=== PATIENT | female | born 1985 | race Caucasian/White ===

== ENCOUNTER → 2016-11-25 | Outpatient (CLI) | payer MEDICAID ==
[~2016-11-25] MED LIST: AC325T PO; ACHD5005 PO; ALBU17AE3 IH; AMIT50TA3 PO; ASPI-586 PO; BIRTH CONTROL PILL PO; BUTA1TAB46 PO; CETI10TA17 PO; CIPR500T4 PO; CITA20TA7 PO; CLIN-62 PO; CLN2C40 PV; CPR500T PO; CYCL10TA9 PO; DICL18CA PO; DICY10CA12 PO; DIVA250T2 PO; DIVA500T15 PO; FAMO-119 PO; FLT05NA16 NSEACH; FLUC100T6 PO; FLUO20CA42 PO; FLUT16SP22 NSEACH; HCT25T PO; HYDR-2856 PO; HYDR-3816; HYDR1TAB PO; IBP800T PO; LEVO200T30 PO; LEVO300T5 PO; LVT.15T PO; LVT.1T PO; MELO15TA39 PO; METR500T21 PO; MONT10TA24 PO; MPR22TI TP; MTP50T PO; MULT-963 PO; MULT1TAB69 PO; MUPI1OIN5 NS; NITR100C3 PO; OMEP-10 PO; ONDA4TAB11 PO; ONDA8TAB13 PO; ONDA8TAB9 PO; ONDAN4ODT PO; ONDN4T PO; ORPH100T PO; OXYC-12 PO; PANT40TA3 PO; PREN1TAB39 PO; PROM25SU10 PR; RIZA10TA23 PO; SILV25CR TP; SULF1TAB38 PO; TRAM50TA2 PO; TRM50T PO; VARE1TAB17 PO; VENL150T4 PO; ZLP10T PO; ZOLP10TA5; baclofen
--- NOTE | 2016-11-26 08:15 | ECHOCARDIOGRAPHY REPORT ---
PROCEDURE PHYSICIAN: HONG SIMPSON DATE OF PROCEDURE: 11/25/2016 TWO DIMENSIONAL ECHOCARDIOGRAM REPORT PRIMARY PHYSICIAN: OTHER PHYSICIAN: REFERRING PHYSICIAN: Dr. Mcfadden ORDERING PHYSICIAN: INDICATION FOR THE PROCEDURE: Chest pain. MEASUREMENTS DERIVED VALUES LV DIAMETER (LAX) NORMALS NORMALS Diastolic 3.3 (3.6-5.2) Eject. Fract. 60% (60%+/-6%) Systolic (2.3-3.9) Diastolic Vol. % Shortening (0.22-0.42) Systolic Vol. Aortic Root IVS THICKNESS Diastolic 1.1 (0.6-1.1) LVPW THICKNESS Diastolic 1.1 (0.6-1.1) LA DIAMETER Systolic 3.4 (2.1-3.7) FINDINGS: 1. Technical quality is good. 2. The left ventricle is normal in size with normal contractility. Systolic function appeared to be normal. Estimated ejection fraction 60%. 3. The left atrium is normal in size. No clot or thrombus were seen within the left atrium. 4. The right atrium and right ventricle are normal in size. No clot or thrombus were seen within the right side. 5. Mitral valve is normal in morphology with mild mitral regurgitation noted by color Doppler flow. No mitral valve prolapse. No mitral valve stenosis. 6. Aortic valve is trileaflet with normal opening and closing pattern. No significant aortic stenosis or regurgitation was seen. 7. Tricuspid valve is normal in morphology with mild tricuspid regurgitation noted by color Doppler flow. Doppler across tricuspid valve estimated pulmonary artery pressure of 8+ right atrial pressure. 8. Pulmonic valve is functioning normally. 9. A small pericardial effusion with no hemodynamic significance was noted. IN CONCLUSION: 1. Normal left ventricular size and systolic function. Estimated ejection fraction 60%. 2. Mild mitral and tricuspid regurgitation. 3. Estimated pulmonary artery pressure of 15 mmHg. 4. Small pericardial effusion of no hemodynamic significance noted on this study, improved when compared to the study of 2016. Job ID: [id number] Dictated Date: 11/25/2016 18:18:49 Watch Repair Person Date: 11/26/2016 08:12:17 / jordan
== END ==
LOC: CARD 08:26
PROVIDERS: ATTEND Physician Assistant
DX: E05.00 Thyrotoxicosis with diffuse goiter without thyrotoxic crisis or storm (principal); I10 Essential (primary) hypertension; E78.1 Pure hyperglyceridemia; R07.9 Chest pain, unspecified
CPT/HCPCS: 93306

== ENCOUNTER 2016-12-17 14:57 | Emergency (ER) | payer MEDICAID ==
[~2016-12-17] VITALS: Ht 172.7 cm; Wt 122.5 kg
[~2016-12-17 14:57] MED LIST changes: -ZOLP10TA5
[2016-12-17] MEDS ORDERED: ZOLP10TA5 (15:34)
--- NOTE | 2016-12-17 16:19 | ED Headache ---
General Chief Complaint: Head/Cervical Problems Stated Complaint: MIGRAINE Nursing Triage Note: c/o migraine x 3 days Nursing Sepsis Screen: No Definite Risk Source: patient Exam Limitations: no limitations History of Present Illness Time seen by provider: 16:18 Initial Comments To ER with frontal migraine for 3 days. She has a history of frequent migraines and this was similar to previous. No injuries. No fevers or chills. Timing/Duration: other (3 days) Severity/Quality: pressure Location: frontal Prior Headaches/Recent Trauma: frequent headaches Associated Symptoms: denies symptoms Allergies and Home Medications Allergies Coded Allergies: Bacitracin Zinc (Unverified Allergy, Intermediate, HIVES, RESP PROBLMEMS, 01/25/11) Penicillins (Unverified Allergy, Intermediate, RASH,, 01/25/11) bacitracin (Unverified Allergy, Intermediate, HIVES, RESP PROBLMEMS, ) gramicidin D (Unverified Allergy, Intermediate, HIVES, RESP PROBLMEMS, 05/28) methylprednisolone sod succ (Unverified Allergy, Intermediate, RESP DIFFICULTY, 01/25/11) neomycin sulfate (Unverified Allergy, Intermediate, HIVES, RESP PROBLMEMS , 01/25/11) polymyxin B (Unverified Allergy, Intermediate, HIVES, RESP PROBLMEMS, 01/25) polymyxin B sulfate (Unverified Allergy, Intermediate, HIVES, RESP PROBLMEMS, 01/25/11) Metronidazole HCl (Unverified Adverse Reaction, Mild, N/V, 01/25/11) metronidazole (Unverified Adverse Reaction, Mild, N/V, 01/25/11) Home Medications Aspirin 81 Mg Tablet.dr, 81 MG PO DAILY, (Reported) Famotidine 20 Mg Tablet, 20 MG PO BID, #30 Ref 0 Prescribed by: BOB CAM on 08/04/16 1254 Fluoxetine HCl 20 Mg Capsule, 20 MG PO DAILY, (Reported) Levothyroxine Sodium 300 Mcg Tablet, 300 MCG PO DAILY, #30 Ref 3 LAST FILLED 10/19/15 #60 Prescribed by: RIVERA GONSALES on 12/31/15 1157 Meloxicam 15 Mg Tablet, 15 MG PO DAILY, (Reported) Montelukast Sodium 10 Mg Tablet, 10 MG PO DAILY PRN for ALLERGIES, (Reported) LAST FILLED 09/21/15 #30 Pantoprazole Sodium 40 Mg Tablet.dr, 40 MG PO DAILY, (Reported) Zolpidem Tartrate 10 Mg Tablet, #30 (Reported) Constitutional: see HPI Eyes: No Symptoms Reported Ears, Nose, Mouth, Throat: no symptoms reported Respiratory: no symptoms reported Cardiovascular: no symptoms reported Genitourinary: no symptoms reported Musculoskeletal: no symptoms reported Skin: no symptoms reported Psychiatric/Neurological: See HPI, Headache Past Biwjaeg-Ewuvgg-Kemrnl Hx Patient Social History Alcohol Use: Denies Use Recreational Drug Use: No Smoking Status: Current Everyday Smoker Recent Foreign Travel: No Contact w/Someone Who Travel: No Recent Infectious Disease Expo: No Recent Hopitalizations: Yes Immunizations Up To Date Tetanus Booster (TDap): More than 5yrs Date of Pneumonia Vaccine: December 28, 2012 Date of Influenza Vaccine: Apr 18, 2011 Seasonal Allergies Seasonal Allergies: Yes Surgeries HX Surgeries: Yes (ovarian cyst) Surgeries: Orthopedic Respiratory Hx Respiratory Disorders: Yes Respiratory Disorders: Emphysema Cardiovascular Hx Cardiac Disorders: No Cardiac Disorders: Chronic Edema/Swelling, Hypertension Neurological Hx Neurological Disorders: Yes (PT STATES SHE ALWAYS HAS NUMBNESS AND TINGLING ALL OVER HER BODY OFF AND ON) Neurological Disorders: Headaches /Migraines, Neuropathy 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 System Hx 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 Disorders: No 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 Genitourinary Hx Genitourinary Disorders: Yes Gastrointestinal Hx Gastrointestinal Disorders: Yes Gastrointestinal Disorders: Crohns Disease Musculoskeletal Hx Musculoskeletal Disorders: Yes (CHRONIC GENERALIZED PAIN ) Musculoskeletal Disorders: Chronic Back Pain Endocrine Hx Endocrine Disorders: Yes (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) Endocrine Disorders: Hypothyroidsim HEENT HX ENT Disorders: No Cancer Hx Cancer: No Psychosocial Hx Psychiatric Problems: Yes Behavioral Health Disorders: Sleep Difficulties, Anxiety, Depression Integumentary HX Skin/Integumentary Disorder: No Blood Transfusions Hx Blood Disorders: No Family Medical History Significant Family History: No Pertinent Family Hx Family Medial History: Asthma son CANC 19 MOTHER (CANCER OF GALLBLADDER AND UTERUS) Diabetes mellitus G8 SISTER FH: cancer Hypertension 19 FATHER Psychosocial problem G8 SISTER (ANXIETY) Thyroid disease 19 MOTHER (HYPERTHYROID) Physical Exam Vital Signs Vital Sign - Last 12Hours 12/17/16 15:31 Temp 99.2 Pulse 88 Resp 18 B/P (MAP) 152/105 Pulse Ox 95 O2 Delivery Room Air Capillary Refill : Less Than 3 Seconds General Appearance: WD/WN, no apparent distress HEENT: PERRL/EOMI, normal ENT inspection Neck: non-tender, full range of motion Respiratory: no respiratory distress, no accessory muscle use Gastrointestinal: non tender, soft Extremities: normal range of motion, non-tender Psychiatric: alert, oriented x 3 Crainal Nerves: normal hearing, normal speech, PERRL Skin: normal color, warm/dry Progress/Results/Core Measures Results/Orders My Orders Orders - PHIL MARK APRN Prochlorperazine Injection (Compazine In (12/17/16 16:30) Diphenhydramine Injection (Benadryl Inje (12/17/16 16:30) Ketorolac Injection (Toradol Injection) (12/17/16 16:30) Vital Signs/I&O Vital Sign - Last 12Hours 12/17/16 15:31 Temp 99.2 Pulse 88 Resp 18 B/P (MAP) 152/105 Pulse Ox 95 O2 Delivery Room Air Blood Pressure Mean: 121 Departure Impression Impression: Primary Impression: Headache Disposition: 01 HOME, SELF-CARE Condition: Improved Departure-Patient Inst. Decision time for Depature: 16:26 Referrals: NO,LOCAL PHYSICIAN (PCP/Family) Primary Care Physician Patient Instructions: Headache, Adult (DC) Add. Discharge Instructions: 1. Return to ER for any worsening See your doctor next week All discharge instructions reviewed with patient and/or family. Voiced understanding. PHIL MARK APRN December 17, 2016 16:19
[2016-12-17] MEDS ORDERED: diphenhydrAMINE 50 MG/ML INJ (BENADRYL) IM ONE (16:30)
[2016-12-17] MEDS ORDERED: KETOROLAC 60 MG/2 ML VIAL IM ONE (16:30)
[2016-12-17] MEDS ORDERED: PROCHLORPERAZINE 10 MG/2ML INJ (COMPAZINE) IM ONE (16:30)
[2016-12-17 18:23] VITALS: BP 132/98
== END 2016-12-17 18:23 | disposition home or self-care (01) ==
LOC: EDUNIT# 14:57 → ER 15:00
DX: R51 Headache (principal); I10 Essential (primary) hypertension; F17.210 Nicotine dependence, cigarettes, uncomplicated; Z79.82 Long term (current) use of aspirin; Z79.899 Other long term (current) drug therapy
CPT/HCPCS: 96372; 99285

== ENCOUNTER → 2017-01-18 | Emergency (ER) | payer MEDICAID ==
[~2017-01-18] MED LIST changes: +ZOLP10TA5
== END | disposition left against medical advice (07) ==
LOC: EDUNIT# 15:19 → ER 15:20
DX: G43.909 Migraine, unspecified, not intractable, without status migrainosus (principal); Z53.21 Procedure and treatment not carried out due to patient leaving prior to being seen by health care provider

== ENCOUNTER 2017-02-18 15:37 | Emergency (ER) | payer OTHER, MEDICAID ==
[~2017-02-18] VITALS: Ht 172.7 cm; Wt 117.0 kg
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
[2017-02-18] MEDS ORDERED: HYDROcodone/APAP 7.5 MG/325 MG (LORTAB, LORCET PLUS) TABLET PO STA (17:43)
[2017-02-18] MEDS ORDERED: CYCLOBENZAPRINE 10 MG (FLEXERIL) TAB PO STA (17:43)
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
[2017-02-18] MEDS ORDERED: CYCL10TA9 PO (18:02)
[2017-02-18] MEDS ORDERED: TRAM50TA2 PO (18:02)
[2017-02-18] MEDS ORDERED: RX-CYCLOBENZAPRINE 10 MG (FLEXERIL) TAB PPK#3 PO STA (18:05)
[2017-02-18] MEDS ORDERED: RX-HYDROCODONE/APAP 5/325 MG #4 TAB PK PO PRN (18:15)
[2017-02-18 18:21] VITALS: BP 136/88
--- OUTSIDE RECORDS SUMMARY | 2017-02-19 16:27 | XMS REPORT | Continuity of Care Document ---
Author Author [facility] Organization [facility] Address Unknown Phone Unavailable Care Team Providers Care Dealer Development Manager Name Role Phone Jaja Berman PCP [phone] Source Comments Some departments are not documenting in the electronic medical record. If you do not see the information that you expected, contact Release of Information in the Health Information Management department at [phone] for further assistance in locating additional records.[facility] Active Allergies and Adverse Reactions Not on File Current Medications Not on file Active Problems Not on file Social History Tobacco Use Types Packs/Day Years Used Date Never Assessed Plan of Care Health Maintenance Due Date Last Done Comments Physical (Comprehensive) 1993 Exam Pertussis Vaccine 1997 Tetanus Vaccine 2003 Cervical Cancer Screening 2007 Influenza Vaccine 04/18/2017 Results from Last 3 Months Not on file
== END 2017-02-18 18:21 | disposition home or self-care (01) ==
LOC: EDUNIT# 15:37 → ER 15:39
DX: S09.90XA Unspecified injury of head, initial encounter (principal)
CPT/HCPCS: 70450; 73030; 99283

== ENCOUNTER → 2017-07-07 | Outpatient (CLI) | payer MEDICAID, OTHER ==
[~2017-07-07] MED LIST changes: +CATHETER FLUSH 10 ML SYR IV PRN; +morphine INJ 10 MG/ML 1ML (SYR OR VIAL) ONE; +morphine INJ 4 MG/ML 1 ML (VIAL/SYRINGE) IVP PRN
--- NOTE | 2017-07-07 14:54 | Diagnostic Imaging Report ---
EXAMINATION: HIDA without EF measurements Indication: Abdominal pain TECHNIQUE: After the intravenous administration of 4.7 mCi of Tc 99m Choletec, imaging over the abdomen was obtained. This was followed by administration of morphine 4 mg IV after initial nonvisualization of the gallbladder for one hour with additional 1 mCi of the radiotracer given at the same time. FINDINGS: There is homogeneous uptake in the liver with prompt bile duct without gallbladder filling seen initially. Subsequently the gallbladder from started filling after morphine administration at 65 minutes. Bowel activity is seen at 20 minutes. IMPRESSION: There is delayed gallbladder filling which may relate to chronic cholecystitis or biliary dyskinesia. No evidence of acute cholecystitis. Correlate clinically. Dictated by: Dictated on workstation # [id number]
== END ==
LOC: CARD 10:14
PROVIDERS: ATTEND Surgery
DX: K82.8 Other specified diseases of gallbladder (principal)
CPT/HCPCS: 78226

== ENCOUNTER 2017-07-09 05:41 | Outpatient (CLI) | payer OTHER ==
[~2017-07-09] VITALS: Ht 172.7 cm; Wt 121.6 kg
[~2017-07-09 05:41] MED LIST changes: -CATHETER FLUSH 10 ML SYR IV PRN; -morphine INJ 10 MG/ML 1ML (SYR OR VIAL) ONE; -morphine INJ 4 MG/ML 1 ML (VIAL/SYRINGE) IVP PRN
[2017-07-09] MEDS ORDERED: LEVO300T5 PO (10:19)
== END 2017-07-09 10:36 ==
LOC: PREOP 05:41
PROVIDERS: ATTEND Surgery
DX: Z01.818 Encounter for other preprocedural examination (principal); K82.8 Other specified diseases of gallbladder; K21.9 Gastro-esophageal reflux disease without esophagitis

== ENCOUNTER 2017-07-14 11:40 | Day surgery (SDC) | payer OTHER ==
[~2017-07-14] VITALS: Ht 172.7 cm; Wt 121.6 kg
[2017-07-14 11:44] VITALS: BP 155/96
[2017-07-14] MEDS ORDERED: CLINDAMYCIN 600 MG/NS 50 ML IVPB IV ONE ×2 (12:30)
[2017-07-14] MEDS ORDERED: fentaNYL INJECTION 100 MCG/2 ML AMP IV ONE ×2 (13:00→14:30)
[2017-07-14] MEDS ORDERED: FAMOTIDINE 20MG/2ML IV (PEPCID) IV ONE (13:00)
[2017-07-14] MEDS ORDERED: LACTATED RINGERS 1,000 ML IV PRN ×2 (13:00→14:16)
[2017-07-14] MEDS ORDERED: BUP/EPI 0.5% 1:200,000 (MARCAINE) 10ML VIAL IJ ONE (13:04)
[2017-07-14] MEDS ORDERED: LIDOCAINE PF 2% 5 ML (XYLOCAINE) VIAL ONE (13:22)
[2017-07-14] MEDS ORDERED: proPOfol 200 MG/20 ML (DIPRIVAN) VIAL IV ONE (13:22)
[2017-07-14] MEDS ORDERED: ONDANSETRON 4 MG/2 ML (SDV) Z0FRAN ONE (13:22)
[2017-07-14] MEDS ORDERED: SUCCINYLCHOLINE INJ 100 MG/5 ML SYR ONE (13:22)
[2017-07-14] MEDS ORDERED: ROCURONIUM 50 MG/5 ML (ZEMURON) VIAL IV ONE ×2 (13:22→15:03)
[2017-07-14] MEDS ORDERED: fentaNYL INJECTION 100 MCG/2 ML AMP ONE (13:23)
[2017-07-14] MEDS ORDERED: MIDAZOLAM 2 MG/2 ML (VERSED) VIAL ONE (13:23)
[2017-07-14] MEDS ORDERED: ONDANSETRON 4 MG/2 ML (SDV) Z0FRAN IV ONE (14:30)
[2017-07-14] MEDS ORDERED: LACTATED RINGERS 1,000 ML IV ONE (14:50)
[2017-07-14] MEDS ORDERED: NEOSTIGMINE (BLOXIVERZ ) 1 MG/1ML 10 ML VIAL ONE (16:02)
[2017-07-14] MEDS ORDERED: GLYCOPYRROLATE 0.2 MG/ML (ROBINUL) 2 ML VIAL ONE (16:02)
[2017-07-14] MEDS ORDERED: morphine INJ 10 MG/ML 1ML (SYR OR VIAL) ONE (16:08)
--- NOTE | 2017-07-14 16:13 | Progress Note-Pre Operative ---
Pre-Operative Progress Note H&P Reviewed The H&P was reviewed, patient examined and no changes noted. Date Seen by Provider: Jul 14, 2017 Time Seen by Provider: 14:00 Date H&P Reviewed: Jul 14, 2017 Time H&P Reviewed: 14:00 Pre-Operative Diagnosis: GERD, biliary dyskinesia JAKOB CRUZ MD Jul 14, 2017 4:12 pm
--- NOTE | 2017-07-14 16:17 | Progress Note-Post Operative ---
Post-Operative Progess Note Surgeon (s)/Stone Unloader (s) Surgeon JAKOB CRUZ MD Stone Unloader: none Pre-Operative Diagnosis GERD, biliary dyskinesia Post-Operative Diagnosis biliary dyskinesia, reflux esophagitis(class B), small HH(1.5cm), moderate gastritis. Procedure & Operative Findings Date of Procedure 07/14/17 Procedure Performed/Findings laparoscopic cholecystectomy. EGD with bx. Anesthesia Type GET Estimated Blood Loss Estimated blood loss (mL): minimal Specimens/Packing Specimens Removed gallbladder, GE jxn, antrum JAKOB CRUZ MD Jul 14, 2017 4:17 pm
[2017-07-14] MEDS ORDERED: TRAM50TA2 PO (16:19)
--- NOTE | 2017-07-14 16:20 | Discharge Inst-Surgical ---
D/C Lap Instructions-ANTHONY New, Converted, or Re-Newed RX: RX on Chart Follow Up Appt in 2 weeks Activity as tolerated No driving for 24 hours No driving while on pain medications Incentive Spirometry use every 2 hours while awake Regular Diet Symptoms to Report: Fever over 101 degree F, Nausea/Vomiting Infection Signs and Symptoms to report: Increased redness, Foul odor of wound, Increased drainage Bathing instructions: May shower Operative Area Clean/Dry; Keep incision clean/dry If any problems/questions: Contact your physician or go to Emergency Room JAKOB CRUZ MD Jul 14, 2017 4:20 pm
[2017-07-14] MEDS ORDERED: SEVOFLURANE (ULTANE) 15 ML INHAL SOLN ONE (16:23)
[2017-07-14] MEDS: morphine INJ 10 MG/ML 1ML (SYR OR VIAL) IVP PRN ×3 (16:28→16:38)
[2017-07-14] MEDS ORDERED: HYDROcodone/APAP 5 MG/325 MG (LORTAB) TAB PO ONE (16:30)
[2017-07-14] MEDS ORDERED: ONDANSETRON 4 MG/2 ML (SDV) Z0FRAN IVP PRN ×2 (16:30)
[2017-07-14] MEDS ORDERED: morphine INJ 10 MG/ML 1ML (SYR OR VIAL) IVP PRN (16:30)
[2017-07-14] MEDS ORDERED: ACETAMINOPHEN 325 MG TABLET/CAPLET (TYLENOL) PO PRN (16:30)
[2017-07-14] MEDS ORDERED: fentaNYL INJECTION 100 MCG/2 ML AMP IVP PRN (16:30)
[2017-07-14 17:10] VITALS: BP 128/84
[2017-07-14 17:40] VITALS: BP 146/88
[2017-07-14 18:10] VITALS: BP 140/82
[2017-07-14 18:15] VITALS: BP 140/82
--- NOTE | 2017-07-15 00:56 | OPERATIVE REPORT ---
DATE OF SERVICE: 07/14/2017 ATTENDING PRIMARY CARE PHYSICIAN: Dr. Mcfadden. PREOPERATIVE DIAGNOSIS: Symptomatic biliary dyskinesia. GERD POSTOPERATIVE DIAGNOSES: Symptomatic biliary dyskinesia, reflux esophagitis class B, small hiatal hernia approximately 1.5 to 2 cm in size, moderate gastritis. PROCEDURES: Laparoscopic cholecystectomy and EGD with biopsy. SURGEON: Jose Echevarria M.D. ANESTHESIA: General endotracheal. ESTIMATED BLOOD LOSS: Minimal. FINDINGS: Mild gallbladder wall inflammation and dilatation. Reflux esophagitis class B. No strictures. Small hiatal hernia approximately 1.5 to 2 cm in size. DISPOSITION: The patient tolerated the procedure well. INDICATION FOR PROCEDURE: The patient is a 31-year-old female with multiple medical problems. First, she reports in 2009, she developed hyperthyroidism and underwent radioactive iodine testing and diagnosed with Graves disease and treated medically. Since that time, she has become hypothyroid. She states that during this time frame, she has been fatigued and gained a significant amount of weight. She is on high-dose Levothyroxine at 350 mcg daily. She reports in the past two years, she has had right upper abdominal quadrant pain usually after meals. She would also do self testing and take in greasy foods and would have reproduction of symptoms. She underwent an ultrasound, which did not show any gallstones. She then underwent a HIDA scan, which showed a normal ejection fraction; however, would have a severe reproduction of symptoms after the administration of a Kinevac analog. This is consistent with a biliary dyskinesia. She also has had issues with reflux with epigastric burning sensation and crampy pain usually after spicy or greasy foods as well as [place] based products. She does have risk factors including smoking. DESCRIPTION OF PROCEDURE: The patient was brought to the operating room, laid supine on the table. After adequate IV pain and sedative medications and general endotracheal intubation, the abdomen was prepped and draped in a standard surgical fashion. A 0.5% Marcaine with epinephrine was used to anesthetize the overlying skin in the left upper abdominal quadrant and a transverse skin incision was made using a 15 blade. An 0 silk suture was applied to the medial aspect of the incision for retraction and a Veress needle inserted with a low opening pressure of 0 mmHg and the abdomen was insufflated to 15 mmHg pressure. The Veress needle removed and a 5 mm Xcel trocar placed followed by a 5 mm 45-degree angle laparoscope visualizing the peritoneal cavity. A full quadrant abdominal exploration was performed. There was mild chronic gallbladder wall inflammation as well as a dilated gallbladder identified. No stones identified. What was visualized of the omentum, stomach, liver appeared normal. Under direct visualization, we then proceeded to place a supraumbilical 10-mm port after the skin and peritoneum were anesthetized using 0.5% Marcaine with epinephrine and a transverse skin incision made using a 15-blade. In a similar manner, a right upper abdominal quadrant 5 mm port was placed. The patient was then placed in a reverse Trendelenburg position as well as plane right side up, left side down. The fundus of the gallbladder was then retracted anteriorly and superiorly. The hepatoduodenal ligament was then opened using cautery on the hook instrument as well as blunt dissection. The entire critical view of safety was identified including the triangle of Calot as well as the cystic duct and artery identified going into the gallbladder as well as the cystic plate behind the proximal gallbladder. A timeout was then taken and the cystic duct and artery were then clipped proximally and distally and cut with EndoShears. The gallbladder was then dissected off the liver bed using cautery on the hook instrument with visualization, good hemostasis as well as no leaking ducts of Luschka. The gallbladder was removed through the 10 mm port site using an EndoCatch bag. The 10 mm port site was then closed using a [id number] 0 Vicryl suture on a UR needle. The abdomen was desufflated and the remaining ports removed. All skin incisions were closed using 4-0 Monocryl running subcuticular sutures. The wounds were then cleaned and covered with Dermabond. The patient tolerated the procedure well. We will start IV normal pain medication as well as a clear liquid diet. Once she is tolerating clears and has good pain control with oral pain medications and ambulating well, we will discharge her home. We then proceeded with the EGD portion of the procedure. The mouth piece was applied. The endoscope was then placed in the mouth, visualizing the pharynx and the hypopharyngeal region. The vocal cords, epiglottis and vallecula identified and appeared to be normal and the endotracheal tube was visualized going through the cords. The endoscope was then gently intubated at the esophageal opening and esophagus insufflated. The endoscope was then advanced to the first, second and third portions of the esophagus. At the level of the GE junction, a reflux esophagitis class B identified. There were no ulcers or strictures identified in this region. A biopsy was taken using forceps with visualization of good hemostasis. The endoscope was then easily advanced into the stomach. The endoscope retroflexed, visualizing a small hiatal hernia approximately 1.5 cm in size. There was a moderate severity gastritis noted towards the stomach. There were no formal ulcers, polyps or any neoplasms identified. A biopsy was taken of the stomach antrum with visualization of good hemostasis. The endoscope was then advanced to the pylorus and the first and second portions of the duodenum, which no distal obstructions identified. The endoscope was then slowly withdrawn while taking a second look and suctioning of residual air with no additional findings. The patient tolerated this portion of the procedure well. For her reflux esophagitis, hiatal hernia and gastritis, we will recommend the necessary lifestyle and diet accommodation including small and more frequent meals, avoidance of eating at night as well as head elevation while lying supine. She also needs to avoid smoking, caffeinated beverages, spicy, greasy and acidic foods. We will also start her on Protonix 40 mg daily. 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
== END 2017-07-14 18:15 | disposition home or self-care (01) ==
LOC: SDC 11:40
PROVIDERS: ATTEND Surgery
DX: K82.8 Other specified diseases of gallbladder (principal); K21.0 Gastro-esophageal reflux disease with esophagitis; K44.9 Diaphragmatic hernia without obstruction or gangrene; K29.60 Other gastritis without bleeding; E05.90 Thyrotoxicosis, unspecified without thyrotoxic crisis or storm; J45.909 Unspecified asthma, uncomplicated; F17.210 Nicotine dependence, cigarettes, uncomplicated; Z79.899 Other long term (current) drug therapy; Z88.2 Allergy status to sulfonamides; Z88.0 Allergy status to penicillin; Z88.1 Allergy status to other antibiotic agents; Z88.8 Allergy status to other drugs, medicaments and biological substances
CPT/HCPCS: 84703; 87081

== ENCOUNTER → 2018-07-21 | Outpatient (CLI) | payer MEDICAID, OTHER ==
[~2018-07-21] MED LIST changes: -CITA20TA7 PO; +CITA20TA9 PO; +HYDR-34; -HYDR-3816; +METR-197 PO; -METR500T21 PO
--- NOTE | 2018-07-21 14:57 | Diagnostic Imaging Report ---
PROCEDURE: US Non-ob pelvis comp/trans. TECHNIQUE: Multiple realtime grayscale images were obtained of the pelvis in various projections endovaginally. Transabdominal imaging was also performed. INDICATION: Menorrhagia. The uterus measures 7.9 x 5.6 x 4.3 cm. Endometrium is 5 mm thickness. No myometrial mass is seen. Ovaries cannot be visualized, likely owing to overlying bowel gas. No adnexal mass or free fluid is seen. There are small cervical nabothian cyst. Impression: Nonvisualized ovaries. The study is otherwise unremarkable. Dictated by: Dictated on workstation # [id number]
== END ==
LOC: RAD 10:13
PROVIDERS: ATTEND Obstetrics & Gynecology
DX: N92.0 Excessive and frequent menstruation with regular cycle (principal); N94.5 Secondary dysmenorrhea
CPT/HCPCS: 76830; 76856

== ENCOUNTER 2018-07-27 11:09 | Emergency (ER) | payer MEDICAID ==
[~2018-07-27] VITALS: Ht 172.7 cm; Wt 119.3 kg
--- OUTSIDE RECORDS SUMMARY | 2018-07-27 11:14 | XMS REPORT | Clinical Summary ---
Author Author [facility] Organization [facility] Address Unknown Phone Unavailable Care Team Providers Care Senior Information Security Architect Name Role Phone Jaja Berman MD PCP Source Comments Some departments are not documenting in the electronic medical record. If you do not see the information that you expected, contact Release of Information in the Health Information Management department at [phone] for further assistance in locating additional records.[facility] Allergies Not on File Medications Not on file Active Problems Not on file Social History Date Tobacco Use Types Packs/Day Years Used Never Assessed Sex Assigned at Date Recorded Not on file Industry Job Start Date Occupation Not on file Not on file Not on file Travel End Travel History Travel Start No recent travel history available. Last Filed Vital Signs Not on file Plan of Treatment Health Maintenance Due Date Last Done Comments PHYSICAL (COMPREHENSIVE) 1993 EXAM HIV SCREENING 2001 DTAP/TDAP VACCINES (1 - 2004 Tdap) CERVICAL CANCER SCREENING 2016 INFLUENZA VACCINE 03/18/2018 Results Not on filefrom Last 3 Months
--- OUTSIDE RECORDS SUMMARY | 2018-07-27 11:33 | XMS REPORT | Continuity of Care Document ---
Author Author [facility] Address Unknown Phone Unavailable Allergies Active Description Code Type Severity Reaction Onset Reported/Identified Relationship to Patient Clinical Status Yes BACITRACIN BACITRACIN UNKNOWN Yes FLAGYL FLAGYL MODERATE Yes NEOSPORIN ([id number]) NEOSPORIN (SAROJ-BANDAR-P UNKNOWN Yes PENICILLIN G POTASSIUM PENICILLIN G POTASSI MODERATE Yes BACITRACIN UNKNOWN OTHER Yes FLAGYL MODERATE DERMATOLOGICAL - HIV Yes NEOSPORIN ([id number]) UNKNOWN OTHER Yes PENICILLIN G POTASSIUM MODERATE OTHER Yes SOLU-MEDROL MODERATE OTHER Yes amoxicillin Drug Allergy N/A N/A 11/17/2008 Yes Solu-Medrol Drug Allergy N/A N/A 11/17/2008 Yes amoxicillin Drug Allergy 11/17/2008 Yes Solu-Medrol Drug Allergy 11/17/2008 Yes hydrocortisone topical Drug Allergy N/A N/A 06/16/2009 Yes hydrocortisone Drug Allergy 06/16/2009 Yes hydrocortisone topical Drug Allergy 06/16/2009 Yes Flagyl Drug Allergy N/A N/A 08/22/2011 Yes Neosporin Drug Allergy N/A N/A 08/22/2011 Yes Flagyl Drug Allergy 08/22/2011 Yes Neosporin Drug Allergy 08/22/2011 Yes Penicillins Drug Allergy N/A N/A 05/14/2012 Yes Penicillins Drug Allergy 05/14/2012 Yes bacitracin [id number] Drug Allergy Moderate HIVES, RESP PRO 07/09/2017 Yes Bacitracin Zinc [id number] Drug Allergy Moderate HIVES, RESP PRO 2016 Yes gramicidin D [id number] Drug Allergy Moderate HIVES, RESP PRO 07/09/2017 Yes methylprednisolone sod succ [id number] Drug Allergy Moderate RESP DIFFICULTY 07/09/2017 Yes neomycin sulfate [id number] Drug Allergy Moderate HIVES, RESP PRO 2016 Yes Penicillins [id number] Drug Allergy Moderate RASH, 07/09/2017 Yes polymyxin B [id number] Drug Allergy Moderate HIVES, RESP PRO 07/09/2017 Yes polymyxin B sulfate [id number] Drug Allergy Moderate HIVES, RESP PRO 07/09/2017 Yes metronidazole [id number] Drug Allergy Mild N/V 07/09/2017 Yes Metronidazole HCl [id number] Drug Allergy Mild N/V 07/09/2017 Medications Medication Packaging Start Date Stop Date Route Dosage Sig FENTANYL AMP INJ 100 MCG/2CC MCG 07/15/2016 ONCE&0714 LACTATED RINGERS 1000CC IV BAG INJ 0 ml 07/15/2016 07/22/2016 CONTINUOUSEVERY 0 Hour ONDANSETRON VIAL INJ 4 MG/2CC (ZOFRAN 2CC VIAL) MG 09/09/2016 09/09/2016 ONCE&1817 FENTANYL AMP INJ 100 MCG/2CC MCG 09/09/2016 ONCE&1817 NORMAL SALINE 1000CC IV BAG INJ 0.9 % (NS 1000CC IV BAG) ml 09/09/2016 09/09/2016 ONCE&1817 KETOROLAC VIAL INJ 30 MG/CC (TORADOL VIAL) MG 09/09/2016 09/09/2016 PRN ONCE PROMETHAZINE VIAL INJ 25 MG/CC (PHENERGAN VIAL) MG 09/09/2016 09/09/2016 ONCE&2014 FENTANYL AMP INJ 100 MCG/2CC MCG 09/09/2016 ONCE&2014 FENTANYL INJ 100 MCG/2CC VIAL MCG 03/20/2017 03/20/2017 ONCE&0736 LACTATED RINGERS 1000CC IV BAG INJ ml 03/20/2017 03/21/2017 CONTINUOUSEVERY 0 Hour DICYCLOMINE 2CC AMP INJ 10 MG/CC (BENTYL 2CC AMP) MG 06/02/2017 06/02/2017 ONCE&1022 ONDANSETRON VIAL INJ 4 MG/2CC (ZOFRAN 2CC VIAL) MG 06/02/2017 06/02/2017 ONCE&1022 FENTANYL INJ 100 MCG/2CC VIAL MCG 06/02/2017 06/02/2017 ONCE&1022 ONDANSETRON VIAL INJ 4 MG/2CC (ZOFRAN 2CC VIAL) MG 07/12/2017 07/12/2017 ONCE&0119 NORMAL SALINE 1000CC IV BAG INJ 0.9 % (NS 1000CC IV BAG) ml 07/12/2017 07/27/2017 CONTINUOUSEVERY 0 Hour FENTANYL INJ 100 MCG/2CC VIAL MCG 07/12/2017 07/12/2017 ONCE&0120 FENTANYL INJ 100 MCG/2CC VIAL MCG 07/12/2017 07/12/2017 ONCE&0255 FENTANYL INJ 100 MCG/2CC VIAL MCG 07/12/2017 07/12/2017 ONCE&0255 FENTANYL INJ 100 MCG/2CC VIAL MCG 07/12/2017 07/12/2017 ONCE&0256 KETOROLAC VIAL INJ 30 MG/CC (TORADOL VIAL) MG 10/10/2017 10/10/2017 ONCE&0924 ALPRAZOLAM TAB 0.25 MG (XANAX) MG 10/10/2017 10/10/2017 PRN ONCE KETOROLAC VIAL INJ 30 MG/CC (TORADOL VIAL) MG 03/08/2018 03/08/2018 ONCE&1731 FLUCONAZOLE TAB 150 MG (DIFLUCAN) MG 07/18/2018 07/18/2018 ONCE&1110 DIPHENHYDRAMINE VIAL INJ 50 MG/CC (BENADRYL VIAL) MG 07/18/2018 07/18/2018 PRN ONCE Problems Date Dx Coded Attending Type Code Diagnosis Diagnosed By 01/26/2008 Ot 785.1 03/29/2008 ADILIA WHYTE DO 242.90 Hyperthyroidism Nos 03/29/2008 242.90 Hyperthyroidism Nos 03/29/2008 242.90 Hyperthyroidism Nos 03/29/2008 ADILIA WHYTE DO 242.90 Hyperthyroidism Nos 03/29/2008 ADILIA WHYTE DO 242.90 Hyperthyroidism Nos 03/29/2008 242.90 Hyperthyroidism Nos 03/29/2008 242.90 Hyperthyroidism Nos 03/29/2008 TIEN KIMBLE PA-C 242.90 Hyperthyroidism Nos 03/29/2008 ANSHUL CARBAJAL APRN 242.90 Hyperthyroidism Nos 03/29/2008 ADILIA WHYTE DO 242.90 Hyperthyroidism Nos 03/29/2008 242.90 Hyperthyroidism Nos 03/29/2008 242.90 Hyperthyroidism Nos 03/29/2008 242.90 Hyperthyroidism Nos 03/29/2008 242.90 Hyperthyroidism Nos 03/29/2008 242.90 Hyperthyroidism Nos 03/29/2008 242.90 Hyperthyroidism Nos 03/29/2008 242.90 Hyperthyroidism Nos 03/29/2008 242.90 Hyperthyroidism Nos 03/29/2008 242.90 Hyperthyroidism Nos 03/29/2008 LENKA DDS, GORDON B 242.90 Hyperthyroidism Nos 03/29/2008 BRIAN DDS, MAX J 242.90 Hyperthyroidism Nos 03/29/2008 WHYTE DO, ADILIA K 242.90 Hyperthyroidism Nos 03/29/2008 MCKEON CASHERO ADMINISTRATIVE MANAGER, DAMIEN N 242.90 Hyperthyroidism Nos 03/29/2008 WHYTE DO, ADILIA K 242.90 Hyperthyroidism Nos 03/29/2008 MCKEON CASHERO ADMINISTRATIVE MANAGER, DAMIEN N 242.90 Hyperthyroidism Nos 03/29/2008 MANJINDER ADMINISTRATIVE MANAGER, RENAN Ortega 242.90 Hyperthyroidism Nos 03/29/2008 WHYTE DO, ADILIA K 242.90 Hyperthyroidism Nos 03/29/2008 BRIAN DDS, WARRNE Kuo 242.90 Hyperthyroidism Nos 03/29/2008 WHYTE DO, ADILIA K 242.90 Hyperthyroidism Nos 03/29/2008 WHYTE DO, ADILIA K 242.90 Hyperthyroidism Nos 03/29/2008 WON CARMONA, MARIUSZ B 242.90 Hyperthyroidism Nos 03/29/2008 APOORVA RAMIREZ, DANIEL A 242.90 Hyperthyroidism Nos 03/29/2008 RAVEN PEREZN, ANSHUL Ortega 242.90 Hyperthyroidism Nos 03/29/2008 YOVANI PEREZN, VONNIE A 242.90 Hyperthyroidism Nos 03/29/2008 WHYTE DO, ADILIA K 242.90 Hyperthyroidism Nos 03/29/2008 VENKATESH ADMINISTRATIVE MANAGER, EMILY Garcia 242.90 Hyperthyroidism Nos 03/29/2008 HOLLY KEVIN, RONNIE E 242.90 Hyperthyroidism Nos 03/29/2008 YOVANI TOVAR, VONNIE A 242.90 Hyperthyroidism Nos 03/29/2008 HOLLY KEVIN, RONNIE E 242.90 Hyperthyroidism Nos 03/29/2008 ZULEIKA DPM, CHRISTOPHER 242.90 Hyperthyroidism Nos 03/29/2008 YOVANI PEREZN, VONNIE A 242.90 Hyperthyroidism Nos 03/29/2008 WHYTE DO, ADILIA K 242.90 Hyperthyroidism Nos 03/29/2008 HOLLY KEVIN, RONNIE E 242.90 Hyperthyroidism Nos 03/29/2008 ZULEIKA DPM, CHRISTOPHER 242.90 Hyperthyroidism Nos 03/29/2008 HOLLY KEVIN, RONNIE E 242.90 Hyperthyroidism Nos 03/29/2008 WHYTE DO, ADILIA K 242.90 Hyperthyroidism Nos 03/29/2008 ZULEIKA DPM, CHRISTOPHER 242.90 Hyperthyroidism Nos 03/29/2008 CHRISTOPHER TO DPM 242.90 Hyperthyroidism Nos 03/29/2008 WHYTE DO, ADILIA K 242.90 Hyperthyroidism Nos 03/29/2008 MANJINDER PEREZN, RENAN R 242.90 Hyperthyroidism Nos 04/08/2008 WHYTE DO, ADILIA K 244.9 Hypothyroidism 04/08/2008 244.9 Hypothyroidism 04/08/2008 244.9 Hypothyroidism 04/08/2008 WHYTE DO, ADILIA K 244.9 Hypothyroidism 04/08/2008 WHYTE DO, ADILIA K 244.9 Hypothyroidism 04/08/2008 244.9 Hypothyroidism 04/08/2008 244.9 Hypothyroidism 04/08/2008 TIEN KIMBLE PA-C 244.9 Hypothyroidism 04/08/2008 ANSHUL CARBAJAL APRN R 244.9 Hypothyroidism 04/08/2008 WHYTE DO, ADILIA K 244.9 Hypothyroidism 04/08/2008 244.9 Hypothyroidism 04/08/2008 244.9 Hypothyroidism 04/08/2008 244.9 Hypothyroidism 04/08/2008 244.9 Hypothyroidism 04/08/2008 244.9 Hypothyroidism 04/08/2008 244.9 Hypothyroidism 04/08/2008 244.9 Hypothyroidism 04/08/2008 244.9 Hypothyroidism 04/08/2008 244.9 Hypothyroidism 04/08/2008 LENKA SANCHEZS, GORDON B 244.9 Hypothyroidism 04/08/2008 BRIAN DDSMAX 244.9 Hypothyroidism 04/08/2008 WHYTE DO, ADILIA K 244.9 Hypothyroidism 04/08/2008 LINDA SIGALA APRN, DAMIEN N 244.9 Hypothyroidism 04/08/2008 WHYTE DO, ADILIA K 244.9 Hypothyroidism 04/08/2008 LINDA SIGALA APRN, DAMIEN N 244.9 Hypothyroidism 04/08/2008 MANJINDER TOVAR RENAN R 244.9 Hypothyroidism 04/08/2008 WHYTE DO, ADILIA K 244.9 Hypothyroidism 04/08/2008 BRIAN DDS, WARREN Kuo 244.9 Hypothyroidism 04/08/2008 WHYTE DO, ADILIA K 244.9 Hypothyroidism 04/08/2008 WHYTE DO, ADILIA K 244.9 Hypothyroidism 04/08/2008 MARIUSZ UPTON LCPC 244.9 Hypothyroidism 04/08/2008 APOORVA RAMIREZ, DANIEL A 244.9 Hypothyroidism 04/08/2008 ANSHUL CARBAJAL APRN R 244.9 Hypothyroidism 04/08/2008 YOVANI ADMINISTRATIVE MANAGER, VONNIE A 244.9 Hypothyroidism 04/08/2008 WHYTE DO, ADILIA K 244.9 Hypothyroidism 04/08/2008 VENKATESH ADMINISTRATIVE MANAGER, EMILY L 244.9 Hypothyroidism 04/08/2008 HOLLY KEVIN, RONNIE E 244.9 Hypothyroidism 04/08/2008 YOVANI ADMINISTRATIVE MANAGER, VONNIE A 244.9 Hypothyroidism 04/08/2008 HOLLY KEVIN, RONNIE E 244.9 Hypothyroidism 04/08/2008 ZULEIKA DPM, CHRISTOPHER 244.9 Hypothyroidism 04/08/2008 YOVANI ADMINISTRATIVE MANAGER, VONNIE A 244.9 Hypothyroidism 04/08/2008 WHYTE DO, ADILIA K 244.9 Hypothyroidism 04/08/2008 HOLLY KEVIN, RONNIE E 244.9 Hypothyroidism 04/08/2008 ZULEIKA DPM, CHRISTOPHER 244.9 Hypothyroidism 04/08/2008 HOLLY KEVIN, RONNIE E 244.9 Hypothyroidism 04/08/2008 WHYTE DO, ADILIA K 244.9 Hypothyroidism 04/08/2008 ZULEIKA DPM, CHRISTOPHER 244.9 Hypothyroidism 04/08/2008 ZULEIKA DPM, CHRISTOPHER 244.9 Hypothyroidism 04/08/2008 JOSUE WHYTE DOA K 244.9 Hypothyroidism 04/08/2008 MANJINDER ADMINISTRATIVE MANAGERPAIGE LordINA R 244.9 Hypothyroidism 04/26/2008 ADILIA WHYTE DO V25.49 Surveillance Of Other Contraceptive Method 04/26/2008 V25.49 Surveillance Of Other Contraceptive Method 04/26/2008 V25.49 Surveillance Of Other Contraceptive Method 04/26/2008 ADILIA WHYTE DO V25.49 Surveillance Of Other Contraceptive Method 04/26/2008 ADILIA WHYTE DO V25.49 Surveillance Of Other Contraceptive Method 04/26/2008 V25.49 Surveillance Of Other Contraceptive Method 04/26/2008 V25.49 Surveillance Of Other Contraceptive Method 04/26/2008 TIEN KIMBLE PA-C V25.49 Surveillance Of Other Contraceptive Method 04/26/2008 ANSHUL CARBAJAL APRN V25.49 Surveillance Of Other Contraceptive Method 04/26/2008 ADILIA WHYTE DO V25.49 Surveillance Of Other Contraceptive Method 04/26/2008 V25.49 Surveillance Of Other Contraceptive Method 04/26/2008 V25.49 Surveillance Of Other Contraceptive Method 04/26/2008 V25.49 Surveillance Of Other Contraceptive Method 04/26/2008 V25.49 Surveillance Of Other Contraceptive Method 04/26/2008 V25.49 Surveillance Of Other Contraceptive Method 04/26/2008 V25.49 Surveillance Of Other Contraceptive Method 04/26/2008 V25.49 Surveillance Of Other Contraceptive Method 04/26/2008 V25.49 Surveillance Of Other Contraceptive Method 04/26/2008 V25.49 Surveillance Of Other Contraceptive Method 04/26/2008 LENKA SANCHEZS, GORDON Qiu V25.49 Surveillance Of Other Contraceptive Method 04/26/2008 BRIAN SANCHEZS, MAX Fraga V25.49 Surveillance Of Other Contraceptive Method 04/26/2008 WHYTE DO ADILIA K V25.49 Surveillance Of Other Contraceptive Method 04/26/2008 MCKEON CASHERO ADMINISTRATIVE MANAGER, DAMIEN N V25.49 Surveillance Of Other Contraceptive Method 04/26/2008 WHYTE DO, ADILIA K V25.49 Surveillance Of Other Contraceptive Method 04/26/2008 MCKEON CASHERO ADMINISTRATIVE MANAGER, DAMIEN N V25.49 Surveillance Of Other Contraceptive Method 04/26/2008 RENAN DUNBAR APRN V25.49 Surveillance Of Other Contraceptive Method 04/26/2008 WHYTE DO ADILIA K V25.49 Surveillance Of Other Contraceptive Method 04/26/2008 BRIAN SANCHEZS, WARREN Kuo V25.49 Surveillance Of Other Contraceptive Method 04/26/2008 WHYTE DO, ADILIA K V25.49 Surveillance Of Other Contraceptive Method 04/26/2008 WHYTE DO ADILIA K V25.49 Surveillance Of Other Contraceptive Method 04/26/2008 MARIUSZ UPTON LCPC V25.49 Surveillance Of Other Contraceptive Method 04/26/2008 APOORVA RAMIREZ, DANIEL A V25.49 Surveillance Of Other Contraceptive Method 04/26/2008 ANSHUL CARBAJAL APRN V25.49 Surveillance Of Other Contraceptive Method 04/26/2008 YOVANIPop TOVAR VONNIE A V25.49 Surveillance Of Other Contraceptive Method 04/26/2008 WHYTE DO ADILIA K V25.49 Surveillance Of Other Contraceptive Method 04/26/2008 EMILY RIDDLE APRN V25.49 Surveillance Of Other Contraceptive Method 04/26/2008 RONNIE BARRERA RN E V25.49 Surveillance Of Other Contraceptive Method 04/26/2008 YOVANI TOVAR VONNIE A V25.49 Surveillance Of Other Contraceptive Method 04/26/2008 RONNIE BARRERA RN E V25.49 Surveillance Of Other Contraceptive Method 04/26/2008 ZULEIKA DPM, CHRISTOPHER V25.49 Surveillance Of Other Contraceptive Method 04/26/2008 VONNIE PINA APRN V25.49 Surveillance Of Other Contraceptive Method 04/26/2008 ADILIA WHYTE DO V25.49 Surveillance Of Other Contraceptive Method 04/26/2008 RONNIE BARRERA RN V25.49 Surveillance Of Other Contraceptive Method 04/26/2008 ZULEIKA DPM, CHRISTOPHER V25.49 Surveillance Of Other Contraceptive Method 04/26/2008 RONNIE BARRERA RN V25.49 Surveillance Of Other Contraceptive Method 04/26/2008 ADILIA WHYTE DO V25.49 Surveillance Of Other Contraceptive Method 04/26/2008 ZULEIKA DPM, CHRISTOPHER V25.49 Surveillance Of Other Contraceptive Method 04/26/2008 ZULEIKA DPM, CHRISTOPHER V25.49 Surveillance Of Other Contraceptive Method 04/26/2008 ADILIA WHYTE DO V25.49 Surveillance Of Other Contraceptive Method 04/26/2008 RENAN DUNBAR APRN V25.49 Surveillance Of Other Contraceptive Method 05/19/2008 ADILIA WHYTE DO 242.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 05/19/2008 242.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 05/19/2008 242.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 05/19/2008 ADILIA WHYTE DO 242.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 05/19/2008 ADILIA WHYTE DO 242.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 05/19/2008 242.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 05/19/2008 242.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 05/19/2008 TIEN KIMBLE PA-C 242.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 05/19/2008 ANSHUL CARBAJAL APRN 242.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 05/19/2008 ADILIA WHYTE DO 242.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 05/19/2008 242.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 05/19/2008 242.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 05/19/2008 242.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 05/19/2008 242.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 05/19/2008 242.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 05/19/2008 242.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 05/19/2008 242.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 05/19/2008 242.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 05/19/2008 242.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 05/19/2008 LENKA SANCHEZS, GORDON B 242.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 05/19/2008 BRIAN SANCHEZS, MAX Fraga 242.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 05/19/2008 WHYTE DO, ADILIA K 242.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 05/19/2008 OCTAVIA KIM APRNCY N 242.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 05/19/2008 WHYTE DO, ADILIA K 242.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 05/19/2008 LINDA SIGALA APRN DAMIEN N 242.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 05/19/2008 RENAN DUNBAR APRN R 242.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 05/19/2008 WHYTE DO, ADILIA K 242.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 05/19/2008 BRIAN SANCHEZS, WARREN Kuo 242.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 05/19/2008 WHYTE DO, ADILIA K 242.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 05/19/2008 WHYTE DO, ADILIA K 242.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 05/19/2008 WON CARMONA, MARIUSZ B 242.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 05/19/2008 APOORVA RAMIREZ, DANIEL Pickens 242.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 05/19/2008 ANSHUL CARBAJAL APRN R 242.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 05/19/2008 VONNIE PINA APRN 242.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 05/19/2008 WHYTE DO, ADILIA K 242.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 05/19/2008 VENKATESH ADMINISTRATIVE MANAGER, EMILY L 242.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 05/19/2008 HOLLY KEVIN, RONNIE E 242.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 05/19/2008 YOVANI TOVAR, VONNIE A 242.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 05/19/2008 HOLLY KEVIN, RONNIE E 242.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 05/19/2008 ZULEIKA DPM, CHRISTOPHER 242.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 05/19/2008 YOVANI TOVAR, VONNIE A 242.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 05/19/2008 WHYTE DO, ADILIA K 242.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 05/19/2008 HOLLY KEVIN, RONNIE E 242.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 05/19/2008 ZULEIKA DPM, CHRISTOPHER 242.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 05/19/2008 HOLLY KEVIN, RONNIE E 242.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 05/19/2008 WHYTE DO, ADILIA K 242.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 05/19/2008 ZULEIKA DPM, CHRISTOPHER 242.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 05/19/2008 ZULEIKA DPM, CHRISTOPHER 242.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 05/19/2008 WHYTE DO, ADILIA K 242.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 05/19/2008 MANJINDER TOVAR RENAN R 242.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 06/06/2008 WHYTE DO, ADILIA K 724.5 Backache Unspecified 06/06/2008 724.5 Backache Unspecified 06/06/2008 724.5 Backache Unspecified 06/06/2008 WHYTE DO, ADILIA K 724.5 Backache Unspecified 06/06/2008 WHYTE DO, ADILIA K 724.5 Backache Unspecified 06/06/2008 724.5 Backache Unspecified 06/06/2008 724.5 Backache Unspecified 06/06/2008 SHYANNE HER, TIEN Fernandez 724.5 Backache Unspecified 06/06/2008 RAVEN TOVAR, ANSHUL R 724.5 Backache Unspecified 06/06/2008 WHYTE DO, ADILIA K 724.5 Backache Unspecified 06/06/2008 724.5 Backache Unspecified 06/06/2008 724.5 Backache Unspecified 06/06/2008 724.5 Backache Unspecified 06/06/2008 724.5 Backache Unspecified 06/06/2008 724.5 Backache Unspecified 06/06/2008 724.5 Backache Unspecified 06/06/2008 724.5 Backache Unspecified 06/06/2008 724.5 Backache Unspecified 06/06/2008 724.5 Backache Unspecified 06/06/2008 GORDON OG DDS 724.5 Backache Unspecified 06/06/2008 MAX TORRES DDS 724.5 Backache Unspecified 06/06/2008 WHYTE DO, ADILIA K 724.5 Backache Unspecified 06/06/2008 LINDA JOHNSONERO ADMINISTRATIVE MANAGER, DAMIEN N 724.5 Backache Unspecified 06/06/2008 WHYTE DO, ADILIA K 724.5 Backache Unspecified 06/06/2008 LINDA JOHNSONERO ADMINISTRATIVE MANAGER, DAMIEN N 724.5 Backache Unspecified 06/06/2008 RENAN DUNBAR APRN R 724.5 Backache Unspecified 06/06/2008 WHYTE DO, ADILIA K 724.5 Backache Unspecified 06/06/2008 WARREN TORRES DDS 724.5 Backache Unspecified 06/06/2008 WHYTE DO, ADILIA K 724.5 Backache Unspecified 06/06/2008 WHYTE DO, ADILIA K 724.5 Backache Unspecified 06/06/2008 MARIUSZ UPTON LCPC B 724.5 Backache Unspecified 06/06/2008 APOORVA RAMIREZ, DANIEL Pickens 724.5 Backache Unspecified 06/06/2008 CECY CARBAJAL APRNIA R 724.5 Backache Unspecified 06/06/2008 VONNIE PINA APRN A 724.5 Backache Unspecified 06/06/2008 WHYTE DO, ADILIA K 724.5 Backache Unspecified 06/06/2008 VENKATESH ADMINISTRATIVE MANAGER, EMILY L 724.5 Backache Unspecified 06/06/2008 HOLLY RN, RONNIE E 724.5 Backache Unspecified 06/06/2008 YOVANI ADMINISTRATIVE MANAGER, VONNIE A 724.5 Backache Unspecified 06/06/2008 HOLLY RN, RONNIE E 724.5 Backache Unspecified 06/06/2008 ZULEIKA DPM, CHRISTOPHER 724.5 Backache Unspecified 06/06/2008 YOVANI ADMINISTRATIVE MANAGER, VONNIE A 724.5 Backache Unspecified 06/06/2008 WHYTE DO, ADILIA K 724.5 Backache Unspecified 06/06/2008 HOLLY RN, RONNIE E 724.5 Backache Unspecified 06/06/2008 ZULEIKA DPM, CHRISTOPHER 724.5 Backache Unspecified 06/06/2008 HOLLY RN, RONNIE E 724.5 Backache Unspecified 06/06/2008 WHYTE DO, ADILIA K 724.5 Backache Unspecified 06/06/2008 ZULEIKA DPM, CHRISTOPEHR 724.5 Backache Unspecified 06/06/2008 ZULEIKA DPM, CHRISTOPHER 724.5 Backache Unspecified 06/06/2008 WHYTE DO, ADILIA K 724.5 Backache Unspecified 06/06/2008 RENAN DUNBAR APRN R 724.5 Backache Unspecified 09/15/2008 WHYTE DO ADILIA K V25.40 Contraceptive Surveillance Unspecified 09/15/2008 V25.40 Contraceptive Surveillance Unspecified 09/15/2008 V25.40 Contraceptive Surveillance Unspecified 09/15/2008 JOSUE WHYTE DOA K V25.40 Contraceptive Surveillance Unspecified 09/15/2008 WHYTE DO, ADILIA K V25.40 Contraceptive Surveillance Unspecified 09/15/2008 V25.40 Contraceptive Surveillance Unspecified 09/15/2008 V25.40 Contraceptive Surveillance Unspecified 09/15/2008 TIEN KIMBLE PA-C V25.40 Contraceptive Surveillance Unspecified 09/15/2008 ANSHUL CARBAJAL APRN V25.40 Contraceptive Surveillance Unspecified 09/15/2008 WHYTE ADILIA DUEÑAS K V25.40 Contraceptive Surveillance Unspecified 09/15/2008 V25.40 Contraceptive Surveillance Unspecified 09/15/2008 V25.40 Contraceptive Surveillance Unspecified 09/15/2008 V25.40 Contraceptive Surveillance Unspecified 09/15/2008 V25.40 Contraceptive Surveillance Unspecified 09/15/2008 V25.40 Contraceptive Surveillance Unspecified 09/15/2008 V25.40 Contraceptive Surveillance Unspecified 09/15/2008 V25.40 Contraceptive Surveillance Unspecified 09/15/2008 V25.40 Contraceptive Surveillance Unspecified 09/15/2008 V25.40 Contraceptive Surveillance Unspecified 09/15/2008 LENKA SANCHEZS, GORDON Qiu V25.40 Contraceptive Surveillance Unspecified 09/15/2008 BRIAN SANCHEZS, MAX Fraga V25.40 Contraceptive Surveillance Unspecified 09/15/2008 WHYTE DO, ADILIA K V25.40 Contraceptive Surveillance Unspecified 09/15/2008 MCKEON CASHERO ADMINISTRATIVE MANAGER, DAMIEN N V25.40 Contraceptive Surveillance Unspecified 09/15/2008 WHYTE DO, ADILIA K V25.40 Contraceptive Surveillance Unspecified 09/15/2008 MCKEON CASHERO ADMINISTRATIVE MANAGER, DAMIEN N V25.40 Contraceptive Surveillance Unspecified 09/15/2008 RENAN DUNBAR APRN R V25.40 Contraceptive Surveillance Unspecified 09/15/2008 WHYTE DO, ADILIA K V25.40 Contraceptive Surveillance Unspecified 09/15/2008 BRIAN SANCHEZS, WARREN Kuo V25.40 Contraceptive Surveillance Unspecified 09/15/2008 WHYTE DO, ADILIA K V25.40 Contraceptive Surveillance Unspecified 09/15/2008 WHYTE DO, ADILIA K V25.40 Contraceptive Surveillance Unspecified 09/15/2008 WON CARMONA, MARIUSZ Qiu V25.40 Contraceptive Surveillance Unspecified 09/15/2008 APOORVA RAMIREZ, DANIEL A V25.40 Contraceptive Surveillance Unspecified 09/15/2008 ANSHUL CARBAJAL APRN V25.40 Contraceptive Surveillance Unspecified 09/15/2008 VONNIE PINA APRN A V25.40 Contraceptive Surveillance Unspecified 09/15/2008 WHYTE DO, ADILIA K V25.40 Contraceptive Surveillance Unspecified 09/15/2008 EMILY RIDDLE APRN V25.40 Contraceptive Surveillance Unspecified 09/15/2008 RONNIE BARRERA RN E V25.40 Contraceptive Surveillance Unspecified 09/15/2008 VONNIE PINA APRN A V25.40 Contraceptive Surveillance Unspecified 09/15/2008 RONNIE BARRERA RN E V25.40 Contraceptive Surveillance Unspecified 09/15/2008 ZULEIKA DPM, CHRISTOPHER V25.40 Contraceptive Surveillance Unspecified 09/15/2008 VONNIE PINA APRN V25.40 Contraceptive Surveillance Unspecified 09/15/2008 WHYTE ADILIA DUEÑAS K V25.40 Contraceptive Surveillance Unspecified 09/15/2008 RONNIE BARRERA RN V25.40 Contraceptive Surveillance Unspecified 09/15/2008 ZULEIKA DPM, CHRISTOPHER V25.40 Contraceptive Surveillance Unspecified 09/15/2008 HOLLY KEVIN, RONNIE E V25.40 Contraceptive Surveillance Unspecified 09/15/2008 WHYTE DO, ADILIA K V25.40 Contraceptive Surveillance Unspecified 09/15/2008 ZULEIKA DPM, CHRISTOPHER V25.40 Contraceptive Surveillance Unspecified 09/15/2008 ZULEIKA DPM, CHRISTOPHER V25.40 Contraceptive Surveillance Unspecified 09/15/2008 WHYTE JOSUE DUEÑASA K V25.40 Contraceptive Surveillance Unspecified 09/15/2008 RENAN DUNBAR APRN V25.40 Contraceptive Surveillance Unspecified 11/17/2008 ADILIA WHYTE DO 244.8 OTHER SPECIFIED ACQUIRED HYPOTHYROIDISM 11/17/2008 244.8 OTHER SPECIFIED ACQUIRED HYPOTHYROIDISM 11/17/2008 244.8 OTHER SPECIFIED ACQUIRED HYPOTHYROIDISM 11/17/2008 ADILIA WHYTE DO 244.8 OTHER SPECIFIED ACQUIRED HYPOTHYROIDISM 11/17/2008 ADILIA WHYTE DO 244.8 OTHER SPECIFIED ACQUIRED HYPOTHYROIDISM 11/17/2008 244.8 OTHER SPECIFIED ACQUIRED HYPOTHYROIDISM 11/17/2008 244.8 OTHER SPECIFIED ACQUIRED HYPOTHYROIDISM 11/17/2008 TIEN KIMBLE PA-C 244.8 OTHER SPECIFIED ACQUIRED HYPOTHYROIDISM 11/17/2008 ANSHUL CARBAJAL APRN 244.8 OTHER SPECIFIED ACQUIRED HYPOTHYROIDISM 11/17/2008 ADILIA WHYTE DO 244.8 OTHER SPECIFIED ACQUIRED HYPOTHYROIDISM 11/17/2008 244.8 OTHER SPECIFIED ACQUIRED HYPOTHYROIDISM 11/17/2008 244.8 OTHER SPECIFIED ACQUIRED HYPOTHYROIDISM 11/17/2008 244.8 OTHER SPECIFIED ACQUIRED HYPOTHYROIDISM 11/17/2008 244.8 OTHER SPECIFIED ACQUIRED HYPOTHYROIDISM 11/17/2008 244.8 OTHER SPECIFIED ACQUIRED HYPOTHYROIDISM 11/17/2008 244.8 OTHER SPECIFIED ACQUIRED HYPOTHYROIDISM 11/17/2008 244.8 OTHER SPECIFIED ACQUIRED HYPOTHYROIDISM 11/17/2008 244.8 OTHER SPECIFIED ACQUIRED HYPOTHYROIDISM 11/17/2008 244.8 OTHER SPECIFIED ACQUIRED HYPOTHYROIDISM 11/17/2008 LENKA DDS, GORDON B 244.8 OTHER SPECIFIED ACQUIRED HYPOTHYROIDISM 11/17/2008 WHITE DDS, MAX J 244.8 OTHER SPECIFIED ACQUIRED HYPOTHYROIDISM 11/17/2008 WHYTE DO, ADILIA K 244.8 OTHER SPECIFIED ACQUIRED HYPOTHYROIDISM 11/17/2008 MCKEON CASHERO ADMINISTRATIVE MANAGER, DAMIEN N 244.8 OTHER SPECIFIED ACQUIRED HYPOTHYROIDISM 11/17/2008 WHYTE DO, ADILIA K 244.8 OTHER SPECIFIED ACQUIRED HYPOTHYROIDISM 11/17/2008 MCKEON CASHERO ADMINISTRATIVE MANAGER, DAMIEN N 244.8 OTHER SPECIFIED ACQUIRED HYPOTHYROIDISM 11/17/2008 MANJINDER ADMINISTRATIVE MANAGER, RENAN R 244.8 OTHER SPECIFIED ACQUIRED HYPOTHYROIDISM 11/17/2008 WHYTE DO, ADILIA K 244.8 OTHER SPECIFIED ACQUIRED HYPOTHYROIDISM 11/17/2008 WHITE DDS, WARREN D 244.8 OTHER SPECIFIED ACQUIRED HYPOTHYROIDISM 11/17/2008 WHYTE DO, ADILIA K 244.8 OTHER SPECIFIED ACQUIRED HYPOTHYROIDISM 11/17/2008 WHYTE DO, ADILIA K 244.8 OTHER SPECIFIED ACQUIRED HYPOTHYROIDISM 11/17/2008 WON CARMONA, MARIUSZ B 244.8 OTHER SPECIFIED ACQUIRED HYPOTHYROIDISM 11/17/2008 APOORVA PHD, DANIEL A 244.8 OTHER SPECIFIED ACQUIRED HYPOTHYROIDISM 11/17/2008 RAVEN ADMINISTRATIVE MANAGER, ANSHUL R 244.8 OTHER SPECIFIED ACQUIRED HYPOTHYROIDISM 11/17/2008 YOVANI ADMINISTRATIVE MANAGER, VONNIE A 244.8 OTHER SPECIFIED ACQUIRED HYPOTHYROIDISM 11/17/2008 WHYTE DO, ADILIA K 244.8 OTHER SPECIFIED ACQUIRED HYPOTHYROIDISM 11/17/2008 VENKATESH ADMINISTRATIVE MANAGER, EMILY L 244.8 OTHER SPECIFIED ACQUIRED HYPOTHYROIDISM 11/17/2008 RONNIE BARRERA RN E 244.8 OTHER SPECIFIED ACQUIRED HYPOTHYROIDISM 11/17/2008 YOVANI PEREZN, VONNIE A 244.8 OTHER SPECIFIED ACQUIRED HYPOTHYROIDISM 11/17/2008 RONNIE BARRERA RN E 244.8 OTHER SPECIFIED ACQUIRED HYPOTHYROIDISM 11/17/2008 ZULEIKA DPM, CHRISTOPHER 244.8 OTHER SPECIFIED ACQUIRED HYPOTHYROIDISM 11/17/2008 YOVANI ADMINISTRATIVE MANAGER, VONNIE A 244.8 OTHER SPECIFIED ACQUIRED HYPOTHYROIDISM 11/17/2008 WHYTE DO, ADILIA K 244.8 OTHER SPECIFIED ACQUIRED HYPOTHYROIDISM 11/17/2008 RONNIE BARRERA RN E 244.8 OTHER SPECIFIED ACQUIRED HYPOTHYROIDISM 11/17/2008 ZULEIKA DPM, CHRISTOPHER 244.8 OTHER SPECIFIED ACQUIRED HYPOTHYROIDISM 11/17/2008 RONNIE BARRERA RN E 244.8 OTHER SPECIFIED ACQUIRED HYPOTHYROIDISM 11/17/2008 WHYTE DO, ADILIA K 244.8 OTHER SPECIFIED ACQUIRED HYPOTHYROIDISM 11/17/2008 ZULEIKA DPM, CHRISTOPHER 244.8 OTHER SPECIFIED ACQUIRED HYPOTHYROIDISM 11/17/2008 ZULEIKA DPM, CHRISTOPHER 244.8 OTHER SPECIFIED ACQUIRED HYPOTHYROIDISM 11/17/2008 ADILIA WHYTE DO K 244.8 OTHER SPECIFIED ACQUIRED HYPOTHYROIDISM 11/17/2008 RENAN DUNBAR APRN R 244.8 OTHER SPECIFIED ACQUIRED HYPOTHYROIDISM 01/27/2009 ADILIA WHYTE DO K 836.50 Closed Dislocation Of Knee Unspecified Part 01/27/2009 836.50 Closed Dislocation Of Knee Unspecified Part 01/27/2009 836.50 Closed Dislocation Of Knee Unspecified Part 01/27/2009 ADILIA WHYTE DO K 836.50 Closed Dislocation Of Knee Unspecified Part 01/27/2009 ADILIA WHYTE DO K 836.50 Closed Dislocation Of Knee Unspecified Part 01/27/2009 836.50 Closed Dislocation Of Knee Unspecified Part 01/27/2009 836.50 Closed Dislocation Of Knee Unspecified Part 01/27/2009 SHYANNE HER, TIEN Fernandez 836.50 Closed Dislocation Of Knee Unspecified Part 01/27/2009 ANSHUL CARBAJAL APRN 836.50 Closed Dislocation Of Knee Unspecified Part 01/27/2009 ADILIA WHYTE DO K 836.50 Closed Dislocation Of Knee Unspecified Part 01/27/2009 836.50 Closed Dislocation Of Knee Unspecified Part 01/27/2009 836.50 Closed Dislocation Of Knee Unspecified Part 01/27/2009 836.50 Closed Dislocation Of Knee Unspecified Part 01/27/2009 836.50 Closed Dislocation Of Knee Unspecified Part 01/27/2009 836.50 Closed Dislocation Of Knee Unspecified Part 01/27/2009 836.50 Closed Dislocation Of Knee Unspecified Part 01/27/2009 836.50 Closed Dislocation Of Knee Unspecified Part 01/27/2009 836.50 Closed Dislocation Of Knee Unspecified Part 01/27/2009 836.50 Closed Dislocation Of Knee Unspecified Part 01/27/2009 LENKA SANCHEZS, GORDON B 836.50 Closed Dislocation Of Knee Unspecified Part 01/27/2009 BRIAN TOSCANO, MAX Fraga 836.50 Closed Dislocation Of Knee Unspecified Part 01/27/2009 ADILIA WHYTE DO 836.50 Closed Dislocation Of Knee Unspecified Part 01/27/2009 LINDA SIGALA APRN, DAMIEN N 836.50 Closed Dislocation Of Knee Unspecified Part 01/27/2009 WHYTE DO, ADILIA K 836.50 Closed Dislocation Of Knee Unspecified Part 01/27/2009 LINDA SIGALA ADMINISTRATIVE MANAGER, DAMIEN N 836.50 Closed Dislocation Of Knee Unspecified Part 01/27/2009 MANJINDER ADMINISTRATIVE MANAGER, RENAN R 836.50 Closed Dislocation Of Knee Unspecified Part 01/27/2009 WHYTE DO, ADILIA K 836.50 Closed Dislocation Of Knee Unspecified Part 01/27/2009 BRIAN DDS, WARREN Kuo 836.50 Closed Dislocation Of Knee Unspecified Part 01/27/2009 WHYTE DO, ADILIA K 836.50 Closed Dislocation Of Knee Unspecified Part 01/27/2009 WHYTE DO, ADILIA K 836.50 Closed Dislocation Of Knee Unspecified Part 01/27/2009 WON COPPER TAPPER, MARIUSZ Qiu 836.50 Closed Dislocation Of Knee Unspecified Part 01/27/2009 APOORVA PHD, DANIEL A 836.50 Closed Dislocation Of Knee Unspecified Part 01/27/2009 RAVEN PEREZN, ANSHUL R 836.50 Closed Dislocation Of Knee Unspecified Part 01/27/2009 YOVANI PEREZN, VONNIE A 836.50 Closed Dislocation Of Knee Unspecified Part 01/27/2009 WHYTE DO, ADILIA K 836.50 Closed Dislocation Of Knee Unspecified Part 01/27/2009 VENKATESH TOVAR, EMILY Garcia 836.50 Closed Dislocation Of Knee Unspecified Part 01/27/2009 HOLLY KEVIN, RONNIE E 836.50 Closed Dislocation Of Knee Unspecified Part 01/27/2009 YOVANI PEREZN, VONNIE A 836.50 Closed Dislocation Of Knee Unspecified Part 01/27/2009 HOLLY KEVIN, RONNIE E 836.50 Closed Dislocation Of Knee Unspecified Part 01/27/2009 ZULEIKA HERRON, CHRISTOPHER 836.50 Closed Dislocation Of Knee Unspecified Part 01/27/2009 YOVANI PEREZN, VONNIE A 836.50 Closed Dislocation Of Knee Unspecified Part 01/27/2009 WHYTE DO, ADILIA K 836.50 Closed Dislocation Of Knee Unspecified Part 01/27/2009 HOLLY KEVIN, RONNIE E 836.50 Closed Dislocation Of Knee Unspecified Part 01/27/2009 ZULEIKA HERRON, CHRISTOPHER 836.50 Closed Dislocation Of Knee Unspecified Part 01/27/2009 HOLLY RN, RONNIE E 836.50 Closed Dislocation Of Knee Unspecified Part 01/27/2009 WHYTE DO, ADILIA K 836.50 Closed Dislocation Of Knee Unspecified Part 01/27/2009 ZULEIKA DPM, CHRISTOPHER 836.50 Closed Dislocation Of Knee Unspecified Part 01/27/2009 ZULEIKA DPM, CHRISTOPHER 836.50 Closed Dislocation Of Knee Unspecified Part 01/27/2009 WHYTE DO, ADILIA K 836.50 Closed Dislocation Of Knee Unspecified Part 01/27/2009 RENAN DUNBAR APRN 836.50 Closed Dislocation Of Knee Unspecified Part 02/09/2009 WHYTE DO, ADILIA K 041.19 Staphylococcus Infection In Conditions Classified Elsewhere And Of Unspecified Site Other Staphylococcus 02/09/2009 041.19 Staphylococcus Infection In Conditions Classified Elsewhere And Of Unspecified Site Other Staphylococcus 02/09/2009 041.19 Staphylococcus Infection In Conditions Classified Elsewhere And Of Unspecified Site Other Staphylococcus 02/09/2009 WHYTE DO, ADILIA K 041.19 Staphylococcus Infection In Conditions Classified Elsewhere And Of Unspecified Site Other Staphylococcus 02/09/2009 WHYTE DO, ADILIA K 041.19 Staphylococcus Infection In Conditions Classified Elsewhere And Of Unspecified Site Other Staphylococcus 02/09/2009 041.19 Staphylococcus Infection In Conditions Classified Elsewhere And Of Unspecified Site Other Staphylococcus 02/09/2009 041.19 Staphylococcus Infection In Conditions Classified Elsewhere And Of Unspecified Site Other Staphylococcus 02/09/2009 TIEN KIMBLE PA-C 041.19 Staphylococcus Infection In Conditions Classified Elsewhere And Of Unspecified Site Other Staphylococcus 02/09/2009 ANSHUL CARBAJAL APRN 041.19 Staphylococcus Infection In Conditions Classified Elsewhere And Of Unspecified Site Other Staphylococcus 02/09/2009 WHYTE DO, ADILIA K 041.19 Staphylococcus Infection In Conditions Classified Elsewhere And Of Unspecified Site Other Staphylococcus 02/09/2009 041.19 Staphylococcus Infection In Conditions Classified Elsewhere And Of Unspecified Site Other Staphylococcus 02/09/2009 041.19 Staphylococcus Infection In Conditions Classified Elsewhere And Of Unspecified Site Other Staphylococcus 02/09/2009 041.19 Staphylococcus Infection In Conditions Classified Elsewhere And Of Unspecified Site Other Staphylococcus 02/09/2009 041.19 Staphylococcus Infection In Conditions Classified Elsewhere And Of Unspecified Site Other Staphylococcus 02/09/2009 041.19 Staphylococcus Infection In Conditions Classified Elsewhere And Of Unspecified Site Other Staphylococcus 02/09/2009 041.19 Staphylococcus Infection In Conditions Classified Elsewhere And Of Unspecified Site Other Staphylococcus 02/09/2009 041.19 Staphylococcus Infection In Conditions Classified Elsewhere And Of Unspecified Site Other Staphylococcus 02/09/2009 041.19 Staphylococcus Infection In Conditions Classified Elsewhere And Of Unspecified Site Other Staphylococcus 02/09/2009 041.19 Staphylococcus Infection In Conditions Classified Elsewhere And Of Unspecified Site Other Staphylococcus 02/09/2009 LENKA SANCHEZS, GORDON Qiu 041.19 Staphylococcus Infection In Conditions Classified Elsewhere And Of Unspecified Site Other Staphylococcus 02/09/2009 BRIAN DDS, MAX Fraga 041.19 Staphylococcus Infection In Conditions Classified Elsewhere And Of Unspecified Site Other Staphylococcus 02/09/2009 WHYTE DO, ADILIA K 041.19 Staphylococcus Infection In Conditions Classified Elsewhere And Of Unspecified Site Other Staphylococcus 02/09/2009 MCKEON CASHERO ADMINISTRATIVE MANAGER, DAMIEN N 041.19 Staphylococcus Infection In Conditions Classified Elsewhere And Of Unspecified Site Other Staphylococcus 02/09/2009 WHYTE DO, ADILIA K 041.19 Staphylococcus Infection In Conditions Classified Elsewhere And Of Unspecified Site Other Staphylococcus 02/09/2009 MCKEON CASHERO ADMINISTRATIVE MANAGER, DAMIEN N 041.19 Staphylococcus Infection In Conditions Classified Elsewhere And Of Unspecified Site Other Staphylococcus 02/09/2009 MANJINDER ADMINISTRATIVE MANAGER, RENAN R 041.19 Staphylococcus Infection In Conditions Classified Elsewhere And Of Unspecified Site Other Staphylococcus 02/09/2009 WHYTE DO, ADILIA K 041.19 Staphylococcus Infection In Conditions Classified Elsewhere And Of Unspecified Site Other Staphylococcus 02/09/2009 BRIAN DDS, WARREN Kuo 041.19 Staphylococcus Infection In Conditions Classified Elsewhere And Of Unspecified Site Other Staphylococcus 02/09/2009 WHYTE DO, ADILIA K 041.19 Staphylococcus Infection In Conditions Classified Elsewhere And Of Unspecified Site Other Staphylococcus 02/09/2009 WHYTE DO, ADILIA K 041.19 Staphylococcus Infection In Conditions Classified Elsewhere And Of Unspecified Site Other Staphylococcus 02/09/2009 WON CARMONA, MARIUSZ Qiu 041.19 Staphylococcus Infection In Conditions Classified Elsewhere And Of Unspecified Site Other Staphylococcus 02/09/2009 APOORVA RAMIREZ, DANIEL A 041.19 Staphylococcus Infection In Conditions Classified Elsewhere And Of Unspecified Site Other Staphylococcus 02/09/2009 RAVEN ADMINISTRATIVE MANAGER, ANSHUL R 041.19 Staphylococcus Infection In Conditions Classified Elsewhere And Of Unspecified Site Other Staphylococcus 02/09/2009 YOVANI PEREZN, VONNIE A 041.19 Staphylococcus Infection In Conditions Classified Elsewhere And Of Unspecified Site Other Staphylococcus 02/09/2009 WHYTE , ADILIA K 041.19 Staphylococcus Infection In Conditions Classified Elsewhere And Of Unspecified Site Other Staphylococcus 02/09/2009 EMILY RIDDLE APRN 041.19 Staphylococcus Infection In Conditions Classified Elsewhere And Of Unspecified Site Other Staphylococcus 02/09/2009 RONNIE BARRERA RN 041.19 Staphylococcus Infection In Conditions Classified Elsewhere And Of Unspecified Site Other Staphylococcus 02/09/2009 VONNIE PINA APRN A 041.19 Staphylococcus Infection In Conditions Classified Elsewhere And Of Unspecified Site Other Staphylococcus 02/09/2009 RONNIE BARRERA RN 041.19 Staphylococcus Infection In Conditions Classified Elsewhere And Of Unspecified Site Other Staphylococcus 02/09/2009 ZULEIKA DPM, CHRISTOPHER 041.19 Staphylococcus Infection In Conditions Classified Elsewhere And Of Unspecified Site Other Staphylococcus 02/09/2009 VONNIE PINA APRN A 041.19 Staphylococcus Infection In Conditions Classified Elsewhere And Of Unspecified Site Other Staphylococcus 02/09/2009 ADILIA WHYTE DO K 041.19 Staphylococcus Infection In Conditions Classified Elsewhere And Of Unspecified Site Other Staphylococcus 02/09/2009 RONNIE BARRERA RN 041.19 Staphylococcus Infection In Conditions Classified Elsewhere And Of Unspecified Site Other Staphylococcus 02/09/2009 ZULEIKA DPM, CHRISTOPHER 041.19 Staphylococcus Infection In Conditions Classified Elsewhere And Of Unspecified Site Other Staphylococcus 02/09/2009 RONNIE BARRERA RN 041.19 Staphylococcus Infection In Conditions Classified Elsewhere And Of Unspecified Site Other Staphylococcus 02/09/2009 WHYTE , ADILIA K 041.19 Staphylococcus Infection In Conditions Classified Elsewhere And Of Unspecified Site Other Staphylococcus 02/09/2009 ZULEIKA DPM, CHRISTOPHER 041.19 Staphylococcus Infection In Conditions Classified Elsewhere And Of Unspecified Site Other Staphylococcus 02/09/2009 ZULEIKA DPM, CHRISTOPHER 041.19 Staphylococcus Infection In Conditions Classified Elsewhere And Of Unspecified Site Other Staphylococcus 02/09/2009 WHYTE , ADILIA K 041.19 Staphylococcus Infection In Conditions Classified Elsewhere And Of Unspecified Site Other Staphylococcus 02/09/2009 RENAN DUNBAR APRN R 041.19 Staphylococcus Infection In Conditions Classified Elsewhere And Of Unspecified Site Other Staphylococcus 06/16/2009 WHYTE DO, ADILIA K 691.8 Dermatitis Atopic Eczema 06/16/2009 691.8 Dermatitis Atopic Eczema 06/16/2009 691.8 Dermatitis Atopic Eczema 06/16/2009 WHYTE DO, ADILIA K 691.8 Dermatitis Atopic Eczema 06/16/2009 WHYTE DO, ADILIA K 691.8 Dermatitis Atopic Eczema 06/16/2009 691.8 Dermatitis Atopic Eczema 06/16/2009 691.8 Dermatitis Atopic Eczema 06/16/2009 SHYANNE HER, TIEN Fernandez 691.8 Dermatitis Atopic Eczema 06/16/2009 CECY CARBAJAL APRNIA R 691.8 Dermatitis Atopic Eczema 06/16/2009 WHYTE DO, ADILIA K 691.8 Dermatitis Atopic Eczema 06/16/2009 691.8 Dermatitis Atopic Eczema 06/16/2009 691.8 Dermatitis Atopic Eczema 06/16/2009 691.8 Dermatitis Atopic Eczema 06/16/2009 691.8 Dermatitis Atopic Eczema 06/16/2009 691.8 Dermatitis Atopic Eczema 06/16/2009 691.8 Dermatitis Atopic Eczema 06/16/2009 691.8 Dermatitis Atopic Eczema 06/16/2009 691.8 Dermatitis Atopic Eczema 06/16/2009 691.8 Dermatitis Atopic Eczema 06/16/2009 GORDON OG DDS B 691.8 Dermatitis Atopic Eczema 06/16/2009 MAX TORRES DDS 691.8 Dermatitis Atopic Eczema 06/16/2009 WHYTE DO, ADILIA K 691.8 Dermatitis Atopic Eczema 06/16/2009 LINDA SIGALA APRN, DAMIEN N 691.8 Dermatitis Atopic Eczema 06/16/2009 WHYTE DO, ADILIA K 691.8 Dermatitis Atopic Eczema 06/16/2009 LINDA SIGALA ADMINISTRATIVE MANAGER, DAMIEN N 691.8 Dermatitis Atopic Eczema 06/16/2009 PAIGE DUNBAR APRNINA R 691.8 Dermatitis Atopic Eczema 06/16/2009 WHYTE DO, ADILIA K 691.8 Dermatitis Atopic Eczema 06/16/2009 WARREN TORRES DDS 691.8 Dermatitis Atopic Eczema 06/16/2009 WHYTE DO, ADILIA K 691.8 Dermatitis Atopic Eczema 06/16/2009 WHYTE DO, ADILIA K 691.8 Dermatitis Atopic Eczema 06/16/2009 MARIUSZ UPTON LCPC B 691.8 Dermatitis Atopic Eczema 06/16/2009 APOORVA RAMIREZ, DANIEL A 691.8 Dermatitis Atopic Eczema 06/16/2009 ANSHUL CARBAJAL APRN R 691.8 Dermatitis Atopic Eczema 06/16/2009 YOVANI ADMINISTRATIVE MANAGER, VONNIE A 691.8 Dermatitis Atopic Eczema 06/16/2009 WHYTE DO, ADILIA K 691.8 Dermatitis Atopic Eczema 06/16/2009 VENKATESH ADMINISTRATIVE MANAGER, EMILY L 691.8 Dermatitis Atopic Eczema 06/16/2009 HOLLY KEVIN, RONNIE E 691.8 Dermatitis Atopic Eczema 06/16/2009 YOVANI ADMINISTRATIVE MANAGER, VONNIE A 691.8 Dermatitis Atopic Eczema 06/16/2009 HOLLY KEVIN, RONNIE E 691.8 Dermatitis Atopic Eczema 06/16/2009 ZULEIKA DPM, CHRISTOPHER 691.8 Dermatitis Atopic Eczema 06/16/2009 YOVANI ADMINISTRATIVE MANAGER, VONNIE A 691.8 Dermatitis Atopic Eczema 06/16/2009 WHYTE DO, ADILIA K 691.8 Dermatitis Atopic Eczema 06/16/2009 HOLLY KEVIN, RONNIE E 691.8 Dermatitis Atopic Eczema 06/16/2009 ZULEIKA DPM, CHRISTOPHER 691.8 Dermatitis Atopic Eczema 06/16/2009 HOLLY KEVIN, RONNIE E 691.8 Dermatitis Atopic Eczema 06/16/2009 WHYTE DO, ADILIA K 691.8 Dermatitis Atopic Eczema 06/16/2009 ZULEIKA DPM, CHRISTOPHER 691.8 Dermatitis Atopic Eczema 06/16/2009 ZULEIKA DPM, CHRISTOPHER 691.8 Dermatitis Atopic Eczema 06/16/2009 WHYTE DO, ADILIA K 691.8 Dermatitis Atopic Eczema 06/16/2009 PAIGE DUNBAR APRNINA R 691.8 Dermatitis Atopic Eczema 02/21/2010 WHYTE DO, ADILIA K 296.22 MO DEPRESSIVE SINGLE MODERATE 02/21/2010 296.22 MO DEPRESSIVE SINGLE MODERATE 02/21/2010 296.22 MO DEPRESSIVE SINGLE MODERATE 02/21/2010 WHYTE DO, ADILIA K 296.22 MO DEPRESSIVE SINGLE MODERATE 02/21/2010 WHYTE DO, ADILIA K 296.22 MO DEPRESSIVE SINGLE MODERATE 02/21/2010 296.22 MO DEPRESSIVE SINGLE MODERATE 02/21/2010 296.22 MO DEPRESSIVE SINGLE MODERATE 02/21/2010 TEIN KIMBLE PA-C 296.22 MO DEPRESSIVE SINGLE MODERATE 02/21/2010 ANSHUL CARBAJAL APRN 296.22 MO DEPRESSIVE SINGLE MODERATE 02/21/2010 WHYTE DO ADILIA K 296.22 MO DEPRESSIVE SINGLE MODERATE 02/21/2010 296.22 MO DEPRESSIVE SINGLE MODERATE 02/21/2010 296.22 MO DEPRESSIVE SINGLE MODERATE 02/21/2010 296.22 MO DEPRESSIVE SINGLE MODERATE 02/21/2010 296.22 MO DEPRESSIVE SINGLE MODERATE 02/21/2010 296.22 MO DEPRESSIVE SINGLE MODERATE 02/21/2010 296.22 MO DEPRESSIVE SINGLE MODERATE 02/21/2010 296.22 MO DEPRESSIVE SINGLE MODERATE 02/21/2010 296.22 MO DEPRESSIVE SINGLE MODERATE 02/21/2010 296.22 MO DEPRESSIVE SINGLE MODERATE 02/21/2010 LENKA DDS, GORDON B 296.22 MO DEPRESSIVE SINGLE MODERATE 02/21/2010 WHITE DDS, MAX J 296.22 MO DEPRESSIVE SINGLE MODERATE 02/21/2010 WHYTE DO, ADILIA K 296.22 MO DEPRESSIVE SINGLE MODERATE 02/21/2010 MCKEON CASHERO ADMINISTRATIVE MANAGER, DAMIEN N 296.22 MO DEPRESSIVE SINGLE MODERATE 02/21/2010 WHYTE DO, ADILIA K 296.22 MO DEPRESSIVE SINGLE MODERATE 02/21/2010 MCKEON CASHERO ADMINISTRATIVE MANAGER, DAMIEN N 296.22 MO DEPRESSIVE SINGLE MODERATE 02/21/2010 PAIGE DUNBAR APRNINA R 296.22 MO DEPRESSIVE SINGLE MODERATE 02/21/2010 WHYTE DO, ADILIA K 296.22 MO DEPRESSIVE SINGLE MODERATE 02/21/2010 BRIAN DDS, WARREN D 296.22 MO DEPRESSIVE SINGLE MODERATE 02/21/2010 WHYTE DO, ADILIA K 296.22 MO DEPRESSIVE SINGLE MODERATE 02/21/2010 WHYTE DO, ADILIA K 296.22 MO DEPRESSIVE SINGLE MODERATE 02/21/2010 WON CARMONA, MARIUSZ B 296.22 MO DEPRESSIVE SINGLE MODERATE 02/21/2010 APOORVA PHD, DANIEL A 296.22 MO DEPRESSIVE SINGLE MODERATE 02/21/2010 ANSHUL CARBAJAL APRN R 296.22 MO DEPRESSIVE SINGLE MODERATE 02/21/2010 VEL PINA APRNIDI A 296.22 MO DEPRESSIVE SINGLE MODERATE 02/21/2010 WHYTE DO, ADILIA K 296.22 MO DEPRESSIVE SINGLE MODERATE 02/21/2010 EMILY RIDDLE APRN L 296.22 MO DEPRESSIVE SINGLE MODERATE 02/21/2010 RONNIE BARRERA RN 296.22 MO DEPRESSIVE SINGLE MODERATE 02/21/2010 VEL PINA APRNIDI A 296.22 MO DEPRESSIVE SINGLE MODERATE 02/21/2010 RONNIE BARRERA RN E 296.22 MO DEPRESSIVE SINGLE MODERATE 02/21/2010 ZULEIAK DPRebecca, CHRISTOPHER 296.22 MO DEPRESSIVE SINGLE MODERATE 02/21/2010 VONNIE PINA APRN 296.22 MO DEPRESSIVE SINGLE MODERATE 02/21/2010 ADILIA WHYTE DO 296.22 MO DEPRESSIVE SINGLE MODERATE 02/21/2010 RONNIE BARRERA RN 296.22 MO DEPRESSIVE SINGLE MODERATE 02/21/2010 ZULEIKA DPM, CHRISTOPHER 296.22 MO DEPRESSIVE SINGLE MODERATE 02/21/2010 RONNIE BARRERA RN 296.22 MO DEPRESSIVE SINGLE MODERATE 02/21/2010 ADILIA WHYTE DO 296.22 MO DEPRESSIVE SINGLE MODERATE 02/21/2010 ZULEIKA DPM, CHRISTOPHER 296.22 MO DEPRESSIVE SINGLE MODERATE 02/21/2010 ZULEIKA DPM, CHRISTOPHER 296.22 MO DEPRESSIVE SINGLE MODERATE 02/21/2010 ADILIA WHYTE DO 296.22 MO DEPRESSIVE SINGLE MODERATE 02/21/2010 RENAN DUNBAR APRN 296.22 MO DEPRESSIVE SINGLE MODERATE 01/25/2011 Ot 590.80 PYELONEPHRITIS NOS 01/25/2011 Ot 789.00 ABDOMINAL PAIN, UNSPECIFIED SITE 05/04/2011 Ot 648.93 OTH CURR COND-ANTEPARTUM 05/04/2011 Ot 789.04 ABDOMINAL PAIN, LEFT LOWER QUADRANT 07/20/2011 Ot 616.10 VAGINITIS NOS 07/20/2011 Ot 625.9 FEM GENITAL SYMPTOMS NOS 07/20/2011 Ot 646.63 INFECTION -ANTEPARTUM 07/31/2011 ADILIA WHYTE DO 296.90 MOOD DISORDER NOS 07/31/2011 296.90 MOOD DISORDER NOS 07/31/2011 296.90 MOOD DISORDER NOS 07/31/2011 ADILIA WHYTE DO 296.90 MOOD DISORDER NOS 07/31/2011 ADILIA WHYTE DO 296.90 MOOD DISORDER NOS 07/31/2011 296.90 MOOD DISORDER NOS 07/31/2011 296.90 MOOD DISORDER NOS 07/31/2011 TIEN KIMBLE PA-C 296.90 MOOD DISORDER NOS 07/31/2011 ANSHUL CARBAJAL APRN 296.90 MOOD DISORDER NOS 07/31/2011 ADILIA WHYTE DO 296.90 MOOD DISORDER NOS 07/31/2011 296.90 MOOD DISORDER NOS 07/31/2011 296.90 MOOD DISORDER NOS 07/31/2011 296.90 MOOD DISORDER NOS 07/31/2011 296.90 MOOD DISORDER NOS 07/31/2011 296.90 MOOD DISORDER NOS 07/31/2011 296.90 MOOD DISORDER NOS 07/31/2011 296.90 MOOD DISORDER NOS 07/31/2011 296.90 MOOD DISORDER NOS 07/31/2011 296.90 MOOD DISORDER NOS 07/31/2011 LENKA DDS, GORDON B 296.90 MOOD DISORDER NOS 07/31/2011 WHITE DDS, MAX Fraga 296.90 MOOD DISORDER NOS 07/31/2011 WHYTE DO, ADILIA K 296.90 MOOD DISORDER NOS 07/31/2011 MCKEON CASHERO ADMINISTRATIVE MANAGER, DAMIEN N 296.90 MOOD DISORDER NOS 07/31/2011 WHYTE DO, ADILIA K 296.90 MOOD DISORDER NOS 07/31/2011 MCKEON CASHERO ADMINISTRATIVE MANAGER, DAMIEN N 296.90 MOOD DISORDER NOS 07/31/2011 MANJINDER PEREZNRENAN R 296.90 MOOD DISORDER NOS 07/31/2011 WHYTE DO, ADILIA K 296.90 MOOD DISORDER NOS 07/31/2011 BRIAN DDS, WARREN Kuo 296.90 MOOD DISORDER NOS 07/31/2011 WHYTE DO, ADILIA K 296.90 MOOD DISORDER NOS 07/31/2011 WHYTE DO, ADILIA K 296.90 MOOD DISORDER NOS 07/31/2011 MARIUSZ UPTON LCPC B 296.90 MOOD DISORDER NOS 07/31/2011 APOORVA PHD, DANIEL A 296.90 MOOD DISORDER NOS 07/31/2011 ANSHUL CARBAJAL APRN 296.90 MOOD DISORDER NOS 07/31/2011 YOVANI ADMINISTRATIVE MANAGER, VONNIE A 296.90 MOOD DISORDER NOS 07/31/2011 WHYTE DO, ADILIA K 296.90 MOOD DISORDER NOS 07/31/2011 EMILY RIDDLE APRN 296.90 MOOD DISORDER NOS 07/31/2011 HOLLY KEVIN, RONNIE E 296.90 MOOD DISORDER NOS 07/31/2011 YOVANI TOVAR, VONNIE A 296.90 MOOD DISORDER NOS 07/31/2011 HOLLY KEVIN, RONNIE E 296.90 MOOD DISORDER NOS 07/31/2011 SAUL TO DPMIN 296.90 MOOD DISORDER NOS 07/31/2011 YOVANI APRN, VONNIE A 296.90 MOOD DISORDER NOS 07/31/2011 WHYTE DO, ADILIA K 296.90 MOOD DISORDER NOS 07/31/2011 HOLLY KEVIN, RONNIE E 296.90 MOOD DISORDER NOS 07/31/2011 ZULEIKA HERRON, CHRISTOPHER 296.90 MOOD DISORDER NOS 07/31/2011 HOLLY KEVIN RONNIE Shanks 296.90 MOOD DISORDER NOS 07/31/2011 WHYTE DO, ADILIA K 296.90 MOOD DISORDER NOS 07/31/2011 ZULEIKA DPM, CHRISTOPHER 296.90 MOOD DISORDER NOS 07/31/2011 ZULEIKA DPM, CHRISTOPHER 296.90 MOOD DISORDER NOS 07/31/2011 WYHTE DO, ADILIA K 296.90 MOOD DISORDER NOS 07/31/2011 RENAN DUNBAR APRN 296.90 MOOD DISORDER NOS 08/02/2011 WHYTE DO, ADILIA K 787.02 Nausea Alone 08/02/2011 WHYTE DO, ADILIA K V22.1 , Normal Other 08/02/2011 787.02 Nausea Alone 08/02/2011 V22.1 ,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 ADMINISTRATIVE MANAGER, DAMIEN N 354.0 CARPAL TUNNEL SYNDROME 01/29/2012 LINDA JOHNSONERO ADMINISTRATIVE MANAGER, DAMIEN N 619.0 Urinary-genital Tract Fistula Female 01/29/2012 MANJINDER ADMINISTRATIVE MANAGER, RENAN R 354.0 CARPAL TUNNEL SYNDROME 01/29/2012 MANJINDER ADMINISTRATIVE MANAGER, RENAN R 619.0 Urinary-genital Tract Fistula Female 01/29/2012 WHYTE DO, ADILIA K 354.0 CARPAL TUNNEL SYNDROME 01/29/2012 WHYTE DO, ADILIA K 619.0 Urinary-genital Tract Fistula Female 01/29/2012 WHITE DDS, WARREN D 354.0 CARPAL TUNNEL SYNDROME 01/29/2012 WHITE DDS, WARREN D 619.0 Urinary-genital Tract Fistula Female 01/29/2012 WHYTE DO, ADILIA K 354.0 CARPAL TUNNEL SYNDROME 01/29/2012 WHYTE DO, ADILIA K 619.0 Urinary-genital Tract Fistula Female 01/29/2012 WHYTE DO, ADILIA K 354.0 CARPAL TUNNEL SYNDROME 01/29/2012 WHYTE DO, ADILIA K 619.0 Urinary-genital Tract Fistula Female 01/29/2012 WON CARMONA, MARIUSZ B 354.0 CARPAL TUNNEL SYNDROME 01/29/2012 WON CARMONA, MARIUSZ B 619.0 Urinary-genital Tract Fistula Female 01/29/2012 APOORVA RAMIREZ, DANIEL A 354.0 CARPAL TUNNEL SYNDROME 01/29/2012 APOORVA RAMIREZ, DANIEL A 619.0 Urinary-genital Tract Fistula Female 01/29/2012 RAVEN PEREZN, ANSHUL R 354.0 CARPAL TUNNEL SYNDROME 01/29/2012 RAVEN PEREZN, ANSHUL R 619.0 Urinary-genital Tract Fistula Female 01/29/2012 YOVANI TOVAR, VONNIE A 354.0 CARPAL TUNNEL SYNDROME 01/29/2012 YOVANI PEREZN VONNIE A 619.0 Urinary-genital Tract Fistula Female 01/29/2012 WHYTE DO, ADILIA K 354.0 CARPAL TUNNEL SYNDROME 01/29/2012 WHYTE DO, ADILIA K 619.0 Urinary-genital Tract Fistula Female 01/29/2012 EMILY RIDDLE APRN 354.0 CARPAL TUNNEL SYNDROME 01/29/2012 YEISON RIDDLE APRNNYA L 619.0 Urinary-genital Tract Fistula Female 01/29/2012 RONNIE BARRERA RN 354.0 CARPAL TUNNEL SYNDROME 01/29/2012 RONNIE BARRERA RN E 619.0 Urinary-genital Tract Fistula Female 01/29/2012 YOVANI ADMINISTRATIVE MANAGER, VONNIE A 354.0 CARPAL TUNNEL SYNDROME 01/29/2012 YOVANI ADMINISTRATIVE MANAGER, VONNIE A 619.0 Urinary-genital Tract Fistula Female 01/29/2012 RONNIE BARRERA RN E 354.0 CARPAL TUNNEL SYNDROME 01/29/2012 RONNIE BARRERA RN E 619.0 Urinary-genital Tract Fistula Female 01/29/2012 ZULEIKA DPM, CHRISTOPHER 354.0 CARPAL TUNNEL SYNDROME 01/29/2012 ZULEIKA DPM, CHRISTOPHER 619.0 Urinary-genital Tract Fistula Female 01/29/2012 YOVANI ADMINISTRATIVE MANAGER, VONNIE A 354.0 CARPAL TUNNEL SYNDROME 01/29/2012 YOVANI ADMINISTRATIVE MANAGER, VONNIE A 619.0 Urinary-genital Tract Fistula Female 01/29/2012 WHYTE DO, ADILIA K 354.0 CARPAL TUNNEL SYNDROME 01/29/2012 WHYTE DO, ADILIA K 619.0 Urinary-genital Tract Fistula Female 01/29/2012 RONNIE BARRERA RN E 354.0 CARPAL TUNNEL SYNDROME 01/29/2012 RONNIE BARRERA RN E 619.0 Urinary-genital Tract Fistula Female 01/29/2012 ZULEIKA DPM, CHRISTOPHER 354.0 CARPAL TUNNEL SYNDROME 01/29/2012 ZULEIKA DPM, CHRISTOPHER 619.0 Urinary-genital Tract Fistula Female 01/29/2012 RONNIE BARRERA RN E 354.0 CARPAL TUNNEL SYNDROME 01/29/2012 HOLLY KEVIN, RONNIE E 619.0 Urinary-genital Tract Fistula Female 01/29/2012 WHYTE DO, ADILIA K 354.0 CARPAL TUNNEL SYNDROME 01/29/2012 WHYTE DO, ADILIA K 619.0 Urinary-genital Tract Fistula Female 01/29/2012 ZULEIKA DPM, CHRISTOPHER 354.0 CARPAL TUNNEL SYNDROME 01/29/2012 ZULEIKA DPM, CHRISTOPHER 619.0 Urinary-genital Tract Fistula Female 01/29/2012 ZULEIKA DPM, CHRISTOPHER 354.0 CARPAL TUNNEL SYNDROME 01/29/2012 ZULEIKA DPM, CHRISTOPHER 619.0 Urinary-genital Tract Fistula Female 01/29/2012 ADILIA WHYTE DO K 354.0 CARPAL TUNNEL SYNDROME 01/29/2012 ADILIA WHYTE DO 619.0 Urinary-genital Tract Fistula Female 01/29/2012 MANJINDER ADMINISTRATIVE MANAGER, RENAN R 354.0 CARPAL TUNNEL SYNDROME 01/29/2012 MANJINDER ADMINISTRATIVE MANAGER, RENAN R 619.0 Urinary-genital Tract Fistula Female 03/03/2012 ADILIA WHYTE DO V25.02 CONTRACEPTION - ANY METHOD 03/03/2012 ADILIA WHYTE DO V76.2 CERVICAL CANCER SCREENING (PAP SMEAR) 03/03/2012 V25.02 CONTRACEPTION - ANY METHOD 03/03/2012 V76.2 CERVICAL CANCER SCREENING (PAP SMEAR) 03/03/2012 V25.02 CONTRACEPTION - ANY METHOD 03/03/2012 V76.2 CERVICAL CANCER SCREENING (PAP SMEAR) 03/03/2012 ADILIA WHYTE DO V25.02 CONTRACEPTION - ANY METHOD 03/03/2012 ADILIA WHYTE DO V76.2 CERVICAL CANCER SCREENING (PAP SMEAR) 03/03/2012 ADILIA WHYTE DO V25.02 CONTRACEPTION - ANY METHOD 03/03/2012 ADILIA WHYTE DO V76.2 CERVICAL CANCER SCREENING (PAP SMEAR) 03/03/2012 V25.02 CONTRACEPTION - ANY METHOD 03/03/2012 V76.2 CERVICAL CANCER SCREENING (PAP SMEAR) 03/03/2012 V25.02 CONTRACEPTION - ANY METHOD 03/03/2012 V76.2 CERVICAL CANCER SCREENING (PAP SMEAR) 03/03/2012 TIEN KIMBLE PA-C V25.02 CONTRACEPTION - ANY METHOD 03/03/2012 TIEN KIMBLE PA-C V76.2 CERVICAL CANCER SCREENING (PAP SMEAR) 03/03/2012 ANSHUL CARBAJAL APRN V25.02 CONTRACEPTION - ANY METHOD 03/03/2012 ANSHUL CARBAJAL APRN R V76.2 CERVICAL CANCER SCREENING (PAP SMEAR) 03/03/2012 ADILIA WHYTE DO V25.02 CONTRACEPTION - ANY METHOD 03/03/2012 ADILIA WHYTE DO V76.2 CERVICAL CANCER SCREENING (PAP SMEAR) 03/03/2012 V25.02 CONTRACEPTION - ANY METHOD 03/03/2012 V76.2 CERVICAL CANCER SCREENING (PAP SMEAR) 03/03/2012 V25.02 CONTRACEPTION - ANY METHOD 03/03/2012 V76.2 CERVICAL CANCER SCREENING (PAP SMEAR) 03/03/2012 V25.02 CONTRACEPTION - ANY METHOD 03/03/2012 V76.2 CERVICAL CANCER SCREENING (PAP SMEAR) 03/03/2012 V25.02 CONTRACEPTION - ANY METHOD 03/03/2012 V76.2 CERVICAL CANCER SCREENING (PAP SMEAR) 03/03/2012 V25.02 CONTRACEPTION - ANY METHOD 03/03/2012 V76.2 CERVICAL CANCER SCREENING (PAP SMEAR) 03/03/2012 V25.02 CONTRACEPTION - ANY METHOD 03/03/2012 V76.2 CERVICAL CANCER SCREENING (PAP SMEAR) 03/03/2012 V25.02 CONTRACEPTION - ANY METHOD 03/03/2012 V76.2 CERVICAL CANCER SCREENING (PAP SMEAR) 03/03/2012 V25.02 CONTRACEPTION - ANY METHOD 03/03/2012 V76.2 CERVICAL CANCER SCREENING (PAP SMEAR) 03/03/2012 V25.02 CONTRACEPTION - ANY METHOD 03/03/2012 V76.2 CERVICAL CANCER SCREENING (PAP SMEAR) 03/03/2012 LENKAGORDON Granados DDS V25.02 CONTRACEPTION - ANY METHOD 03/03/2012 LENKA SANCHEZSGORDON V76.2 CERVICAL CANCER SCREENING (PAP SMEAR) 03/03/2012 MAX TORRES DDS V25.02 CONTRACEPTION - ANY METHOD 03/03/2012 MAX TORRES DDS V76.2 CERVICAL CANCER SCREENING (PAP SMEAR) 03/03/2012 ADILIA WHYTE DO V25.02 CONTRACEPTION - ANY METHOD 03/03/2012 ADILIA WHYTE DO V76.2 CERVICAL CANCER SCREENING (PAP SMEAR) 03/03/2012 DAMIEN KIM APRN V25.02 CONTRACEPTION - ANY METHOD 03/03/2012 DAMIEN KIM APRN V76.2 CERVICAL CANCER SCREENING (PAP SMEAR) 03/03/2012 ADILIA WHYTE DO V25.02 CONTRACEPTION - ANY METHOD 03/03/2012 ADILIA WHYTE DO V76.2 CERVICAL CANCER SCREENING (PAP SMEAR) 03/03/2012 DAMIEN KIM APRN V25.02 CONTRACEPTION - ANY METHOD 03/03/2012 DAMIEN KIM APRN N V76.2 CERVICAL CANCER SCREENING (PAP SMEAR) 03/03/2012 MANJINDER ADMINISTRATIVE MANAGER, RENAN R V25.02 CONTRACEPTION - ANY METHOD 03/03/2012 RENAN DUNBAR APRN R V76.2 CERVICAL CANCER SCREENING (PAP SMEAR) 03/03/2012 ADILIA WHYTE DO K V25.02 CONTRACEPTION - ANY METHOD 03/03/2012 JOSUE WHYTE DOA K V76.2 CERVICAL CANCER SCREENING (PAP SMEAR) 03/03/2012 WHITE DDS, WARREN Kuo V25.02 CONTRACEPTION - ANY METHOD 03/03/2012 WHITE DDS, WARREN Kuo V76.2 CERVICAL CANCER SCREENING (PAP SMEAR) 03/03/2012 ADILIA WHYTE DO K V25.02 CONTRACEPTION - ANY METHOD 03/03/2012 ADILIA WHYTE DO K V76.2 CERVICAL CANCER SCREENING (PAP SMEAR) 03/03/2012 ADILIA WHYTE DO V25.02 CONTRACEPTION - ANY METHOD 03/03/2012 ADILIA WHYTE DO K V76.2 CERVICAL CANCER SCREENING (PAP SMEAR) 03/03/2012 MARIUSZ UPTON LCPC V25.02 CONTRACEPTION - ANY METHOD 03/03/2012 MARIUSZ UPTON LCPC V76.2 CERVICAL CANCER SCREENING (PAP SMEAR) 03/03/2012 DANIEL GUERIN PHD V25.02 CONTRACEPTION - ANY METHOD 03/03/2012 DANIEL GUERIN PHD V76.2 CERVICAL CANCER SCREENING (PAP SMEAR) 03/03/2012 ANSHUL CARBAJAL APRN V25.02 CONTRACEPTION - ANY METHOD 03/03/2012 ANSHUL CARBAJAL APRN V76.2 CERVICAL CANCER SCREENING (PAP SMEAR) 03/03/2012 VONNIE PINA APRN V25.02 CONTRACEPTION - ANY METHOD 03/03/2012 VONNIE PINA APRN V76.2 CERVICAL CANCER SCREENING (PAP SMEAR) 03/03/2012 ADILIA WHYTE DO V25.02 CONTRACEPTION - ANY METHOD 03/03/2012 ADILIA WHYTE DO V76.2 CERVICAL CANCER SCREENING (PAP SMEAR) 03/03/2012 EMILY RIDDLE APRN V25.02 CONTRACEPTION - ANY METHOD 03/03/2012 EMILY RIDDLE APRN V76.2 CERVICAL CANCER SCREENING (PAP SMEAR) 03/03/2012 RONNIE BARRERA RN V25.02 CONTRACEPTION - ANY METHOD 03/03/2012 RONNIE BARRERA RN V76.2 CERVICAL CANCER SCREENING (PAP SMEAR) 03/03/2012 YOVANIVONNIE EMERSON APRN A V25.02 CONTRACEPTION - ANY METHOD 03/03/2012 YOVANIVONNIE EMERSON APRN V76.2 CERVICAL CANCER SCREENING (PAP SMEAR) 03/03/2012 RONNIE BARRERA RN V25.02 CONTRACEPTION - ANY METHOD 03/03/2012 RONNIE BARRERA RN V76.2 CERVICAL CANCER SCREENING (PAP SMEAR) 03/03/2012 ZULEIKA DPM, CHRISTOPHER V25.02 CONTRACEPTION - ANY METHOD 03/03/2012 ZULEIKA DPM, CHRISTOPHER V76.2 CERVICAL CANCER SCREENING (PAP SMEAR) 03/03/2012 YOVANIVONNIE EMERSON APRN V25.02 CONTRACEPTION - ANY METHOD 03/03/2012 VONNIE PINA APRN V76.2 CERVICAL CANCER SCREENING (PAP SMEAR) 03/03/2012 ADILIA WHYTE DO V25.02 CONTRACEPTION - ANY METHOD 03/03/2012 ADILIA WHYTE DO V76.2 CERVICAL CANCER SCREENING (PAP SMEAR) 03/03/2012 RONNIE BARRERA RN V25.02 CONTRACEPTION - ANY METHOD 03/03/2012 RONNIE BARRERA RN V76.2 CERVICAL CANCER SCREENING (PAP SMEAR) 03/03/2012 ZULEIKA DPMSAULIN V25.02 CONTRACEPTION - ANY METHOD 03/03/2012 ZULEIKA DPM, CHRISTOPHER V76.2 CERVICAL CANCER SCREENING (PAP SMEAR) 03/03/2012 RONNIE BARRERA RN V25.02 CONTRACEPTION - ANY METHOD 03/03/2012 RONNIE BARRERA RN V76.2 CERVICAL CANCER SCREENING (PAP SMEAR) 03/03/2012 ADILIA WHYTE DO V25.02 CONTRACEPTION - ANY METHOD 03/03/2012 ADILIA WHYTE DO V76.2 CERVICAL CANCER SCREENING (PAP SMEAR) 03/03/2012 ZULEIKA DPM, CHRISTOPHER V25.02 CONTRACEPTION - ANY METHOD 03/03/2012 ZULEIKA DPM, CHRISTOPHER V76.2 CERVICAL CANCER SCREENING (PAP SMEAR) 03/03/2012 ZULEIKA DPM, CHRISTOPHER V25.02 CONTRACEPTION - ANY METHOD 03/03/2012 ZULEIKA DPM, CHRISTOPHER V76.2 CERVICAL CANCER SCREENING (PAP SMEAR) 03/03/2012 ADILIA WHYTE DO V25.02 CONTRACEPTION - ANY METHOD 03/03/2012 ADILIA WHYTE DO V76.2 CERVICAL CANCER SCREENING (PAP SMEAR) 03/03/2012 RENAN DUNBAR APRN V25.02 CONTRACEPTION - ANY METHOD 03/03/2012 RENAN DUNBAR APRN V76.2 CERVICAL CANCER SCREENING (PAP SMEAR) 03/19/2012 ADILIA WHYTE DO 401.1 HYPERTENSION, BENIGN ESSENTIAL 03/19/2012 ADILIA WHYTE DO K 784.0 HEADACHE 03/19/2012 401.1 HYPERTENSION, BENIGN ESSENTIAL 03/19/2012 784.0 HEADACHE 03/19/2012 401.1 HYPERTENSION, BENIGN ESSENTIAL 03/19/2012 784.0 HEADACHE 03/19/2012 ADILIA WHYTE DO 401.1 HYPERTENSION, BENIGN ESSENTIAL 03/19/2012 ADILIA WHYTE DO K 784.0 HEADACHE 03/19/2012 ADILIA WHYTE DO K 401.1 HYPERTENSION, BENIGN ESSENTIAL 03/19/2012 ADILIA WHYTE DO K 784.0 HEADACHE 03/19/2012 401.1 HYPERTENSION, BENIGN ESSENTIAL 03/19/2012 784.0 HEADACHE 03/19/2012 401.1 HYPERTENSION, BENIGN ESSENTIAL 03/19/2012 784.0 HEADACHE 03/19/2012 TIEN KIMBLE PA-C 401.1 HYPERTENSION, BENIGN ESSENTIAL 03/19/2012 TIEN KIMBLE PA-C 784.0 HEADACHE 03/19/2012 ANSHUL CARBAJAL APRN R 401.1 HYPERTENSION, BENIGN ESSENTIAL 03/19/2012 ANSHUL CARBAJAL APRN R 784.0 HEADACHE 03/19/2012 ADILIA WHYTE DO 401.1 HYPERTENSION, BENIGN ESSENTIAL 03/19/2012 ADILIA WHYTE DO K 784.0 HEADACHE 03/19/2012 401.1 HYPERTENSION, BENIGN ESSENTIAL 03/19/2012 784.0 HEADACHE 03/19/2012 401.1 HYPERTENSION, BENIGN ESSENTIAL 03/19/2012 784.0 HEADACHE 03/19/2012 401.1 HYPERTENSION, BENIGN ESSENTIAL 03/19/2012 784.0 HEADACHE 03/19/2012 401.1 HYPERTENSION, BENIGN ESSENTIAL 03/19/2012 784.0 HEADACHE 03/19/2012 401.1 HYPERTENSION, BENIGN ESSENTIAL 03/19/2012 784.0 HEADACHE 03/19/2012 401.1 HYPERTENSION, BENIGN ESSENTIAL 03/19/2012 784.0 HEADACHE 03/19/2012 401.1 HYPERTENSION, BENIGN ESSENTIAL 03/19/2012 784.0 HEADACHE 03/19/2012 401.1 HYPERTENSION, BENIGN ESSENTIAL 03/19/2012 784.0 HEADACHE 03/19/2012 401.1 HYPERTENSION, BENIGN ESSENTIAL 03/19/2012 784.0 HEADACHE 03/19/2012 LENKA DDS, GORDON B 401.1 HYPERTENSION, BENIGN ESSENTIAL 03/19/2012 LENKA DDS, GORDON B 784.0 HEADACHE 03/19/2012 WHITE DDS, MAX J 401.1 HYPERTENSION, BENIGN ESSENTIAL 03/19/2012 WHITE DDS, MAX J 784.0 HEADACHE 03/19/2012 WHYTE DO, ADILAI K 401.1 HYPERTENSION, BENIGN ESSENTIAL 03/19/2012 WHYTE DO, ADILIA K 784.0 HEADACHE 03/19/2012 MCEKON ALEXNIK ADMINISTRATIVE MANAGER, DAMIEN N 401.1 HYPERTENSION, BENIGN ESSENTIAL 03/19/2012 MCKEON ALEXNIK ADMINISTRATIVE MANAGER, DAMIEN N 784.0 HEADACHE 03/19/2012 WHYTE DO, ADILIA K 401.1 HYPERTENSION, BENIGN ESSENTIAL 03/19/2012 WHYTE DO, ADILIA K 784.0 HEADACHE 03/19/2012 MCKEON ALEXERO ADMINISTRATIVE MANAGER, DAMIEN N 401.1 HYPERTENSION, BENIGN ESSENTIAL 03/19/2012 LINDA JOHNSONERO ADMINISTRATIVE MANAGER, DAMIEN N 784.0 HEADACHE 03/19/2012 MANJINDER ADMINISTRATIVE MANAGER, RENAN R 401.1 HYPERTENSION, BENIGN ESSENTIAL 03/19/2012 MANJINDER ADMINISTRATIVE MANAGER, RENAN R 784.0 HEADACHE 03/19/2012 WHYTE DO, ADILIA K 401.1 HYPERTENSION, BENIGN ESSENTIAL 03/19/2012 WHYTE DO, ADILIA K 784.0 HEADACHE 03/19/2012 WHITE DDS, WARREN D 401.1 HYPERTENSION, BENIGN ESSENTIAL 03/19/2012 WHITE DDS, WARREN D 784.0 HEADACHE 03/19/2012 WHYTE DO, ADILIA K 401.1 HYPERTENSION, BENIGN ESSENTIAL 03/19/2012 WHYTE DO, ADILIA K 784.0 HEADACHE 03/19/2012 WHYTE DO, ADILIA K 401.1 HYPERTENSION, BENIGN ESSENTIAL 03/19/2012 WHYTE DO, ADILIA K 784.0 HEADACHE 03/19/2012 WON SIGALAPCMARIUSZ B 401.1 HYPERTENSION, BENIGN ESSENTIAL 03/19/2012 WON COPPER TAPPER, MARIUSZ B 784.0 HEADACHE 03/19/2012 APOORVA PHD, DANIEL A 401.1 HYPERTENSION, BENIGN ESSENTIAL 03/19/2012 APOORVA PHD, DANIEL A 784.0 HEADACHE 03/19/2012 CARBAJAL ADMINISTRATIVE MANAGER, ANSHUL R 401.1 HYPERTENSION, BENIGN ESSENTIAL 03/19/2012 CARBAJAL ADMINISTRATIVE MANAGER, ANSHUL R 784.0 HEADACHE 03/19/2012 YOVANI ADMINISTRATIVE MANAGER, VONNIE A 401.1 HYPERTENSION, BENIGN ESSENTIAL 03/19/2012 YOVANI ADMINISTRATIVE MANAGER, VONNIE A 784.0 HEADACHE 03/19/2012 WHYTE DO, ADILIA K 401.1 HYPERTENSION, BENIGN ESSENTIAL 03/19/2012 WHYTE DO, ADILIA K 784.0 HEADACHE 03/19/2012 MADJose ADMINISTRATIVE MANAGER, EMILY L 401.1 HYPERTENSION, BENIGN ESSENTIAL 03/19/2012 MADL ADMINISTRATIVE MANAGER, EMILY L 784.0 HEADACHE 03/19/2012 HOLLY KEVIN, RONNIE E 401.1 HYPERTENSION, BENIGN ESSENTIAL 03/19/2012 HOLLY KEVIN, RONNIE E 784.0 HEADACHE 03/19/2012 YOVANI ADMINISTRATIVE MANAGER, VONNIE A 401.1 HYPERTENSION, BENIGN ESSENTIAL 03/19/2012 YOVANI ADMINISTRATIVE MANAGER, VONNIE A 784.0 HEADACHE 03/19/2012 HOLLY KEVIN, RONNIE E 401.1 HYPERTENSION, BENIGN ESSENTIAL 03/19/2012 HOLLY KEVIN, RONNIE E 784.0 HEADACHE 03/19/2012 ZULEIKA DPM, CHRISTOPHER 401.1 HYPERTENSION, BENIGN ESSENTIAL 03/19/2012 ZULEIKA DPM, CHRISTOPHER 784.0 HEADACHE 03/19/2012 YOVANI ADMINISTRATIVE MANAGER, VONNIE A 401.1 HYPERTENSION, BENIGN ESSENTIAL 03/19/2012 YOVANI ADMINISTRATIVE MANAGER, VONNIE A 784.0 HEADACHE 03/19/2012 WHYTE DO, ADILIA K 401.1 HYPERTENSION, BENIGN ESSENTIAL 03/19/2012 WHYTE DO, ADILIA K 784.0 HEADACHE 03/19/2012 HOLLY KEVIN, RONNIE E 401.1 HYPERTENSION, BENIGN ESSENTIAL 03/19/2012 HOLLY KEVIN, RONNIE E 784.0 HEADACHE 03/19/2012 ZULEIKA DPM, CHRISTOPHER 401.1 HYPERTENSION, BENIGN ESSENTIAL 03/19/2012 ZULEIKA DPM, CHRISTOPHER 784.0 HEADACHE 03/19/2012 HOLLY KEVIN, RONNIE E 401.1 HYPERTENSION, BENIGN ESSENTIAL 03/19/2012 HOLLY KEVIN, RONNIE E 784.0 HEADACHE 03/19/2012 WHYTE DO ADILIA K 401.1 HYPERTENSION, BENIGN ESSENTIAL 03/19/2012 WHYTE DO, ADILIA K 784.0 HEADACHE 03/19/2012 ZULEIKA DPM, CHRISTOPHER 401.1 HYPERTENSION, BENIGN ESSENTIAL 03/19/2012 ZULEIKA DPM, CHRISTOPHER 784.0 HEADACHE 03/19/2012 ZULEIKA DPM, CHIRSTOPHER 401.1 HYPERTENSION, BENIGN ESSENTIAL 03/19/2012 ZULEIKA DPM, CHRISTOPHER 784.0 HEADACHE 03/19/2012 WHYTE DOJOSUEA K 401.1 HYPERTENSION, BENIGN ESSENTIAL 03/19/2012 WHYTE DO, ADILIA K 784.0 HEADACHE 03/19/2012 MANJINDER ADMINISTRATIVE MANAGER, RENAN R 401.1 HYPERTENSION, BENIGN ESSENTIAL 03/19/2012 MANJINDER ADMINISTRATIVE MANAGER, RENAN R 784.0 HEADACHE 05/14/2012 JOSUE WHYTE DOA K 079.99 VIRAL SYNDROME 05/14/2012 ADILIA WHYTE DO K 244.1 OTHER POSTABLATIVE HYPOTHYROIDISM 05/14/2012 ADILIA WHYTE DO K 381.81 Eustachian Tube Dysfunction 05/14/2012 079.99 VIRAL SYNDROME 05/14/2012 244.1 OTHER POSTABLATIVE HYPOTHYROIDISM 05/14/2012 381.81 Eustachian Tube Dysfunction 05/14/2012 079.99 VIRAL SYNDROME 05/14/2012 244.1 OTHER POSTABLATIVE HYPOTHYROIDISM 05/14/2012 381.81 Eustachian Tube Dysfunction 05/14/2012 JOSUE WHYTE DOA K 079.99 VIRAL SYNDROME 05/14/2012 ADILIA WHYTE DO K 244.1 OTHER POSTABLATIVE HYPOTHYROIDISM 05/14/2012 JOSUE WHYTE DOA K 381.81 Eustachian Tube Dysfunction 05/14/2012 WHYTE DO ADILIA K 079.99 Viral Syndrome 05/14/2012 WHYTE JOSUE DUEÑASA K 244.1 OTHER POSTABLATIVE HYPOTHYROIDISM 05/14/2012 JOSUE WHYTE DOA K 381.81 Eustachian Tube Dysfunction 05/14/2012 079.99 Viral Syndrome 05/14/2012 244.1 OTHER POSTABLATIVE HYPOTHYROIDISM 05/14/2012 381.81 Eustachian Tube Dysfunction 05/14/2012 079.99 Viral Syndrome 05/14/2012 244.1 OTHER POSTABLATIVE HYPOTHYROIDISM 05/14/2012 381.81 Eustachian Tube Dysfunction 05/14/2012 TIEN KIMBLE PA-C 079.99 Viral Syndrome 05/14/2012 TIEN KIMBLE PA-C 244.1 OTHER POSTABLATIVE HYPOTHYROIDISM 05/14/2012 TIEN KIMBLE PA-C 381.81 Eustachian Tube Dysfunction 05/14/2012 CECY CARBAJAL APRNIA R 079.99 Viral Syndrome 05/14/2012 CECY CARBAJAL APRNIA R 244.1 OTHER POSTABLATIVE HYPOTHYROIDISM 05/14/2012 LORRIE CARBAJAL APRNRICIA R 381.81 Eustachian Tube Dysfunction 05/14/2012 WHYTE DO ADILIA K 079.99 Viral Syndrome 05/14/2012 WHYTE DO ADILIA K 244.1 OTHER POSTABLATIVE HYPOTHYROIDISM 05/14/2012 WHYTE DO ADILIA K 381.81 Eustachian Tube Dysfunction 05/14/2012 079.99 Viral Syndrome 05/14/2012 244.1 OTHER POSTABLATIVE HYPOTHYROIDISM 05/14/2012 381.81 Eustachian Tube Dysfunction 05/14/2012 079.99 Viral Syndrome 05/14/2012 244.1 OTHER POSTABLATIVE HYPOTHYROIDISM 05/14/2012 381.81 Eustachian Tube Dysfunction 05/14/2012 079.99 Viral Syndrome 05/14/2012 244.1 OTHER POSTABLATIVE HYPOTHYROIDISM 05/14/2012 381.81 Eustachian Tube Dysfunction 05/14/2012 079.99 Viral Syndrome 05/14/2012 244.1 OTHER POSTABLATIVE HYPOTHYROIDISM 05/14/2012 381.81 Eustachian Tube Dysfunction 05/14/2012 079.99 Viral Syndrome 05/14/2012 244.1 OTHER POSTABLATIVE HYPOTHYROIDISM 05/14/2012 381.81 Eustachian Tube Dysfunction 05/14/2012 079.99 Viral Syndrome 05/14/2012 244.1 OTHER POSTABLATIVE HYPOTHYROIDISM 05/14/2012 381.81 Eustachian Tube Dysfunction 05/14/2012 079.99 Viral Syndrome 05/14/2012 244.1 OTHER POSTABLATIVE HYPOTHYROIDISM 05/14/2012 381.81 Eustachian Tube Dysfunction 05/14/2012 079.99 Viral Syndrome 05/14/2012 244.1 OTHER POSTABLATIVE HYPOTHYROIDISM 05/14/2012 381.81 Eustachian Tube Dysfunction 05/14/2012 079.99 Viral Syndrome 05/14/2012 244.1 OTHER POSTABLATIVE HYPOTHYROIDISM 05/14/2012 381.81 Eustachian Tube Dysfunction 05/14/2012 LENKA DDS, GORDON B 079.99 Viral Syndrome 05/14/2012 LENKA DDS, GORDON B 244.1 OTHER POSTABLATIVE HYPOTHYROIDISM 05/14/2012 LENKA DDS, GORDON B 381.81 Eustachian Tube Dysfunction 05/14/2012 WHITE DDS, MAX J 079.99 Viral Syndrome 05/14/2012 WHITE DDS, MAX J 244.1 OTHER POSTABLATIVE HYPOTHYROIDISM 05/14/2012 WHITE DDS, MAX J 381.81 [place] Tube Dysfunction 05/14/2012 WHYTE JOSUE DUEÑASA K 079.99 Viral Syndrome 05/14/2012 JOSUE WHYTE DOA K 244.1 OTHER POSTABLATIVE HYPOTHYROIDISM 05/14/2012 JOSUE WHYTE DOA K 381.81 [place] Tube Dysfunction 05/14/2012 DAMIEN KIM APRN N 079.99 Viral Syndrome 05/14/2012 DAMIEN KIM APRN N 244.1 OTHER POSTABLATIVE HYPOTHYROIDISM 05/14/2012 DAMIEN KIM APRN N 381.81 [place] Tube Dysfunction 05/14/2012 WHYTE JOSUE DUEÑASA K 079.99 Viral Syndrome 05/14/2012 JOSUE WHYTE DOA K 244.1 OTHER POSTABLATIVE HYPOTHYROIDISM 05/14/2012 JOSUE WHYTE DOA K 381.81 [place] Tube Dysfunction 05/14/2012 DAMIEN KIM APRN N 079.99 Viral Syndrome 05/14/2012 DAMIEN KIM APRN N 244.1 OTHER POSTABLATIVE HYPOTHYROIDISM 05/14/2012 DAMIEN KIM APRN N 381.81 [place] T[employer] Dysfunction 05/14/2012 RENAN DUNBAR APRN R 079.99 Viral Syndrome 05/14/2012 PAIGE DUNBAR APRNINA R 244.1 OTHER POSTABLATIVE HYPOTHYROIDISM 05/14/2012 MANJINDER TOVAR RENAN R 381.81 [place] T[employer] Dysfunction 05/14/2012 ADILIA WHYTE DO K 079.99 Viral Syndrome 05/14/2012 ADILIA WHYTE DO K 244.1 OTHER POSTABLATIVE HYPOTHYROIDISM 05/14/2012 WHYTE DO, ADILIA K 381.81 [place] Tube Dysfunction 05/14/2012 WHITE DDS, WARREN D 079.99 Viral Syndrome 05/14/2012 WHITE DDS, WARREN D 244.1 OTHER POSTABLATIVE HYPOTHYROIDISM 05/14/2012 WHITE DDS, WARREN D 381.81 [place] Tube Dysfunction 05/14/2012 WHYTE DO, ADILIA K 079.99 Viral Syndrome 05/14/2012 WHYTE DO, ADILIA K 244.1 OTHER POSTABLATIVE HYPOTHYROIDISM 05/14/2012 WHYTE DO, ADILIA K 381.81 [place] Tube Dysfunction 05/14/2012 WHYTE DO, ADILIA K 079.99 Viral Syndrome 05/14/2012 WHYTE DO, ADILIA K 244.1 OTHER POSTABLATIVE HYPOTHYROIDISM 05/14/2012 WHYTE DO, ADILIA K 381.81 [place] Tube Dysfunction 05/14/2012 WON CARMONA, MARIUSZ B 079.99 Viral Syndrome 05/14/2012 WON CARMONA, MARIUSZ B 244.1 OTHER POSTABLATIVE HYPOTHYROIDISM 05/14/2012 WONREKHA CARMONA, MARIUSZ B 381.81 [place] Tube Dysfunction 05/14/2012 APOORVA PHD, DANIEL A 079.99 Viral Syndrome 05/14/2012 APOORVA PHD, DANIEL A 244.1 OTHER POSTABLATIVE HYPOTHYROIDISM 05/14/2012 APOORVA PHD, DANIEL A 381.81 [place] Tube Dysfunction 05/14/2012 CECY CARBAJAL APRNIA R 079.99 Viral Syndrome 05/14/2012 CECY CARBAJAL APRNIA R 244.1 OTHER POSTABLATIVE HYPOTHYROIDISM 05/14/2012 LORRIE CARBAJAL APRNRICIA R 381.81 [place] Tube Dysfunction 05/14/2012 VONNIE PINA APRN A 079.99 Viral Syndrome 05/14/2012 VONNIE PINA APRN A 244.1 OTHER POSTABLATIVE HYPOTHYROIDISM 05/14/2012 YOVANI TOVAR VONNIE A 381.81 [place] Tube Dysfunction 05/14/2012 WHYTE DO ADILIA K 079.99 Viral Syndrome 05/14/2012 WHYTE DO ADILIA K 244.1 OTHER POSTABLATIVE HYPOTHYROIDISM 05/14/2012 WHYTE DO ADILIA K 381.81 [place] Tube Dysfunction 05/14/2012 EIRCK RIDDLE APRNA L 079.99 Viral Syndrome 05/14/2012 NOEMIL ERICK TOVARA L 244.1 OTHER POSTABLATIVE HYPOTHYROIDISM 05/14/2012 ERICK RIDDLE APRNA L 381.81 [place] Tube Dysfunction 05/14/2012 HOLLY KEVIN, RONNIE E 079.99 Viral Syndrome 05/14/2012 HOLLY KEVIN, RONNIE E 244.1 OTHER POSTABLATIVE HYPOTHYROIDISM 05/14/2012 HOLLY KEVIN, RONNIE E 381.81 [place] Tube Dysfunction 05/14/2012 YOVANI ADMINISTRATIVE MANAGER, VONNIE A 079.99 Viral Syndrome 05/14/2012 YOVANI ADMINISTRATIVE MANAGER, VONNIE A 244.1 OTHER POSTABLATIVE HYPOTHYROIDISM 05/14/2012 YOVANI ADMINISTRATIVE MANAGER, VONNIE A 381.81 [place] T[employer] Dysfunction 05/14/2012 HOLLY KEVIN, RONNIE E 079.99 Viral Syndrome 05/14/2012 HOLLY KEVIN, RONNIE E 244.1 OTHER POSTABLATIVE HYPOTHYROIDISM 05/14/2012 HOLLY KEVIN, RONNIE E 381.81 [place] Tube Dysfunction 05/14/2012 ZULEIKA DPM, CHRISTOPHER 079.99 Viral Syndrome 05/14/2012 ZULEIKA DPM, CHRISTOPHER 244.1 OTHER POSTABLATIVE HYPOTHYROIDISM 05/14/2012 ZULEIKA DPM, CHRISTOPHER 381.81 [place] Tube Dysfunction 05/14/2012 YOVANI ADMINISTRATIVE MANAGER, VONNIE A 079.99 Viral Syndrome 05/14/2012 YOVANI ADMINISTRATIVE MANAGER, VONNIE A 244.1 OTHER POSTABLATIVE HYPOTHYROIDISM 05/14/2012 YOVANI ADMINISTRATIVE MANAGER, VONNIE A 381.81 [place] Tube Dysfunction 05/14/2012 WHYTE DOJOSUEA K 079.99 Viral Syndrome 05/14/2012 WHYTE DOJOSUEA K 244.1 OTHER POSTABLATIVE HYPOTHYROIDISM 05/14/2012 WHYTE DO ADILIA K 381.81 [place] Tube Dysfunction 05/14/2012 HOLLY KEVIN, RONNIE E 079.99 Viral Syndrome 05/14/2012 HOLLY KEVIN, RONNIE E 244.1 OTHER POSTABLATIVE HYPOTHYROIDISM 05/14/2012 HOLLY KEVIN, RONNIE E 381.81 [place] Tube Dysfunction 05/14/2012 ZULEIKA DPM, CHRISTOPHER 079.99 Viral Syndrome 05/14/2012 ZULEIKA DPM, CHRISTOPHER 244.1 OTHER POSTABLATIVE HYPOTHYROIDISM 05/14/2012 ZULEIKA DPM, CHRISTOPHER 381.81 [place] Tube Dysfunction 05/14/2012 HOLLY KEVIN, RONNIE E 079.99 Viral Syndrome 05/14/2012 HOLLY KEVIN, RONNIE E 244.1 OTHER POSTABLATIVE HYPOTHYROIDISM 05/14/2012 HOLLY KEVIN, RONNIE E 381.81 [place] Tube Dysfunction 05/14/2012 ADILIA WHYTE DO K 079.99 Viral Syndrome 05/14/2012 JOSUE WHYTE DOA K 244.1 OTHER POSTABLATIVE HYPOTHYROIDISM 05/14/2012 JOSUE WHYTE DOA K 381.81 [place] T[employer] Dysfunction 05/14/2012 ZULEIKA DPM, CHRISTOPHER 079.99 Viral Syndrome 05/14/2012 ZULEIKA DPM, CHRISTOPHER 244.1 OTHER POSTABLATIVE HYPOTHYROIDISM 05/14/2012 ZULEIKA DPM, CHRISTOPHER 381.81 Eustachian Tube Dysfunction 05/14/2012 ZULEIKA DPM, CHRISTOPHER 079.99 Viral Syndrome 05/14/2012 ZULEIKA DPM, CHRISTOPHER 244.1 OTHER POSTABLATIVE HYPOTHYROIDISM 05/14/2012 ZULEIKA DPM, CHRISTOPHER 381.81 Eustachian Tube Dysfunction 05/14/2012 ADILIA WHYTE DO K 079.99 Viral Syndrome 05/14/2012 JOSUE WHYTE DOA K 244.1 OTHER POSTABLATIVE HYPOTHYROIDISM 05/14/2012 JOSUE WHYTE DOA K 381.81 Eustachian Tube Dysfunction 05/14/2012 RENAN DUNBAR APRN R 079.99 Viral Syndrome 05/14/2012 RENAN DUNBAR APRN R 244.1 OTHER POSTABLATIVE HYPOTHYROIDISM 05/14/2012 MANJINDER TOVAR RENAN R 381.81 Eustachian Tube Dysfunction 06/08/2012 ADILIA WHYTE DO V25.49 CONTRACEPTION SURVEILLANCE (REPEAT RX) 06/08/2012 V25.49 CONTRACEPTION SURVEILLANCE (REPEAT RX) 06/08/2012 V25.49 CONTRACEPTION SURVEILLANCE (REPEAT RX) 06/08/2012 ADILIA WHYTE DO V25.49 CONTRACEPTION SURVEILLANCE (REPEAT RX) 06/08/2012 ADILIA WHYTE DO V25.49 CONTRACEPTION SURVEILLANCE (REPEAT RX) 06/08/2012 V25.49 CONTRACEPTION SURVEILLANCE (REPEAT RX) 06/08/2012 V25.49 CONTRACEPTION SURVEILLANCE (REPEAT RX) 06/08/2012 SHYANNE HER, TIEN Fernandez V25.49 CONTRACEPTION SURVEILLANCE (REPEAT RX) 06/08/2012 ANSHUL CARBAJAL APRN V25.49 CONTRACEPTION SURVEILLANCE (REPEAT RX) 06/08/2012 WHYTE ADILIA DUEÑAS K V25.49 CONTRACEPTION SURVEILLANCE (REPEAT RX) 06/08/2012 V25.49 CONTRACEPTION SURVEILLANCE (REPEAT RX) 06/08/2012 V25.49 CONTRACEPTION SURVEILLANCE (REPEAT RX) 06/08/2012 V25.49 CONTRACEPTION SURVEILLANCE (REPEAT RX) 06/08/2012 V25.49 CONTRACEPTION SURVEILLANCE (REPEAT RX) 06/08/2012 V25.49 CONTRACEPTION SURVEILLANCE (REPEAT RX) 06/08/2012 V25.49 CONTRACEPTION SURVEILLANCE (REPEAT RX) 06/08/2012 V25.49 CONTRACEPTION SURVEILLANCE (REPEAT RX) 06/08/2012 V25.49 CONTRACEPTION SURVEILLANCE (REPEAT RX) 06/08/2012 V25.49 CONTRACEPTION SURVEILLANCE (REPEAT RX) 06/08/2012 LENKA TOSCANO, GORDON Qiu V25.49 CONTRACEPTION SURVEILLANCE (REPEAT RX) 06/08/2012 MAX TORRES DDS V25.49 CONTRACEPTION SURVEILLANCE (REPEAT RX) 06/08/2012 WHYTE JOSUE DUEÑASA K V25.49 CONTRACEPTION SURVEILLANCE (REPEAT RX) 06/08/2012 DAMIEN KIM APRN N V25.49 CONTRACEPTION SURVEILLANCE (REPEAT RX) 06/08/2012 ADILIA WHYTE DO K V25.49 CONTRACEPTION SURVEILLANCE (REPEAT RX) 06/08/2012 DAMIEN KIM APRN N V25.49 CONTRACEPTION SURVEILLANCE (REPEAT RX) 06/08/2012 RENAN DUNBAR APRN V25.49 CONTRACEPTION SURVEILLANCE (REPEAT RX) 06/08/2012 ADILIA WHYTE DO K V25.49 CONTRACEPTION SURVEILLANCE (REPEAT RX) 06/08/2012 WARREN TORRES DDS V25.49 CONTRACEPTION SURVEILLANCE (REPEAT RX) 06/08/2012 JOSUE WHYTE DOA K V25.49 CONTRACEPTION SURVEILLANCE (REPEAT RX) 06/08/2012 WHYTE JOSUE DUEÑASA K V25.49 CONTRACEPTION SURVEILLANCE (REPEAT RX) 06/08/2012 WON CARMONA, MARIUSZ Qiu V25.49 CONTRACEPTION SURVEILLANCE (REPEAT RX) 06/08/2012 APOORVA RAMIREZ, DANIEL Pickens V25.49 CONTRACEPTION SURVEILLANCE (REPEAT RX) 06/08/2012 ANSHUL CARBAJAL APRN V25.49 CONTRACEPTION SURVEILLANCE (REPEAT RX) 06/08/2012 YOVANIVONNIE Lord APRN A V25.49 CONTRACEPTION SURVEILLANCE (REPEAT RX) 06/08/2012 ADILIA WHYTE DO V25.49 CONTRACEPTION SURVEILLANCE (REPEAT RX) 06/08/2012 EMILY RIDDLE APRN V25.49 CONTRACEPTION SURVEILLANCE (REPEAT RX) 06/08/2012 RONNIE BARRERA RN V25.49 CONTRACEPTION SURVEILLANCE (REPEAT RX) 06/08/2012 VONNIE PINA APRN A V25.49 CONTRACEPTION SURVEILLANCE (REPEAT RX) 06/08/2012 RONNIE BARRERA RN V25.49 CONTRACEPTION SURVEILLANCE (REPEAT RX) 06/08/2012 ZULEIKA DPM, CHRISTOPHER V25.49 CONTRACEPTION SURVEILLANCE (REPEAT RX) 06/08/2012 VONNIE PINA APRN A V25.49 CONTRACEPTION SURVEILLANCE (REPEAT RX) 06/08/2012 ADILIA WHYTE DO V25.49 CONTRACEPTION SURVEILLANCE (REPEAT RX) 06/08/2012 RONNIE BARRERA RN V25.49 CONTRACEPTION SURVEILLANCE (REPEAT RX) 06/08/2012 ZULEIKA DPM, CHRISTOPHER V25.49 CONTRACEPTION SURVEILLANCE (REPEAT RX) 06/08/2012 RONNIE BARRERA RN V25.49 CONTRACEPTION SURVEILLANCE (REPEAT RX) 06/08/2012 ADILIA WHYTE DO V25.49 CONTRACEPTION SURVEILLANCE (REPEAT RX) 06/08/2012 ZULEIKA DPM, CHRISTOPHER V25.49 CONTRACEPTION SURVEILLANCE (REPEAT RX) 06/08/2012 ZULEIKA DPM, CHRISTOPHER V25.49 CONTRACEPTION SURVEILLANCE (REPEAT RX) 06/08/2012 ADILIA WHYTE DO V25.49 CONTRACEPTION SURVEILLANCE (REPEAT RX) 06/08/2012 RENAN DUNBAR APRN V25.49 CONTRACEPTION SURVEILLANCE (REPEAT RX) 07/31/2012 ADILIA WHYTE DO 719.41 PAIN IN JOINT INVOLVING SHOULDER REGION 07/31/2012 ADILIA WHYTE DO 780.52 INSOMNIA UNSPECIFIED 07/31/2012 719.41 PAIN IN JOINT INVOLVING SHOULDER REGION 07/31/2012 780.52 INSOMNIA UNSPECIFIED 07/31/2012 719.41 PAIN IN JOINT INVOLVING SHOULDER REGION 07/31/2012 780.52 INSOMNIA UNSPECIFIED 07/31/2012 ADILIA WHYTE DO 719.41 PAIN IN JOINT INVOLVING SHOULDER REGION 07/31/2012 ADILIA WHYTE DO 780.52 INSOMNIA UNSPECIFIED 07/31/2012 ADILIA WHYTE DO 719.41 Pain In Joint Involving Shoulder Region 07/31/2012 ADILIA WHYTE DO 780.52 INSOMNIA UNSPECIFIED 07/31/2012 719.41 Pain In Joint Involving Shoulder Region 07/31/2012 780.52 INSOMNIA UNSPECIFIED 07/31/2012 719.41 Pain In Joint Involving Shoulder Region 07/31/2012 780.52 INSOMNIA UNSPECIFIED 07/31/2012 TIEN KIMBLE PA-C 719.41 Pain In Joint Involving Shoulder Region 07/31/2012 TIEN KIMBLE PA-C 780.52 INSOMNIA UNSPECIFIED 07/31/2012 ANSHUL CARBAJAL APRN 719.41 Pain In Joint Involving Shoulder Region 07/31/2012 ANSHUL CARBAJAL APRN 780.52 INSOMNIA UNSPECIFIED 07/31/2012 ADILIA WHYTE DO 719.41 Pain In Joint Involving Shoulder Region 07/31/2012 ADILIA WHYTE DO 780.52 INSOMNIA UNSPECIFIED 07/31/2012 719.41 Pain In Joint Involving Shoulder Region 07/31/2012 780.52 INSOMNIA UNSPECIFIED 07/31/2012 719.41 Pain In Joint Involving Shoulder Region 07/31/2012 780.52 INSOMNIA UNSPECIFIED 07/31/2012 719.41 Pain In Joint Involving Shoulder Region 07/31/2012 780.52 INSOMNIA UNSPECIFIED 07/31/2012 719.41 Pain In Joint Involving Shoulder Region 07/31/2012 780.52 INSOMNIA UNSPECIFIED 07/31/2012 719.41 Pain In Joint Involving Shoulder Region 07/31/2012 780.52 INSOMNIA UNSPECIFIED 07/31/2012 719.41 Pain In Joint Involving Shoulder Region 07/31/2012 780.52 INSOMNIA UNSPECIFIED 07/31/2012 719.41 Pain In Joint Involving Shoulder Region 07/31/2012 780.52 INSOMNIA UNSPECIFIED 07/31/2012 719.41 Pain In Joint Involving Shoulder Region 07/31/2012 780.52 INSOMNIA UNSPECIFIED 07/31/2012 719.41 Pain In Joint Involving Shoulder Region 07/31/2012 780.52 INSOMNIA UNSPECIFIED 07/31/2012 GORDON OG DDS 719.41 Pain In Joint Involving Shoulder Region 07/31/2012 LENKA DDS, GORDON B 780.52 INSOMNIA UNSPECIFIED 07/31/2012 WHITE DDS, MAX J 719.41 Pain In Joint Involving Shoulder Region 07/31/2012 WHITE DDS, MAX J 780.52 INSOMNIA UNSPECIFIED 07/31/2012 WHYTE DO, ADILIA K 719.41 Pain In Joint Involving Shoulder Region 07/31/2012 WHYTE DO, ADILIA K 780.52 INSOMNIA UNSPECIFIED 07/31/2012 MCKEON CASHERO ADMINISTRATIVE MANAGER, DAMIEN N 719.41 Pain In Joint Involving Shoulder Region 07/31/2012 MCKEON CASHERO ADMINISTRATIVE MANAGER, DAMIEN N 780.52 INSOMNIA UNSPECIFIED 07/31/2012 WHYTE DO, ADILIA K 719.41 Pain In Joint Involving Shoulder Region 07/31/2012 WHYTE DO, ADILIA K 780.52 INSOMNIA UNSPECIFIED 07/31/2012 MCKEON CASHERO ADMINISTRATIVE MANAGER, DAMIEN N 719.41 Pain In Joint Involving Shoulder Region 07/31/2012 MCKEON CASHERO ADMINISTRATIVE MANAGER, DAMIEN N 780.52 INSOMNIA UNSPECIFIED 07/31/2012 MANJINDER ADMINISTRATIVE MANAGER, RENAN R 719.41 Pain In Joint Involving Shoulder Region 07/31/2012 MANJINDER ADMINISTRATIVE MANAGER, RENAN R 780.52 INSOMNIA UNSPECIFIED 07/31/2012 WHYTE DO, ADILIA K 719.41 Pain In Joint Involving Shoulder Region 07/31/2012 WHYTE DO, ADILIA K 780.52 INSOMNIA UNSPECIFIED 07/31/2012 WHITE DDS, WARREN Kuo 719.41 Pain In Joint Involving Shoulder Region 07/31/2012 WHITE DDS, WARREN Kuo 780.52 INSOMNIA UNSPECIFIED 07/31/2012 WHYTE DO, ADILIA K 719.41 Pain In Joint Involving Shoulder Region 07/31/2012 WHYTE DO, ADILIA K 780.52 INSOMNIA UNSPECIFIED 07/31/2012 WHYTE DO, ADILIA K 719.41 Pain In Joint Involving Shoulder Region 07/31/2012 WHYTE DO, ADILIA K 780.52 INSOMNIA UNSPECIFIED 07/31/2012 MARIUSZ UPTON LCPC 719.41 Pain In Joint Involving Shoulder Region 07/31/2012 MARIUSZ UPTON LCPC 780.52 INSOMNIA UNSPECIFIED 07/31/2012 APOORVA RAMIREZ, DANIEL Pickens 719.41 Pain In Joint Involving Shoulder Region 07/31/2012 BOEKHOUT PHD, DANIEL A 780.52 INSOMNIA UNSPECIFIED 07/31/2012 CECY CARBAJAL APRNIA R 719.41 Pain In Joint Involving Shoulder Region 07/31/2012 CECY CARBAJAL APRNIA R 780.52 INSOMNIA UNSPECIFIED 07/31/2012 VEL PINA APRNIDI A 719.41 Pain In Joint Involving Shoulder Region 07/31/2012 VEL PINA APRNIDI A 780.52 INSOMNIA UNSPECIFIED 07/31/2012 WHYTE DO, ADILIA K 719.41 Pain In Joint Involving Shoulder Region 07/31/2012 WHYTE DO, ADILIA K 780.52 INSOMNIA UNSPECIFIED 07/31/2012 VENKATESH TOVAR EMILY L 719.41 Pain In Joint Involving Shoulder Region 07/31/2012 VENKATESH TOVARERICKA L 780.52 INSOMNIA UNSPECIFIED 07/31/2012 RONNIE BARRERA RN 719.41 Pain In Joint Involving Shoulder Region 07/31/2012 RONNIE BARRERA RN 780.52 INSOMNIA UNSPECIFIED 07/31/2012 VEL PINA APRNIDI A 719.41 Pain In Joint Involving Shoulder Region 07/31/2012 VEL PINA APRNIDI A 780.52 INSOMNIA UNSPECIFIED 07/31/2012 RONNIE BARRERA RN E 719.41 Pain In Joint Involving Shoulder Region 07/31/2012 RONNIE BARRERA RN 780.52 INSOMNIA UNSPECIFIED 07/31/2012 ZULEIKA DPM, CHRISTOPHER 719.41 Pain In Joint Involving Shoulder Region 07/31/2012 ZULEIKA DPM, CHRISTOPHER 780.52 INSOMNIA UNSPECIFIED 07/31/2012 VEL PINA APRNIDI A 719.41 Pain In Joint Involving Shoulder Region 07/31/2012 VEL PINA APRNIDI A 780.52 INSOMNIA UNSPECIFIED 07/31/2012 WHYTE DO, ADILIA K 719.41 Pain In Joint Involving Shoulder Region 07/31/2012 WHYTE DO, ADILIA K 780.52 INSOMNIA UNSPECIFIED 07/31/2012 RONNIE BARRERA RN E 719.41 Pain In Joint Involving Shoulder Region 07/31/2012 RONNIE BARRERA RN E 780.52 INSOMNIA UNSPECIFIED 07/31/2012 ZULEIKA DPM, CHRISTOPHER 719.41 Pain In Joint Involving Shoulder Region 07/31/2012 ZULEIKA DPM, CHRISTOPHER 780.52 INSOMNIA UNSPECIFIED 07/31/2012 RONNIE BARRERA RN 719.41 Pain In Joint Involving Shoulder Region 07/31/2012 HOLLY KEVIN, RONNIE E 780.52 INSOMNIA UNSPECIFIED 07/31/2012 JOSUE WHYTE DOA K 719.41 Pain In Joint Involving Shoulder Region 07/31/2012 WHYTE DO ADILIA K 780.52 INSOMNIA UNSPECIFIED 07/31/2012 ZULEIKA DPM, CHRISTOPHER 719.41 Pain In Joint Involving Shoulder Region 07/31/2012 ZULEIKA DPM, CHRISTOPHER 780.52 INSOMNIA UNSPECIFIED 07/31/2012 ZULEIKA DPM, CHRISTOPHER 719.41 Pain In Joint Involving Shoulder Region 07/31/2012 ZULEIKA DPM, CHRISTOPHER 780.52 INSOMNIA UNSPECIFIED 07/31/2012 WHYTE JOSUE DUEÑASA K 719.41 Pain In Joint Involving Shoulder Region 07/31/2012 WHYTE DO ADILIA K 780.52 INSOMNIA UNSPECIFIED 07/31/2012 RENAN DUNBAR APRN R 719.41 Pain In Joint Involving Shoulder Region 07/31/2012 RENAN DUNBAR APRN R 780.52 INSOMNIA UNSPECIFIED 09/10/2012 ADILIA WHYTE DO K 461.9 SINUSITIS ACUTE 09/10/2012 ADILIA WHYTE DO K 466.0 BRONCHITIS, ACUTE 09/10/2012 JOSUE WHYTE DOA K V65.42 COUNSELING - SMOKING CESSATION 09/10/2012 461.9 SINUSITIS ACUTE 09/10/2012 466.0 BRONCHITIS, ACUTE 09/10/2012 V65.42 COUNSELING - SMOKING CESSATION 09/10/2012 461.9 SINUSITIS ACUTE 09/10/2012 466.0 BRONCHITIS, ACUTE 09/10/2012 V65.42 COUNSELING - SMOKING CESSATION 09/10/2012 TIEN KIMBLE PA-C 461.9 SINUSITIS ACUTE 09/10/2012 TIEN KIMBLE PA-C 466.0 BRONCHITIS, ACUTE 09/10/2012 TIEN KIMBLE PA-C V65.42 COUNSELING - SMOKING CESSATION 09/10/2012 ANSHUL CARBAJAL APRN 461.9 SINUSITIS ACUTE 09/10/2012 ANSHUL CARBAJAL APRN R 466.0 BRONCHITIS, ACUTE 09/10/2012 ANSHUL CARBAJAL APRN R V65.42 COUNSELING - SMOKING CESSATION 09/10/2012 ADILIA WHYTE DO 461.9 Sinusitis Acute 09/10/2012 ADILIA WHYTE DO 466.0 Bronchitis, Acute 09/10/2012 WHYTE DOADILIA V65.42 COUNSELING - SMOKING CESSATION 09/10/2012 461.9 Sinusitis Acute 09/10/2012 466.0 Bronchitis, Acute 09/10/2012 V65.42 COUNSELING - SMOKING CESSATION 09/10/2012 461.9 Sinusitis Acute 09/10/2012 466.0 Bronchitis, Acute 09/10/2012 V65.42 COUNSELING - SMOKING CESSATION 09/10/2012 461.9 Sinusitis Acute 09/10/2012 466.0 Bronchitis, Acute 09/10/2012 V65.42 COUNSELING - SMOKING CESSATION 09/10/2012 461.9 Sinusitis Acute 09/10/2012 466.0 Bronchitis, Acute 09/10/2012 V65.42 COUNSELING - SMOKING CESSATION 09/10/2012 461.9 Sinusitis Acute 09/10/2012 466.0 Bronchitis, Acute 09/10/2012 V65.42 COUNSELING - SMOKING CESSATION 09/10/2012 461.9 Sinusitis Acute 09/10/2012 466.0 Bronchitis, Acute 09/10/2012 V65.42 COUNSELING - SMOKING CESSATION 09/10/2012 461.9 Sinusitis Acute 09/10/2012 466.0 Bronchitis, Acute 09/10/2012 V65.42 COUNSELING - SMOKING CESSATION 09/10/2012 461.9 Sinusitis Acute 09/10/2012 466.0 Bronchitis, Acute 09/10/2012 V65.42 COUNSELING - SMOKING CESSATION 09/10/2012 461.9 Sinusitis Acute 09/10/2012 466.0 Bronchitis, Acute 09/10/2012 V65.42 COUNSELING - SMOKING CESSATION 09/10/2012 LENKA DDS, GORDON B 461.9 Sinusitis Acute 09/10/2012 LENKA DDS, GORDON B 466.0 Bronchitis, Acute 09/10/2012 LENKA DDS, GORDON B V65.42 COUNSELING - SMOKING CESSATION 09/10/2012 WHITE DDS, MAX J 461.9 Sinusitis Acute 09/10/2012 WHITE DDS, MAX J 466.0 Bronchitis, Acute 09/10/2012 WHITE DDS, MAX J V65.42 COUNSELING - SMOKING CESSATION 09/10/2012 ADILIA WHYTE DO 461.9 Sinusitis Acute 09/10/2012 WHYTE DO, ADILIA K 466.0 Bronchitis, Acute 09/10/2012 WHYTE DO, ADILIA K V65.42 COUNSELING - SMOKING CESSATION 09/10/2012 MCKEON CASHERO ADMINISTRATIVE MANAGER, DAMIEN N 461.9 Sinusitis Acute 09/10/2012 MCKEON CASHERO ADMINISTRATIVE MANAGER, DAMIEN N 466.0 Bronchitis, Acute 09/10/2012 MCKEON CASHERO ADMINISTRATIVE MANAGER, DAMIEN N V65.42 COUNSELING - SMOKING CESSATION 09/10/2012 WHYTE DO, ADILIA K 461.9 Sinusitis Acute 09/10/2012 WHYTE DO, ADILIA K 466.0 Bronchitis, Acute 09/10/2012 WHYTE DO, ADILIA K V65.42 COUNSELING - SMOKING CESSATION 09/10/2012 MCKEON CASHERO ADMINISTRATIVE MANAGER, DAMIEN N 461.9 Sinusitis Acute 09/10/2012 MCKEON CASHERO ADMINISTRATIVE MANAGER, DAMIEN N 466.0 Bronchitis, Acute 09/10/2012 MCKEON CASHERO ADMINISTRATIVE MANAGER, DAMIEN N V65.42 COUNSELING - SMOKING CESSATION 09/10/2012 MANJINDER ADMINISTRATIVE MANAGER, RENAN R 461.9 Sinusitis Acute 09/10/2012 MANJINDER ADMINISTRATIVE MANAGER, RENAN R 466.0 Bronchitis, Acute 09/10/2012 MANJINDER ADMINISTRATIVE MANAGER, RENAN R V65.42 COUNSELING - SMOKING CESSATION 09/10/2012 WHYTE DO, ADILIA K 461.9 Sinusitis Acute 09/10/2012 WHYTE DO, ADILIA K 466.0 Bronchitis, Acute 09/10/2012 WHYTE DO, ADILIA K V65.42 COUNSELING - SMOKING CESSATION 09/10/2012 WHITE DDS, WARREN D 461.9 Sinusitis Acute 09/10/2012 WHITE DDS, WARREN D 466.0 Bronchitis, Acute 09/10/2012 WHITE DDS, WARREN D V65.42 COUNSELING - SMOKING CESSATION 09/10/2012 WHYTE DO, ADILIA K 461.9 Sinusitis Acute 09/10/2012 WHYTE DO, ADILIA K 466.0 Bronchitis, Acute 09/10/2012 WHYTE DO, ADILIA K V65.42 COUNSELING - SMOKING CESSATION 09/10/2012 WHYTE DO, ADILIA K 461.9 Sinusitis Acute 09/10/2012 WHYTE DO, ADILIA K 466.0 Bronchitis, Acute 09/10/2012 WHYTE DO, ADILIA K V65.42 COUNSELING - SMOKING CESSATION 09/10/2012 WON COPPER TAPPER, MARIUSZ B 461.9 Sinusitis Acute 09/10/2012 WON CARMONA, MARIUSZ Qiu 466.0 Bronchitis, Acute 09/10/2012 WON CARMONA, MARIUSZ Qiu V65.42 COUNSELING - SMOKING CESSATION 09/10/2012 APOORVA RAMIREZ, DANIEL Pickens 461.9 Sinusitis Acute 09/10/2012 APOORVA RAMIREZ, DANIEL Pickens 466.0 Bronchitis, Acute 09/10/2012 APOORVA RAMIREZ, DANIEL Pickens V65.42 COUNSELING - SMOKING CESSATION 09/10/2012 CECY CARBAJAL APRNIA R 461.9 Sinusitis Acute 09/10/2012 LORRIE CARBAJAL APRNRICIA R 466.0 Bronchitis, Acute 09/10/2012 RAVEN TOVAR ANSHUL R V65.42 COUNSELING - SMOKING CESSATION 09/10/2012 VONNIE PINA APRN A 461.9 Sinusitis Acute 09/10/2012 VONNIE PINA APRN A 466.0 Bronchitis, Acute 09/10/2012 VONNIE PINA APRN A V65.42 COUNSELING - SMOKING CESSATION 09/10/2012 WHYTE DO ADILIA K 461.9 Sinusitis Acute 09/10/2012 WHYTE DO ADILIA K 466.0 Bronchitis, Acute 09/10/2012 WHYTE DO ADILIA K V65.42 COUNSELING - SMOKING CESSATION 09/10/2012 ERICK RIDDLE APRNA L 461.9 Sinusitis Acute 09/10/2012 VENKATESH TOVAR EMILY L 466.0 Bronchitis, Acute 09/10/2012 VENKATESH TOVAR EMILY L V65.42 COUNSELING - SMOKING CESSATION 09/10/2012 HOLLY KEVIN, RONNIE E 461.9 Sinusitis Acute 09/10/2012 HOLLY KEVIN, RONNIE E 466.0 Bronchitis, Acute 09/10/2012 HOLLY KEVIN, RONNIE E V65.42 COUNSELING - SMOKING CESSATION 09/10/2012 VONNIE PINA APRN A 461.9 Sinusitis Acute 09/10/2012 VONNIE PINA APRN A 466.0 Bronchitis, Acute 09/10/2012 VONNIE PINA APRN A V65.42 COUNSELING - SMOKING CESSATION 09/10/2012 HOLLY KEVIN, RONNIE E 461.9 Sinusitis Acute 09/10/2012 HOLLY KEVIN, RONNIE E 466.0 Bronchitis, Acute 09/10/2012 HOLLY KEVIN, RONNIE E V65.42 COUNSELING - SMOKING CESSATION 09/10/2012 ZULEIKA DPM, CHRISTOPHER 461.9 Sinusitis Acute 09/10/2012 ZULEIKA DPM, CHRISTOPHER 466.0 Bronchitis, Acute 09/10/2012 ZULEIKA DPM, CHRISTOPHER V65.42 COUNSELING - SMOKING CESSATION 09/10/2012 YOVANI ADMINISTRATIVE MANAGER, VONNIE A 461.9 Sinusitis Acute 09/10/2012 YOVANI ADMINISTRATIVE MANAGER, VONNIE A 466.0 Bronchitis, Acute 09/10/2012 YOVANI ADMINISTRATIVE MANAGER, VONNIE A V65.42 COUNSELING - SMOKING CESSATION 09/10/2012 WHYTE DO, ADILIA K 461.9 Sinusitis Acute 09/10/2012 WHYTE DO, ADILIA K 466.0 Bronchitis, Acute 09/10/2012 WHYTE DO, ADILIA K V65.42 COUNSELING - SMOKING CESSATION 09/10/2012 HOLLY KEVIN, RONNIE E 461.9 Sinusitis Acute 09/10/2012 HOLLY KEVIN, RONNIE E 466.0 Bronchitis, Acute 09/10/2012 HOLLY KEVIN, RONNIE E V65.42 COUNSELING - SMOKING CESSATION 09/10/2012 ZULEIKA DPM, CHRISTOPHER 461.9 Sinusitis Acute 09/10/2012 ZULEIKA DPM, CHRISTOPHER 466.0 Bronchitis, Acute 09/10/2012 ZULEIKA DPM, CHRISTOPHER V65.42 COUNSELING - SMOKING CESSATION 09/10/2012 HOLLY KEVIN, RONNIE E 461.9 Sinusitis Acute 09/10/2012 HOLLY KEVIN, RONNIE E 466.0 Bronchitis, Acute 09/10/2012 HOLLY KEVIN, RONNIE E V65.42 COUNSELING - SMOKING CESSATION 09/10/2012 WHYTE DO, ADILIA K 461.9 Sinusitis Acute 09/10/2012 WHYTE DO, ADILIA K 466.0 Bronchitis, Acute 09/10/2012 WHYTE DO, ADILIA K V65.42 COUNSELING - SMOKING CESSATION 09/10/2012 ZULEIKA DPM, CHRISTOPHER 461.9 Sinusitis Acute 09/10/2012 ZULEIKA DPM, CHRISTOPHER 466.0 Bronchitis, Acute 09/10/2012 ZULEIKA DPM, CHRISTOPHER V65.42 COUNSELING - SMOKING CESSATION 09/10/2012 ZULEIKA DPM, CHRISTOPHER 461.9 Sinusitis Acute 09/10/2012 ZULEIKA DPM, CHRISTOPHER 466.0 Bronchitis, Acute 09/10/2012 ZULEIKA DPM, CHRISTOPHER V65.42 COUNSELING - SMOKING CESSATION 09/10/2012 WHYTE DO, ADILIA K 461.9 Sinusitis Acute 09/10/2012 WHYTE DO, ADILIA K 466.0 Bronchitis, Acute 09/10/2012 WHYTE DO, ADILIA K V65.42 COUNSELING - SMOKING CESSATION 09/10/2012 MANJINDER TOVAR RENAN R 461.9 Sinusitis Acute 09/10/2012 MANJINDER ADMINISTRATIVE MANAGER, RENAN R 466.0 Bronchitis, Acute 09/10/2012 MANJINDER ADMINISTRATIVE MANAGER, RENAN R V65.42 COUNSELING - SMOKING CESSATION 09/23/2012 Ot 346.90 MIGRAINE UNSPECIFIED W/O INTRACT MGRN W/ 09/23/2012 Ot 461.9 ACUTE SINUSITIS NOS 09/23/2012 Ot 784.0 HEADACHE 09/23/2012 Ot 787.03 VOMITING ALONE 10/21/2012 473.9 SINUSITIS 10/21/2012 473.9 SINUSITIS 10/21/2012 SHYANNE HER, TIEN Fernandez 473.9 SINUSITIS 10/21/2012 ANSHUL CARBAJAL APRN R 473.9 SINUSITIS 10/21/2012 WHYTE JOSUE DUEÑASA K 473.9 Sinusitis 10/21/2012 473.9 Sinusitis 10/21/2012 473.9 Sinusitis 10/21/2012 473.9 Sinusitis 10/21/2012 473.9 Sinusitis 10/21/2012 473.9 Sinusitis 10/21/2012 473.9 Sinusitis 10/21/2012 473.9 Sinusitis 10/21/2012 473.9 Sinusitis 10/21/2012 473.9 Sinusitis 10/21/2012 GORDON OG DDS 473.9 Sinusitis 10/21/2012 BRIAN TOSCANO, MAX Fraga 473.9 Sinusitis 10/21/2012 JOSUE WHYTE DOA K 473.9 Sinusitis 10/21/2012 DAMIEN KIM APRN N 473.9 Sinusitis 10/21/2012 WHYTE DO ADILIA K 473.9 Sinusitis 10/21/2012 OCTAVIA KIM APRNCY N 473.9 Sinusitis 10/21/2012 RENAN DUNBAR APRN R 473.9 Sinusitis 10/21/2012 WHYTE JOSUE DUEÑASA K 473.9 Sinusitis 10/21/2012 BRIAN DDS, WARREN Kuo 473.9 Sinusitis 10/21/2012 WHYTE DO, ADILIA K 473.9 Sinusitis 10/21/2012 WHYTE DO, ADILIA K 473.9 Sinusitis 10/21/2012 WON CARMONA, MARIUSZ Qiu 473.9 Sinusitis 10/21/2012 APOORVA PHD, DANIEL A 473.9 Sinusitis 10/21/2012 RAVEN PEREZN, ANSHUL R 473.9 Sinusitis 10/21/2012 YOVANI PEREZN, VONNIE A 473.9 Sinusitis 10/21/2012 WHYTE DO, ADILIA K 473.9 Sinusitis 10/21/2012 VENKATESH ADMINISTRATIVE MANAGER, EMILY Garcia 473.9 Sinusitis 10/21/2012 HOLLY KEVIN, RONNIE E 473.9 Sinusitis 10/21/2012 YOVANI PEREZN, VONNIE A 473.9 Sinusitis 10/21/2012 HOLLY KEVIN, RONNIE E 473.9 Sinusitis 10/21/2012 ZULEIKA DPM, CHRISTOPHER 473.9 Sinusitis 10/21/2012 YOVANI PEREZN, VONNIE A 473.9 Sinusitis 10/21/2012 WHYTE DO, ADILIA K 473.9 Sinusitis 10/21/2012 HOLLY KEVIN, RONNIE E 473.9 Sinusitis 10/21/2012 ZULEIKA DPM, CHRISTOPHER 473.9 Sinusitis 10/21/2012 HOLLY KEVIN, RONNIE E 473.9 Sinusitis 10/21/2012 WHYTE DO, ADILIA K 473.9 Sinusitis 10/21/2012 ZULEIKA DPM, CHRISTOPHER 473.9 Sinusitis 10/21/2012 ZULEIKA DPM, CHRISTOPHER 473.9 Sinusitis 10/21/2012 WHYTE DO, ADILIA K 473.9 Sinusitis 10/21/2012 MANJINDER TOVAR, RENAN R 473.9 Sinusitis 10/26/2012 726.71 TENDONITIS ACHILLES LEFT 10/26/2012 SHYANNE HER, TIEN Fernandez 726.71 TENDONITIS ACHILLES LEFT 10/26/2012 RAVEN TOVAR, ANSHUL R 726.71 TENDONITIS ACHILLES LEFT 10/26/2012 WHYTE DO, ADILIA K 726.71 TENDONITIS ACHILLES LEFT 10/26/2012 726.71 TENDONITIS ACHILLES LEFT 10/26/2012 726.71 TENDONITIS ACHILLES LEFT 10/26/2012 726.71 TENDONITIS ACHILLES LEFT 10/26/2012 726.71 TENDONITIS ACHILLES LEFT 10/26/2012 726.71 TENDONITIS ACHILLES LEFT 10/26/2012 726.71 TENDONITIS ACHILLES LEFT 10/26/2012 726.71 TENDONITIS ACHILLES LEFT 10/26/2012 726.71 TENDONITIS ACHILLES LEFT 10/26/2012 726.71 TENDONITIS ACHILLES LEFT 10/26/2012 LENKA DDS, GORDON B 726.71 TENDONITIS ACHILLES LEFT 10/26/2012 BRIAN DDS, MAX Fraga 726.71 TENDONITIS ACHILLES LEFT 10/26/2012 WHYTE DO, ADILIA K 726.71 TENDONITIS ACHILLES LEFT 10/26/2012 OCTAVIA KIM APRNCY N 726.71 TENDONITIS ACHILLES LEFT 10/26/2012 WHYTE DO ADILIA K 726.71 TENDONITIS ACHILLES LEFT 10/26/2012 MCKEON JOVON TOVAR, DAMIEN N 726.71 TENDONITIS ACHILLES LEFT 10/26/2012 RENAN DUNBAR APRN R 726.71 TENDONITIS ACHILLES LEFT 10/26/2012 WHYTE DO ADILIA K 726.71 TENDONITIS ACHILLES LEFT 10/26/2012 BRIAN DDS, WARREN Kuo 726.71 TENDONITIS ACHILLES LEFT 10/26/2012 WHYTE DO, ADILIA K 726.71 TENDONITIS ACHILLES LEFT 10/26/2012 WHYTE DO ADILIA K 726.71 TENDONITIS ACHILLES LEFT 10/26/2012 WON CARMONA, MARIUSZ B 726.71 TENDONITIS ACHILLES LEFT 10/26/2012 APOORVA RAMIREZ, DANIEL A 726.71 TENDONITIS ACHILLES LEFT 10/26/2012 ANSHUL CARBAJAL APRN 726.71 TENDONITIS ACHILLES LEFT 10/26/2012 VONNIE PINA APRN A 726.71 TENDONITIS ACHILLES LEFT 10/26/2012 WHYTE DO ADILIA K 726.71 TENDONITIS ACHILLES LEFT 10/26/2012 EMILY RIDDLE APRN 726.71 TENDONITIS ACHILLES LEFT 10/26/2012 RONNIE BARRERA RN E 726.71 TENDONITIS ACHILLES LEFT 10/26/2012 VEL PINA APRNIDI A 726.71 TENDONITIS ACHILLES LEFT 10/26/2012 RONNIE BARRERA RN E 726.71 TENDONITIS ACHILLES LEFT 10/26/2012 ZULEIKA DPM, CHRISTOPHER 726.71 TENDONITIS ACHILLES LEFT 10/26/2012 VONNIE PINA APRN A 726.71 TENDONITIS ACHILLES LEFT 10/26/2012 WHYTE ADILIA DUEÑAS K 726.71 TENDONITIS ACHILLES LEFT 10/26/2012 RONNIE BARRERA RN 726.71 TENDONITIS ACHILLES LEFT 10/26/2012 ZULEIKA DPM, CHRISTOPHER 726.71 TENDONITIS ACHILLES LEFT 10/26/2012 RONNIE BARRERA RN 726.71 TENDONITIS ACHILLES LEFT 10/26/2012 WHYTE DO, ADILIA K 726.71 TENDONITIS ACHILLES LEFT 10/26/2012 ZULEIKA DPM, CHRISTOPHER 726.71 TENDONITIS ACHILLES LEFT 10/26/2012 ZULEIKA DPM, CHRISTOPHER 726.71 TENDONITIS ACHILLES LEFT 10/26/2012 WHYTE , ADILIA K 726.71 TENDONITIS ACHILLES LEFT 10/26/2012 RENAN DUNBAR APRN R 726.71 TENDONITIS ACHILLES LEFT 11/07/2012 Ot 784.0 HEADACHE 11/11/2012 ANSHUL CARBAJAL APRN 789.04 abdominal pain in the left lower belly (LLQ) 11/11/2012 ADILIA WHYTE DO 789.04 abdominal pain in the left lower belly (LLQ) 11/11/2012 789.04 abdominal pain in the left lower belly (LLQ) 11/11/2012 789.04 abdominal pain in the left lower belly (LLQ) 11/11/2012 789.04 abdominal pain in the left lower belly (LLQ) 11/11/2012 789.04 abdominal pain in the left lower belly (LLQ) 11/11/2012 789.04 abdominal pain in the left lower belly (LLQ) 11/11/2012 789.04 abdominal pain in the left lower belly (LLQ) 11/11/2012 789.04 ABDOMINAL PAIN IN THE LEFT LOWER BELLY (LLQ) 11/11/2012 789.04 ABDOMINAL PAIN IN THE LEFT LOWER BELLY (LLQ) 11/11/2012 789.04 ABDOMINAL PAIN IN THE LEFT LOWER BELLY (LLQ) 11/11/2012 LENKA DDS, GORDON B 789.04 ABDOMINAL PAIN IN THE LEFT LOWER BELLY (LLQ) 11/11/2012 WHITE DDS, AMX Fraga 789.04 ABDOMINAL PAIN IN THE LEFT LOWER BELLY (LLQ) 11/11/2012 WHYTE DO, ADILIA K 789.04 ABDOMINAL PAIN IN THE LEFT LOWER BELLY (LLQ) 11/11/2012 LINDA SIGALA APRN, DAMIEN N 789.04 ABDOMINAL PAIN IN THE LEFT LOWER BELLY (LLQ) 11/11/2012 WHYTE DO, ADILIA K 789.04 ABDOMINAL PAIN IN THE LEFT LOWER BELLY (LLQ) 11/11/2012 LINDA SIGALA APRN, DAMIEN N 789.04 ABDOMINAL PAIN IN THE LEFT LOWER BELLY (LLQ) 11/11/2012 RENAN DUNBAR APRN 789.04 ABDOMINAL PAIN IN THE LEFT LOWER BELLY (LLQ) 11/11/2012 WHYTE DO, ADILIA K 789.04 ABDOMINAL PAIN IN THE LEFT LOWER BELLY (LLQ) 11/11/2012 BRIAN DDS, WARREN Kuo 789.04 ABDOMINAL PAIN IN THE LEFT LOWER BELLY (LLQ) 11/11/2012 WHYTE DO, ADILIA K 789.04 ABDOMINAL PAIN IN THE LEFT LOWER BELLY (LLQ) 11/11/2012 WHYTE DO, ADILIA K 789.04 ABDOMINAL PAIN IN THE LEFT LOWER BELLY (LLQ) 11/11/2012 MARIUSZ UPTON LCPC 789.04 ABDOMINAL PAIN IN THE LEFT LOWER BELLY (LLQ) 11/11/2012 APOORVA PHD, DANIEL A 789.04 ABDOMINAL PAIN IN THE LEFT LOWER BELLY (LLQ) 11/11/2012 ANSHUL CARBAJAL APRN R 789.04 ABDOMINAL PAIN IN THE LEFT LOWER BELLY (LLQ) 11/11/2012 VONNIE PINA APRN A 789.04 ABDOMINAL PAIN IN THE LEFT LOWER BELLY (LLQ) 11/11/2012 WHYTE DO, ADILIA K 789.04 ABDOMINAL PAIN IN THE LEFT LOWER BELLY (LLQ) 11/11/2012 EMILY RIDDLE APRN 789.04 ABDOMINAL PAIN IN THE LEFT LOWER BELLY (LLQ) 11/11/2012 HOLLY KEVIN, RONNIE Shanks 789.04 ABDOMINAL PAIN IN THE LEFT LOWER BELLY (LLQ) 11/11/2012 VONNIE PINA APRN A 789.04 ABDOMINAL PAIN IN THE LEFT LOWER BELLY (LLQ) 11/11/2012 RONNIE BARRERA RN 789.04 ABDOMINAL PAIN IN THE LEFT LOWER BELLY (LLQ) 11/11/2012 ZULEIKA DPM, CHRISTOPHER 789.04 ABDOMINAL PAIN IN THE LEFT LOWER BELLY (LLQ) 11/11/2012 YOVANI TOVAR, VONNIE A 789.04 ABDOMINAL PAIN IN THE LEFT LOWER BELLY (LLQ) 11/11/2012 ADILIA WHYTE DO 789.04 ABDOMINAL PAIN IN THE LEFT LOWER BELLY (LLQ) 11/11/2012 RONNIE BARRERA RN 789.04 ABDOMINAL PAIN IN THE LEFT LOWER BELLY (LLQ) 11/11/2012 ZULEIKA DPM, CHRISTOPHER 789.04 ABDOMINAL PAIN IN THE LEFT LOWER BELLY (LLQ) 11/11/2012 RONNIE BARRERA RN 789.04 ABDOMINAL PAIN IN THE LEFT LOWER BELLY (LLQ) 11/11/2012 ADILIA WHYTE DO 789.04 ABDOMINAL PAIN IN THE LEFT LOWER BELLY (LLQ) 11/11/2012 ZULEIKA DPM, CHRISTOPHER 789.04 ABDOMINAL PAIN IN THE LEFT LOWER BELLY (LLQ) 11/11/2012 ZULEIKA DPM, CHRISTOPHER 789.04 ABDOMINAL PAIN IN THE LEFT LOWER BELLY (LLQ) 11/11/2012 ADILIA WHYTE DO 789.04 ABDOMINAL PAIN IN THE LEFT LOWER BELLY (LLQ) 11/11/2012 RENAN DUNBAR APRN 789.04 ABDOMINAL PAIN IN THE LEFT LOWER BELLY (LLQ) 11/20/2012 ADILIA WHYTE DO 786.50 CHEST PAIN 11/20/2012 ADILIA WHYTE DO 790.6 OTHER ABNORMAL BLOOD CHEMISTRY 11/20/2012 786.50 CHEST PAIN 11/20/2012 790.6 OTHER ABNORMAL BLOOD CHEMISTRY 11/20/2012 786.50 CHEST PAIN 11/20/2012 790.6 OTHER ABNORMAL BLOOD CHEMISTRY 11/20/2012 786.50 CHEST PAIN 11/20/2012 790.6 OTHER ABNORMAL BLOOD CHEMISTRY 11/20/2012 786.50 CHEST PAIN 11/20/2012 790.6 OTHER ABNORMAL BLOOD CHEMISTRY 11/20/2012 786.50 CHEST PAIN 11/20/2012 790.6 OTHER ABNORMAL BLOOD CHEMISTRY 11/20/2012 786.50 CHEST PAIN 11/20/2012 790.6 OTHER ABNORMAL BLOOD CHEMISTRY 11/20/2012 786.50 CHEST PAIN 11/20/2012 790.6 OTHER ABNORMAL BLOOD CHEMISTRY 11/20/2012 786.50 CHEST PAIN 11/20/2012 790.6 OTHER ABNORMAL BLOOD CHEMISTRY 11/20/2012 786.50 CHEST PAIN 11/20/2012 790.6 OTHER ABNORMAL BLOOD CHEMISTRY 11/20/2012 LENKA DDS, GORDON B 786.50 CHEST PAIN 11/20/2012 LENKA DDS, GORDON B 790.6 OTHER ABNORMAL BLOOD CHEMISTRY 11/20/2012 WHITE DDS, MAX J 786.50 CHEST PAIN 11/20/2012 WHITE DDS, MAX J 790.6 OTHER ABNORMAL BLOOD CHEMISTRY 11/20/2012 WHYTE DO, ADILIA K 786.50 CHEST PAIN 11/20/2012 WHYTE DO, ADILIA K 790.6 OTHER ABNORMAL BLOOD CHEMISTRY 11/20/2012 MCKEON CASHERO ADMINISTRATIVE MANAGER, DAMIEN N 786.50 CHEST PAIN 11/20/2012 MCKEON CASHERO ADMINISTRATIVE MANAGER, DAMIEN N 790.6 OTHER ABNORMAL BLOOD CHEMISTRY 11/20/2012 WHYTE DO, ADILIA K 786.50 CHEST PAIN 11/20/2012 WHYTE DO, ADILIA K 790.6 OTHER ABNORMAL BLOOD CHEMISTRY 11/20/2012 MCKEON CASHERO ADMINISTRATIVE MANAGER, DAMIEN N 786.50 CHEST PAIN 11/20/2012 MCKEON CASHERO ADMINISTRATIVE MANAGER, DAMIEN N 790.6 OTHER ABNORMAL BLOOD CHEMISTRY 11/20/2012 MANJINDER ADMINISTRATIVE MANAGER, RENAN R 786.50 CHEST PAIN 11/20/2012 MANJINDER ADMINISTRATIVE MANAGER, RENAN R 790.6 OTHER ABNORMAL BLOOD CHEMISTRY 11/20/2012 WHYTE DO, ADILIA K 786.50 CHEST PAIN 11/20/2012 WHYTE DO, ADILIA K 790.6 OTHER ABNORMAL BLOOD CHEMISTRY 11/20/2012 WHITE DDS, WARREN D 786.50 CHEST PAIN 11/20/2012 WHITE DDS, WARREN D 790.6 OTHER ABNORMAL BLOOD CHEMISTRY 11/20/2012 WHYTE DO, ADILIA K 786.50 CHEST PAIN 11/20/2012 WHYTE DO, ADILIA K 790.6 OTHER ABNORMAL BLOOD CHEMISTRY 11/20/2012 WHYTE DO, ADILIA K 786.50 CHEST PAIN 11/20/2012 WHYTE DO, ADILIA K 790.6 OTHER ABNORMAL BLOOD CHEMISTRY 11/20/2012 WON COPPER TAPPER, MARIUSZ B 786.50 CHEST PAIN 11/20/2012 WON COPPER TAPPER, MARIUSZ B 790.6 OTHER ABNORMAL BLOOD CHEMISTRY 11/20/2012 APOORVA RAMIREZ, DANIEL A 786.50 CHEST PAIN 11/20/2012 APOORVA RAMIREZ, DANIEL A 790.6 OTHER ABNORMAL BLOOD CHEMISTRY 11/20/2012 CARBAJAL ADMINISTRATIVE MANAGER, ANSHUL R 786.50 CHEST PAIN 11/20/2012 CARBAJAL ADMINISTRATIVE MANAGER, ANSHUL R 790.6 OTHER ABNORMAL BLOOD CHEMISTRY 11/20/2012 YOVANI ADMINISTRATIVE MANAGER, VONNIE A 786.50 CHEST PAIN 11/20/2012 YOVANI ADMINISTRATIVE MANAGER, VONNIE A 790.6 OTHER ABNORMAL BLOOD CHEMISTRY 11/20/2012 WHYTE DO, ADILIA K 786.50 CHEST PAIN 11/20/2012 WHYTE DO, ADILIA K 790.6 OTHER ABNORMAL BLOOD CHEMISTRY 11/20/2012 MADL ADMINISTRATIVE MANAGER, EMILY L 786.50 CHEST PAIN 11/20/2012 MADL ADMINISTRATIVE MANAGER, EMILY L 790.6 OTHER ABNORMAL BLOOD CHEMISTRY 11/20/2012 HOLLY KEVIN, RONNIE E 786.50 CHEST PAIN 11/20/2012 HOLLY KEVIN, RONNIE E 790.6 OTHER ABNORMAL BLOOD CHEMISTRY 11/20/2012 YOVANI ADMINISTRATIVE MANAGER, VONNIE A 786.50 CHEST PAIN 11/20/2012 YOVANI ADMINISTRATIVE MANAGER, VONNIE A 790.6 OTHER ABNORMAL BLOOD CHEMISTRY 11/20/2012 HOLLY KEVIN, RONNIE E 786.50 CHEST PAIN 11/20/2012 HOLLY KEVIN, RONNIE E 790.6 OTHER ABNORMAL BLOOD CHEMISTRY 11/20/2012 ZULEIKA DPM, CHRISTOPHER 786.50 CHEST PAIN 11/20/2012 ZULEIKA DPM, CHRISTOPHER 790.6 OTHER ABNORMAL BLOOD CHEMISTRY 11/20/2012 YOVANI ADMINISTRATIVE MANAGER, VONNIE A 786.50 CHEST PAIN 11/20/2012 YOVANI ADMINISTRATIVE MANAGER, VONNIE A 790.6 OTHER ABNORMAL BLOOD CHEMISTRY 11/20/2012 WHYTE DO, ADILIA K 786.50 CHEST PAIN 11/20/2012 WHYTE DO, ADILIA K 790.6 OTHER ABNORMAL BLOOD CHEMISTRY 11/20/2012 HOLLY KEVIN, RONNIE E 786.50 CHEST PAIN 11/20/2012 HOLLY KEVIN, RONNIE E 790.6 OTHER ABNORMAL BLOOD CHEMISTRY 11/20/2012 ZULEIKA DPM, CHRISTOPHER 786.50 CHEST PAIN 11/20/2012 ZULEIKA DPM, CHRISTOPHER 790.6 OTHER ABNORMAL BLOOD CHEMISTRY 11/20/2012 HOLLY KEVIN, RONNIE E 786.50 CHEST PAIN 11/20/2012 HOLLY KEVIN, RONNIE E 790.6 OTHER ABNORMAL BLOOD CHEMISTRY 11/20/2012 WHYTE DO, ADILIA K 786.50 CHEST PAIN 11/20/2012 WHYTE DO, ADILIA K 790.6 OTHER ABNORMAL BLOOD CHEMISTRY 11/20/2012 ZULEIKA DPM, CHRISTOPHER 786.50 CHEST PAIN 11/20/2012 ZULEIKA DPM, CHRISTOPHER 790.6 OTHER ABNORMAL BLOOD CHEMISTRY 11/20/2012 ZULEIKA DPM, CHRISTOPHER 786.50 CHEST PAIN 11/20/2012 ZULEIKA DPM, CHRISTOPHER 790.6 OTHER ABNORMAL BLOOD CHEMISTRY 11/20/2012 WHYTE DO, ADILIA K 786.50 CHEST PAIN 11/20/2012 WHYTE DO, ADILIA K 790.6 OTHER ABNORMAL BLOOD CHEMISTRY 11/20/2012 MANJINDER ADMINISTRATIVE MANAGER, RENAN R 786.50 CHEST PAIN 11/20/2012 MANJINDER ADMINISTRATIVE MANAGER, RENAN R 790.6 OTHER ABNORMAL BLOOD CHEMISTRY 12/08/2012 729.1 MYALGIA AND MYOSITIS UNSPECIFIED 12/08/2012 V25.9 CONTRACEPTION MANAGEMENT 12/08/2012 729.1 MYALGIA AND MYOSITIS UNSPECIFIED 12/08/2012 V25.9 CONTRACEPTION MANAGEMENT 12/08/2012 729.1 MYALGIA AND MYOSITIS UNSPECIFIED 12/08/2012 V25.9 CONTRACEPTION MANAGEMENT 12/08/2012 729.1 MYALGIA AND MYOSITIS UNSPECIFIED 12/08/2012 V25.9 CONTRACEPTION MANAGEMENT 12/08/2012 729.1 MYALGIA AND MYOSITIS UNSPECIFIED 12/08/2012 V25.9 CONTRACEPTION MANAGEMENT 12/08/2012 729.1 MYALGIA AND MYOSITIS UNSPECIFIED 12/08/2012 V25.9 CONTRACEPTION MANAGEMENT 12/08/2012 729.1 MYALGIA AND MYOSITIS UNSPECIFIED 12/08/2012 V25.9 CONTRACEPTION MANAGEMENT 12/08/2012 729.1 MYALGIA AND MYOSITIS UNSPECIFIED 12/08/2012 V25.9 CONTRACEPTION MANAGEMENT 12/08/2012 729.1 MYALGIA AND MYOSITIS UNSPECIFIED 12/08/2012 V25.9 CONTRACEPTION MANAGEMENT 12/08/2012 LENKA DDS, GORDON Qiu 729.1 MYALGIA AND MYOSITIS UNSPECIFIED 12/08/2012 LENKA DDS, GORDON Qiu V25.9 CONTRACEPTION MANAGEMENT 12/08/2012 WHITE DDS, MAX Fraga 729.1 MYALGIA AND MYOSITIS UNSPECIFIED 12/08/2012 WHITE DDS, MAX Fraga V25.9 CONTRACEPTION MANAGEMENT 12/08/2012 WHYTE DO, ADILIA K 729.1 MYALGIA AND MYOSITIS UNSPECIFIED 12/08/2012 WHYTE DO, ADILIA K V25.9 CONTRACEPTION MANAGEMENT 12/08/2012 MCKEON CASHERO ADMINISTRATIVE MANAGER, DAMIEN N 729.1 MYALGIA AND MYOSITIS UNSPECIFIED 12/08/2012 MCKEON CASHERO ADMINISTRATIVE MANAGER, DAMIEN N V25.9 CONTRACEPTION MANAGEMENT 12/08/2012 WHYTE DO, ADILIA K 729.1 MYALGIA AND MYOSITIS UNSPECIFIED 12/08/2012 WHYTE DO, ADILIA K V25.9 CONTRACEPTION MANAGEMENT 12/08/2012 MCKEON CASHERO ADMINISTRATIVE MANAGER, DAMIEN N 729.1 MYALGIA AND MYOSITIS UNSPECIFIED 12/08/2012 MCKEON CASHERO ADMINISTRATIVE MANAGER, DAMIEN N V25.9 CONTRACEPTION MANAGEMENT 12/08/2012 MANJINDER TOVAR, RENAN R 729.1 MYALGIA AND MYOSITIS UNSPECIFIED 12/08/2012 MANJINDER ADMINISTRATIVE MANAGER, RENAN R V25.9 CONTRACEPTION MANAGEMENT 12/08/2012 WHYTE DO, ADILIA K 729.1 MYALGIA AND MYOSITIS UNSPECIFIED 12/08/2012 WHYTE DO, ADILIA K V25.9 CONTRACEPTION MANAGEMENT 12/08/2012 WHITE DDS, WARREN Kuo 729.1 MYALGIA AND MYOSITIS UNSPECIFIED 12/08/2012 WHITE DDS, WARREN Kuo V25.9 CONTRACEPTION MANAGEMENT 12/08/2012 WHYTE DO, ADILIA K 729.1 MYALGIA AND MYOSITIS UNSPECIFIED 12/08/2012 WHYTE DO, ADILIA K V25.9 CONTRACEPTION MANAGEMENT 12/08/2012 WHYTE DO, ADILIA K 729.1 MYALGIA AND MYOSITIS UNSPECIFIED 12/08/2012 WHYTE DO, ADILIA K V25.9 CONTRACEPTION MANAGEMENT 12/08/2012 MARIUSZ UPTON LCPC 729.1 MYALGIA AND MYOSITIS UNSPECIFIED 12/08/2012 WON CARMONA, MARIUSZ Qiu V25.9 CONTRACEPTION MANAGEMENT 12/08/2012 APOORVA RAMIREZ, DANIEL Pickens 729.1 MYALGIA AND MYOSITIS UNSPECIFIED 12/08/2012 APOORVA RAMIREZ, DANIEL Pickens V25.9 CONTRACEPTION MANAGEMENT 12/08/2012 CECY CARBAJAL APRNIA R 729.1 MYALGIA AND MYOSITIS UNSPECIFIED 12/08/2012 LORRIE CARBAJAL APRNRICIA R V25.9 CONTRACEPTION MANAGEMENT 12/08/2012 VONNIE PINA APRN A 729.1 MYALGIA AND MYOSITIS UNSPECIFIED 12/08/2012 VONNIE PINA APRN A V25.9 CONTRACEPTION MANAGEMENT 12/08/2012 ADILIA WHYTE DO K 729.1 MYALGIA AND MYOSITIS UNSPECIFIED 12/08/2012 ADILIA WHYTE DO V25.9 CONTRACEPTION MANAGEMENT 12/08/2012 EMILY RIDDLE APRN 729.1 MYALGIA AND MYOSITIS UNSPECIFIED 12/08/2012 ERICK RIDDLE APRNA L V25.9 CONTRACEPTION MANAGEMENT 12/08/2012 HOLLY KEVIN, RONNIE E 729.1 MYALGIA AND MYOSITIS UNSPECIFIED 12/08/2012 HOLLY KEVIN, RONNIE E V25.9 CONTRACEPTION MANAGEMENT 12/08/2012 VONNIE PINA APRN A 729.1 MYALGIA AND MYOSITIS UNSPECIFIED 12/08/2012 VONNIE PINA APRN A V25.9 CONTRACEPTION MANAGEMENT 12/08/2012 HOLLY KEVIN, RONNIE E 729.1 MYALGIA AND MYOSITIS UNSPECIFIED 12/08/2012 HOLLY KEVIN, RONNIE E V25.9 CONTRACEPTION MANAGEMENT 12/08/2012 ZULEIKA DPRebecca, CHRISTOPHER 729.1 MYALGIA AND MYOSITIS UNSPECIFIED 12/08/2012 ZULEIKA DPM, CHRISTOPHER V25.9 CONTRACEPTION MANAGEMENT 12/08/2012 VONNIE PINA APRN A 729.1 MYALGIA AND MYOSITIS UNSPECIFIED 12/08/2012 VEL PINA APRNIDI A V25.9 CONTRACEPTION MANAGEMENT 12/08/2012 JOSUE WHYTE DOA K 729.1 MYALGIA AND MYOSITIS UNSPECIFIED 12/08/2012 ADILIA WHYTE DO V25.9 CONTRACEPTION MANAGEMENT 12/08/2012 HOLLY KEVIN, RONNIE E 729.1 MYALGIA AND MYOSITIS UNSPECIFIED 12/08/2012 RONNIE BARRERA RN V25.9 CONTRACEPTION MANAGEMENT 12/08/2012 ZULEIKA DPM, CHRISTOPHER 729.1 MYALGIA AND MYOSITIS UNSPECIFIED 12/08/2012 ZULEIKA DPM, CHRISTOPHER V25.9 CONTRACEPTION MANAGEMENT 12/08/2012 RONNIE BARRERA RN 729.1 MYALGIA AND MYOSITIS UNSPECIFIED 12/08/2012 RONNIE BARRERA RN V25.9 CONTRACEPTION MANAGEMENT 12/08/2012 ADILIA WHYTE DO K 729.1 MYALGIA AND MYOSITIS UNSPECIFIED 12/08/2012 ADILIA WHYTE DO K V25.9 CONTRACEPTION MANAGEMENT 12/08/2012 ZULEIKA DPM, CHRISTOPHER 729.1 MYALGIA AND MYOSITIS UNSPECIFIED 12/08/2012 ZULEIKA DPM, CHRISTOPHER V25.9 CONTRACEPTION MANAGEMENT 12/08/2012 ZULEIKA DPM, CHRISTOPHER 729.1 MYALGIA AND MYOSITIS UNSPECIFIED 12/08/2012 ZULEIKA DPM, CHRISTOPHER V25.9 CONTRACEPTION MANAGEMENT 12/08/2012 ADILIA WHYTE DO K 729.1 MYALGIA AND MYOSITIS UNSPECIFIED 12/08/2012 ADILIA WHYTE DO K V25.9 CONTRACEPTION MANAGEMENT 12/08/2012 RENAN DUNBAR APRN R 729.1 MYALGIA AND MYOSITIS UNSPECIFIED 12/08/2012 RENAN DUNBAR APRN R V25.9 CONTRACEPTION MANAGEMENT 01/03/2013 ALFRED GARCIA DO Ot 682.3 CELLULITIS OF ARM 01/03/2013 ALFRED GARCIA DO Ot 729.5 PAIN IN LIMB 01/04/2013 359.79 OTHER INFLAMMATORY AND IMMUNE MYOPATHIES NOT ELSEWHERE CLASSIFIED 01/04/2013 359.79 OTHER INFLAMMATORY AND IMMUNE MYOPATHIES NOT ELSEWHERE CLASSIFIED 01/04/2013 359.79 OTHER INFLAMMATORY AND IMMUNE MYOPATHIES NOT ELSEWHERE CLASSIFIED 01/04/2013 359.79 OTHER INFLAMMATORY AND IMMUNE MYOPATHIES NOT ELSEWHERE CLASSIFIED 01/04/2013 359.79 OTHER INFLAMMATORY AND IMMUNE MYOPATHIES NOT ELSEWHERE CLASSIFIED 01/04/2013 359.79 OTHER INFLAMMATORY AND IMMUNE MYOPATHIES NOT ELSEWHERE CLASSIFIED 01/04/2013 359.79 OTHER INFLAMMATORY AND IMMUNE MYOPATHIES NOT ELSEWHERE CLASSIFIED 01/04/2013 LENKA SANCHEZS, GORDON Qiu 359.79 OTHER INFLAMMATORY AND IMMUNE MYOPATHIES NOT ELSEWHERE CLASSIFIED 01/04/2013 BRIAN SANCHEZSMAX 359.79 OTHER INFLAMMATORY AND IMMUNE MYOPATHIES NOT ELSEWHERE CLASSIFIED 01/04/2013 WHYTE DO ADILIA K 359.79 OTHER INFLAMMATORY AND IMMUNE MYOPATHIES NOT ELSEWHERE CLASSIFIED 01/04/2013 DAMIEN KIM APRN N 359.79 OTHER INFLAMMATORY AND IMMUNE MYOPATHIES NOT ELSEWHERE CLASSIFIED 01/04/2013 WHYTE DO ADILIA K 359.79 OTHER INFLAMMATORY AND IMMUNE MYOPATHIES NOT ELSEWHERE CLASSIFIED 01/04/2013 DAMIEN KIM APRN N 359.79 OTHER INFLAMMATORY AND IMMUNE MYOPATHIES NOT ELSEWHERE CLASSIFIED 01/04/2013 RENAN DUNBAR APRN 359.79 OTHER INFLAMMATORY AND IMMUNE MYOPATHIES NOT ELSEWHERE CLASSIFIED 01/04/2013 WHYTE DO ADILIA K 359.79 OTHER INFLAMMATORY AND IMMUNE MYOPATHIES NOT ELSEWHERE CLASSIFIED 01/04/2013 BRIAN SANCHEZSWARREN 359.79 OTHER INFLAMMATORY AND IMMUNE MYOPATHIES NOT ELSEWHERE CLASSIFIED 01/04/2013 WHYTE DO ADILIA K 359.79 OTHER INFLAMMATORY AND IMMUNE MYOPATHIES NOT ELSEWHERE CLASSIFIED 01/04/2013 WHYTE DO ADILIA K 359.79 OTHER INFLAMMATORY AND IMMUNE MYOPATHIES NOT ELSEWHERE CLASSIFIED 01/04/2013 MARIUSZ UPTON LCPC 359.79 OTHER INFLAMMATORY AND IMMUNE MYOPATHIES NOT ELSEWHERE CLASSIFIED 01/04/2013 APOORVA PHD, DANIEL A 359.79 OTHER INFLAMMATORY AND IMMUNE MYOPATHIES NOT ELSEWHERE CLASSIFIED 01/04/2013 ANSHUL CARBAJAL APRN 359.79 OTHER INFLAMMATORY AND IMMUNE MYOPATHIES NOT ELSEWHERE CLASSIFIED 01/04/2013 VONNIE PINA APRN A 359.79 OTHER INFLAMMATORY AND IMMUNE MYOPATHIES NOT ELSEWHERE CLASSIFIED 01/04/2013 PATO DUEÑAS ADILIA K 359.79 OTHER INFLAMMATORY AND IMMUNE MYOPATHIES NOT ELSEWHERE CLASSIFIED 01/04/2013 EMILY RIDDLE APRN 359.79 OTHER INFLAMMATORY AND IMMUNE MYOPATHIES NOT ELSEWHERE CLASSIFIED 01/04/2013 HOLLY KEVIN, RONNIE Shanks 359.79 OTHER INFLAMMATORY AND IMMUNE MYOPATHIES NOT ELSEWHERE CLASSIFIED 01/04/2013 VONNIE PINA APRN A 359.79 OTHER INFLAMMATORY AND IMMUNE MYOPATHIES NOT ELSEWHERE CLASSIFIED 01/04/2013 RONNIE BARRERA RN 359.79 OTHER INFLAMMATORY AND IMMUNE MYOPATHIES NOT ELSEWHERE CLASSIFIED 01/04/2013 CHRISTOPHER TO DPM 359.79 OTHER INFLAMMATORY AND IMMUNE MYOPATHIES NOT ELSEWHERE CLASSIFIED 01/04/2013 VONNIE PINA APRN 359.79 OTHER INFLAMMATORY AND IMMUNE MYOPATHIES NOT ELSEWHERE CLASSIFIED 01/04/2013 ADILIA WHYTE DO 359.79 OTHER INFLAMMATORY AND IMMUNE MYOPATHIES NOT ELSEWHERE CLASSIFIED 01/04/2013 RONNIE BARRERA RN 359.79 OTHER INFLAMMATORY AND IMMUNE MYOPATHIES NOT ELSEWHERE CLASSIFIED 01/04/2013 CHRISTOPHER TO DPM 359.79 OTHER INFLAMMATORY AND IMMUNE MYOPATHIES NOT ELSEWHERE CLASSIFIED 01/04/2013 RONNIE BARRERA RN 359.79 OTHER INFLAMMATORY AND IMMUNE MYOPATHIES NOT ELSEWHERE CLASSIFIED 01/04/2013 ADILIA WHYTE DO 359.79 OTHER INFLAMMATORY AND IMMUNE MYOPATHIES NOT ELSEWHERE CLASSIFIED 01/04/2013 CHRISTOPHER TO DPM 359.79 OTHER INFLAMMATORY AND IMMUNE MYOPATHIES NOT ELSEWHERE CLASSIFIED 01/04/2013 CHRISTOPHER TO DPM 359.79 OTHER INFLAMMATORY AND IMMUNE MYOPATHIES NOT ELSEWHERE CLASSIFIED 01/04/2013 ADILIA WHYTE DO 359.79 OTHER INFLAMMATORY AND IMMUNE MYOPATHIES NOT ELSEWHERE CLASSIFIED 01/04/2013 RENAN DUNBAR APRN 359.79 OTHER INFLAMMATORY AND IMMUNE MYOPATHIES NOT ELSEWHERE CLASSIFIED 01/18/2013 911.2 NONVENOMOUS INSECT BITE PELVIS 01/18/2013 911.2 NONVENOMOUS INSECT BITE PELVIS 01/18/2013 911.2 NONVENOMOUS INSECT BITE PELVIS 01/18/2013 911.2 NONVENOMOUS INSECT BITE PELVIS 01/18/2013 911.2 NONVENOMOUS INSECT BITE PELVIS 01/18/2013 911.2 NONVENOMOUS INSECT BITE PELVIS 01/18/2013 LENKAGORDON Granados DDS B 911.2 NONVENOMOUS INSECT BITE PELVIS 01/18/2013 MAX TORRES DDS 911.2 NONVENOMOUS INSECT BITE PELVIS 01/18/2013 ADILIA WHYTE DO 911.2 NONVENOMOUS INSECT BITE PELVIS 01/18/2013 DAMIEN KIM APRN 911.2 NONVENOMOUS INSECT BITE PELVIS 01/18/2013 WHYTE DO, ADILIA K 911.2 NONVENOMOUS INSECT BITE PELVIS 01/18/2013 LINDA SIGALA ADMINISTRATIVE MANAGER, DAMIEN N 911.2 NONVENOMOUS INSECT BITE PELVIS 01/18/2013 MANJINDER ADMINISTRATIVE MANAGER, RENAN R 911.2 NONVENOMOUS INSECT BITE PELVIS 01/18/2013 WHYTE DO, ADILIA K 911.2 NONVENOMOUS INSECT BITE PELVIS 01/18/2013 BRIAN DDS, WARREN D 911.2 NONVENOMOUS INSECT BITE PELVIS 01/18/2013 WHYTE DO, ADILIA K 911.2 NONVENOMOUS INSECT BITE PELVIS 01/18/2013 WHYTE DO, ADILIA K 911.2 NONVENOMOUS INSECT BITE PELVIS 01/18/2013 WON CARMONA, MARIUSZ Qiu 911.2 NONVENOMOUS INSECT BITE PELVIS 01/18/2013 APOORVA RAMIREZ, DANIEL A 911.2 NONVENOMOUS INSECT BITE PELVIS 01/18/2013 RAVEN ADMINISTRATIVE MANAGER, ANSHUL R 911.2 NONVENOMOUS INSECT BITE PELVIS 01/18/2013 YOVANI PEREZN, VONNIE A 911.2 NONVENOMOUS INSECT BITE PELVIS 01/18/2013 WHYTE DO, ADILIA K 911.2 NONVENOMOUS INSECT BITE PELVIS 01/18/2013 VENKATESH ADMINISTRATIVE MANAGER, EMILY Garcia 911.2 NONVENOMOUS INSECT BITE PELVIS 01/18/2013 RONNIE BARRERA RN E 911.2 NONVENOMOUS INSECT BITE PELVIS 01/18/2013 YOVANI PEREZN, VONNIE A 911.2 NONVENOMOUS INSECT BITE PELVIS 01/18/2013 RONNIE BARRERA RN E 911.2 NONVENOMOUS INSECT BITE PELVIS 01/18/2013 ZULEIKA DPM, CHRISTOPHER 911.2 NONVENOMOUS INSECT BITE PELVIS 01/18/2013 YOVANI PEREZN, VONNIE A 911.2 NONVENOMOUS INSECT BITE PELVIS 01/18/2013 WHYTE DO, ADILIA K 911.2 NONVENOMOUS INSECT BITE PELVIS 01/18/2013 RONNIE BARRERA RN E 911.2 NONVENOMOUS INSECT BITE PELVIS 01/18/2013 ZULEIKA DPM, CHRISTOPHER 911.2 NONVENOMOUS INSECT BITE PELVIS 01/18/2013 RONNIE BARRERA RN E 911.2 NONVENOMOUS INSECT BITE PELVIS 01/18/2013 WHYTE DO, ADILIA K 911.2 NONVENOMOUS INSECT BITE PELVIS 01/18/2013 ZULEIKA DPM, CHRISTOPHER 911.2 NONVENOMOUS INSECT BITE PELVIS 01/18/2013 ZULEIKA DPM, CHRISTOPHER 911.2 NONVENOMOUS INSECT BITE PELVIS 01/18/2013 WHYTE DO, ADILIA K 911.2 NONVENOMOUS INSECT BITE PELVIS 01/18/2013 RENAN DUNBAR APRN 911.2 NONVENOMOUS INSECT BITE PELVIS 01/19/2013 112.0 CANDIDIASIS OF MOUTH 01/19/2013 911.0 ABRASION OR FRICTION BURN OF TRUNK WITHOUT INFECTION 01/19/2013 112.0 CANDIDIASIS OF MOUTH 01/19/2013 911.0 ABRASION OR FRICTION BURN OF TRUNK WITHOUT INFECTION 01/19/2013 112.0 CANDIDIASIS OF MOUTH 01/19/2013 911.0 ABRASION OR FRICTION BURN OF TRUNK WITHOUT INFECTION 01/19/2013 112.0 CANDIDIASIS OF MOUTH 01/19/2013 911.0 ABRASION OR FRICTION BURN OF TRUNK WITHOUT INFECTION 01/19/2013 112.0 CANDIDIASIS OF MOUTH 01/19/2013 911.0 ABRASION OR FRICTION BURN OF TRUNK WITHOUT INFECTION 01/19/2013 LENKA DDS, GORDON B 112.0 CANDIDIASIS OF MOUTH 01/19/2013 LENKA DDS, GORDON B 911.0 ABRASION OR FRICTION BURN OF TRUNK WITHOUT INFECTION 01/19/2013 BRIAN DDS, MAX J 112.0 CANDIDIASIS OF MOUTH 01/19/2013 BRIAN DDS, MAX J 911.0 ABRASION OR FRICTION BURN OF TRUNK WITHOUT INFECTION 01/19/2013 JOSUE WHYTE DOA K 112.0 CANDIDIASIS OF MOUTH 01/19/2013 PATO DUEÑAS, ADILIA K 911.0 ABRASION OR FRICTION BURN OF TRUNK WITHOUT INFECTION 01/19/2013 DAMIEN KIM APRN N 112.0 CANDIDIASIS OF MOUTH 01/19/2013 DAMIEN KIM APRN N 911.0 ABRASION OR FRICTION BURN OF TRUNK WITHOUT INFECTION 01/19/2013 PATO DUEÑAS ADILIA K 112.0 CANDIDIASIS OF MOUTH 01/19/2013 PATO DUEÑAS, ADILIA K 911.0 ABRASION OR FRICTION BURN OF TRUNK WITHOUT INFECTION 01/19/2013 DAMIEN KIM APRN N 112.0 CANDIDIASIS OF MOUTH 01/19/2013 LINDA SIGALA APRN, DAMIEN N 911.0 ABRASION OR FRICTION BURN OF TRUNK WITHOUT INFECTION 01/19/2013 MANJINDER PEREZNPAIGERENAN R 112.0 CANDIDIASIS OF MOUTH 01/19/2013 MANJINDER ADMINISTRATIVE MANAGER, RENAN R 911.0 ABRASION OR FRICTION BURN OF TRUNK WITHOUT INFECTION 01/19/2013 WHYTE DO, ADILIA K 112.0 CANDIDIASIS OF MOUTH 01/19/2013 WHYTE DO, ADILIA K 911.0 ABRASION OR FRICTION BURN OF TRUNK WITHOUT INFECTION 01/19/2013 WHITE DDS, WARREN D 112.0 CANDIDIASIS OF MOUTH 01/19/2013 WHITE DDS, WARREN D 911.0 ABRASION OR FRICTION BURN OF TRUNK WITHOUT INFECTION 01/19/2013 WHYTE DO, ADILIA K 112.0 CANDIDIASIS OF MOUTH 01/19/2013 WHYTE DO, ADILIA K 911.0 ABRASION OR FRICTION BURN OF TRUNK WITHOUT INFECTION 01/19/2013 WHYTE DO, ADILIA K 112.0 CANDIDIASIS OF MOUTH 01/19/2013 WHYTE DO, ADILIA K 911.0 ABRASION OR FRICTION BURN OF TRUNK WITHOUT INFECTION 01/19/2013 WON SIGALAPCMARIUSZ B 112.0 CANDIDIASIS OF MOUTH 01/19/2013 WON SIGALAPCMARIUSZ B 911.0 ABRASION OR FRICTION BURN OF TRUNK WITHOUT INFECTION 01/19/2013 DANIEL GUERIN PHD 112.0 CANDIDIASIS OF MOUTH 01/19/2013 DANIEL GUERIN PHD 911.0 ABRASION OR FRICTION BURN OF TRUNK WITHOUT INFECTION 01/19/2013 ANSHUL CARBAJAL APRN R 112.0 CANDIDIASIS OF MOUTH 01/19/2013 ANSHUL CARBAJAL APRN R 911.0 ABRASION OR FRICTION BURN OF TRUNK WITHOUT INFECTION 01/19/2013 VEL PINA APRNIDI A 112.0 CANDIDIASIS OF MOUTH 01/19/2013 YOVANI TOVAR VONNIE A 911.0 ABRASION OR FRICTION BURN OF TRUNK WITHOUT INFECTION 01/19/2013 WHYTE DO, ADILIA K 112.0 CANDIDIASIS OF MOUTH 01/19/2013 WHYTE DO, ADILIA K 911.0 ABRASION OR FRICTION BURN OF TRUNK WITHOUT INFECTION 01/19/2013 MADL ADMINISTRATIVE MANAGER, EMILY L 112.0 CANDIDIASIS OF MOUTH 01/19/2013 MADJose ADMINISTRATIVE MANAGER, EMILY L 911.0 ABRASION OR FRICTION BURN OF TRUNK WITHOUT INFECTION 01/19/2013 HOLLY KEVIN, RONNIE E 112.0 CANDIDIASIS OF MOUTH 01/19/2013 HOLLY KEVIN, RONNIE E 911.0 ABRASION OR FRICTION BURN OF TRUNK WITHOUT INFECTION 01/19/2013 YOVANI ADMINISTRATIVE MANAGER, VONNIE A 112.0 CANDIDIASIS OF MOUTH 01/19/2013 YOVANI ADMINISTRATIVE MANAGER, VONNIE A 911.0 ABRASION OR FRICTION BURN OF TRUNK WITHOUT INFECTION 01/19/2013 HOLLY KEVIN, RONNIE E 112.0 CANDIDIASIS OF MOUTH 01/19/2013 HOLLY KEVIN, RONNIE E 911.0 ABRASION OR FRICTION BURN OF TRUNK WITHOUT INFECTION 01/19/2013 ZULEIKA DPM, CHRISTOPHER 112.0 CANDIDIASIS OF MOUTH 01/19/2013 ZULEIKA DPM, CHRISTOPHER 911.0 ABRASION OR FRICTION BURN OF TRUNK WITHOUT INFECTION 01/19/2013 YOVANI ADMINISTRATIVE MANAGER, VONNIE A 112.0 CANDIDIASIS OF MOUTH 01/19/2013 YOVANI ADMINISTRATIVE MANAGER, VONNIE A 911.0 ABRASION OR FRICTION BURN OF TRUNK WITHOUT INFECTION 01/19/2013 WHYTE DO, ADILIA K 112.0 CANDIDIASIS OF MOUTH 01/19/2013 WHYTE DO, ADILIA K 911.0 ABRASION OR FRICTION BURN OF TRUNK WITHOUT INFECTION 01/19/2013 HOLLY KEVIN, RONNIE E 112.0 CANDIDIASIS OF MOUTH 01/19/2013 HOLLY KEVIN, RONNIE E 911.0 ABRASION OR FRICTION BURN OF TRUNK WITHOUT INFECTION 01/19/2013 ZULEIKA DPM, CHRISTOPHER 112.0 CANDIDIASIS OF MOUTH 01/19/2013 ZULEIKA DPM, CHRISTOPHER 911.0 ABRASION OR FRICTION BURN OF TRUNK WITHOUT INFECTION 01/19/2013 HOLLY KEVIN, RONNIE E 112.0 CANDIDIASIS OF MOUTH 01/19/2013 HOLLY KEVIN, RONNIE E 911.0 ABRASION OR FRICTION BURN OF TRUNK WITHOUT INFECTION 01/19/2013 WHYTE DO, ADILIA K 112.0 CANDIDIASIS OF MOUTH 01/19/2013 WHYTE DO, ADILIA K 911.0 ABRASION OR FRICTION BURN OF TRUNK WITHOUT INFECTION 01/19/2013 ZULEIKA DPM, CHRISTOPHER 112.0 CANDIDIASIS OF MOUTH 01/19/2013 ZULEIKA DPM, CHRISTOPHER 911.0 ABRASION OR FRICTION BURN OF TRUNK WITHOUT INFECTION 01/19/2013 ZULEIKA DPM, CHRISTOPHER 112.0 CANDIDIASIS OF MOUTH 01/19/2013 ZULEIKA DPM, CHRISTOPHER 911.0 ABRASION OR FRICTION BURN OF TRUNK WITHOUT INFECTION 01/19/2013 WHYTE DO, ADILIA K 112.0 CANDIDIASIS OF MOUTH 01/19/2013 WHYTE DO, ADILIA K 911.0 ABRASION OR FRICTION BURN OF TRUNK WITHOUT INFECTION 01/19/2013 MANJINDER ADMINISTRATIVE MANAGER, RENAN R 112.0 CANDIDIASIS OF MOUTH 01/19/2013 MANJIDNER ADMINISTRATIVE MANAGER, RENAN R 911.0 ABRASION OR FRICTION BURN OF TRUNK WITHOUT INFECTION 01/27/2013 ALANNA MAST, ANANDA M Ot 710.3 DERMATOMYOSITIS 01/27/2013 ALANNA MAST, ANANDA Fernandez Ot V74.8 SCREEN-BACTERIAL DIS NEC 02/08/2013 682.9 CELLULITIS AND ABSCESS OF UNSPECIFIED SITES 02/08/2013 682.9 CELLULITIS AND ABSCESS OF UNSPECIFIED SITES 02/08/2013 682.9 CELLULITIS AND ABSCESS OF UNSPECIFIED SITES 02/08/2013 682.9 CELLULITIS AND ABSCESS OF UNSPECIFIED SITES 02/08/2013 LENKA TOSCANO, GORDON Qiu 682.9 CELLULITIS AND ABSCESS OF UNSPECIFIED SITES 02/08/2013 BRIAN TOSCANO, MAX Fraga 682.9 CELLULITIS AND ABSCESS OF UNSPECIFIED SITES 02/08/2013 WHYTE DO, ADILIA K 682.9 CELLULITIS AND ABSCESS OF UNSPECIFIED SITES 02/08/2013 LINDA SIGALA APRN, DAMIEN N 682.9 CELLULITIS AND ABSCESS OF UNSPECIFIED SITES 02/08/2013 WHYTE DO, ADILIA K 682.9 CELLULITIS AND ABSCESS OF UNSPECIFIED SITES 02/08/2013 LINDA SIGALA APRN DAMIEN N 682.9 CELLULITIS AND ABSCESS OF UNSPECIFIED SITES 02/08/2013 MANJINDER TOVAR, RENAN R 682.9 CELLULITIS AND ABSCESS OF UNSPECIFIED SITES 02/08/2013 WHYTE DO, ADILIA K 682.9 CELLULITIS AND ABSCESS OF UNSPECIFIED SITES 02/08/2013 WARREN TORRES DDS 682.9 CELLULITIS AND ABSCESS OF UNSPECIFIED SITES 02/08/2013 WHYTE DO, ADILIA K 682.9 CELLULITIS AND ABSCESS OF UNSPECIFIED SITES 02/08/2013 WHYTE DO, ADILIA K 682.9 CELLULITIS AND ABSCESS OF UNSPECIFIED SITES 02/08/2013 WON CARMONA, MARIUSZ B 682.9 CELLULITIS AND ABSCESS OF UNSPECIFIED SITES 02/08/2013 APOORVA RAMIREZ, DANIEL A 682.9 CELLULITIS AND ABSCESS OF UNSPECIFIED SITES 02/08/2013 RAVEN ADMINISTRATIVE MANAGER, ANSHUL Ortega 682.9 CELLULITIS AND ABSCESS OF UNSPECIFIED SITES 02/08/2013 YOVANI PEREZN, VONNIE A 682.9 CELLULITIS AND ABSCESS OF UNSPECIFIED SITES 02/08/2013 JOSUE WHYTE DOA K 682.9 CELLULITIS AND ABSCESS OF UNSPECIFIED SITES 02/08/2013 VENKATESH ADMINISTRATIVE MANAGEREMILY 682.9 CELLULITIS AND ABSCESS OF UNSPECIFIED SITES 02/08/2013 HOLLY KEVIN, RONNIE E 682.9 CELLULITIS AND ABSCESS OF UNSPECIFIED SITES 02/08/2013 YOVANI PEREZN, VONNIE A 682.9 CELLULITIS AND ABSCESS OF UNSPECIFIED SITES 02/08/2013 HOLLY KEVIN, RONNIE E 682.9 CELLULITIS AND ABSCESS OF UNSPECIFIED SITES 02/08/2013 ZULEIKA HERRON, CHRISTOPHER 682.9 CELLULITIS AND ABSCESS OF UNSPECIFIED SITES 02/08/2013 YOVANI TOVAR, VONNIE A 682.9 CELLULITIS AND ABSCESS OF UNSPECIFIED SITES 02/08/2013 WHYTE JOSUE DUEÑASA K 682.9 CELLULITIS AND ABSCESS OF UNSPECIFIED SITES 02/08/2013 HOLLY KEVIN, RONNIE E 682.9 CELLULITIS AND ABSCESS OF UNSPECIFIED SITES 02/08/2013 ZULEIKA DPM, CHRISTOPHER 682.9 CELLULITIS AND ABSCESS OF UNSPECIFIED SITES 02/08/2013 HOLLY KEVIN, RONNIE E 682.9 CELLULITIS AND ABSCESS OF UNSPECIFIED SITES 02/08/2013 JOSUE WHYTE DOA K 682.9 CELLULITIS AND ABSCESS OF UNSPECIFIED SITES 02/08/2013 ZULEIKA DPM, CHRISTOPHER 682.9 CELLULITIS AND ABSCESS OF UNSPECIFIED SITES 02/08/2013 ZULEIKA DPM, CHRISTOPHER 682.9 CELLULITIS AND ABSCESS OF UNSPECIFIED SITES 02/08/2013 WHYTE DO ADILIA K 682.9 CELLULITIS AND ABSCESS OF UNSPECIFIED SITES 02/08/2013 RENAN DUNBAR APRN 682.9 CELLULITIS AND ABSCESS OF UNSPECIFIED SITES 02/16/2013 493.90 ASTHMA UNSPECIFIED 02/16/2013 493.90 ASTHMA UNSPECIFIED 02/16/2013 493.90 ASTHMA UNSPECIFIED 02/16/2013 LENKA DDS, GORDON B 493.90 ASTHMA UNSPECIFIED 02/16/2013 BRIAN DDS, MAX Fraga 493.90 ASTHMA UNSPECIFIED 02/16/2013 WHYTE DO, ADILIA K 493.90 ASTHMA UNSPECIFIED 02/16/2013 MCKEON CASHERO ADMINISTRATIVE MANAGER, DAMIEN N 493.90 ASTHMA UNSPECIFIED 02/16/2013 WHYTE DO, ADILIA K 493.90 ASTHMA UNSPECIFIED 02/16/2013 MCKEON CASHERO ADMINISTRATIVE MANAGER, DAMIEN N 493.90 ASTHMA UNSPECIFIED 02/16/2013 MANJINDER ADMINISTRATIVE MANAGER, RENAN R 493.90 ASTHMA UNSPECIFIED 02/16/2013 WHYTE DO, ADILIA K 493.90 ASTHMA UNSPECIFIED 02/16/2013 BRIAN DDS, WARREN Kuo 493.90 ASTHMA UNSPECIFIED 02/16/2013 WHYTE DO, ADILIA K 493.90 ASTHMA UNSPECIFIED 02/16/2013 WHYTE DO, ADILIA K 493.90 ASTHMA UNSPECIFIED 02/16/2013 WON SIGALAPC, MARIUSZ B 493.90 ASTHMA UNSPECIFIED 02/16/2013 APOORVA PHD, DANIEL Pickens 493.90 ASTHMA UNSPECIFIED 02/16/2013 RAVEN ADMINISTRATIVE MANAGER, ANSHUL Ortega 493.90 ASTHMA UNSPECIFIED 02/16/2013 YOVANI ADMINISTRATIVE MANAGER, VONNIE A 493.90 ASTHMA UNSPECIFIED 02/16/2013 WHYTE DO, ADILIA K 493.90 ASTHMA UNSPECIFIED 02/16/2013 VENKATESH ADMINISTRATIVE MANAGER, EMILY Garcia 493.90 ASTHMA UNSPECIFIED 02/16/2013 HOLLY KEVIN, RONNIE E 493.90 ASTHMA UNSPECIFIED 02/16/2013 YOVANI ADMINISTRATIVE MANAGER, VONNIE A 493.90 ASTHMA UNSPECIFIED 02/16/2013 HOLLY KEVIN, RONNIE E 493.90 ASTHMA UNSPECIFIED 02/16/2013 ZULEIKA DPM, CHRISTOPHER 493.90 ASTHMA UNSPECIFIED 02/16/2013 YOVANI ADMINISTRATIVE MANAGER, VONNIE A 493.90 ASTHMA UNSPECIFIED 02/16/2013 WHYTE DO, ADILIA K 493.90 ASTHMA UNSPECIFIED 02/16/2013 HOLLY KEVIN, RONNIE E 493.90 ASTHMA UNSPECIFIED 02/16/2013 ZULEIKA DPM, CHRISTOPHER 493.90 ASTHMA UNSPECIFIED 02/16/2013 HOLLY KEVIN, RONNIE E 493.90 ASTHMA UNSPECIFIED 02/16/2013 WHYTE DO, ADILIA K 493.90 ASTHMA UNSPECIFIED 02/16/2013 ZULEIKA DPM, CHRISTOPHER 493.90 ASTHMA UNSPECIFIED 02/16/2013 ZULEIKA DPM, CHRISTOPHER 493.90 ASTHMA UNSPECIFIED 02/16/2013 WHYTE DO, ADILIA K 493.90 ASTHMA UNSPECIFIED 02/16/2013 MANJINDER TOVAR, RENAN R 493.90 ASTHMA UNSPECIFIED 02/28/2013 ARUNA MAST, VISHNU A Ot 599.0 URIN TRACT INFECTION NOS 02/28/2013 ARUNA MAST, VISHNU A Ot 789.09 ABDOMINAL PAIN, OTHER SPECIFIED SITE 03/08/2013 625.9 UNSPECIFIED SYMPTOM ASSOCIATED WITH FEMALE GENITAL ORGANS 03/08/2013 V72.31 AIRCRAFT STRUCTURAL DESIGN ENGINEER EXAM, ROUTINE 03/08/2013 625.9 UNSPECIFIED SYMPTOM ASSOCIATED WITH FEMALE GENITAL ORGANS 03/08/2013 V72.31 AIRCRAFT STRUCTURAL DESIGN ENGINEER EXAM, ROUTINE 03/08/2013 LENKA DDSJIMBOUR B 625.9 UNSPECIFIED SYMPTOM ASSOCIATED WITH FEMALE GENITAL ORGANS 03/08/2013 LENKA DDS, GORDON B V72.31 AIRCRAFT STRUCTURAL DESIGN ENGINEER EXAM, ROUTINE 03/08/2013 BRIAN SANCHEZSMAX 625.9 UNSPECIFIED SYMPTOM ASSOCIATED WITH FEMALE GENITAL ORGANS 03/08/2013 BRIAN SANCHEZSMAX J V72.31 AIRCRAFT STRUCTURAL DESIGN ENGINEER EXAM, ROUTINE 03/08/2013 WHYTE DO, ADILIA K 625.9 UNSPECIFIED SYMPTOM ASSOCIATED WITH FEMALE GENITAL ORGANS 03/08/2013 WHYTE DO, ADILIA K V72.31 AIRCRAFT STRUCTURAL DESIGN ENGINEER EXAM, ROUTINE 03/08/2013 OCTAVIA KIM APRNCY N 625.9 UNSPECIFIED SYMPTOM ASSOCIATED WITH FEMALE GENITAL ORGANS 03/08/2013 LINDA SIGALA APRN DAMIEN N V72.31 AIRCRAFT STRUCTURAL DESIGN ENGINEER EXAM, ROUTINE 03/08/2013 WHYTE DO, ADILIA K 625.9 UNSPECIFIED SYMPTOM ASSOCIATED WITH FEMALE GENITAL ORGANS 03/08/2013 WHYTE DO, ADILIA K V72.31 AIRCRAFT STRUCTURAL DESIGN ENGINEER EXAM, ROUTINE 03/08/2013 LINDA SIGALA APRN DAMIEN N 625.9 UNSPECIFIED SYMPTOM ASSOCIATED WITH FEMALE GENITAL ORGANS 03/08/2013 LINDA SIGALA APRN DAMIEN N V72.31 AIRCRAFT STRUCTURAL DESIGN ENGINEER EXAM, ROUTINE 03/08/2013 RENAN DUNBAR APRN R 625.9 UNSPECIFIED SYMPTOM ASSOCIATED WITH FEMALE GENITAL ORGANS 03/08/2013 RENAN DUNBAR APRN R V72.31 AIRCRAFT STRUCTURAL DESIGN ENGINEER EXAM, ROUTINE 03/08/2013 WHYTE DO, ADILIA K 625.9 UNSPECIFIED SYMPTOM ASSOCIATED WITH FEMALE GENITAL ORGANS 03/08/2013 WHYTE DO, ADILIA K V72.31 AIRCRAFT STRUCTURAL DESIGN ENGINEER EXAM, ROUTINE 03/08/2013 WHITE DDS, WARREN Kuo 625.9 UNSPECIFIED SYMPTOM ASSOCIATED WITH FEMALE GENITAL ORGANS 03/08/2013 WHITE DDS, WARREN Kuo V72.31 AIRCRAFT STRUCTURAL DESIGN ENGINEER EXAM, ROUTINE 03/08/2013 WHYTE DO, ADILIA K 625.9 UNSPECIFIED SYMPTOM ASSOCIATED WITH FEMALE GENITAL ORGANS 03/08/2013 WHYTE DO, ADILIA K V72.31 AIRCRAFT STRUCTURAL DESIGN ENGINEER EXAM, ROUTINE 03/08/2013 WHYTE DO, ADILIA K 625.9 UNSPECIFIED SYMPTOM ASSOCIATED WITH FEMALE GENITAL ORGANS 03/08/2013 WHYTE DO, ADILIA K V72.31 AIRCRAFT STRUCTURAL DESIGN ENGINEER EXAM, ROUTINE 03/08/2013 MARIUSZ UPTON LCPC 625.9 UNSPECIFIED SYMPTOM ASSOCIATED WITH FEMALE GENITAL ORGANS 03/08/2013 MARIUSZ UPTON LCPC V72.31 AIRCRAFT STRUCTURAL DESIGN ENGINEER EXAM, ROUTINE 03/08/2013 DANIEL GUERIN PHD 625.9 UNSPECIFIED SYMPTOM ASSOCIATED WITH FEMALE GENITAL ORGANS 03/08/2013 DANIEL GUERIN PHD V72.31 AIRCRAFT STRUCTURAL DESIGN ENGINEER EXAM, ROUTINE 03/08/2013 CECY CARBAJAL APRNIA R 625.9 UNSPECIFIED SYMPTOM ASSOCIATED WITH FEMALE GENITAL ORGANS 03/08/2013 RAVEN TOVAR ANSHUL R V72.31 AIRCRAFT STRUCTURAL DESIGN ENGINEER EXAM, ROUTINE 03/08/2013 VEL PINA APRNIDI A 625.9 UNSPECIFIED SYMPTOM ASSOCIATED WITH FEMALE GENITAL ORGANS 03/08/2013 YOVANI TOVAR VONNIE A V72.31 AIRCRAFT STRUCTURAL DESIGN ENGINEER EXAM, ROUTINE 03/08/2013 WHYTE DO, ADILIA K 625.9 UNSPECIFIED SYMPTOM ASSOCIATED WITH FEMALE GENITAL ORGANS 03/08/2013 WHYTE DO, ADILIA K V72.31 AIRCRAFT STRUCTURAL DESIGN ENGINEER EXAM, ROUTINE 03/08/2013 VENKATESH TOVAR EMILY L 625.9 UNSPECIFIED SYMPTOM ASSOCIATED WITH FEMALE GENITAL ORGANS 03/08/2013 VENKATESH TOVAR, EMILY L V72.31 AIRCRAFT STRUCTURAL DESIGN ENGINEER EXAM, ROUTINE 03/08/2013 RONNIE BARRERA RN 625.9 UNSPECIFIED SYMPTOM ASSOCIATED WITH FEMALE GENITAL ORGANS 03/08/2013 RONNIE BARRERA RN V72.31 AIRCRAFT STRUCTURAL DESIGN ENGINEER EXAM, ROUTINE 03/08/2013 YOVANI TOVAR VONNIE A 625.9 UNSPECIFIED SYMPTOM ASSOCIATED WITH FEMALE GENITAL ORGANS 03/08/2013 YOVANI TOVAR VONNIE A V72.31 AIRCRAFT STRUCTURAL DESIGN ENGINEER EXAM, ROUTINE 03/08/2013 RONNIE BARRERA RN 625.9 UNSPECIFIED SYMPTOM ASSOCIATED WITH FEMALE GENITAL ORGANS 03/08/2013 RONNIE BARRERA RN V72.31 AIRCRAFT STRUCTURAL DESIGN ENGINEER EXAM, ROUTINE 03/08/2013 ZULEIKA DPM, CHRISTOPHER 625.9 UNSPECIFIED SYMPTOM ASSOCIATED WITH FEMALE GENITAL ORGANS 03/08/2013 ZULEIKA DPM, CHRISTOPHER V72.31 AIRCRAFT STRUCTURAL DESIGN ENGINEER EXAM, ROUTINE 03/08/2013 VONNIE PINA APRN 625.9 UNSPECIFIED SYMPTOM ASSOCIATED WITH FEMALE GENITAL ORGANS 03/08/2013 VONNIE PINA APRN A V72.31 AIRCRAFT STRUCTURAL DESIGN ENGINEER EXAM, ROUTINE 03/08/2013 WHYTE DO, ADILIA K 625.9 UNSPECIFIED SYMPTOM ASSOCIATED WITH FEMALE GENITAL ORGANS 03/08/2013 WHYTE DO, ADILIA K V72.31 AIRCRAFT STRUCTURAL DESIGN ENGINEER EXAM, ROUTINE 03/08/2013 RONNIE BARRERA RN 625.9 UNSPECIFIED SYMPTOM ASSOCIATED WITH FEMALE GENITAL ORGANS 03/08/2013 RONNIE BARRERA RN V72.31 AIRCRAFT STRUCTURAL DESIGN ENGINEER EXAM, ROUTINE 03/08/2013 ZULEIKA DPM, CHRISTOPHER 625.9 UNSPECIFIED SYMPTOM ASSOCIATED WITH FEMALE GENITAL ORGANS 03/08/2013 ZULEIKA DPM, CHRISTOPHER V72.31 AIRCRAFT STRUCTURAL DESIGN ENGINEER EXAM, ROUTINE 03/08/2013 RONNIE BARRERA RN 625.9 UNSPECIFIED SYMPTOM ASSOCIATED WITH FEMALE GENITAL ORGANS 03/08/2013 RONNIE BARRERA RN V72.31 AIRCRAFT STRUCTURAL DESIGN ENGINEER EXAM, ROUTINE 03/08/2013 WHYTE DO, ADILIA K 625.9 UNSPECIFIED SYMPTOM ASSOCIATED WITH FEMALE GENITAL ORGANS 03/08/2013 WHYTE DO, ADILIA K V72.31 AIRCRAFT STRUCTURAL DESIGN ENGINEER EXAM, ROUTINE 03/08/2013 ZULEIKA DPM, CHRISTOPHER 625.9 UNSPECIFIED SYMPTOM ASSOCIATED WITH FEMALE GENITAL ORGANS 03/08/2013 ZULEIKA DPM, CHRISTOPHER V72.31 AIRCRAFT STRUCTURAL DESIGN ENGINEER EXAM, ROUTINE 03/08/2013 ZULEIKA DPM, CHRISTOPHER 625.9 UNSPECIFIED SYMPTOM ASSOCIATED WITH FEMALE GENITAL ORGANS 03/08/2013 ZULEIKA DPM, CHRISTOPHER V72.31 AIRCRAFT STRUCTURAL DESIGN ENGINEER EXAM, ROUTINE 03/08/2013 WHYTE DO, ADILIA K 625.9 UNSPECIFIED SYMPTOM ASSOCIATED WITH FEMALE GENITAL ORGANS 03/08/2013 WHYTE DO, ADILIA K V72.31 AIRCRAFT STRUCTURAL DESIGN ENGINEER EXAM, ROUTINE 03/08/2013 RENAN DUNBAR APRN R 625.9 UNSPECIFIED SYMPTOM ASSOCIATED WITH FEMALE GENITAL ORGANS 03/08/2013 MANJINDER TOVAR RENAN R V72.31 AIRCRAFT STRUCTURAL DESIGN ENGINEER EXAM, ROUTINE 03/16/2013 728.85 SPASM OF MUSCLE 03/16/2013 782.0 DISTURBANCE OF SKIN SENSATION 03/16/2013 782.1 RASH AND OTHER NONSPECIFIC SKIN ERUPTION 03/16/2013 728.85 SPASM OF MUSCLE 03/16/2013 782.0 DISTURBANCE OF SKIN SENSATION 03/16/2013 782.1 RASH AND OTHER NONSPECIFIC SKIN ERUPTION 03/16/2013 LENKA DDS, GORDON B 728.85 SPASM OF MUSCLE 03/16/2013 LENKA DDS, GORDON B 782.0 DISTURBANCE OF SKIN SENSATION 03/16/2013 LENKA DDS, GORDON B 782.1 RASH AND OTHER NONSPECIFIC SKIN ERUPTION 03/16/2013 WHITE DDS, MAX J 728.85 SPASM OF MUSCLE 03/16/2013 WHITE DDS, MAX J 782.0 DISTURBANCE OF SKIN SENSATION 03/16/2013 WHITE DDS, MAX J 782.1 RASH AND OTHER NONSPECIFIC SKIN ERUPTION 03/16/2013 WHYTE DO, ADILIA K 728.85 SPASM OF MUSCLE 03/16/2013 WHYTE DO, ADILIA K 782.0 DISTURBANCE OF SKIN SENSATION 03/16/2013 WHYTE DO, ADILIA K 782.1 RASH AND OTHER NONSPECIFIC SKIN ERUPTION 03/16/2013 MCKEON CASHERO ADMINISTRATIVE MANAGER, DAMIEN N 728.85 SPASM OF MUSCLE 03/16/2013 MCKEON CASHERO ADMINISTRATIVE MANAGER, DAMIEN N 782.0 DISTURBANCE OF SKIN SENSATION 03/16/2013 MCKEON CASHERO ADMINISTRATIVE MANAGER, DAMIEN N 782.1 RASH AND OTHER NONSPECIFIC SKIN ERUPTION 03/16/2013 WHYTE DO, ADILIA K 728.85 SPASM OF MUSCLE 03/16/2013 WHYTE DO, ADILIA K 782.0 DISTURBANCE OF SKIN SENSATION 03/16/2013 WHYTE DO, ADILIA K 782.1 RASH AND OTHER NONSPECIFIC SKIN ERUPTION 03/16/2013 MCKEON CASHERO ADMINISTRATIVE MANAGER, DAMIEN N 728.85 SPASM OF MUSCLE 03/16/2013 MCKEON CASHERO ADMINISTRATIVE MANAGER, DAMIEN N 782.0 DISTURBANCE OF SKIN SENSATION 03/16/2013 MCKEON CASHERO ADMINISTRATIVE MANAGER, DAMIEN N 782.1 RASH AND OTHER NONSPECIFIC SKIN ERUPTION 03/16/2013 MANJINDER TOVAR RENAN R 728.85 SPASM OF MUSCLE 03/16/2013 MANJINDER TOVAR RENAN R 782.0 DISTURBANCE OF SKIN SENSATION 03/16/2013 MANJINDER ADMINISTRATIVE MANAGER, RENAN R 782.1 RASH AND OTHER NONSPECIFIC SKIN ERUPTION 03/16/2013 WHYTE DO, ADILIA K 728.85 SPASM OF MUSCLE 03/16/2013 WHYTE DO, ADILIA K 782.0 DISTURBANCE OF SKIN SENSATION 03/16/2013 WHYTE DO, ADILIA K 782.1 RASH AND OTHER NONSPECIFIC SKIN ERUPTION 03/16/2013 WHITE DDS, WARREN D 728.85 SPASM OF MUSCLE 03/16/2013 WHITE DDS, WARREN D 782.0 DISTURBANCE OF SKIN SENSATION 03/16/2013 WHITE DDS, WARREN D 782.1 RASH AND OTHER NONSPECIFIC SKIN ERUPTION 03/16/2013 WHYTE DO, ADILIA K 728.85 SPASM OF MUSCLE 03/16/2013 WHYTE DO, ADILIA K 782.0 DISTURBANCE OF SKIN SENSATION 03/16/2013 WHYTE DO, ADILIA K 782.1 RASH AND OTHER NONSPECIFIC SKIN ERUPTION 03/16/2013 WHYTE DO, ADILIA K 728.85 SPASM OF MUSCLE 03/16/2013 WHYTE DO, ADILIA K 782.0 DISTURBANCE OF SKIN SENSATION 03/16/2013 WHYTE DO, ADILIA K 782.1 RASH AND OTHER NONSPECIFIC SKIN ERUPTION 03/16/2013 WON COPPER TAPPER, MARIUSZ B 728.85 SPASM OF MUSCLE 03/16/2013 WON COPPER TAPPER, MARIUSZ B 782.0 DISTURBANCE OF SKIN SENSATION 03/16/2013 WON COPPER TAPPER, MARIUSZ B 782.1 RASH AND OTHER NONSPECIFIC SKIN ERUPTION 03/16/2013 DANIEL GUERIN PHD 728.85 SPASM OF MUSCLE 03/16/2013 DANIEL GUERIN PHD 782.0 DISTURBANCE OF SKIN SENSATION 03/16/2013 APOORVA RAMIREZ, DANIEL Pickens 782.1 RASH AND OTHER NONSPECIFIC SKIN ERUPTION 03/16/2013 RAVEN PEREZN, ANSHUL R 728.85 SPASM OF MUSCLE 03/16/2013 RAVEN PEREZN, ANSHUL R 782.0 DISTURBANCE OF SKIN SENSATION 03/16/2013 RAVEN PEREZN, ANSHUL R 782.1 RASH AND OTHER NONSPECIFIC SKIN ERUPTION 03/16/2013 YOVANI ADMINISTRATIVE MANAGER, VONNIE A 728.85 SPASM OF MUSCLE 03/16/2013 YOVANI ADMINISTRATIVE MANAGER VONNIE A 782.0 DISTURBANCE OF SKIN SENSATION 03/16/2013 YOVANI ADMINISTRATIVE MANAGER, VONNIE A 782.1 RASH AND OTHER NONSPECIFIC SKIN ERUPTION 03/16/2013 WHYTE DO, ADILIA K 728.85 SPASM OF MUSCLE 03/16/2013 WHYTE DO, ADILIA K 782.0 DISTURBANCE OF SKIN SENSATION 03/16/2013 WHYTE DO, ADILIA K 782.1 RASH AND OTHER NONSPECIFIC SKIN ERUPTION 03/16/2013 MADL ADMINISTRATIVE MANAGER, EMILY L 728.85 SPASM OF MUSCLE 03/16/2013 MADL ADMINISTRATIVE MANAGER, EMILY L 782.0 DISTURBANCE OF SKIN SENSATION 03/16/2013 MADL ADMINISTRATIVE MANAGER, EMILY L 782.1 RASH AND OTHER NONSPECIFIC SKIN ERUPTION 03/16/2013 HOLLY KEVIN, RONNIE E 728.85 SPASM OF MUSCLE 03/16/2013 HOLLY KEVIN, RONNIE E 782.0 DISTURBANCE OF SKIN SENSATION 03/16/2013 HOLLY KEVIN, RONNIE E 782.1 RASH AND OTHER NONSPECIFIC SKIN ERUPTION 03/16/2013 YOVANI ADMINISTRATIVE MANAGER, VONNIE A 728.85 SPASM OF MUSCLE 03/16/2013 YOVANI ADMINISTRATIVE MANAGER, VONNIE A 782.0 DISTURBANCE OF SKIN SENSATION 03/16/2013 YOVANI ADMINISTRATIVE MANAGER, VONNIE A 782.1 RASH AND OTHER NONSPECIFIC SKIN ERUPTION 03/16/2013 HOLLY KEVIN, RONNIE E 728.85 SPASM OF MUSCLE 03/16/2013 HOLLY KEVIN, RONNIE E 782.0 DISTURBANCE OF SKIN SENSATION 03/16/2013 HOLLY KEVIN, RONNIE E 782.1 RASH AND OTHER NONSPECIFIC SKIN ERUPTION 03/16/2013 ZULEIKA DPM, CHRISTOPHER 728.85 SPASM OF MUSCLE 03/16/2013 ZULEIKA DPM, CHRISTOPHER 782.0 DISTURBANCE OF SKIN SENSATION 03/16/2013 ZULEIKA DPM, CHRISTOPHER 782.1 RASH AND OTHER NONSPECIFIC SKIN ERUPTION 03/16/2013 YOVANI ADMINISTRATIVE MANAGER, VONNIE A 728.85 SPASM OF MUSCLE 03/16/2013 YOVANI ADMINISTRATIVE MANAGER, VONNIE A 782.0 DISTURBANCE OF SKIN SENSATION 03/16/2013 YOVANI ADMINISTRATIVE MANAGER, VONNIE A 782.1 RASH AND OTHER NONSPECIFIC SKIN ERUPTION 03/16/2013 WHYTE DO, ADILIA K 728.85 SPASM OF MUSCLE 03/16/2013 WHYTE DO, ADILIA K 782.0 DISTURBANCE OF SKIN SENSATION 03/16/2013 WHYTE DO, ADILIA K 782.1 RASH AND OTHER NONSPECIFIC SKIN ERUPTION 03/16/2013 HOLLY RN, RONNIE E 728.85 SPASM OF MUSCLE 03/16/2013 HOLLY RN, RONNIE E 782.0 DISTURBANCE OF SKIN SENSATION 03/16/2013 BARRERA RN, RONNIE E 782.1 RASH AND OTHER NONSPECIFIC SKIN ERUPTION 03/16/2013 ZULEIKA DPM, CHRISTOPHER 728.85 SPASM OF MUSCLE 03/16/2013 ZULEIKA DPM, CHRISTOPHER 782.0 DISTURBANCE OF SKIN SENSATION 03/16/2013 ZULEIKA DPM, CHRISTOPHER 782.1 RASH AND OTHER NONSPECIFIC SKIN ERUPTION 03/16/2013 HOLLY KEVIN, RONNIE E 728.85 SPASM OF MUSCLE 03/16/2013 HOLLY KEVIN, RONNIE E 782.0 DISTURBANCE OF SKIN SENSATION 03/16/2013 HOLLY KEVIN, RONNIE E 782.1 RASH AND OTHER NONSPECIFIC SKIN ERUPTION 03/16/2013 WHYTE DO, ADILIA K 728.85 SPASM OF MUSCLE 03/16/2013 WHYTE DO, ADILIA K 782.0 DISTURBANCE OF SKIN SENSATION 03/16/2013 WHYTE DO, ADILIA K 782.1 RASH AND OTHER NONSPECIFIC SKIN ERUPTION 03/16/2013 ZULEIKA DPM, CHRISTOPHER 728.85 SPASM OF MUSCLE 03/16/2013 ZULEIKA DPM, CHRISTOPHER 782.0 DISTURBANCE OF SKIN SENSATION 03/16/2013 ZULEIKA DPM, CHRISTOPHER 782.1 RASH AND OTHER NONSPECIFIC SKIN ERUPTION 03/16/2013 ZULEIKA DPM, CHRISTOPHER 728.85 SPASM OF MUSCLE 03/16/2013 ZULEIKA DPM, CHRISTOPHER 782.0 DISTURBANCE OF SKIN SENSATION 03/16/2013 ZULEIKA DPM, CHRISTOPHER 782.1 RASH AND OTHER NONSPECIFIC SKIN ERUPTION 03/16/2013 WHYTE DO, ADILIA K 728.85 SPASM OF MUSCLE 03/16/2013 WHYTE DO, ADILIA K 782.0 DISTURBANCE OF SKIN SENSATION 03/16/2013 WHYTE DO, ADILIA K 782.1 RASH AND OTHER NONSPECIFIC SKIN ERUPTION 03/16/2013 MANJINDER ADMINISTRATIVE MANAGER, RENAN R 728.85 SPASM OF MUSCLE 03/16/2013 MANJINDER ADMINISTRATIVE MANAGER, RENAN R 782.0 DISTURBANCE OF SKIN SENSATION 03/16/2013 MANJINDER TOVAR, RENAN R 782.1 RASH AND OTHER NONSPECIFIC SKIN ERUPTION 03/19/2013 ISAURO MAST, INGRID K Ot 724.5 BACKACHE NOS 04/28/2013 728.87 MUSCLE WEAKNESS (GENERALIZED) 04/28/2013 729.5 PAIN IN LIMB 04/28/2013 LENKA DDS, GORDON B 728.87 MUSCLE WEAKNESS (GENERALIZED) 04/28/2013 LENKA DDS, GORDON B 729.5 PAIN IN LIMB 04/28/2013 WHITE DDS, MAX J 728.87 MUSCLE WEAKNESS (GENERALIZED) 04/28/2013 WHITE DDS, MAX J 729.5 PAIN IN LIMB 04/28/2013 WHYTE DO, ADILIA K 728.87 MUSCLE WEAKNESS (GENERALIZED) 04/28/2013 WHYTE DO, ADILIA K 729.5 PAIN IN LIMB 04/28/2013 MCKEON CASHERO ADMINISTRATIVE MANAGER, DAMIEN N 728.87 MUSCLE WEAKNESS (GENERALIZED) 04/28/2013 MCKEON CASHERO ADMINISTRATIVE MANAGER, DAMIEN N 729.5 PAIN IN LIMB 04/28/2013 WHYTE DO, ADILIA K 728.87 MUSCLE WEAKNESS (GENERALIZED) 04/28/2013 WHYTE DO, ADILIA K 729.5 PAIN IN LIMB 04/28/2013 MCKEON CASHERO ADMINISTRATIVE MANAGER, DAMIEN N 728.87 MUSCLE WEAKNESS (GENERALIZED) 04/28/2013 MCKEON CASHERO ADMINISTRATIVE MANAGER, DAMIEN N 729.5 PAIN IN LIMB 04/28/2013 MANJINDER ADMINISTRATIVE MANAGER, RENAN R 728.87 MUSCLE WEAKNESS (GENERALIZED) 04/28/2013 MANJINDER ADMINISTRATIVE MANAGER, RENAN R 729.5 PAIN IN LIMB 04/28/2013 WHYTE DO, ADILIA K 728.87 MUSCLE WEAKNESS (GENERALIZED) 04/28/2013 WHYTE DO, ADILIA K 729.5 PAIN IN LIMB 04/28/2013 WHITE DDS, WARREN D 728.87 MUSCLE WEAKNESS (GENERALIZED) 04/28/2013 WHITE DDS, WARREN D 729.5 PAIN IN LIMB 04/28/2013 WHYTE DO, ADILIA K 728.87 MUSCLE WEAKNESS (GENERALIZED) 04/28/2013 WHYTE DO, ADILIA K 729.5 PAIN IN LIMB 04/28/2013 WHYTE DO, ADILIA K 728.87 MUSCLE WEAKNESS (GENERALIZED) 04/28/2013 WHYTE DO, ADILIA K 729.5 PAIN IN LIMB 04/28/2013 MARIUSZ UPTON LCPC 728.87 MUSCLE WEAKNESS (GENERALIZED) 04/28/2013 MARIUSZ UPTON LCPC 729.5 PAIN IN LIMB 04/28/2013 APOORVA RAMIREZ, DANIEL Pickens 728.87 MUSCLE WEAKNESS (GENERALIZED) 04/28/2013 APOORVA RAMIREZ, DANIEL Pickens 729.5 PAIN IN LIMB 04/28/2013 LORRIE CARBAJAL APRNRICIA R 728.87 MUSCLE WEAKNESS (GENERALIZED) 04/28/2013 CECY CARBAJAL APRNIA R 729.5 PAIN IN LIMB 04/28/2013 YOVANI ADMINISTRATIVE MANAGER, VONNIE A 728.87 MUSCLE WEAKNESS (GENERALIZED) 04/28/2013 YOVANI ADMINISTRATIVE MANAGER, VONNIE A 729.5 PAIN IN LIMB 04/28/2013 JOSUE WHYTE DOA K 728.87 MUSCLE WEAKNESS (GENERALIZED) 04/28/2013 WHYTE DO ADILIA K 729.5 PAIN IN LIMB 04/28/2013 MADJose TOVAR, EMILY L 728.87 MUSCLE WEAKNESS (GENERALIZED) 04/28/2013 MADL LA, EMILY L 729.5 PAIN IN LIMB 04/28/2013 HOLLY KEVIN, RONNIE E 728.87 MUSCLE WEAKNESS (GENERALIZED) 04/28/2013 RONNIE BARRERA RN E 729.5 PAIN IN LIMB 04/28/2013 YOVANI TOVAR, VONNIE A 728.87 MUSCLE WEAKNESS (GENERALIZED) 04/28/2013 YOVANI PEREZN, VONNIE A 729.5 PAIN IN LIMB 04/28/2013 RONNIE BARRERA RN E 728.87 MUSCLE WEAKNESS (GENERALIZED) 04/28/2013 HOLLY KEVIN, RONNIE E 729.5 PAIN IN LIMB 04/28/2013 ZULEIKA DPM, CHRISTOPHER 728.87 MUSCLE WEAKNESS (GENERALIZED) 04/28/2013 ZULEIKA DPM, CHRISTOPHER 729.5 PAIN IN LIMB 04/28/2013 YOVANI TOVAR, VONNIE A 728.87 MUSCLE WEAKNESS (GENERALIZED) 04/28/2013 YOVANI TOVAR, VONNIE A 729.5 PAIN IN LIMB 04/28/2013 WHYTE DOJOSUEA K 728.87 MUSCLE WEAKNESS (GENERALIZED) 04/28/2013 WHYTE DO ADILIA K 729.5 PAIN IN LIMB 04/28/2013 RONNIE BARRERA RN E 728.87 MUSCLE WEAKNESS (GENERALIZED) 04/28/2013 HOLLY KEVIN, RONNIE E 729.5 PAIN IN LIMB 04/28/2013 ZULEIKA DPM, CHRISTOPHER 728.87 MUSCLE WEAKNESS (GENERALIZED) 04/28/2013 ZULEIKA DPM, CHRISTOPHER 729.5 PAIN IN LIMB 04/28/2013 HOLLY RN, RONNIE E 728.87 MUSCLE WEAKNESS (GENERALIZED) 04/28/2013 HOLLY KEVIN, RONNIE E 729.5 PAIN IN LIMB 04/28/2013 WHYTE DO, ADILIA K 728.87 MUSCLE WEAKNESS (GENERALIZED) 04/28/2013 WHYTE DO, ADILIA K 729.5 PAIN IN LIMB 04/28/2013 ZULEIKA DPM, CHRISTOPHER 728.87 MUSCLE WEAKNESS (GENERALIZED) 04/28/2013 ZULEIKA DPM, CHRISTOPHER 729.5 PAIN IN LIMB 04/28/2013 ZULEIKA DPM, CHRISTOPHER 728.87 MUSCLE WEAKNESS (GENERALIZED) 04/28/2013 ZULEIKA DPM, CHRISTOPHER 729.5 PAIN IN LIMB 04/28/2013 WHYTE DO, ADILIA K 728.87 MUSCLE WEAKNESS (GENERALIZED) 04/28/2013 WHYTE DO, ADILIA K 729.5 PAIN IN LIMB 04/28/2013 MANJINDER ADMINISTRATIVE MANAGER, RENAN R 728.87 MUSCLE WEAKNESS (GENERALIZED) 04/28/2013 MANJINDER ADMINISTRATIVE MANAGER, RENAN R 729.5 PAIN IN LIMB 08/06/2013 ADILIA WHYTE DO K 346.90 MIGRAINE UNSPECIFIED WITHOUT MENTION OF INTRACTABLE MIGRAINE WITHOUT MENTION OF STATUS MIGRAINOSUS 08/06/2013 ADILIA WHYTE DO K V15.09 PERSONAL HISTORY OF OTHER ALLERGY OTHER THAN TO MEDICINAL AGENTS 08/06/2013 DAMIEN KIM APRN N 346.90 MIGRAINE UNSPECIFIED WITHOUT MENTION OF INTRACTABLE MIGRAINE WITHOUT MENTION OF STATUS MIGRAINOSUS 08/06/2013 DAMIEN KIM APRN N V15.09 PERSONAL HISTORY OF OTHER ALLERGY OTHER THAN TO MEDICINAL AGENTS 08/06/2013 ADILIA WHYTE DO K 346.90 MIGRAINE UNSPECIFIED WITHOUT MENTION OF INTRACTABLE MIGRAINE WITHOUT MENTION OF STATUS MIGRAINOSUS 08/06/2013 ADILIA WHYTE DO K V15.09 PERSONAL HISTORY OF OTHER ALLERGY OTHER THAN TO MEDICINAL AGENTS 08/06/2013 DAMIEN KIM APRN N 346.90 MIGRAINE UNSPECIFIED WITHOUT MENTION OF INTRACTABLE MIGRAINE WITHOUT MENTION OF STATUS MIGRAINOSUS 08/06/2013 LINDA SIGALA APRN, DAMIEN N V15.09 PERSONAL HISTORY OF OTHER ALLERGY OTHER THAN TO MEDICINAL AGENTS 08/06/2013 MANJINDER PEREZN, RENAN R 346.90 MIGRAINE UNSPECIFIED WITHOUT MENTION OF INTRACTABLE MIGRAINE WITHOUT MENTION OF STATUS MIGRAINOSUS 08/06/2013 MANJINDER ADMINISTRATIVE MANAGER, RENAN R V15.09 PERSONAL HISTORY OF OTHER ALLERGY OTHER THAN TO MEDICINAL AGENTS 08/06/2013 WHYTE DO ADILIA K 346.90 MIGRAINE UNSPECIFIED WITHOUT MENTION OF INTRACTABLE MIGRAINE WITHOUT MENTION OF STATUS MIGRAINOSUS 08/06/2013 WHYTE DO ADILIA K V15.09 PERSONAL HISTORY OF OTHER ALLERGY OTHER THAN TO MEDICINAL AGENTS 08/06/2013 WHITE DDS, WARREN D 346.90 MIGRAINE UNSPECIFIED WITHOUT MENTION OF INTRACTABLE MIGRAINE WITHOUT MENTION OF STATUS MIGRAINOSUS 08/06/2013 WHITE DDS, WARREN D V15.09 PERSONAL HISTORY OF OTHER ALLERGY OTHER THAN TO MEDICINAL AGENTS 08/06/2013 WHYTE DO ADILIA K 346.90 MIGRAINE UNSPECIFIED WITHOUT MENTION OF INTRACTABLE MIGRAINE WITHOUT MENTION OF STATUS MIGRAINOSUS 08/06/2013 ADILIA WHYTE DO K V15.09 PERSONAL HISTORY OF OTHER ALLERGY OTHER THAN TO MEDICINAL AGENTS 08/06/2013 PATO DUEÑAS ADILIA K 346.90 MIGRAINE UNSPECIFIED WITHOUT MENTION OF INTRACTABLE MIGRAINE WITHOUT MENTION OF STATUS MIGRAINOSUS 08/06/2013 PATO DUEÑAS ADILIA K V15.09 PERSONAL HISTORY OF OTHER ALLERGY OTHER THAN TO MEDICINAL AGENTS 08/06/2013 MARIUSZ UPTON LCPC 346.90 MIGRAINE UNSPECIFIED WITHOUT MENTION OF INTRACTABLE MIGRAINE WITHOUT MENTION OF STATUS MIGRAINOSUS 08/06/2013 MARIUSZ UPTON LCPC V15.09 PERSONAL HISTORY OF OTHER ALLERGY OTHER THAN TO MEDICINAL AGENTS 08/06/2013 DANIEL GUERIN PHD 346.90 MIGRAINE UNSPECIFIED WITHOUT MENTION OF INTRACTABLE MIGRAINE WITHOUT MENTION OF STATUS MIGRAINOSUS 08/06/2013 DANIEL GUERIN PHD V15.09 PERSONAL HISTORY OF OTHER ALLERGY OTHER THAN TO MEDICINAL AGENTS 08/06/2013 ANSHUL CARBAJAL APRN R 346.90 MIGRAINE UNSPECIFIED WITHOUT MENTION OF INTRACTABLE MIGRAINE WITHOUT MENTION OF STATUS MIGRAINOSUS 08/06/2013 ANSHUL CARBAJAL APRN R V15.09 PERSONAL HISTORY OF OTHER ALLERGY OTHER THAN TO MEDICINAL AGENTS 08/06/2013 VONNIE PINA APRN A 346.90 MIGRAINE UNSPECIFIED WITHOUT MENTION OF INTRACTABLE MIGRAINE WITHOUT MENTION OF STATUS MIGRAINOSUS 08/06/2013 VONNIE PINA APRN A V15.09 PERSONAL HISTORY OF OTHER ALLERGY OTHER THAN TO MEDICINAL AGENTS 08/06/2013 PATO DOJOSUEA K 346.90 MIGRAINE UNSPECIFIED WITHOUT MENTION OF INTRACTABLE MIGRAINE WITHOUT MENTION OF STATUS MIGRAINOSUS 08/06/2013 WHYTE DO ADILIA K V15.09 PERSONAL HISTORY OF OTHER ALLERGY OTHER THAN TO MEDICINAL AGENTS 08/06/2013 VENKATESH PEREZNDANAYEMILY L 346.90 MIGRAINE UNSPECIFIED WITHOUT MENTION OF INTRACTABLE MIGRAINE WITHOUT MENTION OF STATUS MIGRAINOSUS 08/06/2013 MADL ADMINISTRATIVE MANAGERDANAYEMILY L V15.09 PERSONAL HISTORY OF OTHER ALLERGY OTHER THAN TO MEDICINAL AGENTS 08/06/2013 RONNIE BARRERA RN 346.90 MIGRAINE UNSPECIFIED WITHOUT MENTION OF INTRACTABLE MIGRAINE WITHOUT MENTION OF STATUS MIGRAINOSUS 08/06/2013 RONNIE BARRERA RN V15.09 PERSONAL HISTORY OF OTHER ALLERGY OTHER THAN TO MEDICINAL AGENTS 08/06/2013 VONNIE PINA APRN A 346.90 MIGRAINE UNSPECIFIED WITHOUT MENTION OF INTRACTABLE MIGRAINE WITHOUT MENTION OF STATUS MIGRAINOSUS 08/06/2013 VONNIE PINA APRN A V15.09 PERSONAL HISTORY OF OTHER ALLERGY OTHER THAN TO MEDICINAL AGENTS 08/06/2013 RONNIE BARRERA RN E 346.90 MIGRAINE UNSPECIFIED WITHOUT MENTION OF INTRACTABLE MIGRAINE WITHOUT MENTION OF STATUS MIGRAINOSUS 08/06/2013 RONNIE BARRERA RN E V15.09 PERSONAL HISTORY OF OTHER ALLERGY OTHER THAN TO MEDICINAL AGENTS 08/06/2013 ZULEIKA DPM, CHRISTOPHER 346.90 MIGRAINE UNSPECIFIED WITHOUT MENTION OF INTRACTABLE MIGRAINE WITHOUT MENTION OF STATUS MIGRAINOSUS 08/06/2013 ZULEIKA DPM, CHRISTOPHER V15.09 PERSONAL HISTORY OF OTHER ALLERGY OTHER THAN TO MEDICINAL AGENTS 08/06/2013 VONNIE PINA APRN A 346.90 MIGRAINE UNSPECIFIED WITHOUT MENTION OF INTRACTABLE MIGRAINE WITHOUT MENTION OF STATUS MIGRAINOSUS 08/06/2013 VONNIE PINA APRN A V15.09 PERSONAL HISTORY OF OTHER ALLERGY OTHER THAN TO MEDICINAL AGENTS 08/06/2013 PATO DOJOSUEA K 346.90 MIGRAINE UNSPECIFIED WITHOUT MENTION OF INTRACTABLE MIGRAINE WITHOUT MENTION OF STATUS MIGRAINOSUS 08/06/2013 PATO DUEÑAS ADILIA K V15.09 PERSONAL HISTORY OF OTHER ALLERGY OTHER THAN TO MEDICINAL AGENTS 08/06/2013 RONNIE BARRERA RN E 346.90 MIGRAINE UNSPECIFIED WITHOUT MENTION OF INTRACTABLE MIGRAINE WITHOUT MENTION OF STATUS MIGRAINOSUS 08/06/2013 RONNIE BARRERA RN E V15.09 PERSONAL HISTORY OF OTHER ALLERGY OTHER THAN TO MEDICINAL AGENTS 08/06/2013 ZULEIKA DPM, CHRISTOPHER 346.90 MIGRAINE UNSPECIFIED WITHOUT MENTION OF INTRACTABLE MIGRAINE WITHOUT MENTION OF STATUS MIGRAINOSUS 08/06/2013 ZULEIKA DPM, CHRISTOPHER V15.09 PERSONAL HISTORY OF OTHER ALLERGY OTHER THAN TO MEDICINAL AGENTS 08/06/2013 RONNIE BARRERA RN E 346.90 MIGRAINE UNSPECIFIED WITHOUT MENTION OF INTRACTABLE MIGRAINE WITHOUT MENTION OF STATUS MIGRAINOSUS 08/06/2013 RONNIE BARRERA RN V15.09 PERSONAL HISTORY OF OTHER ALLERGY OTHER THAN TO MEDICINAL AGENTS 08/06/2013 ADILIA WHYTE DO 346.90 MIGRAINE UNSPECIFIED WITHOUT MENTION OF INTRACTABLE MIGRAINE WITHOUT MENTION OF STATUS MIGRAINOSUS 08/06/2013 ADILIA WHYTE DO V15.09 PERSONAL HISTORY OF OTHER ALLERGY OTHER THAN TO MEDICINAL AGENTS 08/06/2013 ZULEIKA DPM, CHRISTOPHER 346.90 MIGRAINE UNSPECIFIED WITHOUT MENTION OF INTRACTABLE MIGRAINE WITHOUT MENTION OF STATUS MIGRAINOSUS 08/06/2013 ZULEIKA DPM, CHRISTOPHER V15.09 PERSONAL HISTORY OF OTHER ALLERGY OTHER THAN TO MEDICINAL AGENTS 08/06/2013 ZULEIKA DPM, CHRISTOPHER 346.90 MIGRAINE UNSPECIFIED WITHOUT MENTION OF INTRACTABLE MIGRAINE WITHOUT MENTION OF STATUS MIGRAINOSUS 08/06/2013 ZULEIKA DPM, CHRISTOPHER V15.09 PERSONAL HISTORY OF OTHER ALLERGY OTHER THAN TO MEDICINAL AGENTS 08/06/2013 ADILIA WHYTE DO K 346.90 MIGRAINE UNSPECIFIED WITHOUT MENTION OF INTRACTABLE MIGRAINE WITHOUT MENTION OF STATUS MIGRAINOSUS 08/06/2013 ADILIA WHYTE DO K V15.09 PERSONAL HISTORY OF OTHER ALLERGY OTHER THAN TO MEDICINAL AGENTS 08/06/2013 MANJINDER ADMINISTRATIVE MANAGER, RENNA R 346.90 MIGRAINE UNSPECIFIED WITHOUT MENTION OF INTRACTABLE MIGRAINE WITHOUT MENTION OF STATUS MIGRAINOSUS 08/06/2013 MANJINDER ADMINISTRATIVE MANAGER, RENAN R V15.09 PERSONAL HISTORY OF OTHER ALLERGY OTHER THAN TO MEDICINAL AGENTS 08/19/2013 LINDA SIGALA ADMINISTRATIVE MANAGER, DAMIEN N 465.9 ACUTE UPPER RESPIRATORY INFECTIONS OF UNSPECIFIED SITE 08/19/2013 MCKEON CASHERO ADMINISTRATIVE MANAGER, DAMIEN N 780.60 FEVER UNSPECIFIED 08/19/2013 MCKEON ALEXERO ADMINISTRATIVE MANAGER, DAMIEN N 787.01 NAUSEA WITH VOMITING 08/19/2013 WHYTE DO, ADILIA K 465.9 ACUTE UPPER RESPIRATORY INFECTIONS OF UNSPECIFIED SITE 08/19/2013 WHYTE DO, ADILIA K 780.60 FEVER UNSPECIFIED 08/19/2013 WHYTE DO, ADILIA K 787.01 NAUSEA WITH VOMITING 08/19/2013 MCKEON CASHERO ADMINISTRATIVE MANAGER, DAMIEN N 465.9 ACUTE UPPER RESPIRATORY INFECTIONS OF UNSPECIFIED SITE 08/19/2013 MCKEON CASHERO ADMINISTRATIVE MANAGER, DAMIEN N 780.60 FEVER UNSPECIFIED 08/19/2013 MCKEON CASHERO ADMINISTRATIVE MANAGER, DAMIEN N 787.01 NAUSEA WITH VOMITING 08/19/2013 MANJINDER ADMINISTRATIVE MANAGER, RENAN R 465.9 ACUTE UPPER RESPIRATORY INFECTIONS OF UNSPECIFIED SITE 08/19/2013 MANJINDER ADMINISTRATIVE MANAGER, RENAN R 780.60 FEVER UNSPECIFIED 08/19/2013 MANJINDER ADMINISTRATIVE MANAGER, RENAN R 787.01 NAUSEA WITH VOMITING 08/19/2013 WHYTE DO, ADILIA K 465.9 ACUTE UPPER RESPIRATORY INFECTIONS OF UNSPECIFIED SITE 08/19/2013 WHYTE DO, ADILIA K 780.60 FEVER UNSPECIFIED 08/19/2013 WHYTE DO, ADILIA K 787.01 NAUSEA WITH VOMITING 08/19/2013 WHITE DDS, WARREN D 465.9 ACUTE UPPER RESPIRATORY INFECTIONS OF UNSPECIFIED SITE 08/19/2013 WHITE DDS, WARREN D 780.60 FEVER UNSPECIFIED 08/19/2013 WHITE DDS, WARREN D 787.01 NAUSEA WITH VOMITING 08/19/2013 HWYTE DO, ADILIA K 465.9 ACUTE UPPER RESPIRATORY INFECTIONS OF UNSPECIFIED SITE 08/19/2013 WHYTE DO, ADILIA K 780.60 FEVER UNSPECIFIED 08/19/2013 WHYTE DO, ADILIA K 787.01 NAUSEA WITH VOMITING 08/19/2013 WHYTE DO, ADILIA K 465.9 ACUTE UPPER RESPIRATORY INFECTIONS OF UNSPECIFIED SITE 08/19/2013 WHYTE DO, ADILIA K 780.60 FEVER UNSPECIFIED 08/19/2013 WHYTE DO, ADILIA K 787.01 NAUSEA WITH VOMITING 08/19/2013 MARIUSZ UPTON LCPC 465.9 ACUTE UPPER RESPIRATORY INFECTIONS OF UNSPECIFIED SITE 08/19/2013 MARIUSZ UPTON LCPC 780.60 FEVER UNSPECIFIED 08/19/2013 MARIUSZ UPTON LCPC 787.01 NAUSEA WITH VOMITING 08/19/2013 APOORVA RAMIREZ, DANIEL Pickens 465.9 ACUTE UPPER RESPIRATORY INFECTIONS OF UNSPECIFIED SITE 08/19/2013 DANIEL GUERIN PHD 780.60 FEVER UNSPECIFIED 08/19/2013 APOORVA RAMIREZ, DANIEL A 787.01 NAUSEA WITH VOMITING 08/19/2013 CECY CARBAJAL APRNIA R 465.9 ACUTE UPPER RESPIRATORY INFECTIONS OF UNSPECIFIED SITE 08/19/2013 CECY CARBAJAL APRNIA R 780.60 FEVER UNSPECIFIED 08/19/2013 ANSHUL CARBAJAL APRN R 787.01 NAUSEA WITH VOMITING 08/19/2013 YOVANI TOVAR VONNIE A 465.9 ACUTE UPPER RESPIRATORY INFECTIONS OF UNSPECIFIED SITE 08/19/2013 YOVANI ADMINISTRATIVE MANAGER, VONNIE A 780.60 FEVER UNSPECIFIED 08/19/2013 YOVANI ADMINISTRATIVE MANAGER, VONNIE A 787.01 NAUSEA WITH VOMITING 08/19/2013 WHYTE DO, ADILIA K 465.9 ACUTE UPPER RESPIRATORY INFECTIONS OF UNSPECIFIED SITE 08/19/2013 WHYTE DO, ADILIA K 780.60 FEVER UNSPECIFIED 08/19/2013 WHYTE DO, ADILIA K 787.01 NAUSEA WITH VOMITING 08/19/2013 DANAY RIDDLE APRNWNYA L 465.9 ACUTE UPPER RESPIRATORY INFECTIONS OF UNSPECIFIED SITE 08/19/2013 MADL LA, EMILY L 780.60 FEVER UNSPECIFIED 08/19/2013 MADL LA, EMILY L 787.01 NAUSEA WITH VOMITING 08/19/2013 HOLLY KEVIN, RONNIE E 465.9 ACUTE UPPER RESPIRATORY INFECTIONS OF UNSPECIFIED SITE 08/19/2013 HOLLY KEVIN, RONNIE E 780.60 FEVER UNSPECIFIED 08/19/2013 HOLLY KEVIN, RONNIE E 787.01 NAUSEA WITH VOMITING 08/19/2013 YOVANI TOVAR VONNIE A 465.9 ACUTE UPPER RESPIRATORY INFECTIONS OF UNSPECIFIED SITE 08/19/2013 YOVANI TOVAR VONNIE A 780.60 FEVER UNSPECIFIED 08/19/2013 YOVANI TOVAR, VONNIE A 787.01 NAUSEA WITH VOMITING 08/19/2013 HOLLY KEVIN, RONNIE E 465.9 ACUTE UPPER RESPIRATORY INFECTIONS OF UNSPECIFIED SITE 08/19/2013 HOLLY KEVIN, RONNIE E 780.60 FEVER UNSPECIFIED 08/19/2013 HOLLY KEVIN, RONNIE E 787.01 NAUSEA WITH VOMITING 08/19/2013 ZULEIKA DPM, CHRISTOPHER 465.9 ACUTE UPPER RESPIRATORY INFECTIONS OF UNSPECIFIED SITE 08/19/2013 ZULEIKA DPM, CHRISTOPHER 780.60 FEVER UNSPECIFIED 08/19/2013 ZULEIKA DPM, CHRISTOPHER 787.01 NAUSEA WITH VOMITING 08/19/2013 YOVANI ADMINISTRATIVE MANAGER, VONNIE A 465.9 ACUTE UPPER RESPIRATORY INFECTIONS OF UNSPECIFIED SITE 08/19/2013 YOVANI ADMINISTRATIVE MANAGER, VONNIE A 780.60 FEVER UNSPECIFIED 08/19/2013 YOVANI ADMINISTRATIVE MANAGER, VONNIE A 787.01 NAUSEA WITH VOMITING 08/19/2013 WHYTE DO, ADILIA K 465.9 ACUTE UPPER RESPIRATORY INFECTIONS OF UNSPECIFIED SITE 08/19/2013 WHYTE DO, ADILIA K 780.60 FEVER UNSPECIFIED 08/19/2013 WHYTE DO, ADILIA K 787.01 NAUSEA WITH VOMITING 08/19/2013 HOLLY KEVIN, RONNIE Shanks 465.9 ACUTE UPPER RESPIRATORY INFECTIONS OF UNSPECIFIED SITE 08/19/2013 HOLLY KEVIN, RONNIE Shanks 780.60 FEVER UNSPECIFIED 08/19/2013 HOLLY KEVIN, RONNIE Shanks 787.01 NAUSEA WITH VOMITING 08/19/2013 ZULEIKA DPM, CHRISTOPHER 465.9 ACUTE UPPER RESPIRATORY INFECTIONS OF UNSPECIFIED SITE 08/19/2013 ZULEIKA DPM, CHRISTOPHER 780.60 FEVER UNSPECIFIED 08/19/2013 ZULEIKA DPM, CHRISTOPHER 787.01 NAUSEA WITH VOMITING 08/19/2013 HOLLY KEVIN, RONNIE E 465.9 ACUTE UPPER RESPIRATORY INFECTIONS OF UNSPECIFIED SITE 08/19/2013 HOLLY KEVIN, RONNIE Shanks 780.60 FEVER UNSPECIFIED 08/19/2013 HOLLY KEVIN, RONNIE E 787.01 NAUSEA WITH VOMITING 08/19/2013 WHYTE DO, ADILIA K 465.9 ACUTE UPPER RESPIRATORY INFECTIONS OF UNSPECIFIED SITE 08/19/2013 WHYTE DO, ADILIA K 780.60 FEVER UNSPECIFIED 08/19/2013 WHYTE DO, ADILIA K 787.01 NAUSEA WITH VOMITING 08/19/2013 ZULEIKA DPM, CHRISTOPHER 465.9 ACUTE UPPER RESPIRATORY INFECTIONS OF UNSPECIFIED SITE 08/19/2013 ZULEIKA DPM, CHRISTOPHER 780.60 FEVER UNSPECIFIED 08/19/2013 ZULEIKA DPM, CHRISTOPHER 787.01 NAUSEA WITH VOMITING 08/19/2013 ZULEIKA DPM, CHRISTOPHER 465.9 ACUTE UPPER RESPIRATORY INFECTIONS OF UNSPECIFIED SITE 08/19/2013 ZULEIKA DPM, CHRISTOPHER 780.60 FEVER UNSPECIFIED 08/19/2013 ZULEIKA DPM, CHRISTOPHER 787.01 NAUSEA WITH VOMITING 08/19/2013 WHYTE DO, ADILIA K 465.9 ACUTE UPPER RESPIRATORY INFECTIONS OF UNSPECIFIED SITE 08/19/2013 WHYTE DO, ADILIA K 780.60 FEVER UNSPECIFIED 08/19/2013 WHYTE DO, ADILIA K 787.01 NAUSEA WITH VOMITING 08/19/2013 MANJINDER ADMINISTRATIVE MANAGER, RENAN R 465.9 ACUTE UPPER RESPIRATORY INFECTIONS OF UNSPECIFIED SITE 08/19/2013 MANJINDER ADMINISTRATIVE MANAGER, RENAN R 780.60 FEVER UNSPECIFIED 08/19/2013 MANJINDER ADMINISTRATIVE MANAGER, RENAN R 787.01 NAUSEA WITH VOMITING 08/30/2013 WHYTE DO, ADILIA K 789.00 ABDOMINAL PAIN UNSPECIFIED SITE 08/30/2013 LINDA SIGALA APRN, DAMIEN N 789.00 ABDOMINAL PAIN UNSPECIFIED SITE 08/30/2013 MANJINDER PEREZN, RENAN R 789.00 ABDOMINAL PAIN UNSPECIFIED SITE 08/30/2013 WHYTE DO, ADILIA K 789.00 ABDOMINAL PAIN UNSPECIFIED SITE 08/30/2013 BRIAN DDS, WARREN Kuo 789.00 ABDOMINAL PAIN UNSPECIFIED SITE 08/30/2013 WHYTE DO, ADILIA K 789.00 ABDOMINAL PAIN UNSPECIFIED SITE 08/30/2013 WHYTE DO, ADILIA K 789.00 ABDOMINAL PAIN UNSPECIFIED SITE 08/30/2013 WON CARMONA, MARIUSZ Qiu 789.00 ABDOMINAL PAIN UNSPECIFIED SITE 08/30/2013 APOORVA PHD, DANIEL A 789.00 ABDOMINAL PAIN UNSPECIFIED SITE 08/30/2013 ANSHUL CARBAJAL APRN 789.00 ABDOMINAL PAIN UNSPECIFIED SITE 08/30/2013 VONNIE PINA APRN A 789.00 ABDOMINAL PAIN UNSPECIFIED SITE 08/30/2013 WHYTE DO, ADILIA K 789.00 ABDOMINAL PAIN UNSPECIFIED SITE 08/30/2013 EMILY RIDDLE APRN 789.00 ABDOMINAL PAIN UNSPECIFIED SITE 08/30/2013 HOLLY KEVIN, RONNIE E 789.00 ABDOMINAL PAIN UNSPECIFIED SITE 08/30/2013 VONNIE PINA APRN A 789.00 ABDOMINAL PAIN UNSPECIFIED SITE 08/30/2013 HOLLY KEVIN, RONNIE E 789.00 ABDOMINAL PAIN UNSPECIFIED SITE 08/30/2013 ZULEIKA HERRON, CHRISTOPHER 789.00 ABDOMINAL PAIN UNSPECIFIED SITE 08/30/2013 VONNIE PINA APRN A 789.00 ABDOMINAL PAIN UNSPECIFIED SITE 08/30/2013 WHYTE DO, ADILIA K 789.00 ABDOMINAL PAIN UNSPECIFIED SITE 08/30/2013 HOLLY RN, RONNIE E 789.00 ABDOMINAL PAIN UNSPECIFIED SITE 08/30/2013 ZULEIKA DPM, CHRISTOPHER 789.00 ABDOMINAL PAIN UNSPECIFIED SITE 08/30/2013 HOLLY RN, RONNIE E 789.00 ABDOMINAL PAIN UNSPECIFIED SITE 08/30/2013 WHYTE DO, ADILIA K 789.00 ABDOMINAL PAIN UNSPECIFIED SITE 08/30/2013 ZULEIKA DPM, CHRISTOPHER 789.00 ABDOMINAL PAIN UNSPECIFIED SITE 08/30/2013 ZULEIKA DPM, CHRISTOPHER 789.00 ABDOMINAL PAIN UNSPECIFIED SITE 08/30/2013 WHYTE DO, ADILIA K 789.00 ABDOMINAL PAIN UNSPECIFIED SITE 08/30/2013 MANJINDER PEREZN, RENAN R 789.00 ABDOMINAL PAIN UNSPECIFIED SITE 09/28/2013 MANJINDER PEREZN, RENAN R 787.91 DIARRHEA 09/28/2013 WHYTE DO, ADILIA K 787.91 DIARRHEA 09/28/2013 BRIAN SANCHEZS, WARREN Kuo 787.91 DIARRHEA 09/28/2013 WHYTE DO, ADILIA K 787.91 DIARRHEA 09/28/2013 WHYTE DO, ADILIA K 787.91 DIARRHEA 09/28/2013 WON CARMONA, MARIUSZ B 787.91 DIARRHEA 09/28/2013 APOORVA RAMIREZ, DANIEL A 787.91 DIARRHEA 09/28/2013 ANSHUL CARBAJAL APRN 787.91 DIARRHEA 09/28/2013 YOVANI TOVAR, VONNIE A 787.91 DIARRHEA 09/28/2013 WHYTE DO, ADILIA K 787.91 DIARRHEA 09/28/2013 VENKATESH ADMINISTRATIVE MANAGEREMILY Lord 787.91 DIARRHEA 09/28/2013 HOLLY KEVIN, RONNIE E 787.91 DIARRHEA 09/28/2013 YOVANI PEREZN, VONNIE A 787.91 DIARRHEA 09/28/2013 HOLLY KEVIN, RONNIE E 787.91 DIARRHEA 09/28/2013 ZULEIKA DPM, CHRISTOPHER 787.91 DIARRHEA 09/28/2013 YOVANI PEREZN, VONNIE A 787.91 DIARRHEA 09/28/2013 WHYTE DO, ADILIA K 787.91 DIARRHEA 09/28/2013 HOLLY RN, RONNIE E 787.91 DIARRHEA 09/28/2013 ZULEIKA DPM, CHRISTOPHER 787.91 DIARRHEA 09/28/2013 HOLLY KEVIN, RONNIE E 787.91 DIARRHEA 09/28/2013 WHYTE DO, ADILIA K 787.91 DIARRHEA 09/28/2013 ZULEIKA DPM, CHRISTOPHER 787.91 DIARRHEA 09/28/2013 ZULEIKA DPM, CHRISTOPHER 787.91 DIARRHEA 09/28/2013 WHYTE DO, ADILIA K 787.91 DIARRHEA 09/28/2013 RENAN DUNBAR APRN 787.91 DIARRHEA 10/11/2013 WHYTE DO, ADILIA K 296.90 UNSPECIFIED EPISODIC MOOD DISORDER 10/11/2013 WHYTE DO, ADILIA K 780.52 INSOMNIA UNSPECIFIED 10/11/2013 WHYTE DO, ADILIA K 796.2 ELEVATED BLOOD PRESSURE READING WITHOUT DIAGNOSIS OF HYPERTENSION 10/11/2013 WHITE DDS, WARREN D 296.90 UNSPECIFIED EPISODIC MOOD DISORDER 10/11/2013 WHITE DDS, WARREN D 780.52 INSOMNIA UNSPECIFIED 10/11/2013 WHITE DDS, WARREN D 796.2 ELEVATED BLOOD PRESSURE READING WITHOUT DIAGNOSIS OF HYPERTENSION 10/11/2013 WHYTE DO, ADILIA K 296.90 UNSPECIFIED EPISODIC MOOD DISORDER 10/11/2013 WHYTE DO, ADILIA K 780.52 INSOMNIA UNSPECIFIED 10/11/2013 WHYTE DO, ADILIA K 796.2 ELEVATED BLOOD PRESSURE READING WITHOUT DIAGNOSIS OF HYPERTENSION 10/11/2013 WHYTE DO, ADILIA K 296.90 UNSPECIFIED EPISODIC MOOD DISORDER 10/11/2013 WHYTE DO, ADILIA K 780.52 INSOMNIA UNSPECIFIED 10/11/2013 WHYTE DO, ADILIA K 796.2 ELEVATED BLOOD PRESSURE READING WITHOUT DIAGNOSIS OF HYPERTENSION 10/11/2013 MARIUSZ UPTON LCPC B 296.90 UNSPECIFIED EPISODIC MOOD DISORDER 10/11/2013 MARIUSZ UPTON LCPC B 780.52 INSOMNIA UNSPECIFIED 10/11/2013 WON CARMONA MARIUSZ B 796.2 ELEVATED BLOOD PRESSURE READING WITHOUT DIAGNOSIS OF HYPERTENSION 10/11/2013 APOORVA RAMIREZ, DANIEL Pickens 296.90 UNSPECIFIED EPISODIC MOOD DISORDER 10/11/2013 APOORVA RAMIREZ, DANIEL Pickens 780.52 INSOMNIA UNSPECIFIED 10/11/2013 APOORVA RAMIREZ, DANIEL Pickens 796.2 ELEVATED BLOOD PRESSURE READING WITHOUT DIAGNOSIS OF HYPERTENSION 10/11/2013 ANSHUL CARBAJAL APRN 296.90 UNSPECIFIED EPISODIC MOOD DISORDER 10/11/2013 RAVEN TOVAR, ANSHUL R 780.52 INSOMNIA UNSPECIFIED 10/11/2013 RAVEN PEREZN, ANSHUL R 796.2 ELEVATED BLOOD PRESSURE READING WITHOUT DIAGNOSIS OF HYPERTENSION 10/11/2013 VEL PINA APRNIDI A 296.90 UNSPECIFIED EPISODIC MOOD DISORDER 10/11/2013 YOVANI TOVAR, VONNIE A 780.52 INSOMNIA UNSPECIFIED 10/11/2013 YOVANI TOVAR, VONNIE A 796.2 ELEVATED BLOOD PRESSURE READING WITHOUT DIAGNOSIS OF HYPERTENSION 10/11/2013 WHYTE DO, ADILIA K 296.90 UNSPECIFIED EPISODIC MOOD DISORDER 10/11/2013 WHYTE DO, ADILIA K 780.52 INSOMNIA UNSPECIFIED 10/11/2013 WHYTE DO, ADILIA K 796.2 ELEVATED BLOOD PRESSURE READING WITHOUT DIAGNOSIS OF HYPERTENSION 10/11/2013 MADJose TOVAR EMILY L 296.90 UNSPECIFIED EPISODIC MOOD DISORDER 10/11/2013 MADJose TOVAR, EMILY L 780.52 INSOMNIA UNSPECIFIED 10/11/2013 MADJose TOVAR, EMILY L 796.2 ELEVATED BLOOD PRESSURE READING WITHOUT DIAGNOSIS OF HYPERTENSION 10/11/2013 HOLLY KEVIN, RONNIE E 296.90 UNSPECIFIED EPISODIC MOOD DISORDER 10/11/2013 HOLLY KEVIN, RONNIE E 780.52 INSOMNIA UNSPECIFIED 10/11/2013 HOLLY KEVIN, RONNIE E 796.2 ELEVATED BLOOD PRESSURE READING WITHOUT DIAGNOSIS OF HYPERTENSION 10/11/2013 YOVANI TOVAR, VONNIE A 296.90 UNSPECIFIED EPISODIC MOOD DISORDER 10/11/2013 YOVANI TOVAR, VONNIE A 780.52 INSOMNIA UNSPECIFIED 10/11/2013 YOVANI TOVAR, VONNIE A 796.2 ELEVATED BLOOD PRESSURE READING WITHOUT DIAGNOSIS OF HYPERTENSION 10/11/2013 HOLLY KEVIN, RONNIE E 296.90 UNSPECIFIED EPISODIC MOOD DISORDER 10/11/2013 HOLLY KEVIN, RONNIE E 780.52 INSOMNIA UNSPECIFIED 10/11/2013 HOLLY KEVIN, RONNIE E 796.2 ELEVATED BLOOD PRESSURE READING WITHOUT DIAGNOSIS OF HYPERTENSION 10/11/2013 ZULEIKA DPM, CHRISTOPHER 296.90 UNSPECIFIED EPISODIC MOOD DISORDER 10/11/2013 ZULEIKA DPM, CHRISTOPHER 780.52 INSOMNIA UNSPECIFIED 10/11/2013 ZULEIKA DPM, CHRISTOPHER 796.2 ELEVATED BLOOD PRESSURE READING WITHOUT DIAGNOSIS OF HYPERTENSION 10/11/2013 YOVANI ADMINISTRATIVE MANAGER, VONNIE A 296.90 UNSPECIFIED EPISODIC MOOD DISORDER 10/11/2013 YOVANI ADMINISTRATIVE MANAGER, VONNIE A 780.52 INSOMNIA UNSPECIFIED 10/11/2013 YOVANI ADMINISTRATIVE MANAGER, VONNIE A 796.2 ELEVATED BLOOD PRESSURE READING WITHOUT DIAGNOSIS OF HYPERTENSION 10/11/2013 WHTYE DO, ADILIA K 296.90 UNSPECIFIED EPISODIC MOOD DISORDER 10/11/2013 WHYTE DO, ADILIA K 780.52 INSOMNIA UNSPECIFIED 10/11/2013 WHYTE DO, ADILIA K 796.2 ELEVATED BLOOD PRESSURE READING WITHOUT DIAGNOSIS OF HYPERTENSION 10/11/2013 HOLLY KEVIN, RONNIE E 296.90 UNSPECIFIED EPISODIC MOOD DISORDER 10/11/2013 HOLLY KEVIN, RONNIE E 780.52 INSOMNIA UNSPECIFIED 10/11/2013 HOLLY KEVIN, RONNIE E 796.2 ELEVATED BLOOD PRESSURE READING WITHOUT DIAGNOSIS OF HYPERTENSION 10/11/2013 ZULEIKA DPM, CHRISTOPHER 296.90 UNSPECIFIED EPISODIC MOOD DISORDER 10/11/2013 ZULEIKA DPM, CHRISTOPHER 780.52 INSOMNIA UNSPECIFIED 10/11/2013 ZULEIKA DPM, CHRISTOPHER 796.2 ELEVATED BLOOD PRESSURE READING WITHOUT DIAGNOSIS OF HYPERTENSION 10/11/2013 HOLLY KEVIN, RONNIE E 296.90 UNSPECIFIED EPISODIC MOOD DISORDER 10/11/2013 HOLLY KEVIN, RONNIE E 780.52 INSOMNIA UNSPECIFIED 10/11/2013 HOLLY KEVIN, RONNIE E 796.2 ELEVATED BLOOD PRESSURE READING WITHOUT DIAGNOSIS OF HYPERTENSION 10/11/2013 WHYTE DO, ADILIA K 296.90 UNSPECIFIED EPISODIC MOOD DISORDER 10/11/2013 WHYTE DO, ADILIA K 780.52 INSOMNIA UNSPECIFIED 10/11/2013 WHYTE DO, ADILIA K 796.2 ELEVATED BLOOD PRESSURE READING WITHOUT DIAGNOSIS OF HYPERTENSION 10/11/2013 ZULEIKA DPM, CHRISTOPHER 296.90 UNSPECIFIED EPISODIC MOOD DISORDER 10/11/2013 ZULEIKA DPM, CHRISTOPHER 780.52 INSOMNIA UNSPECIFIED 10/11/2013 ZULEIKA DPM, CHRISTOPHER 796.2 ELEVATED BLOOD PRESSURE READING WITHOUT DIAGNOSIS OF HYPERTENSION 10/11/2013 ZULEIKA DPM, CHRISTOPHER 296.90 UNSPECIFIED EPISODIC MOOD DISORDER 10/11/2013 ZULEIKA DPM, CHRISTOPHER 780.52 INSOMNIA UNSPECIFIED 10/11/2013 ZULEIKA DPM, CHRISTOPHER 796.2 ELEVATED BLOOD PRESSURE READING WITHOUT DIAGNOSIS OF HYPERTENSION 10/11/2013 WHYTE DO, ADILIA K 296.90 UNSPECIFIED EPISODIC MOOD DISORDER 10/11/2013 WHYTE DO, ADILIA K 780.52 INSOMNIA UNSPECIFIED 10/11/2013 WHYTE DO, ADILIA K 796.2 ELEVATED BLOOD PRESSURE READING WITHOUT DIAGNOSIS OF HYPERTENSION 10/11/2013 MANJINDER TOVAR, RENAN R 296.90 UNSPECIFIED EPISODIC MOOD DISORDER 10/11/2013 MANJINDER ADMINISTRATIVE MANAGER, RENAN R 780.52 INSOMNIA UNSPECIFIED 10/11/2013 MANJINDER ADMINISTRATIVE MANAGER, RENAN R 796.2 ELEVATED BLOOD PRESSURE READING WITHOUT DIAGNOSIS OF HYPERTENSION 11/08/2013 WHYTE DO, ADILIA K 704.00 ALOPECIA UNSPECIFIED 11/08/2013 WON CARMONA, MARIUSZ B 704.00 ALOPECIA UNSPECIFIED 11/08/2013 APOORVA PHD, DANIEL A 704.00 ALOPECIA UNSPECIFIED 11/08/2013 ANSHUL CARBAJAL APRN 704.00 ALOPECIA UNSPECIFIED 11/08/2013 YOVANI TOVAR, VONNIE A 704.00 ALOPECIA UNSPECIFIED 11/08/2013 WHYTE DO, ADILIA K 704.00 ALOPECIA UNSPECIFIED 11/08/2013 EMILY RIDDLE APRN 704.00 ALOPECIA UNSPECIFIED 11/08/2013 HOLLY KEVIN, RONNIE E 704.00 ALOPECIA UNSPECIFIED 11/08/2013 YOVANI TOVAR, VONNIE A 704.00 ALOPECIA UNSPECIFIED 11/08/2013 HOLLY KEVIN, RONNIE E 704.00 ALOPECIA UNSPECIFIED 11/08/2013 ZULEIKA DPM, CHRISTOPHER 704.00 ALOPECIA UNSPECIFIED 11/08/2013 OYVANI TOVAR VONNIE A 704.00 ALOPECIA UNSPECIFIED 11/08/2013 WHYTE DO, ADILIA K 704.00 ALOPECIA UNSPECIFIED 11/08/2013 HOLLY KEVIN, RONNIE E 704.00 ALOPECIA UNSPECIFIED 11/08/2013 ZULEIKA DPM, CHRISTOPHER 704.00 ALOPECIA UNSPECIFIED 11/08/2013 HOLLY KEVIN, RONNIE E 704.00 ALOPECIA UNSPECIFIED 11/08/2013 WHYTE DO, ADILIA K 704.00 ALOPECIA UNSPECIFIED 11/08/2013 ZULEIKA DPM, CHRISTOPHER 704.00 ALOPECIA UNSPECIFIED 11/08/2013 ZULEIKA DPM, CHRISTOPHER 704.00 ALOPECIA UNSPECIFIED 11/08/2013 WHYTE DO, ADILIA K 704.00 ALOPECIA UNSPECIFIED 11/08/2013 MANJINDER TOVAR, RENAN R 704.00 ALOPECIA UNSPECIFIED 12/13/2013 WON CARMONA, MARIUSZ B 296.33 MO DEPRESSIVE RECURRENT SEVERE W/O PSYCHOTIC BEHAVIOR 12/13/2013 APOORVA RAMIREZ, DANIEL A 296.33 MO DEPRESSIVE RECURRENT SEVERE W/O PSYCHOTIC BEHAVIOR 12/13/2013 ANSHUL CARBAJAL APRN R 296.33 MO DEPRESSIVE RECURRENT SEVERE W/O PSYCHOTIC BEHAVIOR 12/13/2013 YOVANI TOVAR, VONNIE A 296.33 MO DEPRESSIVE RECURRENT SEVERE W/O PSYCHOTIC BEHAVIOR 12/13/2013 ADILIA WHYTE DO K 296.33 MO DEPRESSIVE RECURRENT SEVERE W/O PSYCHOTIC BEHAVIOR 12/13/2013 EMILY RIDDLE APRN 296.33 MO DEPRESSIVE RECURRENT SEVERE W/O PSYCHOTIC BEHAVIOR 12/13/2013 HOLLY KEVIN, RONNIE E 296.33 MO DEPRESSIVE RECURRENT SEVERE W/O PSYCHOTIC BEHAVIOR 12/13/2013 VEL PINA APRNIDI A 296.33 MO DEPRESSIVE RECURRENT SEVERE W/O PSYCHOTIC BEHAVIOR 12/13/2013 HOLLY KEVIN, RONNIE E 296.33 MO DEPRESSIVE RECURRENT SEVERE W/O PSYCHOTIC BEHAVIOR 12/13/2013 ZULEIKA TINGM, CHRISTOPHER 296.33 MO DEPRESSIVE RECURRENT SEVERE W/O PSYCHOTIC BEHAVIOR 12/13/2013 VEL PINA APRNIDI A 296.33 MO DEPRESSIVE RECURRENT SEVERE W/O PSYCHOTIC BEHAVIOR 12/13/2013 ADILIA WHYTE DO K 296.33 MO DEPRESSIVE RECURRENT SEVERE W/O PSYCHOTIC BEHAVIOR 12/13/2013 HOLLY KEVIN, RONNIE E 296.33 MO DEPRESSIVE RECURRENT SEVERE W/O PSYCHOTIC BEHAVIOR 12/13/2013 ZULEIKA DPM, CHRISTOPHER 296.33 MO DEPRESSIVE RECURRENT SEVERE W/O PSYCHOTIC BEHAVIOR 12/13/2013 HOLLY KEVIN, RONNIE E 296.33 MO DEPRESSIVE RECURRENT SEVERE W/O PSYCHOTIC BEHAVIOR 12/13/2013 JOSUE WHYTE DOA K 296.33 MO DEPRESSIVE RECURRENT SEVERE W/O PSYCHOTIC BEHAVIOR 12/13/2013 ZULEIKA DPM, CHRISTOPHER 296.33 MO DEPRESSIVE RECURRENT SEVERE W/O PSYCHOTIC BEHAVIOR 12/13/2013 ZULEIKA DPM, CHRISTOPHER 296.33 MO DEPRESSIVE RECURRENT SEVERE W/O PSYCHOTIC BEHAVIOR 12/13/2013 JOSUE WHYTE DOA K 296.33 MO DEPRESSIVE RECURRENT SEVERE W/O PSYCHOTIC BEHAVIOR 12/13/2013 RENAN DUNBAR APRN 296.33 MO DEPRESSIVE RECURRENT SEVERE W/O PSYCHOTIC BEHAVIOR 12/15/2013 MAC MAST, SARAH Salvador Ot 305.1 TOBACCO USE DISORDER 12/15/2013 MAC MAST, SARAH Salvador Ot 718.[address] 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 01/19/2014 VONNIE IPNA APRN A 461.9 SINUSITIS ACUTE 01/19/2014 VONNIE PINA APRN A 845.10 UNSPECIFIED SITE OF FOOT SPRAIN 01/19/2014 PATO DUEÑAS ADILIA K 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 01/19/2014 JOSUE WHYTE DOA K 461.9 SINUSITIS ACUTE 01/19/2014 JOSUE WHYTE DOA K 845.10 UNSPECIFIED SITE OF FOOT SPRAIN 01/19/2014 ERICK RIDDLE APRNA L 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 01/19/2014 YEISON RIDDLE APRNNYA L 461.9 SINUSITIS ACUTE 01/19/2014 VENKATESH TOVAR EMILY L 845.10 UNSPECIFIED SITE OF FOOT SPRAIN 01/19/2014 RONNIE BARRERA RN 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 01/19/2014 RONNIE BARRERA RN E 461.9 SINUSITIS ACUTE 01/19/2014 RONNIE BARRERA RN E 845.10 UNSPECIFIED SITE OF FOOT SPRAIN 01/19/2014 VONNIE PINA APRN A 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 01/19/2014 YOVANI ADMINISTRATIVE MANAGER, VONNIE A 461.9 SINUSITIS ACUTE 01/19/2014 YOVANI ADMINISTRATIVE MANAGER, VONNIE A 845.10 UNSPECIFIED SITE OF FOOT SPRAIN 01/19/2014 RONNIE BARRERA RN 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 01/19/2014 HOLLY KEVIN, RONNIE E 461.9 SINUSITIS ACUTE 01/19/2014 HOLLY KEVIN, RONNIE E 845.10 UNSPECIFIED SITE OF FOOT SPRAIN 01/19/2014 ZULEIKA DPM, CHRISTOPHER 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 01/19/2014 ZULEIKA DPM, CHRISTOPHER 461.9 SINUSITIS ACUTE 01/19/2014 ZULEIKA DPM, CHRISTOPHER 845.10 UNSPECIFIED SITE OF FOOT SPRAIN 01/19/2014 YOVANI ADMINISTRATIVE MANAGER, VONNIE A 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 01/19/2014 YOVANI ADMINISTRATIVE MANAGER, VONNIE A 461.9 SINUSITIS ACUTE 01/19/2014 YOVANI ADMINISTRATIVE MANAGER, VONNIE A 845.10 UNSPECIFIED SITE OF FOOT SPRAIN 01/19/2014 PATO DO ADILIA K 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 01/19/2014 PATO DUEÑAS ADILIA K 461.9 SINUSITIS ACUTE 01/19/2014 PATO DUEÑAS ADILIA K 845.10 UNSPECIFIED SITE OF FOOT SPRAIN 01/19/2014 RONNIE BARRERA RN E 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 01/19/2014 RONNIE BARRERA RN 461.9 SINUSITIS ACUTE 01/19/2014 RONNIE BARRERA RN E 845.10 UNSPECIFIED SITE OF FOOT SPRAIN 01/19/2014 ZULEIKA DPM, CHRISTOPHER 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 01/19/2014 ZULEIKA DPM, CHRISTOPHER 461.9 SINUSITIS ACUTE 01/19/2014 ZULEIKA DPM, CHRISTOPHER 845.10 UNSPECIFIED SITE OF FOOT SPRAIN 01/19/2014 RONNIE BARRERA RN E 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 01/19/2014 RONNIE BARRERA RN E 461.9 SINUSITIS ACUTE 01/19/2014 RONNIE BARRERA RN E 845.10 UNSPECIFIED SITE OF FOOT SPRAIN 01/19/2014 WHYTE DO ADILIA K 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 01/19/2014 WHYTE DO, ADILIA K 461.9 SINUSITIS ACUTE 01/19/2014 WHYTE DO, ADILIA K 845.10 UNSPECIFIED SITE OF FOOT SPRAIN 01/19/2014 ZULEIKA DPM, CHRISTOPHER 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 01/19/2014 ZULEIKA DPM, CHRISTOPHER 461.9 SINUSITIS ACUTE 01/19/2014 ZULEIKA DPM, CHRISTOPHER 845.10 UNSPECIFIED SITE OF FOOT SPRAIN 01/19/2014 ZULEIKA DPM, CHRISTOPHER 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 01/19/2014 ZULEIKA DPM, CHRISTOPHER 461.9 SINUSITIS ACUTE 01/19/2014 ZULEIKA DPM, CHRISTOPHER 845.10 UNSPECIFIED SITE OF FOOT SPRAIN 01/19/2014 WHYTE DO, ADILIA K 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 01/19/2014 WHYTE DO ADILIA K 461.9 SINUSITIS ACUTE 01/19/2014 WHYTE DO ADILIA K 845.10 UNSPECIFIED SITE OF FOOT SPRAIN 01/19/2014 MANJINDER ADMINISTRATIVE MANAGER, RENAN R 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 01/19/2014 MANJINDER ADMINISTRATIVE MANAGER, RENAN R 461.9 SINUSITIS ACUTE 01/19/2014 MANJINDER ADMINISTRATIVE MANAGER, RENAN R 845.10 UNSPECIFIED SITE OF FOOT SPRAIN 01/31/2014 YOVANI TOVAR, VONNIE A V74.5 STD SCREEN 01/31/2014 WHYTE DO ADILIA K V74.5 STD SCREEN 01/31/2014 EMILY RIDDLE APRN V74.5 STD SCREEN 01/31/2014 RONNIE BARRERA RN V74.5 STD SCREEN 01/31/2014 VONNIE PINA APRN A V74.5 STD SCREEN 01/31/2014 RONNIE BARRERA RN V74.5 STD SCREEN 01/31/2014 ZULEIKA DPM, CHRISTOPHER V74.5 STD SCREEN 01/31/2014 YOVANI TOVAR, VONNIE A V74.5 STD SCREEN 01/31/2014 WHYTE DO ADILIA K V74.5 STD SCREEN 01/31/2014 RONNIE BARRERA RN V74.5 STD SCREEN 01/31/2014 ZULEIKA DPM, CHRISTOPHER V74.5 STD SCREEN 01/31/2014 HOLLY KEVIN, RONNIE E V74.5 STD SCREEN 01/31/2014 WHYTE DO, ADILIA K V74.5 STD SCREEN 01/31/2014 ZULEIKA DPM, CHRISTOPHER V74.5 STD SCREEN 01/31/2014 ZULEIKA DPM, CHRISTOPHER V74.5 STD SCREEN 01/31/2014 WHYTE DO, ADILIA K V74.5 STD SCREEN 01/31/2014 MANJINDER ADMINISTRATIVE MANAGERPAIGE LordINA R V74.5 STD SCREEN 02/07/2014 WHYTE DO, ADILIA K 112.1 CANDIDIASIS VAGINAL 02/07/2014 WHYTE DO, ADILIA K 729.5 PAIN IN LIMB 02/07/2014 WHYTE DO, ADILIA K V65.49 OTHER SPECIFIED COUNSELING 02/07/2014 MADL ADMINISTRATIVE MANAGERERICK LordA L 112.1 CANDIDIASIS VAGINAL 02/07/2014 MADL DANAY TOVARWNYA L 729.5 PAIN IN LIMB 02/07/2014 MADL EMILY TOVAR L V65.49 OTHER SPECIFIED COUNSELING 02/07/2014 HOLLY KEVIN, RONNIE E 112.1 CANDIDIASIS VAGINAL 02/07/2014 HOLLY KEVIN, RONNIE E 729.5 PAIN IN LIMB 02/07/2014 HOLLY KEVIN, RONNIE E V65.49 OTHER SPECIFIED COUNSELING 02/07/2014 YOVANIVEL Lord APRNIDI A 112.1 CANDIDIASIS VAGINAL 02/07/2014 VEL PINA APRNIDI A 729.5 PAIN IN LIMB 02/07/2014 VONNIE PINA APRN A V65.49 OTHER SPECIFIED COUNSELING 02/07/2014 RONNIE BARRERA RN E 112.1 CANDIDIASIS VAGINAL 02/07/2014 HOLLY KEVIN, RONNIE E 729.5 PAIN IN LIMB 02/07/2014 HOLLY KEVIN, RONNIE E V65.49 OTHER SPECIFIED COUNSELING 02/07/2014 ZULEIKA DPM, CHRISTOPHER 112.1 CANDIDIASIS VAGINAL 02/07/2014 ZULEIKA DPM, CHRISTOPHER 729.5 PAIN IN LIMB 02/07/2014 ZULEIKA DPM, CHRISTOPHER V65.49 OTHER SPECIFIED COUNSELING 02/07/2014 YOVANI LA VONNIE A 112.1 CANDIDIASIS VAGINAL 02/07/2014 YVOANI ADMINISTRATIVE MANAGER, VONNIE A 729.5 PAIN IN LIMB 02/07/2014 YOVANI LA VONNIE A V65.49 OTHER SPECIFIED COUNSELING 02/07/2014 WHYTE DO, ADILIA K 112.1 CANDIDIASIS VAGINAL 02/07/2014 WHYTE DO, ADILIA K 729.5 PAIN IN LIMB 02/07/2014 WHYTE DO, ADILIA K V65.49 OTHER SPECIFIED COUNSELING 02/07/2014 HOLLY KEVIN, RONNIE E 112.1 CANDIDIASIS VAGINAL 02/07/2014 HOLLY KEVIN, RONNIE E 729.5 PAIN IN LIMB 02/07/2014 HOLLY KEVIN, RONNIE E V65.49 OTHER SPECIFIED COUNSELING 02/07/2014 ZULEIKA DPM, CHRISTOPHER 112.1 CANDIDIASIS VAGINAL 02/07/2014 ZULEIKA DPM, CHRISTOPHER 729.5 PAIN IN LIMB 02/07/2014 ZULEIKA DPM, CHRISTOPHER V65.49 OTHER SPECIFIED COUNSELING 02/07/2014 HOLLY KEVIN, RONNIE E 112.1 CANDIDIASIS VAGINAL 02/07/2014 HOLLY KEVIN, RONNIE E 729.5 PAIN IN LIMB 02/07/2014 HOLLY KEVIN, RONNIE E V65.49 OTHER SPECIFIED COUNSELING 02/07/2014 WHYTE DO, ADILIA K 112.1 CANDIDIASIS VAGINAL 02/07/2014 WHYTE DO, ADILIA K 729.5 PAIN IN LIMB 02/07/2014 WHYTE DO, ADILIA K V65.49 OTHER SPECIFIED COUNSELING 02/07/2014 ZULEIKA DPM, CHRISTOPHER 112.1 CANDIDIASIS VAGINAL 02/07/2014 ZULEIKA DPM, CHRISTOPHER 729.5 PAIN IN LIMB 02/07/2014 ZULEIKA DPM, CHRISTOPHER V65.49 OTHER SPECIFIED COUNSELING 02/07/2014 ZULEIKA DPM, CHRISTOPHER 112.1 CANDIDIASIS VAGINAL 02/07/2014 ZULEIKA DPM, CHRISTOPHER 729.5 PAIN IN LIMB 02/07/2014 ZULEIKA DPM, CHRISTOPHER V65.49 OTHER SPECIFIED COUNSELING 02/07/2014 WHYTE DO, ADILIA K 112.1 CANDIDIASIS VAGINAL 02/07/2014 WHYTE DO, ADILIA K 729.5 PAIN IN LIMB 02/07/2014 WHYTE DO, ADILIA K V65.49 OTHER SPECIFIED COUNSELING 02/07/2014 PAIGE DUNBAR APRNINA R 112.1 CANDIDIASIS VAGINAL 02/07/2014 MANJINDER ADMINISTRATIVE MANAGER, RENAN R 729.5 PAIN IN LIMB 02/07/2014 PAIGE DUNBAR APRNINA R V65.49 OTHER SPECIFIED COUNSELING 04/13/2014 MADL ADMINISTRATIVE MANAGER, EMILY L 462 ACUTE PHARYNGITIS 04/13/2014 MADL ADMINISTRATIVE MANAGER, EMILY L 465.9 UPPER RESPIRATORY INFECTION 04/13/2014 HOLLY RN, RONNIE E 462 ACUTE PHARYNGITIS 04/13/2014 HOLLY RN, RONNIE E 465.9 UPPER RESPIRATORY INFECTION 04/13/2014 YOVANI ADMINISTRATIVE MANAGER, VONNIE A 462 ACUTE PHARYNGITIS 04/13/2014 YOVANI ADMINISTRATIVE MANAGER, VONNIE A 465.9 UPPER RESPIRATORY INFECTION 04/13/2014 HOLLY KEVIN, RONNIE E 462 ACUTE PHARYNGITIS 04/13/2014 HOLLY RN, RONNIE E 465.9 UPPER RESPIRATORY INFECTION 04/13/2014 ZULEIKA DPM, CHRISTOPHER 462 ACUTE PHARYNGITIS 04/13/2014 ZULEIKA DPM, CHRISTOPHER 465.9 UPPER RESPIRATORY INFECTION 04/13/2014 YOVANI ADMINISTRATIVE MANAGER, VONNIE A 462 ACUTE PHARYNGITIS 04/13/2014 YOVANI ADMINISTRATIVE MANAGER, VONNIE A 465.9 UPPER RESPIRATORY INFECTION 04/13/2014 WHYTE DO, ADILIA K 462 ACUTE PHARYNGITIS 04/13/2014 WHYTE DO, ADILIA K 465.9 UPPER RESPIRATORY INFECTION 04/13/2014 HOLLY KEVIN, RONNIE E 462 ACUTE PHARYNGITIS 04/13/2014 HOLLY KEVIN, RONNIE E 465.9 UPPER RESPIRATORY INFECTION 04/13/2014 ZULEIKA DPM, CHRISTOPHER 462 ACUTE PHARYNGITIS 04/13/2014 ZULEIKA DPM, CHRISTOPHER 465.9 UPPER RESPIRATORY INFECTION 04/13/2014 HOLLY KEVIN, RONNIE E 462 ACUTE PHARYNGITIS 04/13/2014 HOLLY KEVIN, RONNIE E 465.9 UPPER RESPIRATORY INFECTION 04/13/2014 WHYTE DO, ADILIA K 462 ACUTE PHARYNGITIS 04/13/2014 WHYTE DO, ADILIA K 465.9 UPPER RESPIRATORY INFECTION 04/13/2014 ZULEIKA DPM, CHRISTOPHER 462 ACUTE PHARYNGITIS 04/13/2014 ZULEIKA DPM, CHRISTOPHER 465.9 UPPER RESPIRATORY INFECTION 04/13/2014 ZULEIKA DPM, CHRISTOPHER 462 ACUTE PHARYNGITIS 04/13/2014 ZULEIKA DPM, CHRISTOPHER 465.9 UPPER RESPIRATORY INFECTION 04/13/2014 WHYTE DO, ADILIA K 462 ACUTE PHARYNGITIS 04/13/2014 WHYTE DO, ADILIA K 465.9 UPPER RESPIRATORY INFECTION 04/13/2014 MANJINDER TOVAR, RENAN R 462 ACUTE PHARYNGITIS 04/13/2014 RENAN DUNBAR APRN R 465.9 UPPER RESPIRATORY INFECTION 05/05/2014 VONNIE PINA APRN A V25.09 CONTRACEPTIVE COUNSELING - GENERAL 05/05/2014 RONNIE BARRERA RN V25.09 CONTRACEPTIVE COUNSELING - GENERAL 05/05/2014 ZULEIKA DPM, CHRISTOPHER V25.09 CONTRACEPTIVE COUNSELING - GENERAL 05/05/2014 VONNIE PINA APRN A V25.09 CONTRACEPTIVE COUNSELING - GENERAL 05/05/2014 ADILIA WHYTE DO K V25.09 CONTRACEPTIVE COUNSELING - GENERAL 05/05/2014 RONNIE BARRERA RN V25.09 CONTRACEPTIVE COUNSELING - GENERAL 05/05/2014 ZULEIKA DPM, CHRISTOPHER V25.09 CONTRACEPTIVE COUNSELING - GENERAL 05/05/2014 HOLLY KEVIN, RONNIE Shanks V25.09 CONTRACEPTIVE COUNSELING - GENERAL 05/05/2014 WHYTE DOADILIA K V25.09 CONTRACEPTIVE COUNSELING - GENERAL 05/05/2014 ZULEIKA DPM, CHRISTOPHER V25.09 CONTRACEPTIVE COUNSELING - GENERAL 05/05/2014 ZULEIKA DPM, CHRISTOPHER V25.09 CONTRACEPTIVE COUNSELING - GENERAL 05/05/2014 JOSUE WHYTE DOA K V25.09 CONTRACEPTIVE COUNSELING - GENERAL 05/05/2014 RENAN DUNBAR APRN R V25.09 CONTRACEPTIVE COUNSELING - GENERAL 05/27/2014 ZULEIKA DPM, CHRISTOPHER 726.79 BURSITIS FOOT 05/27/2014 ZULEIKA DPM, CHRISTOPHER 729.2 NEURITIS 05/27/2014 VONNIE PINA APRN A 726.79 BURSITIS FOOT 05/27/2014 VEL PINA APRNIDI A 729.2 NEURITIS 05/27/2014 WHYTE DOJOSUEA K 726.79 BURSITIS FOOT 05/27/2014 WHYTE DOJOSUEA K 729.2 NEURITIS 05/27/2014 RONNIE BARRERA RN 726.79 BURSITIS FOOT 05/27/2014 RONNIE BARRERA RN 729.2 NEURITIS 05/27/2014 ZULEIKA DPM, CHRISTOPHER 726.79 BURSITIS FOOT 05/27/2014 ZULEIKA DPM, CHRISTOPHER 729.2 NEURITIS 05/27/2014 RONNIE BARRERA RN 726.79 BURSITIS FOOT 05/27/2014 HOLLY KEVIN, RONNIE Shanks 729.2 NEURITIS 05/27/2014 WHYTE DO, ADILIA K 726.79 BURSITIS FOOT 05/27/2014 WHYTE DO, ADILIA K 729.2 NEURITIS 05/27/2014 ZULEIKA DPM, CHRISTOPHER 726.79 BURSITIS FOOT 05/27/2014 ZULEIKA DPM, CHRISTOPHER 729.2 NEURITIS 05/27/2014 ZULEIKA DPM, CHRISTOPHER 726.79 BURSITIS FOOT 05/27/2014 ZULEIKA DPM, CHRISTOPHER 729.2 NEURITIS 05/27/2014 WHYTE DO, ADILIA K 726.79 BURSITIS FOOT 05/27/2014 WHYTE DO, ADILIA K 729.2 NEURITIS 05/27/2014 MANJINDER ADMINISTRATIVE MANAGER, RENAN R 726.79 BURSITIS FOOT 05/27/2014 MANJINDER ADMINISTRATIVE MANAGER, RENAN R 729.2 NEURITIS 06/03/2014 VONNIE PINA APRN A 296.30 MAJOR DEPRESSIVE AFFECTIVE DISORDER RECURRENT EPISODE UNSPECIFIED DEGREE 06/03/2014 WHYTE DOJOSUEA K 296.30 MAJOR DEPRESSIVE AFFECTIVE DISORDER RECURRENT EPISODE UNSPECIFIED DEGREE 06/03/2014 RONNIE BARRERA RN 296.30 MAJOR DEPRESSIVE AFFECTIVE DISORDER RECURRENT EPISODE UNSPECIFIED DEGREE 06/03/2014 ZULEIKA DPM, CHRISTOPHER 296.30 MAJOR DEPRESSIVE AFFECTIVE DISORDER RECURRENT EPISODE UNSPECIFIED DEGREE 06/03/2014 RONNIE BARRERA RN 296.30 MAJOR DEPRESSIVE AFFECTIVE DISORDER RECURRENT EPISODE UNSPECIFIED DEGREE 06/03/2014 WHYTE DO, ADILIA K 296.30 MAJOR DEPRESSIVE AFFECTIVE DISORDER RECURRENT EPISODE UNSPECIFIED DEGREE 06/03/2014 ZULEIKA DPM, CHRISTOPHER 296.30 MAJOR DEPRESSIVE AFFECTIVE DISORDER RECURRENT EPISODE UNSPECIFIED DEGREE 06/03/2014 ZULEIKA DPM, CHRISTOPHER 296.30 MAJOR DEPRESSIVE AFFECTIVE DISORDER RECURRENT EPISODE UNSPECIFIED DEGREE 06/03/2014 WHYTE DO, ADILIA K 296.30 MAJOR DEPRESSIVE AFFECTIVE DISORDER RECURRENT EPISODE UNSPECIFIED DEGREE 06/03/2014 MANJINDER TOVAR RENAN R 296.30 MAJOR DEPRESSIVE AFFECTIVE DISORDER RECURRENT EPISODE UNSPECIFIED DEGREE 06/07/2014 VONNIE PINA APRN V25.5 IMPLANON INSERTION 06/07/2014 WHYTE DOADILIA K V25.5 IMPLANON INSERTION 06/07/2014 RONNIE BARRERA RN V25.5 IMPLANON INSERTION 06/07/2014 ZULEIKA DPM, CHRISTOPHER V25.5 IMPLANON INSERTION 06/07/2014 HOLLY KEVIN, RONNIE E V25.5 IMPLANON INSERTION 06/07/2014 WHYTE DO, ADILIA K V25.5 IMPLANON INSERTION 06/07/2014 ZULEIKA DPM, CHRISTOPHER V25.5 IMPLANON INSERTION 06/07/2014 ZULEIKA DPM, CHRISTOPHER V25.5 IMPLANON INSERTION 06/07/2014 WHYTE DO, ADILIA K V25.5 IMPLANON INSERTION 06/07/2014 RENAN DUNBAR APRN R V25.5 IMPLANON INSERTION 06/21/2014 WHYTE DO, ADILIA K 782.1 RASH 06/21/2014 WHYTE DO, ADILIA K V58.69 HIGH RISK MEDICATION 06/21/2014 HOLLY KEVIN, RONNIE E 782.1 RASH 06/21/2014 HOLLY KEVIN, RONNIE E V58.69 HIGH RISK MEDICATION 06/21/2014 ZULEIKA DPM, CHRISTOPHER 782.1 RASH 06/21/2014 ZULEIKA DPM, CHRISTOPHER V58.69 HIGH RISK MEDICATION 06/21/2014 HOLLY KEVIN, RONNIE E 782.1 RASH 06/21/2014 HOLLY KEVIN, RONNIE E V58.69 HIGH RISK MEDICATION 06/21/2014 WHYTE DO, ADILIA K 782.1 RASH 06/21/2014 WHYTE DO, ADILIA K V58.69 HIGH RISK MEDICATION 06/21/2014 ZULEIKA DPM, CHRISTOPHER 782.1 RASH 06/21/2014 ZULEIKA DPM, CHRISTOPHER V58.69 HIGH RISK MEDICATION 06/21/2014 ZULEIKA DPM, CHRISTOPHER 782.1 RASH 06/21/2014 ZULEIKA DPM, CHRISTOPHER V58.69 HIGH RISK MEDICATION 06/21/2014 WHYTE DO, ADILIA K 782.1 RASH 06/21/2014 WHYTE DO, ADILIA K V58.69 HIGH RISK MEDICATION 06/21/2014 PAIGE DUNBAR APRNINA R 782.1 RASH 06/21/2014 MANJINDER TOVAR RENAN R V58.69 HIGH RISK MEDICATION 08/01/2014 WHYTE DO, ADILIA K 782.0 DISTURBANCE OF SKIN SENSATION 08/01/2014 WHYTE DO, ADILIA K V15.88 PERSONAL HISTORY OF FALL 08/01/2014 ZULEIKA DPM, CHRISTOPHER 782.0 DISTURBANCE OF SKIN SENSATION 08/01/2014 ZULEIKA DPM, CHRISTOPHER V15.88 PERSONAL HISTORY OF FALL 08/01/2014 ZULEIKA DPM, CHRISTOPHER 782.0 DISTURBANCE OF SKIN SENSATION 08/01/2014 ZULEIKA DPM, CHRISTOPHER V15.88 PERSONAL HISTORY OF FALL 08/01/2014 WHYTE DO, ADILIA K 782.0 DISTURBANCE OF SKIN SENSATION 08/01/2014 WHYTE DO, ADILIA K V15.88 PERSONAL HISTORY OF FALL 08/01/2014 MANJINDER ADMINISTRATIVE MANAGER, RENAN R 782.0 DISTURBANCE OF SKIN SENSATION 08/01/2014 MANJINDER ADMINISTRATIVE MANAGER, RENAN R V15.88 PERSONAL HISTORY OF FALL 08/08/2014 Ot 789.01 08/08/2014 Ot 682.2 08/08/2014 Ot V22.2 08/08/2014 Ot 656.63 08/08/2014 Ot 789.09 08/08/2014 Ot V22.1 08/08/2014 Ot V23.9 08/08/2014 Ot 717.5 08/08/2014 Ot 959.7 08/08/2014 Ot E000.8 08/08/2014 Ot E849.0 08/08/2014 Ot E880.9 08/08/2014 SHYANNE STALEY, TIEN M Ot 724.2 08/08/2014 ITEN MICHAEL M Ot 729.1 08/08/2014 SHYANNE STALEY, TIEN M Ot 790.6 08/08/2014 LUMA MICHAELUA M Ot V64.3 08/08/2014 ALANNA MAST, ANANDA Fernandez Ot 710.3 08/08/2014 ALANNA MAST, ANANDA Fernandez Ot V72.84 08/08/2014 TIEN MICHAEL M Ot 244.9 08/08/2014 SHYANNE STALEY, TIEN M Ot 789.01 08/08/2014 BRANDEE ADAIR Ot 575.8 08/08/2014 MAC MAST, SARAH Salvador Ot 840.9 08/08/2014 MAC MAST, SARAH Salvador Ot E000.8 08/08/2014 MAC MAST, SARAH Salvador Ot E928.9 08/08/2014 SARAH WATTS MD Ot V72.63 08/08/2014 SARAH WATTS MD Ot V72.84 08/08/2014 ASRAH WATTS MD Ot V74.8 08/25/2014 ADILIA WHYTE DO 356.8 OTHER SPECIFIED IDIOPATHIC PERIPHERAL NEUROPATHY 08/25/2014 ZULEIKA DPM, CHRISTOPHER 356.8 OTHER SPECIFIED IDIOPATHIC PERIPHERAL NEUROPATHY 08/25/2014 ZULEIKA DPM, CHRISTOPHER 356.8 OTHER SPECIFIED IDIOPATHIC PERIPHERAL NEUROPATHY 08/25/2014 ADILIA WHYTE DO K 356.8 OTHER SPECIFIED IDIOPATHIC PERIPHERAL NEUROPATHY 08/25/2014 RENAN DUNBAR APRN R 356.8 OTHER SPECIFIED IDIOPATHIC PERIPHERAL NEUROPATHY 08/25/2014 TIEN MICHAEL Ot 721.3 08/25/2014 TIEN MICHAEL Ot V15.88 08/25/2014 TIEN MICHAEL Ot V58.69 08/26/2014 ZULEIKA DPM, CHRISTOPHER 729.4 PLANTAR FASCIITIS 08/26/2014 ZULEIKA DPM, CHRISTOPHER 735.0 HALLUX VALGUS (ACQUIRED) 08/26/2014 ZULEIKA DPM, CHRISTOPHER 729.4 PLANTAR FASCIITIS 08/26/2014 ZULEIKA DPM, CHRISTOPHER 735.0 HALLUX VALGUS (ACQUIRED) 08/26/2014 ADILIA WHYTE DO K 729.4 PLANTAR FASCIITIS 08/26/2014 ADILIA WHYTE DO 735.0 HALLUX VALGUS (ACQUIRED) 08/26/2014 RENAN DUNBAR APRN R 729.4 PLANTAR FASCIITIS 08/26/2014 RENAN DUNBAR APRN R 735.0 HALLUX VALGUS (ACQUIRED) 11/23/2014 ALFRED GARCIA DO Ot 244.9 HYPOTHYROIDISM NOS 11/23/2014 ALFRED GARCIA DO Ot 300.00 ANXIETY STATE NOS 11/23/2014 ALFRED GARCIA DO Ot 729.1 MYALGIA AND MYOSITIS NOS 11/23/2014 ALFRED GARCIA DO Ot 780.96 GENERALIZED PAIN 12/01/2014 Ot 789.01 12/01/2014 Ot 682.2 12/01/2014 Ot V22.2 12/01/2014 Ot 656.63 12/01/2014 Ot 789.09 12/01/2014 Ot V22.1 12/01/2014 Ot V23.9 12/01/2014 Ot 717.5 12/01/2014 Ot 959.7 12/01/2014 Ot E000.8 12/01/2014 Ot E849.0 12/01/2014 Ot E880.9 12/01/2014 KIMBLE PA, TIEN M Ot 724.2 12/01/2014 KIMBLE PA, TIEN M Ot 729.1 12/01/2014 KIMBLE PA, TIEN M Ot 790.6 12/01/2014 KIMBLE PA, TIEN M Ot V64.3 12/01/2014 ALANNA MAST, ANANDA M Ot 710.3 12/01/2014 ALANNA MAST, ANANDA M Ot V72.84 12/01/2014 KIMBLE PA, TIEN M Ot 244.9 12/01/2014 KIMBLE PA, TIEN M Ot 789.01 12/01/2014 BRANDEE ADAIR Ot 575.8 12/01/2014 MAC MAST, SARAH P Ot 840.9 12/01/2014 MAC MAST, SARAH P Ot E000.8 12/01/2014 MAC MAST, SARAH P Ot E928.9 12/01/2014 MAC MAST, SARAH P Ot V72.63 12/01/2014 MAC MAST, SARAH P Ot V72.84 12/01/2014 MAC MAST, SARAH P Ot V74.8 12/01/2014 KIMBLE PA, TIEN M Ot 721.3 12/01/2014 KIMBLE PA, TIEN M Ot V15.88 12/01/2014 KIMBLE PA, TIEN M Ot V58.69 12/21/2014 KIMBLE PA, TIEN M Ot 244.9 02/06/2015 KIMBLE PA, TIEN M Ot 724.2 02/06/2015 KIMBLE PA, TIEN M Ot 729.1 02/06/2015 KIMBLE PA, TIEN M Ot 790.6 02/06/2015 KIMBLE PA, TIEN M Ot V64.3 06/20/2015 HILARY CHOU MD Ot N39.0 06/20/2015 HILARY CHOU MD Ot R10.2 12/29/2015 Ot 789.01 ABDOMINAL PAIN, RIGHT UPPER QUADRANT 12/29/2015 Ot 682.2 CELLULITIS OF TRUNK 12/29/2015 Ot V22.2 PREG STATE, INCIDENTAL 12/29/2015 Ot 656.63 EXCESS FET GRTH-ANTEPART 12/29/2015 Ot 789.09 ABDOMINAL PAIN, OTHER SPECIFIED SITE 12/29/2015 Ot V22.1 SUPERVIS OTH NORMAL PREG 12/29/2015 Ot V23.9 SUPRV HIGH- RISK PREG NOS 12/29/2015 Ot 717.5 DERANGEMENT MENISCUS NEC 12/29/2015 Ot 959.7 LOWER LEG INJURY NOS 12/29/2015 Ot E000.8 OTHER EXTERNAL CAUSE STATUS 12/29/2015 Ot E849.0 ACCIDENT IN HOME 12/29/2015 Ot E880.9 FALL ON STAIR/STEP NEC 12/29/2015 TIEN MICHAEL Ot 724.2 LUMBAGO 12/29/2015 TIEN MICHAEL Ot 729.1 MYALGIA AND MYOSITIS NOS 12/29/2015 TIEN MICHAEL Ot 790.6 ABN BLOOD CHEMISTRY NEC 12/29/2015 TIEN MICHAEL Ot V64.3 NO PROC FOR REASONS NEC 12/29/2015 ANANDA MO MD Ot 710.3 DERMATOMYOSITIS 12/29/2015 ANANDA MO MD Ot V72.84 EXAM PRE-OPERATIVE NOS 12/29/2015 TIEN MICHAEL Ot 244.9 HYPOTHYROIDISM NOS 12/29/2015 TIEN MICHAEL Ot 789.01 ABDOMINAL PAIN, RIGHT UPPER QUADRANT 12/29/2015 BRANDEE ADAIR Ot 575.8 DIS OF GALLBLADDER NEC 12/29/2015 SARAH WATTS MD Ot 840.9 SPRAIN SHOULDER/ARM NOS 12/29/2015 SARAH WATTS MD Ot E000.8 OTHER EXTERNAL CAUSE STATUS 12/29/2015 SARAH WATTS MD Ot E928.9 ACCIDENT NOS 12/29/2015 SARAH WATTS MD Ot V72.63 PRE-PROCEDURAL LABORATORY EXAMINATION 12/29/2015 SARAH WATTS MD Ot V72.84 EXAM PRE-OPERATIVE NOS 12/29/2015 SARAH WATTS MD Ot V74.8 SCREEN-BACTERIAL DIS NEC 12/29/2015 TIEN MICHAEL Ot 721.3 LUMBOSACRAL SPONDYLOSIS 12/29/2015 TIEN MICHAEL Ot V15.88 HISTORY OF FALL 12/29/2015 TIEN MICHAEL Rebecca Ot V58.69 OTH MED,LT,CURRENT USE 12/29/2015 TIEN MICHAEL Ot 244.9 HYPOTHYROIDISM NOS 12/29/2015 EFFIE MAST, HILARY Pickens Ot N39.0 URINARY TRACT INFECTION, SITE NOT SPECIF 12/29/2015 EFFIE MAST, HILARY Pickens Ot R10.2 PELVIC AND PERINEAL PAIN 12/31/2015 LAUREN DUEÑAS BAILEE Ot E03.8 OTHER SPECIFIED HYPOTHYROIDISM 12/31/2015 AGUILAR DO BAILEE Ot E66.9 OBESITY, UNSPECIFIED 12/31/2015 AGUILAR DO BAILEE Ot E87.6 HYPOKALEMIA 12/31/2015 AGUILAR DO BAILEE Ot F17.210 NICOTINE DEPENDENCE, CIGARETTES, UNCOMPL 12/31/2015 AGUILAR DO BAILEE Ot I10 ESSENTIAL (PRIMARY) HYPERTENSION 12/31/2015 LAUREN DUEÑAS BAILEE Ot I30.9 ACUTE PERICARDITIS, UNSPECIFIED 12/31/2015 LAUREN DUEÑAS BAILEE Ot J45.909 UNSPECIFIED ASTHMA, UNCOMPLICATED 12/31/2015 LAUREN DUEÑAS BAILEE Ot K52.9 NONINFECTIVE GASTROENTERITIS AND COLITIS 12/31/2015 AGUILAR DO BAILEE Ot Z68.41 BODY MASS INDEX (BMI) 40.0-44.9, ADULT 01/01/2016 ALFRED GARCIA DO Ot E03.9 HYPOTHYROIDISM, UNSPECIFIED 01/01/2016 RADHA DUEÑAS ALFRED K Ot F17.210 NICOTINE DEPENDENCE, CIGARETTES, UNCOMPL 01/01/2016 ALFRED GARCIA DO K Ot R07.89 OTHER CHEST PAIN 01/01/2016 ALFRED GARCIA DO Ot R74.8 ABNORMAL LEVELS OF OTHER SERUM ENZYMES 03/15/2016 HONG SIMPSON MD Ot E03.9 HYPOTHYROIDISM, UNSPECIFIED 03/15/2016 HONG SIMPSON MD Ot E78.5 HYPERLIPIDEMIA, UNSPECIFIED 03/15/2016 HONG SIMPSON MD Ot I10 ESSENTIAL (PRIMARY) HYPERTENSION 03/15/2016 HONG SIMPSON MD Ot I31.3 PERICARDIAL EFFUSION (NONINFLAMMATORY) 03/15/2016 HONG SIMPSON MD Ot I47.1 SUPRAVENTRICULAR TACHYCARDIA 03/15/2016 HONG SIMPSON MD Ot R07.9 CHEST PAIN, UNSPECIFIED 03/15/2016 HONG SIMPSON MD Ot E03.9 HYPOTHYROIDISM, UNSPECIFIED 03/15/2016 HONG SIMPSON MD Ot E78.5 HYPERLIPIDEMIA, UNSPECIFIED 03/15/2016 HONG SIMPSON MD Ot I10 ESSENTIAL (PRIMARY) HYPERTENSION 03/15/2016 HONG SIMPSON MD Ot I31.3 PERICARDIAL EFFUSION (NONINFLAMMATORY) 03/15/2016 HONG SIMPSON MD Ot I47.1 SUPRAVENTRICULAR TACHYCARDIA 03/15/2016 HONG SIMPSON MD Ot R07.9 CHEST PAIN, UNSPECIFIED 03/19/2016 HONG SIMPSON MD Ot E03.9 HYPOTHYROIDISM, UNSPECIFIED 03/19/2016 HONG SIMPSON MD Ot E78.5 HYPERLIPIDEMIA, UNSPECIFIED 03/19/2016 HONG SIMPSON MD Ot I10 ESSENTIAL (PRIMARY) HYPERTENSION 03/19/2016 HONG SIMPSON MD Ot I31.3 PERICARDIAL EFFUSION (NONINFLAMMATORY) 03/19/2016 HONG SIMPSON MD Ot I47.1 SUPRAVENTRICULAR TACHYCARDIA 03/19/2016 HONG SIMPSON MD Ot R07.9 CHEST PAIN, UNSPECIFIED 03/28/2016 HONG SIMPSON MD Ot E03.9 HYPOTHYROIDISM, UNSPECIFIED 03/28/2016 HONG SIMPSON MD Ot E78.5 HYPERLIPIDEMIA, UNSPECIFIED 03/28/2016 HONG SIMPSON MD Ot I10 ESSENTIAL (PRIMARY) HYPERTENSION 03/28/2016 HONG SIMPSON MD Ot I31.3 PERICARDIAL EFFUSION (NONINFLAMMATORY) 03/28/2016 HONG SIMPSON MD Ot I47.1 SUPRAVENTRICULAR TACHYCARDIA 03/28/2016 HONG SIMPSON MD Ot R07.9 CHEST PAIN, UNSPECIFIED 04/04/2016 HONG SIMPSON MD Ot E03.9 HYPOTHYROIDISM, UNSPECIFIED 04/04/2016 HONG SIMPSON MD Ot E78.5 HYPERLIPIDEMIA, UNSPECIFIED 04/04/2016 HONG SIMPSON MD Ot I10 ESSENTIAL (PRIMARY) HYPERTENSION 04/04/2016 HONG SIMPSON MD Ot I31.1 CHRONIC CONSTRICTIVE PERICARDITIS 04/04/2016 HONG SIMPSON MD Ot I47.1 SUPRAVENTRICULAR TACHYCARDIA 04/04/2016 HONG SIMPSON MD Ot R07.9 CHEST PAIN, UNSPECIFIED 04/24/2016 HONG SIMPSON MD Ot E03.9 HYPOTHYROIDISM, UNSPECIFIED 04/24/2016 HONG SIMPSON MD Ot E78.5 HYPERLIPIDEMIA, UNSPECIFIED 04/24/2016 HONG SIMPSON MD Ot I10 ESSENTIAL (PRIMARY) HYPERTENSION 04/24/2016 HONG SIMPSON MD Ot I31.1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 Barrett Peña 300.00 ANXIETY STATE, UNSPECIFIED 10/10/2017 Barrett Peña 786.5 CHEST PAIN 10/10/2017 Barrett Peña F41.9 ANXIETY DISORDER, UNSPECIFIED 10/10/2017 Barrett Peña R07.89 OTHER CHEST PAIN 11/18/2017 Duy Mcfadden W 244.9 UNSPECIFIED HYPOTHYROIDISM 11/18/2017 Duy Mcfadden W 626.4 IRREGULAR MENSTRUAL CYCLE 11/18/2017 Duy Mcfadden W E03.9 HYPOTHYROIDISM, UNSPECIFIED 11/18/2017 Duy Mcfadden W N92.6 IRREGULAR MENSTRUATION, UNSPECIFIED 11/18/2017 Duy Mcfadden W 244.9 UNSPECIFIED HYPOTHYROIDISM 11/18/2017 Duy Mcfadden W 346.90 MIGRAINE, UNSPECIFIED, WITHOUT MENTION OF INTRACTABLE MIGRAINE, WITHOUT MENTION OF STATUS MIGRAINOSUS 11/18/2017 Taty McfaddenNikhil W 626.4 IRREGULAR MENSTRUAL CYCLE 11/18/2017 Bogdan, Duy W E03.9 HYPOTHYROIDISM, UNSPECIFIED 11/18/2017 Bogdan, Duy Cunningham G43.909 MIGRAINE, UNSPECIFIED, NOT INTRACTABLE, WITHOUT STATUS MIGRAINOSUS 11/18/2017 Bogdan, Duy W N92.6 IRREGULAR MENSTRUATION, UNSPECIFIED 11/18/2017 Bogdan, Duy W 244.9 UNSPECIFIED HYPOTHYROIDISM 11/18/2017 Bogdan, Duy W 346.90 MIGRAINE, UNSPECIFIED, WITHOUT MENTION OF INTRACTABLE MIGRAINE, WITHOUT MENTION OF STATUS MIGRAINOSUS 11/18/2017 Bogdan, Duy W 626.4 IRREGULAR MENSTRUAL CYCLE 11/18/2017 Bogdan, Duy W E03.9 HYPOTHYROIDISM, UNSPECIFIED 11/18/2017 Bogdan, Duy Cunningham G43.909 MIGRAINE, UNSPECIFIED, NOT INTRACTABLE, WITHOUT STATUS MIGRAINOSUS 11/18/2017 Duy Mcfadden N92.6 IRREGULAR MENSTRUATION, UNSPECIFIED 12/24/2017 Ot 644.03 12/24/2017 Ot 474.00 12/24/2017 Ot V72.81 12/24/2017 Ot V72.83 12/24/2017 Ot 242.00 12/24/2017 Ot 789.01 ABDOMINAL PAIN, RIGHT UPPER QUADRANT 12/24/2017 Ot 682.2 CELLULITIS OF TRUNK 12/24/2017 Ot V22.2 PREG STATE, INCIDENTAL 12/24/2017 JAKOB CRUZ MD Ot K82.8 OTHER SPECIFIED DISEASES OF GALLBLADDER 12/24/2017 Ot 656.63 EXCESS FET GRTH-ANTEPART 12/24/2017 Ot 789.09 ABDOMINAL PAIN, OTHER SPECIFIED SITE 12/24/2017 Ot V22.1 SUPERVIS OTH NORMAL PREG 12/24/2017 Ot V23.9 SUPRV HIGH- RISK PREG NOS 12/24/2017 Ot 717.5 DERANGEMENT MENISCUS NEC 12/24/2017 Ot 959.7 LOWER LEG INJURY NOS 12/24/2017 Ot E000.8 OTHER EXTERNAL CAUSE STATUS 12/24/2017 Ot E849.0 ACCIDENT IN HOME 12/24/2017 Ot E880.9 FALL ON STAIR/STEP NEC 12/24/2017 TIEN MICHAEL Ot 724.2 LUMBAGO 12/24/2017 TIEN MICHAEL Ot 729.1 MYALGIA AND MYOSITIS NOS 12/24/2017 TIEN MICHAEL Ot 790.6 ABN BLOOD CHEMISTRY NEC 12/24/2017 TIEN MICHAEL Ot V64.3 NO PROC FOR REASONS NEC 12/24/2017 ANANDA MO MD Ot 710.3 DERMATOMYOSITIS 12/24/2017 ANANDA MO MD Ot V72.84 EXAM PRE-OPERATIVE NOS 12/24/2017 TIEN MICHAEL Ot 244.9 HYPOTHYROIDISM NOS 12/24/2017 TIEN MICHAEL Ot 789.01 ABDOMINAL PAIN, RIGHT UPPER QUADRANT 12/24/2017 BRANDEE ADAIR Ot 575.8 DIS OF GALLBLADDER NEC 12/24/2017 SARAH WATTS MD Ot 840.9 SPRAIN SHOULDER/ARM NOS 12/24/2017 SARAH WATTS MD Ot E000.8 OTHER EXTERNAL CAUSE STATUS 12/24/2017 SARAH WATTS MD Ot E928.9 ACCIDENT NOS 12/24/2017 SARAH WATTS MD Ot V72.63 PRE-PROCEDURAL LABORATORY EXAMINATION 12/24/2017 SARAH WATTS MD Ot V72.84 EXAM PRE-OPERATIVE NOS 12/24/2017 SARAH WATTS MD Ot V74.8 SCREEN-BACTERIAL DIS NEC 12/24/2017 TIEN MICHAEL Ot 721.3 LUMBOSACRAL SPONDYLOSIS 12/24/2017 TIEN MICHAEL Ot V15.88 HISTORY OF FALL 12/24/2017 TIEN MICHAEL Ot V58.69 [facility] MED,LT,CURRENT USE 12/24/2017 TIEN MICHAEL Ot 724.2 LUMBAGO 12/24/2017 TIEN MICHAEL Ot 729.1 MYALGIA AND MYOSITIS NOS 12/24/2017 TIEN MICHAEL Ot 790.6 ABN BLOOD CHEMISTRY NEC 12/24/2017 TIEN MICHAEL Ot V64.3 NO PROC FOR REASONS NEC 12/24/2017 ANANDA MO MD Ot 710.3 DERMATOMYOSITIS 12/24/2017 ANANDA MO MD Ot V72.84 EXAM PRE-OPERATIVE NOS 12/24/2017 TIEN MICHAEL Ot 244.9 HYPOTHYROIDISM NOS 12/24/2017 TIEN MICHAEL Ot 789.01 ABDOMINAL PAIN, RIGHT UPPER QUADRANT 12/24/2017 BRANDEE ADAIR HEALTH INFORMATION ASSISTANT Ot 575.8 DIS OF GALLBLADDER NEC 12/24/2017 SARAH WATTS MD Ot 840.9 SPRAIN SHOULDER/ARM NOS 12/24/2017 SARAH WATTS MD Ot E000.8 OTHER EXTERNAL CAUSE STATUS 12/24/2017 SARAH WATTS MD Ot E928.9 ACCIDENT NOS 12/24/2017 SARAH WATTS MD Ot V72.63 PRE-PROCEDURAL LABORATORY EXAMINATION 12/24/2017 SARAH WATTS MD Ot V72.84 EXAM PRE-OPERATIVE NOS 12/24/2017 SARAH AWTTS MD Ot V74.8 SCREEN-BACTERIAL DIS NEC 12/24/2017 TIEN MICHAEL Ot 721.3 LUMBOSACRAL SPONDYLOSIS 12/24/2017 TIEN MICHAEL Ot V15.88 HISTORY OF FALL 12/24/2017 TIEN MICHAEL Ot V58.69 OTH MED,LT,CURRENT USE 12/24/2017 TIEN MICHAEL Ot 244.9 HYPOTHYROIDISM NOS 12/24/2017 HILARY CHOU MD Ot N39.0 URINARY TRACT INFECTION, SITE NOT SPECIF 12/24/2017 HILARY CHOU MD Ot R10.2 PELVIC AND PERINEAL PAIN 12/24/2017 HONG SIMPSON MD Ot E03.9 HYPOTHYROIDISM, UNSPECIFIED 12/24/2017 HONG SIMPSON MD Ot E78.5 HYPERLIPIDEMIA, UNSPECIFIED 12/24/2017 HONG SIMPSON MD Ot I10 ESSENTIAL (PRIMARY) HYPERTENSION 12/24/2017 HONG SIMPSON MD Ot I31.3 PERICARDIAL EFFUSION (NONINFLAMMATORY) 12/24/2017 HONG SIMPSON MD Ot I47.1 SUPRAVENTRICULAR TACHYCARDIA 12/24/2017 HONG SIMPSON MD Ot R07.9 CHEST PAIN, UNSPECIFIED 12/24/2017 HONG SIMPSON MD Ot E03.9 HYPOTHYROIDISM, UNSPECIFIED 12/24/2017 HONG SIMPSON MD Ot E78.5 HYPERLIPIDEMIA, UNSPECIFIED 12/24/2017 CALVIN MAST, HONG Fraga Ot I10 ESSENTIAL (PRIMARY) HYPERTENSION 12/24/2017 CALVIN MAST, HONG Fraga Ot I31.1 CHRONIC CONSTRICTIVE PERICARDITIS 12/24/2017 CALVIN MAST, HONG Fraga Ot I47.1 SUPRAVENTRICULAR TACHYCARDIA 12/24/2017 CALVIN MAST, HONG Fraga Ot R07.9 CHEST PAIN, UNSPECIFIED 12/24/2017 RENETTA STALEY, STEPHANIE Abel Ot E05.00 THYROTOXICOSIS W DIFFUSE GOITER W/O THYR 12/24/2017 STEPHANIE BUSTOS Ot E78.1 PURE HYPERGLYCERIDEMIA 12/24/2017 STEPHANIE BUSTOS Ot I10 ESSENTIAL (PRIMARY) HYPERTENSION 12/24/2017 STEPHANIE BUSTOS Ot R07.9 CHEST PAIN, UNSPECIFIED 12/24/2017 ANTHONY MAST, JAKOB Ot K82.8 OTHER SPECIFIED DISEASES OF GALLBLADDER 02/11/2018 Bogdan, Katiana-Nikhil W 244.9 UNSPECIFIED HYPOTHYROIDISM 02/11/2018 Mcfadden, Katiana-Nikhil W E03.9 HYPOTHYROIDISM, UNSPECIFIED 02/11/2018 Mcfadden, Katiana-Nikhil W 244.9 UNSPECIFIED HYPOTHYROIDISM 02/11/2018 Mcfadden, Katiana-Nikhil W E03.9 HYPOTHYROIDISM, UNSPECIFIED 02/11/2018 Mcfadden, Katiana-Nikhil W 244.9 UNSPECIFIED HYPOTHYROIDISM 02/11/2018 Mcfadden, Katiana-Nikhil W E03.9 HYPOTHYROIDISM, UNSPECIFIED 02/13/2018 Barrett Peña 112.9 CANDIDIASIS OF UNSPECIFIED SITE 02/13/2018 Barrett Peña 244.9 UNSPECIFIED HYPOTHYROIDISM 02/13/2018 Barrett Peña 382.9 02/13/2018 Barrett Peña 780.79 OTHER MALAISE AND FATIGUE 02/13/2018 Barrett Peña 785.1 PALPITATIONS 02/13/2018 Barrett Peña 786.2 COUGH 02/13/2018 Barrett Peña B37.9 CANDIDIASIS, UNSPECIFIED 02/13/2018 Barrett Peña E03.9 HYPOTHYROIDISM, UNSPECIFIED 02/13/2018 Barrett Peña H66.93 OTITIS MEDIA, UNSPECIFIED, BILATERAL 02/13/2018 Barrett Peña W R00.2 PALPITATIONS 02/13/2018 Barrett Peña W R05 COUGH 02/13/2018 Barrett Peña W R53.83 OTHER FATIGUE 02/20/2018 Mfcadden, Katiana-Nikhil W 244.9 UNSPECIFIED HYPOTHYROIDISM 02/20/2018 Mcfadden, Katiana-Nikhil W E03.9 HYPOTHYROIDISM, UNSPECIFIED 02/20/2018 Mcfadden, Katiana-Nikhil W 244.9 UNSPECIFIED HYPOTHYROIDISM 02/20/2018 Mcfadden, Katiana-Nikhil W E03.9 HYPOTHYROIDISM, UNSPECIFIED 02/20/2018 Mcfadden, Katiana-Nikhil W 244.9 UNSPECIFIED HYPOTHYROIDISM 02/20/2018 Mcfadden, Katiana-Nikhil W E03.9 HYPOTHYROIDISM, UNSPECIFIED 03/08/2018 PRADEEP OLIVERA W 244.9 UNSPECIFIED HYPOTHYROIDISM 03/08/2018 PRADEEP OLIVERA A 511 PLEURISY 03/08/2018 PRADEEP OLIVERA W E03.9 HYPOTHYROIDISM, UNSPECIFIED 03/08/2018 PRADEEP OLIVERA A R09.1 PLEURISY 07/14/2018 W V72.62 LABORATORY EXAMINATION ORDERED PART OF A ROUTINE GENERAL MEDICAL EXAMINATION 07/14/2018 W Z00.00 ENCOUNTER FOR GENERAL ADULT MEDICAL EXAMINATION WITHOUT ABNORMAL FINDINGS 07/14/2018 W V72.62 LABORATORY EXAMINATION ORDERED PART OF A ROUTINE GENERAL MEDICAL EXAMINATION 07/14/2018 W Z00.00 ENCOUNTER FOR GENERAL ADULT MEDICAL EXAMINATION WITHOUT ABNORMAL FINDINGS 07/14/2018 W V72.62 LABORATORY EXAMINATION ORDERED PART OF A ROUTINE GENERAL MEDICAL EXAMINATION 07/14/2018 W Z00.00 ENCOUNTER FOR GENERAL ADULT MEDICAL EXAMINATION WITHOUT ABNORMAL FINDINGS 07/18/2018 A 112.0 CANDIDIASIS OF MOUTH 07/18/2018 W 465.8 ACUTE UPPER RESPIRATORY INFECTIONS OF OTHER MULTIPLE SITES 07/18/2018 A B37.0 CANDIDAL STOMATITIS 07/18/2018 W J06.9 ACUTE UPPER RESPIRATORY INFECTION, UNSPECIFIED 07/21/2018 TIEN MICHAEL Ot 244.9 HYPOTHYROIDISM NOS 07/21/2018 TIEN MICHAEL Ot 789.01 ABDOMINAL PAIN, RIGHT UPPER QUADRANT 07/21/2018 BRANDEE ADAIR Ot 575.8 DIS OF GALLBLADDER NEC 07/21/2018 ZAFUSARAH JON MD Ot 840.9 SPRAIN SHOULDER/ARM NOS 07/21/2018 SARAH WATTS MD Ot E000.8 OTHER EXTERNAL CAUSE STATUS 07/21/2018 SARAH WATTS MD Ot E928.9 ACCIDENT NOS 07/21/2018 SARAH WATTS MD Ot V72.63 PRE-PROCEDURAL LABORATORY EXAMINATION 07/21/2018 SARAH WATTS MD Ot V72.84 EXAM PRE-OPERATIVE NOS 07/21/2018 SARAH WATTS MD Ot V74.8 SCREEN-BACTERIAL DIS NEC 07/21/2018 SHYANNE STALEY, TIEN Fernandez Ot 721.3 LUMBOSACRAL SPONDYLOSIS 07/21/2018 SHYANNE STALEY, TIEN M Ot V15.88 HISTORY OF FALL 07/21/2018 TIEN MICHAEL Ot V58.69 OTH MED,LT,CURRENT USE 07/21/2018 TIEN MICHAEL Ot 244.9 HYPOTHYROIDISM NOS 07/21/2018 EFFIE MAST, HILARY Pickens Ot N39.0 URINARY TRACT INFECTION, SITE NOT SPECIF 07/21/2018 HILARY CHOU MD Ot R10.2 PELVIC AND PERINEAL PAIN 07/21/2018 HONG SIMPSON MD Ot E03.9 HYPOTHYROIDISM, UNSPECIFIED 07/21/2018 HONG SIMPSON MD Ot E78.5 HYPERLIPIDEMIA, UNSPECIFIED 07/21/2018 HONG SIMPSON MD Ot I10 ESSENTIAL (PRIMARY) HYPERTENSION 07/21/2018 HONG SIMPSON MD Ot I31.3 PERICARDIAL EFFUSION (NONINFLAMMATORY) 07/21/2018 HONG SIMPSON MD Ot I47.1 SUPRAVENTRICULAR TACHYCARDIA 07/21/2018 HONG SIMPSON MD Ot R07.9 CHEST PAIN, UNSPECIFIED 07/21/2018 HONG SIMPSON MD Ot E03.9 HYPOTHYROIDISM, UNSPECIFIED 07/21/2018 HONG SIMPSON MD Ot E78.5 HYPERLIPIDEMIA, UNSPECIFIED 07/21/2018 HONG SIMPSON MD Ot I10 ESSENTIAL (PRIMARY) HYPERTENSION 07/21/2018 HONG SIMPSON MD Ot I31.1 CHRONIC CONSTRICTIVE PERICARDITIS 07/21/2018 HONG SIMPSON MD Ot I47.1 SUPRAVENTRICULAR TACHYCARDIA 07/21/2018 HONG SIMPSON MD Ot R07.9 CHEST PAIN, UNSPECIFIED 07/21/2018 STEPHANIE BUSTOS Ot E05.00 THYROTOXICOSIS W DIFFUSE GOITER W/O THYR 07/21/2018 STEPHANIE BUSTOS Ot E78.1 PURE HYPERGLYCERIDEMIA 07/21/2018 STEPHANIE BUSTOS Ot I10 ESSENTIAL (PRIMARY) HYPERTENSION 07/21/2018 STEPHANIE BUSTOS Ot R07.9 CHEST PAIN, UNSPECIFIED 07/21/2018 JAKOB CRUZ MD Ot K82.8 OTHER SPECIFIED DISEASES OF GALLBLADDER 07/22/2018 MICHAEL CORRALES DO Ot N92.0 EXCESSIVE AND FREQUENT MENSTRUATION WITH 07/22/2018 MICHAEL CORRALES DO Ot 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 Procedures Code Description Performed By Performed On 72.79 VACUUM EXTRACT DEL NEC 03/19/2007 75.69 REPAIR OB LACERATION NEC 03/19/2007 43795 TSH 09/30/2008 73.6 EPISIOTOMY 12/28/2011 17453 ROUTINE VENIPUNCTURE 07/31/2012 90924 CMP 07/31/2012 1205128 GFR CALC (RESULT ONLY) 07/31/2012 55056 T4 FREE 08/01/2012 40381 T3 TOTAL 08/01/2012 97347 TSH 08/01/2012 GABBI BENÍTEZ 08/01/2012 77840 THERAPUTIC INJ SQ/IM 08/20/2012 10967 THERAPUTIC INJ SQ/IM 08/20/2012 J1055 DEPO-PROVERA INJ 150 MG 08/20/2012 J1055 DEPO-PROVERA INJ 150 MG 08/20/2012 91542 URINE TEST (IN- HOUSE) 08/20/2012 94601 URINE TEST (IN- HOUSE) 08/20/2012 17959 ROUTINE VENIPUNCTURE 09/03/2012 49330 TSH 09/04/2012 OtSarah Ornelas 09/11/2012 90522 ROUTINE VENIPUNCTURE 11/02/2012 19122 CMP 11/02/2012 5978441 GFR CALC (RESULT ONLY) 11/02/2012 67844 TSH 11/02/2012 20402 UA W/ CULTURE IF INDICATED 11/11/2012 64029 ROUTINE VENIPUNCTURE 11/20/2012 74650 CBC 11/20/2012 52539 ESR/SED RATE 11/20/2012 94062 CMP 11/20/2012 4072297 GFR CALC (RESULT ONLY) 11/20/2012 79023 CRP 11/20/2012 19125 FERRITIN 11/20/2012 37013 CPK 11/20/2012 91959 IRON SERUM 11/20/2012 97509 IRON BNDNG CAP 11/20/2012 IRGROUP IRON GROUP (Iron,TIBC, Ferritin) 11/26/2012 44911 ROUTINE VENIPUNCTURE 12/08/2012 07822 URINE TEST (IN- HOUSE) 12/08/2012 14653 THERAPUTIC INJ SQ/IM 12/08/2012 J1050 DEPO PROVERA 12/08/2012 80486 CPK 12/08/2012 97108 LDH 12/08/2012 ANAANA KRYSTYNA ANALYZER (SCREEN) 12/09/2012 20395 CATA MT SPOT FEVER 12/09/2012 16543 LYME EIA W/WEST BLOT 12/11/2012 GENERAL S Ananda Mo 12/15/2012 10134 ROUTINE VENIPUNCTURE 04/28/2013 NEUROLOGY LOBO CARLTON 04/28/2013 78487 CMP 04/29/2013 1344334 GFR CALC (RESULT ONLY) 04/29/2013 02267 TSH 04/29/2013 ORTHOPEDGABBI LIU 05/03/2013 31523 ROUTINE VENIPUNCTURE 08/06/2013 32563 CMP 08/06/2013 82191 TSH 08/06/2013 45575 HIDA SCAN 08/19/2013 03862 INFLUENZA A & B (IN-HOUSE) 08/19/2013 28728 US GALLBLADDER ULTRASOUND 08/30/2013 33927 ROUTINE VENIPUNCTURE 11/05/2013 31180 CMP 11/05/2013 59766 IGF-1 11/05/2013 87496 TSH 11/05/2013 ORTHOPEDI SARAH WATTS 11/08/2013 39921 PSYCH DIAGNOSTIC EVALUATION 12/13/2013 29922 PSYTX PT&/FAMILY 45 MINUTES 12/14/2013 42803 XRAY FOOT RIGHT COMP MIN 3 VIEWS 01/19/2014 53372 GC/CHLAM PROBE (STATE) 01/31/2014 99215 UA LONG DIP 01/31/2014 24449 TEST, URINE (IN- HOUSE) 01/31/2014 81635 TRICHOMONAS (IN-HOUSE) 01/31/2014 59280 CULTURE UROGENITAL 02/02/2014 PODIATRY SAUL TOIN 02/07/2014 S0280 HEALTH PROMOTION 04/28/2014 S0280 HEALTH PROMOTION 04/28/2014 S0280 HEALTH PROMOTION 05/17/2014 S0281 CARE COORDINATION 05/17/2014 72201 INJ TENDON SHEATH/LIGAMENT 05/27/2014 76780 IMPLANON INSERTION 06/07/2014 J7307 ETONOGESTREL IMPLANT SYSTEM 06/07/2014 S0280 COMPREHENSIVE CARE MANAGEMENT 06/07/2014 S0281 CARE COORDINATION 06/07/2014 30544 TEST, URINE (IN- HOUSE) 06/07/2014 S0281 CARE COORDINATION 06/10/2014 88483 ROUTINE VENIPUNCTURE 06/21/2014 5425616 GFR CALC (RESULT ONLY) 06/21/2014 95626 CMP 06/21/2014 97343 TSH 06/21/2014 01678 MRI SPINE (LUMBAR) W/O CONTRAST 08/01/2014 S0281 CARE COORDINATION 08/03/2014 L3040 FT ARCH SUPRT PREMOLD LONGIT 08/26/2014 S0280 HEALTH PROMOTION 09/01/2014 S0281 CARE COORDINATION 09/01/2014 S0280 COMPREHENSIVE CARE MANAGEMENT 09/01/2014 S0281 CARE COORDINATION 09/01/2014 S0280 HEALTH PROMOTION 09/26/2014 S0280 HEALTH PROMOTION 09/26/2014 27664 US THYROID ULTRASOUND 11/24/2014 61070 ROUTINE VENIPUNCTURE 12/09/2014 2181680 GFR CALC (RESULT ONLY) 12/09/2014 42799 CMP 12/09/2014 49612 TSH 12/09/2014 Results Test Result Range Complete blood count (CBC) with automated white blood cell (WBC) differential - 05/08/16 13:40 Blood leukocytes automated count (number/volume) 6.0 10*3/uL 4.3-11.0 Blood erythrocytes automated count (number/volume) 4.57 10*6/uL 4.35-5.85 Venous blood hemoglobin measurement (mass/volume) 14.7 g/dL 11.5-16.0 Blood hematocrit (volume fraction) 43 % 35-52 Automated erythrocyte mean corpuscular volume 93 [foz_us] 80-99 Automated erythrocyte mean corpuscular hemoglobin (mass per erythrocyte) 32 pg 25-34 Automated erythrocyte mean corpuscular hemoglobin concentration measurement ( mass/volume) 34 g/dL 32-36 Automated erythrocyte distribution width ratio 13.4 % 10.0-14.5 Automated blood platelet count (count/volume) 180 10*3/uL 130-400 Automated blood platelet mean volume measurement 10.7 [foz_us] 7.4-10.4 Automated blood neutrophils/100 leukocytes 57 % 42-75 Automated blood lymphocytes/100 leukocytes 36 % 12-44 Blood monocytes/100 leukocytes 5 % 0-12 Automated blood eosinophils/100 leukocytes 1 % 0-10 Automated blood basophils/100 leukocytes 1 % 0-10 Blood neutrophils automated count (number/volume) 3.4 10*3 1.8-7.8 Blood lymphocytes automated count (number/volume) 2.1 10*3 1.0-4.0 Blood monocytes automated count (number/volume) 0.3 10*3 0.0-1.0 Automated eosinophil count 0.1 10*3/uL 0.0-0.3 Automated blood basophil count (count/volume) 0.0 10*3/uL 0.0-0.1 PT panel in platelet poor plasma by coagulation assay - 05/08/16 13:40 Prothrombin time (PT) in platelet poor plasma by coagulation assay 13.4 s 12.2-14.7 INR in platelet poor plasma or blood by coagulation assay 1.1 0.8-1.4 Activated partial thromboplastin time (aPTT) in platelet poor plasma bycoagulation assay - 05/08/16 13:40 Activated partial thromboplastin time (aPTT) in platelet poor plasma bycoagulation assay 31 s 24-35 Fibrin D-dimer FEU measurement in platelet poor plasma (mass/volume) - 13:40 Fibrin D-dimer FEU measurement in platelet poor plasma (mass/volume) < ug/mL 0.00-0.49 Comprehensive metabolic panel - 05/08/16 13:40 Serum or plasma sodium measurement (moles/volume) 139 mmol/L 135-145 Serum or plasma potassium measurement (moles/volume) 3.6 mmol/L 3.6-5.0 Serum or plasma chloride measurement (moles/volume) 108 mmol/L 98-107 Carbon dioxide 23 mmol/L 21-32 Serum or plasma anion gap determination (moles/volume) 8 mmol/L 5-14 Serum or plasma urea nitrogen measurement (mass/volume) 14 mg/dL 7-18 Serum or plasma creatinine measurement (mass/volume) 0.95 mg/dL 0.60-1.30 Serum or plasma urea nitrogen/creatinine mass ratio 15 NRG Serum or plasma creatinine measurement with calculation of estimated glomerular filtration rate > NRG Serum or plasma glucose measurement (mass/volume) 139 mg/dL 70-105 Serum or plasma calcium measurement (mass/volume) 9.2 mg/dL 8.5-10.1 Serum or plasma total bilirubin measurement (mass/volume) 0.5 mg/dL 0.1-1.0 Serum or plasma alkaline phosphatase measurement (enzymatic activity/volume) 69 U/L 40-136 Serum or plasma aspartate aminotransferase measurement (enzymatic activity/ volume) 27 U/L 5-34 Serum or plasma alanine aminotransferase measurement (enzymatic activity/volume ) 31 U/L 0-55 Serum or plasma protein measurement (mass/volume) 7.4 g/dL 6.4-8.2 Serum or plasma albumin measurement (mass/volume) 4.5 g/dL 3.2-4.5 Magnesium - 05/08/16 13:40 Magnesium 2.2 mg/dL 1.8-2.4 Serum or plasma troponin i.cardiac measurement (mass/volume) - 05/08/16 13:40 Serum or plasma troponin i.cardiac measurement (mass/volume) < ng/ mL <0.30 Myoglobin, serum - 05/08/16 13:40 Myoglobin, serum 67.7 ng/mL 10.0-92.0 Urine beta human chorionic gonadotropin (hCG) measurement - 05/22/16 11:30 Urine beta human chorionic gonadotropin (hCG) measurement NEGATIVE NEGATIVE Automated blood complete blood count (hemogram) panel - 05/22/16 11:38 Blood leukocytes automated count (number/volume) 7.5 10*3/uL 4.3-11.0 Blood erythrocytes automated count (number/volume) 4.41 10*6/uL 4.35-5.85 Venous blood hemoglobin measurement (mass/volume) 14.2 g/dL 11.5-16.0 Blood hematocrit (volume fraction) 42 % 35-52 Automated erythrocyte mean corpuscular volume 94 [foz_us] 80-99 Automated erythrocyte mean corpuscular hemoglobin (mass per erythrocyte) 32 pg 25-34 Automated erythrocyte mean corpuscular hemoglobin concentration measurement ( mass/volume) 34 g/dL 32-36 Automated erythrocyte distribution width ratio 13.4 % 10.0-14.5 Automated blood platelet count (count/volume) 209 10*3/uL 130-400 Automated blood platelet mean volume measurement 10.6 [foz_us] 7.4-10.4 PT panel in platelet poor plasma by coagulation assay - 05/22/16 11:38 Prothrombin time (PT) in platelet poor plasma by coagulation assay 12.9 s 12.2-14.7 INR in platelet poor plasma or blood by coagulation assay 1.0 0.8-1.4 Activated partial thromboplastin time (aPTT) in platelet poor plasma bycoagulation assay - 05/22/16 11:38 Activated partial thromboplastin time (aPTT) in platelet poor plasma bycoagulation assay 32 s 24-35 Complete urinalysis with reflex to culture - 05/22/16 11:38 Urine color determination YELLOW NRG Urine clarity determination CLEAR NRG Urine pH measurement by test strip 6.5 5-9 Specific gravity of urine by test strip 1.015 1.016- 1.022 Urine protein assay by test strip, semi-quantitative 1+ NEGATIVE Urine glucose detection by automated test strip NEGATIVE NEGATIVE Erythrocytes detection in urine sediment by light microscopy NEGATIVE NEGATIVE Urine ketones detection by automated test strip NEGATIVE NEGATIVE Urine nitrite detection by test strip NEGATIVE NEGATIVE Urine total bilirubin detection by test strip NEGATIVE NEGATIVE Urine urobilinogen measurement by automated test strip (mass/volume) 1 mg/dL NORMAL Urine leukocyte esterase detection by dipstick 1+ NEGATIVE Automated urine sediment erythrocyte count by microscopy (number/high power field) NONE NRG Automated urine sediment leukocyte count by microscopy (number/high power field ) RARE NRG Bacteria detection in urine sediment by light microscopy FEW NRG Squamous epithelial cells detection in urine sediment by light microscopy 25-50 NRG Crystals detection in urine sediment by light microscopy NONE NRG Casts detection in urine sediment by light microscopy NONE NRG Mucus detection in urine sediment by light microscopy NEGATIVE NRG Complete urinalysis with reflex to culture NO NRG Comprehensive metabolic panel - 05/22/16 11:38 Serum or plasma sodium measurement (moles/volume) 138 mmol/L 135-145 Serum or plasma potassium measurement (moles/volume) 3.8 mmol/L 3.6-5.0 Serum or plasma chloride measurement (moles/volume) 109 mmol/L 98-107 Carbon dioxide 19 mmol/L 21-32 Serum or plasma anion gap determination (moles/volume) 10 mmol/L 5-14 Serum or plasma urea nitrogen measurement (mass/volume) 11 mg/dL 7-18 Serum or plasma creatinine measurement (mass/volume) 0.84 mg/dL 0.60-1.30 Serum or plasma urea nitrogen/creatinine mass ratio 13 NRG Serum or plasma creatinine measurement with calculation of estimated glomerular filtration rate > NRG Serum or plasma glucose measurement (mass/volume) 82 mg/dL 70-105 Serum or plasma calcium measurement (mass/volume) 9.1 mg/dL 8.5-10.1 Serum or plasma total bilirubin measurement (mass/volume) 0.5 mg/dL 0.1-1.0 Serum or plasma alkaline phosphatase measurement (enzymatic activity/volume) 65 U/L 40-136 Serum or plasma aspartate aminotransferase measurement (enzymatic activity/ volume) 30 U/L 5-34 Serum or plasma alanine aminotransferase measurement (enzymatic activity/volume ) 36 U/L 0-55 Serum or plasma protein measurement (mass/volume) 7.1 g/dL 6.4-8.2 Serum or plasma albumin measurement (mass/volume) 4.5 g/dL 3.2-4.5 Lipid 1996 panel - 05/22/16 11:38 Serum or plasma triglyceride measurement (mass/volume) 179 mg/dL <150 Serum or plasma cholesterol measurement (mass/volume) 204 mg/dL < 200 Serum or plasma cholesterol in HDL measurement (mass/volume) 33 mg/ dL 40-60 Cholesterol in LDL [mass/volume] in serum or plasma by direct assay 148 mg/dL 1-129 Serum or plasma cholesterol in VLDL measurement (mass/volume) 36 mg/ dL 5-40 Methicillin resistant Staphylococcus aureus (MRSA) screening culture - 11:38 Methicillin resistant Staphylococcus aureus (MRSA) screening culture NEG NRG BMP - 07/12/16 09:40 Anion Gap 12 6-14 BUN 13 mg/dL 5-25 Calcium 9.5 mg/dL 8.3-10.4 Chloride 107 mmol/L 95-114 CO2 24 mEq/L 22-33 Creat 1.01 mg/dL 0.50-1.50 eGFR 64 mL/min/1.73m2 >59 Glucose 75 mg/dL 70-110 Osmo 286 280-295 Potassium 3.9 mmol/L 3.5-5.3 Sodium 139 mmol/L 134-148 MRSA Screen - 07/12/16 09:40 FINAL CULTURE RESULTS MRSA Negative Nasal Culture MEDIA PLATED Setup at 10:36 on 07/12/2016 Urine Culture - 07/12/16 09:40 PRELIM CULTURE RESULTS No Growth 24 hours FINAL CULTURE RESULTS 10,000-20,000 Gram Positive Mixed [id number] Skin Contaminant No Further Workup done MEDIA PLATED Setup at 10:36 on 07/12/2016 CULTURE SOURCE Void Complete blood count (CBC) with automated white blood cell (WBC) differential - 08/04/16 11:32 Blood leukocytes automated count (number/volume) 5.9 10*3/uL 4.3-11.0 Blood erythrocytes automated count (number/volume) 4.52 10*6/uL 4.35-5.85 Venous blood hemoglobin measurement (mass/volume) 14.6 g/dL 11.5-16.0 Blood hematocrit (volume fraction) 43 % 35-52 Automated erythrocyte mean corpuscular volume 95 [foz_us] 80-99 Automated erythrocyte mean corpuscular hemoglobin (mass per erythrocyte) 32 pg 25-34 Automated erythrocyte mean corpuscular hemoglobin concentration measurement ( mass/volume) 34 g/dL 32-36 Automated erythrocyte distribution width ratio 13.5 % 10.0-14.5 Automated blood platelet count (count/volume) 216 10*3/uL 130-400 Automated blood platelet mean volume measurement 10.5 [foz_us] 7.4-10.4 Automated blood neutrophils/100 leukocytes 54 % 42-75 Automated blood lymphocytes/100 leukocytes 35 % 12-44 Blood monocytes/100 leukocytes 7 % 0-12 Automated blood eosinophils/100 leukocytes 3 % 0-10 Automated blood basophils/100 leukocytes 1 % 0-10 Blood neutrophils automated count (number/volume) 3.2 10*3 1.8-7.8 Blood lymphocytes automated count (number/volume) 2.1 10*3 1.0-4.0 Blood monocytes automated count (number/volume) 0.4 10*3 0.0-1.0 Automated eosinophil count 0.2 10*3/uL 0.0-0.3 Automated blood basophil count (count/volume) 0.1 10*3/uL 0.0-0.1 Comprehensive metabolic panel - 08/04/16 11:32 Serum or plasma sodium measurement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 [id number] 07/12/2016 09:35:00 07/12/2016 23:59:00 DIS Outpatient LILA ESQUIVEL [id number] 07/18/2018 10:51:00 Document Registration [id number] 07/14/2018 11:09:00 Document Registration [id number] 07/15/2016 07:16:08 Document Registration [id number] 02/13/2018 14:33:00 Document Registration [id number] 11/19/2017 08:40:00 Document Registration [id number] 06/02/2017 09:58:00 Document Registration [id number] 05/30/2015 08:37:48 ACT Document Registration [id number] 01/10/2017 09:10:00 Document Registration [id number] 07/16/2018 11:20:00 Document Registration
--- NOTE | 2018-07-27 11:52 | ED Abdominal Pain ---
General Stated Complaint: PELVIC AND ABDOMINAL PAIN Source of Information: Patient Exam Limitations: No Limitations History of Present Illness Date Seen by Provider: Jul 27, 2018 Time Seen by Provider: 11:49 Initial Comments To ER with reports of left lower quadrant abdominal pain that she describes as a pressure and feels like she is in labor and something needs to come out. This began on Friday last week, she saw Dr. Kunz and had an outpatient pelvic ultrasound done which failed to reveal any pathology, neither ovary was visualized. She denies fevers or chills. She denies any vaginal discharge. She just finished a course of Keflex for sinusitis and Diflucan for the thrush that the Keflex caused. Bowel movements have been normal. She does have a history of kidney stones but states this feels different. Timing/Duration: 1 Week Severity/Quality: Moderate Location: Q Radiation: No Radiation Activities at Onset: None Associated Symptoms: No Fever/Chills; Nausea/Vomiting (nausea no vomiting) Allergies and Home Medications Allergies Coded Allergies: Bacitracin Zinc (Unverified Allergy, Intermediate, HIVES, RESP PROBLMEMS, 07/09/17) Penicillins (Unverified Allergy, Intermediate, RASH,, 07/09/17) bacitracin (Unverified Allergy, Intermediate, HIVES, RESP PROBLMEMS, 07/09) gramicidin D (Unverified Allergy, Intermediate, HIVES, RESP PROBLMEMS, ) methylprednisolone sod succ (Unverified Allergy, Intermediate, RESP DIFFICULTY, 07/09/17) neomycin sulfate (Unverified Allergy, Intermediate, HIVES, RESP PROBLMEMS , 07/09/17) polymyxin B (Unverified Allergy, Intermediate, HIVES, RESP PROBLMEMS, ) polymyxin B sulfate (Unverified Allergy, Intermediate, HIVES, RESP PROBLMEMS, 07/09/17) Metronidazole HCl (Unverified Adverse Reaction, Mild, N/V, 07/09/17) metronidazole (Unverified Adverse Reaction, Mild, N/V, 07/09/17) Home Medications Levothyroxine Sodium 300 Mcg Tablet, 350 MCG PO DAILY, (Reported) Pantoprazole Sodium 40 Mg Tablet.dr, 40 MG PO DAILY, (Reported) Tramadol HCl 50 Mg Tablet, 50 MG PO Q4H PRN for pain Prescribed by: BOB CAM on 02/18/17 1802 Tramadol HCl 50 Mg Tablet, 50-100 MG PO Q4H Prescribed by: JAKOB CRUZ on 07/14/17 1619 Patient Home Medication List Home Medication List Reviewed: Yes Review of Systems Review of Systems Constitutional: see HPI; No chills, No fever EENTM: No Symptoms Reported Respiratory: No Symptoms Reported Cardiovascular: No Symptoms Reported Gastrointestinal: See HPI, Abdominal Pain; Denies Constipated, Denies Diarrhea ; Nausea; Denies Vomiting Genitourinary: No Symptoms Reported; Denies Drainage, Denies Frequency, Denies Flank Pain, Denies Hematuria Musculoskeletal: no symptoms reported Skin: no symptoms reported Psychiatric/Neurological: No Symptoms Reported Endocrine: No Symptoms Reported Hematologic/Lymphatic: No Symptoms Reported Past Zlddapb-Uvsdrz-Ocldmh Hx Patient Social History Type Used: Cigarettes Recent Foreign Travel: No Contact w/Someone Who Travel: No Recent Hopitalizations: No Immunizations Up To Date Tetanus Booster (TDap): More than 5yrs Date of Pneumonia Vaccine: December 28, 2012 Date of Influenza Vaccine: Apr 18, 2011 Seasonal Allergies Seasonal Allergies: Yes Past Medical History Surgeries: Yes (ovarian cyst) Orthopedic, 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 Respiratory: Yes Asthma Currently Using CPAP: No Currently Using BIPAP: No Cardiac: No Chronic Edema/Swelling, Rheumatic Fever Neurological: Yes (PT STATES SHE ALWAYS HAS NUMBNESS AND TINGLING ALL OVER HER BODY OFF AND ON) Headaches /Migraines, Neuropathy 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 Disorders: No Female 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 Disorders: Denies 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 Sexually Transmitted Disease: No ( ) HIV/AIDS: No Gastrointestinal: Yes Gastroesophageal Reflux, Chronic Diarrhea, Gall Bladder Disease Musculoskeletal: Yes (CHRONIC PAIN, ULNAR NERVE SURG L ARM,L ROTATOR CUFF, BILAT KNEE ARTHROSCOPY) Rheumatoid Arthritis, Chronic Back Pain Endocrine: Yes (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) Hypothyroidsim Loss of Vision: Bilateral Hearing Impairment: Denies Cancer: No Psychosocial: Yes Sleep Difficulties, Anxiety, Depression Integumentary: No Blood Disorders: No Adverse Reaction/Blood Tranf: No Family Medical History Asthma son CANC 19 MOTHER (CANCER OF GALLBLADDER AND UTERUS) Diabetes mellitus G8 SISTER FH: cancer Hypertension 19 FATHER Psychosocial problem G8 SISTER (ANXIETY) Thyroid disease 19 MOTHER (HYPERTHYROID) No Pertinent Family Hx Physical Exam Vital Signs Capillary Refill : Height/Weight/BMI Height: 5'8.00" Weight: 268lbs. 0.0oz. 121.678792kc; 40.8 BMI Method:Stated General Appearance: WD/WN, no apparent distress, obese HEENT: PERRL/EOMI, normal ENT inspection Respiratory: no respiratory distress, no accessory muscle use Cardiovascular: regular rate, rhythm, no murmur Gastrointestinal: normal bowel sounds, soft, tenderness (LLQ) Extremities: normal range of motion, non-tender Neurologic/Psychiatric: alert, normal mood/affect, oriented x 3 Skin: normal color, warm/dry Progress/Results/Core Measures Results/Orders Lab Results Laboratory Tests Test 07/27/18 11:50 07/27/18 12:59 Range/Units White Blood Count 6.8 4.3-11.0 10^3/uL Red Blood Count 4.47 4.35-5.85 10^6/uL Hemoglobin 14.4 11.5-16.0 G/DL Hematocrit 42 35-52 % Mean Corpuscular Volume 94 80-99 FL Mean Corpuscular Hemoglobin 32 25-34 PG Mean Corpuscular Hemoglobin Concent 34 32-36 G/DL Red Cell Distribution Width 13.6 10.0-14.5 % Platelet Count 222 130-400 10^3/uL Mean Platelet Volume 10.4 7.4-10.4 FL Neutrophils (%) (Auto) 62 42-75 % Lymphocytes (%) (Auto) 25 12-44 % Monocytes (%) (Auto) 11 0-12 % Eosinophils (%) (Auto) 2 0-10 % Basophils (%) (Auto) 1 0-10 % Neutrophils # (Auto) 4.2 1.8-7.8 X 10^3 Lymphocytes # (Auto) 1.7 1.0-4.0 X 10^3 Monocytes # (Auto) 0.7 0.0-1.0 X 10^3 Eosinophils # (Auto) 0.2 0.0-0.3 10^3/uL Basophils # (Auto) 0.0 0.0-0.1 10^3/uL Sodium Level 139 135-145 MMOL/L Potassium Level 4.2 3.6-5.0 MMOL/L Chloride Level 107 98-107 MMOL/L Carbon Dioxide Level 21 21-32 MMOL/L Anion Gap 11 5-14 MMOL/L Blood Urea Nitrogen 17 7-18 MG/DL Creatinine 0.85 0.60-1.30 MG/DL Estimat Glomerular Filtration Rate > 60 BUN/Creatinine Ratio 20 Glucose Level 105 70-105 MG/DL Calcium Level 9.7 8.5-10.1 MG/DL Corrected Calcium 9.3 8.5-10.1 MG/DL Total Bilirubin 0.4 0.1-1.0 MG/DL Aspartate Amino Transf (AST/SGOT) 43 H 5-34 U/L Alanine Aminotransferase (ALT/SGPT) 59 H 0-55 U/L Alkaline Phosphatase 80 40-136 U/L Total Protein 7.6 6.4-8.2 GM/DL Albumin 4.5 3.2-4.5 GM/DL Serum Test, Qualitative NEGATIVE NEGATIVE Urine Color YELLOW Urine Clarity CLEAR Urine pH 7 5-9 Urine Specific [place] 1.010 L 1.016-1.022 Urine Protein NEGATIVE NEGATIVE Urine Glucose (UA) NEGATIVE NEGATIVE Urine Ketones NEGATIVE NEGATIVE Urine Nitrite NEGATIVE NEGATIVE Urine Bilirubin NEGATIVE NEGATIVE Urine Urobilinogen NORMAL NORMAL MG/DL Urine Leukocyte Esterase NEGATIVE NEGATIVE Urine RBC (Auto) 1+ H NEGATIVE Urine RBC NONE /HPF Urine WBC NONE /HPF Urine Squamous Epithelial Cells RARE /HPF Urine Crystals NONE /LPF Urine Bacteria NEGATIVE /HPF Urine Casts NONE /LPF Urine Mucus NEGATIVE /LPF Urine Culture Indicated NO My Orders Orders - PHIL MARK APRN Cbc With Automated Diff (07/27/18 11:41) Comprehensive Metabolic Panel (07/27/18 11:41) Hcg,Qualitative Serum (07/27/18 11:41) Ua Culture If Indicated (07/27/18 11:41) Iv Heplock-Insert (Order) (07/27/18 11:41) Ct Abd/Pelvis Wo(Kidney Stone) (07/27/18 11:41) Ketorolac Injection (Toradol Injection) (07/27/18 12:00) Prochlorperazine Injection (Compazine In (07/27/18 12:00) Diphenhydramine Injection (Benadryl Inje (07/27/18 12:00) Medications Given in ED Current Medications Medications Dose Ordered Sig/Narinder Route Start Time Stop Time Status Last Admin Dose Admin Diphenhydramine HCl 25 mg ONCE ONCE IVP 07/27/18 12:00 12/10/18 12:01 DC 07/27/18 12:12 25 MG Ketorolac Tromethamine 30 mg ONCE ONCE IVP 07/27/18 12:00 07/27/18 12:01 DC 07/27/18 12:13 30 MG Prochlorperazine Edisylate 5 mg ONCE ONCE IV 07/27/18 12:00 07/27/18 12:01 DC 07/27/18 12:10 5 MG Diagnostic Imaging Diagonstic Imaging: CT Comments NAME: ANUJA CHILEL [facility] REC#: [id number] PT STATUS: REG ER : 1985 PHYSICIAN: PHIL MARK NEON ELECTRICIAN ADMIT DATE: 07/27/18/ER Draft Date of Exam:07/27/18 CT ABD/PELVIS WO(KIDNEY STONE) Indication: Left-sided flank pain. CT of the abdomen and pelvis without IV contrast. There is comparison to 12/29/2015. The visualized portions of the lung bases are clear. There were no pleural fluid collections. There is no free intraperitoneal air. The liver shows no focal lesion. Gallbladder is surgically absent. The spleen, pancreas, and adrenals appear normal. Kidneys bilaterally show no radiopaque calculi or hydronephrosis. There are no stones visualized along the course of the ureters on either side. There is no retroperitoneal mass or adenopathy. There is no ascites or abnormal fluid collection. Visualized bowel loops appear unremarkable. There is no adnexal mass or free fluid. Impression: No acute abnormalities visualized in the abdomen or pelvis. The gallbladder is surgically absent. Dictated on workstation # [id number] Dict: 07/27/18 1236 Trans: 07/27/18 1244 [facility] [id number] Interpreted by: TRICIA SANTOS MD Electronically signed by: Departure Communication (Admissions) Sleeping in bed at this time. Discussed with her the normal labs. Suggested pelvic exam for swabs and she states "I don't really want to go disturbing things down there". She states that she will follow-up with Dr. Kunz and have Dr. Kunz do the pelvic exam if she feels its appropriate Impression Primary Impression: Abdominal pain, acute, left lower quadrant Disposition: 01 HOME, SELF-CARE Condition: Stable Departure-Patient Inst. Decision time for Depature: 13:17 Referrals: YANETH VENTURA MD (PCP/Family) Primary Care Physician Patient Instructions: Acute Abdomen (Belly Pain), Adult (DC) Add. Discharge Instructions: 1. Tylenol and Motrin for pain 2. Follow-up with your doctor next week 3. Copy Copies To 1: YNAETH VENTURA MD, PETER J APRN Jul 27, 2018 11:52
[2018-07-27 11:56] LABS: BASOPHILS % (AUTO) 1 % (0-10); EOSINOPHILS # (AUTO) 0.2 10^3/uL (0.0-0.3); EOSINOPHILS % (AUTO) 2 % (0-10); HEMATOCRIT 42 % (35-52); HEMOGLOBIN 14.4 G/DL (11.5-16.0); LYMPHOCYTES # (AUTO) 1.7 X 10^3 (1.0-4.0); LYMPHOCYTES % (AUTO) 25 % (12-44); MEAN CORPUSCULAR HEMOGLOBIN 32 PG (25-34); MEAN CORPUSCULAR HGB CONC 34 G/DL (32-36); MEAN CORPUSCULAR VOLUME 94 FL (80-99); MEAN PLATELET VOLUME 10.4 FL (7.4-10.4); MONOCYTES # (AUTO) 0.7 X 10^3 (0.0-1.0); MONOCYTES % (AUTO) 11 % (0-12); NEUTROPHILS # (AUTO) 4.2 X 10^3 (1.8-7.8); NEUTROPHILS % (AUTO) 62 % (42-75); PLATELET COUNT 222 10^3/uL (130-400); RED BLOOD COUNT 4.47 10^6/uL (4.35-5.85); RED CELL DISTRIBUTION WIDTH 13.6 % (10.0-14.5); WHITE BLOOD COUNT 6.8 10^3/uL (4.3-11.0)
[2018-07-27] MEDS ORDERED: diphenhydrAMINE 50 MG/ML INJ (BENADRYL) IVP ONE (12:00)
[2018-07-27] MEDS ORDERED: PROCHLORPERAZINE 10 MG/2ML INJ (COMPAZINE) IV ONE (12:00)
[2018-07-27] MEDS ORDERED: KETOROLAC 30 MG/ML VIAL IVP ONE (12:00)
[2018-07-27 12:16] LABS: ALANINE AMINOTRANSFERASE 59 U/L (0-55); ALBUMIN 4.5 GM/DL (3.2-4.5); ALKALINE PHOSPHATASE 80 U/L (40-136); BILIRUBIN,TOTAL 0.4 MG/DL (0.1-1.0); BUN/CREATININE RATIO 20; CALCIUM 9.7 MG/DL (8.5-10.1); CARBON DIOXIDE 21 MMOL/L (21-32); CHLORIDE 107 MMOL/L (98-107); CREATININE SERUM 0.85 MG/DL (0.60-1.30); GFR ESTIMATED > 60; GLUCOSE 105 MG/DL (70-105); POTASSIUM 4.2 MMOL/L (3.6-5.0); SODIUM 139 MMOL/L (135-145); TOTAL PROTEIN 7.6 GM/DL (6.4-8.2)
--- NOTE | 2018-07-27 12:45 | Diagnostic Imaging Report ---
Indication: Left-sided flank pain. CT of the abdomen and pelvis without IV contrast. There is comparison to 12/29/2015. The visualized portions of the lung bases are clear. There were no pleural fluid collections. There is no free intraperitoneal air. The liver shows no focal lesion. Gallbladder is surgically absent. The spleen, pancreas, and adrenals appear normal. Kidneys bilaterally show no radiopaque calculi or hydronephrosis. There are no stones visualized along the course of the ureters on either side. There is no retroperitoneal mass or adenopathy. There is no ascites or abnormal fluid collection. Visualized bowel loops appear unremarkable. There is no adnexal mass or free fluid. Impression: No acute abnormalities visualized in the abdomen or pelvis. The gallbladder is surgically absent. Dictated by: Dictated on workstation # [id number]
[2018-07-27 13:08] LABS: BILIRUBIN,URINE NEGATIVE (NEGATIVE); CLARITY,URINE CLEAR; COLOR,URINE YELLOW; GLUCOSE, URINE (UA) NEGATIVE (NEGATIVE); KETONES,URINE NEGATIVE (NEGATIVE); LEUKOCYTE ESTERASE ,URINE NEGATIVE (NEGATIVE); NITRITE,URINE NEGATIVE (NEGATIVE); PH,URINE 7 (5-9); PROTEIN,URINE NEGATIVE (NEGATIVE); UROBILINOGEN,URINE NORMAL (NORMAL)
[2018-07-27 13:14] LABS: BACTERIA,URINE NEGATIVE /HPF; SQUAMOUS EPITHELIAL CELL,UR RARE /HPF
[2018-07-27 13:30] VITALS: BP 179/107
== END 2018-07-27 13:30 | disposition home or self-care (01) ==
LOC: EDUNIT# 11:09 → ER 11:11
DX: R10.32 Left lower quadrant pain (principal); J45.909 Unspecified asthma, uncomplicated; K21.9 Gastro-esophageal reflux disease without esophagitis; M06.9 Rheumatoid arthritis, unspecified; E03.9 Hypothyroidism, unspecified; F41.9 Anxiety disorder, unspecified; F32.9 Major depressive disorder, single episode, unspecified; G43.909 Migraine, unspecified, not intractable, without status migrainosus; Z98.51 Tubal ligation status; Z87.19 Personal history of other diseases of the digestive system; Z80.0 Family history of malignant neoplasm of digestive organs; Z82.49 Family history of ischemic heart disease and other diseases of the circulatory system; Z87.448 Personal history of other diseases of urinary system; Z87.442 Personal history of urinary calculi; Z88.0 Allergy status to penicillin; Z88.2 Allergy status to sulfonamides; Z88.8 Allergy status to other drugs, medicaments and biological substances; Z88.1 Allergy status to other antibiotic agents
CPT/HCPCS: 36415; 74176; 80053; 81000; 84703; 85025

== ENCOUNTER → 2018-07-30 | Outpatient (CLI) | payer MEDICAID ==
--- NOTE | 2018-07-30 13:24 | Diagnostic Imaging Report ---
CT CYSTOGRAM TECHNIQUE: Unenhanced CT imaging was initially performed. This was followed by retrograde administration of contrast via Rincon catheter into the urinary bladder with repeat contiguous axial imaging. Postvoid imaging was then performed after catheter removal. INDICATION: Urinary incontinence. COMPARISON: CT abdomen and pelvis of 07/27/2018. FINDINGS: Precontrast imaging shows urinary bladder partially decompressed with Rincon catheter in place. After the administration of contrast via the Rincon catheter, the urinary bladder is well distended. There is no contrast extravasation into the vagina or uterus to suggest fistula. The uterus and ovaries have a normal appearance. No free pelvic fluid. Visualized aspects of the bowel are normal. No pelvic or inguinal lymphadenopathy. Small fat-containing umbilical hernia. No inguinal or femoral hernia. IMPRESSION: No abnormal fistulous communication of the urinary bladder with the other pelvic organs. Dictated by: Dictated on workstation # [id number]
== END ==
LOC: RAD 08:47
PROVIDERS: ATTEND Obstetrics & Gynecology
DX: N39.45 Continuous leakage (principal); R39.81 Functional urinary incontinence
CPT/HCPCS: 72192

== ENCOUNTER → 2018-07-31 | Outpatient (CLI) | payer MEDICAID ==
[~2018-07-31] MED LIST changes: +CATHETER FLUSH 10 ML SYR IV PRN; +IOHEXOL 300 MG/ML 100 ML (OMNIPAQUE 300) VIAL IV ONE; +LAMO100T69 PO; +LEVO75TA6 PO; +LIOT25TA3 PO; +METO-333 PO; +NAPR-1071 PO; +ZOLP10TA PO
--- NOTE | 2018-07-31 12:15 | Diagnostic Imaging Report ---
INDICATION: Ureteral fistula. FINDINGS: There are prompt bilateral nephrograms. Renal cortex is smooth and symmetric. There is no hydronephrosis. Both ureters are normal in course and caliber. There is no extravasation. There is no evidence of fistula formation. Bladder fills and empties in a normal fashion. IMPRESSION: Normal excretory urogram. Specifically, the ureters are intact and unremarkable. Dictated by: Dictated on workstation # [id number]
== END ==
LOC: RAD 09:09
PROVIDERS: ATTEND Obstetrics & Gynecology
DX: N28.89 Other specified disorders of kidney and ureter (principal)
CPT/HCPCS: 74410

== ENCOUNTER 2018-08-04 08:49 | Outpatient (CLI) | payer MEDICAID ==
[~2018-08-04] VITALS: Ht 172.7 cm; Wt 119.4 kg
[~2018-08-04 08:49] MED LIST changes: -CATHETER FLUSH 10 ML SYR IV PRN; -IOHEXOL 300 MG/ML 100 ML (OMNIPAQUE 300) VIAL IV ONE; -LAMO100T69 PO; -LEVO75TA6 PO; -LIOT25TA3 PO; -METO-333 PO; -NAPR-1071 PO; -ZOLP10TA PO
[2018-08-04] MEDS ORDERED: LAMO100T69 PO (09:02)
[2018-08-04] MEDS ORDERED: LIOT25TA3 PO (09:02)
[2018-08-04] MEDS ORDERED: NAPR-1071 PO (09:02)
[2018-08-04] MEDS ORDERED: METO-333 PO (09:02)
[2018-08-04] MEDS ORDERED: ZOLP10TA PO (09:02)
[2018-08-04] MEDS ORDERED: LEVO75TA6 PO (09:02)
[2018-08-04 09:07] VITALS: BP 130/77
[2018-08-06] MEDS ORDERED: NAPR-1071 PO (14:42)
[2018-08-06] MEDS ORDERED: DOCU100C37 PO (14:42)
[2018-08-06] MEDS ORDERED: SIME80TA16 PO (14:42)
[2018-08-06] MEDS ORDERED: HYDR-34 PO (14:42)
[2018-08-06] MEDS ORDERED: OXB5TCR PO (15:11)
== END 2018-08-04 09:34 | disposition home or self-care (01) ==
LOC: PREOP 08:49
PROVIDERS: ATTEND Obstetrics & Gynecology
DX: Z01.818 Encounter for other preprocedural examination (principal); Z11.2 Encounter for screening for other bacterial diseases; N80.0 Endometriosis of uterus; N39.3 Stress incontinence (female) (male)
CPT/HCPCS: 87081

== ENCOUNTER 2018-08-06 06:00 | Day surgery (SDC) | payer MEDICAID ==
[~2018-08-06] VITALS: Ht 172.7 cm; Wt 119.4 kg
[~2018-08-06 06:00] MED LIST changes: +LAMO100T69 PO; +LEVO75TA6 PO; +LIOT25TA3 PO; +METO-333 PO; +NAPR-1071 PO; +ZOLP10TA PO
[2018-08-06] MEDS ORDERED: LACTATED RINGERS 1,000 ML IV PRN (06:25)
[2018-08-06] MEDS ORDERED: ceFAZolin INJECTION 1,000 MG in NS (IVPB) 50 ML IV ONE (06:30)
[2018-08-06 06:40] VITALS: BP 134/98
[2018-08-06] MEDS ORDERED: LIDOCAINE PF 2% 5 ML (XYLOCAINE) VIAL ONE (06:59)
[2018-08-06] MEDS ORDERED: ONDANSETRON 4 MG/2 ML (SDV) Z0FRAN ONE ×2 (06:59→10:41)
[2018-08-06] MEDS ORDERED: DEXAMETHASONE 10 MG/ML (DECADRON) 1 ML VIAL ONE (06:59)
[2018-08-06] MEDS ORDERED: proPOfol 200 MG/20 ML (DIPRIVAN) VIAL IV ONE (06:59)
[2018-08-06] MEDS ORDERED: SEVOFLURANE (ULTANE) 15 ML INHAL SOLN ONE ×12 (06:59→09:01)
[2018-08-06] MEDS ORDERED: ROCURONIUM 10 MG/ML 5 ML SYRINGE IV ONE ×2 (06:59→09:01)
[2018-08-06] MEDS ORDERED: fentaNYL INJECTION 100 MCG/2 ML AMP ONE ×2 (07:00→09:26)
[2018-08-06] MEDS ORDERED: MIDAZOLAM 2 MG/2 ML (VERSED) VIAL ONE (07:01)
[2018-08-06] MEDS ORDERED: NS (IVPB) 100 ML ONE (07:04)
[2018-08-06] MEDS ORDERED: VASOPRESSIN INJECTION 20 UNIT/ML VIAL ONE (07:04)
[2018-08-06] MEDS ORDERED: BUP/EPI 0.5% 1:200,000 (SENSORCAINE) 30 ML VIAL ONE (07:04)
--- NOTE | 2018-08-06 07:09 | Progress Note-Pre Operative ---
Pre-Operative Progress Note H&P Reviewed The H&P was reviewed, patient examined and no changes noted. Date Seen by Provider: Aug 06, 2018 Time Seen by Provider: 07:05 Date H&P Reviewed: Aug 06, 2018 Time H&P Reviewed: 07:00 Pre-Operative Diagnosis: menorrhagia, pelvic pain, incontinence MICHAEL CORRALES DO Aug 06, 2018 07:09
[2018-08-06] MEDS ORDERED: LACTATED RINGERS 1,000 ML IV ONE (09:02)
[2018-08-06] MEDS ORDERED: INDIGO CARMINE 8 MG/ML 5 ML AMP ONE (09:31)
[2018-08-06] MEDS ORDERED: ESTRADIOL VAGINAL CREAM 42.5 GM (ESTRACE) VG ONE (09:55)
[2018-08-06] MEDS ORDERED: KETOROLAC 30 MG/ML VIAL ONE (10:19)
[2018-08-06] MEDS ORDERED: GLYCOPYRROLATE 0.2 MG/ML (ROBINUL) 2 ML VIAL ONE (10:19)
[2018-08-06] MEDS ORDERED: NEOSTIGMINE 1 MG/ML 5 ML SYRINGE ONE (10:19)
--- NOTE | 2018-08-06 10:22 | Operative Report ---
Operative Report Date of Procedure/Surgery Aug 06, 2018 Surgeon (s) MICHAEL CORRALES DO Exterior Work Helper (s): LA Wheeler nec to retract important neurovascular structures Post-Operative Diagnosis Chronic pelvic (LLQ ) pain, Stress incontinence, possible ISD, menorrhagia, suspected adenomyosis Procedure Performed RaTH, bilateral salpingectomy, left oophorectomy, Solyx sling Description of Procedure Anesthesia Type: General Estimated blood loss (mL): 50 Specimen(s) collected/removed Uterus, bilateral tubes, left ovary Description of the Procedure After informed consent was obtained, patient was taken into the operating room where general anesthetic was found to be adequate. She was prepped and draped in the usual sterile fashion in the dorsal lithotomy position. A Rincon catheter was placed. A speculum was placed in the vagina. The cervix was visualized and was prolapsed to the introitus. The anterior lip was grasped with a sharp toothed tenaculum. The uterus was sounded and depth was approximately 10 centimeters. I placed the Tana device. And then set the Tana to 10 cm and a 3.5 cm collar was advanced over the cervix. I inserted the Tana without difficulty, inflating the balloon and securing it around the fornix of the cervix. The collar was then secured with sutures at 12 o'clock. Attention was then turned to the patient's abdomen. A supraumbilical incision was made about 8 mm. A Veress needle was inserted and I had difficulty confirming intraabdominal placement, but was eventually able to confirm with a drop in pressure and the saline drop test. I then insufflated the abdomen to a maximum of 15 mmHg with warmed CO2 gas. I then placed an 8 mm trocar and then the Da [place] camera and intraperitoneal placement was confirmed. I then determined the procedure could be continued robotically. The first robotic port was placed about 15 cm lateral to the right and left of the umbilical placement and slightly inferior. These are both 8 mm trocars. These were placed under direct visualization of the laparoscope. 0.25% Marcaine was injected prior to placement of all trocars. When all placements were confirmed, the patient was placed in steep Trendelenburg allowing adequate visualization and the robot was brought in for docking. The docking was accomplished without difficulty. A survey of the pelvis confirmed the above mentioned findings. I was able to visualize the round ligaments bilaterally and grasped them and cauterized with bipolar cautery and then cut with my bharti. At this point, I then did bilateral salpingectomy. I cut along the mesosalpinx with the monopolar bharti and then dissected up to the cornu bilaterally. I then moved to the uteroovarian ligaments. I sealed the vessel and transected bilaterally using the bipolar cautery and then cut with the monopolar bharti. She did have a cyst on the left ovary and this is where she has most of the pain. I decided to remove the ovary at this time. The cyst appears benign but atypical, like a hemorrhagic endometrioma, with adhesions. At this point I clasped the infundibulopelvic ligament and cauterized with the bipolar cautery. This was sent for pathology. I then moved my dissection to the posterior leaves of the broad ligament. I dissected the posterior leaves of the broad ligament off the uterine arteries skeletonizing them bilaterally. I then took a second clamp with the bipolar cautery and with the bharti, transected the vessels away from the lateral aspect to the cervical stroma. I dissected the anterior peritoneum off the lower uterine segment. I continually pushed the bladder back and I took excessively great care and I was eventually able to dissect the vesicouterine peritoneum off the lower uterine segment. I then dissected in a V fashion towards the midline between the uterosacral ligaments. This allowed me to skeletonize the uterine vessels bilaterally. The balloon on the TANA was insufflated. This allowed me to see the TANA circumferentially. I then performed a colpotomy anteriorly and then amputate with cervix away from the vaginal fornix. I then continued the colpotomy circumferentially. Once this was performed I noted that the cervix was very long and I performed a supracervical hysterectomy. Thus I replaced a shorter ( 6 cm tana) and then reprepped to perform a trachelectomy, incising along the tana cup. Thus removing the cervix and the uterus from the abdomen. The day care assistant removed the uterus through the vagina. A sponge was left in the vagina to maintain pneumoperitoneum. I then began closure of the vaginal cuff. The uterus was left in the vagina to maintain pneumoperitoneum. I closed the apices of the vaginal cuff with 2-0 Vicryl V lock sutures with a colposuspension through the uterosacral ligaments. This suspended the apices of the vaginal cuff. I extended this to the midline from both sides and overlapped the V lock sutures in the midline. Excellent closure is noted and hemostasis is achieved. Both ureters were seen. All the needles were removed from the patient's abdomen. Patient was now repositioned for the vaginal portion of the procedure. The anterior vaginal epithelium was grasped in the midline with an Allis clamp. The anterior vaginal epithelium was injected with dilute vasopressin. A 1 cm incision was made in the suburethral space with a scalpel about 1.5 cm from the urethral meatus. I dissected bilaterally to the obturator membranes and then inserted the Solyx bilaterally and then tightened under the midurethra. I did a cystoscopy which was negative. There was bilateral urethral efflux of urine. I then kept 300 ml in the bladder and did a Cred. There was minimal leakage. The sling laid gently under the urethra and was not too tight. There was no intravesicular pathology. The incision was closed with 4-0 Monocryl in a running fashion. Rincon was reinserted. Despite minimal leakage with Cred, there was leakage around the Rincon catheter after insertion , even though the bladder was empty. This suggests possible intrinsic sphincter deficiency or bladder spasm and may explain her leakage and concern for fistula though nothing has even been found on exam. Patient was awakened and taken to the recovery room in stable condition. Following the case, instrument counts were correct. The patient was repositioned in the supine position and awakened from general anesthesia without difficulty. She was taken to recovery in stable condition. She will be observed overnight. Findings of the Procedure boggy enlarged uterus, rotation of the urethra, patent ureters, no evidence of fistula (despite multiple exams and modalities of exam, nothing was reproduced) , adhesions left tube to left ovary and pelvic side wall, uterovesical adhesions, long cervix, rectocele (not symptomatic so not repaired) Allergies and Home Medications Allergies Coded Allergies: Bacitracin Zinc (Unverified Allergy, Intermediate, HIVES, RESP PROBLMEMS, 07/09/17) Penicillins (Unverified Allergy, Intermediate, RASH,, 07/09/17) bacitracin (Unverified Allergy, Intermediate, HIVES, RESP PROBLMEMS, 07/09) gramicidin D (Unverified Allergy, Intermediate, HIVES, RESP PROBLMEMS, ) methylprednisolone sod succ (Unverified Allergy, Intermediate, RESP DIFFICULTY, 07/09/17) neomycin sulfate (Unverified Allergy, Intermediate, HIVES, RESP PROBLMEMS , 07/09/17) polymyxin B (Unverified Allergy, Intermediate, HIVES, RESP PROBLMEMS, ) polymyxin B sulfate (Unverified Allergy, Intermediate, HIVES, RESP PROBLMEMS, 07/09/17) Metronidazole HCl (Unverified Adverse Reaction, Mild, N/V, 07/09/17) metronidazole (Unverified Adverse Reaction, Mild, N/V, 07/09/17) Home Medications Docusate Sodium 100 Mg Capsule, 100 MG PO BID PRN for CONSTIPATION-1ST LINE Prescribed by: MICHAEL CORRALES on 08/06/18 144 Hydrocodone Bit/Acetaminophen 1 Ea Tablet, 2 EA PO Q6H PRN for PAIN-MODERATE TO SEVERE no greater than 3 grams acetominphen in 24 hours Prescribed by: MICHAEL CORRALES on 08/06/18 144 Lamotrigine 100 Mg Tablet, 100 MG PO BID, (Reported) Levothyroxine Sodium 300 Mcg Tablet, 300 MCG PO DAILY, (Reported) Levothyroxine Sodium 75 Mcg Tablet, 75 MCG PO DAILY, (Reported) Liothyronine Sodium 25 Mcg Tablet, 25 MCG PO DAILY, (Reported) Metoprolol Tartrate 25 Mg Tablet, 25 MG PO BID, (Reported) Naproxen 500 Mg Tablet, 500 MG PO PRN Prescribed by: MICHAEL CORRALES on 08/06/18 144 Oxybutynin Chloride 5 Mg Tab, 5 MG PO DAILY Prescribed by: MICHAEL CORRALES on 08/06/18 1511 Pantoprazole Sodium 40 Mg Tablet.dr, 40 MG PO DAILY, (Reported) Simethicone 80 Mg Tab.chew, 40 MG PO TID PRN for INDIGESTION Prescribed by: MICHAEL CORRALES on 08/06/18 144 Zolpidem Tartrate 10 Mg Tablet, 10 MG PO HS, (Reported) Patient Home Medication List Home Medication List Reviewed: MICHAEL Trotter DO Aug 06, 2018 10:22 am
[2018-08-06] MEDS ORDERED: LACTATED RINGERS 1,000 ML IV SCH (10:23)
[2018-08-06] MEDS ORDERED: KETOROLAC 30 MG/ML VIAL IV PRN (10:30)
[2018-08-06] MEDS ORDERED: SIMETHICONE 80 MG (MYLICON) CHEW PO PRN (10:30)
[2018-08-06] MEDS ORDERED: ANTACID SUSP 30 ML UDC (MYLANTA) PO PRN (10:30)
[2018-08-06] MEDS ORDERED: HYDROmorphone 2 MG/ML VIAL (DILAUDID) IV PRN (10:30)
[2018-08-06] MEDS ORDERED: DOCUSATE SODIUM 100 MG (COLACE) CAP PO PRN (10:30)
[2018-08-06] MEDS ORDERED: HYDROcodone/APAP 7.5 MG/325 MG (LORTAB, LORCET PLUS) TABLET PO PRN (10:30)
[2018-08-06] MEDS ORDERED: ONDANSETRON 4 MG/2 ML (SDV) Z0FRAN IV PRN (10:30)
[2018-08-06] MEDS ORDERED: ONDANSETRON 4 MG/2 ML (SDV) Z0FRAN IVP PRN (10:45)
[2018-08-06] MEDS ORDERED: morphine INJ 10 MG/ML 1ML (SYR OR VIAL) IVP ONE (10:45)
--- NOTE | 2018-08-06 11:30 | NUR ---
ANUJA CHILEL admitted to room 3305-1, with an admitting diagnosis of ROBOTIC HYSTERECTOMY, on 08/06/19 from RECOVERY ROOM via , accompanied by .ANUJA CHILEL introduced to surroundings, call light, bed controls, phone, TV, temperature control, lights, meal times, smoking policy, visitor policy, side rail policy, bathrooms and showers. Patient Rights given to patient in the handbook.ANUJA CHILEL verbalizes understanding that [facility] is not responsible for the loss or damage to any personal effects or valuables that are kept in the patients posession during their hospitalization. The following Patient Care Plans were discussed with the : Discharge Planning, ,, and . ANUJA CHILEL verbalizes understanding of Interdisciplinary Patient Education. Patient and/or family were informed about the Rapid Response Team and its purpose.
--- NOTE | 2018-08-06 11:30 | NUR ---
REPORT FROM CHAPARRO CARDONA RN.
[2018-08-06 11:45] VITALS: BP 129/72
--- NOTE | 2018-08-06 11:45 | NUR ---
INITIAL ASSESSMENT COMPLETED AT BEDSIDE, VSS, SEE INTERVENTIONS FOR DETAILED ASSESSMENTS, PLAN OF CARE EXPLAINED. PT DROWSY BUT RESPONDS TO VERBAL COMMANDS, PTS S/O AT SIDE, PT DENIES C/O AT THIS TIME, PLAN OF CARE EXPLAINED WILL MONITOR CLOSELY.
--- NOTE | 2018-08-06 12:15 | NUR ---
PT RESTING WITH EYES CLOSED, NO DISTRESS NOTED, PTS S/O AT SIDE, NO DISTRESS NOTED WILL MONITOR.
--- NOTE | 2018-08-06 13:25 | NUR ---
PT C/O FEELING LIKE SHE NEEDS TO VOID, ROBLES CATHETER REPOSITIONED AND DRAINED, EDUCATED PT ABOUT THAT FEELING BEING NORMAL WITH ROBLES CATHETER IN PLACE. DR CORRALES CALLED WHILE RN IN ROOM WITH PT, OK TO DC ROBLES NOW IF PTS OUTPUT ADEQUATE.
[2018-08-06] MEDS ORDERED: HYDROcodone/APAP 7.5 MG/325 MG (LORTAB, LORCET PLUS) TABLET PO ONE (13:26)
--- NOTE | 2018-08-06 13:45 | NUR ---
ROBLES CATHETER REMOVED, 1500ML NOTED, LORTAB 2 TABLETS GIVEN PO FOR PAIN, PT ASSISTED TO CHAIR, TOLERATED WELL, PERICARE COMPLETED AFTER CATHETER REMOVAL, PAD AND PANTIES ON, SCANT LOCHIA NOTED. WILL MONITOR CLOSELY.
[2018-08-06] MEDS ORDERED: DOCU100C37 PO (14:42)
[2018-08-06] MEDS ORDERED: SIME80TA16 PO (14:42)
[2018-08-06] MEDS ORDERED: NAPR-1071 PO (14:42)
[2018-08-06] MEDS ORDERED: HYDR-34 PO (14:42)
[2018-08-06] MEDS ORDERED: OXYBUTYNIN (DITROPAN) 5 MG TAB PO NR (14:45)
--- NOTE | 2018-08-06 15:00 | NUR ---
PT AMBULATED TO BR, VOIDED 150ML, PT REPORTS PAIN WITH URINATION, PT AMBULATED BACK TO BED, C/O NAUSEA AND GAS,
[2018-08-06] MEDS ORDERED: OXB5TCR PO (15:11)
--- NOTE | 2018-08-06 15:15 | NUR ---
DR CORRALES HERE, UPDATED HER ABOUT PTS PAIN WITH URINATION, NEW ORDER RECEIVED. ZOFRAN AND MYLICON GIVEN PER ORDERS.
--- NOTE | 2018-08-06 15:16 | Discharge Inst-Women's Service ---
Discharge Inst-Women's Serv Depart Medication/Instructions New, Converted or Re-Newed RX: RX on Chart Instructions no lifting over 25 lbs, nothing in the vagina for 12 weeks. no driving for 1 week. expect light bleeding discharge for up to 2 weeks. Leave dressings in place for 3 days then remove. Remove in the shower. No bathing, swimming, soaking for 12 weeks. Final Diagnosis menorrhagia chronic pelvic pain peritubal and ovarian adhesions Stress and urge incontinence Consults/Follow Up Additional Follow Up: Yes (1 week with Jessica Randall 12 weeks benjamin reynolds) Activity Activity: Activity as Tolerated Driving Instructions: No Driving for 1 Week NO SMOKING: NO SMOKING Nothing Inside Vagina: No Douching, No [place], No Tampons Diet Discharge Diet: No Restrictions Symptoms to Report to : Bleeding Excessive, Pain Increased, Constipation( Persistant), Fever Over 101 Degrees F, Vaginal Bleeding Increase, Cramps in Feet or Legs, Vaginal Discharge Foul For Any Problems or Questions: Contact Your Physician Skin/Wound Care Infection Signs and Symptoms: Increased Redness, Foul Odor of Wound, Increased Drainage, Skin Itchy or Has a Rash, Increased Swelling, Temperature Above 101 F Operative Area Clean and Dry: Keep Incision Clean/Dry, You May Remove Bandage ( see instructions) Stitches/Ivanna/Dermabond: Dermabond Bathing Instructions: MICHAEL Layne DO Aug 06, 2018 15:16
[2018-08-06 16:00] VITALS: BP 130/77
--- NOTE | 2018-08-06 16:15 | NUR ---
PT REPORTS NAUSEA IS MUCH BETTER, PRESCRIPTIONS GIVEN TO PTS S/O PER REQUEST. PT UP TO BR, VOIDED PT REPORTS PAIN WAS MUCH BETTER WITH VOID THIS TIME.
--- NOTE | 2018-08-06 16:55 | NUR ---
IV DC'D, DITROPAN GIVEN PO PER ORDER, D/C INSTRUCTIONS EXPLAINED TO PT, PT VERBALIZES UNDERSTANDING, SIGNED, NO QUESTIONS NOTED, WILL MONITOR.
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
[2018-08-07] MEDS ORDERED: IBUPROFEN 600 MG (MOTRIN) TAB PO PRN (03:15)
--- NOTE | 2018-08-07 10:00 | Anesthesia-General Post-Op ---
General Patient Condition Mental Status/LOC: Same as Preop Cardiovascular: Satisfactory Nausea/Vomiting: Absent Respiratory: Satisfactory Pain: Controlled Complications: Absent Post Op Complications Complications None Follow Up Care/Instructions Patient Instructions None needed. Anesthesia/Patient Condition Patient Condition Patient is doing well, no complaints, stable vital signs, no apparent adverse anesthesia problems. No complications reported per nursing. HASEEB BAER CRNA Aug 07, 2018 10:00
== END 2018-08-06 17:10 | disposition home or self-care (01) ==
LOC: SDC 06:00 → WS 13:21 → SDC 13:21
PROVIDERS: ATTEND Obstetrics & Gynecology
DX: N92.0 Excessive and frequent menstruation with regular cycle (principal); N39.45 Continuous leakage; N81.6 Rectocele; N73.6 Female pelvic peritoneal adhesions (postinfective); N72 Inflammatory disease of cervix uteri; N80.0 Endometriosis of uterus; N83.8 Other noninflammatory disorders of ovary, fallopian tube and broad ligament; N83.02 Follicular cyst of left ovary; N83.12 Corpus luteum cyst of left ovary; J45.909 Unspecified asthma, uncomplicated; F17.210 Nicotine dependence, cigarettes, uncomplicated; E03.9 Hypothyroidism, unspecified; K21.9 Gastro-esophageal reflux disease without esophagitis; E78.1 Pure hyperglyceridemia; E78.5 Hyperlipidemia, unspecified; I34.0 Nonrheumatic mitral (valve) insufficiency; E66.9 Obesity, unspecified; Z68.41 Body mass index [BMI] 40.0-44.9, adult; Z79.82 Long term (current) use of aspirin; Z79.899 Other long term (current) drug therapy
CPT/HCPCS: 36415; 84703; 86850; 86900; 86901; 88307; 94664

== ENCOUNTER 2018-11-11 07:55 | Emergency (ER) | payer MEDICAID ==
[~2018-11-11] VITALS: Ht 172.7 cm; Wt 117.9 kg
[~2018-11-11 07:55] MED LIST changes: +DOCU100C37 PO; +HYDR-34 PO; +METR-145 PO; -METR-197 PO; +OXB5TCR PO; +SIME80TA16 PO
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
[2018-11-11] MEDS ORDERED: KETOROLAC 30 MG/ML VIAL IVP ONE (08:15)
[2018-11-11 08:22] LABS: HEMOGLOBIN 14.4 G/DL (11.5-16.0); MEAN PLATELET VOLUME 10.5 FL (7.4-10.4); RED CELL DISTRIBUTION WIDTH 13.6 % (10.0-14.5)
[2018-11-11 08:37] LABS: ALANINE AMINOTRANSFERASE 43 U/L (0-55); ALBUMIN 4.5 GM/DL (3.2-4.5); ALKALINE PHOSPHATASE 84 U/L (40-136); BILIRUBIN,DIRECT 0.1 MG/DL (0.0-0.3); BILIRUBIN,INDIRECT 0.2 MG/DL; BILIRUBIN,TOTAL 0.3 MG/DL (0.1-1.0); BUN/CREATININE RATIO 18; CALCIUM 9.6 MG/DL (8.5-10.1); CARBON DIOXIDE 24 MMOL/L (21-32); CHLORIDE 105 MMOL/L (98-107); CREATININE SERUM 0.84 MG/DL (0.60-1.30); GFR ESTIMATED > 60; GLUCOSE 91 MG/DL (70-105); POTASSIUM 3.8 MMOL/L (3.6-5.0); SODIUM 138 MMOL/L (135-145); TOTAL PROTEIN 7.1 GM/DL (6.4-8.2)
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
--- NOTE | 2018-11-11 09:06 | NUR ---
BACK FROM X RAY TO BEDSIDE.
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
[2018-11-11] MEDS ORDERED: ORPHENADRINE 60 MG/2 ML (NORFLEX) AMP IV ONE (09:30)
[2018-11-11] MEDS ORDERED: HYDROcodone/APAP 5 MG/325 MG (LORTAB) TAB PO ONE (09:30)
[2018-11-11] MEDS ORDERED: ACETAMINOPHEN 500 MG TAB (TYLENOL) PO ONE (09:30)
--- NOTE | 2018-11-11 09:30 | NUR ---
PATIENT REFUSE MEDS WANTS TYLENOL AND NORFLEX
[2018-11-11] MEDS ORDERED: CYCL10TA9 PO (09:32)
[2018-11-11] MEDS ORDERED: CYCLOBENZAPRINE 10 MG (FLEXERIL) TAB PO SCH (09:45)
[2018-11-11 09:49] VITALS: BP 135/110
--- NOTE | 2018-11-11 09:49 | NUR ---
DR TOVAR AWARE OF DISCHARGE B/P AND OK WITH.
== END 2018-11-11 09:49 | disposition home or self-care (01) ==
LOC: ER 07:57
DX: S16.1XXA Strain of muscle, fascia and tendon at neck level, initial encounter (principal); S80.12XA Contusion of left lower leg, initial encounter; M25.511 Pain in right shoulder; M25.552 Pain in left hip; R51 Headache; J45.909 Unspecified asthma, uncomplicated; K21.9 Gastro-esophageal reflux disease without esophagitis; M06.9 Rheumatoid arthritis, unspecified; E03.9 Hypothyroidism, unspecified; F41.9 Anxiety disorder, unspecified; F32.9 Major depressive disorder, single episode, unspecified; F17.210 Nicotine dependence, cigarettes, uncomplicated; R40.2142 Coma scale, eyes open, spontaneous, at arrival to emergency department; R40.2252 Coma scale, best verbal response, oriented, at arrival to emergency department; R40.2362 Coma scale, best motor response, obeys commands, at arrival to emergency department; Z87.19 Personal history of other diseases of the digestive system; Z88.1 Allergy status to other antibiotic agents; Z88.0 Allergy status to penicillin; Z88.8 Allergy status to other drugs, medicaments and biological substances; Z88.2 Allergy status to sulfonamides; Z98.51 Tubal ligation status; Z80.8 Family history of malignant neoplasm of other organs or systems; V49.49XA Driver injured in collision with other motor vehicles in traffic accident, initial encounter
CPT/HCPCS: 36415; 70450; 71045; 72125; 72131; 73030; 80048; 80076; 80320; 84703; 85027

== ENCOUNTER 2019-03-19 12:30 | Outpatient (CLI) | payer BC, MEDICAID ==
[~2019-03-19] VITALS: Ht 172.7 cm; Wt 118.0 kg
[2019-03-19] MEDS ORDERED: TRAM50TA2 PO (12:45)
[2019-03-19] MEDS ORDERED: LEVO200T6 PO ×2 (12:45)
== END 2019-03-19 12:58 | disposition home or self-care (01) ==
LOC: PREOP 12:30
PROVIDERS: ATTEND Obstetrics & Gynecology
DX: Z01.818 Encounter for other preprocedural examination (principal)

== ENCOUNTER 2019-03-23 06:59 | Day surgery (SDC) | payer BC, MEDICAID ==
[~2019-03-23] VITALS: Ht 172.7 cm; Wt 118.0 kg
[2019-03-23] VITALS (12 sets, daily range): BP systolic 99–139; BP diastolic 73–94
[~2019-03-23 06:59] MED LIST changes: +LEVO200T6 PO; +LIOT25TA PO; -LIOT25TA3 PO
--- OUTSIDE RECORDS SUMMARY | 2019-03-23 07:02 | XMS REPORT | Clinical Summary ---
Author Author [facility] Organization [facility] Address Unknown Phone Unavailable Care Team Providers [employer] Name Role Phone Jaja Berman MD PCP Source Comments Some departments are not documenting in the electronic medical record. If you d o not see the information that you expected, contact Release of Information in [facility] Information Management department at [phone] for further assistan ce in locating additional records.[facility] Allergies Not on File Medications [...] Tdap) CERVICAL CANCER SCREENING 2016 INFLUENZA VACCINE 05/18/2019 Results Not on filefrom Last 3 Months
--- OUTSIDE RECORDS SUMMARY | 2019-03-23 07:03 | XMS REPORT ---
Author Author Migration, Doctor Organization [facility] Address Unknown Phone Unavailable Care Team Providers Care Insurance Administrative Assistant Name Role Phone Migration, Doctor Unavailable Unavailable PROBLEMS Type Condition ICD9-CM Code GOD18-YP Code Onset Dates Condition Status SNOMED Code Problem Other postablative hypothyroidism 244.1 Active 224892746 Problem Major depressive disorder, recurrent episode, severe, without mention of psychotic behavior 296.33 Active 14304775 ALLERGIES No Information ENCOUNTERS Encounter Location Date Diagnosis [place] [id number] [place] [address] Sep, Unspecified mood [affective] disorder [place] [id number] [place] [address] Aug, Unspecified mood [affective] disorder [place] [id number] [place] [address] Jul, Unspecified mood [affective] disorder [address] [place] [id number] [place] [address] Jun, Unspecified mood [affective] disorder [place] [id number] [place] [address] Mar, Affective disorder 296.90 [place] [id number] [place] [address] Mar, [place] [id number] [place] [address] Feb, Nexplanon removal V25.43 and Initiation of OCP (BCP) V25.01 [place] [id number] [place] [address] Feb, Episodic mood disorder 296.90 [place] [id number] [place] [address] [place] [address] Feb, [facility] [address], [place] [address] Feb, Routine gynecological examination V72.31 ; Pap test, as part of routine gynecological examination V76.2 ; Breast cancer screening V76.10 ; Nexplanon in place V45.52 and Rash 782.1 [facility] [address], [place] [address] Jan, Episodic mood disorder 296.90 [facility] [address], [place] [address] Jan, [facility] [address], [place] [address] December, Episodic mood disorder 296.90 [facility] [address], [place] [address] December, [facility] [address], [place] [address] December, [facility] [address], [place] [address] December, [facility] [address], [place] [address] Nov, [facility] [address], [place] [address] Nov, [facility] [address], [place] [address] Nov, [facility] [address], [place] [address] Oct, [facility] [address], [place] [address] Oct, [facility] [id number] [address] Oct, [facility] [id number] [place] [address] Oct, [facility] [place] [facility] [address] [id number] [place] [address] Oct, [facility] [place] [facility] [address] [id number] [place] [address] Oct, [facility] [place] [facility] [address] [id number] [place] [address] Sep, 2014 [facility] [place] [facility] [address] [id number] [place] [address] Sep, 2014 [facility] [place] [facility] [address] [id number] [place] [address] Sep, 2014 [facility] [place] [facility] [address] [id number] [place] [address] Sep, 2014 [facility] [place] [facility] [address] [id number] [place] [address] Sep, [facility] [place] [facility] [address] [id number] [place] [address] Sep, [facility] [place] [facility] [address] [id number] [place] [address] Aug, [facility] [place] [facility] [address] [id number] [place] [address] Aug, [facility] [place] [facility] [address] [id number] [place] [address] Aug, [facility] [place] [facility] [address] [id number] [place] [address] Aug, [facility] [place] [facility] [address] [id number] [place] [address] Aug, [facility] [place] [facility] [address] [id number] [place] [address] Aug, [facility] [place] [facility] [address] [id number] [place] [address] Aug, [facility] [place] [facility] [address] [id number] [place] [address] 14 Aug, 2014 [facility] [place] [facility] [address] [id number] [place] [address] Aug, [facility] [place] [facility] [address] [id number] [place] [address] Aug, [facility] [place] [facility] [address] [id number] [place] [address] Aug, [facility] [place] [facility] [address] [id number] [place] [address] Aug, [facility] [place] [facility] [address] [id number] [place] [address] Aug, [facility] [place] [facility] [address] [id number] [place] [address] Aug, [facility] [place] [facility] [address] [id number] [place] [address] Aug, [facility] [place] [facility] [address] [id number] [place] [address] Aug, [facility] [place] [facility] [address] [id number] [place] [address] Jul, [facility] [place] [facility] [address] [id number], [place] [address] 15 Jul, 2014 [facility] [place] [facility] [address] [id number], [place] [address] 15 Jul, 2014 [facility] [place] [facility] [address] [id number] [place] [address] Jul, [facility] [place] [facility] [address] [id number] [place] [address] Jul, [facility] [place] [facility] [address] [id number] [place] [address] Jul, [facility] [place] [facility] [address] [id number] [place] [address] 11 Jul, 2014 [facility] [place] [facility] [address] [id number] [place] [address] Jul, [facility] [place] [facility] [address] [id number] [place] [address] Jul, [facility] [place] [facility] [address] [id number] [place] [address] 05 Jul, 2014 [facility] [place] [facility] [address] [id number] [place] [address] 05 Jul, 2014 [facility] [place] [facility] [address] [id number] [place] [address] Jul, [facility] [place] [facility] [address] [id number] [place] [address] Jul, [facility] [place] [facility] [address] [id number] [place] [address] Jun, [facility] [place] [facility] [address] [id number] [place] [address] Jun, [facility] [place] [facility] [address] [id number] [place] [address] Jun, [facility] [place] [facility] [address] [facility] [id number] [place] [address] Jun, [facility] [place] [facility] [address] [id number] [place] [address] Jun, [facility] [place] [facility] [address] [id number] [place] [address] Jun, [facility] [place] [facility] [address] [id number] [place] [address] Jun, [facility] [place] [facility] [address] [id number] [place] [address] Jun, [facility] [place] [facility] [address] [id number] [address] Jun, [facility] [place] [facility] [address] [id number] [place] [address] Jun, [facility] [place] [facility] [address] [id number] [place] [address] Jun, [facility] [place] [facility] [address] [id number] [place] [address] Jun, [facility] [place] [facility] [address] [id number] [place] [address] Jun, [facility] [place] [facility] [address] [id number] [place] [address] Jun, [facility] [place] [facility] [address] [id number] [place] [address] May, [facility] [place] [facility] [address] [id number] [place] [address] May, [facility] [place] [facility] [address] [id number] [place] [address] May, [facility] [place] [facility] [address] [id number] [place] [address] May, [facility] [place] [facility] [address] [id number] [place] [address] May, [facility] [place] [facility] [address] [id number] [place] [address] May, [facility] [place] [facility] [address] [id number] [place] [address] May, [facility] [place] [facility] [address] [id number] [place] [address] May, [facility] [place] [facility] [address] [id number] [place] [address] May, [facility] [place] [facility] [address] [id number] [place] [address] May, [facility] [place] [facility] [address] [id number] [place] [address] 30 Sep, 2013 [facility] [place] [facility] [address] [id number] [place] [address] 30 Sep, 2013 [facility] [place] [facility] [address] [id number] [place] [address] 19 Sep, 2013 [facility] [place] [facility] [address] [id number] [place] [address] 19 Sep, 2013 [facility] [place] [facility] [address] [id number] [place] [address] 18 Sep, 2013 [facility] [place] [facility] [address] [id number] [place] [address] 18 Sep, 2013 [facility] [place] [facility] [address] [id number] [place] [address] 18 Sep, 2013 [facility] [place] [facility] [address] [id number] [place] [address] 18 Sep, 2013 [facility] [place] [facility] [address] [id number] [place] [address] 16 Sep, 2013 [facility] [place] [facility] [address] [id number] [place] [address] 16 Sep, 2013 [facility] [place] [facility] [address] [id number] [place] [address] 08 Sep, 2013 [facility] [place] [facility] [address] [id number] [place] [address] 08 Sep, 2013 [facility] [place] [facility] [address] [id number] [place] [address] 08 Sep, 2013 [facility] [place] [facility] [address] [id number] [place] [address] 08 Sep, 2013 [facility] [place] [facility] [address] [id number] [place] [address] 04 Sep, 2013 [facility] [place] [facility] [address] [id number] [place] [address] 04 Sep, 2013 [facility] [place] [facility] [address] [id number] [place] [address] Mar, [facility] [place] [facility] [address] [id number] [place] [address] Mar, [facility] [place] [facility] [address] [id number] [place] [address] Mar, [facility] [place] [facility] [address] [id number] [place] [address] Jan, [facility] [place] [facility] [address] [id number] [place] [address] 23 Jan, 2014 [facility] [place] [facility] [address] [id number] [place] [address] Jan, [facility] [place] [facility] [address] [id number] [place] [address] 18 Jan, 2014 [facility] [place] [facility] [address] [id number] [place] [address] 16 Jan, 2014 [facility] [place] [facility] [address] [id number] [place] [address] 16 Jan, 2014 [facility] [place] [facility] [address] [id number] [place] [address] 16 Jan, 2014 [facility] [place] [facility] [address] [id number] [place] [address] 16 Jan, 2014 [facility] [place] [facility] [address] [id number] [place] [address] Jan, [facility] [place] [facility] [address] [id number] [place] [address] Jan, [facility] [place] [facility] [address] [id number] [place] [address] Jan, [facility] [place] [facility] [address] [id number] [place] [address] 11 Jan, 2014 [facility] [place] [facility] [address] [id number] [place] [address] Jan, [facility] [place] [facility] [address] [id number] [place] [address] Jan, [facility] [place] [facility] [address] [id number] [place] [address] Jan, [facility] [place] [facility] [address] [id number] [place] [address] Jan, [facility] [place] [facility] [address] [id number] [place] [address] December, [facility] [place] [facility] [address] [id number] [place] [address] December, [facility] [place] [facility] [address] [id number] [place] [address] December, [facility] [place] [facility] [address] [id number] [place] [address] December, [facility] [place] [facility] [address] [id number] [place] [address] December, [facility] [place] [facility] [address] [id number] [place] [address] Nov, [facility] [place] [facility] [address] [id number] [place] [address] Nov, [facility] [place] [facility] [address] [id number] [place] [address] Nov, [facility] [place] [facility] [address] [id number] [place] [address] Nov, [facility] [place] [facility] [address] [id number] [place] [address] Nov, [facility] [place] [facility] [address] [id number] [place] [address] Nov, [facility] [place] [facility] [address] [id number] [place] [address] Nov, [facility] [place] [facility] [address] [id number], [place] [address] 24 Nov, 2013 [facility] [place] [facility] [address] [id number] [place] [address] Nov, [facility] [place] [facility] [address] [id number] [place] [address] Nov, [facility] [place] [facility] [address] [facility] [id number] [place] [address] Oct, [facility] [place] [facility] [address] [id number] [place] [address] Oct, [facility] [place] [facility] [address] [id number] [place] [address] Oct, [facility] [place] [facility] [address] [id number] [place] [address] Oct, [facility] [place] [facility] [address] [facility] [id number] [place] [address] Oct, [facility] [place] [facility] [address] [id number] [place] [address] Oct, [facility] [place] [facility] [address] [id number] [place] [address] Oct, [facility] [place] [facility] [address] [facility] [id number] [place] [address] Oct, [facility] [place] [facility] [address] [id number] [place] [address] Oct, [facility] [place] [facility] [address] [id number] [place] [address] Sep, [facility] [place] [facility] [address] [id number] [place] [address] Sep, [facility] [place] [facility] [address] [id number] [place] [address] Sep, [facility] [place] [facility] [address] [facility] [id number] [place] [address] Sep, [facility] [place] [facility] [address] [id number] [place] [address] Sep, [facility] [place] [facility] [address] [id number] [place] [address] Sep, [facility] [place] [facility] [address] [id number] [place] [address] Sep, [facility] [place] [facility] [address] [id number] [place] [address] Aug, [facility] [place] [facility] [address] [id number] [place] [address] Aug, [facility] [place] [facility] [address] [id number] [place] [address] Aug, [facility] [place] [facility] [address] [id number] [place] [address] Aug, [facility] [place] [facility] [address] [id number] [place] [address] Aug, [facility] [place] [facility] [address] [id number] [place] [address] Aug, [facility] [place] [facility] [address] [id number] [place] [address] Aug, [facility] [place] [facility] [address] [id number] [place] [address] Aug, [facility] [place] [facility] [address] [id number], [place] [address] Jul, [facility] [place] [facility] [address] [id number] [place] [address] Jul, [facility] [place] [facility] [address] [id number] [place] [address] Jul, [facility] [place] [facility] [address] [id number], [place] [address] Jul, [facility] [place] [facility] [address] [id number], [place] [address] Jun, [facility] [place] [facility] [address] [id number] [place] [address] Jun, [facility] [place] [facility] [address] [id number] [place] [address] Jun, [facility] [place] [facility] [address] [id number] [place] [address] May, [facility] [place] [facility] [address] [id number] [place] [address] May, [facility] [place] [facility] [address] [id number] [place] [address] May, [facility] [place] [facility] [address] [id number] [place] [address] May, [facility] [place] [facility] [address] [id number] [place] [address] May, [facility] [place] [facility] [address] [id number] [place] [address] May, [facility] [place] [facility] [address] [facility] [id number] [place] [address] May, [facility] [place] [facility] [address] [facility] [id number] [place] [address] Apr, [facility] [place] [facility] [address] [id number], [place] [address] 17 Apr, 2013 [facility] [place] [facility] [address] [id number], [place] [address] 12 Apr, 2013 [facility] [place] [facility] [address] [id number] [place] [address] 11 Apr, 2013 [facility] [place] [facility] [address] [facility] [id number] [place] [address] 05 Apr, 2013 [facility] [place] [facility] [address] [facility] [id number] [place] [address] Mar, [facility] [place] [facility] [address] [id number] [place] [address] Mar, [facility] [place] [facility] [address] [id number] [place] [address] Mar, [facility] [place] [facility] [address] [id number] [place] [address] Mar, [facility] [place] [facility] [address] [id number] [place] [address] Feb, [facility] [place] [facility] [address] [id number] [place] [address] Feb, [facility] [place] [facility] [address] [id number] [place] [address] Feb, [facility] [place] [facility] [address] [id number] [place] [address] Feb, [facility] [place] [facility] [address] [id number] [place] [address] Feb, [facility] [place] [facility] [address] [id number] [place] [address] Feb, [facility] [place] [facility] [address] [id number] [place] [address] Feb, [facility] [place] [facility] [address] [id number] [place] [address] Feb, [facility] [place] [facility] [address] [id number] [place] [address] Jan, [facility] [place] [facility] [address] [id number] [place] [address] Jan, [facility] [place] [facility] [address] [id number] [place] [address] Jan, [facility] [place] [facility] [address] [id number] [place] [address] Jan, [facility] [place] [facility] [address] [id number] [place] [address] Jan, [facility] [address] [id number] [place] [address] Jan, [facility] [place] [facility] [address] [id number] [place] [address] Jan, [facility] [place] [facility] [address] [id number] [place] [address] December, [facility] [place] [facility] [address] [id number] [place] [address] December, [facility] [address] [id number] [place] [address] 30 Nov, 2012 [facility] [place] [facility] [address] [id number] [place] [address] Nov, [facility] [place] [facility] [address] [id number] [place] [address] Nov, [facility] [place] [facility] [address] [id number] [place] [address] Nov, [facility] [place] [facility] [address] [id number] [place] [address] 24 Nov, 2012 [facility] [place] [facility] [address] [id number] [place] [address] Nov, [facility] [place] [facility] [address] [id number] [place] [address] Nov, [facility] [place] [facility] [address] [id number], [place] [address] 15 Nov, 2012 [facility] [place] [facility] [address] [id number] [place] [address] 11 Nov, 2012 [facility] [place] [facility] [address] [id number] [place] [address] 10 Nov, 2012 [facility] [place] [facility] [address] [id number] [place] [address] 08 Nov, 2012 [facility] [place] [facility] [address] [id number] [place] [address] 05 Nov, 2012 [facility] [address] [id number] [place] [address] Nov, [facility] [place] [facility] [address] [id number] [place] [address] Nov, [facility] [address] [id number] [place] [address] Oct, [facility] [place] [facility] [address] [id number] [place] [address] Oct, [facility] [address] [id number] [place] [address] Oct, [facility] [address] [id number] [place] [address] Oct, [facility] [address] [id number] [place] [address] Oct, [facility] [address] [id number] [place] [address] Oct, [facility] [address] [id number] [place] [address] Oct, [facility] [address] [id number] [place] [address] Oct, [facility] [address] [id number] [place] [address] Oct, [facility] [place] [facility] [address] [id number] [place] [address] Sep, [facility] [place] [facility] [address] [id number] [place] [address] Aug, [facility] [place] [facility] [address] [id number] [place] [address] Aug, [facility] [place] [facility] [address] [id number] [place] [address] Aug, [facility] [place] [facility] [address] [id number] [place] [address] Aug, [facility] [place] [facility] [address] [id number] [place] [address] 31 Jul, 2012 [facility] [place] [facility] [address] [id number] [place] [address] 31 Jul, 2012 [facility] [place] [facility] [address] [id number] [place] [address] Jul, [facility] [address] [id number] [place] [address] 19 Jul, 2012 [facility] [place] [facility] [address] [id number] [place] [address] Jul, [facility] [address] [id number] [place] [address] 15 Jul, 2012 [facility] [place] [facility] [address] [id number] [place] [address] 15 Jul, 2012 [facility] [place] [facility] [address] [id number] [place] [address] 14 Jul, 2012 [facility] [place] [facility] [address] [id number] [place] [address] 14 Jul, 2012 [facility] [place] [facility] [address] [id number] [place] [address] May, [facility] [place] [facility] [address] [id number] [place] [address] 22 May, 2012 [facility] [place] [facility] [address] [id number] [place] [address] 16 May, 2012 [facility] [place] [facility] [address] [id number] [place] [address] 16 May, 2012 [facility] [place] [facility] [address] [id number] [place] [address] 12 May, 2012 [facility] [place] [facility] [address] [id number] [place] [address] May, [facility] [place] [facility] [address] [id number] [place] [address] 27 Apr, 2012 [facility] [place] [facility] [address] [id number] [place] [address] 27 Apr, 2012 [facility] [place] [facility] [address] [id number] [place] [address] 24 Apr, 2012 [facility] [place] [facility] [address] [id number] [place] [address] 18 Apr, 2012 [facility] [place] [facility] [address] [id number] [place] [address] 14 Apr, 2012 [facility] [place] [facility] [address] [id number] [place] [address] 12 Apr, 2012 [facility] [place] [facility] [address] [id number] [place] [address] Mar, [facility] [place] [facility] [address] [id number] [place] [address] Feb, [facility] [place] [facility] [address] [id number] [place] [address] Feb, [facility] [place] [facility] [address] [id number] [place] [address] Feb, [facility] [place] [facility] [address] [id number] [place] [address] Jan, [facility] [place] [facility] [address] [id number] [place] [address] December, [facility] [place] [facility] [address] [id number] [place] [address] December, [facility] [place] [facility] [address] [id number] [place] [address] December, [facility] [place] [facility] [address] [id number] [place] [address] December, [facility] [place] [facility] [address] [id number] [place] [address] December, [facility] [address] [id number] [place] [address] December, [facility] [address] [id number] [place] [address] Nov, [facility] [address] [id number] [place] [address] Nov, [facility] [address] [id number] [place] [address] 17 Nov, 2011 [facility] [address] [id number] [place] [address] Nov, [facility] [address] [id number] [place] [address] 16 Nov, 2011 [facility] [address] [id number] [place] [address] 13 Nov, 2011 [facility] [address] [id number] [place] [address] 12 Nov, 2011 [facility] [address] [id number] [place] [address] Nov, [facility] [address] [id number] [place] [address] 05 Nov, 2011 [facility] [address] [id number] [place] [address] 04 Nov, 2011 [facility] [address] [id number] [place] [address] 30 Oct, 2011 [facility] [place] [facility] [address] [id number] [place] [address] 29 Oct, 2011 [facility] [address] [id number] [place] [address] 28 Oct, 2011 [facility] [address] [id number] [place] [address] Oct, [facility] [place] [facility] [address] [id number] [place] [address] 26 Oct, 2011 [facility] [place] [facility] [address] [id number] [place] [address] 23 Oct, 2011 [facility] [place] [facility] [address] [id number] [place] [address] 21 Oct, 2011 [facility] [place] [facility] [address] [id number] [place] [address] 19 Oct, 2011 [facility] [place] [facility] [address] [id number] [place] [address] 08 Oct, 2011 [facility] [place] [facility] [address] [id number] [place] [address] 07 Oct, 2011 [facility] [place] [facility] [address] [id number] [place] [address] 06 Oct, 2011 [facility] [place] [facility] [address] [id number] [place] [address] 05 Oct, 2011 [facility] [place] [facility] [address] [id number] [place] [address] 16 Sep, 2011 [facility] [place] [facility] [address] [id number] [place] [address] 14 Sep, 2011 [facility] [place] [facility] [address] [id number] [place] [address] 12 Sep, 2011 [facility] [place] [facility] [address] [id number] [place] [address] 10 Sep, 2011 [facility] [place] [facility] [address] [id number] [place] [address] 06 Sep, 2011 [facility] [place] [facility] [address] [id number] [place] [address] 06 Sep, 2011 [facility] [place] [facility] [address] [facility] [id number] [place] [address] 06 Sep, 2011 [facility] [place] [facility] [address] [id number] [place] [address] 06 Sep, 2011 [facility] [address] [id number] [place] [address] Sep, [facility] [address] [id number] [place] [address] 30 Aug, 2011 [facility] [address] [id number] [place] [address] Aug, [facility] [address] [id number] [place] [address] Aug, [facility] [address] [id number] [place] [address] Aug, [facility] [address] [id number] [place] [address] Aug, [facility] [address] [id number] [place] [address] Aug, [facility] [address] [id number] [place] [address] Aug, [facility] [address] [id number] [place] [address] 24 Jul, 2011 [facility] [address] [id number] [place] [address] 16 Jul, 2011 [facility] [address] [id number] [place] [address] 16 Jul, 2011 [facility] [address] [id number] [place] [address] 14 Jul, 2011 [facility] [place] [facility] [address] [id number] [place] [address] 30 Jun, 2011 [facility] [address] [id number] [place] [address] Jun, [facility] [address] [id number] [place] [address] May, [facility] [address] [facility] [id number] [place] [address] Mar, [facility] [address] [facility] [id number] [address] Jan, [facility] [address] [facility] [id number] [place] [address] May, IMMUNIZATIONS No Known Immunizations SOCIAL HISTORY Never Assessed REASON FOR VISIT PLAN OF CARE VITAL SIGNS Blood pressure systolic 126 mmHg 2014-09-23 Blood pressure diastolic 74 mmHg 2014-09-23 MEDICATIONS Unknown Medications RESULTS No Results PROCEDURES No Known procedures INSTRUCTIONS MEDICATIONS ADMINISTERED No Known Medications MEDICAL (GENERAL) HISTORY Type Description Date Medical History hypertension Medical History asthma Medical History Hypothyroidism Medical History Arthritis Medical History MRSA Surgical History ENT surgery Surgical History carpal tunnel release (L); ulnar nerve release (L) 2012
--- OUTSIDE RECORDS SUMMARY | 2019-03-23 07:04 | XMS REPORT ---
Author Author Migration, Doctor Organization [facility] Address Unknown Phone Unavailable Care Team Providers Care Stable Attendant Name Role Phone Migration, Doctor Unavailable Unavailable PROBLEMS Type Condition ICD9-CM Code CMV32-KI Code Onset Dates Condition Status SNOMED Code Problem Other postablative hypothyroidism 244.1 Active 814232429 Problem Major depressive disorder, recurrent episode, severe, without mention of psychotic behavior 296.33 Active [id number] ALLERGIES No Information ENCOUNTERS Encounter Location Date Diagnosis [place] [id number] [place] [address] Sep, Unspecified mood [affective] disorder [place] [id number] [place] [address] Aug, Unspecified mood [affective] disorder [place] [id number] [place] [address] Jul, Unspecified mood [affective] disorder [address] [place] [id number] [place] [address] Jun, Unspecified mood [affective] disorder [place] [id number] [place] [address] Mar, Affective disorder 296.90 [place] [id number] [place] [address] Mar, [place] [id number] [place] [address] Feb, Nexplanon removal V25.43 and Initiation of OCP (BCP) V25.01 [place] [id number] [place] [address] Feb, Episodic mood disorder 296.90 [place] [id number] [place] [address] [place] [address] Feb, [facility] [id number] [address] Feb, Routine gynecological examination V72.31 ; Pap test, as part of routine gynecological examination V76.2 ; Breast cancer screening V76.10 ; Nexplanon in place V45.52 and Rash 782.1 [facility] [id number], [place] [address] Jan, Episodic mood disorder 296.90 [facility] [id number], [place] [address] Jan, [facility] [id number], [place] [address] December, Episodic mood disorder 296.90 [facility] [id number], [place] [address] December, [facility] [id number], [place] [address] December, [facility] [id number], [place] [address] December, [facility] [id number], [place] [address] Nov, [facility] [id number], [place] [address] Nov, [facility] [id number], [place] [address] Nov, [facility] [id number], [place] [address] Oct, [facility] [id number], [place] [address] Oct, [facility] [id number] [address] Oct, [facility] [id number] [place] [address] Oct, [facility] [place] [facility] [address] [id number] [place] [address] Oct, [facility] [place] [facility] [address] [id number] [place] [address] Oct, [facility] [place] [facility] [address] [id number] [place] [address] Sep, 2014 [facility] [place] [facility] [address] [id number] [place] [address] Sep, 2014 [facility] [place] [facility] [address] [id number] [place] [address] Sep, 2014 [facility] [place] [facility] [address] [id number] [place] [address] Sep, 2014 [facility] [place] [facility] [address] [id number] [place] [address] Sep, [facility] [place] [facility] [address] [id number] [place] [address] Sep, [facility] [place] [facility] [address] [id number] [place] [address] Aug, [facility] [place] [facility] [address] [id number] [place] [address] Aug, [facility] [place] [facility] [address] [id number] [place] [address] Aug, [facility] [place] [facility] [address] [id number] [place] [address] Aug, [facility] [place] [facility] [address] [id number] [place] [address] Aug, [facility] [place] [facility] [address] [id number] [place] [address] Aug, [facility] [place] [facility] [address] [id number] [place] [address] Aug, [facility] [place] [facility] [address] [id number] [place] [address] 14 Aug, 2014 [facility] [place] [facility] [address] [id number] [place] [address] Aug, [facility] [place] [facility] [address] [id number] [place] [address] Aug, [facility] [place] [facility] [address] [id number] [place] [address] Aug, [facility] [place] [facility] [address] [id number] [place] [address] Aug, [facility] [place] [facility] [address] [id number] [place] [address] Aug, [facility] [place] [facility] [address] [id number] [place] [address] Aug, [facility] [place] [facility] [address] [id number] [place] [address] Aug, [facility] [place] [facility] [address] [id number] [place] [address] Aug, [facility] [place] [facility] [address] [id number] [place] [address] Jul, [facility] [place] [facility] [address] [id number] [address] 15 Jul, 2014 [facility] [place] [facility] [address] [id number], [place] [address] 15 Jul, 2014 [facility] [place] [facility] [address] [id number] [place] [address] Jul, [facility] [place] [facility] [address] [id number] [place] [address] Jul, [facility] [place] [facility] [address] [id number] [place] [address] Jul, [facility] [place] [facility] [address] [id number] [place] [address] 11 Jul, 2014 [facility] [place] [facility] [address] [id number] [place] [address] Jul, [facility] [place] [facility] [address] [id number] [place] [address] Jul, [facility] [place] [facility] [address] [id number] [place] [address] 05 Jul, 2014 [facility] [place] [facility] [address] [id number] [place] [address] 05 Jul, 2014 [facility] [place] [facility] [address] [id number] [place] [address] Jul, [facility] [place] [facility] [address] [id number] [place] [address] Jul, [facility] [place] [facility] [address] [id number] [place] [address] Jun, [facility] [place] [facility] [address] [id number] [place] [address] Jun, [facility] [place] [facility] [address] [id number] [place] [address] Jun, [facility] [place] [facility] [address] [facility] [id number] [place] [address] Jun, [facility] [place] [facility] [address] [id number] [place] [address] Jun, [facility] [place] [facility] [address] [id number] [place] [address] Jun, [facility] [place] [facility] [address] [id number] [place] [address] Jun, [facility] [place] [facility] [address] [id number] [place] [address] Jun, [facility] [place] [facility] [address] [id number], [place] [address] Jun, [facility] [place] [facility] [address] [id number] [place] [address] Jun, [facility] [place] [facility] [address] [id number] [place] [address] Jun, [facility] [place] [facility] [address] [id number] [place] [address] Jun, [facility] [place] [facility] [address] [id number] [place] [address] Jun, [facility] [place] [facility] [address] [id number] [place] [address] Jun, [facility] [place] [facility] [address] [id number] [place] [address] May, [facility] [place] [facility] [address] [id number] [place] [address] May, [facility] [place] [facility] [address] [id number] [place] [address] May, [facility] [place] [facility] [address] [id number] [place] [address] May, [facility] [place] [facility] [address] [id number] [place] [address] May, [facility] [place] [facility] [address] [id number] [place] [address] May, [facility] [place] [facility] [address] [id number] [place] [address] May, [facility] [place] [facility] [address] [id number] [place] [address] May, [facility] [place] [facility] [address] [id number] [place] [address] May, [facility] [place] [facility] [address] [id number] [place] [address] May, [facility] [place] [facility] [address] [id number] [place] [address] 30 Sep, 2013 [facility] [place] [facility] [address] [id number] [place] [address] 30 Sep, 2013 [facility] [place] [facility] [address] [id number] [place] [address] 19 Sep, 2013 [facility] [place] [facility] [address] [id number] [place] [address] 19 Sep, 2013 [facility] [place] [facility] [address] [id number] [place] [address] 18 Sep, 2013 [facility] [place] [facility] [address] [id number] [place] [address] 18 Sep, 2013 [facility] [place] [facility] [address] [id number] [place] [address] 18 Sep, 2013 [facility] [place] [facility] [address] [id number] [place] [address] 18 Sep, 2013 [facility] [place] [facility] [address] [id number] [place] [address] 16 Sep, 2013 [facility] [place] [facility] [address] [id number] [place] [address] 16 Sep, 2013 [facility] [place] [facility] [address] [id number] [place] [address] 08 Sep, 2013 [facility] [place] [facility] [address] [id number] [place] [address] 08 Sep, 2013 [facility] [place] [facility] [address] [id number] [place] [address] 08 Sep, 2013 [facility] [place] [facility] [address] [id number] [place] [address] 08 Sep, 2013 [facility] [place] [facility] [address] [id number] [place] [address] 04 Sep, 2013 [facility] [place] [facility] [address] [id number] [place] [address] 04 Sep, 2013 [facility] [place] [facility] [address] [id number] [place] [address] Mar, [facility] [place] [facility] [address] [id number] [place] [address] Mar, [facility] [place] [facility] [address] [id number] [place] [address] Mar, [facility] [place] [facility] [address] [id number] [place] [address] Jan, [facility] [place] [facility] [address] [id number] [place] [address] 23 Jan, 2014 [facility] [place] [facility] [address] [id number] [place] [address] Jan, [facility] [place] [facility] [address] [id number] [place] [address] 18 Jan, 2014 [facility] [place] [facility] [address] [id number] [place] [address] 16 Jan, 2014 [facility] [place] [facility] [address] [id number] [place] [address] 16 Jan, 2014 [facility] [place] [facility] [address] [id number] [place] [address] 16 Jan, 2014 [facility] [place] [facility] [address] [id number] [place] [address] 16 Jan, 2014 [facility] [place] [facility] [address] [id number] [place] [address] Jan, [facility] [place] [facility] [address] [id number] [place] [address] Jan, [facility] [place] [facility] [address] [id number] [place] [address] Jan, [facility] [place] [facility] [address] [id number] [place] [address] 11 Jan, 2014 [facility] [place] [facility] [address] [id number] [place] [address] Jan, [facility] [place] [facility] [address] [id number] [place] [address] Jan, [facility] [place] [facility] [address] [id number] [place] [address] Jan, [facility] [place] [facility] [address] [id number] [place] [address] Jan, [facility] [place] [facility] [address] [id number] [place] [address] December, [facility] [place] [facility] [address] [id number] [place] [address] December, [facility] [place] [facility] [address] [id number] [place] [address] December, [facility] [place] [facility] [address] [id number] [place] [address] December, [facility] [place] [facility] [address] [id number] [place] [address] December, [facility] [place] [facility] [address] [id number] [place] [address] Nov, [facility] [place] [facility] [address] [id number] [place] [address] Nov, [facility] [place] [facility] [address] [id number] [place] [address] Nov, [facility] [place] [facility] [address] [id number] [place] [address] Nov, [facility] [place] [facility] [address] [id number] [place] [address] Nov, [facility] [place] [facility] [address] [id number] [place] [address] Nov, [facility] [place] [facility] [address] [id number] [place] [address] Nov, [facility] [place] [facility] [address] [id number], [place] [address] 24 Nov, 2013 [facility] [place] [facility] [address] [id number] [place] [address] Nov, [facility] [place] [facility] [address] [id number] [place] [address] Nov, [facility] [place] [facility] [address] [facility] [id number] [place] [address] Oct, [facility] [place] [facility] [address] [id number] [place] [address] Oct, [facility] [place] [facility] [address] [id number] [place] [address] Oct, [facility] [place] [facility] [address] [id number] [place] [address] Oct, [facility] [place] [facility] [address] [facility] [id number] [place] [address] Oct, [facility] [place] [facility] [address] [id number] [place] [address] Oct, [facility] [place] [facility] [address] [id number] [place] [address] Oct, [facility] [place] [facility] [address] [facility] [id number] [place] [address] Oct, [facility] [place] [facility] [address] [id number] [place] [address] Oct, [facility] [place] [facility] [address] [id number] [place] [address] Sep, [facility] [place] [facility] [address] [id number] [place] [address] Sep, [facility] [place] [facility] [address] [id number] [place] [address] Sep, [facility] [place] [facility] [address] [facility] [id number] [place] [address] Sep, [facility] [place] [facility] [address] [id number] [place] [address] Sep, [facility] [place] [facility] [address] [id number] [place] [address] Sep, [facility] [place] [facility] [address] [id number] [place] [address] Sep, [facility] [place] [facility] [address] [id number] [place] [address] Aug, [facility] [place] [facility] [address] [id number] [place] [address] Aug, [facility] [place] [facility] [address] [id number] [place] [address] Aug, [facility] [place] [facility] [address] [id number] [place] [address] Aug, [facility] [place] [facility] [address] [id number] [place] [address] Aug, [facility] [place] [facility] [address] [id number] [place] [address] Aug, [facility] [place] [facility] [address] [id number] [place] [address] Aug, [facility] [place] [facility] [address] [id number] [place] [address] Aug, [facility] [place] [facility] [address] [id number], [place] [address] Jul, [facility] [place] [facility] [address] [id number] [place] [address] Jul, [facility] [place] [facility] [address] [id number] [place] [address] Jul, [facility] [place] [facility] [address] [id number], [place] [address] Jul, [facility] [place] [facility] [address] [id number], [place] [address] Jun, [facility] [place] [facility] [address] [id number] [place] [address] Jun, [facility] [place] [facility] [address] [id number] [place] [address] Jun, [facility] [place] [facility] [address] [id number] [place] [address] May, [facility] [place] [facility] [address] [id number] [place] [address] May, [facility] [place] [facility] [address] [id number] [place] [address] May, [facility] [place] [facility] [address] [id number] [place] [address] May, [facility] [place] [facility] [address] [id number] [place] [address] May, [facility] [place] [facility] [address] [id number] [place] [address] May, [facility] [place] [facility] [address] [facility] [id number] [place] [address] May, [facility] [place] [facility] [address] [facility] [id number] [place] [address] Apr, [facility] [place] [facility] [address] [id number], [place] [address] 17 Apr, 2013 [facility] [place] [facility] [address] [id number], [place] [address] 12 Apr, 2013 [facility] [place] [facility] [address] [id number] [place] [address] 11 Apr, 2013 [facility] [place] [facility] [address] [facility] [id number] [place] [address] 05 Apr, 2013 [facility] [place] [facility] [address] [facility] [id number] [place] [address] Mar, [facility] [place] [facility] [address] [id number] [place] [address] Mar, [facility] [place] [facility] [address] [id number] [place] [address] Mar, [facility] [place] [facility] [address] [id number] [place] [address] Mar, [facility] [place] [facility] [address] [id number] [place] [address] Feb, [facility] [place] [facility] [address] [id number] [place] [address] Feb, [facility] [place] [facility] [address] [id number] [place] [address] Feb, [facility] [place] [facility] [address] [id number] [place] [address] Feb, [facility] [place] [facility] [address] [id number] [place] [address] Feb, [facility] [place] [facility] [address] [id number] [place] [address] Feb, [facility] [place] [facility] [address] [id number] [place] [address] Feb, [facility] [place] [facility] [address] [id number] [place] [address] Feb, [facility] [place] [facility] [address] [id number] [place] [address] Jan, [facility] [place] [facility] [address] [id number] [place] [address] Jan, [facility] [place] [facility] [address] [id number] [place] [address] Jan, [facility] [place] [facility] [address] [id number] [place] [address] Jan, [facility] [place] [facility] [address] [id number] [place] [address] Jan, [facility] [address] [id number] [place] [address] Jan, [facility] [place] [facility] [address] [id number] [place] [address] Jan, [facility] [place] [facility] [address] [id number] [place] [address] December, [facility] [place] [facility] [address] [id number] [place] [address] December, [facility] [address] [id number] [place] [address] 30 Nov, 2012 [facility] [place] [facility] [address] [id number] [place] [address] Nov, [facility] [place] [facility] [address] [id number] [place] [address] Nov, [facility] [place] [facility] [address] [id number] [place] [address] Nov, [facility] [place] [facility] [address] [id number] [place] [address] 24 Nov, 2012 [facility] [place] [facility] [address] [id number] [place] [address] Nov, [facility] [place] [facility] [address] [id number] [place] [address] Nov, [facility] [place] [facility] [address] [id number] [address] 15 Nov, 2012 [facility] [place] [facility] [address] [id number] [place] [address] 11 Nov, 2012 [facility] [place] [facility] [address] [id number] [place] [address] 10 Nov, 2012 [facility] [place] [facility] [address] [id number] [place] [address] 08 Nov, 2012 [facility] [place] [facility] [address] [id number] [place] [address] 05 Nov, 2012 [facility] [address] [id number] [place] [address] Nov, [facility] [place] [facility] [address] [id number] [place] [address] Nov, [facility] [address] [id number] [place] [address] Oct, [facility] [place] [facility] [address] [id number] [place] [address] Oct, [facility] [address] [id number] [place] [address] Oct, [facility] [address] [id number] [place] [address] Oct, [facility] [address] [id number] [place] [address] Oct, [facility] [address] [id number] [place] [address] Oct, [facility] [address] [id number] [place] [address] Oct, [facility] [address] [id number] [place] [address] Oct, [facility] [address] [id number] [place] [address] Oct, [facility] [place] [facility] [address] [id number] [place] [address] Sep, [facility] [place] [facility] [address] [id number] [place] [address] Aug, [facility] [place] [facility] [address] [id number] [place] [address] Aug, [facility] [place] [facility] [address] [id number] [place] [address] Aug, [facility] [place] [facility] [address] [id number] [place] [address] Aug, [facility] [place] [facility] [address] [id number] [place] [address] 31 Jul, 2012 [facility] [place] [facility] [address] [id number] [place] [address] 31 Jul, 2012 [facility] [place] [facility] [address] [id number] [place] [address] Jul, [facility] [address] [id number] [place] [address] 19 Jul, 2012 [facility] [place] [facility] [address] [id number] [place] [address] Jul, [facility] [address] [id number] [place] [address] 15 Jul, 2012 [facility] [place] [facility] [address] [id number] [place] [address] 15 Jul, 2012 [facility] [place] [facility] [address] [id number] [place] [address] 14 Jul, 2012 [facility] [place] [facility] [address] [id number] [place] [address] 14 Jul, 2012 [facility] [place] [facility] [address] [id number] [place] [address] May, [facility] [place] [facility] [address] [id number] [place] [address] 22 May, 2012 [facility] [place] [facility] [address] [id number] [place] [address] 16 May, 2012 [facility] [place] [facility] [address] [id number] [place] [address] 16 May, 2012 [facility] [place] [facility] [address] [id number] [place] [address] 12 May, 2012 [facility] [place] [facility] [address] [id number] [place] [address] May, [facility] [place] [facility] [address] [id number] [place] [address] 27 Apr, 2012 [facility] [place] [facility] [address] [id number] [place] [address] 27 Apr, 2012 [facility] [place] [facility] [address] [id number] [place] [address] 24 Apr, 2012 [facility] [place] [facility] [address] [id number] [place] [address] 18 Apr, 2012 [facility] [place] [facility] [address] [id number] [place] [address] 14 Apr, 2012 [facility] [place] [facility] [address] [id number] [place] [address] 12 Apr, 2012 [facility] [place] [facility] [address] [id number] [place] [address] Mar, [facility] [place] [facility] [address] [id number] [place] [address] Feb, [facility] [place] [facility] [address] [id number] [place] [address] Feb, [facility] [place] [facility] [address] [id number] [place] [address] Feb, [facility] [place] [facility] [address] [id number] [place] [address] Jan, [facility] [place] [facility] [address] [id number] [place] [address] December, [facility] [place] [facility] [address] [id number] [place] [address] December, [facility] [place] [facility] [address] [address] [id number] [place] [address] December, [facility] [place] [facility] [address] [id number] [place] [address] December, [facility] [place] [facility] [address] [id number] [place] [address] December, [facility] [address] [id number] [place] [address] December, [facility] [address] [id number] [place] [address] Nov, [facility] [address] [id number] [place] [address] Nov, [facility] [address] [id number] [place] [address] 17 Nov, 2011 [facility] [address] [id number] [place] [address] Nov, [facility] [address] [id number] [place] [address] 16 Nov, 2011 [facility] [address] [id number] [place] [address] 13 Nov, 2011 [facility] [address] [id number] [place] [address] 12 Nov, 2011 [facility] [address] [id number] [place] [address] Nov, [facility] [address] [id number] [place] [address] 05 Nov, 2011 [facility] [address] [id number] [place] [address] 04 Nov, 2011 [facility] [address] [id number] [place] [address] 30 Oct, 2011 [facility] [place] [facility] [address] [id number] [place] [address] 29 Oct, 2011 [facility] [address] [id number] [place] [address] 28 Oct, 2011 [facility] [address] [id number] [place] [address] Oct, [facility] [place] [facility] [address] [id number] [place] [address] 26 Oct, 2011 [facility] [place] [facility] [address] [id number] [place] [address] 23 Oct, 2011 [facility] [place] [facility] [address] [id number] [place] [address] 21 Oct, 2011 [facility] [place] [facility] [address] [id number] [place] [address] 19 Oct, 2011 [facility] [place] [facility] [address] [id number] [place] [address] 08 Oct, 2011 [facility] [place] [facility] [address] [id number] [place] [address] 07 Oct, 2011 [facility] [place] [facility] [address] [id number] [place] [address] 06 Oct, 2011 [facility] [place] [facility] [address] [id number] [place] [address] 05 Oct, 2011 [facility] [place] [facility] [address] [id number] [place] [address] 16 Sep, 2011 [facility] [place] [facility] [address] [id number] [place] [address] 14 Sep, 2011 [facility] [place] [facility] [address] [id number] [place] [address] 12 Sep, 2011 [facility] [place] [facility] [address] [id number] [place] [address] 10 Sep, 2011 [facility] [place] [facility] [address] [id number] [place] [address] 06 Sep, 2011 [facility] [place] [facility] [address] [id number] [place] [address] 06 Sep, 2011 [facility] [place] [facility] [address] [facility] [id number] [place] [address] 06 Sep, 2011 [facility] [place] [facility] [address] [id number] [place] [address] 06 Sep, 2011 [facility] [address] [id number] [place] [address] Sep, [facility] [address] [id number] [place] [address] 30 Aug, 2011 [facility] [address] [id number] [place] [address] Aug, [facility] [address] [id number] [place] [address] Aug, [facility] [address] [id number] [place] [address] Aug, [facility] [address] [id number] [place] [address] Aug, [facility] [address] [id number] [place] [address] Aug, [facility] [address] [id number] [place] [address] Aug, [facility] [address] [id number] [place] [address] 24 Jul, 2011 [facility] [address] [id number] [place] [address] 16 Jul, 2011 [facility] [address] [id number] [place] [address] 16 Jul, 2011 [facility] [address] [id number] [place] [address] 14 Jul, 2011 [facility] [place] [facility] [address] [id number] [place] [address] 30 Jun, 2011 [facility] [address] [id number] [place] [address] Jun, [facility] [address] [id number] [place] [address] May, [facility] [address] [facility] [id number] [place] [address] Mar, [facility] [address] [facility] [id number], [place] [address] Jan, [facility] [address] [facility] [id number] [place] [address] May, IMMUNIZATIONS No Known Immunizations SOCIAL HISTORY Never Assessed REASON FOR VISIT PLAN OF CARE VITAL SIGNS MEDICATIONS Unknown Medications RESULTS No Results PROCEDURES No Known procedures INSTRUCTIONS MEDICATIONS ADMINISTERED No Known Medications MEDICAL (GENERAL) HISTORY Type Description Date Medical History hypertension Medical History asthma Medical History Hypothyroidism Medical History Arthritis Medical History MRSA Surgical History ENT surgery Surgical History carpal tunnel release (L); ulnar nerve release (L) 2012
--- OUTSIDE RECORDS SUMMARY | 2019-03-23 07:04 | XMS REPORT ---
Author Author Migration, Doctor Organization [facility] Address Unknown Phone Unavailable Care Team Providers Care Program Management Analyst Name Role Phone Migration, Doctor Unavailable Unavailable PROBLEMS Type Condition ICD9-CM Code AMP53-YE Code Onset Dates Condition Status SNOMED Code Problem Other postablative hypothyroidism 244.1 Active 106521733 Problem Major depressive disorder, recurrent episode, severe, without mention of psychotic behavior 296.33 Active 25657054 ALLERGIES No Information ENCOUNTERS Encounter Location Date Diagnosis [place] [id number] [place] [address] Sep, Unspecified mood [affective] disorder [place] [id number] [place] [address] Aug, Unspecified mood [affective] disorder [place] [id number] [place] [address] Jul, Unspecified mood [affective] disorder 9 [place] [id number] [place] [address] Jun, Unspecified mood [affective] disorder [place] [id number] [place] [address] Mar, Affective disorder 296.90 [place] [id number] [place] [address] Mar, [place] [id number] [place] [address] Feb, Nexplanon removal V25.43 and Initiation of OCP (BCP) V25.01 [place] [id number] [place] [address] Feb, Episodic mood disorder 296.90 [place] [id number] [place] [address] [place] [address] Feb, [facility] [address] [address] Feb, Routine gynecological examination V72.31 ; Pap test, as part of routine gynecological examination V76.2 ; Breast cancer screening V76.10 ; Nexplanon in place V45.52 and Rash 782.1 [facility] [address] [address] Jan, Episodic mood disorder 296.90 [facility] [address] [address] Jan, [facility] [address] [address] December, Episodic mood disorder 296.90 [facility] [address] [address] December, [facility] [address] [address] December, [facility] [address] [address] December, [facility] [address] [address] Nov, [facility] [address] [address] Nov, [facility] [address] [address] Nov, [facility] [address] [address] Oct, [facility] [address] [address] Oct, [facility] [id number] [address] Oct, [facility] [id number] [place] [address] Oct, [facility] [place] [facility] [address] [id number] [place] [address] Oct, [facility] [place] [facility] [address] [id number] [place] [address] Oct, [facility] [place] [facility] [address] [id number] [place] [address] Sep, 2014 [facility] [place] [facility] [address] [id number] [place] [address] Sep, 2014 [facility] [place] [facility] [address] [id number] [place] [address] Sep, 2014 [facility] [place] [facility] [address] [id number] [place] [address] Sep, 2014 [facility] [place] [facility] [address] [id number] [place] [address] Sep, [facility] [place] [facility] [address] [id number] [place] [address] Sep, [facility] [place] [facility] [address] [id number] [place] [address] Aug, [facility] [place] [facility] [address] [id number] [place] [address] Aug, [facility] [place] [facility] [address] [id number] [place] [address] Aug, [facility] [place] [facility] [address] [id number] [place] [address] Aug, [facility] [place] [facility] [address] [id number] [place] [address] Aug, [facility] [place] [facility] [address] [id number] [place] [address] Aug, [facility] [place] [facility] [address] [id number] [place] [address] Aug, [facility] [place] [facility] [address] [id number] [place] [address] 14 Aug, 2014 [facility] [place] [facility] [address] [id number] [place] [address] Aug, [facility] [place] [facility] [address] [id number] [place] [address] Aug, [facility] [place] [facility] [address] [id number] [place] [address] Aug, [facility] [place] [facility] [address] [id number] [place] [address] Aug, [facility] [place] [facility] [address] [id number] [place] [address] Aug, [facility] [place] [facility] [address] [id number] [place] [address] Aug, [facility] [place] [facility] [address] [id number] [place] [address] Aug, [facility] [place] [facility] [address] [id number] [place] [address] Aug, [facility] [place] [facility] [address] [id number] [place] [address] Jul, [facility] [place] [facility] [address] [id number] [address] 15 Jul, 2014 [facility] [place] [facility] [address] [id number] [address] 15 Jul, 2014 [facility] [place] [facility] [address] [id number] [place] [address] Jul, [facility] [place] [facility] [address] [id number] [place] [address] Jul, [facility] [place] [facility] [address] [id number] [place] [address] Jul, [facility] [place] [facility] [address] [id number] [place] [address] 11 Jul, 2014 [facility] [place] [facility] [address] [id number] [place] [address] Jul, [facility] [place] [facility] [address] [id number] [place] [address] Jul, [facility] [place] [facility] [address] [id number] [place] [address] 05 Jul, 2014 [facility] [place] [facility] [address] [id number] [place] [address] 05 Jul, 2014 [facility] [place] [facility] [address] [id number] [place] [address] Jul, [facility] [place] [facility] [address] [id number] [place] [address] Jul, [facility] [place] [facility] [address] [id number] [place] [address] Jun, [facility] [place] [facility] [address] [id number] [place] [address] Jun, [facility] [place] [facility] [address] [id number] [place] [address] Jun, [facility] [place] [facility] [address] [facility] [id number] [place] [address] Jun, [facility] [place] [facility] [address] [id number] [place] [address] Jun, [facility] [place] [facility] [address] [id number] [place] [address] Jun, [facility] [place] [facility] [address] [id number] [place] [address] Jun, [facility] [place] [facility] [address] [id number] [place] [address] Jun, [facility] [place] [facility] [address] [id number] [address] Jun, [facility] [place] [facility] [address] [id number] [place] [address] Jun, [facility] [place] [facility] [address] [id number] [place] [address] Jun, [facility] [place] [facility] [address] [id number] [place] [address] Jun, [facility] [place] [facility] [address] [id number] [place] [address] Jun, [facility] [place] [facility] [address] [id number] [place] [address] Jun, [facility] [place] [facility] [address] [id number] [place] [address] May, [facility] [place] [facility] [address] [id number] [place] [address] May, [facility] [place] [facility] [address] [id number] [place] [address] May, [facility] [place] [facility] [address] [id number] [place] [address] May, [facility] [place] [facility] [address] [id number] [place] [address] May, [facility] [place] [facility] [address] [id number] [place] [address] May, [facility] [place] [facility] [address] [id number] [place] [address] May, [facility] [place] [facility] [address] [id number] [place] [address] May, [facility] [place] [facility] [address] [id number] [place] [address] May, [facility] [place] [facility] [address] [id number] [place] [address] May, [facility] [place] [facility] [address] [id number] [place] [address] 30 Sep, 2013 [facility] [place] [facility] [address] [id number] [place] [address] 30 Sep, 2013 [facility] [place] [facility] [address] [id number] [place] [address] 19 Sep, 2013 [facility] [place] [facility] [address] [id number] [place] [address] 19 Sep, 2013 [facility] [place] [facility] [address] [id number] [place] [address] 18 Sep, 2013 [facility] [place] [facility] [address] [id number] [place] [address] 18 Sep, 2013 [facility] [place] [facility] [address] [id number] [place] [address] 18 Sep, 2013 [facility] [place] [facility] [address] [id number] [place] [address] 18 Sep, 2013 [facility] [place] [facility] [address] [id number] [place] [address] 16 Sep, 2013 [facility] [place] [facility] [address] [id number] [place] [address] 16 Sep, 2013 [facility] [place] [facility] [address] [id number] [place] [address] 08 Sep, 2013 [facility] [place] [facility] [address] [id number] [place] [address] 08 Sep, 2013 [facility] [place] [facility] [address] [id number] [place] [address] 08 Sep, 2013 [facility] [place] [facility] [address] [id number] [place] [address] 08 Sep, 2013 [facility] [place] [facility] [address] [id number] [place] [address] 04 Sep, 2013 [facility] [place] [facility] [address] [id number] [place] [address] 04 Sep, 2013 [facility] [place] [facility] [address] [id number] [place] [address] Mar, [facility] [place] [facility] [address] [id number] [place] [address] Mar, [facility] [place] [facility] [address] [id number] [place] [address] Mar, [facility] [place] [facility] [address] [id number] [place] [address] Jan, [facility] [place] [facility] [address] [id number] [place] [address] 23 Jan, 2014 [facility] [place] [facility] [address] [id number] [place] [address] Jan, [facility] [place] [facility] [address] [id number] [place] [address] 18 Jan, 2014 [facility] [place] [facility] [address] [id number] [place] [address] 16 Jan, 2014 [facility] [place] [facility] [address] [id number] [place] [address] 16 Jan, 2014 [facility] [place] [facility] [address] [id number] [place] [address] 16 Jan, 2014 [facility] [place] [facility] [address] [id number] [place] [address] 16 Jan, 2014 [facility] [place] [facility] [address] [id number] [place] [address] Jan, [facility] [place] [facility] [address] [id number] [place] [address] Jan, [facility] [place] [facility] [address] [id number] [place] [address] Jan, [facility] [place] [facility] [address] [id number] [place] [address] 11 Jan, 2014 [facility] [place] [facility] [address] [id number] [place] [address] Jan, [facility] [place] [facility] [address] [id number] [place] [address] Jan, [facility] [place] [facility] [address] [id number] [place] [address] Jan, [facility] [place] [facility] [address] [id number] [place] [address] Jan, [facility] [place] [facility] [address] [id number] [place] [address] December, [facility] [place] [facility] [address] [id number] [place] [address] December, [facility] [place] [facility] [address] [id number] [place] [address] December, [facility] [place] [facility] [address] [id number] [place] [address] December, [facility] [place] [facility] [address] [id number] [place] [address] December, [facility] [place] [facility] [address] [id number] [place] [address] Nov, [facility] [place] [facility] [address] [id number] [place] [address] Nov, [facility] [place] [facility] [address] [id number] [place] [address] Nov, [facility] [place] [facility] [address] [id number] [place] [address] Nov, [facility] [place] [facility] [address] [id number] [place] [address] Nov, [facility] [place] [facility] [address] [id number] [place] [address] Nov, [facility] [place] [facility] [address] [id number] [place] [address] Nov, [facility] [place] [facility] [address] [id number] [address] 24 Nov, 2013 [facility] [place] [facility] [address] [id number] [place] [address] Nov, [facility] [place] [facility] [address] [id number] [place] [address] Nov, [facility] [place] [facility] [address] [facility] [id number] [place] [address] Oct, [facility] [place] [facility] [address] [id number] [place] [address] Oct, [facility] [place] [facility] [address] [id number] [place] [address] Oct, [facility] [place] [facility] [address] [id number] [place] [address] Oct, [facility] [place] [facility] [address] [facility] [id number] [place] [address] Oct, [facility] [place] [facility] [address] [id number] [place] [address] Oct, [facility] [place] [facility] [address] [id number] [place] [address] Oct, [facility] [place] [facility] [address] [facility] [id number] [place] [address] Oct, [facility] [place] [facility] [address] [id number] [place] [address] Oct, [facility] [place] [facility] [address] [id number] [place] [address] Sep, [facility] [place] [facility] [address] [id number] [place] [address] Sep, [facility] [place] [facility] [address] [id number] [place] [address] Sep, [facility] [place] [facility] [address] [facility] [id number] [place] [address] Sep, [facility] [place] [facility] [address] [id number] [place] [address] Sep, [facility] [place] [facility] [address] [id number] [place] [address] Sep, [facility] [place] [facility] [address] [id number] [place] [address] Sep, [facility] [place] [facility] [address] [id number] [place] [address] Aug, [facility] [place] [facility] [address] [id number] [place] [address] Aug, [facility] [place] [facility] [address] [id number] [place] [address] Aug, [facility] [place] [facility] [address] [id number] [place] [address] Aug, [facility] [place] [facility] [address] [id number] [place] [address] Aug, [facility] [place] [facility] [address] [id number] [place] [address] Aug, [facility] [place] [facility] [address] [id number] [place] [address] Aug, [facility] [place] [facility] [address] [id number] [place] [address] Aug, [facility] [place] [facility] [address] [id number] [address] Jul, [facility] [place] [facility] [address] [id number] [place] [address] Jul, [facility] [place] [facility] [address] [id number] [place] [address] Jul, [facility] [place] [facility] [address] [id number] [address] Jul, [facility] [place] [facility] [address] [id number] [place] [address] Jun, [facility] [place] [facility] [address] [id number] [place] [address] Jun, [facility] [place] [facility] [address] [id number] [place] [address] Jun, [facility] [place] [facility] [address] [id number] [place] [address] May, [facility] [place] [facility] [address] [id number] [place] [address] May, [facility] [place] [facility] [address] [id number] [place] [address] May, [facility] [place] [facility] [address] [id number] [place] [address] May, [facility] [place] [facility] [address] [id number] [place] [address] May, [facility] [place] [facility] [address] [id number] [place] [address] May, [facility] [place] [facility] [address] [facility] [id number] [place] [address] May, [facility] [place] [facility] [address] [facility] [id number] [place] [address] Apr, [facility] [place] [facility] [address] [id number] [address] 17 Apr, 2013 [facility] [place] [facility] [address] [id number] [address] 12 Apr, 2013 [facility] [place] [facility] [address] [id number] [place] [address] 11 Apr, 2013 [facility] [place] [facility] [address] [facility] [id number] [place] [address] 05 Apr, 2013 [facility] [place] [facility] [address] [facility] [id number] [place] [address] Mar, [facility] [place] [facility] [address] [id number] [place] [address] Mar, [facility] [place] [facility] [address] [id number] [place] [address] Mar, [facility] [place] [facility] [address] [id number] [place] [address] Mar, [facility] [place] [facility] [address] [id number] [place] [address] Feb, [facility] [place] [facility] [address] [id number] [place] [address] Feb, [facility] [place] [facility] [address] [id number] [place] [address] Feb, [facility] [place] [facility] [address] [id number] [place] [address] Feb, [facility] [place] [facility] [address] [id number] [place] [address] Feb, [facility] [place] [facility] [address] [id number] [place] [address] Feb, [facility] [place] [facility] [address] [id number] [place] [address] Feb, [facility] [place] [facility] [address] [id number] [place] [address] Feb, [facility] [place] [facility] [address] [id number] [place] [address] Jan, [facility] [place] [facility] [address] [id number] [place] [address] Jan, [facility] [place] [facility] [address] [id number] [place] [address] Jan, [facility] [place] [facility] [address] [id number] [place] [address] Jan, [facility] [place] [facility] [address] [id number] [place] [address] Jan, [facility] [address] [id number] [place] [address] Jan, [facility] [place] [facility] [address] [id number] [place] [address] Jan, [facility] [place] [facility] [address] [id number] [place] [address] December, [facility] [place] [facility] [address] [id number] [place] [address] December, [facility] [address] [id number] [place] [address] 30 Nov, 2012 [facility] [place] [facility] [address] [id number] [place] [address] Nov, [facility] [place] [facility] [address] [id number] [place] [address] Nov, [facility] [place] [facility] [address] [id number] [place] [address] Nov, [facility] [place] [facility] [address] [id number] [place] [address] 24 Nov, 2012 [facility] [place] [facility] [address] [id number] [place] [address] Nov, [facility] [place] [facility] [address] [id number] [place] [address] Nov, [facility] [place] [facility] [address] [id number] [address] 15 Nov, 2012 [facility] [place] [facility] [address] [id number] [place] [address] 11 Nov, 2012 [facility] [place] [facility] [address] [id number] [place] [address] 10 Nov, 2012 [facility] [place] [facility] [address] [id number] [place] [address] 08 Nov, 2012 [facility] [place] [facility] [address] [id number] [place] [address] 05 Nov, 2012 [facility] [address] [id number] [place] [address] Nov, [facility] [place] [facility] [address] [id number] [place] [address] Nov, [facility] [address] [id number] [place] [address] Oct, [facility] [place] [facility] [address] [id number] [place] [address] Oct, [facility] [address] [id number] [place] [address] Oct, [facility] [address] [id number] [place] [address] Oct, [facility] [address] [id number] [place] [address] Oct, [facility] [address] [id number] [place] [address] Oct, [facility] [address] [id number] [place] [address] Oct, [facility] [address] [id number] [place] [address] Oct, [facility] [address] [id number] [place] [address] Oct, [facility] [place] [facility] [address] [id number] [place] [address] Sep, [facility] [place] [facility] [address] [id number] [place] [address] Aug, [facility] [place] [facility] [address] [id number] [place] [address] Aug, [facility] [place] [facility] [address] [id number] [place] [address] Aug, [facility] [place] [facility] [address] [id number] [place] [address] Aug, [facility] [place] [facility] [address] [id number] [place] [address] 31 Jul, 2012 [facility] [place] [facility] [address] [id number] [place] [address] 31 Jul, 2012 [facility] [place] [facility] [address] [id number] [place] [address] Jul, [facility] [address] [id number] [place] [address] 19 Jul, 2012 [facility] [place] [facility] [address] [id number] [place] [address] Jul, [facility] [address] [id number] [place] [address] 15 Jul, 2012 [facility] [place] [facility] [address] [id number] [place] [address] 15 Jul, 2012 [facility] [place] [facility] [address] [id number] [place] [address] 14 Jul, 2012 [facility] [place] [facility] [address] [id number] [place] [address] 14 Jul, 2012 [facility] [place] [facility] [address] [id number] [place] [address] May, [facility] [place] [facility] [address] [id number] [place] [address] 22 May, 2012 [facility] [place] [facility] [address] [id number] [place] [address] 16 May, 2012 [facility] [place] [facility] [address] [id number] [place] [address] 16 May, 2012 [facility] [place] [facility] [address] [id number] [place] [address] 12 May, 2012 [facility] [place] [facility] [address] [id number] [place] [address] May, [facility] [place] [facility] [address] [id number] [place] [address] 27 Apr, 2012 [facility] [place] [facility] [address] [id number] [place] [address] 27 Apr, 2012 [facility] [place] [facility] [address] [id number] [place] [address] 24 Apr, 2012 [facility] [place] [facility] [address] [id number] [place] [address] 18 Apr, 2012 [facility] [place] [facility] [address] [id number] [place] [address] 14 Apr, 2012 [facility] [place] [facility] [address] [id number] [place] [address] 12 Apr, 2012 [facility] [place] [facility] [address] [id number] [place] [address] Mar, [facility] [place] [facility] [address] [id number] [place] [address] Feb, [facility] [place] [facility] [address] [id number] [place] [address] Feb, [facility] [place] [facility] [address] [address] [id number] [place] [address] Feb, [facility] [place] [facility] [address] [id number] [place] [address] Jan, [facility] [place] [facility] [address] [id number] [place] [address] December, [facility] [place] [facility] [address] [id number] [place] [address] December, [facility] [place] [facility] [address] [id number] [place] [address] December, [facility] [place] [facility] [address] [id number] [place] [address] December, [facility] [place] [facility] [address] [id number] [place] [address] December, [facility] [address] [id number] [place] [address] December, [facility] [address] [id number] [place] [address] Nov, [facility] [address] [id number] [place] [address] Nov, [facility] [address] [id number] [place] [address] 17 Nov, 2011 [facility] [address] [id number] [place] [address] Nov, [facility] [address] [id number] [place] [address] 16 Nov, 2011 [facility] [address] [id number] [place] [address] 13 Nov, 2011 [facility] [address] [id number] [place] [address] 12 Nov, 2011 [facility] [address] [id number] [place] [address] Nov, [facility] [address] [id number] [place] [address] 05 Nov, 2011 [facility] [address] [id number] [place] [address] 04 Nov, 2011 [facility] [address] [id number] [place] [address] 30 Oct, 2011 [facility] [place] [facility] [address] [id number] [place] [address] 29 Oct, 2011 [facility] [address] [id number] [place] [address] 28 Oct, 2011 [facility] [address] [id number] [place] [address] Oct, [facility] [place] [facility] [address] [id number] [place] [address] 26 Oct, 2011 [facility] [place] [facility] [address] [id number] [place] [address] 23 Oct, 2011 [facility] [place] [facility] [address] [id number] [place] [address] 21 Oct, 2011 [facility] [place] [facility] [address] [id number] [place] [address] 19 Oct, 2011 [facility] [place] [facility] [address] [id number] [place] [address] 08 Oct, 2011 [facility] [place] [facility] [address] [id number] [place] [address] 07 Oct, 2011 [facility] [place] [facility] [address] [id number] [place] [address] 06 Oct, 2011 [facility] [place] [facility] [address] [id number] [place] [address] 05 Oct, 2011 [facility] [place] [facility] [address] [id number] [place] [address] 16 Sep, 2011 [facility] [place] [facility] [address] [id number] [place] [address] 14 Sep, 2011 [facility] [place] [facility] [address] [id number] [place] [address] 12 Sep, 2011 [facility] [place] [facility] [address] [id number] [place] [address] 10 Sep, 2011 [facility] [place] [facility] [address] [id number] [place] [address] 06 Sep, 2011 [facility] [place] [facility] [address] [id number] [place] [address] 06 Sep, 2011 [facility] [place] [facility] [address] [facility] [id number] [place] [address] 06 Sep, 2011 [facility] [place] [facility] [address] [id number] [place] [address] 06 Sep, 2011 [facility] [address] [id number] [place] [address] Sep, [facility] [address] [id number] [place] [address] 30 Aug, 2011 [facility] [address] [id number] [place] [address] Aug, [facility] [address] [id number] [place] [address] Aug, [facility] [address] [id number] [place] [address] Aug, [facility] [address] [id number] [place] [address] Aug, [facility] [address] [id number] [place] [address] Aug, [facility] [address] [id number] [place] [address] Aug, [facility] [address] [id number] [place] [address] 24 Jul, 2011 [facility] [address] [id number] [place] [address] 16 Jul, 2011 [facility] [address] [id number] [place] [address] 16 Jul, 2011 [facility] [address] [id number] [place] [address] 14 Jul, 2011 [facility] [place] [facility] [address] [id number] [place] [address] 30 Jun, 2011 [facility] [address] [id number] [place] [address] Jun, [facility] [address] [id number] [place] [address] May, [facility] [address] [facility] [id number] [place] [address] Mar, [facility] [address] [facility] [id number] [address] Jan, [facility] [address] [facility] [id number] [place] [address] May, IMMUNIZATIONS No Known Immunizations SOCIAL HISTORY [...]
--- OUTSIDE RECORDS SUMMARY | 2019-03-23 07:05 | XMS REPORT ---
Author Author Sammy, [facility] Organization [facility] Address [address], [place] [id number] Care Team Providers Care Stem Frazer Name Role Phone [facility] Unavailable PROBLEMS Type Condition ICD9-CM Code XOE13-CB Code Onset Dates Condition Status SNOMED Code Problem Other postablative hypothyroidism 244.1 Active 972725138 Problem Major depressive disorder, recurrent episode, severe, without mention of psychotic behavior 296.33 Active [id number] ALLERGIES No Information ENCOUNTERS Encounter Location Date Diagnosis [place] [id number] [place] [address] Sep, Unspecified mood [affective] disorder [id number] [place] [address] Aug, Unspecified mood [affective] disorder [id number] [place] [address] Jul, Unspecified mood [affective] disorder [place] [id number] [place] [address] Jun, Unspecified mood [affective] disorder [id number] [place] [address] Mar, Affective disorder 296.90 [facility] [id number] [place] [address] Mar, [place] [id number] [place] [address] Feb, Nexplanon removal V25.43 and Initiation of OCP (BCP) V25.01 [facility] [address] [address] Feb, Episodic mood disorder 296.90 [facility] [address] [facility] [id number], [place] [address] Feb, [facility] [address], [place] [address] Feb, Routine gynecological examination V72.31 ; Pap test, as part of routine gynecological examination V76.2 ; Breast cancer screening V76.10 ; Nexplanon in place V45.52 and Rash 782.1 [facility] [address] [facility] [id number], [place] [address] Jan, Episodic mood disorder 296.90 [facility] [address] [id number] [address] Jan, [facility] [address], [place] [address] December, Episodic mood disorder 296.90 [facility] [address], [place] [address] December, [facility] [address] [address] December, [facility] [address], [place] [address] December, [facility] [address], [place] [address] Nov, [facility] [address], [place] [address] Nov, [facility] [address] [id number] [address] Nov, [facility] [address] [id number] [address] Oct, [facility] [address], [place] [address] Oct, [facility] [id number] [place] [address] Oct, [facility] [place] [facility] [address] [id number] [place] [address] Oct, [facility] [place] [facility] [address] [id number] [place] [address] Oct, [facility] [place] [facility] [address] [id number] [place] [address] Oct, [facility] [place] [facility] [address] [id number] [place] [address] Sep, [facility] [place] [facility] [address] [id number] [place] [address] Sep, [facility] [place] [facility] [address] [id number] [place] [address] Sep, [facility] [place] [facility] [address] [id number] [place] [address] Sep, [facility] [place] [facility] [address] [id number] [place] [address] Sep, [facility] [place] [facility] [address] [id number] [place] [address] Sep, [facility] [place] [facility] [address] [id number] [place] [address] Aug, [facility] [place] [facility] [address] [id number] [place] [address] Aug, [facility] [place] [facility] [address] [id number] [place] [address] Aug, [facility] [place] [facility] [address] [id number] [place] [address] Aug, [facility] [place] [facility] [address] [id number] [place] [address] Aug, [facility] [place] [facility] [address] [id number] [place] [address] Aug, [facility] [place] [facility] [address] [id number] [place] [address] Aug, [facility] [place] [facility] [address] [id number] [place] [address] Aug, [facility] [place] [facility] [address] [id number] [place] [address] Aug, [facility] [place] [facility] [address] [id number] [place] [address] Aug, [facility] [place] [facility] [address] [id number] [place] [address] Aug, [facility] [place] [facility] [address] [id number] [place] [address] Aug, [facility] [place] [facility] [address] [id number] [place] [address] Aug, [facility] [place] [facility] [address] [id number] [place] [address] Aug, [facility] [place] [facility] [address] [id number] [place] [address] Aug, [facility] [place] [facility] [address] [id number] [place] [address] Aug, [facility] [place] [facility] [address] [id number], [place] [address] 30 Jul, 2014 [facility] [place] [facility] [address] [id number], [place] [address] Jul, [facility] [place] [facility] [address] [id number] [place] [address] Jul, [facility] [place] [facility] [address] [id number] [place] [address] Jul, [facility] [place] [facility] [address] [id number] [place] [address] Jul, [facility] [place] [facility] [address] [id number] [place] [address] 11 Jul, 2014 [facility] [place] [facility] [address] [id number] [place] [address] Jul, [facility] [place] [facility] [address] [id number] [place] [address] Jul, [facility] [place] [facility] [address] [id number] [place] [address] Jul, [facility] [place] [facility] [address] [id number] [place] [address] 05 Jul, 2014 [facility] [place] [facility] [address] [id number] [place] [address] 05 Jul, 2014 [facility] [place] [facility] [address] [id number] [place] [address] Jul, [facility] [place] [facility] [address] [id number] [place] [address] Jul, [facility] [place] [facility] [address] [id number] [place] [address] Jun, [facility] [place] [facility] [address] [id number] [place] [address] Jun, [facility] [place] [facility] [address] [facility] [id number] [place] [address] Jun, [facility] [place] [facility] [address] [id number] [place] [address] Jun, [facility] [place] [facility] [address] [id number] [place] [address] Jun, [facility] [place] [facility] [address] [id number] [place] [address] Jun, [facility] [place] [facility] [address] [id number] [place] [address] Jun, [facility] [place] [facility] [address] [id number] [place] [address] Jun, [facility] [place] [facility] [address] [id number] [place] [address] Jun, [facility] [place] [facility] [address] [id number] [place] [address] Jun, [facility] [place] [facility] [address] [id number] [place] [address] Jun, [facility] [place] [facility] [address] [id number] [place] [address] Jun, [facility] [place] [facility] [address] [id number] [place] [address] Jun, [facility] [place] [facility] [address] [id number] [place] [address] Jun, [facility] [place] [facility] [address] [id number] [place] [address] May, [facility] [place] [facility] [address] [id number] [place] [address] May, [facility] [place] [facility] [address] [id number] [place] [address] May, [facility] [place] [facility] [address] [id number] [place] [address] May, [facility] [place] [facility] [address] [id number] [place] [address] May, [facility] [place] [facility] [address] [id number] [place] [address] May, [facility] [place] [facility] [address] [id number] [place] [address] May, [facility] [place] [facility] [address] [id number] [place] [address] May, [facility] [place] [facility] [address] [id number] [place] [address] May, [facility] [place] [facility] [address] [id number] [place] [address] 10 May, 2013 [facility] [place] [facility] [address] [id number] [place] [address] 30 Sep, 2013 [facility] [place] [facility] [address] [id number] [place] [address] 30 Sep, 2013 [facility] [place] [facility] [address] [id number] [place] [address] 19 Sep, 2013 [facility] [place] [facility] [address] [id number] [place] [address] 19 Sep, 2013 [facility] [place] [facility] [address] [id number] [place] [address] 18 Sep, 2013 [facility] [place] [facility] [address] [id number] [place] [address] 18 Sep, 2013 [facility] [place] [facility] [address] [id number] [place] [address] 18 Sep, 2013 [facility] [place] [facility] [address] [id number] [place] [address] 18 Sep, 2013 [facility] [place] [facility] [address] [id number] [place] [address] 16 Sep, 2013 [facility] [place] [facility] [address] [id number] [place] [address] 16 Sep, 2013 [facility] [place] [facility] [address] [id number] [place] [address] 08 Sep, 2013 [facility] [place] [facility] [address] [id number], [place] [address] 08 Sep, 2013 [facility] [place] [facility] [address] [id number] [place] [address] 08 Sep, 2013 [facility] [place] [facility] [address] [id number] [place] [address] 08 Sep, 2013 [facility] [place] [facility] [address] [id number] [place] [address] 04 Sep, 2013 [facility] [place] [facility] [address] [id number] [place] [address] Apr, [facility] [place] [facility] [address] [id number] [place] [address] Mar, [facility] [place] [facility] [address] [id number] [place] [address] Mar, [facility] [place] [facility] [address] [id number] [place] [address] Mar, [facility] [place] [facility] [address] [id number] [place] [address] Jan, [facility] [place] [facility] [address] [id number] [place] [address] Jan, [facility] [place] [facility] [address] [id number] [place] [address] Jan, [facility] [place] [facility] [address] [id number] [place] [address] Jan, [facility] [place] [facility] [address] [id number] [place] [address] Jan, [facility] [place] [facility] [address] [id number] [place] [address] Jan, [facility] [place] [facility] [address] [id number] [place] [address] 16 Jan, 2014 [facility] [place] [facility] [address] [id number] [place] [address] Jan, [facility] [place] [facility] [address] [id number] [place] [address] Jan, [facility] [place] [facility] [address] [id number] [place] [address] Jan, [facility] [place] [facility] [address] [id number] [place] [address] Jan, [facility] [place] [facility] [address] [id number] [place] [address] Jan, [facility] [place] [facility] [address] [id number] [place] [address] Jan, [facility] [place] [facility] [address] [id number] [place] [address] Jan, [facility] [place] [facility] [address] [id number] [place] [address] Jan, [facility] [place] [facility] [address] [id number] [place] [address] Jan, [facility] [place] [facility] [address] [id number] [place] [address] December, [facility] [place] [facility] [address] [id number] [place] [address] December, [facility] [place] [facility] [address] [id number] [place] [address] December, [facility] [place] [facility] [address] [id number] [place] [address] December, [facility] [place] [facility] [address] [id number] [place] [address] December, [facility] [place] [facility] [address] [id number] [place] [address] Nov, [facility] [place] [facility] [address] [id number] [place] [address] Nov, [facility] [place] [facility] [address] [id number] [place] [address] Nov, [facility] [place] [facility] [address] [id number] [place] [address] Nov, [facility] [place] [facility] [address] [id number] [place] [address] Nov, [facility] [place] [facility] [address] [id number] [place] [address] Nov, [facility] [place] [facility] [address] [id number] [place] [address] Nov, [facility] [place] [facility] [address] [id number] [place] [address] Nov, [facility] [place] [facility] [address] [id number] [place] [address] Nov, [facility] [place] [facility] [address] [id number] [place] [address] Nov, [facility] [place] [facility] [address] [id number] [place] [address] Oct, [facility] [place] [facility] [address] [id number] [place] [address] Oct, [facility] [place] [facility] [address] [id number] [place] [address] Oct, [facility] [place] [facility] [address] [id number] [place] [address] Oct, [facility] [place] [facility] [address] [id number] [place] [address] Oct, [facility] [place] [facility] [address] [id number] [place] [address] Oct, [facility] [place] [facility] [address] [facility] [id number] [place] [address] Oct, [facility] [place] [facility] [address] [id number] [place] [address] Oct, [facility] [place] [facility] [address] [id number] [place] [address] Oct, [facility] [place] [facility] [address] [id number] [place] [address] Sep, [facility] [place] [facility] [address] [id number] [place] [address] Sep, [facility] [place] [facility] [address] [facility] [id number] [place] [address] Sep, [facility] [place] [facility] [address] [id number] [place] [address] Sep, [facility] [place] [facility] [address] [id number] [place] [address] Sep, [facility] [place] [facility] [address] [id number] [place] [address] Sep, [facility] [place] [facility] [address] [id number] [place] [address] Sep, [facility] [place] [facility] [address] [id number] [place] [address] Aug, [facility] [place] [facility] [address] [id number] [place] [address] Aug, [facility] [place] [facility] [address] [id number] [place] [address] Aug, [facility] [place] [facility] [address] [id number] [place] [address] Aug, [facility] [place] [facility] [address] [id number] [place] [address] Aug, [facility] [place] [facility] [address] [id number] [place] [address] Aug, [facility] [place] [facility] [address] [id number] [place] [address] Aug, [facility] [place] [facility] [address] [id number], [place] [address] Aug, [facility] [place] [facility] [address] [id number] [place] [address] Jul, [facility] [place] [facility] [address] [id number] [place] [address] Jul, [facility] [place] [facility] [address] [id number] [place] [address] Jul, [facility] [place] [facility] [address] [id number], [place] [address] Jul, [facility] [place] [facility] [address] [id number] [place] [address] Jun, [facility] [place] [facility] [address] [id number] [place] [address] Jun, [facility] [place] [facility] [address] [facility] [id number] [place] [address] Jun, [facility] [place] [facility] [address] [id number] [place] [address] May, [facility] [place] [facility] [address] [id number] [place] [address] May, [facility] [place] [facility] [address] [id number] [place] [address] May, [facility] [place] [facility] [address] [facility] [id number] [place] [address] May, [facility] [place] [facility] [address] [id number] [place] [address] May, [facility] [place] [facility] [address] [facility] [id number] [place] [address] May, [facility] [place] [facility] [address] [facility] [id number] [place] [address] May, [facility] [place] [facility] [address] [id number], [place] [address] 25 Apr, 2013 [facility] [place] [facility] [address] [id number], [place] [address] 17 Apr, 2013 [facility] [place] [facility] [address] [id number] [place] [address] 12 Sep2012 [facility] [place] [facility] [address] [facility] [id number] [place] [address] 11 Sep2012 [facility] [place] [facility] [address] [facility] [id number] [place] [address] 05 Sep, 2012 [facility] [place] [facility] [address] [id number] [place] [address] Mar, [facility] [place] [facility] [address] [id number] [place] [address] Mar, [facility] [place] [facility] [address] [id number] [place] [address] Mar, [facility] [place] [facility] [address] [id number] [place] [address] Mar, [facility] [place] [facility] [address] [id number] [place] [address] Feb, [facility] [place] [facility] [address] [id number] [place] [address] Feb, [facility] [place] [facility] [address] [id number] [place] [address] Feb, [facility] [place] [facility] [address] [id number] [place] [address] Feb, [facility] [place] [facility] [address] [id number] [place] [address] Feb, [facility] [place] [facility] [address] [id number] [place] [address] Feb, [facility] [place] [facility] [address] [id number] [place] [address] Feb, [facility] [place] [facility] [address] [id number] [place] [address] Feb, [facility] [place] [facility] [address] [id number] [place] [address] Jan, [facility] [place] [facility] [address] [id number] [place] [address] Jan, [facility] [place] [facility] [address] [id number] [place] [address] Jan, [facility] [place] [facility] [address] [id number] [place] [address] Jan, [facility] [address] [id number] [place] [address] Jan, [facility] [place] [facility] [address] [id number] [place] [address] Jan, [facility] [place] [facility] [address] [id number] [place] [address] Jan, [facility] [place] [facility] [address] [id number] [place] [address] December, [facility] [address] [id number] [place] [address] December, [facility] [place] [facility] [address] [id number] [place] [address] 30 Nov, 2012 [facility] [place] [facility] [address] [id number] [place] [address] Nov, [facility] [place] [facility] [address] [id number] [place] [address] Nov, [facility] [place] [facility] [address] [id number] [place] [address] 24 Nov, 2012 [facility] [place] [facility] [address] [id number] [place] [address] 24 Nov, 2012 [facility] [place] [facility] [address] [id number] [place] [address] Nov, [facility] [place] [facility] [address] [id number] [address] 23 Nov, 2012 [facility] [place] [facility] [address] [id number] [place] [address] 15 Nov, 2012 [facility] [place] [facility] [address] [id number] [place] [address] 11 Nov, 2012 [facility] [place] [facility] [address] [id number] [place] [address] 10 Nov, 2012 [facility] [place] [facility] [address] [id number] [place] [address] 08 Nov, 2012 [facility] [address] [id number] [place] [address] 05 Nov, 2012 [facility] [place] [facility] [address] [id number] [place] [address] Nov, [facility] [address] [id number] [place] [address] Nov, [facility] [place] [facility] [address] [id number] [place] [address] Oct, [facility] [address] [id number] [place] [address] Oct, [facility] [address] [id number] [place] [address] Oct, [facility] [address] [id number] [place] [address] Oct, [facility] [address] [id number] [place] [address] Oct, [facility] [place] [facility] [address] [id number] [place] [address] Oct, [facility] [address] [id number] [place] [address] Oct, [facility] [place] [facility] [address] [id number] [place] [address] Oct, [facility] [place] [facility] [address] [id number] [place] [address] Oct, [facility] [place] [facility] [address] [id number] [place] [address] 08 Sep, 2012 [facility] [place] [facility] [address] [id number] [place] [address] Aug, [facility] [place] [facility] [address] [id number] [place] [address] Aug, [facility] [place] [facility] [address] [id number] [place] [address] 17 Aug, 2012 [facility] [address] [id number] [place] [address] Aug, [facility] [address] [id number] [place] [address] 31 Jul, 2012 [facility] [place] [facility] [address] [id number] [place] [address] 31 Jul, 2012 [facility] [address] [id number] [place] [address] Jul, [facility] [address] [id number] [place] [address] 19 Jul, 2012 [facility] [address] [id number] [place] [address] 17 Jul, 2012 [facility] [address] [id number] [place] [address] 15 Jul, 2012 [facility] [address] [id number] [place] [address] 15 Jul, 2012 [facility] [address] [id number] [place] [address] 14 Jul, 2012 [facility] [address] [id number] [place] [address] 14 Jul, 2012 [facility] [place] [facility] [address] [id number] [place] [address] 22 May, 2012 [facility] [place] [facility] [address] [id number] [place] [address] 22 May, 2012 [facility] [place] [facility] [address] [id number] [place] [address] 16 May, 2012 [facility] [place] [facility] [address] [id number] [place] [address] 16 May, 2012 [facility] [place] [facility] [address] [id number] [place] [address] May, [facility] [place] [facility] [address] [id number] [place] [address] May, [facility] [place] [facility] [address] [id number] [place] [address] 27 Apr, 2012 [facility] [place] [facility] [address] [id number] [place] [address] 27 Apr, 2012 [facility] [place] [facility] [address] [id number] [place] [address] 24 Apr, 2012 [facility] [place] [facility] [address] [id number] [place] [address] 18 Apr, 2012 [facility] [place] [facility] [address] [id number] [place] [address] 14 Apr, 2012 [facility] [place] [facility] [address] [id number] [place] [address] 12 Apr, 2012 [facility] [place] [facility] [address] [id number] [place] [address] Mar, [facility] [place] [facility] [address] [id number] [place] [address] Feb, [facility] [place] [facility] [address] [id number] [place] [address] Feb, [facility] [place] [facility] [address] [id number] [place] [address] Feb, [facility] [place] [facility] [address] [id number] [place] [address] Jan, [facility] [place] [facility] [address] [id number] [place] [address] December, [facility] [place] [facility] [address] [id number] [place] [address] December, [facility] [place] [facility] [address] [id number] [place] [address] December, [facility] [place] [facility] [address] [id number] [place] [id number] December, [facility] [address] [id number] [place] [address] December, [facility] [address] [id number] [place] [address] December, [facility] [address] [id number] [place] [address] Nov, [facility] [address] [id number] [place] [address] Nov, [facility] [address] [id number] [place] [address] 17 Nov, 2011 [facility] [address] [id number] [place] [address] 16 Nov, 2011 [facility] [address] [id number] [place] [address] 16 Nov, 2011 [facility] [address] [id number] [place] [address] 13 Nov, 2011 [facility] [address] [id number] [place] [address] Nov, [facility] [address] [id number] [place] [address] Nov, [facility] [address] [id number] [place] [address] 05 Nov, 2011 [facility] [address] [id number] [place] [address] Nov, [facility] [address] [id number] [place] [address] 30 Oct, 2011 [facility] [address] [id number] [place] [address] 29 Oct, 2011 [facility] [address] [id number] [place] [address] 28 Oct, 2011 [facility] [place] [facility] [address] [id number] [place] [address] 27 Oct, 2011 [facility] [place] [facility] [address] [id number] [place] [address] 26 Oct, 2011 [facility] [place] [facility] [address] [id number] [place] [address] 23 Oct, 2011 [facility] [place] [facility] [address] [id number] [place] [address] 21 Oct, 2011 [facility] [place] [facility] [address] [id number] [place] [address] 19 Oct, 2011 [facility] [place] [facility] [address] [id number] [place] [address] 08 Oct, 2011 [facility] [place] [facility] [address] [id number] [place] [address] 07 Oct, 2011 [facility] [place] [facility] [address] [id number] [place] [address] 06 Oct, 2011 [facility] [place] [facility] [address] [id number] [place] [address] 05 Oct, 2011 [facility] [place] [facility] [address] [id number] [place] [address] 16 Sep, 2011 [facility] [place] [facility] [address] [id number] [place] [address] 14 Sep, 2011 [facility] [place] [facility] [address] [id number] [place] [address] 12 Sep, 2011 [facility] [place] [facility] [address] [id number] [place] [address] 10 Sep, 2011 [facility] [place] [facility] [address] [id number] [place] [address] 06 Sep, 2011 [facility] [place] [facility] [address] [id number] [place] [address] 06 Sep, 2011 [facility] [place] [facility] [address] [id number] [place] [address] 06 Sep, 2011 [facility] [address] [id number] [place] [address] Sep, [facility] [address] [id number] [place] [address] Sep, [facility] [address] [id number] [place] [address] Aug, [facility] [address] [id number] [place] [address] Aug, [facility] [address] [id number] [place] [address] Aug, [facility] [address] [id number] [place] [address] Aug, [facility] [address] [id number] [place] [address] Aug, [facility] [address] [id number] [place] [address] Aug, [facility] [address] [id number] [place] [address] Aug, [facility] [address] [id number] [place] [address] 24 Jul, 2011 [facility] [address] [id number] [place] [address] Jul, [facility] [address] [id number] [place] [address] Jul, [facility] [place] [facility] [address] [id number] [place] [address] 14 Jul, 2011 [facility] [address] [id number] [place] [address] 30 Jun, 2011 [facility] [address] [id number] [place] [address] Jun, [facility] [address] [facility] [id number] [address] May, [facility] [address] [id number], [place] [address] Mar, [facility] [address] [facility] [id number], [place] [address] Jan, [facility] [address] [id number], [place] [address] May, IMMUNIZATIONS No Known Immunizations SOCIAL HISTORY [...]
--- OUTSIDE RECORDS SUMMARY | 2019-03-23 07:05 | XMS REPORT ---
Author Author Sammy, [facility] Organization [facility] Address [address], [place] [id number] Care Team Providers Care Document Review Specialist Name Role Phone [facility] Unavailable PROBLEMS Type Condition ICD9-CM Code [id number] Code Onset Dates Condition Status SNOMED Code Problem Other postablative hypothyroidism 244.1 Active 028933369 Problem Major depressive disorder, recurrent episode, severe, without mention of psychotic behavior 296.33 Active [id number] ALLERGIES No Information ENCOUNTERS Encounter Location Date Diagnosis [place] [id number] [place] [address] Sep, Unspecified mood [affective] disorder [id number] [place] [address] Aug, Unspecified mood [affective] disorder [id number] [place] [address] Jul, Unspecified mood [affective] disorder [place] [id number] [place] [address] Jun, Unspecified mood [affective] disorder [id number] [place] [address] Mar, Affective disorder 296.90 [facility] [id number] [place] [address] Mar, [place] [id number] [place] [address] Feb, Nexplanon removal V25.43 and Initiation of OCP (BCP) V25.01 [facility] [address] [address] Feb, Episodic mood disorder 296.90 [facility] [address] [facility] [id number] [address] Feb, [facility] [address] [address] Feb, Routine gynecological examination V72.31 ; Pap test, as part of routine gynecological examination V76.2 ; Breast cancer screening V76.10 ; Nexplanon in place V45.52 and Rash 782.1 [facility] [address] [facility] [id number] [address] Jan, Episodic mood disorder 296.90 [facility] [address] [id number] [address] Jan, [facility] [address] [address] December, Episodic mood disorder 296.90 [facility] [address] [address] December, [facility] [address] [address] December, [facility] [address] [address] December, [facility] [address] [address] Nov, [facility] [address] [address] Nov, [facility] [address] [id number] [address] Nov, [facility] [address] [id number] [address] Oct, [facility] [address] [address] Oct, [facility] [id number] [place] [address] Oct, [facility] [place] [facility] [address] [id number] [place] [address] Oct, [facility] [place] [facility] [address] [id number] [place] [address] Oct, [facility] [place] [facility] [address] [id number] [place] [address] Oct, [facility] [place] [facility] [address] [id number] [place] [address] Sep, [facility] [place] [facility] [address] [id number] [place] [address] Sep, [facility] [place] [facility] [address] [id number] [place] [address] Sep, [facility] [place] [facility] [address] [id number] [place] [address] Sep, [facility] [place] [facility] [address] [id number] [place] [address] Sep, [facility] [place] [facility] [address] [id number] [place] [address] Sep, [facility] [place] [facility] [address] [id number] [place] [address] Aug, [facility] [place] [facility] [address] [id number] [place] [address] Aug, [facility] [place] [facility] [address] [id number] [place] [address] Aug, [facility] [place] [facility] [address] [id number] [place] [address] Aug, [facility] [place] [facility] [address] [id number] [place] [address] Aug, [facility] [place] [facility] [address] [id number] [place] [address] Aug, [facility] [place] [facility] [address] [id number] [place] [address] Aug, [facility] [place] [facility] [address] [id number] [place] [address] Aug, [facility] [place] [facility] [address] [id number] [place] [address] Aug, [facility] [place] [facility] [address] [id number] [place] [address] Aug, [facility] [place] [facility] [address] [id number] [place] [address] Aug, [facility] [place] [facility] [address] [id number] [place] [address] Aug, [facility] [place] [facility] [address] [id number] [place] [address] Aug, [facility] [place] [facility] [address] [id number] [place] [address] Aug, [facility] [place] [facility] [address] [id number] [place] [address] Aug, [facility] [place] [facility] [address] [id number] [place] [address] Aug, [facility] [place] [facility] [address] [id number], [place] [address] 30 Jul, 2014 [facility] [place] [facility] [address] [id number], [place] [address] Jul, [facility] [place] [facility] [address] [id number] [place] [address] Jul, [facility] [place] [facility] [address] [id number] [place] [address] Jul, [facility] [place] [facility] [address] [id number] [place] [address] Jul, [facility] [place] [facility] [address] [id number] [place] [address] 11 Jul, 2014 [facility] [place] [facility] [address] [id number] [place] [address] Jul, [facility] [place] [facility] [address] [id number] [place] [address] Jul, [facility] [place] [facility] [address] [id number] [place] [address] Jul, [facility] [place] [facility] [address] [id number] [place] [address] 05 Jul, 2014 [facility] [place] [facility] [address] [id number] [place] [address] 05 Jul, 2014 [facility] [place] [facility] [address] [id number] [place] [address] Jul, [facility] [place] [facility] [address] [id number] [place] [address] Jul, [facility] [place] [facility] [address] [id number] [place] [address] Jun, [facility] [place] [facility] [address] [id number] [place] [address] Jun, [facility] [place] [facility] [address] [facility] [id number] [place] [address] Jun, [facility] [place] [facility] [address] [id number] [place] [address] Jun, [facility] [place] [facility] [address] [id number] [place] [address] Jun, [facility] [place] [facility] [address] [id number] [place] [address] Jun, [facility] [place] [facility] [address] [id number] [place] [address] Jun, [facility] [place] [facility] [address] [id number] [place] [address] Jun, [facility] [place] [facility] [address] [id number] [place] [address] Jun, [facility] [place] [facility] [address] [id number] [place] [address] Jun, [facility] [place] [facility] [address] [id number] [place] [address] Jun, [facility] [place] [facility] [address] [id number] [place] [address] Jun, [facility] [place] [facility] [address] [id number] [place] [address] Jun, [facility] [place] [facility] [address] [id number] [place] [address] Jun, [facility] [place] [facility] [address] [id number] [place] [address] May, [facility] [place] [facility] [address] [id number] [place] [address] May, [facility] [place] [facility] [address] [id number] [place] [address] May, [facility] [place] [facility] [address] [id number] [place] [address] May, [facility] [place] [facility] [address] [id number] [place] [address] May, [facility] [place] [facility] [address] [id number] [place] [address] May, [facility] [place] [facility] [address] [id number] [place] [address] May, [facility] [place] [facility] [address] [id number] [place] [address] May, [facility] [place] [facility] [address] [id number] [place] [address] May, [facility] [place] [facility] [address] [id number] [place] [address] 10 May, 2013 [facility] [place] [facility] [address] [id number] [place] [address] 30 Sep, 2013 [facility] [place] [facility] [address] [id number] [place] [address] 30 Sep, 2013 [facility] [place] [facility] [address] [id number] [place] [address] 19 Sep, 2013 [facility] [place] [facility] [address] [id number] [place] [address] 19 Sep, 2013 [facility] [place] [facility] [address] [id number] [place] [address] 18 Sep, 2013 [facility] [place] [facility] [address] [id number] [place] [address] 18 Sep, 2013 [facility] [place] [facility] [address] [id number] [place] [address] 18 Sep, 2013 [facility] [place] [facility] [address] [id number] [place] [address] 18 Sep, 2013 [facility] [place] [facility] [address] [id number] [place] [address] 16 Sep, 2013 [facility] [place] [facility] [address] [id number] [place] [address] 16 Sep, 2013 [facility] [place] [facility] [address] [id number] [place] [address] 08 Sep, 2013 [facility] [place] [facility] [address] [id number] [address] 08 Sep, 2013 [facility] [place] [facility] [address] [id number] [place] [address] 08 Sep, 2013 [facility] [place] [facility] [address] [id number] [place] [address] 08 Sep, 2013 [facility] [place] [facility] [address] [id number] [place] [address] 04 Sep, 2013 [facility] [place] [facility] [address] [id number] [place] [address] Apr, [facility] [place] [facility] [address] [id number] [place] [address] Mar, [facility] [place] [facility] [address] [id number] [place] [address] Mar, [facility] [place] [facility] [address] [id number] [place] [address] Mar, [facility] [place] [facility] [address] [id number] [place] [address] Jan, [facility] [place] [facility] [address] [id number] [place] [address] Jan, [facility] [place] [facility] [address] [id number] [place] [address] Jan, [facility] [place] [facility] [address] [id number] [place] [address] Jan, [facility] [place] [facility] [address] [id number] [place] [address] Jan, [facility] [place] [facility] [address] [id number] [place] [address] Jan, [facility] [place] [facility] [address] [id number] [place] [address] 16 Jan, 2014 [facility] [place] [facility] [address] [id number] [place] [address] Jan, [facility] [place] [facility] [address] [id number] [place] [address] Jan, [facility] [place] [facility] [address] [id number] [place] [address] Jan, [facility] [place] [facility] [address] [id number] [place] [address] Jan, [facility] [place] [facility] [address] [id number] [place] [address] Jan, [facility] [place] [facility] [address] [id number] [place] [address] Jan, [facility] [place] [facility] [address] [id number] [place] [address] Jan, [facility] [place] [facility] [address] [id number] [place] [address] Jan, [facility] [place] [facility] [address] [id number] [place] [address] Jan, [facility] [place] [facility] [address] [id number] [place] [address] December, [facility] [place] [facility] [address] [id number] [place] [address] December, [facility] [place] [facility] [address] [id number] [place] [address] December, [facility] [place] [facility] [address] [id number] [place] [address] December, [facility] [place] [facility] [address] [id number] [place] [address] December, [facility] [place] [facility] [address] [id number] [place] [address] Nov, [facility] [place] [facility] [address] [id number] [place] [address] Nov, [facility] [place] [facility] [address] [id number] [place] [address] Nov, [facility] [place] [facility] [address] [id number] [place] [address] Nov, [facility] [place] [facility] [address] [id number] [place] [address] Nov, [facility] [place] [facility] [address] [id number] [place] [address] Nov, [facility] [place] [facility] [address] [id number] [place] [address] Nov, [facility] [place] [facility] [address] [id number] [place] [address] Nov, [facility] [place] [facility] [address] [id number] [place] [address] Nov, [facility] [place] [facility] [address] [id number] [place] [address] Nov, [facility] [place] [facility] [address] [id number] [place] [address] Oct, [facility] [place] [facility] [address] [id number] [place] [address] Oct, [facility] [place] [facility] [address] [id number] [place] [address] Oct, [facility] [place] [facility] [address] [id number] [place] [address] Oct, [facility] [place] [facility] [address] [id number] [place] [address] Oct, [facility] [place] [facility] [address] [id number] [place] [address] Oct, [facility] [place] [facility] [address] [facility] [id number] [place] [address] Oct, [facility] [place] [facility] [address] [id number] [place] [address] Oct, [facility] [place] [facility] [address] [id number] [place] [address] Oct, [facility] [place] [facility] [address] [id number] [place] [address] Sep, [facility] [place] [facility] [address] [id number] [place] [address] Sep, [facility] [place] [facility] [address] [facility] [id number] [place] [address] Sep, [facility] [place] [facility] [address] [id number] [place] [address] Sep, [facility] [place] [facility] [address] [id number] [place] [address] Sep, [facility] [place] [facility] [address] [id number] [place] [address] Sep, [facility] [place] [facility] [address] [id number] [place] [address] Sep, [facility] [place] [facility] [address] [id number] [place] [address] Aug, [facility] [place] [facility] [address] [id number] [place] [address] Aug, [facility] [place] [facility] [address] [id number] [place] [address] Aug, [facility] [place] [facility] [address] [id number] [place] [address] Aug, [facility] [place] [facility] [address] [id number] [place] [address] Aug, [facility] [place] [facility] [address] [id number] [place] [address] Aug, [facility] [place] [facility] [address] [id number] [place] [address] Aug, [facility] [place] [facility] [address] [id number], [place] [address] Aug, [facility] [place] [facility] [address] [id number] [place] [address] Jul, [facility] [place] [facility] [address] [id number] [place] [address] Jul, [facility] [place] [facility] [address] [id number] [place] [address] Jul, [facility] [place] [facility] [address] [id number], [place] [address] Jul, [facility] [place] [facility] [address] [id number] [place] [address] Jun, [facility] [place] [facility] [address] [id number] [place] [address] Jun, [facility] [place] [facility] [address] [facility] [id number] [place] [address] Jun, [facility] [place] [facility] [address] [id number] [place] [address] May, [facility] [place] [facility] [address] [id number] [place] [address] May, [facility] [place] [facility] [address] [id number] [place] [address] May, [facility] [place] [facility] [address] [facility] [id number] [place] [address] May, [facility] [place] [facility] [address] [id number] [place] [address] May, [facility] [place] [facility] [address] [facility] [id number] [place] [address] May, [facility] [place] [facility] [address] [facility] [id number] [place] [address] May, [facility] [place] [facility] [address] [id number], [place] [address] 25 Apr, 2013 [facility] [place] [facility] [address] [id number] [address] 17 Apr, 2013 [facility] [place] [facility] [address] [id number] [place] [address] 12 Sep2012 [facility] [place] [facility] [address] [facility] [id number] [place] [address] 11 Sep2012 [facility] [place] [facility] [address] [facility] [id number] [place] [address] 05 Sep, 2012 [facility] [place] [facility] [address] [id number] [place] [address] Mar, [facility] [place] [facility] [address] [id number] [place] [address] Mar, [facility] [place] [facility] [address] [id number] [place] [address] Mar, [facility] [place] [facility] [address] [id number] [place] [address] Mar, [facility] [place] [facility] [address] [id number] [place] [address] Feb, [facility] [place] [facility] [address] [id number] [place] [address] Feb, [facility] [place] [facility] [address] [id number] [place] [address] Feb, [facility] [place] [facility] [address] [id number] [place] [address] Feb, [facility] [place] [facility] [address] [id number] [place] [address] Feb, [facility] [place] [facility] [address] [id number] [place] [address] Feb, [facility] [place] [facility] [address] [id number] [place] [address] Feb, [facility] [place] [facility] [address] [id number] [place] [address] Feb, [facility] [place] [facility] [address] [id number] [place] [address] Jan, [facility] [place] [facility] [address] [id number] [place] [address] Jan, [facility] [place] [facility] [address] [id number] [place] [address] Jan, [facility] [place] [facility] [address] [id number] [place] [address] Jan, [facility] [address] [id number] [place] [address] Jan, [facility] [place] [facility] [address] [id number] [place] [address] Jan, [facility] [place] [facility] [address] [id number] [place] [address] Jan, [facility] [place] [facility] [address] [id number] [place] [address] December, [facility] [address] [id number] [place] [address] December, [facility] [place] [facility] [address] [id number] [place] [address] 30 Nov, 2012 [facility] [place] [facility] [address] [id number] [place] [address] Nov, [facility] [place] [facility] [address] [id number] [place] [address] Nov, [facility] [place] [facility] [address] [id number] [place] [address] 24 Nov, 2012 [facility] [place] [facility] [address] [id number] [place] [address] 24 Nov, 2012 [facility] [place] [facility] [address] [id number] [place] [address] Nov, [facility] [place] [facility] [address] [id number] [address] 23 Nov, 2012 [facility] [place] [facility] [address] [id number] [place] [address] 15 Nov, 2012 [facility] [place] [facility] [address] [id number] [place] [address] 11 Nov, 2012 [facility] [place] [facility] [address] [id number] [place] [address] 10 Nov, 2012 [facility] [place] [facility] [address] [id number] [place] [address] 08 Nov, 2012 [facility] [address] [id number] [place] [address] 05 Nov, 2012 [facility] [place] [facility] [address] [id number] [place] [address] Nov, [facility] [address] [id number] [place] [address] Nov, [facility] [place] [facility] [address] [id number] [place] [address] Oct, [facility] [address] [id number] [place] [address] Oct, [facility] [address] [id number] [place] [address] Oct, [facility] [address] [id number] [place] [address] Oct, [facility] [address] [id number] [place] [address] Oct, [facility] [place] [facility] [address] [id number] [place] [address] Oct, [facility] [address] [id number] [place] [address] Oct, [facility] [place] [facility] [address] [id number] [place] [address] Oct, [facility] [place] [facility] [address] [id number] [place] [address] Oct, [facility] [place] [facility] [address] [id number] [place] [address] 08 Sep, 2012 [facility] [place] [facility] [address] [id number] [place] [address] Aug, [facility] [place] [facility] [address] [id number] [place] [address] Aug, [facility] [place] [facility] [address] [id number] [place] [address] 17 Aug, 2012 [facility] [address] [id number] [place] [address] Aug, [facility] [address] [id number] [place] [address] 31 Jul, 2012 [facility] [place] [facility] [address] [id number] [place] [address] 31 Jul, 2012 [facility] [address] [id number] [place] [address] Jul, [facility] [address] [id number] [place] [address] 19 Jul, 2012 [facility] [address] [id number] [place] [address] 17 Jul, 2012 [facility] [address] [id number] [place] [address] 15 Jul, 2012 [facility] [address] [id number] [place] [address] 15 Jul, 2012 [facility] [address] [id number] [place] [address] 14 Jul, 2012 [facility] [address] [id number] [place] [address] 14 Jul, 2012 [facility] [place] [facility] [address] [id number] [place] [address] 22 May, 2012 [facility] [place] [facility] [address] [id number] [place] [address] 22 May, 2012 [facility] [place] [facility] [address] [id number] [place] [address] 16 May, 2012 [facility] [place] [facility] [address] [id number] [place] [address] 16 May, 2012 [facility] [place] [facility] [address] [id number] [place] [address] May, [facility] [place] [facility] [address] [id number] [place] [address] May, [facility] [place] [facility] [address] [id number] [place] [address] 27 Apr, 2012 [facility] [place] [facility] [address] [id number] [place] [address] 27 Apr, 2012 [facility] [place] [facility] [address] [id number] [place] [address] 24 Apr, 2012 [facility] [place] [facility] [address] [id number] [place] [address] 18 Apr, 2012 [facility] [place] [facility] [address] [id number] [place] [address] 14 Apr, 2012 [facility] [place] [facility] [address] [id number] [place] [address] 12 Apr, 2012 [facility] [place] [facility] [address] [id number] [place] [address] Mar, [facility] [place] [facility] [address] [id number] [place] [address] Feb, [facility] [place] [facility] [address] [id number] [place] [address] Feb, [facility] [place] [facility] [address] [id number] [place] [address] Feb, [facility] [place] [facility] [address] [id number] [place] [address] Jan, [facility] [place] [facility] [address] [id number] [place] [address] December, [facility] [place] [facility] [address] [id number] [place] [address] December, [facility] [place] [facility] [address] [id number] [place] [address] December, [facility] [place] [facility] [address] [id number] [place] [address] December, [facility] [address] [id number] [place] [address] December, [facility] [address] [id number] [place] [address] December, [facility] [address] [id number] [place] [address] Nov, [facility] [address] [id number] [place] [address] Nov, [facility] [address] [id number] [place] [address] 17 Nov, 2011 [facility] [address] [id number] [place] [address] 16 Nov, 2011 [facility] [address] [id number] [place] [address] 16 Nov, 2011 [facility] [address] [id number] [place] [address] 13 Nov, 2011 [facility] [address] [id number] [place] [address] Nov, [facility] [address] [id number] [place] [address] Nov, [facility] [address] [id number] [place] [address] 05 Nov, 2011 [facility] [address] [id number] [place] [address] Nov, [facility] [address] [id number] [place] [address] 30 Oct, 2011 [facility] [address] [id number] [place] [address] 29 Oct, 2011 [facility] [address] [id number] [place] [address] 28 Oct, 2011 [facility] [place] [facility] [address] [id number] [place] [address] 27 Oct, 2011 [facility] [place] [facility] [address] [id number] [place] [address] 26 Oct, 2011 [facility] [place] [facility] [address] [id number] [place] [address] 23 Oct, 2011 [facility] [place] [facility] [address] [id number] [place] [address] 21 Oct, 2011 [facility] [place] [facility] [address] [id number] [place] [address] 19 Oct, 2011 [facility] [place] [facility] [address] [id number] [place] [address] 08 Oct, 2011 [facility] [place] [facility] [address] [id number] [place] [address] 07 Oct, 2011 [facility] [place] [facility] [address] [id number] [place] [address] 06 Oct, 2011 [facility] [place] [facility] [address] [id number] [place] [address] 05 Oct, 2011 [facility] [place] [facility] [address] [id number] [place] [address] 16 Sep, 2011 [facility] [place] [facility] [address] [id number] [place] [address] 14 Sep, 2011 [facility] [place] [facility] [address] [id number] [place] [address] 12 Sep, 2011 [facility] [place] [facility] [address] [id number] [place] [address] 10 Sep, 2011 [facility] [place] [facility] [address] [id number] [place] [address] 06 Sep, 2011 [facility] [place] [facility] [address] [id number] [place] [address] 06 Sep, 2011 [facility] [place] [facility] [address] [id number] [place] [address] 06 Sep, 2011 [facility] [address] [id number] [place] [address] Sep, [facility] [address] [id number] [place] [address] Sep, [facility] [address] [id number] [place] [address] Aug, [facility] [address] [id number] [place] [address] Aug, [facility] [address] [id number] [place] [address] Aug, [facility] [address] [id number] [place] [address] Aug, [facility] [address] [id number] [place] [address] Aug, [facility] [address] [id number] [place] [address] Aug, [facility] [address] [id number] [place] [address] Aug, [facility] [address] [id number] [place] [address] 24 Jul, 2011 [facility] [address] [id number] [place] [address] Jul, [facility] [address] [id number] [place] [address] Jul, [facility] [place] [facility] [address] [id number] [place] [address] 14 Jul, 2011 [facility] [address] [id number] [place] [address] 30 Jun, 2011 [facility] [address] [id number] [place] [address] Jun, [facility] [address] [id number] [address] May, [facility] [address] [id number], [place] [address] Mar, [facility] [address] [id number] [address] Jan, [facility] [address] [id number], [place] [address] May, IMMUNIZATIONS No Known Immunizations SOCIAL HISTORY Never Assessed REASON FOR VISIT PLAN OF CARE VITAL SIGNS MEDICATIONS Unknown Medications RESULTS No Results PROCEDURES Procedure Date Ordered Result Body Site CARE COORDINATION Jul 28, 2014 COMPREHENSIVE CARE MANAGEMENT Jul 28, 2014 INSTRUCTIONS MEDICATIONS ADMINISTERED No Known Medications MEDICAL (GENERAL) HISTORY Type Description Date Medical History hypertension Medical History asthma Medical History Hypothyroidism Medical History Arthritis Medical History MRSA Surgical History ENT surgery Surgical History carpal tunnel release (L); ulnar nerve release (L) 2012
--- OUTSIDE RECORDS SUMMARY | 2019-03-23 07:06 | XMS REPORT ---
Author Author Migration, Doctor Organization [facility] Address Unknown Phone Unavailable Care Team Providers Care Turbine Technician Name Role Phone Migration, Doctor Unavailable Unavailable PROBLEMS Type Condition ICD9-CM Code [id number] Code Onset Dates Condition Status SNOMED Code Problem Other postablative hypothyroidism 244.1 Active 753270813 Problem Major depressive disorder, recurrent episode, severe, without mention of psychotic behavior 296.33 Active [id number] ALLERGIES No Information ENCOUNTERS Encounter Location Date Diagnosis [place] [id number] [place] [address] Sep, Unspecified mood [affective] disorder [place] [id number] [place] [address] Aug, Unspecified mood [affective] disorder [place] [id number] [place] [address] Jul, Unspecified mood [affective] disorder [address] [place] [id number] [place] [address] Jun, Unspecified mood [affective] disorder [place] [id number] [place] [address] Mar, Affective disorder 296.90 [place] [id number] [place] [address] Mar, [place] [id number] [place] [address] Feb, Nexplanon removal V25.43 and Initiation of OCP (BCP) V25.01 [place] [id number] [place] [address] Feb, Episodic mood disorder 296.90 [place] [id number] [place] [address] [place] [address] Feb, [facility] [address] [address] Feb, Routine gynecological examination V72.31 ; Pap test, as part of routine gynecological examination V76.2 ; Breast cancer screening V76.10 ; Nexplanon in place V45.52 and Rash 782.1 [facility] [address] [address] Jan, Episodic mood disorder 296.90 [facility] [address] [address] Jan, [facility] [address] [address] December, Episodic mood disorder 296.90 [facility] [address] [address] December, [facility] [address] [address] December, [facility] [address] [address] December, [facility] [id number] [address] Nov, [facility] [address] [address] Nov, [facility] [address] [address] Nov, [facility] [address] [address] Oct, [facility] [address] [address] Oct, [facility] [id number] [address] Oct, [facility] [id number] [place] [address] Oct, [facility] [place] [facility] [address] [id number] [place] [address] Oct, [facility] [place] [facility] [address] [id number] [place] [address] Oct, [facility] [place] [facility] [address] [id number] [place] [address] Sep, 2014 [facility] [place] [facility] [address] [id number] [place] [address] Sep, 2014 [facility] [place] [facility] [address] [id number] [place] [address] Sep, 2014 [facility] [place] [facility] [address] [id number] [place] [address] Sep, 2014 [facility] [place] [facility] [address] [id number] [place] [address] Sep, [facility] [place] [facility] [address] [id number] [place] [address] Sep, [facility] [place] [facility] [address] [id number] [place] [address] Aug, [facility] [place] [facility] [address] [id number] [place] [address] Aug, [facility] [place] [facility] [address] [id number] [place] [address] Aug, [facility] [place] [facility] [address] [id number] [place] [address] Aug, [facility] [place] [facility] [address] [id number] [place] [address] Aug, [facility] [place] [facility] [address] [id number] [place] [address] Aug, [facility] [place] [facility] [address] [id number] [place] [address] Aug, [facility] [place] [facility] [address] [id number] [place] [address] 14 Aug, 2014 [facility] [place] [facility] [address] [id number] [place] [address] Aug, [facility] [place] [facility] [address] [id number] [place] [address] Aug, [facility] [place] [facility] [address] [id number] [place] [address] Aug, [facility] [place] [facility] [address] [id number] [place] [address] Aug, [facility] [place] [facility] [address] [id number] [place] [address] Aug, [facility] [place] [facility] [address] [id number] [place] [address] Aug, [facility] [place] [facility] [address] [id number] [place] [address] Aug, [facility] [place] [facility] [address] [id number] [place] [address] Aug, [facility] [place] [facility] [address] [id number] [place] [address] Jul, [facility] [place] [facility] [address] [id number] [address] 15 Jul, 2014 [facility] [place] [facility] [address] [id number] [place] [address] 15 Jul, 2014 [facility] [place] [facility] [address] [id number] [place] [address] Jul, [facility] [place] [facility] [address] [id number] [place] [address] Jul, [facility] [place] [facility] [address] [id number] [place] [address] Jul, [facility] [place] [facility] [address] [id number] [place] [address] 11 Jul, 2014 [facility] [place] [facility] [address] [id number] [place] [address] Jul, [facility] [place] [facility] [address] [id number] [place] [address] Jul, [facility] [place] [facility] [address] [id number] [place] [address] 05 Jul, 2014 [facility] [place] [facility] [address] [id number] [place] [address] 05 Jul, 2014 [facility] [place] [facility] [address] [id number] [place] [address] Jul, [facility] [place] [facility] [address] [id number] [place] [address] Jul, [facility] [place] [facility] [address] [id number] [place] [address] Jun, [facility] [place] [facility] [address] [id number] [place] [address] Jun, [facility] [place] [facility] [address] [id number] [place] [address] Jun, [facility] [place] [facility] [address] [facility] [id number] [place] [address] Jun, [facility] [place] [facility] [address] [id number] [place] [address] Jun, [facility] [place] [facility] [address] [id number] [place] [address] Jun, [facility] [place] [facility] [address] [id number] [place] [address] Jun, [facility] [place] [facility] [address] [id number] [place] [address] Jun, [facility] [place] [facility] [address] [id number] [address] Jun, [facility] [place] [facility] [address] [id number] [place] [address] Jun, [facility] [place] [facility] [address] [id number] [place] [address] Jun, [facility] [place] [facility] [address] [id number] [place] [address] Jun, [facility] [place] [facility] [address] [id number] [place] [address] Jun, [facility] [place] [facility] [address] [id number] [place] [address] Jun, [facility] [place] [facility] [address] [id number] [place] [address] May, [facility] [place] [facility] [address] [id number] [place] [address] May, [facility] [place] [facility] [address] [id number] [place] [address] May, [facility] [place] [facility] [address] [id number] [place] [address] May, [facility] [place] [facility] [address] [id number] [place] [address] May, [facility] [place] [facility] [address] [id number] [place] [address] May, [facility] [place] [facility] [address] [id number] [place] [address] May, [facility] [place] [facility] [address] [id number] [place] [address] May, [facility] [place] [facility] [address] [id number] [place] [address] May, [facility] [place] [facility] [address] [id number] [place] [address] May, [facility] [place] [facility] [address] [id number] [place] [address] 30 Sep, 2013 [facility] [place] [facility] [address] [id number] [place] [address] 30 Sep, 2013 [facility] [place] [facility] [address] [id number] [place] [address] 19 Sep, 2013 [facility] [place] [facility] [address] [id number] [place] [address] 19 Sep, 2013 [facility] [place] [facility] [address] [id number] [place] [address] 18 Sep, 2013 [facility] [place] [facility] [address] [id number] [place] [address] 18 Sep, 2013 [facility] [place] [facility] [address] [id number] [place] [address] 18 Sep, 2013 [facility] [place] [facility] [address] [id number] [place] [address] 18 Sep, 2013 [facility] [place] [facility] [address] [id number] [place] [address] 16 Sep, 2013 [facility] [place] [facility] [address] [id number] [place] [address] 16 Sep, 2013 [facility] [place] [facility] [address] [id number] [place] [address] 08 Sep, 2013 [facility] [place] [facility] [address] [id number] [place] [address] 08 Sep, 2013 [facility] [place] [facility] [address] [id number] [place] [address] 08 Sep, 2013 [facility] [place] [facility] [address] [id number] [place] [address] 08 Sep, 2013 [facility] [place] [facility] [address] [id number] [place] [address] 04 Sep, 2013 [facility] [place] [facility] [address] [id number] [place] [address] 04 Sep, 2013 [facility] [place] [facility] [address] [id number] [place] [address] Mar, [facility] [place] [facility] [address] [id number] [place] [address] Mar, [facility] [place] [facility] [address] [id number] [place] [address] Mar, [facility] [place] [facility] [address] [id number] [place] [address] Jan, [facility] [place] [facility] [address] [id number] [place] [address] 23 Jan, 2014 [facility] [place] [facility] [address] [id number] [place] [address] Jan, [facility] [place] [facility] [address] [id number] [place] [address] 18 Jan, 2014 [facility] [place] [facility] [address] [id number] [place] [address] 16 Jan, 2014 [facility] [place] [facility] [address] [id number] [place] [address] 16 Jan, 2014 [facility] [place] [facility] [address] [id number] [place] [address] 16 Jan, 2014 [facility] [place] [facility] [address] [id number] [place] [address] 16 Jan, 2014 [facility] [place] [facility] [address] [id number] [place] [address] Jan, [facility] [place] [facility] [address] [id number] [place] [address] Jan, [facility] [place] [facility] [address] [id number] [place] [address] Jan, [facility] [place] [facility] [address] [id number] [place] [address] 11 Jan, 2014 [facility] [place] [facility] [address] [id number] [place] [address] Jan, [facility] [place] [facility] [address] [id number] [place] [address] Jan, [facility] [place] [facility] [address] [id number] [place] [address] Jan, [facility] [place] [facility] [address] [id number] [place] [address] Jan, [facility] [place] [facility] [address] [id number] [place] [address] December, [facility] [place] [facility] [address] [id number] [place] [address] December, [facility] [place] [facility] [address] [id number] [place] [address] December, [facility] [place] [facility] [address] [id number] [place] [address] December, [facility] [place] [facility] [address] [id number] [place] [address] December, [facility] [place] [facility] [address] [id number] [place] [address] Nov, [facility] [place] [facility] [address] [id number] [place] [address] Nov, [facility] [place] [facility] [address] [id number] [place] [address] Nov, [facility] [place] [facility] [address] [id number] [place] [address] Nov, [facility] [place] [facility] [address] [id number] [place] [address] Nov, [facility] [place] [facility] [address] [id number] [place] [address] Nov, [facility] [place] [facility] [address] [id number] [place] [address] Nov, [facility] [place] [facility] [address] [id number] [place] [address] 24 Nov, 2013 [facility] [place] [facility] [address] [id number] [place] [address] Nov, [facility] [place] [facility] [address] [id number] [place] [address] Nov, [facility] [place] [facility] [address] [facility] [id number] [place] [address] Oct, [facility] [place] [facility] [address] [id number] [place] [address] Oct, [facility] [place] [facility] [address] [id number] [place] [address] Oct, [facility] [place] [facility] [address] [id number] [place] [address] Oct, [facility] [place] [facility] [address] [facility] [id number] [place] [address] Oct, [facility] [place] [facility] [address] [id number] [place] [address] Oct, [facility] [place] [facility] [address] [id number] [place] [address] Oct, [facility] [place] [facility] [address] [facility] [id number] [place] [address] Oct, [facility] [place] [facility] [address] [id number] [place] [address] Oct, [facility] [place] [facility] [address] [id number] [place] [address] Sep, [facility] [place] [facility] [address] [id number] [place] [address] Sep, [facility] [place] [facility] [address] [id number] [place] [address] Sep, [facility] [place] [facility] [address] [facility] [id number] [place] [address] Sep, [facility] [place] [facility] [address] [id number] [place] [address] Sep, [facility] [place] [facility] [address] [id number] [place] [address] Sep, [facility] [place] [facility] [address] [id number] [place] [address] Sep, [facility] [place] [facility] [address] [id number] [place] [address] Aug, [facility] [place] [facility] [address] [id number] [place] [address] Aug, [facility] [place] [facility] [address] [id number] [place] [address] Aug, [facility] [place] [facility] [address] [id number] [place] [address] Aug, [facility] [place] [facility] [address] [id number] [place] [address] Aug, [facility] [place] [facility] [address] [id number] [place] [address] Aug, [facility] [place] [facility] [address] [id number] [place] [address] Aug, [facility] [place] [facility] [address] [id number] [place] [address] Aug, [facility] [place] [facility] [address] [id number] [place] [address] Jul, [facility] [place] [facility] [address] [id number] [place] [address] Jul, [facility] [place] [facility] [address] [id number] [place] [address] Jul, [facility] [place] [facility] [address] [id number] [place] [address] Jul, [facility] [place] [facility] [address] [id number] [place] [address] Jun, [facility] [place] [facility] [address] [id number] [place] [address] Jun, [facility] [place] [facility] [address] [id number] [place] [address] Jun, [facility] [place] [facility] [address] [id number] [place] [address] May, [facility] [place] [facility] [address] [id number] [place] [address] May, [facility] [place] [facility] [address] [id number] [place] [address] May, [facility] [place] [facility] [address] [id number] [place] [address] May, [facility] [place] [facility] [address] [id number] [place] [address] May, [facility] [place] [facility] [address] [id number] [place] [address] May, [facility] [place] [facility] [address] [facility] [id number] [place] [address] May, [facility] [place] [facility] [address] [facility] [id number] [place] [address] Apr, [facility] [place] [facility] [address] [id number] [place] [address] 17 Apr, 2013 [facility] [place] [facility] [address] [id number] [place] [address] 12 Apr, 2013 [facility] [place] [facility] [address] [id number] [place] [address] 11 Apr, 2013 [facility] [place] [facility] [address] [facility] [id number] [place] [address] 05 Apr, 2013 [facility] [place] [facility] [address] [facility] [id number] [place] [address] Mar, [facility] [place] [facility] [address] [id number] [place] [address] Mar, [facility] [place] [facility] [address] [id number] [place] [address] Mar, [facility] [place] [facility] [address] [id number] [place] [address] Mar, [facility] [place] [facility] [address] [id number] [place] [address] Feb, [facility] [place] [facility] [address] [id number] [place] [address] Feb, [facility] [place] [facility] [address] [id number] [place] [address] Feb, [facility] [place] [facility] [address] [id number] [place] [address] Feb, [facility] [place] [facility] [address] [id number] [place] [address] Feb, [facility] [place] [facility] [address] [id number] [place] [address] Feb, [facility] [place] [facility] [address] [id number] [place] [address] Feb, [facility] [place] [facility] [address] [id number] [place] [address] Feb, [facility] [place] [facility] [address] [id number] [place] [address] Jan, [facility] [place] [facility] [address] [id number] [place] [address] Jan, [facility] [place] [facility] [address] [id number] [place] [address] Jan, [facility] [place] [facility] [address] [id number] [place] [address] Jan, [facility] [place] [facility] [address] [id number] [place] [address] Jan, [facility] [address] [id number] [place] [address] Jan, [facility] [place] [address] [id number] [place] [address] Jan, [facility] [place] [facility] [address] [id number] [place] [address] December, [facility] [place] [facility] [address] [id number] [place] [address] December, [facility] [address] [id number] [place] [address] 30 Nov, 2012 [facility] [place] [facility] [address] [id number] [place] [address] Nov, [facility] [place] [facility] [address] [id number] [place] [address] Nov, [facility] [place] [facility] [address] [id number] [place] [address] Nov, [facility] [place] [facility] [address] [id number] [place] [address] 24 Nov, 2012 [facility] [place] [facility] [address] [id number] [place] [address] Nov, [facility] [place] [address] [id number] [place] [address] Nov, [facility] [place] [facility] [address] [id number] [place] [address] 15 Nov, 2012 [facility] [place] [facility] [address] [id number] [place] [address] 11 Nov, 2012 [facility] [facility] [address] [id number] [place] [address] 10 Nov, 2012 [facility] [place] [facility] [address] [id number] [place] [address] 08 Nov, 2012 [facility] [place] [facility] [address] [id number] [place] [address] 05 Nov, 2012 [facility] [address] [id number] [place] [address] Nov, [facility] [address] [id number] [place] [address] Nov, [facility] [address] [id number] [place] [address] Oct, [facility] [address] [id number] [place] [address] Oct, [facility] [address] [id number] [place] [address] Oct, [facility] [address] [id number] [place] [address] Oct, [facility] [address] [id number] [place] [address] Oct, [facility] [address] [id number] [place] [address] Oct, [facility] [address] [id number] [place] [address] Oct, [facility] [address] [id number] [place] [address] Oct, [facility] [address] [id number] [place] [address] Oct, [facility] [address] [id number] [place] [address] Sep, [facility] [address] [id number] [place] [address] Aug, [facility] [address] [id number] [place] [address] Aug, [facility] [address] [id number] [place] [address] Aug, [facility] [address] [id number] [place] [address] Aug, [facility] [address] [id number] [place] [address] 31 Jul, 2012 [facility] [address] [id number] [place] [address] 31 Jul, 2012 [facility] [address] [id number] [place] [address] Jul, [facility] [address] [id number] [place] [address] 19 Jul, 2012 [facility] [address] [id number] [place] [address] Jul, [facility] [address] [id number] [place] [address] 15 Jul, 2012 [facility] [address] [id number] [place] [address] 15 Jul, 2012 [facility] [address] [id number] [place] [address] 14 Jul, 2012 [facility] [address] [id number] [place] [address] 14 Jul, 2012 [facility] [address] [id number] [place] [address] May, [facility] [address] [id number] [place] [address] 22 May, 2012 [facility] [address] [id number] [place] [address] 16 May, 2012 [facility] [address] [id number] [place] [address] 16 May, 2012 [facility] [address] [id number] [place] [address] 12 May, 2012 [facility] [address] [id number] [place] [address] May, [facility] [address] [id number] [place] [address] 27 Apr, 2012 [facility] [address] [id number] [place] [address] 27 Apr, 2012 [facility] [address] [id number] [place] [address] 24 Apr, 2012 [facility] [address] [id number] [place] [address] 18 Apr, 2012 [facility] [address] [id number] [place] [address] 14 Apr, 2012 [facility] [address] [id number] [place] [address] 12 Apr, 2012 [facility] [address] [id number] [place] [address] Mar, [facility] [address] [id number] [place] [address] Feb, [facility] [address] [id number] [place] [address] Feb, [facility] [address] [id number] [place] [address] Feb, [facility] [address] [id number] [place] [address] Jan, [facility] [place] [facility] [address] [id number] [place] [address] December, [facility] [place] [facility] [address] [id number] [place] [address] December, [facility] [place] [facility] [address] [id number] [place] [address] December, [facility] [place] [facility] [address] [id number] [place] [address] December, [facility] [place] [facility] [address] [id number] [place] [address] December, [facility] [address] [id number] [place] [address] December, [facility] [address] [id number] [place] [address] Nov, [facility] [address] [id number] [place] [address] Nov, [facility] [address] [id number] [place] [address] 17 Nov, 2011 [facility] [address] [id number] [place] [address] Nov, [facility] [address] [id number] [place] [address] 16 Nov, 2011 [facility] [address] [id number] [place] [address] 13 Nov, 2011 [facility] [address] [id number] [place] [address] 12 Nov, 2011 [facility] [address] [id number] [place] [address] Nov, [facility] [address] [id number] [place] [address] 05 Nov, 2011 [facility] [address] [id number] [place] [address] 04 Nov, 2011 [facility] [address] [id number] [place] [address] 30 Oct, 2011 [facility] [place] [facility] [address] [id number] [place] [address] 29 Oct, 2011 [facility] [address] [id number] [place] [address] 28 Oct, 2011 [facility] [address] [id number] [place] [address] Oct, [facility] [place] [facility] [address] [id number] [place] [address] 26 Oct, 2011 [facility] [place] [facility] [address] [id number] [place] [address] 23 Oct, 2011 [facility] [place] [facility] [address] [id number] [place] [address] 21 Oct, 2011 [facility] [place] [facility] [address] [id number] [place] [address] 19 Oct, 2011 [facility] [place] [facility] [address] [id number] [place] [address] 08 Oct, 2011 [facility] [place] [facility] [address] [id number] [place] [address] 07 Oct, 2011 [facility] [place] [facility] [address] [id number] [place] [address] 06 Oct, 2011 [facility] [place] [facility] [address] [id number] [place] [address] 05 Oct, 2011 [facility] [place] [facility] [address] [id number] [place] [address] 16 Sep, 2011 [facility] [place] [facility] [address] [id number] [place] [address] 14 Sep, 2011 [facility] [place] [facility] [address] [id number] [place] [address] 12 Sep, 2011 [facility] [place] [facility] [address] [id number] [place] [address] 10 Sep, 2011 [facility] [place] [facility] [address] [id number] [place] [address] 06 Sep, 2011 [facility] [place] [facility] [address] [id number] [place] [address] 06 Sep, 2011 [facility] [place] [facility] [address] [facility] [id number] [place] [address] 06 Sep, 2011 [facility] [place] [facility] [address] [id number] [place] [address] 06 Sep, 2011 [facility] [address] [id number] [place] [address] Sep, [facility] [address] [id number] [place] [address] 30 Aug, 2011 [facility] [address] [id number] [place] [address] Aug, [facility] [address] [id number] [place] [address] Aug, [facility] [address] [id number] [place] [address] Aug, [facility] [address] [id number] [place] [address] Aug, [facility] [address] [id number] [place] [address] Aug, [facility] [address] [id number] [place] [address] Aug, [facility] [address] [id number] [place] [address] 24 Jul, 2011 [facility] [address] [id number] [place] [address] 16 Jul, 2011 [facility] [address] [id number] [place] [address] 16 Jul, 2011 [facility] [address] [id number] [place] [address] 14 Jul, 2011 [facility] [place] [facility] [address] [id number] [place] [address] 30 Jun, 2011 [facility] [address] [id number] [place] [address] Jun, [facility] [address] [id number] [place] [address] May, [facility] [address] [facility] [id number] [place] [address] Mar, [facility] [address] [facility] [id number] [place] [address] Jan, [facility] [address] [facility] [id number] [place] [address] May, IMMUNIZATIONS No Known Immunizations SOCIAL HISTORY [...]
--- OUTSIDE RECORDS SUMMARY | 2019-03-23 07:06 | XMS REPORT ---
Author Author Migration, Doctor Organization [facility] Address Unknown Phone Unavailable Care Team Providers Care Supervisor Drapery Hanging Name Role Phone Migration, Doctor Unavailable Unavailable PROBLEMS Type Condition ICD9-CM Code [id number] Code Onset Dates Condition Status SNOMED Code Problem Other postablative hypothyroidism 244.1 Active 881634621 Problem Major depressive disorder, recurrent episode, severe, without mention of psychotic behavior 296.33 Active [id number] ALLERGIES No Information ENCOUNTERS Encounter Location Date Diagnosis [place] [id number] [place] [address] Sep, Unspecified mood [affective] disorder [place] [id number] [place] [address] Aug, Unspecified mood [affective] disorder [place] [id number] [place] [address] Jul, Unspecified mood [affective] disorder 9 [place] [id number] [place] [address] Jun, Unspecified mood [affective] disorder [place] [id number] [place] [address] Mar, Affective disorder 296.90 [place] [id number] [place] [address] Mar, [place] [id number] [place] [address] Feb, Nexplanon removal V25.43 and Initiation of OCP (BCP) V25.01 [place] [id number] [place] [address] Feb, Episodic mood disorder 296.90 [place] [id number] [place] [address] [place] [address] Feb, [facility] [address], [place] [address] Feb, Routine gynecological examination V72.31 ; Pap test, as part of routine gynecological examination V76.2 ; Breast cancer screening V76.10 ; Nexplanon in place V45.52 and Rash 782.1 [facility] [address], [place] [address] Jan, Episodic mood disorder 296.90 [facility] [address], [place] [address] Jan, [facility] [address], [place] [address] December, Episodic mood disorder 296.90 [facility] [address], [place] [address] December, [facility] [address], [place] [address] December, [facility] [address], [place] [address] December, [facility] [address], [place] [address] Nov, [facility] [address], [place] [address] Nov, [facility] [address], [place] [address] Nov, [facility] [address], [place] [address] Oct, [facility] [address], [place] [address] Oct, [facility] [id number] [address] Oct, [facility] [id number] [address] Oct, [facility] [place] [facility] [address] [id number] [place] [address] Oct, [facility] [place] [facility] [address] [id number] [place] [address] Oct, [facility] [place] [facility] [address] [id number] [place] [address] Sep, 2014 [facility] [place] [facility] [address] [id number] [place] [address] Sep, 2014 [facility] [place] [facility] [address] [id number] [place] [address] Sep, 2014 [facility] [place] [facility] [address] [id number] [place] [address] Sep, 2014 [facility] [place] [facility] [address] [id number] [place] [address] Sep, [facility] [place] [facility] [address] [id number] [place] [address] Sep, [facility] [place] [facility] [address] [id number] [place] [address] Aug, [facility] [place] [facility] [address] [id number] [place] [address] Aug, [facility] [place] [facility] [address] [id number] [place] [address] Aug, [facility] [place] [facility] [address] [id number] [place] [address] Aug, [facility] [place] [facility] [address] [id number] [place] [address] Aug, [facility] [place] [facility] [address] [id number] [place] [address] Aug, [facility] [place] [facility] [address] [id number] [place] [address] Aug, [facility] [place] [facility] [address] [id number] [place] [address] 14 Aug, 2014 [facility] [place] [facility] [address] [id number] [place] [address] Aug, [facility] [place] [facility] [address] [id number] [place] [address] Aug, [facility] [place] [facility] [address] [id number] [place] [address] Aug, [facility] [place] [facility] [address] [id number] [place] [address] Aug, [facility] [place] [facility] [address] [id number] [place] [address] Aug, [facility] [place] [facility] [address] [id number] [place] [address] Aug, [facility] [place] [facility] [address] [id number] [place] [address] Aug, [facility] [place] [facility] [address] [id number] [place] [address] Aug, [facility] [place] [facility] [address] [id number] [place] [address] Jul, [facility] [place] [facility] [address] [id number], [place] [address] 15 Jul, 2014 [facility] [place] [facility] [address] [id number], [place] [address] 15 Jul, 2014 [facility] [place] [facility] [address] [id number] [place] [address] Jul, [facility] [place] [facility] [address] [id number] [place] [address] Jul, [facility] [place] [facility] [address] [id number] [place] [address] Jul, [facility] [place] [facility] [address] [id number] [place] [address] 11 Jul, 2014 [facility] [place] [facility] [address] [id number] [place] [address] Jul, [facility] [place] [facility] [address] [id number] [place] [address] Jul, [facility] [place] [facility] [address] [id number] [place] [address] 05 Jul, 2014 [facility] [place] [facility] [address] [id number] [place] [address] 05 Jul, 2014 [facility] [place] [facility] [address] [id number] [place] [address] Jul, [facility] [place] [facility] [address] [id number] [place] [address] Jul, [facility] [place] [facility] [address] [id number] [place] [address] Jun, [facility] [place] [facility] [address] [id number] [place] [address] Jun, [facility] [place] [facility] [address] [id number] [place] [address] Jun, [facility] [place] [facility] [address] [facility] [id number] [place] [address] Jun, [facility] [place] [facility] [address] [id number] [place] [address] Jun, [facility] [place] [facility] [address] [id number] [place] [address] Jun, [facility] [place] [facility] [address] [id number] [place] [address] Jun, [facility] [place] [facility] [address] [id number] [place] [address] Jun, [facility] [place] [facility] [address] [id number], [place] [address] Jun, [facility] [place] [facility] [address] [id number] [place] [address] Jun, [facility] [place] [facility] [address] [id number] [place] [address] Jun, [facility] [place] [facility] [address] [id number] [place] [address] Jun, [facility] [place] [facility] [address] [id number] [place] [address] Jun, [facility] [place] [facility] [address] [id number] [place] [address] Jun, [facility] [place] [facility] [address] [id number] [place] [address] May, [facility] [place] [facility] [address] [id number] [place] [address] May, [facility] [place] [facility] [address] [id number] [place] [address] May, [facility] [place] [facility] [address] [id number] [place] [address] May, [facility] [place] [facility] [address] [id number] [place] [address] May, [facility] [place] [facility] [address] [id number] [place] [address] May, [facility] [place] [facility] [address] [id number] [place] [address] May, [facility] [place] [facility] [address] [id number] [place] [address] May, [facility] [place] [facility] [address] [id number] [place] [address] May, [facility] [place] [facility] [address] [id number] [place] [address] May, [facility] [place] [facility] [address] [id number] [place] [address] 30 Sep, 2013 [facility] [place] [facility] [address] [id number] [place] [address] 30 Sep, 2013 [facility] [place] [facility] [address] [id number] [place] [address] 19 Sep, 2013 [facility] [place] [facility] [address] [id number] [place] [address] 19 Sep, 2013 [facility] [place] [facility] [address] [id number] [place] [address] 18 Sep, 2013 [facility] [place] [facility] [address] [id number] [place] [address] 18 Sep, 2013 [facility] [place] [facility] [address] [id number] [place] [address] 18 Sep, 2013 [facility] [place] [facility] [address] [id number] [place] [address] 18 Sep, 2013 [facility] [place] [facility] [address] [id number] [place] [address] 16 Sep, 2013 [facility] [place] [facility] [address] [id number] [place] [address] 16 Sep, 2013 [facility] [place] [facility] [address] [id number] [place] [address] 08 Sep, 2013 [facility] [place] [facility] [address] [id number] [place] [address] 08 Sep, 2013 [facility] [place] [facility] [address] [id number] [place] [address] 08 Sep, 2013 [facility] [place] [facility] [address] [id number] [place] [address] 08 Sep, 2013 [facility] [place] [facility] [address] [id number] [place] [address] 04 Sep, 2013 [facility] [place] [facility] [address] [id number] [place] [address] 04 Sep, 2013 [facility] [place] [facility] [address] [id number] [place] [address] Mar, [facility] [place] [facility] [address] [id number] [place] [address] Mar, [facility] [place] [facility] [address] [id number] [place] [address] Mar, [facility] [place] [facility] [address] [id number] [place] [address] Jan, [facility] [place] [facility] [address] [id number] [place] [address] 23 Jan, 2014 [facility] [place] [facility] [address] [id number] [place] [address] Jan, [facility] [place] [facility] [address] [id number] [place] [address] 18 Jan, 2014 [facility] [place] [facility] [address] [id number] [place] [address] 16 Jan, 2014 [facility] [place] [facility] [address] [id number] [place] [address] 16 Jan, 2014 [facility] [place] [facility] [address] [id number] [place] [address] 16 Jan, 2014 [facility] [place] [facility] [address] [id number] [place] [address] 16 Jan, 2014 [facility] [place] [facility] [address] [id number] [place] [address] Jan, [facility] [place] [facility] [address] [id number] [place] [address] Jan, [facility] [place] [facility] [address] [id number] [place] [address] Jan, [facility] [place] [facility] [address] [id number] [place] [address] 11 Jan, 2014 [facility] [place] [facility] [address] [id number] [place] [address] Jan, [facility] [place] [facility] [address] [id number] [place] [address] Jan, [facility] [place] [facility] [address] [id number] [place] [address] Jan, [facility] [place] [facility] [address] [id number] [place] [address] Jan, [facility] [place] [facility] [address] [id number] [place] [address] December, [facility] [place] [facility] [address] [id number] [place] [address] December, [facility] [place] [facility] [address] [id number] [place] [address] December, [facility] [place] [facility] [address] [id number] [place] [address] December, [facility] [place] [facility] [address] [id number] [place] [address] December, [facility] [place] [facility] [address] [id number] [place] [address] Nov, [facility] [place] [facility] [address] [id number] [place] [address] Nov, [facility] [place] [facility] [address] [id number] [place] [address] Nov, [facility] [place] [facility] [address] [id number] [place] [address] Nov, [facility] [place] [facility] [address] [id number] [place] [address] Nov, [facility] [place] [facility] [address] [id number] [place] [address] Nov, [facility] [place] [facility] [address] [id number] [place] [address] Nov, [facility] [place] [facility] [address] [id number], [place] [address] 24 Nov, 2013 [facility] [place] [facility] [address] [id number] [place] [address] Nov, [facility] [place] [facility] [address] [id number] [place] [address] Nov, [facility] [place] [facility] [address] [facility] [id number] [place] [address] Oct, [facility] [place] [facility] [address] [id number] [place] [address] Oct, [facility] [place] [facility] [address] [id number] [place] [address] Oct, [facility] [place] [facility] [address] [id number] [place] [address] Oct, [facility] [place] [facility] [address] [facility] [id number] [place] [address] Oct, [facility] [place] [facility] [address] [id number] [place] [address] Oct, [facility] [place] [facility] [address] [id number] [place] [address] Oct, [facility] [place] [facility] [address] [facility] [id number] [place] [address] Oct, [facility] [place] [facility] [address] [id number] [place] [address] Oct, [facility] [place] [facility] [address] [id number] [place] [address] Sep, [facility] [place] [facility] [address] [id number] [place] [address] Sep, [facility] [place] [facility] [address] [id number] [place] [address] Sep, [facility] [place] [facility] [address] [facility] [id number] [place] [address] Sep, [facility] [place] [facility] [address] [id number] [place] [address] Sep, [facility] [place] [facility] [address] [id number] [place] [address] Sep, [facility] [place] [facility] [address] [id number] [place] [address] Sep, [facility] [place] [facility] [address] [id number] [place] [address] Aug, [facility] [place] [facility] [address] [id number] [place] [address] Aug, [facility] [place] [facility] [address] [id number] [place] [address] Aug, [facility] [place] [facility] [address] [id number] [place] [address] Aug, [facility] [place] [facility] [address] [id number] [place] [address] Aug, [facility] [place] [facility] [address] [id number] [place] [address] Aug, [facility] [place] [facility] [address] [id number] [place] [address] Aug, [facility] [place] [facility] [address] [id number] [place] [address] Aug, [facility] [place] [facility] [address] [id number], [place] [address] Jul, [facility] [place] [facility] [address] [id number] [place] [address] Jul, [facility] [place] [facility] [address] [id number] [place] [address] Jul, [facility] [place] [facility] [address] [id number], [place] [address] Jul, [facility] [place] [facility] [address] [id number], [place] [address] Jun, [facility] [place] [facility] [address] [id number] [place] [address] Jun, [facility] [place] [facility] [address] [id number] [place] [address] Jun, [facility] [place] [facility] [address] [id number] [place] [address] May, [facility] [place] [facility] [address] [id number] [place] [address] May, [facility] [place] [facility] [address] [id number] [place] [address] May, [facility] [place] [facility] [address] [id number] [place] [address] May, [facility] [place] [facility] [address] [id number] [place] [address] May, [facility] [place] [facility] [address] [id number] [place] [address] May, [facility] [place] [facility] [address] [facility] [id number] [place] [address] May, [facility] [place] [facility] [address] [facility] [id number] [place] [address] Apr, [facility] [place] [facility] [address] [id number], [place] [address] 17 Apr, 2013 [facility] [place] [facility] [address] [id number], [place] [address] 12 Apr, 2013 [facility] [place] [facility] [address] [id number] [place] [address] 11 Apr, 2013 [facility] [place] [facility] [address] [facility] [id number] [place] [address] 05 Apr, 2013 [facility] [place] [facility] [address] [facility] [id number] [place] [address] Mar, [facility] [place] [facility] [address] [id number] [place] [address] Mar, [facility] [place] [facility] [address] [id number] [place] [address] Mar, [facility] [place] [facility] [address] [id number] [place] [address] Mar, [facility] [place] [facility] [address] [id number] [place] [address] Feb, [facility] [place] [facility] [address] [id number] [place] [address] Feb, [facility] [place] [facility] [address] [id number] [place] [address] Feb, [facility] [place] [facility] [address] [id number] [place] [address] Feb, [facility] [place] [facility] [address] [id number] [place] [address] Feb, [facility] [place] [facility] [address] [id number] [place] [address] Feb, [facility] [place] [facility] [address] [id number] [place] [address] Feb, [facility] [place] [facility] [address] [id number] [place] [address] Feb, [facility] [place] [facility] [address] [id number] [place] [address] Jan, [facility] [place] [facility] [address] [id number] [place] [address] Jan, [facility] [place] [facility] [address] [id number] [place] [address] Jan, [facility] [place] [facility] [address] [id number] [place] [address] Jan, [facility] [place] [facility] [address] [id number] [place] [address] Jan, [facility] [address] [id number] [place] [address] Jan, [facility] [place] [facility] [address] [id number] [place] [address] Jan, [facility] [place] [facility] [address] [id number] [place] [address] December, [facility] [place] [facility] [address] [id number] [place] [address] December, [facility] [address] [id number] [place] [address] 30 Nov, 2012 [facility] [place] [facility] [address] [id number] [place] [address] Nov, [facility] [place] [facility] [address] [id number] [place] [address] Nov, [facility] [place] [facility] [address] [id number] [place] [address] Nov, [facility] [place] [facility] [address] [id number] [place] [address] 24 Nov, 2012 [facility] [place] [facility] [address] [id number] [place] [address] Nov, [facility] [place] [facility] [address] [id number] [place] [address] Nov, [facility] [place] [facility] [address] [id number], [place] [address] 15 Nov, 2012 [facility] [place] [facility] [address] [id number] [place] [address] 11 Nov, 2012 [facility] [place] [facility] [address] [id number] [place] [address] 10 Nov, 2012 [facility] [place] [facility] [address] [id number] [place] [address] 08 Nov, 2012 [facility] [place] [facility] [address] [id number] [place] [address] 05 Nov, 2012 [facility] [address] [id number] [place] [address] Nov, [facility] [place] [facility] [address] [id number] [place] [address] Nov, [facility] [address] [id number] [place] [address] Oct, [facility] [place] [facility] [address] [id number] [place] [address] Oct, [facility] [address] [id number] [place] [address] Oct, [facility] [address] [id number] [place] [address] Oct, [facility] [address] [id number] [place] [address] Oct, [facility] [address] [id number] [place] [address] Oct, [facility] [address] [id number] [place] [address] Oct, [facility] [address] [id number] [place] [address] Oct, [facility] [address] [id number] [place] [address] Oct, [facility] [place] [facility] [address] [id number] [place] [address] Sep, [facility] [place] [facility] [address] [id number] [place] [address] Aug, [facility] [place] [facility] [address] [id number] [place] [address] Aug, [facility] [place] [facility] [address] [id number] [place] [address] Aug, [facility] [place] [facility] [address] [id number] [place] [address] Aug, [facility] [place] [facility] [address] [id number] [place] [address] 31 Jul, 2012 [facility] [place] [facility] [address] [id number] [place] [address] 31 Jul, 2012 [facility] [place] [facility] [address] [id number] [place] [address] Jul, [facility] [address] [id number] [place] [address] 19 Jul, 2012 [facility] [place] [facility] [address] [id number] [place] [address] Jul, [facility] [address] [id number] [place] [address] 15 Jul, 2012 [facility] [place] [facility] [address] [id number] [place] [address] 15 Jul, 2012 [facility] [place] [facility] [address] [id number] [place] [address] 14 Jul, 2012 [facility] [place] [facility] [address] [id number] [place] [address] 14 Jul, 2012 [facility] [place] [facility] [address] [id number] [place] [address] May, [facility] [place] [facility] [address] [id number] [place] [address] 22 May, 2012 [facility] [place] [facility] [address] [id number] [place] [address] 16 May, 2012 [facility] [place] [facility] [address] [id number] [place] [address] 16 May, 2012 [facility] [place] [facility] [address] [id number] [place] [address] 12 May, 2012 [facility] [place] [facility] [address] [id number] [place] [address] May, [facility] [place] [facility] [address] [id number] [place] [address] 27 Apr, 2012 [facility] [place] [facility] [address] [id number] [place] [address] 27 Apr, 2012 [facility] [place] [facility] [address] [id number] [place] [address] 24 Apr, 2012 [facility] [place] [facility] [address] [id number] [place] [address] 18 Apr, 2012 [facility] [place] [facility] [address] [id number] [place] [address] 14 Apr, 2012 [facility] [place] [facility] [address] [id number] [place] [address] 12 Apr, 2012 [facility] [place] [facility] [address] [id number] [place] [address] Mar, [facility] [place] [facility] [address] [id number] [place] [address] Feb, [facility] [place] [facility] [address] [id number] [place] [address] Feb, [facility] [place] [facility] [address] [id number] [place] [address] Feb, [facility] [place] [facility] [address] [id number] [place] [address] Jan, [facility] [place] [facility] [address] [id number] [place] [address] December, [facility] [place] [facility] [address] [id number] [place] [address] December, [facility] [place] [facility] [address] [id number] [place] [address] December, [facility] [place] [facility] [address] [id number] [place] [address] December, [facility] [place] [facility] [address] [id number] [place] [address] December, [facility] [address] [id number] [place] [address] December, [facility] [address] [id number] [place] [address] Nov, [facility] [address] [id number] [place] [address] Nov, [facility] [address] [id number] [place] [address] 17 Nov, 2011 [facility] [address] [id number] [place] [address] Nov, [facility] [facility] [address] [id number] [place] [address] 16 Nov, 2011 [facility] [address] [id number] [place] [address] 13 Nov, 2011 [facility] [address] [id number] [place] [address] 12 Nov, 2011 [facility] [address] [id number] [place] [address] Nov, [facility] [address] [id number] [place] [address] 05 Nov, 2011 [facility] [address] [id number] [place] [address] 04 Nov, 2011 [facility] [address] [id number] [place] [address] 30 Oct, 2011 [facility] [place] [facility] [address] [id number] [place] [address] 29 Oct, 2011 [facility] [address] [id number] [place] [address] 28 Oct, 2011 [facility] [address] [id number] [place] [address] Oct, [facility] [place] [facility] [address] [id number] [place] [address] 26 Oct, 2011 [facility] [place] [facility] [address] [id number] [place] [address] 23 Oct, 2011 [facility] [place] [facility] [address] [id number] [place] [address] 21 Oct, 2011 [facility] [place] [facility] [address] [id number] [place] [address] 19 Oct, 2011 [facility] [place] [facility] [address] [id number] [place] [address] 08 Oct, 2011 [facility] [place] [facility] [address] [id number] [place] [address] 07 Oct, 2011 [facility] [place] [facility] [address] [id number] [place] [address] 06 Oct, 2011 [facility] [place] [facility] [address] [id number] [place] [address] 05 Oct, 2011 [facility] [place] [facility] [address] [id number] [place] [address] 16 Sep, 2011 [facility] [place] [facility] [address] [id number] [place] [address] 14 Sep, 2011 [facility] [place] [facility] [address] [id number] [place] [address] 12 Sep, 2011 [facility] [place] [facility] [address] [id number] [place] [address] 10 Sep, 2011 [facility] [place] [facility] [address] [id number] [place] [address] 06 Sep, 2011 [facility] [place] [facility] [address] [id number] [place] [address] 06 Sep, 2011 [facility] [place] [facility] [address] [facility] [id number] [place] [address] 06 Sep, 2011 [facility] [place] [facility] [address] [id number] [place] [address] 06 Sep, 2011 [facility] [address] [id number] [place] [address] Sep, [facility] [address] [id number] [place] [address] 30 Aug, 2011 [facility] [address] [id number] [place] [address] Aug, [facility] [address] [id number] [place] [address] Aug, [facility] [address] [id number] [place] [address] Aug, [facility] [address] [id number] [place] [address] Aug, [facility] [address] [id number] [place] [address] Aug, [facility] [address] [id number] [place] [address] Aug, [facility] [address] [id number] [place] [address] 24 Jul, 2011 [facility] [address] [id number] [place] [address] 16 Jul, 2011 [facility] [address] [id number] [place] [address] 16 Jul, 2011 [facility] [address] [id number] [place] [address] 14 Jul, 2011 [facility] [place] [facility] [address] [id number] [place] [address] 30 Jun, 2011 [facility] [address] [id number] [place] [address] Jun, [facility] [address] [id number] [place] [address] May, [facility] [address] [facility] [id number] [place] [address] Mar, [facility] [address] [facility] [id number] [address] Jan, [facility] [address] [facility] [id number] [place] [address] May, IMMUNIZATIONS No Known Immunizations SOCIAL HISTORY [...]
--- OUTSIDE RECORDS SUMMARY | 2019-03-23 07:07 | XMS REPORT ---
Author Author Migration, Doctor Organization [facility] Address Unknown Phone Unavailable Care Team Providers Care Consumer Relations Specialist Name Role Phone Migration, Doctor Unavailable Unavailable PROBLEMS Type Condition ICD9-CM Code MGB87-OR Code Onset Dates Condition Status SNOMED Code Problem Other postablative hypothyroidism 244.1 Active 861781618 Problem Major depressive disorder, recurrent episode, severe, without mention of psychotic behavior 296.33 Active [id number] ALLERGIES Substance Reaction Event Type Date Status Neosporin Unknown Drug Allergy Nov, Active Flagyl Unknown Drug Allergy Nov, Active Penicillins Unknown Non Drug Allergy Nov, Active ENCOUNTERS Encounter Location Date Diagnosis [place] [id number] [place] [address] Sep, Unspecified mood [affective] disorder [address] [place] [id number] [place] [address] Aug, Unspecified mood [affective] disorder [place] [address] [address] Jul, Unspecified mood [affective] disorder [place] [id number] [place] [address] Jun, Unspecified mood [affective] disorder [id number] [place] [address] Mar, Affective disorder 296.90 [place] [id number] [place] [address] Mar, [place] [id number] [place] [address] Feb, Nexplanon removal V25.43 and Initiation of OCP (BCP) V25.01 [place] [id number] [place] [address] Feb, Episodic mood disorder 296.90 [facility] [id number] [address] Feb, [facility] [id number] [address] Feb, Routine gynecological examination V72.31 ; Pap test, as part of routine gynecological examination V76.2 ; Breast cancer screening V76.10 ; Nexplanon in place V45.52 and Rash 782.1 [facility] [id number] [address] Jan, Episodic mood disorder 296.90 [facility] [id number] [address] Jan, [facility] [id number] [address] December, Episodic mood disorder 296.90 [facility] [id number] [address] December, [facility] [id number] [address] December, [facility] [id number] [address] December, [facility] [id number] [address] Nov, [facility] [id number] [address] Nov, [facility] [id number] [address] Nov, [facility] [id number] [address] Oct, [facility] [id number] [address] Oct, [facility] [place] [facility] [address] [facility] [id number] [place] [address] Oct, [facility] [place] [facility] [address] [id number] [place] [address] Oct, [facility] [place] [facility] [address] [id number] [place] [address] Oct, [facility] [place] [facility] [address] [id number] [place] [address] Oct, [facility] [place] [facility] [address] [id number] [place] [address] Sep, [facility] [place] [facility] [address] [id number] [place] [address] Sep, [facility] [place] [facility] [address] [id number] [place] [address] Sep, [facility] [place] [facility] [address] [id number] [place] [address] Sep, [facility] [place] [facility] [address] [id number] [place] [address] Sep, [facility] [place] [facility] [address] [facility] [id number] [place] [address] Sep, [facility] [place] [facility] [address] [facility] [id number] [place] [address] Aug, [facility] [place] [facility] [address] [id number] [place] [address] Aug, [facility] [place] [facility] [address] [id number] [place] [address] Aug, [facility] [place] [facility] [address] [id number] [place] [address] Aug, [facility] [place] [facility] [address] [id number] [place] [address] Aug, [facility] [place] [facility] [address] [id number] [place] [address] Aug, [facility] [place] [facility] [address] [id number] [place] [address] Aug, [facility] [place] [facility] [address] [id number] [place] [address] Aug, [facility] [place] [facility] [address] [id number] [place] [address] Aug, [facility] [place] [facility] [address] [id number] [place] [address] Aug, [facility] [place] [facility] [address] [id number] [place] [address] Aug, [facility] [place] [facility] [address] [id number] [place] [address] Aug, [facility] [place] [facility] [address] [id number] [place] [address] Aug, [facility] [place] [facility] [address] [id number] [place] [address] Aug, [facility] [place] [facility] [address] [id number] [place] [address] Aug, [facility] [place] [facility] [address] [id number] [place] [address] Aug, [facility] [place] [facility] [address] [id number] [place] [address] Jul, [facility] [place] [facility] [address] [id number] [place] [address] Jul, [facility] [place] [facility] [address] [id number] [place] [address] Jul, [facility] [place] [facility] [address] [id number] [place] [address] Jul, [facility] [place] [facility] [address] [id number] [place] [address] Jul, [facility] [place] [facility] [address] [id number] [place] [address] 11 Jul, 2014 [facility] [place] [facility] [address] [id number] [place] [address] Jul, [facility] [place] [facility] [address] [id number] [place] [address] Jul, [facility] [place] [facility] [address] [id number] [place] [address] Jul, [facility] [place] [facility] [address] [id number] [place] [address] Jul, [facility] [place] [facility] [address] [id number] [place] [address] Jul, [facility] [place] [facility] [address] [id number] [place] [address] Jul, [facility] [place] [facility] [address] [id number] [place] [address] Jul, [facility] [place] [facility] [address] [id number] [place] [address] Jun, [facility] [place] [facility] [address] [id number] [place] [address] Jun, [facility] [place] [facility] [address] [id number] [place] [address] Jun, [facility] [place] [facility] [address] [id number] [place] [address] Jun, [facility] [place] [facility] [address] [id number] [place] [address] Jun, [facility] [place] [facility] [address] [id number] [place] [address] Jun, [facility] [place] [facility] [address] [id number] [place] [address] Jun, [facility] [place] [facility] [address] [id number] [place] [address] Jun, [facility] [place] [facility] [address] [id number] [place] [address] Jun, [facility] [place] [facility] [address] [id number] [place] [address] Jun, [facility] [place] [facility] [address] [id number] [place] [address] Jun, [facility] [place] [facility] [address] [id number] [place] [address] Jun, [facility] [place] [facility] [address] [id number] [place] [address] Jun, [facility] [place] [facility] [address] [id number] [place] [address] Jun, [facility] [place] [facility] [address] [id number] [place] [address] May, [facility] [place] [facility] [address] [id number] [place] [address] May, [facility] [place] [facility] [address] [id number] [place] [address] May, [facility] [place] [facility] [address] [id number], [place] [address] May, [facility] [place] [facility] [address] [id number], [place] [address] May, [facility] [place] [facility] [address] [id number], [place] [address] May, [facility] [place] [facility] [address] [id number] [place] [address] May, [facility] [place] [facility] [address] [id number] [place] [address] May, [facility] [place] [facility] [address] [id number], [place] [address] May, [facility] [place] [facility] [address] [id number], [place] [address] 10 May, 2013 [facility] [place] [facility] [address] [id number] [place] [address] 30 Sep, 2013 [facility] [place] [facility] [address] [id number], [place] [address] 30 Sep, 2013 [facility] [place] [facility] [address] [id number] [place] [address] 19 Sep, 2013 [facility] [place] [facility] [address] [id number] [place] [address] 19 Sep, 2013 [facility] [place] [facility] [address] [id number] [place] [address] 18 Sep, 2013 [facility] [place] [facility] [address] [id number] [place] [address] 18 Sep, 2013 [facility] [place] [facility] [address] [id number], [place] [address] 18 Sep, 2013 [facility] [place] [facility] [address] [id number] [place] [address] 18 Sep, 2013 [facility] [place] [facility] [address] [id number] [place] [address] 16 Sep, 2013 [facility] [place] [facility] [address] [id number], [place] [address] 16 Sep, 2013 [facility] [place] [facility] [address] [id number], [place] [address] 08 Sep, 2013 [facility] [place] [facility] [address] [id number], [place] [address] 08 Sep, 2013 [facility] [place] [facility] [address] [id number], [place] [address] 08 Sep, 2013 [facility] [place] [facility] [address] [id number], [place] [address] 08 Sep, 2013 [facility] [place] [facility] [address] [id number], [place] [address] 04 Sep, 2013 [facility] [place] [facility] [address] [id number] [place] [address] Apr, [facility] [place] [facility] [address] [id number] [place] [address] Mar, [facility] [place] [facility] [address] [id number] [place] [address] Mar, [facility] [place] [facility] [address] [id number] [place] [address] Mar, [facility] [place] [facility] [address] [id number] [place] [address] Jan, [facility] [place] [facility] [address] [id number] [place] [address] Jan, [facility] [place] [facility] [address] [id number] [place] [address] Jan, [facility] [place] [facility] [address] [id number] [place] [address] Jan, [facility] [place] [facility] [address] [id number] [place] [address] Jan, [facility] [place] [facility] [address] [id number] [place] [address] Jan, [facility] [place] [facility] [address] [id number] [place] [address] Jan, [facility] [place] [facility] [address] [id number] [place] [address] 16 Jan, 2014 [facility] [place] [facility] [address] [id number] [place] [address] Jan, [facility] [place] [facility] [address] [id number] [place] [address] Jan, [facility] [place] [facility] [address] [id number] [place] [address] Jan, [facility] [place] [facility] [address] [id number] [place] [address] Jan, [facility] [place] [facility] [address] [id number] [place] [address] Jan, [facility] [place] [facility] [address] [id number] [place] [address] Jan, [facility] [place] [facility] [address] [id number] [place] [address] Jan, [facility] [place] [facility] [address] [id number] [place] [address] Jan, [facility] [place] [facility] [address] [id number] [place] [address] December, [facility] [place] [facility] [address] [id number] [place] [address] December, [facility] [place] [facility] [address] [id number] [place] [address] December, [facility] [place] [facility] [address] [id number] [place] [address] December, [facility] [place] [facility] [address] [id number] [place] [address] December, [facility] [place] [facility] [address] [id number] [place] [address] Nov, [facility] [place] [facility] [address] [id number] [place] [address] Nov, [facility] [place] [facility] [address] [id number] [place] [address] Nov, [facility] [place] [facility] [address] [id number] [place] [address] Nov, [facility] [place] [facility] [address] [id number] [place] [address] Nov, [facility] [place] [facility] [address] [id number] [place] [address] Nov, [facility] [place] [facility] [address] [id number] [place] [address] 24 Nov, 2013 [facility] [place] [facility] [address] [id number] [place] [address] 24 Nov, 2013 [facility] [place] [facility] [address] [id number] [place] [address] Nov, [facility] [place] [facility] [address] [id number] [place] [address] Nov, [facility] [place] [facility] [address] [id number] [place] [address] Oct, [facility] [place] [facility] [address] [id number] [place] [address] Oct, [facility] [place] [facility] [address] [id number] [place] [address] Oct, [facility] [place] [facility] [address] [id number] [place] [address] Oct, [facility] [place] [facility] [address] [id number] [place] [address] Oct, [facility] [place] [facility] [address] [id number] [place] [address] Oct, [facility] [place] [facility] [address] [id number] [place] [address] Oct, [facility] [place] [facility] [address] [id number] [place] [address] Oct, [facility] [place] [facility] [address] [id number] [place] [address] Oct, [facility] [place] [facility] [address] [id number] [place] [address] Sep, [facility] [place] [facility] [address] [id number] [place] [address] Sep, [facility] [place] [facility] [address] [id number] [place] [address] Sep, [facility] [address] [id number] [place] [address] Sep, [facility] [place] [facility] [address] [id number] [place] [address] Sep, [facility] [place] [facility] [address] [id number] [place] [address] Sep, [facility] [place] [facility] [address] [id number] [place] [address] Sep, [facility] [place] [facility] [address] [id number] [place] [address] Aug, [facility] [place] [facility] [address] [id number] [place] [address] Aug, [facility] [place] [facility] [address] [id number] [place] [address] Aug, [facility] [place] [facility] [address] [id number] [place] [address] Aug, [facility] [place] [facility] [address] [id number] [place] [address] Aug, [facility] [place] [facility] [address] [id number] [place] [address] Aug, [facility] [place] [facility] [address] [id number], [place] [address] Aug, [facility] [place] [facility] [address] [id number], [place] [address] Aug, [facility] [place] [facility] [address] [id number] [place] [address] Jul, [facility] [place] [facility] [address] [id number] [place] [address] Jul, [facility] [place] [facility] [address] [id number] [place] [address] Jul, [facility] [place] [facility] [address] [id number] [place] [address] Jul, [facility] [address] [id number] [place] [address] Jun, [facility] [place] [facility] [address] [id number] [place] [address] Jun, [facility] [place] [facility] [address] [id number] [place] [address] Jun, [facility] [place] [facility] [address] [id number] [place] [address] May, [facility] [place] [facility] [address] [id number] [place] [address] May, [facility] [place] [facility] [address] [id number] [place] [address] May, [facility] [place] [facility] [address] [id number] [place] [address] May, [facility] [place] [facility] [address] [id number] [place] [address] May, [facility] [place] [facility] [address] [id number] [place] [address] May, [facility] [place] [facility] [address] [id number] [place] [address] May, [facility] [place] [facility] [address] [id number] [place] [address] 25 Apr, 2013 [facility] [place] [facility] [address] [id number] [place] [address] 17 Sep, 2012 [facility] [place] [facility] [address] [id number] [place] [address] 12 Sep2012 [facility] [place] [facility] [address] [id number] [place] [address] 11 Sep, 2012 [facility] [place] [facility] [address] [id number] [place] [address] 05 Apr, 2013 [facility] [place] [facility] [address] [id number] [place] [address] Mar, [facility] [place] [facility] [address] [id number] [place] [address] Mar, [facility] [place] [facility] [address] [id number] [place] [address] Mar, [facility] [place] [facility] [address] [id number] [place] [address] Mar, [facility] [place] [facility] [address] [id number] [place] [address] Feb, [facility] [place] [facility] [address] [id number] [place] [address] Feb, [facility] [place] [facility] [address] [id number] [place] [address] Feb, [facility] [place] [facility] [address] [id number] [place] [address] Feb, [facility] [place] [facility] [address] [id number] [place] [address] Feb, [facility] [place] [facility] [address] [id number] [place] [address] Feb, [facility] [place] [facility] [address] [id number] [place] [address] Feb, [facility] [place] [facility] [address] [id number] [place] [address] Feb, [facility] [place] [facility] [address] [id number] [place] [address] Jan, [facility] [place] [facility] [address] [id number] [place] [address] Jan, [facility] [place] [facility] [address] [id number] [place] [address] Jan, [facility] [place] [facility] [address] [id number] [place] [address] 18 Jan, 2013 [facility] [address] [id number] [place] [address] Jan, [facility] [place] [facility] [address] [id number] [place] [address] Jan, [facility] [address] [id number] [place] [address] Jan, [facility] [place] [facility] [address] [id number] [place] [address] December, [facility] [address] [id number] [place] [address] December, [facility] [address] [id number] [place] [address] 30 Nov, 2012 [facility] [place] [facility] [address] [id number] [place] [address] Nov, [facility] [place] [facility] [address] [id number] [place] [address] Nov, [facility] [address] [id number] [place] [address] 24 Nov, 2012 [facility] [place] [facility] [address] [id number] [place] [address] 24 Nov, 2012 [facility] [place] [facility] [address] [id number] [place] [address] Nov, [facility] [place] [facility] [address] [id number] [place] [address] 23 Nov, 2012 [facility] [place] [facility] [address] [id number] [place] [address] 15 Nov, 2012 [facility] [place] [facility] [address] [id number] [place] [address] 11 Nov, 2012 [facility] [place] [facility] [address] [id number] [place] [address] 10 Nov, 2012 [facility] [place] [facility] [address] [id number] [place] [address] 08 Nov, 2012 [facility] [address] [id number] [place] [address] 05 Nov, 2012 [facility] [address] [id number] [place] [address] Nov, [facility] [address] [id number] [place] [address] Nov, [facility] [address] [id number] [place] [address] Oct, [facility] [address] [id number] [place] [address] 27 Oct, 2012 [facility] [address] [id number] [place] [address] Oct, [facility] [address] [id number] [place] [address] Oct, [facility] [address] [id number] [place] [address] Oct, [facility] [address] [id number] [place] [address] 18 Oct, 2012 [facility] [address] [id number] [place] [address] Oct, [facility] [address] [id number] [place] [address] Oct, [facility] [address] [id number] [place] [address] Oct, [facility] [address] [id number] [place] [address] 08 Sep, 2012 [facility] [address] [id number] [place] [address] 24 Aug, 2012 [facility] [address] [id number] [place] [address] Aug, [facility] [place] [facility] [address] [id number] [place] [address] 17 Aug, 2012 [facility] [place] [facility] [address] [id number] [place] [address] Aug, [facility] [place] [facility] [address] [id number] [place] [address] 31 Jul, 2012 [facility] [place] [facility] [address] [id number] [place] [address] 31 Jul, 2012 [facility] [place] [facility] [address] [id number] [place] [address] 19 Jul, 2012 [facility] [place] [facility] [address] [id number] [place] [address] 19 Jul, 2012 [facility] [place] [facility] [address] [id number] [place] [address] 17 Jul, 2012 [facility] [place] [facility] [address] [id number] [place] [address] 15 Jul, 2012 [facility] [place] [facility] [address] [id number] [place] [address] 15 Jul, 2012 [facility] [place] [facility] [address] [id number] [address] 14 Jul, 2012 [facility] [place] [facility] [address] [id number], [place] [address] 14 Jul, 2012 [facility] [place] [facility] [address] [id number], [place] [address] 22 May, 2012 [facility] [place] [facility] [address] [id number] [place] [address] 22 May, 2012 [facility] [place] [facility] [address] [id number], [place] [address] 16 May, 2012 [facility] [place] [facility] [address] [id number], [place] [address] 16 May, 2012 [facility] [place] [facility] [address] [id number], [place] [address] May, [facility] [place] [facility] [address] [id number] [place] [address] May, [facility] [place] [facility] [address] [id number] [place] [address] 27 Apr, 2012 [facility] [place] [facility] [address] [id number] [place] [address] 27 Apr, 2012 [facility] [place] [facility] [address] [id number] [place] [address] 24 Apr, 2012 [facility] [place] [facility] [address] [id number] [place] [address] 18 Apr, 2012 [facility] [place] [facility] [address] [id number] [place] [address] 14 Apr, 2012 [facility] [place] [facility] [address] [id number] [place] [address] 12 Apr, 2012 [facility] [place] [facility] [address] [id number] [place] [address] Mar, [facility] [place] [facility] [address] [id number] [place] [address] Feb, [facility] [place] [facility] [address] [id number] [place] [address] Feb, [facility] [place] [facility] [address] [id number] [place] [address] Feb, [facility] [place] [facility] [address] [id number] [address] Jan, [facility] [place] [facility] [address] [id number] [place] [address] December, [facility] [place] [facility] [address] [id number] [place] [address] December, [facility] [place] [facility] [address] [id number] [place] [address] December, [facility] [place] [facility] [address] [id number] [place] [address] December, [facility] [place] [facility] [address] [id number] [place] [address] December, [facility] [place] [facility] [address] [id number] [place] [address] December, [facility] [place] [facility] [address] [id number] [place] [address] Nov, [facility] [place] [facility] [address] [id number] [place] [address] Nov, [facility] [place] [facility] [address] [id number] [place] [address] 17 Nov, 2011 [facility] [place] [facility] [address] [id number] [place] [address] 16 Nov, 2011 [facility] [place] [facility] [address] [id number] [place] [address] 16 Nov, 2011 [facility] [place] [facility] [address] [id number] [place] [address] 13 Nov, 2011 [facility] [place] [facility] [address] [id number] [place] [address] Nov, [facility] [place] [facility] [address] [id number] [place] [address] Nov, [facility] [place] [facility] [address] [id number] [place] [address] 05 Nov, 2011 [facility] [place] [facility] [address] [id number] [place] [address] 04 Nov, 2011 [facility] [place] [facility] [address] [id number] [place] [address] 30 Oct, 2011 [facility] [place] [facility] [address] [id number] [place] [address] 29 Oct, 2011 [facility] [place] [facility] [address] [id number] [place] [address] 28 Oct, 2011 [facility] [place] [facility] [address] [id number] [place] [address] 27 Oct, 2011 [facility] [place] [facility] [address] [id number] [place] [address] 26 Oct, 2011 [facility] [place] [facility] [address] [id number] [place] [address] 23 Oct, 2011 [facility] [place] [facility] [address] [id number] [place] [address] 21 Oct, 2011 [facility] [place] [facility] [address] [id number] [place] [address] 19 Oct, 2011 [facility] [place] [facility] [address] [id number] [place] [address] 08 Oct, 2011 [facility] [place] [facility] [address] [id number] [place] [address] 07 Oct, 2011 [facility] [place] [facility] [address] [id number] [place] [address] 06 Oct, 2011 [facility] [place] [facility] [address] [id number] [place] [address] 05 Oct, 2011 [facility] [place] [facility] [address] [id number] [place] [address] 16 Sep, 2011 [facility] [place] [facility] [address] [id number] [place] [address] 14 Sep, 2011 [facility] [place] [facility] [address] [id number] [place] [address] 12 Sep, 2011 [facility] [place] [facility] [address] [id number] [place] [address] 10 Sep, 2011 [facility] [place] [facility] [address] [id number] [place] [address] 06 Sep, 2011 [facility] [place] [facility] [address] [id number] [place] [address] 06 Sep, 2011 [facility] [place] [facility] [address] [id number] [place] [address] 06 Sep, 2011 [facility] [address] [id number] [place] [address] Sep, [facility] [place] [facility] [address] [id number] [place] [address] Sep, [facility] [place] [facility] [address] [id number] [place] [address] 30 Aug, 2011 [facility] [place] [facility] [address] [id number] [place] [address] Aug, [facility] [place] [facility] [address] [id number] [place] [address] Aug, [facility] [address] [id number] [place] [address] Aug, [facility] [address] [id number] [place] [address] Aug, [facility] [address] [id number] [place] [address] Aug, [facility] [address] [id number] [place] [address] Aug, [facility] [address] [id number] [place] [address] 24 Jul, 2011 [facility] [place] [facility] [address] [id number] [place] [address] 16 Jul, 2011 [facility] [place] [facility] [address] [id number] [place] [address] 16 Jul, 2011 [facility] [place] [facility] [address] [id number] [place] [address] 14 Jul, 2011 [facility] [place] [facility] [address] [id number] [place] [address] 30 Jun, 2011 [facility] [place] [facility] [address] [id number] [place] [address] Jun, [facility] [address] [facility] [id number] [place] [address] May, [facility] [address] [facility] [id number], [place] [address] Mar, [facility] [address] [facility] [id number], [place] [address] Jan, [facility] [address] [facility] [id number], [place] [address] May, IMMUNIZATIONS No Known Immunizations SOCIAL HISTORY Never Assessed REASON FOR [place]ISIT [place] [place] VITAL SIGNS MEDICATIONS Medication Instructions Dosage Frequency Start Date End Date Duration Status tramadol 50 mg take 1 tablet by Oral route every 4-6 hours as needed PRN pain; must last 30 days Jan, Active Zithromax Z-Tl 250 mg 2 tablet by Oral route 1 time per day for 1 days then take 1 tab daily on days 2-5 Aug, Active Bactrim DS 800-160 mg 1 tablet by Oral route 2 times per day for 10 day(s) Aug, Active Zoloft 100 mg 1 tablet by Oral route 1 time per day Jun, Active Advair Diskus 100-50 mcg/dose inhale 1 puff by inhalation route 2 times per day in the morning and evening approximately 12 hours apart Apr, Active Clindamycin HCl 300 mg 1 capsule by Oral route every 12 hours for 7 day(s) Aug, Active Gabapentin 300 mg 1 capsule by Oral route 3 times per day Aug, Active PredniSONE 20 mg 2 tablet by Oral route 1 time per day for 5 day(s) Oct, Active Wellbutrin 100 mg 1 tablet by Oral route 2 times per day Jun, Active Ambien 10 mg 1 tablet by Oral route 1 time per day PRN Oct, Active PredniSONE 10 mg 1 tablet by Oral route 1 time per day for 5 day(s) Aug, Active levothyroxine 300 mcg 2 tablet by Oral route 1 time per day Jul, Active Bactroban 2 % 1 shantel by Topical route 2 times per day for 14 day(s) apply to affected area Jan, Active ZyrTEC 10 mg take 1 tablet (10 mg) by oral route once daily Oct, Active Azithromycin 250 mg 2 Tablet by Oral route on day 1 then take 1 daily for 4 days Mar, Active Omeprazole 20 mg take 1 capsule by Oral route before a meal 2 times per day 30 min before meal Sep, Active RESULTS No Results PROCEDURES No Known procedures INSTRUCTIONS MEDICATIONS ADMINISTERED No Known Medications MEDICAL (GENERAL) HISTORY Type Description Date Medical History hypertension Medical History asthma Medical History Hypothyroidism Medical History Arthritis Medical History MRSA Surgical History ENT surgery Surgical History carpal tunnel release (L); ulnar nerve release (L) 2012
--- OUTSIDE RECORDS SUMMARY | 2019-03-23 07:07 | XMS REPORT ---
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 Name Role Phone ANSHUL CARBAJAL Unavailable PROBLEMS Type Condition ICD9-CM Code FZE47-NZ Code Onset Dates Condition Status SNOMED Code Problem Other postablative hypothyroidism 244.1 Active 308599934 Problem Major depressive disorder, recurrent episode, severe, without mention of psychotic behavior 296.33 Active [id number] ALLERGIES No Information ENCOUNTERS Encounter Location Date Diagnosis [place] [address] [place] [id number] [place] [address] Sep, Unspecified mood [affective] disorder [place] [address] [address] Aug, Unspecified mood [affective] disorder [place] [address] [address] Jul, Unspecified mood [affective] disorder [place] [id number] [place] [address] Jun, Unspecified mood [affective] disorder [id number] [place] [address] Mar, Affective disorder 296.90 [facility] [id number] [place] [address] Mar, [place] [address] [address] Feb, Nexplanon removal V25.43 and Initiation of OCP (BCP) V25.01 [place] [address] [address] Feb, Episodic mood disorder 296.90 [facility] [address] [address] Feb, [facility] [address] [address] Feb, Routine gynecological examination V72.31 ; Pap test, as part of routine gynecological examination V76.2 ; Breast cancer screening V76.10 ; Nexplanon in place V45.52 and Rash 782.1 [facility] [address], [place] [address] Jan, Episodic mood disorder 296.90 [facility] [address] [address] Jan, [facility] [address] [address] December, Episodic mood disorder 296.90 [facility] [address], [place] [address] December, [facility] [address], [place] [address] December, [facility] [address], [place] [address] December, [facility] [address] [address] Nov, [facility] [address] [address] Nov, [facility] [address] [address] Nov, [facility] [address] [address] Oct, [facility] [address], [place] [address] Oct, [facility] [address], [place] [address] Oct, [facility] [place] [facility] [address] [id number] [place] [address] Oct, [facility] [place] [facility] [address] [id number] [place] [address] Oct, [facility] [place] [facility] [address] [facility] [id number] [place] [address] Oct, [facility] [place] [facility] [address] [id number] [place] [address] Sep, [facility] [place] [facility] [address] [id number] [place] [address] Sep, [facility] [place] [facility] [address] [id number] [place] [address] Sep, [facility] [place] [facility] [address] [id number] [place] [address] Sep, [facility] [place] [facility] [address] [id number] [place] [address] Sep, [facility] [place] [facility] [address] [facility] [id number] [place] [address] Sep, [facility] [place] [facility] [address] [facility] [id number] [place] [address] Aug, [facility] [place] [facility] [address] [id number] [place] [address] Aug, [facility] [place] [facility] [address] [id number] [place] [address] Aug, [facility] [place] [facility] [address] [id number] [place] [address] Aug, [facility] [place] [facility] [address] [facility] [id number] [place] [address] Aug, [facility] [place] [facility] [address] [facility] [id number] [place] [address] Aug, [facility] [place] [facility] [address] [id number] [place] [address] Aug, [facility] [place] [facility] [address] [id number] [place] [address] Aug, [facility] [place] [facility] [address] [id number] [place] [address] Aug, [facility] [place] [facility] [address] [id number] [place] [address] Aug, [facility] [place] [facility] [address] [id number] [place] [address] Aug, [facility] [place] [facility] [address] [id number] [place] [address] Aug, [facility] [place] [facility] [address] [id number] [place] [address] Aug, [facility] [place] [facility] [address] [id number] [place] [address] Aug, [facility] [place] [facility] [address] [id number] [place] [address] Aug, [facility] [place] [facility] [address] [id number] [place] [address] Aug, [facility] [place] [facility] [address] [id number] [place] [address] Jul, [facility] [place] [facility] [address] [id number], [place] [address] Jul, [facility] [place] [facility] [address] [id number] [place] [address] Jul, [facility] [place] [facility] [address] [id number] [place] [address] Jul, [facility] [place] [facility] [address] [id number] [place] [address] Jul, [facility] [place] [facility] [address] [id number], [place] [address] Jul, [facility] [place] [facility] [address] [id number] [place] [address] Jul, [facility] [place] [facility] [address] [id number] [place] [address] Jul, [facility] [place] [facility] [address] [id number] [place] [address] Jul, [facility] [place] [facility] [address] [id number] [place] [address] Jul, [facility] [place] [facility] [address] [id number] [place] [address] Jul, [facility] [place] [facility] [address] [id number] [place] [address] Jul, [facility] [place] [facility] [address] [id number] [place] [address] Jul, [facility] [place] [facility] [address] [id number] [place] [address] Jun, [facility] [place] [facility] [address] [id number] [place] [address] Jun, [facility] [place] [facility] [address] [id number] [place] [address] Jun, [facility] [place] [facility] [address] [id number], [place] [address] Jun, [facility] [place] [facility] [address] [id number], [place] [address] Jun, [facility] [place] [facility] [address] [id number], [place] [address] Jun, [facility] [place] [facility] [address] [id number], [place] [address] Jun, [facility] [place] [facility] [address] [id number] [place] [address] Jun, [facility] [place] [facility] [address] [id number] [place] [address] Jun, [facility] [place] [facility] [address] [id number] [place] [address] Jun, [facility] [place] [facility] [address] [id number] [place] [address] Jun, [facility] [place] [facility] [address] [id number] [place] [address] Jun, [facility] [place] [facility] [address] [id number] [place] [address] Jun, [facility] [place] [facility] [address] [id number] [place] [address] Jun, [facility] [place] [facility] [address] [id number] [place] [address] May, [facility] [place] [facility] [address] [id number] [place] [address] May, [facility] [place] [facility] [address] [id number] [place] [address] May, [facility] [place] [facility] [address] [id number] [place] [address] May, [facility] [place] [facility] [address] [id number] [place] [address] May, [facility] [place] [facility] [address] [id number] [place] [address] May, [facility] [place] [facility] [address] [id number] [place] [address] May, [facility] [place] [facility] [address] [id number] [place] [address] May, [facility] [place] [facility] [address] [id number] [place] [address] May, [facility] [place] [facility] [address] [id number] [place] [address] May, [facility] [place] [facility] [address] [id number] [place] [address] 30 Sep, 2013 [facility] [place] [facility] [address] [id number] [place] [address] 30 Sep, 2013 [facility] [place] [facility] [address] [id number] [place] [address] 19 Sep, 2013 [facility] [place] [facility] [address] [id number] [place] [address] 19 Sep, 2013 [facility] [place] [facility] [address] [id number] [place] [address] 18 Sep, 2013 [facility] [place] [facility] [address] [id number] [place] [address] 18 Apr, 2013 [facility] [place] [facility] [address] [id number] [place] [address] 18 Apr, 2013 [facility] [place] [facility] [address] [id number] [place] [address] 18 Sep, 2013 [facility] [place] [facility] [address] [id number] [place] [address] 16 Sep, 2013 [facility] [place] [facility] [address] [id number] [place] [address] 16 Sep, 2013 [facility] [place] [facility] [address] [id number], [place] [address] 08 Sep, 2013 [facility] [place] [facility] [address] [id number], [place] [address] 08 Sep, 2013 [facility] [place] [facility] [address] [id number] [place] [address] 08 Sep, 2013 [facility] [place] [facility] [address] [id number], [place] [address] 08 Sep, 2013 [facility] [place] [facility] [address] [id number] [place] [address] 04 Sep, 2013 [facility] [place] [facility] [address] [id number] [place] [address] Apr, [facility] [place] [facility] [address] [id number] [place] [address] Mar, [facility] [place] [facility] [address] [id number] [place] [address] Mar, [facility] [place] [facility] [address] [id number] [place] [address] Mar, [facility] [place] [facility] [address] [id number] [place] [address] Jan, [facility] [place] [facility] [address] [id number] [place] [address] Jan, [facility] [place] [facility] [address] [id number] [place] [address] Jan, [facility] [place] [facility] [address] [id number] [place] [address] 18 Jan, 2014 [facility] [place] [facility] [address] [id number] [place] [address] Jan, [facility] [place] [facility] [address] [id number] [place] [address] Jan, [facility] [place] [facility] [address] [id number] [place] [address] Jan, [facility] [place] [facility] [address] [id number] [place] [address] 16 Jan, 2014 [facility] [place] [facility] [address] [id number] [place] [address] Jan, [facility] [place] [facility] [address] [id number] [place] [address] Jan, [facility] [place] [facility] [address] [id number] [place] [address] Jan, [facility] [place] [facility] [address] [id number] [place] [address] Jan, [facility] [place] [facility] [address] [id number] [place] [address] Jan, [facility] [place] [facility] [address] [id number] [place] [address] Jan, [facility] [place] [facility] [address] [id number] [place] [address] Jan, [facility] [place] [facility] [address] [id number] [place] [address] Jan, [facility] [place] [facility] [address] [id number] [place] [address] December, [facility] [place] [facility] [address] [id number] [place] [address] December, [facility] [place] [facility] [address] [id number] [place] [address] December, [facility] [place] [facility] [address] [id number] [place] [address] December, [facility] [place] [facility] [address] [id number] [place] [address] December, [facility] [place] [facility] [address] [id number] [place] [address] Nov, [facility] [place] [facility] [address] [id number] [place] [address] Nov, [facility] [place] [facility] [address] [id number] [place] [address] Nov, [facility] [place] [facility] [address] [id number] [place] [address] Nov, [facility] [place] [facility] [address] [id number] [place] [address] Nov, [facility] [place] [facility] [address] [id number] [place] [address] Nov, [facility] [place] [facility] [address] [id number] [place] [address] 24 Nov, 2013 [facility] [place] [facility] [address] [id number] [place] [address] 24 Nov, 2013 [facility] [place] [facility] [address] [id number] [place] [address] Nov, [facility] [place] [facility] [address] [id number] [place] [address] Nov, [facility] [place] [facility] [address] [id number] [place] [address] Oct, [facility] [place] [facility] [address] [id number] [place] [address] Oct, [facility] [place] [facility] [address] [id number] [place] [address] Oct, [facility] [place] [facility] [address] [id number] [place] [address] Oct, [facility] [place] [facility] [address] [id number] [place] [address] Oct, [facility] [place] [facility] [address] [id number] [place] [address] Oct, [facility] [place] [facility] [address] [id number] [place] [address] Oct, [facility] [place] [facility] [address] [id number] [place] [address] Oct, [facility] [place] [facility] [address] [id number] [place] [address] Oct, [facility] [place] [facility] [address] [id number] [place] [address] Sep, [facility] [place] [facility] [address] [id number] [place] [address] Sep, [facility] [place] [facility] [address] [id number] [place] [address] Sep, [facility] [place] [facility] [address] [id number] [place] [address] Sep, [facility] [place] [facility] [address] [id number] [place] [address] Sep, [facility] [place] [facility] [address] [id number] [place] [address] Sep, [facility] [place] [facility] [address] [id number] [place] [address] Sep, [facility] [place] [facility] [address] [id number] [place] [address] Aug, [facility] [place] [facility] [address] [id number] [place] [address] Aug, [facility] [place] [facility] [address] [id number] [place] [address] Aug, [facility] [place] [facility] [address] [id number] [place] [address] Aug, [facility] [place] [facility] [address] [id number] [place] [address] Aug, [facility] [place] [facility] [address] [id number] [place] [address] Aug, [facility] [place] [facility] [address] [id number] [place] [address] Aug, [facility] [place] [facility] [address] [id number] [place] [address] Aug, [facility] [place] [facility] [address] [id number] [place] [address] Jul, [facility] [place] [facility] [address] [id number] [place] [address] Jul, [facility] [place] [facility] [address] [id number] [place] [address] Jul, [facility] [place] [facility] [address] [id number] [place] [address] Jul, [facility] [place] [facility] [address] [id number] [place] [address] Jun, [facility] [place] [facility] [address] [id number] [place] [address] Jun, [facility] [place] [facility] [address] [facility] [id number] [place] [address] Jun, [facility] [place] [facility] [address] [id number] [place] [address] May, [facility] [place] [facility] [address] [id number] [place] [address] May, [facility] [place] [facility] [address] [id number] [place] [address] May, [facility] [place] [facility] [address] [id number] [place] [address] May, [facility] [place] [facility] [address] [id number], [place] [address] May, [facility] [place] [facility] [address] [id number], [place] [address] May, [facility] [place] [facility] [address] [id number], [place] [address] May, [facility] [place] [facility] [address] [id number], [place] [address] 25 Apr, 2013 [facility] [place] [facility] [address] [id number], [place] [address] 17 Apr, 2013 [facility] [place] [facility] [address] [id number], [place] [address] 12 Apr, 2013 [facility] [place] [facility] [address] [id number], [place] [address] 11 Apr, 2013 [facility] [place] [facility] [address] [id number], [place] [address] 05 Apr, 2013 [facility] [place] [facility] [address] [id number] [place] [address] Mar, [facility] [place] [facility] [address] [id number] [place] [address] Mar, [facility] [place] [facility] [address] [id number] [place] [address] Mar, [facility] [place] [facility] [address] [id number] [place] [address] Mar, [facility] [place] [facility] [address] [id number] [place] [address] Feb, [facility] [place] [facility] [address] [id number] [place] [address] Feb, [facility] [place] [facility] [address] [id number] [place] [address] Feb, [facility] [place] [facility] [address] [id number] [place] [address] Feb, [facility] [place] [facility] [address] [id number] [place] [address] Feb, [facility] [place] [facility] [address] [id number] [place] [address] Feb, [facility] [place] [facility] [address] [id number] [place] [address] Feb, [facility] [place] [facility] [address] [id number] [place] [address] Feb, [facility] [place] [facility] [address] [id number] [place] [address] Jan, [facility] [place] [facility] [address] [id number] [place] [address] Jan, [facility] [place] [facility] [address] [id number] [place] [address] Jan, [facility] [place] [facility] [address] [id number] [place] [address] Jan, [facility] [place] [facility] [address] [id number] [place] [address] Jan, [facility] [address] [id number] [place] [address] Jan, [facility] [place] [address] [id number] [place] [address] Jan, [facility] [address] [id number] [place] [address] December, [facility] [address] [id number] [place] [address] December, [facility] [address] [id number] [place] [address] 30 Nov, 2012 [facility] [address] [id number] [place] [address] Nov, [facility] [address] [id number] [place] [address] Nov, [facility] [address] [id number] [place] [address] Nov, [facility] [address] [id number] [place] [address] 24 Nov, 2012 [facility] [address] [id number] [place] [address] Nov, [facility] [address] [id number] [place] [address] 23 Nov, 2012 [facility] [address] [id number] [place] [address] 15 Nov, 2012 [facility] [place] [facility] [address] [id number] [place] [address] 11 Nov, 2012 [facility] [address] [id number] [place] [address] 10 Nov, 2012 [facility] [address] [id number] [place] [address] Nov, [facility] [address] [id number] [place] [address] Nov, [facility] [place] [facility] [address] [id number] [place] [address] Nov, [facility] [place] [facility] [address] [id number] [place] [address] Nov, [facility] [place] [facility] [address] [id number] [place] [address] Oct, [facility] [address] [id number] [place] [address] Oct, [facility] [place] [facility] [address] [id number] [place] [address] Oct, [facility] [address] [id number] [place] [address] Oct, [facility] [place] [facility] [address] [id number] [place] [address] Oct, [facility] [place] [facility] [address] [id number] [place] [address] Oct, [facility] [place] [facility] [address] [id number] [place] [address] Oct, [facility] [place] [facility] [address] [id number] [place] [address] Oct, [facility] [place] [facility] [address] [id number] [place] [address] Oct, [facility] [place] [facility] [address] [id number] [place] [address] Sep, [facility] [place] [facility] [address] [id number] [place] [address] Aug, [facility] [place] [facility] [address] [id number] [place] [address] Aug, [facility] [place] [facility] [address] [id number] [place] [address] 17 Aug, 2012 [facility] [address] [id number] [place] [address] Aug, [facility] [place] [facility] [address] [id number] [place] [address] 31 Jul, 2012 [facility] [place] [facility] [address] [id number] [place] [address] 31 Jul, 2012 [facility] [place] [facility] [address] [id number] [place] [address] 19 Jul, 2012 [facility] [place] [facility] [address] [id number] [place] [address] 19 Jul, 2012 [facility] [place] [facility] [address] [id number] [place] [address] 17 Jul, 2012 [facility] [place] [facility] [address] [id number] [place] [address] 15 Jul, 2012 [facility] [place] [facility] [address] [id number] [place] [address] 15 Jul, 2012 [facility] [place] [facility] [address] [id number] [place] [address] 14 Jul, 2012 [facility] [place] [facility] [address] [id number] [place] [address] 14 Jul, 2012 [facility] [place] [facility] [address] [id number] [place] [address] May, [facility] [place] [facility] [address] [id number] [place] [address] May, [facility] [place] [facility] [address] [id number] [place] [address] 16 May, 2012 [facility] [place] [facility] [address] [id number] [place] [address] 16 May, 2012 [facility] [place] [facility] [address] [id number] [place] [address] May, [facility] [place] [facility] [address] [id number] [place] [address] 12 May, 2012 [facility] [place] [facility] [address] [id number] [place] [address] 27 Apr, 2012 [facility] [place] [facility] [address] [id number] [place] [address] 27 Apr, 2012 [facility] [place] [facility] [address] [id number] [place] [address] 24 Apr, 2012 [facility] [place] [facility] [address] [id number] [place] [address] 18 Apr, 2012 [facility] [place] [facility] [address] [id number] [place] [address] 14 Apr, 2012 [facility] [place] [facility] [address] [id number] [place] [address] Apr, [facility] [place] [facility] [address] [id number] [place] [address] Mar, [facility] [place] [facility] [address] [id number] [place] [address] Feb, [facility] [place] [facility] [address] [id number] [place] [address] Feb, [facility] [place] [facility] [address] [id number] [place] [address] Feb, [facility] [place] [facility] [address] [id number], [place] [address] Jan, [facility] [place] [facility] [address] [id number] [place] [address] December, [facility] [place] [facility] [address] [id number] [place] [address] December, [facility] [place] [facility] [address] [id number] [place] [address] December, [facility] [place] [facility] [address] [id number] [place] [address] December, [facility] [address] [id number] [place] [address] December, [facility] [place] [facility] [address] [id number] [place] [address] December, [facility] [place] [facility] [address] [id number] [place] [address] 25 Nov, 2011 [facility] [place] [facility] [address] [id number] [place] [address] 17 Nov, 2011 [facility] [place] [facility] [address] [id number] [place] [address] 17 Nov, 2011 [facility] [place] [facility] [address] [id number] [place] [address] 16 Nov, 2011 [facility] [address] [id number] [place] [address] 16 Nov, 2011 [facility] [place] [facility] [address] [id number] [place] [address] 13 Nov, 2011 [facility] [place] [facility] [address] [id number] [place] [address] 12 Nov, 2011 [facility] [place] [facility] [address] [id number] [place] [address] Nov, [facility] [place] [facility] [address] [id number] [place] [address] 05 Nov, 2011 [facility] [place] [facility] [address] [id number] [place] [address] 04 Nov, 2011 [facility] [place] [facility] [address] [id number] [place] [address] 30 Oct, 2011 [facility] [place] [facility] [address] [id number] [place] [address] 29 Oct, 2011 [facility] [place] [facility] [address] [id number] [place] [address] Oct, [facility] [place] [facility] [address] [id number] [place] [address] 27 Oct, 2011 [facility] [place] [facility] [address] [id number] [place] [address] 26 Oct, 2011 [facility] [place] [facility] [address] [id number] [place] [address] 23 Oct, 2011 [facility] [place] [facility] [address] [id number] [place] [address] 21 Oct, 2011 [facility] [place] [facility] [address] [id number] [place] [address] 19 Oct, 2011 [facility] [place] [facility] [address] [id number] [place] [address] 08 Oct, 2011 [facility] [place] [facility] [address] [facility] [id number] [place] [address] 07 Oct, 2011 [facility] [place] [facility] [address] [id number] [place] [address] 06 Oct, 2011 [facility] [place] [facility] [address] [id number] [place] [address] 05 Oct, 2011 [facility] [place] [facility] [address] [id number] [place] [address] 16 Sep, 2011 [facility] [place] [facility] [address] [facility] [id number] [place] [address] 14 Sep, 2011 [facility] [place] [facility] [address] [id number] [place] [address] 12 Sep, 2011 [facility] [place] [facility] [address] [id number] [place] [address] 10 Sep, 2011 [facility] [place] [facility] [address] [id number] [place] [address] 06 Sep, 2011 [facility] [place] [facility] [address] [id number] [place] [address] 06 Sep, 2011 [facility] [place] [facility] [address] [id number] [place] [address] 06 Sep, 2011 [facility] [address] [id number] [place] [address] 06 Sep, 2011 [facility] [address] [id number] [place] [address] Sep, [facility] [address] [id number] [place] [address] 30 Aug, 2011 [facility] [address] [id number] [place] [address] Aug, [facility] [address] [id number] [place] [address] Aug, [facility] [address] [id number] [place] [address] Aug, [facility] [address] [id number] [place] [address] Aug, [facility] [address] [id number] [place] [address] Aug, [facility] [address] [id number] [place] [address] Aug, [facility] [address] [facility] [id number] [place] [address] Jul, [facility] [address] [id number] [place] [address] 16 Jul, 2011 [facility] [place] [facility] [address] [id number] [place] [address] 16 Jul, 2011 [facility] [place] [facility] [address] [id number] [place] [address] 14 Jul, 2011 [facility] [place] [facility] [address] [id number] [place] [address] 30 Jun, 2011 [facility] [address] [id number] [place] [address] Jun, [facility] [address] [facility] [id number], [place] [address] May, [facility] [address] [facility] [id number], [place] [address] Mar, [facility] [address] [facility] [id number], [place] [address] Jan, [facility] [address] [facility] [id number], [place] [address] May, IMMUNIZATIONS No Known Immunizations SOCIAL HISTORY [...]
--- OUTSIDE RECORDS SUMMARY | 2019-03-23 07:08 | XMS REPORT ---
Author Author Migration, Doctor Organization [facility] Address Unknown Phone Unavailable Care Team Providers Care Electronic Field Service Engineer Name Role Phone Migration, Doctor Unavailable Unavailable PROBLEMS Type Condition ICD9-CM Code [id number] Code Onset Dates Condition Status SNOMED Code Problem Other postablative hypothyroidism 244.1 Active 213695173 Problem Major depressive disorder, recurrent episode, severe, without mention of psychotic behavior 296.33 Active [id number] ALLERGIES No Information ENCOUNTERS Encounter Location Date Diagnosis [place] [id number] [place] [address] Sep, Unspecified mood [affective] disorder [place] [id number] [place] [address] Aug, Unspecified mood [affective] disorder [place] [id number] [place] [address] Jul, Unspecified mood [affective] disorder [address] [place] [id number] [place] [address] Jun, Unspecified mood [affective] disorder [place] [id number] [place] [address] Mar, Affective disorder 296.90 [place] [id number] [place] [address] Mar, [place] [id number] [place] [address] Feb, Nexplanon removal V25.43 and Initiation of OCP (BCP) V25.01 [place] [id number] [place] [address] Feb, Episodic mood disorder 296.90 [place] [id number] [place] [address] [place] [address] Feb, [facility] [place] [facility] [address], [place] [address] Feb, Routine gynecological examination V72.31 ; Pap test, as part of routine gynecological examination V76.2 ; Breast cancer screening V76.10 ; Nexplanon in place V45.52 and Rash 782.1 [facility] [place] [facility] [address], [place] [address] Jan, Episodic mood disorder 296.90 [facility] [place] [facility] [address], [place] [address] Jan, [facility] [place] [facility] [address], [place] [address] December, Episodic mood disorder 296.90 [facility] [place] [facility] [address], [place] [address] December, [facility] [place] [facility] [address], [place] [address] December, [facility] [place] [facility] [address], [place] [address] December, [facility] [place] [facility] [address], [place] [address] Nov, [facility] [place] [facility] [address], [place] [address] Nov, [facility] [place] [facility] [address], [place] [address] Nov, [facility] [place] [facility] [address], [place] [address] Oct, [facility] [place] [facility] [address], [place] [address] Oct, [facility] [place] [facility] [id number] [address] Oct, [facility] [place] [facility] [id number] [place] [address] Oct, [facility] [place] [facility] [address] [id number] [place] [address] Oct, [facility] [place] [facility] [address] [id number] [place] [address] Oct, [facility] [place] [facility] [address] [id number] [place] [address] Sep, 2014 [facility] [place] [facility] [address] [id number] [place] [address] Sep, 2014 [facility] [place] [facility] [address] [id number] [place] [address] Sep, 2014 [facility] [place] [facility] [address] [id number] [place] [address] Sep, 2014 [facility] [place] [facility] [address] [id number] [place] [address] Sep, [facility] [place] [facility] [address] [id number] [place] [address] Sep, [facility] [place] [facility] [address] [id number] [place] [address] Aug, [facility] [place] [facility] [address] [id number] [place] [address] Aug, [facility] [place] [facility] [address] [id number] [place] [address] Aug, [facility] [place] [facility] [address] [id number] [place] [address] Aug, [facility] [place] [facility] [address] [id number] [place] [address] Aug, [facility] [place] [facility] [address] [id number] [place] [address] Aug, [facility] [place] [facility] [address] [id number] [place] [address] Aug, [facility] [place] [facility] [address] [id number] [place] [address] 14 Aug, 2014 [facility] [place] [facility] [address] [id number] [place] [address] Aug, [facility] [place] [facility] [address] [id number] [place] [address] Aug, [facility] [place] [facility] [address] [id number] [place] [address] Aug, [facility] [place] [facility] [address] [id number] [place] [address] Aug, [facility] [place] [facility] [address] [id number] [place] [address] Aug, [facility] [place] [facility] [address] [id number] [place] [address] Aug, [facility] [place] [facility] [address] [id number] [place] [address] Aug, [facility] [place] [facility] [address] [id number] [place] [address] Aug, [facility] [place] [facility] [address] [id number] [place] [address] Jul, [facility] [place] [facility] [address] [id number], [place] [address] 15 Jul, 2014 [facility] [place] [facility] [address] [id number], [place] [address] 15 Jul, 2014 [facility] [place] [facility] [address] [id number] [place] [address] Jul, [facility] [place] [facility] [address] [id number] [place] [address] Jul, [facility] [place] [facility] [address] [id number] [place] [address] Jul, [facility] [place] [facility] [address] [id number] [place] [address] 11 Jul, 2014 [facility] [place] [facility] [address] [id number] [place] [address] Jul, [facility] [place] [facility] [address] [id number] [place] [address] Jul, [facility] [place] [facility] [address] [id number] [place] [address] 05 Jul, 2014 [facility] [place] [facility] [address] [id number] [place] [address] 05 Jul, 2014 [facility] [place] [facility] [address] [id number] [place] [address] Jul, [facility] [place] [facility] [address] [id number] [place] [address] Jul, [facility] [place] [facility] [address] [id number] [place] [address] Jun, [facility] [place] [facility] [address] [id number] [place] [address] Jun, [facility] [place] [facility] [address] [id number] [place] [address] Jun, [facility] [place] [facility] [address] [facility] [id number] [place] [address] Jun, [facility] [place] [facility] [address] [id number] [place] [address] Jun, [facility] [place] [facility] [address] [id number] [place] [address] Jun, [facility] [place] [facility] [address] [id number] [place] [address] Jun, [facility] [place] [facility] [address] [id number] [place] [address] Jun, [facility] [place] [facility] [address] [id number], [place] [address] Jun, [facility] [place] [facility] [address] [id number] [place] [address] Jun, [facility] [place] [facility] [address] [id number] [place] [address] Jun, [facility] [place] [facility] [address] [id number] [place] [address] Jun, [facility] [place] [facility] [address] [id number] [place] [address] Jun, [facility] [place] [facility] [address] [id number] [place] [address] Jun, [facility] [place] [facility] [address] [id number] [place] [address] May, [facility] [place] [facility] [address] [id number] [place] [address] May, [facility] [place] [facility] [address] [id number] [place] [address] May, [facility] [place] [facility] [address] [id number] [place] [address] May, [facility] [place] [facility] [address] [id number] [place] [address] May, [facility] [place] [facility] [address] [id number] [place] [address] May, [facility] [place] [facility] [address] [id number] [place] [address] May, [facility] [place] [facility] [address] [id number] [place] [address] May, [facility] [place] [facility] [address] [id number] [place] [address] May, [facility] [place] [facility] [address] [id number] [place] [address] May, [facility] [place] [facility] [address] [id number] [place] [address] 30 Sep, 2013 [facility] [place] [facility] [address] [id number] [place] [address] 30 Sep, 2013 [facility] [place] [facility] [address] [id number] [place] [address] 19 Sep, 2013 [facility] [place] [facility] [address] [id number] [place] [address] 19 Sep, 2013 [facility] [place] [facility] [address] [id number] [place] [address] 18 Sep, 2013 [facility] [place] [facility] [address] [id number] [place] [address] 18 Sep, 2013 [facility] [place] [facility] [address] [id number] [place] [address] 18 Sep, 2013 [facility] [place] [facility] [address] [id number] [place] [address] 18 Sep, 2013 [facility] [place] [facility] [address] [id number] [place] [address] 16 Sep, 2013 [facility] [place] [facility] [address] [id number] [place] [address] 16 Sep, 2013 [facility] [place] [facility] [address] [id number] [place] [address] 08 Sep, 2013 [facility] [place] [facility] [address] [id number] [place] [address] 08 Sep, 2013 [facility] [place] [facility] [address] [id number] [place] [address] 08 Sep, 2013 [facility] [place] [facility] [address] [id number] [place] [address] 08 Sep, 2013 [facility] [place] [facility] [address] [id number] [place] [address] 04 Sep, 2013 [facility] [place] [facility] [address] [id number] [place] [address] 04 Sep, 2013 [facility] [place] [facility] [address] [id number] [place] [address] Mar, [facility] [place] [facility] [address] [id number] [place] [address] Mar, [facility] [place] [facility] [address] [id number] [place] [address] Mar, [facility] [place] [facility] [address] [id number] [place] [address] Jan, [facility] [place] [facility] [address] [id number] [place] [address] 23 Jan, 2014 [facility] [place] [facility] [address] [id number] [place] [address] Jan, [facility] [place] [facility] [address] [id number] [place] [address] 18 Jan, 2014 [facility] [place] [facility] [address] [id number] [place] [address] 16 Jan, 2014 [facility] [place] [facility] [address] [id number] [place] [address] 16 Jan, 2014 [facility] [place] [facility] [address] [id number] [place] [address] 16 Jan, 2014 [facility] [place] [facility] [address] [id number] [place] [address] 16 Jan, 2014 [facility] [place] [facility] [address] [id number] [place] [address] Jan, [facility] [place] [facility] [address] [id number] [place] [address] Jan, [facility] [place] [facility] [address] [id number] [place] [address] Jan, [facility] [place] [facility] [address] [id number] [place] [address] 11 Jan, 2014 [facility] [place] [facility] [address] [id number] [place] [address] Jan, [facility] [place] [facility] [address] [id number] [place] [address] Jan, [facility] [place] [facility] [address] [id number] [place] [address] Jan, [facility] [place] [facility] [address] [id number] [place] [address] Jan, [facility] [place] [facility] [address] [id number] [place] [address] December, [facility] [place] [facility] [address] [id number] [place] [address] December, [facility] [place] [facility] [address] [id number] [place] [address] December, [facility] [place] [facility] [address] [id number] [place] [address] December, [facility] [place] [facility] [address] [id number] [place] [address] December, [facility] [place] [facility] [address] [id number] [place] [address] Nov, [facility] [place] [facility] [address] [id number] [place] [address] Nov, [facility] [place] [facility] [address] [id number] [place] [address] Nov, [facility] [place] [facility] [address] [id number] [place] [address] Nov, [facility] [place] [facility] [address] [id number] [place] [address] Nov, [facility] [place] [facility] [address] [id number] [place] [address] Nov, [facility] [place] [facility] [address] [id number] [place] [address] Nov, [facility] [place] [facility] [address] [id number], [place] [address] 24 Nov, 2013 [facility] [place] [facility] [address] [id number] [place] [address] Nov, [facility] [place] [facility] [address] [id number] [place] [address] Nov, [facility] [place] [facility] [address] [facility] [id number] [place] [address] Oct, [facility] [place] [facility] [address] [id number] [place] [address] Oct, [facility] [place] [facility] [address] [id number] [place] [address] Oct, [facility] [place] [facility] [address] [id number] [place] [address] Oct, [facility] [place] [facility] [address] [facility] [id number] [place] [address] Oct, [facility] [place] [facility] [address] [id number] [place] [address] Oct, [facility] [place] [facility] [address] [id number] [place] [address] Oct, [facility] [place] [facility] [address] [facility] [id number] [place] [address] Oct, [facility] [place] [facility] [address] [id number] [place] [address] Oct, [facility] [place] [facility] [address] [id number] [place] [address] Sep, [facility] [place] [facility] [address] [id number] [place] [address] Sep, [facility] [place] [facility] [address] [id number] [place] [address] Sep, [facility] [place] [facility] [address] [facility] [id number] [place] [address] Sep, [facility] [place] [facility] [address] [id number] [place] [address] Sep, [facility] [place] [facility] [address] [id number] [place] [address] Sep, [facility] [place] [facility] [address] [id number] [place] [address] Sep, [facility] [place] [facility] [address] [id number] [place] [address] Aug, [facility] [place] [facility] [address] [id number] [place] [address] Aug, [facility] [place] [facility] [address] [id number] [place] [address] Aug, [facility] [place] [facility] [address] [id number] [place] [address] Aug, [facility] [place] [facility] [address] [id number] [place] [address] Aug, [facility] [place] [facility] [address] [id number] [place] [address] Aug, [facility] [place] [facility] [address] [id number] [place] [address] Aug, [facility] [place] [facility] [address] [id number] [place] [address] Aug, [facility] [place] [facility] [address] [id number], [place] [address] Jul, [facility] [place] [facility] [address] [id number] [place] [address] Jul, [facility] [place] [facility] [address] [id number] [place] [address] Jul, [facility] [place] [facility] [address] [id number], [place] [address] Jul, [facility] [place] [facility] [address] [id number], [place] [address] Jun, [facility] [place] [facility] [address] [id number] [place] [address] Jun, [facility] [place] [facility] [address] [id number] [place] [address] Jun, [facility] [place] [facility] [address] [id number] [place] [address] May, [facility] [place] [facility] [address] [id number] [place] [address] May, [facility] [place] [facility] [address] [id number] [place] [address] May, [facility] [place] [facility] [address] [id number] [place] [address] May, [facility] [place] [facility] [address] [id number] [place] [address] May, [facility] [place] [facility] [address] [id number] [place] [address] May, [facility] [place] [facility] [address] [facility] [id number] [place] [address] May, [facility] [place] [facility] [address] [facility] [id number] [place] [address] Apr, [facility] [place] [facility] [address] [id number], [place] [address] 17 Apr, 2013 [facility] [place] [facility] [address] [id number], [place] [address] 12 Apr, 2013 [facility] [place] [facility] [address] [id number] [place] [address] 11 Apr, 2013 [facility] [place] [facility] [address] [facility] [id number] [place] [address] 05 Apr, 2013 [facility] [place] [facility] [address] [facility] [id number] [place] [address] Mar, [facility] [place] [facility] [address] [id number] [place] [address] Mar, [facility] [place] [facility] [address] [id number] [place] [address] Mar, [facility] [place] [facility] [address] [id number] [place] [address] Mar, [facility] [place] [facility] [address] [id number] [place] [address] Feb, [facility] [place] [facility] [address] [id number] [place] [address] Feb, [facility] [place] [facility] [address] [id number] [place] [address] Feb, [facility] [place] [facility] [address] [id number] [place] [address] Feb, [facility] [place] [facility] [address] [id number] [place] [address] Feb, [facility] [place] [facility] [address] [id number] [place] [address] Feb, [facility] [place] [facility] [address] [id number] [place] [address] Feb, [facility] [place] [facility] [address] [id number] [place] [address] Feb, [facility] [place] [facility] [address] [id number] [place] [address] Jan, [facility] [place] [facility] [address] [id number] [place] [address] Jan, [facility] [place] [facility] [address] [id number] [place] [address] Jan, [facility] [place] [facility] [address] [id number] [place] [address] Jan, [facility] [place] [facility] [address] [id number] [place] [address] Jan, [facility] [address] [id number] [place] [address] Jan, [facility] [place] [facility] [address] [id number] [place] [address] Jan, [facility] [place] [facility] [address] [id number] [place] [address] December, [facility] [place] [facility] [address] [id number] [place] [address] December, [facility] [address] [id number] [place] [address] 30 Nov, 2012 [facility] [place] [facility] [address] [id number] [place] [address] Nov, [facility] [place] [facility] [address] [id number] [place] [address] Nov, [facility] [place] [facility] [address] [id number] [place] [address] Nov, [facility] [place] [facility] [address] [id number] [place] [address] 24 Nov, 2012 [facility] [place] [facility] [address] [id number] [place] [address] Nov, [facility] [place] [facility] [address] [id number] [place] [address] Nov, [facility] [place] [facility] [address] [id number], [place] [address] 15 Nov, 2012 [facility] [place] [facility] [address] [id number] [place] [address] 11 Nov, 2012 [facility] [place] [facility] [address] [id number] [place] [address] 10 Nov, 2012 [facility] [place] [facility] [address] [id number] [place] [address] 08 Nov, 2012 [facility] [place] [facility] [address] [id number] [place] [address] 05 Nov, 2012 [facility] [address] [id number] [place] [address] Nov, [facility] [place] [facility] [address] [id number] [place] [address] Nov, [facility] [address] [id number] [place] [address] Oct, [facility] [place] [facility] [address] [id number] [place] [address] Oct, [facility] [address] [id number] [place] [address] Oct, [facility] [address] [id number] [place] [address] Oct, [facility] [address] [id number] [place] [address] Oct, [facility] [address] [id number] [place] [address] Oct, [facility] [address] [id number] [place] [address] Oct, [facility] [address] [id number] [place] [address] Oct, [facility] [address] [id number] [place] [address] Oct, [facility] [place] [facility] [address] [id number] [place] [address] Sep, [facility] [place] [facility] [address] [id number] [place] [address] Aug, [facility] [place] [facility] [address] [id number] [place] [address] Aug, [facility] [place] [facility] [address] [id number] [place] [address] Aug, [facility] [place] [facility] [address] [id number] [place] [address] Aug, [facility] [place] [facility] [address] [id number] [place] [address] 31 Jul, 2012 [facility] [place] [facility] [address] [id number] [place] [address] 31 Jul, 2012 [facility] [place] [facility] [address] [id number] [place] [address] Jul, [facility] [address] [id number] [place] [address] 19 Jul, 2012 [facility] [place] [facility] [address] [id number] [place] [address] Jul, [facility] [address] [id number] [place] [address] 15 Jul, 2012 [facility] [place] [facility] [address] [id number] [place] [address] 15 Jul, 2012 [facility] [place] [facility] [address] [id number] [place] [address] 14 Jul, 2012 [facility] [place] [facility] [address] [id number] [place] [address] 14 Jul, 2012 [facility] [place] [facility] [address] [id number] [place] [address] May, [facility] [place] [facility] [address] [id number] [place] [address] 22 May, 2012 [facility] [place] [facility] [address] [id number] [place] [address] 16 May, 2012 [facility] [place] [facility] [address] [id number] [place] [address] 16 May, 2012 [facility] [place] [facility] [address] [id number] [place] [address] 12 May, 2012 [facility] [place] [facility] [address] [id number] [place] [address] May, [facility] [place] [facility] [address] [id number] [place] [address] 27 Apr, 2012 [facility] [place] [facility] [address] [id number] [place] [address] 27 Apr, 2012 [facility] [place] [facility] [address] [id number] [place] [address] 24 Apr, 2012 [facility] [place] [facility] [address] [id number] [place] [address] 18 Apr, 2012 [facility] [place] [facility] [address] [id number] [place] [address] 14 Apr, 2012 [facility] [place] [facility] [address] [id number] [place] [address] 12 Apr, 2012 [facility] [place] [facility] [address] [id number] [place] [address] Mar, [facility] [place] [facility] [address] [id number] [place] [address] Feb, [facility] [place] [facility] [address] [id number] [place] [address] Feb, [facility] [place] [facility] [address] [id number] [place] [address] Feb, [facility] [place] [facility] [address] [id number] [place] [address] Jan, [facility] [place] [facility] [address] [id number] [place] [address] December, [facility] [place] [facility] [address] [id number] [place] [address] December, [facility] [place] [facility] [address] [id number] [place] [address] December, [facility] [place] [facility] [address] [id number] [place] [address] December, [facility] [place] [facility] [address] [id number] [place] [address] December, [facility] [address] [id number] [place] [address] December, [facility] [address] [id number] [place] [address] Nov, [facility] [address] [id number] [place] [address] Nov, [facility] [address] [id number] [place] [address] 17 Nov, 2011 [facility] [address] [id number] [place] [address] Nov, [facility] [address] [id number] [place] [address] 16 Nov, 2011 [facility] [address] [id number] [place] [address] 13 Nov, 2011 [facility] [address] [id number] [place] [address] 12 Nov, 2011 [facility] [address] [id number] [place] [address] Nov, [facility] [address] [id number] [place] [address] 05 Nov, 2011 [facility] [address] [id number] [place] [address] 04 Nov, 2011 [facility] [address] [id number] [place] [address] 30 Oct, 2011 [facility] [place] [facility] [address] [id number] [place] [address] 29 Oct, 2011 [facility] [address] [id number] [place] [address] 28 Oct, 2011 [facility] [address] [id number] [place] [address] Oct, [facility] [place] [facility] [address] [id number] [place] [address] 26 Oct, 2011 [facility] [place] [facility] [address] [id number] [place] [address] 23 Oct, 2011 [facility] [place] [facility] [address] [id number] [place] [address] 21 Oct, 2011 [facility] [place] [facility] [address] [id number] [place] [address] 19 Oct, 2011 [facility] [place] [facility] [address] [id number] [place] [address] 08 Oct, 2011 [facility] [place] [facility] [address] [id number] [place] [address] 07 Oct, 2011 [facility] [place] [facility] [address] [id number] [place] [address] 06 Oct, 2011 [facility] [place] [facility] [address] [id number] [place] [address] 05 Oct, 2011 [facility] [place] [facility] [address] [id number] [place] [address] 16 Sep, 2011 [facility] [place] [facility] [address] [id number] [place] [address] 14 Sep, 2011 [facility] [place] [facility] [address] [id number] [place] [address] 12 Sep, 2011 [facility] [place] [facility] [address] [id number] [place] [address] 10 Sep, 2011 [facility] [place] [facility] [address] [id number] [place] [address] 06 Sep, 2011 [facility] [place] [facility] [address] [id number] [place] [address] 06 Sep, 2011 [facility] [place] [facility] [address] [facility] [id number] [place] [address] 06 Sep, 2011 [facility] [place] [facility] [address] [id number] [place] [address] 06 Sep, 2011 [facility] [address] [id number] [place] [address] Sep, [facility] [address] [id number] [place] [address] 30 Aug, 2011 [facility] [address] [id number] [place] [address] Aug, [facility] [address] [id number] [place] [address] Aug, [facility] [address] [id number] [place] [address] Aug, [facility] [address] [id number] [place] [address] Aug, [facility] [address] [id number] [place] [address] Aug, [facility] [address] [id number] [place] [address] Aug, [facility] [address] [id number] [place] [address] 24 Jul, 2011 [facility] [address] [id number] [place] [address] 16 Jul, 2011 [facility] [address] [id number] [place] [address] 16 Jul, 2011 [facility] [address] [id number] [place] [address] 14 Jul, 2011 [facility] [place] [facility] [address] [id number] [place] [address] 30 Jun, 2011 [facility] [address] [id number] [place] [address] Jun, [facility] [address] [id number] [place] [address] May, [facility] [place] [facility] [address] [facility] [id number] [place] [address] Mar, [facility] [place] [facility] [address] [facility] [id number], [place] [address] Jan, [facility] [place] [facility] [address] [facility] [id number] [place] [address] May, IMMUNIZATIONS No Known Immunizations SOCIAL HISTORY Never Assessed REASON FOR VISIT [facility] PLAN OF CARE VITAL SIGNS MEDICATIONS Unknown [...]
--- OUTSIDE RECORDS SUMMARY | 2019-03-23 07:08 | XMS REPORT ---
Author Author Migration, Doctor Organization [facility] Address Unknown Phone Unavailable Care Team Providers Care Plater Production Name Role Phone Migration, Doctor Unavailable Unavailable PROBLEMS Type Condition ICD9-CM Code ZUT93-WO Code Onset Dates Condition Status SNOMED Code Problem Other postablative hypothyroidism 244.1 Active 069963748 Problem Major depressive disorder, recurrent episode, severe, without mention of psychotic behavior 296.33 Active 81280730 ALLERGIES No Information ENCOUNTERS Encounter Location Date Diagnosis [place] [id number] [place] [address] Sep, Unspecified mood [affective] disorder [place] [id number] [place] [address] Aug, Unspecified mood [affective] disorder [place] [id number] [place] [address] Jul, Unspecified mood [affective] disorder [address] [place] [id number] [place] [address] Jun, Unspecified mood [affective] disorder [place] [id number] [place] [address] Mar, Affective disorder 296.90 [place] [id number] [place] [address] Mar, [place] [id number] [place] [address] Feb, Nexplanon removal V25.43 and Initiation of OCP (BCP) V25.01 [place] [id number] [place] [address] Feb, Episodic mood disorder 296.90 [place] [id number] [place] [address] [place] [address] Feb, [facility] [address], [place] [address] Feb, Routine gynecological examination V72.31 ; Pap test, as part of routine gynecological examination V76.2 ; Breast cancer screening V76.10 ; Nexplanon in place V45.52 and Rash 782.1 [facility] [address], [place] [address] Jan, Episodic mood disorder 296.90 [facility] [address], [place] [address] Jan, [facility] [address], [place] [address] December, Episodic mood disorder 296.90 [facility] [address], [place] [address] December, [facility] [address], [place] [address] December, [facility] [address], [place] [address] December, [facility] [address], [place] [address] Nov, [facility] [address], [place] [address] Nov, [facility] [address], [place] [address] Nov, [facility] [address], [place] [address] Oct, [facility] [address], [place] [address] Oct, [facility] [id number] [address] Oct, [facility] [id number] [place] [address] Oct, [facility] [place] [facility] [address] [id number] [place] [address] Oct, [facility] [place] [facility] [address] [id number] [place] [address] Oct, [facility] [place] [facility] [address] [id number] [place] [address] Sep, 2014 [facility] [place] [facility] [address] [id number] [place] [address] Sep, 2014 [facility] [place] [facility] [address] [id number] [place] [address] Sep, 2014 [facility] [place] [facility] [address] [id number] [place] [address] Sep, 2014 [facility] [place] [facility] [address] [id number] [place] [address] Sep, [facility] [place] [facility] [address] [id number] [place] [address] Sep, [facility] [place] [facility] [address] [id number] [place] [address] Aug, [facility] [place] [facility] [address] [id number] [place] [address] Aug, [facility] [place] [facility] [address] [id number] [place] [address] Aug, [facility] [place] [facility] [address] [id number] [place] [address] Aug, [facility] [place] [facility] [address] [id number] [place] [address] Aug, [facility] [place] [facility] [address] [id number] [place] [address] Aug, [facility] [place] [facility] [address] [id number] [place] [address] Aug, [facility] [place] [facility] [address] [id number] [place] [address] 14 Aug, 2014 [facility] [place] [facility] [address] [id number] [place] [address] Aug, [facility] [place] [facility] [address] [id number] [place] [address] Aug, [facility] [place] [facility] [address] [id number] [place] [address] Aug, [facility] [place] [facility] [address] [id number] [place] [address] Aug, [facility] [place] [facility] [address] [id number] [place] [address] Aug, [facility] [place] [facility] [address] [id number] [place] [address] Aug, [facility] [place] [facility] [address] [id number] [place] [address] Aug, [facility] [place] [facility] [address] [id number] [place] [address] Aug, [facility] [place] [facility] [address] [id number] [place] [address] Jul, [facility] [place] [facility] [address] [id number], [place] [address] 15 Jul, 2014 [facility] [place] [facility] [address] [id number], [place] [address] 15 Jul, 2014 [facility] [place] [facility] [address] [id number] [place] [address] Jul, [facility] [place] [facility] [address] [id number] [place] [address] Jul, [facility] [place] [facility] [address] [id number] [place] [address] Jul, [facility] [place] [facility] [address] [id number] [place] [address] 11 Jul, 2014 [facility] [place] [facility] [address] [id number] [place] [address] Jul, [facility] [place] [facility] [address] [id number] [place] [address] Jul, [facility] [place] [facility] [address] [id number] [place] [address] 05 Jul, 2014 [facility] [place] [facility] [address] [id number] [place] [address] 05 Jul, 2014 [facility] [place] [facility] [address] [id number] [place] [address] Jul, [facility] [place] [facility] [address] [id number] [place] [address] Jul, [facility] [place] [facility] [address] [id number] [place] [address] Jun, [facility] [place] [facility] [address] [id number] [place] [address] Jun, [facility] [place] [facility] [address] [id number] [place] [address] Jun, [facility] [place] [facility] [address] [facility] [facility] [id number] [place] [address] Jun, [facility] [place] [facility] [address] [id number] [place] [address] Jun, [facility] [place] [facility] [address] [id number] [place] [address] Jun, [facility] [place] [facility] [address] [id number] [place] [address] Jun, [facility] [place] [facility] [address] [id number] [place] [address] Jun, [facility] [place] [facility] [address] [id number], [place] [address] Jun, [facility] [place] [facility] [address] [id number] [place] [address] Jun, [facility] [place] [facility] [address] [id number] [place] [address] Jun, [facility] [place] [facility] [address] [id number] [place] [address] Jun, [facility] [place] [facility] [address] [id number] [place] [address] Jun, [facility] [place] [facility] [address] [id number] [place] [address] Jun, [facility] [place] [facility] [address] [id number] [place] [address] May, [facility] [place] [facility] [address] [id number] [place] [address] May, [facility] [place] [facility] [address] [id number] [place] [address] May, [facility] [place] [facility] [address] [id number] [place] [address] May, [facility] [place] [facility] [address] [id number] [place] [address] May, [facility] [place] [facility] [address] [id number] [place] [address] May, [facility] [place] [facility] [address] [id number] [place] [address] May, [facility] [place] [facility] [address] [id number] [place] [address] May, [facility] [place] [facility] [address] [id number] [place] [address] May, [facility] [place] [facility] [address] [id number] [place] [address] May, [facility] [place] [facility] [address] [id number] [place] [address] 30 Sep, 2013 [facility] [place] [facility] [address] [id number] [place] [address] 30 Sep, 2013 [facility] [place] [facility] [address] [id number] [place] [address] 19 Sep, 2013 [facility] [place] [facility] [address] [id number] [place] [address] 19 Sep, 2013 [facility] [place] [facility] [address] [id number] [place] [address] 18 Sep, 2013 [facility] [place] [facility] [address] [id number] [place] [address] 18 Sep, 2013 [facility] [place] [facility] [address] [id number] [place] [address] 18 Sep, 2013 [facility] [place] [facility] [address] [id number] [place] [address] 18 Sep, 2013 [facility] [place] [facility] [address] [id number] [place] [address] 16 Sep, 2013 [facility] [place] [facility] [address] [id number] [place] [address] 16 Sep, 2013 [facility] [place] [facility] [address] [id number] [place] [address] 08 Sep, 2013 [facility] [place] [facility] [address] [id number] [place] [address] 08 Sep, 2013 [facility] [place] [facility] [address] [id number] [place] [address] 08 Sep, 2013 [facility] [place] [facility] [address] [id number] [place] [address] 08 Sep, 2013 [facility] [place] [facility] [address] [id number] [place] [address] 04 Sep, 2013 [facility] [place] [facility] [address] [id number] [place] [address] 04 Sep, 2013 [facility] [place] [facility] [address] [id number] [place] [address] Mar, [facility] [place] [facility] [address] [id number] [place] [address] Mar, [facility] [place] [facility] [address] [id number] [place] [address] Mar, [facility] [place] [facility] [address] [id number] [place] [address] Jan, [facility] [place] [facility] [address] [id number] [place] [address] 23 Jan, 2014 [facility] [place] [facility] [address] [id number] [place] [address] Jan, [facility] [place] [facility] [address] [id number] [place] [address] 18 Jan, 2014 [facility] [place] [facility] [address] [id number] [place] [address] 16 Jan, 2014 [facility] [place] [facility] [address] [id number] [place] [address] 16 Jan, 2014 [facility] [place] [facility] [address] [id number] [place] [address] 16 Jan, 2014 [facility] [place] [facility] [address] [id number] [place] [address] 16 Jan, 2014 [facility] [place] [facility] [address] [id number] [place] [address] Jan, [facility] [place] [facility] [address] [id number] [place] [address] Jan, [facility] [place] [facility] [address] [id number] [place] [address] Jan, [facility] [place] [facility] [address] [id number] [place] [address] 11 Jan, 2014 [facility] [place] [facility] [address] [id number] [place] [address] Jan, [facility] [place] [facility] [address] [id number] [place] [address] Jan, [facility] [place] [facility] [address] [id number] [place] [address] Jan, [facility] [place] [facility] [address] [id number] [place] [address] Jan, [facility] [place] [facility] [address] [id number] [place] [address] December, [facility] [place] [facility] [address] [id number] [place] [address] December, [facility] [place] [facility] [address] [id number] [place] [address] December, [facility] [place] [facility] [address] [id number] [place] [address] December, [facility] [place] [facility] [address] [id number] [place] [address] December, [facility] [place] [facility] [address] [id number] [place] [address] Nov, [facility] [place] [facility] [address] [id number] [place] [address] Nov, [facility] [place] [facility] [address] [id number] [place] [address] Nov, [facility] [place] [facility] [address] [id number] [place] [address] Nov, [facility] [place] [facility] [address] [id number] [place] [address] Nov, [facility] [place] [facility] [address] [id number] [place] [address] Nov, [facility] [place] [facility] [address] [id number] [place] [address] Nov, [facility] [place] [facility] [address] [id number], [place] [address] 24 Nov, 2013 [facility] [place] [facility] [address] [id number] [place] [address] Nov, [facility] [place] [facility] [address] [id number] [place] [address] Nov, [facility] [place] [facility] [address] [facility] [address] [facility] [id number] [place] [address] Oct, [facility] [place] [facility] [address] [id number] [place] [address] Oct, [facility] [place] [facility] [address] [id number] [place] [address] Oct, [facility] [place] [facility] [address] [id number] [place] [address] Oct, [facility] [place] [facility] [address] [facility] [address] [facility] [id number] [place] [address] Oct, [facility] [place] [facility] [address] [id number] [place] [address] Oct, [facility] [place] [facility] [address] [id number] [place] [address] Oct, [facility] [place] [facility] [address] [facility] [address] [facility] [id number] [place] [address] Oct, [facility] [place] [facility] [address] [id number] [place] [address] Oct, [facility] [place] [facility] [address] [id number] [place] [address] Sep, [facility] [place] [facility] [address] [id number] [place] [address] Sep, [facility] [place] [facility] [address] [id number] [place] [address] Sep, [facility] [place] [facility] [address] [facility] [address] [facility] [id number] [place] [address] Sep, [facility] [place] [facility] [address] [id number] [place] [address] Sep, [facility] [place] [facility] [address] [id number] [place] [address] Sep, [facility] [place] [facility] [address] [id number] [place] [address] Sep, [facility] [place] [facility] [address] [id number] [place] [address] Aug, [facility] [place] [facility] [address] [id number] [place] [address] Aug, [facility] [place] [facility] [address] [id number] [place] [address] Aug, [facility] [place] [facility] [address] [id number] [place] [address] Aug, [facility] [place] [facility] [address] [id number] [place] [address] Aug, [facility] [place] [facility] [address] [id number] [place] [address] Aug, [facility] [place] [facility] [address] [id number] [place] [address] Aug, [facility] [place] [facility] [address] [id number] [place] [address] Aug, [facility] [place] [facility] [address] [id number], [place] [address] Jul, [facility] [place] [facility] [address] [id number] [place] [address] Jul, [facility] [place] [facility] [address] [id number] [place] [address] Jul, [facility] [place] [facility] [address] [id number], [place] [address] Jul, [facility] [place] [facility] [address] [id number], [place] [address] Jun, [facility] [place] [facility] [address] [id number] [place] [address] Jun, [facility] [place] [facility] [address] [id number] [place] [address] Jun, [facility] [place] [facility] [address] [id number] [place] [address] May, [facility] [place] [facility] [address] [id number] [place] [address] May, [facility] [place] [facility] [address] [id number] [place] [address] May, [facility] [place] [facility] [address] [id number] [place] [address] May, [facility] [place] [facility] [address] [id number] [place] [address] May, [facility] [place] [facility] [address] [id number] [place] [address] May, [facility] [place] [facility] [address] [facility] [address] [facility] [id number] [place] [address] May, [facility] [place] [facility] [address] [facility] [address] [facility] [id number] [place] [address] Apr, [facility] [place] [facility] [address] [id number], [place] [address] 17 Apr, 2013 [facility] [place] [facility] [address] [id number], [place] [address] 12 Apr, 2013 [facility] [place] [facility] [address] [id number] [place] [address] 11 Apr, 2013 [facility] [place] [facility] [address] [facility] [address] [facility] [id number] [place] [address] 05 Apr, 2013 [facility] [place] [facility] [address] [facility] [address] [facility] [id number] [place] [address] Mar, [facility] [place] [facility] [address] [id number] [place] [address] Mar, [facility] [place] [facility] [address] [id number] [place] [address] Mar, [facility] [place] [facility] [address] [id number] [place] [address] Mar, [facility] [place] [facility] [address] [id number] [place] [address] Feb, [facility] [place] [facility] [address] [id number] [place] [address] Feb, [facility] [place] [facility] [address] [id number] [place] [address] Feb, [facility] [place] [facility] [address] [id number] [place] [address] Feb, [facility] [place] [facility] [address] [id number] [place] [address] Feb, [facility] [place] [facility] [address] [id number] [place] [address] Feb, [facility] [place] [facility] [address] [id number] [place] [address] Feb, [facility] [place] [facility] [address] [id number] [place] [address] Feb, [facility] [place] [facility] [address] [id number] [place] [address] Jan, [facility] [place] [facility] [address] [id number] [place] [address] Jan, [facility] [place] [facility] [address] [id number] [place] [address] Jan, [facility] [place] [facility] [address] [id number] [place] [address] Jan, [facility] [place] [facility] [address] [id number] [place] [address] Jan, [facility] [address] [id number] [place] [address] Jan, [facility] [place] [facility] [address] [id number] [place] [address] Jan, [facility] [place] [facility] [address] [id number] [place] [address] December, [facility] [place] [facility] [address] [id number] [place] [address] December, [facility] [address] [id number] [place] [address] 30 Nov, 2012 [facility] [place] [facility] [address] [id number] [place] [address] Nov, [facility] [place] [facility] [address] [id number] [place] [address] Nov, [facility] [place] [facility] [address] [id number] [place] [address] Nov, [facility] [place] [facility] [address] [id number] [place] [address] 24 Nov, 2012 [facility] [place] [facility] [address] [id number] [place] [address] Nov, [facility] [place] [facility] [address] [id number] [place] [address] Nov, [facility] [place] [facility] [address] [id number], [place] [address] 15 Nov, 2012 [facility] [place] [facility] [address] [id number] [place] [address] 11 Nov, 2012 [facility] [place] [facility] [address] [id number] [place] [address] 10 Nov, 2012 [facility] [place] [facility] [address] [id number] [place] [address] 08 Nov, 2012 [facility] [place] [facility] [address] [id number] [place] [address] 05 Nov, 2012 [facility] [address] [id number] [place] [address] Nov, [facility] [place] [facility] [address] [id number] [place] [address] Nov, [facility] [address] [id number] [place] [address] Oct, [facility] [place] [facility] [address] [id number] [place] [address] Oct, [facility] [address] [id number] [place] [address] Oct, [facility] [address] [id number] [place] [address] Oct, [facility] [address] [id number] [place] [address] Oct, [facility] [address] [id number] [place] [address] Oct, [facility] [address] [id number] [place] [address] Oct, [facility] [address] [id number] [place] [address] Oct, [facility] [address] [id number] [place] [address] Oct, [facility] [place] [facility] [address] [id number] [place] [address] Sep, [facility] [place] [facility] [address] [id number] [place] [address] Aug, [facility] [place] [facility] [address] [id number] [place] [address] Aug, [facility] [place] [facility] [address] [id number] [place] [address] Aug, [facility] [place] [facility] [address] [id number] [place] [address] Aug, [facility] [place] [facility] [address] [id number] [place] [address] 31 Jul, 2012 [facility] [place] [facility] [address] [id number] [place] [address] 31 Jul, 2012 [facility] [place] [facility] [address] [id number] [place] [address] Jul, [facility] [address] [id number] [place] [address] 19 Jul, 2012 [facility] [place] [facility] [address] [id number] [place] [address] Jul, [facility] [address] [id number] [place] [address] 15 Jul, 2012 [facility] [place] [facility] [address] [id number] [place] [address] 15 Jul, 2012 [facility] [place] [facility] [address] [id number] [place] [address] 14 Jul, 2012 [facility] [place] [facility] [address] [id number] [place] [address] 14 Jul, 2012 [facility] [place] [facility] [address] [id number] [place] [address] May, [facility] [place] [facility] [address] [id number] [place] [address] 22 May, 2012 [facility] [place] [facility] [address] [id number] [place] [address] 16 May, 2012 [facility] [place] [facility] [address] [id number] [place] [address] 16 May, 2012 [facility] [place] [facility] [address] [id number] [place] [address] 12 May, 2012 [facility] [place] [facility] [address] [id number] [place] [address] May, [facility] [place] [facility] [address] [id number] [place] [address] 27 Apr, 2012 [facility] [place] [facility] [address] [id number] [place] [address] 27 Apr, 2012 [facility] [place] [facility] [address] [id number] [place] [address] 24 Apr, 2012 [facility] [place] [facility] [address] [id number] [place] [address] 18 Apr, 2012 [facility] [place] [facility] [address] [id number] [place] [address] 14 Apr, 2012 [facility] [place] [facility] [address] [id number] [place] [address] 12 Apr, 2012 [facility] [place] [facility] [address] [id number] [place] [address] Mar, [facility] [place] [facility] [address] [id number] [place] [address] Feb, [facility] [place] [facility] [address] [id number] [place] [address] Feb, [facility] [place] [facility] [address] [id number] [place] [address] Feb, [facility] [place] [facility] [address] [id number] [place] [address] Jan, [facility] [place] [facility] [address] [id number] [place] [address] December, [facility] [place] [facility] [address] [id number] [place] [address] December, [facility] [place] [facility] [address] [id number] [place] [address] December, [facility] [place] [facility] [address] [id number] [place] [address] December, [facility] [place] [facility] [address] [id number] [place] [address] December, [facility] [address] [id number] [place] [address] December, [facility] [address] [id number] [place] [address] Nov, [facility] [address] [id number] [place] [address] Nov, [facility] [facility] [address] [id number] [place] [address] 17 Nov, 2011 [facility] [address] [id number] [place] [address] Nov, [facility] [address] [id number] [place] [address] 16 Nov, 2011 [facility] [address] [id number] [place] [address] 13 Nov, 2011 [facility] [address] [id number] [place] [address] 12 Nov, 2011 [facility] [address] [id number] [place] [address] Nov, [facility] [address] [id number] [place] [address] 05 Nov, 2011 [facility] [address] [id number] [place] [address] 04 Nov, 2011 [facility] [address] [id number] [place] [address] 30 Oct, 2011 [facility] [place] [facility] [address] [id number] [place] [address] 29 Oct, 2011 [facility] [address] [id number] [place] [address] 28 Oct, 2011 [facility] [address] [id number] [place] [address] Oct, [facility] [place] [facility] [address] [id number] [place] [address] 26 Oct, 2011 [facility] [place] [facility] [address] [id number] [place] [address] 23 Oct, 2011 [facility] [place] [facility] [address] [id number] [place] [address] 21 Oct, 2011 [facility] [place] [facility] [address] [id number] [place] [address] 19 Oct, 2011 [facility] [place] [facility] [address] [id number] [place] [address] 08 Oct, 2011 [facility] [place] [facility] [address] [id number] [place] [address] 07 Oct, 2011 [facility] [place] [facility] [address] [id number] [place] [address] 06 Oct, 2011 [facility] [place] [facility] [address] [id number] [place] [address] 05 Oct, 2011 [facility] [place] [facility] [address] [id number] [place] [address] 16 Sep, 2011 [facility] [place] [facility] [address] [id number] [place] [address] 14 Sep, 2011 [facility] [place] [facility] [address] [id number] [place] [address] 12 Sep, 2011 [facility] [place] [facility] [address] [id number] [place] [address] 10 Sep, 2011 [facility] [place] [facility] [address] [id number] [place] [address] 06 Sep, 2011 [facility] [place] [facility] [address] [id number] [place] [address] 06 Sep, 2011 [facility] [place] [facility] [address] [facility] [address] [facility] [id number] [place] [address] 06 Sep, 2011 [facility] [place] [facility] [address] [id number] [place] [address] 06 Sep, 2011 [facility] [address] [id number] [place] [address] Sep, [facility] [address] [id number] [place] [address] 30 Aug, 2011 [facility] [address] [id number] [place] [address] Aug, [facility] [address] [id number] [place] [address] Aug, [facility] [address] [id number] [place] [address] Aug, [facility] [address] [id number] [place] [address] Aug, [facility] [address] [id number] [place] [address] Aug, [facility] [address] [id number] [place] [address] Aug, [facility] [address] [id number] [place] [address] 24 Jul, 2011 [facility] [address] [id number] [place] [address] 16 Jul, 2011 [facility] [address] [id number] [place] [address] 16 Jul, 2011 [facility] [address] [id number] [place] [address] 14 Jul, 2011 [facility] [place] [facility] [address] [id number] [place] [address] 30 Jun, 2011 [facility] [address] [id number] [place] [address] Jun, [facility] [address] [id number] [place] [address] May, [facility] [address] [facility] [id number] [place] [address] Mar, [facility] [address] [facility] [id number], [place] [address] Jan, [facility] [address] [facility] [id number] [place] [address] May, IMMUNIZATIONS No Known Immunizations SOCIAL HISTORY Never Assessed REASON FOR VISIT [facility] PLAN OF CARE VITAL SIGNS MEDICATIONS Unknown [...]
--- OUTSIDE RECORDS SUMMARY | 2019-03-23 07:09 | XMS REPORT ---
Author Author Migration, Doctor Organization [facility] Address Unknown Phone Unavailable Care Team Providers Care [employer]'S Assistant Name Role Phone Migration, Doctor Unavailable Unavailable PROBLEMS Type Condition ICD9-CM Code XKS03-QY Code Onset Dates Condition Status SNOMED Code Problem Other postablative hypothyroidism 244.1 Active 102236241 Problem Major depressive disorder, recurrent episode, severe, without mention of psychotic behavior 296.33 Active 43594373 ALLERGIES No Information ENCOUNTERS Encounter Location Date Diagnosis [place] [id number] [place] [address] Sep, Unspecified mood [affective] disorder [place] [id number] [place] [address] Aug, Unspecified mood [affective] disorder [place] [id number] [place] [address] Jul, Unspecified mood [affective] disorder 9 [place] [id number] [place] [address] Jun, Unspecified mood [affective] disorder [place] [id number] [place] [address] Mar, Affective disorder 296.90 [place] [id number] [place] [address] Mar, [place] [id number] [place] [address] Feb, Nexplanon removal V25.43 and Initiation of OCP (BCP) V25.01 [place] [id number] [place] [address] Feb, Episodic mood disorder 296.90 [place] [id number] [place] [address] [place] [address] Feb, [facility] [address], [place] [address] Feb, Routine gynecological examination V72.31 ; Pap test, as part of routine gynecological examination V76.2 ; Breast cancer screening V76.10 ; Nexplanon in place V45.52 and Rash 782.1 [facility] [address], [place] [address] Jan, Episodic mood disorder 296.90 [facility] [address], [place] [address] Jan, [facility] [address], [place] [address] December, Episodic mood disorder 296.90 [facility] [address], [place] [address] December, [facility] [address], [place] [address] December, [facility] [address], [place] [address] December, [facility] [address], [place] [address] Nov, [facility] [address], [place] [address] Nov, [facility] [address], [place] [address] Nov, [facility] [address], [place] [address] Oct, [facility] [address], [place] [address] Oct, [facility] [id number] [address] Oct, [facility] [id number] [place] [address] Oct, [facility] [place] [facility] [address] [id number] [place] [address] Oct, [facility] [place] [facility] [address] [id number] [place] [address] Oct, [facility] [place] [facility] [address] [id number] [place] [address] Sep, 2014 [facility] [place] [facility] [address] [id number] [place] [address] Sep, 2014 [facility] [place] [facility] [address] [id number] [place] [address] Sep, 2014 [facility] [place] [facility] [address] [id number] [place] [address] Sep, 2014 [facility] [place] [facility] [address] [id number] [place] [address] Sep, [facility] [place] [facility] [address] [id number] [place] [address] Sep, [facility] [place] [facility] [address] [id number] [place] [address] Aug, [facility] [place] [facility] [address] [id number] [place] [address] Aug, [facility] [place] [facility] [address] [id number] [place] [address] Aug, [facility] [place] [facility] [address] [id number] [place] [address] Aug, [facility] [place] [facility] [address] [id number] [place] [address] Aug, [facility] [place] [facility] [address] [id number] [place] [address] Aug, [facility] [place] [facility] [address] [id number] [place] [address] Aug, [facility] [place] [facility] [address] [id number] [place] [address] 14 Aug, 2014 [facility] [place] [facility] [address] [id number] [place] [address] Aug, [facility] [place] [facility] [address] [id number] [place] [address] Aug, [facility] [place] [facility] [address] [id number] [place] [address] Aug, [facility] [place] [facility] [address] [id number] [place] [address] Aug, [facility] [place] [facility] [address] [id number] [place] [address] Aug, [facility] [place] [facility] [address] [id number] [place] [address] Aug, [facility] [place] [facility] [address] [id number] [place] [address] Aug, [facility] [place] [facility] [address] [id number] [place] [address] Aug, [facility] [place] [facility] [address] [id number] [place] [address] Jul, [facility] [place] [facility] [address] [id number], [place] [address] 15 Jul, 2014 [facility] [place] [facility] [address] [id number], [place] [address] 15 Jul, 2014 [facility] [place] [facility] [address] [id number] [place] [address] Jul, [facility] [place] [facility] [address] [id number] [place] [address] Jul, [facility] [place] [facility] [address] [id number] [place] [address] Jul, [facility] [place] [facility] [address] [id number] [place] [address] 11 Jul, 2014 [facility] [place] [facility] [address] [id number] [place] [address] Jul, [facility] [place] [facility] [address] [id number] [place] [address] Jul, [facility] [place] [facility] [address] [id number] [place] [address] 05 Jul, 2014 [facility] [place] [facility] [address] [id number] [place] [address] 05 Jul, 2014 [facility] [place] [facility] [address] [id number] [place] [address] Jul, [facility] [place] [facility] [address] [id number] [place] [address] Jul, [facility] [place] [facility] [address] [id number] [place] [address] Jun, [facility] [place] [facility] [address] [id number] [place] [address] Jun, [facility] [place] [facility] [address] [id number] [place] [address] Jun, [facility] [place] [facility] [address] [facility] [id number] [place] [address] Jun, [facility] [place] [facility] [address] [id number] [place] [address] Jun, [facility] [place] [facility] [address] [id number] [place] [address] Jun, [facility] [place] [facility] [address] [id number] [place] [address] Jun, [facility] [place] [facility] [address] [id number] [place] [address] Jun, [facility] [place] [facility] [address] [id number] [address] Jun, [facility] [place] [facility] [address] [id number] [place] [address] Jun, [facility] [place] [facility] [address] [id number] [place] [address] Jun, [facility] [place] [facility] [address] [id number] [place] [address] Jun, [facility] [place] [facility] [address] [id number] [place] [address] Jun, [facility] [place] [facility] [address] [id number] [place] [address] Jun, [facility] [place] [facility] [address] [id number] [place] [address] May, [facility] [place] [facility] [address] [id number] [place] [address] May, [facility] [place] [facility] [address] [id number] [place] [address] May, [facility] [place] [facility] [address] [id number] [place] [address] May, [facility] [place] [facility] [address] [id number] [place] [address] May, [facility] [place] [facility] [address] [id number] [place] [address] May, [facility] [place] [facility] [address] [id number] [place] [address] May, [facility] [place] [facility] [address] [id number] [place] [address] May, [facility] [place] [facility] [address] [id number] [place] [address] May, [facility] [place] [facility] [address] [id number] [place] [address] May, [facility] [place] [facility] [address] [id number] [place] [address] 30 Sep, 2013 [facility] [place] [facility] [address] [id number] [place] [address] 30 Sep, 2013 [facility] [place] [facility] [address] [id number] [place] [address] 19 Sep, 2013 [facility] [place] [facility] [address] [id number] [place] [address] 19 Sep, 2013 [facility] [place] [facility] [address] [id number] [place] [address] 18 Sep, 2013 [facility] [place] [facility] [address] [id number] [place] [address] 18 Sep, 2013 [facility] [place] [facility] [address] [id number] [place] [address] 18 Sep, 2013 [facility] [place] [facility] [address] [id number] [place] [address] 18 Sep, 2013 [facility] [place] [facility] [address] [id number] [place] [address] 16 Sep, 2013 [facility] [place] [facility] [address] [id number] [place] [address] 16 Sep, 2013 [facility] [place] [facility] [address] [id number] [place] [address] 08 Sep, 2013 [facility] [place] [facility] [address] [id number] [place] [address] 08 Sep, 2013 [facility] [place] [facility] [address] [id number] [place] [address] 08 Sep, 2013 [facility] [place] [facility] [address] [id number] [place] [address] 08 Sep, 2013 [facility] [place] [facility] [address] [id number] [place] [address] 04 Sep, 2013 [facility] [place] [facility] [address] [id number] [place] [address] 04 Sep, 2013 [facility] [place] [facility] [address] [id number] [place] [address] Mar, [facility] [place] [facility] [address] [id number] [place] [address] Mar, [facility] [place] [facility] [address] [id number] [place] [address] Mar, [facility] [place] [facility] [address] [id number] [place] [address] Jan, [facility] [place] [facility] [address] [id number] [place] [address] 23 Jan, 2014 [facility] [place] [facility] [address] [id number] [place] [address] Jan, [facility] [place] [facility] [address] [id number] [place] [address] 18 Jan, 2014 [facility] [place] [facility] [address] [id number] [place] [address] 16 Jan, 2014 [facility] [place] [facility] [address] [id number] [place] [address] 16 Jan, 2014 [facility] [place] [facility] [address] [id number] [place] [address] 16 Jan, 2014 [facility] [place] [facility] [address] [id number] [place] [address] 16 Jan, 2014 [facility] [place] [facility] [address] [id number] [place] [address] Jan, [facility] [place] [facility] [address] [id number] [place] [address] Jan, [facility] [place] [facility] [address] [id number] [place] [address] Jan, [facility] [place] [facility] [address] [id number] [place] [address] 11 Jan, 2014 [facility] [place] [facility] [address] [id number] [place] [address] Jan, [facility] [place] [facility] [address] [id number] [place] [address] Jan, [facility] [place] [facility] [address] [id number] [place] [address] Jan, [facility] [place] [facility] [address] [id number] [place] [address] Jan, [facility] [place] [facility] [address] [id number] [place] [address] December, [facility] [place] [facility] [address] [id number] [place] [address] December, [facility] [place] [facility] [address] [id number] [place] [address] December, [facility] [place] [facility] [address] [id number] [place] [address] December, [facility] [place] [facility] [address] [id number] [place] [address] December, [facility] [place] [facility] [address] [id number] [place] [address] Nov, [facility] [place] [facility] [address] [id number] [place] [address] Nov, [facility] [place] [facility] [address] [id number] [place] [address] Nov, [facility] [place] [facility] [address] [id number] [place] [address] Nov, [facility] [place] [facility] [address] [id number] [place] [address] Nov, [facility] [place] [facility] [address] [id number] [place] [address] Nov, [facility] [place] [facility] [address] [id number] [place] [address] Nov, [facility] [place] [facility] [address] [id number], [place] [address] 24 Nov, 2013 [facility] [place] [facility] [address] [id number] [place] [address] Nov, [facility] [place] [facility] [address] [id number] [place] [address] Nov, [facility] [place] [facility] [address] [facility] [id number] [place] [address] Oct, [facility] [place] [facility] [address] [id number] [place] [address] Oct, [facility] [place] [facility] [address] [id number] [place] [address] Oct, [facility] [place] [facility] [address] [id number] [place] [address] Oct, [facility] [place] [facility] [address] [facility] [id number] [place] [address] Oct, [facility] [place] [facility] [address] [id number] [place] [address] Oct, [facility] [place] [facility] [address] [id number] [place] [address] Oct, [facility] [place] [facility] [address] [facility] [id number] [place] [address] Oct, [facility] [place] [facility] [address] [id number] [place] [address] Oct, [facility] [place] [facility] [address] [id number] [place] [address] Sep, [facility] [place] [facility] [address] [id number] [place] [address] Sep, [facility] [place] [facility] [address] [id number] [place] [address] Sep, [facility] [place] [facility] [address] [facility] [id number] [place] [address] Sep, [facility] [place] [facility] [address] [id number] [place] [address] Sep, [facility] [place] [facility] [address] [id number] [place] [address] Sep, [facility] [place] [facility] [address] [id number] [place] [address] Sep, [facility] [place] [facility] [address] [id number] [place] [address] Aug, [facility] [place] [facility] [address] [id number] [place] [address] Aug, [facility] [place] [facility] [address] [id number] [place] [address] Aug, [facility] [place] [facility] [address] [id number] [place] [address] Aug, [facility] [place] [facility] [address] [id number] [place] [address] Aug, [facility] [place] [facility] [address] [id number] [place] [address] Aug, [facility] [place] [facility] [address] [id number] [place] [address] Aug, [facility] [place] [facility] [address] [id number] [place] [address] Aug, [facility] [place] [facility] [address] [id number], [place] [address] Jul, [facility] [place] [facility] [address] [id number] [place] [address] Jul, [facility] [place] [facility] [address] [id number] [place] [address] Jul, [facility] [place] [facility] [address] [id number], [place] [address] Jul, [facility] [place] [facility] [address] [id number], [place] [address] Jun, [facility] [place] [facility] [address] [id number] [place] [address] Jun, [facility] [place] [facility] [address] [id number] [place] [address] Jun, [facility] [place] [facility] [address] [id number] [place] [address] May, [facility] [place] [facility] [address] [id number] [place] [address] May, [facility] [place] [facility] [address] [id number] [place] [address] May, [facility] [place] [facility] [address] [id number] [place] [address] May, [facility] [place] [facility] [address] [id number] [place] [address] May, [facility] [place] [facility] [address] [id number] [place] [address] May, [facility] [place] [facility] [address] [facility] [id number] [place] [address] May, [facility] [place] [facility] [address] [facility] [id number] [place] [address] Apr, [facility] [place] [facility] [address] [id number], [place] [address] 17 Apr, 2013 [facility] [place] [facility] [address] [id number], [place] [address] 12 Apr, 2013 [facility] [place] [facility] [address] [id number] [place] [address] 11 Apr, 2013 [facility] [place] [facility] [address] [facility] [id number] [place] [address] 05 Apr, 2013 [facility] [place] [facility] [address] [facility] [id number] [place] [address] Mar, [facility] [place] [facility] [address] [id number] [place] [address] Mar, [facility] [place] [facility] [address] [id number] [place] [address] Mar, [facility] [place] [facility] [address] [id number] [place] [address] Mar, [facility] [place] [facility] [address] [id number] [place] [address] Feb, [facility] [place] [facility] [address] [id number] [place] [address] Feb, [facility] [place] [facility] [address] [id number] [place] [address] Feb, [facility] [place] [facility] [address] [id number] [place] [address] Feb, [facility] [place] [facility] [address] [id number] [place] [address] Feb, [facility] [place] [facility] [address] [id number] [place] [address] Feb, [facility] [place] [facility] [address] [id number] [place] [address] Feb, [facility] [place] [facility] [address] [id number] [place] [address] Feb, [facility] [place] [facility] [address] [id number] [place] [address] Jan, [facility] [place] [facility] [address] [id number] [place] [address] Jan, [facility] [place] [facility] [address] [id number] [place] [address] Jan, [facility] [place] [facility] [address] [id number] [place] [address] Jan, [facility] [place] [facility] [address] [id number] [place] [address] Jan, [facility] [address] [id number] [place] [address] Jan, [facility] [place] [facility] [address] [id number] [place] [address] Jan, [facility] [place] [facility] [address] [id number] [place] [address] December, [facility] [place] [facility] [address] [id number] [place] [address] December, [facility] [address] [id number] [place] [address] 30 Nov, 2012 [facility] [place] [facility] [address] [id number] [place] [address] Nov, [facility] [place] [facility] [address] [id number] [place] [address] Nov, [facility] [place] [facility] [address] [id number] [place] [address] Nov, [facility] [place] [facility] [address] [id number] [place] [address] 24 Nov, 2012 [facility] [place] [facility] [address] [id number] [place] [address] Nov, [facility] [place] [facility] [address] [id number] [place] [address] Nov, [facility] [place] [facility] [address] [id number], [place] [address] 15 Nov, 2012 [facility] [place] [facility] [address] [id number] [place] [address] 11 Nov, 2012 [facility] [place] [facility] [address] [id number] [place] [address] 10 Nov, 2012 [facility] [place] [facility] [address] [id number] [place] [address] 08 Nov, 2012 [facility] [place] [facility] [address] [id number] [place] [address] 05 Nov, 2012 [facility] [address] [id number] [place] [address] Nov, [facility] [place] [facility] [address] [id number] [place] [address] Nov, [facility] [address] [id number] [place] [address] Oct, [facility] [place] [facility] [address] [id number] [place] [address] Oct, [facility] [address] [id number] [place] [address] Oct, [facility] [address] [id number] [place] [address] Oct, [facility] [address] [id number] [place] [address] Oct, [facility] [address] [id number] [place] [address] Oct, [facility] [address] [id number] [place] [address] Oct, [facility] [address] [id number] [place] [address] Oct, [facility] [address] [id number] [place] [address] Oct, [facility] [place] [facility] [address] [id number] [place] [address] Sep, [facility] [place] [facility] [address] [id number] [place] [address] Aug, [facility] [place] [facility] [address] [id number] [place] [address] Aug, [facility] [place] [facility] [address] [id number] [place] [address] Aug, [facility] [place] [facility] [address] [id number] [place] [address] Aug, [facility] [place] [facility] [address] [id number] [place] [address] 31 Jul, 2012 [facility] [place] [facility] [address] [id number] [place] [address] 31 Jul, 2012 [facility] [place] [facility] [address] [id number] [place] [address] Jul, [facility] [address] [id number] [place] [address] 19 Jul, 2012 [facility] [place] [facility] [address] [id number] [place] [address] Jul, [facility] [address] [id number] [place] [address] 15 Jul, 2012 [facility] [place] [facility] [address] [id number] [place] [address] 15 Jul, 2012 [facility] [place] [facility] [address] [id number] [place] [address] 14 Jul, 2012 [facility] [place] [facility] [address] [id number] [place] [address] 14 Jul, 2012 [facility] [place] [facility] [address] [id number] [place] [address] May, [facility] [place] [facility] [address] [id number] [place] [address] 22 May, 2012 [facility] [place] [facility] [address] [id number] [place] [address] 16 May, 2012 [facility] [place] [facility] [address] [id number] [place] [address] 16 May, 2012 [facility] [place] [facility] [address] [id number] [place] [address] 12 May, 2012 [facility] [place] [facility] [address] [id number] [place] [address] May, [facility] [place] [facility] [address] [id number] [place] [address] 27 Apr, 2012 [facility] [place] [facility] [address] [id number] [place] [address] 27 Apr, 2012 [facility] [place] [facility] [address] [id number] [place] [address] 24 Apr, 2012 [facility] [place] [facility] [address] [id number] [place] [address] 18 Apr, 2012 [facility] [place] [facility] [address] [id number] [place] [address] 14 Apr, 2012 [facility] [place] [facility] [address] [id number] [place] [address] 12 Apr, 2012 [facility] [place] [facility] [address] [id number] [place] [address] Mar, [facility] [place] [facility] [address] [id number] [place] [address] Feb, [facility] [place] [facility] [address] [id number] [place] [address] Feb, [facility] [place] [facility] [address] [id number] [place] [address] Feb, [facility] [place] [facility] [address] [id number] [place] [address] Jan, [facility] [place] [facility] [address] [id number] [place] [address] December, [facility] [place] [facility] [address] [id number] [place] [address] December, [facility] [place] [facility] [address] [id number] [place] [address] December, [facility] [place] [facility] [address] [id number] [place] [address] December, [facility] [place] [facility] [address] [id number] [place] [address] December, [facility] [address] [id number] [place] [address] December, [facility] [address] [id number] [place] [address] Nov, [facility] [address] [id number] [place] [address] Nov, [facility] [address] [address] [id number] [place] [address] 17 Nov, 2011 [facility] [address] [id number] [place] [address] Nov, [facility] [address] [id number] [place] [address] 16 Nov, 2011 [facility] [address] [id number] [place] [address] 13 Nov, 2011 [facility] [address] [id number] [place] [address] 12 Nov, 2011 [facility] [address] [id number] [place] [address] Nov, [facility] [address] [id number] [place] [address] 05 Nov, 2011 [facility] [address] [id number] [place] [address] 04 Nov, 2011 [facility] [address] [id number] [place] [address] 30 Oct, 2011 [facility] [place] [facility] [address] [id number] [place] [address] 29 Oct, 2011 [facility] [address] [id number] [place] [address] 28 Oct, 2011 [facility] [address] [id number] [place] [address] Oct, [facility] [place] [facility] [address] [id number] [place] [address] 26 Oct, 2011 [facility] [place] [facility] [address] [id number] [place] [address] 23 Oct, 2011 [facility] [place] [facility] [address] [id number] [place] [address] 21 Oct, 2011 [facility] [place] [facility] [address] [id number] [place] [address] 19 Oct, 2011 [facility] [place] [facility] [address] [id number] [place] [address] 08 Oct, 2011 [facility] [place] [facility] [address] [id number] [place] [address] 07 Oct, 2011 [facility] [place] [facility] [address] [id number] [place] [address] 06 Oct, 2011 [facility] [place] [facility] [address] [id number] [place] [address] 05 Oct, 2011 [facility] [place] [facility] [address] [id number] [place] [address] 16 Sep, 2011 [facility] [place] [facility] [address] [id number] [place] [address] 14 Sep, 2011 [facility] [place] [facility] [address] [id number] [place] [address] 12 Sep, 2011 [facility] [place] [facility] [address] [id number] [place] [address] 10 Sep, 2011 [facility] [place] [facility] [address] [id number] [place] [address] 06 Sep, 2011 [facility] [place] [facility] [address] [id number] [place] [address] 06 Sep, 2011 [facility] [place] [facility] [address] [facility] [id number] [place] [address] 06 Sep, 2011 [facility] [place] [facility] [address] [id number] [place] [address] 06 Sep, 2011 [facility] [address] [id number] [place] [address] Sep, [facility] [address] [id number] [place] [address] 30 Aug, 2011 [facility] [address] [id number] [place] [address] Aug, [facility] [address] [id number] [place] [address] Aug, [facility] [address] [id number] [place] [address] Aug, [facility] [address] [id number] [place] [address] Aug, [facility] [address] [id number] [place] [address] Aug, [facility] [address] [id number] [place] [address] Aug, [facility] [address] [id number] [place] [address] 24 Jul, 2011 [facility] [address] [id number] [place] [address] 16 Jul, 2011 [facility] [address] [id number] [place] [address] 16 Jul, 2011 [facility] [address] [id number] [place] [address] 14 Jul, 2011 [facility] [place] [facility] [address] [id number] [place] [address] 30 Jun, 2011 [facility] [address] [id number] [place] [address] Jun, [facility] [address] [id number] [place] [address] May, [facility] [address] [facility] [id number] [place] [address] Mar, [facility] [address] [facility] [id number] [address] Jan, [facility] [address] [facility] [id number] [place] [address] May, IMMUNIZATIONS No Known Immunizations SOCIAL HISTORY Never Assessed REASON FOR VISIT [facility] PLAN OF CARE VITAL SIGNS MEDICATIONS Unknown [...]
--- OUTSIDE RECORDS SUMMARY | 2019-03-23 07:09 | XMS REPORT ---
Author Author Migration, Doctor Organization [facility] Address Unknown Phone Unavailable Care Team Providers Care Physical Therapy Aid Name Role Phone Migration, Doctor Unavailable Unavailable PROBLEMS Type Condition ICD9-CM Code NKS15-LU Code Onset Dates Condition Status SNOMED Code Problem Other postablative hypothyroidism 244.1 Active 730365666 Problem Major depressive disorder, recurrent episode, severe, without mention of psychotic behavior 296.33 Active 46988740 ALLERGIES No Information ENCOUNTERS Encounter Location Date Diagnosis [place] [id number] [place] [address] Sep, Unspecified mood [affective] disorder [place] [id number] [place] [address] Aug, Unspecified mood [affective] disorder [place] [id number] [place] [address] Jul, Unspecified mood [affective] disorder [address] [place] [id number] [place] [address] Jun, Unspecified mood [affective] disorder [place] [id number] [place] [address] Mar, Affective disorder 296.90 [place] [id number] [place] [address] Mar, [place] [id number] [place] [address] Feb, Nexplanon removal V25.43 and Initiation of OCP (BCP) V25.01 [place] [id number] [place] [address] Feb, Episodic mood disorder 296.90 [place] [id number] [place] [address] [place] [address] Feb, [facility] [address] [address] Feb, Routine gynecological examination V72.31 ; Pap test, as part of routine gynecological examination V76.2 ; Breast cancer screening V76.10 ; Nexplanon in place V45.52 and Rash 782.1 [facility] [address] [address] Jan, Episodic mood disorder 296.90 [facility] [address] [address] Jan, [facility] [address] [address] December, Episodic mood disorder 296.90 [facility] [address] [address] December, [facility] [address] [address] December, [facility] [address] [address] December, [facility] [address] [address] Nov, [facility] [address] [address] Nov, [facility] [address] [address] Nov, [facility] [address] [address] Oct, [facility] [address] [address] Oct, [facility] [id number] [address] Oct, [facility] [id number] [place] [address] Oct, [facility] [place] [facility] [address] [id number] [place] [address] Oct, [facility] [place] [facility] [address] [id number] [place] [address] Oct, [facility] [place] [facility] [address] [id number] [place] [address] Sep, 2014 [facility] [place] [facility] [address] [id number] [place] [address] Sep, 2014 [facility] [place] [facility] [address] [id number] [place] [address] Sep, 2014 [facility] [place] [facility] [address] [id number] [place] [address] Sep, 2014 [facility] [place] [facility] [address] [id number] [place] [address] Sep, [facility] [place] [facility] [address] [id number] [place] [address] Sep, [facility] [place] [facility] [address] [id number] [place] [address] Aug, [facility] [place] [facility] [address] [id number] [place] [address] Aug, [facility] [place] [facility] [address] [id number] [place] [address] Aug, [facility] [place] [facility] [address] [id number] [place] [address] Aug, [facility] [place] [facility] [address] [id number] [place] [address] Aug, [facility] [place] [facility] [address] [id number] [place] [address] Aug, [facility] [place] [facility] [address] [id number] [place] [address] Aug, [facility] [place] [facility] [address] [id number] [place] [address] 14 Aug, 2014 [facility] [place] [facility] [address] [id number] [place] [address] Aug, [facility] [place] [facility] [address] [id number] [place] [address] Aug, [facility] [place] [facility] [address] [id number] [place] [address] Aug, [facility] [place] [facility] [address] [id number] [place] [address] Aug, [facility] [place] [facility] [address] [id number] [place] [address] Aug, [facility] [place] [facility] [address] [id number] [place] [address] Aug, [facility] [place] [facility] [address] [id number] [place] [address] Aug, [facility] [place] [facility] [address] [id number] [place] [address] Aug, [facility] [place] [facility] [address] [id number] [place] [address] Jul, [facility] [place] [facility] [address] [id number] [address] 15 Jul, 2014 [facility] [place] [facility] [address] [id number], [place] [address] 15 Jul, 2014 [facility] [place] [facility] [address] [id number] [place] [address] Jul, [facility] [place] [facility] [address] [id number] [place] [address] Jul, [facility] [place] [facility] [address] [id number] [place] [address] Jul, [facility] [place] [facility] [address] [id number] [place] [address] 11 Jul, 2014 [facility] [place] [facility] [address] [id number] [place] [address] Jul, [facility] [place] [facility] [address] [id number] [place] [address] Jul, [facility] [place] [facility] [address] [id number] [place] [address] 05 Jul, 2014 [facility] [place] [facility] [address] [id number] [place] [address] 05 Jul, 2014 [facility] [place] [facility] [address] [id number] [place] [address] Jul, [facility] [place] [facility] [address] [id number] [place] [address] Jul, [facility] [place] [facility] [address] [id number] [place] [address] Jun, [facility] [place] [facility] [address] [id number] [place] [address] Jun, [facility] [place] [facility] [address] [id number] [place] [address] Jun, [facility] [place] [facility] [address] [facility] [id number] [place] [address] Jun, [facility] [place] [facility] [address] [id number] [place] [address] Jun, [facility] [place] [facility] [address] [id number] [place] [address] Jun, [facility] [place] [facility] [address] [id number] [place] [address] Jun, [facility] [place] [facility] [address] [id number] [place] [address] Jun, [facility] [place] [facility] [address] [id number] [address] Jun, [facility] [place] [facility] [address] [id number] [place] [address] Jun, [facility] [place] [facility] [address] [id number] [place] [address] Jun, [facility] [place] [facility] [address] [id number] [place] [address] Jun, [facility] [place] [facility] [address] [id number] [place] [address] Jun, [facility] [place] [facility] [address] [id number] [place] [address] Jun, [facility] [place] [facility] [address] [id number] [place] [address] May, [facility] [place] [facility] [address] [id number] [place] [address] May, [facility] [place] [facility] [address] [id number] [place] [address] May, [facility] [place] [facility] [address] [id number] [place] [address] May, [facility] [place] [facility] [address] [id number] [place] [address] May, [facility] [place] [facility] [address] [id number] [place] [address] May, [facility] [place] [facility] [address] [id number] [place] [address] May, [facility] [place] [facility] [address] [id number] [place] [address] May, [facility] [place] [facility] [address] [id number] [place] [address] May, [facility] [place] [facility] [address] [id number] [place] [address] May, [facility] [place] [facility] [address] [id number] [place] [address] 30 Sep, 2013 [facility] [place] [facility] [address] [id number] [place] [address] 30 Sep, 2013 [facility] [place] [facility] [address] [id number] [place] [address] 19 Sep, 2013 [facility] [place] [facility] [address] [id number] [place] [address] 19 Sep, 2013 [facility] [place] [facility] [address] [id number] [place] [address] 18 Sep, 2013 [facility] [place] [facility] [address] [id number] [place] [address] 18 Sep, 2013 [facility] [place] [facility] [address] [id number] [place] [address] 18 Sep, 2013 [facility] [place] [facility] [address] [id number] [place] [address] 18 Sep, 2013 [facility] [place] [facility] [address] [id number] [place] [address] 16 Sep, 2013 [facility] [place] [facility] [address] [id number] [place] [address] 16 Sep, 2013 [facility] [place] [facility] [address] [id number] [place] [address] 08 Sep, 2013 [facility] [place] [facility] [address] [id number] [place] [address] 08 Sep, 2013 [facility] [place] [facility] [address] [id number] [place] [address] 08 Sep, 2013 [facility] [place] [facility] [address] [id number] [place] [address] 08 Sep, 2013 [facility] [place] [facility] [address] [id number] [place] [address] 04 Sep, 2013 [facility] [place] [facility] [address] [id number] [place] [address] 04 Sep, 2013 [facility] [place] [facility] [address] [id number] [place] [address] Mar, [facility] [place] [facility] [address] [id number] [place] [address] Mar, [facility] [place] [facility] [address] [id number] [place] [address] Mar, [facility] [place] [facility] [address] [id number] [place] [address] Jan, [facility] [place] [facility] [address] [id number] [place] [address] 23 Jan, 2014 [facility] [place] [facility] [address] [id number] [place] [address] Jan, [facility] [place] [facility] [address] [id number] [place] [address] 18 Jan, 2014 [facility] [place] [facility] [address] [id number] [place] [address] 16 Jan, 2014 [facility] [place] [facility] [address] [id number] [place] [address] 16 Jan, 2014 [facility] [place] [facility] [address] [id number] [place] [address] 16 Jan, 2014 [facility] [place] [facility] [address] [id number] [place] [address] 16 Jan, 2014 [facility] [place] [facility] [address] [id number] [place] [address] Jan, [facility] [place] [facility] [address] [id number] [place] [address] Jan, [facility] [place] [facility] [address] [id number] [place] [address] Jan, [facility] [place] [facility] [address] [id number] [place] [address] 11 Jan, 2014 [facility] [place] [facility] [address] [id number] [place] [address] Jan, [facility] [place] [facility] [address] [id number] [place] [address] Jan, [facility] [place] [facility] [address] [id number] [place] [address] Jan, [facility] [place] [facility] [address] [id number] [place] [address] Jan, [facility] [place] [facility] [address] [id number] [place] [address] December, [facility] [place] [facility] [address] [id number] [place] [address] December, [facility] [place] [facility] [address] [id number] [place] [address] December, [facility] [place] [facility] [address] [id number] [place] [address] December, [facility] [place] [facility] [address] [id number] [place] [address] December, [facility] [place] [facility] [address] [id number] [place] [address] Nov, [facility] [place] [facility] [address] [id number] [place] [address] Nov, [facility] [place] [facility] [address] [id number] [place] [address] Nov, [facility] [place] [facility] [address] [id number] [place] [address] Nov, [facility] [place] [facility] [address] [id number] [place] [address] Nov, [facility] [place] [facility] [address] [id number] [place] [address] Nov, [facility] [place] [facility] [address] [id number] [place] [address] Nov, [facility] [place] [facility] [address] [id number] [address] 24 Nov, 2013 [facility] [place] [facility] [address] [id number] [place] [address] Nov, [facility] [place] [facility] [address] [id number] [place] [address] Nov, [facility] [place] [facility] [address] [facility] [id number] [place] [address] Oct, [facility] [place] [facility] [address] [id number] [place] [address] Oct, [facility] [place] [facility] [address] [id number] [place] [address] Oct, [facility] [place] [facility] [address] [id number] [place] [address] Oct, [facility] [place] [facility] [address] [facility] [id number] [place] [address] Oct, [facility] [place] [facility] [address] [id number] [place] [address] Oct, [facility] [place] [facility] [address] [id number] [place] [address] Oct, [facility] [place] [facility] [address] [facility] [id number] [place] [address] Oct, [facility] [place] [facility] [address] [id number] [place] [address] Oct, [facility] [place] [facility] [address] [id number] [place] [address] Sep, [facility] [place] [facility] [address] [id number] [place] [address] Sep, [facility] [place] [facility] [address] [id number] [place] [address] Sep, [facility] [place] [facility] [address] [facility] [id number] [place] [address] Sep, [facility] [place] [facility] [address] [id number] [place] [address] Sep, [facility] [place] [facility] [address] [id number] [place] [address] Sep, [facility] [place] [facility] [address] [id number] [place] [address] Sep, [facility] [place] [facility] [address] [id number] [place] [address] Aug, [facility] [place] [facility] [address] [id number] [place] [address] Aug, [facility] [place] [facility] [address] [id number] [place] [address] Aug, [facility] [place] [facility] [address] [id number] [place] [address] Aug, [facility] [place] [facility] [address] [id number] [place] [address] Aug, [facility] [place] [facility] [address] [id number] [place] [address] Aug, [facility] [place] [facility] [address] [id number] [place] [address] Aug, [facility] [place] [facility] [address] [id number] [place] [address] Aug, [facility] [place] [facility] [address] [id number], [place] [address] Jul, [facility] [place] [facility] [address] [id number] [place] [address] Jul, [facility] [place] [facility] [address] [id number] [place] [address] Jul, [facility] [place] [facility] [address] [id number], [place] [address] Jul, [facility] [place] [facility] [address] [id number], [place] [address] Jun, [facility] [place] [facility] [address] [id number] [place] [address] Jun, [facility] [place] [facility] [address] [id number] [place] [address] Jun, [facility] [place] [facility] [address] [id number] [place] [address] May, [facility] [place] [facility] [address] [id number] [place] [address] May, [facility] [place] [facility] [address] [id number] [place] [address] May, [facility] [place] [facility] [address] [id number] [place] [address] May, [facility] [place] [facility] [address] [id number] [place] [address] May, [facility] [place] [facility] [address] [id number] [place] [address] May, [facility] [place] [facility] [address] [facility] [id number] [place] [address] May, [facility] [place] [facility] [address] [facility] [id number] [place] [address] Apr, [facility] [place] [facility] [address] [id number], [place] [address] 17 Apr, 2013 [facility] [place] [facility] [address] [id number], [place] [address] 12 Apr, 2013 [facility] [place] [facility] [address] [id number] [place] [address] 11 Apr, 2013 [facility] [place] [facility] [address] [facility] [id number] [place] [address] 05 Apr, 2013 [facility] [place] [facility] [address] [facility] [id number] [place] [address] Mar, [facility] [place] [facility] [address] [id number] [place] [address] Mar, [facility] [place] [facility] [address] [id number] [place] [address] Mar, [facility] [place] [facility] [address] [id number] [place] [address] Mar, [facility] [place] [facility] [address] [id number] [place] [address] Feb, [facility] [place] [facility] [address] [id number] [place] [address] Feb, [facility] [place] [facility] [address] [id number] [place] [address] Feb, [facility] [place] [facility] [address] [id number] [place] [address] Feb, [facility] [place] [facility] [address] [id number] [place] [address] Feb, [facility] [place] [facility] [address] [id number] [place] [address] Feb, [facility] [place] [facility] [address] [id number] [place] [address] Feb, [facility] [place] [facility] [address] [id number] [place] [address] Feb, [facility] [place] [facility] [address] [id number] [place] [address] Jan, [facility] [place] [facility] [address] [id number] [place] [address] Jan, [facility] [place] [facility] [address] [id number] [place] [address] Jan, [facility] [place] [facility] [address] [id number] [place] [address] Jan, [facility] [place] [facility] [address] [id number] [place] [address] Jan, [facility] [address] [id number] [place] [address] Jan, [facility] [place] [facility] [address] [id number] [place] [address] Jan, [facility] [place] [facility] [address] [id number] [place] [address] December, [facility] [place] [facility] [address] [id number] [place] [address] December, [facility] [address] [id number] [place] [address] 30 Nov, 2012 [facility] [place] [facility] [address] [id number] [place] [address] Nov, [facility] [place] [facility] [address] [id number] [place] [address] Nov, [facility] [place] [facility] [address] [id number] [place] [address] Nov, [facility] [place] [facility] [address] [id number] [place] [address] 24 Nov, 2012 [facility] [place] [facility] [address] [id number] [place] [address] Nov, [facility] [place] [facility] [address] [id number] [place] [address] Nov, [facility] [place] [facility] [address] [id number] [address] 15 Nov, 2012 [facility] [place] [facility] [address] [id number] [place] [address] 11 Nov, 2012 [facility] [place] [facility] [address] [id number] [place] [address] 10 Nov, 2012 [facility] [place] [facility] [address] [id number] [place] [address] 08 Nov, 2012 [facility] [place] [facility] [address] [id number] [place] [address] 05 Nov, 2012 [facility] [address] [id number] [place] [address] Nov, [facility] [place] [facility] [address] [id number] [place] [address] Nov, [facility] [address] [id number] [place] [address] Oct, [facility] [place] [facility] [address] [id number] [place] [address] Oct, [facility] [address] [id number] [place] [address] Oct, [facility] [address] [id number] [place] [address] Oct, [facility] [address] [id number] [place] [address] Oct, [facility] [address] [id number] [place] [address] Oct, [facility] [address] [id number] [place] [address] Oct, [facility] [address] [id number] [place] [address] Oct, [facility] [address] [id number] [place] [address] Oct, [facility] [place] [facility] [address] [id number] [place] [address] Sep, [facility] [place] [facility] [address] [id number] [place] [address] Aug, [facility] [place] [facility] [address] [id number] [place] [address] Aug, [facility] [place] [facility] [address] [id number] [place] [address] Aug, [facility] [place] [facility] [address] [id number] [place] [address] Aug, [facility] [place] [facility] [address] [id number] [place] [address] 31 Jul, 2012 [facility] [place] [facility] [address] [id number] [place] [address] 31 Jul, 2012 [facility] [place] [facility] [address] [id number] [place] [address] Jul, [facility] [address] [id number] [place] [address] 19 Jul, 2012 [facility] [place] [facility] [address] [id number] [place] [address] Jul, [facility] [address] [id number] [place] [address] 15 Jul, 2012 [facility] [place] [facility] [address] [id number] [place] [address] 15 Jul, 2012 [facility] [place] [facility] [address] [id number] [place] [address] 14 Jul, 2012 [facility] [place] [facility] [address] [id number] [place] [address] 14 Jul, 2012 [facility] [place] [facility] [address] [id number] [place] [address] May, [facility] [place] [facility] [address] [id number] [place] [address] 22 May, 2012 [facility] [place] [facility] [address] [id number] [place] [address] 16 May, 2012 [facility] [place] [facility] [address] [id number] [place] [address] 16 May, 2012 [facility] [place] [facility] [address] [id number] [place] [address] 12 May, 2012 [facility] [place] [facility] [address] [id number] [place] [address] May, [facility] [place] [facility] [address] [id number] [place] [address] 27 Apr, 2012 [facility] [place] [facility] [address] [id number] [place] [address] 27 Apr, 2012 [facility] [place] [facility] [address] [id number] [place] [address] 24 Apr, 2012 [facility] [place] [facility] [address] [id number] [place] [address] 18 Apr, 2012 [facility] [place] [facility] [address] [id number] [place] [address] 14 Apr, 2012 [facility] [place] [facility] [address] [id number] [place] [address] 12 Apr, 2012 [facility] [place] [facility] [address] [id number] [place] [address] Mar, [facility] [place] [facility] [address] [id number] [place] [address] Feb, [facility] [place] [facility] [address] [id number] [place] [address] Feb, [facility] [place] [facility] [address] [id number] [place] [address] Feb, [facility] [place] [facility] [address] [id number] [place] [address] Jan, [facility] [place] [facility] [address] [id number] [place] [address] December, [facility] [place] [facility] [address] [id number] [place] [address] December, [facility] [place] [facility] [address] [id number] [place] [address] December, [facility] [place] [facility] [address] [id number] [place] [address] December, [facility] [place] [facility] [address] [id number] [place] [address] December, [facility] [address] [id number] [place] [address] December, [facility] [facility] [address] [id number] [place] [address] Nov, [facility] [address] [id number] [place] [address] Nov, [facility] [address] [id number] [place] [address] 17 Nov, 2011 [facility] [address] [id number] [place] [address] Nov, [facility] [address] [id number] [place] [address] 16 Nov, 2011 [facility] [address] [id number] [place] [address] 13 Nov, 2011 [facility] [address] [id number] [place] [address] 12 Nov, 2011 [facility] [address] [id number] [place] [address] Nov, [facility] [address] [id number] [place] [address] 05 Nov, 2011 [facility] [address] [id number] [place] [address] 04 Nov, 2011 [facility] [address] [id number] [place] [address] 30 Oct, 2011 [facility] [place] [facility] [address] [id number] [place] [address] 29 Oct, 2011 [facility] [address] [id number] [place] [address] 28 Oct, 2011 [facility] [address] [id number] [place] [address] Oct, [facility] [place] [facility] [address] [id number] [place] [address] 26 Oct, 2011 [facility] [place] [facility] [address] [id number] [place] [address] 23 Oct, 2011 [facility] [place] [facility] [address] [id number] [place] [address] 21 Oct, 2011 [facility] [place] [facility] [address] [id number] [place] [address] 19 Oct, 2011 [facility] [place] [facility] [address] [id number] [place] [address] 08 Oct, 2011 [facility] [place] [facility] [address] [id number] [place] [address] 07 Oct, 2011 [facility] [place] [facility] [address] [id number] [place] [address] 06 Oct, 2011 [facility] [place] [facility] [address] [id number] [place] [address] 05 Oct, 2011 [facility] [place] [facility] [address] [id number] [place] [address] 16 Sep, 2011 [facility] [place] [facility] [address] [id number] [place] [address] 14 Sep, 2011 [facility] [place] [facility] [address] [id number] [place] [address] 12 Sep, 2011 [facility] [place] [facility] [address] [id number] [place] [address] 10 Sep, 2011 [facility] [place] [facility] [address] [id number] [place] [address] 06 Sep, 2011 [facility] [place] [facility] [address] [id number] [place] [address] 06 Sep, 2011 [facility] [place] [facility] [address] [facility] [id number] [place] [address] 06 Sep, 2011 [facility] [place] [facility] [address] [id number] [place] [address] 06 Sep, 2011 [facility] [address] [id number] [place] [address] Sep, [facility] [address] [id number] [place] [address] 30 Aug, 2011 [facility] [address] [id number] [place] [address] Aug, [facility] [address] [id number] [place] [address] Aug, [facility] [address] [id number] [place] [address] Aug, [facility] [address] [id number] [place] [address] Aug, [facility] [address] [id number] [place] [address] Aug, [facility] [address] [id number] [place] [address] Aug, [facility] [address] [id number] [place] [address] 24 Jul, 2011 [facility] [address] [id number] [place] [address] 16 Jul, 2011 [facility] [address] [id number] [place] [address] 16 Jul, 2011 [facility] [address] [id number] [place] [address] 14 Jul, 2011 [facility] [place] [facility] [address] [id number] [place] [address] 30 Jun, 2011 [facility] [address] [id number] [place] [address] Jun, [facility] [address] [id number] [place] [address] May, [facility] [address] [facility] [id number] [place] [address] Mar, [facility] [address] [facility] [id number] [address] Jan, [facility] [address] [facility] [id number] [place] [address] May, IMMUNIZATIONS No Known Immunizations SOCIAL HISTORY Never Assessed REASON FOR VISIT [facility] PLAN OF CARE VITAL SIGNS MEDICATIONS Unknown [...]
--- OUTSIDE RECORDS SUMMARY | 2019-03-23 07:10 | XMS REPORT ---
Author Author Migration, Doctor Organization [facility] Address Unknown Phone Unavailable Care Team Providers Care Aviation Survival Technician Name Role Phone Migration, Doctor Unavailable Unavailable PROBLEMS Type Condition ICD9-CM Code XMN91-SF Code Onset Dates Condition Status SNOMED Code Problem Other postablative hypothyroidism 244.1 Active [id number] Problem Major depressive disorder, recurrent episode, severe, without mention of psychotic behavior 296.33 Active [id number] ALLERGIES No Information ENCOUNTERS Encounter Location Date Diagnosis [place] [id number] [place] [address] Sep, Unspecified mood [affective] disorder [place] [id number] [place] [address] Aug, Unspecified mood [affective] disorder [place] [id number] [place] [address] Jul, Unspecified mood [affective] disorder 9 [place] [id number] [place] [address] Jun, Unspecified mood [affective] disorder [place] [id number] [place] [address] Mar, Affective disorder 296.90 [place] [id number] [place] [address] Mar, [place] [id number] [place] [address] Feb, Nexplanon removal V25.43 and Initiation of OCP (BCP) V25.01 [place] [id number] [place] [address] Feb, Episodic mood disorder 296.90 [place] [id number] [place] [address] [place] [address] Feb, [facility] [id number] [address] Feb, Routine gynecological examination V72.31 ; Pap test, as part of routine gynecological examination V76.2 ; Breast cancer screening V76.10 ; Nexplanon in place V45.52 and Rash 782.1 [facility] [id number] [address] Jan, Episodic mood disorder 296.90 [facility] [id number] [address] Jan, [facility] [id number] [address] December, Episodic mood disorder 296.90 [facility] [id number] [address] December, [facility] [id number] [address] December, [facility] [id number] [address] December, [facility] [id number] [address] Nov, [facility] [id number] [address] Nov, [facility] [id number] [address] Nov, [facility] [id number] [address] Oct, [facility] [id number] [address] Oct, [facility] [id number] [address] Oct, [facility] [id number] [place] [address] Oct, [facility] [place] [facility] [address] [id number] [place] [address] Oct, [facility] [place] [facility] [address] [id number] [place] [address] Oct, [facility] [place] [facility] [address] [id number] [place] [address] Sep, 2014 [facility] [place] [facility] [address] [id number] [place] [address] Sep, 2014 [facility] [place] [facility] [address] [id number] [place] [address] Sep, 2014 [facility] [place] [facility] [address] [id number] [place] [address] Sep, 2014 [facility] [place] [facility] [address] [id number] [place] [address] Sep, [facility] [place] [facility] [address] [id number] [place] [address] Sep, [facility] [place] [facility] [address] [id number] [place] [address] Aug, [facility] [place] [facility] [address] [id number] [place] [address] Aug, [facility] [place] [facility] [address] [id number] [place] [address] Aug, [facility] [place] [facility] [address] [id number] [place] [address] Aug, [facility] [place] [facility] [address] [id number] [place] [address] Aug, [facility] [place] [facility] [address] [id number] [place] [address] Aug, [facility] [place] [facility] [address] [id number] [place] [address] Aug, [facility] [place] [facility] [address] [id number] [place] [address] 14 Aug, 2014 [facility] [place] [facility] [address] [id number] [place] [address] Aug, [facility] [place] [facility] [address] [id number] [place] [address] Aug, [facility] [place] [facility] [address] [id number] [place] [address] Aug, [facility] [place] [facility] [address] [id number] [place] [address] Aug, [facility] [place] [facility] [address] [id number] [place] [address] Aug, [facility] [place] [facility] [address] [id number] [place] [address] Aug, [facility] [place] [facility] [address] [id number] [place] [address] Aug, [facility] [place] [facility] [address] [id number] [place] [address] Aug, [facility] [place] [facility] [address] [id number] [place] [address] Jul, [facility] [place] [facility] [address] [id number] [address] 15 Jul, 2014 [facility] [place] [facility] [address] [id number] [address] 15 Jul, 2014 [facility] [place] [facility] [address] [id number] [place] [address] Jul, [facility] [place] [facility] [address] [id number] [place] [address] Jul, [facility] [place] [facility] [address] [id number] [place] [address] Jul, [facility] [place] [facility] [address] [id number] [place] [address] 11 Jul, 2014 [facility] [place] [facility] [address] [id number] [place] [address] Jul, [facility] [place] [facility] [address] [id number] [place] [address] Jul, [facility] [place] [facility] [address] [id number] [place] [address] 05 Jul, 2014 [facility] [place] [facility] [address] [id number] [place] [address] 05 Jul, 2014 [facility] [place] [facility] [address] [id number] [place] [address] Jul, [facility] [place] [facility] [address] [id number] [place] [address] Jul, [facility] [place] [facility] [address] [id number] [place] [address] Jun, [facility] [place] [facility] [address] [id number] [place] [address] Jun, [facility] [place] [facility] [address] [id number] [place] [address] Jun, [facility] [place] [facility] [address] [facility] [id number] [place] [address] Jun, [facility] [place] [facility] [address] [id number] [place] [address] Jun, [facility] [place] [facility] [address] [id number] [place] [address] Jun, [facility] [place] [facility] [address] [id number] [place] [address] Jun, [facility] [place] [facility] [address] [id number] [place] [address] Jun, [facility] [place] [facility] [address] [id number] [address] Jun, [facility] [place] [facility] [address] [id number] [place] [address] Jun, [facility] [place] [facility] [address] [id number] [place] [address] Jun, [facility] [place] [facility] [address] [id number] [place] [address] Jun, [facility] [place] [facility] [address] [id number] [place] [address] Jun, [facility] [place] [facility] [address] [id number] [place] [address] Jun, [facility] [place] [facility] [address] [id number] [place] [address] May, [facility] [place] [facility] [address] [id number] [place] [address] May, [facility] [place] [facility] [address] [id number] [place] [address] May, [facility] [place] [facility] [address] [id number] [place] [address] May, [facility] [place] [facility] [address] [id number] [place] [address] May, [facility] [place] [facility] [address] [id number] [place] [address] May, [facility] [place] [facility] [address] [id number] [place] [address] May, [facility] [place] [facility] [address] [id number] [place] [address] May, [facility] [place] [facility] [address] [id number] [place] [address] May, [facility] [place] [facility] [address] [id number] [place] [address] May, [facility] [place] [facility] [address] [id number] [place] [address] 30 Sep, 2013 [facility] [place] [facility] [address] [id number] [place] [address] 30 Sep, 2013 [facility] [place] [facility] [address] [id number] [place] [address] 19 Sep, 2013 [facility] [place] [facility] [address] [id number] [place] [address] 19 Sep, 2013 [facility] [place] [facility] [address] [id number] [place] [address] 18 Sep, 2013 [facility] [place] [facility] [address] [id number] [place] [address] 18 Sep, 2013 [facility] [place] [facility] [address] [id number] [place] [address] 18 Sep, 2013 [facility] [place] [facility] [address] [id number] [place] [address] 18 Sep, 2013 [facility] [place] [facility] [address] [id number] [place] [address] 16 Sep, 2013 [facility] [place] [facility] [address] [id number] [place] [address] 16 Sep, 2013 [facility] [place] [facility] [address] [id number] [place] [address] 08 Sep, 2013 [facility] [place] [facility] [address] [id number] [place] [address] 08 Sep, 2013 [facility] [place] [facility] [address] [id number] [place] [address] 08 Sep, 2013 [facility] [place] [facility] [address] [id number] [place] [address] 08 Sep, 2013 [facility] [place] [facility] [address] [id number] [place] [address] 04 Sep, 2013 [facility] [place] [facility] [address] [id number] [place] [address] 04 Sep, 2013 [facility] [place] [facility] [address] [id number] [place] [address] Mar, [facility] [place] [facility] [address] [id number] [place] [address] Mar, [facility] [place] [facility] [address] [id number] [place] [address] Mar, [facility] [place] [facility] [address] [id number] [place] [address] Jan, [facility] [place] [facility] [address] [id number] [place] [address] 23 Jan, 2014 [facility] [place] [facility] [address] [id number] [place] [address] Jan, [facility] [place] [facility] [address] [id number] [place] [address] 18 Jan, 2014 [facility] [place] [facility] [address] [id number] [place] [address] 16 Jan, 2014 [facility] [place] [facility] [address] [id number] [place] [address] 16 Jan, 2014 [facility] [place] [facility] [address] [id number] [place] [address] 16 Jan, 2014 [facility] [place] [facility] [address] [id number] [place] [address] 16 Jan, 2014 [facility] [place] [facility] [address] [id number] [place] [address] Jan, [facility] [place] [facility] [address] [id number] [place] [address] Jan, [facility] [place] [facility] [address] [id number] [place] [address] Jan, [facility] [place] [facility] [address] [id number] [place] [address] 11 Jan, 2014 [facility] [place] [facility] [address] [id number] [place] [address] Jan, [facility] [place] [facility] [address] [id number] [place] [address] Jan, [facility] [place] [facility] [address] [id number] [place] [address] Jan, [facility] [place] [facility] [address] [id number] [place] [address] Jan, [facility] [place] [facility] [address] [id number] [place] [address] December, [facility] [place] [facility] [address] [id number] [place] [address] December, [facility] [place] [facility] [address] [id number] [place] [address] December, [facility] [place] [facility] [address] [id number] [place] [address] December, [facility] [place] [facility] [address] [id number] [place] [address] December, [facility] [place] [facility] [address] [id number] [place] [address] Nov, [facility] [place] [facility] [address] [id number] [place] [address] Nov, [facility] [place] [facility] [address] [id number] [place] [address] Nov, [facility] [place] [facility] [address] [id number] [place] [address] Nov, [facility] [place] [facility] [address] [id number] [place] [address] Nov, [facility] [place] [facility] [address] [id number] [place] [address] Nov, [facility] [place] [facility] [address] [id number] [place] [address] Nov, [facility] [place] [facility] [address] [id number] [address] 24 Nov, 2013 [facility] [place] [facility] [address] [id number] [place] [address] Nov, [facility] [place] [facility] [address] [id number] [place] [address] Nov, [facility] [place] [facility] [address] [facility] [id number] [place] [address] Oct, [facility] [place] [facility] [address] [id number] [place] [address] Oct, [facility] [place] [facility] [address] [id number] [place] [address] Oct, [facility] [place] [facility] [address] [id number] [place] [address] Oct, [facility] [place] [facility] [address] [facility] [id number] [place] [address] Oct, [facility] [place] [facility] [address] [id number] [place] [address] Oct, [facility] [place] [facility] [address] [id number] [place] [address] Oct, [facility] [place] [facility] [address] [facility] [id number] [place] [address] Oct, [facility] [place] [facility] [address] [id number] [place] [address] Oct, [facility] [place] [facility] [address] [id number] [place] [address] Sep, [facility] [place] [facility] [address] [id number] [place] [address] Sep, [facility] [place] [facility] [address] [id number] [place] [address] Sep, [facility] [place] [facility] [address] [facility] [id number] [place] [address] Sep, [facility] [place] [facility] [address] [id number] [place] [address] Sep, [facility] [place] [facility] [address] [id number] [place] [address] Sep, [facility] [place] [facility] [address] [id number] [place] [address] Sep, [facility] [place] [facility] [address] [id number] [place] [address] Aug, [facility] [place] [facility] [address] [id number] [place] [address] Aug, [facility] [place] [facility] [address] [id number] [place] [address] Aug, [facility] [place] [facility] [address] [id number] [place] [address] Aug, [facility] [place] [facility] [address] [id number] [place] [address] Aug, [facility] [place] [facility] [address] [id number] [place] [address] Aug, [facility] [place] [facility] [address] [id number] [place] [address] Aug, [facility] [place] [facility] [address] [id number] [place] [address] Aug, [facility] [place] [facility] [address] [id number] [address] Jul, [facility] [place] [facility] [address] [id number] [place] [address] Jul, [facility] [place] [facility] [address] [id number] [place] [address] Jul, [facility] [place] [facility] [address] [id number] [address] Jul, [facility] [place] [facility] [address] [id number] [address] Jun, [facility] [place] [facility] [address] [id number] [place] [address] Jun, [facility] [place] [facility] [address] [id number] [place] [address] Jun, [facility] [place] [facility] [address] [id number] [place] [address] May, [facility] [place] [facility] [address] [id number] [place] [address] May, [facility] [place] [facility] [address] [id number] [place] [address] May, [facility] [place] [facility] [address] [id number] [place] [address] May, [facility] [place] [facility] [address] [id number] [place] [address] May, [facility] [place] [facility] [address] [id number] [place] [address] May, [facility] [place] [facility] [address] [facility] [id number] [place] [address] May, [facility] [place] [facility] [address] [facility] [id number] [place] [address] Apr, [facility] [place] [facility] [address] [id number] [address] 17 Apr, 2013 [facility] [place] [facility] [address] [id number] [address] 12 Apr, 2013 [facility] [place] [facility] [address] [id number] [place] [address] 11 Apr, 2013 [facility] [place] [facility] [address] [facility] [id number] [place] [address] 05 Apr, 2013 [facility] [place] [facility] [address] [facility] [id number] [place] [address] Mar, [facility] [place] [facility] [address] [id number] [place] [address] Mar, [facility] [place] [facility] [address] [id number] [place] [address] Mar, [facility] [place] [facility] [address] [id number] [place] [address] Mar, [facility] [place] [facility] [address] [id number] [place] [address] Feb, [facility] [place] [facility] [address] [id number] [place] [address] Feb, [facility] [place] [facility] [address] [id number] [place] [address] Feb, [facility] [place] [facility] [address] [id number] [place] [address] Feb, [facility] [place] [facility] [address] [id number] [place] [address] Feb, [facility] [place] [facility] [address] [id number] [place] [address] Feb, [facility] [place] [facility] [address] [id number] [place] [address] Feb, [facility] [place] [facility] [address] [id number] [place] [address] Feb, [facility] [place] [facility] [address] [id number] [place] [address] Jan, [facility] [place] [facility] [address] [id number] [place] [address] Jan, [facility] [place] [facility] [address] [id number] [place] [address] Jan, [facility] [place] [facility] [address] [id number] [place] [address] Jan, [facility] [place] [facility] [address] [id number] [place] [address] Jan, [facility] [address] [id number] [place] [address] Jan, [facility] [place] [facility] [address] [id number] [place] [address] Jan, [facility] [place] [facility] [address] [id number] [place] [address] December, [facility] [place] [facility] [address] [id number] [place] [address] December, [facility] [address] [id number] [place] [address] 30 Nov, 2012 [facility] [place] [facility] [address] [id number] [place] [address] Nov, [facility] [place] [facility] [address] [id number] [place] [address] Nov, [facility] [place] [facility] [address] [id number] [place] [address] Nov, [facility] [place] [facility] [address] [id number] [place] [address] 24 Nov, 2012 [facility] [place] [facility] [address] [id number] [place] [address] Nov, [facility] [place] [facility] [address] [id number] [place] [address] Nov, [facility] [place] [facility] [address] [id number] [address] 15 Nov, 2012 [facility] [place] [facility] [address] [id number] [place] [address] 11 Nov, 2012 [facility] [place] [facility] [address] [id number] [place] [address] 10 Nov, 2012 [facility] [place] [facility] [address] [id number] [place] [address] 08 Nov, 2012 [facility] [place] [facility] [address] [id number] [place] [address] 05 Nov, 2012 [facility] [address] [id number] [place] [address] Nov, [facility] [place] [facility] [address] [id number] [place] [address] Nov, [facility] [address] [id number] [place] [address] Oct, [facility] [place] [facility] [address] [id number] [place] [address] Oct, [facility] [address] [id number] [place] [address] Oct, [facility] [address] [id number] [place] [address] Oct, [facility] [address] [id number] [place] [address] Oct, [facility] [address] [id number] [place] [address] Oct, [facility] [address] [id number] [place] [address] Oct, [facility] [address] [id number] [place] [address] Oct, [facility] [address] [id number] [place] [address] Oct, [facility] [place] [facility] [address] [id number] [place] [address] Sep, [facility] [place] [facility] [address] [id number] [place] [address] Aug, [facility] [place] [facility] [address] [id number] [place] [address] Aug, [facility] [place] [facility] [address] [id number] [place] [address] Aug, [facility] [place] [facility] [address] [id number] [place] [address] Aug, [facility] [place] [facility] [address] [id number] [place] [address] 31 Jul, 2012 [facility] [place] [facility] [address] [id number] [place] [address] 31 Jul, 2012 [facility] [place] [facility] [address] [id number] [place] [address] Jul, [facility] [address] [id number] [place] [address] 19 Jul, 2012 [facility] [place] [facility] [address] [id number] [place] [address] Jul, [facility] [address] [id number] [place] [address] 15 Jul, 2012 [facility] [place] [facility] [address] [id number] [place] [address] 15 Jul, 2012 [facility] [place] [facility] [address] [id number] [place] [address] 14 Jul, 2012 [facility] [place] [facility] [address] [id number] [place] [address] 14 Jul, 2012 [facility] [place] [facility] [address] [id number] [place] [address] May, [facility] [place] [facility] [address] [id number] [place] [address] 22 May, 2012 [facility] [place] [facility] [address] [id number] [place] [address] 16 May, 2012 [facility] [place] [facility] [address] [id number] [place] [address] 16 May, 2012 [facility] [place] [facility] [address] [id number] [place] [address] 12 May, 2012 [facility] [place] [facility] [address] [id number] [place] [address] May, [facility] [place] [facility] [address] [id number] [place] [address] 27 Apr, 2012 [facility] [place] [facility] [address] [id number] [place] [address] 27 Apr, 2012 [facility] [place] [facility] [address] [id number] [place] [address] 24 Apr, 2012 [facility] [place] [facility] [address] [id number] [place] [address] 18 Apr, 2012 [facility] [place] [facility] [address] [id number] [place] [address] 14 Apr, 2012 [facility] [place] [facility] [address] [id number] [place] [address] 12 Apr, 2012 [facility] [place] [facility] [address] [id number] [place] [address] Mar, [facility] [place] [facility] [address] [id number] [place] [address] Feb, [facility] [place] [facility] [address] [id number] [place] [address] Feb, [facility] [place] [facility] [address] [id number] [place] [address] Feb, [facility] [place] [facility] [address] [id number] [place] [address] Jan, [facility] [place] [facility] [address] [id number] [place] [address] December, [facility] [place] [facility] [address] [id number] [place] [address] December, [facility] [place] [facility] [address] [id number] [place] [address] December, [facility] [place] [facility] [address] [id number] [place] [address] December, [facility] [place] [facility] [address] [id number] [place] [address] December, [facility] [address] [id number] [place] [address] December, [facility] [address] [id number] [place] [address] Nov, [facility] [address] [id number] [place] [address] Nov, [facility] [address] [id number] [place] [address] 17 Nov, 2011 [facility] [address] [id number] [place] [address] Nov, [facility] [address] [id number] [place] [address] 16 Nov, 2011 [facility] [address] [id number] [place] [address] 13 Nov, 2011 [facility] [address] [id number] [place] [address] 12 Nov, 2011 [facility] [address] [id number] [place] [address] Nov, [facility] [address] [id number] [place] [address] 05 Nov, 2011 [facility] [address] [id number] [place] [address] 04 Nov, 2011 [facility] [address] [id number] [place] [address] 30 Oct, 2011 [facility] [place] [facility] [address] [id number] [place] [address] 29 Oct, 2011 [facility] [address] [id number] [place] [address] 28 Oct, 2011 [facility] [address] [id number] [place] [address] Oct, [facility] [place] [facility] [address] [id number] [place] [address] 26 Oct, 2011 [facility] [place] [facility] [address] [id number] [place] [address] 23 Oct, 2011 [facility] [place] [facility] [address] [id number] [place] [address] 21 Oct, 2011 [facility] [place] [facility] [address] [id number] [place] [address] 19 Oct, 2011 [facility] [place] [facility] [address] [id number] [place] [address] 08 Oct, 2011 [facility] [place] [facility] [address] [id number] [place] [address] 07 Oct, 2011 [facility] [place] [facility] [address] [id number] [place] [address] 06 Oct, 2011 [facility] [place] [facility] [address] [id number] [place] [address] 05 Oct, 2011 [facility] [place] [facility] [address] [id number] [place] [address] 16 Sep, 2011 [facility] [place] [facility] [address] [id number] [place] [address] 14 Sep, 2011 [facility] [place] [facility] [address] [id number] [place] [address] 12 Sep, 2011 [facility] [place] [facility] [address] [id number] [place] [address] 10 Sep, 2011 [facility] [place] [facility] [address] [id number] [place] [address] 06 Sep, 2011 [facility] [place] [facility] [address] [id number] [place] [address] 06 Sep, 2011 [facility] [place] [facility] [address] [facility] [id number] [place] [address] 06 Sep, 2011 [facility] [place] [facility] [address] [id number] [place] [address] 06 Sep, 2011 [facility] [address] [id number] [place] [address] Sep, [facility] [address] [id number] [place] [address] 30 Aug, 2011 [facility] [address] [id number] [place] [address] Aug, [facility] [address] [id number] [place] [address] Aug, [facility] [address] [id number] [place] [address] Aug, [facility] [address] [id number] [place] [address] Aug, [facility] [address] [id number] [place] [address] Aug, [facility] [address] [id number] [place] [address] Aug, [facility] [address] [id number] [place] [address] 24 Jul, 2011 [facility] [address] [id number] [place] [address] 16 Jul, 2011 [facility] [address] [id number] [place] [address] 16 Jul, 2011 [facility] [address] [id number] [place] [address] 14 Jul, 2011 [facility] [place] [facility] [address] [id number] [place] [address] 30 Jun, 2011 [facility] [address] [id number] [place] [address] Jun, [facility] [address] [id number] [place] [address] May, [facility] [address] [facility] [id number] [place] [address] Mar, [facility] [address] [facility] [id number] [address] Jan, [facility] [address] [facility] [id number] [place] [address] May, IMMUNIZATIONS No Known Immunizations SOCIAL HISTORY Never Assessed [facility]AS[facility]IT [facility] [place] VITAL SIGNS MEDICATIONS Unknown [...]
--- OUTSIDE RECORDS SUMMARY | 2019-03-23 07:10 | XMS REPORT ---
Author Author Migration, Doctor Organization [facility] Address Unknown Phone Unavailable Care Team Providers Care Milking Worker Name Role Phone Migration, Doctor Unavailable Unavailable PROBLEMS Type Condition ICD9-CM Code [id number] Code Onset Dates Condition Status SNOMED Code Problem Other postablative hypothyroidism 244.1 Active [id number] Problem Major depressive disorder, recurrent episode, severe, without mention of psychotic behavior 296.33 Active [id number] ALLERGIES No Information ENCOUNTERS Encounter Location Date Diagnosis [place] [id number] [place] [address] Sep, Unspecified mood [affective] disorder [place] [id number] [place] [address] Aug, Unspecified mood [affective] disorder [place] [id number] [place] [address] Jul, Unspecified mood [affective] disorder 9 [place] [id number] [place] [address] Jun, Unspecified mood [affective] disorder [place] [id number] [place] [address] Mar, Affective disorder 296.90 [place] [id number] [place] [address] Mar, [place] [id number] [place] [address] Feb, Nexplanon removal V25.43 and Initiation of OCP (BCP) V25.01 [place] [id number] [place] [address] Feb, Episodic mood disorder 296.90 [place] [id number] [place] [address] [place] [address] Feb, [facility] [address], [place] [address] Feb, Routine gynecological examination V72.31 ; Pap test, as part of routine gynecological examination V76.2 ; Breast cancer screening V76.10 ; Nexplanon in place V45.52 and Rash 782.1 [facility] [address], [place] [address] Jan, Episodic mood disorder 296.90 [facility] [address], [place] [address] Jan, [facility] [address], [place] [address] December, Episodic mood disorder 296.90 [facility] [address], [place] [address] December, [facility] [address], [place] [address] December, [facility] [address], [place] [address] December, [facility] [address], [place] [address] Nov, [facility] [address], [place] [address] Nov, [facility] [address], [place] [address] Nov, [facility] [address], [place] [address] Oct, [facility] [address], [place] [address] Oct, [facility] [id number] [address] Oct, [facility] [id number] [place] [address] Oct, [facility] [place] [facility] [address] [id number] [place] [address] Oct, [facility] [place] [facility] [address] [id number] [place] [address] Oct, [facility] [place] [facility] [address] [id number] [place] [address] Sep, 2014 [facility] [place] [facility] [address] [id number] [place] [address] Sep, 2014 [facility] [place] [facility] [address] [id number] [place] [address] Sep, 2014 [facility] [place] [facility] [address] [id number] [place] [address] Sep, 2014 [facility] [place] [facility] [address] [id number] [place] [address] Sep, [facility] [place] [facility] [address] [id number] [place] [address] Sep, [facility] [place] [facility] [address] [id number] [place] [address] Aug, [facility] [place] [facility] [address] [id number] [place] [address] Aug, [facility] [place] [facility] [address] [id number] [place] [address] Aug, [facility] [place] [facility] [address] [id number] [place] [address] Aug, [facility] [place] [facility] [address] [id number] [place] [address] Aug, [facility] [place] [facility] [address] [id number] [place] [address] Aug, [facility] [place] [facility] [address] [id number] [place] [address] Aug, [facility] [place] [facility] [address] [id number] [place] [address] 14 Aug, 2014 [facility] [place] [facility] [address] [id number] [place] [address] Aug, [facility] [place] [facility] [address] [id number] [place] [address] Aug, [facility] [place] [facility] [address] [id number] [place] [address] Aug, [facility] [place] [facility] [address] [id number] [place] [address] Aug, [facility] [place] [facility] [address] [id number] [place] [address] Aug, [facility] [place] [facility] [address] [id number] [place] [address] Aug, [facility] [place] [facility] [address] [id number] [place] [address] Aug, [facility] [place] [facility] [address] [id number] [place] [address] Aug, [facility] [place] [facility] [address] [id number] [place] [address] Jul, [facility] [place] [facility] [address] [id number], [place] [address] 15 Jul, 2014 [facility] [place] [facility] [address] [id number], [place] [address] 15 Jul, 2014 [facility] [place] [facility] [address] [id number] [place] [address] Jul, [facility] [place] [facility] [address] [id number] [place] [address] Jul, [facility] [place] [facility] [address] [id number] [place] [address] Jul, [facility] [place] [facility] [address] [id number] [place] [address] 11 Jul, 2014 [facility] [place] [facility] [address] [id number] [place] [address] Jul, [facility] [place] [facility] [address] [id number] [place] [address] Jul, [facility] [place] [facility] [address] [id number] [place] [address] 05 Jul, 2014 [facility] [place] [facility] [address] [id number] [place] [address] 05 Jul, 2014 [facility] [place] [facility] [address] [id number] [place] [address] Jul, [facility] [place] [facility] [address] [id number] [place] [address] Jul, [facility] [place] [facility] [address] [id number] [place] [address] Jun, [facility] [place] [facility] [address] [id number] [place] [address] Jun, [facility] [place] [facility] [address] [id number] [place] [address] Jun, [facility] [place] [facility] [address] [facility] [id number] [place] [address] Jun, [facility] [place] [facility] [address] [id number] [place] [address] Jun, [facility] [place] [facility] [address] [id number] [place] [address] Jun, [facility] [place] [facility] [address] [id number] [place] [address] Jun, [facility] [place] [facility] [address] [id number] [place] [address] Jun, [facility] [place] [facility] [address] [id number], [place] [address] Jun, [facility] [place] [facility] [address] [id number] [place] [address] Jun, [facility] [place] [facility] [address] [id number] [place] [address] Jun, [facility] [place] [facility] [address] [id number] [place] [address] Jun, [facility] [place] [facility] [address] [id number] [place] [address] Jun, [facility] [place] [facility] [address] [id number] [place] [address] Jun, [facility] [place] [facility] [address] [id number] [place] [address] May, [facility] [place] [facility] [address] [id number] [place] [address] May, [facility] [place] [facility] [address] [id number] [place] [address] May, [facility] [place] [facility] [address] [id number] [place] [address] May, [facility] [place] [facility] [address] [id number] [place] [address] May, [facility] [place] [facility] [address] [id number] [place] [address] May, [facility] [place] [facility] [address] [id number] [place] [address] May, [facility] [place] [facility] [address] [id number] [place] [address] May, [facility] [place] [facility] [address] [id number] [place] [address] May, [facility] [place] [facility] [address] [id number] [place] [address] May, [facility] [place] [facility] [address] [id number] [place] [address] 30 Sep, 2013 [facility] [place] [facility] [address] [id number] [place] [address] 30 Sep, 2013 [facility] [place] [facility] [address] [id number] [place] [address] 19 Sep, 2013 [facility] [place] [facility] [address] [id number] [place] [address] 19 Sep, 2013 [facility] [place] [facility] [address] [id number] [place] [address] 18 Sep, 2013 [facility] [place] [facility] [address] [id number] [place] [address] 18 Sep, 2013 [facility] [place] [facility] [address] [id number] [place] [address] 18 Sep, 2013 [facility] [place] [facility] [address] [id number] [place] [address] 18 Sep, 2013 [facility] [place] [facility] [address] [id number] [place] [address] 16 Sep, 2013 [facility] [place] [facility] [address] [id number] [place] [address] 16 Sep, 2013 [facility] [place] [facility] [address] [id number] [place] [address] 08 Sep, 2013 [facility] [place] [facility] [address] [id number] [place] [address] 08 Sep, 2013 [facility] [place] [facility] [address] [id number] [place] [address] 08 Sep, 2013 [facility] [place] [facility] [address] [id number] [place] [address] 08 Sep, 2013 [facility] [place] [facility] [address] [id number] [place] [address] 04 Sep, 2013 [facility] [place] [facility] [address] [id number] [place] [address] 04 Sep, 2013 [facility] [place] [facility] [address] [id number] [place] [address] Mar, [facility] [place] [facility] [address] [id number] [place] [address] Mar, [facility] [place] [facility] [address] [id number] [place] [address] Mar, [facility] [place] [facility] [address] [id number] [place] [address] Jan, [facility] [place] [facility] [address] [id number] [place] [address] 23 Jan, 2014 [facility] [place] [facility] [address] [id number] [place] [address] Jan, [facility] [place] [facility] [address] [id number] [place] [address] 18 Jan, 2014 [facility] [place] [facility] [address] [id number] [place] [address] 16 Jan, 2014 [facility] [place] [facility] [address] [id number] [place] [address] 16 Jan, 2014 [facility] [place] [facility] [address] [id number] [place] [address] 16 Jan, 2014 [facility] [place] [facility] [address] [id number] [place] [address] 16 Jan, 2014 [facility] [place] [facility] [address] [id number] [place] [address] Jan, [facility] [place] [facility] [address] [id number] [place] [address] Jan, [facility] [place] [facility] [address] [id number] [place] [address] Jan, [facility] [place] [facility] [address] [id number] [place] [address] 11 Jan, 2014 [facility] [place] [facility] [address] [id number] [place] [address] Jan, [facility] [place] [facility] [address] [id number] [place] [address] Jan, [facility] [place] [facility] [address] [id number] [place] [address] Jan, [facility] [place] [facility] [address] [id number] [place] [address] Jan, [facility] [place] [facility] [address] [id number] [place] [address] December, [facility] [place] [facility] [address] [id number] [place] [address] December, [facility] [place] [facility] [address] [id number] [place] [address] December, [facility] [place] [facility] [address] [id number] [place] [address] December, [facility] [place] [facility] [address] [id number] [place] [address] December, [facility] [place] [facility] [address] [id number] [place] [address] Nov, [facility] [place] [facility] [address] [id number] [place] [address] Nov, [facility] [place] [facility] [address] [id number] [place] [address] Nov, [facility] [place] [facility] [address] [id number] [place] [address] Nov, [facility] [place] [facility] [address] [id number] [place] [address] Nov, [facility] [place] [facility] [address] [id number] [place] [address] Nov, [facility] [place] [facility] [address] [id number] [place] [address] Nov, [facility] [place] [facility] [address] [id number], [place] [address] 24 Nov, 2013 [facility] [place] [facility] [address] [id number] [place] [address] Nov, [facility] [place] [facility] [address] [id number] [place] [address] Nov, [facility] [place] [facility] [address] [facility] [id number] [place] [address] Oct, [facility] [place] [facility] [address] [id number] [place] [address] Oct, [facility] [place] [facility] [address] [id number] [place] [address] Oct, [facility] [place] [facility] [address] [id number] [place] [address] Oct, [facility] [place] [facility] [address] [facility] [id number] [place] [address] Oct, [facility] [place] [facility] [address] [id number] [place] [address] Oct, [facility] [place] [facility] [address] [id number] [place] [address] Oct, [facility] [place] [facility] [address] [facility] [id number] [place] [address] Oct, [facility] [place] [facility] [address] [id number] [place] [address] Oct, [facility] [place] [facility] [address] [id number] [place] [address] Sep, [facility] [place] [facility] [address] [id number] [place] [address] Sep, [facility] [place] [facility] [address] [id number] [place] [address] Sep, [facility] [place] [facility] [address] [facility] [id number] [place] [address] Sep, [facility] [place] [facility] [address] [id number] [place] [address] Sep, [facility] [place] [facility] [address] [id number] [place] [address] Sep, [facility] [place] [facility] [address] [id number] [place] [address] Sep, [facility] [place] [facility] [address] [id number] [place] [address] Aug, [facility] [place] [facility] [address] [id number] [place] [address] Aug, [facility] [place] [facility] [address] [id number] [place] [address] Aug, [facility] [place] [facility] [address] [id number] [place] [address] Aug, [facility] [place] [facility] [address] [id number] [place] [address] Aug, [facility] [place] [facility] [address] [id number] [place] [address] Aug, [facility] [place] [facility] [address] [id number] [place] [address] Aug, [facility] [place] [facility] [address] [id number] [place] [address] Aug, [facility] [place] [facility] [address] [id number], [place] [address] Jul, [facility] [place] [facility] [address] [id number] [place] [address] Jul, [facility] [place] [facility] [address] [id number] [place] [address] Jul, [facility] [place] [facility] [address] [id number], [place] [address] Jul, [facility] [place] [facility] [address] [id number], [place] [address] Jun, [facility] [place] [facility] [address] [id number] [place] [address] Jun, [facility] [place] [facility] [address] [id number] [place] [address] Jun, [facility] [place] [facility] [address] [id number] [place] [address] May, [facility] [place] [facility] [address] [id number] [place] [address] May, [facility] [place] [facility] [address] [id number] [place] [address] May, [facility] [place] [facility] [address] [id number] [place] [address] May, [facility] [place] [facility] [address] [id number] [place] [address] May, [facility] [place] [facility] [address] [id number] [place] [address] May, [facility] [place] [facility] [address] [facility] [id number] [place] [address] May, [facility] [place] [facility] [address] [facility] [id number] [place] [address] Apr, [facility] [place] [facility] [address] [id number], [place] [address] 17 Apr, 2013 [facility] [place] [facility] [address] [id number], [place] [address] 12 Apr, 2013 [facility] [place] [facility] [address] [id number] [place] [address] 11 Apr, 2013 [facility] [place] [facility] [address] [facility] [id number] [place] [address] 05 Apr, 2013 [facility] [place] [facility] [address] [facility] [id number] [place] [address] Mar, [facility] [place] [facility] [address] [id number] [place] [address] Mar, [facility] [place] [facility] [address] [id number] [place] [address] Mar, [facility] [place] [facility] [address] [id number] [place] [address] Mar, [facility] [place] [facility] [address] [id number] [place] [address] Feb, [facility] [place] [facility] [address] [id number] [place] [address] Feb, [facility] [place] [facility] [address] [id number] [place] [address] Feb, [facility] [place] [facility] [address] [id number] [place] [address] Feb, [facility] [place] [facility] [address] [id number] [place] [address] Feb, [facility] [place] [facility] [address] [id number] [place] [address] Feb, [facility] [place] [facility] [address] [id number] [place] [address] Feb, [facility] [place] [facility] [address] [id number] [place] [address] Feb, [facility] [place] [facility] [address] [id number] [place] [address] Jan, [facility] [place] [facility] [address] [id number] [place] [address] Jan, [facility] [place] [facility] [address] [id number] [place] [address] Jan, [facility] [place] [facility] [address] [id number] [place] [address] Jan, [facility] [place] [facility] [address] [id number] [place] [address] Jan, [facility] [address] [id number] [place] [address] Jan, [facility] [place] [facility] [address] [id number] [place] [address] Jan, [facility] [place] [facility] [address] [id number] [place] [address] December, [facility] [place] [facility] [address] [id number] [place] [address] December, [facility] [address] [id number] [place] [address] 30 Nov, 2012 [facility] [place] [facility] [address] [id number] [place] [address] Nov, [facility] [place] [facility] [address] [id number] [place] [address] Nov, [facility] [place] [facility] [address] [id number] [place] [address] Nov, [facility] [place] [facility] [address] [id number] [place] [address] 24 Nov, 2012 [facility] [place] [facility] [address] [id number] [place] [address] Nov, [facility] [place] [facility] [address] [id number] [place] [address] Nov, [facility] [place] [facility] [address] [id number] [address] 15 Nov, 2012 [facility] [place] [facility] [address] [id number] [place] [address] 11 Nov, 2012 [facility] [place] [facility] [address] [id number] [place] [address] 10 Nov, 2012 [facility] [place] [facility] [address] [id number] [place] [address] 08 Nov, 2012 [facility] [place] [facility] [address] [id number] [place] [address] 05 Nov, 2012 [facility] [address] [id number] [place] [address] Nov, [facility] [place] [facility] [address] [id number] [place] [address] Nov, [facility] [address] [id number] [place] [address] Oct, [facility] [place] [facility] [address] [id number] [place] [address] Oct, [facility] [address] [id number] [place] [address] Oct, [facility] [address] [id number] [place] [address] Oct, [facility] [address] [id number] [place] [address] Oct, [facility] [address] [id number] [place] [address] Oct, [facility] [address] [id number] [place] [address] Oct, [facility] [address] [id number] [place] [address] Oct, [facility] [address] [id number] [place] [address] Oct, [facility] [place] [facility] [address] [id number] [place] [address] Sep, [facility] [place] [facility] [address] [id number] [place] [address] Aug, [facility] [place] [facility] [address] [id number] [place] [address] Aug, [facility] [place] [facility] [address] [id number] [place] [address] Aug, [facility] [place] [facility] [address] [id number] [place] [address] Aug, [facility] [place] [facility] [address] [id number] [place] [address] 31 Jul, 2012 [facility] [place] [facility] [address] [id number] [place] [address] 31 Jul, 2012 [facility] [place] [facility] [address] [id number] [place] [address] Jul, [facility] [address] [id number] [place] [address] 19 Jul, 2012 [facility] [place] [facility] [address] [id number] [place] [address] Jul, [facility] [address] [id number] [place] [address] 15 Jul, 2012 [facility] [place] [facility] [address] [id number] [place] [address] 15 Jul, 2012 [facility] [place] [facility] [address] [id number] [place] [address] 14 Jul, 2012 [facility] [place] [facility] [address] [id number] [place] [address] 14 Jul, 2012 [facility] [place] [facility] [address] [id number] [place] [address] May, [facility] [place] [facility] [address] [id number] [place] [address] 22 May, 2012 [facility] [place] [facility] [address] [id number] [place] [address] 16 May, 2012 [facility] [place] [facility] [address] [id number] [place] [address] 16 May, 2012 [facility] [place] [facility] [address] [id number] [place] [address] 12 May, 2012 [facility] [place] [facility] [address] [id number] [place] [address] May, [facility] [place] [facility] [address] [id number] [place] [address] 27 Apr, 2012 [facility] [place] [facility] [address] [id number] [place] [address] 27 Apr, 2012 [facility] [place] [facility] [address] [id number] [place] [address] 24 Apr, 2012 [facility] [place] [facility] [address] [id number] [place] [address] 18 Apr, 2012 [facility] [place] [facility] [address] [id number] [place] [address] 14 Apr, 2012 [facility] [place] [facility] [address] [id number] [place] [address] 12 Apr, 2012 [facility] [place] [facility] [address] [id number] [place] [address] Mar, [facility] [place] [facility] [address] [id number] [place] [address] Feb, [facility] [place] [facility] [address] [id number] [place] [address] Feb, [facility] [place] [facility] [address] [id number] [place] [address] Feb, [facility] [place] [facility] [address] [id number] [place] [address] Jan, [facility] [place] [facility] [address] [id number] [place] [address] December, [facility] [place] [facility] [address] [id number] [place] [address] December, [facility] [place] [facility] [address] [id number] [place] [address] December, [facility] [place] [facility] [address] [id number] [place] [address] December, [facility] [place] [facility] [address] [id number] [place] [address] December, [facility] [address] [id number] [place] [address] December, [facility] [address] [id number] [place] [address] Nov, [facility] [address] [id number] [place] [address] Nov, [facility] [address] [address] [id number] [place] [address] 17 Nov, 2011 [facility] [address] [id number] [place] [address] Nov, [facility] [address] [id number] [place] [address] 16 Nov, 2011 [facility] [address] [id number] [place] [address] 13 Nov, 2011 [facility] [address] [id number] [place] [address] 12 Nov, 2011 [facility] [address] [id number] [place] [address] Nov, [facility] [address] [id number] [place] [address] 05 Nov, 2011 [facility] [address] [id number] [place] [address] 04 Nov, 2011 [facility] [address] [id number] [place] [address] 30 Oct, 2011 [facility] [place] [facility] [address] [id number] [place] [address] 29 Oct, 2011 [facility] [address] [id number] [place] [address] 28 Oct, 2011 [facility] [address] [id number] [place] [address] Oct, [facility] [place] [facility] [address] [id number] [place] [address] 26 Oct, 2011 [facility] [place] [facility] [address] [id number] [place] [address] 23 Oct, 2011 [facility] [place] [facility] [address] [id number] [place] [address] 21 Oct, 2011 [facility] [place] [facility] [address] [id number] [place] [address] 19 Oct, 2011 [facility] [place] [facility] [address] [id number] [place] [address] 08 Oct, 2011 [facility] [place] [facility] [address] [id number] [place] [address] 07 Oct, 2011 [facility] [place] [facility] [address] [id number] [place] [address] 06 Oct, 2011 [facility] [place] [facility] [address] [id number] [place] [address] 05 Oct, 2011 [facility] [place] [facility] [address] [id number] [place] [address] 16 Sep, 2011 [facility] [place] [facility] [address] [id number] [place] [address] 14 Sep, 2011 [facility] [place] [facility] [address] [id number] [place] [address] 12 Sep, 2011 [facility] [place] [facility] [address] [id number] [place] [address] 10 Sep, 2011 [facility] [place] [facility] [address] [id number] [place] [address] 06 Sep, 2011 [facility] [place] [facility] [address] [id number] [place] [address] 06 Sep, 2011 [facility] [place] [facility] [address] [facility] [id number] [place] [address] 06 Sep, 2011 [facility] [place] [facility] [address] [id number] [place] [address] 06 Sep, 2011 [facility] [address] [id number] [place] [address] Sep, [facility] [address] [id number] [place] [address] 30 Aug, 2011 [facility] [address] [id number] [place] [address] Aug, [facility] [address] [id number] [place] [address] Aug, [facility] [address] [id number] [place] [address] Aug, [facility] [address] [id number] [place] [address] Aug, [facility] [address] [id number] [place] [address] Aug, [facility] [address] [id number] [place] [address] Aug, [facility] [address] [id number] [place] [address] 24 Jul, 2011 [facility] [address] [id number] [place] [address] 16 Jul, 2011 [facility] [address] [id number] [place] [address] 16 Jul, 2011 [facility] [address] [id number] [place] [address] 14 Jul, 2011 [facility] [place] [facility] [address] [id number] [place] [address] 30 Jun, 2011 [facility] [address] [id number] [place] [address] Jun, [facility] [address] [id number] [place] [address] May, [facility] [address] [facility] [id number] [place] [address] Mar, [facility] [address] [facility] [id number] [address] Jan, [facility] [address] [facility] [id number] [place] [address] May, IMMUNIZATIONS No Known Immunizations SOCIAL HISTORY Never Assessed REASON FOR VISIT [facility] [place] PLAN OF CARE VITAL SIGNS MEDICATIONS Unknown [...]
--- OUTSIDE RECORDS SUMMARY | 2019-03-23 07:11 | XMS REPORT ---
Author Author Migration, Doctor Organization [facility] Address Unknown Phone Unavailable Care Team Providers Care Venue Manager Name Role Phone Migration, Doctor Unavailable Unavailable PROBLEMS Type Condition ICD9-CM Code HIG31-TV Code Onset Dates Condition Status SNOMED Code Problem Other postablative hypothyroidism 244.1 Active 848771291 Problem Major depressive disorder, recurrent episode, severe, without mention of psychotic behavior 296.33 Active [id number] ALLERGIES No Information ENCOUNTERS Encounter Location Date Diagnosis [place] [id number] [place] [address] Sep, Unspecified mood [affective] disorder [place] [id number] [place] [address] Aug, Unspecified mood [affective] disorder [place] [id number] [place] [address] Jul, Unspecified mood [affective] disorder [address] [place] [id number] [place] [address] Jun, Unspecified mood [affective] disorder [place] [id number] [place] [address] Mar, Affective disorder 296.90 [place] [id number] [place] [address] Mar, [place] [id number] [place] [address] Feb, Nexplanon removal V25.43 and Initiation of OCP (BCP) V25.01 [place] [id number] [place] [address] Feb, Episodic mood disorder 296.90 [place] [id number] [place] [address] [place] [address] Feb, [facility] [address] [place] [address] Feb, Routine gynecological examination V72.31 ; Pap test, as part of routine gynecological examination V76.2 ; Breast cancer screening V76.10 ; Nexplanon in place V45.52 and Rash 782.1 [facility] [address] [place] [address] Jan, Episodic mood disorder 296.90 [facility] [address], [place] [address] Jan, [facility] [address], [place] [address] December, Episodic mood disorder 296.90 [facility] [address], [place] [address] December, [facility] [address], [place] [address] December, [facility] [address], [place] [address] December, [facility] [address], [place] [address] Nov, [facility] [address], [place] [address] Nov, [facility] [address], [place] [address] Nov, [facility] [address], [place] [address] Oct, [facility] [address], [place] [address] Oct, [facility] [id number] [address] Oct, [facility] [id number] [place] [address] Oct, [facility] [place] [facility] [address] [id number] [place] [address] Oct, [facility] [place] [facility] [address] [id number] [place] [address] Oct, [facility] [place] [facility] [address] [id number] [place] [address] Sep, 2014 [facility] [place] [facility] [address] [id number] [place] [address] Sep, 2014 [facility] [place] [facility] [address] [id number] [place] [address] Sep, 2014 [facility] [place] [facility] [address] [id number] [place] [address] Sep, 2014 [facility] [place] [facility] [address] [id number] [place] [address] Sep, [facility] [place] [facility] [address] [id number] [place] [address] Sep, [facility] [place] [facility] [address] [id number] [place] [address] Aug, [facility] [place] [facility] [address] [id number] [place] [address] Aug, [facility] [place] [facility] [address] [id number] [place] [address] Aug, [facility] [place] [facility] [address] [id number] [place] [address] Aug, [facility] [place] [facility] [address] [id number] [place] [address] Aug, [facility] [place] [facility] [address] [id number] [place] [address] Aug, [facility] [place] [facility] [address] [id number] [place] [address] Aug, [facility] [place] [facility] [address] [id number] [place] [address] 14 Aug, 2014 [facility] [place] [facility] [address] [id number] [place] [address] Aug, [facility] [place] [facility] [address] [id number] [place] [address] Aug, [facility] [place] [facility] [address] [id number] [place] [address] Aug, [facility] [place] [facility] [address] [id number] [place] [address] Aug, [facility] [place] [facility] [address] [id number] [place] [address] Aug, [facility] [place] [facility] [address] [id number] [place] [address] Aug, [facility] [place] [facility] [address] [id number] [place] [address] Aug, [facility] [place] [facility] [address] [id number] [place] [address] Aug, [facility] [place] [facility] [address] [id number] [place] [address] Jul, [facility] [place] [facility] [address] [id number], [place] [address] 15 Jul, 2014 [facility] [place] [facility] [address] [id number], [place] [address] 15 Jul, 2014 [facility] [place] [facility] [address] [id number] [place] [address] Jul, [facility] [place] [facility] [address] [id number] [place] [address] Jul, [facility] [place] [facility] [address] [id number] [place] [address] Jul, [facility] [place] [facility] [address] [id number] [place] [address] 11 Jul, 2014 [facility] [place] [facility] [address] [id number] [place] [address] Jul, [facility] [place] [facility] [address] [id number] [place] [address] Jul, [facility] [place] [facility] [address] [id number] [place] [address] 05 Jul, 2014 [facility] [place] [facility] [address] [id number] [place] [address] 05 Jul, 2014 [facility] [place] [facility] [address] [id number] [place] [address] Jul, [facility] [place] [facility] [address] [id number] [place] [address] Jul, [facility] [place] [facility] [address] [id number] [place] [address] Jun, [facility] [place] [facility] [address] [id number] [place] [address] Jun, [facility] [place] [facility] [address] [id number] [place] [address] Jun, [facility] [place] [facility] [address] [facility] [id number] [place] [address] Jun, [facility] [place] [facility] [address] [id number] [place] [address] Jun, [facility] [place] [facility] [address] [id number] [place] [address] Jun, [facility] [place] [facility] [address] [id number] [place] [address] Jun, [facility] [place] [facility] [address] [id number] [place] [address] Jun, [facility] [place] [facility] [address] [id number], [place] [address] Jun, [facility] [place] [facility] [address] [id number] [place] [address] Jun, [facility] [place] [facility] [address] [id number] [place] [address] Jun, [facility] [place] [facility] [address] [id number] [place] [address] Jun, [facility] [place] [facility] [address] [id number] [place] [address] Jun, [facility] [place] [facility] [address] [id number] [place] [address] Jun, [facility] [place] [facility] [address] [id number] [place] [address] May, [facility] [place] [facility] [address] [id number] [place] [address] May, [facility] [place] [facility] [address] [id number] [place] [address] May, [facility] [place] [facility] [address] [id number] [place] [address] May, [facility] [place] [facility] [address] [id number] [place] [address] May, [facility] [place] [facility] [address] [id number] [place] [address] May, [facility] [place] [facility] [address] [id number] [place] [address] May, [facility] [place] [facility] [address] [id number] [place] [address] May, [facility] [place] [facility] [address] [id number] [place] [address] May, [facility] [place] [facility] [address] [id number] [place] [address] May, [facility] [place] [facility] [address] [id number] [place] [address] 30 Sep, 2013 [facility] [place] [facility] [address] [id number] [place] [address] 30 Sep, 2013 [facility] [place] [facility] [address] [id number] [place] [address] 19 Sep, 2013 [facility] [place] [facility] [address] [id number] [place] [address] 19 Sep, 2013 [facility] [place] [facility] [address] [id number] [place] [address] 18 Sep, 2013 [facility] [place] [facility] [address] [id number] [place] [address] 18 Sep, 2013 [facility] [place] [facility] [address] [id number] [place] [address] 18 Sep, 2013 [facility] [place] [facility] [address] [id number] [place] [address] 18 Sep, 2013 [facility] [place] [facility] [address] [id number] [place] [address] 16 Sep, 2013 [facility] [place] [facility] [address] [id number] [place] [address] 16 Sep, 2013 [facility] [place] [facility] [address] [id number] [place] [address] 08 Sep, 2013 [facility] [place] [facility] [address] [id number] [place] [address] 08 Sep, 2013 [facility] [place] [facility] [address] [id number] [place] [address] 08 Sep, 2013 [facility] [place] [facility] [address] [id number] [place] [address] 08 Sep, 2013 [facility] [place] [facility] [address] [id number] [place] [address] 04 Sep, 2013 [facility] [place] [facility] [address] [id number] [place] [address] 04 Sep, 2013 [facility] [place] [facility] [address] [id number] [place] [address] Mar, [facility] [place] [facility] [address] [id number] [place] [address] Mar, [facility] [place] [facility] [address] [id number] [place] [address] Mar, [facility] [place] [facility] [address] [id number] [place] [address] Jan, [facility] [place] [facility] [address] [id number] [place] [address] 23 Jan, 2014 [facility] [place] [facility] [address] [id number] [place] [address] Jan, [facility] [place] [facility] [address] [id number] [place] [address] 18 Jan, 2014 [facility] [place] [facility] [address] [id number] [place] [address] 16 Jan, 2014 [facility] [place] [facility] [address] [id number] [place] [address] 16 Jan, 2014 [facility] [place] [facility] [address] [id number] [place] [address] 16 Jan, 2014 [facility] [place] [facility] [address] [id number] [place] [address] 16 Jan, 2014 [facility] [place] [facility] [address] [id number] [place] [address] Jan, [facility] [place] [facility] [address] [id number] [place] [address] Jan, [facility] [place] [facility] [address] [id number] [place] [address] Jan, [facility] [place] [facility] [address] [id number] [place] [address] 11 Jan, 2014 [facility] [place] [facility] [address] [id number] [place] [address] Jan, [facility] [place] [facility] [address] [id number] [place] [address] Jan, [facility] [place] [facility] [address] [id number] [place] [address] Jan, [facility] [place] [facility] [address] [id number] [place] [address] Jan, [facility] [place] [facility] [address] [id number] [place] [address] December, [facility] [place] [facility] [address] [id number] [place] [address] December, [facility] [place] [facility] [address] [id number] [place] [address] December, [facility] [place] [facility] [address] [id number] [place] [address] December, [facility] [place] [facility] [address] [id number] [place] [address] December, [facility] [place] [facility] [address] [id number] [place] [address] Nov, [facility] [place] [facility] [address] [id number] [place] [address] Nov, [facility] [place] [facility] [address] [id number] [place] [address] Nov, [facility] [place] [facility] [address] [id number] [place] [address] Nov, [facility] [place] [facility] [address] [id number] [place] [address] Nov, [facility] [place] [facility] [address] [id number] [place] [address] Nov, [facility] [place] [facility] [address] [id number] [place] [address] Nov, [facility] [place] [facility] [address] [id number], [place] [address] 24 Nov, 2013 [facility] [place] [facility] [address] [id number] [place] [address] Nov, [facility] [place] [facility] [address] [id number] [place] [address] Nov, [facility] [place] [facility] [address] [facility] [id number] [place] [address] Oct, [facility] [place] [facility] [address] [id number] [place] [address] Oct, [facility] [place] [facility] [address] [id number] [place] [address] Oct, [facility] [place] [facility] [address] [id number] [place] [address] Oct, [facility] [place] [facility] [address] [facility] [id number] [place] [address] Oct, [facility] [place] [facility] [address] [id number] [place] [address] Oct, [facility] [place] [facility] [address] [id number] [place] [address] Oct, [facility] [place] [facility] [address] [facility] [id number] [place] [address] Oct, [facility] [place] [facility] [address] [id number] [place] [address] Oct, [facility] [place] [facility] [address] [id number] [place] [address] Sep, [facility] [place] [facility] [address] [id number] [place] [address] Sep, [facility] [place] [facility] [address] [id number] [place] [address] Sep, [facility] [place] [facility] [address] [facility] [id number] [place] [address] Sep, [facility] [place] [facility] [address] [id number] [place] [address] Sep, [facility] [place] [facility] [address] [id number] [place] [address] Sep, [facility] [place] [facility] [address] [id number] [place] [address] Sep, [facility] [place] [facility] [address] [id number] [place] [address] Aug, [facility] [place] [facility] [address] [id number] [place] [address] Aug, [facility] [place] [facility] [address] [id number] [place] [address] Aug, [facility] [place] [facility] [address] [id number] [place] [address] Aug, [facility] [place] [facility] [address] [id number] [place] [address] Aug, [facility] [place] [facility] [address] [id number] [place] [address] Aug, [facility] [place] [facility] [address] [id number] [place] [address] Aug, [facility] [place] [facility] [address] [id number] [place] [address] Aug, [facility] [place] [facility] [address] [id number], [place] [address] Jul, [facility] [place] [facility] [address] [id number] [place] [address] Jul, [facility] [place] [facility] [address] [id number] [place] [address] Jul, [facility] [place] [facility] [address] [id number], [place] [address] Jul, [facility] [place] [facility] [address] [id number], [place] [address] Jun, [facility] [place] [facility] [address] [id number] [place] [address] Jun, [facility] [place] [facility] [address] [id number] [place] [address] Jun, [facility] [place] [facility] [address] [id number] [place] [address] May, [facility] [place] [facility] [address] [id number] [place] [address] May, [facility] [place] [facility] [address] [id number] [place] [address] May, [facility] [place] [facility] [address] [id number] [place] [address] May, [facility] [place] [facility] [address] [id number] [place] [address] May, [facility] [place] [facility] [address] [id number] [place] [address] May, [facility] [place] [facility] [address] [facility] [id number] [place] [address] May, [facility] [place] [facility] [address] [facility] [id number] [place] [address] Apr, [facility] [place] [facility] [address] [id number], [place] [address] 17 Apr, 2013 [facility] [place] [facility] [address] [id number], [place] [address] 12 Apr, 2013 [facility] [place] [facility] [address] [id number] [place] [address] 11 Apr, 2013 [facility] [place] [facility] [address] [facility] [id number] [place] [address] 05 Apr, 2013 [facility] [place] [facility] [address] [facility] [id number] [place] [address] Mar, [facility] [place] [facility] [address] [id number] [place] [address] Mar, [facility] [place] [facility] [address] [id number] [place] [address] Mar, [facility] [place] [facility] [address] [id number] [place] [address] Mar, [facility] [place] [facility] [address] [id number] [place] [address] Feb, [facility] [place] [facility] [address] [id number] [place] [address] Feb, [facility] [place] [facility] [address] [id number] [place] [address] Feb, [facility] [place] [facility] [address] [id number] [place] [address] Feb, [facility] [place] [facility] [address] [id number] [place] [address] Feb, [facility] [place] [facility] [address] [id number] [place] [address] Feb, [facility] [place] [facility] [address] [id number] [place] [address] Feb, [facility] [place] [facility] [address] [id number] [place] [address] Feb, [facility] [place] [facility] [address] [id number] [place] [address] Jan, [facility] [place] [facility] [address] [id number] [place] [address] Jan, [facility] [place] [facility] [address] [id number] [place] [address] Jan, [facility] [place] [facility] [address] [id number] [place] [address] Jan, [facility] [place] [facility] [address] [id number] [place] [address] Jan, [facility] [address] [id number] [place] [address] Jan, [facility] [place] [facility] [address] [id number] [place] [address] Jan, [facility] [place] [facility] [address] [id number] [place] [address] December, [facility] [place] [facility] [address] [id number] [place] [address] December, [facility] [address] [id number] [place] [address] 30 Nov, 2012 [facility] [place] [facility] [address] [id number] [place] [address] Nov, [facility] [place] [facility] [address] [id number] [place] [address] Nov, [facility] [place] [facility] [address] [id number] [place] [address] Nov, [facility] [place] [facility] [address] [id number] [place] [address] 24 Nov, 2012 [facility] [place] [facility] [address] [id number] [place] [address] Nov, [facility] [place] [facility] [address] [id number] [place] [address] Nov, [facility] [place] [facility] [address] [id number], [place] [address] 15 Nov, 2012 [facility] [place] [facility] [address] [id number] [place] [address] 11 Nov, 2012 [facility] [place] [facility] [address] [id number] [place] [address] 10 Nov, 2012 [facility] [place] [facility] [address] [id number] [place] [address] 08 Nov, 2012 [facility] [place] [facility] [address] [id number] [place] [address] 05 Nov, 2012 [facility] [address] [id number] [place] [address] Nov, [facility] [place] [facility] [address] [id number] [place] [address] Nov, [facility] [address] [id number] [place] [address] Oct, [facility] [place] [facility] [address] [id number] [place] [address] Oct, [facility] [address] [id number] [place] [address] Oct, [facility] [address] [id number] [place] [address] Oct, [facility] [address] [id number] [place] [address] Oct, [facility] [address] [id number] [place] [address] Oct, [facility] [address] [id number] [place] [address] Oct, [facility] [address] [id number] [place] [address] Oct, [facility] [address] [id number] [place] [address] Oct, [facility] [place] [facility] [address] [id number] [place] [address] Sep, [facility] [place] [facility] [address] [id number] [place] [address] Aug, [facility] [place] [facility] [address] [id number] [place] [address] Aug, [facility] [place] [facility] [address] [id number] [place] [address] Aug, [facility] [place] [facility] [address] [id number] [place] [address] Aug, [facility] [place] [facility] [address] [id number] [place] [address] 31 Jul, 2012 [facility] [place] [facility] [address] [id number] [place] [address] 31 Jul, 2012 [facility] [place] [facility] [address] [id number] [place] [address] Jul, [facility] [address] [id number] [place] [address] 19 Jul, 2012 [facility] [place] [facility] [address] [id number] [place] [address] Jul, [facility] [address] [id number] [place] [address] 15 Jul, 2012 [facility] [place] [facility] [address] [id number] [place] [address] 15 Jul, 2012 [facility] [place] [facility] [address] [id number] [place] [address] 14 Jul, 2012 [facility] [place] [facility] [address] [id number] [place] [address] 14 Jul, 2012 [facility] [place] [facility] [address] [id number] [place] [address] May, [facility] [place] [facility] [address] [id number] [place] [address] 22 May, 2012 [facility] [place] [facility] [address] [id number] [place] [address] 16 May, 2012 [facility] [place] [facility] [address] [id number] [place] [address] 16 May, 2012 [facility] [place] [facility] [address] [id number] [place] [address] 12 May, 2012 [facility] [place] [facility] [address] [id number] [place] [address] May, [facility] [place] [facility] [address] [id number] [place] [address] 27 Apr, 2012 [facility] [place] [facility] [address] [id number] [place] [address] 27 Apr, 2012 [facility] [place] [facility] [address] [id number] [place] [address] 24 Apr, 2012 [facility] [place] [facility] [address] [id number] [place] [address] 18 Apr, 2012 [facility] [place] [facility] [address] [id number] [place] [address] 14 Apr, 2012 [facility] [place] [facility] [address] [id number] [place] [address] 12 Apr, 2012 [facility] [place] [facility] [address] [id number] [place] [address] Mar, [facility] [place] [facility] [address] [id number] [place] [address] Feb, [facility] [place] [facility] [address] [id number] [place] [address] Feb, [facility] [place] [facility] [address] [id number] [place] [address] Feb, [facility] [place] [facility] [address] [id number] [place] [address] Jan, [facility] [place] [facility] [address] [id number] [place] [address] December, [facility] [place] [facility] [address] [id number] [place] [address] December, [facility] [place] [facility] [address] [id number] [place] [address] December, [facility] [place] [facility] [address] [id number] [place] [address] December, [facility] [place] [facility] [address] [id number] [place] [address] December, [facility] [address] [id number] [place] [address] December, [facility] [address] [id number] [place] [address] Nov, [facility] [address] [id number] [place] [address] Nov, [facility] [address] [id number] [place] [address] 17 Nov, 2011 [facility] [address] [id number] [place] [address] Nov, [facility] [address] [id number] [place] [address] 16 Nov, 2011 [facility] [address] [id number] [place] [address] 13 Nov, 2011 [facility] [address] [id number] [place] [address] 12 Nov, 2011 [facility] [address] [id number] [place] [address] Nov, [facility] [address] [id number] [place] [address] 05 Nov, 2011 [facility] [address] [id number] [place] [address] 04 Nov, 2011 [facility] [address] [id number] [place] [address] 30 Oct, 2011 [facility] [place] [facility] [address] [id number] [place] [address] 29 Oct, 2011 [facility] [address] [id number] [place] [address] 28 Oct, 2011 [facility] [address] [id number] [place] [address] Oct, [facility] [place] [facility] [address] [id number] [place] [address] 26 Oct, 2011 [facility] [place] [facility] [address] [id number] [place] [address] 23 Oct, 2011 [facility] [place] [facility] [address] [id number] [place] [address] 21 Oct, 2011 [facility] [place] [facility] [address] [id number] [place] [address] 19 Oct, 2011 [facility] [place] [facility] [address] [id number] [place] [address] 08 Oct, 2011 [facility] [place] [facility] [address] [id number] [place] [address] 07 Oct, 2011 [facility] [place] [facility] [address] [id number] [place] [address] 06 Oct, 2011 [facility] [place] [facility] [address] [id number] [place] [address] 05 Oct, 2011 [facility] [place] [facility] [address] [id number] [place] [address] 16 Sep, 2011 [facility] [place] [facility] [address] [id number] [place] [address] 14 Sep, 2011 [facility] [place] [facility] [address] [id number] [place] [address] 12 Sep, 2011 [facility] [place] [facility] [address] [id number] [place] [address] 10 Sep, 2011 [facility] [place] [facility] [address] [id number] [place] [address] 06 Sep, 2011 [facility] [place] [facility] [address] [id number] [place] [address] 06 Sep, 2011 [facility] [place] [facility] [address] [facility] [id number] [place] [address] 06 Sep, 2011 [facility] [place] [facility] [address] [id number] [place] [address] 06 Sep, 2011 [facility] [address] [id number] [place] [address] Sep, [facility] [address] [id number] [place] [address] 30 Aug, 2011 [facility] [address] [id number] [place] [address] Aug, [facility] [address] [id number] [place] [address] Aug, [facility] [address] [id number] [place] [address] Aug, [facility] [address] [id number] [place] [address] Aug, [facility] [address] [id number] [place] [address] Aug, [facility] [address] [id number] [place] [address] Aug, [facility] [address] [id number] [place] [address] 24 Jul, 2011 [facility] [address] [id number] [place] [address] 16 Jul, 2011 [facility] [address] [id number] [place] [address] 16 Jul, 2011 [facility] [address] [id number] [place] [address] 14 Jul, 2011 [facility] [place] [facility] [address] [id number] [place] [address] 30 Jun, 2011 [facility] [address] [id number] [place] [address] Jun, [facility] [address] [id number] [place] [address] May, [facility] [address] [facility] [id number] [place] [address] Mar, [facility] [address] [facility] [id number], [place] [address] Jan, [facility] [address] [facility] [id number] [place] [address] May, IMMUNIZATIONS No Known Immunizations SOCIAL HISTORY Never Assessed REASON FOR VISIT [facility] [place] PLAN OF CARE VITAL SIGNS MEDICATIONS Unknown [...]
--- OUTSIDE RECORDS SUMMARY | 2019-03-23 07:11 | XMS REPORT ---
Author Author Migration, Doctor Organization [facility] Address Unknown Phone Unavailable Care Team Providers Care Collar Turner Operator Name Role Phone Migration, Doctor Unavailable Unavailable PROBLEMS Type Condition ICD9-CM Code [id number] Code Onset Dates Condition Status SNOMED Code Problem Other postablative hypothyroidism 244.1 Active 688256607 Problem Major depressive disorder, recurrent episode, severe, without mention of psychotic behavior 296.33 Active 33122121 ALLERGIES No Information ENCOUNTERS Encounter Location Date Diagnosis [place] [id number] [place] [address] Sep, Unspecified mood [affective] disorder [place] [id number] [place] [address] Aug, Unspecified mood [affective] disorder [place] [id number] [place] [address] Jul, Unspecified mood [affective] disorder [address] [place] [id number] [place] [address] Jun, Unspecified mood [affective] disorder [place] [id number] [place] [address] Mar, Affective disorder 296.90 [place] [id number] [place] [address] Mar, [place] [id number] [place] [address] Feb, Nexplanon removal V25.43 and Initiation of OCP (BCP) V25.01 [place] [id number] [place] [address] Feb, Episodic mood disorder 296.90 [place] [id number] [place] [address] [place] [address] Feb, [facility] [address] [address] Feb, Routine gynecological examination V72.31 ; Pap test, as part of routine gynecological examination V76.2 ; Breast cancer screening V76.10 ; Nexplanon in place V45.52 and Rash 782.1 [facility] [address] [address] Jan, Episodic mood disorder 296.90 [facility] [address] [address] Jan, [facility] [address] [address] December, Episodic mood disorder 296.90 [facility] [address] [address] December, [facility] [address] [address] December, [facility] [address] [address] December, [facility] [address] [address] Nov, [facility] [address] [address] Nov, [facility] [address] [address] Nov, [facility] [address] [address] Oct, [facility] [address] [address] Oct, [facility] [id number] [address] Oct, [facility] [id number] [address] Oct, [facility] [place] [facility] [address] [id number] [place] [address] Oct, [facility] [place] [facility] [address] [id number] [place] [address] Oct, [facility] [place] [facility] [address] [id number] [place] [address] Sep, 2014 [facility] [place] [facility] [address] [id number] [place] [address] Sep, 2014 [facility] [place] [facility] [address] [id number] [place] [address] Sep, 2014 [facility] [place] [facility] [address] [id number] [place] [address] Sep, 2014 [facility] [place] [facility] [address] [id number] [place] [address] Sep, [facility] [place] [facility] [address] [id number] [place] [address] Sep, [facility] [place] [facility] [address] [id number] [place] [address] Aug, [facility] [place] [facility] [address] [id number] [place] [address] Aug, [facility] [place] [facility] [address] [id number] [place] [address] Aug, [facility] [place] [facility] [address] [id number] [place] [address] Aug, [facility] [place] [facility] [address] [id number] [place] [address] Aug, [facility] [place] [facility] [address] [id number] [place] [address] Aug, [facility] [place] [facility] [address] [id number] [place] [address] Aug, [facility] [place] [facility] [address] [id number] [place] [address] 14 Aug, 2014 [facility] [place] [facility] [address] [id number] [place] [address] Aug, [facility] [place] [facility] [address] [id number] [place] [address] Aug, [facility] [place] [facility] [address] [id number] [place] [address] Aug, [facility] [place] [facility] [address] [id number] [place] [address] Aug, [facility] [place] [facility] [address] [id number] [place] [address] Aug, [facility] [place] [facility] [address] [id number] [place] [address] Aug, [facility] [place] [facility] [address] [id number] [place] [address] Aug, [facility] [place] [facility] [address] [id number] [place] [address] Aug, [facility] [place] [facility] [address] [id number] [place] [address] Jul, [facility] [place] [facility] [address] [id number] [address] 15 Jul, 2014 [facility] [place] [facility] [address] [id number] [address] 15 Jul, 2014 [facility] [place] [facility] [address] [id number] [place] [address] Jul, [facility] [place] [facility] [address] [id number] [place] [address] Jul, [facility] [place] [facility] [address] [id number] [place] [address] Jul, [facility] [place] [facility] [address] [id number] [place] [address] 11 Jul, 2014 [facility] [place] [facility] [address] [id number] [place] [address] Jul, [facility] [place] [facility] [address] [id number] [place] [address] Jul, [facility] [place] [facility] [address] [id number] [place] [address] 05 Jul, 2014 [facility] [place] [facility] [address] [id number] [place] [address] 05 Jul, 2014 [facility] [place] [facility] [address] [id number] [place] [address] Jul, [facility] [place] [facility] [address] [id number] [place] [address] Jul, [facility] [place] [facility] [address] [id number] [place] [address] Jun, [facility] [place] [facility] [address] [id number] [place] [address] Jun, [facility] [place] [facility] [address] [id number] [place] [address] Jun, [facility] [place] [facility] [address] [facility] [id number] [place] [address] Jun, [facility] [place] [facility] [address] [id number] [place] [address] Jun, [facility] [place] [facility] [address] [id number] [place] [address] Jun, [facility] [place] [facility] [address] [id number] [place] [address] Jun, [facility] [place] [facility] [address] [id number] [place] [address] Jun, [facility] [place] [facility] [address] [id number] [address] Jun, [facility] [place] [facility] [address] [id number] [place] [address] Jun, [facility] [place] [facility] [address] [id number] [place] [address] Jun, [facility] [place] [facility] [address] [id number] [place] [address] Jun, [facility] [place] [facility] [address] [id number] [place] [address] Jun, [facility] [place] [facility] [address] [id number] [place] [address] Jun, [facility] [place] [facility] [address] [id number] [place] [address] May, [facility] [place] [facility] [address] [id number] [place] [address] May, [facility] [place] [facility] [address] [id number] [place] [address] May, [facility] [place] [facility] [address] [id number] [place] [address] May, [facility] [place] [facility] [address] [id number] [place] [address] May, [facility] [place] [facility] [address] [id number] [place] [address] May, [facility] [place] [facility] [address] [id number] [place] [address] May, [facility] [place] [facility] [address] [id number] [place] [address] May, [facility] [place] [facility] [address] [id number] [place] [address] May, [facility] [place] [facility] [address] [id number] [place] [address] May, [facility] [place] [facility] [address] [id number] [place] [address] 30 Sep, 2013 [facility] [place] [facility] [address] [id number] [place] [address] 30 Sep, 2013 [facility] [place] [facility] [address] [id number] [place] [address] 19 Sep, 2013 [facility] [place] [facility] [address] [id number] [place] [address] 19 Sep, 2013 [facility] [place] [facility] [address] [id number] [place] [address] 18 Sep, 2013 [facility] [place] [facility] [address] [id number] [place] [address] 18 Sep, 2013 [facility] [place] [facility] [address] [id number] [place] [address] 18 Sep, 2013 [facility] [place] [facility] [address] [id number] [place] [address] 18 Sep, 2013 [facility] [place] [facility] [address] [id number] [place] [address] 16 Sep, 2013 [facility] [place] [facility] [address] [id number] [place] [address] 16 Sep, 2013 [facility] [place] [facility] [address] [id number] [place] [address] 08 Sep, 2013 [facility] [place] [facility] [address] [id number] [place] [address] 08 Sep, 2013 [facility] [place] [facility] [address] [id number] [place] [address] 08 Sep, 2013 [facility] [place] [facility] [address] [id number] [place] [address] 08 Sep, 2013 [facility] [place] [facility] [address] [id number] [place] [address] 04 Sep, 2013 [facility] [place] [facility] [address] [id number] [place] [address] 04 Sep, 2013 [facility] [place] [facility] [address] [id number] [place] [address] Mar, [facility] [place] [facility] [address] [id number] [place] [address] Mar, [facility] [place] [facility] [address] [id number] [place] [address] Mar, [facility] [place] [facility] [address] [id number] [place] [address] Jan, [facility] [place] [facility] [address] [id number] [place] [address] 23 Jan, 2014 [facility] [place] [facility] [address] [id number] [place] [address] Jan, [facility] [place] [facility] [address] [id number] [place] [address] 18 Jan, 2014 [facility] [place] [facility] [address] [id number] [place] [address] 16 Jan, 2014 [facility] [place] [facility] [address] [id number] [place] [address] 16 Jan, 2014 [facility] [place] [facility] [address] [id number] [place] [address] 16 Jan, 2014 [facility] [place] [facility] [address] [id number] [place] [address] 16 Jan, 2014 [facility] [place] [facility] [address] [id number] [place] [address] Jan, [facility] [place] [facility] [address] [id number] [place] [address] Jan, [facility] [place] [facility] [address] [id number] [place] [address] Jan, [facility] [place] [facility] [address] [id number] [place] [address] 11 Jan, 2014 [facility] [place] [facility] [address] [id number] [place] [address] Jan, [facility] [place] [facility] [address] [id number] [place] [address] Jan, [facility] [place] [facility] [address] [id number] [place] [address] Jan, [facility] [place] [facility] [address] [id number] [place] [address] Jan, [facility] [place] [facility] [address] [id number] [place] [address] December, [facility] [place] [facility] [address] [id number] [place] [address] December, [facility] [place] [facility] [address] [id number] [place] [address] December, [facility] [place] [facility] [address] [id number] [place] [address] December, [facility] [place] [facility] [address] [id number] [place] [address] December, [facility] [place] [facility] [address] [id number] [place] [address] Nov, [facility] [place] [facility] [address] [id number] [place] [address] Nov, [facility] [place] [facility] [address] [id number] [place] [address] Nov, [facility] [place] [facility] [address] [id number] [place] [address] Nov, [facility] [place] [facility] [address] [id number] [place] [address] Nov, [facility] [place] [facility] [address] [id number] [place] [address] Nov, [facility] [place] [facility] [address] [id number] [place] [address] Nov, [facility] [place] [facility] [address] [id number] [address] 24 Nov, 2013 [facility] [place] [facility] [address] [id number] [place] [address] Nov, [facility] [place] [facility] [address] [id number] [place] [address] Nov, [facility] [place] [facility] [address] [facility] [id number] [place] [address] Oct, [facility] [place] [facility] [address] [id number] [place] [address] Oct, [facility] [place] [facility] [address] [id number] [place] [address] Oct, [facility] [place] [facility] [address] [id number] [place] [address] Oct, [facility] [place] [facility] [address] [facility] [id number] [place] [address] Oct, [facility] [place] [facility] [address] [id number] [place] [address] Oct, [facility] [place] [facility] [address] [id number] [place] [address] Oct, [facility] [place] [facility] [address] [facility] [id number] [place] [address] Oct, [facility] [place] [facility] [address] [id number] [place] [address] Oct, [facility] [place] [facility] [address] [id number] [place] [address] Sep, [facility] [place] [facility] [address] [id number] [place] [address] Sep, [facility] [place] [facility] [address] [id number] [place] [address] Sep, [facility] [place] [facility] [address] [facility] [id number] [place] [address] Sep, [facility] [place] [facility] [address] [id number] [place] [address] Sep, [facility] [place] [facility] [address] [id number] [place] [address] Sep, [facility] [place] [facility] [address] [id number] [place] [address] Sep, [facility] [place] [facility] [address] [id number] [place] [address] Aug, [facility] [place] [facility] [address] [id number] [place] [address] Aug, [facility] [place] [facility] [address] [id number] [place] [address] Aug, [facility] [place] [facility] [address] [id number] [place] [address] Aug, [facility] [place] [facility] [address] [id number] [place] [address] Aug, [facility] [place] [facility] [address] [id number] [place] [address] Aug, [facility] [place] [facility] [address] [id number] [place] [address] Aug, [facility] [place] [facility] [address] [id number] [place] [address] Aug, [facility] [place] [facility] [address] [id number], [place] [address] Jul, [facility] [place] [facility] [address] [id number] [place] [address] Jul, [facility] [place] [facility] [address] [id number] [place] [address] Jul, [facility] [place] [facility] [address] [id number], [place] [address] Jul, [facility] [place] [facility] [address] [id number], [place] [address] Jun, [facility] [place] [facility] [address] [id number] [place] [address] Jun, [facility] [place] [facility] [address] [id number] [place] [address] Jun, [facility] [place] [facility] [address] [id number] [place] [address] May, [facility] [place] [facility] [address] [id number] [place] [address] May, [facility] [place] [facility] [address] [id number] [place] [address] May, [facility] [place] [facility] [address] [id number] [place] [address] May, [facility] [place] [facility] [address] [id number] [place] [address] May, [facility] [place] [facility] [address] [id number] [place] [address] May, [facility] [place] [facility] [address] [facility] [id number] [place] [address] May, [facility] [place] [facility] [address] [facility] [id number] [place] [address] Apr, [facility] [place] [facility] [address] [id number], [place] [address] 17 Apr, 2013 [facility] [place] [facility] [address] [id number], [place] [address] 12 Apr, 2013 [facility] [place] [facility] [address] [id number] [place] [address] 11 Apr, 2013 [facility] [place] [facility] [address] [facility] [id number] [place] [address] 05 Apr, 2013 [facility] [place] [facility] [address] [facility] [id number] [place] [address] Mar, [facility] [place] [facility] [address] [id number] [place] [address] Mar, [facility] [place] [facility] [address] [id number] [place] [address] Mar, [facility] [place] [facility] [address] [id number] [place] [address] Mar, [facility] [place] [facility] [address] [id number] [place] [address] Feb, [facility] [place] [facility] [address] [id number] [place] [address] Feb, [facility] [place] [facility] [address] [id number] [place] [address] Feb, [facility] [place] [facility] [address] [id number] [place] [address] Feb, [facility] [place] [facility] [address] [id number] [place] [address] Feb, [facility] [place] [facility] [address] [id number] [place] [address] Feb, [facility] [place] [facility] [address] [id number] [place] [address] Feb, [facility] [place] [facility] [address] [id number] [place] [address] Feb, [facility] [place] [facility] [address] [id number] [place] [address] Jan, [facility] [place] [facility] [address] [id number] [place] [address] Jan, [facility] [place] [facility] [address] [id number] [place] [address] Jan, [facility] [place] [facility] [address] [id number] [place] [address] Jan, [facility] [place] [facility] [address] [id number] [place] [address] Jan, [facility] [address] [id number] [place] [address] Jan, [facility] [place] [facility] [address] [id number] [place] [address] Jan, [facility] [place] [facility] [address] [id number] [place] [address] December, [facility] [place] [facility] [address] [id number] [place] [address] December, [facility] [address] [id number] [place] [address] 30 Nov, 2012 [facility] [place] [facility] [address] [id number] [place] [address] Nov, [facility] [place] [facility] [address] [id number] [place] [address] Nov, [facility] [place] [facility] [address] [id number] [place] [address] Nov, [facility] [place] [facility] [address] [id number] [place] [address] 24 Nov, 2012 [facility] [place] [facility] [address] [id number] [place] [address] Nov, [facility] [place] [facility] [address] [id number] [place] [address] Nov, [facility] [place] [facility] [address] [id number] [address] 15 Nov, 2012 [facility] [place] [facility] [address] [id number] [place] [address] 11 Nov, 2012 [facility] [place] [facility] [address] [id number] [place] [address] 10 Nov, 2012 [facility] [place] [facility] [address] [id number] [place] [address] 08 Nov, 2012 [facility] [place] [facility] [address] [id number] [place] [address] 05 Nov, 2012 [facility] [address] [id number] [place] [address] Nov, [facility] [place] [facility] [address] [id number] [place] [address] Nov, [facility] [address] [id number] [place] [address] Oct, [facility] [place] [facility] [address] [id number] [place] [address] Oct, [facility] [address] [id number] [place] [address] Oct, [facility] [address] [id number] [place] [address] Oct, [facility] [address] [id number] [place] [address] Oct, [facility] [address] [id number] [place] [address] Oct, [facility] [address] [id number] [place] [address] Oct, [facility] [address] [id number] [place] [address] Oct, [facility] [address] [id number] [place] [address] Oct, [facility] [place] [facility] [address] [id number] [place] [address] Sep, [facility] [place] [facility] [address] [id number] [place] [address] Aug, [facility] [place] [facility] [address] [id number] [place] [address] Aug, [facility] [place] [facility] [address] [id number] [place] [address] Aug, [facility] [place] [facility] [address] [id number] [place] [address] Aug, [facility] [place] [facility] [address] [id number] [place] [address] 31 Jul, 2012 [facility] [place] [facility] [address] [id number] [place] [address] 31 Jul, 2012 [facility] [place] [facility] [address] [id number] [place] [address] Jul, [facility] [address] [id number] [place] [address] 19 Jul, 2012 [facility] [place] [facility] [address] [id number] [place] [address] Jul, [facility] [address] [id number] [place] [address] 15 Jul, 2012 [facility] [place] [facility] [address] [id number] [place] [address] 15 Jul, 2012 [facility] [place] [facility] [address] [id number] [place] [address] 14 Jul, 2012 [facility] [place] [facility] [address] [id number] [place] [address] 14 Jul, 2012 [facility] [place] [facility] [address] [id number] [place] [address] May, [facility] [place] [facility] [address] [id number] [place] [address] 22 May, 2012 [facility] [place] [facility] [address] [id number] [place] [address] 16 May, 2012 [facility] [place] [facility] [address] [id number] [place] [address] 16 May, 2012 [facility] [place] [facility] [address] [id number] [place] [address] 12 May, 2012 [facility] [place] [facility] [address] [id number] [place] [address] May, [facility] [place] [facility] [address] [id number] [place] [address] 27 Apr, 2012 [facility] [place] [facility] [address] [id number] [place] [address] 27 Apr, 2012 [facility] [place] [facility] [address] [id number] [place] [address] 24 Apr, 2012 [facility] [place] [facility] [address] [id number] [place] [address] 18 Apr, 2012 [facility] [place] [facility] [address] [id number] [place] [address] 14 Apr, 2012 [facility] [place] [facility] [address] [id number] [place] [address] 12 Apr, 2012 [facility] [place] [facility] [address] [id number] [place] [address] Mar, [facility] [place] [facility] [address] [id number] [place] [address] Feb, [facility] [place] [facility] [address] [id number] [place] [address] Feb, [facility] [place] [facility] [address] [id number] [place] [address] Feb, [facility] [place] [facility] [address] [id number] [place] [address] Jan, [facility] [place] [facility] [address] [id number] [place] [address] December, [facility] [place] [facility] [address] [id number] [place] [address] December, [facility] [place] [facility] [address] [id number] [place] [address] December, [facility] [place] [facility] [address] [id number] [place] [address] December, [facility] [place] [facility] [address] [id number] [place] [address] December, [facility] [address] [id number] [place] [address] December, [facility] [address] [id number] [place] [address] Nov, [facility] [address] [id number] [place] [address] Nov, [facility] [address] [id number] [place] [address] 17 Nov, 2011 [facility] [address] [id number] [place] [id number] Nov, [facility] [address] [id number] [place] [address] 16 Nov, 2011 [facility] [address] [id number] [place] [address] 13 Nov, 2011 [facility] [address] [id number] [place] [address] 12 Nov, 2011 [facility] [address] [id number] [place] [address] Nov, [facility] [address] [id number] [place] [address] 05 Nov, 2011 [facility] [address] [id number] [place] [address] 04 Nov, 2011 [facility] [address] [id number] [place] [address] 30 Oct, 2011 [facility] [place] [facility] [address] [id number] [place] [address] 29 Oct, 2011 [facility] [address] [id number] [place] [address] 28 Oct, 2011 [facility] [address] [id number] [place] [address] Oct, [facility] [place] [facility] [address] [id number] [place] [address] 26 Oct, 2011 [facility] [place] [facility] [address] [id number] [place] [address] 23 Oct, 2011 [facility] [place] [facility] [address] [id number] [place] [address] 21 Oct, 2011 [facility] [place] [facility] [address] [id number] [place] [address] 19 Oct, 2011 [facility] [place] [facility] [address] [id number] [place] [address] 08 Oct, 2011 [facility] [place] [facility] [address] [id number] [place] [address] 07 Oct, 2011 [facility] [place] [facility] [address] [id number] [place] [address] 06 Oct, 2011 [facility] [place] [facility] [address] [id number] [place] [address] 05 Oct, 2011 [facility] [place] [facility] [address] [id number] [place] [address] 16 Sep, 2011 [facility] [place] [facility] [address] [id number] [place] [address] 14 Sep, 2011 [facility] [place] [facility] [address] [id number] [place] [address] 12 Sep, 2011 [facility] [place] [facility] [address] [id number] [place] [address] 10 Sep, 2011 [facility] [place] [facility] [address] [id number] [place] [address] 06 Sep, 2011 [facility] [place] [facility] [address] [id number] [place] [address] 06 Sep, 2011 [facility] [place] [facility] [address] [facility] [id number] [place] [address] 06 Sep, 2011 [facility] [place] [facility] [address] [id number] [place] [address] 06 Sep, 2011 [facility] [address] [id number] [place] [address] Sep, [facility] [address] [id number] [place] [address] 30 Aug, 2011 [facility] [address] [id number] [place] [address] Aug, [facility] [address] [id number] [place] [address] Aug, [facility] [address] [id number] [place] [address] Aug, [facility] [address] [id number] [place] [address] Aug, [facility] [address] [id number] [place] [address] Aug, [facility] [address] [id number] [place] [address] Aug, [facility] [address] [id number] [place] [address] 24 Jul, 2011 [facility] [address] [id number] [place] [address] 16 Jul, 2011 [facility] [address] [id number] [place] [address] 16 Jul, 2011 [facility] [address] [id number] [place] [address] 14 Jul, 2011 [facility] [place] [facility] [address] [id number] [place] [address] 30 Jun, 2011 [facility] [address] [id number] [place] [address] Jun, [facility] [address] [id number] [place] [address] May, [facility] [address] [facility] [id number] [place] [address] Mar, [facility] [address] [facility] [id number] [address] Jan, [facility] [address] [facility] [id number] [place] [address] May, IMMUNIZATIONS No Known Immunizations SOCIAL HISTORY Never Assessed REASON FOR VISIT [facility] PLAN OF CARE VITAL SIGNS MEDICATIONS Unknown [...]
--- OUTSIDE RECORDS SUMMARY | 2019-03-23 07:12 | XMS REPORT ---
Author Author Migration, Doctor Organization [facility] Address Unknown Phone Unavailable Care Team Providers Care Social Work Case Manager Name Role Phone Migration, Doctor Unavailable Unavailable PROBLEMS Type Condition ICD9-CM Code [id number] Code Onset Dates Condition Status SNOMED Code Problem Other postablative hypothyroidism 244.1 Active [id number] Problem Major depressive disorder, recurrent episode, severe, without mention of psychotic behavior 296.33 Active [id number] ALLERGIES No Information ENCOUNTERS Encounter Location Date Diagnosis [place] [id number] [place] [address] Sep, Unspecified mood [affective] disorder [place] [id number] [place] [address] Aug, Unspecified mood [affective] disorder [place] [id number] [place] [address] Jul, Unspecified mood [affective] disorder 9 [place] [id number] [place] [address] Jun, Unspecified mood [affective] disorder [place] [id number] [place] [address] Mar, Affective disorder 296.90 [place] [id number] [place] [address] Mar, [place] [id number] [place] [address] Feb, Nexplanon removal V25.43 and Initiation of OCP (BCP) V25.01 [place] [id number] [place] [address] Feb, Episodic mood disorder 296.90 [place] [id number] [place] [address] [place] [address] Feb, [facility] [address], [place] [address] Feb, Routine gynecological examination V72.31 ; Pap test, as part of routine gynecological examination V76.2 ; Breast cancer screening V76.10 ; Nexplanon in place V45.[address] [facility] [address], [place] [address] Jan, Episodic mood disorder 296.90 [facility] [address], [place] [address] Jan, [facility] [address], [place] [address] December, Episodic mood disorder 296.90 [facility] [address], [place] [address] December, [facility] [address] [address] December, [facility] [address] [address] December, [facility] [address] [address] Nov, [facility] [address] [address] Nov, [facility] [address] [address] Nov, [facility] [address] [address] Oct, [facility] [address] [address] Oct, [facility] [id number] [address] Oct, [facility] [id number] [place] [address] Oct, [facility] [place] [facility] [address] [id number] [place] [address] Oct, [facility] [place] [facility] [address] [id number] [place] [address] Oct, [facility] [place] [facility] [address] [id number] [place] [address] Sep, 2014 [facility] [place] [facility] [address] [id number] [place] [address] Sep, 2014 [facility] [place] [facility] [address] [id number] [place] [address] Sep, 2014 [facility] [place] [facility] [address] [id number] [place] [address] Sep, 2014 [facility] [place] [facility] [address] [id number] [place] [address] Sep, [facility] [place] [facility] [address] [id number] [place] [address] Sep, [facility] [place] [facility] [address] [id number] [place] [address] Aug, [facility] [place] [facility] [address] [id number] [place] [address] Aug, [facility] [place] [facility] [address] [id number] [place] [address] Aug, [facility] [place] [facility] [address] [id number] [place] [address] Aug, [facility] [place] [facility] [address] [id number] [place] [address] Aug, [facility] [place] [facility] [address] [id number] [place] [address] Aug, [facility] [place] [facility] [address] [id number] [place] [address] Aug, [facility] [place] [facility] [address] [id number] [place] [address] 14 Aug, 2014 [facility] [place] [facility] [address] [id number] [place] [address] Aug, [facility] [place] [facility] [address] [id number] [place] [address] Aug, [facility] [place] [facility] [address] [id number] [place] [address] Aug, [facility] [place] [facility] [address] [id number] [place] [address] Aug, [facility] [place] [facility] [address] [id number] [place] [address] Aug, [facility] [place] [facility] [address] [id number] [place] [address] Aug, [facility] [place] [facility] [address] [id number] [place] [address] Aug, [facility] [place] [facility] [address] [id number] [place] [address] Aug, [facility] [place] [facility] [address] [id number] [place] [address] Jul, [facility] [place] [facility] [address] [id number], [place] [address] 15 Jul, 2014 [facility] [place] [facility] [address] [id number] [address] 15 Jul, 2014 [facility] [place] [facility] [address] [id number] [place] [address] Jul, [facility] [place] [facility] [address] [id number] [place] [address] Jul, [facility] [place] [facility] [address] [id number] [place] [address] Jul, [facility] [place] [facility] [address] [id number] [place] [address] 11 Jul, 2014 [facility] [place] [facility] [address] [id number] [place] [address] Jul, [facility] [place] [facility] [address] [id number] [place] [address] Jul, [facility] [place] [facility] [address] [id number] [place] [address] 05 Jul, 2014 [facility] [place] [facility] [address] [id number] [place] [address] 05 Jul, 2014 [facility] [place] [facility] [address] [id number] [place] [address] Jul, [facility] [place] [facility] [address] [id number] [place] [address] Jul, [facility] [place] [facility] [address] [id number] [place] [address] Jun, [facility] [place] [facility] [address] [id number] [place] [address] Jun, [facility] [place] [facility] [address] [id number] [place] [address] Jun, [facility] [place] [facility] [address] [facility] [id number] [place] [address] Jun, [facility] [place] [facility] [address] [id number] [place] [address] Jun, [facility] [place] [facility] [address] [id number] [place] [address] Jun, [facility] [place] [facility] [address] [id number] [place] [address] Jun, [facility] [place] [facility] [address] [id number] [place] [address] Jun, [facility] [place] [facility] [address] [id number], [place] [address] Jun, [facility] [place] [facility] [address] [id number] [place] [address] Jun, [facility] [place] [facility] [address] [id number] [place] [address] Jun, [facility] [place] [facility] [address] [id number] [place] [address] Jun, [facility] [place] [facility] [address] [id number] [place] [address] Jun, [facility] [place] [facility] [address] [id number] [place] [address] Jun, [facility] [place] [facility] [address] [id number] [place] [address] May, [facility] [place] [facility] [address] [id number] [place] [address] May, [facility] [place] [facility] [address] [id number] [place] [address] May, [facility] [place] [facility] [address] [id number] [place] [address] May, [facility] [place] [facility] [address] [id number] [place] [address] May, [facility] [place] [facility] [address] [id number] [place] [address] May, [facility] [place] [facility] [address] [id number] [place] [address] May, [facility] [place] [facility] [address] [id number] [place] [address] May, [facility] [place] [facility] [address] [id number] [place] [address] May, [facility] [place] [facility] [address] [id number] [place] [address] May, [facility] [place] [facility] [address] [id number] [place] [address] 30 Sep, 2013 [facility] [place] [facility] [address] [id number] [place] [address] 30 Sep, 2013 [facility] [place] [facility] [address] [id number] [place] [address] 19 Sep, 2013 [facility] [place] [facility] [address] [id number] [place] [address] 19 Sep, 2013 [facility] [place] [facility] [address] [id number] [place] [address] 18 Sep, 2013 [facility] [place] [facility] [address] [id number] [place] [address] 18 Sep, 2013 [facility] [place] [facility] [address] [id number] [place] [address] 18 Sep, 2013 [facility] [place] [facility] [address] [id number] [place] [address] 18 Sep, 2013 [facility] [place] [facility] [address] [id number] [place] [address] 16 Sep, 2013 [facility] [place] [facility] [address] [id number] [place] [address] 16 Sep, 2013 [facility] [place] [facility] [address] [id number] [place] [address] 08 Sep, 2013 [facility] [place] [facility] [address] [id number] [place] [address] 08 Sep, 2013 [facility] [place] [facility] [address] [id number] [place] [address] 08 Sep, 2013 [facility] [place] [facility] [address] [id number] [place] [address] 08 Sep, 2013 [facility] [place] [facility] [address] [id number] [place] [address] 04 Sep, 2013 [facility] [place] [facility] [address] [id number] [place] [address] 04 Sep, 2013 [facility] [place] [facility] [address] [id number] [place] [address] Mar, [facility] [place] [facility] [address] [id number] [place] [address] Mar, [facility] [place] [facility] [address] [id number] [place] [address] Mar, [facility] [place] [facility] [address] [id number] [place] [address] Jan, [facility] [place] [facility] [address] [id number] [place] [address] 23 Jan, 2014 [facility] [place] [facility] [address] [id number] [place] [address] Jan, [facility] [place] [facility] [address] [id number] [place] [address] 18 Jan, 2014 [facility] [place] [facility] [address] [id number] [place] [address] 16 Jan, 2014 [facility] [place] [facility] [address] [id number] [place] [address] 16 Jan, 2014 [facility] [place] [facility] [address] [id number] [place] [address] 16 Jan, 2014 [facility] [place] [facility] [address] [id number] [place] [address] 16 Jan, 2014 [facility] [place] [facility] [address] [id number] [place] [address] Jan, [facility] [place] [facility] [address] [id number] [place] [address] Jan, [facility] [place] [facility] [address] [id number] [place] [address] Jan, [facility] [place] [facility] [address] [id number] [place] [address] 11 Jan, 2014 [facility] [place] [facility] [address] [id number] [place] [address] Jan, [facility] [place] [facility] [address] [id number] [place] [address] Jan, [facility] [place] [facility] [address] [id number] [place] [address] Jan, [facility] [place] [facility] [address] [id number] [place] [address] Jan, [facility] [place] [facility] [address] [id number] [place] [address] December, [facility] [place] [facility] [address] [id number] [place] [address] December, [facility] [place] [facility] [address] [id number] [place] [address] December, [facility] [place] [facility] [address] [id number] [place] [address] December, [facility] [place] [facility] [address] [id number] [place] [address] December, [facility] [place] [facility] [address] [id number] [place] [address] Nov, [facility] [place] [facility] [address] [id number] [place] [address] Nov, [facility] [place] [facility] [address] [id number] [place] [address] Nov, [facility] [place] [facility] [address] [id number] [place] [address] Nov, [facility] [place] [facility] [address] [id number] [place] [address] Nov, [facility] [place] [facility] [address] [id number] [place] [address] Nov, [facility] [place] [facility] [address] [id number] [place] [address] Nov, [facility] [place] [facility] [address] [id number], [place] [address] 24 Nov, 2013 [facility] [place] [facility] [address] [id number] [place] [address] Nov, [facility] [place] [facility] [address] [id number] [place] [address] Nov, [facility] [place] [facility] [address] [facility] [id number] [place] [address] Oct, [facility] [place] [facility] [address] [id number] [place] [address] Oct, [facility] [place] [facility] [address] [id number] [place] [address] Oct, [facility] [place] [facility] [address] [id number] [place] [address] Oct, [facility] [place] [facility] [address] [facility] [id number] [place] [address] Oct, [facility] [place] [facility] [address] [id number] [place] [address] Oct, [facility] [place] [facility] [address] [id number] [place] [address] Oct, [facility] [place] [facility] [address] [facility] [id number] [place] [address] Oct, [facility] [place] [facility] [address] [id number] [place] [address] Oct, [facility] [place] [facility] [address] [id number] [place] [address] Sep, [facility] [place] [facility] [address] [id number] [place] [address] Sep, [facility] [place] [facility] [address] [id number] [place] [address] Sep, [facility] [place] [facility] [address] [facility] [id number] [place] [address] Sep, [facility] [place] [facility] [address] [id number] [place] [address] Sep, [facility] [place] [facility] [address] [id number] [place] [address] Sep, [facility] [place] [facility] [address] [id number] [place] [address] Sep, [facility] [place] [facility] [address] [id number] [place] [address] Aug, [facility] [place] [facility] [address] [id number] [place] [address] Aug, [facility] [place] [facility] [address] [id number] [place] [address] Aug, [facility] [place] [facility] [address] [id number] [place] [address] Aug, [facility] [place] [facility] [address] [id number] [place] [address] Aug, [facility] [place] [facility] [address] [id number] [place] [address] Aug, [facility] [place] [facility] [address] [id number] [place] [address] Aug, [facility] [place] [facility] [address] [id number] [place] [address] Aug, [facility] [place] [facility] [address] [id number], [place] [address] Jul, [facility] [place] [facility] [address] [id number] [place] [address] Jul, [facility] [place] [facility] [address] [id number] [place] [address] Jul, [facility] [place] [facility] [address] [id number], [place] [address] Jul, [facility] [place] [facility] [address] [id number], [place] [address] Jun, [facility] [place] [facility] [address] [id number] [place] [address] Jun, [facility] [place] [facility] [address] [id number] [place] [address] Jun, [facility] [place] [facility] [address] [id number] [place] [address] May, [facility] [place] [facility] [address] [id number] [place] [address] May, [facility] [place] [facility] [address] [id number] [place] [address] May, [facility] [place] [facility] [address] [id number] [place] [address] May, [facility] [place] [facility] [address] [id number] [place] [address] May, [facility] [place] [facility] [address] [id number] [place] [address] May, [facility] [place] [facility] [address] [facility] [id number] [place] [address] May, [facility] [place] [facility] [address] [facility] [id number] [place] [address] Apr, [facility] [place] [facility] [address] [id number], [place] [address] 17 Apr, 2013 [facility] [place] [facility] [address] [id number], [place] [address] 12 Apr, 2013 [facility] [place] [facility] [address] [id number] [place] [address] 11 Apr, 2013 [facility] [place] [facility] [address] [facility] [id number] [place] [address] 05 Apr, 2013 [facility] [place] [facility] [address] [facility] [id number] [place] [address] Mar, [facility] [place] [facility] [address] [id number] [place] [address] Mar, [facility] [place] [facility] [address] [id number] [place] [address] Mar, [facility] [place] [facility] [address] [id number] [place] [address] Mar, [facility] [place] [facility] [address] [id number] [place] [address] Feb, [facility] [place] [facility] [address] [id number] [place] [address] Feb, [facility] [place] [facility] [address] [id number] [place] [address] Feb, [facility] [place] [facility] [address] [id number] [place] [address] Feb, [facility] [place] [facility] [address] [id number] [place] [address] Feb, [facility] [place] [facility] [address] [id number] [place] [address] Feb, [facility] [place] [facility] [address] [id number] [place] [address] Feb, [facility] [place] [facility] [address] [id number] [place] [address] Feb, [facility] [place] [facility] [address] [id number] [place] [address] Jan, [facility] [place] [facility] [address] [id number] [place] [address] Jan, [facility] [place] [facility] [address] [id number] [place] [address] Jan, [facility] [place] [facility] [address] [id number] [place] [address] Jan, [facility] [place] [facility] [address] [id number] [place] [address] Jan, [facility] [address] [id number] [place] [address] Jan, [facility] [place] [facility] [address] [id number] [place] [address] Jan, [facility] [place] [facility] [address] [id number] [place] [address] December, [facility] [place] [facility] [address] [id number] [place] [address] December, [facility] [address] [id number] [place] [address] 30 Nov, 2012 [facility] [place] [facility] [address] [id number] [place] [address] Nov, [facility] [place] [facility] [address] [id number] [place] [address] Nov, [facility] [place] [facility] [address] [id number] [place] [address] Nov, [facility] [place] [facility] [address] [id number] [place] [address] 24 Nov, 2012 [facility] [place] [facility] [address] [id number] [place] [address] Nov, [facility] [place] [facility] [address] [id number] [place] [address] Nov, [facility] [place] [facility] [address] [id number], [place] [address] 15 Nov, 2012 [facility] [place] [facility] [address] [id number] [place] [address] 11 Nov, 2012 [facility] [place] [facility] [address] [id number] [place] [address] 10 Nov, 2012 [facility] [place] [facility] [address] [id number] [place] [address] 08 Nov, 2012 [facility] [place] [facility] [address] [id number] [place] [address] 05 Nov, 2012 [facility] [address] [id number] [place] [address] Nov, [facility] [place] [facility] [address] [id number] [place] [address] Nov, [facility] [address] [id number] [place] [address] Oct, [facility] [place] [facility] [address] [id number] [place] [address] Oct, [facility] [address] [id number] [place] [address] Oct, [facility] [address] [id number] [place] [address] Oct, [facility] [address] [id number] [place] [address] Oct, [facility] [address] [id number] [place] [address] Oct, [facility] [address] [id number] [place] [address] Oct, [facility] [address] [id number] [place] [address] Oct, [facility] [address] [id number] [place] [address] Oct, [facility] [place] [facility] [address] [id number] [place] [address] Sep, [facility] [place] [facility] [address] [id number] [place] [address] Aug, [facility] [place] [facility] [address] [id number] [place] [address] Aug, [facility] [place] [facility] [address] [id number] [place] [address] Aug, [facility] [place] [facility] [address] [id number] [place] [address] Aug, [facility] [place] [facility] [address] [id number] [place] [address] 31 Jul, 2012 [facility] [place] [facility] [address] [id number] [place] [address] 31 Jul, 2012 [facility] [place] [facility] [address] [id number] [place] [address] Jul, [facility] [address] [id number] [place] [address] 19 Jul, 2012 [facility] [place] [facility] [address] [id number] [place] [address] Jul, [facility] [address] [id number] [place] [address] 15 Jul, 2012 [facility] [place] [facility] [address] [id number] [place] [address] 15 Jul, 2012 [facility] [place] [facility] [address] [id number] [place] [address] 14 Jul, 2012 [facility] [place] [facility] [address] [id number] [place] [address] 14 Jul, 2012 [facility] [place] [facility] [address] [id number] [place] [address] May, [facility] [place] [facility] [address] [id number] [place] [address] 22 May, 2012 [facility] [place] [facility] [address] [id number] [place] [address] 16 May, 2012 [facility] [place] [facility] [address] [id number] [place] [address] 16 May, 2012 [facility] [place] [facility] [address] [id number] [place] [address] 12 May, 2012 [facility] [place] [facility] [address] [id number] [place] [address] May, [facility] [place] [facility] [address] [id number] [place] [address] 27 Apr, 2012 [facility] [place] [facility] [address] [id number] [place] [address] 27 Apr, 2012 [facility] [place] [facility] [address] [id number] [place] [address] 24 Apr, 2012 [facility] [place] [facility] [address] [id number] [place] [address] 18 Apr, 2012 [facility] [place] [facility] [address] [id number] [place] [address] 14 Apr, 2012 [facility] [place] [facility] [address] [id number] [place] [address] 12 Apr, 2012 [facility] [place] [facility] [address] [id number] [place] [address] Mar, [facility] [place] [facility] [address] [id number] [place] [address] Feb, [facility] [place] [facility] [address] [id number] [place] [address] Feb, [facility] [place] [facility] [address] [id number] [place] [address] Feb, [facility] [place] [facility] [address] [id number] [place] [address] Jan, [facility] [place] [facility] [address] [id number] [place] [address] December, [facility] [place] [facility] [address] [id number] [place] [address] December, [facility] [place] [facility] [address] [id number] [place] [address] December, [facility] [place] [facility] [address] [id number] [place] [address] December, [facility] [place] [facility] [address] [id number] [place] [address] December, [facility] [address] [id number] [place] [address] December, [facility] [address] [id number] [place] [address] Nov, [facility] [address] [id number] [place] [address] Nov, [facility] [address] [id number] [place] [address] 17 Nov, 2011 [facility] [address] [id number] [place] [address] Nov, [facility] [address] [id number] [place] [address] 16 Nov, 2011 [facility] [address] [id number] [place] [address] 13 Nov, 2011 [facility] [address] [id number] [place] [address] 12 Nov, 2011 [facility] [address] [id number] [place] [address] Nov, [facility] [address] [id number] [place] [address] 05 Nov, 2011 [facility] [address] [id number] [place] [address] 04 Nov, 2011 [facility] [address] [id number] [place] [address] 30 Oct, 2011 [facility] [place] [facility] [address] [id number] [place] [address] 29 Oct, 2011 [facility] [address] [id number] [place] [address] 28 Oct, 2011 [facility] [address] [id number] [place] [address] Oct, [facility] [place] [facility] [address] [id number] [place] [address] 26 Oct, 2011 [facility] [place] [facility] [address] [id number] [place] [address] 23 Oct, 2011 [facility] [place] [facility] [address] [id number] [place] [address] 21 Oct, 2011 [facility] [place] [facility] [address] [id number] [place] [address] 19 Oct, 2011 [facility] [place] [facility] [address] [id number] [place] [address] 08 Oct, 2011 [facility] [place] [facility] [address] [id number] [place] [address] 07 Oct, 2011 [facility] [place] [facility] [address] [id number] [place] [address] 06 Oct, 2011 [facility] [place] [facility] [address] [id number] [place] [address] 05 Oct, 2011 [facility] [place] [facility] [address] [id number] [place] [address] 16 Sep, 2011 [facility] [place] [facility] [address] [id number] [place] [address] 14 Sep, 2011 [facility] [place] [facility] [address] [id number] [place] [address] 12 Sep, 2011 [facility] [place] [facility] [address] [id number] [place] [address] 10 Sep, 2011 [facility] [place] [facility] [address] [id number] [place] [address] 06 Sep, 2011 [facility] [place] [facility] [address] [id number] [place] [address] 06 Sep, 2011 [facility] [place] [facility] [address] [facility] [id number] [place] [address] 06 Sep, 2011 [facility] [place] [facility] [address] [id number] [place] [address] 06 Sep, 2011 [facility] [address] [id number] [place] [address] Sep, [facility] [address] [id number] [place] [address] 30 Aug, 2011 [facility] [address] [id number] [place] [address] Aug, [facility] [address] [id number] [place] [address] Aug, [facility] [address] [id number] [place] [address] Aug, [facility] [address] [id number] [place] [address] Aug, [facility] [address] [id number] [place] [address] Aug, [facility] [address] [id number] [place] [address] Aug, [facility] [address] [id number] [place] [address] 24 Jul, 2011 [facility] [address] [id number] [place] [address] 16 Jul, 2011 [facility] [address] [id number] [place] [address] 16 Jul, 2011 [facility] [address] [id number] [place] [address] 14 Jul, 2011 [facility] [place] [facility] [address] [id number] [place] [address] 30 Jun, 2011 [facility] [address] [id number] [place] [address] Jun, [facility] [address] [id number] [place] [address] May, [facility] [address] [facility] [id number] [place] [address] Mar, [facility] [address] [facility] [id number] [address] Jan, [facility] [address] [facility] [id number] [place] [address] May, IMMUNIZATIONS No Known Immunizations SOCIAL HISTORY Never Assessed REASON FOR VISIT [facility] PLAN OF CARE VITAL SIGNS MEDICATIONS Unknown [...]
--- OUTSIDE RECORDS SUMMARY | 2019-03-23 07:12 | XMS REPORT ---
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 Name Role Phone Migration, Doctor Unavailable Unavailable PROBLEMS Type Condition ICD9-CM Code QSI06-HE Code Onset Dates Condition Status SNOMED Code Problem Other postablative hypothyroidism 244.1 Active 036426891 Problem Major depressive disorder, recurrent episode, severe, without mention of psychotic behavior 296.33 Active 12469070 ALLERGIES No Information ENCOUNTERS Encounter Location Date Diagnosis [place] [id number] [place] [address] Sep, Unspecified mood [affective] disorder [place] [id number] [place] [address] Aug, Unspecified mood [affective] disorder [place] [id number] [place] [address] Jul, Unspecified mood [affective] disorder [address] [place] [id number] [place] [address] Jun, Unspecified mood [affective] disorder [place] [id number] [place] [address] Mar, Affective disorder 296.90 [place] [id number] [place] [address] Mar, [place] [id number] [place] [address] Feb, Nexplanon removal V25.43 and Initiation of OCP (BCP) V25.01 [place] [id number] [place] [address] Feb, Episodic mood disorder 296.90 [place] [id number] [place] [address] [place] [address] Feb, [facility] [address], [place] [address] Feb, Routine gynecological examination V72.31 ; Pap test, as part of routine gynecological examination V76.2 ; Breast cancer screening V76.10 ; Nexplanon in place V45.52 and Rash 782.1 [facility] [address], [place] [address] Jan, Episodic mood disorder 296.90 [facility] [address], [place] [address] Jan, [facility] [address], [place] [address] December, Episodic mood disorder 296.90 [facility] [address], [place] [address] December, [facility] [address], [place] [address] December, [facility] [address], [place] [address] December, [facility] [address], [place] [address] Nov, [facility] [address], [place] [address] Nov, [facility] [address], [place] [address] Nov, [facility] [address], [place] [address] Oct, [facility] [address], [place] [address] Oct, [facility] [id number] [address] Oct, [facility] [id number] [place] [address] Oct, [facility] [place] [facility] [address] [id number] [place] [address] Oct, [facility] [place] [facility] [address] [id number] [place] [address] Oct, [facility] [place] [facility] [address] [id number] [place] [address] Sep, 2014 [facility] [place] [facility] [address] [id number] [place] [address] Sep, 2014 [facility] [place] [facility] [address] [id number] [place] [address] Sep, 2014 [facility] [place] [facility] [address] [id number] [place] [address] Sep, 2014 [facility] [place] [facility] [address] [id number] [place] [address] Sep, [facility] [place] [facility] [address] [id number] [place] [address] Sep, [facility] [place] [facility] [address] [id number] [place] [address] Aug, [facility] [place] [facility] [address] [id number] [place] [address] Aug, [facility] [place] [facility] [address] [id number] [place] [address] Aug, [facility] [place] [facility] [address] [id number] [place] [address] Aug, [facility] [place] [facility] [address] [id number] [place] [address] Aug, [facility] [place] [facility] [address] [id number] [place] [address] Aug, [facility] [place] [facility] [address] [id number] [place] [address] Aug, [facility] [place] [facility] [address] [id number] [place] [address] 14 Aug, 2014 [facility] [place] [facility] [address] [id number] [place] [address] Aug, [facility] [place] [facility] [address] [id number] [place] [address] Aug, [facility] [place] [facility] [address] [id number] [place] [address] Aug, [facility] [place] [facility] [address] [id number] [place] [address] Aug, [facility] [place] [facility] [address] [id number] [place] [address] Aug, [facility] [place] [facility] [address] [id number] [place] [address] Aug, [facility] [place] [facility] [address] [id number] [place] [address] Aug, [facility] [place] [facility] [address] [id number] [place] [address] Aug, [facility] [place] [facility] [address] [id number] [place] [address] Jul, [facility] [place] [facility] [address] [id number] [address] 15 Jul, 2014 [facility] [place] [facility] [address] [id number], [place] [address] 15 Jul, 2014 [facility] [place] [facility] [address] [id number] [place] [address] Jul, [facility] [place] [facility] [address] [id number] [place] [address] Jul, [facility] [place] [facility] [address] [id number] [place] [address] Jul, [facility] [place] [facility] [address] [id number] [place] [address] 11 Jul, 2014 [facility] [place] [facility] [address] [id number] [place] [address] Jul, [facility] [place] [facility] [address] [id number] [place] [address] Jul, [facility] [place] [facility] [address] [id number] [place] [address] 05 Jul, 2014 [facility] [place] [facility] [address] [id number] [place] [address] 05 Jul, 2014 [facility] [place] [facility] [address] [id number] [place] [address] Jul, [facility] [place] [facility] [address] [id number] [place] [address] Jul, [facility] [place] [facility] [address] [id number] [place] [address] Jun, [facility] [place] [facility] [address] [id number] [place] [address] Jun, [facility] [place] [facility] [address] [id number] [place] [address] Jun, [facility] [place] [facility] [address] [facility] [id number] [place] [address] Jun, [facility] [place] [facility] [address] [id number] [place] [address] Jun, [facility] [place] [facility] [address] [id number] [place] [address] Jun, [facility] [place] [facility] [address] [id number] [place] [address] Jun, [facility] [place] [facility] [address] [id number] [place] [address] Jun, [facility] [place] [facility] [address] [id number], [place] [address] Jun, [facility] [place] [facility] [address] [id number] [place] [address] Jun, [facility] [place] [facility] [address] [id number] [place] [address] Jun, [facility] [place] [facility] [address] [id number] [place] [address] Jun, [facility] [place] [facility] [address] [id number] [place] [address] Jun, [facility] [place] [facility] [address] [id number] [place] [address] Jun, [facility] [place] [facility] [address] [id number] [place] [address] May, [facility] [place] [facility] [address] [id number] [place] [address] May, [facility] [place] [facility] [address] [id number] [place] [address] May, [facility] [place] [facility] [address] [id number] [place] [address] May, [facility] [place] [facility] [address] [id number] [place] [address] May, [facility] [place] [facility] [address] [id number] [place] [address] May, [facility] [place] [facility] [address] [id number] [place] [address] May, [facility] [place] [facility] [address] [id number] [place] [address] May, [facility] [place] [facility] [address] [id number] [place] [address] May, [facility] [place] [facility] [address] [id number] [place] [address] May, [facility] [place] [facility] [address] [id number] [place] [address] 30 Sep, 2013 [facility] [place] [facility] [address] [id number] [place] [address] 30 Sep, 2013 [facility] [place] [facility] [address] [id number] [place] [address] 19 Sep, 2013 [facility] [place] [facility] [address] [id number] [place] [address] 19 Sep, 2013 [facility] [place] [facility] [address] [id number] [place] [address] 18 Sep, 2013 [facility] [place] [facility] [address] [id number] [place] [address] 18 Sep, 2013 [facility] [place] [facility] [address] [id number] [place] [address] 18 Sep, 2013 [facility] [place] [facility] [address] [id number] [place] [address] 18 Sep, 2013 [facility] [place] [facility] [address] [id number] [place] [address] 16 Sep, 2013 [facility] [place] [facility] [address] [id number] [place] [address] 16 Sep, 2013 [facility] [place] [facility] [address] [id number] [place] [address] 08 Sep, 2013 [facility] [place] [facility] [address] [id number] [place] [address] 08 Sep, 2013 [facility] [place] [facility] [address] [id number] [place] [address] 08 Sep, 2013 [facility] [place] [facility] [address] [id number] [place] [address] 08 Sep, 2013 [facility] [place] [facility] [address] [id number] [place] [address] 04 Sep, 2013 [facility] [place] [facility] [address] [id number] [place] [address] 04 Sep, 2013 [facility] [place] [facility] [address] [id number] [place] [address] Mar, [facility] [place] [facility] [address] [id number] [place] [address] Mar, [facility] [place] [facility] [address] [id number] [place] [address] Mar, [facility] [place] [facility] [address] [id number] [place] [address] Jan, [facility] [place] [facility] [address] [id number] [place] [address] 23 Jan, 2014 [facility] [place] [facility] [address] [id number] [place] [address] Jan, [facility] [place] [facility] [address] [id number] [place] [address] 18 Jan, 2014 [facility] [place] [facility] [address] [id number] [place] [address] 16 Jan, 2014 [facility] [place] [facility] [address] [id number] [place] [address] 16 Jan, 2014 [facility] [place] [facility] [address] [id number] [place] [address] 16 Jan, 2014 [facility] [place] [facility] [address] [id number] [place] [address] 16 Jan, 2014 [facility] [place] [facility] [address] [id number] [place] [address] Jan, [facility] [place] [facility] [address] [id number] [place] [address] Jan, [facility] [place] [facility] [address] [id number] [place] [address] Jan, [facility] [place] [facility] [address] [id number] [place] [address] 11 Jan, 2014 [facility] [place] [facility] [address] [id number] [place] [address] Jan, [facility] [place] [facility] [address] [id number] [place] [address] Jan, [facility] [place] [facility] [address] [id number] [place] [address] Jan, [facility] [place] [facility] [address] [id number] [place] [address] Jan, [facility] [place] [facility] [address] [id number] [place] [address] December, [facility] [place] [facility] [address] [id number] [place] [address] December, [facility] [place] [facility] [address] [id number] [place] [address] December, [facility] [place] [facility] [address] [id number] [place] [address] December, [facility] [place] [facility] [address] [id number] [place] [address] December, [facility] [place] [facility] [address] [id number] [place] [address] Nov, [facility] [place] [facility] [address] [id number] [place] [address] Nov, [facility] [place] [facility] [address] [id number] [place] [address] Nov, [facility] [place] [facility] [address] [id number] [place] [address] Nov, [facility] [place] [facility] [address] [id number] [place] [address] Nov, [facility] [place] [facility] [address] [id number] [place] [address] Nov, [facility] [place] [facility] [address] [id number] [place] [address] Nov, [facility] [place] [facility] [address] [id number], [place] [address] 24 Nov, 2013 [facility] [place] [facility] [address] [id number] [place] [address] Nov, [facility] [place] [facility] [address] [id number] [place] [address] Nov, [facility] [place] [facility] [address] [facility] [id number] [place] [address] Oct, [facility] [place] [facility] [address] [id number] [place] [address] Oct, [facility] [place] [facility] [address] [id number] [place] [address] Oct, [facility] [place] [facility] [address] [id number] [place] [address] Oct, [facility] [place] [facility] [address] [facility] [id number] [place] [address] Oct, [facility] [place] [facility] [address] [id number] [place] [address] Oct, [facility] [place] [facility] [address] [id number] [place] [address] Oct, [facility] [place] [facility] [address] [facility] [id number] [place] [address] Oct, [facility] [place] [facility] [address] [id number] [place] [address] Oct, [facility] [place] [facility] [address] [id number] [place] [address] Sep, [facility] [place] [facility] [address] [id number] [place] [address] Sep, [facility] [place] [facility] [address] [id number] [place] [address] Sep, [facility] [place] [facility] [address] [facility] [id number] [place] [address] Sep, [facility] [place] [facility] [address] [id number] [place] [address] Sep, [facility] [place] [facility] [address] [id number] [place] [address] Sep, [facility] [place] [facility] [address] [id number] [place] [address] Sep, [facility] [place] [facility] [address] [id number] [place] [address] Aug, [facility] [place] [facility] [address] [id number] [place] [address] Aug, [facility] [place] [facility] [address] [id number] [place] [address] Aug, [facility] [place] [facility] [address] [id number] [place] [address] Aug, [facility] [place] [facility] [address] [id number] [place] [address] Aug, [facility] [place] [facility] [address] [id number] [place] [address] Aug, [facility] [place] [facility] [address] [id number] [place] [address] Aug, [facility] [place] [facility] [address] [id number] [place] [address] Aug, [facility] [place] [facility] [address] [id number], [place] [address] Jul, [facility] [place] [facility] [address] [id number] [place] [address] Jul, [facility] [place] [facility] [address] [id number] [place] [address] Jul, [facility] [place] [facility] [address] [id number], [place] [address] Jul, [facility] [place] [facility] [address] [id number], [place] [address] Jun, [facility] [place] [facility] [address] [id number] [place] [address] Jun, [facility] [place] [facility] [address] [id number] [place] [address] Jun, [facility] [place] [facility] [address] [id number] [place] [address] May, [facility] [place] [facility] [address] [id number] [place] [address] May, [facility] [place] [facility] [address] [id number] [place] [address] May, [facility] [place] [facility] [address] [id number] [place] [address] May, [facility] [place] [facility] [address] [id number] [place] [address] May, [facility] [place] [facility] [address] [id number] [place] [address] May, [facility] [place] [facility] [address] [facility] [id number] [place] [address] May, [facility] [place] [facility] [address] [facility] [id number] [place] [address] Apr, [facility] [place] [facility] [address] [id number], [place] [address] 17 Apr, 2013 [facility] [place] [facility] [address] [id number], [place] [address] 12 Apr, 2013 [facility] [place] [facility] [address] [id number] [place] [address] 11 Apr, 2013 [facility] [place] [facility] [address] [facility] [id number] [place] [address] 05 Apr, 2013 [facility] [place] [facility] [address] [facility] [id number] [place] [address] Mar, [facility] [place] [facility] [address] [id number] [place] [address] Mar, [facility] [place] [facility] [address] [id number] [place] [address] Mar, [facility] [place] [facility] [address] [id number] [place] [address] Mar, [facility] [place] [facility] [address] [id number] [place] [address] Feb, [facility] [place] [facility] [address] [id number] [place] [address] Feb, [facility] [place] [facility] [address] [id number] [place] [address] Feb, [facility] [place] [facility] [address] [id number] [place] [address] Feb, [facility] [place] [facility] [address] [id number] [place] [address] Feb, [facility] [place] [facility] [address] [id number] [place] [address] Feb, [facility] [place] [facility] [address] [id number] [place] [address] Feb, [facility] [place] [facility] [address] [id number] [place] [address] Feb, [facility] [place] [facility] [address] [id number] [place] [address] Jan, [facility] [place] [facility] [address] [id number] [place] [address] Jan, [facility] [place] [facility] [address] [id number] [place] [address] Jan, [facility] [place] [facility] [address] [id number] [place] [address] Jan, [facility] [place] [facility] [address] [id number] [place] [address] Jan, [facility] [address] [id number] [place] [address] Jan, [facility] [place] [facility] [address] [id number] [place] [address] Jan, [facility] [place] [facility] [address] [id number] [place] [address] December, [facility] [place] [facility] [address] [id number] [place] [address] December, [facility] [address] [id number] [place] [address] 30 Nov, 2012 [facility] [place] [facility] [address] [id number] [place] [address] Nov, [facility] [place] [facility] [address] [id number] [place] [address] Nov, [facility] [place] [facility] [address] [id number] [place] [address] Nov, [facility] [place] [facility] [address] [id number] [place] [address] 24 Nov, 2012 [facility] [place] [facility] [address] [id number] [place] [address] Nov, [facility] [place] [facility] [address] [id number] [place] [address] Nov, [facility] [place] [facility] [address] [id number], [place] [address] 15 Nov, 2012 [facility] [place] [facility] [address] [id number] [place] [address] 11 Nov, 2012 [facility] [place] [facility] [address] [id number] [place] [address] 10 Nov, 2012 [facility] [place] [facility] [address] [id number] [place] [address] 08 Nov, 2012 [facility] [place] [facility] [address] [id number] [place] [address] 05 Nov, 2012 [facility] [address] [id number] [place] [address] Nov, [facility] [place] [facility] [address] [id number] [place] [address] Nov, [facility] [address] [id number] [place] [address] Oct, [facility] [place] [facility] [address] [id number] [place] [address] Oct, [facility] [address] [id number] [place] [address] Oct, [facility] [address] [id number] [place] [address] Oct, [facility] [address] [id number] [place] [address] Oct, [facility] [address] [id number] [place] [address] Oct, [facility] [address] [id number] [place] [address] Oct, [facility] [address] [id number] [place] [address] Oct, [facility] [address] [id number] [place] [address] Oct, [facility] [place] [facility] [address] [id number] [place] [address] Sep, [facility] [place] [facility] [address] [id number] [place] [address] Aug, [facility] [place] [facility] [address] [id number] [place] [address] Aug, [facility] [place] [facility] [address] [id number] [place] [address] Aug, [facility] [place] [facility] [address] [id number] [place] [address] Aug, [facility] [place] [facility] [address] [id number] [place] [address] 31 Jul, 2012 [facility] [place] [facility] [address] [id number] [place] [address] 31 Jul, 2012 [facility] [place] [facility] [address] [id number] [place] [address] Jul, [facility] [address] [id number] [place] [address] 19 Jul, 2012 [facility] [place] [facility] [address] [id number] [place] [address] Jul, [facility] [address] [id number] [place] [address] 15 Jul, 2012 [facility] [place] [facility] [address] [id number] [place] [address] 15 Jul, 2012 [facility] [place] [facility] [address] [id number] [place] [address] 14 Jul, 2012 [facility] [place] [facility] [address] [id number] [place] [address] 14 Jul, 2012 [facility] [place] [facility] [address] [id number] [place] [address] May, [facility] [place] [facility] [address] [id number] [place] [address] 22 May, 2012 [facility] [place] [facility] [address] [id number] [place] [address] 16 May, 2012 [facility] [place] [facility] [address] [id number] [place] [address] 16 May, 2012 [facility] [place] [facility] [address] [id number] [place] [address] 12 May, 2012 [facility] [place] [facility] [address] [id number] [place] [address] May, [facility] [place] [facility] [address] [id number] [place] [address] 27 Apr, 2012 [facility] [place] [facility] [address] [id number] [place] [address] 27 Apr, 2012 [facility] [place] [facility] [address] [id number] [place] [address] 24 Apr, 2012 [facility] [place] [facility] [address] [id number] [place] [address] 18 Apr, 2012 [facility] [place] [facility] [address] [id number] [place] [address] 14 Apr, 2012 [facility] [place] [facility] [address] [id number] [place] [address] 12 Apr, 2012 [facility] [place] [facility] [address] [id number] [place] [address] Mar, [facility] [place] [facility] [address] [id number] [place] [address] Feb, [facility] [place] [facility] [address] [id number] [place] [address] Feb, [facility] [place] [facility] [address] [id number] [place] [address] Feb, [facility] [place] [facility] [address] [id number] [place] [address] Jan, [facility] [place] [facility] [address] [id number] [place] [address] December, [facility] [place] [facility] [address] [id number] [place] [address] December, [facility] [place] [facility] [address] [id number] [place] [address] December, [facility] [place] [facility] [address] [id number] [place] [address] December, [facility] [place] [facility] [address] [id number] [place] [address] December, [facility] [address] [id number] [place] [address] December, [facility] [address] [id number] [place] [address] Nov, [facility] [address] [id number] [place] [address] Nov, [facility] [address] [id number] [place] [address] 17 Nov, 2011 [facility] [address] [id number] [place] [address] Nov, [facility] [address] [id number] [place] [address] 16 Nov, 2011 [facility] [address] [id number] [place] [address] 13 Nov, 2011 [facility] [address] [id number] [place] [address] 12 Nov, 2011 [facility] [address] [id number] [place] [address] Nov, [facility] [address] [id number] [place] [address] 05 Nov, 2011 [facility] [address] [id number] [place] [address] 04 Nov, 2011 [facility] [address] [id number] [place] [address] 30 Oct, 2011 [facility] [place] [facility] [address] [id number] [place] [address] 29 Oct, 2011 [facility] [address] [id number] [place] [address] 28 Oct, 2011 [facility] [address] [id number] [place] [address] Oct, [facility] [place] [facility] [address] [id number] [place] [address] 26 Oct, 2011 [facility] [place] [facility] [address] [id number] [place] [address] 23 Oct, 2011 [facility] [place] [facility] [address] [id number] [place] [address] 21 Oct, 2011 [facility] [place] [facility] [address] [id number] [place] [address] 19 Oct, 2011 [facility] [place] [facility] [address] [id number] [place] [address] 08 Oct, 2011 [facility] [place] [facility] [address] [id number] [place] [address] 07 Oct, 2011 [facility] [place] [facility] [address] [id number] [place] [address] 06 Oct, 2011 [facility] [place] [facility] [address] [id number] [place] [address] 05 Oct, 2011 [facility] [place] [facility] [address] [id number] [place] [address] 16 Sep, 2011 [facility] [place] [facility] [address] [id number] [place] [address] 14 Sep, 2011 [facility] [place] [facility] [address] [id number] [place] [address] 12 Sep, 2011 [facility] [place] [facility] [address] [id number] [place] [address] 10 Sep, 2011 [facility] [place] [facility] [address] [id number] [place] [address] 06 Sep, 2011 [facility] [place] [facility] [address] [id number] [place] [address] 06 Sep, 2011 [facility] [place] [facility] [address] [facility] [id number] [place] [address] 06 Sep, 2011 [facility] [place] [facility] [address] [id number] [place] [address] 06 Sep, 2011 [facility] [address] [id number] [place] [address] Sep, [facility] [address] [id number] [place] [address] 30 Aug, 2011 [facility] [address] [id number] [place] [address] Aug, [facility] [address] [id number] [place] [address] Aug, [facility] [address] [id number] [place] [address] Aug, [facility] [address] [id number] [place] [address] Aug, [facility] [address] [id number] [place] [address] Aug, [facility] [address] [id number] [place] [address] Aug, [facility] [address] [id number] [place] [address] 24 Jul, 2011 [facility] [address] [id number] [place] [address] 16 Jul, 2011 [facility] [address] [id number] [place] [address] 16 Jul, 2011 [facility] [address] [id number] [place] [address] 14 Jul, 2011 [facility] [place] [facility] [address] [id number] [place] [address] 30 Jun, 2011 [facility] [address] [id number] [place] [address] Jun, [facility] [address] [id number] [place] [address] May, [facility] [address] [facility] [id number] [place] [address] Mar, [facility] [address] [facility] [id number], [place] [address] Jan, [facility] [address] [facility] [id number] [place] [address] May, IMMUNIZATIONS No Known Immunizations SOCIAL HISTORY Never Assessed REASON FOR VISIT [facility] PLAN OF CARE VITAL [...]
--- OUTSIDE RECORDS SUMMARY | 2019-03-23 07:12 | XMS REPORT ---
Author Author Migration, Doctor Organization [facility] Address Unknown Phone Unavailable Care Team Providers Care Inspector Plating Name Role Phone Migration, Doctor Unavailable Unavailable PROBLEMS Type Condition ICD9-CM Code QWS46-OC Code Onset Dates Condition Status SNOMED Code Problem Other postablative hypothyroidism 244.1 Active 244898734 Problem Major depressive disorder, recurrent episode, severe, without mention of psychotic behavior 296.33 Active 37194949 ALLERGIES No Information ENCOUNTERS Encounter Location Date Diagnosis [place] [id number] [place] [address] Sep, Unspecified mood [affective] disorder [place] [id number] [place] [address] Aug, Unspecified mood [affective] disorder [place] [id number] [place] [address] Jul, Unspecified mood [affective] disorder 9 [place] [id number] [place] [address] Jun, Unspecified mood [affective] disorder [place] [id number] [place] [address] Mar, Affective disorder 296.90 [place] [id number] [place] [address] Mar, [place] [id number] [place] [address] Feb, Nexplanon removal V25.43 and Initiation of OCP (BCP) V25.01 [place] [id number] [place] [address] Feb, Episodic mood disorder 296.90 [place] [id number] [place] [address] [place] [address] Feb, [facility] [id number], [place] [address] Feb, Routine gynecological examination V72.31 ; Pap test, as part of routine gynecological examination V76.2 ; Breast cancer screening V76.10 ; Nexplanon in place V45.52 and Rash 782.1 [facility] [id number], [place] [address] Jan, Episodic mood disorder 296.90 [facility] [id number] [address] Jan, [facility] [id number], [place] [address] December, Episodic mood disorder 296.90 [facility] [id number], [place] [address] December, [facility] [id number], [place] [address] December, [facility] [id number], [place] [address] December, [facility] [id number], [place] [address] Nov, [facility] [id number], [place] [address] Nov, [facility] [id number], [place] [address] Nov, [facility] [id number], [place] [address] Oct, [facility] [id number], [place] [address] Oct, [facility] [id number] [address] Oct, [facility] [id number] [address] Oct, [facility] [place] [facility] [address] [id number] [place] [address] Oct, [facility] [place] [facility] [address] [id number] [place] [address] Oct, [facility] [place] [facility] [address] [id number] [place] [address] Sep, 2014 [facility] [place] [facility] [address] [id number] [place] [address] Sep, 2014 [facility] [place] [facility] [address] [id number] [place] [address] Sep, 2014 [facility] [place] [facility] [address] [id number] [place] [address] Sep, 2014 [facility] [place] [facility] [address] [id number] [place] [address] Sep, [facility] [place] [facility] [address] [id number] [place] [address] Sep, [facility] [place] [facility] [address] [id number] [place] [address] Aug, [facility] [place] [facility] [address] [id number] [place] [address] Aug, [facility] [place] [facility] [address] [id number] [place] [address] Aug, [facility] [place] [facility] [address] [id number] [place] [address] Aug, [facility] [place] [facility] [address] [id number] [place] [address] Aug, [facility] [place] [facility] [address] [id number] [place] [address] Aug, [facility] [place] [facility] [address] [id number] [place] [address] Aug, [facility] [place] [facility] [address] [id number] [place] [address] 14 Aug, 2014 [facility] [place] [facility] [address] [id number] [place] [address] Aug, [facility] [place] [facility] [address] [id number] [place] [address] Aug, [facility] [place] [facility] [address] [id number] [place] [address] Aug, [facility] [place] [facility] [address] [id number] [place] [address] Aug, [facility] [place] [facility] [address] [id number] [place] [address] Aug, [facility] [place] [facility] [address] [id number] [place] [address] Aug, [facility] [place] [facility] [address] [id number] [place] [address] Aug, [facility] [place] [facility] [address] [id number] [place] [address] Aug, [facility] [place] [facility] [address] [id number] [place] [address] Jul, [facility] [place] [facility] [address] [id number], [place] [address] 15 Jul, 2014 [facility] [place] [facility] [address] [id number], [place] [address] 15 Jul, 2014 [facility] [place] [facility] [address] [id number] [place] [address] Jul, [facility] [place] [facility] [address] [id number] [place] [address] Jul, [facility] [place] [facility] [address] [id number] [place] [address] Jul, [facility] [place] [facility] [address] [id number] [place] [address] 11 Jul, 2014 [facility] [place] [facility] [address] [id number] [place] [address] Jul, [facility] [place] [facility] [address] [id number] [place] [address] Jul, [facility] [place] [facility] [address] [id number] [place] [address] 05 Jul, 2014 [facility] [place] [facility] [address] [id number] [place] [address] 05 Jul, 2014 [facility] [place] [facility] [address] [id number] [place] [address] Jul, [facility] [place] [facility] [address] [id number] [place] [address] Jul, [facility] [place] [facility] [address] [id number] [place] [address] Jun, [facility] [place] [facility] [address] [id number] [place] [address] Jun, [facility] [place] [facility] [address] [id number] [place] [address] Jun, [facility] [place] [facility] [address] [facility] [id number] [place] [address] Jun, [facility] [place] [facility] [address] [id number] [place] [address] Jun, [facility] [place] [facility] [address] [id number] [place] [address] Jun, [facility] [place] [facility] [address] [id number] [place] [address] Jun, [facility] [place] [facility] [address] [id number] [place] [address] Jun, [facility] [place] [facility] [address] [id number], [place] [address] Jun, [facility] [place] [facility] [address] [id number] [place] [address] Jun, [facility] [place] [facility] [address] [id number] [place] [address] Jun, [facility] [place] [facility] [address] [id number] [place] [address] Jun, [facility] [place] [facility] [address] [id number] [place] [address] Jun, [facility] [place] [facility] [address] [id number] [place] [address] Jun, [facility] [place] [facility] [address] [id number] [place] [address] May, [facility] [place] [facility] [address] [id number] [place] [address] May, [facility] [place] [facility] [address] [id number] [place] [address] May, [facility] [place] [facility] [address] [id number] [place] [address] May, [facility] [place] [facility] [address] [id number] [place] [address] May, [facility] [place] [facility] [address] [id number] [place] [address] May, [facility] [place] [facility] [address] [id number] [place] [address] May, [facility] [place] [facility] [address] [id number] [place] [address] May, [facility] [place] [facility] [address] [id number] [place] [address] May, [facility] [place] [facility] [address] [id number] [place] [address] May, [facility] [place] [facility] [address] [id number] [place] [address] 30 Sep, 2013 [facility] [place] [facility] [address] [id number] [place] [address] 30 Sep, 2013 [facility] [place] [facility] [address] [id number] [place] [address] 19 Sep, 2013 [facility] [place] [facility] [address] [id number] [place] [address] 19 Sep, 2013 [facility] [place] [facility] [address] [id number] [place] [address] 18 Sep, 2013 [facility] [place] [facility] [address] [id number] [place] [address] 18 Sep, 2013 [facility] [place] [facility] [address] [id number] [place] [address] 18 Sep, 2013 [facility] [place] [facility] [address] [id number] [place] [address] 18 Sep, 2013 [facility] [place] [facility] [address] [id number] [place] [address] 16 Sep, 2013 [facility] [place] [facility] [address] [id number] [place] [address] 16 Sep, 2013 [facility] [place] [facility] [address] [id number] [place] [address] 08 Sep, 2013 [facility] [place] [facility] [address] [id number] [place] [address] 08 Sep, 2013 [facility] [place] [facility] [address] [id number] [place] [address] 08 Sep, 2013 [facility] [place] [facility] [address] [id number] [place] [address] 08 Sep, 2013 [facility] [place] [facility] [address] [id number] [place] [address] 04 Sep, 2013 [facility] [place] [facility] [address] [id number] [place] [address] 04 Sep, 2013 [facility] [place] [facility] [address] [id number] [place] [address] Mar, [facility] [place] [facility] [address] [id number] [place] [address] Mar, [facility] [place] [facility] [address] [id number] [place] [address] Mar, [facility] [place] [facility] [address] [id number] [place] [address] Jan, [facility] [place] [facility] [address] [id number] [place] [address] 23 Jan, 2014 [facility] [place] [facility] [address] [id number] [place] [address] Jan, [facility] [place] [facility] [address] [id number] [place] [address] 18 Jan, 2014 [facility] [place] [facility] [address] [id number] [place] [address] 16 Jan, 2014 [facility] [place] [facility] [address] [id number] [place] [address] 16 Jan, 2014 [facility] [place] [facility] [address] [id number] [place] [address] 16 Jan, 2014 [facility] [place] [facility] [address] [id number] [place] [address] 16 Jan, 2014 [facility] [place] [facility] [address] [id number] [place] [address] Jan, [facility] [place] [facility] [address] [id number] [place] [address] Jan, [facility] [place] [facility] [address] [id number] [place] [address] Jan, [facility] [place] [facility] [address] [id number] [place] [address] 11 Jan, 2014 [facility] [place] [facility] [address] [id number] [place] [address] Jan, [facility] [place] [facility] [address] [id number] [place] [address] Jan, [facility] [place] [facility] [address] [id number] [place] [address] Jan, [facility] [place] [facility] [address] [id number] [place] [address] Jan, [facility] [place] [facility] [address] [id number] [place] [address] December, [facility] [place] [facility] [address] [id number] [place] [address] December, [facility] [place] [facility] [address] [id number] [place] [address] December, [facility] [place] [facility] [address] [id number] [place] [address] December, [facility] [place] [facility] [address] [id number] [place] [address] December, [facility] [place] [facility] [address] [id number] [place] [address] Nov, [facility] [place] [facility] [address] [id number] [place] [address] Nov, [facility] [place] [facility] [address] [id number] [place] [address] Nov, [facility] [place] [facility] [address] [id number] [place] [address] Nov, [facility] [place] [facility] [address] [id number] [place] [address] Nov, [facility] [place] [facility] [address] [id number] [place] [address] Nov, [facility] [place] [facility] [address] [id number] [place] [address] Nov, [facility] [place] [facility] [address] [id number], [place] [address] 24 Nov, 2013 [facility] [place] [facility] [address] [id number] [place] [address] Nov, [facility] [place] [facility] [address] [id number] [place] [address] Nov, [facility] [place] [facility] [address] [facility] [id number] [place] [address] Oct, [facility] [place] [facility] [address] [id number] [place] [address] Oct, [facility] [place] [facility] [address] [id number] [place] [address] Oct, [facility] [place] [facility] [address] [id number] [place] [address] Oct, [facility] [place] [facility] [address] [facility] [id number] [place] [address] Oct, [facility] [place] [facility] [address] [id number] [place] [address] Oct, [facility] [place] [facility] [address] [id number] [place] [address] Oct, [facility] [place] [facility] [address] [facility] [id number] [place] [address] Oct, [facility] [place] [facility] [address] [id number] [place] [address] Oct, [facility] [place] [facility] [address] [id number] [place] [address] Sep, [facility] [place] [facility] [address] [id number] [place] [address] Sep, [facility] [place] [facility] [address] [id number] [place] [address] Sep, [facility] [place] [facility] [address] [facility] [id number] [place] [address] Sep, [facility] [place] [facility] [address] [id number] [place] [address] Sep, [facility] [place] [facility] [address] [id number] [place] [address] Sep, [facility] [place] [facility] [address] [id number] [place] [address] Sep, [facility] [place] [facility] [address] [id number] [place] [address] Aug, [facility] [place] [facility] [address] [id number] [place] [address] Aug, [facility] [place] [facility] [address] [id number] [place] [address] Aug, [facility] [place] [facility] [address] [id number] [place] [address] Aug, [facility] [place] [facility] [address] [id number] [place] [address] Aug, [facility] [place] [facility] [address] [id number] [place] [address] Aug, [facility] [place] [facility] [address] [id number] [place] [address] Aug, [facility] [place] [facility] [address] [id number] [place] [address] Aug, [facility] [place] [facility] [address] [id number], [place] [address] Jul, [facility] [place] [facility] [address] [id number] [place] [address] Jul, [facility] [place] [facility] [address] [id number] [place] [address] Jul, [facility] [place] [facility] [address] [id number], [place] [address] Jul, [facility] [place] [facility] [address] [id number], [place] [address] Jun, [facility] [place] [facility] [address] [id number] [place] [address] Jun, [facility] [place] [facility] [address] [id number] [place] [address] Jun, [facility] [place] [facility] [address] [id number] [place] [address] May, [facility] [place] [facility] [address] [id number] [place] [address] May, [facility] [place] [facility] [address] [id number] [place] [address] May, [facility] [place] [facility] [address] [id number] [place] [address] May, [facility] [place] [facility] [address] [id number] [place] [address] May, [facility] [place] [facility] [address] [id number] [place] [address] May, [facility] [place] [facility] [address] [facility] [id number] [place] [address] May, [facility] [place] [facility] [address] [facility] [id number] [place] [address] Apr, [facility] [place] [facility] [address] [id number], [place] [address] 17 Apr, 2013 [facility] [place] [facility] [address] [id number], [place] [address] 12 Apr, 2013 [facility] [place] [facility] [address] [id number] [place] [address] 11 Apr, 2013 [facility] [place] [facility] [address] [facility] [id number] [place] [address] 05 Apr, 2013 [facility] [place] [facility] [address] [facility] [id number] [place] [address] Mar, [facility] [place] [facility] [address] [id number] [place] [address] Mar, [facility] [place] [facility] [address] [id number] [place] [address] Mar, [facility] [place] [facility] [address] [id number] [place] [address] Mar, [facility] [place] [facility] [address] [id number] [place] [address] Feb, [facility] [place] [facility] [address] [id number] [place] [address] Feb, [facility] [place] [facility] [address] [id number] [place] [address] Feb, [facility] [place] [facility] [address] [id number] [place] [address] Feb, [facility] [place] [facility] [address] [id number] [place] [address] Feb, [facility] [place] [facility] [address] [id number] [place] [address] Feb, [facility] [place] [facility] [address] [id number] [place] [address] Feb, [facility] [place] [facility] [address] [id number] [place] [address] Feb, [facility] [place] [facility] [address] [id number] [place] [address] Jan, [facility] [place] [facility] [address] [id number] [place] [address] Jan, [facility] [place] [facility] [address] [id number] [place] [address] Jan, [facility] [place] [facility] [address] [id number] [place] [address] Jan, [facility] [place] [facility] [address] [id number] [place] [address] Jan, [facility] [address] [id number] [place] [address] Jan, [facility] [place] [facility] [address] [id number] [place] [address] Jan, [facility] [place] [facility] [address] [id number] [place] [address] December, [facility] [place] [facility] [address] [id number] [place] [address] December, [facility] [address] [id number] [place] [address] 30 Nov, 2012 [facility] [place] [facility] [address] [id number] [place] [address] Nov, [facility] [place] [facility] [address] [id number] [place] [address] Nov, [facility] [place] [facility] [address] [id number] [place] [address] Nov, [facility] [place] [facility] [address] [id number] [place] [address] 24 Nov, 2012 [facility] [place] [facility] [address] [id number] [place] [address] Nov, [facility] [place] [facility] [address] [id number] [place] [address] Nov, [facility] [place] [facility] [address] [id number] [address] 15 Nov, 2012 [facility] [place] [facility] [address] [id number] [place] [address] 11 Nov, 2012 [facility] [place] [facility] [address] [id number] [place] [address] 10 Nov, 2012 [facility] [place] [facility] [address] [id number] [place] [address] 08 Nov, 2012 [facility] [place] [facility] [address] [id number] [place] [address] 05 Nov, 2012 [facility] [address] [id number] [place] [address] Nov, [facility] [place] [facility] [address] [id number] [place] [address] Nov, [facility] [address] [id number] [place] [address] Oct, [facility] [place] [facility] [address] [id number] [place] [address] Oct, [facility] [address] [id number] [place] [address] Oct, [facility] [address] [id number] [place] [address] Oct, [facility] [address] [id number] [place] [address] Oct, [facility] [address] [id number] [place] [address] Oct, [facility] [address] [id number] [place] [address] Oct, [facility] [address] [id number] [place] [address] Oct, [facility] [address] [id number] [place] [address] Oct, [facility] [place] [facility] [address] [id number] [place] [address] Sep, [facility] [place] [facility] [address] [id number] [place] [address] Aug, [facility] [place] [facility] [address] [id number] [place] [address] Aug, [facility] [place] [facility] [address] [id number] [place] [address] Aug, [facility] [place] [facility] [address] [id number] [place] [address] Aug, [facility] [place] [facility] [address] [id number] [place] [address] 31 Jul, 2012 [facility] [place] [facility] [address] [id number] [place] [address] 31 Jul, 2012 [facility] [place] [facility] [address] [id number] [place] [address] Jul, [facility] [address] [id number] [place] [address] 19 Jul, 2012 [facility] [place] [facility] [address] [id number] [place] [address] Jul, [facility] [address] [id number] [place] [address] 15 Jul, 2012 [facility] [place] [facility] [address] [id number] [place] [address] 15 Jul, 2012 [facility] [place] [facility] [address] [id number] [place] [address] 14 Jul, 2012 [facility] [place] [facility] [address] [id number] [place] [address] 14 Jul, 2012 [facility] [place] [facility] [address] [id number] [place] [address] May, [facility] [place] [facility] [address] [id number] [place] [address] 22 May, 2012 [facility] [place] [facility] [address] [id number] [place] [address] 16 May, 2012 [facility] [place] [facility] [address] [id number] [place] [address] 16 May, 2012 [facility] [place] [facility] [address] [id number] [place] [address] 12 May, 2012 [facility] [place] [facility] [address] [id number] [place] [address] May, [facility] [place] [facility] [address] [id number] [place] [address] 27 Apr, 2012 [facility] [place] [facility] [address] [id number] [place] [address] 27 Apr, 2012 [facility] [place] [facility] [address] [id number] [place] [address] 24 Apr, 2012 [facility] [place] [facility] [address] [id number] [place] [address] 18 Apr, 2012 [facility] [place] [facility] [address] [id number] [place] [address] 14 Apr, 2012 [facility] [place] [facility] [address] [id number] [place] [address] 12 Apr, 2012 [facility] [place] [facility] [address] [id number] [place] [address] Mar, [facility] [place] [facility] [address] [id number] [place] [address] Feb, [facility] [place] [facility] [address] [id number] [place] [address] Feb, [facility] [place] [facility] [address] [id number] [place] [address] Feb, [facility] [place] [facility] [address] [id number] [place] [address] Jan, [facility] [place] [facility] [address] [id number] [place] [address] December, [facility] [place] [facility] [address] [id number] [place] [address] December, [facility] [place] [facility] [address] [id number] [place] [address] December, [facility] [place] [facility] [address] [id number] [place] [address] December, [facility] [place] [facility] [address] [id number] [place] [address] December, [facility] [address] [id number] [place] [address] December, [facility] [address] [id number] [place] [address] Nov, [facility] [address] [id number] [place] [address] Nov, [facility] [address] [id number] [place] [address] 17 Nov, 2011 [facility] [address] [id number] [place] [address] Nov, [facility] [address] [id number] [place] [address] 16 Nov, 2011 [facility] [address] [id number] [place] [address] 13 Nov, 2011 [facility] [address] [id number] [place] [address] 12 Nov, 2011 [facility] [address] [id number] [place] [address] Nov, [facility] [address] [id number] [place] [address] 05 Nov, 2011 [facility] [address] [id number] [place] [address] 04 Nov, 2011 [facility] [address] [id number] [place] [address] 30 Oct, 2011 [facility] [place] [facility] [address] [id number] [place] [address] 29 Oct, 2011 [facility] [address] [id number] [place] [address] 28 Oct, 2011 [facility] [address] [id number] [place] [address] Oct, [facility] [place] [facility] [address] [id number] [place] [address] 26 Oct, 2011 [facility] [place] [facility] [address] [id number] [place] [address] 23 Oct, 2011 [facility] [place] [facility] [address] [id number] [place] [address] 21 Oct, 2011 [facility] [place] [facility] [address] [id number] [place] [address] 19 Oct, 2011 [facility] [place] [facility] [address] [id number] [place] [address] 08 Oct, 2011 [facility] [place] [facility] [address] [id number] [place] [address] 07 Oct, 2011 [facility] [place] [facility] [address] [id number] [place] [address] 06 Oct, 2011 [facility] [place] [facility] [address] [id number] [place] [address] 05 Oct, 2011 [facility] [place] [facility] [address] [id number] [place] [address] 16 Sep, 2011 [facility] [place] [facility] [address] [id number] [place] [address] 14 Sep, 2011 [facility] [place] [facility] [address] [id number] [place] [address] 12 Sep, 2011 [facility] [place] [facility] [address] [id number] [place] [address] 10 Sep, 2011 [facility] [place] [facility] [address] [id number] [place] [address] 06 Sep, 2011 [facility] [place] [facility] [address] [id number] [place] [address] 06 Sep, 2011 [facility] [place] [facility] [address] [facility] [id number] [place] [address] 06 Sep, 2011 [facility] [place] [facility] [address] [id number] [place] [address] 06 Sep, 2011 [facility] [address] [id number] [place] [address] Sep, [facility] [address] [id number] [place] [address] 30 Aug, 2011 [facility] [address] [id number] [place] [address] Aug, [facility] [address] [id number] [place] [address] Aug, [facility] [address] [id number] [place] [address] Aug, [facility] [address] [id number] [place] [address] Aug, [facility] [address] [id number] [place] [address] Aug, [facility] [address] [id number] [place] [address] Aug, [facility] [address] [id number] [place] [address] 24 Jul, 2011 [facility] [address] [id number] [place] [address] 16 Jul, 2011 [facility] [address] [id number] [place] [address] 16 Jul, 2011 [facility] [address] [id number] [place] [address] 14 Jul, 2011 [facility] [place] [facility] [address] [id number] [place] [address] 30 Jun, 2011 [facility] [address] [id number] [place] [address] Jun, [facility] [address] [id number] [place] [address] May, [facility] [address] [facility] [id number] [place] [address] Mar, [facility] [address] [facility] [id number] [address] Jan, [facility] [address] [facility] [id number] [place] [address] May, IMMUNIZATIONS No Known Immunizations SOCIAL HISTORY Never Assessed REASON FOR VISIT [facility] PLAN OF [...]
--- OUTSIDE RECORDS SUMMARY | 2019-03-23 07:13 | XMS REPORT ---
Author Author Migration, Doctor Organization [facility] Address Unknown Phone Unavailable Care Team Providers Care Multimedia Producer Name Role Phone Migration, Doctor Unavailable Unavailable PROBLEMS Type Condition ICD9-CM Code CXA69-YI Code Onset Dates Condition Status SNOMED Code Problem Other postablative hypothyroidism 244.1 Active 184655002 Problem Major depressive disorder, recurrent episode, severe, without mention of psychotic behavior 296.33 Active [id number] ALLERGIES No Information ENCOUNTERS Encounter Location Date Diagnosis [place] [id number] [place] [address] Sep, Unspecified mood [affective] disorder [place] [id number] [place] [address] Aug, Unspecified mood [affective] disorder [place] [id number] [place] [address] Jul, Unspecified mood [affective] disorder [address] [place] [id number] [place] [address] Jun, Unspecified mood [affective] disorder [place] [id number] [place] [address] Mar, Affective disorder 296.90 [place] [id number] [place] [address] Mar, [place] [id number] [place] [address] Feb, Nexplanon removal V25.43 and Initiation of OCP (BCP) V25.01 [place] [id number] [place] [address] Feb, Episodic mood disorder 296.90 [place] [id number] [place] [address] [place] [address] Feb, [facility] [address] [address] Feb, Routine gynecological examination V72.31 ; Pap test, as part of routine gynecological examination V76.2 ; Breast cancer screening V76.10 ; Nexplanon in place V45.52 and Rash 782.1 [facility] [address], [place] [address] Jan, Episodic mood disorder 296.90 [facility] [address] [address] Jan, [facility] [address] [address] December, Episodic mood disorder 296.90 [facility] [address] [address] December, [facility] [address] [address] December, [facility] [address] [address] December, [facility] [address] [address] Nov, [facility] [address] [address] Nov, [facility] [address] [address] Nov, [facility] [address] [address] Oct, [facility] [address] [address] Oct, [facility] [id number] [address] Oct, [facility] [id number] [address] Oct, [facility] [place] [facility] [address] [id number] [place] [address] Oct, [facility] [place] [facility] [address] [id number] [place] [address] Oct, [facility] [place] [facility] [address] [id number] [place] [address] Sep, 2014 [facility] [place] [facility] [address] [id number] [place] [address] Sep, 2014 [facility] [place] [facility] [address] [id number] [place] [address] Sep, 2014 [facility] [place] [facility] [address] [id number] [place] [address] Sep, 2014 [facility] [place] [facility] [address] [id number] [place] [address] Sep, [facility] [place] [facility] [address] [id number] [place] [address] Sep, [facility] [place] [facility] [address] [id number] [place] [address] Aug, [facility] [place] [facility] [address] [id number] [place] [address] Aug, [facility] [place] [facility] [address] [id number] [place] [address] Aug, [facility] [place] [facility] [address] [id number] [place] [address] Aug, [facility] [place] [facility] [address] [id number] [place] [address] Aug, [facility] [place] [facility] [address] [id number] [place] [address] Aug, [facility] [place] [facility] [address] [id number] [place] [address] Aug, [facility] [place] [facility] [address] [id number] [place] [address] 14 Aug, 2014 [facility] [place] [facility] [address] [id number] [place] [address] Aug, [facility] [place] [facility] [address] [id number] [place] [address] Aug, [facility] [place] [facility] [address] [id number] [place] [address] Aug, [facility] [place] [facility] [address] [id number] [place] [address] Aug, [facility] [place] [facility] [address] [id number] [place] [address] Aug, [facility] [place] [facility] [address] [id number] [place] [address] Aug, [facility] [place] [facility] [address] [id number] [place] [address] Aug, [facility] [place] [facility] [address] [id number] [place] [address] Aug, [facility] [place] [facility] [address] [id number] [place] [address] Jul, [facility] [place] [facility] [address] [id number], [place] [address] 15 Jul, 2014 [facility] [place] [facility] [address] [id number], [place] [address] 15 Jul, 2014 [facility] [place] [facility] [address] [id number] [place] [address] Jul, [facility] [place] [facility] [address] [id number] [place] [address] Jul, [facility] [place] [facility] [address] [id number] [place] [address] Jul, [facility] [place] [facility] [address] [id number] [place] [address] 11 Jul, 2014 [facility] [place] [facility] [address] [id number] [place] [address] Jul, [facility] [place] [facility] [address] [id number] [place] [address] Jul, [facility] [place] [facility] [address] [id number] [place] [address] 05 Jul, 2014 [facility] [place] [facility] [address] [id number] [place] [address] 05 Jul, 2014 [facility] [place] [facility] [address] [id number] [place] [address] Jul, [facility] [place] [facility] [address] [id number] [place] [address] Jul, [facility] [place] [facility] [address] [id number] [place] [address] Jun, [facility] [place] [facility] [address] [id number] [place] [address] Jun, [facility] [place] [facility] [address] [id number] [place] [address] Jun, [facility] [place] [facility] [address] [facility] [id number] [place] [address] Jun, [facility] [place] [facility] [address] [id number] [place] [address] Jun, [facility] [place] [facility] [address] [id number] [place] [address] Jun, [facility] [place] [facility] [address] [id number] [place] [address] Jun, [facility] [place] [facility] [address] [id number] [place] [address] Jun, [facility] [place] [facility] [address] [id number], [place] [address] Jun, [facility] [place] [facility] [address] [id number] [place] [address] Jun, [facility] [place] [facility] [address] [id number] [place] [address] Jun, [facility] [place] [facility] [address] [id number] [place] [address] Jun, [facility] [place] [facility] [address] [id number] [place] [address] Jun, [facility] [place] [facility] [address] [id number] [place] [address] Jun, [facility] [place] [facility] [address] [id number] [place] [address] May, [facility] [place] [facility] [address] [id number] [place] [address] May, [facility] [place] [facility] [address] [id number] [place] [address] May, [facility] [place] [facility] [address] [id number] [place] [address] May, [facility] [place] [facility] [address] [id number] [place] [address] May, [facility] [place] [facility] [address] [id number] [place] [address] May, [facility] [place] [facility] [address] [id number] [place] [address] May, [facility] [place] [facility] [address] [id number] [place] [address] May, [facility] [place] [facility] [address] [id number] [place] [address] May, [facility] [place] [facility] [address] [id number] [place] [address] May, [facility] [place] [facility] [address] [id number] [place] [address] 30 Sep, 2013 [facility] [place] [facility] [address] [id number] [place] [address] 30 Sep, 2013 [facility] [place] [facility] [address] [id number] [place] [address] 19 Sep, 2013 [facility] [place] [facility] [address] [id number] [place] [address] 19 Sep, 2013 [facility] [place] [facility] [address] [id number] [place] [address] 18 Sep, 2013 [facility] [place] [facility] [address] [id number] [place] [address] 18 Sep, 2013 [facility] [place] [facility] [address] [id number] [place] [address] 18 Sep, 2013 [facility] [place] [facility] [address] [id number] [place] [address] 18 Sep, 2013 [facility] [place] [facility] [address] [id number] [place] [address] 16 Sep, 2013 [facility] [place] [facility] [address] [id number] [place] [address] 16 Sep, 2013 [facility] [place] [facility] [address] [id number] [place] [address] 08 Sep, 2013 [facility] [place] [facility] [address] [id number] [place] [address] 08 Sep, 2013 [facility] [place] [facility] [address] [id number] [place] [address] 08 Sep, 2013 [facility] [place] [facility] [address] [id number] [place] [address] 08 Sep, 2013 [facility] [place] [facility] [address] [id number] [place] [address] 04 Sep, 2013 [facility] [place] [facility] [address] [id number] [place] [address] 04 Sep, 2013 [facility] [place] [facility] [address] [id number] [place] [address] Mar, [facility] [place] [facility] [address] [id number] [place] [address] Mar, [facility] [place] [facility] [address] [id number] [place] [address] Mar, [facility] [place] [facility] [address] [id number] [place] [address] Jan, [facility] [place] [facility] [address] [id number] [place] [address] 23 Jan, 2014 [facility] [place] [facility] [address] [id number] [place] [address] Jan, [facility] [place] [facility] [address] [id number] [place] [address] 18 Jan, 2014 [facility] [place] [facility] [address] [id number] [place] [address] 16 Jan, 2014 [facility] [place] [facility] [address] [id number] [place] [address] 16 Jan, 2014 [facility] [place] [facility] [address] [id number] [place] [address] 16 Jan, 2014 [facility] [place] [facility] [address] [id number] [place] [address] 16 Jan, 2014 [facility] [place] [facility] [address] [id number] [place] [address] Jan, [facility] [place] [facility] [address] [id number] [place] [address] Jan, [facility] [place] [facility] [address] [id number] [place] [address] Jan, [facility] [place] [facility] [address] [id number] [place] [address] 11 Jan, 2014 [facility] [place] [facility] [address] [id number] [place] [address] Jan, [facility] [place] [facility] [address] [id number] [place] [address] Jan, [facility] [place] [facility] [address] [id number] [place] [address] Jan, [facility] [place] [facility] [address] [id number] [place] [address] Jan, [facility] [place] [facility] [address] [id number] [place] [address] December, [facility] [place] [facility] [address] [id number] [place] [address] December, [facility] [place] [facility] [address] [id number] [place] [address] December, [facility] [place] [facility] [address] [id number] [place] [address] December, [facility] [place] [facility] [address] [id number] [place] [address] December, [facility] [place] [facility] [address] [id number] [place] [address] Nov, [facility] [place] [facility] [address] [id number] [place] [address] Nov, [facility] [place] [facility] [address] [id number] [place] [address] Nov, [facility] [place] [facility] [address] [id number] [place] [address] Nov, [facility] [place] [facility] [address] [id number] [place] [address] Nov, [facility] [place] [facility] [address] [id number] [place] [address] Nov, [facility] [place] [facility] [address] [id number] [place] [address] Nov, [facility] [place] [facility] [address] [id number], [place] [address] 24 Nov, 2013 [facility] [place] [facility] [address] [id number] [place] [address] Nov, [facility] [place] [facility] [address] [id number] [place] [address] Nov, [facility] [place] [facility] [address] [facility] [id number] [place] [address] Oct, [facility] [place] [facility] [address] [id number] [place] [address] Oct, [facility] [place] [facility] [address] [id number] [place] [address] Oct, [facility] [place] [facility] [address] [id number] [place] [address] Oct, [facility] [place] [facility] [address] [facility] [id number] [place] [address] Oct, [facility] [place] [facility] [address] [id number] [place] [address] Oct, [facility] [place] [facility] [address] [id number] [place] [address] Oct, [facility] [place] [facility] [address] [facility] [id number] [place] [address] Oct, [facility] [place] [facility] [address] [id number] [place] [address] Oct, [facility] [place] [facility] [address] [id number] [place] [address] Sep, [facility] [place] [facility] [address] [id number] [place] [address] Sep, [facility] [place] [facility] [address] [id number] [place] [address] Sep, [facility] [place] [facility] [address] [facility] [id number] [place] [address] Sep, [facility] [place] [facility] [address] [id number] [place] [address] Sep, [facility] [place] [facility] [address] [id number] [place] [address] Sep, [facility] [place] [facility] [address] [id number] [place] [address] Sep, [facility] [place] [facility] [address] [id number] [place] [address] Aug, [facility] [place] [facility] [address] [id number] [place] [address] Aug, [facility] [place] [facility] [address] [id number] [place] [address] Aug, [facility] [place] [facility] [address] [id number] [place] [address] Aug, [facility] [place] [facility] [address] [id number] [place] [address] Aug, [facility] [place] [facility] [address] [id number] [place] [address] Aug, [facility] [place] [facility] [address] [id number] [place] [address] Aug, [facility] [place] [facility] [address] [id number] [place] [address] Aug, [facility] [place] [facility] [address] [id number], [place] [address] Jul, [facility] [place] [facility] [address] [id number] [place] [address] Jul, [facility] [place] [facility] [address] [id number] [place] [address] Jul, [facility] [place] [facility] [address] [id number], [place] [address] Jul, [facility] [place] [facility] [address] [id number], [place] [address] Jun, [facility] [place] [facility] [address] [id number] [place] [address] Jun, [facility] [place] [facility] [address] [id number] [place] [address] Jun, [facility] [place] [facility] [address] [id number] [place] [address] May, [facility] [place] [facility] [address] [id number] [place] [address] May, [facility] [place] [facility] [address] [id number] [place] [address] May, [facility] [place] [facility] [address] [id number] [place] [address] May, [facility] [place] [facility] [address] [id number] [place] [address] May, [facility] [place] [facility] [address] [id number] [place] [address] May, [facility] [place] [facility] [address] [facility] [id number] [place] [address] May, [facility] [place] [facility] [address] [facility] [id number] [place] [address] Apr, [facility] [place] [facility] [address] [id number], [place] [address] 17 Apr, 2013 [facility] [place] [facility] [address] [id number], [place] [address] 12 Apr, 2013 [facility] [place] [facility] [address] [id number] [place] [address] 11 Apr, 2013 [facility] [place] [facility] [address] [facility] [id number] [place] [address] 05 Apr, 2013 [facility] [place] [facility] [address] [facility] [id number] [place] [address] Mar, [facility] [place] [facility] [address] [id number] [place] [address] Mar, [facility] [place] [facility] [address] [id number] [place] [address] Mar, [facility] [place] [facility] [address] [id number] [place] [address] Mar, [facility] [place] [facility] [address] [id number] [place] [address] Feb, [facility] [place] [facility] [address] [id number] [place] [address] Feb, [facility] [place] [facility] [address] [id number] [place] [address] Feb, [facility] [place] [facility] [address] [id number] [place] [address] Feb, [facility] [place] [facility] [address] [id number] [place] [address] Feb, [facility] [place] [facility] [address] [id number] [place] [address] Feb, [facility] [place] [facility] [address] [id number] [place] [address] Feb, [facility] [place] [facility] [address] [id number] [place] [address] Feb, [facility] [place] [facility] [address] [id number] [place] [address] Jan, [facility] [place] [facility] [address] [id number] [place] [address] Jan, [facility] [place] [facility] [address] [id number] [place] [address] Jan, [facility] [place] [facility] [address] [id number] [place] [address] Jan, [facility] [place] [facility] [address] [id number] [place] [address] Jan, [facility] [address] [id number] [place] [address] Jan, [facility] [place] [facility] [address] [id number] [place] [address] Jan, [facility] [place] [facility] [address] [id number] [place] [address] December, [facility] [place] [facility] [address] [id number] [place] [address] December, [facility] [address] [id number] [place] [address] 30 Nov, 2012 [facility] [place] [facility] [address] [id number] [place] [address] Nov, [facility] [place] [facility] [address] [id number] [place] [address] Nov, [facility] [place] [facility] [address] [id number] [place] [address] Nov, [facility] [place] [facility] [address] [id number] [place] [address] 24 Nov, 2012 [facility] [place] [facility] [address] [id number] [place] [address] Nov, [facility] [place] [facility] [address] [id number] [place] [address] Nov, [facility] [place] [facility] [address] [id number] [address] 15 Nov, 2012 [facility] [place] [facility] [address] [id number] [place] [address] 11 Nov, 2012 [facility] [place] [facility] [address] [id number] [place] [address] 10 Nov, 2012 [facility] [place] [facility] [address] [id number] [place] [address] 08 Nov, 2012 [facility] [place] [facility] [address] [id number] [place] [address] 05 Nov, 2012 [facility] [address] [id number] [place] [address] Nov, [facility] [place] [facility] [address] [id number] [place] [address] Nov, [facility] [address] [id number] [place] [address] Oct, [facility] [place] [facility] [address] [id number] [place] [address] Oct, [facility] [address] [id number] [place] [address] Oct, [facility] [address] [id number] [place] [address] Oct, [facility] [address] [id number] [place] [address] Oct, [facility] [address] [id number] [place] [address] Oct, [facility] [address] [id number] [place] [address] Oct, [facility] [address] [id number] [place] [address] Oct, [facility] [address] [id number] [place] [address] Oct, [facility] [place] [facility] [address] [id number] [place] [address] Sep, [facility] [place] [facility] [address] [id number] [place] [address] Aug, [facility] [place] [facility] [address] [id number] [place] [address] Aug, [facility] [place] [facility] [address] [id number] [place] [address] Aug, [facility] [place] [facility] [address] [id number] [place] [address] Aug, [facility] [place] [facility] [address] [id number] [place] [address] 31 Jul, 2012 [facility] [place] [facility] [address] [id number] [place] [address] 31 Jul, 2012 [facility] [place] [facility] [address] [id number] [place] [address] Jul, [facility] [address] [id number] [place] [address] 19 Jul, 2012 [facility] [place] [facility] [address] [id number] [place] [address] Jul, [facility] [address] [id number] [place] [address] 15 Jul, 2012 [facility] [place] [facility] [address] [id number] [place] [address] 15 Jul, 2012 [facility] [place] [facility] [address] [id number] [place] [address] 14 Jul, 2012 [facility] [place] [facility] [address] [id number] [place] [address] 14 Jul, 2012 [facility] [place] [facility] [address] [id number] [place] [address] May, [facility] [place] [facility] [address] [id number] [place] [address] 22 May, 2012 [facility] [place] [facility] [address] [id number] [place] [address] 16 May, 2012 [facility] [place] [facility] [address] [id number] [place] [address] 16 May, 2012 [facility] [place] [facility] [address] [id number] [place] [address] 12 May, 2012 [facility] [place] [facility] [address] [id number] [place] [address] May, [facility] [place] [facility] [address] [id number] [place] [address] 27 Apr, 2012 [facility] [place] [facility] [address] [id number] [place] [address] 27 Apr, 2012 [facility] [place] [facility] [address] [id number] [place] [address] 24 Apr, 2012 [facility] [place] [facility] [address] [id number] [place] [address] 18 Apr, 2012 [facility] [place] [facility] [address] [id number] [place] [address] 14 Apr, 2012 [facility] [place] [facility] [address] [id number] [place] [address] 12 Apr, 2012 [facility] [place] [facility] [address] [id number] [place] [address] Mar, [facility] [place] [facility] [address] [id number] [place] [address] Feb, [facility] [place] [facility] [address] [id number] [place] [address] Feb, [facility] [place] [facility] [address] [id number] [place] [address] Feb, [facility] [place] [facility] [address] [id number] [place] [address] Jan, [facility] [place] [facility] [address] [id number] [place] [address] December, [facility] [place] [facility] [address] [id number] [place] [id number] December, [facility] [place] [facility] [address] [id number] [place] [address] December, [facility] [place] [facility] [address] [id number] [place] [address] December, [facility] [place] [facility] [address] [id number] [place] [address] December, [facility] [address] [id number] [place] [address] December, [facility] [address] [id number] [place] [address] Nov, [facility] [address] [id number] [place] [address] Nov, [facility] [address] [id number] [place] [address] 17 Nov, 2011 [facility] [address] [id number] [place] [address] Nov, [facility] [address] [id number] [place] [address] 16 Nov, 2011 [facility] [address] [id number] [place] [address] 13 Nov, 2011 [facility] [address] [id number] [place] [address] 12 Nov, 2011 [facility] [address] [id number] [place] [address] Nov, [facility] [address] [id number] [place] [address] 05 Nov, 2011 [facility] [address] [id number] [place] [address] 04 Nov, 2011 [facility] [address] [id number] [place] [address] 30 Oct, 2011 [facility] [place] [facility] [address] [id number] [place] [address] 29 Oct, 2011 [facility] [address] [id number] [place] [address] 28 Oct, 2011 [facility] [address] [id number] [place] [address] Oct, [facility] [place] [facility] [address] [id number] [place] [address] 26 Oct, 2011 [facility] [place] [facility] [address] [id number] [place] [address] 23 Oct, 2011 [facility] [place] [facility] [address] [id number] [place] [address] 21 Oct, 2011 [facility] [place] [facility] [address] [id number] [place] [address] 19 Oct, 2011 [facility] [place] [facility] [address] [id number] [place] [address] 08 Oct, 2011 [facility] [place] [facility] [address] [id number] [place] [address] 07 Oct, 2011 [facility] [place] [facility] [address] [id number] [place] [address] 06 Oct, 2011 [facility] [place] [facility] [address] [id number] [place] [address] 05 Oct, 2011 [facility] [place] [facility] [address] [id number] [place] [address] 16 Sep, 2011 [facility] [place] [facility] [address] [id number] [place] [address] 14 Sep, 2011 [facility] [place] [facility] [address] [id number] [place] [address] 12 Sep, 2011 [facility] [place] [facility] [address] [id number] [place] [address] 10 Sep, 2011 [facility] [place] [facility] [address] [id number] [place] [address] 06 Sep, 2011 [facility] [place] [facility] [address] [id number] [place] [address] 06 Sep, 2011 [facility] [place] [facility] [address] [facility] [id number] [place] [address] 06 Sep, 2011 [facility] [place] [facility] [address] [id number] [place] [address] 06 Sep, 2011 [facility] [address] [id number] [place] [address] Sep, [facility] [address] [id number] [place] [address] 30 Aug, 2011 [facility] [address] [id number] [place] [address] Aug, [facility] [address] [id number] [place] [address] Aug, [facility] [address] [id number] [place] [address] Aug, [facility] [address] [id number] [place] [address] Aug, [facility] [address] [id number] [place] [address] Aug, [facility] [address] [id number] [place] [address] Aug, [facility] [address] [id number] [place] [address] 24 Jul, 2011 [facility] [address] [id number] [place] [address] 16 Jul, 2011 [facility] [address] [id number] [place] [address] 16 Jul, 2011 [facility] [address] [id number] [place] [address] 14 Jul, 2011 [facility] [place] [facility] [address] [id number] [place] [address] 30 Jun, 2011 [facility] [address] [id number] [place] [address] Jun, [facility] [address] [id number] [place] [address] May, [facility] [address] [facility] [id number] [place] [address] Mar, [facility] [address] [facility] [id number] [address] Jan, [facility] [address] [facility] [id number] [place] [address] May, IMMUNIZATIONS No Known Immunizations SOCIAL HISTORY Never Assessed REASON FOR VISIT [facility] [place] PLAN OF CARE [...]
--- OUTSIDE RECORDS SUMMARY | 2019-03-23 07:13 | XMS REPORT ---
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 Name Role Phone Migration, Doctor Unavailable Unavailable PROBLEMS Type Condition ICD9-CM Code [id number] Code Onset Dates Condition Status SNOMED Code Problem Other postablative hypothyroidism 244.1 Active [id number] Problem Major depressive disorder, recurrent episode, severe, without mention of psychotic behavior 296.33 Active [id number] ALLERGIES No Information ENCOUNTERS Encounter Location Date Diagnosis [place] [id number] [place] [address] Sep, Unspecified mood [affective] disorder [place] [id number] [place] [address] Aug, Unspecified mood [affective] disorder [place] [id number] [place] [address] Jul, Unspecified mood [affective] disorder [address] [place] [id number] [place] [address] Jun, Unspecified mood [affective] disorder [place] [id number] [place] [address] Mar, Affective disorder 296.90 [place] [id number] [place] [address] Mar, [place] [id number] [place] [address] Feb, Nexplanon removal V25.43 and Initiation of OCP (BCP) V25.01 [place] [id number] [place] [address] Feb, Episodic mood disorder 296.90 [place] [id number] [place] [address] [place] [address] Feb, [facility] [id number] [address] Feb, Routine gynecological examination V72.31 ; Pap test, as part of routine gynecological examination V76.2 ; Breast cancer screening V76.10 ; Nexplanon in place V45.52 and Rash 782.1 [facility] [id number] [address] Jan, Episodic mood disorder 296.90 [facility] [id number] [address] Jan, [facility] [address] [address] December, Episodic mood disorder 296.90 [facility] [id number] [address] December, [facility] [id number] [address] December, [facility] [id number] [address] December, [facility] [id number] [address] Nov, [facility] [id number] [address] Nov, [facility] [id number], [place] [address] Nov, [facility] [id number] [address] Oct, [facility] [id number] [address] Oct, [facility] [id number] [address] Oct, [facility] [id number] [place] [address] Oct, [facility] [place] [facility] [address] [id number] [place] [address] Oct, [facility] [place] [facility] [address] [id number] [place] [address] Oct, [facility] [place] [facility] [address] [id number] [place] [address] Sep, 2014 [facility] [place] [facility] [address] [id number] [place] [address] Sep, 2014 [facility] [place] [facility] [address] [id number] [place] [address] Sep, 2014 [facility] [place] [facility] [address] [id number] [place] [address] Sep, 2014 [facility] [place] [facility] [address] [id number] [place] [address] Sep, [facility] [place] [facility] [address] [id number] [place] [address] Sep, [facility] [place] [facility] [address] [id number] [place] [address] Aug, [facility] [place] [facility] [address] [id number] [place] [address] Aug, [facility] [place] [facility] [address] [id number] [place] [address] Aug, [facility] [place] [facility] [address] [id number] [place] [address] Aug, [facility] [place] [facility] [address] [id number] [place] [address] Aug, [facility] [place] [facility] [address] [id number] [place] [address] Aug, [facility] [place] [facility] [address] [id number] [place] [address] Aug, [facility] [place] [facility] [address] [id number] [place] [address] 14 Aug, 2014 [facility] [place] [facility] [address] [id number] [place] [address] Aug, [facility] [place] [facility] [address] [id number] [place] [address] Aug, [facility] [place] [facility] [address] [id number] [place] [address] Aug, [facility] [place] [facility] [address] [id number] [place] [address] Aug, [facility] [place] [facility] [address] [id number] [place] [address] Aug, [facility] [place] [facility] [address] [id number] [place] [address] Aug, [facility] [place] [facility] [address] [id number] [place] [address] Aug, [facility] [place] [facility] [address] [id number] [place] [address] Aug, [facility] [place] [facility] [address] [id number] [place] [address] Jul, [facility] [place] [facility] [address] [id number], [place] [address] 15 Jul, 2014 [facility] [place] [facility] [address] [id number], [place] [address] 15 Jul, 2014 [facility] [place] [facility] [address] [id number] [place] [address] Jul, [facility] [place] [facility] [address] [id number] [place] [address] Jul, [facility] [place] [facility] [address] [id number] [place] [address] Jul, [facility] [place] [facility] [address] [id number] [place] [address] 11 Jul, 2014 [facility] [place] [facility] [address] [id number] [place] [address] Jul, [facility] [place] [facility] [address] [id number] [place] [address] Jul, [facility] [place] [facility] [address] [id number] [place] [address] 05 Jul, 2014 [facility] [place] [facility] [address] [id number] [place] [address] 05 Jul, 2014 [facility] [place] [facility] [address] [id number] [place] [address] Jul, [facility] [place] [facility] [address] [id number] [place] [address] Jul, [facility] [place] [facility] [address] [id number] [place] [address] Jun, [facility] [place] [facility] [address] [id number] [place] [address] Jun, [facility] [place] [facility] [address] [id number] [place] [address] Jun, [facility] [place] [facility] [address] [facility] [id number] [place] [address] Jun, [facility] [place] [facility] [address] [id number] [place] [address] Jun, [facility] [place] [facility] [address] [id number] [place] [address] Jun, [facility] [place] [facility] [address] [id number] [place] [address] Jun, [facility] [place] [facility] [address] [id number] [place] [address] Jun, [facility] [place] [facility] [address] [id number], [place] [address] Jun, [facility] [place] [facility] [address] [id number] [place] [address] Jun, [facility] [place] [facility] [address] [id number] [place] [address] Jun, [facility] [place] [facility] [address] [id number] [place] [address] Jun, [facility] [place] [facility] [address] [id number] [place] [address] Jun, [facility] [place] [facility] [address] [id number] [place] [address] Jun, [facility] [place] [facility] [address] [id number] [place] [address] May, [facility] [place] [facility] [address] [id number] [place] [address] May, [facility] [place] [facility] [address] [id number] [place] [address] May, [facility] [place] [facility] [address] [id number] [place] [address] May, [facility] [place] [facility] [address] [id number] [place] [address] May, [facility] [place] [facility] [address] [id number] [place] [address] May, [facility] [place] [facility] [address] [id number] [place] [address] May, [facility] [place] [facility] [address] [id number] [place] [address] May, [facility] [place] [facility] [address] [id number] [place] [address] May, [facility] [place] [facility] [address] [id number] [place] [address] May, [facility] [place] [facility] [address] [id number] [place] [address] 30 Sep, 2013 [facility] [place] [facility] [address] [id number] [place] [address] 30 Sep, 2013 [facility] [place] [facility] [address] [id number] [place] [address] 19 Sep, 2013 [facility] [place] [facility] [address] [id number] [place] [address] 19 Sep, 2013 [facility] [place] [facility] [address] [id number] [place] [address] 18 Sep, 2013 [facility] [place] [facility] [address] [id number] [place] [address] 18 Sep, 2013 [facility] [place] [facility] [address] [id number] [place] [address] 18 Sep, 2013 [facility] [place] [facility] [address] [id number] [place] [address] 18 Sep, 2013 [facility] [place] [facility] [address] [id number] [place] [address] 16 Sep, 2013 [facility] [place] [facility] [address] [id number] [place] [address] 16 Sep, 2013 [facility] [place] [facility] [address] [id number] [place] [address] 08 Sep, 2013 [facility] [place] [facility] [address] [id number] [place] [address] 08 Sep, 2013 [facility] [place] [facility] [address] [id number] [place] [address] 08 Sep, 2013 [facility] [place] [facility] [address] [id number] [place] [address] 08 Sep, 2013 [facility] [place] [facility] [address] [id number] [place] [address] 04 Sep, 2013 [facility] [place] [facility] [address] [id number] [place] [address] 04 Sep, 2013 [facility] [place] [facility] [address] [id number] [place] [address] Mar, [facility] [place] [facility] [address] [id number] [place] [address] Mar, [facility] [place] [facility] [address] [id number] [place] [address] Mar, [facility] [place] [facility] [address] [id number] [place] [address] Jan, [facility] [place] [facility] [address] [id number] [place] [address] 23 Jan, 2014 [facility] [place] [facility] [address] [id number] [place] [address] Jan, [facility] [place] [facility] [address] [id number] [place] [address] 18 Jan, 2014 [facility] [place] [facility] [address] [id number] [place] [address] 16 Jan, 2014 [facility] [place] [facility] [address] [id number] [place] [address] 16 Jan, 2014 [facility] [place] [facility] [address] [id number] [place] [address] 16 Jan, 2014 [facility] [place] [facility] [address] [id number] [place] [address] 16 Jan, 2014 [facility] [place] [facility] [address] [id number] [place] [address] Jan, [facility] [place] [facility] [address] [id number] [place] [address] Jan, [facility] [place] [facility] [address] [id number] [place] [address] Jan, [facility] [place] [facility] [address] [id number] [place] [address] 11 Jan, 2014 [facility] [place] [facility] [address] [id number] [place] [address] Jan, [facility] [place] [facility] [address] [id number] [place] [address] Jan, [facility] [place] [facility] [address] [id number] [place] [address] Jan, [facility] [place] [facility] [address] [id number] [place] [address] Jan, [facility] [place] [facility] [address] [id number] [place] [address] December, [facility] [place] [facility] [address] [id number] [place] [address] December, [facility] [place] [facility] [address] [id number] [place] [address] December, [facility] [place] [facility] [address] [id number] [place] [address] December, [facility] [place] [facility] [address] [id number] [place] [address] December, [facility] [place] [facility] [address] [id number] [place] [address] Nov, [facility] [place] [facility] [address] [id number] [place] [address] Nov, [facility] [place] [facility] [address] [id number] [place] [address] Nov, [facility] [place] [facility] [address] [id number] [place] [address] Nov, [facility] [place] [facility] [address] [id number] [place] [address] Nov, [facility] [place] [facility] [address] [id number] [place] [address] Nov, [facility] [place] [facility] [address] [id number] [place] [address] Nov, [facility] [place] [facility] [address] [id number], [place] [address] 24 Nov, 2013 [facility] [place] [facility] [address] [id number] [place] [address] Nov, [facility] [place] [facility] [address] [id number] [place] [address] Nov, [facility] [place] [facility] [address] [facility] [id number] [place] [address] Oct, [facility] [place] [facility] [address] [id number] [place] [address] Oct, [facility] [place] [facility] [address] [id number] [place] [address] Oct, [facility] [place] [facility] [address] [id number] [place] [address] Oct, [facility] [place] [facility] [address] [facility] [id number] [place] [address] Oct, [facility] [place] [facility] [address] [id number] [place] [address] Oct, [facility] [place] [facility] [address] [id number] [place] [address] Oct, [facility] [place] [facility] [address] [facility] [id number] [place] [address] Oct, [facility] [place] [facility] [address] [id number] [place] [address] Oct, [facility] [place] [facility] [address] [id number] [place] [address] Sep, [facility] [place] [facility] [address] [id number] [place] [address] Sep, [facility] [place] [facility] [address] [id number] [place] [address] Sep, [facility] [place] [facility] [address] [facility] [id number] [place] [address] Sep, [facility] [place] [facility] [address] [id number] [place] [address] Sep, [facility] [place] [facility] [address] [id number] [place] [address] Sep, [facility] [place] [facility] [address] [id number] [place] [address] Sep, [facility] [place] [facility] [address] [id number] [place] [address] Aug, [facility] [place] [facility] [address] [id number] [place] [address] Aug, [facility] [place] [facility] [address] [id number] [place] [address] Aug, [facility] [place] [facility] [address] [id number] [place] [address] Aug, [facility] [place] [facility] [address] [id number] [place] [address] Aug, [facility] [place] [facility] [address] [id number] [place] [address] Aug, [facility] [place] [facility] [address] [id number] [place] [address] Aug, [facility] [place] [facility] [address] [id number] [place] [address] Aug, [facility] [place] [facility] [address] [id number], [place] [address] Jul, [facility] [place] [facility] [address] [id number] [place] [address] Jul, [facility] [place] [facility] [address] [id number] [place] [address] Jul, [facility] [place] [facility] [address] [id number], [place] [address] Jul, [facility] [place] [facility] [address] [id number], [place] [address] Jun, [facility] [place] [facility] [address] [id number] [place] [address] Jun, [facility] [place] [facility] [address] [id number] [place] [address] Jun, [facility] [place] [facility] [address] [id number] [place] [address] May, [facility] [place] [facility] [address] [id number] [place] [address] May, [facility] [place] [facility] [address] [id number] [place] [address] May, [facility] [place] [facility] [address] [id number] [place] [address] May, [facility] [place] [facility] [address] [id number] [place] [address] May, [facility] [place] [facility] [address] [id number] [place] [address] May, [facility] [place] [facility] [address] [facility] [id number] [place] [address] May, [facility] [place] [facility] [address] [facility] [id number] [place] [address] Apr, [facility] [place] [facility] [address] [id number], [place] [address] 17 Apr, 2013 [facility] [place] [facility] [address] [id number], [place] [address] 12 Apr, 2013 [facility] [place] [facility] [address] [id number] [place] [address] 11 Apr, 2013 [facility] [place] [facility] [address] [facility] [id number] [place] [address] 05 Apr, 2013 [facility] [place] [facility] [address] [facility] [id number] [place] [address] Mar, [facility] [place] [facility] [address] [id number] [place] [address] Mar, [facility] [place] [facility] [address] [id number] [place] [address] Mar, [facility] [place] [facility] [address] [id number] [place] [address] Mar, [facility] [place] [facility] [address] [id number] [place] [address] Feb, [facility] [place] [facility] [address] [id number] [place] [address] Feb, [facility] [place] [facility] [address] [id number] [place] [address] Feb, [facility] [place] [facility] [address] [id number] [place] [address] Feb, [facility] [place] [facility] [address] [id number] [place] [address] Feb, [facility] [place] [facility] [address] [id number] [place] [address] Feb, [facility] [place] [facility] [address] [id number] [place] [address] Feb, [facility] [place] [facility] [address] [id number] [place] [address] Feb, [facility] [place] [facility] [address] [id number] [place] [address] Jan, [facility] [place] [facility] [address] [id number] [place] [address] Jan, [facility] [place] [facility] [address] [id number] [place] [address] Jan, [facility] [place] [facility] [address] [id number] [place] [address] Jan, [facility] [place] [facility] [address] [id number] [place] [address] Jan, [facility] [address] [id number] [place] [address] Jan, [facility] [place] [facility] [address] [id number] [place] [address] Jan, [facility] [place] [facility] [address] [id number] [place] [address] December, [facility] [place] [facility] [address] [id number] [place] [address] December, [facility] [address] [id number] [place] [address] 30 Nov, 2012 [facility] [place] [facility] [address] [id number] [place] [address] Nov, [facility] [place] [facility] [address] [id number] [place] [address] Nov, [facility] [place] [facility] [address] [id number] [place] [address] Nov, [facility] [place] [facility] [address] [id number] [place] [address] 24 Nov, 2012 [facility] [place] [facility] [address] [id number] [place] [address] Nov, [facility] [place] [facility] [address] [id number] [place] [address] Nov, [facility] [place] [facility] [address] [id number] [address] 15 Nov, 2012 [facility] [place] [facility] [address] [id number] [place] [address] 11 Nov, 2012 [facility] [place] [facility] [address] [id number] [place] [address] 10 Nov, 2012 [facility] [place] [facility] [address] [id number] [place] [address] 08 Nov, 2012 [facility] [place] [facility] [address] [id number] [place] [address] 05 Nov, 2012 [facility] [address] [id number] [place] [address] Nov, [facility] [place] [facility] [address] [id number] [place] [address] Nov, [facility] [address] [id number] [place] [address] Oct, [facility] [place] [facility] [address] [id number] [place] [address] Oct, [facility] [address] [id number] [place] [address] Oct, [facility] [address] [id number] [place] [address] Oct, [facility] [address] [id number] [place] [address] Oct, [facility] [address] [id number] [place] [address] Oct, [facility] [address] [id number] [place] [address] Oct, [facility] [address] [id number] [place] [address] Oct, [facility] [address] [id number] [place] [address] Oct, [facility] [place] [facility] [address] [id number] [place] [address] Sep, [facility] [place] [facility] [address] [id number] [place] [address] Aug, [facility] [place] [facility] [address] [id number] [place] [address] Aug, [facility] [place] [facility] [address] [id number] [place] [address] Aug, [facility] [place] [facility] [address] [id number] [place] [address] Aug, [facility] [place] [facility] [address] [id number] [place] [address] 31 Jul, 2012 [facility] [place] [facility] [address] [id number] [place] [address] 31 Jul, 2012 [facility] [place] [facility] [address] [id number] [place] [address] Jul, [facility] [address] [id number] [place] [address] 19 Jul, 2012 [facility] [place] [facility] [address] [id number] [place] [address] Jul, [facility] [address] [id number] [place] [address] 15 Jul, 2012 [facility] [place] [facility] [address] [id number] [place] [address] 15 Jul, 2012 [facility] [place] [facility] [address] [id number] [place] [address] 14 Jul, 2012 [facility] [place] [facility] [address] [id number] [place] [address] 14 Jul, 2012 [facility] [place] [facility] [address] [id number] [place] [address] May, [facility] [place] [facility] [address] [id number] [place] [address] 22 May, 2012 [facility] [place] [facility] [address] [id number] [place] [address] 16 May, 2012 [facility] [place] [facility] [address] [id number] [place] [address] 16 May, 2012 [facility] [place] [facility] [address] [id number] [place] [address] 12 May, 2012 [facility] [place] [facility] [address] [id number] [place] [address] May, [facility] [place] [facility] [address] [id number] [place] [address] 27 Apr, 2012 [facility] [place] [facility] [address] [id number] [place] [address] 27 Apr, 2012 [facility] [place] [facility] [address] [id number] [place] [address] 24 Apr, 2012 [facility] [place] [facility] [address] [id number] [place] [address] 18 Apr, 2012 [facility] [place] [facility] [address] [id number] [place] [address] 14 Apr, 2012 [facility] [place] [facility] [address] [id number] [place] [address] 12 Apr, 2012 [facility] [place] [facility] [address] [id number] [place] [address] Mar, [facility] [place] [facility] [address] [id number] [place] [address] Feb, [facility] [place] [facility] [address] [id number] [place] [address] Feb, [facility] [facility] [address] [id number] [place] [address] Feb, [facility] [place] [facility] [address] [id number] [place] [address] Jan, [facility] [place] [facility] [address] [id number] [place] [address] December, [facility] [place] [facility] [address] [id number] [place] [address] December, [facility] [place] [facility] [address] [id number] [place] [address] December, [facility] [place] [facility] [address] [id number] [place] [address] December, [facility] [place] [facility] [address] [id number] [place] [address] December, [facility] [address] [id number] [place] [address] December, [facility] [address] [id number] [place] [address] Nov, [facility] [address] [id number] [place] [address] Nov, [facility] [address] [id number] [place] [address] 17 Nov, 2011 [facility] [address] [id number] [place] [address] Nov, [facility] [address] [id number] [place] [address] 16 Nov, 2011 [facility] [address] [id number] [place] [address] 13 Nov, 2011 [facility] [address] [id number] [place] [address] 12 Nov, 2011 [facility] [address] [id number] [place] [address] Nov, [facility] [address] [id number] [place] [address] 05 Nov, 2011 [facility] [address] [id number] [place] [address] 04 Nov, 2011 [facility] [address] [id number] [place] [address] 30 Oct, 2011 [facility] [place] [facility] [address] [id number] [place] [address] 29 Oct, 2011 [facility] [address] [id number] [place] [address] 28 Oct, 2011 [facility] [address] [id number] [place] [address] Oct, [facility] [place] [facility] [address] [id number] [place] [address] 26 Oct, 2011 [facility] [place] [facility] [address] [id number] [place] [address] 23 Oct, 2011 [facility] [place] [facility] [address] [id number] [place] [address] 21 Oct, 2011 [facility] [place] [facility] [address] [id number] [place] [address] 19 Oct, 2011 [facility] [place] [facility] [address] [id number] [place] [address] 08 Oct, 2011 [facility] [place] [facility] [address] [id number] [place] [address] 07 Oct, 2011 [facility] [place] [facility] [address] [id number] [place] [address] 06 Oct, 2011 [facility] [place] [facility] [address] [id number] [place] [address] 05 Oct, 2011 [facility] [place] [facility] [address] [id number] [place] [address] 16 Sep, 2011 [facility] [place] [facility] [address] [id number] [place] [address] 14 Sep, 2011 [facility] [place] [facility] [address] [id number] [place] [address] 12 Sep, 2011 [facility] [place] [facility] [address] [id number] [place] [address] 10 Sep, 2011 [facility] [place] [facility] [address] [id number] [place] [address] 06 Sep, 2011 [facility] [place] [facility] [address] [id number] [place] [address] 06 Sep, 2011 [facility] [place] [facility] [address] [facility] [id number] [place] [address] 06 Sep, 2011 [facility] [place] [facility] [address] [id number] [place] [address] 06 Sep, 2011 [facility] [address] [id number] [place] [address] Sep, [facility] [address] [id number] [place] [address] 30 Aug, 2011 [facility] [address] [id number] [place] [address] Aug, [facility] [address] [id number] [place] [address] Aug, [facility] [address] [id number] [place] [address] Aug, [facility] [address] [id number] [place] [address] Aug, [facility] [address] [id number] [place] [address] Aug, [facility] [address] [id number] [place] [address] Aug, [facility] [address] [id number] [place] [address] 24 Jul, 2011 [facility] [address] [id number] [place] [address] 16 Jul, 2011 [facility] [address] [id number] [place] [address] 16 Jul, 2011 [facility] [address] [id number] [place] [address] 14 Jul, 2011 [facility] [address] [id number] [place] [address] 30 Jun, 2011 [facility] [address] [id number] [place] [address] Jun, [facility] [address] [id number] [place] [address] May, [facility] [address] [facility] [id number] [place] [address] Mar, [facility] [address] [facility] [id number] [address] Jan, [facility] [address] [facility] [id number] [place] [address] May, IMMUNIZATIONS No Known Immunizations SOCIAL HISTORY Never Assessed REASON FOR VISIT [facility] VITAL SIGNS MEDICATIONS Unknown [...]
--- OUTSIDE RECORDS SUMMARY | 2019-03-23 07:14 | XMS REPORT ---
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 Name Role Phone Migration, Doctor Unavailable Unavailable PROBLEMS Type Condition ICD9-CM Code KVJ27-OH Code Onset Dates Condition Status SNOMED Code Problem Other postablative hypothyroidism 244.1 Active [id number] Problem Major depressive disorder, recurrent episode, severe, without mention of psychotic behavior 296.33 Active 11339685 ALLERGIES No Information ENCOUNTERS Encounter Location Date Diagnosis [place] [id number] [place] [address] Sep, Unspecified mood [affective] disorder [place] [id number] [place] [address] Aug, Unspecified mood [affective] disorder [place] [id number] [place] [address] Jul, Unspecified mood [affective] disorder [address] [place] [id number] [place] [address] Jun, Unspecified mood [affective] disorder [place] [id number] [place] [address] Mar, Affective disorder 296.90 [place] [id number] [place] [address] Mar, [place] [id number] [place] [address] Feb, Nexplanon removal V25.43 and Initiation of OCP (BCP) V25.01 [place] [id number] [place] [address] Feb, Episodic mood disorder 296.90 [place] [id number] [place] [address] [place] [address] Feb, [facility] [id number] [address] Feb, Routine gynecological examination V72.31 ; Pap test, as part of routine gynecological examination V76.2 ; Breast cancer screening V76.10 ; Nexplanon in place V45.52 and Rash 782.1 [facility] [id number] [address] Jan, Episodic mood disorder 296.90 [facility] [address] [address] Jan, [facility] [address] [address] December, Episodic mood disorder 296.90 [facility] [address] [address] December, [facility] [address] [address] December, [facility] [address] [address] December, [facility] [id number] [address] Nov, [facility] [address] [address] Nov, [facility] [address] [address] Nov, [facility] [address] [address] Oct, [facility] [id number] [address] Oct, [facility] [id number] [address] Oct, [facility] [id number] [place] [address] Oct, [facility] [place] [facility] [address] [id number] [place] [address] Oct, [facility] [place] [facility] [address] [id number] [place] [address] Oct, [facility] [place] [facility] [address] [id number] [place] [address] Sep, 2014 [facility] [place] [facility] [address] [id number] [place] [address] Sep, 2014 [facility] [place] [facility] [address] [id number] [place] [address] Sep, 2014 [facility] [place] [facility] [address] [id number] [place] [address] Sep, 2014 [facility] [place] [facility] [address] [id number] [place] [address] Sep, [facility] [place] [facility] [address] [id number] [place] [address] Sep, [facility] [place] [facility] [address] [id number] [place] [address] Aug, [facility] [place] [facility] [address] [id number] [place] [address] Aug, [facility] [place] [facility] [address] [id number] [place] [address] Aug, [facility] [place] [facility] [address] [id number] [place] [address] Aug, [facility] [place] [facility] [address] [id number] [place] [address] Aug, [facility] [place] [facility] [address] [id number] [place] [address] Aug, [facility] [place] [facility] [address] [id number] [place] [address] Aug, [facility] [place] [facility] [address] [id number] [place] [address] 14 Aug, 2014 [facility] [place] [facility] [address] [id number] [place] [address] Aug, [facility] [place] [facility] [address] [id number] [place] [address] Aug, [facility] [place] [facility] [address] [id number] [place] [address] Aug, [facility] [place] [facility] [address] [id number] [place] [address] Aug, [facility] [place] [facility] [address] [id number] [place] [address] Aug, [facility] [place] [facility] [address] [id number] [place] [address] Aug, [facility] [place] [facility] [address] [id number] [place] [address] Aug, [facility] [place] [facility] [address] [id number] [place] [address] Aug, [facility] [place] [facility] [address] [id number] [place] [address] Jul, [facility] [place] [facility] [address] [id number], [place] [address] 15 Jul, 2014 [facility] [place] [facility] [address] [id number], [place] [address] 15 Jul, 2014 [facility] [place] [facility] [address] [id number] [place] [address] Jul, [facility] [place] [facility] [address] [id number] [place] [address] Jul, [facility] [place] [facility] [address] [id number] [place] [address] Jul, [facility] [place] [facility] [address] [id number] [place] [address] 11 Jul, 2014 [facility] [place] [facility] [address] [id number] [place] [address] Jul, [facility] [place] [facility] [address] [id number] [place] [address] Jul, [facility] [place] [facility] [address] [id number] [place] [address] 05 Jul, 2014 [facility] [place] [facility] [address] [id number] [place] [address] 05 Jul, 2014 [facility] [place] [facility] [address] [id number] [place] [address] Jul, [facility] [place] [facility] [address] [id number] [place] [address] Jul, [facility] [place] [facility] [address] [id number] [place] [address] Jun, [facility] [place] [facility] [address] [id number] [place] [address] Jun, [facility] [place] [facility] [address] [id number] [place] [address] Jun, [facility] [place] [facility] [address] [facility] [id number] [place] [address] Jun, [facility] [place] [facility] [address] [id number] [place] [address] Jun, [facility] [place] [facility] [address] [id number] [place] [address] Jun, [facility] [place] [facility] [address] [id number] [place] [address] Jun, [facility] [place] [facility] [address] [id number] [place] [address] Jun, [facility] [place] [facility] [address] [id number], [place] [address] Jun, [facility] [place] [facility] [address] [id number] [place] [address] Jun, [facility] [place] [facility] [address] [id number] [place] [address] Jun, [facility] [place] [facility] [address] [id number] [place] [address] Jun, [facility] [place] [facility] [address] [id number] [place] [address] Jun, [facility] [place] [facility] [address] [id number] [place] [address] Jun, [facility] [place] [facility] [address] [id number] [place] [address] May, [facility] [place] [facility] [address] [id number] [place] [address] May, [facility] [place] [facility] [address] [id number] [place] [address] May, [facility] [place] [facility] [address] [id number] [place] [address] May, [facility] [place] [facility] [address] [id number] [place] [address] May, [facility] [place] [facility] [address] [id number] [place] [address] May, [facility] [place] [facility] [address] [id number] [place] [address] May, [facility] [place] [facility] [address] [id number] [place] [address] May, [facility] [place] [facility] [address] [id number] [place] [address] May, [facility] [place] [facility] [address] [id number] [place] [address] May, [facility] [place] [facility] [address] [id number] [place] [address] 30 Sep, 2013 [facility] [place] [facility] [address] [id number] [place] [address] 30 Sep, 2013 [facility] [place] [facility] [address] [id number] [place] [address] 19 Sep, 2013 [facility] [place] [facility] [address] [id number] [place] [address] 19 Sep, 2013 [facility] [place] [facility] [address] [id number] [place] [address] 18 Sep, 2013 [facility] [place] [facility] [address] [id number] [place] [address] 18 Sep, 2013 [facility] [place] [facility] [address] [id number] [place] [address] 18 Sep, 2013 [facility] [place] [facility] [address] [id number] [place] [address] 18 Sep, 2013 [facility] [place] [facility] [address] [id number] [place] [address] 16 Sep, 2013 [facility] [place] [facility] [address] [id number] [place] [address] 16 Sep, 2013 [facility] [place] [facility] [address] [id number] [place] [address] 08 Sep, 2013 [facility] [place] [facility] [address] [id number] [place] [address] 08 Sep, 2013 [facility] [place] [facility] [address] [id number] [place] [address] 08 Sep, 2013 [facility] [place] [facility] [address] [id number] [place] [address] 08 Sep, 2013 [facility] [place] [facility] [address] [id number] [place] [address] 04 Sep, 2013 [facility] [place] [facility] [address] [id number] [place] [address] 04 Sep, 2013 [facility] [place] [facility] [address] [id number] [place] [address] Mar, [facility] [place] [facility] [address] [id number] [place] [address] Mar, [facility] [place] [facility] [address] [id number] [place] [address] Mar, [facility] [place] [facility] [address] [id number] [place] [address] Jan, [facility] [place] [facility] [address] [id number] [place] [address] 23 Jan, 2014 [facility] [place] [facility] [address] [id number] [place] [address] Jan, [facility] [place] [facility] [address] [id number] [place] [address] 18 Jan, 2014 [facility] [place] [facility] [address] [id number] [place] [address] 16 Jan, 2014 [facility] [place] [facility] [address] [id number] [place] [address] 16 Jan, 2014 [facility] [place] [facility] [address] [id number] [place] [address] 16 Jan, 2014 [facility] [place] [facility] [address] [id number] [place] [address] 16 Jan, 2014 [facility] [place] [facility] [address] [id number] [place] [address] Jan, [facility] [place] [facility] [address] [id number] [place] [address] Jan, [facility] [place] [facility] [address] [id number] [place] [address] Jan, [facility] [place] [facility] [address] [id number] [place] [address] 11 Jan, 2014 [facility] [place] [facility] [address] [id number] [place] [address] Jan, [facility] [place] [facility] [address] [id number] [place] [address] Jan, [facility] [place] [facility] [address] [id number] [place] [address] Jan, [facility] [place] [facility] [address] [id number] [place] [address] Jan, [facility] [place] [facility] [address] [id number] [place] [address] December, [facility] [place] [facility] [address] [id number] [place] [address] December, [facility] [place] [facility] [address] [id number] [place] [address] December, [facility] [place] [facility] [address] [id number] [place] [address] December, [facility] [place] [facility] [address] [id number] [place] [address] December, [facility] [place] [facility] [address] [id number] [place] [address] Nov, [facility] [place] [facility] [address] [id number] [place] [address] Nov, [facility] [place] [facility] [address] [id number] [place] [address] Nov, [facility] [place] [facility] [address] [id number] [place] [address] Nov, [facility] [place] [facility] [address] [id number] [place] [address] Nov, [facility] [place] [facility] [address] [id number] [place] [address] Nov, [facility] [place] [facility] [address] [id number] [place] [address] Nov, [facility] [place] [facility] [address] [id number], [place] [address] 24 Nov, 2013 [facility] [place] [facility] [address] [id number] [place] [address] Nov, [facility] [place] [facility] [address] [id number] [place] [address] Nov, [facility] [place] [facility] [address] [facility] [id number] [place] [address] Oct, [facility] [place] [facility] [address] [id number] [place] [address] Oct, [facility] [place] [facility] [address] [id number] [place] [address] Oct, [facility] [place] [facility] [address] [id number] [place] [address] Oct, [facility] [place] [facility] [address] [facility] [id number] [place] [address] Oct, [facility] [place] [facility] [address] [id number] [place] [address] Oct, [facility] [place] [facility] [address] [id number] [place] [address] Oct, [facility] [place] [facility] [address] [facility] [id number] [place] [address] Oct, [facility] [place] [facility] [address] [id number] [place] [address] Oct, [facility] [place] [facility] [address] [id number] [place] [address] Sep, [facility] [place] [facility] [address] [id number] [place] [address] Sep, [facility] [place] [facility] [address] [id number] [place] [address] Sep, [facility] [place] [facility] [address] [facility] [id number] [place] [address] Sep, [facility] [place] [facility] [address] [id number] [place] [address] Sep, [facility] [place] [facility] [address] [id number] [place] [address] Sep, [facility] [place] [facility] [address] [id number] [place] [address] Sep, [facility] [place] [facility] [address] [id number] [place] [address] Aug, [facility] [place] [facility] [address] [id number] [place] [address] Aug, [facility] [place] [facility] [address] [id number] [place] [address] Aug, [facility] [place] [facility] [address] [id number] [place] [address] Aug, [facility] [place] [facility] [address] [id number] [place] [address] Aug, [facility] [place] [facility] [address] [id number] [place] [address] Aug, [facility] [place] [facility] [address] [id number] [place] [address] Aug, [facility] [place] [facility] [address] [id number] [place] [address] Aug, [facility] [place] [facility] [address] [id number], [place] [address] Jul, [facility] [place] [facility] [address] [id number] [place] [address] Jul, [facility] [place] [facility] [address] [id number] [place] [address] Jul, [facility] [place] [facility] [address] [id number], [place] [address] Jul, [facility] [place] [facility] [address] [id number], [place] [address] Jun, [facility] [place] [facility] [address] [id number] [place] [address] Jun, [facility] [place] [facility] [address] [id number] [place] [address] Jun, [facility] [place] [facility] [address] [id number] [place] [address] May, [facility] [place] [facility] [address] [id number] [place] [address] May, [facility] [place] [facility] [address] [id number] [place] [address] May, [facility] [place] [facility] [address] [id number] [place] [address] May, [facility] [place] [facility] [address] [id number] [place] [address] May, [facility] [place] [facility] [address] [id number] [place] [address] May, [facility] [place] [facility] [address] [facility] [id number] [place] [address] May, [facility] [place] [facility] [address] [facility] [id number] [place] [address] Apr, [facility] [place] [facility] [address] [id number], [place] [address] 17 Apr, 2013 [facility] [place] [facility] [address] [id number], [place] [address] 12 Apr, 2013 [facility] [place] [facility] [address] [id number] [place] [address] 11 Apr, 2013 [facility] [place] [facility] [address] [facility] [id number] [place] [address] 05 Apr, 2013 [facility] [place] [facility] [address] [facility] [id number] [place] [address] Mar, [facility] [place] [facility] [address] [id number] [place] [address] Mar, [facility] [place] [facility] [address] [id number] [place] [address] Mar, [facility] [place] [facility] [address] [id number] [place] [address] Mar, [facility] [place] [facility] [address] [id number] [place] [address] Feb, [facility] [place] [facility] [address] [id number] [place] [address] Feb, [facility] [place] [facility] [address] [id number] [place] [address] Feb, [facility] [place] [facility] [address] [id number] [place] [address] Feb, [facility] [place] [facility] [address] [id number] [place] [address] Feb, [facility] [place] [facility] [address] [id number] [place] [address] Feb, [facility] [place] [facility] [address] [id number] [place] [address] Feb, [facility] [place] [facility] [address] [id number] [place] [address] Feb, [facility] [place] [facility] [address] [id number] [place] [address] Jan, [facility] [place] [facility] [address] [id number] [place] [address] Jan, [facility] [place] [facility] [address] [id number] [place] [address] Jan, [facility] [place] [facility] [address] [id number] [place] [address] Jan, [facility] [place] [facility] [address] [id number] [place] [address] Jan, [facility] [address] [id number] [place] [address] Jan, [facility] [place] [facility] [address] [id number] [place] [address] Jan, [facility] [place] [facility] [address] [id number] [place] [address] December, [facility] [place] [facility] [address] [id number] [place] [address] December, [facility] [address] [id number] [place] [address] 30 Nov, 2012 [facility] [place] [facility] [address] [id number] [place] [address] Nov, [facility] [place] [facility] [address] [id number] [place] [address] Nov, [facility] [place] [facility] [address] [id number] [place] [address] Nov, [facility] [place] [facility] [address] [id number] [place] [address] 24 Nov, 2012 [facility] [place] [facility] [address] [id number] [place] [address] Nov, [facility] [place] [facility] [address] [id number] [place] [address] Nov, [facility] [place] [facility] [address] [id number] [address] 15 Nov, 2012 [facility] [place] [facility] [address] [id number] [place] [address] 11 Nov, 2012 [facility] [place] [facility] [address] [id number] [place] [address] 10 Nov, 2012 [facility] [place] [facility] [address] [id number] [place] [address] 08 Nov, 2012 [facility] [place] [facility] [address] [id number] [place] [address] 05 Nov, 2012 [facility] [address] [id number] [place] [address] Nov, [facility] [place] [facility] [address] [id number] [place] [address] Nov, [facility] [address] [id number] [place] [address] Oct, [facility] [place] [facility] [address] [id number] [place] [address] Oct, [facility] [address] [id number] [place] [address] Oct, [facility] [address] [id number] [place] [address] Oct, [facility] [address] [id number] [place] [address] Oct, [facility] [address] [id number] [place] [address] Oct, [facility] [address] [id number] [place] [address] Oct, [facility] [address] [id number] [place] [address] Oct, [facility] [address] [id number] [place] [address] Oct, [facility] [place] [facility] [address] [id number] [place] [address] Sep, [facility] [place] [facility] [address] [id number] [place] [address] Aug, [facility] [place] [facility] [address] [id number] [place] [address] Aug, [facility] [place] [facility] [address] [id number] [place] [address] Aug, [facility] [place] [facility] [address] [id number] [place] [address] Aug, [facility] [place] [facility] [address] [id number] [place] [address] 31 Jul, 2012 [facility] [place] [facility] [address] [id number] [place] [address] 31 Jul, 2012 [facility] [place] [facility] [address] [id number] [place] [address] Jul, [facility] [address] [id number] [place] [address] 19 Jul, 2012 [facility] [place] [facility] [address] [id number] [place] [address] Jul, [facility] [address] [id number] [place] [address] 15 Jul, 2012 [facility] [place] [facility] [address] [id number] [place] [address] 15 Jul, 2012 [facility] [place] [facility] [address] [id number] [place] [address] 14 Jul, 2012 [facility] [place] [facility] [address] [id number] [place] [address] 14 Jul, 2012 [facility] [place] [facility] [address] [id number] [place] [address] May, [facility] [place] [facility] [address] [id number] [place] [address] 22 May, 2012 [facility] [place] [facility] [address] [id number] [place] [address] 16 May, 2012 [facility] [place] [facility] [address] [id number] [place] [address] 16 May, 2012 [facility] [place] [facility] [address] [id number] [place] [address] 12 May, 2012 [facility] [place] [facility] [address] [id number] [place] [address] May, [facility] [place] [facility] [address] [id number] [place] [address] 27 Apr, 2012 [facility] [place] [facility] [address] [id number] [place] [address] 27 Apr, 2012 [facility] [place] [facility] [address] [id number] [place] [address] 24 Apr, 2012 [facility] [place] [facility] [address] [id number] [place] [address] 18 Apr, 2012 [facility] [place] [facility] [address] [id number] [place] [address] 14 Apr, 2012 [facility] [place] [facility] [address] [id number] [place] [address] 12 Apr, 2012 [facility] [place] [facility] [address] [id number] [place] [address] Mar, [facility] [place] [facility] [address] [id number] [place] [address] Feb, [facility] [place] [facility] [address] [id number] [place] [address] Feb, [facility] [place] [facility] [address] [id number] [place] [address] Feb, [facility] [place] [facility] [address] [id number] [place] [address] Jan, [facility] [place] [facility] [address] [id number] [place] [address] December, [facility] [place] [facility] [address] [id number] [place] [address] December, [facility] [place] [facility] [address] [id number] [place] [address] December, [facility] [place] [facility] [address] [id number] [place] [address] December, [facility] [place] [facility] [address] [id number] [place] [address] December, [facility] [address] [id number] [place] [address] December, [facility] [address] [id number] [place] [address] Nov, [facility] [address] [id number] [place] [address] Nov, [facility] [address] [id number] [place] [address] 17 Nov, 2011 [facility] [address] [id number] [place] [address] Nov, [facility] [address] [id number] [place] [address] 16 Nov, 2011 [facility] [address] [id number] [place] [address] 13 Nov, 2011 [facility] [address] [id number] [place] [address] 12 Nov, 2011 [facility] [address] [id number] [place] [address] Nov, [facility] [address] [id number] [place] [address] 05 Nov, 2011 [facility] [address] [id number] [place] [address] 04 Nov, 2011 [facility] [address] [id number] [place] [address] 30 Oct, 2011 [facility] [place] [facility] [address] [id number] [place] [address] 29 Oct, 2011 [facility] [address] [id number] [place] [address] 28 Oct, 2011 [facility] [address] [id number] [place] [address] Oct, [facility] [place] [facility] [address] [id number] [place] [address] 26 Oct, 2011 [facility] [place] [facility] [address] [id number] [place] [address] 23 Oct, 2011 [facility] [place] [facility] [address] [id number] [place] [address] 21 Oct, 2011 [facility] [place] [facility] [address] [id number] [place] [address] 19 Oct, 2011 [facility] [place] [facility] [address] [id number] [place] [address] 08 Oct, 2011 [facility] [place] [facility] [address] [id number] [place] [address] 07 Oct, 2011 [facility] [place] [facility] [address] [id number] [place] [address] 06 Oct, 2011 [facility] [place] [facility] [address] [id number] [place] [address] 05 Oct, 2011 [facility] [place] [facility] [address] [id number] [place] [address] 16 Sep, 2011 [facility] [place] [facility] [address] [id number] [place] [address] 14 Sep, 2011 [facility] [place] [facility] [address] [id number] [place] [address] 12 Sep, 2011 [facility] [place] [facility] [address] [id number] [place] [address] 10 Sep, 2011 [facility] [place] [facility] [address] [id number] [place] [address] 06 Sep, 2011 [facility] [place] [facility] [address] [id number] [place] [address] 06 Sep, 2011 [facility] [place] [facility] [address] [facility] [id number] [place] [address] 06 Sep, 2011 [facility] [place] [facility] [address] [id number] [place] [address] 06 Sep, 2011 [facility] [address] [id number] [place] [address] Sep, [facility] [address] [id number] [place] [address] 30 Aug, 2011 [facility] [address] [id number] [place] [address] Aug, [facility] [address] [id number] [place] [address] Aug, [facility] [address] [id number] [place] [address] Aug, [facility] [address] [id number] [place] [address] Aug, [facility] [address] [id number] [place] [address] Aug, [facility] [address] [id number] [place] [address] Aug, [facility] [address] [id number] [place] [address] 24 Jul, 2011 [facility] [address] [id number] [place] [address] 16 Jul, 2011 [facility] [address] [id number] [place] [address] 16 Jul, 2011 [facility] [address] [id number] [place] [address] 14 Jul, 2011 [facility] [place] [facility] [address] [id number] [place] [address] 30 Jun, 2011 [facility] [address] [id number] [place] [address] Jun, [facility] [address] [id number] [place] [address] May, [facility] [address] [facility] [id number] [place] [address] Mar, [facility] [address] [facility] [id number] [address] Jan, [facility] [address] [facility] [id number] [place] [address] May, IMMUNIZATIONS No Known Immunizations SOCIAL HISTORY Never Assessed REASON FOR VISIT [facility] [place] [...]
--- OUTSIDE RECORDS SUMMARY | 2019-03-23 07:14 | XMS REPORT ---
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 Name Role Phone Migration, Doctor Unavailable Unavailable PROBLEMS Type Condition ICD9-CM Code MJC99-NH Code Onset Dates Condition Status SNOMED Code Problem Other postablative hypothyroidism 244.1 Active [id number] Problem Major depressive disorder, recurrent episode, severe, without mention of psychotic behavior 296.33 Active [id number] ALLERGIES No Information ENCOUNTERS Encounter Location Date Diagnosis [place] [id number] [place] [address] Sep, Unspecified mood [affective] disorder [place] [id number] [place] [address] Aug, Unspecified mood [affective] disorder [place] [id number] [place] [address] Jul, Unspecified mood [affective] disorder [address] [id number] [place] [address] Jun, Unspecified mood [affective] disorder [place] [id number] [place] [address] Mar, Affective disorder 296.90 [place] [id number] [place] [address] Mar, [place] [id number] [place] [address] Feb, Nexplanon removal V25.43 and Initiation of OCP (BCP) V25.01 [place] [id number] [place] [address] Feb, Episodic mood disorder 296.90 [place] [id number] [place] [address] [place] [address] Feb, [facility] [address] [address] Feb, Routine gynecological examination V72.31 ; Pap test, as part of routine gynecological examination V76.2 ; Breast cancer screening V76.10 ; Nexplanon in place V45.52 and Rash 782.1 [facility] [address] [address] Jan, Episodic mood disorder 296.90 [facility] [address] [address] Jan, [facility] [address] [address] December, Episodic mood disorder 296.90 [facility] [address] [address] December, [facility] [address] [address] December, [facility] [address] [address] December, [facility] [address] [address] Nov, [facility] [address] [address] Nov, [facility] [address] [address] Nov, [facility] [address] [address] Oct, [facility] [address] [address] Oct, [facility] [id number] [address] Oct, [facility] [id number] [place] [address] Oct, [facility] [place] [facility] [address] [id number] [place] [address] Oct, [facility] [place] [facility] [address] [id number] [place] [address] Oct, [facility] [place] [facility] [address] [id number] [place] [address] Sep, 2014 [facility] [place] [facility] [address] [id number] [place] [address] Sep, 2014 [facility] [place] [facility] [address] [id number] [place] [address] Sep, 2014 [facility] [place] [facility] [address] [id number] [place] [address] Sep, 2014 [facility] [place] [facility] [address] [id number] [place] [address] Sep, [facility] [place] [facility] [address] [id number] [place] [address] Sep, [facility] [place] [facility] [address] [id number] [place] [address] Aug, [facility] [place] [facility] [address] [id number] [place] [address] Aug, [facility] [place] [facility] [address] [id number] [place] [address] Aug, [facility] [place] [facility] [address] [id number] [place] [address] Aug, [facility] [place] [facility] [address] [id number] [place] [address] Aug, [facility] [place] [facility] [address] [id number] [place] [address] Aug, [facility] [place] [facility] [address] [id number] [place] [address] Aug, [facility] [place] [facility] [address] [id number] [place] [address] 14 Aug, 2014 [facility] [place] [facility] [address] [id number] [place] [address] Aug, [facility] [place] [facility] [address] [id number] [place] [address] Aug, [facility] [place] [facility] [address] [id number] [place] [address] Aug, [facility] [place] [facility] [address] [id number] [place] [address] Aug, [facility] [place] [facility] [address] [id number] [place] [address] Aug, [facility] [place] [facility] [address] [id number] [place] [address] Aug, [facility] [place] [facility] [address] [id number] [place] [address] Aug, [facility] [place] [facility] [address] [id number] [place] [address] Aug, [facility] [place] [facility] [address] [id number] [place] [address] Jul, [facility] [place] [facility] [address] [id number] [address] 15 Jul, 2014 [facility] [place] [facility] [address] [id number] [place] [address] 15 Jul, 2014 [facility] [place] [facility] [address] [id number] [place] [address] Jul, [facility] [place] [facility] [address] [id number] [place] [address] Jul, [facility] [place] [facility] [address] [id number] [place] [address] Jul, [facility] [place] [facility] [address] [id number] [place] [address] 11 Jul, 2014 [facility] [place] [facility] [address] [id number] [place] [address] Jul, [facility] [place] [facility] [address] [id number] [place] [address] Jul, [facility] [place] [facility] [address] [id number] [place] [address] 05 Jul, 2014 [facility] [place] [facility] [address] [id number] [place] [address] 05 Jul, 2014 [facility] [place] [facility] [address] [id number] [place] [address] Jul, [facility] [place] [facility] [address] [id number] [place] [address] Jul, [facility] [place] [facility] [address] [id number] [place] [address] Jun, [facility] [place] [facility] [address] [id number] [place] [address] Jun, [facility] [place] [facility] [address] [id number] [place] [address] Jun, [facility] [place] [facility] [address] [facility] [id number] [place] [address] Jun, [facility] [place] [facility] [address] [id number] [place] [address] Jun, [facility] [place] [facility] [address] [id number] [place] [address] Jun, [facility] [place] [facility] [address] [id number] [place] [address] Jun, [facility] [place] [facility] [address] [id number] [place] [address] Jun, [facility] [place] [facility] [address] [id number] [place] [address] Jun, [facility] [place] [facility] [address] [id number] [place] [address] Jun, [facility] [place] [facility] [address] [id number] [place] [address] Jun, [facility] [place] [facility] [address] [id number] [place] [address] Jun, [facility] [place] [facility] [address] [id number] [place] [address] Jun, [facility] [place] [facility] [address] [id number] [place] [address] Jun, [facility] [place] [facility] [address] [id number] [place] [address] May, [facility] [place] [facility] [address] [id number] [place] [address] May, [facility] [place] [facility] [address] [id number] [place] [address] May, [facility] [place] [facility] [address] [id number] [place] [address] May, [facility] [place] [facility] [address] [id number] [place] [address] May, [facility] [place] [facility] [address] [id number] [place] [address] May, [facility] [place] [facility] [address] [id number] [place] [address] May, [facility] [place] [facility] [address] [id number] [place] [address] May, [facility] [place] [facility] [address] [id number] [place] [address] May, [facility] [place] [facility] [address] [id number] [place] [address] May, [facility] [place] [facility] [address] [id number] [place] [address] 30 Sep, 2013 [facility] [place] [facility] [address] [id number] [place] [address] 30 Sep, 2013 [facility] [place] [facility] [address] [id number] [place] [address] 19 Sep, 2013 [facility] [place] [facility] [address] [id number] [place] [address] 19 Sep, 2013 [facility] [place] [facility] [address] [id number] [place] [address] 18 Sep, 2013 [facility] [place] [facility] [address] [id number] [place] [address] 18 Sep, 2013 [facility] [place] [facility] [address] [id number] [place] [address] 18 Sep, 2013 [facility] [place] [facility] [address] [id number] [place] [address] 18 Sep, 2013 [facility] [place] [facility] [address] [id number] [place] [address] 16 Sep, 2013 [facility] [place] [facility] [address] [id number] [place] [address] 16 Sep, 2013 [facility] [place] [facility] [address] [id number] [place] [address] 08 Sep, 2013 [facility] [place] [facility] [address] [id number] [place] [address] 08 Sep, 2013 [facility] [place] [facility] [address] [id number] [place] [address] 08 Sep, 2013 [facility] [place] [facility] [address] [id number] [place] [address] 08 Sep, 2013 [facility] [place] [facility] [address] [id number] [place] [address] 04 Sep, 2013 [facility] [place] [facility] [address] [id number] [place] [address] 04 Sep, 2013 [facility] [place] [facility] [address] [id number] [place] [address] Mar, [facility] [place] [facility] [address] [id number] [place] [address] Mar, [facility] [place] [facility] [address] [id number] [place] [address] Mar, [facility] [place] [facility] [address] [id number] [place] [address] Jan, [facility] [place] [facility] [address] [id number] [place] [address] 23 Jan, 2014 [facility] [place] [facility] [address] [id number] [place] [address] Jan, [facility] [place] [facility] [address] [id number] [place] [address] 18 Jan, 2014 [facility] [place] [facility] [address] [id number] [place] [address] 16 Jan, 2014 [facility] [place] [facility] [address] [id number] [place] [address] 16 Jan, 2014 [facility] [place] [facility] [address] [id number] [place] [address] 16 Jan, 2014 [facility] [place] [facility] [address] [id number] [place] [address] 16 Jan, 2014 [facility] [place] [facility] [address] [id number] [place] [address] Jan, [facility] [place] [facility] [address] [id number] [place] [address] Jan, [facility] [place] [facility] [address] [id number] [place] [address] Jan, [facility] [place] [facility] [address] [id number] [place] [address] 11 Jan, 2014 [facility] [place] [facility] [address] [id number] [place] [address] Jan, [facility] [place] [facility] [address] [id number] [place] [address] Jan, [facility] [place] [facility] [address] [id number] [place] [address] Jan, [facility] [place] [facility] [address] [id number] [place] [address] Jan, [facility] [place] [facility] [address] [id number] [place] [address] December, [facility] [place] [facility] [address] [id number] [place] [address] December, [facility] [place] [facility] [address] [id number] [place] [address] December, [facility] [place] [facility] [address] [id number] [place] [address] December, [facility] [place] [facility] [address] [id number] [place] [address] December, [facility] [place] [facility] [address] [id number] [place] [address] Nov, [facility] [place] [facility] [address] [id number] [place] [address] Nov, [facility] [place] [facility] [address] [id number] [place] [address] Nov, [facility] [place] [facility] [address] [id number] [place] [address] Nov, [facility] [place] [facility] [address] [id number] [place] [address] Nov, [facility] [place] [facility] [address] [id number] [place] [address] Nov, [facility] [place] [facility] [address] [id number] [place] [address] Nov, [facility] [place] [facility] [address] [id number] [address] 24 Nov, 2013 [facility] [place] [facility] [address] [id number] [place] [address] Nov, [facility] [place] [facility] [address] [id number] [place] [address] Nov, [facility] [place] [facility] [address] [facility] [id number] [place] [address] Oct, [facility] [place] [facility] [address] [id number] [place] [address] Oct, [facility] [place] [facility] [address] [id number] [place] [address] Oct, [facility] [place] [facility] [address] [id number] [place] [address] Oct, [facility] [place] [facility] [address] [facility] [id number] [place] [address] Oct, [facility] [place] [facility] [address] [id number] [place] [address] Oct, [facility] [place] [facility] [address] [id number] [place] [address] Oct, [facility] [place] [facility] [address] [facility] [id number] [place] [address] Oct, [facility] [place] [facility] [address] [id number] [place] [address] Oct, [facility] [place] [facility] [address] [id number] [place] [address] Sep, [facility] [place] [facility] [address] [id number] [place] [address] Sep, [facility] [place] [facility] [address] [id number] [place] [address] Sep, [facility] [place] [facility] [address] [facility] [id number] [place] [address] Sep, [facility] [place] [facility] [address] [id number] [place] [address] Sep, [facility] [place] [facility] [address] [id number] [place] [address] Sep, [facility] [place] [facility] [address] [id number] [place] [address] Sep, [facility] [place] [facility] [address] [id number] [place] [address] Aug, [facility] [place] [facility] [address] [id number] [place] [address] Aug, [facility] [place] [facility] [address] [id number] [place] [address] Aug, [facility] [place] [facility] [address] [id number] [place] [address] Aug, [facility] [place] [facility] [address] [id number] [place] [address] Aug, [facility] [place] [facility] [address] [id number] [place] [address] Aug, [facility] [place] [facility] [address] [id number] [place] [address] Aug, [facility] [place] [facility] [address] [id number] [place] [address] Aug, [facility] [place] [facility] [address] [id number] [place] [address] Jul, [facility] [place] [facility] [address] [id number] [place] [address] Jul, [facility] [place] [facility] [address] [id number] [place] [address] Jul, [facility] [place] [facility] [address] [id number] [place] [address] Jul, [facility] [place] [facility] [address] [id number] [place] [address] Jun, [facility] [place] [facility] [address] [id number] [place] [address] Jun, [facility] [place] [facility] [address] [id number] [place] [address] Jun, [facility] [place] [facility] [address] [id number] [place] [address] May, [facility] [place] [facility] [address] [id number] [place] [address] May, [facility] [place] [facility] [address] [id number] [place] [address] May, [facility] [place] [facility] [address] [id number] [place] [address] May, [facility] [place] [facility] [address] [id number] [place] [address] May, [facility] [place] [facility] [address] [id number] [place] [address] May, [facility] [place] [facility] [address] [facility] [id number] [place] [address] May, [facility] [place] [facility] [address] [facility] [id number] [place] [address] Apr, [facility] [place] [facility] [address] [id number] [place] [address] 17 Apr, 2013 [facility] [place] [facility] [address] [id number] [place] [address] 12 Apr, 2013 [facility] [place] [facility] [address] [id number] [place] [address] 11 Apr, 2013 [facility] [place] [facility] [address] [facility] [id number] [place] [address] 05 Apr, 2013 [facility] [place] [facility] [address] [facility] [id number] [place] [address] Mar, [facility] [place] [facility] [address] [id number] [place] [address] Mar, [facility] [place] [facility] [address] [id number] [place] [address] Mar, [facility] [place] [facility] [address] [id number] [place] [address] Mar, [facility] [place] [facility] [address] [id number] [place] [address] Feb, [facility] [place] [facility] [address] [id number] [place] [address] Feb, [facility] [place] [facility] [address] [id number] [place] [address] Feb, [facility] [place] [facility] [address] [id number] [place] [address] Feb, [facility] [place] [facility] [address] [id number] [place] [address] Feb, [facility] [place] [facility] [address] [id number] [place] [address] Feb, [facility] [place] [facility] [address] [id number] [place] [address] Feb, [facility] [place] [facility] [address] [id number] [place] [address] Feb, [facility] [place] [facility] [address] [id number] [place] [address] Jan, [facility] [place] [facility] [address] [id number] [place] [address] Jan, [facility] [place] [facility] [address] [id number] [place] [address] Jan, [facility] [place] [facility] [address] [id number] [place] [address] Jan, [facility] [place] [facility] [address] [id number] [place] [address] Jan, [facility] [address] [id number] [place] [address] Jan, [facility] [place] [facility] [address] [id number] [place] [address] Jan, [facility] [place] [facility] [address] [id number] [place] [address] December, [facility] [place] [facility] [address] [id number] [place] [address] December, [facility] [address] [id number] [place] [address] 30 Nov, 2012 [facility] [place] [facility] [address] [id number] [place] [address] Nov, [facility] [place] [facility] [address] [id number] [place] [address] Nov, [facility] [place] [facility] [address] [id number] [place] [address] Nov, [facility] [place] [facility] [address] [id number] [place] [address] 24 Nov, 2012 [facility] [place] [facility] [address] [id number] [place] [address] Nov, [facility] [place] [facility] [address] [id number] [place] [address] Nov, [facility] [place] [facility] [address] [id number] [place] [address] 15 Nov, 2012 [facility] [place] [facility] [address] [id number] [place] [address] 11 Nov, 2012 [facility] [place] [facility] [address] [id number] [place] [address] 10 Nov, 2012 [facility] [place] [facility] [address] [id number] [place] [address] 08 Nov, 2012 [facility] [place] [facility] [address] [id number] [place] [address] 05 Nov, 2012 [facility] [address] [id number] [place] [address] Nov, [facility] [place] [facility] [address] [id number] [place] [address] Nov, [facility] [address] [id number] [place] [address] Oct, [facility] [place] [facility] [address] [id number] [place] [address] Oct, [facility] [address] [id number] [place] [address] Oct, [facility] [address] [id number] [place] [address] Oct, [facility] [address] [id number] [place] [address] Oct, [facility] [address] [id number] [place] [address] Oct, [facility] [address] [id number] [place] [address] Oct, [facility] [address] [id number] [place] [address] Oct, [facility] [address] [id number] [place] [address] Oct, [facility] [place] [facility] [address] [id number] [place] [address] Sep, [facility] [place] [facility] [address] [id number] [place] [address] Aug, [facility] [place] [facility] [address] [id number] [place] [address] Aug, [facility] [place] [facility] [address] [id number] [place] [address] Aug, [facility] [place] [facility] [address] [id number] [place] [address] Aug, [facility] [place] [facility] [address] [id number] [place] [address] 31 Jul, 2012 [facility] [place] [facility] [address] [id number] [place] [address] 31 Jul, 2012 [facility] [place] [facility] [address] [id number] [place] [address] Jul, [facility] [address] [id number] [place] [address] 19 Jul, 2012 [facility] [place] [facility] [address] [id number] [place] [address] Jul, [facility] [address] [id number] [place] [address] 15 Jul, 2012 [facility] [place] [facility] [address] [id number] [place] [address] 15 Jul, 2012 [facility] [place] [facility] [address] [id number] [place] [address] 14 Jul, 2012 [facility] [place] [facility] [address] [id number] [place] [address] 14 Jul, 2012 [facility] [place] [facility] [address] [id number] [place] [address] May, [facility] [place] [facility] [address] [id number] [place] [address] 22 May, 2012 [facility] [place] [facility] [address] [id number] [place] [address] 16 May, 2012 [facility] [place] [facility] [address] [id number] [place] [address] 16 May, 2012 [facility] [place] [facility] [address] [id number] [place] [address] 12 May, 2012 [facility] [place] [facility] [address] [id number] [place] [address] May, [facility] [place] [facility] [address] [id number] [place] [address] 27 Apr, 2012 [facility] [place] [facility] [address] [id number] [place] [address] 27 Apr, 2012 [facility] [place] [facility] [address] [id number] [place] [address] 24 Apr, 2012 [facility] [place] [facility] [address] [id number] [place] [address] 18 Apr, 2012 [facility] [place] [facility] [address] [id number] [place] [address] 14 Apr, 2012 [facility] [place] [facility] [address] [id number] [place] [address] 12 Apr, 2012 [facility] [place] [facility] [address] [id number] [place] [address] Mar, [facility] [place] [facility] [address] [id number] [place] [address] Feb, [facility] [place] [facility] [address] [id number] [place] [address] Feb, [facility] [place] [facility] [address] [id number] [place] [address] Feb, [facility] [place] [facility] [address] [id number] [place] [address] Jan, [facility] [place] [facility] [address] [id number] [place] [address] December, [facility] [place] [facility] [address] [id number] [place] [address] December, [facility] [place] [facility] [address] [id number] [place] [address] December, [facility] [place] [facility] [address] [id number] [place] [address] December, [facility] [place] [facility] [address] [id number] [place] [address] December, [facility] [address] [id number] [place] [address] December, [facility] [address] [id number] [place] [address] Nov, [facility] [address] [id number] [place] [address] Nov, [facility] [address] [id number] [place] [address] 17 Nov, 2011 [facility] [address] [id number] [place] [address] Nov, [facility] [address] [id number] [place] [address] 16 Nov, 2011 [facility] [address] [id number] [place] [address] 13 Nov, 2011 [facility] [address] [id number] [place] [address] 12 Nov, 2011 [facility] [address] [id number] [place] [address] Nov, [facility] [address] [id number] [place] [address] 05 Nov, 2011 [facility] [address] [id number] [place] [address] 04 Nov, 2011 [facility] [address] [id number] [place] [address] 30 Oct, 2011 [facility] [place] [facility] [address] [id number] [place] [address] 29 Oct, 2011 [facility] [address] [id number] [place] [address] 28 Oct, 2011 [facility] [address] [id number] [place] [address] Oct, [facility] [place] [facility] [address] [id number] [place] [address] 26 Oct, 2011 [facility] [place] [facility] [address] [id number] [place] [address] 23 Oct, 2011 [facility] [place] [facility] [address] [id number] [place] [address] 21 Oct, 2011 [facility] [place] [facility] [address] [id number] [place] [address] 19 Oct, 2011 [facility] [place] [facility] [address] [id number] [place] [address] 08 Oct, 2011 [facility] [place] [facility] [address] [id number] [place] [address] 07 Oct, 2011 [facility] [place] [facility] [address] [id number] [place] [address] 06 Oct, 2011 [facility] [place] [facility] [address] [id number] [place] [address] 05 Oct, 2011 [facility] [place] [facility] [address] [id number] [place] [address] 16 Sep, 2011 [facility] [place] [facility] [address] [id number] [place] [address] 14 Sep, 2011 [facility] [place] [facility] [address] [id number] [place] [address] 12 Sep, 2011 [facility] [place] [facility] [address] [id number] [place] [address] 10 Sep, 2011 [facility] [place] [facility] [address] [id number] [place] [address] 06 Sep, 2011 [facility] [place] [facility] [address] [id number] [place] [address] 06 Sep, 2011 [facility] [place] [facility] [address] [facility] [id number] [place] [address] 06 Sep, 2011 [facility] [place] [facility] [address] [id number] [place] [address] 06 Sep, 2011 [facility] [address] [id number] [place] [address] Sep, [facility] [address] [id number] [place] [address] 30 Aug, 2011 [facility] [address] [id number] [place] [address] Aug, [facility] [address] [id number] [place] [address] Aug, [facility] [address] [id number] [place] [address] Aug, [facility] [address] [id number] [place] [address] Aug, [facility] [address] [id number] [place] [address] Aug, [facility] [address] [id number] [place] [address] Aug, [facility] [address] [id number] [place] [address] 24 Jul, 2011 [facility] [address] [id number] [place] [address] 16 Jul, 2011 [facility] [address] [id number] [place] [address] 16 Jul, 2011 [facility] [address] [id number] [place] [address] 14 Jul, 2011 [facility] [place] [facility] [address] [id number] [place] [address] 30 Jun, 2011 [facility] [address] [id number] [place] [address] Jun, [facility] [address] [id number] [place] [address] May, [facility] [address] [facility] [id number] [place] [address] Mar, [facility] [address] [facility] [id number] [address] Jan, [facility] [address] [facility] [id number] [place] [address] May, IMMUNIZATIONS No Known Immunizations SOCIAL HISTORY Never Assessed REASON FOR VISIT [facility] [place] VITAL SIGNS MEDICATIONS Unknown [...]
--- OUTSIDE RECORDS SUMMARY | 2019-03-23 07:15 | XMS REPORT ---
Author Author Migration, Doctor Organization [facility] Address Unknown Phone Unavailable Care Team Providers Care Tailor Fitter Name Role Phone Migration, Doctor Unavailable Unavailable PROBLEMS Type Condition ICD9-CM Code [id number] Code Onset Dates Condition Status SNOMED Code Problem Other postablative hypothyroidism 244.1 Active 729894843 Problem Major depressive disorder, recurrent episode, severe, without mention of psychotic behavior 296.33 Active 44047000 ALLERGIES No Information ENCOUNTERS Encounter Location Date Diagnosis [place] [id number] [place] [address] Sep, Unspecified mood [affective] disorder [place] [id number] [place] [address] Aug, Unspecified mood [affective] disorder [place] [id number] [place] [address] Jul, Unspecified mood [affective] disorder 9 [place] [id number] [place] [address] Jun, Unspecified mood [affective] disorder [place] [id number] [place] [address] Mar, Affective disorder 296.90 [place] [id number] [place] [address] Mar, [place] [id number] [place] [address] Feb, Nexplanon removal V25.43 and Initiation of OCP (BCP) V25.01 [place] [id number] [place] [address] Feb, Episodic mood disorder 296.90 [place] [id number] [place] [address] [place] [address] Feb, [facility] [address], [place] [address] Feb, Routine gynecological examination V72.31 ; Pap test, as part of routine gynecological examination V76.2 ; Breast cancer screening V76.10 ; Nexplanon in place V45.52 and Rash 782.1 [facility] [address], [place] [address] Jan, Episodic mood disorder 296.90 [facility] [address], [place] [address] Jan, [facility] [address], [place] [address] December, Episodic mood disorder 296.90 [facility] [address], [place] [address] December, [facility] [address], [place] [address] December, [facility] [address], [place] [address] December, [facility] [address], [place] [address] Nov, [facility] [address], [place] [address] Nov, [facility] [address], [place] [address] Nov, [facility] [address], [place] [address] Oct, [facility] [address], [place] [address] Oct, [facility] [id number], [place] [address] Oct, [facility] [id number] [place] [address] Oct, [facility] [place] [facility] [address] [id number] [place] [address] Oct, [facility] [place] [facility] [address] [id number] [place] [address] Oct, [facility] [place] [facility] [address] [id number] [place] [address] Sep, 2014 [facility] [place] [facility] [address] [id number] [place] [address] Sep, 2014 [facility] [place] [facility] [address] [id number] [place] [address] Sep, 2014 [facility] [place] [facility] [address] [id number] [place] [address] Sep, 2014 [facility] [place] [facility] [address] [id number] [place] [address] Sep, [facility] [place] [facility] [address] [id number] [place] [address] Sep, [facility] [place] [facility] [address] [id number] [place] [address] Aug, [facility] [place] [facility] [address] [id number] [place] [address] Aug, [facility] [place] [facility] [address] [id number] [place] [address] Aug, [facility] [place] [facility] [address] [id number] [place] [address] Aug, [facility] [place] [facility] [address] [id number] [place] [address] Aug, [facility] [place] [facility] [address] [id number] [place] [address] Aug, [facility] [place] [facility] [address] [id number] [place] [address] Aug, [facility] [place] [facility] [address] [id number] [place] [address] 14 Aug, 2014 [facility] [place] [facility] [address] [id number] [place] [address] Aug, [facility] [place] [facility] [address] [id number] [place] [address] Aug, [facility] [place] [facility] [address] [id number] [place] [address] Aug, [facility] [place] [facility] [address] [id number] [place] [address] Aug, [facility] [place] [facility] [address] [id number] [place] [address] Aug, [facility] [place] [facility] [address] [id number] [place] [address] Aug, [facility] [place] [facility] [address] [id number] [place] [address] Aug, [facility] [place] [facility] [address] [id number] [place] [address] Aug, [facility] [place] [facility] [address] [id number] [place] [address] Jul, [facility] [place] [facility] [address] [id number] [address] 15 Jul, 2014 [facility] [place] [facility] [address] [id number], [place] [address] 15 Jul, 2014 [facility] [place] [facility] [address] [id number] [place] [address] Jul, [facility] [place] [facility] [address] [id number] [place] [address] Jul, [facility] [place] [facility] [address] [id number] [place] [address] Jul, [facility] [place] [facility] [address] [id number] [place] [address] 11 Jul, 2014 [facility] [place] [facility] [address] [id number] [place] [address] Jul, [facility] [place] [facility] [address] [id number] [place] [address] Jul, [facility] [place] [facility] [address] [id number] [place] [address] 05 Jul, 2014 [facility] [place] [facility] [address] [id number] [place] [address] 05 Jul, 2014 [facility] [place] [facility] [address] [id number] [place] [address] Jul, [facility] [place] [facility] [address] [id number] [place] [address] Jul, [facility] [place] [facility] [address] [id number] [place] [address] Jun, [facility] [place] [facility] [address] [id number] [place] [address] Jun, [facility] [place] [facility] [address] [id number] [place] [address] Jun, [facility] [place] [facility] [address] [facility] [id number] [place] [address] Jun, [facility] [place] [facility] [address] [id number] [place] [address] Jun, [facility] [place] [facility] [address] [id number] [place] [address] Jun, [facility] [place] [facility] [address] [id number] [place] [address] Jun, [facility] [place] [facility] [address] [id number] [place] [address] Jun, [facility] [place] [facility] [address] [id number], [place] [address] Jun, [facility] [place] [facility] [address] [id number] [place] [address] Jun, [facility] [place] [facility] [address] [id number] [place] [address] Jun, [facility] [place] [facility] [address] [id number] [place] [address] Jun, [facility] [place] [facility] [address] [id number] [place] [address] Jun, [facility] [place] [facility] [address] [id number] [place] [address] Jun, [facility] [place] [facility] [address] [id number] [place] [address] May, [facility] [place] [facility] [address] [id number] [place] [address] May, [facility] [place] [facility] [address] [id number] [place] [address] May, [facility] [place] [facility] [address] [id number] [place] [address] May, [facility] [place] [facility] [address] [id number] [place] [address] May, [facility] [place] [facility] [address] [id number] [place] [address] May, [facility] [place] [facility] [address] [id number] [place] [address] May, [facility] [place] [facility] [address] [id number] [place] [address] May, [facility] [place] [facility] [address] [id number] [place] [address] May, [facility] [place] [facility] [address] [id number] [place] [address] May, [facility] [place] [facility] [address] [id number] [place] [address] 30 Sep, 2013 [facility] [place] [facility] [address] [id number] [place] [address] 30 Sep, 2013 [facility] [place] [facility] [address] [id number] [place] [address] 19 Sep, 2013 [facility] [place] [facility] [address] [id number] [place] [address] 19 Sep, 2013 [facility] [place] [facility] [address] [id number] [place] [address] 18 Sep, 2013 [facility] [place] [facility] [address] [id number] [place] [address] 18 Sep, 2013 [facility] [place] [facility] [address] [id number] [place] [address] 18 Sep, 2013 [facility] [place] [facility] [address] [id number] [place] [address] 18 Sep, 2013 [facility] [place] [facility] [address] [id number] [place] [address] 16 Sep, 2013 [facility] [place] [facility] [address] [id number] [place] [address] 16 Sep, 2013 [facility] [place] [facility] [address] [id number] [place] [address] 08 Sep, 2013 [facility] [place] [facility] [address] [id number] [place] [address] 08 Sep, 2013 [facility] [place] [facility] [address] [id number] [place] [address] 08 Sep, 2013 [facility] [place] [facility] [address] [id number] [place] [address] 08 Sep, 2013 [facility] [place] [facility] [address] [id number] [place] [address] 04 Sep, 2013 [facility] [place] [facility] [address] [id number] [place] [address] 04 Sep, 2013 [facility] [place] [facility] [address] [id number] [place] [address] Mar, [facility] [place] [facility] [address] [id number] [place] [address] Mar, [facility] [place] [facility] [address] [id number] [place] [address] Mar, [facility] [place] [facility] [address] [id number] [place] [address] Jan, [facility] [place] [facility] [address] [id number] [place] [address] 23 Jan, 2014 [facility] [place] [facility] [address] [id number] [place] [address] Jan, [facility] [place] [facility] [address] [id number] [place] [address] 18 Jan, 2014 [facility] [place] [facility] [address] [id number] [place] [address] 16 Jan, 2014 [facility] [place] [facility] [address] [id number] [place] [address] 16 Jan, 2014 [facility] [place] [facility] [address] [id number] [place] [address] 16 Jan, 2014 [facility] [place] [facility] [address] [id number] [place] [address] 16 Jan, 2014 [facility] [place] [facility] [address] [id number] [place] [address] Jan, [facility] [place] [facility] [address] [id number] [place] [address] Jan, [facility] [place] [facility] [address] [id number] [place] [address] Jan, [facility] [place] [facility] [address] [id number] [place] [address] 11 Jan, 2014 [facility] [place] [facility] [address] [id number] [place] [address] Jan, [facility] [place] [facility] [address] [id number] [place] [address] Jan, [facility] [place] [facility] [address] [id number] [place] [address] Jan, [facility] [place] [facility] [address] [id number] [place] [address] Jan, [facility] [place] [facility] [address] [id number] [place] [address] December, [facility] [place] [facility] [address] [id number] [place] [address] December, [facility] [place] [facility] [address] [id number] [place] [address] December, [facility] [place] [facility] [address] [id number] [place] [address] December, [facility] [place] [facility] [address] [id number] [place] [address] December, [facility] [place] [facility] [address] [id number] [place] [address] Nov, [facility] [place] [facility] [address] [id number] [place] [address] Nov, [facility] [place] [facility] [address] [id number] [place] [address] Nov, [facility] [place] [facility] [address] [id number] [place] [address] Nov, [facility] [place] [facility] [address] [id number] [place] [address] Nov, [facility] [place] [facility] [address] [id number] [place] [address] Nov, [facility] [place] [facility] [address] [id number] [place] [address] Nov, [facility] [place] [facility] [address] [id number], [place] [address] 24 Nov, 2013 [facility] [place] [facility] [address] [id number] [place] [address] Nov, [facility] [place] [facility] [address] [id number] [place] [address] Nov, [facility] [place] [facility] [address] [facility] [id number] [place] [address] Oct, [facility] [place] [facility] [address] [id number] [place] [address] Oct, [facility] [place] [facility] [address] [id number] [place] [address] Oct, [facility] [place] [facility] [address] [id number] [place] [address] Oct, [facility] [place] [facility] [address] [facility] [id number] [place] [address] Oct, [facility] [place] [facility] [address] [id number] [place] [address] Oct, [facility] [place] [facility] [address] [id number] [place] [address] Oct, [facility] [place] [facility] [address] [facility] [id number] [place] [address] Oct, [facility] [place] [facility] [address] [id number] [place] [address] Oct, [facility] [place] [facility] [address] [id number] [place] [address] Sep, [facility] [place] [facility] [address] [id number] [place] [address] Sep, [facility] [place] [facility] [address] [id number] [place] [address] Sep, [facility] [place] [facility] [address] [facility] [id number] [place] [address] Sep, [facility] [place] [facility] [address] [id number] [place] [address] Sep, [facility] [place] [facility] [address] [id number] [place] [address] Sep, [facility] [place] [facility] [address] [id number] [place] [address] Sep, [facility] [place] [facility] [address] [id number] [place] [address] Aug, [facility] [place] [facility] [address] [id number] [place] [address] Aug, [facility] [place] [facility] [address] [id number] [place] [address] Aug, [facility] [place] [facility] [address] [id number] [place] [address] Aug, [facility] [place] [facility] [address] [id number] [place] [address] Aug, [facility] [place] [facility] [address] [id number] [place] [address] Aug, [facility] [place] [facility] [address] [id number] [place] [address] Aug, [facility] [place] [facility] [address] [id number] [place] [address] Aug, [facility] [place] [facility] [address] [id number], [place] [address] Jul, [facility] [place] [facility] [address] [id number] [place] [address] Jul, [facility] [place] [facility] [address] [id number] [place] [address] Jul, [facility] [place] [facility] [address] [id number], [place] [address] Jul, [facility] [place] [facility] [address] [id number], [place] [address] Jun, [facility] [place] [facility] [address] [id number] [place] [address] Jun, [facility] [place] [facility] [address] [id number] [place] [address] Jun, [facility] [place] [facility] [address] [id number] [place] [address] May, [facility] [place] [facility] [address] [id number] [place] [address] May, [facility] [place] [facility] [address] [id number] [place] [address] May, [facility] [place] [facility] [address] [id number] [place] [address] May, [facility] [place] [facility] [address] [id number] [place] [address] May, [facility] [place] [facility] [address] [id number] [place] [address] May, [facility] [place] [facility] [address] [facility] [id number] [place] [address] May, [facility] [place] [facility] [address] [facility] [id number] [place] [address] Apr, [facility] [place] [facility] [address] [id number], [place] [address] 17 Apr, 2013 [facility] [place] [facility] [address] [id number], [place] [address] 12 Apr, 2013 [facility] [place] [facility] [address] [id number] [place] [address] 11 Apr, 2013 [facility] [place] [facility] [address] [facility] [id number] [place] [address] 05 Apr, 2013 [facility] [place] [facility] [address] [facility] [id number] [place] [address] Mar, [facility] [place] [facility] [address] [id number] [place] [address] Mar, [facility] [place] [facility] [address] [id number] [place] [address] Mar, [facility] [place] [facility] [address] [id number] [place] [address] Mar, [facility] [place] [facility] [address] [id number] [place] [address] Feb, [facility] [place] [facility] [address] [id number] [place] [address] Feb, [facility] [place] [facility] [address] [id number] [place] [address] Feb, [facility] [place] [facility] [address] [id number] [place] [address] Feb, [facility] [place] [facility] [address] [id number] [place] [address] Feb, [facility] [place] [facility] [address] [id number] [place] [address] Feb, [facility] [place] [facility] [address] [id number] [place] [address] Feb, [facility] [place] [facility] [address] [id number] [place] [address] Feb, [facility] [place] [facility] [address] [id number] [place] [address] Jan, [facility] [place] [facility] [address] [id number] [place] [address] Jan, [facility] [place] [facility] [address] [id number] [place] [address] Jan, [facility] [place] [facility] [address] [id number] [place] [address] Jan, [facility] [place] [facility] [address] [id number] [place] [address] Jan, [facility] [address] [id number] [place] [address] Jan, [facility] [place] [facility] [address] [id number] [place] [address] Jan, [facility] [place] [facility] [address] [id number] [place] [address] December, [facility] [place] [facility] [address] [id number] [place] [address] December, [facility] [address] [id number] [place] [address] 30 Nov, 2012 [facility] [place] [facility] [address] [id number] [place] [address] Nov, [facility] [place] [facility] [address] [id number] [place] [address] Nov, [facility] [place] [facility] [address] [id number] [place] [address] Nov, [facility] [place] [facility] [address] [id number] [place] [address] 24 Nov, 2012 [facility] [place] [facility] [address] [id number] [place] [address] Nov, [facility] [place] [facility] [address] [id number] [place] [address] Nov, [facility] [place] [facility] [address] [id number], [place] [address] 15 Nov, 2012 [facility] [place] [facility] [address] [id number] [place] [address] 11 Nov, 2012 [facility] [place] [facility] [address] [id number] [place] [address] 10 Nov, 2012 [facility] [place] [facility] [address] [id number] [place] [address] 08 Nov, 2012 [facility] [place] [facility] [address] [id number] [place] [address] 05 Nov, 2012 [facility] [address] [id number] [place] [address] Nov, [facility] [place] [facility] [address] [id number] [place] [address] Nov, [facility] [address] [id number] [place] [address] Oct, [facility] [place] [facility] [address] [id number] [place] [address] Oct, [facility] [address] [id number] [place] [address] Oct, [facility] [address] [id number] [place] [address] Oct, [facility] [address] [id number] [place] [address] Oct, [facility] [address] [id number] [place] [address] Oct, [facility] [address] [id number] [place] [address] Oct, [facility] [address] [id number] [place] [address] Oct, [facility] [address] [id number] [place] [address] Oct, [facility] [place] [facility] [address] [id number] [place] [address] Sep, [facility] [place] [facility] [address] [id number] [place] [address] Aug, [facility] [place] [facility] [address] [id number] [place] [address] Aug, [facility] [place] [facility] [address] [id number] [place] [address] Aug, [facility] [place] [facility] [address] [id number] [place] [address] Aug, [facility] [place] [facility] [address] [id number] [place] [address] 31 Jul, 2012 [facility] [place] [facility] [address] [id number] [place] [address] 31 Jul, 2012 [facility] [place] [facility] [address] [id number] [place] [address] Jul, [facility] [address] [id number] [place] [address] 19 Jul, 2012 [facility] [place] [facility] [address] [id number] [place] [address] Jul, [facility] [address] [id number] [place] [address] 15 Jul, 2012 [facility] [place] [facility] [address] [id number] [place] [address] 15 Jul, 2012 [facility] [place] [facility] [address] [id number] [place] [address] 14 Jul, 2012 [facility] [place] [facility] [address] [id number] [place] [address] 14 Jul, 2012 [facility] [place] [facility] [address] [id number] [place] [address] May, [facility] [place] [facility] [address] [id number] [place] [address] 22 May, 2012 [facility] [place] [facility] [address] [id number] [place] [address] 16 May, 2012 [facility] [place] [facility] [address] [id number] [place] [address] 16 May, 2012 [facility] [place] [facility] [address] [id number] [place] [address] 12 May, 2012 [facility] [place] [facility] [address] [id number] [place] [address] May, [facility] [place] [facility] [address] [id number] [place] [address] 27 Apr, 2012 [facility] [place] [facility] [address] [id number] [place] [address] 27 Apr, 2012 [facility] [place] [facility] [address] [id number] [place] [address] 24 Apr, 2012 [facility] [place] [facility] [address] [id number] [place] [address] 18 Apr, 2012 [facility] [place] [facility] [address] [id number] [place] [address] 14 Apr, 2012 [facility] [place] [facility] [address] [id number] [place] [address] 12 Apr, 2012 [facility] [place] [facility] [address] [id number] [place] [address] Mar, [facility] [place] [facility] [address] [id number] [place] [address] Feb, [facility] [place] [facility] [address] [id number] [place] [address] Feb, [facility] [place] [facility] [address] [id number] [place] [address] Feb, [facility] [place] [facility] [address] [id number] [place] [address] Jan, [facility] [place] [facility] [address] [id number] [place] [address] December, [facility] [place] [facility] [address] [id number] [place] [address] December, [facility] [place] [facility] [address] [id number] [place] [address] December, [facility] [place] [facility] [address] [id number] [place] [address] December, [facility] [place] [facility] [address] [id number] [place] [address] December, [facility] [address] [id number] [place] [address] December, [facility] [address] [id number] [place] [address] Nov, [facility] [address] [id number] [place] [address] Nov, [facility] [address] [id number] [place] [address] 17 Nov, 2011 [facility] [address] [id number] [place] [address] Nov, [facility] [address] [id number] [place] [address] 16 Nov, 2011 [facility] [address] [id number] [place] [address] 13 Nov, 2011 [facility] [address] [id number] [place] [address] 12 Nov, 2011 [facility] [address] [id number] [place] [address] Nov, [facility] [address] [id number] [place] [address] 05 Nov, 2011 [facility] [address] [id number] [place] [address] 04 Nov, 2011 [facility] [address] [id number] [place] [address] 30 Oct, 2011 [facility] [place] [facility] [address] [id number] [place] [address] 29 Oct, 2011 [facility] [address] [id number] [place] [address] 28 Oct, 2011 [facility] [address] [id number] [place] [address] Oct, [facility] [place] [facility] [address] [id number] [place] [address] 26 Oct, 2011 [facility] [place] [facility] [address] [id number] [place] [address] 23 Oct, 2011 [facility] [place] [facility] [address] [id number] [place] [address] 21 Oct, 2011 [facility] [place] [facility] [address] [id number] [place] [address] 19 Oct, 2011 [facility] [place] [facility] [address] [id number] [place] [address] 08 Oct, 2011 [facility] [place] [facility] [address] [id number] [place] [address] 07 Oct, 2011 [facility] [place] [facility] [address] [id number] [place] [address] 06 Oct, 2011 [facility] [place] [facility] [address] [id number] [place] [address] 05 Oct, 2011 [facility] [place] [facility] [address] [id number] [place] [address] 16 Sep, 2011 [facility] [place] [facility] [address] [id number] [place] [address] 14 Sep, 2011 [facility] [place] [facility] [address] [id number] [place] [address] 12 Sep, 2011 [facility] [place] [facility] [address] [id number] [place] [address] 10 Sep, 2011 [facility] [place] [facility] [address] [id number] [place] [address] 06 Sep, 2011 [facility] [place] [facility] [address] [id number] [place] [address] 06 Sep, 2011 [facility] [place] [facility] [address] [facility] [id number] [place] [address] 06 Sep, 2011 [facility] [place] [facility] [address] [id number] [place] [address] 06 Sep, 2011 [facility] [address] [id number] [place] [address] Sep, [facility] [address] [id number] [place] [address] 30 Aug, 2011 [facility] [address] [id number] [place] [address] Aug, [facility] [address] [id number] [place] [address] Aug, [facility] [address] [id number] [place] [address] Aug, [facility] [address] [id number] [place] [address] Aug, [facility] [address] [id number] [place] [address] Aug, [facility] [address] [id number] [place] [address] Aug, [facility] [address] [id number] [place] [address] 24 Jul, 2011 [facility] [address] [id number] [place] [address] 16 Jul, 2011 [facility] [address] [id number] [place] [address] 16 Jul, 2011 [facility] [address] [id number] [place] [address] 14 Jul, 2011 [facility] [place] [facility] [address] [id number] [place] [address] 30 Jun, 2011 [facility] [address] [id number] [place] [address] Jun, [facility] [address] [id number] [place] [address] May, [facility] [address] [facility] [id number] [place] [address] Mar, [facility] [address] [facility] [id number] [address] Jan, [facility] [address] [facility] [id number] [place] [address] May, IMMUNIZATIONS No Known Immunizations SOCIAL HISTORY Never Assessed REASON FOR VISIT [facility] [facility] [place] VITAL SIGNS MEDICATIONS [...]
--- OUTSIDE RECORDS SUMMARY | 2019-03-23 07:15 | XMS REPORT ---
Author Author Migration, Doctor Organization [facility] Address Unknown Phone Unavailable Care Team Providers Care Compressor Operator Adjuster Name Role Phone Migration, Doctor Unavailable Unavailable PROBLEMS Type Condition ICD9-CM Code [id number] Code Onset Dates Condition Status SNOMED Code Problem Other postablative hypothyroidism 244.1 Active 659852630 Problem Major depressive disorder, recurrent episode, severe, without mention of psychotic behavior 296.33 Active [id number] ALLERGIES No Information ENCOUNTERS Encounter Location Date Diagnosis [place] [id number] [place] [address] Sep, Unspecified mood [affective] disorder [place] [id number] [place] [address] Aug, Unspecified mood [affective] disorder [place] [id number] [place] [address] Jul, Unspecified mood [affective] disorder 9 [place] [id number] [place] [address] Jun, Unspecified mood [affective] disorder [place] [id number] [place] [address] Mar, Affective disorder 296.90 [place] [id number] [place] [address] Mar, [place] [id number] [place] [address] Feb, Nexplanon removal V25.43 and Initiation of OCP (BCP) V25.01 [place] [id number] [place] [address] Feb, Episodic mood disorder 296.90 [place] [id number] [place] [address] [place] [address] Feb, [facility] [address] [address] Feb, Routine gynecological examination V72.31 ; Pap test, as part of routine gynecological examination V76.2 ; Breast cancer screening V76.10 ; Nexplanon in place V45.52 and Rash 782.1 [facility] [address] [address] Jan, Episodic mood disorder 296.90 [facility] [address] [address] Jan, [facility] [address] [address] December, Episodic mood disorder 296.90 [facility] [address] [address] December, [facility] [address] [address] December, [facility] [address] [address] December, [facility] [address] [address] Nov, [facility] [address] [address] Nov, [facility] [address] [address] Nov, [facility] [address] [address] Oct, [facility] [id number] [address] Oct, [facility] [id number] [address] Oct, [facility] [id number] [place] [address] Oct, [facility] [place] [facility] [address] [id number] [place] [address] Oct, [facility] [place] [facility] [address] [id number] [place] [address] Oct, [facility] [place] [facility] [address] [id number] [place] [address] Sep, 2014 [facility] [place] [facility] [address] [id number] [place] [address] Sep, 2014 [facility] [place] [facility] [address] [id number] [place] [address] Sep, 2014 [facility] [place] [facility] [address] [id number] [place] [address] Sep, 2014 [facility] [place] [facility] [address] [id number] [place] [address] Sep, [facility] [place] [facility] [address] [id number] [place] [address] Sep, [facility] [place] [facility] [address] [id number] [place] [address] Aug, [facility] [place] [facility] [address] [id number] [place] [address] Aug, [facility] [place] [facility] [address] [id number] [place] [address] Aug, [facility] [place] [facility] [address] [id number] [place] [address] Aug, [facility] [place] [facility] [address] [id number] [place] [address] Aug, [facility] [place] [facility] [address] [id number] [place] [address] Aug, [facility] [place] [facility] [address] [id number] [place] [address] Aug, [facility] [place] [facility] [address] [id number] [place] [address] 14 Aug, 2014 [facility] [place] [facility] [address] [id number] [place] [address] Aug, [facility] [place] [facility] [address] [id number] [place] [address] Aug, [facility] [place] [facility] [address] [id number] [place] [address] Aug, [facility] [place] [facility] [address] [id number] [place] [address] Aug, [facility] [place] [facility] [address] [id number] [place] [address] Aug, [facility] [place] [facility] [address] [id number] [place] [address] Aug, [facility] [place] [facility] [address] [id number] [place] [address] Aug, [facility] [place] [facility] [address] [id number] [place] [address] Aug, [facility] [place] [facility] [address] [id number] [place] [address] Jul, [facility] [place] [facility] [address] [id number] [address] 15 Jul, 2014 [facility] [place] [facility] [address] [id number] [address] 15 Jul, 2014 [facility] [place] [facility] [address] [id number] [place] [address] Jul, [facility] [place] [facility] [address] [id number] [place] [address] Jul, [facility] [place] [facility] [address] [id number] [place] [address] Jul, [facility] [place] [facility] [address] [id number] [place] [address] 11 Jul, 2014 [facility] [place] [facility] [address] [id number] [place] [address] Jul, [facility] [place] [facility] [address] [id number] [place] [address] Jul, [facility] [place] [facility] [address] [id number] [place] [address] 05 Jul, 2014 [facility] [place] [facility] [address] [id number] [place] [address] 05 Jul, 2014 [facility] [place] [facility] [address] [id number] [place] [address] Jul, [facility] [place] [facility] [address] [id number] [place] [address] Jul, [facility] [place] [facility] [address] [id number] [place] [address] Jun, [facility] [place] [facility] [address] [id number] [place] [address] Jun, [facility] [place] [facility] [address] [id number] [place] [address] Jun, [facility] [place] [facility] [address] [facility] [id number] [place] [address] Jun, [facility] [place] [facility] [address] [id number] [place] [address] Jun, [facility] [place] [facility] [address] [id number] [place] [address] Jun, [facility] [place] [facility] [address] [id number] [place] [address] Jun, [facility] [place] [facility] [address] [id number] [place] [address] Jun, [facility] [place] [facility] [address] [id number] [address] Jun, [facility] [place] [facility] [address] [id number] [place] [address] Jun, [facility] [place] [facility] [address] [id number] [place] [address] Jun, [facility] [place] [facility] [address] [id number] [place] [address] Jun, [facility] [place] [facility] [address] [id number] [place] [address] Jun, [facility] [place] [facility] [address] [id number] [place] [address] Jun, [facility] [place] [facility] [address] [id number] [place] [address] May, [facility] [place] [facility] [address] [id number] [place] [address] May, [facility] [place] [facility] [address] [id number] [place] [address] May, [facility] [place] [facility] [address] [id number] [place] [address] May, [facility] [place] [facility] [address] [id number] [place] [address] May, [facility] [place] [facility] [address] [id number] [place] [address] May, [facility] [place] [facility] [address] [id number] [place] [address] May, [facility] [place] [facility] [address] [id number] [place] [address] May, [facility] [place] [facility] [address] [id number] [place] [address] May, [facility] [place] [facility] [address] [id number] [place] [address] May, [facility] [place] [facility] [address] [id number] [place] [address] 30 Sep, 2013 [facility] [place] [facility] [address] [id number] [place] [address] 30 Sep, 2013 [facility] [place] [facility] [address] [id number] [place] [address] 19 Sep, 2013 [facility] [place] [facility] [address] [id number] [place] [address] 19 Sep, 2013 [facility] [place] [facility] [address] [id number] [place] [address] 18 Sep, 2013 [facility] [place] [facility] [address] [id number] [place] [address] 18 Sep, 2013 [facility] [place] [facility] [address] [id number] [place] [address] 18 Sep, 2013 [facility] [place] [facility] [address] [id number] [place] [address] 18 Sep, 2013 [facility] [place] [facility] [address] [id number] [place] [address] 16 Sep, 2013 [facility] [place] [facility] [address] [id number] [place] [address] 16 Sep, 2013 [facility] [place] [facility] [address] [id number] [place] [address] 08 Sep, 2013 [facility] [place] [facility] [address] [id number] [place] [address] 08 Sep, 2013 [facility] [place] [facility] [address] [id number] [place] [address] 08 Sep, 2013 [facility] [place] [facility] [address] [id number] [place] [address] 08 Sep, 2013 [facility] [place] [facility] [address] [id number] [place] [address] 04 Sep, 2013 [facility] [place] [facility] [address] [id number] [place] [address] 04 Sep, 2013 [facility] [place] [facility] [address] [id number] [place] [address] Mar, [facility] [place] [facility] [address] [id number] [place] [address] Mar, [facility] [place] [facility] [address] [id number] [place] [address] Mar, [facility] [place] [facility] [address] [id number] [place] [address] Jan, [facility] [place] [facility] [address] [id number] [place] [address] 23 Jan, 2014 [facility] [place] [facility] [address] [id number] [place] [address] Jan, [facility] [place] [facility] [address] [id number] [place] [address] 18 Jan, 2014 [facility] [place] [facility] [address] [id number] [place] [address] 16 Jan, 2014 [facility] [place] [facility] [address] [id number] [place] [address] 16 Jan, 2014 [facility] [place] [facility] [address] [id number] [place] [address] 16 Jan, 2014 [facility] [place] [facility] [address] [id number] [place] [address] 16 Jan, 2014 [facility] [place] [facility] [address] [id number] [place] [address] Jan, [facility] [place] [facility] [address] [id number] [place] [address] Jan, [facility] [place] [facility] [address] [id number] [place] [address] Jan, [facility] [place] [facility] [address] [id number] [place] [address] 11 Jan, 2014 [facility] [place] [facility] [address] [id number] [place] [address] Jan, [facility] [place] [facility] [address] [id number] [place] [address] Jan, [facility] [place] [facility] [address] [id number] [place] [address] Jan, [facility] [place] [facility] [address] [id number] [place] [address] Jan, [facility] [place] [facility] [address] [id number] [place] [address] December, [facility] [place] [facility] [address] [id number] [place] [address] December, [facility] [place] [facility] [address] [id number] [place] [address] December, [facility] [place] [facility] [address] [id number] [place] [address] December, [facility] [place] [facility] [address] [id number] [place] [address] December, [facility] [place] [facility] [address] [id number] [place] [address] Nov, [facility] [place] [facility] [address] [id number] [place] [address] Nov, [facility] [place] [facility] [address] [id number] [place] [address] Nov, [facility] [place] [facility] [address] [id number] [place] [address] Nov, [facility] [place] [facility] [address] [id number] [place] [address] Nov, [facility] [place] [facility] [address] [id number] [place] [address] Nov, [facility] [place] [facility] [address] [id number] [place] [address] Nov, [facility] [place] [facility] [address] [id number] [address] 24 Nov, 2013 [facility] [place] [facility] [address] [id number] [place] [address] Nov, [facility] [place] [facility] [address] [id number] [place] [address] Nov, [facility] [place] [facility] [address] [facility] [id number] [place] [address] Oct, [facility] [place] [facility] [address] [id number] [place] [address] Oct, [facility] [place] [facility] [address] [id number] [place] [address] Oct, [facility] [place] [facility] [address] [id number] [place] [address] Oct, [facility] [place] [facility] [address] [facility] [id number] [place] [address] Oct, [facility] [place] [facility] [address] [id number] [place] [address] Oct, [facility] [place] [facility] [address] [id number] [place] [address] Oct, [facility] [place] [facility] [address] [facility] [id number] [place] [address] Oct, [facility] [place] [facility] [address] [id number] [place] [address] Oct, [facility] [place] [facility] [address] [id number] [place] [address] Sep, [facility] [place] [facility] [address] [id number] [place] [address] Sep, [facility] [place] [facility] [address] [id number] [place] [address] Sep, [facility] [place] [facility] [address] [facility] [id number] [place] [address] Sep, [facility] [place] [facility] [address] [id number] [place] [address] Sep, [facility] [place] [facility] [address] [id number] [place] [address] Sep, [facility] [place] [facility] [address] [id number] [place] [address] Sep, [facility] [place] [facility] [address] [id number] [place] [address] Aug, [facility] [place] [facility] [address] [id number] [place] [address] Aug, [facility] [place] [facility] [address] [id number] [place] [address] Aug, [facility] [place] [facility] [address] [id number] [place] [address] Aug, [facility] [place] [facility] [address] [id number] [place] [address] Aug, [facility] [place] [facility] [address] [id number] [place] [address] Aug, [facility] [place] [facility] [address] [id number] [place] [address] Aug, [facility] [place] [facility] [address] [id number] [place] [address] Aug, [facility] [place] [facility] [address] [id number] [address] Jul, [facility] [place] [facility] [address] [id number] [place] [address] Jul, [facility] [place] [facility] [address] [id number] [place] [address] Jul, [facility] [place] [facility] [address] [id number] [address] Jul, [facility] [place] [facility] [address] [id number] [address] Jun, [facility] [place] [facility] [address] [id number] [place] [address] Jun, [facility] [place] [facility] [address] [id number] [place] [address] Jun, [facility] [place] [facility] [address] [id number] [place] [address] May, [facility] [place] [facility] [address] [id number] [place] [address] May, [facility] [place] [facility] [address] [id number] [place] [address] May, [facility] [place] [facility] [address] [id number] [place] [address] May, [facility] [place] [facility] [address] [id number] [place] [address] May, [facility] [place] [facility] [address] [id number] [place] [address] May, [facility] [place] [facility] [address] [facility] [id number] [place] [address] May, [facility] [place] [facility] [address] [facility] [id number] [place] [address] Apr, [facility] [place] [facility] [address] [id number] [address] 17 Apr, 2013 [facility] [place] [facility] [address] [id number] [address] 12 Apr, 2013 [facility] [place] [facility] [address] [id number] [place] [address] 11 Apr, 2013 [facility] [place] [facility] [address] [facility] [id number] [place] [address] 05 Apr, 2013 [facility] [place] [facility] [address] [facility] [id number] [place] [address] Mar, [facility] [place] [facility] [address] [id number] [place] [address] Mar, [facility] [place] [facility] [address] [id number] [place] [address] Mar, [facility] [place] [facility] [address] [id number] [place] [address] Mar, [facility] [place] [facility] [address] [id number] [place] [address] Feb, [facility] [place] [facility] [address] [id number] [place] [address] Feb, [facility] [place] [facility] [address] [id number] [place] [address] Feb, [facility] [place] [facility] [address] [id number] [place] [address] Feb, [facility] [place] [facility] [address] [id number] [place] [address] Feb, [facility] [place] [facility] [address] [id number] [place] [address] Feb, [facility] [place] [facility] [address] [id number] [place] [address] Feb, [facility] [place] [facility] [address] [id number] [place] [address] Feb, [facility] [place] [facility] [address] [id number] [place] [address] Jan, [facility] [place] [facility] [address] [id number] [place] [address] Jan, [facility] [place] [facility] [address] [id number] [place] [address] Jan, [facility] [place] [facility] [address] [id number] [place] [address] Jan, [facility] [place] [facility] [address] [id number] [place] [address] Jan, [facility] [address] [id number] [place] [address] Jan, [facility] [place] [facility] [address] [id number] [place] [address] Jan, [facility] [place] [facility] [address] [id number] [place] [address] December, [facility] [place] [facility] [address] [id number] [place] [address] December, [facility] [address] [id number] [place] [address] 30 Nov, 2012 [facility] [place] [facility] [address] [id number] [place] [address] Nov, [facility] [place] [facility] [address] [id number] [place] [address] Nov, [facility] [place] [facility] [address] [id number] [place] [address] Nov, [facility] [place] [facility] [address] [id number] [place] [address] 24 Nov, 2012 [facility] [place] [facility] [address] [id number] [place] [address] Nov, [facility] [place] [facility] [address] [id number] [place] [address] Nov, [facility] [place] [facility] [address] [id number] [address] 15 Nov, 2012 [facility] [place] [facility] [address] [id number] [place] [address] 11 Nov, 2012 [facility] [place] [facility] [address] [id number] [place] [address] 10 Nov, 2012 [facility] [place] [facility] [address] [id number] [place] [address] 08 Nov, 2012 [facility] [place] [facility] [address] [id number] [place] [address] 05 Nov, 2012 [facility] [address] [id number] [place] [address] Nov, [facility] [place] [facility] [address] [id number] [place] [address] Nov, [facility] [address] [id number] [place] [address] Oct, [facility] [place] [facility] [address] [id number] [place] [address] Oct, [facility] [address] [id number] [place] [address] Oct, [facility] [address] [id number] [place] [address] Oct, [facility] [address] [id number] [place] [address] Oct, [facility] [address] [id number] [place] [address] Oct, [facility] [address] [id number] [place] [address] Oct, [facility] [address] [id number] [place] [address] Oct, [facility] [address] [id number] [place] [address] Oct, [facility] [place] [facility] [address] [id number] [place] [address] Sep, [facility] [place] [facility] [address] [id number] [place] [address] Aug, [facility] [place] [facility] [address] [id number] [place] [address] Aug, [facility] [place] [facility] [address] [id number] [place] [address] Aug, [facility] [place] [facility] [address] [id number] [place] [address] Aug, [facility] [place] [facility] [address] [id number] [place] [address] 31 Jul, 2012 [facility] [place] [facility] [address] [id number] [place] [address] 31 Jul, 2012 [facility] [place] [facility] [address] [id number] [place] [address] Jul, [facility] [address] [id number] [place] [address] 19 Jul, 2012 [facility] [place] [facility] [address] [id number] [place] [address] Jul, [facility] [address] [id number] [place] [address] 15 Jul, 2012 [facility] [place] [facility] [address] [id number] [place] [address] 15 Jul, 2012 [facility] [place] [facility] [address] [id number] [place] [address] 14 Jul, 2012 [facility] [place] [facility] [address] [id number] [place] [address] 14 Jul, 2012 [facility] [place] [facility] [address] [id number] [place] [address] May, [facility] [place] [facility] [address] [id number] [place] [address] 22 May, 2012 [facility] [place] [facility] [address] [id number] [place] [address] 16 May, 2012 [facility] [place] [facility] [address] [id number] [place] [address] 16 May, 2012 [facility] [place] [facility] [address] [id number] [place] [address] 12 May, 2012 [facility] [place] [facility] [address] [id number] [place] [address] May, [facility] [place] [facility] [address] [id number] [place] [address] 27 Apr, 2012 [facility] [place] [facility] [address] [id number] [place] [address] 27 Apr, 2012 [facility] [place] [facility] [address] [id number] [place] [address] 24 Apr, 2012 [facility] [place] [facility] [address] [id number] [place] [address] 18 Apr, 2012 [facility] [place] [facility] [address] [id number] [place] [address] 14 Apr, 2012 [facility] [place] [facility] [address] [id number] [place] [address] 12 Apr, 2012 [facility] [place] [facility] [address] [id number] [place] [address] Mar, [facility] [place] [facility] [address] [id number] [place] [address] Feb, [facility] [place] [facility] [address] [id number] [place] [address] Feb, [facility] [place] [facility] [address] [id number] [place] [address] Feb, [facility] [place] [facility] [address] [id number] [place] [address] Jan, [facility] [place] [facility] [address] [id number] [place] [address] December, [facility] [place] [facility] [address] [id number] [place] [address] December, [facility] [facility] [address] [id number] [place] [address] December, [facility] [place] [facility] [address] [id number] [place] [address] December, [facility] [place] [facility] [address] [id number] [place] [address] December, [facility] [address] [id number] [place] [address] December, [facility] [address] [id number] [place] [address] Nov, [facility] [address] [id number] [place] [address] Nov, [facility] [address] [id number] [place] [address] 17 Nov, 2011 [facility] [address] [id number] [place] [address] Nov, [facility] [address] [id number] [place] [address] 16 Nov, 2011 [facility] [address] [id number] [place] [address] 13 Nov, 2011 [facility] [address] [id number] [place] [address] 12 Nov, 2011 [facility] [address] [id number] [place] [address] Nov, [facility] [address] [id number] [place] [address] 05 Nov, 2011 [facility] [address] [id number] [place] [address] 04 Nov, 2011 [facility] [address] [id number] [place] [address] 30 Oct, 2011 [facility] [place] [facility] [address] [id number] [place] [address] 29 Oct, 2011 [facility] [address] [id number] [place] [address] 28 Oct, 2011 [facility] [address] [id number] [place] [address] Oct, [facility] [place] [facility] [address] [id number] [place] [address] 26 Oct, 2011 [facility] [place] [facility] [address] [id number] [place] [address] 23 Oct, 2011 [facility] [place] [facility] [address] [id number] [place] [address] 21 Oct, 2011 [facility] [place] [facility] [address] [id number] [place] [address] 19 Oct, 2011 [facility] [place] [facility] [address] [id number] [place] [address] 08 Oct, 2011 [facility] [place] [facility] [address] [id number] [place] [address] 07 Oct, 2011 [facility] [place] [facility] [address] [id number] [place] [address] 06 Oct, 2011 [facility] [place] [facility] [address] [id number] [place] [address] 05 Oct, 2011 [facility] [place] [facility] [address] [id number] [place] [address] 16 Sep, 2011 [facility] [place] [facility] [address] [id number] [place] [address] 14 Sep, 2011 [facility] [place] [facility] [address] [id number] [place] [address] 12 Sep, 2011 [facility] [place] [facility] [address] [id number] [place] [address] 10 Sep, 2011 [facility] [place] [facility] [address] [id number] [place] [address] 06 Sep, 2011 [facility] [place] [facility] [address] [id number] [place] [address] 06 Sep, 2011 [facility] [facility] [address] [facility] [id number] [place] [address] 06 Sep, 2011 [facility] [place] [facility] [address] [id number] [place] [address] 06 Sep, 2011 [facility] [address] [id number] [place] [address] Sep, [facility] [address] [id number] [place] [address] 30 Aug, 2011 [facility] [address] [id number] [place] [address] Aug, [facility] [address] [id number] [place] [address] Aug, [facility] [address] [id number] [place] [address] Aug, [facility] [address] [id number] [place] [address] Aug, [facility] [address] [id number] [place] [address] Aug, [facility] [address] [id number] [place] [address] Aug, [facility] [address] [id number] [place] [address] 24 Jul, 2011 [facility] [address] [id number] [place] [address] 16 Jul, 2011 [facility] [address] [id number] [place] [address] 16 Jul, 2011 [facility] [address] [id number] [place] [address] 14 Jul, 2011 [facility] [place] [facility] [address] [id number] [place] [address] 30 Jun, 2011 [facility] [address] [id number] [place] [address] Jun, [facility] [address] [id number] [place] [address] May, [facility] [address] [facility] [id number] [place] [address] Mar, [facility] [address] [facility] [id number] [address] Jan, [facility] [address] [facility] [id number] [place] [address] May, IMMUNIZATIONS No Known Immunizations SOCIAL HISTORY Never Assessed REASON FOR VISIT [facility] [place] PLAN OF CARE [...]
--- OUTSIDE RECORDS SUMMARY | 2019-03-23 07:16 | XMS REPORT ---
Author Author Migration, Doctor Organization [facility] Address Unknown Phone Unavailable Care Team Providers Care Manager Process Excellence Name Role Phone Migration, Doctor Unavailable Unavailable PROBLEMS Type Condition ICD9-CM Code MYY06-HK Code Onset Dates Condition Status SNOMED Code Problem Other postablative hypothyroidism 244.1 Active 278715274 Problem Major depressive disorder, recurrent episode, severe, without mention of psychotic behavior 296.33 Active [id number] ALLERGIES No Information ENCOUNTERS Encounter Location Date Diagnosis [place] [id number] [place] [address] Sep, Unspecified mood [affective] disorder [place] [id number] [place] [address] Aug, Unspecified mood [affective] disorder [place] [id number] [place] [address] Jul, Unspecified mood [affective] disorder 9 [place] [id number] [place] [address] Jun, Unspecified mood [affective] disorder [place] [id number] [place] [address] Mar, Affective disorder 296.90 [place] [id number] [place] [address] Mar, [place] [id number] [place] [address] Feb, Nexplanon removal V25.43 and Initiation of OCP (BCP) V25.01 [place] [id number] [place] [address] Feb, Episodic mood disorder 296.90 [place] [id number] [place] [address] [place] [address] Feb, [facility] [place] [address], [place] [address] Feb, Routine gynecological examination V72.31 ; Pap test, as part of routine gynecological examination V76.2 ; Breast cancer screening V76.10 ; Nexplanon in place V45.52 and Rash 782.1 [facility] [place] [address], [place] [address] Jan, Episodic mood disorder 296.90 [facility] [place] [address], [place] [address] Jan, [facility] [place] [address], [place] [address] December, Episodic mood disorder 296.90 [facility] [place] [address], [place] [address] December, [facility] [place] [id number], [place] [address] December, [facility] [place] [id number], [place] [address] December, [facility] [place] [id number], [place] [address] Nov, [facility] [place] [id number], [place] [address] Nov, [facility] [place] [id number], [place] [address] Nov, [facility] [place] [id number] [address] Oct, [facility] [place] [address], [place] [address] Oct, [facility] [place] [id number] [address] Oct, [facility] [place] [id number] [place] [address] Oct, [facility] [place] [facility] [address] [id number] [place] [address] Oct, [facility] [place] [facility] [address] [id number] [place] [address] Oct, [facility] [place] [facility] [address] [id number] [place] [address] Sep, 2014 [facility] [place] [facility] [address] [id number] [place] [address] Sep, 2014 [facility] [place] [facility] [address] [id number] [place] [address] Sep, 2014 [facility] [place] [facility] [address] [id number] [place] [address] Sep, 2014 [facility] [place] [facility] [address] [id number] [place] [address] Sep, [facility] [place] [facility] [address] [id number] [place] [address] Sep, [facility] [place] [facility] [address] [id number] [place] [address] Aug, [facility] [place] [facility] [address] [id number] [place] [address] Aug, [facility] [place] [facility] [address] [id number] [place] [address] Aug, [facility] [place] [facility] [address] [id number] [place] [address] Aug, [facility] [place] [facility] [address] [id number] [place] [address] Aug, [facility] [place] [facility] [address] [id number] [place] [address] Aug, [facility] [place] [facility] [address] [id number] [place] [address] Aug, [facility] [place] [facility] [address] [id number] [place] [address] 14 Aug, 2014 [facility] [place] [facility] [address] [id number] [place] [address] Aug, [facility] [place] [facility] [address] [id number] [place] [address] Aug, [facility] [place] [facility] [address] [id number] [place] [address] Aug, [facility] [place] [facility] [address] [id number] [place] [address] Aug, [facility] [place] [facility] [address] [id number] [place] [address] Aug, [facility] [place] [facility] [address] [id number] [place] [address] Aug, [facility] [place] [facility] [address] [id number] [place] [address] Aug, [facility] [place] [facility] [address] [id number] [place] [address] Aug, [facility] [place] [facility] [address] [id number] [place] [address] Jul, [facility] [place] [facility] [address] [id number], [place] [address] 15 Jul, 2014 [facility] [place] [facility] [address] [id number], [place] [address] 15 Jul, 2014 [facility] [place] [facility] [address] [id number] [place] [address] Jul, [facility] [place] [facility] [address] [id number] [place] [address] Jul, [facility] [place] [facility] [address] [id number] [place] [address] Jul, [facility] [place] [facility] [address] [id number] [place] [address] 11 Jul, 2014 [facility] [place] [facility] [address] [id number] [place] [address] Jul, [facility] [place] [facility] [address] [id number] [place] [address] Jul, [facility] [place] [facility] [address] [id number] [place] [address] 05 Jul, 2014 [facility] [place] [facility] [address] [id number] [place] [address] 05 Jul, 2014 [facility] [place] [facility] [address] [id number] [place] [address] Jul, [facility] [place] [facility] [address] [id number] [place] [address] Jul, [facility] [place] [facility] [address] [id number] [place] [address] Jun, [facility] [place] [facility] [address] [id number] [place] [address] Jun, [facility] [place] [facility] [address] [id number] [place] [address] Jun, [facility] [place] [facility] [address] [facility] [id number] [place] [address] Jun, [facility] [place] [facility] [address] [id number] [place] [address] Jun, [facility] [place] [facility] [address] [id number] [place] [address] Jun, [facility] [place] [facility] [address] [id number] [place] [address] Jun, [facility] [place] [facility] [address] [id number] [place] [address] Jun, [facility] [place] [facility] [address] [id number], [place] [address] Jun, [facility] [place] [facility] [address] [id number] [place] [address] Jun, [facility] [place] [facility] [address] [id number] [place] [address] Jun, [facility] [place] [facility] [address] [id number] [place] [address] Jun, [facility] [place] [facility] [address] [id number] [place] [address] Jun, [facility] [place] [facility] [address] [id number] [place] [address] Jun, [facility] [place] [facility] [address] [id number] [place] [address] May, [facility] [place] [facility] [address] [id number] [place] [address] May, [facility] [place] [facility] [address] [id number] [place] [address] May, [facility] [place] [facility] [address] [id number] [place] [address] May, [facility] [place] [facility] [address] [id number] [place] [address] May, [facility] [place] [facility] [address] [id number] [place] [address] May, [facility] [place] [facility] [address] [id number] [place] [address] May, [facility] [place] [facility] [address] [id number] [place] [address] May, [facility] [place] [facility] [address] [id number] [place] [address] May, [facility] [place] [facility] [address] [id number] [place] [address] May, [facility] [place] [facility] [address] [id number] [place] [address] 30 Sep, 2013 [facility] [place] [facility] [address] [id number] [place] [address] 30 Sep, 2013 [facility] [place] [facility] [address] [id number] [place] [address] 19 Sep, 2013 [facility] [place] [facility] [address] [id number] [place] [address] 19 Sep, 2013 [facility] [place] [facility] [address] [id number] [place] [address] 18 Sep, 2013 [facility] [place] [facility] [address] [id number] [place] [address] 18 Sep, 2013 [facility] [place] [facility] [address] [id number] [place] [address] 18 Sep, 2013 [facility] [place] [facility] [address] [id number] [place] [address] 18 Sep, 2013 [facility] [place] [facility] [address] [id number] [place] [address] 16 Sep, 2013 [facility] [place] [facility] [address] [id number] [place] [address] 16 Sep, 2013 [facility] [place] [facility] [address] [id number] [place] [address] 08 Sep, 2013 [facility] [place] [facility] [address] [id number] [place] [address] 08 Sep, 2013 [facility] [place] [facility] [address] [id number] [place] [address] 08 Sep, 2013 [facility] [place] [facility] [address] [id number] [place] [address] 08 Sep, 2013 [facility] [place] [facility] [address] [id number] [place] [address] 04 Sep, 2013 [facility] [place] [facility] [address] [id number] [place] [address] 04 Sep, 2013 [facility] [place] [facility] [address] [id number] [place] [address] Mar, [facility] [place] [facility] [address] [id number] [place] [address] Mar, [facility] [place] [facility] [address] [id number] [place] [address] Mar, [facility] [place] [facility] [address] [id number] [place] [address] Jan, [facility] [place] [facility] [address] [id number] [place] [address] 23 Jan, 2014 [facility] [place] [facility] [address] [id number] [place] [address] Jan, [facility] [place] [facility] [address] [id number] [place] [address] 18 Jan, 2014 [facility] [place] [facility] [address] [id number] [place] [address] 16 Jan, 2014 [facility] [place] [facility] [address] [id number] [place] [address] 16 Jan, 2014 [facility] [place] [facility] [address] [id number] [place] [address] 16 Jan, 2014 [facility] [place] [facility] [address] [id number] [place] [address] 16 Jan, 2014 [facility] [place] [facility] [address] [id number] [place] [address] Jan, [facility] [place] [facility] [address] [id number] [place] [address] Jan, [facility] [place] [facility] [address] [id number] [place] [address] Jan, [facility] [place] [facility] [address] [id number] [place] [address] 11 Jan, 2014 [facility] [place] [facility] [address] [id number] [place] [address] Jan, [facility] [place] [facility] [address] [id number] [place] [address] Jan, [facility] [place] [facility] [address] [id number] [place] [address] Jan, [facility] [place] [facility] [address] [id number] [place] [address] Jan, [facility] [place] [facility] [address] [id number] [place] [address] December, [facility] [place] [facility] [address] [id number] [place] [address] December, [facility] [place] [facility] [address] [id number] [place] [address] December, [facility] [place] [facility] [address] [id number] [place] [address] December, [facility] [place] [facility] [address] [id number] [place] [address] December, [facility] [place] [facility] [address] [id number] [place] [address] Nov, [facility] [place] [facility] [address] [id number] [place] [address] Nov, [facility] [place] [facility] [address] [id number] [place] [address] Nov, [facility] [place] [facility] [address] [id number] [place] [address] Nov, [facility] [place] [facility] [address] [id number] [place] [address] Nov, [facility] [place] [facility] [address] [id number] [place] [address] Nov, [facility] [place] [facility] [address] [id number] [place] [address] Nov, [facility] [place] [facility] [address] [id number], [place] [address] 24 Nov, 2013 [facility] [place] [facility] [address] [id number] [place] [address] Nov, [facility] [place] [facility] [address] [id number] [place] [address] Nov, [facility] [place] [facility] [address] [facility] [id number] [place] [address] Oct, [facility] [place] [facility] [address] [id number] [place] [address] Oct, [facility] [place] [facility] [address] [id number] [place] [address] Oct, [facility] [place] [facility] [address] [id number] [place] [address] Oct, [facility] [place] [facility] [address] [facility] [id number] [place] [address] Oct, [facility] [place] [facility] [address] [id number] [place] [address] Oct, [facility] [place] [facility] [address] [id number] [place] [address] Oct, [facility] [place] [facility] [address] [facility] [id number] [place] [address] Oct, [facility] [place] [facility] [address] [id number] [place] [address] Oct, [facility] [place] [facility] [address] [id number] [place] [address] Sep, [facility] [place] [facility] [address] [id number] [place] [address] Sep, [facility] [place] [facility] [address] [id number] [place] [address] Sep, [facility] [place] [facility] [address] [facility] [id number] [place] [address] Sep, [facility] [place] [facility] [address] [id number] [place] [address] Sep, [facility] [place] [facility] [address] [id number] [place] [address] Sep, [facility] [place] [facility] [address] [id number] [place] [address] Sep, [facility] [place] [facility] [address] [id number] [place] [address] Aug, [facility] [place] [facility] [address] [id number] [place] [address] Aug, [facility] [place] [facility] [address] [id number] [place] [address] Aug, [facility] [place] [facility] [address] [id number] [place] [address] Aug, [facility] [place] [facility] [address] [id number] [place] [address] Aug, [facility] [place] [facility] [address] [id number] [place] [address] Aug, [facility] [place] [facility] [address] [id number] [place] [address] Aug, [facility] [place] [facility] [address] [id number] [place] [address] Aug, [facility] [place] [facility] [address] [id number], [place] [address] Jul, [facility] [place] [facility] [address] [id number] [place] [address] Jul, [facility] [place] [facility] [address] [id number] [place] [address] Jul, [facility] [place] [facility] [address] [id number], [place] [address] Jul, [facility] [place] [facility] [address] [id number], [place] [address] Jun, [facility] [place] [facility] [address] [id number] [place] [address] Jun, [facility] [place] [facility] [address] [id number] [place] [address] Jun, [facility] [place] [facility] [address] [id number] [place] [address] May, [facility] [place] [facility] [address] [id number] [place] [address] May, [facility] [place] [facility] [address] [id number] [place] [address] May, [facility] [place] [facility] [address] [id number] [place] [address] May, [facility] [place] [facility] [address] [id number] [place] [address] May, [facility] [place] [facility] [address] [id number] [place] [address] May, [facility] [place] [facility] [address] [facility] [id number] [place] [address] May, [facility] [place] [facility] [address] [facility] [id number] [place] [address] Apr, [facility] [place] [facility] [address] [id number], [place] [address] 17 Apr, 2013 [facility] [place] [facility] [address] [id number], [place] [address] 12 Apr, 2013 [facility] [place] [facility] [address] [id number] [place] [address] 11 Apr, 2013 [facility] [place] [facility] [address] [facility] [id number] [place] [address] 05 Apr, 2013 [facility] [place] [facility] [address] [facility] [id number] [place] [address] Mar, [facility] [place] [facility] [address] [id number] [place] [address] Mar, [facility] [place] [facility] [address] [id number] [place] [address] Mar, [facility] [place] [facility] [address] [id number] [place] [address] Mar, [facility] [place] [facility] [address] [id number] [place] [address] Feb, [facility] [place] [facility] [address] [id number] [place] [address] Feb, [facility] [place] [facility] [address] [id number] [place] [address] Feb, [facility] [place] [facility] [address] [id number] [place] [address] Feb, [facility] [place] [facility] [address] [id number] [place] [address] Feb, [facility] [place] [facility] [address] [id number] [place] [address] Feb, [facility] [place] [facility] [address] [id number] [place] [address] Feb, [facility] [place] [facility] [address] [id number] [place] [address] Feb, [facility] [place] [facility] [address] [id number] [place] [address] Jan, [facility] [place] [facility] [address] [id number] [place] [address] Jan, [facility] [place] [facility] [address] [id number] [place] [address] Jan, [facility] [place] [facility] [address] [id number] [place] [address] Jan, [facility] [place] [facility] [address] [id number] [place] [address] Jan, [facility] [address] [id number] [place] [address] Jan, [facility] [place] [facility] [address] [id number] [place] [address] Jan, [facility] [place] [facility] [address] [id number] [place] [address] December, [facility] [place] [facility] [address] [id number] [place] [address] December, [facility] [address] [id number] [place] [address] 30 Nov, 2012 [facility] [place] [facility] [address] [id number] [place] [address] Nov, [facility] [place] [facility] [address] [id number] [place] [address] Nov, [facility] [place] [facility] [address] [id number] [place] [address] Nov, [facility] [place] [facility] [address] [id number] [place] [address] 24 Nov, 2012 [facility] [place] [facility] [address] [id number] [place] [address] Nov, [facility] [place] [facility] [address] [id number] [place] [address] Nov, [facility] [place] [facility] [address] [id number], [place] [address] 15 Nov, 2012 [facility] [place] [facility] [address] [id number] [place] [address] 11 Nov, 2012 [facility] [place] [facility] [address] [id number] [place] [address] 10 Nov, 2012 [facility] [place] [facility] [address] [id number] [place] [address] 08 Nov, 2012 [facility] [place] [facility] [address] [id number] [place] [address] 05 Nov, 2012 [facility] [address] [id number] [place] [address] Nov, [facility] [place] [facility] [address] [id number] [place] [address] Nov, [facility] [address] [id number] [place] [address] Oct, [facility] [place] [facility] [address] [id number] [place] [address] Oct, [facility] [address] [id number] [place] [address] Oct, [facility] [address] [id number] [place] [address] Oct, [facility] [address] [id number] [place] [address] Oct, [facility] [address] [id number] [place] [address] Oct, [facility] [address] [id number] [place] [address] Oct, [facility] [address] [id number] [place] [address] Oct, [facility] [address] [id number] [place] [address] Oct, [facility] [place] [facility] [address] [id number] [place] [address] Sep, [facility] [place] [facility] [address] [id number] [place] [address] Aug, [facility] [place] [facility] [address] [id number] [place] [address] Aug, [facility] [place] [facility] [address] [id number] [place] [address] Aug, [facility] [place] [facility] [address] [id number] [place] [address] Aug, [facility] [place] [facility] [address] [id number] [place] [address] 31 Jul, 2012 [facility] [place] [facility] [address] [id number] [place] [address] 31 Jul, 2012 [facility] [place] [facility] [address] [id number] [place] [address] Jul, [facility] [address] [id number] [place] [address] 19 Jul, 2012 [facility] [place] [facility] [address] [id number] [place] [address] Jul, [facility] [address] [id number] [place] [address] 15 Jul, 2012 [facility] [place] [facility] [address] [id number] [place] [address] 15 Jul, 2012 [facility] [place] [facility] [address] [id number] [place] [address] 14 Jul, 2012 [facility] [place] [facility] [address] [id number] [place] [address] 14 Jul, 2012 [facility] [place] [facility] [address] [id number] [place] [address] May, [facility] [place] [facility] [address] [id number] [place] [address] 22 May, 2012 [facility] [place] [facility] [address] [id number] [place] [address] 16 May, 2012 [facility] [place] [facility] [address] [id number] [place] [address] 16 May, 2012 [facility] [place] [facility] [address] [id number] [place] [address] 12 May, 2012 [facility] [place] [facility] [address] [id number] [place] [address] May, [facility] [place] [facility] [address] [id number] [place] [address] 27 Apr, 2012 [facility] [place] [facility] [address] [id number] [place] [address] 27 Apr, 2012 [facility] [place] [facility] [address] [id number] [place] [address] 24 Apr, 2012 [facility] [place] [facility] [address] [id number] [place] [address] 18 Apr, 2012 [facility] [place] [facility] [address] [id number] [place] [address] 14 Apr, 2012 [facility] [place] [facility] [address] [id number] [place] [address] 12 Apr, 2012 [facility] [place] [facility] [address] [id number] [place] [address] Mar, [facility] [place] [facility] [address] [id number] [place] [address] Feb, [facility] [place] [facility] [address] [id number] [place] [address] Feb, [facility] [place] [facility] [address] [id number] [place] [address] Feb, [facility] [place] [facility] [address] [id number] [place] [address] Jan, [facility] [place] [facility] [address] [id number] [place] [address] December, [facility] [place] [facility] [address] [id number] [place] [address] December, [facility] [place] [facility] [address] [id number] [place] [address] December, [facility] [place] [facility] [address] [id number] [place] [place] [address] December, [facility] [place] [facility] [address] [id number] [place] [address] December, [facility] [address] [id number] [place] [address] December, [facility] [address] [id number] [place] [address] Nov, [facility] [address] [id number] [place] [address] Nov, [facility] [address] [id number] [place] [address] 17 Nov, 2011 [facility] [address] [id number] [place] [address] Nov, [facility] [address] [id number] [place] [address] 16 Nov, 2011 [facility] [address] [id number] [place] [address] 13 Nov, 2011 [facility] [address] [id number] [place] [address] 12 Nov, 2011 [facility] [address] [id number] [place] [address] Nov, [facility] [address] [id number] [place] [address] 05 Nov, 2011 [facility] [address] [id number] [place] [address] 04 Nov, 2011 [facility] [address] [id number] [place] [address] 30 Oct, 2011 [facility] [place] [facility] [address] [id number] [place] [address] 29 Oct, 2011 [facility] [address] [id number] [place] [address] 28 Oct, 2011 [facility] [address] [id number] [place] [address] Oct, [facility] [place] [facility] [address] [id number] [place] [address] 26 Oct, 2011 [facility] [place] [facility] [address] [id number] [place] [address] 23 Oct, 2011 [facility] [place] [facility] [address] [id number] [place] [address] 21 Oct, 2011 [facility] [place] [facility] [address] [id number] [place] [address] 19 Oct, 2011 [facility] [place] [facility] [address] [id number] [place] [address] 08 Oct, 2011 [facility] [place] [facility] [address] [id number] [place] [address] 07 Oct, 2011 [facility] [place] [facility] [address] [id number] [place] [address] 06 Oct, 2011 [facility] [place] [facility] [address] [id number] [place] [address] 05 Oct, 2011 [facility] [place] [facility] [address] [id number] [place] [address] 16 Sep, 2011 [facility] [place] [facility] [address] [id number] [place] [address] 14 Sep, 2011 [facility] [place] [facility] [address] [id number] [place] [address] 12 Sep, 2011 [facility] [place] [facility] [address] [id number] [place] [address] 10 Sep, 2011 [facility] [place] [facility] [address] [id number] [place] [address] 06 Sep, 2011 [facility] [place] [facility] [address] [id number] [place] [address] 06 Sep, 2011 [facility] [place] [facility] [address] [facility] [id number] [place] [address] 06 Sep, 2011 [facility] [place] [facility] [address] [id number] [place] [address] 06 Sep, 2011 [facility] [address] [id number] [place] [address] Sep, [facility] [address] [id number] [place] [address] 30 Aug, 2011 [facility] [address] [id number] [place] [address] Aug, [facility] [address] [id number] [place] [address] Aug, [facility] [address] [id number] [place] [address] Aug, [facility] [address] [id number] [place] [address] Aug, [facility] [address] [id number] [place] [address] Aug, [facility] [address] [id number] [place] [address] Aug, [facility] [address] [id number] [place] [address] 24 Jul, 2011 [facility] [address] [id number] [place] [address] 16 Jul, 2011 [facility] [address] [id number] [place] [address] 16 Jul, 2011 [facility] [address] [id number] [place] [address] 14 Jul, 2011 [facility] [place] [facility] [address] [id number] [place] [address] 30 Jun, 2011 [facility] [address] [id number] [place] [address] Jun, [facility] [address] [id number] [place] [address] May, [facility] [place] [address] [facility] [id number] [place] [address] Mar, [facility] [place] [address] [facility] [id number] [address] Jan, [facility] [place] [address] [facility] [id number] [place] [address] May, IMMUNIZATIONS No Known Immunizations SOCIAL HISTORY Never Assessed REASON FOR VISIT [facility] [place] PLAN OF CARE [...]
--- OUTSIDE RECORDS SUMMARY | 2019-03-23 07:16 | XMS REPORT ---
Author Author Migration, Doctor Organization [facility] Address Unknown Phone Unavailable Care Team Providers Care Business Development Consultant Name Role Phone Migration, Doctor Unavailable Unavailable PROBLEMS Type Condition ICD9-CM Code [id number] Code Onset Dates Condition Status SNOMED Code Problem Other postablative hypothyroidism 244.1 Active 176799888 Problem Major depressive disorder, recurrent episode, severe, without mention of psychotic behavior 296.33 Active [id number] ALLERGIES No Information ENCOUNTERS Encounter Location Date Diagnosis [place] [id number] [place] [address] Sep, Unspecified mood [affective] disorder [place] [id number] [place] [address] Aug, Unspecified mood [affective] disorder [place] [id number] [place] [address] Jul, Unspecified mood [affective] disorder [address] [place] [place] [id number] [place] [address] Jun, Unspecified mood [affective] disorder [place] [id number] [place] [address] Mar, Affective disorder 296.90 [place] [id number] [place] [address] Mar, [place] [id number] [place] [address] Feb, Nexplanon removal V25.43 and Initiation of OCP (BCP) V25.01 [place] [id number] [place] [address] Feb, Episodic mood disorder 296.90 [place] [id number] [place] [address] [place] [address] Feb, [facility] [id number], [place] [address] Feb, Routine gynecological examination V72.31 ; Pap test, as part of routine gynecological examination V76.2 ; Breast cancer screening V76.10 ; Nexplanon in place V45.52 and Rash 782.1 [facility] [id number], [place] [address] Jan, Episodic mood disorder 296.90 [facility] [address], [place] [address] Jan, [facility] [address] [address] December, Episodic mood disorder 296.90 [facility] [address], [place] [address] December, [facility] [address], [place] [address] December, [facility] [address] [address] December, [facility] [id number], [place] [address] Nov, [facility] [address], [place] [address] Nov, [facility] [address], [place] [address] Nov, [facility] [id number], [place] [address] Oct, [facility] [id number] [address] Oct, [facility] [id number] [address] Oct, [facility] [id number] [place] [address] Oct, [facility] [place] [facility] [address] [id number] [place] [address] Oct, [facility] [place] [facility] [address] [id number] [place] [address] Oct, [facility] [place] [facility] [address] [id number] [place] [address] Sep, 2014 [facility] [place] [facility] [address] [id number] [place] [address] Sep, 2014 [facility] [place] [facility] [address] [id number] [place] [address] Sep, 2014 [facility] [place] [facility] [address] [id number] [place] [address] Sep, 2014 [facility] [place] [facility] [address] [id number] [place] [address] Sep, [facility] [place] [facility] [address] [id number] [place] [address] Sep, [facility] [place] [facility] [address] [id number] [place] [address] Aug, [facility] [place] [facility] [address] [id number] [place] [address] Aug, [facility] [place] [facility] [address] [id number] [place] [address] Aug, [facility] [place] [facility] [address] [id number] [place] [address] Aug, [facility] [place] [facility] [address] [id number] [place] [address] Aug, [facility] [place] [facility] [address] [id number] [place] [address] Aug, [facility] [place] [facility] [address] [id number] [place] [address] Aug, [facility] [place] [facility] [address] [id number] [place] [address] 14 Aug, 2014 [facility] [place] [facility] [address] [id number] [place] [address] Aug, [facility] [place] [facility] [address] [id number] [place] [address] Aug, [facility] [place] [facility] [address] [id number] [place] [address] Aug, [facility] [place] [facility] [address] [id number] [place] [address] Aug, [facility] [place] [facility] [address] [id number] [place] [address] Aug, [facility] [place] [facility] [address] [id number] [place] [address] Aug, [facility] [place] [facility] [address] [id number] [place] [address] Aug, [facility] [place] [facility] [address] [id number] [place] [address] Aug, [facility] [place] [facility] [address] [id number] [place] [address] Jul, [facility] [place] [facility] [address] [id number], [place] [address] 15 Jul, 2014 [facility] [place] [facility] [address] [id number], [place] [address] 15 Jul, 2014 [facility] [place] [facility] [address] [id number] [place] [address] Jul, [facility] [place] [facility] [address] [id number] [place] [address] Jul, [facility] [place] [facility] [address] [id number] [place] [address] Jul, [facility] [place] [facility] [address] [id number] [place] [address] 11 Jul, 2014 [facility] [place] [facility] [address] [id number] [place] [address] Jul, [facility] [place] [facility] [address] [id number] [place] [address] Jul, [facility] [place] [facility] [address] [id number] [place] [address] 05 Jul, 2014 [facility] [place] [facility] [address] [id number] [place] [address] 05 Jul, 2014 [facility] [place] [facility] [address] [id number] [place] [address] Jul, [facility] [place] [facility] [address] [id number] [place] [address] Jul, [facility] [place] [facility] [address] [id number] [place] [address] Jun, [facility] [place] [facility] [address] [id number] [place] [address] Jun, [facility] [place] [facility] [address] [id number] [place] [address] Jun, [facility] [place] [facility] [address] [facility] [id number] [place] [address] Jun, [facility] [place] [facility] [address] [id number] [place] [address] Jun, [facility] [place] [facility] [address] [id number] [place] [address] Jun, [facility] [place] [facility] [address] [id number] [place] [address] Jun, [facility] [place] [facility] [address] [id number] [place] [address] Jun, [facility] [place] [facility] [address] [id number] [address] Jun, [facility] [place] [facility] [address] [id number] [place] [address] Jun, [facility] [place] [facility] [address] [id number] [place] [address] Jun, [facility] [place] [facility] [address] [id number] [place] [address] Jun, [facility] [place] [facility] [address] [id number] [place] [address] Jun, [facility] [place] [facility] [address] [id number] [place] [address] Jun, [facility] [place] [facility] [address] [id number] [place] [address] May, [facility] [place] [facility] [address] [id number] [place] [address] May, [facility] [place] [facility] [address] [id number] [place] [address] May, [facility] [place] [facility] [address] [id number] [place] [address] May, [facility] [place] [facility] [address] [id number] [place] [address] May, [facility] [place] [facility] [address] [id number] [place] [address] May, [facility] [place] [facility] [address] [id number] [place] [address] May, [facility] [place] [facility] [address] [id number] [place] [address] May, [facility] [place] [facility] [address] [id number] [place] [address] May, [facility] [place] [facility] [address] [id number] [place] [address] May, [facility] [place] [facility] [address] [id number] [place] [address] 30 Sep, 2013 [facility] [place] [facility] [address] [id number] [place] [address] 30 Sep, 2013 [facility] [place] [facility] [address] [id number] [place] [address] 19 Sep, 2013 [facility] [place] [facility] [address] [id number] [place] [address] 19 Sep, 2013 [facility] [place] [facility] [address] [id number] [place] [address] 18 Sep, 2013 [facility] [place] [facility] [address] [id number] [place] [address] 18 Sep, 2013 [facility] [place] [facility] [address] [id number] [place] [address] 18 Sep, 2013 [facility] [place] [facility] [address] [id number] [place] [address] 18 Sep, 2013 [facility] [place] [facility] [address] [id number] [place] [address] 16 Sep, 2013 [facility] [place] [facility] [address] [id number] [place] [address] 16 Sep, 2013 [facility] [place] [facility] [address] [id number] [place] [address] 08 Sep, 2013 [facility] [place] [facility] [address] [id number] [place] [address] 08 Sep, 2013 [facility] [place] [facility] [address] [id number] [place] [address] 08 Sep, 2013 [facility] [place] [facility] [address] [id number] [place] [address] 08 Sep, 2013 [facility] [place] [facility] [address] [id number] [place] [address] 04 Sep, 2013 [facility] [place] [facility] [address] [id number] [place] [address] 04 Sep, 2013 [facility] [place] [facility] [address] [id number] [place] [address] Mar, [facility] [place] [facility] [address] [id number] [place] [address] Mar, [facility] [place] [facility] [address] [id number] [place] [address] Mar, [facility] [place] [facility] [address] [id number] [place] [address] Jan, [facility] [place] [facility] [address] [id number] [place] [address] 23 Jan, 2014 [facility] [place] [facility] [address] [id number] [place] [address] Jan, [facility] [place] [facility] [address] [id number] [place] [address] 18 Jan, 2014 [facility] [place] [facility] [address] [id number] [place] [address] 16 Jan, 2014 [facility] [place] [facility] [address] [id number] [place] [address] 16 Jan, 2014 [facility] [place] [facility] [address] [id number] [place] [address] 16 Jan, 2014 [facility] [place] [facility] [address] [id number] [place] [address] 16 Jan, 2014 [facility] [place] [facility] [address] [id number] [place] [address] Jan, [facility] [place] [facility] [address] [id number] [place] [address] Jan, [facility] [place] [facility] [address] [id number] [place] [address] Jan, [facility] [place] [facility] [address] [id number] [place] [address] 11 Jan, 2014 [facility] [place] [facility] [address] [id number] [place] [address] Jan, [facility] [place] [facility] [address] [id number] [place] [address] Jan, [facility] [place] [facility] [address] [id number] [place] [address] Jan, [facility] [place] [facility] [address] [id number] [place] [address] Jan, [facility] [place] [facility] [address] [id number] [place] [address] December, [facility] [place] [facility] [address] [id number] [place] [address] December, [facility] [place] [facility] [address] [id number] [place] [address] December, [facility] [place] [facility] [address] [id number] [place] [address] December, [facility] [place] [facility] [address] [id number] [place] [address] December, [facility] [place] [facility] [address] [id number] [place] [address] Nov, [facility] [place] [facility] [address] [id number] [place] [address] Nov, [facility] [place] [facility] [address] [id number] [place] [address] Nov, [facility] [place] [facility] [address] [id number] [place] [address] Nov, [facility] [place] [facility] [address] [id number] [place] [address] Nov, [facility] [place] [facility] [address] [id number] [place] [address] Nov, [facility] [place] [facility] [address] [id number] [place] [address] Nov, [facility] [place] [facility] [address] [id number], [place] [address] 24 Nov, 2013 [facility] [place] [facility] [address] [id number] [place] [address] Nov, [facility] [place] [facility] [address] [id number] [place] [address] Nov, [facility] [place] [facility] [address] [facility] [id number] [place] [address] Oct, [facility] [place] [facility] [address] [id number] [place] [address] Oct, [facility] [place] [facility] [address] [id number] [place] [address] Oct, [facility] [place] [facility] [address] [id number] [place] [address] Oct, [facility] [place] [facility] [address] [facility] [id number] [place] [address] Oct, [facility] [place] [facility] [address] [id number] [place] [address] Oct, [facility] [place] [facility] [address] [id number] [place] [address] Oct, [facility] [place] [facility] [address] [facility] [id number] [place] [address] Oct, [facility] [place] [facility] [address] [id number] [place] [address] Oct, [facility] [place] [facility] [address] [id number] [place] [address] Sep, [facility] [place] [facility] [address] [id number] [place] [address] Sep, [facility] [place] [facility] [address] [id number] [place] [address] Sep, [facility] [place] [facility] [address] [facility] [id number] [place] [address] Sep, [facility] [place] [facility] [address] [id number] [place] [address] Sep, [facility] [place] [facility] [address] [id number] [place] [address] Sep, [facility] [place] [facility] [address] [id number] [place] [address] Sep, [facility] [place] [facility] [address] [id number] [place] [address] Aug, [facility] [place] [facility] [address] [id number] [place] [address] Aug, [facility] [place] [facility] [address] [id number] [place] [address] Aug, [facility] [place] [facility] [address] [id number] [place] [address] Aug, [facility] [place] [facility] [address] [id number] [place] [address] Aug, [facility] [place] [facility] [address] [id number] [place] [address] Aug, [facility] [place] [facility] [address] [id number] [place] [address] Aug, [facility] [place] [facility] [address] [id number] [place] [address] Aug, [facility] [place] [facility] [address] [id number], [place] [address] Jul, [facility] [place] [facility] [address] [id number] [place] [address] Jul, [facility] [place] [facility] [address] [id number] [place] [address] Jul, [facility] [place] [facility] [address] [id number], [place] [address] Jul, [facility] [place] [facility] [address] [id number], [place] [address] Jun, [facility] [place] [facility] [address] [id number] [place] [address] Jun, [facility] [place] [facility] [address] [id number] [place] [address] Jun, [facility] [place] [facility] [address] [id number] [place] [address] May, [facility] [place] [facility] [address] [id number] [place] [address] May, [facility] [place] [facility] [address] [id number] [place] [address] May, [facility] [place] [facility] [address] [id number] [place] [address] May, [facility] [place] [facility] [address] [id number] [place] [address] May, [facility] [place] [facility] [address] [id number] [place] [address] May, [facility] [place] [facility] [address] [facility] [id number] [place] [address] May, [facility] [place] [facility] [address] [facility] [id number] [place] [address] Apr, [facility] [place] [facility] [address] [id number], [place] [address] 17 Apr, 2013 [facility] [place] [facility] [address] [id number], [place] [address] 12 Apr, 2013 [facility] [place] [facility] [address] [id number] [place] [address] 11 Apr, 2013 [facility] [place] [facility] [address] [facility] [id number] [place] [address] 05 Apr, 2013 [facility] [place] [facility] [address] [facility] [id number] [place] [address] Mar, [facility] [place] [facility] [address] [id number] [place] [address] Mar, [facility] [place] [facility] [address] [id number] [place] [address] Mar, [facility] [place] [facility] [address] [id number] [place] [address] Mar, [facility] [place] [facility] [address] [id number] [place] [address] Feb, [facility] [place] [facility] [address] [id number] [place] [address] Feb, [facility] [place] [facility] [address] [id number] [place] [address] Feb, [facility] [place] [facility] [address] [id number] [place] [address] Feb, [facility] [place] [facility] [address] [id number] [place] [address] Feb, [facility] [place] [facility] [address] [id number] [place] [address] Feb, [facility] [place] [facility] [address] [id number] [place] [address] Feb, [facility] [place] [facility] [address] [id number] [place] [address] Feb, [facility] [place] [facility] [address] [id number] [place] [address] Jan, [facility] [place] [facility] [address] [id number] [place] [address] Jan, [facility] [place] [facility] [address] [id number] [place] [address] Jan, [facility] [place] [facility] [address] [id number] [place] [address] Jan, [facility] [place] [facility] [address] [id number] [place] [address] Jan, [facility] [address] [id number] [place] [address] Jan, [facility] [place] [facility] [address] [id number] [place] [address] Jan, [facility] [place] [facility] [address] [id number] [place] [address] December, [facility] [place] [facility] [address] [id number] [place] [address] December, [facility] [address] [id number] [place] [address] 30 Nov, 2012 [facility] [place] [facility] [address] [id number] [place] [address] Nov, [facility] [place] [facility] [address] [id number] [place] [address] Nov, [facility] [place] [facility] [address] [id number] [place] [address] Nov, [facility] [place] [facility] [address] [id number] [place] [address] 24 Nov, 2012 [facility] [place] [facility] [address] [id number] [place] [address] Nov, [facility] [place] [facility] [address] [id number] [place] [address] Nov, [facility] [place] [facility] [address] [id number] [address] 15 Nov, 2012 [facility] [place] [facility] [address] [id number] [place] [address] 11 Nov, 2012 [facility] [place] [facility] [address] [id number] [place] [address] 10 Nov, 2012 [facility] [place] [facility] [address] [id number] [place] [address] 08 Nov, 2012 [facility] [place] [facility] [address] [id number] [place] [address] 05 Nov, 2012 [facility] [address] [id number] [place] [address] Nov, [facility] [place] [facility] [address] [id number] [place] [address] Nov, [facility] [address] [id number] [place] [address] Oct, [facility] [place] [facility] [address] [id number] [place] [address] Oct, [facility] [address] [id number] [place] [address] Oct, [facility] [address] [id number] [place] [address] Oct, [facility] [address] [id number] [place] [address] Oct, [facility] [address] [id number] [place] [address] Oct, [facility] [address] [id number] [place] [address] Oct, [facility] [address] [id number] [place] [address] Oct, [facility] [address] [id number] [place] [address] Oct, [facility] [place] [facility] [address] [id number] [place] [address] Sep, [facility] [place] [facility] [address] [id number] [place] [address] Aug, [facility] [place] [facility] [address] [id number] [place] [address] Aug, [facility] [place] [facility] [address] [id number] [place] [address] Aug, [facility] [place] [facility] [address] [id number] [place] [address] Aug, [facility] [place] [facility] [address] [id number] [place] [address] 31 Jul, 2012 [facility] [place] [facility] [address] [id number] [place] [address] 31 Jul, 2012 [facility] [place] [facility] [address] [id number] [place] [address] Jul, [facility] [address] [id number] [place] [address] 19 Jul, 2012 [facility] [place] [facility] [address] [id number] [place] [address] Jul, [facility] [address] [id number] [place] [address] 15 Jul, 2012 [facility] [place] [facility] [address] [id number] [place] [address] 15 Jul, 2012 [facility] [place] [facility] [address] [id number] [place] [address] 14 Jul, 2012 [facility] [place] [facility] [address] [id number] [place] [address] 14 Jul, 2012 [facility] [place] [facility] [address] [id number] [place] [address] May, [facility] [place] [facility] [address] [id number] [place] [address] 22 May, 2012 [facility] [place] [facility] [address] [id number] [place] [address] 16 May, 2012 [facility] [place] [facility] [address] [id number] [place] [address] 16 May, 2012 [facility] [place] [facility] [address] [id number] [place] [address] 12 May, 2012 [facility] [place] [facility] [address] [id number] [place] [address] May, [facility] [place] [facility] [address] [id number] [place] [address] 27 Apr, 2012 [facility] [place] [facility] [address] [id number] [place] [address] 27 Apr, 2012 [facility] [place] [facility] [address] [id number] [place] [address] 24 Apr, 2012 [facility] [place] [facility] [address] [id number] [place] [address] 18 Apr, 2012 [facility] [place] [facility] [address] [id number] [place] [address] 14 Apr, 2012 [facility] [place] [facility] [address] [id number] [place] [address] 12 Apr, 2012 [facility] [place] [facility] [address] [id number] [place] [address] Mar, [facility] [place] [facility] [address] [id number] [place] [address] Feb, [facility] [place] [facility] [address] [id number] [place] [address] Feb, [facility] [place] [facility] [address] [id number] [place] [address] Feb, [facility] [place] [facility] [address] [id number] [place] [address] Jan, [facility] [place] [facility] [address] [id number] [place] [address] December, [facility] [place] [facility] [address] [id number] [place] [address] December, [facility] [place] [facility] [address] [id number] [place] [address] December, [facility] [place] [facility] [address] [id number] [place] [address] December, [facility] [place] [facility] [address] [id number] [place] [address] December, [facility] [address] [id number] [place] [address] December, [facility] [address] [id number] [place] [address] Nov, [facility] [address] [id number] [place] [address] Nov, [facility] [address] [id number] [place] [address] 17 Nov, 2011 [facility] [address] [id number] [place] [address] Nov, [facility] [address] [id number] [place] [address] 16 Nov, 2011 [facility] [address] [id number] [place] [address] 13 Nov, 2011 [facility] [address] [id number] [place] [address] 12 Nov, 2011 [facility] [address] [id number] [place] [address] Nov, [facility] [address] [id number] [place] [address] 05 Nov, 2011 [facility] [address] [id number] [place] [address] 04 Nov, 2011 [facility] [address] [id number] [place] [address] 30 Oct, 2011 [facility] [place] [facility] [address] [id number] [place] [address] 29 Oct, 2011 [facility] [address] [id number] [place] [address] 28 Oct, 2011 [facility] [address] [id number] [place] [address] Oct, [facility] [place] [facility] [address] [id number] [place] [address] 26 Oct, 2011 [facility] [place] [facility] [address] [id number] [place] [address] 23 Oct, 2011 [facility] [place] [facility] [address] [id number] [place] [address] 21 Oct, 2011 [facility] [place] [facility] [address] [id number] [place] [address] 19 Oct, 2011 [facility] [place] [facility] [address] [id number] [place] [address] 08 Oct, 2011 [facility] [place] [facility] [address] [id number] [place] [address] 07 Oct, 2011 [facility] [place] [facility] [address] [id number] [place] [address] 06 Oct, 2011 [facility] [place] [facility] [address] [id number] [place] [address] 05 Oct, 2011 [facility] [place] [facility] [address] [id number] [place] [address] 16 Sep, 2011 [facility] [place] [facility] [address] [id number] [place] [address] 14 Sep, 2011 [facility] [place] [facility] [address] [id number] [place] [address] 12 Sep, 2011 [facility] [place] [facility] [address] [id number] [place] [address] 10 Sep, 2011 [facility] [place] [facility] [address] [id number] [place] [address] 06 Sep, 2011 [facility] [place] [facility] [address] [id number] [place] [address] 06 Sep, 2011 [facility] [place] [facility] [address] [facility] [id number] [place] [address] 06 Sep, 2011 [facility] [place] [facility] [address] [id number] [place] [address] 06 Sep, 2011 [facility] [address] [id number] [place] [address] Sep, [facility] [address] [id number] [place] [address] 30 Aug, 2011 [facility] [address] [id number] [place] [address] Aug, [facility] [address] [id number] [place] [address] Aug, [facility] [address] [id number] [place] [address] Aug, [facility] [address] [id number] [place] [address] Aug, [facility] [address] [id number] [place] [address] Aug, [facility] [address] [id number] [place] [address] Aug, [facility] [address] [id number] [place] [address] 24 Jul, 2011 [facility] [address] [id number] [place] [address] 16 Jul, 2011 [facility] [address] [id number] [place] [address] 16 Jul, 2011 [facility] [address] [id number] [place] [address] 14 Jul, 2011 [facility] [place] [facility] [address] [id number] [place] [address] 30 Jun, 2011 [facility] [address] [id number] [place] [address] Jun, [facility] [address] [id number] [place] [address] May, [facility] [address] [facility] [id number] [place] [address] Mar, [facility] [address] [facility] [id number] [address] Jan, [facility] [address] [facility] [id number] [place] [address] May, IMMUNIZATIONS No Known Immunizations SOCIAL HISTORY Never Assessed REASON FOR VISIT [facility] PLAN OF CARE VITAL SIGNS MEDICATIONS [...]
--- OUTSIDE RECORDS SUMMARY | 2019-03-23 07:17 | XMS REPORT ---
Author Author Migration, Doctor Organization [facility] Address Unknown Phone Unavailable Care Team Providers Care Senior Test Analyst Name Role Phone Migration, Doctor Unavailable Unavailable PROBLEMS Type Condition ICD9-CM Code [id number] Code Onset Dates Condition Status SNOMED Code Problem Other postablative hypothyroidism 244.1 Active 879274286 Problem Major depressive disorder, recurrent episode, severe, without mention of psychotic behavior 296.33 Active [id number] ALLERGIES No Information ENCOUNTERS Encounter Location Date Diagnosis [place] [id number] [place] [address] Sep, Unspecified mood [affective] disorder [place] [id number] [place] [address] Aug, Unspecified mood [affective] disorder [place] [id number] [place] [address] Jul, Unspecified mood [affective] disorder [address] [place] [id number] [place] [address] Jun, Unspecified mood [affective] disorder [place] [id number] [place] [address] Mar, Affective disorder 296.90 [place] [id number] [place] [address] Mar, [place] [id number] [place] [address] Feb, Nexplanon removal V25.43 and Initiation of OCP (BCP) V25.01 [place] [id number] [place] [address] Feb, Episodic mood disorder 296.90 [place] [id number] [place] [address] [place] [address] Feb, [facility] [address], [place] [address] Feb, Routine gynecological examination V72.31 ; Pap test, as part of routine gynecological examination V76.2 ; Breast cancer screening V76.10 ; Nexplanon in place V45.52 and Rash 782.1 [facility] [id number], [place] [address] Jan, Episodic mood disorder 296.90 [facility] [address], [place] [address] Jan, [facility] [id number], [place] [address] December, Episodic mood disorder 296.90 [facility] [id number], [place] [address] December, [facility] [id number], [place] [address] December, [facility] [id number], [place] [address] December, [facility] [id number], [place] [address] Nov, [facility] [id number], [place] [address] Nov, [facility] [id number], [place] [address] Nov, [facility] [id number], [place] [address] Oct, [facility] [id number], [place] [address] Oct, [facility] [id number] [address] Oct, [facility] [id number] [place] [address] Oct, [facility] [place] [facility] [address] [id number] [place] [address] Oct, [facility] [place] [facility] [address] [id number] [place] [address] Oct, [facility] [place] [facility] [address] [id number] [place] [address] Sep, 2014 [facility] [place] [facility] [address] [id number] [place] [address] Sep, 2014 [facility] [place] [facility] [address] [id number] [place] [address] Sep, 2014 [facility] [place] [facility] [address] [id number] [place] [address] Sep, 2014 [facility] [place] [facility] [address] [id number] [place] [address] Sep, [facility] [place] [facility] [address] [id number] [place] [address] Sep, [facility] [place] [facility] [address] [id number] [place] [address] Aug, [facility] [place] [facility] [address] [id number] [place] [address] Aug, [facility] [place] [facility] [address] [id number] [place] [address] Aug, [facility] [place] [facility] [address] [id number] [place] [address] Aug, [facility] [place] [facility] [address] [id number] [place] [address] Aug, [facility] [place] [facility] [address] [id number] [place] [address] Aug, [facility] [place] [facility] [address] [id number] [place] [address] Aug, [facility] [place] [facility] [address] [id number] [place] [address] 14 Aug, 2014 [facility] [place] [facility] [address] [id number] [place] [address] Aug, [facility] [place] [facility] [address] [id number] [place] [address] Aug, [facility] [place] [facility] [address] [id number] [place] [address] Aug, [facility] [place] [facility] [address] [id number] [place] [address] Aug, [facility] [place] [facility] [address] [id number] [place] [address] Aug, [facility] [place] [facility] [address] [id number] [place] [address] Aug, [facility] [place] [facility] [address] [id number] [place] [address] Aug, [facility] [place] [facility] [address] [id number] [place] [address] Aug, [facility] [place] [facility] [address] [id number] [place] [address] Jul, [facility] [place] [facility] [address] [id number], [place] [address] 15 Jul, 2014 [facility] [place] [facility] [address] [id number], [place] [address] 15 Jul, 2014 [facility] [place] [facility] [address] [id number] [place] [address] Jul, [facility] [place] [facility] [address] [id number] [place] [address] Jul, [facility] [place] [facility] [address] [id number] [place] [address] Jul, [facility] [place] [facility] [address] [id number] [place] [address] 11 Jul, 2014 [facility] [place] [facility] [address] [id number] [place] [address] Jul, [facility] [place] [facility] [address] [id number] [place] [address] Jul, [facility] [place] [facility] [address] [id number] [place] [address] 05 Jul, 2014 [facility] [place] [facility] [address] [id number] [place] [address] 05 Jul, 2014 [facility] [place] [facility] [address] [id number] [place] [address] Jul, [facility] [place] [facility] [address] [id number] [place] [address] Jul, [facility] [place] [facility] [address] [id number] [place] [address] Jun, [facility] [place] [facility] [address] [id number] [place] [address] Jun, [facility] [place] [facility] [address] [id number] [place] [address] Jun, [facility] [place] [facility] [address] [facility] [id number] [place] [address] Jun, [facility] [place] [facility] [address] [id number] [place] [address] Jun, [facility] [place] [facility] [address] [id number] [place] [address] Jun, [facility] [place] [facility] [address] [id number] [place] [address] Jun, [facility] [place] [facility] [address] [id number] [place] [address] Jun, [facility] [place] [facility] [address] [id number], [place] [address] Jun, [facility] [place] [facility] [address] [id number] [place] [address] Jun, [facility] [place] [facility] [address] [id number] [place] [address] Jun, [facility] [place] [facility] [address] [id number] [place] [address] Jun, [facility] [place] [facility] [address] [id number] [place] [address] Jun, [facility] [place] [facility] [address] [id number] [place] [address] Jun, [facility] [place] [facility] [address] [id number] [place] [address] May, [facility] [place] [facility] [address] [id number] [place] [address] May, [facility] [place] [facility] [address] [id number] [place] [address] May, [facility] [place] [facility] [address] [id number] [place] [address] May, [facility] [place] [facility] [address] [id number] [place] [address] May, [facility] [place] [facility] [address] [id number] [place] [address] May, [facility] [place] [facility] [address] [id number] [place] [address] May, [facility] [place] [facility] [address] [id number] [place] [address] May, [facility] [place] [facility] [address] [id number] [place] [address] May, [facility] [place] [facility] [address] [id number] [place] [address] May, [facility] [place] [facility] [address] [id number] [place] [address] 30 Sep, 2013 [facility] [place] [facility] [address] [id number] [place] [address] 30 Sep, 2013 [facility] [place] [facility] [address] [id number] [place] [address] 19 Sep, 2013 [facility] [place] [facility] [address] [id number] [place] [address] 19 Sep, 2013 [facility] [place] [facility] [address] [id number] [place] [address] 18 Sep, 2013 [facility] [place] [facility] [address] [id number] [place] [address] 18 Sep, 2013 [facility] [place] [facility] [address] [id number] [place] [address] 18 Sep, 2013 [facility] [place] [facility] [address] [id number] [place] [address] 18 Sep, 2013 [facility] [place] [facility] [address] [id number] [place] [address] 16 Sep, 2013 [facility] [place] [facility] [address] [id number] [place] [address] 16 Sep, 2013 [facility] [place] [facility] [address] [id number] [place] [address] 08 Sep, 2013 [facility] [place] [facility] [address] [id number] [place] [address] 08 Sep, 2013 [facility] [place] [facility] [address] [id number] [place] [address] 08 Sep, 2013 [facility] [place] [facility] [address] [id number] [place] [address] 08 Sep, 2013 [facility] [place] [facility] [address] [id number] [place] [address] 04 Sep, 2013 [facility] [place] [facility] [address] [id number] [place] [address] 04 Sep, 2013 [facility] [place] [facility] [address] [id number] [place] [address] Mar, [facility] [place] [facility] [address] [id number] [place] [address] Mar, [facility] [place] [facility] [address] [id number] [place] [address] Mar, [facility] [place] [facility] [address] [id number] [place] [address] Jan, [facility] [place] [facility] [address] [id number] [place] [address] 23 Jan, 2014 [facility] [place] [facility] [address] [id number] [place] [address] Jan, [facility] [place] [facility] [address] [id number] [place] [address] 18 Jan, 2014 [facility] [place] [facility] [address] [id number] [place] [address] 16 Jan, 2014 [facility] [place] [facility] [address] [id number] [place] [address] 16 Jan, 2014 [facility] [place] [facility] [address] [id number] [place] [address] 16 Jan, 2014 [facility] [place] [facility] [address] [id number] [place] [address] 16 Jan, 2014 [facility] [place] [facility] [address] [id number] [place] [address] Jan, [facility] [place] [facility] [address] [id number] [place] [address] Jan, [facility] [place] [facility] [address] [id number] [place] [address] Jan, [facility] [place] [facility] [address] [id number] [place] [address] 11 Jan, 2014 [facility] [place] [facility] [address] [id number] [place] [address] Jan, [facility] [place] [facility] [address] [id number] [place] [address] Jan, [facility] [place] [facility] [address] [id number] [place] [address] Jan, [facility] [place] [facility] [address] [id number] [place] [address] Jan, [facility] [place] [facility] [address] [id number] [place] [address] December, [facility] [place] [facility] [address] [id number] [place] [address] December, [facility] [place] [facility] [address] [id number] [place] [address] December, [facility] [place] [facility] [address] [id number] [place] [address] December, [facility] [place] [facility] [address] [id number] [place] [address] December, [facility] [place] [facility] [address] [id number] [place] [address] Nov, [facility] [place] [facility] [address] [id number] [place] [address] Nov, [facility] [place] [facility] [address] [id number] [place] [address] Nov, [facility] [place] [facility] [address] [id number] [place] [address] Nov, [facility] [place] [facility] [address] [id number] [place] [address] Nov, [facility] [place] [facility] [address] [id number] [place] [address] Nov, [facility] [place] [facility] [address] [id number] [place] [address] Nov, [facility] [place] [facility] [address] [id number], [place] [address] 24 Nov, 2013 [facility] [place] [facility] [address] [id number] [place] [address] Nov, [facility] [place] [facility] [address] [id number] [place] [address] Nov, [facility] [place] [facility] [address] [facility] [id number] [place] [address] Oct, [facility] [place] [facility] [address] [id number] [place] [address] Oct, [facility] [place] [facility] [address] [id number] [place] [address] Oct, [facility] [place] [facility] [address] [id number] [place] [address] Oct, [facility] [place] [facility] [address] [facility] [id number] [place] [address] Oct, [facility] [place] [facility] [address] [id number] [place] [address] Oct, [facility] [place] [facility] [address] [id number] [place] [address] Oct, [facility] [place] [facility] [address] [facility] [id number] [place] [address] Oct, [facility] [place] [facility] [address] [id number] [place] [address] Oct, [facility] [place] [facility] [address] [id number] [place] [address] Sep, [facility] [place] [facility] [address] [id number] [place] [address] Sep, [facility] [place] [facility] [address] [id number] [place] [address] Sep, [facility] [place] [facility] [address] [facility] [id number] [place] [address] Sep, [facility] [place] [facility] [address] [id number] [place] [address] Sep, [facility] [place] [facility] [address] [id number] [place] [address] Sep, [facility] [place] [facility] [address] [id number] [place] [address] Sep, [facility] [place] [facility] [address] [id number] [place] [address] Aug, [facility] [place] [facility] [address] [id number] [place] [address] Aug, [facility] [place] [facility] [address] [id number] [place] [address] Aug, [facility] [place] [facility] [address] [id number] [place] [address] Aug, [facility] [place] [facility] [address] [id number] [place] [address] Aug, [facility] [place] [facility] [address] [id number] [place] [address] Aug, [facility] [place] [facility] [address] [id number] [place] [address] Aug, [facility] [place] [facility] [address] [id number] [place] [address] Aug, [facility] [place] [facility] [address] [id number], [place] [address] Jul, [facility] [place] [facility] [address] [id number] [place] [address] Jul, [facility] [place] [facility] [address] [id number] [place] [address] Jul, [facility] [place] [facility] [address] [id number], [place] [address] Jul, [facility] [place] [facility] [address] [id number], [place] [address] Jun, [facility] [place] [facility] [address] [id number] [place] [address] Jun, [facility] [place] [facility] [address] [id number] [place] [address] Jun, [facility] [place] [facility] [address] [id number] [place] [address] May, [facility] [place] [facility] [address] [id number] [place] [address] May, [facility] [place] [facility] [address] [id number] [place] [address] May, [facility] [place] [facility] [address] [id number] [place] [address] May, [facility] [place] [facility] [address] [id number] [place] [address] May, [facility] [place] [facility] [address] [id number] [place] [address] May, [facility] [place] [facility] [address] [facility] [id number] [place] [address] May, [facility] [place] [facility] [address] [facility] [id number] [place] [address] Apr, [facility] [place] [facility] [address] [id number], [place] [address] 17 Apr, 2013 [facility] [place] [facility] [address] [id number], [place] [address] 12 Apr, 2013 [facility] [place] [facility] [address] [id number] [place] [address] 11 Apr, 2013 [facility] [place] [facility] [address] [facility] [id number] [place] [address] 05 Apr, 2013 [facility] [place] [facility] [address] [facility] [id number] [place] [address] Mar, [facility] [place] [facility] [address] [id number] [place] [address] Mar, [facility] [place] [facility] [address] [id number] [place] [address] Mar, [facility] [place] [facility] [address] [id number] [place] [address] Mar, [facility] [place] [facility] [address] [id number] [place] [address] Feb, [facility] [place] [facility] [address] [id number] [place] [address] Feb, [facility] [place] [facility] [address] [id number] [place] [address] Feb, [facility] [place] [facility] [address] [id number] [place] [address] Feb, [facility] [place] [facility] [address] [id number] [place] [address] Feb, [facility] [place] [facility] [address] [id number] [place] [address] Feb, [facility] [place] [facility] [address] [id number] [place] [address] Feb, [facility] [place] [facility] [address] [id number] [place] [address] Feb, [facility] [place] [facility] [address] [id number] [place] [address] Jan, [facility] [place] [facility] [address] [id number] [place] [address] Jan, [facility] [place] [facility] [address] [id number] [place] [address] Jan, [facility] [place] [facility] [address] [id number] [place] [address] Jan, [facility] [place] [facility] [address] [id number] [place] [address] Jan, [facility] [address] [id number] [place] [address] Jan, [facility] [place] [facility] [address] [id number] [place] [address] Jan, [facility] [place] [facility] [address] [id number] [place] [address] December, [facility] [place] [facility] [address] [id number] [place] [address] December, [facility] [address] [id number] [place] [address] 30 Nov, 2012 [facility] [place] [facility] [address] [id number] [place] [address] Nov, [facility] [place] [facility] [address] [id number] [place] [address] Nov, [facility] [place] [facility] [address] [id number] [place] [address] Nov, [facility] [place] [facility] [address] [id number] [place] [address] 24 Nov, 2012 [facility] [place] [facility] [address] [id number] [place] [address] Nov, [facility] [place] [facility] [address] [id number] [place] [address] Nov, [facility] [place] [facility] [address] [id number] [address] 15 Nov, 2012 [facility] [place] [facility] [address] [id number] [place] [address] 11 Nov, 2012 [facility] [place] [facility] [address] [id number] [place] [address] 10 Nov, 2012 [facility] [place] [facility] [address] [id number] [place] [address] 08 Nov, 2012 [facility] [place] [facility] [address] [id number] [place] [address] 05 Nov, 2012 [facility] [address] [id number] [place] [address] Nov, [facility] [place] [facility] [address] [id number] [place] [address] Nov, [facility] [address] [id number] [place] [address] Oct, [facility] [place] [facility] [address] [id number] [place] [address] Oct, [facility] [address] [id number] [place] [address] Oct, [facility] [address] [id number] [place] [address] Oct, [facility] [address] [id number] [place] [address] Oct, [facility] [address] [id number] [place] [address] Oct, [facility] [address] [id number] [place] [address] Oct, [facility] [address] [id number] [place] [address] Oct, [facility] [address] [id number] [place] [address] Oct, [facility] [place] [facility] [address] [id number] [place] [address] Sep, [facility] [place] [facility] [address] [id number] [place] [address] Aug, [facility] [place] [facility] [address] [id number] [place] [address] Aug, [facility] [place] [facility] [address] [id number] [place] [address] Aug, [facility] [place] [facility] [address] [id number] [place] [address] Aug, [facility] [place] [facility] [address] [id number] [place] [address] 31 Jul, 2012 [facility] [place] [facility] [address] [id number] [place] [address] 31 Jul, 2012 [facility] [place] [facility] [address] [id number] [place] [address] Jul, [facility] [address] [id number] [place] [address] 19 Jul, 2012 [facility] [place] [facility] [address] [id number] [place] [address] Jul, [facility] [address] [id number] [place] [address] 15 Jul, 2012 [facility] [place] [facility] [address] [id number] [place] [address] 15 Jul, 2012 [facility] [place] [facility] [address] [id number] [place] [address] 14 Jul, 2012 [facility] [place] [facility] [address] [id number] [place] [address] 14 Jul, 2012 [facility] [place] [facility] [address] [id number] [place] [address] May, [facility] [place] [facility] [address] [id number] [place] [address] 22 May, 2012 [facility] [place] [facility] [address] [id number] [place] [address] 16 May, 2012 [facility] [place] [facility] [address] [id number] [place] [address] 16 May, 2012 [facility] [place] [facility] [address] [id number] [place] [address] 12 May, 2012 [facility] [place] [facility] [address] [id number] [place] [address] May, [facility] [place] [facility] [address] [id number] [place] [address] 27 Apr, 2012 [facility] [place] [facility] [address] [id number] [place] [address] 27 Apr, 2012 [facility] [place] [facility] [address] [id number] [place] [address] 24 Apr, 2012 [facility] [place] [facility] [address] [id number] [place] [address] 18 Apr, 2012 [facility] [place] [facility] [address] [id number] [place] [address] 14 Apr, 2012 [facility] [place] [facility] [address] [id number] [place] [address] 12 Apr, 2012 [facility] [place] [facility] [address] [id number] [place] [address] Mar, [facility] [place] [facility] [address] [id number] [place] [address] Feb, [facility] [place] [facility] [address] [id number] [place] [address] Feb, [facility] [place] [facility] [address] [address] [id number] [place] [address] Feb, [facility] [place] [facility] [address] [id number] [place] [address] Jan, [facility] [place] [facility] [address] [id number] [place] [address] December, [facility] [place] [facility] [address] [id number] [place] [address] December, [facility] [place] [facility] [address] [id number] [place] [address] December, [facility] [place] [facility] [address] [id number] [place] [address] December, [facility] [place] [facility] [address] [id number] [place] [address] December, [facility] [address] [id number] [place] [address] December, [facility] [address] [id number] [place] [address] Nov, [facility] [address] [id number] [place] [address] Nov, [facility] [address] [id number] [place] [address] 17 Nov, 2011 [facility] [address] [id number] [place] [address] Nov, [facility] [address] [id number] [place] [address] 16 Nov, 2011 [facility] [address] [id number] [place] [address] 13 Nov, 2011 [facility] [address] [id number] [place] [address] 12 Nov, 2011 [facility] [address] [id number] [place] [address] Nov, [facility] [address] [id number] [place] [address] 05 Nov, 2011 [facility] [address] [id number] [place] [address] 04 Nov, 2011 [facility] [address] [id number] [place] [address] 30 Oct, 2011 [facility] [place] [facility] [address] [id number] [place] [address] 29 Oct, 2011 [facility] [address] [id number] [place] [address] 28 Oct, 2011 [facility] [address] [id number] [place] [address] Oct, [facility] [place] [facility] [address] [id number] [place] [address] 26 Oct, 2011 [facility] [place] [facility] [address] [id number] [place] [address] 23 Oct, 2011 [facility] [place] [facility] [address] [id number] [place] [address] 21 Oct, 2011 [facility] [place] [facility] [address] [id number] [place] [address] 19 Oct, 2011 [facility] [place] [facility] [address] [id number] [place] [address] 08 Oct, 2011 [facility] [place] [facility] [address] [id number] [place] [address] 07 Oct, 2011 [facility] [place] [facility] [address] [id number] [place] [address] 06 Oct, 2011 [facility] [place] [facility] [address] [id number] [place] [address] 05 Oct, 2011 [facility] [place] [facility] [address] [id number] [place] [address] 16 Sep, 2011 [facility] [place] [facility] [address] [id number] [place] [address] 14 Sep, 2011 [facility] [place] [facility] [address] [id number] [place] [address] 12 Sep, 2011 [facility] [place] [facility] [address] [id number] [place] [address] 10 Sep, 2011 [facility] [place] [facility] [address] [id number] [place] [address] 06 Sep, 2011 [facility] [place] [facility] [address] [id number] [place] [address] 06 Sep, 2011 [facility] [place] [facility] [address] [facility] [id number] [place] [address] 06 Sep, 2011 [facility] [place] [facility] [address] [id number] [place] [address] 06 Sep, 2011 [facility] [address] [id number] [place] [address] Sep, [facility] [address] [id number] [place] [address] 30 Aug, 2011 [facility] [address] [id number] [place] [address] Aug, [facility] [address] [id number] [place] [address] Aug, [facility] [address] [id number] [place] [address] Aug, [facility] [address] [id number] [place] [address] Aug, [facility] [address] [id number] [place] [address] Aug, [facility] [address] [id number] [place] [address] Aug, [facility] [address] [id number] [place] [address] 24 Jul, 2011 [facility] [address] [id number] [place] [address] 16 Jul, 2011 [facility] [address] [id number] [place] [address] 16 Jul, 2011 [facility] [address] [id number] [place] [address] 14 Jul, 2011 [facility] [place] [facility] [address] [id number] [place] [address] 30 Jun, 2011 [facility] [address] [id number] [place] [address] Jun, [facility] [address] [id number] [place] [address] May, [facility] [address] [facility] [id number] [place] [address] Mar, [facility] [address] [facility] [id number], [place] [address] Jan, [facility] [address] [facility] [id number] [place] [address] May, IMMUNIZATIONS No Known Immunizations SOCIAL HISTORY Never Assessed REASON FOR VISIT [facility] [place], [place] PLAN OF CARE VITAL SIGNS MEDICATIONS Unknown [...]
--- OUTSIDE RECORDS SUMMARY | 2019-03-23 07:17 | XMS REPORT ---
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 Name Role Phone Migration, Doctor Unavailable Unavailable PROBLEMS Type Condition ICD9-CM Code OHB20-US Code Onset Dates Condition Status SNOMED Code Problem Other postablative hypothyroidism 244.1 Active 171393242 Problem Major depressive disorder, recurrent episode, severe, without mention of psychotic behavior 296.33 Active 91500177 ALLERGIES No Information ENCOUNTERS Encounter Location Date Diagnosis [place] [id number] [place] [address] Sep, Unspecified mood [affective] disorder [place] [id number] [place] [address] Aug, Unspecified mood [affective] disorder [place] [id number] [place] [address] Jul, Unspecified mood [affective] disorder [address] [place] [id number] [place] [address] Jun, Unspecified mood [affective] disorder [place] [id number] [place] [address] Mar, Affective disorder 296.90 [place] [id number] [place] [address] Mar, [place] [id number] [place] [address] Feb, Nexplanon removal V25.43 and Initiation of OCP (BCP) V25.01 [place] [id number] [place] [address] Feb, Episodic mood disorder 296.90 [place] [id number] [place] [address] [place] [address] Feb, [facility] [address] [place] [address] Feb, Routine gynecological examination V72.31 ; Pap test, as part of routine gynecological examination V76.2 ; Breast cancer screening V76.10 ; Nexplanon in place V45.52 and Rash 782.1 [facility] [address], [place] [address] Jan, Episodic mood disorder 296.90 [facility] [address], [place] [address] Jan, [facility] [address], [place] [address] December, Episodic mood disorder 296.90 [facility] [address], [place] [address] December, [facility] [address], [place] [address] December, [facility] [address], [place] [address] December, [facility] [address], [place] [address] Nov, [facility] [address], [place] [address] Nov, [facility] [address], [place] [address] Nov, [facility] [address], [place] [address] Oct, [facility] [address], [place] [address] Oct, [facility] [id number] [address] Oct, [facility] [id number] [place] [address] Oct, [facility] [place] [facility] [address] [id number] [place] [address] Oct, [facility] [place] [facility] [address] [id number] [place] [address] Oct, [facility] [place] [facility] [address] [id number] [place] [address] Sep, 2014 [facility] [place] [facility] [address] [id number] [place] [address] Sep, 2014 [facility] [place] [facility] [address] [id number] [place] [address] Sep, 2014 [facility] [place] [facility] [address] [id number] [place] [address] Sep, 2014 [facility] [place] [facility] [address] [id number] [place] [address] Sep, [facility] [place] [facility] [address] [id number] [place] [address] Sep, [facility] [place] [facility] [address] [id number] [place] [address] Aug, [facility] [place] [facility] [address] [id number] [place] [address] Aug, [facility] [place] [facility] [address] [id number] [place] [address] Aug, [facility] [place] [facility] [address] [id number] [place] [address] Aug, [facility] [place] [facility] [address] [id number] [place] [address] Aug, [facility] [place] [facility] [address] [id number] [place] [address] Aug, [facility] [place] [facility] [address] [id number] [place] [address] Aug, [facility] [place] [facility] [address] [id number] [place] [address] 14 Aug, 2014 [facility] [place] [facility] [address] [id number] [place] [address] Aug, [facility] [place] [facility] [address] [id number] [place] [address] Aug, [facility] [place] [facility] [address] [id number] [place] [address] Aug, [facility] [place] [facility] [address] [id number] [place] [address] Aug, [facility] [place] [facility] [address] [id number] [place] [address] Aug, [facility] [place] [facility] [address] [id number] [place] [address] Aug, [facility] [place] [facility] [address] [id number] [place] [address] Aug, [facility] [place] [facility] [address] [id number] [place] [address] Aug, [facility] [place] [facility] [address] [id number] [place] [address] Jul, [facility] [place] [facility] [address] [id number], [place] [address] 15 Jul, 2014 [facility] [place] [facility] [address] [id number], [place] [address] 15 Jul, 2014 [facility] [place] [facility] [address] [id number] [place] [address] Jul, [facility] [place] [facility] [address] [id number] [place] [address] Jul, [facility] [place] [facility] [address] [id number] [place] [address] Jul, [facility] [place] [facility] [address] [id number] [place] [address] 11 Jul, 2014 [facility] [place] [facility] [address] [id number] [place] [address] Jul, [facility] [place] [facility] [address] [id number] [place] [address] Jul, [facility] [place] [facility] [address] [id number] [place] [address] 05 Jul, 2014 [facility] [place] [facility] [address] [id number] [place] [address] 05 Jul, 2014 [facility] [place] [facility] [address] [id number] [place] [address] Jul, [facility] [place] [facility] [address] [id number] [place] [address] Jul, [facility] [place] [facility] [address] [id number] [place] [address] Jun, [facility] [place] [facility] [address] [id number] [place] [address] Jun, [facility] [place] [facility] [address] [id number] [place] [address] Jun, [facility] [place] [facility] [address] [facility] [id number] [place] [address] Jun, [facility] [place] [facility] [address] [id number] [place] [address] Jun, [facility] [place] [facility] [address] [id number] [place] [address] Jun, [facility] [place] [facility] [address] [id number] [place] [address] Jun, [facility] [place] [facility] [address] [id number] [place] [address] Jun, [facility] [place] [facility] [address] [id number], [place] [address] Jun, [facility] [place] [facility] [address] [id number] [place] [address] Jun, [facility] [place] [facility] [address] [id number] [place] [address] Jun, [facility] [place] [facility] [address] [id number] [place] [address] Jun, [facility] [place] [facility] [address] [id number] [place] [address] Jun, [facility] [place] [facility] [address] [id number] [place] [address] Jun, [facility] [place] [facility] [address] [id number] [place] [address] May, [facility] [place] [facility] [address] [id number] [place] [address] May, [facility] [place] [facility] [address] [id number] [place] [address] May, [facility] [place] [facility] [address] [id number] [place] [address] May, [facility] [place] [facility] [address] [id number] [place] [address] May, [facility] [place] [facility] [address] [id number] [place] [address] May, [facility] [place] [facility] [address] [id number] [place] [address] May, [facility] [place] [facility] [address] [id number] [place] [address] May, [facility] [place] [facility] [address] [id number] [place] [address] May, [facility] [place] [facility] [address] [id number] [place] [address] May, [facility] [place] [facility] [address] [id number] [place] [address] 30 Sep, 2013 [facility] [place] [facility] [address] [id number] [place] [address] 30 Sep, 2013 [facility] [place] [facility] [address] [id number] [place] [address] 19 Sep, 2013 [facility] [place] [facility] [address] [id number] [place] [address] 19 Sep, 2013 [facility] [place] [facility] [address] [id number] [place] [address] 18 Sep, 2013 [facility] [place] [facility] [address] [id number] [place] [address] 18 Sep, 2013 [facility] [place] [facility] [address] [id number] [place] [address] 18 Sep, 2013 [facility] [place] [facility] [address] [id number] [place] [address] 18 Sep, 2013 [facility] [place] [facility] [address] [id number] [place] [address] 16 Sep, 2013 [facility] [place] [facility] [address] [id number] [place] [address] 16 Sep, 2013 [facility] [place] [facility] [address] [id number] [place] [address] 08 Sep, 2013 [facility] [place] [facility] [address] [id number] [place] [address] 08 Sep, 2013 [facility] [place] [facility] [address] [id number] [place] [address] 08 Sep, 2013 [facility] [place] [facility] [address] [id number] [place] [address] 08 Sep, 2013 [facility] [place] [facility] [address] [id number] [place] [address] 04 Sep, 2013 [facility] [place] [facility] [address] [id number] [place] [address] 04 Sep, 2013 [facility] [place] [facility] [address] [id number] [place] [address] Mar, [facility] [place] [facility] [address] [id number] [place] [address] Mar, [facility] [place] [facility] [address] [id number] [place] [address] Mar, [facility] [place] [facility] [address] [id number] [place] [address] Jan, [facility] [place] [facility] [address] [id number] [place] [address] 23 Jan, 2014 [facility] [place] [facility] [address] [id number] [place] [address] Jan, [facility] [place] [facility] [address] [id number] [place] [address] 18 Jan, 2014 [facility] [place] [facility] [address] [id number] [place] [address] 16 Jan, 2014 [facility] [place] [facility] [address] [id number] [place] [address] 16 Jan, 2014 [facility] [place] [facility] [address] [id number] [place] [address] 16 Jan, 2014 [facility] [place] [facility] [address] [id number] [place] [address] 16 Jan, 2014 [facility] [place] [facility] [address] [id number] [place] [address] Jan, [facility] [place] [facility] [address] [id number] [place] [address] Jan, [facility] [place] [facility] [address] [id number] [place] [address] Jan, [facility] [place] [facility] [address] [id number] [place] [address] 11 Jan, 2014 [facility] [place] [facility] [address] [id number] [place] [address] Jan, [facility] [place] [facility] [address] [id number] [place] [address] Jan, [facility] [place] [facility] [address] [id number] [place] [address] Jan, [facility] [place] [facility] [address] [id number] [place] [address] Jan, [facility] [place] [facility] [address] [id number] [place] [address] December, [facility] [place] [facility] [address] [id number] [place] [address] December, [facility] [place] [facility] [address] [id number] [place] [address] December, [facility] [place] [facility] [address] [id number] [place] [address] December, [facility] [place] [facility] [address] [id number] [place] [address] December, [facility] [place] [facility] [address] [id number] [place] [address] Nov, [facility] [place] [facility] [address] [id number] [place] [address] Nov, [facility] [place] [facility] [address] [id number] [place] [address] Nov, [facility] [place] [facility] [address] [id number] [place] [address] Nov, [facility] [place] [facility] [address] [id number] [place] [address] Nov, [facility] [place] [facility] [address] [id number] [place] [address] Nov, [facility] [place] [facility] [address] [id number] [place] [address] Nov, [facility] [place] [facility] [address] [id number], [place] [address] 24 Nov, 2013 [facility] [place] [facility] [address] [id number] [place] [address] Nov, [facility] [place] [facility] [address] [id number] [place] [address] Nov, [facility] [place] [facility] [address] [facility] [id number] [place] [address] Oct, [facility] [place] [facility] [address] [id number] [place] [address] Oct, [facility] [place] [facility] [address] [id number] [place] [address] Oct, [facility] [place] [facility] [address] [id number] [place] [address] Oct, [facility] [place] [facility] [address] [facility] [id number] [place] [address] Oct, [facility] [place] [facility] [address] [id number] [place] [address] Oct, [facility] [place] [facility] [address] [id number] [place] [address] Oct, [facility] [place] [facility] [address] [facility] [id number] [place] [address] Oct, [facility] [place] [facility] [address] [id number] [place] [address] Oct, [facility] [place] [facility] [address] [id number] [place] [address] Sep, [facility] [place] [facility] [address] [id number] [place] [address] Sep, [facility] [place] [facility] [address] [id number] [place] [address] Sep, [facility] [place] [facility] [address] [facility] [id number] [place] [address] Sep, [facility] [place] [facility] [address] [id number] [place] [address] Sep, [facility] [place] [facility] [address] [id number] [place] [address] Sep, [facility] [place] [facility] [address] [id number] [place] [address] Sep, [facility] [place] [facility] [address] [id number] [place] [address] Aug, [facility] [place] [facility] [address] [id number] [place] [address] Aug, [facility] [place] [facility] [address] [id number] [place] [address] Aug, [facility] [place] [facility] [address] [id number] [place] [address] Aug, [facility] [place] [facility] [address] [id number] [place] [address] Aug, [facility] [place] [facility] [address] [id number] [place] [address] Aug, [facility] [place] [facility] [address] [id number] [place] [address] Aug, [facility] [place] [facility] [address] [id number] [place] [address] Aug, [facility] [place] [facility] [address] [id number], [place] [address] Jul, [facility] [place] [facility] [address] [id number] [place] [address] Jul, [facility] [place] [facility] [address] [id number] [place] [address] Jul, [facility] [place] [facility] [address] [id number], [place] [address] Jul, [facility] [place] [facility] [address] [id number], [place] [address] Jun, [facility] [place] [facility] [address] [id number] [place] [address] Jun, [facility] [place] [facility] [address] [id number] [place] [address] Jun, [facility] [place] [facility] [address] [id number] [place] [address] May, [facility] [place] [facility] [address] [id number] [place] [address] May, [facility] [place] [facility] [address] [id number] [place] [address] May, [facility] [place] [facility] [address] [id number] [place] [address] May, [facility] [place] [facility] [address] [id number] [place] [address] May, [facility] [place] [facility] [address] [id number] [place] [address] May, [facility] [place] [facility] [address] [facility] [id number] [place] [address] May, [facility] [place] [facility] [address] [facility] [id number] [place] [address] Apr, [facility] [place] [facility] [address] [id number], [place] [address] 17 Apr, 2013 [facility] [place] [facility] [address] [id number], [place] [address] 12 Apr, 2013 [facility] [place] [facility] [address] [id number] [place] [address] 11 Apr, 2013 [facility] [place] [facility] [address] [facility] [id number] [place] [address] 05 Apr, 2013 [facility] [place] [facility] [address] [facility] [id number] [place] [address] Mar, [facility] [place] [facility] [address] [id number] [place] [address] Mar, [facility] [place] [facility] [address] [id number] [place] [address] Mar, [facility] [place] [facility] [address] [id number] [place] [address] Mar, [facility] [place] [facility] [address] [id number] [place] [address] Feb, [facility] [place] [facility] [address] [id number] [place] [address] Feb, [facility] [place] [facility] [address] [id number] [place] [address] Feb, [facility] [place] [facility] [address] [id number] [place] [address] Feb, [facility] [place] [facility] [address] [id number] [place] [address] Feb, [facility] [place] [facility] [address] [id number] [place] [address] Feb, [facility] [place] [facility] [address] [id number] [place] [address] Feb, [facility] [place] [facility] [address] [id number] [place] [address] Feb, [facility] [place] [facility] [address] [id number] [place] [address] Jan, [facility] [place] [facility] [address] [id number] [place] [address] Jan, [facility] [place] [facility] [address] [id number] [place] [address] Jan, [facility] [place] [facility] [address] [id number] [place] [address] Jan, [facility] [place] [facility] [address] [id number] [place] [address] Jan, [facility] [place] [facility] [address] [id number] [place] [address] Jan, [facility] [place] [facility] [address] [id number] [place] [address] Jan, [facility] [place] [facility] [address] [id number] [place] [address] December, [facility] [place] [facility] [address] [id number] [place] [address] December, [facility] [place] [facility] [address] [id number] [place] [address] 30 Nov, 2012 [facility] [place] [facility] [address] [id number] [place] [address] Nov, [facility] [place] [facility] [address] [id number] [place] [address] Nov, [facility] [place] [facility] [address] [id number] [place] [address] Nov, [facility] [place] [facility] [address] [id number] [place] [address] 24 Nov, 2012 [facility] [place] [facility] [address] [id number] [place] [address] Nov, [facility] [place] [facility] [address] [id number] [place] [address] Nov, [facility] [place] [facility] [address] [id number], [place] [address] 15 Nov, 2012 [facility] [place] [facility] [address] [id number] [place] [address] 11 Nov, 2012 [facility] [place] [facility] [address] [id number] [place] [address] 10 Nov, 2012 [facility] [place] [facility] [address] [id number] [place] [address] 08 Nov, 2012 [facility] [place] [facility] [address] [id number] [place] [address] 05 Nov, 2012 [facility] [place] [facility] [address] [id number] [place] [address] Nov, [facility] [place] [facility] [address] [id number] [place] [address] Nov, [facility] [place] [facility] [address] [id number] [place] [address] Oct, [facility] [place] [facility] [address] [id number] [place] [address] Oct, [facility] [place] [facility] [address] [id number] [place] [address] Oct, [facility] [place] [facility] [address] [id number] [place] [address] Oct, [facility] [place] [facility] [address] [id number] [place] [address] Oct, [facility] [place] [facility] [address] [id number] [place] [address] Oct, [facility] [place] [facility] [address] [id number] [place] [address] Oct, [facility] [place] [facility] [address] [id number] [place] [address] Oct, [facility] [place] [facility] [address] [id number] [place] [address] Oct, [facility] [place] [facility] [address] [id number] [place] [address] Sep, [facility] [place] [facility] [address] [id number] [place] [address] Aug, [facility] [place] [facility] [address] [id number] [place] [address] Aug, [facility] [place] [facility] [address] [id number] [place] [address] Aug, [facility] [place] [facility] [address] [id number] [place] [address] Aug, [facility] [place] [facility] [address] [id number] [place] [address] 31 Jul, 2012 [facility] [place] [facility] [address] [id number] [place] [address] 31 Jul, 2012 [facility] [place] [facility] [address] [id number] [place] [address] Jul, [facility] [place] [address] [id number] [place] [address] 19 Jul, 2012 [facility] [place] [facility] [address] [id number] [place] [address] Jul, [facility] [place] [address] [id number] [place] [address] 15 Jul, 2012 [facility] [place] [facility] [address] [id number] [place] [address] 15 Jul, 2012 [facility] [place] [facility] [address] [id number] [place] [address] 14 Jul, 2012 [facility] [place] [facility] [address] [id number] [place] [address] 14 Jul, 2012 [facility] [place] [facility] [address] [id number] [place] [address] May, [facility] [place] [facility] [address] [id number] [place] [address] 22 May, 2012 [facility] [place] [facility] [address] [id number] [place] [address] 16 May, 2012 [facility] [place] [facility] [address] [id number] [place] [address] 16 May, 2012 [facility] [place] [facility] [address] [id number] [place] [address] 12 May, 2012 [facility] [place] [facility] [address] [id number] [place] [address] May, [facility] [place] [facility] [address] [id number] [place] [address] 27 Apr, 2012 [facility] [place] [facility] [address] [id number] [place] [address] 27 Apr, 2012 [facility] [place] [facility] [address] [id number] [place] [address] 24 Apr, 2012 [facility] [place] [facility] [address] [id number] [place] [address] 18 Apr, 2012 [facility] [place] [facility] [address] [id number] [place] [address] 14 Apr, 2012 [facility] [place] [facility] [address] [id number] [place] [address] 12 Apr, 2012 [facility] [place] [facility] [address] [id number] [place] [address] Mar, [facility] [place] [facility] [address] [id number] [place] [address] Feb, [facility] [place] [facility] [address] [id number] [place] [address] Feb, [facility] [place] [facility] [address] [id number] [place] [address] Feb, [facility] [place] [facility] [address] [id number] [place] [address] Jan, [facility] [place] [facility] [address] [id number] [place] [address] December, [facility] [place] [facility] [address] [id number] [place] [address] December, [facility] [place] [facility] [address] [id number] [place] [address] December, [facility] [place] [facility] [address] [address] [id number] [place] [address] December, [facility] [place] [facility] [address] [id number] [place] [address] December, [facility] [address] [id number] [place] [address] December, [facility] [address] [id number] [place] [address] Nov, [facility] [address] [id number] [place] [address] Nov, [facility] [address] [id number] [place] [address] 17 Nov, 2011 [facility] [address] [id number] [place] [address] Nov, [facility] [address] [id number] [place] [address] 16 Nov, 2011 [facility] [address] [id number] [place] [address] 13 Nov, 2011 [facility] [address] [id number] [place] [address] 12 Nov, 2011 [facility] [address] [id number] [place] [address] Nov, [facility] [address] [id number] [place] [address] 05 Nov, 2011 [facility] [address] [id number] [place] [address] 04 Nov, 2011 [facility] [address] [id number] [place] [address] 30 Oct, 2011 [facility] [place] [facility] [address] [id number] [place] [address] 29 Oct, 2011 [facility] [address] [id number] [place] [address] 28 Oct, 2011 [facility] [address] [id number] [place] [address] Oct, [facility] [place] [facility] [address] [id number] [place] [address] 26 Oct, 2011 [facility] [place] [facility] [address] [id number] [place] [address] 23 Oct, 2011 [facility] [place] [facility] [address] [id number] [place] [address] 21 Oct, 2011 [facility] [place] [facility] [address] [id number] [place] [address] 19 Oct, 2011 [facility] [place] [facility] [address] [id number] [place] [address] 08 Oct, 2011 [facility] [place] [facility] [address] [id number] [place] [address] 07 Oct, 2011 [facility] [place] [facility] [address] [id number] [place] [address] 06 Oct, 2011 [facility] [place] [facility] [address] [id number] [place] [address] 05 Oct, 2011 [facility] [place] [facility] [address] [id number] [place] [address] 16 Sep, 2011 [facility] [place] [facility] [address] [id number] [place] [address] 14 Sep, 2011 [facility] [place] [facility] [address] [id number] [place] [address] 12 Sep, 2011 [facility] [place] [facility] [address] [id number] [place] [address] 10 Sep, 2011 [facility] [place] [facility] [address] [id number] [place] [address] 06 Sep, 2011 [facility] [place] [facility] [address] [id number] [place] [address] 06 Sep, 2011 [facility] [place] [facility] [address] [facility] [id number] [place] [address] 06 Sep, 2011 [facility] [place] [facility] [address] [id number] [place] [address] 06 Sep, 2011 [facility] [address] [id number] [place] [address] Sep, [facility] [address] [id number] [place] [address] 30 Aug, 2011 [facility] [address] [id number] [place] [address] Aug, [facility] [place] [facility] [address] [id number] [place] [address] Aug, [facility] [address] [id number] [place] [address] Aug, [facility] [address] [id number] [place] [address] Aug, [facility] [address] [id number] [place] [address] Aug, [facility] [address] [id number] [place] [address] Aug, [facility] [address] [id number] [place] [address] 24 Jul, 2011 [facility] [address] [id number] [place] [address] 16 Jul, 2011 [facility] [address] [id number] [place] [address] 16 Jul, 2011 [facility] [address] [id number] [place] [address] 14 Jul, 2011 [facility] [place] [facility] [address] [id number] [place] [address] 30 Jun, 2011 [facility] [address] [id number] [place] [address] Jun, [facility] [place] [facility] [address] [id number] [place] [address] May, [facility] [address] [facility] [id number] [place] [address] Mar, [facility] [address] [facility] [id number] [address] Jan, [facility] [address] [facility] [id number] [place] [address] May, IMMUNIZATIONS No Known Immunizations SOCIAL HISTORY Never Assessed REASON FOR VISIT [facility] PLAN OF CARE VITAL SIGNS [...]
--- OUTSIDE RECORDS SUMMARY | 2019-03-23 07:17 | XMS REPORT ---
Author Author Migration, Doctor Organization [facility] Address Unknown Phone Unavailable Care Team Providers Care Farmworker Animal Name Role Phone Migration, Doctor Unavailable Unavailable PROBLEMS Type Condition ICD9-CM Code WUZ46-RH Code Onset Dates Condition Status SNOMED Code Problem Other postablative hypothyroidism 244.1 Active [id number] Problem Major depressive disorder, recurrent episode, severe, without mention of psychotic behavior 296.33 Active 13206301 ALLERGIES No Information ENCOUNTERS Encounter Location Date Diagnosis [place] [id number] [place] [address] Sep, Unspecified mood [affective] disorder [place] [id number] [place] [address] Aug, Unspecified mood [affective] disorder [place] [id number] [place] [address] Jul, Unspecified mood [affective] disorder [address] [place] [id number] [place] [address] Jun, Unspecified mood [affective] disorder [place] [id number] [place] [address] Mar, Affective disorder 296.90 [place] [id number] [place] [address] Mar, [place] [id number] [place] [address] Feb, Nexplanon removal V25.43 and Initiation of OCP (BCP) V25.01 [place] [id number] [place] [address] Feb, Episodic mood disorder 296.90 [place] [id number] [place] [address] [place] [address] Feb, [facility] [id number] [address] Feb, Routine gynecological examination V72.31 ; Pap test, as part of routine gynecological examination V76.2 ; Breast cancer screening V76.10 ; Nexplanon in place V45.52 and Rash 782.1 [facility] [id number] [address] Jan, Episodic mood disorder 296.90 [facility] [id number] [address] Jan, [facility] [id number] [address] December, Episodic mood disorder 296.90 [facility] [id number] [address] December, [facility] [id number] [address] December, [facility] [id number] [address] December, [facility] [id number] [address] Nov, [facility] [id number] [address] Nov, [facility] [id number] [address] Nov, [facility] [id number] [address] Oct, [facility] [id number] [address] Oct, [facility] [id number] [address] Oct, [facility] [id number] [address] Oct, [facility] [place] [facility] [address] [id number] [place] [address] Oct, [facility] [place] [facility] [address] [id number] [place] [address] Oct, [facility] [place] [facility] [address] [id number] [place] [address] Sep, 2014 [facility] [place] [facility] [address] [id number] [place] [address] Sep, 2014 [facility] [place] [facility] [address] [id number] [place] [address] Sep, 2014 [facility] [place] [facility] [address] [id number] [place] [address] Sep, 2014 [facility] [place] [facility] [address] [id number] [place] [address] Sep, [facility] [place] [facility] [address] [id number] [place] [address] Sep, [facility] [place] [facility] [address] [id number] [place] [address] Aug, [facility] [place] [facility] [address] [id number] [place] [address] Aug, [facility] [place] [facility] [address] [id number] [place] [address] Aug, [facility] [place] [facility] [address] [id number] [place] [address] Aug, [facility] [place] [facility] [address] [id number] [place] [address] Aug, [facility] [place] [facility] [address] [id number] [place] [address] Aug, [facility] [place] [facility] [address] [id number] [place] [address] Aug, [facility] [place] [facility] [address] [id number] [place] [address] 14 Aug, 2014 [facility] [place] [facility] [address] [id number] [place] [address] Aug, [facility] [place] [facility] [address] [id number] [place] [address] Aug, [facility] [place] [facility] [address] [id number] [place] [address] Aug, [facility] [place] [facility] [address] [id number] [place] [address] Aug, [facility] [place] [facility] [address] [id number] [place] [address] Aug, [facility] [place] [facility] [address] [id number] [place] [address] Aug, [facility] [place] [facility] [address] [id number] [place] [address] Aug, [facility] [place] [facility] [address] [id number] [place] [address] Aug, [facility] [place] [facility] [address] [id number] [place] [address] Jul, [facility] [place] [facility] [address] [id number] [address] 15 Jul, 2014 [facility] [place] [facility] [address] [id number] [address] 15 Jul, 2014 [facility] [place] [facility] [address] [id number] [place] [address] Jul, [facility] [place] [facility] [address] [id number] [place] [address] Jul, [facility] [place] [facility] [address] [id number] [place] [address] Jul, [facility] [place] [facility] [address] [id number] [place] [address] 11 Jul, 2014 [facility] [place] [facility] [address] [id number] [place] [address] Jul, [facility] [place] [facility] [address] [id number] [place] [address] Jul, [facility] [place] [facility] [address] [id number] [place] [address] 05 Jul, 2014 [facility] [place] [facility] [address] [id number] [place] [address] 05 Jul, 2014 [facility] [place] [facility] [address] [id number] [place] [address] Jul, [facility] [place] [facility] [address] [id number] [place] [address] Jul, [facility] [place] [facility] [address] [id number] [place] [address] Jun, [facility] [place] [facility] [address] [id number] [place] [address] Jun, [facility] [place] [facility] [address] [id number] [place] [address] Jun, [facility] [place] [facility] [address] [facility] [id number] [place] [address] Jun, [facility] [place] [facility] [address] [id number] [place] [address] Jun, [facility] [place] [facility] [address] [id number] [place] [address] Jun, [facility] [place] [facility] [address] [id number] [place] [address] Jun, [facility] [place] [facility] [address] [id number] [place] [address] Jun, [facility] [place] [facility] [address] [id number] [address] Jun, [facility] [place] [facility] [address] [id number] [place] [address] Jun, [facility] [place] [facility] [address] [id number] [place] [address] Jun, [facility] [place] [facility] [address] [id number] [place] [address] Jun, [facility] [place] [facility] [address] [id number] [place] [address] Jun, [facility] [place] [facility] [address] [id number] [place] [address] Jun, [facility] [place] [facility] [address] [id number] [place] [address] May, [facility] [place] [facility] [address] [id number] [place] [address] May, [facility] [place] [facility] [address] [id number] [place] [address] May, [facility] [place] [facility] [address] [id number] [place] [address] May, [facility] [place] [facility] [address] [id number] [place] [address] May, [facility] [place] [facility] [address] [id number] [place] [address] May, [facility] [place] [facility] [address] [id number] [place] [address] May, [facility] [place] [facility] [address] [id number] [place] [address] May, [facility] [place] [facility] [address] [id number] [place] [address] May, [facility] [place] [facility] [address] [id number] [place] [address] May, [facility] [place] [facility] [address] [id number] [place] [address] 30 Sep, 2013 [facility] [place] [facility] [address] [id number] [place] [address] 30 Sep, 2013 [facility] [place] [facility] [address] [id number] [place] [address] 19 Sep, 2013 [facility] [place] [facility] [address] [id number] [place] [address] 19 Sep, 2013 [facility] [place] [facility] [address] [id number] [place] [address] 18 Sep, 2013 [facility] [place] [facility] [address] [id number] [place] [address] 18 Sep, 2013 [facility] [place] [facility] [address] [id number] [place] [address] 18 Sep, 2013 [facility] [place] [facility] [address] [id number] [place] [address] 18 Sep, 2013 [facility] [place] [facility] [address] [id number] [place] [address] 16 Sep, 2013 [facility] [place] [facility] [address] [id number] [place] [address] 16 Sep, 2013 [facility] [place] [facility] [address] [id number] [place] [address] 08 Sep, 2013 [facility] [place] [facility] [address] [id number] [place] [address] 08 Sep, 2013 [facility] [place] [facility] [address] [id number] [place] [address] 08 Sep, 2013 [facility] [place] [facility] [address] [id number] [place] [address] 08 Sep, 2013 [facility] [place] [facility] [address] [id number] [place] [address] 04 Sep, 2013 [facility] [place] [facility] [address] [id number] [place] [address] 04 Sep, 2013 [facility] [place] [facility] [address] [id number] [place] [address] Mar, [facility] [place] [facility] [address] [id number] [place] [address] Mar, [facility] [place] [facility] [address] [id number] [place] [address] Mar, [facility] [place] [facility] [address] [id number] [place] [address] Jan, [facility] [place] [facility] [address] [id number] [place] [address] 23 Jan, 2014 [facility] [place] [facility] [address] [id number] [place] [address] Jan, [facility] [place] [facility] [address] [id number] [place] [address] 18 Jan, 2014 [facility] [place] [facility] [address] [id number] [place] [address] 16 Jan, 2014 [facility] [place] [facility] [address] [id number] [place] [address] 16 Jan, 2014 [facility] [place] [facility] [address] [id number] [place] [address] 16 Jan, 2014 [facility] [place] [facility] [address] [id number] [place] [address] 16 Jan, 2014 [facility] [place] [facility] [address] [id number] [place] [address] Jan, [facility] [place] [facility] [address] [id number] [place] [address] Jan, [facility] [place] [facility] [address] [id number] [place] [address] Jan, [facility] [place] [facility] [address] [id number] [place] [address] 11 Jan, 2014 [facility] [place] [facility] [address] [id number] [place] [address] Jan, [facility] [place] [facility] [address] [id number] [place] [address] Jan, [facility] [place] [facility] [address] [id number] [place] [address] Jan, [facility] [place] [facility] [address] [id number] [place] [address] Jan, [facility] [place] [facility] [address] [id number] [place] [address] December, [facility] [place] [facility] [address] [id number] [place] [address] December, [facility] [place] [facility] [address] [id number] [place] [address] December, [facility] [place] [facility] [address] [id number] [place] [address] December, [facility] [place] [facility] [address] [id number] [place] [address] December, [facility] [place] [facility] [address] [id number] [place] [address] Nov, [facility] [place] [facility] [address] [id number] [place] [address] Nov, [facility] [place] [facility] [address] [id number] [place] [address] Nov, [facility] [place] [facility] [address] [id number] [place] [address] Nov, [facility] [place] [facility] [address] [id number] [place] [address] Nov, [facility] [place] [facility] [address] [id number] [place] [address] Nov, [facility] [place] [facility] [address] [id number] [place] [address] Nov, [facility] [place] [facility] [address] [id number] [address] 24 Nov, 2013 [facility] [place] [facility] [address] [id number] [place] [address] Nov, [facility] [place] [facility] [address] [id number] [place] [address] Nov, [facility] [place] [facility] [address] [facility] [id number] [place] [address] Oct, [facility] [place] [facility] [address] [id number] [place] [address] Oct, [facility] [place] [facility] [address] [id number] [place] [address] Oct, [facility] [place] [facility] [address] [id number] [place] [address] Oct, [facility] [place] [facility] [address] [facility] [id number] [place] [address] Oct, [facility] [place] [facility] [address] [id number] [place] [address] Oct, [facility] [place] [facility] [address] [id number] [place] [address] Oct, [facility] [place] [facility] [address] [facility] [id number] [place] [address] Oct, [facility] [place] [facility] [address] [id number] [place] [address] Oct, [facility] [place] [facility] [address] [id number] [place] [address] Sep, [facility] [place] [facility] [address] [id number] [place] [address] Sep, [facility] [place] [facility] [address] [id number] [place] [address] Sep, [facility] [place] [facility] [address] [facility] [id number] [place] [address] Sep, [facility] [place] [facility] [address] [id number] [place] [address] Sep, [facility] [place] [facility] [address] [id number] [place] [address] Sep, [facility] [place] [facility] [address] [id number] [place] [address] Sep, [facility] [place] [facility] [address] [id number] [place] [address] Aug, [facility] [place] [facility] [address] [id number] [place] [address] Aug, [facility] [place] [facility] [address] [id number] [place] [address] Aug, [facility] [place] [facility] [address] [id number] [place] [address] Aug, [facility] [place] [facility] [address] [id number] [place] [address] Aug, [facility] [place] [facility] [address] [id number] [place] [address] Aug, [facility] [place] [facility] [address] [id number] [place] [address] Aug, [facility] [place] [facility] [address] [id number] [place] [address] Aug, [facility] [place] [facility] [address] [id number] [address] Jul, [facility] [place] [facility] [address] [id number] [place] [address] Jul, [facility] [place] [facility] [address] [id number] [place] [address] Jul, [facility] [place] [facility] [address] [id number], [place] [address] Jul, [facility] [place] [facility] [address] [id number] [address] Jun, [facility] [place] [facility] [address] [id number] [place] [address] Jun, [facility] [place] [facility] [address] [id number] [place] [address] Jun, [facility] [place] [facility] [address] [id number] [place] [address] May, [facility] [place] [facility] [address] [id number] [place] [address] May, [facility] [place] [facility] [address] [id number] [place] [address] May, [facility] [place] [facility] [address] [id number] [place] [address] May, [facility] [place] [facility] [address] [id number] [place] [address] May, [facility] [place] [facility] [address] [id number] [place] [address] May, [facility] [place] [facility] [address] [facility] [id number] [place] [address] May, [facility] [place] [facility] [address] [facility] [id number] [place] [address] Apr, [facility] [place] [facility] [address] [id number] [address] 17 Apr, 2013 [facility] [place] [facility] [address] [id number] [address] 12 Apr, 2013 [facility] [place] [facility] [address] [id number] [place] [address] 11 Apr, 2013 [facility] [place] [facility] [address] [facility] [id number] [place] [address] 05 Apr, 2013 [facility] [place] [facility] [address] [facility] [id number] [place] [address] Mar, [facility] [place] [facility] [address] [id number] [place] [address] Mar, [facility] [place] [facility] [address] [id number] [place] [address] Mar, [facility] [place] [facility] [address] [id number] [place] [address] Mar, [facility] [place] [facility] [address] [id number] [place] [address] Feb, [facility] [place] [facility] [address] [id number] [place] [address] Feb, [facility] [place] [facility] [address] [id number] [place] [address] Feb, [facility] [place] [facility] [address] [id number] [place] [address] Feb, [facility] [place] [facility] [address] [id number] [place] [address] Feb, [facility] [place] [facility] [address] [id number] [place] [address] Feb, [facility] [place] [facility] [address] [id number] [place] [address] Feb, [facility] [place] [facility] [address] [id number] [place] [address] Feb, [facility] [place] [facility] [address] [id number] [place] [address] Jan, [facility] [place] [facility] [address] [id number] [place] [address] Jan, [facility] [place] [facility] [address] [id number] [place] [address] Jan, [facility] [place] [facility] [address] [id number] [place] [address] Jan, [facility] [place] [facility] [address] [id number] [place] [address] Jan, [facility] [address] [id number] [place] [address] Jan, [facility] [place] [facility] [address] [id number] [place] [address] Jan, [facility] [place] [facility] [address] [id number] [place] [address] December, [facility] [place] [facility] [address] [id number] [place] [address] December, [facility] [address] [id number] [place] [address] 30 Nov, 2012 [facility] [place] [facility] [address] [id number] [place] [address] Nov, [facility] [place] [facility] [address] [id number] [place] [address] Nov, [facility] [place] [facility] [address] [id number] [place] [address] Nov, [facility] [place] [facility] [address] [id number] [place] [address] 24 Nov, 2012 [facility] [place] [facility] [address] [id number] [place] [address] Nov, [facility] [place] [facility] [address] [id number] [place] [address] Nov, [facility] [place] [facility] [address] [id number] [address] 15 Nov, 2012 [facility] [place] [facility] [address] [id number] [place] [address] 11 Nov, 2012 [facility] [place] [facility] [address] [id number] [place] [address] 10 Nov, 2012 [facility] [place] [facility] [address] [id number] [place] [address] 08 Nov, 2012 [facility] [place] [facility] [address] [id number] [place] [address] 05 Nov, 2012 [facility] [address] [id number] [place] [address] Nov, [facility] [place] [facility] [address] [id number] [place] [address] Nov, [facility] [address] [id number] [place] [address] Oct, [facility] [place] [facility] [address] [id number] [place] [address] Oct, [facility] [address] [id number] [place] [address] Oct, [facility] [address] [id number] [place] [address] Oct, [facility] [address] [id number] [place] [address] Oct, [facility] [address] [id number] [place] [address] Oct, [facility] [address] [id number] [place] [address] Oct, [facility] [address] [id number] [place] [address] Oct, [facility] [address] [id number] [place] [address] Oct, [facility] [place] [facility] [address] [id number] [place] [address] Sep, [facility] [place] [facility] [address] [id number] [place] [address] Aug, [facility] [place] [facility] [address] [id number] [place] [address] Aug, [facility] [place] [facility] [address] [id number] [place] [address] Aug, [facility] [place] [facility] [address] [id number] [place] [address] Aug, [facility] [place] [facility] [address] [id number] [place] [address] 31 Jul, 2012 [facility] [place] [facility] [address] [id number] [place] [address] 31 Jul, 2012 [facility] [place] [facility] [address] [id number] [place] [address] Jul, [facility] [address] [id number] [place] [address] 19 Jul, 2012 [facility] [place] [facility] [address] [id number] [place] [address] Jul, [facility] [address] [id number] [place] [address] 15 Jul, 2012 [facility] [place] [facility] [address] [id number] [place] [address] 15 Jul, 2012 [facility] [place] [facility] [address] [id number] [place] [address] 14 Jul, 2012 [facility] [place] [facility] [address] [id number] [place] [address] 14 Jul, 2012 [facility] [place] [facility] [address] [id number] [place] [address] May, [facility] [place] [facility] [address] [id number] [place] [address] 22 May, 2012 [facility] [place] [facility] [address] [id number] [place] [address] 16 May, 2012 [facility] [place] [facility] [address] [id number] [place] [address] 16 May, 2012 [facility] [place] [facility] [address] [id number] [place] [address] 12 May, 2012 [facility] [place] [facility] [address] [id number] [place] [address] May, [facility] [place] [facility] [address] [id number] [place] [address] 27 Apr, 2012 [facility] [place] [facility] [address] [id number] [place] [address] 27 Apr, 2012 [facility] [place] [facility] [address] [id number] [place] [address] 24 Apr, 2012 [facility] [place] [facility] [address] [id number] [place] [address] 18 Apr, 2012 [facility] [place] [facility] [address] [id number] [place] [address] 14 Apr, 2012 [facility] [place] [facility] [address] [id number] [place] [address] 12 Apr, 2012 [facility] [facility] [address] [id number] [place] [address] Mar, [facility] [place] [facility] [address] [id number] [place] [address] Feb, [facility] [place] [facility] [address] [id number] [place] [address] Feb, [facility] [place] [facility] [address] [id number] [place] [address] Feb, [facility] [place] [facility] [address] [id number] [place] [address] Jan, [facility] [place] [facility] [address] [id number] [place] [address] December, [facility] [place] [facility] [address] [id number] [place] [address] December, [facility] [place] [facility] [address] [id number] [place] [address] December, [facility] [place] [facility] [address] [id number] [place] [address] December, [facility] [place] [facility] [address] [id number] [place] [address] December, [facility] [address] [id number] [place] [address] December, [facility] [address] [id number] [place] [address] Nov, [facility] [address] [id number] [place] [address] Nov, [facility] [address] [id number] [place] [address] 17 Nov, 2011 [facility] [address] [id number] [place] [address] Nov, [facility] [address] [id number] [place] [address] 16 Nov, 2011 [facility] [address] [id number] [place] [address] 13 Nov, 2011 [facility] [address] [id number] [place] [address] 12 Nov, 2011 [facility] [address] [id number] [place] [address] Nov, [facility] [address] [id number] [place] [address] 05 Nov, 2011 [facility] [address] [id number] [place] [address] 04 Nov, 2011 [facility] [address] [id number] [place] [address] 30 Oct, 2011 [facility] [facility] [address] [id number] [place] [address] 29 Oct, 2011 [facility] [address] [id number] [place] [address] 28 Oct, 2011 [facility] [address] [id number] [place] [address] Oct, [facility] [place] [facility] [address] [id number] [place] [address] 26 Oct, 2011 [facility] [place] [address] [id number] [place] [address] 23 Oct, 2011 [facility] [place] [facility] [address] [id number] [place] [address] 21 Oct, 2011 [facility] [place] [facility] [address] [id number] [place] [address] 19 Oct, 2011 [facility] [place] [facility] [address] [id number] [place] [address] 08 Oct, 2011 [facility] [place] [facility] [address] [id number] [place] [address] 07 Oct, 2011 [facility] [place] [facility] [address] [id number] [place] [address] 06 Oct, 2011 [facility] [facility] [address] [id number] [place] [address] 05 Oct, 2011 [facility] [place] [facility] [address] [id number] [place] [address] 16 Sep, 2011 [facility] [place] [facility] [address] [id number] [place] [address] 14 Sep, 2011 [facility] [facility] [address] [id number] [place] [address] 12 Sep, 2011 [facility] [place] [facility] [address] [id number] [place] [address] 10 Sep, 2011 [facility] [place] [facility] [address] [id number] [place] [address] 06 Sep, 2011 [facility] [address] [id number] [place] [address] 06 Sep, 2011 [facility] [facility] [address] [facility] [id number] [place] [address] 06 Sep, 2011 [facility] [facility] [address] [id number] [place] [address] 06 Sep, 2011 [facility] [address] [id number] [place] [address] Sep, [facility] [address] [id number] [place] [address] 30 Aug, 2011 [facility] [address] [id number] [place] [address] Aug, [facility] [address] [id number] [place] [address] Aug, [facility] [address] [id number] [place] [address] Aug, [facility] [address] [id number] [place] [address] Aug, [facility] [address] [id number] [place] [address] Aug, [facility] [address] [id number] [place] [address] Aug, [facility] [address] [id number] [place] [address] 24 Jul, 2011 [facility] [address] [id number] [place] [address] 16 Jul, 2011 [facility] [address] [id number] [place] [address] 16 Jul, 2011 [facility] [address] [id number] [place] [address] 14 Jul, 2011 [facility] [address] [id number] [place] [address] 30 Jun, 2011 [facility] [address] [id number] [place] [address] Jun, [facility] [address] [id number] [place] [address] May, [facility] [address] [facility] [id number] [place] [address] Mar, [facility] [address] [facility] [id number] [address] Jan, [facility] [address] [facility] [id number] [place] [address] May, IMMUNIZATIONS No Known Immunizations SOCIAL HISTORY Never Assessed REASON FOR VISIT [facility] PLAN OF CARE VITAL [...]
--- OUTSIDE RECORDS SUMMARY | 2019-03-23 07:18 | XMS REPORT ---
Author Author Migration, Doctor Organization [facility] [place] [facility] Address Unknown Phone Unavailable Care Team Providers Care Abrasive Wheel Molder Name Role Phone Migration, Doctor Unavailable Unavailable PROBLEMS Type Condition ICD9-CM Code [id number] Code Onset Dates Condition Status SNOMED Code Problem Other postablative hypothyroidism 244.1 Active 700453171 Problem Major depressive disorder, recurrent episode, severe, without mention of psychotic behavior 296.33 Active [id number] ALLERGIES No Information ENCOUNTERS Encounter Location Date Diagnosis [place] [id number] [place] [id number] Sep, Unspecified mood [affective] disorder [place] [id number] [place] [address] Aug, Unspecified mood [affective] disorder [place] [id number] [place] [address] Jul, Unspecified mood [affective] disorder [address] [place] [id number] [place] [address] Jun, Unspecified mood [affective] disorder [place] [id number] [place] [address] Mar, Affective disorder 296.90 [place] [id number] [place] [address] Mar, [place] [id number] [place] [address] Feb, Nexplanon removal V25.43 and Initiation of OCP (BCP) V25.01 [place] [id number] [place] [address] Feb, Episodic mood disorder 296.90 [place] [id number] [place] [address] [place] [address] Feb, [facility] [address], [place] [address] Feb, Routine gynecological examination V72.31 ; Pap test, as part of routine gynecological examination V76.2 ; Breast cancer screening V76.10 ; Nexplanon in place V45.52 and Rash 782.1 [facility] [address], [place] [address] Jan, Episodic mood disorder 296.90 [facility] [address], [place] [address] Jan, [facility] [address], [place] [address] December, Episodic mood disorder 296.90 [facility] [address], [place] [address] December, [facility] [address], [place] [address] December, [facility] [address], [place] [address] December, [facility] [address], [place] [address] Nov, [facility] [address], [place] [address] Nov, [facility] [address], [place] [address] Nov, [facility] [address], [place] [address] Oct, [facility] [address], [place] [address] Oct, [facility] [id number], [place] [address] Oct, [facility] [id number] [place] [address] Oct, [facility] [place] [facility] [address] [id number] [place] [address] Oct, [facility] [place] [facility] [address] [id number] [place] [address] Oct, [facility] [place] [facility] [address] [id number] [place] [address] Sep, 2014 [facility] [place] [facility] [address] [id number] [place] [address] Sep, 2014 [facility] [place] [facility] [address] [id number] [place] [address] Sep, 2014 [facility] [place] [facility] [address] [id number] [place] [address] Sep, 2014 [facility] [place] [facility] [address] [id number] [place] [address] Sep, [facility] [place] [facility] [address] [id number] [place] [address] Sep, [facility] [place] [facility] [address] [id number] [place] [address] Aug, [facility] [place] [facility] [address] [id number] [place] [address] Aug, [facility] [place] [facility] [address] [id number] [place] [address] Aug, [facility] [place] [facility] [address] [id number] [place] [address] Aug, [facility] [place] [facility] [address] [id number] [place] [address] Aug, [facility] [place] [facility] [address] [id number] [place] [address] Aug, [facility] [place] [facility] [address] [id number] [place] [address] Aug, [facility] [place] [facility] [address] [id number] [place] [address] 14 Aug, 2014 [facility] [place] [facility] [address] [id number] [place] [address] Aug, [facility] [place] [facility] [address] [id number] [place] [address] Aug, [facility] [place] [facility] [address] [id number] [place] [address] Aug, [facility] [place] [facility] [address] [id number] [place] [address] Aug, [facility] [place] [facility] [address] [id number] [place] [address] Aug, [facility] [place] [facility] [address] [id number] [place] [address] Aug, [facility] [place] [facility] [address] [id number] [place] [address] Aug, [facility] [place] [facility] [address] [id number] [place] [address] Aug, [facility] [place] [facility] [address] [id number] [place] [address] Jul, [facility] [place] [facility] [address] [id number], [place] [address] 15 Jul, 2014 [facility] [place] [facility] [address] [id number], [place] [address] 15 Jul, 2014 [facility] [place] [facility] [address] [id number] [place] [address] Jul, [facility] [place] [facility] [address] [id number] [place] [address] Jul, [facility] [place] [facility] [address] [id number] [place] [address] Jul, [facility] [place] [facility] [address] [id number] [place] [address] 11 Jul, 2014 [facility] [place] [facility] [address] [id number] [place] [address] Jul, [facility] [place] [facility] [address] [id number] [place] [address] Jul, [facility] [place] [facility] [address] [id number] [place] [address] 05 Jul, 2014 [facility] [place] [facility] [address] [id number] [place] [address] 05 Jul, 2014 [facility] [place] [facility] [address] [id number] [place] [address] Jul, [facility] [place] [facility] [address] [id number] [place] [address] Jul, [facility] [place] [facility] [address] [id number] [place] [address] Jun, [facility] [place] [facility] [address] [id number] [place] [address] Jun, [facility] [place] [facility] [address] [id number] [place] [address] Jun, [facility] [place] [facility] [address] [facility] [id number] [place] [address] Jun, [facility] [place] [facility] [address] [id number] [place] [address] Jun, [facility] [place] [facility] [address] [id number] [place] [address] Jun, [facility] [place] [facility] [address] [id number] [place] [address] Jun, [facility] [place] [facility] [address] [id number] [place] [address] Jun, [facility] [place] [facility] [address] [id number], [place] [address] Jun, [facility] [place] [facility] [address] [id number] [place] [address] Jun, [facility] [place] [facility] [address] [id number] [place] [address] Jun, [facility] [place] [facility] [address] [id number] [place] [address] Jun, [facility] [place] [facility] [address] [id number] [place] [address] Jun, [facility] [place] [facility] [address] [id number] [place] [address] Jun, [facility] [place] [facility] [address] [id number] [place] [address] May, [facility] [place] [facility] [address] [id number] [place] [address] May, [facility] [place] [facility] [address] [id number] [place] [address] May, [facility] [place] [facility] [address] [id number] [place] [address] May, [facility] [place] [facility] [address] [id number] [place] [address] May, [facility] [place] [facility] [address] [id number] [place] [address] May, [facility] [place] [facility] [address] [id number] [place] [address] May, [facility] [place] [facility] [address] [id number] [place] [address] May, [facility] [place] [facility] [address] [id number] [place] [address] May, [facility] [place] [facility] [address] [id number] [place] [address] May, [facility] [place] [facility] [address] [id number] [place] [address] 30 Sep, 2013 [facility] [place] [facility] [address] [id number] [place] [address] 30 Sep, 2013 [facility] [place] [facility] [address] [id number] [place] [address] 19 Sep, 2013 [facility] [place] [facility] [address] [id number] [place] [address] 19 Sep, 2013 [facility] [place] [facility] [address] [id number] [place] [address] 18 Sep, 2013 [facility] [place] [facility] [address] [id number] [place] [address] 18 Sep, 2013 [facility] [place] [facility] [address] [id number] [place] [address] 18 Sep, 2013 [facility] [place] [facility] [address] [id number] [place] [address] 18 Sep, 2013 [facility] [place] [facility] [address] [id number] [place] [address] 16 Sep, 2013 [facility] [place] [facility] [address] [id number] [place] [address] 16 Sep, 2013 [facility] [place] [facility] [address] [id number] [place] [address] 08 Sep, 2013 [facility] [place] [facility] [address] [id number] [place] [address] 08 Sep, 2013 [facility] [place] [facility] [address] [id number] [place] [address] 08 Sep, 2013 [facility] [place] [facility] [address] [id number] [place] [address] 08 Sep, 2013 [facility] [place] [facility] [address] [id number] [place] [address] 04 Sep, 2013 [facility] [place] [facility] [address] [id number] [place] [address] 04 Sep, 2013 [facility] [place] [facility] [address] [id number] [place] [address] Mar, [facility] [place] [facility] [address] [id number] [place] [address] Mar, [facility] [place] [facility] [address] [id number] [place] [address] Mar, [facility] [place] [facility] [address] [id number] [place] [address] Jan, [facility] [place] [facility] [address] [id number] [place] [address] 23 Jan, 2014 [facility] [place] [facility] [address] [id number] [place] [address] Jan, [facility] [place] [facility] [address] [id number] [place] [address] 18 Jan, 2014 [facility] [place] [facility] [address] [id number] [place] [address] 16 Jan, 2014 [facility] [place] [facility] [address] [id number] [place] [address] 16 Jan, 2014 [facility] [place] [facility] [address] [id number] [place] [address] 16 Jan, 2014 [facility] [place] [facility] [address] [id number] [place] [address] 16 Jan, 2014 [facility] [place] [facility] [address] [id number] [place] [address] Jan, [facility] [place] [facility] [address] [id number] [place] [address] Jan, [facility] [place] [facility] [address] [id number] [place] [address] Jan, [facility] [place] [facility] [address] [id number] [place] [address] 11 Jan, 2014 [facility] [place] [facility] [address] [id number] [place] [address] Jan, [facility] [place] [facility] [address] [id number] [place] [address] Jan, [facility] [place] [facility] [address] [id number] [place] [address] Jan, [facility] [place] [facility] [address] [id number] [place] [address] Jan, [facility] [place] [facility] [address] [id number] [place] [address] December, [facility] [place] [facility] [address] [id number] [place] [address] December, [facility] [place] [facility] [address] [id number] [place] [address] December, [facility] [place] [facility] [address] [id number] [place] [address] December, [facility] [place] [facility] [address] [id number] [place] [address] December, [facility] [place] [facility] [address] [id number] [place] [address] Nov, [facility] [place] [facility] [address] [id number] [place] [address] Nov, [facility] [place] [facility] [address] [id number] [place] [address] Nov, [facility] [place] [facility] [address] [id number] [place] [address] Nov, [facility] [place] [facility] [address] [id number] [place] [address] Nov, [facility] [place] [facility] [address] [id number] [place] [address] Nov, [facility] [place] [facility] [address] [id number] [place] [address] Nov, [facility] [place] [facility] [address] [id number], [place] [address] 24 Nov, 2013 [facility] [place] [facility] [address] [id number] [place] [address] Nov, [facility] [place] [facility] [address] [id number] [place] [address] Nov, [facility] [place] [facility] [address] [facility] [id number] [place] [address] Oct, [facility] [place] [facility] [address] [id number] [place] [address] Oct, [facility] [place] [facility] [address] [id number] [place] [address] Oct, [facility] [place] [facility] [address] [id number] [place] [address] Oct, [facility] [place] [facility] [address] [facility] [id number] [place] [address] Oct, [facility] [place] [facility] [address] [id number] [place] [address] Oct, [facility] [place] [facility] [address] [id number] [place] [address] Oct, [facility] [place] [facility] [address] [facility] [id number] [place] [address] Oct, [facility] [place] [facility] [address] [id number] [place] [address] Oct, [facility] [place] [facility] [address] [id number] [place] [address] Sep, [facility] [place] [facility] [address] [id number] [place] [address] Sep, [facility] [place] [facility] [address] [id number] [place] [address] Sep, [facility] [place] [facility] [address] [facility] [id number] [place] [address] Sep, [facility] [place] [facility] [address] [id number] [place] [address] Sep, [facility] [place] [facility] [address] [id number] [place] [address] Sep, [facility] [place] [facility] [address] [id number] [place] [address] Sep, [facility] [place] [facility] [address] [id number] [place] [address] Aug, [facility] [place] [facility] [address] [id number] [place] [address] Aug, [facility] [place] [facility] [address] [id number] [place] [address] Aug, [facility] [place] [facility] [address] [id number] [place] [address] Aug, [facility] [place] [facility] [address] [id number] [place] [address] Aug, [facility] [place] [facility] [address] [id number] [place] [address] Aug, [facility] [place] [facility] [address] [id number] [place] [address] Aug, [facility] [place] [facility] [address] [id number] [place] [address] Aug, [facility] [place] [facility] [address] [id number], [place] [address] Jul, [facility] [place] [facility] [address] [id number] [place] [address] Jul, [facility] [place] [facility] [address] [id number] [place] [address] Jul, [facility] [place] [facility] [address] [id number], [place] [address] Jul, [facility] [place] [facility] [address] [id number], [place] [address] Jun, [facility] [place] [facility] [address] [id number] [place] [address] Jun, [facility] [place] [facility] [address] [id number] [place] [address] Jun, [facility] [place] [facility] [address] [id number] [place] [address] May, [facility] [place] [facility] [address] [id number] [place] [address] May, [facility] [place] [facility] [address] [id number] [place] [address] May, [facility] [place] [facility] [address] [id number] [place] [address] May, [facility] [place] [facility] [address] [id number] [place] [address] May, [facility] [place] [facility] [address] [id number] [place] [address] May, [facility] [place] [facility] [address] [facility] [id number] [place] [address] May, [facility] [place] [facility] [address] [facility] [id number] [place] [address] Apr, [facility] [place] [facility] [address] [id number], [place] [address] 17 Apr, 2013 [facility] [place] [facility] [address] [id number], [place] [address] 12 Apr, 2013 [facility] [place] [facility] [address] [id number] [place] [address] 11 Apr, 2013 [facility] [place] [facility] [address] [facility] [id number] [place] [address] 05 Apr, 2013 [facility] [place] [facility] [address] [facility] [id number] [place] [address] Mar, [facility] [place] [facility] [address] [id number] [place] [address] Mar, [facility] [place] [facility] [address] [id number] [place] [address] Mar, [facility] [place] [facility] [address] [id number] [place] [address] Mar, [facility] [place] [facility] [address] [id number] [place] [address] Feb, [facility] [place] [facility] [address] [id number] [place] [address] Feb, [facility] [place] [facility] [address] [id number] [place] [address] Feb, [facility] [place] [facility] [address] [id number] [place] [address] Feb, [facility] [place] [facility] [address] [id number] [place] [address] Feb, [facility] [place] [facility] [address] [id number] [place] [address] Feb, [facility] [place] [facility] [address] [id number] [place] [address] Feb, [facility] [place] [facility] [address] [id number] [place] [address] Feb, [facility] [place] [facility] [address] [id number] [place] [address] Jan, [facility] [place] [facility] [address] [id number] [place] [address] Jan, [facility] [place] [facility] [address] [id number] [place] [address] Jan, [facility] [place] [facility] [address] [id number] [place] [address] Jan, [facility] [place] [facility] [address] [id number] [place] [address] Jan, [facility] [address] [id number] [place] [address] Jan, [facility] [place] [facility] [address] [id number] [place] [address] Jan, [facility] [place] [facility] [address] [id number] [place] [address] December, [facility] [place] [facility] [address] [id number] [place] [address] December, [facility] [address] [id number] [place] [address] 30 Nov, 2012 [facility] [place] [facility] [address] [id number] [place] [address] Nov, [facility] [place] [facility] [address] [id number] [place] [address] Nov, [facility] [place] [facility] [address] [id number] [place] [address] Nov, [facility] [place] [facility] [address] [id number] [place] [address] 24 Nov, 2012 [facility] [place] [facility] [address] [id number] [place] [address] Nov, [facility] [place] [facility] [address] [id number] [place] [address] Nov, [facility] [place] [facility] [address] [id number], [place] [address] 15 Nov, 2012 [facility] [place] [facility] [address] [id number] [place] [address] 11 Nov, 2012 [facility] [place] [facility] [address] [id number] [place] [address] 10 Nov, 2012 [facility] [place] [facility] [address] [id number] [place] [address] 08 Nov, 2012 [facility] [place] [facility] [address] [id number] [place] [address] 05 Nov, 2012 [facility] [address] [id number] [place] [address] Nov, [facility] [place] [facility] [address] [id number] [place] [address] Nov, [facility] [address] [id number] [place] [address] Oct, [facility] [place] [facility] [address] [id number] [place] [address] Oct, [facility] [address] [id number] [place] [address] Oct, [facility] [address] [id number] [place] [address] Oct, [facility] [address] [id number] [place] [address] Oct, [facility] [address] [id number] [place] [address] Oct, [facility] [address] [id number] [place] [address] Oct, [facility] [address] [id number] [place] [address] Oct, [facility] [address] [id number] [place] [address] Oct, [facility] [place] [facility] [address] [id number] [place] [address] Sep, [facility] [place] [facility] [address] [id number] [place] [address] Aug, [facility] [place] [facility] [address] [id number] [place] [address] Aug, [facility] [place] [facility] [address] [id number] [place] [address] Aug, [facility] [place] [facility] [address] [id number] [place] [address] Aug, [facility] [place] [facility] [address] [id number] [place] [address] 31 Jul, 2012 [facility] [place] [facility] [address] [id number] [place] [address] 31 Jul, 2012 [facility] [place] [facility] [address] [id number] [place] [address] Jul, [facility] [address] [id number] [place] [address] 19 Jul, 2012 [facility] [place] [facility] [address] [id number] [place] [address] Jul, [facility] [address] [id number] [place] [address] 15 Jul, 2012 [facility] [place] [facility] [address] [id number] [place] [address] 15 Jul, 2012 [facility] [place] [facility] [address] [id number] [place] [address] 14 Jul, 2012 [facility] [place] [facility] [address] [id number] [place] [address] 14 Jul, 2012 [facility] [place] [facility] [address] [id number] [place] [address] May, [facility] [place] [facility] [address] [id number] [place] [address] 22 May, 2012 [facility] [place] [facility] [address] [id number] [place] [address] 16 May, 2012 [facility] [place] [facility] [address] [id number] [place] [address] 16 May, 2012 [facility] [place] [facility] [address] [id number] [place] [address] 12 May, 2012 [facility] [place] [facility] [address] [id number] [place] [address] May, [facility] [place] [facility] [address] [id number] [place] [address] 27 Apr, 2012 [facility] [place] [facility] [address] [id number] [place] [address] 27 Apr, 2012 [facility] [place] [facility] [address] [id number] [place] [address] 24 Apr, 2012 [facility] [facility] [address] [id number] [place] [address] 18 Apr, 2012 [facility] [place] [facility] [address] [id number] [place] [address] 14 Apr, 2012 [facility] [place] [facility] [address] [id number] [place] [address] 12 Apr, 2012 [facility] [place] [facility] [address] [id number] [place] [address] Mar, [facility] [place] [facility] [address] [id number] [place] [address] Feb, [facility] [place] [facility] [address] [id number] [place] [address] Feb, [facility] [place] [facility] [address] [id number] [place] [address] Feb, [facility] [place] [facility] [address] [id number] [place] [address] Jan, [facility] [place] [facility] [address] [id number] [place] [address] December, [facility] [place] [facility] [address] [id number] [place] [address] December, [facility] [place] [facility] [address] [id number] [place] [address] December, [facility] [place] [facility] [address] [id number] [place] [address] December, [facility] [place] [facility] [address] [id number] [place] [address] December, [facility] [address] [id number] [place] [address] December, [facility] [address] [id number] [place] [address] Nov, [facility] [address] [id number] [place] [address] Nov, [facility] [address] [id number] [place] [address] 17 Nov, 2011 [facility] [address] [id number] [place] [address] Nov, [facility] [address] [id number] [place] [address] 16 Nov, 2011 [facility] [address] [id number] [place] [address] 13 Nov, 2011 [facility] [address] [id number] [place] [address] 12 Nov, 2011 [facility] [address] [id number] [place] [address] Nov, [facility] [address] [id number] [place] [address] 05 Nov, 2011 [facility] [address] [id number] [place] [address] 04 Nov, 2011 [facility] [address] [id number] [place] [address] 30 Oct, 2011 [facility] [place] [facility] [address] [id number] [place] [address] 29 Oct, 2011 [facility] [address] [id number] [place] [address] 28 Oct, 2011 [facility] [address] [id number] [place] [address] Oct, [facility] [place] [facility] [address] [id number] [place] [address] 26 Oct, 2011 [facility] [place] [facility] [address] [id number] [place] [address] 23 Oct, 2011 [facility] [place] [facility] [address] [id number] [place] [address] 21 Oct, 2011 [facility] [place] [facility] [address] [id number] [place] [address] 19 Oct, 2011 [facility] [place] [facility] [address] [id number] [place] [address] 08 Oct, 2011 [facility] [place] [facility] [address] [id number] [place] [address] 07 Oct, 2011 [facility] [place] [facility] [address] [id number] [place] [address] 06 Oct, 2011 [facility] [place] [facility] [address] [id number] [place] [address] 05 Oct, 2011 [facility] [place] [facility] [address] [id number] [place] [address] 16 Sep, 2011 [facility] [place] [facility] [address] [id number] [place] [address] 14 Sep, 2011 [facility] [place] [facility] [address] [id number] [place] [address] 12 Sep, 2011 [facility] [place] [facility] [address] [id number] [place] [address] 10 Sep, 2011 [facility] [place] [facility] [address] [id number] [place] [address] 06 Sep, 2011 [facility] [place] [address] [id number] [place] [address] 06 Sep, 2011 [facility] [facility] [address] [facility] [id number] [place] [address] 06 Sep, 2011 [facility] [place] [facility] [address] [id number] [place] [address] 06 Sep, 2011 [facility] [address] [id number] [place] [address] Sep, [facility] [address] [id number] [place] [address] 30 Aug, 2011 [facility] [address] [id number] [place] [address] Aug, [facility] [address] [id number] [place] [address] Aug, [facility] [address] [id number] [place] [address] Aug, [facility] [address] [id number] [place] [address] Aug, [facility] [address] [id number] [place] [address] Aug, [facility] [address] [id number] [place] [address] Aug, [facility] [address] [id number] [place] [address] 24 Jul, 2011 [facility] [address] [id number] [place] [address] 16 Jul, 2011 [facility] [address] [id number] [place] [address] 16 Jul, 2011 [facility] [address] [id number] [place] [address] 14 Jul, 2011 [facility] [address] [id number] [place] [address] 30 Jun, 2011 [facility] [address] [id number] [place] [address] Jun, [facility] [address] [id number] [place] [address] May, [facility] [address] [facility] [id number] [place] [address] Mar, [facility] [address] [facility] [id number] [address] Jan, [facility] [address] [facility] [id number] [place] [address] May, IMMUNIZATIONS No Known Immunizations SOCIAL HISTORY Never Assessed REASON FOR VISIT [facility] [place] VITAL SIGNS MEDICATIONS Unknown [...]
--- OUTSIDE RECORDS SUMMARY | 2019-03-23 07:18 | XMS REPORT ---
Author Author Migration, Doctor Organization [facility] Address Unknown Phone Unavailable Care Team Providers Care Editorial Assistant Name Role Phone Migration, Doctor Unavailable Unavailable PROBLEMS Type Condition ICD9-CM Code [id number] Code Onset Dates Condition Status SNOMED Code Problem Other postablative hypothyroidism 244.1 Active 938031687 Problem Major depressive disorder, recurrent episode, severe, without mention of psychotic behavior 296.33 Active 48369182 ALLERGIES No Information ENCOUNTERS Encounter Location Date Diagnosis [place] [id number] [place] [address] Sep, Unspecified mood [affective] disorder [place] [id number] [place] [address] Aug, Unspecified mood [affective] disorder [place] [id number] [place] [address] Jul, Unspecified mood [affective] disorder [address] [place] [id number] [place] [address] Jun, Unspecified mood [affective] disorder [place] [id number] [place] [address] Mar, Affective disorder 296.90 [place] [id number] [place] [address] Mar, [place] [id number] [place] [address] Feb, Nexplanon removal V25.43 and Initiation of OCP (BCP) V25.01 [place] [id number] [place] [address] Feb, Episodic mood disorder 296.90 [place] [id number] [place] [address] [place] [address] Feb, [facility] [id number], [place] [address] Feb, Routine gynecological examination V72.31 ; Pap test, as part of routine gynecological examination V76.2 ; Breast cancer screening V76.10 ; Nexplanon in place V45.[address] [facility] [address], [place] [address] Jan, Episodic mood disorder 296.90 [facility] [address], [place] [address] Jan, [facility] [address], [place] [address] December, Episodic mood disorder 296.90 [facility] [address], [place] [address] December, [facility] [address] [address] December, [facility] [address] [address] December, [facility] [address] [address] Nov, [facility] [address] [address] Nov, [facility] [address] [address] Nov, [facility] [address] [address] Oct, [facility] [address] [address] Oct, [facility] [id number] [address] Oct, [facility] [id number] [place] [address] Oct, [facility] [place] [facility] [address] [id number] [place] [address] Oct, [facility] [place] [facility] [address] [id number] [place] [address] Oct, [facility] [place] [facility] [address] [id number] [place] [address] Sep, 2014 [facility] [place] [facility] [address] [id number] [place] [address] Sep, 2014 [facility] [place] [facility] [address] [id number] [place] [address] Sep, 2014 [facility] [place] [facility] [address] [id number] [place] [address] Sep, 2014 [facility] [place] [facility] [address] [id number] [place] [address] Sep, [facility] [place] [facility] [address] [id number] [place] [address] Sep, [facility] [place] [facility] [address] [id number] [place] [address] Aug, [facility] [place] [facility] [address] [id number] [place] [address] Aug, [facility] [place] [facility] [address] [id number] [place] [address] Aug, [facility] [place] [facility] [address] [id number] [place] [address] Aug, [facility] [place] [facility] [address] [id number] [place] [address] Aug, [facility] [place] [facility] [address] [id number] [place] [address] Aug, [facility] [place] [facility] [address] [id number] [place] [address] Aug, [facility] [place] [facility] [address] [id number] [place] [address] 14 Aug, 2014 [facility] [place] [facility] [address] [id number] [place] [address] Aug, [facility] [place] [facility] [address] [id number] [place] [address] Aug, [facility] [place] [facility] [address] [id number] [place] [address] Aug, [facility] [place] [facility] [address] [id number] [place] [address] Aug, [facility] [place] [facility] [address] [id number] [place] [address] Aug, [facility] [place] [facility] [address] [id number] [place] [address] Aug, [facility] [place] [facility] [address] [id number] [place] [address] Aug, [facility] [place] [facility] [address] [id number] [place] [address] Aug, [facility] [place] [facility] [address] [id number] [place] [address] Jul, [facility] [place] [facility] [address] [id number], [place] [address] 15 Jul, 2014 [facility] [place] [facility] [address] [id number], [place] [address] 15 Jul, 2014 [facility] [place] [facility] [address] [id number] [place] [address] Jul, [facility] [place] [facility] [address] [id number] [place] [address] Jul, [facility] [place] [facility] [address] [id number] [place] [address] Jul, [facility] [place] [facility] [address] [id number] [place] [address] 11 Jul, 2014 [facility] [place] [facility] [address] [id number] [place] [address] Jul, [facility] [place] [facility] [address] [id number] [place] [address] Jul, [facility] [place] [facility] [address] [id number] [place] [address] 05 Jul, 2014 [facility] [place] [facility] [address] [id number] [place] [address] 05 Jul, 2014 [facility] [place] [facility] [address] [id number] [place] [address] Jul, [facility] [place] [facility] [address] [id number] [place] [address] Jul, [facility] [place] [facility] [address] [id number] [place] [address] Jun, [facility] [place] [facility] [address] [id number] [place] [address] Jun, [facility] [place] [facility] [address] [id number] [place] [address] Jun, [facility] [place] [facility] [address] [facility] [id number] [place] [address] Jun, [facility] [place] [facility] [address] [id number] [place] [address] Jun, [facility] [place] [facility] [address] [id number] [place] [address] Jun, [facility] [place] [facility] [address] [id number] [place] [address] Jun, [facility] [place] [facility] [address] [id number] [place] [address] Jun, [facility] [place] [facility] [address] [id number], [place] [address] Jun, [facility] [place] [facility] [address] [id number] [place] [address] Jun, [facility] [place] [facility] [address] [id number] [place] [address] Jun, [facility] [place] [facility] [address] [id number] [place] [address] Jun, [facility] [place] [facility] [address] [id number] [place] [address] Jun, [facility] [place] [facility] [address] [id number] [place] [address] Jun, [facility] [place] [facility] [address] [id number] [place] [address] May, [facility] [place] [facility] [address] [id number] [place] [address] May, [facility] [place] [facility] [address] [id number] [place] [address] May, [facility] [place] [facility] [address] [id number] [place] [address] May, [facility] [place] [facility] [address] [id number] [place] [address] May, [facility] [place] [facility] [address] [id number] [place] [address] May, [facility] [place] [facility] [address] [id number] [place] [address] May, [facility] [place] [facility] [address] [id number] [place] [address] May, [facility] [place] [facility] [address] [id number] [place] [address] May, [facility] [place] [facility] [address] [id number] [place] [address] May, [facility] [place] [facility] [address] [id number] [place] [address] 30 Sep, 2013 [facility] [place] [facility] [address] [id number] [place] [address] 30 Sep, 2013 [facility] [place] [facility] [address] [id number] [place] [address] 19 Sep, 2013 [facility] [place] [facility] [address] [id number] [place] [address] 19 Sep, 2013 [facility] [place] [facility] [address] [id number] [place] [address] 18 Sep, 2013 [facility] [place] [facility] [address] [id number] [place] [address] 18 Sep, 2013 [facility] [place] [facility] [address] [id number] [place] [address] 18 Sep, 2013 [facility] [place] [facility] [address] [id number] [place] [address] 18 Sep, 2013 [facility] [place] [facility] [address] [id number] [place] [address] 16 Sep, 2013 [facility] [place] [facility] [address] [id number] [place] [address] 16 Sep, 2013 [facility] [place] [facility] [address] [id number] [place] [address] 08 Sep, 2013 [facility] [place] [facility] [address] [id number] [place] [address] 08 Sep, 2013 [facility] [place] [facility] [address] [id number] [place] [address] 08 Sep, 2013 [facility] [place] [facility] [address] [id number] [place] [address] 08 Sep, 2013 [facility] [place] [facility] [address] [id number] [place] [address] 04 Sep, 2013 [facility] [place] [facility] [address] [id number] [place] [address] 04 Sep, 2013 [facility] [place] [facility] [address] [id number] [place] [address] Mar, [facility] [place] [facility] [address] [id number] [place] [address] Mar, [facility] [place] [facility] [address] [id number] [place] [address] Mar, [facility] [place] [facility] [address] [id number] [place] [address] Jan, [facility] [place] [facility] [address] [id number] [place] [address] 23 Jan, 2014 [facility] [place] [facility] [address] [id number] [place] [address] Jan, [facility] [place] [facility] [address] [id number] [place] [address] 18 Jan, 2014 [facility] [place] [facility] [address] [id number] [place] [address] 16 Jan, 2014 [facility] [place] [facility] [address] [id number] [place] [address] 16 Jan, 2014 [facility] [place] [facility] [address] [id number] [place] [address] 16 Jan, 2014 [facility] [place] [facility] [address] [id number] [place] [address] 16 Jan, 2014 [facility] [place] [facility] [address] [id number] [place] [address] Jan, [facility] [place] [facility] [address] [id number] [place] [address] Jan, [facility] [place] [facility] [address] [id number] [place] [address] Jan, [facility] [place] [facility] [address] [id number] [place] [address] 11 Jan, 2014 [facility] [place] [facility] [address] [id number] [place] [address] Jan, [facility] [place] [facility] [address] [id number] [place] [address] Jan, [facility] [place] [facility] [address] [id number] [place] [address] Jan, [facility] [place] [facility] [address] [id number] [place] [address] Jan, [facility] [place] [facility] [address] [id number] [place] [address] December, [facility] [place] [facility] [address] [id number] [place] [address] December, [facility] [place] [facility] [address] [id number] [place] [address] December, [facility] [place] [facility] [address] [id number] [place] [address] December, [facility] [place] [facility] [address] [id number] [place] [address] December, [facility] [place] [facility] [address] [id number] [place] [address] Nov, [facility] [place] [facility] [address] [id number] [place] [address] Nov, [facility] [place] [facility] [address] [id number] [place] [address] Nov, [facility] [place] [facility] [address] [id number] [place] [address] Nov, [facility] [place] [facility] [address] [id number] [place] [address] Nov, [facility] [place] [facility] [address] [id number] [place] [address] Nov, [facility] [place] [facility] [address] [id number] [place] [address] Nov, [facility] [place] [facility] [address] [id number], [place] [address] 24 Nov, 2013 [facility] [place] [facility] [address] [id number] [place] [address] Nov, [facility] [place] [facility] [address] [id number] [place] [address] Nov, [facility] [place] [facility] [address] [facility] [id number] [place] [address] Oct, [facility] [place] [facility] [address] [id number] [place] [address] Oct, [facility] [place] [facility] [address] [id number] [place] [address] Oct, [facility] [place] [facility] [address] [id number] [place] [address] Oct, [facility] [place] [facility] [address] [facility] [id number] [place] [address] Oct, [facility] [place] [facility] [address] [id number] [place] [address] Oct, [facility] [place] [facility] [address] [id number] [place] [address] Oct, [facility] [place] [facility] [address] [facility] [id number] [place] [address] Oct, [facility] [place] [facility] [address] [id number] [place] [address] Oct, [facility] [place] [facility] [address] [id number] [place] [address] Sep, [facility] [place] [facility] [address] [id number] [place] [address] Sep, [facility] [place] [facility] [address] [id number] [place] [address] Sep, [facility] [place] [facility] [address] [facility] [id number] [place] [address] Sep, [facility] [place] [facility] [address] [id number] [place] [address] Sep, [facility] [place] [facility] [address] [id number] [place] [address] Sep, [facility] [place] [facility] [address] [id number] [place] [address] Sep, [facility] [place] [facility] [address] [id number] [place] [address] Aug, [facility] [place] [facility] [address] [id number] [place] [address] Aug, [facility] [place] [facility] [address] [id number] [place] [address] Aug, [facility] [place] [facility] [address] [id number] [place] [address] Aug, [facility] [place] [facility] [address] [id number] [place] [address] Aug, [facility] [place] [facility] [address] [id number] [place] [address] Aug, [facility] [place] [facility] [address] [id number] [place] [address] Aug, [facility] [place] [facility] [address] [id number] [place] [address] Aug, [facility] [place] [facility] [address] [id number], [place] [address] Jul, [facility] [place] [facility] [address] [id number] [place] [address] Jul, [facility] [place] [facility] [address] [id number] [place] [address] Jul, [facility] [place] [facility] [address] [id number], [place] [address] Jul, [facility] [place] [facility] [address] [id number], [place] [address] Jun, [facility] [place] [facility] [address] [id number] [place] [address] Jun, [facility] [place] [facility] [address] [id number] [place] [address] Jun, [facility] [place] [facility] [address] [id number] [place] [address] May, [facility] [place] [facility] [address] [id number] [place] [address] May, [facility] [place] [facility] [address] [id number] [place] [address] May, [facility] [place] [facility] [address] [id number] [place] [address] May, [facility] [place] [facility] [address] [id number] [place] [address] May, [facility] [place] [facility] [address] [id number] [place] [address] May, [facility] [place] [facility] [address] [facility] [id number] [place] [address] May, [facility] [place] [facility] [address] [facility] [id number] [place] [address] Apr, [facility] [place] [facility] [address] [id number], [place] [address] 17 Apr, 2013 [facility] [place] [facility] [address] [id number], [place] [address] 12 Apr, 2013 [facility] [place] [facility] [address] [id number] [place] [address] 11 Apr, 2013 [facility] [place] [facility] [address] [facility] [id number] [place] [address] 05 Apr, 2013 [facility] [place] [facility] [address] [facility] [id number] [place] [address] Mar, [facility] [place] [facility] [address] [id number] [place] [address] Mar, [facility] [place] [facility] [address] [id number] [place] [address] Mar, [facility] [place] [facility] [address] [id number] [place] [address] Mar, [facility] [place] [facility] [address] [id number] [place] [address] Feb, [facility] [place] [facility] [address] [id number] [place] [address] Feb, [facility] [place] [facility] [address] [id number] [place] [address] Feb, [facility] [place] [facility] [address] [id number] [place] [address] Feb, [facility] [place] [facility] [address] [id number] [place] [address] Feb, [facility] [place] [facility] [address] [id number] [place] [address] Feb, [facility] [place] [facility] [address] [id number] [place] [address] Feb, [facility] [place] [facility] [address] [id number] [place] [address] Feb, [facility] [place] [facility] [address] [id number] [place] [address] Jan, [facility] [place] [facility] [address] [id number] [place] [address] Jan, [facility] [place] [facility] [address] [id number] [place] [address] Jan, [facility] [place] [facility] [address] [id number] [place] [address] Jan, [facility] [place] [facility] [address] [id number] [place] [address] Jan, [facility] [address] [id number] [place] [address] Jan, [facility] [place] [facility] [address] [id number] [place] [address] Jan, [facility] [place] [facility] [address] [id number] [place] [address] December, [facility] [place] [facility] [address] [id number] [place] [address] December, [facility] [address] [id number] [place] [address] 30 Nov, 2012 [facility] [place] [facility] [address] [id number] [place] [address] Nov, [facility] [place] [facility] [address] [id number] [place] [address] Nov, [facility] [place] [facility] [address] [id number] [place] [address] Nov, [facility] [place] [facility] [address] [id number] [place] [address] 24 Nov, 2012 [facility] [place] [facility] [address] [id number] [place] [address] Nov, [facility] [place] [facility] [address] [id number] [place] [address] Nov, [facility] [place] [facility] [address] [id number], [place] [address] 15 Nov, 2012 [facility] [place] [facility] [address] [id number] [place] [address] 11 Nov, 2012 [facility] [place] [facility] [address] [id number] [place] [address] 10 Nov, 2012 [facility] [place] [facility] [address] [id number] [place] [address] 08 Nov, 2012 [facility] [place] [facility] [address] [id number] [place] [address] 05 Nov, 2012 [facility] [address] [id number] [place] [address] Nov, [facility] [place] [facility] [address] [id number] [place] [address] Nov, [facility] [address] [id number] [place] [address] Oct, [facility] [place] [facility] [address] [id number] [place] [address] Oct, [facility] [address] [id number] [place] [address] Oct, [facility] [address] [id number] [place] [address] Oct, [facility] [address] [id number] [place] [address] Oct, [facility] [address] [id number] [place] [address] Oct, [facility] [address] [id number] [place] [address] Oct, [facility] [address] [id number] [place] [address] Oct, [facility] [address] [id number] [place] [address] Oct, [facility] [place] [facility] [address] [id number] [place] [address] Sep, [facility] [place] [facility] [address] [id number] [place] [address] Aug, [facility] [place] [facility] [address] [id number] [place] [address] Aug, [facility] [place] [facility] [address] [id number] [place] [address] Aug, [facility] [place] [facility] [address] [id number] [place] [address] Aug, [facility] [place] [facility] [address] [id number] [place] [address] 31 Jul, 2012 [facility] [place] [facility] [address] [id number] [place] [address] 31 Jul, 2012 [facility] [place] [facility] [address] [id number] [place] [address] Jul, [facility] [address] [id number] [place] [address] 19 Jul, 2012 [facility] [place] [facility] [address] [id number] [place] [address] Jul, [facility] [address] [id number] [place] [address] 15 Jul, 2012 [facility] [place] [facility] [address] [id number] [place] [address] 15 Jul, 2012 [facility] [place] [facility] [address] [id number] [place] [address] 14 Jul, 2012 [facility] [place] [facility] [address] [id number] [place] [address] 14 Jul, 2012 [facility] [place] [facility] [address] [id number] [place] [address] May, [facility] [place] [facility] [address] [id number] [place] [address] 22 May, 2012 [facility] [place] [facility] [address] [id number] [place] [address] 16 May, 2012 [facility] [place] [facility] [address] [id number] [place] [address] 16 May, 2012 [facility] [place] [facility] [address] [id number] [place] [address] 12 May, 2012 [facility] [place] [facility] [address] [id number] [place] [address] May, [facility] [place] [facility] [address] [id number] [place] [address] 27 Apr, 2012 [facility] [place] [facility] [address] [id number] [place] [address] 27 Apr, 2012 [facility] [place] [facility] [address] [id number] [place] [address] 24 Apr, 2012 [facility] [place] [facility] [address] [id number] [place] [address] 18 Apr, 2012 [facility] [place] [facility] [address] [id number] [place] [address] 14 Apr, 2012 [facility] [place] [facility] [address] [id number] [place] [address] 12 Apr, 2012 [facility] [place] [facility] [address] [id number] [place] [address] Mar, [facility] [place] [facility] [address] [id number] [place] [address] Feb, [facility] [place] [facility] [address] [id number] [place] [address] Feb, [facility] [place] [facility] [address] [id number] [place] [address] Feb, [facility] [place] [facility] [address] [id number] [place] [address] Jan, [facility] [place] [facility] [address] [id number] [place] [address] December, [facility] [place] [facility] [address] [id number] [place] [address] December, [facility] [place] [facility] [address] [id number] [place] [address] December, [facility] [place] [facility] [address] [id number] [place] [address] December, [facility] [place] [facility] [address] [id number] [place] [id number] December, [facility] [address] [id number] [place] [address] December, [facility] [address] [id number] [place] [address] Nov, [facility] [address] [id number] [place] [address] Nov, [facility] [address] [id number] [place] [address] 17 Nov, 2011 [facility] [address] [id number] [place] [address] Nov, [facility] [address] [id number] [place] [address] 16 Nov, 2011 [facility] [address] [id number] [place] [address] 13 Nov, 2011 [facility] [address] [id number] [place] [address] 12 Nov, 2011 [facility] [address] [id number] [place] [address] Nov, [facility] [address] [id number] [place] [address] 05 Nov, 2011 [facility] [address] [id number] [place] [address] 04 Nov, 2011 [facility] [address] [id number] [place] [address] 30 Oct, 2011 [facility] [place] [facility] [address] [id number] [place] [address] 29 Oct, 2011 [facility] [address] [id number] [place] [address] 28 Oct, 2011 [facility] [address] [id number] [place] [address] Oct, [facility] [place] [facility] [address] [id number] [place] [address] 26 Oct, 2011 [facility] [place] [facility] [address] [id number] [place] [address] 23 Oct, 2011 [facility] [place] [facility] [address] [id number] [place] [address] 21 Oct, 2011 [facility] [place] [facility] [address] [id number] [place] [address] 19 Oct, 2011 [facility] [place] [facility] [address] [id number] [place] [address] 08 Oct, 2011 [facility] [place] [facility] [address] [id number] [place] [address] 07 Oct, 2011 [facility] [place] [facility] [address] [id number] [place] [address] 06 Oct, 2011 [facility] [place] [facility] [address] [id number] [place] [address] 05 Oct, 2011 [facility] [place] [facility] [address] [id number] [place] [address] 16 Sep, 2011 [facility] [place] [facility] [address] [id number] [place] [address] 14 Sep, 2011 [facility] [place] [facility] [address] [id number] [place] [address] 12 Sep, 2011 [facility] [place] [facility] [address] [id number] [place] [address] 10 Sep, 2011 [facility] [place] [facility] [address] [id number] [place] [address] 06 Sep, 2011 [facility] [place] [facility] [address] [id number] [place] [address] 06 Sep, 2011 [facility] [place] [facility] [address] [facility] [id number] [place] [address] 06 Sep, 2011 [facility] [place] [facility] [address] [id number] [place] [address] 06 Sep, 2011 [facility] [address] [id number] [place] [address] Sep, [facility] [address] [id number] [place] [address] 30 Aug, 2011 [facility] [address] [id number] [place] [address] Aug, [facility] [address] [id number] [place] [address] Aug, [facility] [address] [id number] [place] [address] Aug, [facility] [address] [id number] [place] [address] Aug, [facility] [address] [id number] [place] [address] Aug, [facility] [address] [id number] [place] [address] Aug, [facility] [address] [id number] [place] [address] 24 Jul, 2011 [facility] [address] [id number] [place] [address] 16 Jul, 2011 [facility] [address] [id number] [place] [address] 16 Jul, 2011 [facility] [address] [id number] [place] [address] 14 Jul, 2011 [facility] [place] [facility] [address] [id number] [place] [address] 30 Jun, 2011 [facility] [address] [id number] [place] [address] Jun, [facility] [address] [id number] [place] [address] May, [facility] [address] [facility] [id number] [place] [address] Mar, [facility] [address] [facility] [id number] [address] Jan, [facility] [address] [facility] [id number] [place] [address] May, IMMUNIZATIONS No Known Immunizations SOCIAL HISTORY Never Assessed REASON FOR VISIT [facility] PLAN OF CARE VITAL SIGNS MEDICATIONS Unknown [...]
--- OUTSIDE RECORDS SUMMARY | 2019-03-23 07:19 | XMS REPORT ---
Author Author Migration, Doctor Organization [facility] Address Unknown Phone Unavailable Care Team Providers Care Hide Worker Name Role Phone Migration, Doctor Unavailable Unavailable PROBLEMS Type Condition ICD9-CM Code [id number] Code Onset Dates Condition Status SNOMED Code Problem Other postablative hypothyroidism 244.1 Active 269319098 Problem Major depressive disorder, recurrent episode, severe, without mention of psychotic behavior 296.33 Active [id number] ALLERGIES No Information ENCOUNTERS Encounter Location Date Diagnosis [place] [id number] [place] [address] Sep, Unspecified mood [affective] disorder [place] [id number] [place] [address] Aug, Unspecified mood [affective] disorder [place] [id number] [place] [address] Jul, Unspecified mood [affective] disorder [address] [place] [id number] [place] [address] Jun, Unspecified mood [affective] disorder [place] [id number] [place] [address] Mar, Affective disorder 296.90 [place] [id number] [place] [address] Mar, [place] [id number] [place] [address] Feb, Nexplanon removal V25.43 and Initiation of OCP (BCP) V25.01 [place] [id number] [place] [address] Feb, Episodic mood disorder 296.90 [place] [id number] [place] [address] [place] [address] Feb, [facility] [id number], [place] [address] Feb, Routine gynecological examination V72.31 ; Pap test, as part of routine gynecological examination V76.2 ; Breast cancer screening V76.10 ; Nexplanon in place V45.52 and Rash 782.1 [facility] [id number], [place] [address] Jan, Episodic mood disorder 296.90 [facility] [id number], [place] [address] Jan, [facility] [id number], [place] [address] December, Episodic mood disorder 296.90 [facility] [id number], [place] [address] December, [facility] [id number], [place] [address] December, [facility] [id number], [place] [address] December, [facility] [id number], [place] [address] Nov, [facility] [id number], [place] [address] Nov, [facility] [id number], [place] [address] Nov, [facility] [id number], [place] [address] Oct, [facility] [id number] [address] Oct, [facility] [id number] [address] Oct, [facility] [id number] [place] [address] Oct, [facility] [place] [facility] [address] [id number] [place] [address] Oct, [facility] [place] [facility] [address] [id number] [place] [address] Oct, [facility] [place] [facility] [address] [id number] [place] [address] Sep, 2014 [facility] [place] [facility] [address] [id number] [place] [address] Sep, 2014 [facility] [place] [facility] [address] [id number] [place] [address] Sep, 2014 [facility] [place] [facility] [address] [id number] [place] [address] Sep, 2014 [facility] [place] [facility] [address] [id number] [place] [address] Sep, [facility] [place] [facility] [address] [id number] [place] [address] Sep, [facility] [place] [facility] [address] [id number] [place] [address] Aug, [facility] [place] [facility] [address] [id number] [place] [address] Aug, [facility] [place] [facility] [address] [id number] [place] [address] Aug, [facility] [place] [facility] [address] [id number] [place] [address] Aug, [facility] [place] [facility] [address] [id number] [place] [address] Aug, [facility] [place] [facility] [address] [id number] [place] [address] Aug, [facility] [place] [facility] [address] [id number] [place] [address] Aug, [facility] [place] [facility] [address] [id number] [place] [address] 14 Aug, 2014 [facility] [place] [facility] [address] [id number] [place] [address] Aug, [facility] [place] [facility] [address] [id number] [place] [address] Aug, [facility] [place] [facility] [address] [id number] [place] [address] Aug, [facility] [place] [facility] [address] [id number] [place] [address] Aug, [facility] [place] [facility] [address] [id number] [place] [address] Aug, [facility] [place] [facility] [address] [id number] [place] [address] Aug, [facility] [place] [facility] [address] [id number] [place] [address] Aug, [facility] [place] [facility] [address] [id number] [place] [address] Aug, [facility] [place] [facility] [address] [id number] [place] [address] Jul, [facility] [place] [facility] [address] [id number], [place] [address] 15 Jul, 2014 [facility] [place] [facility] [address] [id number], [place] [address] 15 Jul, 2014 [facility] [place] [facility] [address] [id number] [place] [address] Jul, [facility] [place] [facility] [address] [id number] [place] [address] Jul, [facility] [place] [facility] [address] [id number] [place] [address] Jul, [facility] [place] [facility] [address] [id number] [place] [address] 11 Jul, 2014 [facility] [place] [facility] [address] [id number] [place] [address] Jul, [facility] [place] [facility] [address] [id number] [place] [address] Jul, [facility] [place] [facility] [address] [id number] [place] [address] 05 Jul, 2014 [facility] [place] [facility] [address] [id number] [place] [address] 05 Jul, 2014 [facility] [place] [facility] [address] [id number] [place] [address] Jul, [facility] [place] [facility] [address] [id number] [place] [address] Jul, [facility] [place] [facility] [address] [id number] [place] [address] Jun, [facility] [place] [facility] [address] [id number] [place] [address] Jun, [facility] [place] [facility] [address] [id number] [place] [address] Jun, [facility] [place] [facility] [address] [facility] [id number] [place] [address] Jun, [facility] [place] [facility] [address] [id number] [place] [address] Jun, [facility] [place] [facility] [address] [id number] [place] [address] Jun, [facility] [place] [facility] [address] [id number] [place] [address] Jun, [facility] [place] [facility] [address] [id number] [place] [address] Jun, [facility] [place] [facility] [address] [id number], [place] [address] Jun, [facility] [place] [facility] [address] [id number] [place] [address] Jun, [facility] [place] [facility] [address] [id number] [place] [address] Jun, [facility] [place] [facility] [address] [id number] [place] [address] Jun, [facility] [place] [facility] [address] [id number] [place] [address] Jun, [facility] [place] [facility] [address] [id number] [place] [address] Jun, [facility] [place] [facility] [address] [id number] [place] [address] May, [facility] [place] [facility] [address] [id number] [place] [address] May, [facility] [place] [facility] [address] [id number] [place] [address] May, [facility] [place] [facility] [address] [id number] [place] [address] May, [facility] [place] [facility] [address] [id number] [place] [address] May, [facility] [place] [facility] [address] [id number] [place] [address] May, [facility] [place] [facility] [address] [id number] [place] [address] May, [facility] [place] [facility] [address] [id number] [place] [address] May, [facility] [place] [facility] [address] [id number] [place] [address] May, [facility] [place] [facility] [address] [id number] [place] [address] May, [facility] [place] [facility] [address] [id number] [place] [address] 30 Sep, 2013 [facility] [place] [facility] [address] [id number] [place] [address] 30 Sep, 2013 [facility] [place] [facility] [address] [id number] [place] [address] 19 Sep, 2013 [facility] [place] [facility] [address] [id number] [place] [address] 19 Sep, 2013 [facility] [place] [facility] [address] [id number] [place] [address] 18 Sep, 2013 [facility] [place] [facility] [address] [id number] [place] [address] 18 Sep, 2013 [facility] [place] [facility] [address] [id number] [place] [address] 18 Sep, 2013 [facility] [place] [facility] [address] [id number] [place] [address] 18 Sep, 2013 [facility] [place] [facility] [address] [id number] [place] [address] 16 Sep, 2013 [facility] [place] [facility] [address] [id number] [place] [address] 16 Sep, 2013 [facility] [place] [facility] [address] [id number] [place] [address] 08 Sep, 2013 [facility] [place] [facility] [address] [id number] [place] [address] 08 Sep, 2013 [facility] [place] [facility] [address] [id number] [place] [address] 08 Sep, 2013 [facility] [place] [facility] [address] [id number] [place] [address] 08 Sep, 2013 [facility] [place] [facility] [address] [id number] [place] [address] 04 Sep, 2013 [facility] [place] [facility] [address] [id number] [place] [address] 04 Sep, 2013 [facility] [place] [facility] [address] [id number] [place] [address] Mar, [facility] [place] [facility] [address] [id number] [place] [address] Mar, [facility] [place] [facility] [address] [id number] [place] [address] Mar, [facility] [place] [facility] [address] [id number] [place] [address] Jan, [facility] [place] [facility] [address] [id number] [place] [address] 23 Jan, 2014 [facility] [place] [facility] [address] [id number] [place] [address] Jan, [facility] [place] [facility] [address] [id number] [place] [address] 18 Jan, 2014 [facility] [place] [facility] [address] [id number] [place] [address] 16 Jan, 2014 [facility] [place] [facility] [address] [id number] [place] [address] 16 Jan, 2014 [facility] [place] [facility] [address] [id number] [place] [address] 16 Jan, 2014 [facility] [place] [facility] [address] [id number] [place] [address] 16 Jan, 2014 [facility] [place] [facility] [address] [id number] [place] [address] Jan, [facility] [place] [facility] [address] [id number] [place] [address] Jan, [facility] [place] [facility] [address] [id number] [place] [address] Jan, [facility] [place] [facility] [address] [id number] [place] [address] 11 Jan, 2014 [facility] [place] [facility] [address] [id number] [place] [address] Jan, [facility] [place] [facility] [address] [id number] [place] [address] Jan, [facility] [place] [facility] [address] [id number] [place] [address] Jan, [facility] [place] [facility] [address] [id number] [place] [address] Jan, [facility] [place] [facility] [address] [id number] [place] [address] December, [facility] [place] [facility] [address] [id number] [place] [address] December, [facility] [place] [facility] [address] [id number] [place] [address] December, [facility] [place] [facility] [address] [id number] [place] [address] December, [facility] [place] [facility] [address] [id number] [place] [address] December, [facility] [place] [facility] [address] [id number] [place] [address] Nov, [facility] [place] [facility] [address] [id number] [place] [address] Nov, [facility] [place] [facility] [address] [id number] [place] [address] Nov, [facility] [place] [facility] [address] [id number] [place] [address] Nov, [facility] [place] [facility] [address] [id number] [place] [address] Nov, [facility] [place] [facility] [address] [id number] [place] [address] Nov, [facility] [place] [facility] [address] [id number] [place] [address] Nov, [facility] [place] [facility] [address] [id number], [place] [address] 24 Nov, 2013 [facility] [place] [facility] [address] [id number] [place] [address] Nov, [facility] [place] [facility] [address] [id number] [place] [address] Nov, [facility] [place] [facility] [address] [facility] [id number] [place] [address] Oct, [facility] [place] [facility] [address] [id number] [place] [address] Oct, [facility] [place] [facility] [address] [id number] [place] [address] Oct, [facility] [place] [facility] [address] [id number] [place] [address] Oct, [facility] [place] [facility] [address] [facility] [id number] [place] [address] Oct, [facility] [place] [facility] [address] [id number] [place] [address] Oct, [facility] [place] [facility] [address] [id number] [place] [address] Oct, [facility] [place] [facility] [address] [facility] [id number] [place] [address] Oct, [facility] [place] [facility] [address] [id number] [place] [address] Oct, [facility] [place] [facility] [address] [id number] [place] [address] Sep, [facility] [place] [facility] [address] [id number] [place] [address] Sep, [facility] [place] [facility] [address] [id number] [place] [address] Sep, [facility] [place] [facility] [address] [facility] [id number] [place] [address] Sep, [facility] [place] [facility] [address] [id number] [place] [address] Sep, [facility] [place] [facility] [address] [id number] [place] [address] Sep, [facility] [place] [facility] [address] [id number] [place] [address] Sep, [facility] [place] [facility] [address] [id number] [place] [address] Aug, [facility] [place] [facility] [address] [id number] [place] [address] Aug, [facility] [place] [facility] [address] [id number] [place] [address] Aug, [facility] [place] [facility] [address] [id number] [place] [address] Aug, [facility] [place] [facility] [address] [id number] [place] [address] Aug, [facility] [place] [facility] [address] [id number] [place] [address] Aug, [facility] [place] [facility] [address] [id number] [place] [address] Aug, [facility] [place] [facility] [address] [id number] [place] [address] Aug, [facility] [place] [facility] [address] [id number], [place] [address] Jul, [facility] [place] [facility] [address] [id number] [place] [address] Jul, [facility] [place] [facility] [address] [id number] [place] [address] Jul, [facility] [place] [facility] [address] [id number], [place] [address] Jul, [facility] [place] [facility] [address] [id number], [place] [address] Jun, [facility] [place] [facility] [address] [id number] [place] [address] Jun, [facility] [place] [facility] [address] [id number] [place] [address] Jun, [facility] [place] [facility] [address] [id number] [place] [address] May, [facility] [place] [facility] [address] [id number] [place] [address] May, [facility] [place] [facility] [address] [id number] [place] [address] May, [facility] [place] [facility] [address] [id number] [place] [address] May, [facility] [place] [facility] [address] [id number] [place] [address] May, [facility] [place] [facility] [address] [id number] [place] [address] May, [facility] [place] [facility] [address] [facility] [id number] [place] [address] May, [facility] [place] [facility] [address] [facility] [id number] [place] [address] Apr, [facility] [place] [facility] [address] [id number], [place] [address] 17 Apr, 2013 [facility] [place] [facility] [address] [id number], [place] [address] 12 Apr, 2013 [facility] [place] [facility] [address] [id number] [place] [address] 11 Apr, 2013 [facility] [place] [facility] [address] [facility] [id number] [place] [address] 05 Apr, 2013 [facility] [place] [facility] [address] [facility] [id number] [place] [address] Mar, [facility] [place] [facility] [address] [id number] [place] [address] Mar, [facility] [place] [facility] [address] [id number] [place] [address] Mar, [facility] [place] [facility] [address] [id number] [place] [address] Mar, [facility] [place] [facility] [address] [id number] [place] [address] Feb, [facility] [place] [facility] [address] [id number] [place] [address] Feb, [facility] [place] [facility] [address] [id number] [place] [address] Feb, [facility] [place] [facility] [address] [id number] [place] [address] Feb, [facility] [place] [facility] [address] [id number] [place] [address] Feb, [facility] [place] [facility] [address] [id number] [place] [address] Feb, [facility] [place] [facility] [address] [id number] [place] [address] Feb, [facility] [place] [facility] [address] [id number] [place] [address] Feb, [facility] [place] [facility] [address] [id number] [place] [address] Jan, [facility] [place] [facility] [address] [id number] [place] [address] Jan, [facility] [place] [facility] [address] [id number] [place] [address] Jan, [facility] [place] [facility] [address] [id number] [place] [address] Jan, [facility] [place] [facility] [address] [id number] [place] [address] Jan, [facility] [address] [id number] [place] [address] Jan, [facility] [place] [facility] [address] [id number] [place] [address] Jan, [facility] [place] [facility] [address] [id number] [place] [address] December, [facility] [place] [facility] [address] [id number] [place] [address] December, [facility] [address] [id number] [place] [address] 30 Nov, 2012 [facility] [place] [facility] [address] [id number] [place] [address] Nov, [facility] [place] [facility] [address] [id number] [place] [address] Nov, [facility] [place] [facility] [address] [id number] [place] [address] Nov, [facility] [place] [facility] [address] [id number] [place] [address] 24 Nov, 2012 [facility] [place] [facility] [address] [id number] [place] [address] Nov, [facility] [place] [facility] [address] [id number] [place] [address] Nov, [facility] [place] [facility] [address] [id number], [place] [address] 15 Nov, 2012 [facility] [place] [facility] [address] [id number] [place] [address] 11 Nov, 2012 [facility] [place] [facility] [address] [id number] [place] [address] 10 Nov, 2012 [facility] [place] [facility] [address] [id number] [place] [address] 08 Nov, 2012 [facility] [place] [facility] [address] [id number] [place] [address] 05 Nov, 2012 [facility] [address] [id number] [place] [address] Nov, [facility] [place] [facility] [address] [id number] [place] [address] Nov, [facility] [address] [id number] [place] [address] Oct, [facility] [place] [facility] [address] [id number] [place] [address] Oct, [facility] [address] [id number] [place] [address] Oct, [facility] [address] [id number] [place] [address] Oct, [facility] [address] [id number] [place] [address] Oct, [facility] [address] [id number] [place] [address] Oct, [facility] [address] [id number] [place] [address] Oct, [facility] [address] [id number] [place] [address] Oct, [facility] [address] [id number] [place] [address] Oct, [facility] [place] [facility] [address] [id number] [place] [address] Sep, [facility] [place] [facility] [address] [id number] [place] [address] Aug, [facility] [place] [facility] [address] [id number] [place] [address] Aug, [facility] [place] [facility] [address] [id number] [place] [address] Aug, [facility] [place] [facility] [address] [id number] [place] [address] Aug, [facility] [place] [facility] [address] [id number] [place] [address] 31 Jul, 2012 [facility] [place] [facility] [address] [id number] [place] [address] 31 Jul, 2012 [facility] [place] [facility] [address] [id number] [place] [address] Jul, [facility] [address] [id number] [place] [address] 19 Jul, 2012 [facility] [place] [facility] [address] [id number] [place] [address] Jul, [facility] [address] [id number] [place] [address] 15 Jul, 2012 [facility] [place] [facility] [address] [id number] [place] [address] 15 Jul, 2012 [facility] [place] [facility] [address] [id number] [place] [address] 14 Jul, 2012 [facility] [place] [facility] [address] [id number] [place] [address] 14 Jul, 2012 [facility] [place] [facility] [address] [id number] [place] [address] May, [facility] [place] [facility] [address] [id number] [place] [address] 22 May, 2012 [facility] [place] [facility] [address] [id number] [place] [address] 16 May, 2012 [facility] [place] [facility] [address] [id number] [place] [address] 16 May, 2012 [facility] [place] [facility] [address] [id number] [place] [address] 12 May, 2012 [facility] [place] [facility] [address] [id number] [place] [address] May, [facility] [place] [facility] [address] [id number] [place] [address] 27 Apr, 2012 [facility] [place] [facility] [address] [id number] [place] [address] 27 Apr, 2012 [facility] [place] [facility] [address] [id number] [place] [address] 24 Apr, 2012 [facility] [place] [facility] [address] [id number] [place] [address] 18 Apr, 2012 [facility] [place] [facility] [address] [id number] [place] [address] 14 Apr, 2012 [facility] [place] [facility] [address] [id number] [place] [address] 12 Apr, 2012 [facility] [place] [facility] [address] [id number] [place] [address] Mar, [facility] [place] [facility] [address] [id number] [place] [address] Feb, [facility] [place] [facility] [address] [id number] [place] [address] Feb, [facility] [place] [facility] [address] [id number] [place] [address] Feb, [facility] [place] [facility] [address] [id number] [place] [address] Jan, [facility] [place] [facility] [address] [id number] [place] [address] December, [facility] [place] [facility] [address] [id number] [place] [address] December, [facility] [place] [facility] [address] [id number] [place] [address] December, [facility] [place] [facility] [address] [id number] [place] [address] December, [facility] [place] [facility] [address] [id number] [place] [address] December, [facility] [address] [id number] [place] [address] December, [facility] [address] [id number] [place] [address] Nov, [facility] [address] [id number] [place] [address] Nov, [facility] [address] [id number] [place] [address] 17 Nov, 2011 [facility] [address] [id number] [place] [address] Nov, [facility] [address] [id number] [place] [address] 16 Nov, 2011 [facility] [address] [id number] [place] [address] 13 Nov, 2011 [facility] [address] [id number] [place] [address] 12 Nov, 2011 [facility] [address] [id number] [place] [address] Nov, [facility] [address] [id number] [place] [address] 05 Nov, 2011 [facility] [address] [id number] [place] [address] 04 Nov, 2011 [facility] [address] [id number] [place] [address] 30 Oct, 2011 [facility] [place] [facility] [address] [id number] [place] [address] 29 Oct, 2011 [facility] [address] [id number] [place] [address] 28 Oct, 2011 [facility] [address] [id number] [place] [address] Oct, [facility] [place] [facility] [address] [id number] [place] [address] 26 Oct, 2011 [facility] [place] [facility] [address] [id number] [place] [address] 23 Oct, 2011 [facility] [place] [facility] [address] [id number] [place] [address] 21 Oct, 2011 [facility] [place] [facility] [address] [id number] [place] [address] 19 Oct, 2011 [facility] [place] [facility] [address] [id number] [place] [address] 08 Oct, 2011 [facility] [place] [facility] [address] [id number] [place] [address] 07 Oct, 2011 [facility] [place] [facility] [address] [id number] [place] [address] 06 Oct, 2011 [facility] [place] [facility] [address] [id number] [place] [address] 05 Oct, 2011 [facility] [place] [facility] [address] [id number] [place] [address] 16 Sep, 2011 [facility] [place] [facility] [address] [id number] [place] [address] 14 Sep, 2011 [facility] [place] [facility] [address] [id number] [place] [address] 12 Sep, 2011 [facility] [place] [facility] [address] [id number] [place] [address] 10 Sep, 2011 [facility] [place] [facility] [address] [id number] [place] [address] 06 Sep, 2011 [facility] [place] [facility] [address] [id number] [place] [address] 06 Sep, 2011 [facility] [place] [facility] [address] [facility] [id number] [place] [address] 06 Sep, 2011 [facility] [place] [facility] [address] [id number] [place] [address] 06 Sep, 2011 [facility] [address] [id number] [place] [address] Sep, [facility] [address] [id number] [place] [address] 30 Aug, 2011 [facility] [address] [id number] [place] [address] Aug, [facility] [address] [id number] [place] [address] Aug, [facility] [address] [id number] [place] [address] Aug, [facility] [address] [id number] [place] [address] Aug, [facility] [address] [id number] [place] [address] Aug, [facility] [address] [id number] [place] [address] Aug, [facility] [address] [id number] [place] [address] 24 Jul, 2011 [facility] [address] [id number] [place] [address] 16 Jul, 2011 [facility] [address] [id number] [place] [address] 16 Jul, 2011 [facility] [address] [id number] [place] [address] 14 Jul, 2011 [facility] [place] [facility] [address] [id number] [place] [address] 30 Jun, 2011 [facility] [address] [id number] [place] [address] Jun, [facility] [address] [id number] [place] [address] May, [facility] [address] [facility] [id number] [place] [address] Mar, [facility] [address] [facility] [id number] [address] Jan, [facility] [address] [facility] [id number] [place] [address] May, IMMUNIZATIONS No Known Immunizations SOCIAL HISTORY Never Assessed REASON FOR VISIT [facility] [place] VITAL SIGNS MEDICATIONS Unknown [...]
--- OUTSIDE RECORDS SUMMARY | 2019-03-23 07:19 | XMS REPORT ---
Author Author Migration, Doctor Organization [facility] Address Unknown Phone Unavailable Care Team Providers Care [employer] Name Role Phone Migration, Doctor Unavailable Unavailable PROBLEMS Type Condition ICD9-CM Code UCD81-GM Code Onset Dates Condition Status SNOMED Code Problem Other postablative hypothyroidism 244.1 Active 960213948 Problem Major depressive disorder, recurrent episode, severe, without mention of psychotic behavior 296.33 Active [id number] ALLERGIES No Information ENCOUNTERS Encounter Location Date Diagnosis [place] [id number] [place] [address] Sep, Unspecified mood [affective] disorder [place] [id number] [place] [address] Aug, Unspecified mood [affective] disorder [place] [id number] [place] [address] Jul, Unspecified mood [affective] disorder [address] [place] [id number] [place] [address] Jun, Unspecified mood [affective] disorder [place] [id number] [place] [address] Mar, Affective disorder 296.90 [place] [id number] [place] [address] Mar, [place] [id number] [place] [address] Feb, Nexplanon removal V25.43 and Initiation of OCP (BCP) V25.01 [place] [id number] [place] [address] Feb, Episodic mood disorder 296.90 [place] [id number] [place] [address] [place] [address] Feb, [facility] [id number] [address] Feb, Routine gynecological examination V72.31 ; Pap test, as part of routine gynecological examination V76.2 ; Breast cancer screening V76.10 ; Nexplanon in place V45.52 and Rash 782.1 [facility] [id number] [address] Jan, Episodic mood disorder 296.90 [facility] [id number], [place] [address] Jan, [facility] [id number] [address] December, Episodic mood disorder 296.90 [facility] [id number] [address] December, [facility] [id number] [address] December, [facility] [id number] [address] December, [facility] [id number] [address] Nov, [facility] [id number] [address] Nov, [facility] [id number] [address] Nov, [facility] [id number] [address] Oct, [facility] [id number] [address] Oct, [facility] [id number] [address] Oct, [facility] [id number] [place] [address] Oct, [facility] [place] [facility] [address] [id number] [place] [address] Oct, [facility] [place] [facility] [address] [id number] [place] [address] Oct, [facility] [place] [facility] [address] [id number] [place] [address] Sep, 2014 [facility] [place] [facility] [address] [id number] [place] [address] Sep, 2014 [facility] [place] [facility] [address] [id number] [place] [address] Sep, 2014 [facility] [place] [facility] [address] [id number] [place] [address] Sep, 2014 [facility] [place] [facility] [address] [id number] [place] [address] Sep, [facility] [place] [facility] [address] [id number] [place] [address] Sep, [facility] [place] [facility] [address] [id number] [place] [address] Aug, [facility] [place] [facility] [address] [id number] [place] [address] Aug, [facility] [place] [facility] [address] [id number] [place] [address] Aug, [facility] [place] [facility] [address] [id number] [place] [address] Aug, [facility] [place] [facility] [address] [id number] [place] [address] Aug, [facility] [place] [facility] [address] [id number] [place] [address] Aug, [facility] [place] [facility] [address] [id number] [place] [address] Aug, [facility] [place] [facility] [address] [id number] [place] [address] 14 Aug, 2014 [facility] [place] [facility] [address] [id number] [place] [address] Aug, [facility] [place] [facility] [address] [id number] [place] [address] Aug, [facility] [place] [facility] [address] [id number] [place] [address] Aug, [facility] [place] [facility] [address] [id number] [place] [address] Aug, [facility] [place] [facility] [address] [id number] [place] [address] Aug, [facility] [place] [facility] [address] [id number] [place] [address] Aug, [facility] [place] [facility] [address] [id number] [place] [address] Aug, [facility] [place] [facility] [address] [id number] [place] [address] Aug, [facility] [place] [facility] [address] [id number] [place] [address] Jul, [facility] [place] [facility] [address] [id number], [place] [address] 15 Jul, 2014 [facility] [place] [facility] [address] [id number], [place] [address] 15 Jul, 2014 [facility] [place] [facility] [address] [id number] [place] [address] Jul, [facility] [place] [facility] [address] [id number] [place] [address] Jul, [facility] [place] [facility] [address] [id number] [place] [address] Jul, [facility] [place] [facility] [address] [id number] [place] [address] 11 Jul, 2014 [facility] [place] [facility] [address] [id number] [place] [address] Jul, [facility] [place] [facility] [address] [id number] [place] [address] Jul, [facility] [place] [facility] [address] [id number] [place] [address] 05 Jul, 2014 [facility] [place] [facility] [address] [id number] [place] [address] 05 Jul, 2014 [facility] [place] [facility] [address] [id number] [place] [address] Jul, [facility] [place] [facility] [address] [id number] [place] [address] Jul, [facility] [place] [facility] [address] [id number] [place] [address] Jun, [facility] [place] [facility] [address] [id number] [place] [address] Jun, [facility] [place] [facility] [address] [id number] [place] [address] Jun, [facility] [place] [facility] [address] [facility] [id number] [place] [address] Jun, [facility] [place] [facility] [address] [id number] [place] [address] Jun, [facility] [place] [facility] [address] [id number] [place] [address] Jun, [facility] [place] [facility] [address] [id number] [place] [address] Jun, [facility] [place] [facility] [address] [id number] [place] [address] Jun, [facility] [place] [facility] [address] [id number], [place] [address] Jun, [facility] [place] [facility] [address] [id number] [place] [address] Jun, [facility] [place] [facility] [address] [id number] [place] [address] Jun, [facility] [place] [facility] [address] [id number] [place] [address] Jun, [facility] [place] [facility] [address] [id number] [place] [address] Jun, [facility] [place] [facility] [address] [id number] [place] [address] Jun, [facility] [place] [facility] [address] [id number] [place] [address] May, [facility] [place] [facility] [address] [id number] [place] [address] May, [facility] [place] [facility] [address] [id number] [place] [address] May, [facility] [place] [facility] [address] [id number] [place] [address] May, [facility] [place] [facility] [address] [id number] [place] [address] May, [facility] [place] [facility] [address] [id number] [place] [address] May, [facility] [place] [facility] [address] [id number] [place] [address] May, [facility] [place] [facility] [address] [id number] [place] [address] May, [facility] [place] [facility] [address] [id number] [place] [address] May, [facility] [place] [facility] [address] [id number] [place] [address] May, [facility] [place] [facility] [address] [id number] [place] [address] 30 Sep, 2013 [facility] [place] [facility] [address] [id number] [place] [address] 30 Sep, 2013 [facility] [place] [facility] [address] [id number] [place] [address] 19 Sep, 2013 [facility] [place] [facility] [address] [id number] [place] [address] 19 Sep, 2013 [facility] [place] [facility] [address] [id number] [place] [address] 18 Sep, 2013 [facility] [place] [facility] [address] [id number] [place] [address] 18 Sep, 2013 [facility] [place] [facility] [address] [id number] [place] [address] 18 Sep, 2013 [facility] [place] [facility] [address] [id number] [place] [address] 18 Sep, 2013 [facility] [place] [facility] [address] [id number] [place] [address] 16 Sep, 2013 [facility] [place] [facility] [address] [id number] [place] [address] 16 Sep, 2013 [facility] [place] [facility] [address] [id number] [place] [address] 08 Sep, 2013 [facility] [place] [facility] [address] [id number] [place] [address] 08 Sep, 2013 [facility] [place] [facility] [address] [id number] [place] [address] 08 Sep, 2013 [facility] [place] [facility] [address] [id number] [place] [address] 08 Sep, 2013 [facility] [place] [facility] [address] [id number] [place] [address] 04 Sep, 2013 [facility] [place] [facility] [address] [id number] [place] [address] 04 Sep, 2013 [facility] [place] [facility] [address] [id number] [place] [address] Mar, [facility] [place] [facility] [address] [id number] [place] [address] Mar, [facility] [place] [facility] [address] [id number] [place] [address] Mar, [facility] [place] [facility] [address] [id number] [place] [address] Jan, [facility] [place] [facility] [address] [id number] [place] [address] 23 Jan, 2014 [facility] [place] [facility] [address] [id number] [place] [address] Jan, [facility] [place] [facility] [address] [id number] [place] [address] 18 Jan, 2014 [facility] [place] [facility] [address] [id number] [place] [address] 16 Jan, 2014 [facility] [place] [facility] [address] [id number] [place] [address] 16 Jan, 2014 [facility] [place] [facility] [address] [id number] [place] [address] 16 Jan, 2014 [facility] [place] [facility] [address] [id number] [place] [address] 16 Jan, 2014 [facility] [place] [facility] [address] [id number] [place] [address] Jan, [facility] [place] [facility] [address] [id number] [place] [address] Jan, [facility] [place] [facility] [address] [id number] [place] [address] Jan, [facility] [place] [facility] [address] [id number] [place] [address] 11 Jan, 2014 [facility] [place] [facility] [address] [id number] [place] [address] Jan, [facility] [place] [facility] [address] [id number] [place] [address] Jan, [facility] [place] [facility] [address] [id number] [place] [address] Jan, [facility] [place] [facility] [address] [id number] [place] [address] Jan, [facility] [place] [facility] [address] [id number] [place] [address] December, [facility] [place] [facility] [address] [id number] [place] [address] December, [facility] [place] [facility] [address] [id number] [place] [address] December, [facility] [place] [facility] [address] [id number] [place] [address] December, [facility] [place] [facility] [address] [id number] [place] [address] December, [facility] [place] [facility] [address] [id number] [place] [address] Nov, [facility] [place] [facility] [address] [id number] [place] [address] Nov, [facility] [place] [facility] [address] [id number] [place] [address] Nov, [facility] [place] [facility] [address] [id number] [place] [address] Nov, [facility] [place] [facility] [address] [id number] [place] [address] Nov, [facility] [place] [facility] [address] [id number] [place] [address] Nov, [facility] [place] [facility] [address] [id number] [place] [address] Nov, [facility] [place] [facility] [address] [id number], [place] [address] 24 Nov, 2013 [facility] [place] [facility] [address] [id number] [place] [address] Nov, [facility] [place] [facility] [address] [id number] [place] [address] Nov, [facility] [place] [facility] [address] [facility] [id number] [place] [address] Oct, [facility] [place] [facility] [address] [id number] [place] [address] Oct, [facility] [place] [facility] [address] [id number] [place] [address] Oct, [facility] [place] [facility] [address] [id number] [place] [address] Oct, [facility] [place] [facility] [address] [facility] [id number] [place] [address] Oct, [facility] [place] [facility] [address] [id number] [place] [address] Oct, [facility] [place] [facility] [address] [id number] [place] [address] Oct, [facility] [place] [facility] [address] [facility] [id number] [place] [address] Oct, [facility] [place] [facility] [address] [id number] [place] [address] Oct, [facility] [place] [facility] [address] [id number] [place] [address] Sep, [facility] [place] [facility] [address] [id number] [place] [address] Sep, [facility] [place] [facility] [address] [id number] [place] [address] Sep, [facility] [place] [facility] [address] [facility] [id number] [place] [address] Sep, [facility] [place] [facility] [address] [id number] [place] [address] Sep, [facility] [place] [facility] [address] [id number] [place] [address] Sep, [facility] [place] [facility] [address] [id number] [place] [address] Sep, [facility] [place] [facility] [address] [id number] [place] [address] Aug, [facility] [place] [facility] [address] [id number] [place] [address] Aug, [facility] [place] [facility] [address] [id number] [place] [address] Aug, [facility] [place] [facility] [address] [id number] [place] [address] Aug, [facility] [place] [facility] [address] [id number] [place] [address] Aug, [facility] [place] [facility] [address] [id number] [place] [address] Aug, [facility] [place] [facility] [address] [id number] [place] [address] Aug, [facility] [place] [facility] [address] [id number] [place] [address] Aug, [facility] [place] [facility] [address] [id number] [address] Jul, [facility] [place] [facility] [address] [id number] [place] [address] Jul, [facility] [place] [facility] [address] [id number] [place] [address] Jul, [facility] [place] [facility] [address] [id number], [place] [address] Jul, [facility] [place] [facility] [address] [id number], [place] [address] Jun, [facility] [place] [facility] [address] [id number] [place] [address] Jun, [facility] [place] [facility] [address] [id number] [place] [address] Jun, [facility] [place] [facility] [address] [id number] [place] [address] May, [facility] [place] [facility] [address] [id number] [place] [address] May, [facility] [place] [facility] [address] [id number] [place] [address] May, [facility] [place] [facility] [address] [id number] [place] [address] May, [facility] [place] [facility] [address] [id number] [place] [address] May, [facility] [place] [facility] [address] [id number] [place] [address] May, [facility] [place] [facility] [address] [facility] [id number] [place] [address] May, [facility] [place] [facility] [address] [facility] [id number] [place] [address] Apr, [facility] [place] [facility] [address] [id number], [place] [address] 17 Apr, 2013 [facility] [place] [facility] [address] [id number], [place] [address] 12 Apr, 2013 [facility] [place] [facility] [address] [id number] [place] [address] 11 Apr, 2013 [facility] [place] [facility] [address] [facility] [id number] [place] [address] 05 Apr, 2013 [facility] [place] [facility] [address] [facility] [id number] [place] [address] Mar, [facility] [place] [facility] [address] [id number] [place] [address] Mar, [facility] [place] [facility] [address] [id number] [place] [address] Mar, [facility] [place] [facility] [address] [id number] [place] [address] Mar, [facility] [place] [facility] [address] [id number] [place] [address] Feb, [facility] [place] [facility] [address] [id number] [place] [address] Feb, [facility] [place] [facility] [address] [id number] [place] [address] Feb, [facility] [place] [facility] [address] [id number] [place] [address] Feb, [facility] [place] [facility] [address] [id number] [place] [address] Feb, [facility] [place] [facility] [address] [id number] [place] [address] Feb, [facility] [place] [facility] [address] [id number] [place] [address] Feb, [facility] [place] [facility] [address] [id number] [place] [address] Feb, [facility] [place] [facility] [address] [id number] [place] [address] Jan, [facility] [place] [facility] [address] [id number] [place] [address] Jan, [facility] [place] [facility] [address] [id number] [place] [address] Jan, [facility] [place] [facility] [address] [id number] [place] [address] Jan, [facility] [place] [facility] [address] [id number] [place] [address] Jan, [facility] [address] [id number] [place] [address] Jan, [facility] [place] [facility] [address] [id number] [place] [address] Jan, [facility] [place] [facility] [address] [id number] [place] [address] December, [facility] [place] [facility] [address] [id number] [place] [address] December, [facility] [address] [id number] [place] [address] 30 Nov, 2012 [facility] [place] [facility] [address] [id number] [place] [address] Nov, [facility] [place] [facility] [address] [id number] [place] [address] Nov, [facility] [place] [facility] [address] [id number] [place] [address] Nov, [facility] [place] [facility] [address] [id number] [place] [address] 24 Nov, 2012 [facility] [place] [facility] [address] [id number] [place] [address] Nov, [facility] [place] [facility] [address] [id number] [place] [address] Nov, [facility] [place] [facility] [address] [id number] [address] 15 Nov, 2012 [facility] [place] [facility] [address] [id number] [place] [address] 11 Nov, 2012 [facility] [place] [facility] [address] [id number] [place] [address] 10 Nov, 2012 [facility] [place] [facility] [address] [id number] [place] [address] 08 Nov, 2012 [facility] [place] [facility] [address] [id number] [place] [address] 05 Nov, 2012 [facility] [address] [id number] [place] [address] Nov, [facility] [place] [facility] [address] [id number] [place] [address] Nov, [facility] [address] [id number] [place] [address] Oct, [facility] [place] [facility] [address] [id number] [place] [address] Oct, [facility] [address] [id number] [place] [address] Oct, [facility] [address] [id number] [place] [address] Oct, [facility] [address] [id number] [place] [address] Oct, [facility] [address] [id number] [place] [address] Oct, [facility] [address] [id number] [place] [address] Oct, [facility] [address] [id number] [place] [address] Oct, [facility] [address] [id number] [place] [address] Oct, [facility] [place] [facility] [address] [id number] [place] [address] Sep, [facility] [place] [facility] [address] [id number] [place] [address] Aug, [facility] [place] [facility] [address] [id number] [place] [address] Aug, [facility] [place] [facility] [address] [id number] [place] [address] Aug, [facility] [place] [facility] [address] [id number] [place] [address] Aug, [facility] [place] [facility] [address] [id number] [place] [address] 31 Jul, 2012 [facility] [place] [facility] [address] [id number] [place] [address] 31 Jul, 2012 [facility] [place] [facility] [address] [id number] [place] [address] Jul, [facility] [address] [id number] [place] [address] 19 Jul, 2012 [facility] [place] [facility] [address] [id number] [place] [address] Jul, [facility] [address] [id number] [place] [address] 15 Jul, 2012 [facility] [place] [facility] [address] [id number] [place] [address] 15 Jul, 2012 [facility] [place] [facility] [address] [id number] [place] [address] 14 Jul, 2012 [facility] [place] [facility] [address] [id number] [place] [address] 14 Jul, 2012 [facility] [place] [facility] [address] [id number] [place] [address] May, [facility] [place] [facility] [address] [id number] [place] [address] 22 May, 2012 [facility] [place] [facility] [address] [id number] [place] [address] 16 May, 2012 [facility] [place] [facility] [address] [id number] [place] [address] 16 May, 2012 [facility] [place] [facility] [address] [id number] [place] [address] 12 May, 2012 [facility] [place] [facility] [address] [id number] [place] [address] May, [facility] [place] [facility] [address] [id number] [place] [address] 27 Apr, 2012 [facility] [place] [facility] [address] [id number] [place] [address] 27 Apr, 2012 [facility] [place] [facility] [address] [id number] [place] [address] 24 Apr, 2012 [facility] [place] [facility] [address] [id number] [place] [address] 18 Apr, 2012 [facility] [place] [facility] [address] [id number] [place] [address] 14 Apr, 2012 [facility] [place] [facility] [address] [id number] [place] [address] 12 Apr, 2012 [facility] [place] [facility] [address] [id number] [place] [address] Mar, [facility] [place] [facility] [address] [id number] [place] [address] Feb, [facility] [place] [facility] [address] [id number] [place] [address] Feb, [facility] [place] [facility] [address] [id number] [place] [address] Feb, [facility] [place] [facility] [address] [id number] [place] [address] Jan, [facility] [place] [facility] [address] [id number] [place] [address] December, [facility] [place] [facility] [address] [id number] [place] [address] December, [facility] [place] [facility] [address] [id number] [place] [address] December, [facility] [place] [facility] [address] [id number] [place] [address] December, [facility] [place] [facility] [address] [id number] [place] [address] December, [facility] [address] [id number] [place] [address] December, [facility] [address] [id number] [place] [address] Nov, [facility] [address] [id number] [place] [address] Nov, [facility] [address] [id number] [place] [address] 17 Nov, 2011 [facility] [address] [id number] [place] [address] Nov, [facility] [address] [id number] [place] [address] 16 Nov, 2011 [facility] [address] [id number] [place] [address] 13 Nov, 2011 [facility] [address] [id number] [place] [address] 12 Nov, 2011 [facility] [address] [id number] [place] [address] Nov, [facility] [address] [id number] [place] [address] 05 Nov, 2011 [facility] [address] [id number] [place] [address] 04 Nov, 2011 [facility] [address] [id number] [place] [address] 30 Oct, 2011 [facility] [place] [facility] [address] [id number] [place] [address] 29 Oct, 2011 [facility] [address] [id number] [place] [address] 28 Oct, 2011 [facility] [address] [id number] [place] [address] Oct, [facility] [place] [facility] [address] [id number] [place] [address] 26 Oct, 2011 [facility] [place] [facility] [address] [id number] [place] [address] 23 Oct, 2011 [facility] [place] [facility] [address] [id number] [place] [address] 21 Oct, 2011 [facility] [place] [facility] [address] [id number] [place] [address] 19 Oct, 2011 [facility] [place] [facility] [address] [id number] [place] [address] 08 Oct, 2011 [facility] [place] [facility] [address] [id number] [place] [address] 07 Oct, 2011 [facility] [place] [facility] [address] [id number] [place] [address] 06 Oct, 2011 [facility] [place] [facility] [address] [id number] [place] [address] 05 Oct, 2011 [facility] [place] [facility] [address] [id number] [place] [address] 16 Sep, 2011 [facility] [place] [facility] [address] [id number] [place] [address] 14 Sep, 2011 [facility] [place] [facility] [address] [id number] [place] [address] 12 Sep, 2011 [facility] [place] [facility] [address] [id number] [place] [address] 10 Sep, 2011 [facility] [place] [facility] [address] [id number] [place] [address] 06 Sep, 2011 [facility] [place] [facility] [address] [id number] [place] [address] 06 Sep, 2011 [facility] [place] [facility] [address] [facility] [id number] [place] [address] 06 Sep, 2011 [facility] [place] [facility] [address] [id number] [place] [address] 06 Sep, 2011 [facility] [address] [id number] [place] [address] Sep, [facility] [address] [id number] [place] [address] 30 Aug, 2011 [facility] [address] [id number] [place] [address] Aug, [facility] [address] [id number] [place] [address] Aug, [facility] [address] [id number] [place] [address] Aug, [facility] [address] [id number] [place] [address] Aug, [facility] [address] [id number] [place] [address] Aug, [facility] [address] [id number] [place] [address] Aug, [facility] [address] [id number] [place] [address] 24 Jul, 2011 [facility] [address] [id number] [place] [address] 16 Jul, 2011 [facility] [address] [id number] [place] [address] 16 Jul, 2011 [facility] [address] [id number] [place] [address] 14 Jul, 2011 [facility] [place] [facility] [address] [id number] [place] [address] 30 Jun, 2011 [facility] [address] [id number] [place] [address] Jun, [facility] [address] [id number] [place] [address] May, [facility] [address] [facility] [id number] [place] [address] Mar, [facility] [address] [facility] [id number] [address] Jan, [facility] [address] [facility] [id number] [place] [address] May, IMMUNIZATIONS No Known Immunizations SOCIAL HISTORY Never Assessed REASON FOR VISIT [facility] [place], [place] [...]
--- OUTSIDE RECORDS SUMMARY | 2019-03-23 07:20 | XMS REPORT ---
Author Author Migration, Doctor Organization [facility] Address Unknown Phone Unavailable Care Team Providers Care Senior Economist Name Role Phone Migration, Doctor Unavailable Unavailable PROBLEMS Type Condition ICD9-CM Code NHS17-BM Code Onset Dates Condition Status SNOMED Code Problem Other postablative hypothyroidism 244.1 Active 385959721 Problem Major depressive disorder, recurrent episode, severe, without mention of psychotic behavior 296.33 Active 67484817 ALLERGIES No Information ENCOUNTERS Encounter Location Date Diagnosis [place] [id number] [place] [address] Sep, Unspecified mood [affective] disorder [place] [id number] [place] [address] Aug, Unspecified mood [affective] disorder [place] [id number] [place] [address] Jul, Unspecified mood [affective] disorder 9 [place] [id number] [place] [address] Jun, Unspecified mood [affective] disorder [place] [id number] [place] [address] Mar, Affective disorder 296.90 [place] [id number] [place] [address] Mar, [place] [id number] [place] [address] Feb, Nexplanon removal V25.43 and Initiation of OCP (BCP) V25.01 [place] [id number] [place] [address] Feb, Episodic mood disorder 296.90 [place] [id number] [place] [address] [place] [address] Feb, [facility] [address] [address] Feb, Routine gynecological examination V72.31 ; Pap test, as part of routine gynecological examination V76.2 ; Breast cancer screening V76.10 ; Nexplanon in place V45.52 and Rash 782.1 [facility] [address] [address] Jan, Episodic mood disorder 296.90 [facility] [address] [address] Jan, [facility] [address] [address] December, Episodic mood disorder 296.90 [facility] [address] [address] December, [facility] [address] [address] December, [facility] [address] [address] December, [facility] [address] [address] Nov, [facility] [address] [address] Nov, [facility] [address] [address] Nov, [facility] [address] [address] Oct, [facility] [address] [address] Oct, [facility] [id number] [address] Oct, [facility] [id number] [place] [place] [address] Oct, [facility] [place] [facility] [address] [id number] [place] [address] Oct, [facility] [place] [facility] [address] [id number] [place] [address] Oct, [facility] [place] [facility] [address] [id number] [place] [address] Sep, 2014 [facility] [place] [facility] [address] [id number] [place] [address] Sep, 2014 [facility] [place] [facility] [address] [id number] [place] [address] Sep, 2014 [facility] [place] [facility] [address] [id number] [place] [address] Sep, 2014 [facility] [place] [facility] [address] [id number] [place] [address] Sep, [facility] [place] [facility] [address] [id number] [place] [address] Sep, [facility] [place] [facility] [address] [id number] [place] [address] Aug, [facility] [place] [facility] [address] [id number] [place] [address] Aug, [facility] [place] [facility] [address] [id number] [place] [address] Aug, [facility] [place] [facility] [address] [id number] [place] [address] Aug, [facility] [place] [facility] [address] [id number] [place] [address] Aug, [facility] [place] [facility] [address] [id number] [place] [address] Aug, [facility] [place] [facility] [address] [id number] [place] [address] Aug, [facility] [place] [facility] [address] [id number] [place] [address] 14 Aug, 2014 [facility] [place] [facility] [address] [id number] [place] [address] Aug, [facility] [place] [facility] [address] [id number] [place] [address] Aug, [facility] [place] [facility] [address] [id number] [place] [address] Aug, [facility] [place] [facility] [address] [id number] [place] [address] Aug, [facility] [place] [facility] [address] [id number] [place] [address] Aug, [facility] [place] [facility] [address] [id number] [place] [address] Aug, [facility] [place] [facility] [address] [id number] [place] [address] Aug, [facility] [place] [facility] [address] [id number] [place] [address] Aug, [facility] [place] [facility] [address] [id number] [place] [address] Jul, [facility] [place] [facility] [address] [id number] [address] 15 Jul, 2014 [facility] [place] [facility] [address] [id number] [address] 15 Jul, 2014 [facility] [place] [facility] [address] [id number] [place] [address] Jul, [facility] [place] [facility] [address] [id number] [place] [address] Jul, [facility] [place] [facility] [address] [id number] [place] [address] Jul, [facility] [place] [facility] [address] [id number] [place] [address] 11 Jul, 2014 [facility] [place] [facility] [address] [id number] [place] [address] Jul, [facility] [place] [facility] [address] [id number] [place] [address] Jul, [facility] [place] [facility] [address] [id number] [place] [address] 05 Jul, 2014 [facility] [place] [facility] [address] [id number] [place] [address] 05 Jul, 2014 [facility] [place] [facility] [address] [id number] [place] [address] Jul, [facility] [place] [facility] [address] [id number] [place] [address] Jul, [facility] [place] [facility] [address] [id number] [place] [address] Jun, [facility] [place] [facility] [address] [id number] [place] [address] Jun, [facility] [place] [facility] [address] [id number] [place] [address] Jun, [facility] [place] [facility] [address] [facility] [id number] [place] [address] Jun, [facility] [place] [facility] [address] [id number] [place] [address] Jun, [facility] [place] [facility] [address] [id number] [place] [address] Jun, [facility] [place] [facility] [address] [id number] [place] [address] Jun, [facility] [place] [facility] [address] [id number] [place] [address] Jun, [facility] [place] [facility] [address] [id number] [address] Jun, [facility] [place] [facility] [address] [id number] [place] [address] Jun, [facility] [place] [facility] [address] [id number] [place] [address] Jun, [facility] [place] [facility] [address] [id number] [place] [address] Jun, [facility] [place] [facility] [address] [id number] [place] [address] Jun, [facility] [place] [facility] [address] [id number] [place] [address] Jun, [facility] [place] [facility] [address] [id number] [place] [address] May, [facility] [place] [facility] [address] [id number] [place] [address] May, [facility] [place] [facility] [address] [id number] [place] [address] May, [facility] [place] [facility] [address] [id number] [place] [address] May, [facility] [place] [facility] [address] [id number] [place] [address] May, [facility] [place] [facility] [address] [id number] [place] [address] May, [facility] [place] [facility] [address] [id number] [place] [address] May, [facility] [place] [facility] [address] [id number] [place] [address] May, [facility] [place] [facility] [address] [id number] [place] [address] May, [facility] [place] [facility] [address] [id number] [place] [address] May, [facility] [place] [facility] [address] [id number] [place] [address] 30 Sep, 2013 [facility] [place] [facility] [address] [id number] [place] [address] 30 Sep, 2013 [facility] [place] [facility] [address] [id number] [place] [address] 19 Sep, 2013 [facility] [place] [facility] [address] [id number] [place] [address] 19 Sep, 2013 [facility] [place] [facility] [address] [id number] [place] [address] 18 Sep, 2013 [facility] [place] [facility] [address] [id number] [place] [address] 18 Sep, 2013 [facility] [place] [facility] [address] [id number] [place] [address] 18 Sep, 2013 [facility] [place] [facility] [address] [id number] [place] [address] 18 Sep, 2013 [facility] [place] [facility] [address] [id number] [place] [address] 16 Sep, 2013 [facility] [place] [facility] [address] [id number] [place] [address] 16 Sep, 2013 [facility] [place] [facility] [address] [id number] [place] [address] 08 Sep, 2013 [facility] [place] [facility] [address] [id number] [place] [address] 08 Sep, 2013 [facility] [place] [facility] [address] [id number] [place] [address] 08 Sep, 2013 [facility] [place] [facility] [address] [id number] [place] [address] 08 Sep, 2013 [facility] [place] [facility] [address] [id number] [place] [address] 04 Sep, 2013 [facility] [place] [facility] [address] [id number] [place] [address] 04 Sep, 2013 [facility] [place] [facility] [address] [id number] [place] [address] Mar, [facility] [place] [facility] [address] [id number] [place] [address] Mar, [facility] [place] [facility] [address] [id number] [place] [address] Mar, [facility] [place] [facility] [address] [id number] [place] [address] Jan, [facility] [place] [facility] [address] [id number] [place] [address] 23 Jan, 2014 [facility] [place] [facility] [address] [id number] [place] [address] Jan, [facility] [place] [facility] [address] [id number] [place] [address] 18 Jan, 2014 [facility] [place] [facility] [address] [id number] [place] [address] 16 Jan, 2014 [facility] [place] [facility] [address] [id number] [place] [address] 16 Jan, 2014 [facility] [place] [facility] [address] [id number] [place] [address] 16 Jan, 2014 [facility] [place] [facility] [address] [id number] [place] [address] 16 Jan, 2014 [facility] [place] [facility] [address] [id number] [place] [address] Jan, [facility] [place] [facility] [address] [id number] [place] [address] Jan, [facility] [place] [facility] [address] [id number] [place] [address] Jan, [facility] [place] [facility] [address] [id number] [place] [address] 11 Jan, 2014 [facility] [place] [facility] [address] [id number] [place] [address] Jan, [facility] [place] [facility] [address] [id number] [place] [address] Jan, [facility] [place] [facility] [address] [id number] [place] [address] Jan, [facility] [place] [facility] [address] [id number] [place] [address] Jan, [facility] [place] [facility] [address] [id number] [place] [address] December, [facility] [place] [facility] [address] [id number] [place] [address] December, [facility] [place] [facility] [address] [id number] [place] [address] December, [facility] [place] [facility] [address] [id number] [place] [address] December, [facility] [place] [facility] [address] [id number] [place] [address] December, [facility] [place] [facility] [address] [id number] [place] [address] Nov, [facility] [place] [facility] [address] [id number] [place] [address] Nov, [facility] [place] [facility] [address] [id number] [place] [address] Nov, [facility] [place] [facility] [address] [id number] [place] [address] Nov, [facility] [place] [facility] [address] [id number] [place] [address] Nov, [facility] [place] [facility] [address] [id number] [place] [address] Nov, [facility] [place] [facility] [address] [id number] [place] [address] Nov, [facility] [place] [facility] [address] [id number] [address] 24 Nov, 2013 [facility] [place] [facility] [address] [id number] [place] [address] Nov, [facility] [place] [facility] [address] [id number] [place] [address] Nov, [facility] [place] [facility] [address] [facility] [id number] [place] [address] Oct, [facility] [place] [facility] [address] [id number] [place] [address] Oct, [facility] [place] [facility] [address] [id number] [place] [address] Oct, [facility] [place] [facility] [address] [id number] [place] [address] Oct, [facility] [place] [facility] [address] [facility] [id number] [place] [address] Oct, [facility] [place] [facility] [address] [id number] [place] [address] Oct, [facility] [place] [facility] [address] [id number] [place] [address] Oct, [facility] [place] [facility] [address] [facility] [id number] [place] [address] Oct, [facility] [place] [facility] [address] [id number] [place] [address] Oct, [facility] [place] [facility] [address] [id number] [place] [address] Sep, [facility] [place] [facility] [address] [id number] [place] [address] Sep, [facility] [place] [facility] [address] [id number] [place] [address] Sep, [facility] [place] [facility] [address] [facility] [id number] [place] [address] Sep, [facility] [place] [facility] [address] [id number] [place] [address] Sep, [facility] [place] [facility] [address] [id number] [place] [address] Sep, [facility] [place] [facility] [address] [id number] [place] [address] Sep, [facility] [place] [facility] [address] [id number] [place] [address] Aug, [facility] [place] [facility] [address] [id number] [place] [address] Aug, [facility] [place] [facility] [address] [id number] [place] [address] Aug, [facility] [place] [facility] [address] [id number] [place] [address] Aug, [facility] [place] [facility] [address] [id number] [place] [address] Aug, [facility] [place] [facility] [address] [id number] [place] [address] Aug, [facility] [place] [facility] [address] [id number] [place] [address] Aug, [facility] [place] [facility] [address] [id number] [place] [address] Aug, [facility] [place] [facility] [address] [id number] [address] Jul, [facility] [place] [facility] [address] [id number] [place] [address] Jul, [facility] [place] [facility] [address] [id number] [place] [address] Jul, [facility] [place] [facility] [address] [id number] [place] [address] Jul, [facility] [place] [facility] [address] [id number] [address] Jun, [facility] [place] [facility] [address] [id number] [place] [address] Jun, [facility] [place] [facility] [address] [id number] [place] [address] Jun, [facility] [place] [facility] [address] [id number] [place] [address] May, [facility] [place] [facility] [address] [id number] [place] [address] May, [facility] [place] [facility] [address] [id number] [place] [address] May, [facility] [place] [facility] [address] [id number] [place] [address] May, [facility] [place] [facility] [address] [id number] [place] [address] May, [facility] [place] [facility] [address] [id number] [place] [address] May, [facility] [place] [facility] [address] [facility] [id number] [place] [address] May, [facility] [place] [facility] [address] [facility] [id number] [place] [address] Apr, [facility] [place] [facility] [address] [id number] [place] [address] 17 Apr, 2013 [facility] [place] [facility] [address] [id number] [address] 12 Apr, 2013 [facility] [place] [facility] [address] [id number] [place] [address] 11 Apr, 2013 [facility] [place] [facility] [address] [facility] [id number] [place] [address] 05 Apr, 2013 [facility] [place] [facility] [address] [facility] [id number] [place] [address] Mar, [facility] [place] [facility] [address] [id number] [place] [address] Mar, [facility] [place] [facility] [address] [id number] [place] [address] Mar, [facility] [place] [facility] [address] [id number] [place] [address] Mar, [facility] [place] [facility] [address] [id number] [place] [address] Feb, [facility] [place] [facility] [address] [id number] [place] [address] Feb, [facility] [place] [facility] [address] [id number] [place] [address] Feb, [facility] [place] [facility] [address] [id number] [place] [address] Feb, [facility] [place] [facility] [address] [id number] [place] [address] Feb, [facility] [place] [facility] [address] [id number] [place] [address] Feb, [facility] [place] [facility] [address] [id number] [place] [address] Feb, [facility] [place] [facility] [address] [id number] [place] [address] Feb, [facility] [place] [facility] [address] [id number] [place] [address] Jan, [facility] [place] [facility] [address] [id number] [place] [address] Jan, [facility] [place] [facility] [address] [id number] [place] [address] Jan, [facility] [place] [facility] [address] [id number] [place] [address] Jan, [facility] [place] [facility] [address] [id number] [place] [address] Jan, [facility] [address] [id number] [place] [address] Jan, [facility] [place] [facility] [address] [id number] [place] [address] Jan, [facility] [place] [facility] [address] [id number] [place] [address] December, [facility] [place] [facility] [address] [id number] [place] [address] December, [facility] [address] [id number] [place] [address] 30 Nov, 2012 [facility] [place] [facility] [address] [id number] [place] [address] Nov, [facility] [place] [facility] [address] [id number] [place] [address] Nov, [facility] [place] [facility] [address] [id number] [place] [address] Nov, [facility] [place] [facility] [address] [id number] [place] [address] 24 Nov, 2012 [facility] [place] [facility] [address] [id number] [place] [address] Nov, [facility] [place] [facility] [address] [id number] [place] [address] Nov, [facility] [place] [facility] [address] [id number] [address] 15 Nov, 2012 [facility] [place] [facility] [address] [id number] [place] [address] 11 Nov, 2012 [facility] [place] [facility] [address] [id number] [place] [address] 10 Nov, 2012 [facility] [place] [facility] [address] [id number] [place] [address] 08 Nov, 2012 [facility] [place] [facility] [address] [id number] [place] [address] 05 Nov, 2012 [facility] [address] [id number] [place] [address] Nov, [facility] [place] [facility] [address] [id number] [place] [address] Nov, [facility] [address] [id number] [place] [address] Oct, [facility] [place] [facility] [address] [id number] [place] [address] Oct, [facility] [address] [id number] [place] [address] Oct, [facility] [address] [id number] [place] [address] Oct, [facility] [address] [id number] [place] [address] Oct, [facility] [address] [id number] [place] [address] Oct, [facility] [address] [id number] [place] [address] Oct, [facility] [address] [id number] [place] [address] Oct, [facility] [address] [id number] [place] [address] Oct, [facility] [place] [facility] [address] [id number] [place] [address] Sep, [facility] [place] [facility] [address] [id number] [place] [address] Aug, [facility] [place] [facility] [address] [id number] [place] [address] Aug, [facility] [place] [facility] [address] [id number] [place] [address] Aug, [facility] [place] [facility] [address] [id number] [place] [address] Aug, [facility] [place] [facility] [address] [id number] [place] [address] 31 Jul, 2012 [facility] [place] [facility] [address] [id number] [place] [address] 31 Jul, 2012 [facility] [place] [facility] [address] [id number] [place] [address] Jul, [facility] [address] [id number] [place] [address] 19 Jul, 2012 [facility] [place] [facility] [address] [id number] [place] [address] Jul, [facility] [address] [id number] [place] [address] 15 Jul, 2012 [facility] [place] [facility] [address] [id number] [place] [address] 15 Jul, 2012 [facility] [place] [facility] [address] [id number] [place] [address] 14 Jul, 2012 [facility] [place] [facility] [address] [id number] [place] [address] 14 Jul, 2012 [facility] [place] [facility] [address] [id number] [place] [address] May, [facility] [place] [facility] [address] [id number] [place] [address] 22 May, 2012 [facility] [place] [facility] [address] [id number] [place] [address] 16 May, 2012 [facility] [place] [facility] [address] [id number] [place] [address] 16 May, 2012 [facility] [place] [facility] [address] [id number] [place] [address] 12 May, 2012 [facility] [place] [facility] [address] [id number] [place] [address] May, [facility] [place] [facility] [address] [id number] [place] [address] 27 Apr, 2012 [facility] [place] [facility] [address] [id number] [place] [address] 27 Apr, 2012 [facility] [place] [facility] [address] [id number] [place] [address] 24 Apr, 2012 [facility] [place] [facility] [address] [id number] [place] [address] 18 Apr, 2012 [facility] [place] [facility] [address] [id number] [place] [address] 14 Apr, 2012 [facility] [place] [facility] [address] [id number] [place] [address] 12 Apr, 2012 [facility] [place] [facility] [address] [id number] [place] [address] Mar, [facility] [place] [facility] [address] [id number] [place] [address] Feb, [facility] [place] [facility] [address] [id number] [place] [address] Feb, [facility] [place] [facility] [address] [id number] [place] [address] Feb, [facility] [place] [facility] [address] [id number] [place] [address] Jan, [facility] [place] [facility] [address] [id number] [place] [address] December, [facility] [place] [facility] [address] [id number] [place] [address] December, [facility] [place] [facility] [address] [id number] [place] [address] December, [facility] [place] [facility] [address] [id number] [place] [address] December, [facility] [place] [facility] [address] [id number] [place] [address] December, [facility] [address] [id number] [place] [address] December, [facility] [address] [id number] [place] [address] Nov, [facility] [address] [id number] [place] [address] Nov, [facility] [address] [id number] [place] [address] 17 Nov, 2011 [facility] [address] [id number] [place] [address] Nov, [facility] [address] [id number] [place] [address] 16 Nov, 2011 [facility] [address] [id number] [place] [address] 13 Nov, 2011 [facility] [address] [id number] [place] [address] 12 Nov, 2011 [facility] [address] [id number] [place] [address] Nov, [facility] [address] [id number] [place] [address] 05 Nov, 2011 [facility] [address] [id number] [place] [address] 04 Nov, 2011 [facility] [address] [id number] [place] [address] 30 Oct, 2011 [facility] [place] [facility] [address] [id number] [place] [address] 29 Oct, 2011 [facility] [address] [id number] [place] [address] 28 Oct, 2011 [facility] [address] [id number] [place] [address] Oct, [facility] [place] [facility] [address] [id number] [place] [address] 26 Oct, 2011 [facility] [place] [facility] [address] [id number] [place] [address] 23 Oct, 2011 [facility] [place] [facility] [address] [id number] [place] [address] 21 Oct, 2011 [facility] [place] [facility] [address] [id number] [place] [address] 19 Oct, 2011 [facility] [place] [facility] [address] [id number] [place] [address] 08 Oct, 2011 [facility] [place] [facility] [address] [id number] [place] [address] 07 Oct, 2011 [facility] [place] [facility] [address] [id number] [place] [address] 06 Oct, 2011 [facility] [place] [facility] [address] [id number] [place] [address] 05 Oct, 2011 [facility] [place] [facility] [address] [id number] [place] [address] 16 Sep, 2011 [facility] [place] [facility] [address] [id number] [place] [address] 14 Sep, 2011 [facility] [place] [facility] [address] [id number] [place] [address] 12 Sep, 2011 [facility] [place] [facility] [address] [id number] [place] [address] 10 Sep, 2011 [facility] [place] [facility] [address] [id number] [place] [address] 06 Sep, 2011 [facility] [place] [facility] [address] [id number] [place] [address] 06 Sep, 2011 [facility] [place] [facility] [address] [facility] [id number] [place] [address] 06 Sep, 2011 [facility] [place] [facility] [address] [id number] [place] [address] 06 Sep, 2011 [facility] [address] [id number] [place] [address] Sep, [facility] [address] [id number] [place] [address] 30 Aug, 2011 [facility] [address] [id number] [place] [address] Aug, [facility] [address] [id number] [place] [address] Aug, [facility] [address] [id number] [place] [address] Aug, [facility] [address] [id number] [place] [address] Aug, [facility] [address] [id number] [place] [address] Aug, [facility] [address] [id number] [place] [address] Aug, [facility] [address] [id number] [place] [address] 24 Jul, 2011 [facility] [address] [id number] [place] [address] 16 Jul, 2011 [facility] [address] [id number] [place] [address] 16 Jul, 2011 [facility] [address] [id number] [place] [address] 14 Jul, 2011 [facility] [place] [facility] [address] [id number] [place] [address] 30 Jun, 2011 [facility] [address] [id number] [place] [address] Jun, [facility] [address] [id number] [place] [address] May, [facility] [address] [facility] [id number] [place] [address] Mar, [facility] [address] [facility] [id number] [place] [address] Jan, [facility] [address] [facility] [id number] [place] [address] May, IMMUNIZATIONS No Known Immunizations SOCIAL HISTORY Never Assessed [place]ASON FOR VISIT [facility] [place] VITAL SIGNS MEDICATIONS Unknown [...]
--- OUTSIDE RECORDS SUMMARY | 2019-03-23 07:20 | XMS REPORT ---
Author Author Migration, Doctor Organization [facility] Address Unknown Phone Unavailable Care Team Providers Care Software Support Engineer Name Role Phone Migration, Doctor Unavailable Unavailable PROBLEMS Type Condition ICD9-CM Code [id number] Code Onset Dates Condition Status SNOMED Code Problem Other postablative hypothyroidism 244.1 Active 290090157 Problem Major depressive disorder, recurrent episode, severe, without mention of psychotic behavior 296.33 Active 22800228 ALLERGIES No Information ENCOUNTERS Encounter Location Date Diagnosis [place] [id number] [place] [address] Sep, Unspecified mood [affective] disorder [place] [id number] [place] [address] Aug, Unspecified mood [affective] disorder [place] [id number] [place] [address] Jul, Unspecified mood [affective] disorder [address] [place] [id number] [place] [address] Jun, Unspecified mood [affective] disorder [place] [id number] [place] [address] Mar, Affective disorder 296.90 [place] [id number] [place] [address] Mar, [place] [id number] [place] [address] Feb, Nexplanon removal V25.43 and Initiation of OCP (BCP) V25.01 [place] [id number] [place] [address] Feb, Episodic mood disorder 296.90 [place] [id number] [place] [address] [place] [address] Feb, [facility] [id number], [place] [address] Feb, Routine gynecological examination V72.31 ; Pap test, as part of routine gynecological examination V76.2 ; Breast cancer screening V76.10 ; Nexplanon in place V45.52 and Rash 782.1 [facility] [id number], [place] [address] Jan, Episodic mood disorder 296.90 [facility] [id number], [place] [address] Jan, [facility] [id number], [place] [address] December, Episodic mood disorder 296.90 [facility] [id number], [place] [address] December, [facility] [id number], [place] [address] December, [facility] [id number], [place] [address] December, [facility] [id number], [place] [address] Nov, [facility] [id number], [place] [address] Nov, [facility] [id number], [place] [address] Nov, [facility] [id number], [place] [address] Oct, [facility] [id number], [place] [address] Oct, [facility] [address] [id number] [address] Oct, [facility] [id number] [place] [address] Oct, [facility] [place] [facility] [address] [id number] [place] [address] Oct, [facility] [place] [facility] [address] [id number] [place] [address] Oct, [facility] [place] [facility] [address] [id number] [place] [address] Sep, 2014 [facility] [place] [facility] [address] [id number] [place] [address] Sep, 2014 [facility] [place] [facility] [address] [id number] [place] [address] Sep, 2014 [facility] [place] [facility] [address] [id number] [place] [address] Sep, 2014 [facility] [place] [facility] [address] [id number] [place] [address] Sep, [facility] [place] [facility] [address] [id number] [place] [address] Sep, [facility] [place] [facility] [address] [id number] [place] [address] Aug, [facility] [place] [facility] [address] [id number] [place] [address] Aug, [facility] [place] [facility] [address] [id number] [place] [address] Aug, [facility] [place] [facility] [address] [id number] [place] [address] Aug, [facility] [place] [facility] [address] [id number] [place] [address] Aug, [facility] [place] [facility] [address] [id number] [place] [address] Aug, [facility] [place] [facility] [address] [id number] [place] [address] Aug, [facility] [place] [facility] [address] [id number] [place] [address] 14 Aug, 2014 [facility] [place] [facility] [address] [id number] [place] [address] Aug, [facility] [place] [facility] [address] [id number] [place] [address] Aug, [facility] [place] [facility] [address] [id number] [place] [address] Aug, [facility] [place] [facility] [address] [id number] [place] [address] Aug, [facility] [place] [facility] [address] [id number] [place] [address] Aug, [facility] [place] [facility] [address] [id number] [place] [address] Aug, [facility] [place] [facility] [address] [id number] [place] [address] Aug, [facility] [place] [facility] [address] [id number] [place] [address] Aug, [facility] [place] [facility] [address] [id number] [place] [address] Jul, [facility] [place] [facility] [address] [id number], [place] [address] 15 Jul, 2014 [facility] [place] [facility] [address] [id number], [place] [address] 15 Jul, 2014 [facility] [place] [facility] [address] [id number] [place] [address] Jul, [facility] [place] [facility] [address] [id number] [place] [address] Jul, [facility] [place] [facility] [address] [id number] [place] [address] Jul, [facility] [place] [facility] [address] [id number] [place] [address] 11 Jul, 2014 [facility] [place] [facility] [address] [id number] [place] [address] Jul, [facility] [place] [facility] [address] [id number] [place] [address] Jul, [facility] [place] [facility] [address] [id number] [place] [address] 05 Jul, 2014 [facility] [place] [facility] [address] [id number] [place] [address] 05 Jul, 2014 [facility] [place] [facility] [address] [id number] [place] [address] Jul, [facility] [place] [facility] [address] [id number] [place] [address] Jul, [facility] [place] [facility] [address] [id number] [place] [address] Jun, [facility] [place] [facility] [address] [id number] [place] [address] Jun, [facility] [place] [facility] [address] [id number] [place] [address] Jun, [facility] [place] [facility] [address] [facility] [id number] [place] [address] Jun, [facility] [place] [facility] [address] [id number] [place] [address] Jun, [facility] [place] [facility] [address] [id number] [place] [address] Jun, [facility] [place] [facility] [address] [id number] [place] [address] Jun, [facility] [place] [facility] [address] [id number] [place] [address] Jun, [facility] [place] [facility] [address] [id number], [place] [address] Jun, [facility] [place] [facility] [address] [id number] [place] [address] Jun, [facility] [place] [facility] [address] [id number] [place] [address] Jun, [facility] [place] [facility] [address] [id number] [place] [address] Jun, [facility] [place] [facility] [address] [id number] [place] [address] Jun, [facility] [place] [facility] [address] [id number] [place] [address] Jun, [facility] [place] [facility] [address] [id number] [place] [address] May, [facility] [place] [facility] [address] [id number] [place] [address] May, [facility] [place] [facility] [address] [id number] [place] [address] May, [facility] [place] [facility] [address] [id number] [place] [address] May, [facility] [place] [facility] [address] [id number] [place] [address] May, [facility] [place] [facility] [address] [id number] [place] [address] May, [facility] [place] [facility] [address] [id number] [place] [address] May, [facility] [place] [facility] [address] [id number] [place] [address] May, [facility] [place] [facility] [address] [id number] [place] [address] May, [facility] [place] [facility] [address] [id number] [place] [address] May, [facility] [place] [facility] [address] [id number] [place] [address] 30 Sep, 2013 [facility] [place] [facility] [address] [id number] [place] [address] 30 Sep, 2013 [facility] [place] [facility] [address] [id number] [place] [address] 19 Sep, 2013 [facility] [place] [facility] [address] [id number] [place] [address] 19 Sep, 2013 [facility] [place] [facility] [address] [id number] [place] [address] 18 Sep, 2013 [facility] [place] [facility] [address] [id number] [place] [address] 18 Sep, 2013 [facility] [place] [facility] [address] [id number] [place] [address] 18 Sep, 2013 [facility] [place] [facility] [address] [id number] [place] [address] 18 Sep, 2013 [facility] [place] [facility] [address] [id number] [place] [address] 16 Sep, 2013 [facility] [place] [facility] [address] [id number] [place] [address] 16 Sep, 2013 [facility] [place] [facility] [address] [id number] [place] [address] 08 Sep, 2013 [facility] [place] [facility] [address] [id number] [place] [address] 08 Sep, 2013 [facility] [place] [facility] [address] [id number] [place] [address] 08 Sep, 2013 [facility] [place] [facility] [address] [id number] [place] [address] 08 Sep, 2013 [facility] [place] [facility] [address] [id number] [place] [address] 04 Sep, 2013 [facility] [place] [facility] [address] [id number] [place] [address] 04 Sep, 2013 [facility] [place] [facility] [address] [id number] [place] [address] Mar, [facility] [place] [facility] [address] [id number] [place] [address] Mar, [facility] [place] [facility] [address] [id number] [place] [address] Mar, [facility] [place] [facility] [address] [id number] [place] [address] Jan, [facility] [place] [facility] [address] [id number] [place] [address] 23 Jan, 2014 [facility] [place] [facility] [address] [id number] [place] [address] Jan, [facility] [place] [facility] [address] [id number] [place] [address] 18 Jan, 2014 [facility] [place] [facility] [address] [id number] [place] [address] 16 Jan, 2014 [facility] [place] [facility] [address] [id number] [place] [address] 16 Jan, 2014 [facility] [place] [facility] [address] [id number] [place] [address] 16 Jan, 2014 [facility] [place] [facility] [address] [id number] [place] [address] 16 Jan, 2014 [facility] [place] [facility] [address] [id number] [place] [address] Jan, [facility] [place] [facility] [address] [id number] [place] [address] Jan, [facility] [place] [facility] [address] [id number] [place] [address] Jan, [facility] [place] [facility] [address] [id number] [place] [address] 11 Jan, 2014 [facility] [place] [facility] [address] [id number] [place] [address] Jan, [facility] [place] [facility] [address] [id number] [place] [address] Jan, [facility] [place] [facility] [address] [id number] [place] [address] Jan, [facility] [place] [facility] [address] [id number] [place] [address] Jan, [facility] [place] [facility] [address] [id number] [place] [address] December, [facility] [place] [facility] [address] [id number] [place] [address] December, [facility] [place] [facility] [address] [id number] [place] [address] December, [facility] [place] [facility] [address] [id number] [place] [address] December, [facility] [place] [facility] [address] [id number] [place] [address] December, [facility] [place] [facility] [address] [id number] [place] [address] Nov, [facility] [place] [facility] [address] [id number] [place] [address] Nov, [facility] [place] [facility] [address] [id number] [place] [address] Nov, [facility] [place] [facility] [address] [id number] [place] [address] Nov, [facility] [place] [facility] [address] [id number] [place] [address] Nov, [facility] [place] [facility] [address] [id number] [place] [address] Nov, [facility] [place] [facility] [address] [id number] [place] [address] Nov, [facility] [place] [facility] [address] [id number], [place] [address] 24 Nov, 2013 [facility] [place] [facility] [address] [id number] [place] [address] Nov, [facility] [place] [facility] [address] [id number] [place] [address] Nov, [facility] [place] [facility] [address] [facility] [id number] [place] [address] Oct, [facility] [place] [facility] [address] [id number] [place] [address] Oct, [facility] [place] [facility] [address] [id number] [place] [address] Oct, [facility] [place] [facility] [address] [id number] [place] [address] Oct, [facility] [place] [facility] [address] [facility] [id number] [place] [address] Oct, [facility] [place] [facility] [address] [id number] [place] [address] Oct, [facility] [place] [facility] [address] [id number] [place] [address] Oct, [facility] [place] [facility] [address] [facility] [id number] [place] [address] Oct, [facility] [place] [facility] [address] [id number] [place] [address] Oct, [facility] [place] [facility] [address] [id number] [place] [address] Sep, [facility] [place] [facility] [address] [id number] [place] [address] Sep, [facility] [place] [facility] [address] [id number] [place] [address] Sep, [facility] [place] [facility] [address] [facility] [id number] [place] [address] Sep, [facility] [place] [facility] [address] [id number] [place] [address] Sep, [facility] [place] [facility] [address] [id number] [place] [address] Sep, [facility] [place] [facility] [address] [id number] [place] [address] Sep, [facility] [place] [facility] [address] [id number] [place] [address] Aug, [facility] [place] [facility] [address] [id number] [place] [address] Aug, [facility] [place] [facility] [address] [id number] [place] [address] Aug, [facility] [place] [facility] [address] [id number] [place] [address] Aug, [facility] [place] [facility] [address] [id number] [place] [address] Aug, [facility] [place] [facility] [address] [id number] [place] [address] Aug, [facility] [place] [facility] [address] [id number] [place] [address] Aug, [facility] [place] [facility] [address] [id number] [place] [address] Aug, [facility] [place] [facility] [address] [id number], [place] [address] Jul, [facility] [place] [facility] [address] [id number] [place] [address] Jul, [facility] [place] [facility] [address] [id number] [place] [address] Jul, [facility] [place] [facility] [address] [id number], [place] [address] Jul, [facility] [place] [facility] [address] [id number], [place] [address] Jun, [facility] [place] [facility] [address] [id number] [place] [address] Jun, [facility] [place] [facility] [address] [id number] [place] [address] Jun, [facility] [place] [facility] [address] [id number] [place] [address] May, [facility] [place] [facility] [address] [id number] [place] [address] May, [facility] [place] [facility] [address] [id number] [place] [address] May, [facility] [place] [facility] [address] [id number] [place] [address] May, [facility] [place] [facility] [address] [id number] [place] [address] May, [facility] [place] [facility] [address] [id number] [place] [address] May, [facility] [place] [facility] [address] [facility] [id number] [place] [address] May, [facility] [place] [facility] [address] [facility] [id number] [place] [address] Apr, [facility] [place] [facility] [address] [id number], [place] [address] 17 Apr, 2013 [facility] [place] [facility] [address] [id number], [place] [address] 12 Apr, 2013 [facility] [place] [facility] [address] [id number] [place] [address] 11 Apr, 2013 [facility] [place] [facility] [address] [facility] [id number] [place] [address] 05 Apr, 2013 [facility] [place] [facility] [address] [facility] [id number] [place] [address] Mar, [facility] [place] [facility] [address] [id number] [place] [address] Mar, [facility] [place] [facility] [address] [id number] [place] [address] Mar, [facility] [place] [facility] [address] [id number] [place] [address] Mar, [facility] [place] [facility] [address] [id number] [place] [address] Feb, [facility] [place] [facility] [address] [id number] [place] [address] Feb, [facility] [place] [facility] [address] [id number] [place] [address] Feb, [facility] [place] [facility] [address] [id number] [place] [address] Feb, [facility] [place] [facility] [address] [id number] [place] [address] Feb, [facility] [place] [facility] [address] [id number] [place] [address] Feb, [facility] [place] [facility] [address] [id number] [place] [address] Feb, [facility] [place] [facility] [address] [id number] [place] [address] Feb, [facility] [place] [facility] [address] [id number] [place] [address] Jan, [facility] [place] [facility] [address] [id number] [place] [address] Jan, [facility] [place] [facility] [address] [id number] [place] [address] Jan, [facility] [place] [facility] [address] [id number] [place] [address] Jan, [facility] [place] [facility] [address] [id number] [place] [address] Jan, [facility] [address] [id number] [place] [address] Jan, [facility] [place] [facility] [address] [id number] [place] [address] Jan, [facility] [place] [facility] [address] [id number] [place] [address] December, [facility] [place] [facility] [address] [id number] [place] [address] December, [facility] [address] [id number] [place] [address] 30 Nov, 2012 [facility] [place] [facility] [address] [id number] [place] [address] Nov, [facility] [place] [facility] [address] [id number] [place] [address] Nov, [facility] [place] [facility] [address] [id number] [place] [address] Nov, [facility] [place] [facility] [address] [id number] [place] [address] 24 Nov, 2012 [facility] [place] [facility] [address] [id number] [place] [address] Nov, [facility] [place] [facility] [address] [id number] [place] [address] Nov, [facility] [place] [facility] [address] [id number], [place] [address] 15 Nov, 2012 [facility] [place] [facility] [address] [id number] [place] [address] 11 Nov, 2012 [facility] [place] [facility] [address] [id number] [place] [address] 10 Nov, 2012 [facility] [place] [facility] [address] [id number] [place] [address] 08 Nov, 2012 [facility] [place] [facility] [address] [id number] [place] [address] 05 Nov, 2012 [facility] [address] [id number] [place] [address] Nov, [facility] [place] [facility] [address] [id number] [place] [address] Nov, [facility] [address] [id number] [place] [address] Oct, [facility] [place] [facility] [address] [id number] [place] [address] Oct, [facility] [address] [id number] [place] [address] Oct, [facility] [address] [id number] [place] [address] Oct, [facility] [address] [id number] [place] [address] Oct, [facility] [address] [id number] [place] [address] Oct, [facility] [address] [id number] [place] [address] Oct, [facility] [address] [id number] [place] [address] Oct, [facility] [address] [id number] [place] [address] Oct, [facility] [place] [facility] [address] [id number] [place] [address] Sep, [facility] [place] [facility] [address] [id number] [place] [address] Aug, [facility] [place] [facility] [address] [id number] [place] [address] Aug, [facility] [place] [facility] [address] [id number] [place] [address] Aug, [facility] [place] [facility] [address] [id number] [place] [address] Aug, [facility] [place] [facility] [address] [id number] [place] [address] 31 Jul, 2012 [facility] [place] [facility] [address] [id number] [place] [address] 31 Jul, 2012 [facility] [place] [facility] [address] [id number] [place] [address] Jul, [facility] [address] [id number] [place] [address] 19 Jul, 2012 [facility] [place] [facility] [address] [id number] [place] [address] Jul, [facility] [address] [id number] [place] [address] 15 Jul, 2012 [facility] [place] [facility] [address] [id number] [place] [address] 15 Jul, 2012 [facility] [place] [facility] [address] [id number] [place] [address] 14 Jul, 2012 [facility] [place] [facility] [address] [id number] [place] [address] 14 Jul, 2012 [facility] [place] [facility] [address] [id number] [place] [address] May, [facility] [place] [facility] [address] [id number] [place] [address] 22 May, 2012 [facility] [place] [facility] [address] [id number] [place] [address] 16 May, 2012 [facility] [place] [facility] [address] [id number] [place] [address] 16 May, 2012 [facility] [place] [facility] [address] [id number] [place] [address] 12 May, 2012 [facility] [place] [facility] [address] [id number] [place] [address] May, [facility] [place] [facility] [address] [id number] [place] [address] 27 Apr, 2012 [facility] [place] [facility] [address] [id number] [place] [address] 27 Apr, 2012 [facility] [place] [facility] [address] [id number] [place] [address] 24 Apr, 2012 [facility] [place] [facility] [address] [id number] [place] [address] 18 Apr, 2012 [facility] [place] [facility] [address] [id number] [place] [address] 14 Apr, 2012 [facility] [place] [facility] [address] [id number] [place] [address] 12 Apr, 2012 [facility] [place] [facility] [address] [id number] [place] [address] Mar, [facility] [place] [facility] [address] [id number] [place] [address] Feb, [facility] [place] [facility] [address] [id number] [place] [address] Feb, [facility] [place] [facility] [address] [id number] [place] [address] Feb, [facility] [place] [facility] [address] [id number] [place] [address] Jan, [facility] [place] [facility] [address] [id number] [place] [address] December, [facility] [place] [facility] [address] [id number] [place] [address] December, [facility] [place] [facility] [address] [id number] [place] [address] December, [facility] [place] [facility] [address] [id number] [place] [address] December, [facility] [place] [facility] [address] [id number] [place] [address] December, [facility] [address] [id number] [place] [address] December, [facility] [address] [id number] [place] [address] Nov, [facility] [address] [id number] [place] [address] Nov, [facility] [address] [id number] [place] [address] 17 Nov, 2011 [facility] [address] [id number] [place] [address] Nov, [facility] [address] [id number] [place] [address] 16 Nov, 2011 [facility] [address] [id number] [place] [address] 13 Nov, 2011 [facility] [address] [id number] [place] [address] 12 Nov, 2011 [facility] [address] [id number] [place] [address] Nov, [facility] [address] [id number] [place] [address] 05 Nov, 2011 [facility] [address] [id number] [place] [address] 04 Nov, 2011 [facility] [address] [id number] [place] [address] 30 Oct, 2011 [facility] [place] [facility] [address] [id number] [place] [address] 29 Oct, 2011 [facility] [address] [id number] [place] [address] 28 Oct, 2011 [facility] [address] [id number] [place] [address] Oct, [facility] [place] [facility] [address] [id number] [place] [address] 26 Oct, 2011 [facility] [place] [facility] [address] [id number] [place] [address] 23 Oct, 2011 [facility] [place] [facility] [address] [id number] [place] [address] 21 Oct, 2011 [facility] [place] [facility] [address] [id number] [place] [address] 19 Oct, 2011 [facility] [place] [facility] [address] [id number] [place] [address] 08 Oct, 2011 [facility] [place] [facility] [address] [id number] [place] [address] 07 Oct, 2011 [facility] [place] [facility] [address] [id number] [place] [address] 06 Oct, 2011 [facility] [place] [facility] [address] [id number] [place] [address] 05 Oct, 2011 [facility] [place] [facility] [address] [id number] [place] [address] 16 Sep, 2011 [facility] [place] [facility] [address] [id number] [place] [address] 14 Sep, 2011 [facility] [place] [facility] [address] [id number] [place] [address] 12 Sep, 2011 [facility] [place] [facility] [address] [id number] [place] [address] 10 Sep, 2011 [facility] [place] [facility] [address] [id number] [place] [address] 06 Sep, 2011 [facility] [place] [facility] [address] [id number] [place] [address] 06 Sep, 2011 [facility] [place] [facility] [address] [facility] [id number] [place] [address] 06 Sep, 2011 [facility] [place] [facility] [address] [id number] [place] [address] 06 Sep, 2011 [facility] [address] [id number] [place] [address] Sep, [facility] [address] [id number] [place] [address] 30 Aug, 2011 [facility] [address] [id number] [place] [address] Aug, [facility] [address] [id number] [place] [address] Aug, [facility] [address] [id number] [place] [address] Aug, [facility] [address] [id number] [place] [address] Aug, [facility] [address] [id number] [place] [address] Aug, [facility] [address] [id number] [place] [address] Aug, [facility] [address] [id number] [place] [address] [address] [facility] [address] [id number] [place] [address] 16 Jul, 2011 [facility] [address] [id number] [place] [address] 16 Jul, 2011 [facility] [address] [id number] [place] [address] 14 Jul, 2011 [facility] [place] [facility] [address] [id number] [place] [address] 30 Jun, 2011 [facility] [address] [id number] [place] [address] Jun, [facility] [address] [id number] [place] [address] May, [facility] [address] [facility] [id number] [place] [address] Mar, [facility] [address] [facility] [id number], [place] [address] Jan, [facility] [address] [facility] [id number] [place] [address] May, IMMUNIZATIONS No Known Immunizations SOCIAL HISTORY Never Assessed REASON FOR VISIT [facility] [place] PLAN OF CARE [...]
--- OUTSIDE RECORDS SUMMARY | 2019-03-23 07:21 | XMS REPORT ---
Author Author Migration, Doctor Organization [facility] Address Unknown Phone Unavailable Care Team Providers Care Child Care Supervisor Name Role Phone Migration, Doctor Unavailable Unavailable PROBLEMS Type Condition ICD9-CM Code [id number] Code Onset Dates Condition Status SNOMED Code Problem Other postablative hypothyroidism 244.1 Active [id number] Problem Major depressive disorder, recurrent episode, severe, without mention of psychotic behavior 296.33 Active [id number] ALLERGIES No Information ENCOUNTERS Encounter Location Date Diagnosis [place] [id number] [place] [address] Sep, Unspecified mood [affective] disorder [place] [id number] [place] [address] Aug, Unspecified mood [affective] disorder [place] [id number] [place] [address] Jul, Unspecified mood [affective] disorder 9 [place] [id number] [place] [address] Jun, Unspecified mood [affective] disorder [place] [id number] [place] [address] Mar, Affective disorder 296.90 [place] [id number] [place] [address] Mar, [place] [id number] [place] [address] Feb, Nexplanon removal V25.43 and Initiation of OCP (BCP) V25.01 [place] [id number] [place] [address] Feb, Episodic mood disorder 296.90 [place] [id number] [place] [address] [place] [address] Feb, [facility] [address], [place] [address] Feb, Routine gynecological examination V72.31 ; Pap test, as part of routine gynecological examination V76.2 ; Breast cancer screening V76.10 ; Nexplanon in place V45.52 and Rash 782.1 [facility] [address], [place] [address] Jan, Episodic mood disorder 296.90 [facility] [address], [place] [address] Jan, [facility] [address], [place] [address] December, Episodic mood disorder 296.90 [facility] [address], [place] [address] December, [facility] [address], [place] [address] December, [facility] [address], [place] [address] December, [facility] [address], [place] [address] Nov, [facility] [address], [place] [address] Nov, [facility] [address], [place] [address] Nov, [facility] [address], [place] [address] Oct, [facility] [address], [place] [address] Oct, [facility] [id number] [address] Oct, [facility] [id number] [place] [address] Oct, [facility] [place] [facility] [address] [id number] [place] [address] Oct, [facility] [place] [facility] [address] [id number] [place] [address] Oct, [facility] [place] [facility] [address] [id number] [place] [address] Sep, 2014 [facility] [place] [facility] [address] [id number] [place] [address] Sep, 2014 [facility] [place] [facility] [address] [id number] [place] [address] Sep, 2014 [facility] [place] [facility] [address] [id number] [place] [address] Sep, 2014 [facility] [place] [facility] [address] [id number] [place] [address] Sep, [facility] [place] [facility] [address] [id number] [place] [address] Sep, [facility] [place] [facility] [address] [id number] [place] [address] Aug, [facility] [place] [facility] [address] [id number] [place] [address] Aug, [facility] [place] [facility] [address] [id number] [place] [address] Aug, [facility] [place] [facility] [address] [id number] [place] [address] Aug, [facility] [place] [facility] [address] [id number] [place] [address] Aug, [facility] [place] [facility] [address] [id number] [place] [address] Aug, [facility] [place] [facility] [address] [id number] [place] [address] Aug, [facility] [place] [facility] [address] [id number] [place] [address] 14 Aug, 2014 [facility] [place] [facility] [address] [id number] [place] [address] Aug, [facility] [place] [facility] [address] [id number] [place] [address] Aug, [facility] [place] [facility] [address] [id number] [place] [address] Aug, [facility] [place] [facility] [address] [id number] [place] [address] Aug, [facility] [place] [facility] [address] [id number] [place] [address] Aug, [facility] [place] [facility] [address] [id number] [place] [address] Aug, [facility] [place] [facility] [address] [id number] [place] [address] Aug, [facility] [place] [facility] [address] [id number] [place] [address] Aug, [facility] [place] [facility] [address] [id number] [place] [address] Jul, [facility] [place] [facility] [address] [id number], [place] [address] 15 Jul, 2014 [facility] [place] [facility] [address] [id number], [place] [address] 15 Jul, 2014 [facility] [place] [facility] [address] [id number] [place] [address] Jul, [facility] [place] [facility] [address] [id number] [place] [address] Jul, [facility] [place] [facility] [address] [id number] [place] [address] Jul, [facility] [place] [facility] [address] [id number] [place] [address] 11 Jul, 2014 [facility] [place] [facility] [address] [id number] [place] [address] Jul, [facility] [place] [facility] [address] [id number] [place] [address] Jul, [facility] [place] [facility] [address] [id number] [place] [address] 05 Jul, 2014 [facility] [place] [facility] [address] [id number] [place] [address] 05 Jul, 2014 [facility] [place] [facility] [address] [id number] [place] [address] Jul, [facility] [place] [facility] [address] [id number] [place] [address] Jul, [facility] [place] [facility] [address] [id number] [place] [address] Jun, [facility] [place] [facility] [address] [id number] [place] [address] Jun, [facility] [place] [facility] [address] [id number] [place] [address] Jun, [facility] [place] [facility] [address] [facility] [id number] [place] [address] Jun, [facility] [place] [facility] [address] [id number] [place] [address] Jun, [facility] [place] [facility] [address] [id number] [place] [address] Jun, [facility] [place] [facility] [address] [id number] [place] [address] Jun, [facility] [place] [facility] [address] [id number] [place] [address] Jun, [facility] [place] [facility] [address] [id number], [place] [address] Jun, [facility] [place] [facility] [address] [id number] [place] [address] Jun, [facility] [place] [facility] [address] [id number] [place] [address] Jun, [facility] [place] [facility] [address] [id number] [place] [address] Jun, [facility] [place] [facility] [address] [id number] [place] [address] Jun, [facility] [place] [facility] [address] [id number] [place] [address] Jun, [facility] [place] [facility] [address] [id number] [place] [address] May, [facility] [place] [facility] [address] [id number] [place] [address] May, [facility] [place] [facility] [address] [id number] [place] [address] May, [facility] [place] [facility] [address] [id number] [place] [address] May, [facility] [place] [facility] [address] [id number] [place] [address] May, [facility] [place] [facility] [address] [id number] [place] [address] May, [facility] [place] [facility] [address] [id number] [place] [address] May, [facility] [place] [facility] [address] [id number] [place] [address] May, [facility] [place] [facility] [address] [id number] [place] [address] May, [facility] [place] [facility] [address] [id number] [place] [address] May, [facility] [place] [facility] [address] [id number] [place] [address] 30 Sep, 2013 [facility] [place] [facility] [address] [id number] [place] [address] 30 Sep, 2013 [facility] [place] [facility] [address] [id number] [place] [address] 19 Sep, 2013 [facility] [place] [facility] [address] [id number] [place] [address] 19 Sep, 2013 [facility] [place] [facility] [address] [id number] [place] [address] 18 Sep, 2013 [facility] [place] [facility] [address] [id number] [place] [address] 18 Sep, 2013 [facility] [place] [facility] [address] [id number] [place] [address] 18 Sep, 2013 [facility] [place] [facility] [address] [id number] [place] [address] 18 Sep, 2013 [facility] [place] [facility] [address] [id number] [place] [address] 16 Sep, 2013 [facility] [place] [facility] [address] [id number] [place] [address] 16 Sep, 2013 [facility] [place] [facility] [address] [id number] [place] [address] 08 Sep, 2013 [facility] [place] [facility] [address] [id number] [place] [address] 08 Sep, 2013 [facility] [place] [facility] [address] [id number] [place] [address] 08 Sep, 2013 [facility] [place] [facility] [address] [id number] [place] [address] 08 Sep, 2013 [facility] [place] [facility] [address] [id number] [place] [address] 04 Sep, 2013 [facility] [place] [facility] [address] [id number] [place] [address] 04 Sep, 2013 [facility] [place] [facility] [address] [id number] [place] [address] Mar, [facility] [place] [facility] [address] [id number] [place] [address] Mar, [facility] [place] [facility] [address] [id number] [place] [address] Mar, [facility] [place] [facility] [address] [id number] [place] [address] Jan, [facility] [place] [facility] [address] [id number] [place] [address] 23 Jan, 2014 [facility] [place] [facility] [address] [id number] [place] [address] Jan, [facility] [place] [facility] [address] [id number] [place] [address] 18 Jan, 2014 [facility] [place] [facility] [address] [id number] [place] [address] 16 Jan, 2014 [facility] [place] [facility] [address] [id number] [place] [address] 16 Jan, 2014 [facility] [place] [facility] [address] [id number] [place] [address] 16 Jan, 2014 [facility] [place] [facility] [address] [id number] [place] [address] 16 Jan, 2014 [facility] [place] [facility] [address] [id number] [place] [address] Jan, [facility] [place] [facility] [address] [id number] [place] [address] Jan, [facility] [place] [facility] [address] [id number] [place] [address] Jan, [facility] [place] [facility] [address] [id number] [place] [address] 11 Jan, 2014 [facility] [place] [facility] [address] [id number] [place] [address] Jan, [facility] [place] [facility] [address] [id number] [place] [address] Jan, [facility] [place] [facility] [address] [id number] [place] [address] Jan, [facility] [place] [facility] [address] [id number] [place] [address] Jan, [facility] [place] [facility] [address] [id number] [place] [address] December, [facility] [place] [facility] [address] [id number] [place] [address] December, [facility] [place] [facility] [address] [id number] [place] [address] December, [facility] [place] [facility] [address] [id number] [place] [address] December, [facility] [place] [facility] [address] [id number] [place] [address] December, [facility] [place] [facility] [address] [id number] [place] [address] Nov, [facility] [place] [facility] [address] [id number] [place] [address] Nov, [facility] [place] [facility] [address] [id number] [place] [address] Nov, [facility] [place] [facility] [address] [id number] [place] [address] Nov, [facility] [place] [facility] [address] [id number] [place] [address] Nov, [facility] [place] [facility] [address] [id number] [place] [address] Nov, [facility] [place] [facility] [address] [id number] [place] [address] Nov, [facility] [place] [facility] [address] [id number], [place] [address] 24 Nov, 2013 [facility] [place] [facility] [address] [id number] [place] [address] Nov, [facility] [place] [facility] [address] [id number] [place] [address] Nov, [facility] [place] [facility] [address] [facility] [id number] [place] [address] Oct, [facility] [place] [facility] [address] [id number] [place] [address] Oct, [facility] [place] [facility] [address] [id number] [place] [address] Oct, [facility] [place] [facility] [address] [id number] [place] [address] Oct, [facility] [place] [facility] [address] [facility] [id number] [place] [address] Oct, [facility] [place] [facility] [address] [id number] [place] [address] Oct, [facility] [place] [facility] [address] [id number] [place] [address] Oct, [facility] [place] [facility] [address] [facility] [id number] [place] [address] Oct, [facility] [place] [facility] [address] [id number] [place] [address] Oct, [facility] [place] [facility] [address] [id number] [place] [address] Sep, [facility] [place] [facility] [address] [id number] [place] [address] Sep, [facility] [place] [facility] [address] [id number] [place] [address] Sep, [facility] [place] [facility] [address] [facility] [id number] [place] [address] Sep, [facility] [place] [facility] [address] [id number] [place] [address] Sep, [facility] [place] [facility] [address] [id number] [place] [address] Sep, [facility] [place] [facility] [address] [id number] [place] [address] Sep, [facility] [place] [facility] [address] [id number] [place] [address] Aug, [facility] [place] [facility] [address] [id number] [place] [address] Aug, [facility] [place] [facility] [address] [id number] [place] [address] Aug, [facility] [place] [facility] [address] [id number] [place] [address] Aug, [facility] [place] [facility] [address] [id number] [place] [address] Aug, [facility] [place] [facility] [address] [id number] [place] [address] Aug, [facility] [place] [facility] [address] [id number] [place] [address] Aug, [facility] [place] [facility] [address] [id number] [place] [address] Aug, [facility] [place] [facility] [address] [id number], [place] [address] Jul, [facility] [place] [facility] [address] [id number] [place] [address] Jul, [facility] [place] [facility] [address] [id number] [place] [address] Jul, [facility] [place] [facility] [address] [id number], [place] [address] Jul, [facility] [place] [facility] [address] [id number], [place] [address] Jun, [facility] [place] [facility] [address] [id number] [place] [address] Jun, [facility] [place] [facility] [address] [id number] [place] [address] Jun, [facility] [place] [facility] [address] [id number] [place] [address] May, [facility] [place] [facility] [address] [id number] [place] [address] May, [facility] [place] [facility] [address] [id number] [place] [address] May, [facility] [place] [facility] [address] [id number] [place] [address] May, [facility] [place] [facility] [address] [id number] [place] [address] May, [facility] [place] [facility] [address] [id number] [place] [address] May, [facility] [place] [facility] [address] [facility] [id number] [place] [address] May, [facility] [place] [facility] [address] [facility] [id number] [place] [address] Apr, [facility] [place] [facility] [address] [id number], [place] [address] 17 Apr, 2013 [facility] [place] [facility] [address] [id number], [place] [address] 12 Apr, 2013 [facility] [place] [facility] [address] [id number] [place] [address] 11 Apr, 2013 [facility] [place] [facility] [address] [facility] [id number] [place] [address] 05 Apr, 2013 [facility] [place] [facility] [address] [facility] [id number] [place] [address] Mar, [facility] [place] [facility] [address] [id number] [place] [address] Mar, [facility] [place] [facility] [address] [id number] [place] [address] Mar, [facility] [place] [facility] [address] [id number] [place] [address] Mar, [facility] [place] [facility] [address] [id number] [place] [address] Feb, [facility] [place] [facility] [address] [id number] [place] [address] Feb, [facility] [place] [facility] [address] [id number] [place] [address] Feb, [facility] [place] [facility] [address] [id number] [place] [address] Feb, [facility] [place] [facility] [address] [id number] [place] [address] Feb, [facility] [place] [facility] [address] [id number] [place] [address] Feb, [facility] [place] [facility] [address] [id number] [place] [address] Feb, [facility] [place] [facility] [address] [id number] [place] [address] Feb, [facility] [place] [facility] [address] [id number] [place] [address] Jan, [facility] [place] [facility] [address] [id number] [place] [address] Jan, [facility] [place] [facility] [address] [id number] [place] [address] Jan, [facility] [place] [facility] [address] [id number] [place] [address] Jan, [facility] [place] [facility] [address] [id number] [place] [address] Jan, [facility] [address] [id number] [place] [address] Jan, [facility] [place] [facility] [address] [id number] [place] [address] Jan, [facility] [place] [facility] [address] [id number] [place] [address] December, [facility] [place] [facility] [address] [id number] [place] [address] December, [facility] [address] [id number] [place] [address] 30 Nov, 2012 [facility] [place] [facility] [address] [id number] [place] [address] Nov, [facility] [place] [facility] [address] [id number] [place] [address] Nov, [facility] [place] [facility] [address] [id number] [place] [address] Nov, [facility] [place] [facility] [address] [id number] [place] [address] 24 Nov, 2012 [facility] [place] [facility] [address] [id number] [place] [address] Nov, [facility] [place] [facility] [address] [id number] [place] [address] Nov, [facility] [place] [facility] [address] [id number], [place] [address] 15 Nov, 2012 [facility] [place] [facility] [address] [id number] [place] [address] 11 Nov, 2012 [facility] [place] [facility] [address] [id number] [place] [address] 10 Nov, 2012 [facility] [place] [facility] [address] [id number] [place] [address] 08 Nov, 2012 [facility] [place] [facility] [address] [id number] [place] [address] 05 Nov, 2012 [facility] [address] [id number] [place] [address] Nov, [facility] [place] [facility] [address] [id number] [place] [address] Nov, [facility] [address] [id number] [place] [address] Oct, [facility] [place] [facility] [address] [id number] [place] [address] Oct, [facility] [address] [id number] [place] [address] Oct, [facility] [address] [id number] [place] [address] Oct, [facility] [address] [id number] [place] [address] Oct, [facility] [address] [id number] [place] [address] Oct, [facility] [address] [id number] [place] [address] Oct, [facility] [address] [id number] [place] [address] Oct, [facility] [address] [id number] [place] [address] Oct, [facility] [place] [facility] [address] [id number] [place] [address] Sep, [facility] [place] [facility] [address] [id number] [place] [address] Aug, [facility] [place] [facility] [address] [id number] [place] [address] Aug, [facility] [place] [facility] [address] [id number] [place] [address] Aug, [facility] [place] [facility] [address] [id number] [place] [address] Aug, [facility] [place] [facility] [address] [id number] [place] [address] 31 Jul, 2012 [facility] [place] [facility] [address] [id number] [place] [address] 31 Jul, 2012 [facility] [place] [facility] [address] [id number] [place] [address] Jul, [facility] [address] [id number] [place] [address] 19 Jul, 2012 [facility] [place] [facility] [address] [id number] [place] [address] Jul, [facility] [address] [id number] [place] [address] 15 Jul, 2012 [facility] [place] [facility] [address] [id number] [place] [address] 15 Jul, 2012 [facility] [place] [facility] [address] [id number] [place] [address] 14 Jul, 2012 [facility] [place] [facility] [address] [id number] [place] [address] 14 Jul, 2012 [facility] [place] [facility] [address] [id number] [place] [address] May, [facility] [place] [facility] [address] [id number] [place] [address] 22 May, 2012 [facility] [place] [facility] [address] [id number] [place] [address] 16 May, 2012 [facility] [place] [facility] [address] [id number] [place] [address] 16 May, 2012 [facility] [place] [facility] [address] [id number] [place] [address] 12 May, 2012 [facility] [place] [facility] [address] [id number] [place] [address] May, [facility] [place] [facility] [address] [id number] [place] [address] 27 Apr, 2012 [facility] [place] [facility] [address] [id number] [place] [address] 27 Apr, 2012 [facility] [place] [facility] [address] [id number] [place] [address] 24 Apr, 2012 [facility] [place] [facility] [address] [id number] [place] [address] 18 Apr, 2012 [facility] [place] [facility] [address] [id number] [place] [address] 14 Apr, 2012 [facility] [place] [facility] [address] [id number] [place] [address] 12 Apr, 2012 [facility] [place] [facility] [address] [id number] [place] [address] Mar, [facility] [place] [facility] [address] [id number] [place] [address] Feb, [facility] [place] [facility] [address] [id number] [place] [address] Feb, [facility] [place] [facility] [address] [id number] [place] [address] Feb, [facility] [place] [facility] [address] [id number] [place] [address] Jan, [facility] [place] [facility] [address] [id number] [place] [address] December, [facility] [place] [facility] [address] [id number] [place] [address] December, [facility] [place] [facility] [address] [id number] [place] [address] December, [facility] [place] [facility] [address] [id number] [place] [address] December, [facility] [facility] [address] [id number] [place] [address] December, [facility] [address] [id number] [place] [address] December, [facility] [address] [id number] [place] [address] Nov, [facility] [address] [id number] [place] [address] Nov, [facility] [address] [id number] [place] [address] 17 Nov, 2011 [facility] [address] [id number] [place] [address] Nov, [facility] [address] [id number] [place] [address] 16 Nov, 2011 [facility] [address] [id number] [place] [address] 13 Nov, 2011 [facility] [address] [id number] [place] [address] 12 Nov, 2011 [facility] [address] [id number] [place] [address] Nov, [facility] [address] [id number] [place] [address] 05 Nov, 2011 [facility] [address] [id number] [place] [address] 04 Nov, 2011 [facility] [address] [id number] [place] [address] 30 Oct, 2011 [facility] [place] [facility] [address] [id number] [place] [address] 29 Oct, 2011 [facility] [address] [id number] [place] [address] 28 Oct, 2011 [facility] [address] [id number] [place] [address] Oct, [facility] [place] [facility] [address] [id number] [place] [address] 26 Oct, 2011 [facility] [place] [facility] [address] [id number] [place] [address] 23 Oct, 2011 [facility] [place] [facility] [address] [id number] [place] [address] 21 Oct, 2011 [facility] [place] [facility] [address] [id number] [place] [address] 19 Oct, 2011 [facility] [place] [facility] [address] [id number] [place] [address] 08 Oct, 2011 [facility] [place] [facility] [address] [id number] [place] [address] 07 Oct, 2011 [facility] [place] [facility] [address] [id number] [place] [address] 06 Oct, 2011 [facility] [place] [facility] [address] [id number] [place] [address] 05 Oct, 2011 [facility] [place] [facility] [address] [id number] [place] [address] 16 Sep, 2011 [facility] [place] [facility] [address] [id number] [place] [address] 14 Sep, 2011 [facility] [place] [facility] [address] [id number] [place] [address] 12 Sep, 2011 [facility] [place] [facility] [address] [id number] [place] [address] 10 Sep, 2011 [facility] [place] [facility] [address] [id number] [place] [address] 06 Sep, 2011 [facility] [place] [facility] [address] [id number] [place] [address] 06 Sep, 2011 [facility] [place] [facility] [address] [facility] [id number] [place] [address] 06 Sep, 2011 [facility] [place] [facility] [address] [id number] [place] [address] 06 Sep, 2011 [facility] [address] [id number] [place] [address] Sep, [facility] [address] [id number] [place] [address] 30 Aug, 2011 [facility] [address] [id number] [place] [address] Aug, [facility] [address] [id number] [place] [address] Aug, [facility] [address] [id number] [place] [address] Aug, [facility] [address] [id number] [place] [address] Aug, [facility] [address] [id number] [place] [address] Aug, [facility] [address] [id number] [place] [address] Aug, [facility] [address] [id number] [place] [address] 24 Jul, 2011 [facility] [address] [id number] [place] [address] 16 Jul, 2011 [facility] [address] [id number] [place] [address] 16 Jul, 2011 [facility] [address] [id number] [place] [address] 14 Jul, 2011 [facility] [facility] [address] [id number] [place] [address] 30 Jun, 2011 [facility] [address] [id number] [place] [address] Jun, [facility] [address] [id number] [place] [address] May, [facility] [address] [facility] [id number] [place] [address] Mar, [facility] [address] [facility] [id number], [place] [address] Jan, [facility] [address] [facility] [id number] [place] [address] May, IMMUNIZATIONS No Known Immunizations SOCIAL HISTORY Never Assessed REASON FOR VISIT [facility] [place] PLAN OF CARE VITAL [...]
--- OUTSIDE RECORDS SUMMARY | 2019-03-23 07:21 | XMS REPORT ---
Author Author Migration, Doctor Organization [facility] Address Unknown Phone Unavailable Care Team Providers Care Scroll Assembler Name Role Phone Migration, Doctor Unavailable Unavailable PROBLEMS Type Condition ICD9-CM Code [id number] Code Onset Dates Condition Status SNOMED Code Problem Other postablative hypothyroidism 244.1 Active [id number] Problem Major depressive disorder, recurrent episode, severe, without mention of psychotic behavior 296.33 Active [id number] ALLERGIES No Information ENCOUNTERS Encounter Location Date Diagnosis [place] [id number] [place] [address] Sep, Unspecified mood [affective] disorder [place] [id number] [place] [address] Aug, Unspecified mood [affective] disorder [place] [id number] [place] [address] Jul, Unspecified mood [affective] disorder 9 [place] [id number] [place] [address] Jun, Unspecified mood [affective] disorder [place] [id number] [place] [address] Mar, Affective disorder 296.90 [place] [id number] [place] [address] Mar, [place] [id number] [place] [address] Feb, Nexplanon removal V25.43 and Initiation of OCP (BCP) V25.01 [place] [id number] [place] [address] Feb, Episodic mood disorder 296.90 [place] [id number] [place] [address] [place] [address] Feb, [facility] [id number] [address] Feb, Routine gynecological examination V72.31 ; Pap test, as part of routine gynecological examination V76.2 ; Breast cancer screening V76.10 ; Nexplanon in place V45.52 and Rash 782.1 [facility] [id number] [address] Jan, Episodic mood disorder 296.90 [facility] [id number] [address] Jan, [facility] [id number] [address] December, Episodic mood disorder 296.90 [facility] [id number] [address] December, [facility] [id number] [address] December, [facility] [id number] [address] December, [facility] [id number] [address] Nov, [facility] [id number] [address] Nov, [facility] [id number] [address] Nov, [facility] [id number] [address] Oct, [facility] [id number] [address] Oct, [facility] [id number] [address] Oct, [facility] [id number] [place] [address] Oct, [facility] [place] [facility] [address] [id number] [place] [address] Oct, [facility] [place] [facility] [address] [id number] [place] [address] Oct, [facility] [place] [facility] [address] [id number] [place] [address] Sep, 2014 [facility] [place] [facility] [address] [id number] [place] [address] Sep, 2014 [facility] [place] [facility] [address] [id number] [place] [address] Sep, 2014 [facility] [place] [facility] [address] [id number] [place] [address] Sep, 2014 [facility] [place] [facility] [address] [id number] [place] [address] Sep, [facility] [place] [facility] [address] [id number] [place] [address] Sep, [facility] [place] [facility] [address] [id number] [place] [address] Aug, [facility] [place] [facility] [address] [id number] [place] [address] Aug, [facility] [place] [facility] [address] [id number] [place] [address] Aug, [facility] [place] [facility] [address] [id number] [place] [address] Aug, [facility] [place] [facility] [address] [id number] [place] [address] Aug, [facility] [place] [facility] [address] [id number] [place] [address] Aug, [facility] [place] [facility] [address] [id number] [place] [address] Aug, [facility] [place] [facility] [address] [id number] [place] [address] 14 Aug, 2014 [facility] [place] [facility] [address] [id number] [place] [address] Aug, [facility] [place] [facility] [address] [id number] [place] [address] Aug, [facility] [place] [facility] [address] [id number] [place] [address] Aug, [facility] [place] [facility] [address] [id number] [place] [address] Aug, [facility] [place] [facility] [address] [id number] [place] [address] Aug, [facility] [place] [facility] [address] [id number] [place] [address] Aug, [facility] [place] [facility] [address] [id number] [place] [address] Aug, [facility] [place] [facility] [address] [id number] [place] [address] Aug, [facility] [place] [facility] [address] [id number] [place] [address] Jul, [facility] [place] [facility] [address] [id number] [place] [address] 15 Jul, 2014 [facility] [place] [facility] [address] [id number] [place] [address] 15 Jul, 2014 [facility] [place] [facility] [address] [id number] [place] [address] Jul, [facility] [place] [facility] [address] [id number] [place] [address] Jul, [facility] [place] [facility] [address] [id number] [place] [address] Jul, [facility] [place] [facility] [address] [id number] [place] [address] 11 Jul, 2014 [facility] [place] [facility] [address] [id number] [place] [address] Jul, [facility] [place] [facility] [address] [id number] [place] [address] Jul, [facility] [place] [facility] [address] [id number] [place] [address] 05 Jul, 2014 [facility] [place] [facility] [address] [id number] [place] [address] 05 Jul, 2014 [facility] [place] [facility] [address] [id number] [place] [address] Jul, [facility] [place] [facility] [address] [id number] [place] [address] Jul, [facility] [place] [facility] [address] [id number] [place] [address] Jun, [facility] [place] [facility] [address] [id number] [place] [address] Jun, [facility] [place] [facility] [address] [id number] [place] [address] Jun, [facility] [place] [facility] [address] [facility] [id number] [place] [address] Jun, [facility] [place] [facility] [address] [id number] [place] [address] Jun, [facility] [place] [facility] [address] [id number] [place] [address] Jun, [facility] [place] [facility] [address] [id number] [place] [address] Jun, [facility] [place] [facility] [address] [id number] [place] [address] Jun, [facility] [place] [facility] [address] [id number] [address] Jun, [facility] [place] [facility] [address] [id number] [place] [address] Jun, [facility] [place] [facility] [address] [id number] [place] [address] Jun, [facility] [place] [facility] [address] [id number] [place] [address] Jun, [facility] [place] [facility] [address] [id number] [place] [address] Jun, [facility] [place] [facility] [address] [id number] [place] [address] Jun, [facility] [place] [facility] [address] [id number] [place] [address] May, [facility] [place] [facility] [address] [id number] [place] [address] May, [facility] [place] [facility] [address] [id number] [place] [address] May, [facility] [place] [facility] [address] [id number] [place] [address] May, [facility] [place] [facility] [address] [id number] [place] [address] May, [facility] [place] [facility] [address] [id number] [place] [address] May, [facility] [place] [facility] [address] [id number] [place] [address] May, [facility] [place] [facility] [address] [id number] [place] [address] May, [facility] [place] [facility] [address] [id number] [place] [address] May, [facility] [place] [facility] [address] [id number] [place] [address] May, [facility] [place] [facility] [address] [id number] [place] [address] 30 Sep, 2013 [facility] [place] [facility] [address] [id number] [place] [address] 30 Sep, 2013 [facility] [place] [facility] [address] [id number] [place] [address] 19 Sep, 2013 [facility] [place] [facility] [address] [id number] [place] [address] 19 Sep, 2013 [facility] [place] [facility] [address] [id number] [place] [address] 18 Sep, 2013 [facility] [place] [facility] [address] [id number] [place] [address] 18 Sep, 2013 [facility] [place] [facility] [address] [id number] [place] [address] 18 Sep, 2013 [facility] [place] [facility] [address] [id number] [place] [address] 18 Sep, 2013 [facility] [place] [facility] [address] [id number] [place] [address] 16 Sep, 2013 [facility] [place] [facility] [address] [id number] [place] [address] 16 Sep, 2013 [facility] [place] [facility] [address] [id number] [place] [address] 08 Sep, 2013 [facility] [place] [facility] [address] [id number] [place] [address] 08 Sep, 2013 [facility] [place] [facility] [address] [id number] [place] [address] 08 Sep, 2013 [facility] [place] [facility] [address] [id number] [place] [address] 08 Sep, 2013 [facility] [place] [facility] [address] [id number] [place] [address] 04 Sep, 2013 [facility] [place] [facility] [address] [id number] [place] [address] 04 Sep, 2013 [facility] [place] [facility] [address] [id number] [place] [address] Mar, [facility] [place] [facility] [address] [id number] [place] [address] Mar, [facility] [place] [facility] [address] [id number] [place] [address] Mar, [facility] [place] [facility] [address] [id number] [place] [address] Jan, [facility] [place] [facility] [address] [id number] [place] [address] 23 Jan, 2014 [facility] [place] [facility] [address] [id number] [place] [address] Jan, [facility] [place] [facility] [address] [id number] [place] [address] 18 Jan, 2014 [facility] [place] [facility] [address] [id number] [place] [address] 16 Jan, 2014 [facility] [place] [facility] [address] [id number] [place] [address] 16 Jan, 2014 [facility] [place] [facility] [address] [id number] [place] [address] 16 Jan, 2014 [facility] [place] [facility] [address] [id number] [place] [address] 16 Jan, 2014 [facility] [place] [facility] [address] [id number] [place] [address] Jan, [facility] [place] [facility] [address] [id number] [place] [address] Jan, [facility] [place] [facility] [address] [id number] [place] [address] Jan, [facility] [place] [facility] [address] [id number] [place] [address] 11 Jan, 2014 [facility] [place] [facility] [address] [id number] [place] [address] Jan, [facility] [place] [facility] [address] [id number] [place] [address] Jan, [facility] [place] [facility] [address] [id number] [place] [address] Jan, [facility] [place] [facility] [address] [id number] [place] [address] Jan, [facility] [place] [facility] [address] [id number] [place] [address] December, [facility] [place] [facility] [address] [id number] [place] [address] December, [facility] [place] [facility] [address] [id number] [place] [address] December, [facility] [place] [facility] [address] [id number] [place] [address] December, [facility] [place] [facility] [address] [id number] [place] [address] December, [facility] [place] [facility] [address] [id number] [place] [address] Nov, [facility] [place] [facility] [address] [id number] [place] [address] Nov, [facility] [place] [facility] [address] [id number] [place] [address] Nov, [facility] [place] [facility] [address] [id number] [place] [address] Nov, [facility] [place] [facility] [address] [id number] [place] [address] Nov, [facility] [place] [facility] [address] [id number] [place] [address] Nov, [facility] [place] [facility] [address] [id number] [place] [address] Nov, [facility] [place] [facility] [address] [id number] [place] [address] 24 Nov, 2013 [facility] [place] [facility] [address] [id number] [place] [address] Nov, [facility] [place] [facility] [address] [id number] [place] [address] Nov, [facility] [place] [facility] [address] [facility] [id number] [place] [address] Oct, [facility] [place] [facility] [address] [id number] [place] [address] Oct, [facility] [place] [facility] [address] [id number] [place] [address] Oct, [facility] [place] [facility] [address] [id number] [place] [address] Oct, [facility] [place] [facility] [address] [facility] [id number] [place] [address] Oct, [facility] [place] [facility] [address] [id number] [place] [address] Oct, [facility] [place] [facility] [address] [id number] [place] [address] Oct, [facility] [place] [facility] [address] [facility] [id number] [place] [address] Oct, [facility] [place] [facility] [address] [id number] [place] [address] Oct, [facility] [place] [facility] [address] [id number] [place] [address] Sep, [facility] [place] [facility] [address] [id number] [place] [address] Sep, [facility] [place] [facility] [address] [id number] [place] [address] Sep, [facility] [place] [facility] [address] [facility] [id number] [place] [address] Sep, [facility] [place] [facility] [address] [id number] [place] [address] Sep, [facility] [place] [facility] [address] [id number] [place] [address] Sep, [facility] [place] [facility] [address] [id number] [place] [address] Sep, [facility] [place] [facility] [address] [id number] [place] [address] Aug, [facility] [place] [facility] [address] [id number] [place] [address] Aug, [facility] [place] [facility] [address] [id number] [place] [address] Aug, [facility] [place] [facility] [address] [id number] [place] [address] Aug, [facility] [place] [facility] [address] [id number] [place] [address] Aug, [facility] [place] [facility] [address] [id number] [place] [address] Aug, [facility] [place] [facility] [address] [id number] [place] [address] Aug, [facility] [place] [facility] [address] [id number] [place] [address] Aug, [facility] [place] [facility] [address] [id number] [place] [address] Jul, [facility] [place] [facility] [address] [id number] [place] [address] Jul, [facility] [place] [facility] [address] [id number] [place] [address] Jul, [facility] [place] [facility] [address] [id number] [place] [address] Jul, [facility] [place] [facility] [address] [id number] [place] [address] Jun, [facility] [place] [facility] [address] [id number] [place] [address] Jun, [facility] [place] [facility] [address] [id number] [place] [address] Jun, [facility] [place] [facility] [address] [id number] [place] [address] May, [facility] [place] [facility] [address] [id number] [place] [address] May, [facility] [place] [facility] [address] [id number] [place] [address] May, [facility] [place] [facility] [address] [id number] [place] [address] May, [facility] [place] [facility] [address] [id number] [place] [address] May, [facility] [place] [facility] [address] [id number] [place] [address] May, [facility] [place] [facility] [address] [facility] [id number] [place] [address] May, [facility] [place] [facility] [address] [facility] [id number] [place] [address] Apr, [facility] [place] [facility] [address] [id number] [place] [address] 17 Apr, 2013 [facility] [place] [facility] [address] [id number] [place] [address] 12 Apr, 2013 [facility] [place] [facility] [address] [id number] [place] [address] 11 Apr, 2013 [facility] [place] [facility] [address] [facility] [id number] [place] [address] 05 Apr, 2013 [facility] [place] [facility] [address] [facility] [id number] [place] [address] Mar, [facility] [place] [facility] [address] [id number] [place] [address] Mar, [facility] [place] [facility] [address] [id number] [place] [address] Mar, [facility] [place] [facility] [address] [id number] [place] [address] Mar, [facility] [place] [facility] [address] [id number] [place] [address] Feb, [facility] [place] [facility] [address] [id number] [place] [address] Feb, [facility] [place] [facility] [address] [id number] [place] [address] Feb, [facility] [place] [facility] [address] [id number] [place] [address] Feb, [facility] [place] [facility] [address] [id number] [place] [address] Feb, [facility] [place] [facility] [address] [id number] [place] [address] Feb, [facility] [place] [facility] [address] [id number] [place] [address] Feb, [facility] [place] [facility] [address] [id number] [place] [address] Feb, [facility] [place] [facility] [address] [id number] [place] [address] Jan, [facility] [place] [facility] [address] [id number] [place] [address] Jan, [facility] [place] [facility] [address] [id number] [place] [address] Jan, [facility] [place] [facility] [address] [id number] [place] [address] Jan, [facility] [place] [facility] [address] [id number] [place] [address] Jan, [facility] [address] [id number] [place] [address] Jan, [facility] [place] [facility] [address] [id number] [place] [address] Jan, [facility] [place] [facility] [address] [id number] [place] [address] December, [facility] [place] [facility] [address] [id number] [place] [address] December, [facility] [address] [id number] [place] [address] 30 Nov, 2012 [facility] [place] [facility] [address] [id number] [place] [address] Nov, [facility] [place] [facility] [address] [id number] [place] [address] Nov, [facility] [place] [facility] [address] [id number] [place] [address] Nov, [facility] [place] [facility] [address] [id number] [place] [address] 24 Nov, 2012 [facility] [place] [facility] [address] [id number] [place] [address] Nov, [facility] [place] [facility] [address] [id number] [place] [address] Nov, [facility] [place] [facility] [address] [id number] [place] [address] 15 Nov, 2012 [facility] [place] [facility] [address] [id number] [place] [address] 11 Nov, 2012 [facility] [place] [facility] [address] [id number] [place] [address] 10 Nov, 2012 [facility] [place] [facility] [address] [id number] [place] [address] 08 Nov, 2012 [facility] [place] [facility] [address] [id number] [place] [address] 05 Nov, 2012 [facility] [address] [id number] [place] [address] Nov, [facility] [place] [facility] [address] [id number] [place] [address] Nov, [facility] [address] [id number] [place] [address] Oct, [facility] [place] [facility] [address] [id number] [place] [address] Oct, [facility] [address] [id number] [place] [address] Oct, [facility] [address] [id number] [place] [address] Oct, [facility] [address] [id number] [place] [address] Oct, [facility] [address] [id number] [place] [address] Oct, [facility] [address] [id number] [place] [address] Oct, [facility] [address] [id number] [place] [address] Oct, [facility] [address] [id number] [place] [address] Oct, [facility] [place] [facility] [address] [id number] [place] [address] Sep, [facility] [place] [facility] [address] [id number] [place] [address] Aug, [facility] [place] [facility] [address] [id number] [place] [address] Aug, [facility] [place] [facility] [address] [id number] [place] [address] Aug, [facility] [place] [facility] [address] [id number] [place] [address] Aug, [facility] [place] [facility] [address] [id number] [place] [address] 31 Jul, 2012 [facility] [place] [facility] [address] [id number] [place] [address] 31 Jul, 2012 [facility] [place] [facility] [address] [id number] [place] [address] Jul, [facility] [address] [id number] [place] [address] 19 Jul, 2012 [facility] [place] [facility] [address] [id number] [place] [address] Jul, [facility] [address] [id number] [place] [address] 15 Jul, 2012 [facility] [place] [facility] [address] [id number] [place] [address] 15 Jul, 2012 [facility] [place] [facility] [address] [id number] [place] [address] 14 Jul, 2012 [facility] [place] [facility] [address] [id number] [place] [address] 14 Jul, 2012 [facility] [place] [facility] [address] [id number] [place] [address] May, [facility] [place] [facility] [address] [id number] [place] [address] 22 May, 2012 [facility] [place] [facility] [address] [id number] [place] [address] 16 May, 2012 [facility] [place] [facility] [address] [id number] [place] [address] 16 May, 2012 [facility] [place] [facility] [address] [id number] [place] [address] 12 May, 2012 [facility] [place] [facility] [address] [id number] [place] [address] May, [facility] [place] [facility] [address] [id number] [place] [address] 27 Apr, 2012 [facility] [place] [facility] [address] [id number] [place] [address] 27 Apr, 2012 [facility] [place] [facility] [address] [id number] [place] [address] 24 Apr, 2012 [facility] [place] [facility] [address] [id number] [place] [address] 18 Apr, 2012 [facility] [place] [facility] [address] [id number] [place] [address] 14 Apr, 2012 [facility] [place] [facility] [address] [id number] [place] [address] 12 Apr, 2012 [facility] [place] [facility] [address] [id number] [place] [address] Mar, [facility] [place] [facility] [address] [id number] [place] [address] Feb, [facility] [place] [facility] [address] [id number] [place] [address] Feb, [facility] [place] [facility] [address] [id number] [place] [address] Feb, [facility] [place] [facility] [address] [id number] [place] [address] Jan, [facility] [place] [facility] [address] [id number] [place] [address] December, [facility] [place] [facility] [address] [id number] [place] [address] December, [facility] [place] [facility] [address] [id number] [place] [address] December, [facility] [place] [facility] [address] [id number] [place] [address] December, [facility] [place] [facility] [address] [id number] [place] [address] December, [facility] [address] [id number] [place] [address] December, [facility] [address] [address] [id number] [place] [address] Nov, [facility] [address] [id number] [place] [address] Nov, [facility] [address] [id number] [place] [address] 17 Nov, 2011 [facility] [address] [id number] [place] [address] Nov, [facility] [address] [id number] [place] [address] 16 Nov, 2011 [facility] [address] [id number] [place] [address] 13 Nov, 2011 [facility] [address] [id number] [place] [address] 12 Nov, 2011 [facility] [address] [id number] [place] [address] Nov, [facility] [address] [id number] [place] [address] 05 Nov, 2011 [facility] [address] [id number] [place] [address] 04 Nov, 2011 [facility] [address] [id number] [place] [address] 30 Oct, 2011 [facility] [place] [facility] [address] [id number] [place] [address] 29 Oct, 2011 [facility] [address] [id number] [place] [address] 28 Oct, 2011 [facility] [address] [id number] [place] [address] Oct, [facility] [place] [facility] [address] [id number] [place] [address] 26 Oct, 2011 [facility] [place] [facility] [address] [id number] [place] [address] 23 Oct, 2011 [facility] [place] [facility] [address] [id number] [place] [address] 21 Oct, 2011 [facility] [place] [facility] [address] [id number] [place] [address] 19 Oct, 2011 [facility] [place] [facility] [address] [id number] [place] [address] 08 Oct, 2011 [facility] [place] [facility] [address] [id number] [place] [address] 07 Oct, 2011 [facility] [place] [facility] [address] [id number] [place] [address] 06 Oct, 2011 [facility] [place] [facility] [address] [id number] [place] [address] 05 Oct, 2011 [facility] [place] [facility] [address] [id number] [place] [address] 16 Sep, 2011 [facility] [place] [facility] [address] [id number] [place] [address] 14 Sep, 2011 [facility] [place] [facility] [address] [id number] [place] [address] 12 Sep, 2011 [facility] [place] [facility] [address] [id number] [place] [address] 10 Sep, 2011 [facility] [place] [facility] [address] [id number] [place] [address] 06 Sep, 2011 [facility] [place] [facility] [address] [id number] [place] [address] 06 Sep, 2011 [facility] [place] [facility] [address] [facility] [id number] [place] [address] 06 Sep, 2011 [facility] [place] [facility] [address] [id number] [place] [address] 06 Sep, 2011 [facility] [address] [id number] [place] [address] Sep, [facility] [address] [id number] [place] [address] 30 Aug, 2011 [facility] [address] [id number] [place] [address] Aug, [facility] [address] [id number] [place] [address] Aug, [facility] [address] [id number] [place] [address] Aug, [facility] [address] [id number] [place] [address] Aug, [facility] [address] [id number] [place] [address] Aug, [facility] [address] [id number] [place] [address] Aug, [facility] [address] [id number] [place] [address] 24 Jul, 2011 [facility] [address] [id number] [place] [address] 16 Jul, 2011 [facility] [address] [id number] [place] [address] 16 Jul, 2011 [facility] [address] [id number] [place] [address] 14 Jul, 2011 [facility] [place] [facility] [address] [id number] [place] [address] 30 Jun, 2011 [facility] [address] [id number] [place] [address] Jun, [facility] [address] [id number] [place] [address] May, [facility] [address] [facility] [id number] [place] [address] Mar, [facility] [address] [facility] [id number] [place] [address] Jan, [facility] [address] [facility] [id number] [place] [address] May, IMMUNIZATIONS No Known Immunizations SOCIAL HISTORY Never Assessed REASON FOR VISIT [facility] PLAN OF CARE VITAL SIGNS MEDICATIONS Unknown [...]
--- OUTSIDE RECORDS SUMMARY | 2019-03-23 07:22 | XMS REPORT ---
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 Role Phone Migration, Doctor Unavailable Unavailable PROBLEMS Type Condition ICD9-CM Code MPX06-PB Code Onset Dates Condition Status SNOMED Code Problem Other postablative hypothyroidism 244.1 Active 032085789 Problem Major depressive disorder, recurrent episode, severe, without mention of psychotic behavior 296.33 Active [id number] ALLERGIES No Information ENCOUNTERS Encounter Location Date Diagnosis [place] [id number] [place] [address] Sep, Unspecified mood [affective] disorder [place] [id number] [place] [address] Aug, Unspecified mood [affective] disorder [place] [id number] [place] [address] Jul, Unspecified mood [affective] disorder 9 [place] [id number] [place] [address] Jun, Unspecified mood [affective] disorder [place] [id number] [place] [address] Mar, Affective disorder 296.90 [place] [id number] [place] [address] Mar, [place] [id number] [place] [address] Feb, Nexplanon removal V25.43 and Initiation of OCP (BCP) V25.01 [place] [id number] [place] [address] Feb, Episodic mood disorder 296.90 [place] [id number] [place] [address] [place] [address] Feb, [facility] [id number], [place] [address] Feb, Routine gynecological examination V72.31 ; Pap test, as part of routine gynecological examination V76.2 ; Breast cancer screening V76.10 ; Nexplanon in place V45.52 and Rash 782.1 [facility] [id number], [place] [address] Jan, Episodic mood disorder 296.90 [facility] [id number], [place] [address] Jan, [facility] [id number], [place] [address] December, Episodic mood disorder 296.90 [facility] [id number], [place] [address] December, [facility] [id number] [address] December, [facility] [id number] [address] December, [facility] [id number], [place] [address] Nov, [facility] [id number], [place] [address] Nov, [facility] [id number], [place] [address] Nov, [facility] [id number], [place] [address] Oct, [facility] [id number], [place] [address] Oct, [facility] [id number] [address] Oct, [facility] [id number] [place] [address] Oct, [facility] [place] [facility] [address] [id number] [place] [address] Oct, [facility] [place] [facility] [address] [id number] [place] [address] Oct, [facility] [place] [facility] [address] [id number] [place] [address] Sep, 2014 [facility] [place] [facility] [address] [id number] [place] [address] Sep, 2014 [facility] [place] [facility] [address] [id number] [place] [address] Sep, 2014 [facility] [place] [facility] [address] [id number] [place] [address] Sep, 2014 [facility] [place] [facility] [address] [id number] [place] [address] Sep, [facility] [place] [facility] [address] [id number] [place] [address] Sep, [facility] [place] [facility] [address] [id number] [place] [address] Aug, [facility] [place] [facility] [address] [id number] [place] [address] Aug, [facility] [place] [facility] [address] [id number] [place] [address] Aug, [facility] [place] [facility] [address] [id number] [place] [address] Aug, [facility] [place] [facility] [address] [id number] [place] [address] Aug, [facility] [place] [facility] [address] [id number] [place] [address] Aug, [facility] [place] [facility] [address] [id number] [place] [address] Aug, [facility] [place] [facility] [address] [id number] [place] [address] 14 Aug, 2014 [facility] [place] [facility] [address] [id number] [place] [address] Aug, [facility] [place] [facility] [address] [id number] [place] [address] Aug, [facility] [place] [facility] [address] [id number] [place] [address] Aug, [facility] [place] [facility] [address] [id number] [place] [address] Aug, [facility] [place] [facility] [address] [id number] [place] [address] Aug, [facility] [place] [facility] [address] [id number] [place] [address] Aug, [facility] [place] [facility] [address] [id number] [place] [address] Aug, [facility] [place] [facility] [address] [id number] [place] [address] Aug, [facility] [place] [facility] [address] [id number] [place] [address] Jul, [facility] [place] [facility] [address] [id number], [place] [address] 15 Jul, 2014 [facility] [place] [facility] [address] [id number], [place] [address] 15 Jul, 2014 [facility] [place] [facility] [address] [id number] [place] [address] Jul, [facility] [place] [facility] [address] [id number] [place] [address] Jul, [facility] [place] [facility] [address] [id number] [place] [address] Jul, [facility] [place] [facility] [address] [id number] [place] [address] 11 Jul, 2014 [facility] [place] [facility] [address] [id number] [place] [address] Jul, [facility] [place] [facility] [address] [id number] [place] [address] Jul, [facility] [place] [facility] [address] [id number] [place] [address] 05 Jul, 2014 [facility] [place] [facility] [address] [id number] [place] [address] 05 Jul, 2014 [facility] [place] [facility] [address] [id number] [place] [address] Jul, [facility] [place] [facility] [address] [id number] [place] [address] Jul, [facility] [place] [facility] [address] [id number] [place] [address] Jun, [facility] [place] [facility] [address] [id number] [place] [address] Jun, [facility] [place] [facility] [address] [id number] [place] [address] Jun, [facility] [place] [facility] [address] [facility] [id number] [place] [address] Jun, [facility] [place] [facility] [address] [id number] [place] [address] Jun, [facility] [place] [facility] [address] [id number] [place] [address] Jun, [facility] [place] [facility] [address] [id number] [place] [address] Jun, [facility] [place] [facility] [address] [id number] [place] [address] Jun, [facility] [place] [facility] [address] [id number] [address] Jun, [facility] [place] [facility] [address] [id number] [place] [address] Jun, [facility] [place] [facility] [address] [id number] [place] [address] Jun, [facility] [place] [facility] [address] [id number] [place] [address] Jun, [facility] [place] [facility] [address] [id number] [place] [address] Jun, [facility] [place] [facility] [address] [id number] [place] [address] Jun, [facility] [place] [facility] [address] [id number] [place] [address] May, [facility] [place] [facility] [address] [id number] [place] [address] May, [facility] [place] [facility] [address] [id number] [place] [address] May, [facility] [place] [facility] [address] [id number] [place] [address] May, [facility] [place] [facility] [address] [id number] [place] [address] May, [facility] [place] [facility] [address] [id number] [place] [address] May, [facility] [place] [facility] [address] [id number] [place] [address] May, [facility] [place] [facility] [address] [id number] [place] [address] May, [facility] [place] [facility] [address] [id number] [place] [address] May, [facility] [place] [facility] [address] [id number] [place] [address] May, [facility] [place] [facility] [address] [id number] [place] [address] 30 Sep, 2013 [facility] [place] [facility] [address] [id number] [place] [address] 30 Sep, 2013 [facility] [place] [facility] [address] [id number] [place] [address] 19 Sep, 2013 [facility] [place] [facility] [address] [id number] [place] [address] 19 Sep, 2013 [facility] [place] [facility] [address] [id number] [place] [address] 18 Sep, 2013 [facility] [place] [facility] [address] [id number] [place] [address] 18 Sep, 2013 [facility] [place] [facility] [address] [id number] [place] [address] 18 Sep, 2013 [facility] [place] [facility] [address] [id number] [place] [address] 18 Sep, 2013 [facility] [place] [facility] [address] [id number] [place] [address] 16 Sep, 2013 [facility] [place] [facility] [address] [id number] [place] [address] 16 Sep, 2013 [facility] [place] [facility] [address] [id number] [place] [address] 08 Sep, 2013 [facility] [place] [facility] [address] [id number] [place] [address] 08 Sep, 2013 [facility] [place] [facility] [address] [id number] [place] [address] 08 Sep, 2013 [facility] [place] [facility] [address] [id number] [place] [address] 08 Sep, 2013 [facility] [place] [facility] [address] [id number] [place] [address] 04 Sep, 2013 [facility] [place] [facility] [address] [id number] [place] [address] 04 Sep, 2013 [facility] [place] [facility] [address] [id number] [place] [address] Mar, [facility] [place] [facility] [address] [id number] [place] [address] Mar, [facility] [place] [facility] [address] [id number] [place] [address] Mar, [facility] [place] [facility] [address] [id number] [place] [address] Jan, [facility] [place] [facility] [address] [id number] [place] [address] 23 Jan, 2014 [facility] [place] [facility] [address] [id number] [place] [address] Jan, [facility] [place] [facility] [address] [id number] [place] [address] 18 Jan, 2014 [facility] [place] [facility] [address] [id number] [place] [address] 16 Jan, 2014 [facility] [place] [facility] [address] [id number] [place] [address] 16 Jan, 2014 [facility] [place] [facility] [address] [id number] [place] [address] 16 Jan, 2014 [facility] [place] [facility] [address] [id number] [place] [address] 16 Jan, 2014 [facility] [place] [facility] [address] [id number] [place] [address] Jan, [facility] [place] [facility] [address] [id number] [place] [address] Jan, [facility] [place] [facility] [address] [id number] [place] [address] Jan, [facility] [place] [facility] [address] [id number] [place] [address] 11 Jan, 2014 [facility] [place] [facility] [address] [id number] [place] [address] Jan, [facility] [place] [facility] [address] [id number] [place] [address] Jan, [facility] [place] [facility] [address] [id number] [place] [address] Jan, [facility] [place] [facility] [address] [id number] [place] [address] Jan, [facility] [place] [facility] [address] [id number] [place] [address] December, [facility] [place] [facility] [address] [id number] [place] [address] December, [facility] [place] [facility] [address] [id number] [place] [address] December, [facility] [place] [facility] [address] [id number] [place] [address] December, [facility] [place] [facility] [address] [id number] [place] [address] December, [facility] [place] [facility] [address] [id number] [place] [address] Nov, [facility] [place] [facility] [address] [id number] [place] [address] Nov, [facility] [place] [facility] [address] [id number] [place] [address] Nov, [facility] [place] [facility] [address] [id number] [place] [address] Nov, [facility] [place] [facility] [address] [id number] [place] [address] Nov, [facility] [place] [facility] [address] [id number] [place] [address] Nov, [facility] [place] [facility] [address] [id number] [place] [address] Nov, [facility] [place] [facility] [address] [id number], [place] [address] 24 Nov, 2013 [facility] [place] [facility] [address] [id number] [place] [address] Nov, [facility] [place] [facility] [address] [id number] [place] [address] Nov, [facility] [place] [facility] [address] [facility] [id number] [place] [address] Oct, [facility] [place] [facility] [address] [id number] [place] [address] Oct, [facility] [place] [facility] [address] [id number] [place] [address] Oct, [facility] [place] [facility] [address] [id number] [place] [address] Oct, [facility] [place] [facility] [address] [facility] [id number] [place] [address] Oct, [facility] [place] [facility] [address] [id number] [place] [address] Oct, [facility] [place] [facility] [address] [id number] [place] [address] Oct, [facility] [place] [facility] [address] [facility] [id number] [place] [address] Oct, [facility] [place] [facility] [address] [id number] [place] [address] Oct, [facility] [place] [facility] [address] [id number] [place] [address] Sep, [facility] [place] [facility] [address] [id number] [place] [address] Sep, [facility] [place] [facility] [address] [id number] [place] [address] Sep, [facility] [place] [facility] [address] [facility] [id number] [place] [address] Sep, [facility] [place] [facility] [address] [id number] [place] [address] Sep, [facility] [place] [facility] [address] [id number] [place] [address] Sep, [facility] [place] [facility] [address] [id number] [place] [address] Sep, [facility] [place] [facility] [address] [id number] [place] [address] Aug, [facility] [place] [facility] [address] [id number] [place] [address] Aug, [facility] [place] [facility] [address] [id number] [place] [address] Aug, [facility] [place] [facility] [address] [id number] [place] [address] Aug, [facility] [place] [facility] [address] [id number] [place] [address] Aug, [facility] [place] [facility] [address] [id number] [place] [address] Aug, [facility] [place] [facility] [address] [id number] [place] [address] Aug, [facility] [place] [facility] [address] [id number] [place] [address] Aug, [facility] [place] [facility] [address] [id number], [place] [address] Jul, [facility] [place] [facility] [address] [id number] [place] [address] Jul, [facility] [place] [facility] [address] [id number] [place] [address] Jul, [facility] [place] [facility] [address] [id number], [place] [address] Jul, [facility] [place] [facility] [address] [id number], [place] [address] Jun, [facility] [place] [facility] [address] [id number] [place] [address] Jun, [facility] [place] [facility] [address] [id number] [place] [address] Jun, [facility] [place] [facility] [address] [id number] [place] [address] May, [facility] [place] [facility] [address] [id number] [place] [address] May, [facility] [place] [facility] [address] [id number] [place] [address] May, [facility] [place] [facility] [address] [id number] [place] [address] May, [facility] [place] [facility] [address] [id number] [place] [address] May, [facility] [place] [facility] [address] [id number] [place] [address] May, [facility] [place] [facility] [address] [facility] [id number] [place] [address] May, [facility] [place] [facility] [address] [facility] [id number] [place] [address] Apr, [facility] [place] [facility] [address] [id number], [place] [address] 17 Apr, 2013 [facility] [place] [facility] [address] [id number], [place] [address] 12 Apr, 2013 [facility] [place] [facility] [address] [id number] [place] [address] 11 Apr, 2013 [facility] [place] [facility] [address] [facility] [id number] [place] [address] 05 Apr, 2013 [facility] [place] [facility] [address] [facility] [id number] [place] [address] Mar, [facility] [place] [facility] [address] [id number] [place] [address] Mar, [facility] [place] [facility] [address] [id number] [place] [address] Mar, [facility] [place] [facility] [address] [id number] [place] [address] Mar, [facility] [place] [facility] [address] [id number] [place] [address] Feb, [facility] [place] [facility] [address] [id number] [place] [address] Feb, [facility] [place] [facility] [address] [id number] [place] [address] Feb, [facility] [place] [facility] [address] [id number] [place] [address] Feb, [facility] [place] [facility] [address] [id number] [place] [address] Feb, [facility] [place] [facility] [address] [id number] [place] [address] Feb, [facility] [place] [facility] [address] [id number] [place] [address] Feb, [facility] [place] [facility] [address] [id number] [place] [address] Feb, [facility] [place] [facility] [address] [id number] [place] [address] Jan, [facility] [place] [facility] [address] [id number] [place] [address] Jan, [facility] [place] [facility] [address] [id number] [place] [address] Jan, [facility] [place] [facility] [address] [id number] [place] [address] Jan, [facility] [place] [facility] [address] [id number] [place] [address] Jan, [facility] [address] [id number] [place] [address] Jan, [facility] [place] [facility] [address] [id number] [place] [address] Jan, [facility] [place] [facility] [address] [id number] [place] [address] December, [facility] [place] [facility] [address] [id number] [place] [address] December, [facility] [address] [id number] [place] [address] 30 Nov, 2012 [facility] [place] [facility] [address] [id number] [place] [address] Nov, [facility] [place] [facility] [address] [id number] [place] [address] Nov, [facility] [place] [facility] [address] [id number] [place] [address] Nov, [facility] [place] [facility] [address] [id number] [place] [address] 24 Nov, 2012 [facility] [place] [facility] [address] [id number] [place] [address] Nov, [facility] [place] [facility] [address] [id number] [place] [address] Nov, [facility] [place] [facility] [address] [id number], [place] [address] 15 Nov, 2012 [facility] [place] [facility] [address] [id number] [place] [address] 11 Nov, 2012 [facility] [place] [facility] [address] [id number] [place] [address] 10 Nov, 2012 [facility] [place] [facility] [address] [id number] [place] [address] 08 Nov, 2012 [facility] [place] [facility] [address] [id number] [place] [address] 05 Nov, 2012 [facility] [address] [id number] [place] [address] Nov, [facility] [place] [facility] [address] [id number] [place] [address] Nov, [facility] [address] [id number] [place] [address] Oct, [facility] [place] [facility] [address] [id number] [place] [address] Oct, [facility] [address] [id number] [place] [address] Oct, [facility] [address] [id number] [place] [address] Oct, [facility] [address] [id number] [place] [address] Oct, [facility] [address] [id number] [place] [address] Oct, [facility] [address] [id number] [place] [address] Oct, [facility] [address] [id number] [place] [address] Oct, [facility] [address] [id number] [place] [address] Oct, [facility] [place] [facility] [address] [id number] [place] [address] Sep, [facility] [place] [facility] [address] [id number] [place] [address] Aug, [facility] [place] [facility] [address] [id number] [place] [address] Aug, [facility] [place] [facility] [address] [id number] [place] [address] Aug, [facility] [place] [facility] [address] [id number] [place] [address] Aug, [facility] [place] [facility] [address] [id number] [place] [address] 31 Jul, 2012 [facility] [place] [facility] [address] [id number] [place] [address] 31 Jul, 2012 [facility] [place] [facility] [address] [id number] [place] [address] Jul, [facility] [address] [id number] [place] [address] 19 Jul, 2012 [facility] [place] [facility] [address] [id number] [place] [address] Jul, [facility] [address] [id number] [place] [address] 15 Jul, 2012 [facility] [place] [facility] [address] [id number] [place] [address] 15 Jul, 2012 [facility] [place] [facility] [address] [id number] [place] [address] 14 Jul, 2012 [facility] [place] [facility] [address] [id number] [place] [address] 14 Jul, 2012 [facility] [place] [facility] [address] [id number] [place] [address] May, [facility] [place] [facility] [address] [id number] [place] [address] 22 May, 2012 [facility] [place] [facility] [address] [id number] [place] [address] 16 May, 2012 [facility] [place] [facility] [address] [id number] [place] [address] 16 May, 2012 [facility] [place] [facility] [address] [id number] [place] [address] 12 May, 2012 [facility] [place] [facility] [address] [id number] [place] [address] May, [facility] [place] [facility] [address] [id number] [place] [address] 27 Apr, 2012 [facility] [place] [facility] [address] [id number] [place] [address] 27 Apr, 2012 [facility] [place] [facility] [address] [id number] [place] [address] 24 Apr, 2012 [facility] [place] [facility] [address] [id number] [place] [address] 18 Apr, 2012 [facility] [place] [facility] [address] [id number] [place] [address] 14 Apr, 2012 [facility] [place] [facility] [address] [id number] [place] [address] 12 Apr, 2012 [facility] [place] [facility] [address] [id number] [place] [address] Mar, [facility] [place] [facility] [address] [id number] [place] [address] Feb, [facility] [place] [facility] [address] [id number] [place] [address] Feb, [facility] [place] [facility] [address] [id number] [place] [id number] Feb, [facility] [place] [facility] [address] [id number] [place] [address] Jan, [facility] [place] [facility] [address] [id number] [place] [address] December, [facility] [place] [facility] [address] [id number] [place] [address] December, [facility] [place] [facility] [address] [id number] [place] [address] December, [facility] [place] [facility] [address] [id number] [place] [address] December, [facility] [place] [facility] [address] [id number] [place] [address] December, [facility] [address] [id number] [place] [address] December, [facility] [address] [id number] [place] [address] Nov, [facility] [address] [id number] [place] [address] Nov, [facility] [address] [id number] [place] [address] 17 Nov, 2011 [facility] [address] [id number] [place] [address] Nov, [facility] [address] [id number] [place] [address] 16 Nov, 2011 [facility] [address] [id number] [place] [address] 13 Nov, 2011 [facility] [address] [id number] [place] [address] 12 Nov, 2011 [facility] [address] [id number] [place] [address] Nov, [facility] [address] [id number] [place] [address] 05 Nov, 2011 [facility] [address] [id number] [place] [address] 04 Nov, 2011 [facility] [address] [id number] [place] [address] 30 Oct, 2011 [facility] [place] [facility] [address] [id number] [place] [address] 29 Oct, 2011 [facility] [address] [id number] [place] [address] 28 Oct, 2011 [facility] [address] [id number] [place] [address] Oct, [facility] [place] [facility] [address] [id number] [place] [address] 26 Oct, 2011 [facility] [place] [facility] [address] [id number] [place] [address] 23 Oct, 2011 [facility] [place] [facility] [address] [id number] [place] [address] 21 Oct, 2011 [facility] [place] [facility] [address] [id number] [place] [address] 19 Oct, 2011 [facility] [place] [facility] [address] [id number] [place] [address] 08 Oct, 2011 [facility] [place] [facility] [address] [id number] [place] [address] 07 Oct, 2011 [facility] [place] [facility] [address] [id number] [place] [address] 06 Oct, 2011 [facility] [place] [facility] [address] [id number] [place] [address] 05 Oct, 2011 [facility] [place] [facility] [address] [id number] [place] [address] 16 Sep, 2011 [facility] [place] [facility] [address] [id number] [place] [address] 14 Sep, 2011 [facility] [place] [facility] [address] [id number] [place] [address] 12 Sep, 2011 [facility] [place] [facility] [address] [id number] [place] [address] 10 Sep, 2011 [facility] [place] [facility] [address] [id number] [place] [address] 06 Sep, 2011 [facility] [place] [facility] [address] [id number] [place] [address] 06 Sep, 2011 [facility] [place] [facility] [address] [facility] [id number] [place] [address] 06 Sep, 2011 [facility] [place] [facility] [address] [id number] [place] [address] 06 Sep, 2011 [facility] [address] [id number] [place] [address] Sep, [facility] [address] [id number] [place] [address] 30 Aug, 2011 [facility] [address] [id number] [place] [address] Aug, [facility] [address] [id number] [place] [address] Aug, [facility] [address] [id number] [place] [address] Aug, [facility] [address] [id number] [place] [address] Aug, [facility] [address] [id number] [place] [address] Aug, [facility] [address] [id number] [place] [address] Aug, [facility] [address] [id number] [place] [address] 24 Jul, 2011 [facility] [address] [id number] [place] [address] 16 Jul, 2011 [facility] [address] [id number] [place] [address] 16 Jul, 2011 [facility] [address] [id number] [place] [address] 14 Jul, 2011 [facility] [place] [facility] [address] [id number] [place] [address] 30 Jun, 2011 [facility] [address] [id number] [place] [address] Jun, [facility] [address] [id number] [place] [address] May, [facility] [address] [facility] [id number] [place] [address] Mar, [facility] [address] [facility] [id number], [place] [address] Jan, [facility] [address] [facility] [id number] [place] [address] May, IMMUNIZATIONS No Known Immunizations SOCIAL HISTORY Never Assessed REASON FOR VISIT [facility] [place] VITAL SIGNS MEDICATIONS Unknown [...]
--- OUTSIDE RECORDS SUMMARY | 2019-03-23 07:28 | XMS REPORT | Continuity of Care Document ---
Author Organization Unknown Address Unknown Phone Unavailable Allergies Active Description Code Type Severity Reaction Onset Reported/Identified Relationship to Patient Clinical Status Yes amoxicillin Drug Allergy N/A N/A 11/17/2008 [...] N/A 05/14/2012 Yes Penicillins Drug Allergy 05/14/2012 Medications There is no data. Problems Date Dx Coded Attending Type Code Diagnosis Diagnosed By 03/29/2008 ADILIA WHYTE DO 242.90 Hyperthyroidism Nos [...] K 242.90 Hyperthyroidism Nos 03/29/2008 MCKEON CASHERO MANUFACTURING INSPECTOR, DAMIEN N 242.90 Hyperthyroidism Nos 03/29/2008 WHYTE DO, ADILIA K 242.90 Hyperthyroidism Nos 03/29/2008 MCKEON CASHERO MANUFACTURING INSPECTOR, DAMIEN N 242.90 Hyperthyroidism Nos 03/29/2008 MANJINDER MANUFACTURING INSPECTOR, RENAN R 242.90 Hyperthyroidism Nos 03/29/2008 WHYTE DO, ADILIA K 242.90 Hyperthyroidism Nos 03/29/2008 BRIAN DDS, WARREN Kuo 242.90 Hyperthyroidism Nos 03/29/2008 WHYTE DO, ADILIA K 242.90 Hyperthyroidism Nos 03/29/2008 WHYTE DO, ADILIA K 242.90 Hyperthyroidism Nos 03/29/2008 WON CARMONA, MARIUSZ B 242.90 Hyperthyroidism Nos 03/29/2008 APOORVA RAMIREZ, DANIEL A 242.90 Hyperthyroidism Nos 03/29/2008 RAVEN PEREZN, ANSHUL R 242.90 Hyperthyroidism Nos 03/29/2008 YOVANI PEREZN, VONNIE A 242.90 Hyperthyroidism Nos 03/29/2008 WHYTE DO, ADILIA K 242.90 Hyperthyroidism Nos 03/29/2008 VENKATESH PEREZN, EMILY Garcia 242.90 Hyperthyroidism Nos 03/29/2008 HOLLY KEVIN, RONNIE E 242.90 Hyperthyroidism Nos 03/29/2008 YOVANI TOVAR, VONNIE A 242.90 Hyperthyroidism Nos 03/29/2008 HOLLY KEVIN, RONNIE E 242.90 Hyperthyroidism Nos 03/29/2008 ZULEIKA HERRON, CHRISTOPHER 242.90 Hyperthyroidism Nos 03/29/2008 YOVANI TOVAR, VONNIE A 242.90 Hyperthyroidism Nos 03/29/2008 WHYTE DO, ADILIA K 242.90 Hyperthyroidism Nos 03/29/2008 HOLLY KEVIN, RONNIE E 242.90 Hyperthyroidism Nos 03/29/2008 ZULEIKA HERRON, CHRISTOPHER 242.90 Hyperthyroidism Nos 03/29/2008 HOLLY KEVIN, RONNIE E 242.90 Hyperthyroidism Nos 03/29/2008 WHYTE DO, ADILIA K 242.90 Hyperthyroidism Nos 03/29/2008 ZULEIKA HERRON, CHRISTOPHER 242.90 Hyperthyroidism Nos 03/29/2008 ZULEIKA HERRON, CHRISTOPHER 242.90 Hyperthyroidism Nos 03/29/2008 WHYTE DO, ADILIA K 242.90 Hyperthyroidism Nos 03/29/2008 MANJINDER PEREZN, RENAN R 242.90 Hyperthyroidism Nos 04/08/2008 WHYTE DO, ADILIA K 244.9 Hypothyroidism 04/08/2008 244.9 Hypothyroidism 04/08/2008 244.9 Hypothyroidism 04/08/2008 WHYTE DO, ADILIA K 244.9 Hypothyroidism 04/08/2008 WHYTE DO, ADILIA K 244.9 Hypothyroidism 04/08/2008 244.9 Hypothyroidism 04/08/2008 244.9 Hypothyroidism 04/08/2008 TIEN KIMBLE PA-C 244.9 Hypothyroidism 04/08/2008 RAVEN PEREZN, ANSHUL R 244.9 Hypothyroidism 04/08/2008 WHYTE DO, ADILIA K 244.9 Hypothyroidism 04/08/2008 244.9 Hypothyroidism 04/08/2008 244.9 Hypothyroidism 04/08/2008 244.9 Hypothyroidism 04/08/2008 244.9 Hypothyroidism 04/08/2008 244.9 Hypothyroidism 04/08/2008 244.9 Hypothyroidism 04/08/2008 244.9 Hypothyroidism 04/08/2008 244.9 Hypothyroidism 04/08/2008 244.9 Hypothyroidism 04/08/2008 LENKA DDS, GORDON B 244.9 Hypothyroidism 04/08/2008 BRIAN DDSMAX 244.9 Hypothyroidism 04/08/2008 WHYTE DO, ADILIA K 244.9 Hypothyroidism 04/08/2008 LINDA SIGALA MANUFACTURING INSPECTOR, DAMIEN N 244.9 Hypothyroidism 04/08/2008 WHYTE DO, ADILIA K 244.9 Hypothyroidism 04/08/2008 LINDA SIGALA APRN, DAMIEN N 244.9 Hypothyroidism 04/08/2008 MANJINDER TOVAR RENAN R 244.9 Hypothyroidism 04/08/2008 WHYTE DO, ADILIA K 244.9 Hypothyroidism 04/08/2008 WHITE DDS, WARREN Kuo 244.9 Hypothyroidism 04/08/2008 WHYTE DO, ADILIA K 244.9 Hypothyroidism 04/08/2008 WHYTE DO, ADILIA K 244.9 Hypothyroidism 04/08/2008 MARIUSZ UPTON LCPC 244.9 Hypothyroidism 04/08/2008 APOORVA RAMIREZ, DANIEL A 244.9 Hypothyroidism 04/08/2008 LORRIE CARBAJAL APRNRICIA R 244.9 Hypothyroidism 04/08/2008 YOVANI MANUFACTURING INSPECTOR, VONNIE A 244.9 Hypothyroidism 04/08/2008 ADILIA WHYTE DO K 244.9 Hypothyroidism 04/08/2008 MADL MANUFACTURING INSPECTOR, EMILY L 244.9 Hypothyroidism 04/08/2008 HOLLY KEVIN, RONNIE E 244.9 Hypothyroidism 04/08/2008 YOVANI MANUFACTURING INSPECTOR, VONNIE A 244.9 Hypothyroidism 04/08/2008 HOLLY KEVIN, RONNIE E 244.9 Hypothyroidism 04/08/2008 ZULEIKA DPM, CHRISTOPHER 244.9 Hypothyroidism 04/08/2008 YOVANI MANUFACTURING INSPECTOR, VONNIE A 244.9 Hypothyroidism 04/08/2008 WHYTE DO, ADILIA K 244.9 Hypothyroidism 04/08/2008 HOLLY KEVIN, RONNIE E 244.9 Hypothyroidism 04/08/2008 ZULEIKA DPM, CHRISTOPHER 244.9 Hypothyroidism 04/08/2008 HOLLY KEVIN, RONNIE E 244.9 Hypothyroidism 04/08/2008 WHYTE DO, ADILIA K 244.9 Hypothyroidism 04/08/2008 ZULEIKA DPM, CHRISTOPHER 244.9 Hypothyroidism 04/08/2008 ZULEIKA DPM, CHRISTOPHER 244.9 Hypothyroidism 04/08/2008 ADILIA WHYTE DO K 244.9 Hypothyroidism 04/08/2008 MANJINDER MANUFACTURING INSPECTOR, RENAN R 244.9 Hypothyroidism 04/26/2008 ADILIA WHYTE DO [...] Surveillance Of Other Contraceptive Method 04/26/2008 LENKA DDS, GORDON Qiu V25.49 Surveillance Of Other Contraceptive Method 04/26/2008 BRIAN DDS, MAX Fraga V25.49 Surveillance Of Other Contraceptive Method 04/26/2008 WHYTE DO ADILIA K V25.49 Surveillance Of Other Contraceptive Method 04/26/2008 MCKEON CASHERO MANUFACTURING INSPECTOR, DAMIEN N V25.49 Surveillance Of Other Contraceptive Method 04/26/2008 WHYTE DO, ADILIA K V25.49 Surveillance Of Other Contraceptive Method 04/26/2008 MCKEON CASHERO MANUFACTURING INSPECTOR, DAMIEN N V25.49 Surveillance Of Other Contraceptive Method 04/26/2008 RENAN DUNBAR APRN V25.49 Surveillance Of Other Contraceptive Method 04/26/2008 WHYTE DO ADILIA K V25.49 Surveillance Of Other Contraceptive Method 04/26/2008 BRIAN DDS, WARREN Kuo V25.49 Surveillance Of Other Contraceptive Method 04/26/2008 WHYTE DO, ADILIA K V25.49 Surveillance Of Other Contraceptive Method 04/26/2008 WHYTE DO, ADILIA K V25.49 Surveillance Of Other Contraceptive Method 04/26/2008 WON CARMONA, MARIUSZ Qiu V25.49 Surveillance Of Other Contraceptive Method 04/26/2008 APOORVA RAMIREZ, DANIEL A V25.49 Surveillance Of Other Contraceptive Method 04/26/2008 ANSHUL CARBAJAL APRN V25.49 Surveillance Of Other Contraceptive Method 04/26/2008 YOVANIVONNIE Lord APRN A V25.49 Surveillance Of Other Contraceptive Method 04/26/2008 WHYTE DO ADILIA K V25.49 Surveillance Of Other Contraceptive Method 04/26/2008 EMILY RIDDLE APRN V25.49 Surveillance Of Other Contraceptive Method 04/26/2008 RONNIE BARRERA RN V25.49 Surveillance Of Other Contraceptive Method 04/26/2008 VONNIE PINA APRN A V25.49 Surveillance Of Other Contraceptive Method [...] THYROTOXIC CRISIS OR STORM 05/19/2008 LINDA SIGALA APRN, DAMIEN N 242.00 TOXIC DIFFUSE GOITER WITHOUT [...] GOITER WITHOUT THYROTOXIC CRISIS OR STORM 05/19/2008 MARIUSZ UPTON LCPC B 242.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 05/19/2008 APOORVA RAMIREZ, DANIEL Pickens 242.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 05/19/2008 ANSHUL CARBAJAL APRN R 242.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 05/19/2008 VONNIE PINA APRN A 242.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 05/19/2008 WHYTE DO, ADILIA K 242.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 05/19/2008 VENKATESH MANUFACTURING INSPECTOR, EMILY L 242.00 TOXIC DIFFUSE GOITER WITHOUT [...] WITHOUT THYROTOXIC CRISIS OR STORM 05/19/2008 MANJINDER MANUFACTURING INSPECTOR, RENAN R 242.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 06/06/2008 WHYTE DO, ADILIA K 724.5 Backache Unspecified 06/06/2008 724.5 Backache Unspecified 06/06/2008 724.5 Backache Unspecified 06/06/2008 WHYTE DO, ADILIA K 724.5 Backache Unspecified 06/06/2008 WHYTE DO, ADILIA K 724.5 Backache Unspecified 06/06/2008 724.5 Backache Unspecified 06/06/2008 724.5 Backache Unspecified 06/06/2008 TIEN KIMBLE PA-C 724.5 Backache Unspecified 06/06/2008 RAVEN PEREZN, ANSHUL R 724.5 Backache Unspecified 06/06/2008 WHYTE [...] ADILIA K 724.5 Backache Unspecified 06/06/2008 LINDA SIGALA MANUFACTURING INSPECTOR, DAMIEN N 724.5 Backache Unspecified 06/06/2008 WHYTE DO, ADILIA K 724.5 Backache Unspecified 06/06/2008 LINDA JOHNSONERO MANUFACTURING INSPECTOR, DAMIEN N 724.5 Backache Unspecified 06/06/2008 RENAN DUNBAR APRN R 724.5 Backache Unspecified 06/06/2008 WHYTE DO, ADILIA K 724.5 Backache Unspecified 06/06/2008 WARREN TORRES DDS 724.5 Backache Unspecified 06/06/2008 WHYTE DO, ADILIA K 724.5 Backache Unspecified 06/06/2008 WHYTE DO, ADILIA K 724.5 Backache Unspecified 06/06/2008 WON CARMONA, MARIUSZ B 724.5 Backache Unspecified 06/06/2008 APOORVA RAMIREZ, DANIEL Pickens 724.5 Backache Unspecified 06/06/2008 RAVEN PEREZNLORRIEANSHUL R 724.5 Backache Unspecified 06/06/2008 VONNIE PINA APRN A 724.5 Backache Unspecified 06/06/2008 WHYTE DO, ADILIA K 724.5 Backache Unspecified 06/06/2008 VENKATESH PEREZN, EMILY L 724.5 Backache Unspecified 06/06/2008 HOLLY RN, RONNIE E 724.5 Backache Unspecified 06/06/2008 YOVANI MANUFACTURING INSPECTOR, VONNIE A 724.5 Backache Unspecified 06/06/2008 HOLLY RN, RONNIE E 724.5 Backache Unspecified 06/06/2008 ZULEIKA DPM, CHRISTOPHER 724.5 Backache Unspecified 06/06/2008 YOVANI MANUFACTURING INSPECTOR, VONNIE A 724.5 Backache Unspecified 06/06/2008 WHYTE DO, ADILIA K 724.5 Backache Unspecified 06/06/2008 HOLLY RN, RONNIE E 724.5 Backache Unspecified 06/06/2008 ZULEIKA DPM, CHRISTOPHER 724.5 Backache Unspecified 06/06/2008 HOLLY RN, RONNIE E 724.5 Backache Unspecified 06/06/2008 WHYTE DO, ADILIA K 724.5 Backache Unspecified 06/06/2008 ZULEIKA DPM, CHRISTOPHER 724.5 Backache Unspecified 06/06/2008 ZULEIKA DPM, CHRISTOPHER 724.5 Backache Unspecified 06/06/2008 WHYTE DO, ADILIA K 724.5 Backache Unspecified 06/06/2008 RENAN DUNBAR APRN 724.5 Backache Unspecified 09/15/2008 WHYTE DO ADILIA [...] CARBAJAL APRN V25.40 Contraceptive Surveillance Unspecified 09/15/2008 ADILIA WHYTE DO K V25.40 Contraceptive Surveillance Unspecified 09/15/2008 V25.40 [...] V25.40 Contraceptive Surveillance Unspecified 09/15/2008 MCKEON CASHERO MANUFACTURING INSPECTOR, DAMIEN N V25.40 Contraceptive Surveillance Unspecified 09/15/2008 WHYTE DO, ADILIA K V25.40 Contraceptive Surveillance Unspecified 09/15/2008 MCKEON CASHERO MANUFACTURING INSPECTOR, DAMIEN N V25.40 Contraceptive Surveillance Unspecified 09/15/2008 RENAN DUNBAR APRN R V25.40 Contraceptive Surveillance Unspecified 09/15/2008 WHYTE DO, ADILIA K V25.40 Contraceptive Surveillance Unspecified 09/15/2008 BRIAN SANCHEZS, WARREN Kuo V25.40 Contraceptive Surveillance Unspecified 09/15/2008 WHYTE DO, ADILIA K V25.40 Contraceptive Surveillance Unspecified 09/15/2008 WHYTE DO, ADILIA K V25.40 Contraceptive Surveillance Unspecified 09/15/2008 MARIUSZ UPTON LCPC V25.40 Contraceptive Surveillance Unspecified 09/15/2008 APOORVA RAMIREZ, DANIEL A V25.40 Contraceptive Surveillance Unspecified 09/15/2008 ANSHUL CARBAJAL APRN R V25.40 Contraceptive Surveillance Unspecified 09/15/2008 VONNIE PINA APRN A V25.40 Contraceptive Surveillance Unspecified 09/15/2008 WHYTE DO, ADILIA K V25.40 Contraceptive Surveillance Unspecified 09/15/2008 EMILY RIDDEL APRN V25.40 Contraceptive Surveillance Unspecified 09/15/2008 RONNIE BARRERA RN E V25.40 Contraceptive Surveillance Unspecified 09/15/2008 VONNIE PINA APRN A V25.40 Contraceptive Surveillance Unspecified 09/15/2008 RONNIE BARRERA RN E V25.40 Contraceptive Surveillance Unspecified 09/15/2008 ZULEIKA DPM, CHRISTOPHER V25.40 Contraceptive Surveillance Unspecified 09/15/2008 VONNIE PINA APRN V25.40 Contraceptive Surveillance Unspecified 09/15/2008 ADILIA WHYTE DO V25.40 Contraceptive Surveillance Unspecified 09/15/2008 HOLLY KEVIN, RONNIE Shanks V25.40 Contraceptive Surveillance Unspecified 09/15/2008 ZULEIKA DPM, CHRISTOPHER V25.40 Contraceptive Surveillance Unspecified 09/15/2008 HOLLY KEVIN, RONNIE Shanks V25.40 Contraceptive Surveillance Unspecified 09/15/2008 WHYTE ADILIA DUEÑAS K V25.40 Contraceptive Surveillance Unspecified 09/15/2008 ZULEIKA DPM, CHRISTOPHER V25.40 Contraceptive Surveillance Unspecified 09/15/2008 ZULEIKA DPM, CHRISTOPHER V25.40 Contraceptive Surveillance Unspecified 09/15/2008 ADILIA WHYTE DO K V25.40 Contraceptive Surveillance Unspecified 09/15/2008 RENAN [...] 11/17/2008 244.8 OTHER SPECIFIED ACQUIRED HYPOTHYROIDISM 11/17/2008 GORDON OG DDS 244.8 OTHER SPECIFIED ACQUIRED HYPOTHYROIDISM 11/17/2008 WHITE DDS, MAX J 244.8 OTHER SPECIFIED ACQUIRED HYPOTHYROIDISM 11/17/2008 WHYTE DO, ADILIA K 244.8 OTHER SPECIFIED ACQUIRED HYPOTHYROIDISM 11/17/2008 MCKEON CASHERO MANUFACTURING INSPECTOR, DAMIEN N 244.8 OTHER SPECIFIED ACQUIRED HYPOTHYROIDISM 11/17/2008 WHYTE DO, ADILIA K 244.8 OTHER SPECIFIED ACQUIRED HYPOTHYROIDISM 11/17/2008 MCKEON CASHERO MANUFACTURING INSPECTOR, DAMIEN N 244.8 OTHER SPECIFIED ACQUIRED HYPOTHYROIDISM 11/17/2008 MANJINDER MANUFACTURING INSPECTOR, RENAN R 244.8 OTHER SPECIFIED ACQUIRED HYPOTHYROIDISM [...] 244.8 OTHER SPECIFIED ACQUIRED HYPOTHYROIDISM 11/17/2008 RAVEN MANUFACTURING INSPECTOR, ANSHUL R 244.8 OTHER SPECIFIED ACQUIRED HYPOTHYROIDISM 11/17/2008 YOVANI MANUFACTURING INSPECTOR, VONNIE A 244.8 OTHER SPECIFIED ACQUIRED HYPOTHYROIDISM 11/17/2008 WHYTE DO, ADILIA K 244.8 OTHER SPECIFIED ACQUIRED HYPOTHYROIDISM 11/17/2008 VENKATESH MANUFACTURING INSPECTOR, EMILY L 244.8 OTHER SPECIFIED ACQUIRED HYPOTHYROIDISM 11/17/2008 RONNIE BARRERA RN E 244.8 OTHER SPECIFIED ACQUIRED HYPOTHYROIDISM 11/17/2008 YOVANI MANUFACTURING INSPECTOR, VONNIE A 244.8 OTHER SPECIFIED ACQUIRED HYPOTHYROIDISM 11/17/2008 RONNIE BARRERA RN E 244.8 OTHER SPECIFIED ACQUIRED HYPOTHYROIDISM 11/17/2008 ZULEIKA DPM, CHRISTOPHER 244.8 OTHER SPECIFIED ACQUIRED HYPOTHYROIDISM 11/17/2008 YOVANI MANUFACTURING INSPECTOR, VONNIE A 244.8 OTHER SPECIFIED ACQUIRED HYPOTHYROIDISM [...] SPECIFIED ACQUIRED HYPOTHYROIDISM 11/17/2008 RENAN DUNBAR APRN 244.8 OTHER SPECIFIED ACQUIRED HYPOTHYROIDISM 01/27/2009 PATO DUEÑAS, ADILIA K 836.50 Closed Dislocation Of Knee Unspecified Part 01/27/2009 836.50 Closed Dislocation Of Knee Unspecified Part 01/27/2009 836.50 Closed Dislocation Of Knee Unspecified Part 01/27/2009 WHYTE JOSUE DUEÑASA K 836.50 Closed Dislocation Of Knee Unspecified Part 01/27/2009 WHYTE JOSUE DUEÑASA K 836.50 Closed Dislocation Of Knee Unspecified Part 01/27/2009 836.50 Closed Dislocation Of Knee Unspecified Part 01/27/2009 836.50 Closed Dislocation Of Knee Unspecified Part 01/27/2009 TIEN KIMBLE PA-C 836.50 Closed Dislocation Of Knee Unspecified Part 01/27/2009 ANSHUL CARBAJAL APRN 836.50 Closed Dislocation Of Knee Unspecified Part 01/27/2009 WHYTE JOSUE DEUÑASA K 836.50 Closed Dislocation Of Knee Unspecified [...] Closed Dislocation Of Knee Unspecified Part 01/27/2009 MCKEON CASHERO MANUFACTURING INSPECTOR, DAMIEN N 836.50 Closed Dislocation Of Knee Unspecified Part 01/27/2009 WHYTE DO, ADILIA K 836.50 Closed Dislocation Of Knee Unspecified Part 01/27/2009 LINDA SIGALA MANUFACTURING INSPECTOR, DAMIEN N 836.50 Closed Dislocation Of Knee Unspecified Part 01/27/2009 MANJINDER MANUFACTURING INSPECTOR, RENAN R 836.50 Closed Dislocation Of Knee Unspecified Part 01/27/2009 WHYTE DO, ADILIA K 836.50 Closed Dislocation Of Knee Unspecified Part 01/27/2009 BRIAN DDS, WARREN Kuo 836.50 Closed Dislocation Of Knee Unspecified Part 01/27/2009 WHYTE DO, ADILIA K 836.50 Closed Dislocation Of Knee Unspecified Part 01/27/2009 WHYTE DO, ADILIA K 836.50 Closed Dislocation Of Knee Unspecified Part 01/27/2009 WON FIELD SERVICE REPRESENTATIVE, MARIUSZ Qiu 836.50 Closed Dislocation Of Knee Unspecified Part 01/27/2009 APOORVA PHD, DANIEL A 836.50 Closed Dislocation Of Knee Unspecified Part 01/27/2009 RAVEN MANUFACTURING INSPECTOR, ANSHUL R 836.50 Closed Dislocation Of Knee Unspecified Part 01/27/2009 YOVANI PEREZN, VONNIE A 836.50 Closed Dislocation Of Knee Unspecified Part 01/27/2009 WHYTE DO, ADILIA K 836.50 Closed Dislocation Of Knee Unspecified Part 01/27/2009 VENKATESH PEREZN, EMILY Garcia 836.50 Closed Dislocation Of Knee Unspecified Part 01/27/2009 HOLLY KEVIN, RONNIE E 836.50 Closed Dislocation Of Knee Unspecified Part 01/27/2009 YOVANI PEREZN, VONNEI A 836.50 Closed Dislocation Of Knee Unspecified [...] Knee Unspecified Part 01/27/2009 RENAN DUNBAR APRN R 836.50 Closed Dislocation Of Knee Unspecified [...] Of Unspecified Site Other Staphylococcus 02/09/2009 BRIAN SANCHEZS, MAX Fraga 041.19 Staphylococcus Infection In Conditions Classified Elsewhere And Of Unspecified Site Other Staphylococcus 02/09/2009 WHYTE DO, ADILIA K 041.19 Staphylococcus Infection In Conditions Classified Elsewhere And Of Unspecified Site Other Staphylococcus 02/09/2009 MCKEON CASHERO MANUFACTURING INSPECTOR, DAMIEN N 041.19 Staphylococcus Infection In Conditions Classified Elsewhere And Of Unspecified Site Other Staphylococcus 02/09/2009 WHYTE DO, ADILIA K 041.19 Staphylococcus Infection In Conditions Classified Elsewhere And Of Unspecified Site Other Staphylococcus 02/09/2009 MCKEON CASHERO MANUFACTURING INSPECTOR, DAMIEN N 041.19 Staphylococcus Infection In Conditions Classified Elsewhere And Of Unspecified Site Other Staphylococcus 02/09/2009 MANJINDER PEREZN, RENAN R 041.19 Staphylococcus Infection In Conditions [...] And Of Unspecified Site Other Staphylococcus 02/09/2009 MARIUSZ UPTON LCPC 041.19 Staphylococcus Infection In Conditions Classified Elsewhere And Of Unspecified Site Other Staphylococcus 02/09/2009 APOORVA RAMIREZ, DANIEL Pickens 041.19 Staphylococcus Infection In Conditions Classified Elsewhere And Of Unspecified Site Other Staphylococcus 02/09/2009 RAVEN MANUFACTURING INSPECTOR, ANSHUL R 041.19 Staphylococcus Infection In Conditions Classified Elsewhere And Of Unspecified Site Other Staphylococcus 02/09/2009 YOVANI TOVAR, VONNIE A 041.19 Staphylococcus Infection In Conditions [...] And Of Unspecified Site Other Staphylococcus 02/09/2009 PATO DUEÑAS ADILIA K 041.19 Staphylococcus Infection In Conditions [...] Site Other Staphylococcus 02/09/2009 RENAN DUNBAR APRN 041.19 Staphylococcus Infection In Conditions Classified Elsewhere And Of Unspecified Site Other Staphylococcus 06/16/2009 PATO DUEÑAS, ADILIA K 691.8 Dermatitis Atopic Eczema 06/16/2009 691.8 Dermatitis Atopic Eczema 06/16/2009 691.8 Dermatitis Atopic Eczema 06/16/2009 WHYTE DO, ADILIA K 691.8 Dermatitis Atopic Eczema 06/16/2009 WHYTE DO, ADILIA K 691.8 Dermatitis Atopic Eczema 06/16/2009 691.8 Dermatitis Atopic Eczema 06/16/2009 691.8 Dermatitis Atopic Eczema 06/16/2009 TIEN KIMBLE PA-C 691.8 Dermatitis Atopic Eczema 06/16/2009 CECY CARBAJAL [...] ADILIA K 691.8 Dermatitis Atopic Eczema 06/16/2009 OCTAVIA KIM APRNCY N 691.8 Dermatitis Atopic Eczema 06/16/2009 WHYTE DO, ADILIA K 691.8 Dermatitis Atopic Eczema 06/16/2009 LINDA SIGALA APRN, DAMIEN N 691.8 Dermatitis Atopic Eczema 06/16/2009 RENAN DUNBAR APRN R 691.8 Dermatitis Atopic Eczema 06/16/2009 WHYTE [...] R 691.8 Dermatitis Atopic Eczema 06/16/2009 YOVANI MANUFACTURING INSPECTOR, VONNIE A 691.8 Dermatitis Atopic Eczema 06/16/2009 WHYTE DO, ADILIA K 691.8 Dermatitis Atopic Eczema 06/16/2009 VENKATESH MANUFACTURING INSPECTOR, EMILY L 691.8 Dermatitis Atopic Eczema 06/16/2009 HOLLY KEVIN, RONNIE E 691.8 Dermatitis Atopic Eczema 06/16/2009 YOVANI MANUFACTURING INSPECTOR, VONNIE A 691.8 Dermatitis Atopic Eczema 06/16/2009 HOLLY KEVIN, RONNIE E 691.8 Dermatitis Atopic Eczema 06/16/2009 ZULEIKA DPM, CHRISTOPHER 691.8 Dermatitis Atopic Eczema 06/16/2009 YOVANI MANUFACTURING INSPECTOR, VONNIE A 691.8 Dermatitis Atopic Eczema 06/16/2009 [...] ADILIA K 691.8 Dermatitis Atopic Eczema 06/16/2009 RENAN DUNBAR APRN R 691.8 Dermatitis Atopic Eczema 02/21/2010 WHYTE DO, ADILIA K 296.22 MO DEPRESSIVE SINGLE MODERATE 02/21/2010 296.22 MO DEPRESSIVE SINGLE MODERATE 02/21/2010 296.22 MO DEPRESSIVE SINGLE MODERATE 02/21/2010 WHYTE DO, ADILIA K 296.22 MO DEPRESSIVE SINGLE MODERATE 02/21/2010 WHYTE DO, ADILIA K 296.22 MO DEPRESSIVE SINGLE MODERATE 02/21/2010 296.22 MO DEPRESSIVE SINGLE MODERATE 02/21/2010 296.22 MO DEPRESSIVE SINGLE MODERATE 02/21/2010 TIEN KIMBLE PA-C 296.22 MO DEPRESSIVE SINGLE MODERATE [...] MO DEPRESSIVE SINGLE MODERATE 02/21/2010 MCKEON CASHERO MANUFACTURING INSPECTOR, DAMIEN N 296.22 MO DEPRESSIVE SINGLE MODERATE 02/21/2010 WHYTE DO, ADILIA K 296.22 MO DEPRESSIVE SINGLE MODERATE 02/21/2010 MCKEON CASHERO MANUFACTURING INSPECTOR, DAMIEN N 296.22 MO DEPRESSIVE SINGLE MODERATE 02/21/2010 RENAN DUNBAR APRN R 296.22 MO DEPRESSIVE SINGLE MODERATE 02/21/2010 WHYTE DO, ADILIA K 296.22 MO DEPRESSIVE SINGLE MODERATE 02/21/2010 WHITE DDS, WARREN D 296.22 MO DEPRESSIVE SINGLE MODERATE 02/21/2010 WHYTE DO, ADILIA K 296.22 MO DEPRESSIVE SINGLE MODERATE 02/21/2010 WHYTE DO, ADILIA K 296.22 MO DEPRESSIVE SINGLE MODERATE 02/21/2010 WON SIGALAPC, MARIUSZ B 296.22 MO DEPRESSIVE SINGLE MODERATE 02/21/2010 APOORVA PHD, DANIEL A 296.22 MO DEPRESSIVE SINGLE MODERATE 02/21/2010 ANSHUL CARBAJAL APRN R 296.22 MO DEPRESSIVE SINGLE MODERATE 02/21/2010 YOVANI TOVAR VONNIE A 296.22 MO DEPRESSIVE SINGLE MODERATE 02/21/2010 WHYTE DO, ADILIA K 296.22 MO DEPRESSIVE SINGLE MODERATE 02/21/2010 EMILY RIDDLE APRN L 296.22 MO DEPRESSIVE SINGLE MODERATE 02/21/2010 RONNIE BARRERA RN E 296.22 MO DEPRESSIVE SINGLE MODERATE 02/21/2010 VEL PINA APRNIDI A 296.22 MO DEPRESSIVE SINGLE MODERATE 02/21/2010 RONNIE BARRERA RN E 296.22 MO DEPRESSIVE SINGLE MODERATE 02/21/2010 ZULEIKA DPM, CHRISTOPHRE 296.22 MO DEPRESSIVE SINGLE MODERATE 02/21/2010 VONNIE PINA APRN 296.22 MO DEPRESSIVE SINGLE MODERATE 02/21/2010 WHYTE DO, ADILIA K 296.22 MO DEPRESSIVE SINGLE MODERATE 02/21/2010 HOLLY KEVIN, RONNIE E 296.22 MO DEPRESSIVE SINGLE MODERATE 02/21/2010 ZULEIKA DPM, CHRISTOPHER 296.22 MO DEPRESSIVE SINGLE MODERATE 02/21/2010 HOLLY KEVIN, RONNIE E 296.22 MO DEPRESSIVE SINGLE MODERATE 02/21/2010 WHYTE DO, ADILIA K 296.22 MO DEPRESSIVE SINGLE MODERATE 02/21/2010 ZULEIKA DPM, CHRISTOPHER 296.22 MO DEPRESSIVE SINGLE MODERATE 02/21/2010 ZULEIKA DPM, CHRISTOPHER 296.22 MO DEPRESSIVE SINGLE MODERATE 02/21/2010 WHYTE DO, ADILIA K 296.22 MO DEPRESSIVE SINGLE MODERATE 02/21/2010 RENAN DUNBAR APRN 296.22 MO DEPRESSIVE SINGLE MODERATE 07/31/2011 WHYTE DO, ADILIA K 296.90 MOOD DISORDER NOS 07/31/2011 296.90 MOOD DISORDER NOS 07/31/2011 296.90 MOOD DISORDER NOS 07/31/2011 WHYTE DO, ADILIA K 296.90 MOOD DISORDER NOS 07/31/2011 WHYTE DO, ADILIA K 296.90 MOOD DISORDER NOS 07/31/2011 296.90 MOOD DISORDER NOS 07/31/2011 296.90 MOOD DISORDER NOS 07/31/2011 TIEN KIMBLE PA-C 296.90 MOOD DISORDER NOS 07/31/2011 ANSHUL CARBAJAL APRN 296.90 MOOD DISORDER NOS 07/31/2011 WHYTE DO, ADILIA K 296.90 MOOD DISORDER NOS 07/31/2011 296.90 MOOD DISORDER NOS 07/31/2011 296.90 MOOD DISORDER NOS 07/31/2011 296.90 MOOD DISORDER NOS 07/31/2011 296.90 MOOD DISORDER NOS 07/31/2011 296.90 MOOD DISORDER NOS 07/31/2011 296.90 MOOD DISORDER NOS 07/31/2011 296.90 MOOD DISORDER NOS 07/31/2011 296.90 MOOD DISORDER NOS 07/31/2011 296.90 MOOD DISORDER NOS 07/31/2011 GORDON OG DDS 296.90 MOOD DISORDER NOS 07/31/2011 MAX TORRES DDS 296.90 MOOD DISORDER NOS 07/31/2011 WHYTE DO, ADILIA K 296.90 MOOD DISORDER NOS 07/31/2011 MCKEON CASHERO MANUFACTURING INSPECTOR, DAMIEN N 296.90 MOOD DISORDER NOS 07/31/2011 WHYTE DO, ADILIA K 296.90 MOOD DISORDER NOS 07/31/2011 LINDA SIGALA MANUFACTURING INSPECTOR, DAMIEN N 296.90 MOOD DISORDER NOS 07/31/2011 MANJINDER MANUFACTURING INSPECTOR, RENAN R 296.90 MOOD DISORDER NOS 07/31/2011 WHYTE DO, ADILIA K 296.90 MOOD DISORDER NOS 07/31/2011 WHITE DDS, WARREN D 296.90 MOOD DISORDER NOS 07/31/2011 WHYTE DO, ADILIA K 296.90 MOOD DISORDER NOS 07/31/2011 WHYTE DO, ADILIA K 296.90 MOOD DISORDER NOS 07/31/2011 WON CARMONA, MARIUSZ B 296.90 MOOD DISORDER NOS 07/31/2011 APOORVA RAMIREZ, DANIEL A 296.90 MOOD DISORDER NOS 07/31/2011 CECY CARBAJAL APRNIA R 296.90 MOOD DISORDER NOS 07/31/2011 YOVANI PEREZN, VONNIE A 296.90 MOOD DISORDER NOS 07/31/2011 WHYTE DO, ADILIA K 296.90 MOOD DISORDER NOS 07/31/2011 VENKATESH TOVAR, EMILY L 296.90 MOOD DISORDER NOS 07/31/2011 HOLLY KEVIN, RONNIE E 296.90 MOOD DISORDER NOS 07/31/2011 YOVANI TOVAR, VONNIE A 296.90 MOOD DISORDER NOS 07/31/2011 HOLLY KEVIN, RONNIE E 296.90 MOOD DISORDER NOS 07/31/2011 ZULEIKA DPM, CHRISTOPHER 296.90 MOOD DISORDER NOS 07/31/2011 YOVANI PEREZN, VONNIE A 296.90 MOOD DISORDER NOS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 796.2 Elevated Blood Pressure Reading Without Diagnosis Of Hypertension 12/02/2011 796.2 Elevated Blood Pressure Reading Without Diagnosis Of Hypertension 12/02/2011 796.2 Elevated Blood Pressure Reading Without Diagnosis Of Hypertension 12/02/2011 TIEN KIMBLE PA-C 796.2 Elevated Blood Pressure Reading Without Diagnosis Of Hypertension 12/02/2011 ANSHUL CARBAJAL APRN 796.2 Elevated Blood Pressure Reading Without Diagnosis Of Hypertension 12/02/2011 WHYTE ADILIA DUEÑAS K 796.2 Elevated Blood Pressure Reading Without [...] Pressure Reading Without Diagnosis Of Hypertension 12/02/2011 LENKA DDS, GORDON B 796.2 Elevated Blood Pressure Reading Without Diagnosis Of Hypertension 12/02/2011 BRIAN DDS, MAX Fraga 796.2 Elevated Blood Pressure Reading Without Diagnosis Of Hypertension 12/02/2011 WHYTE DO, ADILIA K 796.2 Elevated Blood Pressure Reading Without Diagnosis Of Hypertension 12/02/2011 OCTAVIA KIM APRNCY N 796.2 Elevated Blood Pressure Reading Without Diagnosis Of Hypertension 12/02/2011 WHYTE DO, ADILIA K 796.2 Elevated Blood Pressure Reading Without Diagnosis Of Hypertension 12/02/2011 LINDA SIGALA APRN DAMIEN N 796.2 Elevated Blood Pressure Reading Without Diagnosis Of Hypertension 12/02/2011 RENAN DUNBAR APRN R 796.2 Elevated Blood Pressure Reading Without Diagnosis Of Hypertension 12/02/2011 WHYTE DO, ADILIA K 796.2 Elevated Blood Pressure Reading Without Diagnosis Of Hypertension 12/02/2011 BRIAN SANCHEZS, WARREN Kuo 796.2 Elevated Blood Pressure Reading Without Diagnosis Of Hypertension 12/02/2011 WHYTE DO, ADILIA K 796.2 Elevated Blood Pressure Reading Without Diagnosis Of Hypertension 12/02/2011 WHYTE DO, ADILIA K 796.2 Elevated Blood Pressure Reading Without Diagnosis Of Hypertension 12/02/2011 MARIUSZ UPTON LCPC B 796.2 Elevated Blood Pressure Reading Without [...] Diagnosis Of Hypertension 12/02/2011 EMILY RIDDLE APRN 796.2 Elevated Blood Pressure Reading Without Diagnosis Of Hypertension 12/02/2011 HOLLY KEVIN, RONNIE E 796.2 Elevated Blood Pressure Reading Without Diagnosis Of Hypertension 12/02/2011 VONNIE PINA APRN A 796.2 Elevated Blood Pressure Reading Without Diagnosis Of Hypertension 12/02/2011 HOLLY KEVIN, RONNIE E 796.2 Elevated Blood Pressure Reading Without Diagnosis Of Hypertension 12/02/2011 ZULEIKA DPM, CHRISTOPHER 796.2 Elevated Blood Pressure Reading Without Diagnosis Of Hypertension 12/02/2011 VONNIE PINA APRN A 796.2 Elevated Blood Pressure Reading Without Diagnosis Of Hypertension 12/02/2011 ADILIA WHYTE DO K 796.2 Elevated Blood Pressure Reading Without Diagnosis Of Hypertension 12/02/2011 HOLLY KEVIN, RONNIE E 796.2 Elevated Blood Pressure Reading Without Diagnosis Of Hypertension 12/02/2011 ZULEIKA DPM, CHRISTOPHER 796.2 Elevated Blood Pressure Reading Without Diagnosis Of Hypertension 12/02/2011 HOLLY KEVIN, RONNIE E 796.2 Elevated Blood Pressure Reading Without Diagnosis Of Hypertension 12/02/2011 ADILIA WHYTE DO K 796.2 Elevated Blood Pressure Reading Without Diagnosis Of Hypertension 12/02/2011 ZULEIKA DPM, CHRISTOPHER 796.2 Elevated Blood Pressure Reading Without Diagnosis Of Hypertension 12/02/2011 ZULEIKA DPM, CHRISTOPHER 796.2 Elevated Blood Pressure Reading Without Diagnosis Of Hypertension 12/02/2011 WHYTE DOJOSUEA K 796.2 Elevated Blood Pressure Reading Without Diagnosis Of Hypertension 12/02/2011 RENAN DUNBAR APRN 796.2 Elevated Blood Pressure Reading Without Diagnosis Of Hypertension 01/07/2012 ADILIA WHYTE DO K V24.2 F/U, ROUTINE 01/07/2012 V24.2 F/U, ROUTINE 01/07/2012 V24.2 F/U, ROUTINE 01/07/2012 ADILIA WHYTE DO K V24.2 F/U, ROUTINE 01/07/2012 WHYTE ADILIA DUEÑAS K V24.2 F/U, ROUTINE 01/07/2012 V24.2 F/U, ROUTINE 01/07/2012 V24.2 F/U, ROUTINE 01/07/2012 TIEN KIMBLE PA-C V24.2 F/U, ROUTINE 01/07/2012 ANSHUL CARBAJAL APRN V24.2 F/U, ROUTINE 01/07/2012 WHYTE DO, ADILIA K V24.2 F/U, ROUTINE 01/07/2012 V24.2 F/U, ROUTINE 01/07/2012 V24.2 F/U, ROUTINE 01/07/2012 V24.2 F/U, ROUTINE 01/07/2012 V24.2 F/U, ROUTINE 01/07/2012 V24.2 F/U, ROUTINE 01/07/2012 V24.2 F/U, ROUTINE 01/07/2012 V24.2 F/U, ROUTINE 01/07/2012 V24.2 F/U, ROUTINE 01/07/2012 V24.2 F/U, ROUTINE 01/07/2012 LENKA SANCHEZS, GORDON Qiu V24.2 F/U, ROUTINE 01/07/2012 BRIAN SANCHEZS, MAX Fraga V24.2 F/U, ROUTINE 01/07/2012 ADILIA WHYTE DO K V24.2 F/U, ROUTINE 01/07/2012 DAMIEN KIM APRN N V24.2 F/U, ROUTINE 01/07/2012 WHYTE DO, ADILIA K V24.2 F/U, ROUTINE 01/07/2012 DAMIEN KIM APRN N V24.2 F/U, ROUTINE 01/07/2012 RENAN DUNBAR APRN V24.2 F/U, ROUTINE 01/07/2012 WHYTE DO, ADILIA K V24.2 F/U, ROUTINE 01/07/2012 BRIAN TOSCANO, WARREN Kuo V24.2 F/U, ROUTINE 01/07/2012 WHYTE DO, ADILIA K V24.2 F/U, ROUTINE 01/07/2012 WHYTE DO, ADILIA K V24.2 F/U, ROUTINE 01/07/2012 MARIUSZ UPTON LCPC V24.2 F/U, ROUTINE 01/07/2012 APOORVA RAMIREZ, DANIEL Pickens V24.2 F/U, ROUTINE 01/07/2012 ANSHUL CARBAJAL APRN V24.2 F/U, ROUTINE 01/07/2012 VONNIE PINA APRN V24.2 F/U, ROUTINE 01/07/2012 ADILIA WHYTE DO V24.2 F/U, ROUTINE 01/07/2012 VENKATESH MANUFACTURING INSPECTOR, EMILY L V24.2 F/U, ROUTINE 01/07/2012 RONNIE BARRERA RN V24.2 F/U, ROUTINE 01/07/2012 YOVANI TOVAR, VONNIE A V24.2 F/U, ROUTINE 01/07/2012 RONNIE BARRERA RN V24.2 F/U, ROUTINE 01/07/2012 ZULEIKA DPM, CHRISTOPHER V24.2 F/U, ROUTINE 01/07/2012 YOVANI TOVAR, VONNIE A V24.2 F/U, ROUTINE 01/07/2012 ADILIA WHYTE DO [...] V24.2 F/U, ROUTINE 01/29/2012 ADILIA WHYTE DO 354.0 CARPAL TUNNEL SYNDROME 01/29/2012 ADIILA WHYTE DO 619.0 Urinary-genital Tract Fistula Female 01/29/2012 354.0 CARPAL TUNNEL SYNDROME 01/29/2012 619.0 Urinary-genital Tract Fistula Female 01/29/2012 354.0 CARPAL TUNNEL SYNDROME 01/29/2012 619.0 Urinary-genital Tract Fistula Female 01/29/2012 ADIILA WHYTE DO 354.0 CARPAL TUNNEL SYNDROME 01/29/2012 ADILIA WHYTE DO 619.0 Urinary-genital Tract Fistula Female 01/29/2012 ADILIA WHYTE DO 354.0 CARPAL TUNNEL SYNDROME 01/29/2012 ADILIA WHYTE DO 619.0 Urinary-genital Tract Fistula Female 01/29/2012 354.0 CARPAL TUNNEL SYNDROME 01/29/2012 619.0 Urinary-genital Tract Fistula Female 01/29/2012 354.0 CARPAL TUNNEL SYNDROME 01/29/2012 619.0 Urinary-genital Tract Fistula Female 01/29/2012 SHYANNE HER, TIEN Fernandez 354.0 CARPAL TUNNEL SYNDROME 01/29/2012 TIEN KIMBLE PA-C 619.0 Urinary-genital Tract Fistula Female 01/29/2012 ANSHUL CARBAJAL APRN R 354.0 CARPAL TUNNEL SYNDROME 01/29/2012 ANSHUL CARBAJAL APRN R 619.0 Urinary-genital Tract Fistula Female 01/29/2012 PATO DUEÑAS ADILIA K 354.0 CARPAL TUNNEL SYNDROME 01/29/2012 PATO DUEÑASDAILIA 619.0 Urinary-genital Tract Fistula Female 01/29/2012 354.0 CARPAL TUNNEL SYNDROME 01/29/2012 619.0 Urinary-genital Tract Fistula Female 01/29/2012 354.0 CARPAL TUNNEL SYNDROME 01/29/2012 619.0 Urinary-genital Tract Fistula Female 01/29/2012 354.0 CARPAL TUNNEL SYNDROME 01/29/2012 619.0 Urinary-genital Tract Fistula Female 01/29/2012 354.0 CARPAL TUNNEL SYNDROME 01/29/2012 619.0 Urinary-genital Tract Fistula Female 01/29/2012 354.0 CARPAL TUNNEL SYNDROME 01/29/2012 619.0 Urinary-genital Tract Fistula Female 01/29/2012 354.0 CARPAL TUNNEL SYNDROME 01/29/2012 619.0 Urinary-genital Tract Fistula Female 01/29/2012 354.0 CARPAL TUNNEL SYNDROME 01/29/2012 619.0 Urinary-genital Tract Fistula Female 01/29/2012 354.0 CARPAL TUNNEL SYNDROME 01/29/2012 619.0 Urinary-genital Tract Fistula Female 01/29/2012 354.0 CARPAL TUNNEL SYNDROME 01/29/2012 619.0 Urinary-genital Tract Fistula Female 01/29/2012 GORDON OG DDS 354.0 CARPAL TUNNEL SYNDROME 01/29/2012 GORDON OG DDS 619.0 Urinary-genital Tract Fistula Female 01/29/2012 MAX TORRES DDS 354.0 CARPAL TUNNEL SYNDROME 01/29/2012 WHITE DDS, MAX J 619.0 Urinary-genital Tract Fistula Female 01/29/2012 WHYTE DO, ADILIA K 354.0 CARPAL TUNNEL SYNDROME 01/29/2012 WHYTE DO, ADILIA K 619.0 Urinary-genital Tract Fistula Female 01/29/2012 LINDA JOHNSONNIK MANUFACTURING INSPECTOR, DAMIEN N 354.0 CARPAL TUNNEL SYNDROME 01/29/2012 MCKEON CASHERO MANUFACTURING INSPECTOR, DAMIEN N 619.0 Urinary-genital Tract Fistula Female 01/29/2012 WHYTE DO, ADILIA K 354.0 CARPAL TUNNEL SYNDROME 01/29/2012 WHYTE DO, ADILIA K 619.0 Urinary-genital Tract Fistula Female 01/29/2012 MCKEON ALEXERO MANUFACTURING INSPECTOR, DAMIEN N 354.0 CARPAL TUNNEL SYNDROME 01/29/2012 MCKEON CASHERO MANUFACTURING INSPECTOR, DAMIEN N 619.0 Urinary-genital Tract Fistula Female 01/29/2012 MANJINDER PEREZN, RENAN R 354.0 CARPAL TUNNEL SYNDROME 01/29/2012 MANJINDER PEREZN, RENAN R 619.0 Urinary-genital Tract Fistula Female [...] K 619.0 Urinary-genital Tract Fistula Female 01/29/2012 MARIUSZ UPTON LCPC B 354.0 CARPAL TUNNEL SYNDROME 01/29/2012 MARIUSZ UPTON LCPC 619.0 Urinary-genital Tract Fistula Female 01/29/2012 DANIEL GUERIN PHD 354.0 CARPAL TUNNEL SYNDROME 01/29/2012 APOORVA RAMIREZ, DANIEL Pickens 619.0 Urinary-genital Tract Fistula Female 01/29/2012 ANSHUL CARBAJAL APRN R 354.0 CARPAL TUNNEL SYNDROME 01/29/2012 RAVEN TOVAR, ANSHUL R 619.0 Urinary-genital Tract Fistula Female 01/29/2012 YOVANI PEREZN, VONNIE A 354.0 CARPAL TUNNEL SYNDROME 01/29/2012 YOVANI MANUFACTURING INSPECTOR, VONNIE A 619.0 Urinary-genital Tract Fistula Female 01/29/2012 WHYTE DO, ADILIA K 354.0 CARPAL TUNNEL SYNDROME 01/29/2012 WHYTE DO, ADILIA K 619.0 Urinary-genital Tract Fistula Female 01/29/2012 VENKATESH MANUFACTURING INSPECTOR, EMILY L 354.0 CARPAL TUNNEL SYNDROME 01/29/2012 NOEMIL MANUFACTURING INSPECTOR, EMILY L 619.0 Urinary-genital Tract Fistula Female 01/29/2012 RONNIE BARRERA RN 354.0 CARPAL TUNNEL SYNDROME 01/29/2012 RONNIE BARRERA RN E 619.0 Urinary-genital Tract Fistula Female 01/29/2012 YOVANI PEREZN, VONNIE A 354.0 CARPAL TUNNEL SYNDROME 01/29/2012 YOVANI PEREZN, VONNIE A 619.0 Urinary-genital Tract Fistula Female 01/29/2012 RONNIE BARRERA RN E 354.0 CARPAL TUNNEL SYNDROME 01/29/2012 RONNIE BARRERA RN E 619.0 Urinary-genital Tract Fistula Female 01/29/2012 ZULEIKA DPM, CHRISTOPHER 354.0 CARPAL TUNNEL SYNDROME 01/29/2012 ZULEIKA DPM, CHRISTOPHER 619.0 Urinary-genital Tract Fistula Female 01/29/2012 YOVANI PEREZN, VONNIE A 354.0 CARPAL TUNNEL SYNDROME 01/29/2012 YOVANI PEREZN, VONNIE A 619.0 Urinary-genital Tract Fistula Female 01/29/2012 WHYTE DO, ADILIA K 354.0 CARPAL TUNNEL SYNDROME 01/29/2012 WHYTE DO, ADILIA K 619.0 Urinary-genital Tract Fistula Female 01/29/2012 RONNIE BARRERA RN E 354.0 CARPAL TUNNEL SYNDROME 01/29/2012 RONNIE BARRERA RN E 619.0 Urinary-genital Tract Fistula Female 01/29/2012 ZULEIKA DPM, CHRISTOPHER 354.0 CARPAL TUNNEL SYNDROME 01/29/2012 ZULEIKA DPM, CHRISTOPHER 619.0 Urinary-genital Tract Fistula Female 01/29/2012 RICK BARRERA RNISTA E 354.0 CARPAL TUNNEL SYNDROME 01/29/2012 HOLLY KEVIN RONNIE Shanks 619.0 Urinary-genital Tract Fistula Female 01/29/2012 PATO DUEÑASADILIA K 354.0 CARPAL TUNNEL SYNDROME 01/29/2012 PATO DUEÑAS ADILIA K 619.0 Urinary-genital Tract Fistula Female 01/29/2012 ZULEIKA DPM, CHRISTOPHER 354.0 CARPAL TUNNEL SYNDROME 01/29/2012 ZULEIKA DPM, CHRISTOPHER 619.0 Urinary-genital Tract Fistula Female 01/29/2012 ZULEIKA DPM, CHRISTOPHER 354.0 CARPAL TUNNEL SYNDROME 01/29/2012 ZULEIKA DPM, CHRISTOPHER 619.0 Urinary-genital Tract Fistula Female 01/29/2012 JOSUE WHYTE DOA K 354.0 CARPAL TUNNEL SYNDROME 01/29/2012 JOSUE WHYTE DOA K 619.0 Urinary-genital Tract Fistula Female 01/29/2012 MANJINDER MANUFACTURING INSPECTOR, RENAN R 354.0 CARPAL TUNNEL SYNDROME 01/29/2012 MANJINDER MANUFACTURING INSPECTOR, RENAN R 619.0 Urinary-genital Tract Fistula Female [...] V76.2 CERVICAL CANCER SCREENING (PAP SMEAR) 03/03/2012 GORDON OG DDS V25.02 CONTRACEPTION - ANY METHOD 03/03/2012 LENKA SANCHEZSGORDON V76.2 CERVICAL CANCER SCREENING (PAP SMEAR) 03/03/2012 MAX TORRES DDS V25.02 CONTRACEPTION - ANY METHOD 03/03/2012 MAX TORRES DDS V76.2 CERVICAL CANCER SCREENING (PAP SMEAR) 03/03/2012 ADILIA WHYTE DO V25.02 CONTRACEPTION - ANY METHOD 03/03/2012 ADILIA WHYTE DO V76.2 CERVICAL CANCER SCREENING (PAP SMEAR) 03/03/2012 MCKOEN CASHERO MANUFACTURING INSPECTOR, DAMIEN N V25.02 CONTRACEPTION - ANY METHOD 03/03/2012 MCKEONDAMIEN GALLOWAY APRN N V76.2 CERVICAL CANCER SCREENING (PAP SMEAR) 03/03/2012 ADILIA WHYTE DO K V25.02 CONTRACEPTION - ANY METHOD 03/03/2012 ADILIA WHYTE DO K V76.2 CERVICAL CANCER SCREENING (PAP SMEAR) 03/03/2012 LINDA JOHNSONDAMIEN ZARAGOZA APRN N V25.02 CONTRACEPTION - ANY METHOD 03/03/2012 MCKEON ALEXDAMIEN ZARAGOZA APRN N V76.2 CERVICAL CANCER SCREENING (PAP SMEAR) 03/03/2012 PAIGE DUNBAR APRNINA R V25.02 CONTRACEPTION - ANY METHOD 03/03/2012 MANJINDER TOVAR RENAN R V76.2 CERVICAL CANCER SCREENING (PAP SMEAR) 03/03/2012 ADILIA WHYTE DO V25.02 CONTRACEPTION - ANY METHOD 03/03/2012 ADILIA WHYTE DO K V76.2 CERVICAL CANCER SCREENING (PAP SMEAR) 03/03/2012 WARREN TORRES DDS V25.02 CONTRACEPTION - ANY METHOD 03/03/2012 WARREN TORRES DDS V76.2 CERVICAL CANCER SCREENING (PAP [...] - ANY METHOD 03/03/2012 VONNIE PINA APRN A V76.2 CERVICAL CANCER SCREENING (PAP SMEAR) 03/03/2012 ADILIA WHYTE DO V25.02 CONTRACEPTION - ANY METHOD 03/03/2012 ADILIA WHYTE DO V76.2 CERVICAL CANCER SCREENING (PAP SMEAR) 03/03/2012 VENKATESH EMILY TOVAR V25.02 CONTRACEPTION - ANY METHOD 03/03/2012 VENKATESH EMILY TOVAR V76.2 CERVICAL CANCER SCREENING (PAP SMEAR) 03/03/2012 [...] V76.2 CERVICAL CANCER SCREENING (PAP SMEAR) 03/03/2012 SAUL TO DPMIN V25.02 CONTRACEPTION - ANY METHOD 03/03/2012 SAUL TO DPMIN V76.2 CERVICAL CANCER SCREENING (PAP SMEAR) 03/03/2012 [...] CERVICAL CANCER SCREENING (PAP SMEAR) 03/03/2012 ZULEIKA DPRebecca, CHRISTOPHER V25.02 CONTRACEPTION - ANY METHOD 03/03/2012 ZULEIKA DPRebecca CHRISTOPHER V76.2 CERVICAL CANCER SCREENING (PAP SMEAR) 03/03/2012 RONNIE BARRERA RN V25.02 CONTRACEPTION - ANY METHOD 03/03/2012 RONNIE BARRERA RN V76.2 CERVICAL CANCER SCREENING (PAP SMEAR) 03/03/2012 WHYTE DO, ADILIA K V25.02 CONTRACEPTION - ANY METHOD 03/03/2012 WHYTE ADILIA DUEÑAS K V76.2 CERVICAL CANCER SCREENING (PAP SMEAR) [...] SCREENING (PAP SMEAR) 03/03/2012 RENAN DUNBAR APRN R V25.02 CONTRACEPTION - ANY METHOD 03/03/2012 MANJINDER TOVAR RENAN R V76.2 CERVICAL CANCER SCREENING (PAP SMEAR) 03/19/2012 ADILIA WHYTE DO K 401.1 HYPERTENSION, BENIGN ESSENTIAL 03/19/2012 ADILIA WHYTE DO K 784.0 HEADACHE 03/19/2012 401.1 HYPERTENSION, BENIGN ESSENTIAL 03/19/2012 784.0 HEADACHE 03/19/2012 401.1 HYPERTENSION, BENIGN ESSENTIAL 03/19/2012 784.0 HEADACHE 03/19/2012 ADILIA WHYTE DO K 401.1 HYPERTENSION, BENIGN ESSENTIAL 03/19/2012 JOSUE WHYTE DOA K 784.0 HEADACHE 03/19/2012 ADILIA WHYTE DO [...] R 784.0 HEADACHE 03/19/2012 ADILIA WHYTE DO K [...] MAX J 784.0 HEADACHE 03/19/2012 WHYTE DO, ADILIA K 401.1 HYPERTENSION, BENIGN ESSENTIAL 03/19/2012 WHYTE DO, ADILIA K 784.0 HEADACHE 03/19/2012 MCKEONDAVID SIGALA APRN, DAMIEN N 401.1 HYPERTENSION, BENIGN ESSENTIAL 03/19/2012 LINDA SIGALA APRN, DAMIEN N 784.0 HEADACHE 03/19/2012 WHYTE DO, ADILIA K 401.1 HYPERTENSION, BENIGN ESSENTIAL 03/19/2012 WHYTE DO, ADILIA K 784.0 HEADACHE 03/19/2012 MCKEONDAVID SIGALA MANUFACTURING INSPECTOR, DAMIEN N 401.1 HYPERTENSION, BENIGN ESSENTIAL 03/19/2012 LINDA JOHNSONERO MANUFACTURING INSPECTOR, DAMIEN N 784.0 HEADACHE 03/19/2012 MANJINDER MANUFACTURING INSPECTOR, RENAN R 401.1 HYPERTENSION, BENIGN ESSENTIAL 03/19/2012 MANJINDER MANUFACTURING INSPECTOR, RENAN R 784.0 HEADACHE 03/19/2012 WHYTE DO, [...] DO, ADILIA K 784.0 HEADACHE 03/19/2012 WON SIGALAPC, MARIUSZ B 401.1 HYPERTENSION, BENIGN ESSENTIAL 03/19/2012 WON FIELD SERVICE REPRESENTATIVE, MARIUSZ B 784.0 HEADACHE 03/19/2012 APOORVA PHD, DANIEL A 401.1 HYPERTENSION, BENIGN ESSENTIAL 03/19/2012 APOORVA PHD, DANIEL A 784.0 HEADACHE 03/19/2012 RAVEN TOVAR, ANSHUL R 401.1 HYPERTENSION, BENIGN ESSENTIAL 03/19/2012 RAVEN TOVAR, ANSHUL R 784.0 HEADACHE 03/19/2012 VEL PINA APRNIDI A 401.1 HYPERTENSION, BENIGN ESSENTIAL 03/19/2012 YOVANI TOVAR, VONNIE A 784.0 HEADACHE 03/19/2012 WHYTE DO, ADILIA K 401.1 HYPERTENSION, BENIGN ESSENTIAL 03/19/2012 WHYTE DO, ADILIA K 784.0 HEADACHE 03/19/2012 MADL MANUFACTURING INSPECTOR, EMILY L 401.1 HYPERTENSION, BENIGN ESSENTIAL 03/19/2012 MADL MANUFACTURING INSPECTOR, EMILY L 784.0 HEADACHE 03/19/2012 HOLLY KEVIN, RONNIE E 401.1 HYPERTENSION, BENIGN ESSENTIAL 03/19/2012 HOLLY KEVIN, RONNIE E 784.0 HEADACHE 03/19/2012 YOVANI TOVAR, VONNIE A 401.1 HYPERTENSION, BENIGN ESSENTIAL 03/19/2012 YOVANI MANUFACTURING INSPECTOR, VONNIE A 784.0 HEADACHE 03/19/2012 HOLLY KEVIN, RONNIE E 401.1 HYPERTENSION, BENIGN ESSENTIAL 03/19/2012 HOLLY KEVIN, RONNIE E 784.0 HEADACHE 03/19/2012 ZULEIKA DPM, CHRISTOPHER 401.1 HYPERTENSION, BENIGN ESSENTIAL 03/19/2012 ZULEIKA DPM, CHRISTOPHER 784.0 HEADACHE 03/19/2012 YOVANI TOVAR, VONNIE A 401.1 HYPERTENSION, BENIGN ESSENTIAL 03/19/2012 VONNIE PINA APRN 784.0 HEADACHE 03/19/2012 WHYTE DO, ADILIA K [...] KEVIN, RONNIE E 784.0 HEADACHE 03/19/2012 WHYTE DO, ADILIA K 401.1 HYPERTENSION, BENIGN ESSENTIAL 03/19/2012 WHYTE DO, ADILIA K 784.0 HEADACHE 03/19/2012 ZULEIKA DPM, CHRISTOPHER 401.1 HYPERTENSION, BENIGN ESSENTIAL 03/19/2012 ZULEIKA DPM, CHRISTOPHER 784.0 HEADACHE 03/19/2012 ZULEIKA DPM, CHRISTOPHER 401.1 HYPERTENSION, BENIGN ESSENTIAL 03/19/2012 ZULEIKA DPM, CHRISTOPHER 784.0 HEADACHE 03/19/2012 WHYTE DO, ADILIA K 401.1 HYPERTENSION, BENIGN ESSENTIAL 03/19/2012 WHYTE DO, ADILIA K 784.0 HEADACHE 03/19/2012 MANJINDER TOVAR, RENAN R 401.1 HYPERTENSION, BENIGN ESSENTIAL 03/19/2012 MANJINDER TOVAR, RENAN R 784.0 HEADACHE 05/14/2012 JOSUE WHYTE DOA K 079.99 VIRAL SYNDROME 05/14/2012 JOSUE WHYTE DOA K 244.1 OTHER POSTABLATIVE HYPOTHYROIDISM 05/14/2012 PATO DUEÑAS ADILIA K 381.81 Eustachian Tube Dysfunction 05/14/2012 079.99 VIRAL SYNDROME 05/14/2012 244.1 OTHER POSTABLATIVE HYPOTHYROIDISM 05/14/2012 381.81 Eustachian Tube Dysfunction 05/14/2012 079.99 VIRAL SYNDROME 05/14/2012 244.1 OTHER POSTABLATIVE HYPOTHYROIDISM 05/14/2012 381.81 Eustachian Tube Dysfunction 05/14/2012 WHYTE DO ADILIA K 079.99 VIRAL SYNDROME 05/14/2012 WHYTE DO ADILIA K 244.1 OTHER POSTABLATIVE HYPOTHYROIDISM 05/14/2012 ADILIA WHYTE DO 381.81 Eustachian Tube Dysfunction 05/14/2012 ADILIA WHYTE DO 079.99 Viral Syndrome 05/14/2012 ADILIA WHYTE DO 244.1 OTHER POSTABLATIVE HYPOTHYROIDISM 05/14/2012 ADILIA WHYTE DO 381.81 Eustachian Tube Dysfunction 05/14/2012 079.99 Viral Syndrome 05/14/2012 244.1 OTHER POSTABLATIVE HYPOTHYROIDISM 05/14/2012 381.81 Eustachian Tube Dysfunction 05/14/2012 079.99 Viral Syndrome 05/14/2012 244.1 OTHER POSTABLATIVE HYPOTHYROIDISM 05/14/2012 381.81 Eustachian Tube Dysfunction 05/14/2012 TIEN KIMBLE PA-C 079.99 Viral Syndrome 05/14/2012 TIEN KIMBLE PA-C 244.1 OTHER POSTABLATIVE HYPOTHYROIDISM 05/14/2012 TIEN KIMBLE PA-C 381.81 Eustachian Tube Dysfunction 05/14/2012 ANSHUL CARBAJAL APRN R 079.99 Viral Syndrome 05/14/2012 ANSHUL CRABAJAL APRN R 244.1 OTHER POSTABLATIVE HYPOTHYROIDISM 05/14/2012 ANSHUL CARBAJAL APRN R 381.81 Eustachian Tube Dysfunction 05/14/2012 ADILIA WHYTE DO 079.99 Viral Syndrome 05/14/2012 ADILIA WHYTE DO 244.1 OTHER POSTABLATIVE HYPOTHYROIDISM 05/14/2012 ADILIA WHYTE DO 381.81 Eustachian Tube Dysfunction 05/14/2012 079.99 Viral [...] MAX J 381.81 Eustachian Tube Dysfunction 05/14/2012 JOSUE WHYTE DOA K 079.99 Viral Syndrome 05/14/2012 JOSUE WHYTE DOA K 244.1 OTHER POSTABLATIVE HYPOTHYROIDISM 05/14/2012 ADILIA WHYTE DO K 381.81 Eustachian Tube Dysfunction 05/14/2012 DAMIEN KIM APRN N 079.99 Viral Syndrome 05/14/2012 DAMIEN KIM APRN N 244.1 OTHER POSTABLATIVE HYPOTHYROIDISM 05/14/2012 MCKEON CASHOCTAVIA ZARAGOZA APRNCY N 381.81 Eustachian Tube Dysfunction 05/14/2012 WHYTE JOSUE DUEÑASA K 079.99 Viral Syndrome 05/14/2012 WHYTE DO ADILIA K 244.1 OTHER POSTABLATIVE HYPOTHYROIDISM 05/14/2012 WHYTE DO ADILIA K 381.81 Eustachian Tube Dysfunction 05/14/2012 MCKEON CASHOCTAVIA ZARAGOZA APRNCY N 079.99 Viral Syndrome 05/14/2012 LINDA SIGALA MANUFACTURING INSPECTOR, DAMIEN N 244.1 OTHER POSTABLATIVE HYPOTHYROIDISM 05/14/2012 LINDA SIGALA MANUFACTURING INSPECTOR, DAMIEN N 381.81 Eustachian Tube Dysfunction 05/14/2012 MANJINDER MANUFACTURING INSPECTOR, RENAN R 079.99 Viral Syndrome 05/14/2012 MANJINDER MANUFACTURING INSPECTOR, RENAN R 244.1 OTHER POSTABLATIVE HYPOTHYROIDISM 05/14/2012 MANJINDER MANUFACTURING INSPECTOR, RENAN R 381.81 [place]ian Tube Dysfunction 05/14/2012 WHYTE DO, [...] ADILIA K 381.81 [place]ian Tube Dysfunction 05/14/2012 MARIUSZ UPTON LCPC B 079.99 Viral Syndrome 05/14/2012 MARIUSZ UPTON LCPC B 244.1 OTHER POSTABLATIVE HYPOTHYROIDISM 05/14/2012 WON CARMONA, MARIUSZ B 381.81 [place]ian Tube Dysfunction 05/14/2012 APOORVA PHD, DANIEL Pickens 079.99 Viral Syndrome 05/14/2012 APOORVA PHD, DANIEL Pickens 244.1 OTHER POSTABLATIVE HYPOTHYROIDISM 05/14/2012 APOORVA PHD, DANIEL Pickens 381.81 [place]ian Tube Dysfunction 05/14/2012 ANSHUL CARBAJAL APRN R 079.99 Viral Syndrome 05/14/2012 ANSHUL CARBAJAL APRN R 244.1 OTHER POSTABLATIVE HYPOTHYROIDISM 05/14/2012 RAVEN TOVAR ANSHUL R 381.81 [place]ian Tube Dysfunction 05/14/2012 YOVANI LA VONNIE A 079.99 Viral Syndrome 05/14/2012 YOVANI MANUFACTURING INSPECTOR, VONNIE A 244.1 OTHER POSTABLATIVE HYPOTHYROIDISM 05/14/2012 YOVANI PEREZN, VONNIE A 381.81 [place] Tube Dysfunction 05/14/2012 WHYTE DO, ADILIA K 079.99 Viral Syndrome 05/14/2012 WHYTE DO, ADILIA K 244.1 OTHER POSTABLATIVE HYPOTHYROIDISM 05/14/2012 WHYTE DO, ADILIA K 381.81 [place]ian Tube Dysfunction 05/14/2012 NOEMIL MANUFACTURING INSPECTOR, EMILY L 079.99 Viral Syndrome 05/14/2012 NEOMIL MANUFACTURING INSPECTOR, EMILY L 244.1 OTHER POSTABLATIVE HYPOTHYROIDISM 05/14/2012 NOEMIL MANUFACTURING INSPECTOR, EMILY L 381.81 [place]ian Tube Dysfunction 05/14/2012 HOLLY KEVIN, RONNIE E 079.99 Viral Syndrome 05/14/2012 HOLLY KEVIN, RONNIE E 244.1 OTHER POSTABLATIVE HYPOTHYROIDISM 05/14/2012 HOLLY KEVIN, RONNIE E 381.81 [place]ian Tube Dysfunction 05/14/2012 YOVANI LA VONNIE A 079.99 Viral Syndrome 05/14/2012 VEL PINA APRNIDI A 244.1 OTHER POSTABLATIVE HYPOTHYROIDISM 05/14/2012 YOVANIPop TOVAR VONNIE A 381.81 [place]ian Tube Dysfunction 05/14/2012 HOLLY KEVIN, RONNIE E 079.99 Viral Syndrome 05/14/2012 HOLLY KEVIN, RONNIE E 244.1 OTHER POSTABLATIVE HYPOTHYROIDISM 05/14/2012 HOLLY KEVIN, RONNIE E 381.81 [place]ian Tube Dysfunction 05/14/2012 ZULEIKA DPMSAULIN 079.99 Viral Syndrome 05/14/2012 ZULEIKA DPM, CHRISTOPHER 244.1 OTHER POSTABLATIVE HYPOTHYROIDISM 05/14/2012 ZULEIKA DPM, CHRISTOPHER 381.81 [place] Tube Dysfunction 05/14/2012 YOVANI LA VONNIE A 079.99 Viral Syndrome 05/14/2012 YOVANIPop TOVAR VONNIE A 244.1 OTHER POSTABLATIVE HYPOTHYROIDISM 05/14/2012 YOVANIPop TOVAR VONNIE A 381.81 [place]ian Tube Dysfunction 05/14/2012 WHYTE DO, ADILIA K 079.99 Viral Syndrome 05/14/2012 PATO DUEÑAS, ADILIA K 244.1 OTHER POSTABLATIVE HYPOTHYROIDISM 05/14/2012 WHYTE , ADILIA K 381.81 [place]ian Tube Dysfunction 05/14/2012 HOLLY KEVIN, RONNIE E 079.99 Viral Syndrome 05/14/2012 HOLLY KEVIN, RONNIE E 244.1 OTHER POSTABLATIVE HYPOTHYROIDISM 05/14/2012 HOLLY KEVIN, RONNIE E 381.81 [place] Tube Dysfunction 05/14/2012 ZULEIKA DPM, CHRISTOPHER 079.99 Viral Syndrome 05/14/2012 ZULEIKA DPM, CHRISTOPHER 244.1 OTHER POSTABLATIVE HYPOTHYROIDISM 05/14/2012 ZULEIKA DPM, CHRISTOPHER 381.81 [place]ian Tube Dysfunction 05/14/2012 HOLLY KEVIN, RNONIE E 079.99 Viral Syndrome 05/14/2012 HOLLY KEVIN, RONNIE E 244.1 OTHER POSTABLATIVE HYPOTHYROIDISM 05/14/2012 HOLLY KEVIN, RONNIE E 381.81 [place] Tube Dysfunction 05/14/2012 WHYTE DO, ADILIA K 079.99 Viral Syndrome 05/14/2012 WHYTE , ADILIA K 244.1 OTHER POSTABLATIVE HYPOTHYROIDISM 05/14/2012 WHYTE DO, ADILIA K 381.81 [place]ian Tube Dysfunction 05/14/2012 ZULEIKA DPM, CHRISTOPHER 079.99 Viral Syndrome 05/14/2012 ZULEIKA DPM, CHRISTOPHER 244.1 OTHER POSTABLATIVE HYPOTHYROIDISM 05/14/2012 ZULEIKA DPM, CHRISTOPHER 381.81 [place]ian Tube Dysfunction 05/14/2012 ZULEIKA DPM, CHRISTOPHER 079.99 Viral Syndrome 05/14/2012 ZULEIKA DPM, CHRISTOPHER 244.1 OTHER POSTABLATIVE HYPOTHYROIDISM 05/14/2012 ZULEIKA DPM, CHRISTOPHER 381.81 [place]ian Tube Dysfunction 05/14/2012 WHYTE DO, ADILIA K 079.99 Viral Syndrome 05/14/2012 WHYTE DO ADILIA K 244.1 OTHER POSTABLATIVE HYPOTHYROIDISM 05/14/2012 WHYTE DO, ADILIA K 381.81 [place]achian Tube Dysfunction 05/14/2012 RENAN DUNBAR APRN R 079.99 Viral Syndrome 05/14/2012 RENAN DUNBAR APRN R 244.1 OTHER POSTABLATIVE HYPOTHYROIDISM 05/14/2012 RENAN DUNBAR APRN 381.81 [place]ustachian Tube Dysfunction 06/08/2012 ADILIA WHYTE DO V25.49 CONTRACEPTION SURVEILLANCE (REPEAT RX) 06/08/2012 V25.49 CONTRACEPTION SURVEILLANCE (REPEAT RX) 06/08/2012 V25.49 CONTRACEPTION SURVEILLANCE (REPEAT RX) 06/08/2012 ADILIA WHYTE DO V25.49 CONTRACEPTION SURVEILLANCE (REPEAT RX) 06/08/2012 ADILIA WHYTE DO V25.49 CONTRACEPTION SURVEILLANCE (REPEAT RX) 06/08/2012 V25.49 CONTRACEPTION SURVEILLANCE (REPEAT RX) 06/08/2012 V25.49 CONTRACEPTION SURVEILLANCE (REPEAT RX) 06/08/2012 TIEN KIMBLE PA-C V25.49 CONTRACEPTION SURVEILLANCE (REPEAT RX) 06/08/2012 ANSHUL CARBAJAL APRN V25.49 CONTRACEPTION SURVEILLANCE (REPEAT RX) 06/08/2012 ADILIA DUEÑAS V25.49 CONTRACEPTION SURVEILLANCE (REPEAT RX) 06/08/2012 V25.49 CONTRACEPTION SURVEILLANCE (REPEAT RX) 06/08/2012 V25.49 CONTRACEPTION SURVEILLANCE (REPEAT RX) 06/08/2012 V25.49 CONTRACEPTION SURVEILLANCE (REPEAT RX) 06/08/2012 V25.49 CONTRACEPTION SURVEILLANCE (REPEAT RX) 06/08/2012 V25.49 CONTRACEPTION SURVEILLANCE (REPEAT RX) 06/08/2012 V25.49 CONTRACEPTION SURVEILLANCE (REPEAT RX) 06/08/2012 V25.49 CONTRACEPTION SURVEILLANCE (REPEAT RX) 06/08/2012 V25.49 CONTRACEPTION SURVEILLANCE (REPEAT RX) 06/08/2012 V25.49 CONTRACEPTION SURVEILLANCE (REPEAT RX) 06/08/2012 GORDON OG DDS V25.49 CONTRACEPTION SURVEILLANCE (REPEAT RX) 06/08/2012 MAX TORRES DDS V25.49 CONTRACEPTION SURVEILLANCE (REPEAT RX) 06/08/2012 ADILIA WHYTE DO V25.49 CONTRACEPTION SURVEILLANCE (REPEAT RX) 06/08/2012 DAMIEN KIM APRN V25.49 CONTRACEPTION SURVEILLANCE (REPEAT RX) 06/08/2012 ADILIA WHYTE DO V25.49 CONTRACEPTION SURVEILLANCE (REPEAT RX) 06/08/2012 DAMIEN KIM APRN V25.49 CONTRACEPTION SURVEILLANCE (REPEAT RX) 06/08/2012 RENAN DUNBAR APRN V25.49 CONTRACEPTION SURVEILLANCE (REPEAT RX) 06/08/2012 ADILIA WHYTE DO V25.49 CONTRACEPTION SURVEILLANCE (REPEAT RX) 06/08/2012 BRIAN SANCHEZS, WARREN Kuo V25.49 CONTRACEPTION SURVEILLANCE (REPEAT RX) 06/08/2012 ADILIA WHYTE DO V25.49 CONTRACEPTION SURVEILLANCE (REPEAT RX) 06/08/2012 ADILAI WHYTE DO V25.49 CONTRACEPTION SURVEILLANCE (REPEAT RX) 06/08/2012 WON CARMONA, MARIUSZ Qiu V25.49 CONTRACEPTION SURVEILLANCE (REPEAT RX) 06/08/2012 APOORVA RAMIREZ, DANIEL Pickens V25.49 CONTRACEPTION SURVEILLANCE (REPEAT RX) 06/08/2012 ANSHUL CARBAJAL APRN V25.49 CONTRACEPTION SURVEILLANCE (REPEAT RX) 06/08/2012 VONNIE PINA APRN A V25.49 CONTRACEPTION SURVEILLANCE (REPEAT RX) 06/08/2012 ADILIA WHYTE DO V25.49 CONTRACEPTION SURVEILLANCE (REPEAT RX) 06/08/2012 EMILY RIDDLE APRN V25.49 CONTRACEPTION SURVEILLANCE (REPEAT RX) 06/08/2012 RONNIE BARRERA RN V25.49 CONTRACEPTION SURVEILLANCE (REPEAT RX) 06/08/2012 VONNIE PINA APRN V25.49 CONTRACEPTION SURVEILLANCE (REPEAT RX) 06/08/2012 [...] Shoulder Region 07/31/2012 780.52 INSOMNIA UNSPECIFIED 07/31/2012 LENKA DDS, GORDON B 719.41 Pain In Joint Involving Shoulder Region 07/31/2012 LENKA DDS, GORDON B 780.52 INSOMNIA UNSPECIFIED 07/31/2012 MAX TORRES DDS 719.41 Pain In Joint Involving Shoulder Region 07/31/2012 MAX TORRES DDS 780.52 INSOMNIA UNSPECIFIED 07/31/2012 WHYTE DO ADILIA K 719.41 Pain In Joint Involving Shoulder Region 07/31/2012 WHYTE DO ADILIA K 780.52 INSOMNIA UNSPECIFIED 07/31/2012 DAMIEN KIM APRN N 719.41 Pain In Joint Involving Shoulder Region 07/31/2012 DAMIEN KIM APRN N 780.52 INSOMNIA UNSPECIFIED 07/31/2012 WHYTE DO, ADILIA K 719.41 Pain In Joint Involving Shoulder Region 07/31/2012 WHYTE DO, ADILIA K 780.52 INSOMNIA UNSPECIFIED 07/31/2012 DAMIEN KIM APRN N 719.41 Pain In Joint Involving Shoulder Region 07/31/2012 DAMIEN KIM APRN N 780.52 INSOMNIA UNSPECIFIED 07/31/2012 MANJINDER MANUFACTURING INSPECTOR, RENAN R 719.41 Pain In Joint Involving Shoulder Region 07/31/2012 MANJINDER MANUFACTURING INSPECTOR, RENAN R 780.52 INSOMNIA UNSPECIFIED 07/31/2012 WHYTE DO, ADILIA K 719.41 Pain In Joint Involving Shoulder Region 07/31/2012 WHYTE DO, ADILIA K 780.52 INSOMNIA UNSPECIFIED 07/31/2012 WARREN TORRES DDS 719.41 Pain In Joint Involving Shoulder Region 07/31/2012 WARREN TORRES DDS 780.52 INSOMNIA UNSPECIFIED 07/31/2012 WHYTE DO, ADILIA K 719.41 Pain In Joint Involving Shoulder Region 07/31/2012 JOSUE WHYTE DOA K 780.52 INSOMNIA UNSPECIFIED 07/31/2012 WHYTE DO ADILIA K 719.41 Pain In Joint Involving Shoulder Region 07/31/2012 PATO DUEÑAS ADILIA K 780.52 INSOMNIA UNSPECIFIED 07/31/2012 MARIUSZ UPTON LCPC B 719.41 Pain In Joint Involving Shoulder Region 07/31/2012 MARIUSZ UPTON LCPC B 780.52 INSOMNIA UNSPECIFIED 07/31/2012 DANIEL GUERIN PHD 719.41 Pain In Joint Involving Shoulder Region 07/31/2012 DANIEL GUERIN PHD 780.52 INSOMNIA UNSPECIFIED 07/31/2012 ANSHUL CARBAJAL APRN R 719.41 Pain In Joint Involving Shoulder Region 07/31/2012 ANSHUL CARBAJAL APRN R 780.52 INSOMNIA UNSPECIFIED 07/31/2012 VONNIE PINA APRN A 719.41 Pain In Joint Involving Shoulder Region 07/31/2012 VONNIE PINA APRN A 780.52 INSOMNIA UNSPECIFIED 07/31/2012 JOSUE WHYTE DOA K 719.41 Pain In Joint Involving Shoulder Region 07/31/2012 JOSUE WHYTE DOA K 780.52 INSOMNIA UNSPECIFIED 07/31/2012 EMILY RIDDLE APRN L 719.41 Pain In Joint Involving Shoulder Region 07/31/2012 ERICK RIDDLE APRNA L 780.52 INSOMNIA UNSPECIFIED 07/31/2012 RONNIE BARRERA RN E 719.41 Pain In Joint Involving Shoulder Region 07/31/2012 RONNIE BARRERA RN E 780.52 INSOMNIA UNSPECIFIED 07/31/2012 VEL PINA APRNIDI A 719.41 Pain In Joint Involving Shoulder Region 07/31/2012 VEL PINA APRNIDI A 780.52 INSOMNIA UNSPECIFIED 07/31/2012 RONNIE BARRERA RN E 719.41 Pain In Joint Involving Shoulder Region 07/31/2012 RONNIE BARRERA RN E 780.52 INSOMNIA UNSPECIFIED 07/31/2012 CHRISTOPHER TO DPM 719.41 Pain In Joint Involving Shoulder Region 07/31/2012 CHRISTOPHER TO DPM 780.52 INSOMNIA UNSPECIFIED 07/31/2012 VEL PINA APRNIDI A 719.41 Pain In Joint Involving Shoulder Region 07/31/2012 VEL PINA APRNIDI A 780.52 INSOMNIA UNSPECIFIED 07/31/2012 WHYTE DO, ADILIA K 719.41 Pain In Joint Involving Shoulder Region 07/31/2012 WHYTE DO, ADILIA K 780.52 INSOMNIA UNSPECIFIED 07/31/2012 HOLLY KEVIN, RONNIE E 719.41 Pain In Joint Involving Shoulder Region 07/31/2012 HOLLY KEVIN, RONNIE E 780.52 INSOMNIA UNSPECIFIED 07/31/2012 ZULEIKA DPM, CHRISTOPHER 719.41 Pain In Joint Involving Shoulder Region 07/31/2012 ZULEIKA DPM, CHRISTOPHER 780.52 INSOMNIA UNSPECIFIED 07/31/2012 HOLLY KEVIN, RONNIE E 719.41 Pain In Joint Involving Shoulder Region 07/31/2012 HOLLY KEVIN, RONNIE E 780.52 INSOMNIA UNSPECIFIED 07/31/2012 WHYTE DO, ADILIA K 719.41 Pain In Joint Involving Shoulder Region 07/31/2012 WHYTE DO, ADILIA K 780.52 INSOMNIA UNSPECIFIED 07/31/2012 ZULEIKA DPM, CHRISTOPHER 719.41 Pain In Joint Involving Shoulder Region 07/31/2012 ZULEIKA DPM, CHRISTOPHER 780.52 INSOMNIA UNSPECIFIED 07/31/2012 ZULEIKA DPM, CHRISTOPHER 719.41 Pain In Joint Involving Shoulder Region 07/31/2012 ZULEIKA DPM, CHRISTOPHER 780.52 INSOMNIA UNSPECIFIED 07/31/2012 WHYTE DO, ADILIA K 719.41 Pain In Joint Involving Shoulder Region 07/31/2012 WHYTE DO, ADILIA K 780.52 INSOMNIA UNSPECIFIED 07/31/2012 MANJINDER TOVAR, RENAN R 719.41 Pain In Joint Involving Shoulder Region 07/31/2012 MANJINDER TOVAR, RENAN R 780.52 INSOMNIA UNSPECIFIED 09/10/2012 WHYTE DO, ADILIA K 461.9 SINUSITIS ACUTE 09/10/2012 WHYTE DO, ADILIA K 466.0 BRONCHITIS, ACUTE 09/10/2012 WHYTE DO, ADILIA K V65.42 COUNSELING - SMOKING CESSATION 09/10/2012 461.9 SINUSITIS ACUTE 09/10/2012 466.0 BRONCHITIS, ACUTE 09/10/2012 V65.42 COUNSELING - SMOKING CESSATION 09/10/2012 461.9 SINUSITIS ACUTE 09/10/2012 466.0 BRONCHITIS, ACUTE 09/10/2012 V65.42 COUNSELING - SMOKING CESSATION 09/10/2012 SHYANNE HER, TIEN Fernandez 461.9 SINUSITIS ACUTE 09/10/2012 SHYANNE HER, TIEN Fernandez 466.0 BRONCHITIS, ACUTE 09/10/2012 SHYANNE HER, TIEN Fernandez V65.42 COUNSELING - SMOKING CESSATION 09/10/2012 ANSHUL CARBAJAL APRN R 461.9 SINUSITIS ACUTE 09/10/2012 CECY CARBAJAL APRNIA R 466.0 BRONCHITIS, ACUTE 09/10/2012 CECY CARBAJAL APRNIA R V65.42 COUNSELING - SMOKING CESSATION 09/10/2012 WHYTE DO, ADILIA K 461.9 Sinusitis Acute 09/10/2012 WHYTE DO, ADIILA K 466.0 Bronchitis, Acute 09/10/2012 WHYTE DO, [...] J V65.42 COUNSELING - SMOKING CESSATION 09/10/2012 WHYTE DO, ADILIA K 461.9 Sinusitis Acute 09/10/2012 WHYTE DO, ADILIA K 466.0 Bronchitis, Acute 09/10/2012 WHYTE DO, ADILIA K V65.42 COUNSELING - SMOKING CESSATION 09/10/2012 MCKEON CASHERO MANUFACTURING INSPECTOR, DAMIEN N 461.9 Sinusitis Acute 09/10/2012 MCKEON CASHERO MANUFACTURING INSPECTOR, DAMIEN N 466.0 Bronchitis, Acute 09/10/2012 MCKEON CASHERO MANUFACTURING INSPECTOR, DAMIEN N V65.42 COUNSELING - SMOKING CESSATION 09/10/2012 WHYTE DO, ADILIA K 461.9 Sinusitis Acute 09/10/2012 WHYTE DO, ADILIA K 466.0 Bronchitis, Acute 09/10/2012 WHYTE DO, ADILIA K V65.42 COUNSELING - SMOKING CESSATION 09/10/2012 MCKEON CASHERO MANUFACTURING INSPECTOR, DAMIEN N 461.9 Sinusitis Acute 09/10/2012 MCKEON CASHERO MANUFACTURING INSPECTOR, DAMIEN N 466.0 Bronchitis, Acute 09/10/2012 MCKEON CASHERO MANUFACTURING INSPECTOR, DAMIEN N V65.42 COUNSELING - SMOKING CESSATION 09/10/2012 MANJINDER MANUFACTURING INSPECTOR, RENAN R 461.9 Sinusitis Acute 09/10/2012 MANJINDER MANUFACTURING INSPECTOR, RENAN R 466.0 Bronchitis, Acute 09/10/2012 MANJINDER MANUFACTURING INSPECTOR, RENNA R V65.42 COUNSELING - SMOKING CESSATION 09/10/2012 [...] K V65.42 COUNSELING - SMOKING CESSATION 09/10/2012 MARIUSZ UPTON LCPC B 461.9 Sinusitis Acute 09/10/2012 WON CARMONA, MARIUSZ B 466.0 Bronchitis, Acute 09/10/2012 WON CARMONA, MARIUSZ B V65.42 COUNSELING - SMOKING CESSATION 09/10/2012 APOORVA RAMIREZ, DANIEL Pickens 461.9 Sinusitis Acute 09/10/2012 APOORVA PHD, DANIEL A 466.0 Bronchitis, Acute 09/10/2012 APOORVA RAMIREZ, DANIEL A V65.42 COUNSELING - SMOKING CESSATION 09/10/2012 CECY CARBAJAL APRNIA R 461.9 Sinusitis Acute 09/10/2012 RAVEN TOVAR ANSHUL R 466.0 Bronchitis, Acute 09/10/2012 RAVEN TOVAR ANSHUL R V65.42 COUNSELING - SMOKING CESSATION 09/10/2012 VEL PINA APRNIDI A 461.9 Sinusitis Acute 09/10/2012 YOVANI TOVAR VONNIE A 466.0 Bronchitis, Acute 09/10/2012 YOVANI TOVAR VONNIE A V65.42 COUNSELING - SMOKING CESSATION 09/10/2012 WHYTE DO, ADILIA K 461.9 Sinusitis Acute 09/10/2012 WHYTE DO, ADILIA K 466.0 Bronchitis, Acute 09/10/2012 WHYTE DO, ADILIA K V65.42 COUNSELING - SMOKING CESSATION 09/10/2012 VENKATESH TOVAR EMILY L 461.9 Sinusitis Acute 09/10/2012 VENKATESH TOVAR, EMILY L 466.0 Bronchitis, Acute 09/10/2012 VENKATESH TOVAR, EMILY L V65.42 COUNSELING - SMOKING CESSATION 09/10/2012 HOLLY KEVIN, RONNIE Shanks 461.9 Sinusitis Acute 09/10/2012 HOLLY KEVIN, RONNIE E 466.0 Bronchitis, Acute 09/10/2012 HOLLY KEVIN, RONNIE E V65.42 COUNSELING - SMOKING CESSATION 09/10/2012 YOVANI TOVAR, VONNIE A 461.9 Sinusitis Acute 09/10/2012 YOVANI PEREZN, VONNIE A 466.0 Bronchitis, Acute 09/10/2012 YOVANI MANUFACTURING INSPECTOR, VONNIE A V65.42 COUNSELING - SMOKING CESSATION 09/10/2012 HOLLY KEVIN, RONNIE E 461.9 Sinusitis Acute 09/10/2012 HOLLY RN, RONNIE E 466.0 Bronchitis, Acute 09/10/2012 HOLLY KEVIN, RONNIE E V65.42 COUNSELING - SMOKING CESSATION 09/10/2012 ZULEIKA DPM, CHRISTOPHER 461.9 Sinusitis Acute 09/10/2012 ZULEIKA DPM, CHRISTOPHER 466.0 Bronchitis, Acute 09/10/2012 ZULEIKA DPM, CHRISTOPHER V65.42 COUNSELING - SMOKING CESSATION 09/10/2012 YOVANI APRN, VONNIE A 461.9 Sinusitis Acute 09/10/2012 YOVANI APRN, VONNIE A 466.0 Bronchitis, Acute 09/10/2012 YOVANI APRN, VONNIE A V65.42 COUNSELING - SMOKING CESSATION [...] V65.42 COUNSELING - SMOKING CESSATION 09/10/2012 MANJINDER TOVAR, RENAN R 461.9 Sinusitis Acute 09/10/2012 MANJINDER TOVAR RENAN R 466.0 Bronchitis, Acute 09/10/2012 MANJINDER TOVAR, RENAN R V65.42 COUNSELING - SMOKING CESSATION 10/21/2012 473.9 SINUSITIS 10/21/2012 473.9 SINUSITIS 10/21/2012 TIEN KIMBLE PA-C 473.9 SINUSITIS 10/21/2012 ANSHUL CARBAJAL APRN 473.9 SINUSITIS 10/21/2012 WHYTE ADILIA DUEÑAS K 473.9 Sinusitis 10/21/2012 473.9 Sinusitis 10/21/2012 473.9 Sinusitis 10/21/2012 473.9 Sinusitis 10/21/2012 473.9 Sinusitis 10/21/2012 473.9 Sinusitis 10/21/2012 473.9 Sinusitis 10/21/2012 473.9 Sinusitis 10/21/2012 473.9 Sinusitis 10/21/2012 473.9 Sinusitis 10/21/2012 GORDON OG DDS 473.9 Sinusitis 10/21/2012 MAX TORRES DDS 473.9 Sinusitis 10/21/2012 WHYTE JOSUE DUEÑASA K 473.9 Sinusitis 10/21/2012 DAMIEN KIM APRN 473.9 Sinusitis 10/21/2012 WHYTE DO, ADILIA K 473.9 Sinusitis 10/21/2012 LINDA SIGALA MANUFACTURING INSPECTOR, DAMIEN N 473.9 Sinusitis 10/21/2012 MANJINDER MANUFACTURING INSPECTOR, RENAN R 473.9 Sinusitis 10/21/2012 WHYTE DO, ADILIA K 473.9 Sinusitis 10/21/2012 BRIAN DDS, WARREN D 473.9 Sinusitis 10/21/2012 WHYTE DO, ADILIA K 473.9 Sinusitis 10/21/2012 WHYTE DO, ADILIA K 473.9 Sinusitis 10/21/2012 WON CARMONA, MARIUSZ B 473.9 Sinusitis 10/21/2012 APOORVA PHD, DANIEL A 473.9 Sinusitis 10/21/2012 RAVEN MANUFACTURING INSPECTOR, ANSHUL R 473.9 Sinusitis 10/21/2012 YOVANI MANUFACTURING INSPECTOR, VONNIE A 473.9 Sinusitis 10/21/2012 WHYTE DO, ADILIA K 473.9 Sinusitis 10/21/2012 VENKATESH MANUFACTURING INSPECTOR, EMILY Garcia 473.9 Sinusitis 10/21/2012 HOLLY KEVIN, RONNIE E 473.9 Sinusitis 10/21/2012 YOVANI MANUFACTURING INSPECTOR, VONNIE A 473.9 Sinusitis 10/21/2012 HOLLY RN, RONNIE E 473.9 Sinusitis 10/21/2012 ZULEIKA DPM, CHRISTOPHER 473.9 Sinusitis 10/21/2012 YOVANI MANUFACTURING INSPECTOR, VONNIE A 473.9 Sinusitis 10/21/2012 WHYTE DO, ADILIA K 473.9 Sinusitis 10/21/2012 HOLLY KEVIN, RONNIE E 473.9 Sinusitis 10/21/2012 ZULEIKA DPM, CHRISTOPHER 473.9 Sinusitis 10/21/2012 HOLLY KEVIN, RONNIE E 473.9 Sinusitis 10/21/2012 WHYTE DO, ADILIA K 473.9 Sinusitis 10/21/2012 ZULEIKA DPM, CHRISTOPHER 473.9 Sinusitis 10/21/2012 ZULEIKA DPM, CHRISTOPHER 473.9 Sinusitis 10/21/2012 WHYTE DO, ADILIA K 473.9 Sinusitis 10/21/2012 MANJINDER MANUFACTURING INSPECTOR, RENAN R 473.9 Sinusitis 10/26/2012 726.71 TENDONITIS ACHILLES LEFT 10/26/2012 SHYANNE HER, TIEN Fernandez 726.71 TENDONITIS ACHILLES LEFT 10/26/2012 ANSHUL CARBAJAL APRN R 726.71 TENDONITIS ACHILLES LEFT 10/26/2012 WHYTE DO ADILIA K 726.71 TENDONITIS ACHILLES LEFT 10/26/2012 726.71 TENDONITIS ACHILLES LEFT 10/26/2012 726.71 TENDONITIS ACHILLES LEFT 10/26/2012 726.71 TENDONITIS ACHILLES LEFT 10/26/2012 726.71 TENDONITIS ACHILLES LEFT 10/26/2012 726.71 TENDONITIS ACHILLES LEFT 10/26/2012 726.71 TENDONITIS ACHILLES LEFT 10/26/2012 726.71 TENDONITIS ACHILLES LEFT 10/26/2012 726.71 TENDONITIS ACHILLES LEFT 10/26/2012 726.71 TENDONITIS ACHILLES LEFT 10/26/2012 GORDON OG DDS 726.71 TENDONITIS ACHILLES LEFT 10/26/2012 MAX TORRES DDS 726.71 TENDONITIS ACHILLES LEFT 10/26/2012 JOSUE WHYTE DOA K 726.71 TENDONITIS ACHILLES LEFT 10/26/2012 DAMIEN KIM APRN N 726.71 TENDONITIS ACHILLES LEFT 10/26/2012 JOSUE WHYTE DOA K 726.71 TENDONITIS ACHILLES LEFT 10/26/2012 OCTAVIA KIM APRNCY N 726.71 TENDONITIS ACHILLES LEFT 10/26/2012 RENAN DUNBAR APRN 726.71 TENDONITIS ACHILLES LEFT 10/26/2012 WHYTE DO ADILIA K 726.71 TENDONITIS ACHILLES LEFT 10/26/2012 WARREN TORRES DDS 726.71 TENDONITIS ACHILLES LEFT 10/26/2012 PATO DUEÑAS ADILIA K 726.71 TENDONITIS ACHILLES LEFT 10/26/2012 WHYTE DO ADILIA K 726.71 TENDONITIS ACHILLES LEFT 10/26/2012 MARIUSZ UPTON LCPC B 726.71 TENDONITIS ACHILLES LEFT 10/26/2012 APOORVA RAMIREZ, DANIEL A 726.71 TENDONITIS ACHILLES LEFT 10/26/2012 ANSHUL CARBAJAL APRN R 726.71 TENDONITIS ACHILLES LEFT 10/26/2012 VONNIE PINA APRN A 726.71 TENDONITIS ACHILLES LEFT 10/26/2012 WHYTE JOSUE DUEÑASA K 726.71 TENDONITIS ACHILLES LEFT 10/26/2012 EMILY RIDDLE APRN 726.71 TENDONITIS ACHILLES LEFT 10/26/2012 HOLLY KEVIN, RONNIE E 726.71 TENDONITIS ACHILLES LEFT 10/26/2012 VONNIE PINA APRN A 726.71 TENDONITIS ACHILLES LEFT 10/26/2012 HOLLY KEVIN, RONNIE E 726.71 TENDONITIS ACHILLES LEFT 10/26/2012 ZULEIKA DPM, CHRISTOPHER 726.71 TENDONITIS ACHILLES LEFT 10/26/2012 VONNIE PINA APRN A 726.71 TENDONITIS ACHILLES LEFT 10/26/2012 WHYTE , ADILIA K 726.71 TENDONITIS ACHILLES LEFT 10/26/2012 HOLLY KEVIN, RONNIE E 726.71 TENDONITIS ACHILLES LEFT 10/26/2012 ZULEIKA DPM, CHRISTOPHER 726.71 TENDONITIS ACHILLES LEFT 10/26/2012 HOLLY KEVIN, RONNIE E 726.71 TENDONITIS ACHILLES LEFT 10/26/2012 WHYTE DO, ADILIA K 726.71 TENDONITIS ACHILLES LEFT 10/26/2012 ZULEIKA DPM, CHRISTOPHER 726.71 TENDONITIS ACHILLES LEFT 10/26/2012 ZULEIKA DPM, CHRISTOPHER 726.71 TENDONITIS ACHILLES LEFT 10/26/2012 WHYTE DO, ADILIA K 726.71 TENDONITIS ACHILLES LEFT 10/26/2012 RENAN DUNBAR APRN 726.71 TENDONITIS ACHILLES LEFT 11/11/2012 ANSHUL CARBAJAL APRN 789.04 abdominal pain in the left lower belly (LLQ) 11/11/2012 ADILIA WHYTE DO K 789.04 abdominal pain in the left lower [...] LOWER BELLY (LLQ) 11/11/2012 LENKA DDS, GORDON Qiu 789.04 ABDOMINAL PAIN IN THE LEFT LOWER BELLY (LLQ) 11/11/2012 WHITE DDS, MAX Fraga 789.04 ABDOMINAL PAIN IN THE LEFT LOWER BELLY (LLQ) 11/11/2012 WHYTE DO, ADILIA K 789.04 ABDOMINAL PAIN IN THE LEFT LOWER BELLY (LLQ) 11/11/2012 DAMIEN KIM APRN N 789.04 ABDOMINAL PAIN IN THE LEFT LOWER BELLY (LLQ) 11/11/2012 WHYTE DO, ADILIA K 789.04 ABDOMINAL PAIN IN THE LEFT LOWER BELLY (LLQ) 11/11/2012 DAMIEN KIM APRN N 789.04 ABDOMINAL PAIN IN THE LEFT [...] LOWER BELLY (LLQ) 11/11/2012 MARIUSZ UPTON LCPC B 789.04 ABDOMINAL PAIN IN THE LEFT LOWER BELLY (LLQ) 11/11/2012 APOORVA RAMIREZ, DANIEL Pickens 789.04 ABDOMINAL PAIN IN THE LEFT LOWER BELLY (LLQ) 11/11/2012 ANSHUL CARBAJAL APRN 789.04 ABDOMINAL PAIN IN THE LEFT LOWER BELLY (LLQ) 11/11/2012 VONNIE PINA APRN A 789.04 ABDOMINAL PAIN IN THE LEFT LOWER BELLY (LLQ) 11/11/2012 WHYTE DO, ADILIA K 789.04 ABDOMINAL PAIN IN THE LEFT LOWER BELLY (LLQ) 11/11/2012 MADL MANUFACTURING INSPECTOR, EMILY L 789.04 ABDOMINAL PAIN IN THE LEFT LOWER BELLY (LLQ) 11/11/2012 HOLLY KEVIN, RONNIE Shanks 789.04 ABDOMINAL PAIN IN THE LEFT LOWER BELLY (LLQ) 11/11/2012 YOVANI TOVAR, VONNIE A 789.04 ABDOMINAL PAIN IN THE LEFT LOWER BELLY (LLQ) 11/11/2012 RONNIE BARRERA RN 789.04 ABDOMINAL PAIN IN THE LEFT LOWER BELLY (LLQ) 11/11/2012 ZULEIKA DPM, HCRISTOPHER 789.04 ABDOMINAL PAIN IN THE LEFT LOWER BELLY (LLQ) 11/11/2012 YOVANI TOVAR, VONNIE A 789.04 ABDOMINAL PAIN IN THE LEFT LOWER BELLY (LLQ) 11/11/2012 ADILIA WHYTE DO 789.04 ABDOMINAL PAIN IN THE LEFT LOWER BELLY (LLQ) 11/11/2012 RONNIE BARRERA RN 789.04 ABDOMINAL PAIN IN THE LEFT LOWER BELLY (LLQ) 11/11/2012 ZULEIKA TINGM, CHRISTOPHER 789.04 ABDOMINAL PAIN IN THE LEFT LOWER BELLY (LLQ) 11/11/2012 RONNIE BARRERA RN 789.04 ABDOMINAL PAIN IN THE LEFT LOWER BELLY (LLQ) 11/11/2012 ADILIA WHYTE DO K 789.04 ABDOMINAL PAIN IN THE LEFT LOWER BELLY (LLQ) 11/11/2012 ZULEIKA DPM, CHRISTOPHER 789.04 ABDOMINAL PAIN IN THE LEFT LOWER BELLY (LLQ) 11/11/2012 ZULEIKA DPM, CHRISTOPHER 789.04 ABDOMINAL PAIN IN THE LEFT LOWER BELLY (LLQ) 11/11/2012 ADILIA WHYTE DO K 789.04 ABDOMINAL PAIN IN THE LEFT LOWER BELLY (LLQ) 11/11/2012 RENAN DUNBAR APRN 789.04 ABDOMINAL PAIN IN THE LEFT LOWER BELLY (LLQ) 11/20/2012 ADILIA WHYTE DO K 786.50 CHEST PAIN 11/20/2012 WHYTE ADILIA DUEÑAS K 790.6 OTHER ABNORMAL BLOOD CHEMISTRY 11/20/2012 786.50 [...] OTHER ABNORMAL BLOOD CHEMISTRY 11/20/2012 MCKEON CASHERO MANUFACTURING INSPECTOR, DAMIEN N 786.50 CHEST PAIN 11/20/2012 MCKEON CASHERO MANUFACTURING INSPECTOR, DAMIEN N 790.6 OTHER ABNORMAL BLOOD CHEMISTRY 11/20/2012 WHYTE DO, ADILIA K 786.50 CHEST PAIN 11/20/2012 WHYTE DO, ADILIA K 790.6 OTHER ABNORMAL BLOOD CHEMISTRY 11/20/2012 MCKEON CASHERO MANUFACTURING INSPECTOR, DAMIEN N 786.50 CHEST PAIN 11/20/2012 MCKEON CASHERO MANUFACTURING INSPECTOR, DAMIEN N 790.6 OTHER ABNORMAL BLOOD CHEMISTRY 11/20/2012 MANJINDER MANUFACTURING INSPECTOR, RENAN R 786.50 CHEST PAIN 11/20/2012 MANJINDER MANUFACTURING INSPECTOR, RENAN R 790.6 OTHER ABNORMAL BLOOD CHEMISTRY [...] 790.6 OTHER ABNORMAL BLOOD CHEMISTRY 11/20/2012 WON FIELD SERVICE REPRESENTATIVE, MARIUSZ B 786.50 CHEST PAIN 11/20/2012 WON FIELD SERVICE REPRESENTATIVE, MARIUSZ B 790.6 OTHER ABNORMAL BLOOD CHEMISTRY 11/20/2012 APOORVA RAMIREZ, DANIEL A 786.50 CHEST PAIN 11/20/2012 APOORVA PHD, DANIEL A 790.6 OTHER ABNORMAL BLOOD CHEMISTRY 11/20/2012 CARBAJAL MANUFACTURING INSPECTOR, ANSHUL R 786.50 CHEST PAIN 11/20/2012 CARBAJAL MANUFACTURING INSPECTOR, ANSHUL R 790.6 OTHER ABNORMAL BLOOD CHEMISTRY 11/20/2012 YOVANI MANUFACTURING INSPECTOR, VONNIE A 786.50 CHEST PAIN 11/20/2012 YOVANI MANUFACTURING INSPECTOR, VONNIE A 790.6 OTHER ABNORMAL BLOOD CHEMISTRY 11/20/2012 WHYTE DO, ADILIA K 786.50 CHEST PAIN 11/20/2012 WHYTE DO, ADILIA K 790.6 OTHER ABNORMAL BLOOD CHEMISTRY 11/20/2012 MADL MANUFACTURING INSPECTOR, EMILY L 786.50 CHEST PAIN 11/20/2012 MADL MANUFACTURING INSPECTOR, EMILY L 790.6 OTHER ABNORMAL BLOOD CHEMISTRY 11/20/2012 HOLLY RN, RONNIE E 786.50 CHEST PAIN 11/20/2012 HOLLY KEVIN, RONNIE E 790.6 OTHER ABNORMAL BLOOD CHEMISTRY 11/20/2012 YOVANI MANUFACTURING INSPECTOR, VONNIE A 786.50 CHEST PAIN 11/20/2012 YOVANI MANUFACTURING INSPECTOR, VONNIE A 790.6 OTHER ABNORMAL BLOOD CHEMISTRY 11/20/2012 HOLLY RN, RONNIE E 786.50 CHEST PAIN 11/20/2012 HOLLY RN, RONNIE E 790.6 OTHER ABNORMAL BLOOD CHEMISTRY 11/20/2012 ZULEIKA DPM, CHRISTOPHER 786.50 CHEST PAIN 11/20/2012 ZULEIKA DPM, CHRISTOPHER 790.6 OTHER ABNORMAL BLOOD CHEMISTRY 11/20/2012 YOVANI MANUFACTURING INSPECTOR, VONNIE A 786.50 CHEST PAIN 11/20/2012 YOVANI MANUFACTURING INSPECTOR, VONNIE A 790.6 OTHER ABNORMAL BLOOD CHEMISTRY [...] OTHER ABNORMAL BLOOD CHEMISTRY 11/20/2012 WHYTE DO, ADILAI K 786.50 CHEST PAIN 11/20/2012 WHYTE DO, ADILIA K 790.6 OTHER ABNORMAL BLOOD CHEMISTRY 11/20/2012 MANJINDER TOVAR, RENAN R 786.50 CHEST PAIN 11/20/2012 MANJINDER TOVAR, RENAN R 790.6 OTHER ABNORMAL BLOOD CHEMISTRY [...] V25.9 CONTRACEPTION MANAGEMENT 12/08/2012 LENKA DDS, GORDON B 729.1 MYALGIA AND MYOSITIS UNSPECIFIED 12/08/2012 LENKA DDS, GORDON B V25.9 CONTRACEPTION MANAGEMENT 12/08/2012 WHITE LAURAS, MAX Fraga 729.1 MYALGIA AND MYOSITIS UNSPECIFIED 12/08/2012 WHITE DDS, MAX Fraga V25.9 CONTRACEPTION MANAGEMENT 12/08/2012 WHYTE DO ADILIA K 729.1 MYALGIA AND MYOSITIS UNSPECIFIED 12/08/2012 WHYTE DO ADILIA K V25.9 CONTRACEPTION MANAGEMENT 12/08/2012 LINDA SIGALA APRN DAMIEN N 729.1 MYALGIA AND MYOSITIS UNSPECIFIED 12/08/2012 LINDA SIGALA MANUFACTURING INSPECTOR, DAMIEN N V25.9 CONTRACEPTION MANAGEMENT 12/08/2012 WHYTE DO ADILIA K 729.1 MYALGIA AND MYOSITIS UNSPECIFIED 12/08/2012 WHYTE DO, ADILIA K V25.9 CONTRACEPTION MANAGEMENT 12/08/2012 LINDA SIGALA MANUFACTURING INSPECTOR, DAMIEN N 729.1 MYALGIA AND MYOSITIS UNSPECIFIED 12/08/2012 MCKEON CASHERO MANUFACTURING INSPECTOR, DAMIEN N V25.9 CONTRACEPTION MANAGEMENT 12/08/2012 MANJINDER TOVAR, RENAN R 729.1 MYALGIA AND MYOSITIS UNSPECIFIED 12/08/2012 MANJINDER TOVAR, RENAN R V25.9 CONTRACEPTION MANAGEMENT 12/08/2012 WHYTE DO ADILIA K 729.1 MYALGIA AND MYOSITIS UNSPECIFIED 12/08/2012 WHYTE DO, ADILIA K V25.9 CONTRACEPTION MANAGEMENT 12/08/2012 BRIAN SANCHEZSWARREN 729.1 MYALGIA AND MYOSITIS UNSPECIFIED 12/08/2012 BRIAN SANCHEZSWARREN V25.9 CONTRACEPTION MANAGEMENT 12/08/2012 WHYTE DO ADILIA K 729.1 MYALGIA AND MYOSITIS UNSPECIFIED 12/08/2012 WHYTE DO ADILIA K V25.9 CONTRACEPTION MANAGEMENT 12/08/2012 WHYTE JOSUE DUEÑASA K 729.1 MYALGIA AND MYOSITIS UNSPECIFIED 12/08/2012 WHYTE DO ADILIA K V25.9 CONTRACEPTION MANAGEMENT 12/08/2012 MARIUSZ UPTON LCPC 729.1 MYALGIA AND MYOSITIS UNSPECIFIED 12/08/2012 WON CARMONA, MARIUSZ B V25.9 CONTRACEPTION MANAGEMENT 12/08/2012 APOORVA RAMIREZ, DANIEL [...] K 729.1 MYALGIA AND MYOSITIS UNSPECIFIED 12/08/2012 JOSUE WHYTE DOA K V25.9 CONTRACEPTION MANAGEMENT 12/08/2012 EMILY RIDDLE APRN 729.1 MYALGIA AND MYOSITIS UNSPECIFIED 12/08/2012 DANAY RIDDLE APRNWNYA L V25.9 CONTRACEPTION MANAGEMENT 12/08/2012 HOLLY KEVIN, RONNIE Shanks 729.1 MYALGIA AND MYOSITIS UNSPECIFIED 12/08/2012 HOLLY KEVIN, RONNIE Shanks V25.9 CONTRACEPTION MANAGEMENT 12/08/2012 VONNIE PINA APRN A 729.1 MYALGIA AND MYOSITIS UNSPECIFIED 12/08/2012 VONNIE PINA APRN A V25.9 CONTRACEPTION MANAGEMENT 12/08/2012 RONNIE BARRERA RN E 729.1 MYALGIA AND MYOSITIS UNSPECIFIED 12/08/2012 HOLLY KEVIN, RONNIE E V25.9 CONTRACEPTION MANAGEMENT 12/08/2012 ZULEIKA DPM, CHRISTOPHER 729.1 MYALGIA AND MYOSITIS UNSPECIFIED 12/08/2012 ZULEIKA DPM, CHRISTOPHER V25.9 CONTRACEPTION MANAGEMENT 12/08/2012 VONNIE PINA APRN A 729.1 MYALGIA AND MYOSITIS UNSPECIFIED 12/08/2012 VONNIE PINA APRN V25.9 CONTRACEPTION MANAGEMENT 12/08/2012 WHYTE ADILIA DUEÑAS K 729.1 MYALGIA AND MYOSITIS UNSPECIFIED 12/08/2012 WHYTE JOSUE DUEÑASA K V25.9 CONTRACEPTION MANAGEMENT 12/08/2012 RONNIE BARRERA RN 729.1 MYALGIA AND MYOSITIS UNSPECIFIED 12/08/2012 RONNIE BARRERA RN V25.9 CONTRACEPTION MANAGEMENT 12/08/2012 ZULEIKA DPM, CHRISTOPHER 729.1 MYALGIA AND MYOSITIS UNSPECIFIED 12/08/2012 ZULEIKA DPM, CHRISTOPHER V25.9 CONTRACEPTION MANAGEMENT 12/08/2012 RONNIE BARRERA RN 729.1 MYALGIA AND MYOSITIS UNSPECIFIED 12/08/2012 RONNIE BARRERA RN V25.9 CONTRACEPTION MANAGEMENT 12/08/2012 WHYTE JOSUE DUEÑASA K 729.1 MYALGIA AND MYOSITIS UNSPECIFIED 12/08/2012 JOSUE WHYTE DOA K V25.9 CONTRACEPTION MANAGEMENT 12/08/2012 ZULEIKA DPM, CHRISTOPHER 729.1 MYALGIA AND MYOSITIS UNSPECIFIED 12/08/2012 ZULEIKA DPM, CHRISTOPHER V25.9 CONTRACEPTION MANAGEMENT 12/08/2012 ZULEIKA DPM, CHRISTOPHER 729.1 MYALGIA AND MYOSITIS UNSPECIFIED 12/08/2012 ZULEIKA DPM, CHRISTOPHER V25.9 CONTRACEPTION MANAGEMENT 12/08/2012 WHYTE JOSUE DUEÑASA K 729.1 MYALGIA AND MYOSITIS UNSPECIFIED 12/08/2012 JOSUE WHYTE DOA K V25.9 CONTRACEPTION MANAGEMENT 12/08/2012 MANJINDER TOVAR RENAN R 729.1 MYALGIA AND MYOSITIS UNSPECIFIED 12/08/2012 MANJINDER TOVAR RENAN R V25.9 CONTRACEPTION MANAGEMENT 01/04/2013 359.79 OTHER INFLAMMATORY AND IMMUNE MYOPATHIES [...] IMMUNE MYOPATHIES NOT ELSEWHERE CLASSIFIED 01/04/2013 LENKA DDS, GORDON Qiu 359.79 OTHER INFLAMMATORY AND IMMUNE MYOPATHIES NOT ELSEWHERE CLASSIFIED 01/04/2013 BRIAN SANCHEZS, MAX Fraga 359.79 OTHER INFLAMMATORY AND IMMUNE MYOPATHIES NOT ELSEWHERE CLASSIFIED 01/04/2013 ADILIA WHYTE DO K 359.79 OTHER INFLAMMATORY AND IMMUNE MYOPATHIES NOT ELSEWHERE CLASSIFIED 01/04/2013 LINDA SIGALA APRN, DAMIEN N 359.79 OTHER INFLAMMATORY AND IMMUNE MYOPATHIES NOT ELSEWHERE CLASSIFIED 01/04/2013 WHYTE DO ADILIA K 359.79 OTHER INFLAMMATORY AND IMMUNE MYOPATHIES NOT ELSEWHERE CLASSIFIED 01/04/2013 OCTAVIA KMI APRNCY N 359.79 OTHER INFLAMMATORY AND IMMUNE MYOPATHIES NOT ELSEWHERE CLASSIFIED 01/04/2013 RENAN DUNBAR APRN 359.79 OTHER INFLAMMATORY AND IMMUNE MYOPATHIES NOT ELSEWHERE CLASSIFIED 01/04/2013 ADILIA WHYTE DO K 359.79 OTHER INFLAMMATORY AND IMMUNE MYOPATHIES NOT ELSEWHERE CLASSIFIED 01/04/2013 BRIAN SANCHEZS, WARREN Kuo 359.79 OTHER INFLAMMATORY AND IMMUNE MYOPATHIES NOT ELSEWHERE CLASSIFIED 01/04/2013 WHYTE DO ADILIA K 359.79 OTHER INFLAMMATORY AND IMMUNE MYOPATHIES NOT ELSEWHERE CLASSIFIED 01/04/2013 PATO DUEÑAS ADILIA K 359.79 OTHER INFLAMMATORY AND IMMUNE MYOPATHIES NOT ELSEWHERE CLASSIFIED 01/04/2013 MARIUSZ UPTON LCPC 359.79 OTHER INFLAMMATORY AND IMMUNE MYOPATHIES NOT ELSEWHERE CLASSIFIED 01/04/2013 APOORVA PHD, DANIEL Pickens 359.79 OTHER INFLAMMATORY AND IMMUNE MYOPATHIES NOT [...] IMMUNE MYOPATHIES NOT ELSEWHERE CLASSIFIED 01/04/2013 ADILIA HWYTE DO 359.79 OTHER INFLAMMATORY AND IMMUNE MYOPATHIES [...] 01/18/2013 911.2 NONVENOMOUS INSECT BITE PELVIS 01/18/2013 GORDON OG DDS 911.2 NONVENOMOUS INSECT BITE PELVIS 01/18/2013 MAX TORRES DDS 911.2 NONVENOMOUS INSECT BITE PELVIS 01/18/2013 ADILIA WHYTE DO 911.2 NONVENOMOUS INSECT BITE PELVIS 01/18/2013 MCKEON CASHERO MANUFACTURING INSPECTOR, DAMIEN N 911.2 NONVENOMOUS INSECT BITE PELVIS 01/18/2013 WHYTE DO, ADILIA K 911.2 NONVENOMOUS INSECT BITE PELVIS 01/18/2013 MCKEON ALEXNIK MANUFACTURING INSPECTOR, DAMIEN N 911.2 NONVENOMOUS INSECT BITE PELVIS 01/18/2013 MANJINDER MANUFACTURING INSPECTOR, RENAN R 911.2 NONVENOMOUS INSECT BITE PELVIS 01/18/2013 WHYTE DO, ADILIA K 911.2 NONVENOMOUS INSECT BITE PELVIS 01/18/2013 BRIAN DDS, WARREN D 911.2 NONVENOMOUS INSECT BITE PELVIS 01/18/2013 WHYTE DO, ADILIA K 911.2 NONVENOMOUS INSECT BITE PELVIS 01/18/2013 WHYTE DO, ADILIA K 911.2 NONVENOMOUS INSECT BITE PELVIS 01/18/2013 WON CARMONA, MARIUSZ B 911.2 NONVENOMOUS INSECT BITE PELVIS 01/18/2013 APOORVA RAMIREZ, DANIEL A 911.2 NONVENOMOUS INSECT BITE PELVIS 01/18/2013 RAVEN MANUFACTURING INSPECTOR, ANSHUL R 911.2 NONVENOMOUS INSECT BITE PELVIS 01/18/2013 YOVANI MANUFACTURING INSPECTOR, VONNIE A 911.2 NONVENOMOUS INSECT BITE PELVIS 01/18/2013 WHYTE DO, ADILIA K 911.2 NONVENOMOUS INSECT BITE PELVIS 01/18/2013 VENKATESH MANUFACTURING INSPECTOR, EMILY Garcia 911.2 NONVENOMOUS INSECT BITE PELVIS 01/18/2013 HOLLY KEVIN, RONNIE E 911.2 NONVENOMOUS INSECT BITE PELVIS 01/18/2013 YOVANI PEREZN, VONNIE A 911.2 NONVENOMOUS INSECT BITE PELVIS 01/18/2013 HOLLY KEVIN, RONNIE E 911.2 NONVENOMOUS INSECT BITE PELVIS 01/18/2013 ZULEIKA DPM, CHRISTOPHER 911.2 NONVENOMOUS INSECT BITE PELVIS 01/18/2013 YOVANI MANUFACTURING INSPECTOR, VONNIE A 911.2 NONVENOMOUS INSECT BITE PELVIS 01/18/2013 WHYTE DO, ADILIA K 911.2 NONVENOMOUS INSECT BITE PELVIS 01/18/2013 RONNIE BARRERA RN E 911.2 NONVENOMOUS INSECT BITE PELVIS 01/18/2013 ZULEIKA DPM, CHRISTOPHER 911.2 NONVENOMOUS INSECT BITE PELVIS 01/18/2013 HOLLY KEVIN, RONNIE Shanks 911.2 NONVENOMOUS INSECT BITE PELVIS 01/18/2013 WHYTE [...] BURN OF TRUNK WITHOUT INFECTION 01/19/2013 LENKA SANCHEZS, GORDON B 112.0 CANDIDIASIS OF MOUTH 01/19/2013 LENKA SANCHEZS, GORDON B 911.0 ABRASION OR FRICTION BURN OF TRUNK WITHOUT INFECTION 01/19/2013 MAX TORRES DDS J 112.0 CANDIDIASIS OF MOUTH 01/19/2013 MAX TORRES DDS 911.0 ABRASION OR FRICTION BURN OF TRUNK WITHOUT INFECTION 01/19/2013 JOSUE WHTYE DOA K 112.0 CANDIDIASIS OF MOUTH 01/19/2013 JOSUE WHYTE DOA K 911.0 ABRASION OR FRICTION BURN OF TRUNK WITHOUT INFECTION 01/19/2013 DAMIEN KIM APRN N 112.0 CANDIDIASIS OF MOUTH 01/19/2013 DAMIEN KIM APRN N 911.0 ABRASION OR FRICTION BURN OF TRUNK WITHOUT INFECTION 01/19/2013 PATO DUEÑAS ADILIA K 112.0 CANDIDIASIS OF MOUTH 01/19/2013 JOSUE WHYTE DOA K 911.0 ABRASION OR FRICTION BURN OF TRUNK WITHOUT INFECTION 01/19/2013 LINDA JOHNSONERO MANUFACTURING INSPECTOR, DAMIEN N 112.0 CANDIDIASIS OF MOUTH 01/19/2013 MCKEON CASHERO MANUFACTURING INSPECTOR, DAMIEN N 911.0 ABRASION OR FRICTION BURN OF TRUNK WITHOUT INFECTION 01/19/2013 MANJINDER MANUFACTURING INSPECTOR, RENAN R 112.0 CANDIDIASIS OF MOUTH 01/19/2013 MANJINDER MANUFACTURING INSPECTOR, RENAN R 911.0 ABRASION OR FRICTION BURN [...] FRICTION BURN OF TRUNK WITHOUT INFECTION 01/19/2013 MARIUSZ UPTON LCPC B 112.0 CANDIDIASIS OF MOUTH 01/19/2013 MARIUSZ UPTON LC[facility] B 911.0 ABRASION OR FRICTION BURN OF TRUNK WITHOUT INFECTION 01/19/2013 DANIEL GUERIN PHD 112.0 CANDIDIASIS OF MOUTH 01/19/2013 DANIEL GUERIN PHD 911.0 ABRASION OR FRICTION BURN OF TRUNK WITHOUT INFECTION 01/19/2013 ANSHUL CARBAJAL APRN R 112.0 CANDIDIASIS OF MOUTH 01/19/2013 CECY CARBAJAL APRNIA R 911.0 ABRASION OR FRICTION BURN OF TRUNK WITHOUT INFECTION 01/19/2013 VEL PINA APRNIDI A 112.0 CANDIDIASIS OF MOUTH 01/19/2013 YOVANI TOVAR VONNIE A 911.0 ABRASION OR FRICTION BURN OF TRUNK WITHOUT INFECTION 01/19/2013 WHYTE DO, ADILIA K 112.0 CANDIDIASIS OF MOUTH 01/19/2013 WHYTE DO, ADILIA K 911.0 ABRASION OR FRICTION BURN OF TRUNK WITHOUT INFECTION 01/19/2013 EMILY RIDDLE APRN 112.0 CANDIDIASIS OF MOUTH 01/19/2013 VENKATESH MANUFACTURING INSPECTOR, EMILY Jose 911.0 ABRASION OR FRICTION BURN OF TRUNK WITHOUT INFECTION 01/19/2013 RONNIE BARRERA RN E 112.0 CANDIDIASIS OF MOUTH 01/19/2013 HOLLY KEVIN, RONNIE E 911.0 ABRASION OR FRICTION BURN OF TRUNK WITHOUT INFECTION 01/19/2013 YOVANI MANUFACTURING INSPECTOR, VONNIE A 112.0 CANDIDIASIS OF MOUTH 01/19/2013 YOVANI MANUFACTURING INSPECTOR, VONNIE A 911.0 ABRASION OR FRICTION BURN OF TRUNK WITHOUT INFECTION 01/19/2013 HOLLY KEVIN, RONNIE E 112.0 CANDIDIASIS OF MOUTH 01/19/2013 HOLLY KEVIN, RONNIE E 911.0 ABRASION OR FRICTION BURN OF TRUNK WITHOUT INFECTION 01/19/2013 ZULEIKA DPM, CHRISTOPHER 112.0 CANDIDIASIS OF MOUTH 01/19/2013 ZULEIKA DPM, CHRISTOPHER 911.0 ABRASION OR FRICTION BURN OF TRUNK WITHOUT INFECTION 01/19/2013 YOVANI MANUFACTURING INSPECTOR, VONNIE A 112.0 CANDIDIASIS OF MOUTH 01/19/2013 YOVANI MANUFACTURING INSPECTOR, VONNIE A 911.0 ABRASION OR FRICTION BURN [...] BURN OF TRUNK WITHOUT INFECTION 01/19/2013 MANJINDER MANUFACTURING INSPECTOR, RENAN R 112.0 CANDIDIASIS OF MOUTH 01/19/2013 MANJINDER MANUFACTURING INSPECTOR, RENAN R 911.0 ABRASION OR FRICTION BURN OF TRUNK WITHOUT INFECTION 02/08/2013 682.9 CELLULITIS AND ABSCESS OF UNSPECIFIED SITES 02/08/2013 682.9 CELLULITIS AND ABSCESS OF UNSPECIFIED SITES 02/08/2013 682.9 CELLULITIS AND ABSCESS OF UNSPECIFIED SITES 02/08/2013 682.9 CELLULITIS AND ABSCESS OF UNSPECIFIED SITES 02/08/2013 LENKA SANCHEZS, GORDON Qiu 682.9 CELLULITIS AND ABSCESS OF UNSPECIFIED SITES 02/08/2013 BRIAN TOSCANO, MAX Fraga 682.9 CELLULITIS AND ABSCESS OF UNSPECIFIED SITES 02/08/2013 WHYTE DO, ADILIA K 682.9 CELLULITIS AND ABSCESS OF UNSPECIFIED SITES 02/08/2013 LINDA JOHNSONERO MANUFACTURING INSPECTOR, DAMIEN N 682.9 CELLULITIS AND ABSCESS OF UNSPECIFIED SITES 02/08/2013 WHYTE DO, ADILIA K 682.9 CELLULITIS AND ABSCESS OF UNSPECIFIED SITES 02/08/2013 LINDA JOHNSONERO MANUFACTURING INSPECTOR, DAMIEN N 682.9 CELLULITIS AND ABSCESS OF UNSPECIFIED SITES 02/08/2013 MANJINDER MANUFACTURING INSPECTOR, RENAN R 682.9 CELLULITIS AND ABSCESS OF UNSPECIFIED SITES 02/08/2013 WHYTE DO, ADILIA K 682.9 CELLULITIS AND ABSCESS OF UNSPECIFIED SITES 02/08/2013 BRIAN SANCHEZS, WARREN Kuo 682.9 CELLULITIS AND ABSCESS OF UNSPECIFIED SITES 02/08/2013 WHYTE DO, ADILIA K 682.9 CELLULITIS AND ABSCESS OF UNSPECIFIED SITES 02/08/2013 WHYTE DO, ADILIA K 682.9 CELLULITIS AND ABSCESS OF UNSPECIFIED SITES 02/08/2013 WON CARMONA, MARIUSZ Qiu 682.9 CELLULITIS AND ABSCESS OF UNSPECIFIED SITES 02/08/2013 APOORVA RAMIREZ, DANIEL Pickens 682.9 CELLULITIS AND ABSCESS OF UNSPECIFIED SITES 02/08/2013 RAVEN MANUFACTURING INSPECTOR, ANSHUL R 682.9 CELLULITIS AND ABSCESS OF UNSPECIFIED SITES 02/08/2013 YOVANI PEREZN, VONNIE A 682.9 CELLULITIS AND ABSCESS OF UNSPECIFIED SITES 02/08/2013 WHYTE DO, ADILIA K 682.9 CELLULITIS AND ABSCESS OF UNSPECIFIED SITES 02/08/2013 VENKATESH PEREZNEMILY 682.9 CELLULITIS AND ABSCESS OF UNSPECIFIED SITES [...] UNSPECIFIED 02/16/2013 493.90 ASTHMA UNSPECIFIED 02/16/2013 LENKA SANCHEZS, GORDON Qiu 493.90 ASTHMA UNSPECIFIED 02/16/2013 BRIAN SANCHEZS, MAX Fraga 493.90 ASTHMA UNSPECIFIED 02/16/2013 WHYTE DO, ADILIA K 493.90 ASTHMA UNSPECIFIED 02/16/2013 LINDA JOHNSONERO MANUFACTURING INSPECTOR, DAMIEN N 493.90 ASTHMA UNSPECIFIED 02/16/2013 WHYTE DO, ADILIA K 493.90 ASTHMA UNSPECIFIED 02/16/2013 MCKEON ALEXERO MANUFACTURING INSPECTOR, DAMIEN N 493.90 ASTHMA UNSPECIFIED 02/16/2013 MANJINDER MANUFACTURING INSPECTOR, RENAN Ortega 493.90 ASTHMA UNSPECIFIED 02/16/2013 WHYTE DO, ADILIA K 493.90 ASTHMA UNSPECIFIED 02/16/2013 BRIAN DDS, WARREN Kuo 493.90 ASTHMA UNSPECIFIED 02/16/2013 WHYTE DO, ADILIA K 493.90 ASTHMA UNSPECIFIED 02/16/2013 WHYTE DO, ADILIA K 493.90 ASTHMA UNSPECIFIED 02/16/2013 WON CARMONA, MARIUSZ Qiu 493.90 ASTHMA UNSPECIFIED 02/16/2013 APOORVA PHD, DANIEL Pickens 493.90 ASTHMA UNSPECIFIED 02/16/2013 RAVEN PEREZN, ANSHUL Ortega 493.90 ASTHMA UNSPECIFIED 02/16/2013 YOVANI PEREZN, VONNIE A 493.90 ASTHMA UNSPECIFIED 02/16/2013 WHYTE DO, ADILIA K 493.90 ASTHMA UNSPECIFIED 02/16/2013 VENKATESH MANUFACTURING INSPECTOR, EMILY Garcia 493.90 ASTHMA UNSPECIFIED 02/16/2013 HOLLY KEVIN, RONNIE E 493.90 ASTHMA UNSPECIFIED 02/16/2013 YOVANI PEREZN, VONNIE A 493.90 ASTHMA UNSPECIFIED 02/16/2013 HOLLY KEVIN, RONNIE E 493.90 ASTHMA UNSPECIFIED 02/16/2013 ZULEIKA DPM, CHRISTOPHER 493.90 ASTHMA UNSPECIFIED 02/16/2013 YOVANI MANUFACTURING INSPECTOR, VONNIE A 493.90 ASTHMA UNSPECIFIED 02/16/2013 WHYTE DO, ADILIA K 493.90 ASTHMA UNSPECIFIED 02/16/2013 HOLLY KEVIN, RONNIE E 493.90 ASTHMA UNSPECIFIED 02/16/2013 ZULEIKA DPM, CHRISTOPHER 493.90 ASTHMA UNSPECIFIED 02/16/2013 HOLLY KEVIN, RONNIE E 493.90 ASTHMA UNSPECIFIED 02/16/2013 WHYTE DO, ADILIA K 493.90 ASTHMA UNSPECIFIED 02/16/2013 ZULEIKA DPM, CHRISTOPHER 493.90 ASTHMA UNSPECIFIED 02/16/2013 ZULEIKA DPM, CHRISTOPHER 493.90 ASTHMA UNSPECIFIED 02/16/2013 PATO DOJOSUEA K 493.90 ASTHMA UNSPECIFIED 02/16/2013 MANJINDER TOVAR, RENAN R 493.90 ASTHMA UNSPECIFIED 03/08/2013 625.9 UNSPECIFIED SYMPTOM ASSOCIATED WITH FEMALE GENITAL ORGANS 03/08/2013 V72.31 COAL SAMPLE TESTER EXAM, ROUTINE 03/08/2013 625.9 UNSPECIFIED SYMPTOM ASSOCIATED WITH FEMALE GENITAL ORGANS 03/08/2013 V72.31 COAL SAMPLE TESTER EXAM, ROUTINE 03/08/2013 LENKA DDS, GRODON B 625.9 UNSPECIFIED SYMPTOM ASSOCIATED WITH FEMALE GENITAL ORGANS 03/08/2013 LENKA DDS, GORDON B V72.31 COAL SAMPLE TESTER EXAM, ROUTINE 03/08/2013 MAX TORRES DDS 625.9 UNSPECIFIED SYMPTOM ASSOCIATED WITH FEMALE GENITAL ORGANS 03/08/2013 MAX TORRES DDS V72.31 COAL SAMPLE TESTER EXAM, ROUTINE 03/08/2013 WHYTE DO ADILIA K 625.9 UNSPECIFIED SYMPTOM ASSOCIATED WITH FEMALE GENITAL ORGANS 03/08/2013 WHYTE DO ADILIA K V72.31 COAL SAMPLE TESTER EXAM, ROUTINE 03/08/2013 DAMIEN KIM APRN N 625.9 UNSPECIFIED SYMPTOM ASSOCIATED WITH FEMALE GENITAL ORGANS 03/08/2013 OCTAVIA KIM APRNCY N V72.31 COAL SAMPLE TESTER EXAM, ROUTINE 03/08/2013 WHYTE DO ADILIA K 625.9 UNSPECIFIED SYMPTOM ASSOCIATED WITH FEMALE GENITAL ORGANS 03/08/2013 WHYTE DO ADILIA K V72.31 COAL SAMPLE TESTER EXAM, ROUTINE 03/08/2013 DAMIEN KIM APRN N 625.9 UNSPECIFIED SYMPTOM ASSOCIATED WITH FEMALE GENITAL ORGANS 03/08/2013 DAMIEN KIM APRN N V72.31 COAL SAMPLE TESTER EXAM, ROUTINE 03/08/2013 PAIGE DUNBAR APRNINA R 625.9 UNSPECIFIED SYMPTOM ASSOCIATED WITH FEMALE GENITAL ORGANS 03/08/2013 MANJINDER TOVAR RENAN R V72.31 COAL SAMPLE TESTER EXAM, ROUTINE 03/08/2013 WHYTE DO ADILIA K 625.9 UNSPECIFIED SYMPTOM ASSOCIATED WITH FEMALE GENITAL ORGANS 03/08/2013 WHYTE DO, ADILIA K V72.31 COAL SAMPLE TESTER EXAM, ROUTINE 03/08/2013 WARREN TORRES DDS 625.9 UNSPECIFIED SYMPTOM ASSOCIATED WITH FEMALE GENITAL ORGANS 03/08/2013 WARREN TORRES DDS V72.31 COAL SAMPLE TESTER EXAM, ROUTINE 03/08/2013 WHYTE DO, ADILIA K 625.9 UNSPECIFIED SYMPTOM ASSOCIATED WITH FEMALE GENITAL ORGANS 03/08/2013 WHYTE DO, ADILIA K V72.31 COAL SAMPLE TESTER EXAM, ROUTINE 03/08/2013 WHYTE DO, ADILIA K 625.9 UNSPECIFIED SYMPTOM ASSOCIATED WITH FEMALE GENITAL ORGANS 03/08/2013 WHYTE DO, ADILIA K V72.31 COAL SAMPLE TESTER EXAM, ROUTINE 03/08/2013 MARIUSZ UPTON LCPC 625.9 UNSPECIFIED SYMPTOM ASSOCIATED WITH FEMALE GENITAL ORGANS 03/08/2013 MARIUSZ UPTON LCPC V72.31 COAL SAMPLE TESTER EXAM, ROUTINE 03/08/2013 DANIEL GUERIN PHD 625.9 UNSPECIFIED SYMPTOM ASSOCIATED WITH FEMALE GENITAL ORGANS 03/08/2013 DANIEL GUERIN PHD V72.31 COAL SAMPLE TESTER EXAM, ROUTINE 03/08/2013 ANSHUL CARBAJAL APRN R 625.9 UNSPECIFIED SYMPTOM ASSOCIATED WITH FEMALE GENITAL ORGANS 03/08/2013 ANSHUL CARBAJAL APRN R V72.31 COAL SAMPLE TESTER EXAM, ROUTINE 03/08/2013 VONNIE PINA APRN A 625.9 UNSPECIFIED SYMPTOM ASSOCIATED WITH FEMALE GENITAL ORGANS 03/08/2013 YOVANI TOVAR VONNIE A V72.31 COAL SAMPLE TESTER EXAM, ROUTINE 03/08/2013 WHYTE DO ADILIA K 625.9 UNSPECIFIED SYMPTOM ASSOCIATED WITH FEMALE GENITAL ORGANS 03/08/2013 WHYTE DO, ADILIA K V72.31 COAL SAMPLE TESTER EXAM, ROUTINE 03/08/2013 EMILY RIDDLE APRN L 625.9 UNSPECIFIED SYMPTOM ASSOCIATED WITH FEMALE GENITAL ORGANS 03/08/2013 ERICK RIDDLE APRNA L V72.31 COAL SAMPLE TESTER EXAM, ROUTINE 03/08/2013 RONNIE BARRERA RN 625.9 UNSPECIFIED SYMPTOM ASSOCIATED WITH FEMALE GENITAL ORGANS 03/08/2013 RONNIE BARRERA RN V72.31 COAL SAMPLE TESTER EXAM, ROUTINE 03/08/2013 VONNIE PINA APRN A 625.9 UNSPECIFIED SYMPTOM ASSOCIATED WITH FEMALE GENITAL ORGANS 03/08/2013 YOVANI TOVAR VONNIE A V72.31 COAL SAMPLE TESTER EXAM, ROUTINE 03/08/2013 RONNIE BARRERA RN 625.9 UNSPECIFIED SYMPTOM ASSOCIATED WITH FEMALE GENITAL ORGANS 03/08/2013 RONNIE BARRERA RN V72.31 COAL SAMPLE TESTER EXAM, ROUTINE 03/08/2013 CHRISTOPHER TO DPM 625.9 UNSPECIFIED SYMPTOM ASSOCIATED WITH FEMALE GENITAL ORGANS 03/08/2013 ZULEIKA DPM, CHRISTOPHER V72.31 COAL SAMPLE TESTER EXAM, ROUTINE 03/08/2013 VONNIE PINA APRN 625.9 UNSPECIFIED SYMPTOM ASSOCIATED WITH FEMALE GENITAL ORGANS 03/08/2013 VONNIE PINA APRN V72.31 COAL SAMPLE TESTER EXAM, ROUTINE 03/08/2013 WHYTE DO, ADILIA K 625.9 UNSPECIFIED SYMPTOM ASSOCIATED WITH FEMALE GENITAL ORGANS 03/08/2013 WHYTE DO, ADILIA K V72.31 COAL SAMPLE TESTER EXAM, ROUTINE 03/08/2013 RONNIE BARRERA RN 625.9 UNSPECIFIED SYMPTOM ASSOCIATED WITH FEMALE GENITAL ORGANS 03/08/2013 RONNIE BARRERA RN V72.31 COAL SAMPLE TESTER EXAM, ROUTINE 03/08/2013 ZULEIKA DPM, CHRISTOPHER 625.9 UNSPECIFIED SYMPTOM ASSOCIATED WITH FEMALE GENITAL ORGANS 03/08/2013 ZULEIKA DPM, CHRISTOPHER V72.31 COAL SAMPLE TESTER EXAM, ROUTINE 03/08/2013 RONNIE BARRERA RN 625.9 UNSPECIFIED SYMPTOM ASSOCIATED WITH FEMALE GENITAL ORGANS 03/08/2013 RONNIE BARRERA RN V72.31 COAL SAMPLE TESTER EXAM, ROUTINE 03/08/2013 WHYTE DO, ADILIA K 625.9 UNSPECIFIED SYMPTOM ASSOCIATED WITH FEMALE GENITAL ORGANS 03/08/2013 WHYTE DO, ADILIA K V72.31 COAL SAMPLE TESTER EXAM, ROUTINE 03/08/2013 ZULEIKA DPM, CHRISTOPHER 625.9 UNSPECIFIED SYMPTOM ASSOCIATED WITH FEMALE GENITAL ORGANS 03/08/2013 ZULEIKA DPM, CHRISTOPHER V72.31 COAL SAMPLE TESTER EXAM, ROUTINE 03/08/2013 ZULEIKA DPM, CHRISTOPHER 625.9 UNSPECIFIED SYMPTOM ASSOCIATED WITH FEMALE GENITAL ORGANS 03/08/2013 ZULEIKA DPM, CHRISTOPHER V72.31 COAL SAMPLE TESTER EXAM, ROUTINE 03/08/2013 WHYTE DO, ADILIA K 625.9 UNSPECIFIED SYMPTOM ASSOCIATED WITH FEMALE GENITAL ORGANS 03/08/2013 WHYTE DO, ADILIA K V72.31 COAL SAMPLE TESTER EXAM, ROUTINE 03/08/2013 RENAN DUNBAR APRN 625.9 UNSPECIFIED SYMPTOM ASSOCIATED WITH FEMALE GENITAL ORGANS 03/08/2013 RENAN DUNBAR APRN V72.31 COAL SAMPLE TESTER EXAM, ROUTINE 03/16/2013 728.85 SPASM OF MUSCLE [...] OTHER NONSPECIFIC SKIN ERUPTION 03/16/2013 MCKEON CASHERO MANUFACTURING INSPECTOR, DAMIEN N 728.85 SPASM OF MUSCLE 03/16/2013 MCKEON CASHERO MANUFACTURING INSPECTOR, DAMIEN N 782.0 DISTURBANCE OF SKIN SENSATION 03/16/2013 MCKEON CASHERO MANUFACTURING INSPECTOR, DAMIEN N 782.1 RASH AND OTHER NONSPECIFIC SKIN ERUPTION 03/16/2013 WHYTE DO, ADILIA K 728.85 SPASM OF MUSCLE 03/16/2013 WHYTE DO, ADILIA K 782.0 DISTURBANCE OF SKIN SENSATION 03/16/2013 WHYTE DO, ADILIA K 782.1 RASH AND OTHER NONSPECIFIC SKIN ERUPTION 03/16/2013 MCKEON CASHERO MANUFACTURING INSPECTOR DAMIEN N 728.85 SPASM OF MUSCLE 03/16/2013 MCKEON CASHERO MANUFACTURING INSPECTOR, DAMIEN N 782.0 DISTURBANCE OF SKIN SENSATION 03/16/2013 MCKEON CASHERO MANUFACTURING INSPECTOR, DAMIEN N 782.1 RASH AND OTHER NONSPECIFIC SKIN ERUPTION 03/16/2013 MANJINDER MANUFACTURING INSPECTOR, RENAN R 728.85 SPASM OF MUSCLE 03/16/2013 MANJINDER MANUFACTURING INSPECTOR, RENAN R 782.0 DISTURBANCE OF SKIN SENSATION 03/16/2013 MANJINDER MANUFACTURING INSPECTOR, RENAN R 782.1 RASH AND OTHER NONSPECIFIC [...] RASH AND OTHER NONSPECIFIC SKIN ERUPTION 03/16/2013 MARIUSZ UPTON LCPC B 728.85 SPASM OF MUSCLE 03/16/2013 MARIUSZ UPTON LCPC B 782.0 DISTURBANCE OF SKIN SENSATION 03/16/2013 MARIUSZ UPTON LCPC B 782.1 RASH AND OTHER NONSPECIFIC SKIN ERUPTION 03/16/2013 DANIEL GUERIN PHD 728.85 SPASM OF MUSCLE 03/16/2013 DANIEL GUERIN PHD 782.0 DISTURBANCE OF SKIN SENSATION 03/16/2013 DANIEL GUERIN PHD 782.1 RASH AND OTHER NONSPECIFIC SKIN ERUPTION 03/16/2013 CECY CARBAJAL APRNIA R 728.85 SPASM OF MUSCLE 03/16/2013 CECY CARBAJAL APRNIA R 782.0 DISTURBANCE OF SKIN SENSATION 03/16/2013 CECY CARBAJAL APRNIA R 782.1 RASH AND OTHER NONSPECIFIC SKIN ERUPTION 03/16/2013 YOVANI TOVAR VONNIE A 728.85 SPASM OF MUSCLE 03/16/2013 YOVANI MANUFACTURING INSPECTOR VONNIE A 782.0 DISTURBANCE OF SKIN SENSATION 03/16/2013 YOVANI MANUFACTURING INSPECTOR, VONNIE A 782.1 RASH AND OTHER NONSPECIFIC SKIN ERUPTION 03/16/2013 WHYTE DO, ADILIA K 728.85 SPASM OF MUSCLE 03/16/2013 WHYTE DO, ADILIA K 782.0 DISTURBANCE OF SKIN SENSATION 03/16/2013 WHYTE DO, ADILIA K 782.1 RASH AND OTHER NONSPECIFIC SKIN ERUPTION 03/16/2013 MADL MANUFACTURING INSPECTOR, EMILY L 728.85 SPASM OF MUSCLE 03/16/2013 MADL MANUFACTURING INSPECTOR, EMILY L 782.0 DISTURBANCE OF SKIN SENSATION 03/16/2013 MADL MANUFACTURING INSPECTOR, EMILY L 782.1 RASH AND OTHER NONSPECIFIC SKIN ERUPTION 03/16/2013 RONNIE BARRERA RN 728.85 SPASM OF MUSCLE 03/16/2013 RONNIE BARRERA RN E 782.0 DISTURBANCE OF SKIN SENSATION 03/16/2013 RONNIE BARRERA RN E 782.1 RASH AND OTHER NONSPECIFIC SKIN ERUPTION 03/16/2013 YOVANI MANUFACTURING INSPECTOR, VONNIE A 728.85 SPASM OF MUSCLE 03/16/2013 YOVANI MANUFACTURING INSPECTOR, VONNIE A 782.0 DISTURBANCE OF SKIN SENSATION 03/16/2013 YOVANI MANUFACTURING INSPECTOR, VONNIE A 782.1 RASH AND OTHER NONSPECIFIC SKIN ERUPTION 03/16/2013 RONNIE BARRERA RN 728.85 SPASM OF MUSCLE 03/16/2013 RONNIE BARRERA RN E 782.0 DISTURBANCE OF SKIN SENSATION 03/16/2013 RONNIE BARRERA RN E 782.1 RASH AND OTHER NONSPECIFIC SKIN ERUPTION 03/16/2013 ZULEIKA DPM, CHRISTOPHER 728.85 SPASM OF MUSCLE 03/16/2013 ZULEIKA DPM, CHRISTOPHER 782.0 DISTURBANCE OF SKIN SENSATION 03/16/2013 ZULEIKA DPM, CHRISTOPHER 782.1 RASH AND OTHER NONSPECIFIC SKIN ERUPTION 03/16/2013 YOVANI MANUFACTURING INSPECTOR, VONNIE A 728.85 SPASM OF MUSCLE 03/16/2013 YOVANI MANUFACTURING INSPECTOR, VONNIE A 782.0 DISTURBANCE OF SKIN SENSATION 03/16/2013 YOVANI MANUFACTURING INSPECTOR, VONNIE A 782.1 RASH AND OTHER NONSPECIFIC SKIN ERUPTION 03/16/2013 WHYTE DO, ADILIA K 728.85 SPASM OF MUSCLE 03/16/2013 WHYTE DO, ADILIA K 782.0 DISTURBANCE OF SKIN SENSATION 03/16/2013 WHYTE DO, ADILIA K 782.1 RASH AND OTHER NONSPECIFIC SKIN ERUPTION 03/16/2013 RONNIE BARRERA RN 728.85 SPASM OF MUSCLE 03/16/2013 RONNIE BARRERA RN 782.0 DISTURBANCE OF SKIN SENSATION 03/16/2013 RONNIE BARRERA RN E 782.1 RASH AND OTHER NONSPECIFIC SKIN ERUPTION 03/16/2013 ZULEIKA DPM, CHRISTOPHER 728.85 SPASM OF MUSCLE 03/16/2013 ZULEIKA DPM, CHRISTOPHER 782.0 DISTURBANCE OF SKIN SENSATION 03/16/2013 ZULEIKA DPM, CHRISTOPHER 782.1 RASH AND OTHER NONSPECIFIC SKIN ERUPTION 03/16/2013 RONNIE BARRERA RN E 728.85 SPASM OF MUSCLE 03/16/2013 HOLLY [...] AND OTHER NONSPECIFIC SKIN ERUPTION 03/16/2013 MANJINDER MANUFACTURING INSPECTOR, RENAN R 728.85 SPASM OF MUSCLE 03/16/2013 MANJINDER MANUFACTURING INSPECTOR, RENAN R 782.0 DISTURBANCE OF SKIN SENSATION 03/16/2013 MANJINDER MANUFACTURING INSPECTOR, RENAN R 782.1 RASH AND OTHER NONSPECIFIC SKIN ERUPTION 04/28/2013 728.87 MUSCLE WEAKNESS (GENERALIZED) 04/28/2013 729.5 [...] 729.5 PAIN IN LIMB 04/28/2013 MCKEON CASHERO MANUFACTURING INSPECTOR, DAMIEN N 728.87 MUSCLE WEAKNESS (GENERALIZED) 04/28/2013 MCKEON CASHERO MANUFACTURING INSPECTOR, DAMIEN N 729.5 PAIN IN LIMB 04/28/2013 WHYTE DO, ADILIA K 728.87 MUSCLE WEAKNESS (GENERALIZED) 04/28/2013 WHYTE DO, ADILIA K 729.5 PAIN IN LIMB 04/28/2013 MCKEON CASHERO MANUFACTURING INSPECTOR, DAMIEN N 728.87 MUSCLE WEAKNESS (GENERALIZED) 04/28/2013 MCKEON CASHERO MANUFACTURING INSPECTOR, DAMIEN N 729.5 PAIN IN LIMB 04/28/2013 MANJINDER MANUFACTURING INSPECTOR, RENAN R 728.87 MUSCLE WEAKNESS (GENERALIZED) 04/28/2013 MANJINDER MANUFACTURING INSPECTOR, RENAN R 729.5 PAIN IN LIMB 04/28/2013 [...] DANIEL Pickens 728.87 MUSCLE WEAKNESS (GENERALIZED) 04/28/2013 DANIEL GUERIN PHD 729.5 PAIN IN LIMB 04/28/2013 CARBAJAL MANUFACTURING INSPECTOR, ANSHUL R 728.87 MUSCLE WEAKNESS (GENERALIZED) 04/28/2013 CARBAJAL MANUFACTURING INSPECTORLORRIEANSHUL R 729.5 PAIN IN LIMB 04/28/2013 YOVANI MANUFACTURING INSPECTOR, VONNIE A 728.87 MUSCLE WEAKNESS (GENERALIZED) 04/28/2013 YOVANI MANUFACTURING INSPECTOR, VONNIE A 729.5 PAIN IN LIMB 04/28/2013 WHYTE DO, ADILIA K 728.87 MUSCLE WEAKNESS (GENERALIZED) 04/28/2013 WHYTE DO, ADILIA K 729.5 PAIN IN LIMB 04/28/2013 MADL MANUFACTURING INSPECTOR, EMILY L 728.87 MUSCLE WEAKNESS (GENERALIZED) 04/28/2013 MADL MANUFACTURING INSPECTOR, EMILY L 729.5 PAIN IN LIMB 04/28/2013 RONNIE BARRERA RN 728.87 MUSCLE WEAKNESS (GENERALIZED) 04/28/2013 RONNIE BARRERA RN 729.5 PAIN IN LIMB 04/28/2013 YOVANI MANUFACTURING INSPECTOR, VONNIE A 728.87 MUSCLE WEAKNESS (GENERALIZED) 04/28/2013 YOVANI MANUFACTURING INSPECTOR, VONNIE A 729.5 PAIN IN LIMB 04/28/2013 RONNIE BARRERA RN E 728.87 MUSCLE WEAKNESS (GENERALIZED) 04/28/2013 RONNIE BARRERA RN 729.5 PAIN IN LIMB 04/28/2013 ZULEIKA DPM, CHRISTOPHER 728.87 MUSCLE WEAKNESS (GENERALIZED) 04/28/2013 ZULEIKA DPM, CHRISTOPHER 729.5 PAIN IN LIMB 04/28/2013 YOVANI MANUFACTURING INSPECTOR, VONNIE A 728.87 MUSCLE WEAKNESS (GENERALIZED) 04/28/2013 YOVANI MANUFACTURING INSPECTOR, VONNIE A 729.5 PAIN IN LIMB 04/28/2013 WHYTE DO, ADILIA K 728.87 MUSCLE WEAKNESS (GENERALIZED) 04/28/2013 WHYTE DO, ADILIA K 729.5 PAIN IN LIMB 04/28/2013 RONNIE BARRERA RN 728.87 MUSCLE WEAKNESS (GENERALIZED) 04/28/2013 RONNIE BARRERA RN 729.5 PAIN IN LIMB 04/28/2013 ZULEIKA DPM, CHRISTOPHER 728.87 MUSCLE WEAKNESS (GENERALIZED) 04/28/2013 ZULEIKA DPM, CHRISTOPHER 729.5 PAIN IN LIMB 04/28/2013 RONNIE BARRERA RN 728.87 MUSCLE WEAKNESS (GENERALIZED) 04/28/2013 RONNIE BARRERA RN 729.5 PAIN IN LIMB 04/28/2013 WHYTE DOJOSUEA [...] K 729.5 PAIN IN LIMB 04/28/2013 MANJINDER MANUFACTURING INSPECTOR, RENAN R 728.87 MUSCLE WEAKNESS (GENERALIZED) 04/28/2013 MANJINDER MANUFACTURING INSPECTOR, RENNA R 729.5 PAIN IN LIMB 08/06/2013 ADILIA WHYTE DO K 346.90 MIGRAINE UNSPECIFIED WITHOUT MENTION OF INTRACTABLE MIGRAINE WITHOUT MENTION OF STATUS MIGRAINOSUS 08/06/2013 ADILIA WHYTE DO K V15.09 PERSONAL HISTORY OF OTHER ALLERGY OTHER THAN TO MEDICINAL AGENTS 08/06/2013 OCTAVIA KIM APRNCY N 346.90 MIGRAINE UNSPECIFIED WITHOUT MENTION OF [...] ALLERGY OTHER THAN TO MEDICINAL AGENTS 08/06/2013 MCKEON JOVON TOVAR, DAMIEN N 346.90 MIGRAINE UNSPECIFIED WITHOUT MENTION OF INTRACTABLE MIGRAINE WITHOUT MENTION OF STATUS MIGRAINOSUS 08/06/2013 MCKEON ALEXERO LA DAMEIN N V15.09 PERSONAL HISTORY OF OTHER ALLERGY OTHER THAN TO MEDICINAL AGENTS 08/06/2013 MANJINDER MANUFACTURING INSPECTOR, RENAN R 346.90 MIGRAINE UNSPECIFIED WITHOUT MENTION OF INTRACTABLE MIGRAINE WITHOUT MENTION OF STATUS MIGRAINOSUS 08/06/2013 MANJINDER MANUFACTURING INSPECTOR, RENAN R V15.09 PERSONAL HISTORY OF OTHER ALLERGY OTHER THAN TO MEDICINAL AGENTS 08/06/2013 ADILIA WHYTE DO K 346.90 MIGRAINE UNSPECIFIED WITHOUT MENTION OF INTRACTABLE MIGRAINE WITHOUT MENTION OF STATUS MIGRAINOSUS 08/06/2013 JOSUE WHYTE DOA K V15.09 PERSONAL HISTORY OF OTHER ALLERGY [...] OF STATUS MIGRAINOSUS 08/06/2013 ANSHUL CARBAJAL APRN V15.09 PERSONAL HISTORY OF OTHER ALLERGY OTHER [...] ALLERGY OTHER THAN TO MEDICINAL AGENTS 08/06/2013 DANAY RIDDLE APRNWNYCelio Garcia 346.90 MIGRAINE UNSPECIFIED WITHOUT MENTION OF INTRACTABLE MIGRAINE WITHOUT MENTION OF STATUS MIGRAINOSUS 08/06/2013 DANAY RIDDLE APRNWNYA Jose V15.09 PERSONAL HISTORY OF OTHER ALLERGY OTHER THAN TO MEDICINAL AGENTS 08/06/2013 RONNIE BARRERA RN 346.90 MIGRAINE UNSPECIFIED WITHOUT MENTION OF INTRACTABLE MIGRAINE WITHOUT MENTION OF STATUS MIGRAINOSUS 08/06/2013 RONNIE BARRERA RN V15.09 PERSONAL HISTORY OF OTHER ALLERGY OTHER THAN TO MEDICINAL AGENTS 08/06/2013 VEL PINA APRNIDI A 346.90 MIGRAINE UNSPECIFIED WITHOUT MENTION OF INTRACTABLE MIGRAINE WITHOUT MENTION OF STATUS MIGRAINOSUS 08/06/2013 YOVANIIDANIA TOVARVELVONNIE A V15.09 PERSONAL HISTORY OF OTHER ALLERGY [...] ALLERGY OTHER THAN TO MEDICINAL AGENTS 08/06/2013 VEL PINA APRNIDI A 346.90 MIGRAINE UNSPECIFIED WITHOUT MENTION OF INTRACTABLE MIGRAINE WITHOUT MENTION OF STATUS MIGRAINOSUS 08/06/2013 YOVANI PEREZNVELVONNIE A V15.09 PERSONAL HISTORY OF OTHER ALLERGY OTHER THAN TO MEDICINAL AGENTS 08/06/2013 WHYTE DO, ADILIA K 346.90 MIGRAINE UNSPECIFIED WITHOUT MENTION OF INTRACTABLE MIGRAINE WITHOUT MENTION OF STATUS MIGRAINOSUS 08/06/2013 WHYTE DO, ADILIA K V15.09 PERSONAL HISTORY OF OTHER [...] ALLERGY OTHER THAN TO MEDICINAL AGENTS 08/06/2013 JOSUE WHYTE DOA K 346.90 MIGRAINE UNSPECIFIED WITHOUT MENTION OF INTRACTABLE MIGRAINE WITHOUT MENTION OF STATUS MIGRAINOSUS 08/06/2013 PATO DUEÑAS ADILIA K V15.09 PERSONAL HISTORY OF OTHER ALLERGY OTHER THAN TO MEDICINAL AGENTS 08/06/2013 MANJINDER TOVAR RENAN R 346.90 MIGRAINE UNSPECIFIED WITHOUT MENTION OF INTRACTABLE MIGRAINE WITHOUT MENTION OF STATUS MIGRAINOSUS 08/06/2013 MANJINDER MANUFACTURING INSPECTOR RENAN R V15.09 PERSONAL HISTORY OF OTHER ALLERGY OTHER THAN TO MEDICINAL AGENTS 08/19/2013 LINDA CASHNIK MANUFACTURING INSPECTOR, DAMIEN N 465.9 ACUTE UPPER RESPIRATORY INFECTIONS OF UNSPECIFIED SITE 08/19/2013 MCKEON CASHERO MANUFACTURING INSPECTOR, DAMIEN N 780.60 FEVER UNSPECIFIED 08/19/2013 MCKEON CASHERO MANUFACTURING INSPECTOR, DAMIEN N 787.01 NAUSEA WITH VOMITING 08/19/2013 WHYTE DO ADILIA K 465.9 ACUTE UPPER RESPIRATORY INFECTIONS OF UNSPECIFIED SITE 08/19/2013 WHYTE DO, ADILIA K 780.60 FEVER UNSPECIFIED 08/19/2013 WHYTE , ADILIA K 787.01 NAUSEA WITH VOMITING 08/19/2013 MCKEON CASHERO MANUFACTURING INSPECTOR, DAMIEN N 465.9 ACUTE UPPER RESPIRATORY INFECTIONS OF UNSPECIFIED SITE 08/19/2013 MCKEON CASHERO MANUFACTURING INSPECTOR, DAMIEN N 780.60 FEVER UNSPECIFIED 08/19/2013 LINDA JOHNSONERO MANUFACTURING INSPECTOR, DAMIEN N 787.01 NAUSEA WITH VOMITING 08/19/2013 MANJINDER MANUFACTURING INSPECTOR, RENAN R 465.9 ACUTE UPPER RESPIRATORY INFECTIONS OF UNSPECIFIED SITE 08/19/2013 MANJINDER MANUFACTURING INSPECTOR, RENAN R 780.60 FEVER UNSPECIFIED 08/19/2013 MANJINDER MANUFACTURING INSPECTOR, RENAN R 787.01 NAUSEA WITH VOMITING 08/19/2013 [...] WARREN D 787.01 NAUSEA WITH VOMITING 08/19/2013 WHYTE DO, [...] NAUSEA WITH VOMITING 08/19/2013 MARIUSZ UPTON LCPC B 465.9 ACUTE UPPER RESPIRATORY INFECTIONS OF UNSPECIFIED SITE 08/19/2013 MARIUSZ UPTON LCPC B 780.60 FEVER UNSPECIFIED 08/19/2013 WON CARMONA, MARIUSZ B 787.01 NAUSEA WITH VOMITING 08/19/2013 DANIEL GUERIN PHD 465.9 ACUTE UPPER RESPIRATORY INFECTIONS OF UNSPECIFIED SITE 08/19/2013 DANIEL GUERIN PHD 780.60 FEVER UNSPECIFIED 08/19/2013 DANIEL GUERIN PHD 787.01 NAUSEA WITH VOMITING 08/19/2013 ANSHUL CARBAJAL APRN R 465.9 ACUTE UPPER RESPIRATORY INFECTIONS OF UNSPECIFIED SITE 08/19/2013 ANSHUL CARBAJAL APRN R 780.60 FEVER UNSPECIFIED 08/19/2013 ANSHUL CARBAJAL APRN 787.01 NAUSEA WITH VOMITING 08/19/2013 YOVANI MANUFACTURING INSPECTOR, VONNIE A 465.9 ACUTE UPPER RESPIRATORY INFECTIONS OF UNSPECIFIED SITE 08/19/2013 YOVANI MANUFACTURING INSPECTOR, VONNIE A 780.60 FEVER UNSPECIFIED 08/19/2013 YOVANI MANUFACTURING INSPECTOR, VONNIE A 787.01 NAUSEA WITH VOMITING 08/19/2013 WHYTE DO, ADILIA K 465.9 ACUTE UPPER RESPIRATORY INFECTIONS OF UNSPECIFIED SITE 08/19/2013 WHYTE DO, ADILIA K 780.60 FEVER UNSPECIFIED 08/19/2013 WHYTE DO, ADILIA K 787.01 NAUSEA WITH VOMITING 08/19/2013 MADL MANUFACTURING INSPECTOR, EMILY L 465.9 ACUTE UPPER RESPIRATORY INFECTIONS OF UNSPECIFIED SITE 08/19/2013 MADL MANUFACTURING INSPECTOR, EMILY L 780.60 FEVER UNSPECIFIED 08/19/2013 MADL MANUFACTURING INSPECTOR, EMILY L 787.01 NAUSEA WITH VOMITING 08/19/2013 HOLYL KEVIN, RONNIE E 465.9 ACUTE UPPER RESPIRATORY INFECTIONS OF UNSPECIFIED SITE 08/19/2013 HOLLY KEVIN, RONNIE E 780.60 FEVER UNSPECIFIED 08/19/2013 HOLLY KEVIN, RONNIE E 787.01 NAUSEA WITH VOMITING 08/19/2013 YOVANI MANUFACTURING INSPECTOR, VONNIE A 465.9 ACUTE UPPER RESPIRATORY INFECTIONS OF UNSPECIFIED SITE 08/19/2013 YOVANI MANUFACTURING INSPECTOR, VONNIE A 780.60 FEVER UNSPECIFIED 08/19/2013 YOVANI MANUFACTURING INSPECTOR, VONNIE A 787.01 NAUSEA WITH VOMITING 08/19/2013 [...] CHRISTOPHER 787.01 NAUSEA WITH VOMITING 08/19/2013 YOVANI MANUFACTURING INSPECTOR, VONNIE A 465.9 ACUTE UPPER RESPIRATORY INFECTIONS OF UNSPECIFIED SITE 08/19/2013 YOVANI MANUFACTURING INSPECTOR, VONNIE A 780.60 FEVER UNSPECIFIED 08/19/2013 YOVANI MANUFACTURING INSPECTOR, VONNIE A 787.01 NAUSEA WITH VOMITING 08/19/2013 [...] ADILIA K 787.01 NAUSEA WITH VOMITING 08/19/2013 RENAN DUNBAR APRN 465.9 ACUTE UPPER RESPIRATORY INFECTIONS OF UNSPECIFIED SITE 08/19/2013 MANJINDER MANUFACTURING INSPECTOR, RENAN R 780.60 FEVER UNSPECIFIED 08/19/2013 MANJINDER MANUFACTURING INSPECTOR, RENAN R 787.01 NAUSEA WITH VOMITING 08/30/2013 WHYTE DO, ADILIA K 789.00 ABDOMINAL PAIN UNSPECIFIED SITE 08/30/2013 MCKEONDAVID SIGALA APRN, DAMIEN N 789.00 ABDOMINAL PAIN [...] 789.00 ABDOMINAL PAIN UNSPECIFIED SITE 08/30/2013 APOORVA RAMIREZ, DANIEL A 789.00 ABDOMINAL PAIN UNSPECIFIED SITE 08/30/2013 RAVEN OTVAR, ANSHUL R 789.00 ABDOMINAL PAIN UNSPECIFIED SITE 08/30/2013 VEL PINA APRNIDI A 789.00 ABDOMINAL PAIN UNSPECIFIED SITE 08/30/2013 WHYTE DO, ADILIA K 789.00 ABDOMINAL PAIN UNSPECIFIED SITE 08/30/2013 EMILY RIDDLE APRN 789.00 ABDOMINAL PAIN UNSPECIFIED SITE 08/30/2013 HOLLY KEVIN, RONNIE E 789.00 ABDOMINAL PAIN UNSPECIFIED SITE 08/30/2013 YOVANI TOVAR VONNIE A 789.00 ABDOMINAL PAIN UNSPECIFIED SITE 08/30/2013 HOLLY KEVIN, RONNIE E 789.00 ABDOMINAL PAIN UNSPECIFIED SITE 08/30/2013 ZULEIKA DPM, CHRISTOPHER 789.00 ABDOMINAL PAIN UNSPECIFIED SITE 08/30/2013 YOVANI TOVAR VONNIE A 789.00 ABDOMINAL PAIN UNSPECIFIED SITE 08/30/2013 [...] 789.00 ABDOMINAL PAIN UNSPECIFIED SITE 08/30/2013 MANJINDER MANUFACTURING INSPECTOR, RENAN R 789.00 ABDOMINAL PAIN UNSPECIFIED SITE 09/28/2013 MANJINDER MANUFACTURING INSPECTOR, RENAN R 787.91 DIARRHEA 09/28/2013 WHYTE DO, ADILIA K 787.91 DIARRHEA 09/28/2013 BRIAN DDS, WARREN D 787.91 DIARRHEA 09/28/2013 WHYTE DO, ADILIA K 787.91 DIARRHEA 09/28/2013 WHYTE DO, ADILIA K 787.91 DIARRHEA 09/28/2013 MARIUSZ UPTON LCPC B 787.91 DIARRHEA 09/28/2013 APOORVA RAMIREZ, DANIEL A 787.91 DIARRHEA 09/28/2013 ANSHUL CARBAJAL APRN R 787.91 DIARRHEA 09/28/2013 YOVANI TOVAR, VONNIE A 787.91 DIARRHEA 09/28/2013 WHYTE DO, ADILIA K 787.91 DIARRHEA 09/28/2013 EMILY RIDDLE APRN 787.91 DIARRHEA 09/28/2013 HOLLY KEVIN, RONNIE E 787.91 DIARRHEA 09/28/2013 YOVANI TOVAR VONNIE A 787.91 DIARRHEA 09/28/2013 HOLLY KEVIN, RONNIE E 787.91 DIARRHEA 09/28/2013 ZULEIKA DPM, CHRISTOPHER 787.91 DIARRHEA 09/28/2013 YOVANI TOVAR, VONNIE A 787.91 DIARRHEA 09/28/2013 WHYTE DO, ADILIA K 787.91 DIARRHEA 09/28/2013 HOLLY RN, RONNIE E 787.91 DIARRHEA 09/28/2013 ZULEIKA DPM, CHRISTOPHER 787.91 DIARRHEA 09/28/2013 HOLLY KEVIN, RONNIE E 787.91 DIARRHEA 09/28/2013 WHYTE DO, ADILIA K 787.91 DIARRHEA 09/28/2013 ZULEIKA DPM, CHRISTOPHER 787.91 DIARRHEA 09/28/2013 ZULEIKA DPM, CHRISTOPHER 787.91 DIARRHEA 09/28/2013 WHYTE DO, ADILIA K 787.91 DIARRHEA 09/28/2013 MANJINDER MANUFACTURING INSPECTORPAIGERENAN R 787.91 DIARRHEA 10/11/2013 WHYTE DO, ADILIA K [...] UPTON LCPC B 780.52 INSOMNIA UNSPECIFIED 10/11/2013 MARIUSZ UPTON LCPC B 796.2 ELEVATED BLOOD PRESSURE READING WITHOUT DIAGNOSIS OF HYPERTENSION 10/11/2013 APOORVA RAMIREZ, DANIEL A 296.90 UNSPECIFIED EPISODIC MOOD DISORDER 10/11/2013 DANIEL GUERIN PHD 780.52 INSOMNIA UNSPECIFIED 10/11/2013 DANIEL GUERIN PHD 796.2 ELEVATED BLOOD PRESSURE READING WITHOUT DIAGNOSIS OF HYPERTENSION 10/11/2013 ANSHUL CARBAJAL APRN R 296.90 UNSPECIFIED EPISODIC MOOD DISORDER 10/11/2013 ANSHUL CARBAJAL APRN R 780.52 INSOMNIA UNSPECIFIED 10/11/2013 ANSHUL CARBAJAL APRN R 796.2 ELEVATED BLOOD PRESSURE READING WITHOUT DIAGNOSIS OF HYPERTENSION 10/11/2013 VONNIE PINA APRN A 296.90 UNSPECIFIED EPISODIC MOOD DISORDER 10/11/2013 VONNIE PINA APRN A 780.52 INSOMNIA UNSPECIFIED 10/11/2013 YOVANI MANUFACTURING INSPECTOR, VONNIE A 796.2 ELEVATED BLOOD PRESSURE READING WITHOUT DIAGNOSIS OF HYPERTENSION 10/11/2013 WHYTE DO, ADILIA K 296.90 UNSPECIFIED EPISODIC MOOD DISORDER 10/11/2013 WHYTE DO, ADILIA K 780.52 INSOMNIA UNSPECIFIED 10/11/2013 WHYTE DO, ADILIA K 796.2 ELEVATED BLOOD PRESSURE READING WITHOUT DIAGNOSIS OF HYPERTENSION 10/11/2013 MADL MANUFACTURING INSPECTOR, EMILY L 296.90 UNSPECIFIED EPISODIC MOOD DISORDER 10/11/2013 MADL MANUFACTURING INSPECTOR, EMILY L 780.52 INSOMNIA UNSPECIFIED 10/11/2013 MADL MANUFACTURING INSPECTOR, EMILY L 796.2 ELEVATED BLOOD PRESSURE READING WITHOUT DIAGNOSIS OF HYPERTENSION 10/11/2013 HOLLY KEVIN, RONNIE E 296.90 UNSPECIFIED EPISODIC MOOD DISORDER 10/11/2013 HOLLY KEVIN, RONNIE E 780.52 INSOMNIA UNSPECIFIED 10/11/2013 HOLLY KEVIN, RONNIE E 796.2 ELEVATED BLOOD PRESSURE READING WITHOUT DIAGNOSIS OF HYPERTENSION 10/11/2013 YOVANI MANUFACTURING INSPECTOR, VONNIE A 296.90 UNSPECIFIED EPISODIC MOOD DISORDER 10/11/2013 YOVANI MANUFACTURING INSPECTOR, VONNIE A 780.52 INSOMNIA UNSPECIFIED 10/11/2013 YOVANI MANUFACTURING INSPECTOR, VONNIE A 796.2 ELEVATED BLOOD PRESSURE READING WITHOUT DIAGNOSIS OF HYPERTENSION 10/11/2013 HOLLY EKVIN, RONNIE E 296.90 UNSPECIFIED EPISODIC MOOD DISORDER 10/11/2013 HOLLY KEVIN, RONNIE E 780.52 INSOMNIA UNSPECIFIED 10/11/2013 HOLLY KEVIN, RONNIE E 796.2 ELEVATED BLOOD PRESSURE READING WITHOUT DIAGNOSIS OF HYPERTENSION 10/11/2013 ZULEIKA DPM, CHRISTOPHER 296.90 UNSPECIFIED EPISODIC MOOD DISORDER 10/11/2013 ZULEIKA DPM, CHRISTOPHER 780.52 INSOMNIA UNSPECIFIED 10/11/2013 ZULEIKA DPM, CHRISTOPHER 796.2 ELEVATED BLOOD PRESSURE READING WITHOUT DIAGNOSIS OF HYPERTENSION 10/11/2013 YOVANI MANUFACTURING INSPECTOR, VONNIE A 296.90 UNSPECIFIED EPISODIC MOOD DISORDER 10/11/2013 YOVANI MANUFACTURING INSPECTOR, VONNIE A 780.52 INSOMNIA UNSPECIFIED 10/11/2013 YOVANI MANUFACTURING INSPECTOR, VONNIE A 796.2 ELEVATED BLOOD PRESSURE READING WITHOUT DIAGNOSIS OF HYPERTENSION 10/11/2013 WHYTE DO, ADILIA K 296.90 UNSPECIFIED EPISODIC MOOD DISORDER 10/11/2013 WHYTE DO, ADILIA K 780.52 INSOMNIA UNSPECIFIED 10/11/2013 WHYTE DO, ADILIA K 796.2 ELEVATED BLOOD PRESSURE READING WITHOUT DIAGNOSIS OF HYPERTENSION 10/11/2013 HOLLY KEVIN, RONNIE E 296.90 UNSPECIFIED EPISODIC MOOD DISORDER 10/11/2013 HOLLY RN, RONNIE E 780.52 INSOMNIA UNSPECIFIED 10/11/2013 HOLLY [...] READING WITHOUT DIAGNOSIS OF HYPERTENSION 10/11/2013 MANJINDER MANUFACTURING INSPECTOR, RENAN R 296.90 UNSPECIFIED EPISODIC MOOD DISORDER 10/11/2013 MANJINDER MANUFACTURING INSPECTORPAIGERENAN R 780.52 INSOMNIA UNSPECIFIED 10/11/2013 MANJINDER TOVARRENAN R 796.2 ELEVATED BLOOD PRESSURE READING WITHOUT DIAGNOSIS OF HYPERTENSION 11/08/2013 WHYTE DO, ADILIA K 704.00 ALOPECIA UNSPECIFIED 11/08/2013 MARIUSZ UPTON LCPC 704.00 ALOPECIA UNSPECIFIED 11/08/2013 APOORVA RAMIREZ, DANIEL [place] 704.00 ALOPECIA UNSPECIFIED 11/08/2013 ANSHUL CARBAJAL APRN R 704.00 ALOPECIA UNSPECIFIED 11/08/2013 YOVANI TOVAR, VONNIE A 704.00 ALOPECIA UNSPECIFIED 11/08/2013 WHYTE DO, ADILIA K 704.00 ALOPECIA UNSPECIFIED 11/08/2013 VENKATESH TOVAR, EMILY L 704.00 ALOPECIA UNSPECIFIED 11/08/2013 HOLLY KEVIN, RONNIE E 704.00 ALOPECIA UNSPECIFIED 11/08/2013 YOVANI TOVAR, VONNIE A 704.00 ALOPECIA UNSPECIFIED 11/08/2013 HOLLY KEVIN, RONNIE E 704.00 ALOPECIA UNSPECIFIED 11/08/2013 ZULEIKA DPM, CHRISTOPHER 704.00 ALOPECIA UNSPECIFIED 11/08/2013 YOVANI TOVAR, VONNIE [...] TOVAR, RENAN R 704.00 ALOPECIA UNSPECIFIED 12/13/2013 MARIUSZ UPTON LCPC 296.33 MO DEPRESSIVE RECURRENT SEVERE W/O PSYCHOTIC BEHAVIOR 12/13/2013 APOORVA PHD, DANIEL A 296.33 MO DEPRESSIVE RECURRENT SEVERE W/O PSYCHOTIC BEHAVIOR 12/13/2013 ANSHUL CARBAJAL APRN 296.33 MO DEPRESSIVE RECURRENT SEVERE W/O [...] DEPRESSIVE RECURRENT SEVERE W/O PSYCHOTIC BEHAVIOR 12/13/2013 VONNIE PINA APRN A 296.33 MO DEPRESSIVE RECURRENT SEVERE W/O PSYCHOTIC BEHAVIOR 12/13/2013 JOSUE WHYTE DOA K 296.33 MO DEPRESSIVE RECURRENT SEVERE W/O PSYCHOTIC BEHAVIOR 12/13/2013 HOLLY KEVIN, RONNIE E 296.33 MO DEPRESSIVE RECURRENT SEVERE W/O PSYCHOTIC BEHAVIOR 12/13/2013 ZULEIKA DPM, CHRISTOPHER 296.33 MO DEPRESSIVE RECURRENT SEVERE W/O PSYCHOTIC BEHAVIOR 12/13/2013 HOLLY KEVIN, RONNIE E 296.33 MO DEPRESSIVE RECURRENT SEVERE W/O PSYCHOTIC BEHAVIOR 12/13/2013 WHYTE JOSUE DUEÑASA K 296.33 MO DEPRESSIVE RECURRENT SEVERE W/O PSYCHOTIC BEHAVIOR 12/13/2013 ZULEIKA DPM, CHRISTOPHER 296.33 MO DEPRESSIVE RECURRENT SEVERE W/O PSYCHOTIC BEHAVIOR 12/13/2013 ZULEIKA DPM, CHRISTOPHER 296.33 MO DEPRESSIVE RECURRENT SEVERE W/O PSYCHOTIC BEHAVIOR 12/13/2013 JOSUE WHYTE DOA K 296.33 MO DEPRESSIVE RECURRENT SEVERE W/O PSYCHOTIC BEHAVIOR 12/13/2013 RENAN DUNBAR APRN R 296.33 MO DEPRESSIVE RECURRENT SEVERE W/O PSYCHOTIC BEHAVIOR 01/19/2014 ANSHUL CARBAJAL APRN R 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 01/19/2014 ANSHUL CARBAJAL APRN R 461.9 SINUSITIS ACUTE 01/19/2014 ANSHUL CARBAJAL APRN R 845.10 UNSPECIFIED SITE OF FOOT SPRAIN 01/19/2014 VONNIE PINA APRN A 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 01/19/2014 YOVANI MANUFACTURING INSPECTOR, VONNIE A 461.9 SINUSITIS ACUTE 01/19/2014 YOVANI MANUFACTURING INSPECTOR, VONNIE A 845.10 UNSPECIFIED SITE OF FOOT SPRAIN 01/19/2014 WHYTE DO, ADILIA K 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 01/19/2014 WHYTE DO, ADILIA K 461.9 SINUSITIS ACUTE 01/19/2014 WHYTE DO, ADILIA K 845.10 UNSPECIFIED SITE OF FOOT SPRAIN 01/19/2014 MADL MANUFACTURING INSPECTOR, EMILY L 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 01/19/2014 MADL MANUFACTURING INSPECTOR, EMILY L 461.9 SINUSITIS ACUTE 01/19/2014 MADL MANUFACTURING INSPECTOR, EMILY L 845.10 UNSPECIFIED SITE OF FOOT SPRAIN 01/19/2014 HOLLY KEVIN, RONNIE E 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 01/19/2014 HOLLY KEVIN, RONNIE E 461.9 SINUSITIS ACUTE 01/19/2014 HOLLY KEVIN, RONNIE E 845.10 UNSPECIFIED SITE OF FOOT SPRAIN 01/19/2014 YOVANI MANUFACTURING INSPECTOR, VONNIE A 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 01/19/2014 YOVANI MANUFACTURING INSPECTOR, VONNIE A 461.9 SINUSITIS ACUTE 01/19/2014 YOVANI MANUFACTURING INSPECTOR, VONNIE A 845.10 UNSPECIFIED SITE OF FOOT SPRAIN 01/19/2014 HOLLY KEVIN, RONNIE E 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 01/19/2014 HOLLY KEVIN, RONNIE E 461.9 SINUSITIS ACUTE 01/19/2014 HOLLY KEVIN, RONNIE E 845.10 UNSPECIFIED SITE OF FOOT SPRAIN 01/19/2014 ZULEIKA DPM, CHRISTOPHER 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 01/19/2014 ZULEIKA DPM, CHRISTOPHER 461.9 SINUSITIS ACUTE 01/19/2014 ZULEIKA DPM, CHRISTOPHER 845.10 UNSPECIFIED SITE OF FOOT SPRAIN 01/19/2014 YOVANI MANUFACTURING INSPECTOR, VONNIE A 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 01/19/2014 YOVANI MANUFACTURING INSPECTOR, VONNIE A 461.9 SINUSITIS ACUTE 01/19/2014 YOVANI MANUFACTURING INSPECTOR, VONNIE A 845.10 UNSPECIFIED SITE OF FOOT SPRAIN 01/19/2014 WHYTE DO, ADILIA K 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 01/19/2014 WHYTE DO, ADILIA K 461.9 SINUSITIS ACUTE 01/19/2014 WHYTE DO, ADILIA K 845.10 UNSPECIFIED SITE OF FOOT SPRAIN 01/19/2014 HOLLY KEVIN, RONNIE E 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 [...] SITE OF FOOT SPRAIN 01/19/2014 WHYTE DO, ADLIIA K 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 [...] 845.10 UNSPECIFIED SITE OF FOOT SPRAIN 01/19/2014 RENAN DUNBAR APRN R 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5 STD SCREEN 01/31/2014 ZULEIKA DPM, CHRISTOPHER V74.5 STD SCREEN 01/31/2014 HOLLY KEVIN, RONNIE E V74.5 STD SCREEN 01/31/2014 WHYTE DO, ADILIA K V74.5 STD SCREEN 01/31/2014 ZULEIKA DPM, CHRISTOPHER V74.5 STD SCREEN 01/31/2014 ZULEIKA DPM, CHRISTOPHER V74.5 STD SCREEN 01/31/2014 WHYTE DO, ADILIA K V74.5 STD SCREEN 01/31/2014 RENAN DUNBAR APRN R V74.5 STD SCREEN 02/07/2014 WHYTE DO, ADILIA K 112.1 CANDIDIASIS VAGINAL 02/07/2014 WHYTE DO, ADILIA K 729.5 PAIN IN LIMB 02/07/2014 WHYTE DO, ADILIA K V65.49 OTHER SPECIFIED COUNSELING 02/07/2014 MADL MANUFACTURING INSPECTOR, EMILY L 112.1 CANDIDIASIS VAGINAL 02/07/2014 MADL MANUFACTURING INSPECTOR, EMILY L 729.5 PAIN IN LIMB 02/07/2014 MADL MANUFACTURING INSPECTOR EMILY L V65.49 OTHER SPECIFIED COUNSELING 02/07/2014 RONNIE BARRERA RN 112.1 CANDIDIASIS VAGINAL 02/07/2014 RONNIE BARRERA RN 729.5 PAIN IN LIMB 02/07/2014 RONNIE BARRERA RN V65.49 OTHER SPECIFIED COUNSELING 02/07/2014 YOVANI MANUFACTURING INSPECTOR, VONNIE A 112.1 CANDIDIASIS VAGINAL 02/07/2014 YOVANI MANUFACTURING INSPECTOR, VONNIE A 729.5 PAIN IN LIMB 02/07/2014 YOVANI MANUFACTURING INSPECTOR, VONNIE A V65.49 OTHER SPECIFIED COUNSELING 02/07/2014 RONNIE BARRERA RN E 112.1 CANDIDIASIS VAGINAL 02/07/2014 RONNIE BARRERA RN 729.5 PAIN IN LIMB 02/07/2014 RONNIE BARRERA RN V65.49 OTHER SPECIFIED COUNSELING 02/07/2014 ZULEIKA DPM, CHRISTOPHER 112.1 CANDIDIASIS VAGINAL 02/07/2014 ZULEIKA DPM, CHRISTOPHER 729.5 PAIN IN LIMB 02/07/2014 ZULEIKA DPM, CHRISTOPHER V65.49 OTHER SPECIFIED COUNSELING 02/07/2014 YOVANI MANUFACTURING INSPECTOR, VONNIE A 112.1 CANDIDIASIS VAGINAL 02/07/2014 YOVANI MANUFACTURING INSPECTOR, VONNIE A 729.5 PAIN IN LIMB 02/07/2014 YOVANI MANUFACTURING INSPECTOR, VONNIE A V65.49 OTHER SPECIFIED COUNSELING 02/07/2014 WHYTE DO ADILIA K 112.1 CANDIDIASIS VAGINAL 02/07/2014 WHYTE DO ADILIA K 729.5 PAIN IN LIMB 02/07/2014 WHYTE DO ADILIA K V65.49 OTHER SPECIFIED COUNSELING 02/07/2014 RONNIE BARRERA RN 112.1 CANDIDIASIS VAGINAL 02/07/2014 RONNIE BARRERA RN 729.5 PAIN IN LIMB 02/07/2014 RONNIE BARRERA RN E V65.49 OTHER SPECIFIED COUNSELING 02/07/2014 ZULEIKA DPM, CHRISTOPHER 112.1 CANDIDIASIS VAGINAL 02/07/2014 ZULEIKA DPM, CHRISTOPHER 729.5 PAIN IN LIMB 02/07/2014 ZULEIKA DPM, CHRISTOPHER V65.49 OTHER SPECIFIED COUNSELING 02/07/2014 RONNIE BARRERA RN E 112.1 CANDIDIASIS VAGINAL 02/07/2014 RONNIE BARRERA RN 729.5 PAIN IN LIMB 02/07/2014 RONNIE BARRERA RN V65.49 OTHER SPECIFIED COUNSELING 02/07/2014 WHYTE DO, [...] ADILIA K V65.49 OTHER SPECIFIED COUNSELING 02/07/2014 MANJINDER TOVRA RENAN R 112.1 CANDIDIASIS VAGINAL 02/07/2014 MANJINDER TOVAR RENAN R 729.5 PAIN IN LIMB 02/07/2014 MANJINDER TOVAR RENAN R V65.49 OTHER SPECIFIED COUNSELING 04/13/2014 EMILY RIDDLE APRN L 462 ACUTE PHARYNGITIS 04/13/2014 EMILY RIDDLE APRN L 465.9 UPPER RESPIRATORY INFECTION 04/13/2014 HOLLY KEVIN, RONNIE E 462 ACUTE PHARYNGITIS 04/13/2014 HOLLY KEVIN, RONNIE E 465.9 UPPER RESPIRATORY INFECTION 04/13/2014 YOVANI PEREZN, VONNIE A 462 ACUTE PHARYNGITIS 04/13/2014 YOVANI TOVAR, VONNIE A 465.9 UPPER RESPIRATORY INFECTION 04/13/2014 HOLLY KEVIN, RONNIE E 462 ACUTE PHARYNGITIS 04/13/2014 HOLLY KEVIN, RONNIE E 465.9 UPPER RESPIRATORY INFECTION 04/13/2014 ZULEIKA DPM, CHRISTOPHER 462 ACUTE PHARYNGITIS 04/13/2014 ZULEIKA DPM, CHRISTOPHER 465.9 UPPER RESPIRATORY INFECTION 04/13/2014 YOVANI PEREZN, VONNIE A 462 ACUTE PHARYNGITIS 04/13/2014 YOVANI TOVAR, VONNIE A 465.9 UPPER RESPIRATORY INFECTION 04/13/2014 WHYTE DO, ADILIA K 462 ACUTE PHARYNGITIS 04/13/2014 WHYTE DO, ADILIA K 465.9 UPPER RESPIRATORY INFECTION 04/13/2014 RONNIE BARRERA RN E 462 ACUTE PHARYNGITIS 04/13/2014 RONNIE BARRERA RN 465.9 UPPER RESPIRATORY INFECTION 04/13/2014 ZULEIKA DPM, CHRISTOPHER 462 ACUTE PHARYNGITIS 04/13/2014 ZULEIKA DPM, CHRISTOPHER 465.9 UPPER RESPIRATORY INFECTION 04/13/2014 RONNIE BARRERA RN 462 ACUTE PHARYNGITIS 04/13/2014 RONNIE BARRERA RN 465.9 UPPER RESPIRATORY INFECTION 04/13/2014 WHYTE DO, [...] K 465.9 UPPER RESPIRATORY INFECTION 04/13/2014 MANJINDER MANUFACTURING INSPECTOR, RENAN R 462 ACUTE PHARYNGITIS 04/13/2014 MANJINDER MANUFACTURING INSPECTOR, RENAN R 465.9 UPPER RESPIRATORY INFECTION 05/05/2014 VONNIE [...] CHRISTOPHER V25.09 CONTRACEPTIVE COUNSELING - GENERAL 05/05/2014 RONNIE BARRERA RN V25.09 CONTRACEPTIVE COUNSELING - GENERAL 05/05/2014 ADILIA WHYTE DO V25.09 CONTRACEPTIVE COUNSELING - GENERAL 05/05/2014 ZULEIKA DPM, CHRISTOPHER V25.09 CONTRACEPTIVE COUNSELING - GENERAL 05/05/2014 ZULEIKA DPM, CHRISTOPHER V25.09 CONTRACEPTIVE COUNSELING - GENERAL 05/05/2014 WHYTE DO, ADILIA K V25.09 CONTRACEPTIVE COUNSELING - GENERAL 05/05/2014 MANJINDER PEREZN, RENAN R V25.09 CONTRACEPTIVE COUNSELING - GENERAL 05/27/2014 ZULEIKA DPM, CHRISTOPHER 726.79 BURSITIS FOOT 05/27/2014 ZULEIKA DPM, CHRISTOPHER 729.2 NEURITIS 05/27/2014 YOVANI MANUFACTURING INSPECTOR, VONNIE A 726.79 BURSITIS FOOT 05/27/2014 YOVANI MANUFACTURING INSPECTOR, VONNIE A 729.2 NEURITIS 05/27/2014 WHYTE DO, ADILIA K 726.79 BURSITIS FOOT 05/27/2014 WHYTE DO, ADILIA K 729.2 NEURITIS 05/27/2014 HOLLY KEVIN, RONNIE E 726.79 BURSITIS FOOT 05/27/2014 HOLLY KEVIN, RONNIE E 729.2 NEURITIS 05/27/2014 ZULEIKA DPM, CHRISTOPHER 726.79 BURSITIS FOOT 05/27/2014 ZULEIKA DPM, CHRISTOPHER 729.2 NEURITIS 05/27/2014 HOLLY KEVIN, RONNIE E 726.79 BURSITIS FOOT 05/27/2014 HOLLY KEVIN, RONNIE E 729.2 NEURITIS 05/27/2014 WHYTE DO, ADILIA K 726.79 BURSITIS FOOT 05/27/2014 WHYTE DO, ADILIA K 729.2 NEURITIS 05/27/2014 ZULEIKA DPM, CHRISTOPHER 726.79 BURSITIS FOOT 05/27/2014 ZULEIKA DPM, CHRISTOPHER 729.2 NEURITIS 05/27/2014 ZULEIKA DPM, CHRISTOPHER 726.79 BURSITIS FOOT 05/27/2014 ZULEIKA DPM, CHRISTOPHER 729.2 NEURITIS 05/27/2014 WHYTE DO, ADILIA K 726.79 BURSITIS FOOT 05/27/2014 WHYTE DO, ADILIA K 729.2 NEURITIS 05/27/2014 MANJINDER PEREZN, RENAN R 726.79 BURSITIS FOOT 05/27/2014 MANJINDER PEREZN, RENAN R 729.2 NEURITIS 06/03/2014 YOVANI TOVAR, VONNIE A 296.30 MAJOR DEPRESSIVE AFFECTIVE DISORDER RECURRENT EPISODE UNSPECIFIED DEGREE 06/03/2014 WHYTE DO, ADILIA K 296.30 MAJOR DEPRESSIVE AFFECTIVE DISORDER RECURRENT EPISODE UNSPECIFIED DEGREE 06/03/2014 HOLLY KEVIN, RONNIE Shanks 296.30 MAJOR DEPRESSIVE AFFECTIVE DISORDER RECURRENT EPISODE UNSPECIFIED DEGREE 06/03/2014 ZULEIKA DPM, CHRISTOPHER 296.30 MAJOR DEPRESSIVE AFFECTIVE DISORDER RECURRENT EPISODE UNSPECIFIED DEGREE 06/03/2014 HOLLY KEVIN, RONNIE Shanks 296.30 MAJOR DEPRESSIVE AFFECTIVE DISORDER RECURRENT EPISODE UNSPECIFIED DEGREE 06/03/2014 WHYTE DO, ADILAI K 296.30 MAJOR DEPRESSIVE AFFECTIVE DISORDER RECURRENT EPISODE UNSPECIFIED DEGREE 06/03/2014 ZULEIKA DPM, CHRISTOPHER 296.30 MAJOR DEPRESSIVE AFFECTIVE DISORDER RECURRENT EPISODE UNSPECIFIED DEGREE 06/03/2014 ZULEIKA DPM, CHRISTOPHER 296.30 MAJOR DEPRESSIVE AFFECTIVE DISORDER RECURRENT EPISODE UNSPECIFIED DEGREE 06/03/2014 WHYTE DO, ADILIA K 296.30 MAJOR DEPRESSIVE AFFECTIVE DISORDER RECURRENT EPISODE UNSPECIFIED DEGREE 06/03/2014 MANJINDER PEREZN RENAN R 296.30 MAJOR DEPRESSIVE AFFECTIVE DISORDER RECURRENT EPISODE UNSPECIFIED DEGREE 06/07/2014 VONNIE PINA APRN A V25.5 IMPLANON INSERTION 06/07/2014 WHYTE DO, ADILIA K V25.5 IMPLANON INSERTION 06/07/2014 HOLLY KEVIN, RONNIE Shanks V25.5 IMPLANON INSERTION 06/07/2014 ZULEIKA DPM, CHRISTOPHER V25.5 IMPLANON INSERTION 06/07/2014 HOLLY KEVIN, RONNIE E V25.5 IMPLANON INSERTION 06/07/2014 WHYTE DO, ADILIA K V25.5 IMPLANON INSERTION 06/07/2014 ZULEIKA DPM, CHRISTOPHER V25.5 IMPLANON INSERTION 06/07/2014 ZULEIKA DPM, CHRISTOPHER V25.5 IMPLANON INSERTION 06/07/2014 WHYTE DO, ADILIA K V25.5 IMPLANON INSERTION 06/07/2014 MANJINDER MANUFACTURING INSPECTOR, RENAN R V25.5 IMPLANON INSERTION 06/21/2014 WHYTE DO, ADILIA K 782.1 RASH 06/21/2014 WHYTE DO, ADIILA K V58.69 HIGH RISK MEDICATION 06/21/2014 RONNIE BARRERA RN 782.1 RASH 06/21/2014 RONNIE BARRERA RN V58.69 HIGH RISK MEDICATION 06/21/2014 ZULEIKA DPM, [...] ADILIA K V58.69 HIGH RISK MEDICATION 06/21/2014 MANJINDER MANUFACTURING INSPECTOR, RENAN R 782.1 RASH 06/21/2014 MANJINDER PEREZN RENAN R V58.69 HIGH RISK MEDICATION 08/01/2014 [...] V15.88 PERSONAL HISTORY OF FALL 08/01/2014 MANJINDER MANUFACTURING INSPECTOR, RENAN R 782.0 DISTURBANCE OF SKIN SENSATION 08/01/2014 MANJINDER MANUFACTURING INSPECTOR, RENAN R V15.88 PERSONAL HISTORY OF FALL 08/25/2014 WHYTE DO, ADILIA K 356.8 OTHER SPECIFIED IDIOPATHIC PERIPHERAL NEUROPATHY 08/25/2014 ZULEIKA DPM, CHRISTOPHER 356.8 OTHER SPECIFIED IDIOPATHIC PERIPHERAL NEUROPATHY 08/25/2014 ZULEIKA DPM, CHRISTOPHER 356.8 OTHER SPECIFIED IDIOPATHIC PERIPHERAL NEUROPATHY 08/25/2014 WHYTE DO, ADILIA K 356.8 OTHER SPECIFIED IDIOPATHIC PERIPHERAL NEUROPATHY 08/25/2014 RENAN DUNBAR APRN R 356.8 OTHER SPECIFIED IDIOPATHIC PERIPHERAL NEUROPATHY 08/26/2014 ZULEIKA DPM, CHRISTOPHER 729.4 PLANTAR FASCIITIS 08/26/2014 ZULEIKA DPM, CHRISTOPHER 735.0 HALLUX VALGUS (ACQUIRED) 08/26/2014 ZULEIKA DPM, CHRISTOPHER 729.4 PLANTAR FASCIITIS 08/26/2014 ZULEIKA DPM, CHRISTOPHER 735.0 HALLUX VALGUS (ACQUIRED) 08/26/2014 WHYTE DO, ADILIA K 729.4 PLANTAR FASCIITIS 08/26/2014 WHYTE DO, ADILIA K 735.0 HALLUX VALGUS (ACQUIRED) 08/26/2014 RENAN DUNBAR APRN R 729.4 PLANTAR FASCIITIS 08/26/2014 RENAN DUNBAR APRN 735.0 HALLUX VALGUS (ACQUIRED) Procedures Code Description [place] [address] TSH 09/30/2008 41204 ROUTINE VENIPUNCTURE 07/31/2012 55241 CMP 07/31/2012 2182005 GFR CALC (RESULT ONLY) 07/31/2012 58053 T4 FREE 08/01/2012 57286 T3 TOTAL 08/01/2012 51251 TSH 08/01/2012 GABBI BENÍTEZ 08/01/2012 89041 THERAPUTIC INJ SQ/IM 08/20/2012 15011 THERAPUTIC INJ SQ/IM 08/20/2012 J1055 DEPO-PROVERA INJ 150 MG 08/20/2012 J1055 DEPO-PROVERA INJ 150 MG 08/20/2012 83127 URINE TEST (IN-HOUSE) 08/20/2012 89924 URINE TEST (IN-HOUSE) 08/20/2012 20398 ROUTINE VENIPUNCTURE 09/03/2012 70071 TSH 09/04/2012 OtolarSarah Mancuso 09/11/2012 31505 ROUTINE VENIPUNCTURE 11/02/2012 29598 CMP 11/02/2012 5654627 GFR CALC (RESULT ONLY) 11/02/2012 18857 TSH 11/02/2012 04147 UA W/ CULTURE IF INDICATED 11/11/2012 11100 ROUTINE VENIPUNCTURE 11/20/2012 00879 CBC 11/20/2012 99889 ESR/SED RATE 11/20/2012 20001 CMP 11/20/2012 0977315 GFR CALC (RESULT ONLY) 11/20/2012 64505 CRP 11/20/2012 08535 FERRITIN 11/20/2012 69417 CPK 11/20/2012 78185 IRON SERUM 11/20/2012 97993 IRON BNDNG CAP 11/20/2012 IRGROUP IRON GROUP (Iron,TIBC, Ferritin) 11/26/2012 83289 ROUTINE VENIPUNCTURE 12/08/2012 74348 URINE TEST (IN-HOUSE) 12/08/2012 54111 THERAPUTIC INJ SQ/IM 12/08/2012 J1050 DEPO PROVERA 12/08/2012 86059 CPK 12/08/2012 19580 LDH 12/08/2012 ANAANA KRYSTYNA ANALYZER (SCREEN) 12/09/2012 52425 CATA MT SPOT FEVER 12/09/2012 50720 LYME EIA W/WEST BLOT 12/11/2012 GENERAL Fran Jacobo 12/15/2012 40518 ROUTINE VENIPUNCTURE 04/28/2013 NEUROLOGY LOBO CARLTON 04/28/2013 04326 CMP 04/29/2013 2294825 GFR CALC (RESULT ONLY) 04/29/2013 18937 TSH 04/29/2013 ORTHOPEDI GABBI CORRALES 05/03/2013 34617 ROUTINE VENIPUNCTURE 08/06/2013 30953 CMP 08/06/2013 56865 TSH 08/06/2013 92406 HIDA SCAN 08/19/2013 38327 INFLUENZA A & B (IN-HOUSE) 08/19/2013 27947 US GALLBLADDER ULTRASOUND 08/30/2013 47949 ROUTINE VENIPUNCTURE 11/05/2013 40758 CMP 11/05/2013 19093 IGF-1 11/05/2013 65743 TSH 11/05/2013 ORTHOPEDI SARAH WATTS 11/08/2013 03838 PSYCH DIAGNOSTIC EVALUATION 12/13/2013 82268 PSYTX PT&/FAMILY 45 MINUTES 12/14/2013 79118 XRAY FOOT RIGHT COMP MIN 3 VIEWS 01/19/2014 36687 GC/CHLAM PROBE (STATE) 01/31/2014 41221 UA LONG DIP 01/31/2014 57302 TEST, URINE (IN-HOUSE) 01/31/2014 18734 TRICHOMONAS (IN-HOUSE) 01/31/2014 08129 CULTURE UROGENITAL 02/02/2014 PODIATRY CHRISTOPHER TO 02/07/2014 S0280 HEALTH PROMOTION 04/28/2014 S0280 HEALTH PROMOTION 04/28/2014 S0280 HEALTH PROMOTION 05/17/2014 S0281 CARE COORDINATION 05/17/2014 20602 INJ TENDON SHEATH/LIGAMENT 05/27/2014 39680 IMPLANON INSERTION 06/07/2014 J7307 ETONOGESTREL IMPLANT SYSTEM 06/07/2014 S0280 COMPREHENSIVE CARE MANAGEMENT 06/07/2014 S0281 CARE COORDINATION 06/07/2014 42783 TEST, URINE (IN-HOUSE) 06/07/2014 S0281 CARE COORDINATION 06/10/2014 85099 ROUTINE VENIPUNCTURE 06/21/2014 2986994 GFR CALC (RESULT ONLY) 06/21/2014 19740 CMP 06/21/2014 21586 TSH 06/21/2014 99496 MRI SPINE (LUMBAR) W/O CONTRAST 08/01/2014 S0281 CARE COORDINATION 08/03/2014 L3040 FT ARCH SUPRT PREMOLD LONGIT 08/26/2014 S0280 HEALTH PROMOTION 09/01/2014 S0281 CARE COORDINATION 09/01/2014 S0280 COMPREHENSIVE CARE MANAGEMENT 09/01/2014 S0281 CARE COORDINATION 09/01/2014 S0280 HEALTH PROMOTION 09/26/2014 S0280 HEALTH PROMOTION 09/26/2014 02132 US THYROID ULTRASOUND 11/24/2014 65240 ROUTINE VENIPUNCTURE 12/09/2014 8465705 GFR CALC (RESULT ONLY) 12/09/2014 92384 CMP 12/09/2014 29304 TSH 12/09/2014 Results Test Result Range Thyroid Stimulating Hormone - 01/10/17 09:10 TSH 19.31 mIU/mL 0.32-5.00 Urinalysis - 06/02/17 10:06 Icotest N/A Negative Urine Volume Urine Volume Sufficient (10mL) Urine-Appearance Clear Clear Urine-Bacteria 2+ Urine-Bilirubin Negative Negative Urine-Blood Negative Negative Urine-Color Yellow Colorless-Lt. Yellow Urine-Epithelial Cells 10-20/HPF Urine-Glucose Negative Negative Urine-Ketones Negative Negative Urine-Leukocytes Trace Negative Urine-Nitrite Negative Negative Urine-Other Urine Saved if Culture Needed (48hrs from time of collection) Urine-pH 6.5 5-8.5 Urine-Protein Negative Negative Urine-Specific [place] 1.015 1.000-1.030 Urine-WBC 0-2/HPF Urobilinogen 0.2 E.U./dL 0.2-1.0 FSH and LH - 11/18/17 08:30 LH 8.7 mIU/mL FSH 4.9 mIU/mL Cortisol - 02/13/18 15:00 Cortisol 11.3 ug/dL Thyroid Stimulating Hormone - 02/13/18 15:00 TSH [...] Media Position A11 CULTURE SOURCE Left AC Panel [id number] - 07/14/18 10:30 HIV Screen 4th Generation wRfx Non Reactive Non Reactive Thyroid Stimulating Hormone - 10/01/18 17:28 TSH 2.61 mIU/mL 0.32-5.00 Encounters ACCT No. Visit Date/Time Discharge Status Pt. Type Provider Facility Loc./Unit Complaint [id number] 12/09/2014 10:03:00 12/09/2014 23:59:59 CLS Outpatient RENAN DUNBAR APRN [id number] 11/24/2014 14:47:00 11/24/2014 23:59:59 CLS Outpatient ADILIA WHYTE DO [id number] 09/23/2014 10:45:00 09/23/2014 23:59:59 CLS Outpatient CHRISTOPHER TO DPM [id number] 08/26/2014 09:00:00 08/26/2014 23:59:59 CLS Outpatient CHRISTOPHER TO DPM [id number] 08/01/2014 16:18:00 08/01/2014 23:59:59 CLS Outpatient ADILIA WHYTE DO [id number] 07/28/2014 09:15:00 07/28/2014 23:59:59 CLS Outpatient RONNIE BARRERA RN [id number] 06/23/2014 11:15:00 06/23/2014 23:59:59 CLS Outpatient RONNIE BARRERA RN [id number] 06/21/2014 09:37:00 06/21/2014 23:59:59 CLS Outpatient ADILIA WHYTE DO [id number] 06/07/2014 13:59:00 06/07/2014 23:59:59 CLS Outpatient VONNIE PINA APRN Celio [id number] 05/27/2014 08:08:00 05/27/2014 23:59:59 CLS Outpatient ZULEIKA DPM, CHRISTOPHER [id number] 05/27/2014 08:08:00 05/27/2014 23:59:59 CLS Outpatient ZULEIKA DPM, CRHISTOPHER [id number] 05/17/2014 08:00:00 05/17/2014 23:59:59 CLS Outpatient RONNIE BARRERA RN [id number] 05/05/2014 15:46:00 05/05/2014 23:59:59 CLS Outpatient YOVANI TOVAR VONNIE [place]ens [id number] 04/25/2014 08:45:00 04/25/2014 23:59:59 CLS Outpatient RONNIE BARRERA RN [id number] 04/13/2014 10:17:00 04/13/2014 23:59:59 CLS Outpatient EMILY RIDDLE APRN Jose [id number] 02/07/2014 10:13:00 02/07/2014 23:59:59 CLS Outpatient ADILIA WHYTE DO [id number] 01/31/2014 09:45:00 01/31/2014 23:59:59 CLS Outpatient YOVANI TOVAR VONNIE [place] [id number] 01/19/2014 12:52:00 01/19/2014 23:59:59 CLS Outpatient RAVEN TOVAR ANSHUL Ortega [id number] 12/14/2013 09:56:00 12/14/2013 23:59:59 CLS Outpatient DANIEL GUERIN PHD [id number] 12/13/2013 08:52:00 12/13/2013 23:59:59 CLS Outpatient MARIUSZ UPTON LCPC [id number] 11/08/2013 11:01:00 11/08/2013 23:59:59 CLS Outpatient ADILIA WHYTE DO [id number] 11/05/2013 12:49:00 11/05/2013 23:59:59 CLS Outpatient ADILIA WHYTE DO [id number] 10/19/2013 13:58:00 10/19/2013 23:59:59 CLS Outpatient WHITE DDSWARREN Shiela [id number] 10/11/2013 10:00:00 10/11/2013 23:59:59 CLS Outpatient WHYTE ADILIA DUEÑAS [id number] 09/28/2013 17:53:00 09/28/2013 23:59:59 CLS Outpatient MANJINDER LA RENAN Ortega [id number] 08/30/2013 12:36:00 08/30/2013 23:59:59 CLS Outpatient ADILIA WHYTE DO [id number] 08/19/2013 10:02:00 08/19/2013 23:59:59 CLS Outpatient DAMIEN KIM APRN N [id number] 08/19/2013 10:02:00 08/19/2013 23:59:59 CLS Outpatient DAMIEN KIM APRN Pop [id number] 08/06/2013 10:02:00 08/06/2013 23:59:59 CLS Outpatient WHYTE ADILIA DUEÑAS [id number] 06/25/2013 11:47:00 06/25/2013 23:59:59 CLS Outpatient WHITE DDS MAX Fraga [id number] 05/03/2013 14:39:00 05/03/2013 23:59:59 CLS Outpatient LENKA DDS GORDON Qiu [id number] 11/20/2012 14:35:00 11/20/2012 23:59:59 CLS Outpatient WHYTE DOADILIA [id number] 11/11/2012 13:04:00 11/11/2012 23:59:59 CLS Outpatient RAVEN MANUFACTURING INSPECTORANSHUL Lord [id number] 11/02/2012 11:31:00 11/02/2012 23:59:59 CLS Outpatient TIEN KIMBLE PA-C [id number] 10/26/2012 14:24:00 10/26/2012 23:59:59 CLS Outpatient [id number] 10/21/2012 12:23:00 10/21/2012 23:59:59 CLS Outpatient [id number] 09/10/2012 09:06:00 09/10/2012 23:59:59 CLS Outpatient ADILIA WHYTE DO [id number] 09/03/2012 12:21:00 09/03/2012 23:59:59 CLS Outpatient ADILIA WHYTE DO [id number] 08/20/2012 09:50:00 08/20/2012 23:59:59 CLS Outpatient [id number] 08/06/2012 13:48:00 08/06/2012 23:59:59 CLS Outpatient [id number] 07/31/2012 11:25:00 07/31/2012 23:59:59 CLS Outpatient ADILIA WHYTE DO [id number] 04/28/2013 15:46:00 Document Registration [id number] 03/23/2013 18:13:00 Document Registration [id number] 02/16/2013 09:07:00 Document Registration [id number] 02/08/2013 15:20:00 Document Registration [id number] 01/19/2013 10:38:00 Document Registration [id number] 01/18/2013 13:22:00 Document Registration [id number] 01/04/2013 15:51:00 Document Registration [id number] 12/15/2012 09:54:00 Document Registration [id number] 12/08/2012 10:40:00 Document Registration [id number] 02/16/2018 09:09:00 Document Registration [id number] 10/01/2018 17:27:00 Document Registration [id number] 02/13/2018 14:33:00 Document Registration [id number] 11/19/2017 08:40:00 Document Registration [id number] 06/02/2017 09:58:00 Document Registration [id number] 01/10/2017 09:10:00 Document Registration [id number] 05/30/2015 08:37:48 ACT Document Registration [id number] 07/16/2018 11:20:00 Document Registration
[2019-03-23] MEDS: LACTATED RINGERS 1,000 ML IV PRN ×2 (07:33→09:45)
[2019-03-23] MEDS ORDERED: PROPOFOL INJECTION 0 ML IV ONE (07:48)
[2019-03-23] MEDS ORDERED: MIDAZOLAM 2 MG/2 ML (VERSED) VIAL ONE (07:51)
[2019-03-23] MEDS ORDERED: LIDOCAINE PF 2% 5 ML (XYLOCAINE) VIAL ONE ×2 (07:52→09:35)
[2019-03-23] MEDS ORDERED: fentaNYL INJECTION 100 MCG/2 ML AMP ONE (07:52)
[2019-03-23] MEDS ORDERED: BUP/EPI 0.5% 1:200,000 (MARCAINE) 10ML VIAL IJ ONE (08:21)
[2019-03-23] MEDS ORDERED: ESTROGENS CONJ. CREAM 30 GM (PREMARIN) TUBE ONE (08:21)
--- NOTE | 2019-03-23 09:05 | Progress Note-Pre Operative ---
Pre-Operative Progress Note H&P Reviewed The H&P was reviewed, patient examined and no changes noted. Date Seen by Provider: Mar 23, 2019 Time Seen by Provider: 09:00 Date H&P Reviewed: Mar 23, 2019 Time H&P Reviewed: 08:30 Pre-Operative Diagnosis: vulvar lesions, BRADLEY MICHAEL CORRALES DO Mar 23, 2019 09:05
--- NOTE | 2019-03-23 09:21 | Discharge Inst-Women's Service ---
Discharge Inst-Women's Serv Depart Medication/Instructions New, Converted or Re-Newed RX: RX on Chart Instructions Discharge advice following Wide Local Excision (WLE) of Vulva This advice is intended as a general guide, as everyone is different. You will be given the opportunity to ask your nurse any questions before leaving. You may also receive additional information which is relevant to you and which will help your recovery. If you feel there is any information that you would like that you havent been given, please just ask. How long will it take to recover from my operation? Following surgery for vulvar lesions, the rate of recovery depends on each individual, the depth and size of the wound and on your general state of health before the operation. It is important to resume your normal activities gradually and limit what you do by how tired or uncomfortable you feel. Gradually start to do more each day and by six weeks most patients are back to their normal levels of activity. Listen to your own body and use your common sense but do not push yourself too hard. Rest and exercise Gradually increase your activity each day and continue with the advised exercises. Some exercise is important because sitting for long periods can cause ankle and foot swelling and can increase your risk of deep vein thrombosis. You will continue to feel tired so continue to rest when you can and gradually increase the amount of exercise you do. Accept help from others when it is offered. Walking is an excellent way to exercise. Gradually increase the length of your walks but only walk a distance you are comfortable with. You may only swim once your vaginal bleeding has stopped and your wound has healed completely. Wound Care/Hygiene Once at home is important to continue to shower at least once daily to keep your wound clean and rinse after toileting. If you have a hand held shower head use it on a cool and low setting and let the water run over the vulval area. Some women find it easier using a Sitz bath (a type of straight knife machine cutter that fits over the toilet and allows you to soak just your buttocks and genital area) to help clean your vulva wound after voiding or defecation. If you cant buy one locally these can be purchased on-line. A spray bottle would be helpful as well. After washing, gently pat dry your wound with a clean soft cloth. It is normal to feel tingling and pulling around the area of surgery as your wound goes through stages of healing. It may take some time for the wound to heal completely. Although vulvar stitches are dissolvable they can become tight and can be removed by the district nurse after seven days depending on how well the wound has healed. If you are experiencing discomfort and stinging when urinating due to the acidity of urine coming into contact with the wound, pouring a warm jug of water over the wound while sitting on the toilet might ease your discomfort. Or use a spray bottle. Due to the location of the wound it is relatively common that the wound may show signs of infection despite frequent washing and your best efforts to keep it clean. If you experience any redness, heat or foul discharge from your wound when you are at home please call the office. Diet Try to eat a healthy balanced variety of foods with plenty of fresh fruit and vegetables. Introducing high fibre food including wholegrain bread, bran flakes, beans along with plenty of fluids will help prevent constipation. You should drink at least eight glasses of water (or non-sugary drinks) every day. Protein rich foods including fish, eggs, meat, hearty green vegetables and beans and pulses will help with the healing process. Avoiding fatty foods, excessive alcohol, cakes and sweets will help you to avoid putting on weight while you are less active. Your operation wont make you put on weight but it is advisable to control your calorie intake. Some women have a poor appetite following surgery which can be for many reasons. If this applies to you please consult your GP who can refer you to a improvement specialist or prescribe supplements. Constipation Pain relief medication, reduced activity, having an operation and changes in your appetite can all affect your bowel function. If you are constipated following your discharge from hospital it is important that you try to address it as soon as possible. Try to increase your fluid intake and eat a well-balanced diet with foods rich in fibre e.g. wholemeal bread, bran flakes, beans and pulses. If you have not moved your bowels for three days, please contact the office. A stool softener is helpful. Medication You will take home the medicines you brought in with you. We will provide any extra medicines that you may need, such as pain relief, laxatives, anti-nausea medication or antibiotics. Use the medication as directed. If you are taking a narcotic, do not drink any alcohol and do not drive. Fatigue It is common to feel tired and sometimes irritable and frustrated after surgery. Even simple everyday tasks, such as having a shower, might make you feel exhausted. This is very common and usually temporary; it should improve with your recovery. In the meantime a good diet, exercises, relaxation and help from your family and friends can all ease the fatigue and its impact on your everyday life. Your sleeping patterns may change due to a change in routine, however it should return to normal along with your strength and stamina. Sex and intimacy Following vulvar surgery, some patients worry about sexual intercourse being painful and are concerned about resuming sexual relationships. We would usually recommend that you dont have sex for at least the first tow to four weeks after surgery to allow healing. However it can take several months for the vulvar area to heal completely. It can also take time for energy levels and sexual desire to improve. During this time it may feel important for you and your partner to maintain intimacy, despite refraining from sexual intercourse. Once you feel ready gentle penetration is advised, sometimes lubrication jelly can be used. You may also find that you feel a little numb during penetration however this should improve with time. It can still be possible to have an orgasm, although this is less likely if the clitoris is removed. After some surgery intercourse can become difficult due to tightness and scarring. Having vulva surgery can have an impact not only on your physical relationship with your partner but can also affect you both emotionally. If you feel that you or your partner are struggling or have any questions related to your surgery, please contact your whiskey filterer. Work You may have symptoms such as tiredness or pain which may affect your ability to work as a result of your operation. It is not unusual to take time off work to adjust to your diagnosis as the emotions may make it difficult to concentrate at work effectively. Remember that you have had an operation and time is needed to allow the healing of your wound. When you return to work will also depend on the type of job you do. 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 Driving It is ok to go anywhere as a passenger in a car, but if you are travelling long distances, please ensure you stretch your legs regularly. You may drive as soon as you are not requiring narcotics for pain, or in 24 h ours. Follow up You will usually be given a follow up appointment before you are discharged. If the histology (tissue) results from your surgery are not available before you are discharged home you will be given the results when you return to clinic. You will be advised if any further treatment is necessary. When to call a doctor Seek medical attention for any of the following: - Severe pain not controlled by pain relief medication - Fever, shaking, chills or other signs of a fever - Signs of wound infection such as increased redness, swelling, tenderness, warmth or drainage from the wound - foul smelling discharge - Excess bleeding - Persistent vomiting with the inability to tolerate food and fluids - Constipation for more than three days - Severe pain in either calf or leg, or sudden onset shortness of breath or chest pain - Problems urinating and/or other urinary problems What symptoms should I look out for? If you have any of the following symptoms, please contact the office - Persistent itching and/or soreness of the vulva skin -A new change in color of the vulva skin - A noticeable lump or swelling on the vulva Final Diagnosis vulvar intraepithelial lesion x 3 (BRADLEY( Problems Reviewed?: Yes Consults/Follow Up Additional Follow Up: Yes (1 week for incision check and suture removal) Activity Activity: Activity as Tolerated Driving Instructions: No Driving for 24 Hours NO SMOKING: NO SMOKING Nothing Inside Vagina: No Douching, No [place], No Tampons Diet Discharge Diet: No Restrictions Symptoms to Report to DrPhilip: Swelling Increased, Bleeding Excessive, Pain Increased, Constipation(Persistant), Fever Over 101 Degrees F, Vaginal Bleeding Increase, Cramps in Feet or Legs, Vaginal Discharge Foul For Any Problems or Questions: Contact Your Physician Skin/Wound Care Infection Signs and Symptoms: Increased Redness, Foul Odor of Wound, Increased Drainage, Skin Itchy or Has a Rash, Increased Swelling, Temperature Above 101 F Operative Area Clean and Dry: Keep Incision Clean/Dry Stitches/[place]/Dermabond: Care of Stitches MICHAEL CORRALES DO Mar 23, 2019 09:20
[2019-03-23] MEDS ORDERED: SEVOFLURANE (ULTANE) 15 ML INHAL SOLN ONE ×4 (09:35→09:59)
[2019-03-23] MEDS ORDERED: proPOfol 200 MG/20 ML (DIPRIVAN) VIAL IV ONE (09:35)
[2019-03-23] MEDS ORDERED: ONDANSETRON 4 MG/2 ML (SDV) Z0FRAN ONE (09:35)
[2019-03-23] MEDS ORDERED: DEXAMETHASONE 10 MG/ML (DECADRON) 1 ML VIAL ONE (09:35)
--- NOTE | 2019-03-23 10:12 | Operative Report ---
Operative Report Date of Procedure/Surgery Mar 23, 2019 Surgeon (s) MICHAEL CORRALES DO Railway Switchman (s): NA Post-Operative Diagnosis same Procedure Performed wide local excision x 3 of vulva/partial vulvectomy Description of Procedure Anesthesia Type: General Estimated blood loss (mL): minimal Specimen(s) collected/removed vulvar biopsy x 3 Description of the Procedure right periclitoral, 5 sutures (1.5 x 3 cm); left ant labial 7 sutures (1.5 x 4 cm); right labial minora, 8 sutures (1.5 x 4.5 cm) 8 sutures. Findings of the Procedure With informed consent the patient was taken to the operating room. She was prepped and draped in the usual sterile fashion in the dorsolithotomy position. The bladder was drained with a straight cath of clear, yellow urine. an exam under anesthesia was done. There are three raised lesions. One on the right anterior periclitoral area is raised and slightly pigmented. It appears to be a seborrhea. It is approximately 3 mm in diameter. The second is ln the left in the anterior labial area and is approximately 4 mm. It is not pigmented, but is irregular in appearance. It is acetowhite and appears to be BRADLEY. The third is on the right labia minora and wraps over the edge of the labia into the interlabial crease. It is irregular in appearance and about 5-6 mm in diameter. Each lesion was injected with 0.5% Marcaine and a wheal was raised. I placed a suture through the lesion on each one to elevate it and then made an elliptical incision around each one. Measurements are below. I excised each lesion and then closed each one with interrupted 4-0 Monocryl (the patient requested non absorbable sutures). There was good hemostasis. The patient was awakened and taken to recovery in stable condition. Sponge, lap, needle and instrument counts correct times two Allergies and Home Medications Allergies Coded Allergies: Bacitracin Zinc (Unverified Allergy, Intermediate, HIVES, RESP PROBLMEMS, 07/09/17) Penicillins (Unverified Allergy, Intermediate, RASH,, 07/09/17) bacitracin (Unverified Allergy, Intermediate, HIVES, RESP PROBLMEMS, 07/09/17) gramicidin D (Unverified Allergy, Intermediate, HIVES, RESP PROBLMEMS, 07/09/17) methylprednisolone sod succ (Unverified Allergy, Intermediate, RESP DIFFICULTY, 07/09/17) neomycin sulfate (Unverified Allergy, Intermediate, HIVES, RESP PROBLMEMS, 07/09/17) polymyxin B (Unverified Allergy, Intermediate, HIVES, RESP PROBLMEMS, 07/09/17) polymyxin B sulfate (Unverified Allergy, Intermediate, HIVES, RESP PROBLMEMS, 07/09/17) Metronidazole HCl (Unverified Adverse Reaction, Mild, N/V, 07/09/17) metronidazole (Unverified Adverse Reaction, Mild, N/V, 07/09/17) Home Medications Cyclobenzaprine HCl 10 Mg Tablet, 10 MG PO Q8H PRN for SPASMS Prescribed by: GUSTAVO TOVAR on 11/11/18 0932 Docusate Sodium 100 Mg Capsule, 100 MG PO DAILY Prescribed by: MICHAEL CORRALES on 03/23/19 1018 Ibuprofen 600 Mg Tablet, 600 MG PO Q6HR PRN for PAIN-MILD Prescribed by: MICHAEL CORRALES on 03/23/19 1018 Levothyroxine Sodium 300 Mcg Tablet, 300 MCG PO DAILY, (Reported) Levothyroxine Sodium 75 Mcg Tablet, 75 MCG PO DAILY, (Reported) Levothyroxine Sodium 200 Mcg Tablet, 800 MCG PO Th, (Reported) Levothyroxine Sodium 200 Mcg Tablet, 600 MCG PO Fr, (Reported) Oxycodone Hcl 5 Mg Tab, 5 MG PO Q4H PRN for PAIN-SEVERE 1 po q 4 hours or 2 po q 6 hours prn for post operative pain. Prescribed by: MICHAEL CORRALES on 03/23/19 1018 Tramadol HCl 50 Mg Tablet, 50 MG PO PRN, (Reported) Zolpidem Tartrate 10 Mg Tablet, 10 MG PO HS, (Reported) [Benzocaine/Menthol] 56 ML AEROSOL, 0 ML TP TID PRN for pain EXTERNAL USE ONLY Prescribed by: MICHAEL CORRALES on 03/23/19 1018 Patient Home Medication List Home Medication List Reviewed: Yes MICHAEL CORRALES DO Mar 23, 2019 10:12
[2019-03-23] MEDS ORDERED: BENZOCAINE/MENTHOL (DERMOPLAST) 56 ML CAN TP PRN (10:15)
[2019-03-23] MEDS ORDERED: IBUPROFEN 600 MG (MOTRIN) TAB PO PRN (10:15)
[2019-03-23] MEDS ORDERED: ACETAMINOPHEN 500 MG TAB (TYLENOL) PO PRN (10:15)
[2019-03-23] MEDS ORDERED: KETOROLAC 30 MG/ML VIAL IVP ONE (10:15)
[2019-03-23] MEDS ORDERED: Benzocaine/Menthol TP (10:18)
[2019-03-23] MEDS ORDERED: OXC5T PO (10:18)
[2019-03-23] MEDS ORDERED: IBUP-844 PO (10:18)
[2019-03-23] MEDS ORDERED: DOCU-143 PO (10:18)
[2019-03-23] MEDS ORDERED: KETOROLAC 30 MG/ML VIAL ONE (10:25)
[2019-03-23] MEDS ORDERED: ONDANSETRON 4 MG/2 ML (SDV) Z0FRAN IVP PRN (10:30)
[2019-03-23] MEDS ORDERED: fentaNYL INJECTION 100 MCG/2 ML AMP IVP ONE (10:30)
[2019-03-23] MEDS ORDERED: MEPERIDINE (DEMEROL) INJ 50 MG/ML IVP ONE (10:30)
[2019-03-23] MEDS ORDERED: morphine INJ 10 MG/ML 1ML (SYR OR VIAL) IVP ONE (10:30)
--- NOTE | 2019-03-23 12:34 | Anesthesia-General Post-Op ---
General Patient Condition Mental Status/LOC: Same as Preop Cardiovascular: Satisfactory Nausea/Vomiting: Absent Respiratory: Satisfactory Pain: Controlled Complications: Absent Post Op Complications Complications None Follow Up Care/Instructions Patient Instructions None needed. Anesthesia/Patient Condition Patient Condition Patient was seen this morning after the procedure and she was doing well, no complaints, stable vital signs, no apparent adverse anesthesia problems. ABRAHAN ROSS DO Mar 23, 2019 12:34
== END 2019-03-23 12:35 | disposition home or self-care (01) ==
LOC: SDC 06:59
PROVIDERS: ATTEND Obstetrics & Gynecology
DX: D07.1 Carcinoma in situ of vulva (principal); G43.909 Migraine, unspecified, not intractable, without status migrainosus; J45.909 Unspecified asthma, uncomplicated; I09.9 Rheumatic heart disease, unspecified; E78.1 Pure hyperglyceridemia; E78.5 Hyperlipidemia, unspecified; E78.00 Pure hypercholesterolemia, unspecified; E03.9 Hypothyroidism, unspecified; I34.0 Nonrheumatic mitral (valve) insufficiency; I07.1 Rheumatic tricuspid insufficiency; I10 Essential (primary) hypertension; F17.200 Nicotine dependence, unspecified, uncomplicated; E66.9 Obesity, unspecified; Z68.39 Body mass index [BMI] 39.0-39.9, adult; Z88.8 Allergy status to other drugs, medicaments and biological substances; Z88.0 Allergy status to penicillin; Z88.1 Allergy status to other antibiotic agents; Z79.891 Long term (current) use of opiate analgesic; Z79.899 Other long term (current) drug therapy; Z86.11 Personal history of tuberculosis; Z90.710 Acquired absence of both cervix and uterus; Z87.09 Personal history of other diseases of the respiratory system; Z80.3 Family history of malignant neoplasm of breast; Z82.49 Family history of ischemic heart disease and other diseases of the circulatory system; Z80.49 Family history of malignant neoplasm of other genital organs
CPT/HCPCS: 87081

== ENCOUNTER 2019-04-05 23:18 | Emergency (ER) | payer BC ==
[~2019-04-05] VITALS: Ht 172.7 cm; Wt 118.0 kg
[~2019-04-05 23:18] MED LIST changes: +Benzocaine/Menthol TP; +DOCU-143 PO; +IBUP-844 PO; +OXC5T PO
[2019-04-06] MEDS ORDERED: LIDOCAINE 2% VISCOUS 15 ML UDC PO ONE
--- NOTE | 2019-04-06 00:05 | ED EENT ---
History of Present Illness General Chief Complaint: Oral/Throat Problems Stated Complaint: THRUSH, HAS F O LOGGED IN THROAT Nursing Triage Note: PT STATES SHE HAS BEEN TREATED FOR THRUSH THAT ONSET LAST WEEK, STATES SHE HAS FINISHED ALL MEDS EXCEPT FOR PO KEFLEX, STATES SHE HAS NOT IMPROVED AND HAS WORSENED WITH HER SYMPTOMS OF SORE THROAT AND PAINFUL SWALLOWING. STATES SHE FEELS LIKE THERE IS SOMETHING STUCK DEEP INSIDE HER THROAT. Source: patient Exam Limitations: no limitations History of Present Illness Date Seen by Provider: Apr 06, 2019 Time Seen by Provider: 23:50 Initial Comments Patient presents to the ER by private conveyance with chief complaint that she has thrush again. She was started on Friday, 6 days ago Bactrim for UTI and then she thinks she had a reaction to it and her doctor gave her some prednisone for the allergic reaction stopped it put her on Keflex. She's had thrush before but she denies a history of HIV or immunocompromise. She is on nystatin swish and spit but she says it feels like a deeper in her esophagus and she is having is getting worse. She's not having any fevers or chills. She states her doctors worked her up several times and why she has recurrent thrush. She says she has not eaten anything solid extent or yogurt for the past couple days and she doesn't think anything is stuck in her throat. She is able to drink fluids. She's having no shortness of breath or difficulty breathing. Allergies and Home Medications Allergies Coded Allergies: Bacitracin Zinc (Unverified Allergy, Intermediate, HIVES, RESP PROBLMEMS, 07/09/17) Penicillins (Unverified Allergy, Intermediate, RASH,, 07/09/17) bacitracin (Unverified Allergy, Intermediate, HIVES, RESP PROBLMEMS, 07/09/17) gramicidin D (Unverified Allergy, Intermediate, HIVES, RESP PROBLMEMS, 07/09/17) methylprednisolone sod succ (Unverified Allergy, Intermediate, RESP DIFFICULTY, 07/09/17) neomycin sulfate (Unverified Allergy, Intermediate, HIVES, RESP PROBLMEMS, 07/09/17) polymyxin B (Unverified Allergy, Intermediate, HIVES, RESP PROBLMEMS, 07/09/17) polymyxin B sulfate (Unverified Allergy, Intermediate, HIVES, RESP PROBLMEMS, 07/09/17) Metronidazole HCl (Unverified Adverse Reaction, Mild, N/V, 07/09/17) metronidazole (Unverified Adverse Reaction, Mild, N/V, 07/09/17) Home Medications Cyclobenzaprine HCl 10 Mg Tablet, 10 MG PO Q8H PRN for SPASMS Prescribed by: GUSTAVO TOVAR on 11/11/18 0932 Docusate Sodium 100 Mg Capsule, 100 MG PO DAILY Prescribed by: MICHAEL CORRALES on 03/23/19 1018 Ibuprofen 600 Mg Tablet, 600 MG PO Q6HR PRN for PAIN-MILD Prescribed by: MICHAEL CORRALES on 03/23/19 1018 Levothyroxine Sodium 300 Mcg Tablet, 300 MCG PO DAILY, (Reported) Levothyroxine Sodium 75 Mcg Tablet, 75 MCG PO DAILY, (Reported) Levothyroxine Sodium 200 Mcg Tablet, 800 MCG PO Th, (Reported) Levothyroxine Sodium 200 Mcg Tablet, 600 MCG PO Fr, (Reported) Oxycodone Hcl 5 Mg Tab, 5 MG PO Q4H PRN for PAIN-SEVERE 1 po q 4 hours or 2 po q 6 hours prn for post operative pain. Prescribed by: MICHAEL CORRALES on 03/23/19 1018 Tramadol HCl 50 Mg Tablet, 50 MG PO PRN, (Reported) Zolpidem Tartrate 10 Mg Tablet, 10 MG PO HS, (Reported) [Benzocaine/Menthol] 56 ML AEROSOL, 0 ML TP TID PRN for pain EXTERNAL USE ONLY Prescribed by: MICHAEL CORRALES on 03/23/19 1018 Patient Home Medication List Home Medication List Reviewed: Yes Review of Systems Review of Systems Constitutional: No chills, No diaphoresis Eyes: Denies Blindness, Denies Blurred Vision Ears: Denies Dizziness, Denies Pain Nose: denies clots, denies congestion Past Dffvcjr-Hzaflz-Elzfzs Hx Patient Social History Alcohol Use: Denies Use Recreational Drug Use: No Smoking Status: Current Everyday Smoker Type Used: Cigarettes 2nd Hand Smoke Exposure: Yes Recent Foreign Travel: No Contact w/Someone Who Travel: No Recent Infectious Disease Expo: No Recent Hopitalizations: No Immunizations Up To Date Tetanus Booster (TDap): More than 5yrs Date of Pneumonia Vaccine: December 28, 2012 Date of Influenza Vaccine: Apr 18, 2011 Seasonal Allergies Seasonal Allergies: Yes Past Medical History Surgeries: Yes (ovarian cyst, BILAT KNEE SCOPES, BILAT SHOULDER SCOPES, BILAT CTR) Gallbladder, 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, Orthopedic, 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 Respiratory: Yes Asthma Currently Using CPAP: No Currently Using BIPAP: No Cardiac: Yes (HX PERICARDIAL EFFUSION, HEART CATH-CLEAR) Rheumatic Fever Neurological: Yes (PT STATES SHE ALWAYS HAS NUMBNESS AND TINGLING ALL OVER HER BODY OFF AND ON) Headaches /Migraines, Neuropathy : No 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 Disorders: Yes Female 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 Disorders: Menstrual Problems, 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, Ovarian Cyst JOB [employer]ESS [employer]ER History: 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, 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 Sexually Transmitted Disease: No ( ) HIV/AIDS: No Genitourinary: No Gastrointestinal: Yes Chronic Constipation Musculoskeletal: Yes (CHRONIC PAIN) Rheumatoid Arthritis, Chronic Back Pain Endocrine: Yes (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) Hypothyroidsim HEENT: Yes (GLASSES/CONTACTS) Loss of Vision: Denies Hearing Impairment: Denies Cancer: No Psychosocial: Yes Sleep Difficulties, Anxiety, Depression Integumentary: No Blood Disorders: No Adverse Reaction/Blood Tranf: No (N/A) Family Medical History Asthma son CANC 19 MOTHER (CANCER OF GALLBLADDER AND UTERUS) Diabetes mellitus G8 SISTER FH: cancer Hypertension 19 FATHER Psychosocial problem G8 SISTER (ANXIETY) Thyroid disease 19 MOTHER (HYPERTHYROID) No Pertinent Family Hx Physical Exam Vital Signs Vital Signs - First Documented 04/05/19 23:28 Temp 97.4 Pulse 95 Resp 20 B/P (MAP) 143/104 (117) Pulse Ox 98 O2 Delivery Room Air Height, Weight, BMI Height: 5'8.00" Weight: 260lbs. 4.0oz. 118.292607tu; 39.6 BMI Method:Stated General Appearance: WD/WN, no apparent distress Eyes: bilateral eye normal inspection, bilateral eye PERRL, bilateral eye EOMI Ears: bilateral ear auricle normal, bilateral ear canal normal, bilateral ear TM normal Nose: normal inspection, active bleeding, discharge Mouth/Throat: other (erythematous, without any swelling. Tonsils are small no erythema in the posterior pharynx however there are some white plaques on the tongue. No plaques seen in the retropharynx.) Neck: non-tender, full range of motion, supple, normal inspection Progress/Results/Core Measures Results/Orders My Orders Orders - GUSTAVO TOVAR Lidocaine 2% Viscous 15 Ml (Xylocaine Vi (04/06/19 00:00) Vital Signs/I&O 04/05/19 23:28 Temp 97.4 Pulse 95 Resp 20 B/P (MAP) 143/104 (117) Pulse Ox 98 O2 Delivery Room Air Blood Pressure Mean: 117 Progress Progress Note : Time: 00:03 Progress Note Viscous lidocaine and the help with the discomfort. We will put her on clotrimazole troches for the possibility of esophageal thrush. We have encouraged her to follow-up with her primary care doctor for her thrush and consider referral for why she might be having recurrent thrush. Departure Impression Primary Impression: Thrush of mouth and esophagus Disposition: HOME, SELF-CARE Condition: Stable Departure-Patient Inst. Decision time for Depature: 00:04 Referrals: YANETH VENTURA MD (PCP/Family) Primary Care Physician Patient Instructions: Thrush (DC) Add. Discharge Instructions: Take the clotrimazole troches 5 times a day for the next week. Follow-up with your primary care doctor to ensure resolution and continue outpatient workup. Return to the ER if you have difficulty swallowing or breathing. All discharge instructions reviewed with patient and/or family. Voiced understanding. Scripts Clotrimazole (Clotrimazole) 10 Mg [place] 10 MG MM 5XD for 7 Days, #35 TAB 0 Refills Prov: GUSTAVO TOVAR 04/06/19 GUSTAVO TOVAR Apr 06, 2019 00:05
[2019-04-06] MEDS ORDERED: CLOT10TR MM (00:08)
[2019-04-06 00:33] VITALS: BP 143/104
== END 2019-04-06 00:34 | disposition home or self-care (01) ==
LOC: EDUNIT# 23:18 → ER 23:20
DX: B37.0 Candidal stomatitis (principal); B37.81 Candidal esophagitis; J45.909 Unspecified asthma, uncomplicated; G43.909 Migraine, unspecified, not intractable, without status migrainosus; G62.9 Polyneuropathy, unspecified; M06.9 Rheumatoid arthritis, unspecified; E03.9 Hypothyroidism, unspecified; F41.9 Anxiety disorder, unspecified; F32.9 Major depressive disorder, single episode, unspecified; F17.210 Nicotine dependence, cigarettes, uncomplicated; Z90.710 Acquired absence of both cervix and uterus; Z98.51 Tubal ligation status; Z88.1 Allergy status to other antibiotic agents; Z88.0 Allergy status to penicillin; Z88.8 Allergy status to other drugs, medicaments and biological substances; Z80.52 Family history of malignant neoplasm of bladder; Z80.8 Family history of malignant neoplasm of other organs or systems; Z82.49 Family history of ischemic heart disease and other diseases of the circulatory system
CPT/HCPCS: 99283

== ENCOUNTER → 2019-05-26 | Outpatient (CLI) | payer BC ==
[~2019-05-26] MED LIST changes: +CATHETER FLUSH 10 ML SYR IV PRN; +CLOT10TR MM; +DIATRIZOATE MEGLUM/SODIUM 37% 120 ML (GASTROGRAFIN) PO ONE; +HOLD METFORMIN - RECEIVED CONTRAST 20 ML VIAL IV SCH; +IOHEXOL 350 MG/ML 100 ML (OMNIPAQUE 350) VIAL IV ONE; +NS 100 ML (IVPB) BAG IV ONE
--- NOTE | 2019-05-26 09:11 | Diagnostic Imaging Report ---
PROCEDURE: CT neck soft tissue with contrast. TECHNIQUE: Multiple contiguous axial images were obtained through the neck after the administration of contrast. Auto Exposure Controls were utilized during the CT exam to meet ALARA standards for radiation dose reduction. INDICATION: Globus sensation. FINDINGS: The posterior nasal pharynx and oral pharynx appear unremarkable. Parapharyngeal fat planes are preserved. Epiglottis and larynx appear unremarkable. No definite thyroid mass is detected. The submandibular and parotid glands appear to be symmetric bilaterally. No cervical lymphadenopathy is seen. There are normal-sized submandibular lymph nodes bilaterally. A BB marker was placed in the left neck at the area of palpable abnormality. No underlying abnormality is seen. IMPRESSION: Essentially unremarkable CT of the soft tissues of the neck. No mass or lymphadenopathy is detected. Dictated by: Dictated on workstation # [id number]
== END ==
LOC: RAD 08:03
PROVIDERS: ATTEND Otolaryngology Otolaryngology/Facial Plastic Surgery
DX: M54.2 Cervicalgia (principal); R20.0 Anesthesia of skin
CPT/HCPCS: 70491

== ENCOUNTER → 2019-05-31 | Outpatient (CLI) | payer BC ==
[~2019-05-31] MED LIST changes: -CATHETER FLUSH 10 ML SYR IV PRN; -DIATRIZOATE MEGLUM/SODIUM 37% 120 ML (GASTROGRAFIN) PO ONE; -HOLD METFORMIN - RECEIVED CONTRAST 20 ML VIAL IV SCH; -IOHEXOL 350 MG/ML 100 ML (OMNIPAQUE 350) VIAL IV ONE; -NS 100 ML (IVPB) BAG IV ONE
--- NOTE | 2019-05-31 10:18 | Diagnostic Imaging Report ---
CLINICAL INDICATION: Patient with thyroid nodule. COMPARISONS: Ultrasound of the thyroid gland dated 12/01/2014. FINDINGS: THYROID NODULES: None. THYROID GLAND: The thyroid gland is diffusely heterogeneous, but otherwise normal size and shape. There is no significant change to the thyroid gland appearance. The right lobe measures 3.1 cm x 1.2 cm x 1.1 cm and the left lobe measures 3.4 cm x 1.3 cm x 1.2 cm in their three dimensions. ISTHMUS: The isthmus is unremarkable and measures 2.5 mm in thickness. IMPRESSION: 1: There is no significant change to the heterogeneous thyroid gland parenchyma with no thyroid nodules. Dictated by: Dictated on workstation # [id number]
== END ==
LOC: RAD 09:43
PROVIDERS: ATTEND Otolaryngology Otolaryngology/Facial Plastic Surgery
DX: E04.1 Nontoxic single thyroid nodule (principal); E07.89 Other specified disorders of thyroid
CPT/HCPCS: 76536

== ENCOUNTER 2019-10-04 05:41 | Outpatient (CLI) | payer BC ==
[~2019-10-04] VITALS: Ht 172.7 cm; Wt 120.0 kg
[~2019-10-04 05:41] MED LIST changes: -LIOT25TA PO; +LIOT25TA11 PO
[2019-10-04] MEDS ORDERED: CARI3CAP PO (13:04)
[2019-10-04] MEDS ORDERED: PANT40TA3 PO (13:04)
[2019-10-04] MEDS ORDERED: LEVO125T6 PO (13:04)
[2019-10-04] MEDS ORDERED: DICL35CA PO (13:04)
[2019-10-04] MEDS ORDERED: TRAZ-190 PO (13:09)
== END 2019-10-04 13:18 | disposition home or self-care (01) ==
LOC: PREOP 05:41
PROVIDERS: ATTEND Surgery
DX: Z01.818 Encounter for other preprocedural examination (principal)

== ENCOUNTER 2019-10-10 12:51 | Emergency (ER) | payer MEDICAID ==
[~2019-10-10] VITALS: Ht 172 cm; Wt 120.0 kg
[~2019-10-10 12:51] MED LIST changes: +CARI3CAP PO; +DICL35CA PO; +LEVO125T6 PO; -MONT10TA24 PO; +MONT10TA26 PO; +TRAZ-227 PO
[2019-10-10] MEDS ORDERED: LACTATED RINGERS 1,000 ML IV ONE (13:07)
[2019-10-10] MEDS ORDERED: KETOROLAC 30 MG/ML VIAL IVP STA (13:07)
[2019-10-10 13:15] LABS: BASOPHILS # (AUTO) 0.1 10^3/uL (0.0-0.1); BASOPHILS % (AUTO) 1 % (0-10); EOSINOPHILS # (AUTO) 0.2 10^3/uL (0.0-0.3); EOSINOPHILS % (AUTO) 2 % (0-10); HEMATOCRIT 46 % (35-52); HEMOGLOBIN 15.6 G/DL (11.5-16.0); LYMPHOCYTES # (AUTO) 2.6 X 10^3 (1.0-4.0); LYMPHOCYTES % (AUTO) 24 % (12-44); MEAN CORPUSCULAR HEMOGLOBIN 33 PG (25-34); MEAN CORPUSCULAR HGB CONC 34 G/DL (32-36); MEAN CORPUSCULAR VOLUME 96 FL (80-99); MEAN PLATELET VOLUME 10.1 FL (7.4-10.4); MONOCYTES # (AUTO) 0.8 X 10^3 (0.0-1.0); MONOCYTES % (AUTO) 7 % (0-12); NEUTROPHILS # (AUTO) 7.2 X 10^3 (1.8-7.8); NEUTROPHILS % (AUTO) 67 % (42-75); PLATELET COUNT 258 10^3/uL (130-400); RED CELL DISTRIBUTION WIDTH 13.8 % (10.0-14.5); WHITE BLOOD COUNT 10.8 10^3/uL (4.3-11.0)
--- NOTE | 2019-10-10 13:20 | ED General ---
General Chief Complaint: Dizziness/Syncope Stated Complaint: POST OP/DIZZINESS/CP Nursing Triage Note: PT CO OF DIZZINESS AND SL CHEST PAIN. HAD RECTAL SURG ON FRIDAY. PT STATES HAD EPISODE OF BLEEDING FRIDAY. Nursing Sepsis Screen: No Definite Risk Source of Information: Patient Exam Limitations: No Limitations History of Present Illness Date Seen by Provider: Oct 10, 2019 Time Seen by Provider: 13:02 Initial Comments Here with report of dizzy, weak and some right upper chest pain for several hours. Had hemorrhoidectomy and fissure repair on Friday morning 2 days ago. Had bleeding yesterday but not significantly today. Does have history of thyroid disorder as well as pericardial effusion. Does have been stable over the last year or 2. Denies nausea or vomiting. Has had decreased appetite/fluid intake since the surgery. States pain is actually better now. She's only had to take ibuprofen for the surgical pain with last dose of last night. She does complain of headache currently. Denies shortness of breath. Does have history of hypertension. Timing/Duration: 12-24 Hours Severity: Moderate Modifying Factors: worse with Movement Associated Systoms: Chest Pain (right upper anterior, reproducible, nonradiating.); No Cough, No Fever/Chills; Headaches; No Nausea/Vomiting, No Shortness of Air; Weakness Allergies and Home Medications Allergies Coded Allergies: Bacitracin Zinc (Unverified Allergy, Intermediate, HIVES, RESP PROBLMEMS, 07/09/17) Penicillins (Unverified Allergy, Intermediate, RASH,, 07/09/17) bacitracin (Unverified Allergy, Intermediate, HIVES, RESP PROBLMEMS, 07/09/17) gramicidin D (Unverified Allergy, Intermediate, HIVES, RESP PROBLMEMS, 07/09/17) methylprednisolone sod succ (Unverified Allergy, Intermediate, RESP DIFFICULTY, 07/09/17) neomycin sulfate (Unverified Allergy, Intermediate, HIVES, RESP PROBLMEMS, 07/09/17) polymyxin B (Unverified Allergy, Intermediate, HIVES, RESP PROBLMEMS, 07/09/17) polymyxin B sulfate (Unverified Allergy, Intermediate, HIVES, RESP PROBLMEMS, 07/09/17) Metronidazole HCl (Unverified Adverse Reaction, Mild, N/V, 07/09/17) metronidazole (Unverified Adverse Reaction, Mild, N/V, 07/09/17) Home Medications Cariprazine Hydrochloride 3 Mg Capsule, 3 MG PO DAILY, (Reported) Diclofenac Submicronized 35 Mg Capsule, 35 MG PO TID, (Reported) Levothyroxine Sodium 125 Mcg Tablet, 250 MCG PO DAILY, (Reported) Pantoprazole Sodium 40 Mg Tablet.dr, 40 MG PO DAILY, (Reported) Tramadol HCl 50 Mg Tablet, 50 MG PO PRN, (Reported) Trazodone HCl 100 Mg Tablet, 100 MG PO HS, (Reported) Patient Home Medication List Home Medication List Reviewed: Yes Review of Systems Review of Systems Constitutional: see HPI; No chills, No fever EENTM: no symptoms reported Respiratory: No cough, No short of breath Cardiovascular: chest pain; No palpitations Gastrointestinal: No abdominal pain, No nausea, No vomiting Genitourinary: no symptoms reported Musculoskeletal: No joint pain; muscle pain Skin: no symptoms reported Psychiatric/Neurological: See HPI, Headache; Denies Weakness All Other Systems Reviewed Negative Unless Noted: Yes Past Jaxacgt-Qhohap-Vwistg Hx Past Med/Social Hx: Reviewed Nursing Past Med/Soc Hx Patient Social History Alcohol Use: Denies Use Recreational Drug Use: No Smoking Status: Current Everyday Smoker Type Used: Cigarettes 2nd Hand Smoke Exposure: Yes Recent Foreign Travel: No Contact w/Someone Who Travel: No Recent Infectious Disease Expo: No Recent Hopitalizations: No Physical Abuse: No Sexual Abuse: No Immunizations Up To Date Tetanus Booster (TDap): More than 5yrs Date of Pneumonia Vaccine: December 28, 2012 Date of Influenza Vaccine: Apr 18, 2011 Seasonal Allergies Seasonal Allergies: Yes Past Medical History Surgeries: Yes (ovarian cyst, BILAT KNEE SCOPES, BILAT SHOULDER SCOPES, BILAT CTR) Gallbladder, 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, Orthopedic, 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 Respiratory: Yes Asthma Currently Using CPAP: No Currently Using BIPAP: No Cardiac: Yes (HX PERICARDIAL EFFUSION, HEART CATH-CLEAR) Rheumatic Fever Neurological: Yes (PT STATES SHE ALWAYS HAS NUMBNESS AND TINGLING ALL OVER HER BODY OFF AND ON) Headaches /Migraines, Neuropathy 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 Disorders: Yes Female 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 Disorders: Menstrual Problems, 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, 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, 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 Sexually Transmitted Disease: No ( ) HIV/AIDS: No Genitourinary: No Gastrointestinal: Yes Chronic Constipation, Hemorrhoids Musculoskeletal: Yes (CHRONIC PAIN) Rheumatoid Arthritis, Chronic Back Pain Endocrine: Yes (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) Hypothyroidsim HEENT: Yes (GLASSES/CONTACTS) Loss of Vision: Denies Hearing Impairment: Denies Cancer: No Psychosocial: Yes Sleep Difficulties, Anxiety, Depression Integumentary: No Blood Disorders: No Adverse Reaction/Blood Tranf: No (N/A) Family Medical History Reviewed Nursing Family Hx Asthma son CANC 19 MOTHER (CANCER OF GALLBLADDER AND UTERUS) Diabetes mellitus G8 SISTER FH: cancer Hypertension 19 FATHER Psychosocial problem G8 SISTER (ANXIETY) Thyroid disease 19 MOTHER (HYPERTHYROID) Physical Exam Vital Signs Vital Signs - First Documented 10/10/19 12:52 Temp 36.8 Pulse 81 Resp 16 B/P (MAP) 160/109 (126) Pulse Ox 99 Capillary Refill : Less Than 3 Seconds Height, Weight, BMI Height: 5'8.00" Weight: 260lbs. 4.0oz. 118.734540wh; 40.00 BMI Method:Stated General Appearance: WD/WN, Mild Distress, Obese HEENT: PERRL/EOMI, TMs Normal, Pharyngeal Erythema Neck: Normal Inspection, Non Tender, Supple Respiratory: Lungs Clear, Normal Breath Sounds Cardiovascular: Regular Rate, Rhythm, No Murmur Gastrointestinal: Non Tender, Soft Back: Normal Inspection, No CVA Tenderness, No Vertebral Tenderness Extremity: Normal Range of Motion, Non Tender Neurologic/Psychiatric: Alert, Oriented x3 Progress/Results/Core Measures Suspected Sepsis Recent Fever Within 48 Hours: No Infection Criteria Present: None New/Unexplained Altered Menta: No Sepsis Screen: No Definite Risk SIRS Temperature: Pulse: 81 Respiratory Rate: 16 Laboratory Tests 10/10/19 12:57: White Blood Count 10.8 Blood Pressure 160 /109 Mean: 126 Laboratory Tests 10/10/19 12:57: Creatinine 1.21, Platelet Count 258, Total Bilirubin 0.5 Results/Orders Lab Results Laboratory Tests Test 10/10/19 12:57 10/10/19 13:46 Range/Units White Blood Count 10.8 4.3-11.0 10^3/uL Red Blood Count 4.77 4.35-5.85 10^6/uL Hemoglobin 15.6 11.5-16.0 G/DL Hematocrit 46 35-52 % Mean Corpuscular Volume 96 80-99 FL Mean Corpuscular Hemoglobin 33 25-34 PG Mean Corpuscular Hemoglobin Concent 34 32-36 G/DL Red Cell Distribution Width 13.8 10.0-14.5 % Platelet Count 258 130-400 10^3/uL Mean Platelet Volume 10.1 7.4-10.4 FL Neutrophils (%) (Auto) 67 42-75 % Lymphocytes (%) (Auto) 24 12-44 % Monocytes (%) (Auto) 7 0-12 % Eosinophils (%) (Auto) 2 0-10 % Basophils (%) (Auto) 1 0-10 % Neutrophils # (Auto) 7.2 1.8-7.8 X 10^3 Lymphocytes # (Auto) 2.6 1.0-4.0 X 10^3 Monocytes # (Auto) 0.8 0.0-1.0 X 10^3 Eosinophils # (Auto) 0.2 0.0-0.3 10^3/uL Basophils # (Auto) 0.1 0.0-0.1 10^3/uL Sodium Level 141 135-145 MMOL/L Potassium Level 3.6 3.6-5.0 MMOL/L Chloride Level 104 98-107 MMOL/L Carbon Dioxide Level 27 21-32 MMOL/L Anion Gap 10 5-14 MMOL/L Blood Urea Nitrogen 11 7-18 MG/DL Creatinine 1.21 0.60-1.30 MG/DL Estimat Glomerular Filtration Rate 51 BUN/Creatinine Ratio 9 Glucose Level 96 70-105 MG/DL Calcium Level 9.5 8.5-10.1 MG/DL Corrected Calcium 8.5-10.1 MG/DL Total Bilirubin 0.5 0.1-1.0 MG/DL Aspartate Amino Transf (AST/SGOT) 30 5-34 U/L Alanine Aminotransferase (ALT/SGPT) 36 0-55 U/L Alkaline Phosphatase 95 40-136 U/L Troponin I < 0.028 <0.028 NG/ML C-Reactive Protein High Sensitivity 0.07 0.00-0.50 MG/DL Total Protein 8.0 6.4-8.2 GM/DL Albumin 4.8 H 3.2-4.5 GM/DL Thyroid Stimulating Hormone (TSH) 93.96 H 0.35-4.94 UIU/ML Free Thyroxine 0.54 L 0.70-1.48 NG/DL Urine Color YELLOW Urine Clarity CLEAR Urine pH 6.5 5-9 Urine Specific [place] 1.010 L 1.016-1.022 Urine Protein NEGATIVE NEGATIVE Urine Glucose (UA) NEGATIVE NEGATIVE Urine Ketones NEGATIVE NEGATIVE Urine Nitrite NEGATIVE NEGATIVE Urine Bilirubin NEGATIVE NEGATIVE Urine Urobilinogen 0.2 < = 1.0 MG/DL Urine Leukocyte Esterase TRACE H NEGATIVE Urine RBC (Auto) TRACE-I NEGATIVE Urine RBC 0-2 /HPF Urine WBC 2-5 /HPF Urine Squamous Epithelial Cells 5-10 /HPF Urine Renal Epithelial Cells NONE /HPF Urine Crystals NONE /LPF Urine Bacteria TRACE /HPF Urine Casts NONE /LPF Urine Mucus NEGATIVE /LPF Urine Culture Indicated YES My Orders Orders - ANN SEWELL MD Ketorolac Injection (Toradol Injection) (10/10/19 13:07) Ed Iv/Invasive Line Start (10/10/19 13:07) Lactated Ringers (Lr 1000 Ml Iv Solution (10/10/19 13:07) Cbc With Automated Diff (10/10/19 13:07) Comprehensive Metabolic Panel (10/10/19 13:07) Hs C Reactive Protein (10/10/19 13:07) Thyroid Stimulating Hormone (10/10/19 13:07) Troponin I (10/10/19 13:07) Chest 1 View, Ap/Pa Only (10/10/19 13:07) Ekg Tracing (10/10/19 13:07) Monitor-Rhythm Ecg Trace Only (10/10/19 13:07) Free T4 (Free Thyroxine) (10/10/19 13:07) Ua Culture If Indicated (10/10/19 13:48) Urine Culture (10/10/19 13:46) Medications Given in ED Current Medications Medications Dose Ordered Sig/Narinder Route Start Time Stop Time Status Last Admin Dose Admin Lactated Ringer's 1,000 ml @ 0 mls/hr Q0M ONCE IV 10/10/19 13:07 10/10/19 13:10 DC 10/10/19 13:19 1,000 MLS/HR Vital Signs/I&O 10/10/19 12:52 Temp 36.8 Pulse 81 Resp 16 B/P (MAP) 160/109 (126) Pulse Ox 99 Capillary Refill : Less Than 3 Seconds Blood Pressure Mean: 126 Progress Note : Progress Note Seen and evaluated. IV, labs, chest x-ray and EKG ordered. LR 1 L bolus. Toradol 30 mg IV ordered. Monitor patient. 1437: Patient doing a little better. Labs and evaluation reviewed with the patient. No acute findings currently except for thyroid hormone is out. This was discussed with the patient. She states this is fairly typical and she is probably do another med adjustment. They had taken her down from 600 g of levothyroxine daily to 250 micrograms of levothyroxine daily. She's been up as high as 1400. She will talk to her doctor about this and labs were given to her to take to her doctor. I did discuss return precautions. Discharged home with return precautions. Patient verbalize understanding instructions and agreement with plan. ECG Initial ECG Impression Date: Oct 10, 2019 Initial ECG Impression Time: 12:59 Initial ECG Rate: 80 Initial ECG Rhythm: Normal Sinus Comment Sinus rhythm with low voltage in frontal leads. Normal axis. No evidence of ST elevation [place]. Similar to previous of 05/08/16. Interpreted by me. Diagnostic Imaging Diagonstic Imaging: Xray Plain Films/CT/US/NM/MRI: chest Comments [facility], [place] NAME: ANUJA CULP [facility] REC#: [id number] PT STATUS: REG ER : 1985 PHYSICIAN: ANN SEWELL MD ADMIT DATE: 10/10/19/ER Draft Date of Exam:10/10/19 CHEST 1 VIEW, AP/PA ONLY EXAM: CHEST 1 VIEW, AP/PA ONLY INDICATION: Chest pain. COMPARISON: 11/11/2018. FINDINGS: Normal heart size and pulmonary vascularity. No dense consolidation, pleural effusion or pneumothorax. No acute osseous findings. No significant change. IMPRESSION: Negative chest. Dictated on workstation # [id number] Dict: 10/10/19 1335 Trans: 10/10/19 1337 [id number] Interpreted by: MARY GRACE CONDE MD Electronically signed by: Departure Impression Primary Impression: Dehydration Additional Impressions: Hypothyroidism Qualified Codes: E03.9 - Hypothyroidism, unspecified Chest pain Qualified Codes: R07.9 - Chest pain, unspecified Disposition: 01 HOME, SELF-CARE Condition: Stable Departure-Patient Inst. Decision time for Depature: 14:41 Referrals: RITA KIMBROUGH (PCP/Family) Primary Care Physician Patient Instructions: Chest Pain (DC), Dehydration, Adult (DC), Hypothyroidism (Underactive Thyroid) (DC) Add. Discharge Instructions: All discharge instructions reviewed with patient and/or family. Voiced understanding. Drink plenty of fluids and try to eat a normal diet. Follow-up with your provider to discuss thyroid hormone levels. Also follow up for recheck and further evaluation. Return for worse pain, fever, weakness, breathing problems or other concerns as needed. ANN SEWELL MD Oct 10, 2019 13:20
[2019-10-10 13:29] LABS: ALANINE AMINOTRANSFERASE 36 U/L (0-55); ALBUMIN 4.8 GM/DL (3.2-4.5); ALKALINE PHOSPHATASE 95 U/L (40-136); BILIRUBIN,TOTAL 0.5 MG/DL (0.1-1.0); BUN/CREATININE RATIO 9; CALCIUM 9.5 MG/DL (8.5-10.1); CARBON DIOXIDE 27 MMOL/L (21-32); CHLORIDE 104 MMOL/L (98-107); CREATININE SERUM 1.21 MG/DL (0.60-1.30); GFR ESTIMATED 51; GLUCOSE 96 MG/DL (70-105); POTASSIUM 3.6 MMOL/L (3.6-5.0); SODIUM 141 MMOL/L (135-145)
--- NOTE | 2019-10-10 13:37 | Diagnostic Imaging Report ---
EXAM: CHEST 1 VIEW, AP/PA ONLY INDICATION: Chest pain. COMPARISON: 11/11/2018. FINDINGS: Normal heart size and pulmonary vascularity. No dense consolidation, pleural effusion or pneumothorax. No acute osseous findings. No significant change. IMPRESSION: Negative chest. Dictated by: Dictated on workstation # [id number]
[2019-10-10 13:49] LABS: FREE T4 (FREE THYROXINE) 0.54 NG/DL (0.70-1.48)
[2019-10-10 14:00] LABS: BILIRUBIN,URINE NEGATIVE (NEGATIVE); CLARITY,URINE CLEAR; COLOR,URINE YELLOW; GLUCOSE, URINE (UA) NEGATIVE (NEGATIVE); KETONES,URINE NEGATIVE (NEGATIVE); LEUKOCYTE ESTERASE ,URINE TRACE (NEGATIVE); NITRITE,URINE NEGATIVE (NEGATIVE); PH,URINE 6.5 (5-9); PROTEIN,URINE NEGATIVE (NEGATIVE)
[2019-10-10 14:08] LABS: RBC,URINE 0-2 /HPF
[2019-10-10 14:09] LABS: BACTERIA,URINE TRACE /HPF
[2019-10-10 14:48] VITALS: BP 123/88
== END 2019-10-10 14:48 | disposition home or self-care (01) ==
LOC: EDUNIT# 12:51 → ER 12:52
DX: E86.0 Dehydration (principal); E03.9 Hypothyroidism, unspecified; R07.89 Other chest pain; F41.9 Anxiety disorder, unspecified; F32.9 Major depressive disorder, single episode, unspecified; F17.210 Nicotine dependence, cigarettes, uncomplicated; Z88.0 Allergy status to penicillin; Z88.8 Allergy status to other drugs, medicaments and biological substances; Z80.49 Family history of malignant neoplasm of other genital organs; Z82.49 Family history of ischemic heart disease and other diseases of the circulatory system
CPT/HCPCS: 36415; 71045; 80053; 81000; 84439; 84443; 84484; 85025; 86141; 87088; 93005; 93041

== ENCOUNTER → 2020-02-01 | Outpatient (CLI) | payer MEDICAID ==
--- NOTE | 2020-02-01 16:47 | Diagnostic Imaging Report ---
PROCEDURE: US Thyroid. TECHNIQUE: Multiple real-time grayscale images were obtained of the thyroid in various projections. INDICATION: Globus sensation. FINDINGS: Right lobe of thyroid measures 3.6 x 0.8 x 1.1 cm and left lobe measures 3.4 x 0.6 x 1.3 cm. Both lobes are heterogeneous but no discrete thyroid mass is detected. IMPRESSION: Heterogeneous thyroid. No discrete thyroid mass is detected. Dictated by: Dictated on workstation # [id number]
== END ==
LOC: RAD 15:36
PROVIDERS: ATTEND Otolaryngology Otolaryngology/Facial Plastic Surgery
DX: F45.8 Other somatoform disorders (principal)
CPT/HCPCS: 76536

== ENCOUNTER 2020-03-03 14:54 | Emergency (ER) | payer MEDICAID ==
[~2020-03-03] VITALS: Ht 172 cm; Wt 126.0 kg
[~2020-03-03 14:54] MED LIST changes: +MULT-567 PO; -MULT1TAB69 PO
--- NOTE | 2020-03-03 15:15 | NUR ---
COVID SWAB COMPLETED
[2020-03-03] MEDS ORDERED: RX-ALBUTEROL INHALER 8 GM HFA (VENTOLIN) IH STA (15:18)
--- NOTE | 2020-03-03 15:18 | ED Cough/URI ---
General Chief Complaint: Respiratory Problems Stated Complaint: COUGH;SOA Nursing Triage Note: ARRIVED VIA POV TO COVID WITH COMPLAINTS OF SORETHROAT, NASAL CONGESTION, COUGH, AND CHEST PRESSURE FOR A COUPLE OF DAYS. DENIES FEVER. Sepsis Screen: No Definite Risk Source: patient Exam Limitations: no limitations History of Present Illness Date Seen by Provider: Mar 03, 2020 Time Seen by Provider: 15:00 Initial Comments Patient arrives ER by private conveyance from home with chief complaint of 3 days of cough, shortness of breath, malaise and body aches without fever or chills. She's had sore throat congestion and runny nose. 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 She did take Tylenol yesterday for headache and NyQuil last night but no antipyretics today. She has not had to take albuterol for her presumptive she has COPD for over a year. She does smoke about a pack cigarettes per day. She is not having any diarrhea constipation dysuria nausea or vomiting. Allergies and Home Medications Allergies Coded Allergies: Bacitracin Zinc (Unverified Allergy, Intermediate, HIVES, RESP PROBLMEMS, 07/09/17) Penicillins (Unverified Allergy, Intermediate, RASH,, 07/09/17) bacitracin (Unverified Allergy, Intermediate, HIVES, RESP PROBLMEMS, 1 09/08/16) gramicidin D (Unverified Allergy, Intermediate, HIVES, RESP PROBLMEMS, 07/09/17) methylprednisolone sod succ (Unverified Allergy, Intermediate, RESP DIFFICULTY, 07/09/17) neomycin sulfate (Unverified Allergy, Intermediate, HIVES, RESP PROBLMEMS, 07/09/17) polymyxin B (Unverified Allergy, Intermediate, HIVES, RESP PROBLMEMS, 07/09/17) polymyxin B sulfate (Unverified Allergy, Intermediate, HIVES, RESP PROBLMEMS, 07/09/17) Metronidazole HCl (Unverified Adverse Reaction, Mild, N/V, 07/09/17) metronidazole (Unverified Adverse Reaction, Mild, N/V, 07/09/17) Home Medications Cariprazine Hydrochloride 3 Mg Capsule, 3 MG PO DAILY, (Reported) Diclofenac Submicronized 35 Mg Capsule, 35 MG PO TID, (Reported) Levothyroxine Sodium 125 Mcg Tablet, 250 MCG PO DAILY, (Reported) Pantoprazole Sodium 40 Mg Tablet.dr, 40 MG PO DAILY, (Reported) Tramadol HCl 50 Mg Tablet, 50 MG PO PRN, (Reported) Trazodone HCl 100 Mg Tablet, 100 MG PO HS, (Reported) Patient Home Medication List Home Medication List Reviewed: Yes Review of Systems Review of Systems Constitutional: chills, fever, malaise EENTM: nose congestion, throat pain; No ear discharge, No hearing loss, No ear pain, No eye pain, No nose pain, No throat swelling Respiratory: cough; No phlegm; short of breath; No wheezing Cardiovascular: No chest pain, No palpitations Gastrointestinal: No abdominal pain, No nausea Genitourinary: No discharge, No dysuria Musculoskeletal: No back pain, No joint pain All Other Systems Reviewed Negative Unless Noted: Yes Past Qykkopd-Bhtpcf-Yffnjr Hx Patient Social History Alcohol Use: Denies Use Recreational Drug Use: No Smoking Status: Current Everyday Smoker Type Used: Cigarettes 2nd Hand Smoke Exposure: Yes Recent Foreign Travel: No Contact w/Someone Who Travel: No Recent Infectious Disease Expo: No Recent Hopitalizations: No Immunizations Up To Date Tetanus Booster (TDap): More than 5yrs Date of Pneumonia Vaccine: December 28, 2012 Date of Influenza Vaccine: Apr 18, 2011 Seasonal Allergies Seasonal Allergies: Yes Past Medical History Surgeries: Yes (ovarian cyst, BILAT KNEE SCOPES, BILAT SHOULDER SCOPES, BILAT CTR) Gallbladder, 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, Orthopedic, 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 Respiratory: Yes Asthma Currently Using CPAP: No Currently Using BIPAP: No Cardiac: Yes (HX PERICARDIAL EFFUSION, HEART CATH-CLEAR) Rheumatic Fever Neurological: Yes (PT STATES SHE ALWAYS HAS NUMBNESS AND TINGLING ALL OVER HER BODY OFF AND ON) Headaches /Migraines, Neuropathy 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 Disorders: Yes Female 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 Disorders: Menstrual Problems, 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, 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, 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 Sexually Transmitted Disease: No ( ) HIV/AIDS: No Genitourinary: No Gastrointestinal: Yes Chronic Constipation, Hemorrhoids Musculoskeletal: Yes (CHRONIC PAIN) Rheumatoid Arthritis, Chronic Back Pain Endocrine: Yes (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) Hypothyroidsim HEENT: Yes (GLASSES/CONTACTS) Loss of Vision: Denies Hearing Impairment: Denies Cancer: No Psychosocial: Yes Sleep Difficulties, Anxiety, Depression Integumentary: No Blood Disorders: No Adverse Reaction/Blood Tranf: No (N/A) Family Medical History Asthma son CANC 19 MOTHER (CANCER OF GALLBLADDER AND UTERUS) Diabetes mellitus G8 SISTER FH: cancer Hypertension 19 FATHER Psychosocial problem G8 SISTER (ANXIETY) Thyroid disease 19 MOTHER (HYPERTHYROID) Physical Exam Vital Signs - First Documented 03/03/20 14:55 Temp 37.0 Pulse 91 Resp 16 B/P (MAP) 128/93 (105) O2 Delivery Room Air Capillary Refill : Less Than 3 Seconds Height: 5'8.00" Weight: 260lbs. 4.0oz. 118.556882en; 42.00 BMI Method:Stated General Appearance: WD/WN, mild distress Eyes: Bilateral Eye Normal Inspection, Bilateral Eye PERRL, Bilateral Eye EOMI HEENT: PERRL/EOMI, TMs normal, pharynx normal Neck: non-tender, full range of motion, normal inspection Respiratory: chest non-tender, lungs clear, normal breath sounds, no respiratory distress, no accessory muscle use Cardiovascular: normal peripheral pulses, regular rate, rhythm Extremities: non-tender, normal inspection, normal capillary refill Neurologic/Psychiatric: alert, normal mood/affect, oriented x 3 Skin: normal color, warm/dry Progress/Results/Core Measures Suspected Sepsis Recent Fever Within 48 Hours: No Infection Criteria Present: Suspected New Infection New/Unexplained Altered Menta: No Sepsis Screen: No Definite Risk SIRS Temperature: Pulse: 91 Respiratory Rate: 16 Blood Pressure 128 /93 Mean: 105 Results/Orders Lab Results Laboratory Tests Test 03/03/20 15:15 Range/Units Group A Streptococcus Screen NEGATIVE NEGATIVE My Orders Orders - GUSTAVO TOVAR Coronavirus Sars-Cov-2 So 2018 (03/03/20 15:15) Chest 1 View, Ap/Pa Only (03/03/20 15:15) Rapid Strep A Screen (03/03/20 15:15) Rx-Albuterol Inhaler (Rx-Ventolin Hfa In (03/03/20 15:18) Vital Signs/I&O 03/03/20 14:55 Temp 37.0 Pulse 91 Resp 16 B/P (MAP) 128/93 (105) O2 Delivery Room Air Capillary Refill : Less Than 3 Seconds Blood Pressure Mean: 105 Progress Note : Time: 15:19 Progress Note Patient has normal sounding lungs and aseptic vital signs. She's not having any increased work of breathing. Plan to give her albuterol inhaler spacer and swab her for rapid strep and COVID 19. We'll let her go home and quarantine. Chest x- ray. Diagnostic Imaging Diagonstic Imaging: Xray Plain Films/CT/US/NM/MRI: chest (1v) Comments NAME: ANUJA CULP [facility] REC#: [id number] PT STATUS: REG ER : 1985 PHYSICIAN: GUSTAVO TOVAR MD ADMIT DATE: 03/03/20/ER Draft Date of Exam:03/03/20 CHEST 1 VIEW, AP/PA ONLY INDICATION: Respiratory difficulty. TIME OF EXAM: 02:59 p.m. Correlation is made with prior chest from 10/10/2019. FINDINGS: The heart size is normal. The pulmonary vascularity is unremarkable. The lungs are clear. No infiltrate, effusion or pneumothorax is detected. IMPRESSION: No acute cardiopulmonary process is detected. Dictated on workstation # [id number] Dict: 03/03/20 1521 Trans: 03/03/20 1524 [id number] Interpreted by: GENE JOSEPH MD Electronically signed by: Reviewed: Reviewed by Me Departure Impression Primary Impression: Bronchitis, chronic obstructive w acute bronchitis Disposition: 01 HOME, SELF-CARE Condition: Stable Departure-Patient Inst. Decision time for Depature: 15:40 Referrals: RITA KIMBROUGH (PCP/Family) Primary Care Physician Patient Instructions: Acute Bronchitis, Adult (DC) Add. Discharge Instructions: Make sure drinking lots of fluids to stay hydrated. Tylenol 1000 mg every 8 hours as necessary for pain or fever. Ibuprofen 800 mg every 8 hours as necessary for pain or fever. Tplx-[id number] cough and cold medicines to treat symptoms as necessary. Albuterol 2 puffs through the spacer every 4 hours as necessary for coughing fits, wheezing or shortness of breath. Return to the ER promptly for significant worsening symptoms. Expect to resolve in 5-7 days. You may return to work 10 days after symptoms began and 72 hours after resolution of symptoms which ever is longer. Stay home and quarantine until then. All discharge instructions reviewed with patient and/or family. Voiced understanding. Work/School Note: Work Release Form Date Seen in the Emergency Department: Mar 03, 2020 Return to Work: Mar 13, 2020 Restrictions: No Restrictions Other Restrictions Listed Below: Return to work 10 days after symptoms start and/or 72 hours symptom free. GUSTAVO TOVAR Mar 03, 2020 15:18
--- NOTE | 2020-03-03 15:25 | Diagnostic Imaging Report ---
INDICATION: Respiratory difficulty. TIME OF EXAM: 02:59 p.m. Correlation is made with prior chest from 10/10/2019. FINDINGS: The heart size is normal. The pulmonary vascularity is unremarkable. The lungs are clear. No infiltrate, effusion or pneumothorax is detected. IMPRESSION: No acute cardiopulmonary process is detected. Dictated by: Dictated on workstation # [id number]
[2020-03-03 16:03] VITALS: BP 125/91
== END 2020-03-03 16:03 | disposition home or self-care (01) ==
LOC: EDUNIT# 14:54 → ER 14:55
DX: J20.9 Acute bronchitis, unspecified (principal); J44.0 Chronic obstructive pulmonary disease with (acute) lower respiratory infection; G62.9 Polyneuropathy, unspecified; E03.9 Hypothyroidism, unspecified; F41.9 Anxiety disorder, unspecified; F32.9 Major depressive disorder, single episode, unspecified; M06.9 Rheumatoid arthritis, unspecified; G89.29 Other chronic pain; M54.9 Dorsalgia, unspecified; G43.909 Migraine, unspecified, not intractable, without status migrainosus; F17.210 Nicotine dependence, cigarettes, uncomplicated; Z20.828 Contact with and (suspected) exposure to other viral communicable diseases; Z79.891 Long term (current) use of opiate analgesic; Z88.0 Allergy status to penicillin; Z79.890 Hormone replacement therapy; Z95.9 Presence of cardiac and vascular implant and graft, unspecified; Z88.1 Allergy status to other antibiotic agents; Z88.8 Allergy status to other drugs, medicaments and biological substances; Z80.0 Family history of malignant neoplasm of digestive organs; Z80.49 Family history of malignant neoplasm of other genital organs; Z82.49 Family history of ischemic heart disease and other diseases of the circulatory system
CPT/HCPCS: 71045; 87430; 99283; U0002; 87635

== ENCOUNTER 2020-04-19 11:09 | Emergency (ER) | payer MEDICAID ==
[~2020-04-19] VITALS: Ht 177 cm; Wt 99.7 kg
[2020-04-19] MEDS ORDERED: NS IV 1000 ML 1,000 ML IV SCH (11:23)
[2020-04-19] MEDS ORDERED: ASPIRIN 81 MG CHEW (CHILDREN'S ASA) PO ONE (11:30)
[2020-04-19] MEDS ORDERED: hydrALAZINE (APESOLINE) 20 MG/ML VIAL IV ONE (11:30)
[2020-04-19 11:31] LABS: BASOPHILS % (AUTO) 1 % (0-10); EOSINOPHILS # (AUTO) 0.2 10^3/uL (0.0-0.3); EOSINOPHILS % (AUTO) 2 % (0-10); HEMATOCRIT 46 % (35-52); HEMOGLOBIN 15.7 G/DL (11.5-16.0); LYMPHOCYTES # (AUTO) 2.7 X 10^3 (1.0-4.0); LYMPHOCYTES % (AUTO) 30 % (12-44); MEAN CORPUSCULAR HEMOGLOBIN 32 PG (25-34); MEAN CORPUSCULAR HGB CONC 34 G/DL (32-36); MEAN CORPUSCULAR VOLUME 96 FL (80-99); MEAN PLATELET VOLUME 10.1 FL (7.4-10.4); MONOCYTES # (AUTO) 0.7 X 10^3 (0.0-1.0); MONOCYTES % (AUTO) 8 % (0-12); NEUTROPHILS # (AUTO) 5.2 X 10^3 (1.8-7.8); NEUTROPHILS % (AUTO) 59 % (42-75); PLATELET COUNT 252 10^3/uL (130-400); RED CELL DISTRIBUTION WIDTH 14.3 % (10.0-14.5); WHITE BLOOD COUNT 8.8 10^3/uL (4.3-11.0)
[2020-04-19 11:37] LABS: PROTHROMBIN TIME PATIENT 13.5 SEC (12.2-14.7)
[2020-04-19 11:39] LABS: ALBUMIN 4.8 GM/DL (3.2-4.5); CHLORIDE 103 MMOL/L (98-107); POTASSIUM 3.7 MMOL/L (3.6-5.0); SODIUM 139 MMOL/L (135-145)
[2020-04-19 11:40] LABS: CALCIUM 9.9 MG/DL (8.5-10.1)
[2020-04-19 11:41] LABS: GLUCOSE 110 MG/DL (70-105)
[2020-04-19 11:42] LABS: TOTAL PROTEIN 8.1 GM/DL (6.4-8.2)
[2020-04-19 11:43] LABS: BILIRUBIN,TOTAL 0.5 MG/DL (0.1-1.0); CARBON DIOXIDE 24 MMOL/L (21-32)
--- NOTE | 2020-04-19 11:43 | ED Chest Pain ---
General Chief Complaint: Chest Pain Stated Complaint: CHEST PAIN, HIGH BLOOD PRESSURE Nursing Triage Note: PT PRESENTS TO ED WITH COMPLAINTS OF INTERMITTENT MEDIAL CP THAT STARTED YESTERAY AM. PT ALSO REPORTS L SIDED POSTERIOR GASTELUM. Nursing Sepsis Screen: No Definite Risk History of Present Illness Date Seen by Provider: Apr 19, 2020 Time Seen by Provider: 11:20 Initial Comments 34-year-old female presents after 24 hours of chest pain. She reports a mild the time but it was more intense yesterday morning. It persisted for most of the day yesterday. She did not take any medication for the pain or seek healthcare evaluation but did use marijuana which seemed to ease the sensation. She also reports a right-sided headache with tingling on her right extremities, denies weakness in her left side. She's had a history of hypertension and sees Dr. Green. She is not currently on medication for her heart or blood pressure and is not taking aspirin or other anticoagulants. She denies any associated nausea, vomiting or diaphoresis with the chest pain. No known COVID-19 exposure or symptoms. Chronic cough from smoking, 1 pack a day. Timing/Duration: 24 hours Severity/Quality: mild (3/10) Location: substernal Radiation: no radiation Activities at Onset: emotional stress (chronic stress, no new events) Prior CP/Workup: cardiac cath ASA po MANAGER ACTIVITIES: No NTG SL MANAGER ACTIVITIES: No Associated Symptoms: No abdominal pain, No back pain, No diaphoresis, No dizziness, No edema; fatigue; No fever/chills; headache; No heartburn, No nausea/vomiting, No rash, No shortness of breath, No swelling/lump in chest, No syncope, No weakness Allergies and Home Medications Allergies Coded Allergies: Bacitracin Zinc (Unverified Allergy, Intermediate, HIVES, RESP PROBLMEMS, 07/09/17) Penicillins (Unverified Allergy, Intermediate, RASH,, 07/09/17) bacitracin (Unverified Allergy, Intermediate, HIVES, RESP PROBLMEMS, 07/09/17) gramicidin D (Unverified Allergy, Intermediate, HIVES, RESP PROBLMEMS, 07/09/17) methylprednisolone sod succ (Unverified Allergy, Intermediate, RESP DIFFICULTY, 07/09/17) neomycin sulfate (Unverified Allergy, Intermediate, HIVES, RESP PROBLMEMS, 07/09/17) polymyxin B (Unverified Allergy, Intermediate, HIVES, RESP PROBLMEMS, 07/09/17) polymyxin B sulfate (Unverified Allergy, Intermediate, HIVES, RESP PROBLMEMS, 07/09/17) Metronidazole HCl (Unverified Adverse Reaction, Mild, N/V, 07/09/17) metronidazole (Unverified Adverse Reaction, Mild, N/V, 07/09/17) Home Medications Cariprazine Hydrochloride 3 Mg Capsule, 3 MG PO DAILY, (Reported) Diclofenac Submicronized 35 Mg Capsule, 35 MG PO TID, (Reported) Levothyroxine Sodium 125 Mcg Tablet, 250 MCG PO DAILY, (Reported) Pantoprazole Sodium 40 Mg Tablet.dr, 40 MG PO DAILY, (Reported) Tramadol HCl 50 Mg Tablet, 50 MG PO PRN, (Reported) Trazodone HCl 100 Mg Tablet, 100 MG PO HS, (Reported) Patient Home Medication List Home Medication List Reviewed: Yes Review of Systems Review of Systems Constitutional: no symptoms reported, see HPI; No chills, No diaphoresis, No fever EENTM: No Symptoms Reported, See HPI Respiratory: No Symptoms Reported, See HPI, Cough (chronic, no change) Cardiovascular: See HPI, Chest Pain; Denies Edema, Denies Palpitations, Denies Syncope Gastrointestinal: No Symptoms Reported Genitourinary: No Symptoms Reported, See HPI All Other Systems Reviewed Negative Unless Noted: Yes Past Ndmbvxw-Itkxcj-Luefqi Hx Past Med/Social Hx: Reviewed Nursing Past Med/Soc Hx Patient Social History Alcohol Use: Denies Use Recreational Drug Use: Yes Drug of Choice: marijuana Smoking Status: Current Everyday Smoker Type Used: Cigarettes 2nd Hand Smoke Exposure: Yes Recent Foreign Travel: No Contact w/Someone Who Travel: No Recent Infectious Disease Expo: No Recent Hopitalizations: No Physical Abuse: No Sexual Abuse: No Mistreated: No Fear: No Immunizations Up To Date Tetanus Booster (TDap): More than 5yrs Date of Pneumonia Vaccine: December 28, 2012 Date of Influenza Vaccine: Apr 18, 2011 Seasonal Allergies Seasonal Allergies: Yes Past Medical History Surgeries: Yes (ovarian cyst, BILAT KNEE SCOPES, BILAT SHOULDER SCOPES, BILAT CTR) Gallbladder, 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, Orthopedic, 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 Respiratory: Yes Asthma Currently Using CPAP: No Currently Using BIPAP: No Cardiac: Yes (HX PERICARDIAL EFFUSION, HEART CATH-CLEAR) Rheumatic Fever Neurological: Yes (PT STATES SHE ALWAYS HAS NUMBNESS AND TINGLING ALL OVER HER BODY OFF AND ON) Headaches /Migraines, Neuropathy 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 Disorders: Yes Female 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 Disorders: Menstrual Problems, 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, Ovarian Cyst 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, 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 Sexually Transmitted Disease: No ( ) HIV/AIDS: No Genitourinary: No Gastrointestinal: Yes Chronic Constipation, Hemorrhoids Musculoskeletal: Yes (CHRONIC PAIN) Rheumatoid Arthritis, Chronic Back Pain Endocrine: Yes (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) Hypothyroidsim HEENT: Yes (GLASSES/CONTACTS) Loss of Vision: Denies Hearing Impairment: Denies Cancer: Yes (precancerous cells of ain) Psychosocial: Yes Sleep Difficulties, Anxiety, Depression Integumentary: No Blood Disorders: No Adverse Reaction/Blood Tranf: No (N/A) Family Medical History Asthma son CANC 19 MOTHER (CANCER OF GALLBLADDER AND UTERUS) Diabetes mellitus G8 SISTER FH: cancer Hypertension 19 FATHER Psychosocial problem G8 SISTER (ANXIETY) Thyroid disease 19 MOTHER (HYPERTHYROID) Physical Exam Vital Signs Vital Signs - First Documented 04/19/20 11:23 Temp 36.9 Pulse 72 Resp 18 B/P (MAP) 184/109 (134) Pulse Ox 97 O2 Delivery Room Air Capillary Refill : Less Than 3 Seconds Height, Weight, BMI Height: 5'8.00" Weight: 260lbs. 4.0oz. 118.435209eb; 31.00 BMI Method:Stated General Appearance: No Apparent Distress, WD/WN, Obese HEENT: PERRL/EOMI, TMs Normal, Normal ENT Inspection, Pharynx Normal Neck: Full Range of Motion, Normal Inspection, Non Tender, Supple Respiratory: Chest Non Tender, Lungs Clear, Normal Breath Sounds Cardiovascular: Regular Rate, Rhythm, No Edema, No Murmur, Normal Peripheral Pulses Gastrointestinal: Normal Bowel Sounds, Non Tender, Soft Extremity: Normal Capillary Refill, Normal Inspection, Normal Range of Motion Neurologic/Psychiatric: Alert, Oriented x3, No Motor/Sensory Deficits, Normal Mood/Affect, messaging architect II-XII Norm as Tested Skin: Normal Color, Warm/Dry Other comments NIH 0 Progress/Results/Core Measures Results/Orders Lab Results Laboratory Tests Test 04/19/20 11:20 Range/Units White Blood Count 8.8 4.3-11.0 10^3/uL Red Blood Count 4.86 4.35-5.85 10^6/uL Hemoglobin 15.7 11.5-16.0 G/DL Hematocrit 46 35-52 % Mean Corpuscular Volume 96 80-99 FL Mean Corpuscular Hemoglobin 32 25-34 PG Mean Corpuscular Hemoglobin Concent 34 32-36 G/DL Red Cell Distribution Width 14.3 10.0-14.5 % Platelet Count 252 130-400 10^3/uL Mean Platelet Volume 10.1 7.4-10.4 FL Neutrophils (%) (Auto) 59 42-75 % Lymphocytes (%) (Auto) 30 12-44 % Monocytes (%) (Auto) 8 0-12 % Eosinophils (%) (Auto) 2 0-10 % Basophils (%) (Auto) 1 0-10 % Neutrophils # (Auto) 5.2 1.8-7.8 X 10^3 Lymphocytes # (Auto) 2.7 1.0-4.0 X 10^3 Monocytes # (Auto) 0.7 0.0-1.0 X 10^3 Eosinophils # (Auto) 0.2 0.0-0.3 10^3/uL Basophils # (Auto) 0.0 0.0-0.1 10^3/uL Prothrombin Time 13.5 12.2-14.7 SEC INR Comment 1.0 0.8-1.4 Activated Partial Thromboplast Time 33 24-35 SEC Sodium Level 139 135-145 MMOL/L Potassium Level 3.7 3.6-5.0 MMOL/L Chloride Level 103 98-107 MMOL/L Carbon Dioxide Level 24 21-32 MMOL/L Anion Gap 12 5-14 MMOL/L Blood Urea Nitrogen 14 7-18 MG/DL Creatinine 1.15 0.60-1.30 MG/DL Estimat Glomerular Filtration Rate 54 BUN/Creatinine Ratio 12 Glucose Level 110 H 70-105 MG/DL Calcium Level 9.9 8.5-10.1 MG/DL Corrected Calcium 8.5-10.1 MG/DL Magnesium Level 2.3 1.6-2.4 MG/DL Total Bilirubin 0.5 0.1-1.0 MG/DL Aspartate Amino Transf (AST/SGOT) 27 5-34 U/L Alanine Aminotransferase (ALT/SGPT) 28 0-55 U/L Alkaline Phosphatase 78 40-136 U/L Myoglobin 77.3 10.0-92.0 NG/ML Troponin I < 0.028 <0.028 NG/ML Total Protein 8.1 6.4-8.2 GM/DL Albumin 4.8 H 3.2-4.5 GM/DL My Orders Orders - JOLENE MANZO Cbc With Automated Diff (04/19/20 11:23) Magnesium (04/19/20 11:23) Chest 1 View, Ap/Pa Only (04/19/20 11:23) Ekg Tracing (04/19/20 11:23) Comprehensive Metabolic Panel (04/19/20 11:23) Myoglobin Serum (04/19/20 11:23) Protime With Inr (04/19/20 11:23) Partial Thromboplastin Time (04/19/20 11:23) O2 (04/19/20 11:23) Monitor-Rhythm Ecg Trace Only (04/19/20 11:23) Ed Iv/Invasive Line Start (04/19/20 11:23) Troponin I (04/19/20 11:23) Aspirin Chewable Tablet (Baby Aspirin Ch (04/19/20 11:30) Ed Iv/Invasive Line Start (04/19/20 11:23) Ns Iv 1000 Ml (Sodium Chloride 0.9%) (04/19/20 11:23) Ct Head Wo (04/19/20 11:23) Hydralazine Injection (Apresoline Inject (04/19/20 11:30) Tramadol Tablet (Ultram Tablet) (04/19/20 13:00) Mri Brain & Pituitary W/Wo Con (04/19/20 12:52) Gadobutrol Inj (Radiology) (Gadavist Inj (04/19/20 14:15) Prolactin (04/19/20 17:21) Ct Head Wo (04/19/20 17:21) Medications Given in ED Current Medications Medications Dose Ordered Sig/Narinder Route Start Time Stop Time Status Last Admin Dose Admin Aspirin 324 mg ONCE ONCE PO 04/19/20 11:30 04/19/20 11:31 DC 04/19/20 11:37 324 MG Gadobutrol 15 mmol ONCE ONCE IV 04/19/20 14:15 04/19/20 14:16 DC 04/19/20 14:18 12 MMOL Tramadol HCl 50 mg ONCE ONCE PO 04/19/20 13:00 04/19/20 13:01 DC 04/19/20 13:21 50 MG Vital Signs/I&O 04/19/20 04/19/20 04/19/20 11:23 11:23 18:19 Temp 36.9 Pulse 72 90 Resp 18 18 B/P (MAP) 184/109 (134) 126/70 Pulse Ox 97 99 O2 Delivery Room Air Blood Pressure Mean: 134 Progress Progress Note : Time: 11:20 Progress Note Patient seen and evaluated, will obtain labs, EKG, chest x-ray, CT head, normal saline 1 L per IV. And hydralazine 5 mg IV for hypertension. ASA 324 mg orally. 1140 after returning from Radiology B/P 140/90, will hold Hydralazine. [address] Dr. Palacio, concern over Pituitary glad. Recommended MRI. Discussed this with patient. No further chest pain. B/P has been labile but has not required medication. Discussed vision and patient denies changes, she reports over last 2 weeks she has been wearing glasses more often and feels her acuity is less sharp. She has a history of occasional floaters and these have been unchanged. 1320 Patient to MRI, complaining of headache but no visual changes. Will give Tramadol 50 mg orally. 1410 MRI has not been read by radiology, notified x-ray to assure it has been sent for reading. 1500 Patient denies any complaints, taking sprite. Headache improved. [address] Palacio about MRI, concern over pituitary apoplexy. Will consult with neurosurgery. [address] Tomlin at [place], reviewed CT and MRI findings. They do not routinely care for Pituitary apoplexy and recommended speaking to [facility]. [address] Barnard at [facility] Neurosurgery. Recommended prolactin level and repeat CT to determine if increased hemorrhage or stable. If not change in CT, can be discharged to home but follow up with Dr. Ivan Howell. If increased, will need transfer to [facility]. Spoke to patient, agreeable with this plan. [address] findings from earlier today. Discussed with patient, agreeable to outpatient follow up with neurosurgery at [facility], copies of diagnostic study reports given to patient. Discharge instructions and return precautions reviewed with patient QUESTIONS answered. Initial ECG Impression Date: Apr 19, 2020 Initial ECG Impression Time: 11:14 Initial ECG Rate: 72 Initial ECG Rhythm: Normal Sinus Initial ECG Intervals: Normal Initial ECG Intervals [place] 162; QRSD 103; QT 402; QTc 440 [place] P 34, QRS -11, T 54 Initial ECG Impression: Normal Initial ECG Comparisson: Unchanged Comment Reviewed with Dr. Tapia, agreed with interpretation. Diagnostic Imaging Diagonstic Imaging: CT Comments [facility], [place] NAME: ANUJA CULP [facility] REC#: [id number] PT STATUS: REG ER : 1985 PHYSICIAN: JOLENE MANZO ADMIT DATE: 04/19/20/ER Signed Date of Exam:04/19/20 CT HEAD WO EXAMINATION: CT head without contrast. TECHNIQUE: Multiple contiguous axial images were obtained through the brain without the use of intravenous contrast. All CT scans use one or more of the following dose optimizing techniques: automated exposure control, MA and/or KvP adjustment based on a patient size and exam type, or iterative reconstruction. HISTORY: Headache. Nausea. Dizziness. Left-sided tingling. COMPARISON: 05/26/2019. FINDINGS: No large acute territorial ischemia, mass, or hemorrhage. No midline shift or mass effect. The ventricles, cortical sulci, and basilar cisterns are patent and unremarkable. A focus of hyperattenuation is seen in the pituitary gland measuring 0.5 cm. No evidence of sellar expansion. No obvious mass effect is seen on the adjacent structures. The orbits are normal. Paranasal sinuses are normal. Mastoid air cells are clear. No soft tissue abnormality is seen. No osseous lesions or fractures are seen. IMPRESSION: 1. No large acute territorial ischemia, mass, or hemorrhage. 2. Focus of hyperattenuation in the anterior pituitary gland measuring 0.5 cm. This is nonspecific and may represent a pituitary microadenoma versus pituitary hemorrhage. Recommend further evaluation with brain MRI with pituitary protocol. Findings were called to the emergency department at 11:55 a.m. on 04/19/[address] Marily Palacio. Dictated by: Dictated on workstation # [id number] Dict: 04/19/20 1147 Trans: 04/19/20 1201 [id number] Interpreted by: MARILY PALACIO DO Electronically signed by: MARILY PALACIO DO 04/19/20 1201 Diagonstic Imaging: Xray, CT Plain Films/CT/US/NM/MRI: chest Comments NAME: ANUJA CULP [facility] REC#: [id number] PT STATUS: REG ER : 1985 PHYSICIAN: JOLENE MANZO ADMIT DATE: 04/19/20/ER Draft Date of Exam:04/19/20 CHEST 1 VIEW, AP/PA ONLY INDICATION: Chest pain. TECHNIQUE: A frontal chest was obtained at 12:08 PM and is compared to 03/03/2020. FINDINGS: The heart and mediastinal silhouette are normal in appearance. The lungs are clear. There is no pneumothorax or pleural fluid. IMPRESSION: Negative chest. Dictated on workstation # [id number] Dict: 04/19/20 1222 Trans: 04/19/20 1224 [id number] Interpreted by: TRICIA SANTOS MD Electronically signed by: Reviewed: Reviewed by Me Diagonstic Imaging: MRI Comments NAME: ANUJA CULP [facility] REC#: [id number] PT STATUS: REG ER : 1985 PHYSICIAN: JOLENE MANZO ADMIT DATE: 04/19/20/ER Signed Date of Exam:04/19/20 MRI BRAIN & PITUITARY W/WO CON TECHNIQUE: Multiplanar multisequence MRI of the brain is performed with and without contrast. Additional pituitary sequences are performed. REASON FOR EXAM: Abnormality seen on head CT. Evaluate for pituitary lesion. Headache. COMPARISON: CT head on 04/19/2020. FINDINGS: No acute ischemia. The ventricles, cortical sulci, and basilar cisterns are symmetric and unremarkable. The major intracranial flow-voids are preserved. A small focus of intrinsic T1 shortening is visualized within the anterior left pituitary gland. The pituitary is upper limits of normal in size measuring 1.2 cm craniocaudal. An area of delayed enhancement is seen within the anterior pituitary measuring 0.5 x 0.5 cm and 0.7 cm craniocaudal. The focus of intrinsic T1 shortening is noted within this area of delayed enhancement. No evidence of mass effect on the optic chiasm or optic nerves. No invasion into the cavernous sinuses. The bilateral internal carotid arteries demonstrate preserved flow voids. The brainstem and posterior fossa are unremarkable. The paranasal sinuses and mastoid air cells demonstrate normal signal characteristics. The globes and orbits are symmetric and unremarkable. The scalp and calvarium have a normal appearance. Impression: 1. 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 An area of delayed enhancement is seen within the pituitary gland which may represent pituitary microadenoma versus an area of necrosis. No mass effect is seen on the optic chiasm or optic nerves. No evidence of invasion into the cavernous sinuses. Recommend neurosurgical consultation and follow-up MRI brain with pituitary protocol. 2. No acute ischemia. Findings were discussed with Jolene Manzo at 4:15 PM on 04/19/[address] Marily Palacio. Dictated by: Dictated on workstation # [id number] Dict: 04/19/20 1609 Trans: 04/19/[address] [facility] [id number] Interpreted by: MARILY PALACIO DO Electronically signed by: MARILY PALACIO DO 04/19/20 1629 Reviewed: Reviewed by Me, Discussed w/Radiologist Diagonstic Imaging: CT Plain Films/CT/US/NM/MRI: head Comments NAME: ANUJA CULP [facility] REC#: [id number] PT STATUS: REG ER : 1985 PHYSICIAN: JOLENE MANZO [facility] ADMIT DATE: 04/19/20/ER Draft Date of Exam:04/19/20 CT HEAD WO PROCEDURE: CT head without contrast. TECHNIQUE: Multiple contiguous axial images were obtained through the brain without the use of intravenous contrast. Auto Exposure Controls were utilized during the CT exam to meet ALARA standards for radiation dose reduction. INDICATION: Pituitary hemorrhage. FINDINGS: Fullness of the sella is unchanged from prior. No evidence for parenchymal or subarachnoid blood. There is no intraventricular hemorrhage. There is no hydrocephalus, edema, or mass effect. No evidence for elevation of the intracranial pressures. Orbits, sinuses, and calvarium nonacute. IMPRESSION: Stable head CT. No subarachnoid or intraventricular blood. Hyperdense fullness of the sella unchanged. No hydrocephalus, edema, or acute finding apparent at this exam. Dictated on workstation # [id number] Dict: 04/19/20 1739 Trans: 04/19/20 1748 [id number] Interpreted by: SHABBIR TIAN Electronically signed by: Reviewed: Reviewed by Me Departure Impression Primary Impression: Chest pain Qualified Codes: R07.9 - Chest pain, unspecified Additional Impression: Hypertension Qualified Codes: I10 - Essential (primary) hypertension Disposition: HOME, SELF-CARE Condition: Improved Departure-Patient Inst. Decision time for Depature: 17:55 Referrals: RITA KIMBROUGH (PCP/Family) Primary Care Physician Patient Instructions: Pituitary Adenoma, Chest Pain That Is Not Caused by the Heart (DC) Add. Discharge Instructions: Follow up with [facility] Neurosurgery: Dr. Ivan Howell, call [phone], call tomorrow for appt. Follow up with Dr. Green. See Germania Kimbrough APRN for follow up. Return to Emergency Dept for vision changes, chest pain, or new, urgent health care problems. All discharge instructions reviewed with patient and/or family. Voiced understanding. Copy Copies To 1: HONG GREEN MD, AMY ARNP Apr 19, 2020 11:43
[2020-04-19 11:45] LABS: ALKALINE PHOSPHATASE 78 U/L (40-136); CREATININE SERUM 1.15 MG/DL (0.60-1.30); GFR ESTIMATED 54
[2020-04-19 11:46] LABS: BUN/CREATININE RATIO 12
[2020-04-19 11:48] LABS: ALANINE AMINOTRANSFERASE 28 U/L (0-55); MAGNESIUM 2.3 MG/DL (1.6-2.4)
--- NOTE | 2020-04-19 12:02 | Diagnostic Imaging Report ---
EXAMINATION: CT head without contrast. TECHNIQUE: Multiple contiguous axial images were obtained through the brain without the use of intravenous contrast. All CT scans use one or more of the following dose optimizing techniques: automated exposure control, MA and/or KvP adjustment based on a patient size and exam type, or iterative reconstruction. HISTORY: Headache. Nausea. Dizziness. Left-sided tingling. COMPARISON: 05/26/2019. FINDINGS: No large acute territorial ischemia, mass, or hemorrhage. No midline shift or mass effect. The ventricles, cortical sulci, and basilar cisterns are patent and unremarkable. A focus of hyperattenuation is seen in the pituitary gland measuring 0.5 cm. No evidence of sellar expansion. No obvious mass effect is seen on the adjacent structures. The orbits are normal. Paranasal sinuses are normal. Mastoid air cells are clear. No soft tissue abnormality is seen. No osseous lesions or fractures are seen. IMPRESSION: 1. No large acute territorial ischemia, mass, or hemorrhage. 2. Focus of hyperattenuation in the anterior pituitary gland measuring 0.5 cm. This is nonspecific and may represent a pituitary microadenoma versus pituitary hemorrhage. Recommend further evaluation with brain MRI with pituitary protocol. Findings were called to the emergency department at 11:55 a.m. on 04/19/[address] Albert Palacio. Dictated by: Dictated on workstation # [id number]
--- NOTE | 2020-04-19 12:24 | Diagnostic Imaging Report ---
INDICATION: Chest pain. TECHNIQUE: A frontal chest was obtained at 12:08 PM and is compared to 03/03/2020. FINDINGS: The heart and mediastinal silhouette are normal in appearance. The lungs are clear. There is no pneumothorax or pleural fluid. IMPRESSION: Negative chest. Dictated by: Dictated on workstation # [id number]
[2020-04-19] MEDS ORDERED: GADOBUTROL 15 MMOL/15 ML (GADAVIST) VIAL IV ONE (14:15)
--- NOTE | 2020-04-19 16:30 | Diagnostic Imaging Report ---
TECHNIQUE: Multiplanar multisequence MRI of the brain is performed with and without contrast. Additional pituitary sequences are performed. REASON FOR EXAM: Abnormality seen on head CT. Evaluate for pituitary lesion. Headache. COMPARISON: CT head on 04/19/2020. FINDINGS: No acute ischemia. The ventricles, cortical sulci, and basilar cisterns are symmetric and unremarkable. The major intracranial flow-voids are preserved. A small focus of intrinsic T1 shortening is visualized within the anterior left pituitary gland. The pituitary is upper limits of normal in size measuring 1.2 cm craniocaudal. An area of delayed enhancement is seen within the anterior pituitary measuring 0.5 x 0.5 cm and 0.7 cm craniocaudal. The focus of intrinsic T1 shortening is noted within this area of delayed enhancement. No evidence of mass effect on the optic chiasm or optic nerves. No invasion into the cavernous sinuses. The bilateral internal carotid arteries demonstrate preserved flow voids. The brainstem and posterior fossa are unremarkable. The paranasal sinuses and mastoid air cells demonstrate normal signal characteristics. The globes and orbits are symmetric and unremarkable. The scalp and calvarium have a normal appearance. Impression: 1. 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 An area of delayed enhancement is seen within the pituitary gland which may represent pituitary microadenoma versus an area of necrosis. No mass effect is seen on the optic chiasm or optic nerves. No evidence of invasion into the cavernous sinuses. Recommend neurosurgical consultation and follow-up MRI brain with pituitary protocol. 2. No acute ischemia. Findings were discussed with Jolene Parks at 4:15 PM on 04/19/[address] Albert Palacio. Dictated by: Dictated on workstation # [id number]
--- NOTE | 2020-04-19 17:50 | Diagnostic Imaging Report ---
PROCEDURE: CT head without contrast. TECHNIQUE: Multiple contiguous axial images were obtained through the brain without the use of intravenous contrast. Auto Exposure Controls were utilized during the CT exam to meet ALARA standards for radiation dose reduction. INDICATION: Pituitary hemorrhage. FINDINGS: Fullness of the sella is unchanged from prior. No evidence for parenchymal or subarachnoid blood. There is no intraventricular hemorrhage. There is no hydrocephalus, edema, or mass effect. No evidence for elevation of the intracranial pressures. Orbits, sinuses, and calvarium nonacute. IMPRESSION: Stable head CT. No subarachnoid or intraventricular blood. Hyperdense fullness of the sella unchanged. No hydrocephalus, edema, or acute finding apparent at this exam. Dictated by: Dictated on workstation # [id number]
[2020-04-19 18:19] VITALS: BP 126/70
[2020-04-20] MEDS ORDERED: HYDR-3870 PO (12:39)
== END 2020-04-19 18:19 | disposition home or self-care (01) ==
LOC: EDUNIT# 11:09 → ER 11:11
DX: R07.9 Chest pain, unspecified (principal); I10 Essential (primary) hypertension; E03.9 Hypothyroidism, unspecified; F41.9 Anxiety disorder, unspecified; F32.9 Major depressive disorder, single episode, unspecified; F17.210 Nicotine dependence, cigarettes, uncomplicated; Z85.828 Personal history of other malignant neoplasm of skin; Z79.890 Hormone replacement therapy; Z82.49 Family history of ischemic heart disease and other diseases of the circulatory system; Z80.0 Family history of malignant neoplasm of digestive organs; Z80.49 Family history of malignant neoplasm of other genital organs; Z88.0 Allergy status to penicillin; Z88.1 Allergy status to other antibiotic agents; Z88.8 Allergy status to other drugs, medicaments and biological substances
CPT/HCPCS: 36415; 70450; 70553; 71045; 80053; 83735; 83874; 84146; 84484; 85025; 85610; 85730; 93005; 93041

== ENCOUNTER 2020-04-26 19:25 | Emergency (ER) | payer MEDICAID ==
[~2020-04-26] VITALS: Ht 172.7 cm; Wt 122.5 kg
[~2020-04-26 19:25] MED LIST changes: +HYDR-3870 PO; +LEVO25TA5 PO
--- NOTE | 2020-04-26 20:10 | ED Headache ---
General Stated Complaint: HEADACHE;DIZZINESS;BRAIN TUMOR Source: patient, old records History of Present Illness Date Seen by Provider: Apr 26, 2020 Time Seen by Provider: 19:53 Initial Comments C/O SEVERE HEADACHE FOR OVER A WEEK PAIN IS IN LEFT POSTERIOR/PARIETAL-OCCIPITAL AREA PAIN IS CONSTANT, AND GETS WORSE THROUGHOUT THE DAY--HAS BEEN WORSE SINCE LAST NIGHT NOTHING WORSENS OR IMPROVES PAIN TOOK TYLENOL X 1 DOSE EARLIER TODAY--NO IMPROVEMENT C/O NAUSEA, NO VOMITING. 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 HAS FOLLOW UP TELEVISIT SCHEDULED FOR 05/05/20 HAS NOT ATTEMPTED TO CONTACT HER PCP FOR THIS PROBLEM AT ANY TIME, OR MAKE AN APPOINTMENT FOR FOLLOW UP CARE HAS BEEN PRESCRIBED PERCOCET FOR THIS, BUT HAS NOT BEEN TAKING--STATES 'THEY DON'T WORK" --THEN STATES "MADE IT WORSE" STATES SHE SMOKES MARIJUANA "FOR THE PAIN" ALSO SMOKES 1 1/2 PPD OF REGULAR CIGARETTES PT HAS FREQUENT/CHRONIC HEADACHES, BUT STATES THEY ARE NOT LIKE THIS HEADACHE--THEY ARE USUALLY TENSION-TYPE HEADACHES AND ARE IN DIFFERENT AREAS HAS CHRONIC NECK AND BACK PAIN AND GENERALIZED PAIN PCP: [facility] Allergies and Home Medications Allergies Coded Allergies: Bacitracin Zinc (Unverified Allergy, Intermediate, HIVES, RESP PROBLMEMS, 07/09/17) Penicillins (Unverified Allergy, Intermediate, RASH,, 07/09/17) bacitracin (Unverified Allergy, Intermediate, HIVES, RESP PROBLMEMS, 07/09/17) gramicidin D (Unverified Allergy, Intermediate, HIVES, RESP PROBLMEMS, 07/09/17) methylprednisolone sod succ (Unverified Allergy, Intermediate, RESP DIFFICULTY, 07/09/17) neomycin sulfate (Unverified Allergy, Intermediate, HIVES, RESP PROBLMEMS, 07/09/17) polymyxin B (Unverified Allergy, Intermediate, HIVES, RESP PROBLMEMS, 06/19 10/04) polymyxin B sulfate (Unverified Allergy, Intermediate, HIVES, RESP PROBLMEMS, 07/09/17) sulfamethoxazole (Verified Allergy, Unknown, Hives, 04/25/20) trimethoprim (Verified Allergy, Unknown, Hives, 04/25/20) Metronidazole HCl (Unverified Adverse Reaction, Mild, N/V, 07/09/17) metronidazole (Unverified Adverse Reaction, Mild, N/V, 07/09/17) Home Medications Butalb/Acetaminophen/Caffeine 1 Each Tablet, 1-2 EACH PO Q6 Prescribed by: ALFRED GARCIA on 04/26/202121 Levothyroxine Sodium 125 Mcg Tablet, 250 MCG PO DAILY, (Reported) Levothyroxine Sodium 25 Mcg Tablet, 25 MG PO DAILY, (Reported) Nitrofurantoin Monohyd/M-Cryst 100 Mg Capsule, 1 TAB PO BID Prescribed by: ALFRED GARCIA on 04/26/202124 Ondansetron 8 Mg Tab.rapdis, 8 MG PO Q6H Prescribed by: ALFRED GARCIA on 04/26/202121 Scopolamine 1 Each Patch.td72, 1 EACH TD Q72H Prescribed by: ALFRED GARCIA on 04/26/202121 Patient Home Medication List Home Medication List Reviewed: Yes Review of Systems Review of Systems Constitutional: see HPI; No chills, No diaphoresis; dizziness; No fever, No malaise, No weakness Eyes: See HPI, Blurred Vision; Denies Photophobia; Vision Changes Ears, Nose, Mouth, Throat: no symptoms reported Respiratory: no symptoms reported Cardiovascular: no symptoms reported Gastrointestinal: see HPI; No abdominal pain, No loss of appetite; nausea; No vomiting Genitourinary: no symptoms reported : No (HAS HAD HYSTERECTOMY) Musculoskeletal: no symptoms reported; No back pain, No neck pain Skin: no symptoms reported; No rash Psychiatric/Neurological: See HPI, Headache; Denies Numbness, Denies Paresthesia, Denies Seizure, Denies Tingling, Denies Weakness Past Bzxhqku-Xrbztg-Eabwcl Hx Past Med/Social Hx: Reviewed and Corrections made Patient Social History Alcohol Use: Occasionally Uses Recreational Drug Use: Yes (THC) Drug of Choice: marijuana Smoking Status: Current Everyday Smoker (1 1/2 PPD) Type Used: Cigarettes 2nd Hand Smoke Exposure: Yes Recent Hopitalizations: No Immunizations Up To Date Tetanus Booster (TDap): More than 5yrs Date of Pneumonia Vaccine: December 28, 2012 Date of Influenza Vaccine: Apr 18, 2011 Seasonal Allergies Seasonal Allergies: Yes Past Medical History Surgeries: Yes (HYST/LSO;OVARIAN CYSTS;BILAT KNEE SCOPES/SHOULDER SCOPES/CTR;VULVAR SURG) Gallbladder, 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, Orthopedic, 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 Respiratory: Yes Asthma Currently Using CPAP: No Currently Using BIPAP: No Cardiac: Yes (HX PERICARDIAL EFFUSION, HEART CATH-CLEAR) Rheumatic Fever Neurological: Yes (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) Headaches /Migraines, Neuropathy 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 Disorders: Yes Female 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 Disorders: Menstrual Problems, 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, 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, 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 Sexually Transmitted Disease: No ( ) HIV/AIDS: No Genitourinary: No Gastrointestinal: Yes Chronic Constipation, Hemorrhoids Musculoskeletal: Yes (CHRONIC PAIN) Rheumatoid Arthritis, Chronic Back Pain Endocrine: Yes (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) Hypothyroidsim HEENT: Yes (GLASSES/CONTACTS) Loss of Vision: Denies Hearing Impairment: Denies Cancer: Yes (precancerous cells of ain) Psychosocial: Yes Sleep Difficulties, Anxiety, Depression Integumentary: No Blood Disorders: No Adverse Reaction/Blood Tranf: No (N/A) Family Medical History Asthma son CANC 19 MOTHER (CANCER OF GALLBLADDER AND UTERUS) Diabetes mellitus G8 SISTER FH: cancer Hypertension 19 FATHER Psychosocial problem G8 SISTER (ANXIETY) Thyroid disease 19 MOTHER (HYPERTHYROID) Physical Exam Vital Signs Vital Signs - First Documented 04/26/20 19:53 Pulse 78 Resp 16 B/P (MAP) 141/106 (118) Pulse Ox 96 O2 Delivery Room Air Capillary Refill : Height, Weight, BMI Height: 5'8.00" Weight: 260lbs. 4.0oz. [id number]; 42.51 BMI Method:Stated General Appearance: WD/WN, no apparent distress, obese, other (KEEPS EYES CLOSED) HEENT: PERRL/EOMI, normal ENT inspection, TMs normal, pharynx normal Neck: non-tender, full range of motion, supple, normal inspection Cardiovascular: regular rate, rhythm, no murmur Respiratory: normal breath sounds, no respiratory distress Gastrointestinal: soft Back: normal inspection Extremities: normal inspection, no pedal edema, normal capillary refill Psychiatric: alert, oriented x 3 Crainal Nerves: normal hearing, normal speech, PERRL Coordination/Gait: normal gait Motor/Sensory: no motor deficit, no sensory deficit, no pronator drift Skin: normal color, warm/dry Progress/Results/Core Measures Results/Orders Lab Results Laboratory Tests Test 04/26/20 20:05 04/26/20 20:34 Range/Units White Blood Count 8.9 4.3-11.0 10^3/uL Red Blood Count 4.86 4.35-5.85 10^6/uL Hemoglobin 15.7 11.5-16.0 G/DL Hematocrit 46 35-52 % Mean Corpuscular Volume 95 80-99 FL Mean Corpuscular Hemoglobin 32 25-34 PG Mean Corpuscular Hemoglobin Concent 34 32-36 G/DL Red Cell Distribution Width 14.2 10.0-14.5 % Platelet Count 244 130-400 10^3/uL Mean Platelet Volume 10.1 7.4-10.4 FL Neutrophils (%) (Auto) 60 42-75 % Lymphocytes (%) (Auto) 31 12-44 % Monocytes (%) (Auto) 6 0-12 % Eosinophils (%) (Auto) 2 0-10 % Basophils (%) (Auto) 1 0-10 % Neutrophils # (Auto) 5.4 1.8-7.8 X 10^3 Lymphocytes # (Auto) 2.8 1.0-4.0 X 10^3 Monocytes # (Auto) 0.5 0.0-1.0 X 10^3 Eosinophils # (Auto) 0.2 0.0-0.3 10^3/uL Basophils # (Auto) 0.1 0.0-0.1 10^3/uL Erythrocyte Sedimentation Rate 6 0-20 MM/HR Prothrombin Time 12.4 12.2-14.7 SEC INR Comment 0.9 0.8-1.4 Activated Partial Thromboplast Time 33 24-35 SEC Sodium Level 140 135-145 MMOL/L Potassium Level 3.5 L 3.6-5.0 MMOL/L Chloride Level 107 98-107 MMOL/L Carbon Dioxide Level 21 21-32 MMOL/L Anion Gap 12 5-14 MMOL/L Blood Urea Nitrogen 13 7-18 MG/DL Creatinine 1.04 0.60-1.30 MG/DL Estimat Glomerular Filtration Rate > 60 BUN/Creatinine Ratio 13 Glucose Level 112 H 70-105 MG/DL Calcium Level 9.2 8.5-10.1 MG/DL Corrected Calcium 8.9 8.5-10.1 MG/DL Magnesium Level 2.5 H 1.6-2.4 MG/DL Total Bilirubin 0.2 0.1-1.0 MG/DL Aspartate Amino Transf (AST/SGOT) 30 5-34 U/L Alanine Aminotransferase (ALT/SGPT) 31 0-55 U/L Alkaline Phosphatase 71 40-136 U/L C-Reactive Protein High Sensitivity 0.05 0.00-0.50 MG/DL Total Protein 7.3 6.4-8.2 GM/DL Albumin 4.4 3.2-4.5 GM/DL Urine Color YELLOW Urine Clarity CLEAR Urine pH 7.0 5-9 Urine Specific [place] 1.020 1.016-1.022 Urine Protein NEGATIVE NEGATIVE Urine Glucose (UA) NEGATIVE NEGATIVE Urine Ketones NEGATIVE NEGATIVE Urine Nitrite NEGATIVE NEGATIVE Urine Bilirubin NEGATIVE NEGATIVE Urine Urobilinogen 0.2 < = 1.0 MG/DL Urine Leukocyte Esterase TRACE H NEGATIVE Urine RBC (Auto) NEGATIVE NEGATIVE Urine RBC 0-2 /HPF Urine WBC 5-10 H /HPF Urine Squamous Epithelial Cells 10-25 H /HPF Urine Crystals NONE /LPF Urine Bacteria FEW H /HPF Urine Casts NONE /LPF Urine Mucus NEGATIVE /LPF Urine Culture Indicated YES Urine Opiates Screen NEGATIVE NEGATIVE Urine Oxycodone Screen NEGATIVE NEGATIVE Urine Methadone Screen NEGATIVE NEGATIVE Urine Propoxyphene Screen NEGATIVE NEGATIVE Urine Barbiturates Screen NEGATIVE NEGATIVE Ur Tricyclic Antidepressants Screen NEGATIVE NEGATIVE Urine Phencyclidine Screen NEGATIVE NEGATIVE Urine Amphetamines Screen NEGATIVE NEGATIVE Urine Methamphetamines Screen NEGATIVE NEGATIVE Urine Benzodiazepines Screen NEGATIVE NEGATIVE Urine Cocaine Screen NEGATIVE NEGATIVE Urine Cannabinoids Screen POSITIVE H NEGATIVE My Orders Orders - ALFRED GARCIA DO Ed Iv/Invasive Line Start (04/26/20 20:02) Cbc With Automated Diff (04/26/20 20:02) Comprehensive Metabolic Panel (04/26/20 20:02) Hs C Reactive Protein (04/26/20 20:02) Erythrocyte Sedimentation Rate (04/26/20 20:02) Drug Screen Stat (Urine) (04/26/20 20:02) Magnesium (04/26/20 20:02) Protime With Inr (04/26/20 20:02) Partial Thromboplastin Time (04/26/20 20:02) Ua Culture If Indicated (04/26/20 20:02) Fentanyl Injection (Sublimaze Injection (04/26/20 20:15) Ct Head Wo (04/26/20 20:33) Urine Culture (04/26/20 20:34) Ondansetron Injection (Zofran Injectio (04/26/20 21:00) Fentanyl Injection (Sublimaze Injection (04/26/20 21:30) Scopolamine Patch (Transderm-Scop Patch) (04/26/20 21:30) Medications Given in ED Current Medications Medications Dose Ordered Sig/Narinder Route Start Time Stop Time Status Last Admin Dose Admin Ondansetron HCl 8 mg ONCE ONCE IVP 04/26/20 21:00 04/26/20 21:01 DC 04/26/20 21:13 8 MG Vital Signs/I&O 04/26/20 19:53 Pulse 78 Resp 16 B/P (MAP) 141/106 (118) Pulse Ox 96 O2 Delivery Room Air Diagnostic Imaging Comments CT HEAD--PER RADIOLOGIST REPORT AT 2108 FINDINGS: No intracranial hemorrhage, mass effect, hydrocephalus or extra-axial fluid collection. No CT evidence of a territorial infarction. Stable appearance of the sella which is poorly evaluated by CT. Osseous structures are intact. The visualized paranasal sinuses and mastoids are clear. IMPRESSION: 1. No acute intracranial CT finding. 2. Stable appearance of the sella which is poorly characterized by CT. This could be further evaluated with MRI, if clinically warranted. Reviewed: Reviewed by Me Departure Impression Primary Impression: Headache Additional Impressions: RECENT DX OF PITUITARY MICROADENOMA WITH APOPEXY UTI Marijuana use Disposition: 01 HOME, SELF-CARE Condition: Stable Departure-Patient Inst. Referrals: RITA KIMBROUGH (PCP/Family) Primary Care Physician Patient Instructions: Headache, Adult (DC), Pituitary Adenoma, Urinary Tract Infection, Adult (DC) Add. Discharge Instructions: CONTINUE YOUR CURRENT MEDICATIONS PRESCRIBED FOLLOW UP WITH YOUR DR THIS WEEK FOR FURTHER CARE Scripts Nitrofurantoin Monohyd/M-Cryst (Macrobid 100 mg Capsule) 100 Mg Capsule 1 TAB PO BID, #20 CAP Prov: ALFRED GARCIA DO 04/26/20 Scopolamine (Transderm-Scop) 1 Each Patch.td72 1 EACH TD Q72H, #3 PATCH Prov: ALFRED GARCIA DO 04/26/20 Ondansetron (Ondansetron Odt) 8 Mg Tab.rapdis 8 MG PO Q6H, #10 TAB Prov: ALFRED GARCIA DO 04/26/20 Butalb/Acetaminophen/Caffeine (Esgic 50-325-40 mg Tablet) 1 Each Tablet 1-2 EACH PO Q6, #15 TAB Prov: ALFRED GARCIA DO 04/26/20 ALFRED GARCIA DO Apr 26, 2020 20:10
[2020-04-26 20:13] LABS: BASOPHILS # (AUTO) 0.1 10^3/uL (0.0-0.1); BASOPHILS % (AUTO) 1 % (0-10); EOSINOPHILS # (AUTO) 0.2 10^3/uL (0.0-0.3); EOSINOPHILS % (AUTO) 2 % (0-10); HEMATOCRIT 46 % (35-52); HEMOGLOBIN 15.7 G/DL (11.5-16.0); LYMPHOCYTES # (AUTO) 2.8 X 10^3 (1.0-4.0); LYMPHOCYTES % (AUTO) 31 % (12-44); MEAN CORPUSCULAR HEMOGLOBIN 32 PG (25-34); MEAN CORPUSCULAR HGB CONC 34 G/DL (32-36); MEAN CORPUSCULAR VOLUME 95 FL (80-99); MEAN PLATELET VOLUME 10.1 FL (7.4-10.4); MONOCYTES # (AUTO) 0.5 X 10^3 (0.0-1.0); MONOCYTES % (AUTO) 6 % (0-12); NEUTROPHILS # (AUTO) 5.4 X 10^3 (1.8-7.8); NEUTROPHILS % (AUTO) 60 % (42-75); PLATELET COUNT 244 10^3/uL (130-400); WHITE BLOOD COUNT 8.9 10^3/uL (4.3-11.0)
[2020-04-26] MEDS ORDERED: fentaNYL INJECTION 100 MCG/2 ML AMP IVP STA (20:15)
[2020-04-26 20:28] LABS: INR 0.9 (0.8-1.4); PROTHROMBIN TIME PATIENT 12.4 SEC (12.2-14.7)
[2020-04-26 20:38] LABS: ALANINE AMINOTRANSFERASE 31 U/L (0-55); ALBUMIN 4.4 GM/DL (3.2-4.5); ALKALINE PHOSPHATASE 71 U/L (40-136); BILIRUBIN,TOTAL 0.2 MG/DL (0.1-1.0); BUN/CREATININE RATIO 13; CALCIUM 9.2 MG/DL (8.5-10.1); CARBON DIOXIDE 21 MMOL/L (21-32); CHLORIDE 107 MMOL/L (98-107); CREATININE SERUM 1.04 MG/DL (0.60-1.30); GFR ESTIMATED > 60; GLUCOSE 112 MG/DL (70-105); MAGNESIUM 2.5 MG/DL (1.6-2.4); POTASSIUM 3.5 MMOL/L (3.6-5.0); SODIUM 140 MMOL/L (135-145); TOTAL PROTEIN 7.3 GM/DL (6.4-8.2)
[2020-04-26 20:40] LABS: BILIRUBIN,URINE NEGATIVE (NEGATIVE); CLARITY,URINE CLEAR; COLOR,URINE YELLOW; GLUCOSE, URINE (UA) NEGATIVE (NEGATIVE); KETONES,URINE NEGATIVE (NEGATIVE); LEUKOCYTE ESTERASE ,URINE TRACE (NEGATIVE); NITRITE,URINE NEGATIVE (NEGATIVE); PROTEIN,URINE NEGATIVE (NEGATIVE)
[2020-04-26 20:47] LABS: RBC,URINE 0-2 /HPF
[2020-04-26 20:48] LABS: BACTERIA,URINE FEW /HPF
[2020-04-26 20:54] LABS: ERYTHROCYTE SEDIMENTATION RATE 6 MM/HR (0-20)
[2020-04-26 20:56] LABS: AMPHETAMINE SCREEN, URINE NEGATIVE (NEGATIVE); BARBITURATE SCREEN URINE NEGATIVE (NEGATIVE); BENZODIAZEPINES SCREEN URINE NEGATIVE (NEGATIVE); CANNABINOID SCREEN, URINE POSITIVE (NEGATIVE); COCAINE SCREEN URINE NEGATIVE (NEGATIVE); METHADONE STAT NEGATIVE (NEGATIVE); METHAMPHETAMINE SCREEN URINE S NEGATIVE (NEGATIVE); OPIATE SCREEN URINE NEGATIVE (NEGATIVE); OXYCODONE STAT NEGATIVE (NEGATIVE); PROPOXYPHENE STAT NEGATIVE (NEGATIVE); TRICYCLIC ANTIDEPRESSANTS SCRE NEGATIVE (NEGATIVE)
--- NOTE | 2020-04-26 20:56 | Diagnostic Imaging Report ---
PROCEDURE: CT head without contrast. TECHNIQUE: Multiple contiguous axial images were obtained through the brain without the use of intravenous contrast. Auto Exposure Controls were utilized during the CT exam to meet ALARA standards for radiation dose reduction. INDICATION: Dizziness. Blurred vision. Head pressure. History of pituitary adenoma. COMPARISON: CT head without contrast 04/20/2020. FINDINGS: No intracranial hemorrhage, mass effect, hydrocephalus or extra-axial fluid collection. No CT evidence of a territorial infarction. Stable appearance of the sella which is poorly evaluated by CT. Osseous structures are intact. The visualized paranasal sinuses and mastoids are clear. IMPRESSION: 1. No acute intracranial CT finding. 2. Stable appearance of the sella which is poorly characterized by CT. This could be further evaluated with MRI, if clinically warranted. Dictated by: Dictated on workstation # [id number]
[2020-04-26] MEDS ORDERED: ONDANSETRON 4 MG/2 ML (SDV) Z0FRAN IVP ONE (21:00)
[2020-04-26] MEDS ORDERED: SCOP1PAT11 TD (21:22)
[2020-04-26] MEDS ORDERED: ONDA8TAB13 PO (21:22)
[2020-04-26] MEDS ORDERED: BUTA-249 PO (21:22)
[2020-04-26] MEDS ORDERED: NITR-65 PO (21:25)
[2020-04-26] MEDS ORDERED: SCOPOLAMINE 1.5 MG (TRANSDERM-SCOP) PATCH TD ONE (21:30)
[2020-04-26] MEDS ORDERED: fentaNYL INJECTION 100 MCG/2 ML AMP IVP ONE (21:30)
[2020-04-26 21:54] VITALS: BP 138/92
== END 2020-04-26 21:54 | disposition home or self-care (01) ==
LOC: EDUNIT# 19:25 → ER 19:27
DX: R51 Headache (principal); E23.6 Other disorders of pituitary gland; N39.0 Urinary tract infection, site not specified; E03.9 Hypothyroidism, unspecified; F12.90 Cannabis use, unspecified, uncomplicated; F17.210 Nicotine dependence, cigarettes, uncomplicated; Z80.0 Family history of malignant neoplasm of digestive organs; Z80.49 Family history of malignant neoplasm of other genital organs; Z82.49 Family history of ischemic heart disease and other diseases of the circulatory system; Z85.828 Personal history of other malignant neoplasm of skin; Z95.9 Presence of cardiac and vascular implant and graft, unspecified; Z79.890 Hormone replacement therapy; Z88.2 Allergy status to sulfonamides; Z88.0 Allergy status to penicillin; Z88.1 Allergy status to other antibiotic agents; Z88.8 Allergy status to other drugs, medicaments and biological substances
CPT/HCPCS: 36415; 70450; 80053; 80306; 81000; 83735; 85025; 85610; 85652; 85730; 86141; 87088

== ENCOUNTER 2020-04-28 05:36 | Outpatient (RCR) | payer MEDICAID ==
[~2020-04-28] VITALS: Ht 172.7 cm; Wt 126.8 kg
[~2020-04-28 05:36] MED LIST changes: +BUTA-249 PO; +NITR-65 PO; +SCOP1PAT11 TD
== END 2020-04-28 10:01 | disposition home or self-care (01) ==
LOC: PREOP 05:36
PROVIDERS: ATTEND Surgery
DX: Z01.812 Encounter for preprocedural laboratory examination (principal); Z20.828 Contact with and (suspected) exposure to other viral communicable diseases
CPT/HCPCS: 87635

== ENCOUNTER 2020-05-01 08:01 | Day surgery (SDC) | payer MEDICAID ==
[~2020-05-01] VITALS: Ht 172.7 cm; Wt 126.8 kg
[2020-05-01] MEDS ORDERED: LACTATED RINGERS 1,000 ML IV ONE (08:04)
[2020-05-01] MEDS ORDERED: LACTATED RINGERS 1,000 ML IV STA (08:13)
[2020-05-01] MEDS ORDERED: HURRICAINE EXT TUBE (BENZOCAINE) XX PRN (08:15)
[2020-05-01 08:20] VITALS: BP 126/98
--- NOTE | 2020-05-01 08:22 | Progress Note-Pre Operative ---
Pre-Operative Progress Note H&P Reviewed The H&P was reviewed, patient examined and no changes noted. Time Seen by Provider: 08:20 Date H&P Reviewed: May 01, 2020 Time H&P Reviewed: 08:19 Pre-Operative Diagnosis: Tarry Stools, Gastritis, Hx of NIMESH AYALA DO May 01, 2020 08:22
[2020-05-01] MEDS ORDERED: PROPOFOL INJECTION 50 ML IV ONE (08:41)
[2020-05-01] MEDS ORDERED: MIDAZOLAM 2 MG/2 ML (VERSED) VIAL ONE (08:41)
[2020-05-01 09:00] VITALS: BP 141/71
--- NOTE | 2020-05-01 09:04 | Progress Note-Post Operative ---
Post-Operative Progess Note Surgeon (s)/Ice Cream Chef (s) Surgeon NIMESH CARRASCO DO Ice Cream Chef: Moni Fox, MSIII Pre-Operative Diagnosis Tarry Stools, Gastritis, Hx of AIN Post-Operative Diagnosis Gastritis with Bleed Gastric Ulcer Poor Prep Int and Ext Hemorrhoids Procedure & Operative Findings Date of Procedure 05/01/20 Procedure Performed/Findings EGD with bx Colonoscopy Anesthesia Type IV sedation by MOTION PICTURE NARRATOR Estimated Blood Loss Estimated blood loss (mL): scant Specimens/Packing Specimens Removed antral bx ulcer bx Body of stomach bx GE jxn bx NIMESH CARRASCO DO May 01, 2020 09:04
[2020-05-01 09:05] VITALS: BP 139/68
[2020-05-01] MEDS ORDERED: PANT40TA2 PO (09:05)
[2020-05-01] MEDS ORDERED: SUCR1TAB36 PO (09:05)
--- NOTE | 2020-05-01 09:06 | Endoscopy Discharge Instruct ---
Endo Procedure/Findings Findings 1.: Gastric Ulcer 2.: Internal Hemorrhoids Discharge Instructions - Activity: You might feel a little sleepy until tomorrow. This is due to the medicine you received to relax you. Until tomorrow, you should: NOT drive a car, operate machinery or power tools. NOT drink any alcoholic beverages. NOT make any important decisions or sign importortant papers. Do not return to work until tomorrow, unless otherwise instructed. Resume previous activities tomorrow. Diet: Start by taking liquids. If you tolerate liquids, advance to solid food. 1.: Colonoscopy in 1 year, EGD in 6-8 weeks Notify Physician - If you experience excessive bleeding, unusual abdominal pain, fever, or chest pain, contact your doctor immediately. NIMESH CARRASCO DO May 01, 2020 09:06
[2020-05-01 09:30] VITALS: BP 139/68
[2020-05-01 09:42] VITALS: BP 128/70
--- NOTE | 2020-05-01 12:39 | Anesthesia-General Post-Op ---
MAC Patient Condition Mental Status/LOC: Same as Preop Cardiovascular: Satisfactory Nausea/Vomiting: Absent Respiratory: Satisfactory Pain: Controlled Complications: Absent Post Op Complications Complications None Follow Up Care/Instructions Patient Instructions None needed. Anesthesiology Discharge Order Discharge Order Patient is doing well, no complaints, stable vital signs, no apparent adverse anesthesia problems. No complications reported per nursing. EVAN TAVAREZ CRNA May 01, 2020 12:39
--- NOTE | 2020-05-02 05:14 | OPERATIVE REPORT ---
DATE OF SERVICE: 05/01/2020 PREOPERATIVE DIAGNOSES: 1. Tarry stools. 2. Gastritis. 3. History of AIN. POSTOPERATIVE DIAGNOSES: 1. Gastritis with bleed. 2. Gastric ulcer. 3. Poor prep 4. Internal and external hemorrhoids. PROCEDURES: 1. EGD with biopsy. 2. Colonoscopy. SURGEON: Bin Cutler DO FOLD SKIVER: Moni Fox, MS3 ANESTHESIA: IV sedation by the NETWORK SYSTEMS ANALYST. SPECIMEN: Biopsy from the antrum, biopsy of an antral ulcer, biopsy of the body of stomach, biopsy of the GE junction. BLOOD LOSS: Scant. FLUIDS: Per anesthesia. POSTOPERATIVE CONDITION: Stable. INDICATION FOR PROCEDURE: The patient is a 34-year-old female who has been having some tarry stools. She had some gastritis. She also has a history of AI and needed to look at the inside and outside of the anus. PROCEDURE NOTE: After informed consent was obtained, the patient was brought to the endoscopy suite, placed in bed in left lateral decubitus position. She was administered IV sedation by the NETWORK SYSTEMS ANALYST who then monitored his vitals the entire time, heart rate, blood pressure and pulse ox. We started with the EGD, placed the scope down the mouth through the esophagus and into the stomach. Immediately upon entering the stomach, noted some bloody spots, took a picture of this, pushing the duodenum. Duodenum looked fine, took a picture. Pulled back into the antrum, did a biopsy of the antrum, then saw what looked like an ulcer, right near there, did another biopsy of this ulcer and then did a biopsy of body of stomach, retroflexed the scope, did not appear to be a hiatal hernia. Pulled the scope into the GE junction, did a biopsy and then pushed the scope back in the stomach, suctioned all the air out and then pulled the scope up the esophagus out of the mouth. Switched camera, switched gloves, went down below, started the colonoscopy. Unfortunately, immediately upon entry, noted retained fecal material covering the bernardo, unable to clear it. Pushed through up and passed the splenic flexure into the transverse colon and possibly into the ascending colon. Through here, saw very thick retained fecal material, could not get past here and could not clear the bernardo, so at this point just stopped, insufflating to look circumferentially at the bernardo, looking at possibly the top of the ascending colon, the transverse colon and hepatic flexure down to the splenic flexure, into the descending colon, down into the sigmoid and finally into the rectum. She had some internal hemorrhoids and looked in the outside had some external hemorrhoids, but did not see any signs of anal cancer. She will need a repeat colonoscopy. Job ID: [id number] DocumentID: [id number] Dictated Date: 05/01/2020 18:44:32 Exchange Architect Date: 05/02/2020 05:13:26 Dictated By: BIN CUTLER DO
== END 2020-05-01 09:40 | disposition home or self-care (01) ==
LOC: ENDO 08:01
PROVIDERS: ATTEND Surgery
DX: K29.51 Unspecified chronic gastritis with bleeding (principal); K25.9 Gastric ulcer, unspecified as acute or chronic, without hemorrhage or perforation; K64.8 Other hemorrhoids; K64.4 Residual hemorrhoidal skin tags; Z87.19 Personal history of other diseases of the digestive system; Z88.2 Allergy status to sulfonamides; E03.9 Hypothyroidism, unspecified; E78.5 Hyperlipidemia, unspecified; E78.1 Pure hyperglyceridemia; I08.1 Rheumatic disorders of both mitral and tricuspid valves; F17.210 Nicotine dependence, cigarettes, uncomplicated; J45.909 Unspecified asthma, uncomplicated; M54.9 Dorsalgia, unspecified; G62.9 Polyneuropathy, unspecified; M06.9 Rheumatoid arthritis, unspecified; F32.9 Major depressive disorder, single episode, unspecified; F41.9 Anxiety disorder, unspecified; E66.01 Morbid (severe) obesity due to excess calories; K59.09 Other constipation; K20.9 Esophagitis, unspecified; K31.9 Disease of stomach and duodenum, unspecified; Z68.41 Body mass index [BMI] 40.0-44.9, adult; Z79.890 Hormone replacement therapy; Z79.899 Other long term (current) drug therapy; Z88.0 Allergy status to penicillin; Z88.8 Allergy status to other drugs, medicaments and biological substances

== ENCOUNTER 2020-07-11 10:48 | Emergency (ER) | payer MEDICAID ==
[~2020-07-11] VITALS: Ht 172.7 cm; Wt 117.9 kg
[~2020-07-11 10:48] MED LIST changes: +PANT40TA2 PO; -PANT40TA3 PO; +PANT40TA52 PO; +SUCR1TAB36 PO
[2020-07-11] MEDS ORDERED: ASPIRIN 81 MG CHEW (CHILDREN'S ASA) ONE (10:57)
[2020-07-11] MEDS ORDERED: ASPIRIN 81 MG CHEW (CHILDREN'S ASA) PO ONE (11:00)
[2020-07-11 11:12] LABS: BASOPHILS # (AUTO) 0.1 10^3/uL (0.0-0.1); BASOPHILS % (AUTO) 1 % (0-10); EOSINOPHILS # (AUTO) 0.1 10^3/uL (0.0-0.3); EOSINOPHILS % (AUTO) 1 % (0-10); HEMATOCRIT 45 % (35-52); HEMOGLOBIN 15.3 g/dL (11.5-16.0); LYMPHOCYTES % (AUTO) 26 % (12-44); MEAN CORPUSCULAR HEMOGLOBIN 32 pg (25-34); MEAN CORPUSCULAR HGB CONC 34 g/dL (32-36); MEAN CORPUSCULAR VOLUME 95 fL (80-99); MEAN PLATELET VOLUME 10.3 fL (9.0-12.2); MONOCYTES # (AUTO) 0.5 10^3/uL (0.0-1.0); MONOCYTES % (AUTO) 6 % (0-12); NEUTROPHILS % (AUTO) 65 % (42-75); PLATELET COUNT 237 10^3/uL (130-400); WHITE BLOOD COUNT 7.7 10^3/uL (4.3-11.0)
[2020-07-11 11:22] LABS: ALBUMIN 4.8 GM/DL (3.2-4.5); CHLORIDE 103 MMOL/L (98-107); POTASSIUM 3.7 MMOL/L (3.6-5.0); SODIUM 140 MMOL/L (135-145)
[2020-07-11 11:23] LABS: CALCIUM 9.3 MG/DL (8.5-10.1)
[2020-07-11 11:24] LABS: GLUCOSE 99 MG/DL (70-105); TOTAL PROTEIN 7.9 GM/DL (6.4-8.2)
[2020-07-11 11:25] LABS: CARBON DIOXIDE 26 MMOL/L (21-32)
[2020-07-11] MEDS ORDERED: NS IV 1000 ML 1,000 ML IV STA (11:25)
[2020-07-11] MEDS ORDERED: diphenhydrAMINE 50 MG/ML INJ (BENADRYL) IV STA (11:25)
[2020-07-11] MEDS ORDERED: PROMETHAZINE INJ 25 MG/ML (PHENERGAN) AMP IVP STA (11:25)
[2020-07-11 11:26] LABS: BILIRUBIN,TOTAL 0.4 MG/DL (0.1-1.0)
[2020-07-11 11:27] LABS: ALKALINE PHOSPHATASE 73 U/L (40-136)
[2020-07-11 11:28] LABS: CREATININE SERUM 1.06 MG/DL (0.60-1.30); GFR ESTIMATED 60
[2020-07-11 11:29] LABS: BUN/CREATININE RATIO 10
[2020-07-11 11:31] LABS: ALANINE AMINOTRANSFERASE 24 U/L (0-55); MAGNESIUM 2.2 MG/DL (1.6-2.4)
--- NOTE | 2020-07-11 11:34 | ED Chest Pain ---
General Chief Complaint: Chest Pain Stated Complaint: CP, Nursing Triage Note: Pt c/o chest pain for two days that is described as heavy and stabbing. Pt reports radiation to R shoulder. Pt reports migraine for a week and three nose bleeds. Nursing Sepsis Screen: No Definite Risk Source: patient Exam Limitations: no limitations History of Present Illness Date Seen by Provider: Jul 11, 2020 Time Seen by Provider: 11:12 Initial Comments Here with report of right-sided chest pain that has been persistent for the last 2 days in the area of the right upper chest. States that she also has intermittent right rib pain just under her right breast. Denies shortness of breath, weakness, dizziness or sweating. Also has had headache that is on the left side posterior and that has persisted for the last week. Did have episode of nausea and vomiting without 3 days ago. States that has persisted despite her typical meds. Denies weakness or numbness. Denies vision or balance problems. Timing/Duration: 2-3 days Severity/Quality: moderate, aching Location: other (Right upper chest) Radiation: no radiation Activities at Onset: none Prior CP/Workup: cardiac cath, stress test Modifying Factors: improves with rest ASA po [employer]: Yes NTG SL [employer]: No Associated Symptoms: No abdominal pain, No back pain, No diaphoresis, No edema, No fever/chills; headache, nausea/vomiting; No shortness of breath, No weakness Allergies and Home Medications Allergies Coded Allergies: Bacitracin Zinc (Unverified Allergy, Intermediate, HIVES, RESP PROBLMEMS, 07/09/17) Penicillins (Unverified Allergy, Intermediate, RASH,, 07/09/17) bacitracin (Unverified Allergy, Intermediate, HIVES, RESP PROBLMEMS, 07/09/17) gramicidin D (Unverified Allergy, Intermediate, HIVES, RESP PROBLMEMS, 07/09/17) methylprednisolone sod succ (Unverified Allergy, Intermediate, RESP DIFFICULTY, 07/09/17) neomycin sulfate (Unverified Allergy, Intermediate, HIVES, RESP PROBLMEMS, 07/09/17) polymyxin B (Unverified Allergy, Intermediate, HIVES, RESP PROBLMEMS, 07/09/17) polymyxin B sulfate (Unverified Allergy, Intermediate, HIVES, RESP PROBLMEMS, 07/09/17) sulfamethoxazole (Verified Allergy, Unknown, Hives, 04/25/20) trimethoprim (Verified Allergy, Unknown, Hives, 04/25/20) Metronidazole HCl (Unverified Adverse Reaction, Mild, N/V, 07/09/17) metronidazole (Unverified Adverse Reaction, Mild, N/V, 07/09/17) Home Medications Butalb/Acetaminophen/Caffeine 1 Each Tablet, 1-2 EACH PO Q6 Prescribed by: ALFRED GARCIA on 04/26/202121 Levothyroxine Sodium 125 Mcg Tablet, 250 MCG PO DAILY, (Reported) Levothyroxine Sodium 25 Mcg Tablet, 25 MG PO DAILY, (Reported) Nitrofurantoin Monohyd/M-Cryst 100 Mg Capsule, 1 TAB PO BID Prescribed by: ALFRED GARCIA on 04/26/202124 Ondansetron 8 Mg Tab.rapdis, 8 MG PO Q6H Prescribed by: ALFRED GARCIA on 04/26/202121 Pantoprazole Sodium 40 Mg Tablet.dr, 40 MG PO DAILY Prescribed by: NIMESH CARRASCO on 05/01/20904 Scopolamine 1 Each Patch.td72, 1 EACH TD Q72H Prescribed by: ALFRED GARCIA on 04/26/202121 Sucralfate 1 Gm Tablet, 1 GM PO ACHS Prescribed by: NIMESH CARRASCO on 05/01/20904 Patient Home Medication List Home Medication List Reviewed: Yes Review of Systems Review of Systems Constitutional: see HPI EENTM: No Symptoms Reported Respiratory: Denies Cough, Denies Shortness of Air Cardiovascular: Chest Pain; Denies Edema Gastrointestinal: See HPI Genitourinary: No Symptoms Reported Musculoskeletal: No back pain; muscle pain Skin: no symptoms reported All Other Systems Reviewed Negative Unless Noted: Yes Past Ufjsjwe-Migjnm-Npijhj Hx Past Med/Social Hx: Reviewed Nursing Past Med/Soc Hx Patient Social History Alcohol Use: Denies Use Recreational Drug Use: Yes Drug of Choice: marijuana Smoking Status: Current Everyday Smoker Type Used: Cigarettes 2nd Hand Smoke Exposure: Yes Recent Foreign Travel: No Contact w/Someone Who Travel: No Recent Infectious Disease Expo: No Recent Hopitalizations: No Immunizations Up To Date Tetanus Booster (TDap): More than 5yrs Date of Pneumonia Vaccine: December 28, 2012 Date of Influenza Vaccine: Apr 18, 2011 Seasonal Allergies Seasonal Allergies: Yes Past Medical History Surgeries: Yes (HYST/LSO;OVARIAN CYSTS;BILAT KNEE SCOPES/SHOULDER SCOPES/CTR;VULVAR SURG) Gallbladder, 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, Orthopedic, 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 Respiratory: Yes Asthma Currently Using CPAP: No Currently Using BIPAP: No Cardiac: Yes (HX PERICARDIAL EFFUSION, HEART CATH-CLEAR) Rheumatic Fever Neurological: Yes (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, pituitary adenoma) Headaches /Migraines, Neuropathy 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 Disorders: Yes Female 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 Disorders: Menstrual Problems, 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, 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 Sexually Transmitted Disease: No ( ) HIV/AIDS: No Genitourinary: No Gastrointestinal: Yes Chronic Constipation, Hemorrhoids Musculoskeletal: Yes (CHRONIC PAIN) Rheumatoid Arthritis, Chronic Back Pain Endocrine: Yes (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) Hypothyroidsim HEENT: Yes (GLASSES/CONTACTS) Loss of Vision: Denies Hearing Impairment: Denies Cancer: Yes (precancerous cells of ain) Psychosocial: Yes Sleep Difficulties, Anxiety, Depression Integumentary: No Blood Disorders: No Adverse Reaction/Blood Tranf: No (N/A) Family Medical History Reviewed Nursing Family Hx Asthma son CANC 19 MOTHER (CANCER OF GALLBLADDER AND UTERUS) Diabetes mellitus G8 SISTER FH: cancer Hypertension 19 FATHER Psychosocial problem G8 SISTER (ANXIETY) Thyroid disease 19 MOTHER (HYPERTHYROID) Physical Exam Vital Signs Vital Signs - First Documented 07/11/20 11:01 Temp 36.9 Pulse 66 Resp 14 B/P (MAP) 131/102 (112) Pulse Ox 95 O2 Delivery Room Air Capillary Refill : Less Than 3 Seconds Height, Weight, BMI Height: 5'8.00" Weight: 260lbs. 4.0oz. 118.647138pl; 39.00 BMI Method:Stated General Appearance: No Apparent Distress, WD/WN HEENT: PERRL/EOMI, Pharynx Normal Neck: Non Tender, Supple Respiratory: Lungs Clear, Normal Breath Sounds Cardiovascular: Regular Rate, Rhythm, No Murmur Gastrointestinal: Non Tender, Soft Extremity: Normal Range of Motion, Non Tender Neurologic/Psychiatric: Alert, Oriented x3 Skin: Normal Color, Warm/Dry Progress/Results/Core Measures Results/Orders Lab Results Laboratory Tests Test 07/11/20 11:00 Range/Units White Blood Count 7.7 4.3-11.0 10^3/uL Red Blood Count 4.77 3.80-5.11 10^6/uL Hemoglobin 15.3 11.5-16.0 g/dL Hematocrit 45 35-52 % Mean Corpuscular Volume 95 80-99 fL Mean Corpuscular Hemoglobin 32 25-34 pg Mean Corpuscular Hemoglobin Concent 34 32-36 g/dL Red Cell Distribution Width 13.2 10.0-14.5 % Platelet Count 237 130-400 10^3/uL Mean Platelet Volume 10.3 9.0-12.2 fL Immature Granulocyte % (Auto) 1 % Neutrophils (%) (Auto) 65 42-75 % Lymphocytes (%) (Auto) 26 12-44 % Monocytes (%) (Auto) 6 0-12 % Eosinophils (%) (Auto) 1 0-10 % Basophils (%) (Auto) 1 0-10 % Neutrophils # (Auto) 5.0 1.8-7.8 10^3/uL Lymphocytes # (Auto) 2.0 1.0-4.0 10^3/uL Monocytes # (Auto) 0.5 0.0-1.0 10^3/uL Eosinophils # (Auto) 0.1 0.0-0.3 10^3/uL Basophils # (Auto) 0.1 0.0-0.1 10^3/uL Immature Granulocyte # (Auto) 0.0 0.0-0.1 10^3/uL Prothrombin Time 12.9 12.2-14.7 SEC INR Comment 0.9 0.8-1.4 Activated Partial Thromboplast Time 33 24-35 SEC D-Dimer <= 0.27 0.00-0.49 UG/ML Sodium Level 140 135-145 MMOL/L Potassium Level 3.7 3.6-5.0 MMOL/L Chloride Level 103 98-107 MMOL/L Carbon Dioxide Level 26 21-32 MMOL/L Anion Gap 11 5-14 MMOL/L Blood Urea Nitrogen 11 7-18 MG/DL Creatinine 1.06 0.60-1.30 MG/DL Estimat Glomerular Filtration Rate 60 BUN/Creatinine Ratio 10 Glucose Level 99 70-105 MG/DL Calcium Level 9.3 8.5-10.1 MG/DL Corrected Calcium 8.5-10.1 MG/DL Magnesium Level 2.2 1.6-2.4 MG/DL Total Bilirubin 0.4 0.1-1.0 MG/DL Aspartate Amino Transf (AST/SGOT) 29 5-34 U/L Alanine Aminotransferase (ALT/SGPT) 24 0-55 U/L Alkaline Phosphatase 73 40-136 U/L Myoglobin 85.3 10.0-92.0 NG/ML Troponin I < 0.028 <0.028 NG/ML Total Protein 7.9 6.4-8.2 GM/DL Albumin 4.8 H 3.2-4.5 GM/DL My Orders Orders - ANN SEWELL MD Cbc With Automated Diff (07/11/20 10:59) Magnesium (07/11/20 10:59) Chest 1 View, Ap/Pa Only (07/11/20 10:59) Aspirin Chewable Tablet (Baby Aspirin Ch (07/11/20 10:57) Ekg Tracing (07/11/20 10:59) Comprehensive Metabolic Panel (07/11/20 10:59) Myoglobin Serum (07/11/20 10:59) Protime With Inr (07/11/20 10:59) Partial Thromboplastin Time (07/11/20 10:59) O2 (07/11/20 10:59) Monitor-Rhythm Ecg Trace Only (07/11/20 10:59) Lipid Panel (07/12/20 06:00) Ed Iv/Invasive Line Start (07/11/20 10:59) Fibrin Degradation Products (07/11/20 10:59) Troponin I (07/11/20 10:59) Aspirin Chewable Tablet (Baby Aspirin Ch (07/11/20 11:00) Promethazine Injection (Phenergan Injec (07/11/20 11:25) Ns Iv 1000 Ml (Sodium Chloride 0.9%) (07/11/20 11:25) Diphenhydramine Injection (Benadryl Inje (07/11/20 11:25) Decadron 10 Mg Ivp (07/11/20 12:45) Medications Given in ED Current Medications Medications Dose Ordered Sig/Narinder Route Start Time Stop Time Status Last Admin Dose Admin Aspirin 162 mg ONCE ONCE PO 07/11/20 11:00 07/11/20 11:01 DC 07/11/20 11:05 162 MG Vital Signs/I&O 07/11/20 07/11/20 11:01 11:01 Temp 36.9 Pulse 66 Resp 14 B/P (MAP) 131/102 (112) Pulse Ox 95 O2 Delivery Room Air Room Air Blood Pressure Mean: 112 Progress Progress Note : Progress Note Seen and evaluated. IV, labs, chest x-ray and EKG ordered. Normal saline 1 L bolus. Phenergan 25 mg IV and Benadryl 25 mg IV for headache ordered. Monitor patient. 1245: Overall doing better. Able to walk to the bathroom. States that she still has some residual headache. We have used Decadron in the past and we will do that today x1 dose and then discharge. Discharged home with return precautions. Patient verbalized understanding of instructions and agreement with plan. Initial ECG Impression Date: Jul 11, 2020 Initial ECG Impression Time: 10:55 Initial ECG Rate: 66 Initial ECG Rhythm: Normal Sinus Initial ECG Comparisson: No Previous ECG Available Comment Sinus rhythm with normal axis. No evidence of ST elevation IN. Similar to previous of 04/19/2020. Interpreted by me. Diagnostic Imaging Diagonstic Imaging: Xray Plain Films/CT/US/NM/MRI: chest Comments [facility] [place], [place] NAME: ANUJA CULP [facility] REC#: [id number] PT STATUS: REG ER : 1985 PHYSICIAN: ANN SEWELL MD ADMIT DATE: 07/11/20/ER Signed Date of Exam:07/11/20 CHEST 1 VIEW, AP/PA ONLY Indication: Chest pain Portable chest 11:32 AM Heart size and pulmonary vascularity are normal. Lungs are clear. There are no effusions or pneumothoraces. IMPRESSION: Negative chest Dictated by: Dictated on workstation # [id number] Dict: 07/11/20 1130 Trans: 07/11/20 1130 [id number] Interpreted by: ANN ANN MD Electronically signed by: ANN ANN MD 07/11/20 1130 Departure Impression Primary Impression: Chest pain Qualified Codes: R07.9 - Chest pain, unspecified Additional Impression: Migraine headache Qualified Codes: G43.909 - Migraine, unspecified, not intractable, without s tatus migrainosus Disposition: 01 HOME, SELF-CARE Condition: Stable Departure-Patient Inst. Decision time for Depature: 12:47 Referrals: RITA KIMBROUGH (PCP/Family) Primary Care Physician Patient Instructions: Chest Pain (DC), Migraines (DC) Add. Discharge Instructions: All discharge instructions reviewed with patient and/or family. Voiced understanding. Take home medications as previously prescribed. Follow-up with your doctor for recheck and further evaluation. Return for worse pain, fever, vomiting, weakness, breathing problems or other concerns as needed. ANN SEWELL MD Jul 11, 2020 11:34
[2020-07-11 11:38] LABS: INR 0.9 (0.8-1.4); PROTHROMBIN TIME PATIENT 12.9 SEC (12.2-14.7)
[2020-07-11 13:05] VITALS: BP 143/99
== END 2020-07-11 13:05 | disposition home or self-care (01) ==
LOC: EDUNIT# 10:48 → ER 10:49
DX: R07.9 Chest pain, unspecified (principal); G43.909 Migraine, unspecified, not intractable, without status migrainosus; E03.9 Hypothyroidism, unspecified; F17.210 Nicotine dependence, cigarettes, uncomplicated; Z82.49 Family history of ischemic heart disease and other diseases of the circulatory system; Z83.3 Family history of diabetes mellitus; Z80.9 Family history of malignant neoplasm, unspecified; Z79.890 Hormone replacement therapy; Z85.828 Personal history of other malignant neoplasm of skin; Z95.9 Presence of cardiac and vascular implant and graft, unspecified; Z88.0 Allergy status to penicillin; Z88.2 Allergy status to sulfonamides; Z88.8 Allergy status to other drugs, medicaments and biological substances; Z88.1 Allergy status to other antibiotic agents
CPT/HCPCS: 36415; 71045; 80053; 83735; 83874; 84484; 85025; 85379; 85610; 85730; 93041

== ENCOUNTER → 2020-10-25 | Outpatient (CLI) | payer MEDICAID ==
[~2020-10-25] MED LIST changes: -CIPR500T4 PO; +CIPR500T5 PO; +GADOBUTROL 15 MMOL/15 ML (GADAVIST) VIAL IV ONE; -MONT10TA26 PO; +MONT10TA32 PO
--- NOTE | 2020-10-25 16:11 | Diagnostic Imaging Report ---
CLINICAL INDICATION: Patient with headache syndrome. EXAM: MRI of the brain and pituitary using pituitary protocol performed without and with 11 mL of Gadavist IV gadolinium. Sequences include sagittal T1, axial flair, axial T1, axial DWI, axial ADC map, axial gradient echo, coronal T1 thin, sagittal T1 thin, coronal T2 fat-sat thin axial T1 post contrast whole brain, coronal T1 fat-sat post IV contrast whole brain, sagittal T1 post IV contrast whole brain coronal dynamic post IV gadolinium through the sella, coronal T1 post IV gadolinium thin fat sat, and sagittal T1 post gadolinium thin. COMPARISON: MRI of the brain/pituitary dated 04/19/2020. FINDINGS: There is interval decreased size of the previously seen high T1/low T2 signal involving the anterior aspect of the previously seen enlarged pituitary gland. 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 There is residual small area of isointense T1 to brain signal and hypoenhancing lesion involving the anterior aspect of the pituitary gland. This area measures roughly 4 mm x 5 mm x 7 mm (AP x Trans x CC) and previously measured 5 mm x 7 mm in AP x craniocaudal dimension. There is interval decreased size of the pituitary gland which now measures roughly 10 mm in craniocaudal dimension with slight superior convex border. This size is upper limits of normal for patient's age and gender. There is no significant encroachment upon the optic nerves or cavernous carotid arteries. The cavernous carotid arteries are patent. The infundibulum is grossly midline. There is no significant change to the multiple focal areas of high T2 signal white matter changes. The brain parenchyma shows no abnormal IV contrast enhancement. The brain parenchymal volume is appropriate for patient's age. There is no hydrocephalus, brain herniation or midline shift. Basal cisterns are unremarkable. The [place] vascular structures show no gross abnormality as visualized. Extra cranial soft tissues, skull, and orbits are unremarkable. Paranasal sinuses and mastoid air cells are clear. IMPRESSION: 1: There is interval evolution of the previously seen pituitary gland findings of apoplexy with residual small area of hypoenhancement involving the anterior aspect of the pituitary gland. This likely represents an area of evolving blood. There is interval decreased size of the pituitary gland which is now 10 mm in craniocaudal dimension which is upper limits of normal compared to prior study previously measured at 12 mm. There is no significant encroachment upon the optic nerves or cavernous carotid arteries. Cavernous carotid arteries are patent. 2: Otherwise stable brain parenchymal findings with nonspecific multiple focal areas of subcortical high T2 signal white matter changes involving both frontal lobes. Dictated by: Dictated on workstation # [id number]
== END ==
LOC: RAD 11:00
PROVIDERS: ATTEND Neurological Surgery
DX: D35.2 Benign neoplasm of pituitary gland (principal); G44.89 Other headache syndrome; R90.82 White matter disease, unspecified
CPT/HCPCS: 70553

== ENCOUNTER 2020-10-29 15:07 | Emergency (ER) | payer MEDICAID ==
[~2020-10-29] VITALS: Ht 172 cm; Wt 113.0 kg
[~2020-10-29 15:07] MED LIST changes: -GADOBUTROL 15 MMOL/15 ML (GADAVIST) VIAL IV ONE
[2020-10-29] MEDS ORDERED: fentaNYL INJECTION 100 MCG/2 ML AMP IVP STA (16:08)
[2020-10-29] MEDS ORDERED: ONDANSETRON 4 MG/2 ML (SDV) Z0FRAN IVP ONE (16:15)
[2020-10-29] MEDS ORDERED: LACTATED RINGERS 1,000 ML IV ONE (16:15)
[2020-10-29 16:16] LABS: BASOPHILS % (AUTO) 1 % (0-10); BILIRUBIN,URINE NEGATIVE (NEGATIVE); CLARITY,URINE OTHER; COLOR,URINE YELLOW; EOSINOPHILS # (AUTO) 0.1 10^3/uL (0.0-0.3); EOSINOPHILS % (AUTO) 2 % (0-10); GLUCOSE, URINE (UA) NEGATIVE (NEGATIVE); HEMATOCRIT 44 % (35-52); HEMOGLOBIN 14.7 g/dL (11.5-16.0); KETONES,URINE NEGATIVE (NEGATIVE); LEUKOCYTE ESTERASE ,URINE NEGATIVE (NEGATIVE); LYMPHOCYTES # (AUTO) 1.6 10^3/uL (1.0-4.0); LYMPHOCYTES % (AUTO) 26 % (12-44); MEAN CORPUSCULAR HEMOGLOBIN 32 pg (25-34); MEAN CORPUSCULAR HGB CONC 33 g/dL (32-36); MEAN CORPUSCULAR VOLUME 97 fL (80-99); MEAN PLATELET VOLUME 10.7 fL (9.0-12.2); MONOCYTES # (AUTO) 0.5 10^3/uL (0.0-1.0); MONOCYTES % (AUTO) 9 % (0-12); NEUTROPHILS # (AUTO) 3.8 10^3/uL (1.8-7.8); NEUTROPHILS % (AUTO) 63 % (42-75); NITRITE,URINE NEGATIVE (NEGATIVE); PLATELET COUNT 203 10^3/uL (130-400); PROTEIN,URINE NEGATIVE (NEGATIVE); WHITE BLOOD COUNT 6.1 10^3/uL (4.3-11.0)
[2020-10-29 16:28] LABS: BACTERIA,URINE FEW /HPF; WBC,URINE 0-2 /HPF
[2020-10-29 16:29] LABS: ALBUMIN 4.3 GM/DL (3.2-4.5); CHLORIDE 110 MMOL/L (98-107); POTASSIUM 4.2 MMOL/L (3.6-5.0); SODIUM 140 MMOL/L (135-145)
--- NOTE | 2020-10-29 16:29 | ED Headache ---
General Chief Complaint: Head/Cervical Problems Stated Complaint: MIGRAINE X 1 WK Nursing Triage Note: AMBULATED TO ROOM 08 WITH COMPLAINTS OF A MIGRAINE X1 WEEK. STATES SHE HAS A PITUITARY TUMOR AND HAD A CT DONE THIS PAST WED DUE TO THE HEADACHE. HAS BEEN TAKING TYLEONL AND SMOKING WEED FOR THE PAIN BUT IT NO LONGER IS HELPING. Nursing Sepsis Screen: No Definite Risk Source: patient Exam Limitations: no limitations History of Present Illness Date Seen by Provider: Oct 29, 2020 Time Seen by Provider: 15:57 Initial Comments Here with complaint of headache that has occurred and persisted over the last week. Has history of pituitary tumor and I have been following that. She did get MRI of the brain on 10/25/2020 but does not know the results. Pain and nausea have worsened and she has quite significant photophobia. Patient states that she has been taking Tylenol and smoking marijuana to help with the pain and nausea that usually works but is no longer working. She follows with Dr. Howell, neurosurgeon at . He is who ordered the MRI. Patient admits to eating and drinking less due to not feeling well. Pain became more unbearable today. States that she has had worsening vision and patient issues this week associated with a headache. Next appointment with Dr. Howell is on 11/07. Timing/Duration: 1 week, increasing Severity/Quality: moderate, severe Location: frontal Prior Headaches/Recent Trauma: frequent headaches Modifying Factors: improves with exposure to light Associated Symptoms: No fever/chills, No loss of consciousness; na usea/vomiting; No nasal congestion, No nasal drainage, No numbness in legs/feet, No seizures, No stiff neck; vision changes; No weakness Allergies and Home Medications Allergies Coded Allergies: Bacitracin Zinc (Unverified Allergy, Intermediate, HIVES, RESP PROBLMEMS, 07/09/17) Penicillins (Unverified Allergy, Intermediate, RASH,, 07/09/17) bacitracin (Unverified Allergy, Intermediate, HIVES, RESP PROBLMEMS, 07/09/17) gramicidin D (Unverified Allergy, Intermediate, HIVES, RESP PROBLMEMS, 07/09/17) methylprednisolone sod succ (Unverified Allergy, Intermediate, RESP DIFFICULTY, 07/09/17) neomycin sulfate (Unverified Allergy, Intermediate, HIVES, RESP PROBLMEMS, 07/09/17) polymyxin B (Unverified Allergy, Intermediate, HIVES, RESP PROBLMEMS, 07/09/17) polymyxin B sulfate (Unverified Allergy, Intermediate, HIVES, RESP PROBLMEMS, 07/09/17) sulfamethoxazole (Verified Allergy, Unknown, Hives, 04/25/20) trimethoprim (Verified Allergy, Unknown, Hives, 04/25/20) Metronidazole HCl (Unverified Adverse Reaction, Mild, N/V, 07/09/17) metronidazole (Unverified Adverse Reaction, Mild, N/V, 07/09/17) Home Medications Butalb/Acetaminophen/Caffeine 1 Each Tablet, 1-2 EACH PO Q6 Prescribed by: ALFRED GARCIA on 04/26/202121 Levothyroxine Sodium 125 Mcg Tablet, 250 MCG PO DAILY, (Reported) Levothyroxine Sodium 25 Mcg Tablet, 25 MG PO DAILY, (Reported) Nitrofurantoin Monohyd/M-Cryst 100 Mg Capsule, 1 TAB PO BID Prescribed by: ALFRED GARCIA on 04/26/202124 Ondansetron 8 Mg Tab.rapdis, 8 MG PO Q6H Prescribed by: ALFRED GARCIA on 04/26/202121 Pantoprazole Sodium 40 Mg Tablet.dr, 40 MG PO DAILY Prescribed by: NIMESH CARRASCO on 05/01/20 09 Scopolamine 1 Each Patch.td72, 1 EACH TD Q72H Prescribed by: ALFRED GARCIA on 04/26/202121 Sucralfate 1 Gm Tablet, 1 GM PO ACHS Prescribed by: NIMESH CARRASCO on 05/01/20 09 Patient Home Medication List Home Medication List Reviewed: Yes Review of Systems Review of Systems Constitutional: see HPI; No chills, No fever Eyes: See HPI Ears, Nose, Mouth, Throat: no symptoms reported Respiratory: No cough, No short of breath Cardiovascular: No chest pain, No edema Gastrointestinal: No abdominal pain, No nausea, No vomiting Genitourinary: no symptoms reported Musculoskeletal: no symptoms reported Skin: no symptoms reported Psychiatric/Neurological: See HPI, Headache; Denies Paresthesia, Denies Weakness All Other Systems Reviewed Negative Unless Noted: Yes Past Iuvgclu-Ssmtyf-Bmyjij Hx Past Med/Social Hx: Reviewed Nursing Past Med/Soc Hx Patient Social History Alcohol Use: Denies Use Drug of Choice: marijuana Smoking Status: Current Everyday Smoker Type Used: Cigarettes 2nd Hand Smoke Exposure: Yes Recent Infectious Disease Expo: No Recent Hopitalizations: No Immunizations Up To Date Tetanus Booster (TDap): More than 5yrs Date of Pneumonia Vaccine: December 28, 2012 Date of Influenza Vaccine: Apr 18, 2011 Seasonal Allergies Seasonal Allergies: Yes Past Medical History Surgeries: Yes (HYST/LSO;OVARIAN CYSTS;BILAT KNEE SCOPES/SHOULDER SCOPES/CTR;VULVAR SURG) Gallbladder, 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, Orthopedic, 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 Respiratory: Yes Asthma Currently Using CPAP: No Currently Using BIPAP: No Cardiac: Yes (HX PERICARDIAL EFFUSION, HEART CATH-CLEAR) Rheumatic Fever Neurological: Yes (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, pituitary adenoma) Headaches /Migraines, Neuropathy 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 Disorders: Yes Female 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 Disorders: Menstrual Problems, 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, 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 Sexually Transmitted Disease: No ( ) HIV/AIDS: No Genitourinary: No Gastrointestinal: Yes Chronic Constipation, Hemorrhoids Musculoskeletal: Yes (CHRONIC PAIN) Rheumatoid Arthritis, Chronic Back Pain Endocrine: Yes (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) Hypothyroidsim HEENT: Yes (GLASSES/CONTACTS) Loss of Vision: Denies Hearing Impairment: Denies Cancer: Yes (precancerous cells of ain) Psychosocial: Yes Sleep Difficulties, Anxiety, Depression Integumentary: No Blood Disorders: No Adverse Reaction/Blood Tranf: No (N/A) Family Medical History Reviewed Nursing Family Hx Asthma son CANC 19 MOTHER (CANCER OF GALLBLADDER AND UTERUS) Diabetes mellitus G8 SISTER FH: cancer Hypertension 19 FATHER Psychosocial problem G8 SISTER (ANXIETY) Thyroid disease 19 MOTHER (HYPERTHYROID) Physical Exam Vital Signs Vital Signs - First Documented 10/29/20 15:10 Temp 36.0 Pulse 71 Resp 16 B/P (MAP) 147/104 (118) Pulse Ox 96 O2 Delivery Room Air Capillary Refill : Less Than 3 Seconds Height, Weight, BMI Height: 5'8.00" Weight: 260lbs. 4.0oz. 118.395544pl; 38.00 BMI Method:Stated General Appearance: WD/WN, no apparent distress HEENT: PERRL/EOMI, pharynx normal Neck: full range of motion, supple Cardiovascular: regular rate, rhythm, no murmur Respiratory: lungs clear, normal breath sounds Gastrointestinal: non tender, soft Back: normal inspection, no CVA tenderness, no vertebral tenderness Extremities: non-tender, normal inspection Psychiatric: alert, oriented x 3 Crainal Nerves: normal hearing, normal speech Motor/Sensory: no motor deficit, no sensory deficit Skin: normal color, warm/dry Progress/Results/Core Measures Results/Orders Lab Results Laboratory Tests Test 10/29/20 16:10 Range/Units White Blood Count 6.1 4.3-11.0 10^3/uL Red Blood Count 4.58 3.80-5.11 10^6/uL Hemoglobin 14.7 11.5-16.0 g/dL Hematocrit 44 35-52 % Mean Corpuscular Volume 97 80-99 fL Mean Corpuscular Hemoglobin 32 25-34 pg Mean Corpuscular Hemoglobin Concent 33 32-36 g/dL Red Cell Distribution Width 13.5 10.0-14.5 % Platelet Count 203 130-400 10^3/uL Mean Platelet Volume 10.7 9.0-12.2 fL Immature Granulocyte % (Auto) 0 % Neutrophils (%) (Auto) 63 42-75 % Lymphocytes (%) (Auto) 26 12-44 % Monocytes (%) (Auto) 9 0-12 % Eosinophils (%) (Auto) 2 0-10 % Basophils (%) (Auto) 1 0-10 % Neutrophils # (Auto) 3.8 1.8-7.8 10^3/uL Lymphocytes # (Auto) 1.6 1.0-4.0 10^3/uL Monocytes # (Auto) 0.5 0.0-1.0 10^3/uL Eosinophils # (Auto) 0.1 0.0-0.3 10^3/uL Basophils # (Auto) 0.0 0.0-0.1 10^3/uL Immature Granulocyte # (Auto) 0.0 0.0-0.1 10^3/uL Urine Color YELLOW Urine Clarity OTHER Urine pH 6.0 5-9 Urine Specific [place] 1.015 L 1.016-1.022 Urine Protein NEGATIVE NEGATIVE Urine Glucose (UA) NEGATIVE NEGATIVE Urine Ketones NEGATIVE NEGATIVE Urine Nitrite NEGATIVE NEGATIVE Urine Bilirubin NEGATIVE NEGATIVE Urine Urobilinogen 0.2 < = 1.0 MG/DL Urine Leukocyte Esterase NEGATIVE NEGATIVE Urine RBC (Auto) NEGATIVE NEGATIVE Urine RBC NONE /HPF Urine WBC 0-2 /HPF Urine Squamous Epithelial Cells 10-25 H /HPF Urine Crystals NONE /LPF Urine Bacteria FEW H /HPF Urine Casts NONE /LPF Urine Mucus NEGATIVE /LPF Urine Culture Indicated YES Sodium Level 140 135-145 MMOL/L Potassium Level 4.2 3.6-5.0 MMOL/L Chloride Level 110 H 98-107 MMOL/L Carbon Dioxide Level 20 L 21-32 MMOL/L Anion Gap 10 5-14 MMOL/L Blood Urea Nitrogen 12 7-18 MG/DL Creatinine 0.83 0.60-1.30 MG/DL Estimat Glomerular Filtration Rate > 60 BUN/Creatinine Ratio 14 Glucose Level 85 70-105 MG/DL Calcium Level 8.9 8.5-10.1 MG/DL Corrected Calcium 8.7 8.5-10.1 MG/DL Magnesium Level 2.5 H 1.6-2.4 MG/DL Total Bilirubin 0.4 0.1-1.0 MG/DL Aspartate Amino Transf (AST/SGOT) 29 5-34 U/L Alanine Aminotransferase (ALT/SGPT) 31 0-55 U/L Alkaline Phosphatase 79 40-136 U/L Total Protein 7.4 6.4-8.2 GM/DL Albumin 4.3 3.2-4.5 GM/DL My Orders Orders - ANN SEWELL MD Cbc With Automated Diff (10/29/20 16:08) Comprehensive Metabolic Panel (10/29/20 16:08) Magnesium (10/29/20 16:08) Thyroid Analyzer (10/29/20 16:08) Ua Culture If Indicated (10/29/20 16:08) Ed Iv/Invasive Line Start (10/29/20 16:08) Lactated Ringers (Lr 1000 Ml Iv Solution (10/29/20 16:15) Fentanyl Injection (Sublimaze Injection (10/29/20 16:08) Ondansetron Injection (Zofran Injectio (10/29/20 16:15) Urine Culture (10/29/20 16:10) Ketorolac Injection (Toradol Injection) (10/29/20 16:45) Diphenhydramine Injection (Benadryl Inje (10/29/20 16:45) Promethazine Injection (Phenergan Injec (10/29/20 16:45) Medications Given in ED Current Medications Medications Dose Ordered Sig/Narinder Route Start Time Stop Time Status Last Admin Dose Admin Lactated Ringer's 1,000 ml @ 0 mls/hr Q0M ONCE IV 10/29/20 16:15 10/29/20 16:16 DC 10/29/20 16:17 1,000 MLS/HR Ondansetron HCl 4 mg ONCE ONCE IVP 10/29/20 16:15 10/29/20 16:16 DC 10/29/20 16:17 4 MG Vital Signs/I&O 10/29/20 15:10 Temp 36.0 Pulse 71 Resp 16 B/P (MAP) 147/104 (118) Pulse Ox 96 O2 Delivery Room Air Blood Pressure Mean: 118 Progress Progress Note : Progress Note Seen and evaluated. IV, labs and UA ordered. Fentanyl 50 mcg IV for pain. MRI results reviewed. I did make contact with [facility] and discussed the case with Dr. Kunz, on-call for Dr. Howell for neurosurgery. Those films were clouded to at time of service and he was able to review the films. He does not think that this is related to the pituitary apoplexy. Patient does have history of migraine headaches. Given that there is no concerns on the MRI at this point, we will initiate treatment as if this were migraine headache. Toradol 30 mg IV, Phenergan 25 mg IV and Benadryl 25 mg IV ordered. Patient has LR 1 L bolus running. 1718: Overall feeling better with TSH results pending. Monitor patient. 1752: No acute findings and patient is actually feeling better. TSH is still pending although she did have TSH done recently that apparently has been okay as they have not called her for any critical results. Patient would like to go ahead and go home and will call her if this is abnormal. Discharged home with return precautions. Patient verbalized understanding of instructions and agreement with plan. Departure Impression Primary Impression: Migraine Qualified Codes: G43.909 - Migraine, unspecified, not intractable, without status migrainosus Disposition: HOME, SELF-CARE Condition: Stable Departure-Patient Inst. Decision time for Depature: 17:56 Referrals: RITA KIMBROUGH (PCP/Family) Primary Care Physician Patient Instructions: Migraines (DC) Add. Discharge Instructions: All discharge instructions reviewed with patient and/or family. Voiced understanding. Continue home medications as previously prescribed. Follow-up with your neurosurgeon as scheduled. Follow-up with your doctor this week for recheck and further evaluation as well. 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 If your TSH is significantly abnormal here, you will be called. Return for worse pain, fever, vomiting, weakness, breathing problems or other concerns as needed. Drink plenty of fluids and get plenty of rest. You may continue ibuprofen and/or Tylenol/acetaminophen per package directions for your headaches as well. ANN SEWELL MD Oct 29, 2020 16:29
[2020-10-29 16:30] LABS: CALCIUM 8.9 MG/DL (8.5-10.1)
[2020-10-29 16:31] LABS: GLUCOSE 85 MG/DL (70-105); TOTAL PROTEIN 7.4 GM/DL (6.4-8.2)
[2020-10-29 16:32] LABS: CARBON DIOXIDE 20 MMOL/L (21-32)
[2020-10-29 16:33] LABS: BILIRUBIN,TOTAL 0.4 MG/DL (0.1-1.0)
[2020-10-29 16:35] LABS: ALKALINE PHOSPHATASE 79 U/L (40-136); CREATININE SERUM 0.83 MG/DL (0.60-1.30); GFR ESTIMATED > 60
[2020-10-29 16:36] LABS: BUN/CREATININE RATIO 14
[2020-10-29 16:38] LABS: ALANINE AMINOTRANSFERASE 31 U/L (0-55); MAGNESIUM 2.5 MG/DL (1.6-2.4)
[2020-10-29] MEDS ORDERED: PROMETHAZINE INJ 25 MG/ML (PHENERGAN) AMP IVP STA (16:45)
[2020-10-29] MEDS ORDERED: KETOROLAC 30 MG/ML VIAL IVP STA (16:45)
[2020-10-29] MEDS ORDERED: diphenhydrAMINE 50 MG/ML INJ (BENADRYL) IV STA (16:45)
[2020-10-29 18:06] VITALS: BP 148/85
[2020-10-29 19:02] LABS: TSH (THYROID ANALYZER) 6.44 UIU/ML (0.35-4.94)
[2020-10-29 19:33] LABS: FREE T4 (FREE THYROXINE) 0.98 NG/DL (0.70-1.48)
== END 2020-10-29 18:06 | disposition home or self-care (01) ==
LOC: EDUNIT# 15:07 → ER 15:09
DX: G43.909 Migraine, unspecified, not intractable, without status migrainosus (principal); E03.9 Hypothyroidism, unspecified; F17.210 Nicotine dependence, cigarettes, uncomplicated; Z79.1 Long term (current) use of non-steroidal anti-inflammatories (NSAID); Z86.018 Personal history of other benign neoplasm; Z95.9 Presence of cardiac and vascular implant and graft, unspecified; Z79.890 Hormone replacement therapy; Z88.0 Allergy status to penicillin; Z88.1 Allergy status to other antibiotic agents; Z88.2 Allergy status to sulfonamides; Z88.3 Allergy status to other anti-infective agents
CPT/HCPCS: 36415; 80053; 81000; 83735; 84439; 84443; 85025; 87088

== ENCOUNTER → 2020-11-06 | Outpatient (CLI) | payer MEDICAID ==
--- NOTE | 2020-11-06 20:33 | Diagnostic Imaging Report ---
INDICATION: Routine screening. No prior mammograms are available for comparison. This is a baseline study. 2-D and 3-D bilateral screening mammography was performed with a Computer Aided Detection (CAD) system. 3-D tomosynthesis was also performed and reviewed. FINDINGS: Scattered fibroglandular densities are identified bilaterally. Circumscribed nodule in the upper and outer aspect of the right breast is noted. There is also a slightly more irregular density upper outer left breast. Additional views of these areas are recommended. No suspicious microcalcifications are seen. Axillae are unremarkable. IMPRESSION: Bilateral breast densities. Additional views recommended for further evaluation. ACR BI-RADS Category 0: Incomplete. (Needs additional imaging evaluation). Result letter will be mailed to the patient. Note: At least 10% of breast cancer is not imaged by mammography. Dictated by: Dictated on workstation # [id number]
== END ==
LOC: RAD 14:30
PROVIDERS: ATTEND Obstetrics & Gynecology
DX: Z12.31 Encounter for screening mammogram for malignant neoplasm of breast (principal)
CPT/HCPCS: 77063; 77067

== ENCOUNTER 2020-11-13 12:40 | Emergency (ER) | payer MEDICAID ==
[~2020-11-13] VITALS: Ht 172.7 cm; Wt 108.4 kg
[2020-11-13] MEDS ORDERED: KETOROLAC 60 MG/2 ML VIAL IM ONE (13:15)
[2020-11-13] MEDS ORDERED: PROCHLORPERAZINE 10 MG/2ML INJ (COMPAZINE) IM ONE (13:15)
[2020-11-13] MEDS ORDERED: diphenhydrAMINE 50 MG/ML INJ (BENADRYL) IM ONE (13:15)
--- NOTE | 2020-11-13 13:23 | ED General ---
General Chief Complaint: General Problems/Pain Stated Complaint: MIGRAINE Nursing Triage Note: PT AMB TO TRIAGE WITH COMPLAINT OF TONGUE SWELLING, SHAKINESS, AND HEADACHE. STATES SHE WILL START WITH THE SHAKINESS AND TONGUE SWELLING THEN HAVING A HEADACHE. STATES THESE "EPISODES" HAVE BEEN GOING ON FOR TWO WEEKS. DOES SEE NEUROSURGERY AT FOR PITUITARY TUMOR. SAW SURGEON ON 11/07 AND WAS TOLD TO FOLLOW UP WITH PCP. PCP TOLD PT TO COME TO ER WHEN THESE SYMPTOMS STARTED. Nursing Sepsis Screen: No Definite Risk Source of Information: Patient Exam Limitations: No Limitations History of Present Illness Date Seen by Provider: Nov 13, 2020 Time Seen by Provider: 12:45 Initial Comments ER with reports of headache accompanied by trouble speaking and shaking of her whole body. This will be her fifth episode this week. She follows with neurosurgery at the [facility] for a pituitary microadenoma. Timing/Duration: 1-2 Days Severity: Moderate Associated Systoms: Headaches Allergies and Home Medications Allergies Coded Allergies: Bacitracin Zinc (Unverified Allergy, Intermediate, HIVES, RESP PROBLMEMS, 07/09/17) Penicillins (Unverified Allergy, Intermediate, RASH,, 07/09/17) bacitracin (Unverified Allergy, Intermediate, HIVES, RESP PROBLMEMS, 07/09/17) gramicidin D (Unverified Allergy, Intermediate, HIVES, RESP PROBLMEMS, 07/09/17) methylprednisolone sod succ (Unverified Allergy, Intermediate, RESP DIFF ICULTY, 07/09/17) neomycin sulfate (Unverified Allergy, Intermediate, HIVES, RESP PROBLMEMS, 07/09/17) polymyxin B (Unverified Allergy, Intermediate, HIVES, RESP PROBLMEMS, 07/09/17) polymyxin B sulfate (Unverified Allergy, Intermediate, HIVES, RESP PROBLMEMS, 07/09/17) sulfamethoxazole (Verified Allergy, Unknown, Hives, 04/25/20) trimethoprim (Verified Allergy, Unknown, Hives, 04/25/20) Metronidazole HCl (Unverified Adverse Reaction, Mild, N/V, 07/09/17) metronidazole (Unverified Adverse Reaction, Mild, N/V, 07/09/17) Home Medications Butalb/Acetaminophen/Caffeine 1 Each Tablet, 1-2 EACH PO Q6 Prescribed by: ALFRED GARCIA on 04/26/202121 Levothyroxine Sodium 125 Mcg Tablet, 250 MCG PO DAILY, (Reported) Levothyroxine Sodium 25 Mcg Tablet, 25 MG PO DAILY, (Reported) Nitrofurantoin Monohyd/M-Cryst 100 Mg Capsule, 1 TAB PO BID Prescribed by: ALFRED GARCIA on 04/26/202124 Ondansetron 8 Mg Tab.rapdis, 8 MG PO Q6H Prescribed by: ALFRED GARCIA on 04/26/202121 Pantoprazole Sodium 40 Mg Tablet.dr, 40 MG PO DAILY Prescribed by: NIMESH CARRASCO on 05/01/20 09 Scopolamine 1 Each Patch.td72, 1 EACH TD Q72H Prescribed by: ALFRED GARCIA on 04/26/202121 Sucralfate 1 Gm Tablet, 1 GM PO ACHS Prescribed by: NIMESH CARRASCO on 05/01/20 0905 Patient Home Medication List Home Medication List Reviewed: Yes Review of Systems Review of Systems Constitutional: see HPI EENTM: see HPI Respiratory: no symptoms reported Cardiovascular: no symptoms reported Genitourinary: no symptoms reported Musculoskeletal: see HPI Skin: no symptoms reported Psychiatric/Neurological: See HPI, Headache Hematologic/Lymphatic: No Symptoms Reported Immunological/Allergic: no symptoms reported Past Gawkjxh-Stokpr-Oyojyo Hx Patient Social History Alcohol Use: Denies Use Drug of Choice: marijuana Smoking Status: Current Everyday Smoker Type Used: Cigarettes 2nd Hand Smoke Exposure: Yes Recent Infectious Disease Expo: No Recent Hopitalizations: No Immunizations Up To Date Tetanus Booster (TDap): More than 5yrs Date of Pneumonia Vaccine: December 28, 2012 Date of Influenza Vaccine: Apr 18, 2011 Seasonal Allergies Seasonal Allergies: Yes Past Medical History Surgeries: Yes (HYST/LSO;OVARIAN CYSTS;BILAT KNEE SCOPES/SHOULDER SCOPES/CTR;VULVAR SURG) Gallbladder, 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, Orthopedic, 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 Respiratory: Yes Asthma Currently Using CPAP: No Currently Using BIPAP: No Cardiac: Yes (HX PERICARDIAL EFFUSION, HEART CATH-CLEAR) Rheumatic Fever Neurological: Yes (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, pituitary adenoma) Headaches /Migraines, Neuropathy 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 Disorders: Yes Female 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 Disorders: Menstrual Problems, 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, 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 Sexually Transmitted Disease: No ( ) HIV/AIDS: No Genitourinary: No Gastrointestinal: Yes Chronic Constipation, Hemorrhoids Musculoskeletal: Yes (CHRONIC PAIN) Rheumatoid Arthritis, Chronic Back Pain Endocrine: Yes (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) Hypothyroidsim HEENT: Yes (GLASSES/CONTACTS) Loss of Vision: Denies Hearing Impairment: Denies Cancer: Yes (precancerous cells of ain) Psychosocial: Yes Sleep Difficulties, Anxiety, Depression Integumentary: No Blood Disorders: No Adverse Reaction/Blood Tranf: No (N/A) Family Medical History Asthma son CANC 19 MOTHER (CANCER OF GALLBLADDER AND UTERUS) Diabetes mellitus G8 SISTER FH: cancer Hypertension 19 FATHER Psychosocial problem G8 SISTER (ANXIETY) Thyroid disease 19 MOTHER (HYPERTHYROID) Physical Exam Vital Signs Vital Signs - First Documented 11/13/20 13:01 Pulse 73 Resp 16 B/P (MAP) 160/109 (126) Pulse Ox 98 O2 Delivery Room Air Capillary Refill : Less Than 3 Seconds Height, Weight, BMI Height: 5'8.00" Weight: 260lbs. 4.0oz. 118.852541yz; 36.00 BMI Method:Stated General Appearance: No Apparent Distress, WD/WN, Other (And oriented, makes poor eye contact, shaking of both hands.) Eyes: Bilateral Eye Normal Inspection, Bilateral Eye PERRL HEENT: PERRL/EOMI, TMs Normal Respiratory: No Accessory Muscle Use, No Respiratory Distress Cardiovascular: Regular Rate, Rhythm, Normal Peripheral Pulses Gastrointestinal: Normal Bowel Sounds, Non Tender, Soft Neurologic/Psychiatric: Alert, Oriented x3 Skin: Normal Color, Warm/Dry Progress/Results/Core Measures Suspected Sepsis Recent Fever Within 48 Hours: No Infection Criteria Present: None New/Unexplained Altered Menta: No Sepsis Screen: No Definite Risk SIRS Temperature: Pulse: 73 Respiratory Rate: 16 Blood Pressure 160 /109 Mean: 126 Results/Orders My Orders Orders - PHIL MARK APRN Ct Head Wo (11/13/20 13:10) Ketorolac Injection (Toradol Injection) (11/13/20 13:15) Prochlorperazine Injection (Compazine In (11/13/20 13:15) Diphenhydramine Injection (Benadryl Inje (11/13/20 13:15) Medications Given in ED Current Medications Medications Dose Ordered Sig/Narinder Route Start Time Stop Time Status Last Admin Dose Admin Diphenhydramine HCl 25 mg ONCE ONCE IM 11/13/20 13:15 11/13/20 13:16 DC 11/13/20 13:41 25 MG Ketorolac Tromethamine 60 mg ONCE ONCE IM 11/13/20 13:15 11/13/20 13:16 DC 11/13/20 13:41 60 MG Prochlorperazine Edisylate 10 mg ONCE ONCE IM 11/13/20 13:15 11/13/20 13:16 DC 11/13/20 13:41 10 MG Vital Signs/I&O 11/13/20 13:01 Pulse 73 Resp 16 B/P (MAP) 160/109 (126) Pulse Ox 98 O2 Delivery Room Air Capillary Refill : Less Than 3 Seconds Blood Pressure Mean: 126 Departure Impression Primary Impression: Migraine variant Disposition: HOME, SELF-CARE Condition: Stable Departure-Patient Inst. Decision time for Depature: 13:47 Referrals: RITA KIMBROUGH (PCP/Family) Primary Care Physician Patient Instructions: Migraines in Adults Add. Discharge Instructions: All discharge instructions reviewed with patient and/or family. Voiced understanding. PHIL MARK APRN Nov 13, 2020 13:23
--- NOTE | 2020-11-13 13:54 | Diagnostic Imaging Report ---
INDICATION: Tongue swelling, headache, and shakiness. TECHNIQUE: Multiple contiguous axial images were obtained through the brain without the use of intravenous contrast. Auto Exposure Controls were utilized during the CT exam to meet ALARA standards for radiation dose reduction. COMPARISON: 04/26/2020. FINDINGS: There are no extra-axial fluid collections. No intracranial hemorrhage. No intracranial mass effect or midline shift. The ventricles are normal in size and position. There are no acute parenchymal abnormalities in the brain. The calvarial windows are unremarkable. The patient's known pituitary lesion seen on the MRI study is not visible on the noncontrast CT study. IMPRESSION: No acute intracranial abnormality. Dictated by: Dictated on workstation # [id number]
[2020-11-13 14:07] VITALS: BP 142/100
== END 2020-11-13 14:07 | disposition home or self-care (01) ==
LOC: EDUNIT# 12:40 → ER 12:43
DX: G43.809 Other migraine, not intractable, without status migrainosus (principal); E03.9 Hypothyroidism, unspecified; F17.210 Nicotine dependence, cigarettes, uncomplicated; Z88.0 Allergy status to penicillin; Z88.1 Allergy status to other antibiotic agents; Z88.2 Allergy status to sulfonamides; Z88.8 Allergy status to other drugs, medicaments and biological substances; Z82.49 Family history of ischemic heart disease and other diseases of the circulatory system; Z80.9 Family history of malignant neoplasm, unspecified; Z83.3 Family history of diabetes mellitus; Z79.890 Hormone replacement therapy
CPT/HCPCS: 70450

== ENCOUNTER → 2020-11-17 | Outpatient (CLI) | payer MEDICAID ==
--- NOTE | 2020-11-17 13:59 | Diagnostic Imaging Report ---
INDICATION: Bilateral breast densities. Patient presents for additional views. COMPARISON: Correlation is made with the screening study from 11/06/2020. TECHNIQUE: 2D and 3D bilateral diagnostic mammography was performed with CAD. Spot compression CC and ML views as well as conventional 90 degrees lateral views were performed. FINDINGS: There are some persistent nodular densities in the upper and outer aspect of the right and left breast approximately 10-12 cm from the nipple. No suspicious calcifications are seen. IMPRESSION: Additional views show some persistent nodular densities in the upper and outer aspects of both breasts, as described. Further evaluation of these areas with ultrasound is recommended and will be performed today. ACR BI-RADS Category 0: Incomplete. (Needs additional imaging evaluation). Result letter will be mailed to the patient. Note: At least 10% of breast cancer is not imaged by mammography. Dictated by: Dictated on workstation # [id number]
--- NOTE | 2020-11-17 14:43 | Diagnostic Imaging Report ---
INDICATION: Nodular densities upper outer aspects of both breasts. CORRELATION is made with diagnostic mammogram earlier the same day as well as screening mammogram from 11/06/2020. Sonographic interrogation upper outer aspects of both breasts was performed. No abnormality in the upper outer right breast is identified to account for the mammographic density. On the left, there is a hypoechoic nodule at the 12:30 location, 9 cm from the nipple measuring 7 mm x 4 mm x 5 mm. This has benign features. There is also mild ductal dilatation at 3:00 location measuring 9 mm x 3 x 4 mm. No concerning sonographic abnormality is identified. IMPRESSION: BI-RADS Category 3 No sonographic abnormality in the right breast is identified. There are benign-appearing nodules in the left breast, as described. It is uncertain if these account for the mammographic abnormalities. Follow-up bilateral diagnostic mammography in 6 months is recommended to show continued stability. ACR BI-RADS Category 3: Probably benign findings. Result letter will be mailed to the patient. Note: At least 10% of breast cancer is not imaged by mammography. Dictated by: Dictated on workstation # [id number]
== END ==
LOC: RAD 13:11
PROVIDERS: ATTEND Obstetrics & Gynecology
DX: N63.21 Unspecified lump in the left breast, upper outer quadrant (principal); R92.2 Inconclusive mammogram
CPT/HCPCS: 76642; 77066; G0279; 77062

== ENCOUNTER 2020-11-21 14:53 | Observation (INO) | payer MEDICAID ==
[~2020-11-21] VITALS: Ht 172.7 cm; Wt 112.0 kg
--- NOTE | 2020-11-21 15:27 | ED General ---
General Chief Complaint: General Problems/Pain Stated Complaint: SEIZURES Source of Information: Patient Exam Limitations: No Limitations (CURTIS MCINTOSH MD) History of Present Illness Date Seen by Provider: Nov 21, 2020 Time Seen by Provider: 15:05 Initial Comments Patient is a 35-year-old female who presents to the emergency department today with a chief complaint of tremors/"seizures". Patient states that she has had these off and on over the past 2 to 3 months. She was recently diagnosed with a nonoperable pituitary adenoma/microadenoma. She has been evaluated by ne urosurgery at . This is something that will be followed yearly with MRIs. She has normal endocrine function of her pituitary at this point according to medical records. Patient states over the past couple of days she has had multiple episodes lasting from 2 to 3 minutes at the shortest time to 15 minutes at the longest time. Patient states that she maintains consciousness when she has this jerking all over her body. She states it is followed by a headache. Patient states in the last 3 weeks she has lost about 33 lbs. She has had poor appetite nausea and vomiting and dizziness. Patient states that her thyroid specifically is normal at this point. No recent illnesses. No fevers, chills, cough or congestion. No current vomiting or diarrhea. No urinary complaints or vaginal discharge. She has not injured herself today with a tremulous episode. On further questioning the patient does endorse depression. She has had passive suicidal ideation without a plan. Patient denies that she has access to anything with which to hurt her self at home. She does seem very hopeless, does not maintain eye contact. She is tearful. All other review of systems reviewed and negative except as stated above. Severity: Moderate (CURTIS MCINTOSH MD) Allergies and Home Medications Allergies Coded Allergies: Bacitracin Zinc (Unverified Allergy, Intermediate, HIVES, RESP PROBLMEMS, 07/09/17) Penicillins (Unverified Allergy, Intermediate, RASH,, 07/09/17) bacitracin (Unverified Allergy, Intermediate, HIVES, RESP PROBLMEMS, 07/09/17) gramicidin D (Unverified Allergy, Intermediate, HIVES, RESP PROBLMEMS, 07/09/17) methylprednisolone sod succ (Unverified Allergy, Intermediate, RESP DIFFICULTY, 07/09/17) neomycin sulfate (Unverified Allergy, Intermediate, HIVES, RESP PROBLMEMS, 07/09/17) polymyxin B (Unverified Allergy, Intermediate, HIVES, RESP PROBLMEMS, 07/09/17) polymyxin B sulfate (Unverified Allergy, Intermediate, HIVES, RESP PROBLMEMS, 07/09/17) sulfamethoxazole (Verified Allergy, Unknown, Hives, 04/25/20) trimethoprim (Verified Allergy, Unknown, Hives, 04/25/20) Metronidazole HCl (Unverified Adverse Reaction, Mild, N/V, 07/09/17) metronidazole (Unverified Adverse Reaction, Mild, N/V, 07/09/17) Home Medications Butalb/Acetaminophen/Caffeine 1 Each Tablet, 1-2 EACH PO Q6 Prescribed by: ALFRED GARCIA on 04/26/202121 Levothyroxine Sodium 125 Mcg Tablet, 250 MCG PO DAILY, (Reported) Levothyroxine Sodium 25 Mcg Tablet, 25 MG PO DAILY, (Reported) Nitrofurantoin Monohyd/M-Cryst 100 Mg Capsule, 1 TAB PO BID Prescribed by: ALFRED GARCIA on 04/26/202124 Ondansetron 8 Mg Tab.rapdis, 8 MG PO Q6H Prescribed by: ALFRED GARCIA on 04/26/202121 Pantoprazole Sodium 40 Mg Tablet.dr, 40 MG PO DAILY Prescribed by: NIMESH CARRASCO on 05/01/20 09 Scopolamine 1 Each Patch.td72, 1 EACH TD Q72H Prescribed by: ALFRED GARCIA on 04/26/202121 Sucralfate 1 Gm Tablet, 1 GM PO ACHS Prescribed by: NIMESH CARRASCO on 05/01/20 09 Patient Home Medication List Home Medication List Reviewed: Yes (CURTIS MCINTOSH MD) Review of Systems Review of Systems Constitutional: see HPI EENTM: no symptoms reported Respiratory: no symptoms reported Cardiovascular: no symptoms reported Gastrointestinal: diarrhea, nausea, vomiting Genitourinary: no symptoms reported Musculoskeletal: no symptoms reported Skin: no symptoms reported Psychiatric/Neurological: Headache (CURTIS MCINTOSH MD) All Other Systems Reviewed Negative Unless Noted: Yes (CURTIS MCINTOSH MD) Past Eaiwdad-Ihppht-Yfbuik Hx Patient Social History Alcohol Use: Denies Use Drug of Choice: marijuana Smoking Status: Current Everyday Smoker Type Used: Cigarettes 2nd Hand Smoke Exposure: Yes Recent Hopitalizations: No (CURTIS MCINTOSH MD) Immunizations Up To Date Tetanus Booster (TDap): More than 5yrs Date of Pneumonia Vaccine: December 28, 2012 Date of Influenza Vaccine: Apr 18, 2011 (CURTIS MCINTOSH MD) Seasonal Allergies Seasonal Allergies: Yes (CURTIS MCINTOSH MD) Past Medical History Surgeries: Yes (HYST/LSO;OVARIAN CYSTS;BILAT KNEE SCOPES/SHOULDER SCOPES/CT R;VULVAR SURG) Gallbladder, 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, Orthopedic, 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 Respiratory: Yes Asthma Currently Using CPAP: No Currently Using BIPAP: No Cardiac: Yes (HX PERICARDIAL EFFUSION, HEART CATH-CLEAR) Rheumatic Fever Neurological: Yes (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, pituitary adenoma) Headaches /Migraines, Neuropathy 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 Disorders: Yes Female 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 Disorders: Menstrual Problems, 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, 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 Sexually Transmitted Disease: No ( ) HIV/AIDS: No Genitourinary: No Gastrointestinal: Yes Chronic Constipation, Hemorrhoids Musculoskeletal: Yes (CHRONIC PAIN) Rheumatoid Arthritis, Chronic Back Pain Endocrine: Yes (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) Hypothyroidsim HEENT: Yes (GLASSES/CONTACTS) Loss of Vision: Denies Hearing Impairment: Denies Cancer: Yes (precancerous cells of ain) Psychosocial: Yes Sleep Difficulties, Anxiety, Depression Integumentary: No Blood Disorders: No Adverse Reaction/Blood Tranf: No (N/A) (CURTIS MCINTOSH MD) Family Medical History Asthma son CANC 19 MOTHER (CANCER OF GALLBLADDER AND UTERUS) Diabetes mellitus G8 SISTER FH: cancer Hypertension 19 FATHER Psychosocial problem G8 SISTER (ANXIETY) Thyroid disease 19 MOTHER (HYPERTHYROID) Physical Exam Vital Signs Vital Signs - First Documented 11/21/20 15:00 Temp 36.9 Pulse 63 Resp 18 B/P (MAP) 148/95 (112) Pulse Ox 96 (PHIL MARK APRN) Vital Signs Capillary Refill : (CURTIS MCINTOSH MD) Height, Weight, BMI Height: 5'8.00" Weight: 260lbs. 4.0oz. [id number]; 36.00 BMI Method:Stated General Appearance: No Apparent Distress, WD/WN HEENT: PERRL/EOMI, Normal ENT Inspection Neck: Normal Inspection Respiratory: Lungs Clear, Normal Breath Sounds, No Accessory Muscle Use, No Respiratory Distress Cardiovascular: Regular Rate, Rhythm Gastrointestinal: Non Tender, Soft Extremity: Normal Capillary Refill, Normal Inspection, Normal Range of Motion, No Pedal Edema Neurologic/Psychiatric: Alert, Oriented x3, No Motor/Sensory Deficits, Normal Mood/Affect, Depressed Affect Skin: Normal Color, Warm/Dry (CURTIS MCINTOSH MD) Progress/Results/Core Measures Suspected Sepsis SIRS Temperature: Pulse: Respiratory Rate: Laboratory Tests 11/21/20 15:05: White Blood Count 6.6 Blood Pressure / Mean: Laboratory Tests 11/21/20 15:05: Creatinine 0.84, Platelet Count 251, Total Bilirubin 0.5 (CURTIS MCINTOSH MD) Results/Orders Lab Results Laboratory Tests Test 11/21/20 15:05 11/21/20 15:25 Range/Units White Blood Count 6.6 4.3-11.0 10^3/uL Red Blood Count 4.56 3.80-5.11 10^6/uL Hemoglobin 14.6 11.5-16.0 g/dL Hematocrit 43 35-52 % Mean Corpuscular Volume 95 80-99 fL Mean Corpuscular Hemoglobin 32 25-34 pg Mean Corpuscular Hemoglobin Concent 34 32-36 g/dL Red Cell Distribution Width 13.0 10.0-14.5 % Platelet Count 251 130-400 10^3/uL Mean Platelet Volume 10.6 9.0-12.2 fL Immature Granulocyte % (Auto) 0 % Neutrophils (%) (Auto) 62 42-75 % Lymphocytes (%) (Auto) 29 12-44 % Monocytes (%) (Auto) 8 0-12 % Eosinophils (%) (Auto) 1 0-10 % Basophils (%) (Auto) 1 0-10 % Neutrophils # (Auto) 4.0 1.8-7.8 X 10^3 Lymphocytes # (Auto) 1.9 1.0-4.0 X 10^3 Monocytes # (Auto) 0.5 0.0-1.0 X 10^3 Eosinophils # (Auto) 0.1 0.0-0.3 10^3/uL Basophils # (Auto) 0.1 0.0-0.1 10^3/uL Immature Granulocyte # (Auto) 0.0 0.0-0.1 10^3/uL Sodium Level 140 135-145 MMOL/L Potassium Level 3.3 L 3.6-5.0 MMOL/L Chloride Level 108 H 98-107 MMOL/L Carbon Dioxide Level 22 21-32 MMOL/L Anion Gap 10 5-14 MMOL/L Blood Urea Nitrogen 12 7-18 MG/DL Creatinine 0.84 0.60-1.30 MG/DL Estimat Glomerular Filtration Rate > 60 BUN/Creatinine Ratio 14 Glucose Level 89 70-105 MG/DL Calcium Level 9.3 8.5-10.1 MG/DL Corrected Calcium 9.0 8.5-10.1 MG/DL Total Bilirubin 0.5 0.1-1.0 MG/DL Aspartate Amino Transf (AST/SGOT) 15 5-34 U/L Alanine Aminotransferase (ALT/SGPT) 19 0-55 U/L Alkaline Phosphatase 73 40-136 U/L Total Protein 7.1 6.4-8.2 GM/DL Albumin 4.4 3.2-4.5 GM/DL Salicylates Level < 5.0 L 5.0-20.0 MG/DL Acetaminophen Level < 10 L 10-30 UG/ML Serum Alcohol < 10 <10 MG/DL Urine Opiates Screen NEGATIVE NEGATIVE Urine Oxycodone Screen NEGATIVE NEGATIVE Urine Methadone Screen NEGATIVE NEGATIVE Urine Propoxyphene Screen NEGATIVE NEGATIVE Urine Barbiturates Screen NEGATIVE NEGATIVE Ur Tricyclic Antidepressants Screen NEGATIVE NEGATIVE Urine Phencyclidine Screen NEGATIVE NEGATIVE Urine Amphetamines Screen NEGATIVE NEGATIVE Urine Methamphetamines Screen NEGATIVE NEGATIVE Urine Benzodiazepines Screen NEGATIVE NEGATIVE Urine Cocaine Screen NEGATIVE NEGATIVE Urine Cannabinoids Screen POSITIVE H NEGATIVE (PHIL MARK APRN) My Orders Orders - PHIL MARK APRN Ekg Tracing (11/21/20 18:23) (PHIL MARK APRN) Medications Given in ED Current Medications Medications Dose Ordered Sig/Narinder Route Start Time Stop Time Status Last Admin Dose Admin Ketorolac Tromethamine 15 mg ONCE ONCE IVP 11/21/20 15:45 11/21/20 15:46 DC 11/21/20 15:42 15 MG Lorazepam 0.5 mg ONCE PRN IVP 11/21/20 15:45 11/21/20 15:42 0.5 MG Ondansetron HCl 4 mg ONCE ONCE IVP 11/21/20 15:45 11/21/20 15:46 DC 11/21/20 15:41 4 MG (PHIL MARK APRN) Vital Signs/I&O 11/21/20 15:00 Temp 36.9 Pulse 63 Resp 18 B/P (MAP) 148/95 (112) Pulse Ox 96 (PHIL MARK APRN) Vital Signs/I&O Capillary Refill : (CURTIS MCINTOSH MD) Progress Note : Time: 16:05 Progress Note Patient states that she was taking Vraylar for a short period of time, but that it was for "headaches", She has been off of that medication in 2020. I spoke with the save line and they will do a formal screening after 5pm today. 1610 Patient's Mom arrives in the ER and states that [place] had sent her texts stating "I wonder how many of these propranolol will stop my heart. I guess we will see" and "Im going to end this shit." "tell my boys I love them". So we have advised mom to find the bottle of propranolol and count them. She will be going to do that for us. we will contact Poison control regarding the over dose. [facility] will interview at 5:15 patient's HR 57 and BP good. I did talk to the patient about going voluntarily into a psych facility and she said she would not. She talked to her mother about going outpatient. we'll see what [facility] says (CURTIS MCINTOSH MD) ECG Initial ECG Impression Date: Nov 21, 2020 Initial ECG Impression Time: 15:40 Initial ECG Rate: 61 Initial ECG Rhythm: Normal Sinus Initial ECG Intervals: Normal Initial ECG Impression: Normal Initial ECG Comparisson: No Previous ECG Available (CURTIS MCINTOSH MD) Departure Communication (Admissions) 1823-I taken over care of the patient. Within the past 20 to 30 minutes her heart rate has dropped to a low of 41 sinus rhythm. Blood pressure to a low of 125/84. Given her body habitus the bradycardia cannot be attributed to physical fitness and is likely an effect of the propranolol. Perhaps she took this later than initially stated as she is just now starting to show symptoms. Will admit to ICU, as needed glucagon and atropine. Mental health consult in the morning. She remains alert mentating well. (PHIL MARK APRN) Impression Primary Impression: Intentional propranolol overdose Qualified Codes: T44.7X2A - Poisoning by beta-adrenoreceptor antagonists, i ntentional self-harm, initial encounter Additional Impression: Coarse tremors Disposition: ADMITTED INPATIENT Condition: Stable Admissions Decision to Admit Reason: Admit from ER (General) Decision to Admit/Date: Nov 21, 2020 Time/Decision to Admit Time: 18:24 (PHIL MARK APRN) Departure-Patient Inst. Referrals: RITA KIMBROUGH (PCP/Family) Primary Care Physician CURTIS MCINTOSH MD Nov 21, 2020 15:27 PHIL MARK APRN Nov 21, 2020 18:25
[2020-11-21 15:28] LABS: BASOPHILS # (AUTO) 0.1 10^3/uL (0.0-0.1); BASOPHILS % (AUTO) 1 % (0-10); EOSINOPHILS # (AUTO) 0.1 10^3/uL (0.0-0.3); EOSINOPHILS % (AUTO) 1 % (0-10); HEMATOCRIT 43 % (35-52); HEMOGLOBIN 14.6 g/dL (11.5-16.0); LYMPHOCYTES # (AUTO) 1.9 X 10^3 (1.0-4.0); LYMPHOCYTES % (AUTO) 29 % (12-44); MEAN CORPUSCULAR HEMOGLOBIN 32 pg (25-34); MEAN CORPUSCULAR HGB CONC 34 g/dL (32-36); MEAN CORPUSCULAR VOLUME 95 fL (80-99); MEAN PLATELET VOLUME 10.6 fL (9.0-12.2); MONOCYTES # (AUTO) 0.5 X 10^3 (0.0-1.0); MONOCYTES % (AUTO) 8 % (0-12); NEUTROPHILS % (AUTO) 62 % (42-75); PLATELET COUNT 251 10^3/uL (130-400); WHITE BLOOD COUNT 6.6 10^3/uL (4.3-11.0)
[2020-11-21 15:31] LABS: CHLORIDE 108 MMOL/L (98-107); POTASSIUM 3.3 MMOL/L (3.6-5.0); SODIUM 140 MMOL/L (135-145)
[2020-11-21 15:32] LABS: ALBUMIN 4.4 GM/DL (3.2-4.5)
[2020-11-21 15:33] LABS: CALCIUM 9.3 MG/DL (8.5-10.1)
[2020-11-21 15:34] LABS: GLUCOSE 89 MG/DL (70-105); TOTAL PROTEIN 7.1 GM/DL (6.4-8.2)
[2020-11-21 15:35] LABS: CARBON DIOXIDE 22 MMOL/L (21-32)
[2020-11-21 15:36] LABS: BILIRUBIN,TOTAL 0.5 MG/DL (0.1-1.0)
[2020-11-21 15:38] LABS: ALKALINE PHOSPHATASE 73 U/L (40-136); CREATININE SERUM 0.84 MG/DL (0.60-1.30); GFR ESTIMATED > 60
[2020-11-21 15:39] LABS: BUN/CREATININE RATIO 14
[2020-11-21 15:41] LABS: ALANINE AMINOTRANSFERASE 19 U/L (0-55); SALICYLATE < 5.0 MG/DL (5.0-20.0)
[2020-11-21 15:44] LABS: ACETAMINOPHEN < 10 UG/ML (10-30)
[2020-11-21] MEDS ORDERED: LORazepam INJ 2 MG/ML (ATIVAN) VIAL IVP PRN (15:45)
[2020-11-21] MEDS ORDERED: KETOROLAC 30 MG/ML VIAL IVP ONE (15:45)
[2020-11-21] MEDS ORDERED: ONDANSETRON 4 MG/2 ML (SDV) Z0FRAN IVP ONE (15:45)
[2020-11-21 15:46] LABS: AMPHETAMINE SCREEN, URINE NEGATIVE (NEGATIVE); BARBITURATE SCREEN URINE NEGATIVE (NEGATIVE); BENZODIAZEPINES SCREEN URINE NEGATIVE (NEGATIVE); CANNABINOID SCREEN, URINE POSITIVE (NEGATIVE); COCAINE SCREEN URINE NEGATIVE (NEGATIVE); METHADONE STAT NEGATIVE (NEGATIVE); METHAMPHETAMINE SCREEN URINE S NEGATIVE (NEGATIVE); OPIATE SCREEN URINE NEGATIVE (NEGATIVE); OXYCODONE STAT NEGATIVE (NEGATIVE); PROPOXYPHENE STAT NEGATIVE (NEGATIVE); TRICYCLIC ANTIDEPRESSANTS SCRE NEGATIVE (NEGATIVE)
[2020-11-21] MEDS ORDERED: LACTATED RINGERS 1,000 ML IV ONE (19:36)
[2020-11-21] MEDS ORDERED: ATROPINE INJECTION 1 MG/10 ML SYR (ABBOTT) IV PRN (19:45)
[2020-11-21] MEDS ORDERED: CATHETER FLUSH 10 ML SYR IV PRN (19:45)
[2020-11-21] MEDS ORDERED: GLUCAGON EMERGENCY 1 MG/KIT IV PRN (19:45)
[2020-11-21] MEDS ORDERED: PROP10TA8 PO (20:34)
[2020-11-21] MEDS ORDERED: AMLO2.5T2 PO (20:34)
[2020-11-21] MEDS: LACTATED RINGERS 1,000 ML IV SCH (20:35)
[2020-11-22 03:05] LABS: BASOPHILS % (AUTO) 1 % (0-10); EOSINOPHILS # (AUTO) 0.1 10^3/uL (0.0-0.3); EOSINOPHILS % (AUTO) 2 % (0-10); HEMATOCRIT 42 % (35-52); HEMOGLOBIN 13.9 g/dL (11.5-16.0); LYMPHOCYTES # (AUTO) 2.8 10^3/uL (1.0-4.0); LYMPHOCYTES % (AUTO) 39 % (12-44); MEAN CORPUSCULAR HEMOGLOBIN 32 pg (25-34); MEAN CORPUSCULAR HGB CONC 33 g/dL (32-36); MEAN CORPUSCULAR VOLUME 98 fL (80-99); MEAN PLATELET VOLUME 11.2 fL (9.0-12.2); MONOCYTES # (AUTO) 0.9 10^3/uL (0.0-1.0); MONOCYTES % (AUTO) 12 % (0-12); NEUTROPHILS # (AUTO) 3.4 10^3/uL (1.8-7.8); NEUTROPHILS % (AUTO) 47 % (42-75); PLATELET COUNT 208 10^3/uL (130-400); WHITE BLOOD COUNT 7.2 10^3/uL (4.3-11.0)
[2020-11-22] MEDS: LACTATED RINGERS 1,000 ML IV SCH ×4 (03:14→22:21)
[2020-11-22 03:18] LABS: CHLORIDE 108 MMOL/L (98-107); POTASSIUM 3.3 MMOL/L (3.6-5.0); SODIUM 144 MMOL/L (135-145)
[2020-11-22 03:19] LABS: CALCIUM 8.8 MG/DL (8.5-10.1)
[2020-11-22 03:20] LABS: GLUCOSE 84 MG/DL (70-105)
[2020-11-22 03:21] LABS: CARBON DIOXIDE 22 MMOL/L (21-32)
[2020-11-22 03:23] LABS: CREATININE SERUM 0.96 MG/DL (0.60-1.30); GFR ESTIMATED > 60; PHOSPHORUS 4.1 MG/DL (2.3-4.7)
[2020-11-22 03:24] LABS: BUN/CREATININE RATIO 18
[2020-11-22 03:26] LABS: MAGNESIUM 2.1 MG/DL (1.6-2.4)
[2020-11-22] MEDS ORDERED: POTASSIUM CL 10MEQ/50ML IVPB 200 ML IV ONE (04:13)
[2020-11-22] MEDS ORDERED: IBUPROFEN TABLET 200 MG TAB PO ONE (04:13)
[2020-11-22] MEDS ORDERED: IBUPROFEN TABLET 200 MG TAB PO PRN (04:15)
--- NOTE | 2020-11-22 04:18 | Pulmonary Consultation ---
History of Present Illness History of Present Illness Date Seen by Provider: Nov 22, 2020 Time Seen by Provider: 04:12 Date of Admission Allergies and Home Medications Allergies Coded Allergies: Bacitracin Zinc (Unverified Allergy, Intermediate, HIVES, RESP PROBLMEMS, 07/09/17) Penicillins (Unverified Allergy, Intermediate, RASH,, 07/09/17) bacitracin (Unverified Allergy, Intermediate, HIVES, RESP PROBLMEMS, 07/09/17) gramicidin D (Unverified Allergy, Intermediate, HIVES, RESP PROBLMEMS, 07/09/17) methylprednisolone sod succ (Unverified Allergy, Intermediate, RESP DIFFICULTY, 07/09/17) neomycin sulfate (Unverified Allergy, Intermediate, HIVES, RESP PROBLMEMS, 07/09/17) polymyxin B (Unverified Allergy, Intermediate, HIVES, RESP PROBLMEMS, 07/09/17) polymyxin B sulfate (Unverified Allergy, Intermediate, HIVES, RESP PROBLMEMS, 07/09/17) sulfamethoxazole (Verified Allergy, Unknown, Hives, 04/25/20) trimethoprim (Verified Allergy, Unknown, Hives, 04/25/20) Metronidazole HCl (Unverified Adverse Reaction, Mild, N/V, 07/09/17) metronidazole (Unverified Adverse Reaction, Mild, N/V, 07/09/17) Home Medications Amlodipine Besylate 2.5 Mg Tablet, 2.5 MG PO DAILY, (Reported) Butalb/Acetaminophen/Caffeine 1 Each Tablet, 1-2 EACH PO Q6 Prescribed by: ALFRED GARCIA on 04/26/202121 Levothyroxine Sodium 125 Mcg Tablet, 250 MCG PO DAILY, (Reported) Levothyroxine Sodium 25 Mcg Tablet, 25 MG PO DAILY, (Reported) Nitrofurantoin Monohyd/M-Cryst 100 Mg Capsule, 1 TAB PO BID Prescribed by: ALFRED GARCIA on 04/26/202124 Ondansetron 8 Mg Tab.rapdis, 8 MG PO Q6H Prescribed by: ALFRED GARCIA on 04/26/202121 Pantoprazole Sodium 40 Mg Tablet.dr, 40 MG PO DAILY Prescribed by: NIMESH CARRASCO on 05/01/20904 Propranolol HCl 10 Mg Tablet, 10 MG PO BID, (Reported) Scopolamine 1 Each Patch.td72, 1 EACH TD Q72H Prescribed by: ALFRED GARCIA on 04/26/202121 Sucralfate 1 Gm Tablet, 1 GM PO ACHS Prescribed by: NIMESH CARRASCO on 05/01/20 0905 Past Ewgyzfx-Ymdvlh-Lepsun Hx Patient Social History Alcohol Use: Denies Use Drug of Choice: marijuana Smoking Status: Current Everyday Smoker Type Used: Cigarettes 2nd Hand Smoke Exposure: Yes Recent Infectious Disease Expo: No Recent Hopitalizations: No Have you traveled recently?: No Substance type: Marijuana Alcohol Use?: No Immunizations Up To Date Tetanus Booster (TDap): More than 5yrs Date of Pneumonia Vaccine: December 28, 2012 Date of Influenza Vaccine: Apr 18, 2011 Seasonal Allergies Seasonal Allergies: Yes Past Medical History Surgeries: Yes (HYST/LSO;OVARIAN CYSTS;BILAT KNEE SCOPES/SHOULDER SCOPES/CTR;VULVAR SURG) Gallbladder, 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, Orthopedic, 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 Respiratory: Yes Asthma Currently Using CPAP: No Currently Using BIPAP: No Cardiac: Yes (HX PERICARDIAL EFFUSION, HEART CATH-CLEAR) Rheumatic Fever Neurological: Yes (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, pituitary adenoma) Headaches /Migraines, Neuropathy 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 Disorders: Yes Female 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 Disorders: Menstrual Problems, 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, 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 Sexually Transmitted Disease: No ( ) HIV/AIDS: No Genitourinary: No Gastrointestinal: Yes Chronic Constipation, Hemorrhoids Musculoskeletal: Yes (CHRONIC PAIN) Rheumatoid Arthritis, Chronic Back Pain Endocrine: Yes (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) Hypothyroidsim HEENT: Yes (GLASSES/CONTACTS) Loss of Vision: Denies Hearing Impairment: Denies Cancer: Yes (precancerous cells of ain) Psychosocial: Yes Sleep Difficulties, Anxiety, Depression Integumentary: No Blood Disorders: No Adverse Reaction/Blood Tranf: No (N/A) Family Medical History Asthma son CANC 19 MOTHER (CANCER OF GALLBLADDER AND UTERUS) Diabetes mellitus G8 SISTER FH: cancer Hypertension 19 FATHER Psychosocial problem G8 SISTER (ANXIETY) Thyroid disease 19 MOTHER (HYPERTHYROID) Review of Systems Time Seen by Provider: 04:15 Sepsis Event Evaluation Height, Weight, BMI Height: 5'8.00" Weight: 260lbs. 4.0oz. [id number]; 36.94 BMI Method:Stated Exam Exam Vital Signs Date Time Temp Pulse Resp B/P (MAP) Pulse Ox O2 Delivery O2 Flow Rate FiO2 11/22/20 03:02 40 25 121/80 (94) 97 Room Air 11/22/20 02:00 47 17 126/75 (94) 94 Room Air 11/22/20 01:00 42 21 112/84 (98) 95 Room Air 11/22/20 01:00 42 11/22/20 00:00 47 21 123/81 (98) 95 Room Air 11/22/20 00:00 97 Room Air 11/21/20 23:59 35.9 11/21/20 23:00 47 19 119/73 (88) 95 Room Air 11/21/20 22:00 45 22 121/74 (90) 95 Room Air 11/21/20 21:00 43 22 126/86 (96) 97 Room Air 11/21/20 20:15 55 10 145/91 (110) 96 Room Air 11/21/20 20:00 52 15 136/88 (101) 95 Room Air 11/21/20 19:45 54 25 147/95 (117) 96 Room Air 11/21/20 19:30 Room Air 11/21/20 19:27 47 11/21/20 19:25 36.6 46 22 147/92 (110) 96 Room Air 11/21/20 19:17 51 16 155/98 97 Room Air 11/21/20 15:00 36.9 63 18 148/95 (112) 96 I & O 11/22/20 06:59 Intake Total 600 ml Output Total 200 ml Balance 400 ml Height & Weight Height: 5'8.00" Weight: 260lbs. 4.0oz. [id number]; 36.94 BMI Method:Stated General Appearance: No Apparent Distress, WD/WN HEENT: PERRL/EOMI, Normal ENT Inspection Neck: Normal Inspection Respiratory: Lungs Clear, Normal Breath Sounds, No Accessory Muscle Use, No Re spiratory Distress Cardiovascular: Regular Rate, Rhythm Capillary Refill: Less Than 3 Seconds Extremity: Normal Capillary Refill, Normal Inspection, Normal Range of Motion, No Pedal Edema Neurologic/Psychiatric: Alert, Oriented x3, No Motor/Sensory Deficits, Normal Mood/Affect, Depressed Affect Skin: Normal Color, Warm/Dry Results Lab Laboratory Tests 11/21/20 15:05 11/22/20 02:33 Assessment/Plan Assessment/Plan Intentional propranolol overdose/ Suicidal attempt -Glucagon -Atropine PRN -Behavioral health Bradycardia with hypertension -Continue to monitor Hypothyroid -Restart home synthroid CHAKA AVILES DO Nov 22, 2020 04:18
[2020-11-22] MEDS: KCL 20 MEQ TAB (K-DUR) PO SCH (04:23)
[2020-11-22] MEDS: MAGNESIUM 1 GM/100 ML IVPB 100 ML IV SCH (04:23)
[2020-11-22] MEDS: POTASSIUM CL 10MEQ/50ML IVPB 50 ML IV SCH ×6 (04:23→09:35)
--- NOTE | 2020-11-22 08:02 | Diagnostic Imaging Report ---
INDICATION: Overdose. Time of exam: 3:23 AM Correlation is made with prior exam from 07/11/2020. The heart size is normal. The pulmonary vascularity is unremarkable. The lungs are clear. No infiltrate, effusion or pneumothorax is detected. IMPRESSION: No acute cardiopulmonary process is detected. Dictated by: Dictated on workstation # [id number]
[2020-11-22] MEDS ORDERED: NAPR-915 PO (08:36)
[2020-11-22] MEDS ORDERED: HYDR25TA4 PO (08:36)
[2020-11-22] MEDS ORDERED: ESTR42.511 VG (08:36)
[2020-11-22] MEDS ORDERED: NARA2.5T2 PO (08:36)
[2020-11-22] MEDS ORDERED: AMLO-251 PO (08:36)
[2020-11-22] MEDS ORDERED: ACET-2267 PO (08:37)
--- NOTE | 2020-11-22 09:06 | History & Physical-Hospitalist ---
History of Present Illness HPI/Chief Complaint Pt is a 35yoCF with a PMH HTN, anxiety disorder, and depression who presented to the ER due to intentional propanolol overdose. She reports having an anxiety attack yesterday and then getting very depressed so she decided to overdose on propanolol. Per ER reports eh texted her mom asking how many it would take to stop her heart. Pt did not originally disclose this information her mother provided it to them. Patient only complained of the anxiety issues and "seizure like activity" on arrival here. Poison control was contacted and recommended observation overnight to monitor heart rate. HR dropped to the 20s overnight and she received glucagon per poison control recommendations. She reports just wanting to leave today and no other complaints. She does not endorse a plan to harm herself but she did intentionally overdose on propanolol and did not disclose it to us. Source: patient Date Seen 11/22/20 Time Seen by a Provider: 09:02 Attending Physician Suellen Mcnair MD PCP Deb Mc Referring Physician Date of Admission Nov 21, 2020 at 18:18 Home Medications & Allergies Home Medications Reviewed patient Home Medication Reconciliation performed by pharmacy medication reconciliations weed science research technician and/or nursing. Patients Allergies have been reviewed. Allergies Allergies Coded Allergies Bacitracin Zinc (Unverified Allergy, Intermediate, HIVES, RESP PROBLMEMS, 07/09/17) Penicillins (Unverified Allergy, Intermediate, RASH,, 07/09/17) bacitracin (Unverified Allergy, Intermediate, HIVES, RESP PROBLMEMS, 07/09/17) gramicidin D (Unverified Allergy, Intermediate, HIVES, RESP PROBLMEMS, 07/09/17) methylprednisolone sod succ (Unverified Allergy, Intermediate, RESP DIFFICULTY, 07/09/17) neomycin sulfate (Unverified Allergy, Intermediate, HIVES, RESP PROBLMEMS, 07/09/17) polymyxin B (Unverified Allergy, Intermediate, HIVES, RESP PROBLMEMS, 07/09/17 ) polymyxin B sulfate (Unverified Allergy, Intermediate, HIVES, RESP PROBLMEMS, 07/09/17) sulfamethoxazole (Verified Allergy, Unknown, Hives, 04/25/20) trimethoprim (Verified Allergy, Unknown, Hives, 04/25/20) Metronidazole HCl (Unverified Adverse Reaction, Mild, N/V, 07/09/17) metronidazole (Unverified Adverse Reaction, Mild, N/V, 07/09/17) Patient Social History Tobacco Use?: Yes Tobacco type used: Cigarettes Smoking Status: Current Everyday Smoker Use of E-Cig and/or Vaping dev: No Substance type: Marijuana Alcohol Use?: No Pt stated abuse/neglect: No Immunizations Up To Date Influenza Vaccine Up-to-Date: No; Not Current Hepatitis A: No Hepatitis B: No TB Skin Test: Negative Date of Pneumonia Vaccine: December 28, 2012 Current Status status: No status: No Do you have an Advance Directi: No Communicates: Verbally Primary Language: [place] Implanted or Applied Medical D: None Past Medical History Anxiety, Depression, HTN, pituitary microadenoma Review of Systems Constitutional: No chills, No fever EENTM: no symptoms reported Respiratory: no symptoms reported Cardiovascular: no symptoms reported Gastrointestinal: no symptoms reported Genitourinary: no symptoms reported Musculoskeletal: no symptoms reported Skin: no symptoms reported Psychiatric/Neurological: See HPI, Anxiety, Depressed Physical Exam Physical Exam Vital Signs Vital Signs - First Documented 11/21/20 11/21/20 15:00 19:17 Temp 36.9 Pulse 63 Resp 18 B/P (MAP) 148/95 (112) Pulse Ox 96 O2 Delivery Room Air Capillary Refill : Less Than 3 Seconds Height, Weight, BMI Height: 5'8.00" Weight: 260lbs. 4.0oz. 118.794455rw; 36.94 BMI Method:Stated General Appearance: No Apparent Distress, WD/WN, Obese HEENT: PERRL/EOMI, Moist Mucous Membranes Neck: Normal Inspection, Supple Respiratory: Lungs Clear, No Accessory Muscle Use, No Respiratory Distress Cardiovascular: No JVD, No Murmur, Bradycardia Gastrointestinal: Normal Bowel Sounds, Non Tender, Soft Extremity: No Calf Tenderness, No Pedal Edema Neurologic/Psychiatric: Alert, Oriented x3 Results Results/Procedures Labs Laboratory Tests 11/21/20 15:05 11/22/20 02:33 Patient resulted labs reviewed. Imaging: Reviewed Imaging Report Imaging [facility], [place] NAME: ANUJA CULP Pop [facility] REC#: [id number] PT STATUS: ADM Jesus : 1985 PHYSICIAN: SUELLEN MCNAIR MD ADMIT DATE: 11/21/20/ICU Draft Date of Exam:11/22/20 CHEST 1 VIEW, AP/PA ONLY INDICATION: Overdose. Time of exam: 3:23 AM Correlation is made with prior exam from 07/11/2020. The heart size is normal. The pulmonary vascularity is unremarkable. The lungs are clear. No infiltrate, effusion or pneumothorax is detected. IMPRESSION: No acute cardiopulmonary process is detected. Dictated on workstation # [id number] Dict: 11/22/20 0751 Trans: 11/22/20 0802 PETAR [id number] Interpreted by: GENE JOSEPH MD Electronically signed by: Assessment/Plan Admission Diagnosis Intentional suicide attempt by proponalol overdose Admission Status: Observation Assessment and Plan Intentional suicide attempt by proponalol overdose Hypokalemia HTN Bradycardia down to the 20s last night Received glucagon Cardiology consulted Monitor on telemetry Potassium replaced Hold antihypertensives as BP well controlled SAVE line to see patient THC use UDs positive for THC Recommend cessation Diagnosis/Problems Diagnosis/Problems (1) Essential (primary) hypertension (2) Hypokalemia (3) Suicide attempt by drug overdose (4) Pituitary adenoma (5) Intentional propranolol overdose Status: Acute Qualifiers: Encounter type: initial encounter Qualified Codes: T44.7X2A - Poisoning by beta-adrenoreceptor antagonists, intentional self-harm, initial encounter (6) Hypothyroidism Status: Acute SUELLEN MCNAIR MD Nov 22, 2020 09:06
[2020-11-22] MEDS ORDERED: KCL 20 MEQ TAB (K-DUR) PO ONE (09:45)
--- NOTE | 2020-11-22 10:21 | Consultation-Cardiology ---
HPI-Cardiology Cardiology Consultation Date of Consultation 11/22/20 Date of Admission Time Seen by Provider: 08:35 Indication: bradycardia [facility] Cardiology was consulted regarding bradycardia secondary to intentional overdose on propranolol. Ms. Acevedo is a 35-year-old female who presented to the ED for intentional overdose with propranolol. She states that she was having suicidal ideation due to extreme stress at home with her job, bills, and medical issues. She is on propranolol for blood pressure control and took an unknown number of pills. Today, she states she is not suicidal and denies any active plan. She has a history of anxiety and depression but is not currently taking medications at this time. Home Medications & Allergies Allergies: Coded Allergies: Bacitracin Zinc (Unverified Allergy, Intermediate, HIVES, RESP PROBLMEMS, 07/09/17) Penicillins (Unverified Allergy, Intermediate, RASH,, 07/09/17) bacitracin (Unverified Allergy, Intermediate, HIVES, RESP PROBLMEMS, 07/09/17) gramicidin D (Unverified Allergy, Intermediate, HIVES, RESP PROBLMEMS, 07/09/17) methylprednisolone sod succ (Unverified Allergy, Intermediate, RESP DIFFICULTY, 07/09/17) neomycin sulfate (Unverified Allergy, Intermediate, HIVES, RESP PROBLMEMS, 07/09/17) polymyxin B (Unverified Allergy, Intermediate, HIVES, RESP PROBLMEMS, 07/09/17) polymyxin B sulfate (Unverified Allergy, Intermediate, HIVES, RESP PROBLMEMS, 07/09/17) sulfamethoxazole (Verified Allergy, Unknown, Hives, 04/25/20) trimethoprim (Verified Allergy, Unknown, Hives, 04/25/20) Metronidazole HCl (Unverified Adverse Reaction, Mild, N/V, 07/09/17) metronidazole (Unverified Adverse Reaction, Mild, N/V, 07/09/17) Home Medication List Reviewed: Yes [id number] Hx Patient Social History Marital Status: Recreational Drug Use: Yes Drug of Choice: marijuana Smoking Status: Current Everyday Smoker Type Used: Cigarettes 2nd Hand Smoke Exposure: Yes Recent Hopitalizations: No Have you traveled recently?: No Alcohol Use?: No Substance type: Marijuana Immunizations Up To Date Tetanus Booster (TDap): More than 5yrs Date of Pneumonia Vaccine: December 28, 2012 Date of Influenza Vaccine: Apr 18, 2011 Past Medical History PMHx: HTN Pituitary adenoma with history of hemorrhage History of pericardial effusion Anxiety and depression Hypothyroidism PSHx: Bilateral knee laparoscopy Bilateral shoulder orthopedic procedures 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 Cholecystectomy Family Medical History Significant Family History: Heart Disease, Hypertension Family History: Asthma son CANC 19 MOTHER (CANCER OF GALLBLADDER AND UTERUS) Diabetes mellitus G8 SISTER FH: cancer Hypertension 19 FATHER Psychosocial problem G8 SISTER (ANXIETY) Thyroid disease 19 MOTHER (HYPERTHYROID) Review of Systems-General Review of Systems Constitutional: No chills, No fever EENTM: No blurred vision, No throat pain Respiratory: No cough, No short of breath Cardiovascular: No chest pain, No palpitations Gastrointestinal: No nausea, No vomiting Genitourinary: no symptoms reported : No Musculoskeletal: No joint pain, No muscle pain Skin: No dryness, No rash Psychiatric/Neurological: See HPI, Anxiety, Depressed All Other Systems Reviewed Negative Unless Noted: Yes Reviewed Test Results Reviewed Test Results Lab Laboratory Tests Test 11/21/20 15:05 11/21/20 15:25 11/21/20 18:49 11/21/20 20:03 Range/Units White Blood Count 6.6 4.3-11.0 10^3/uL Red Blood Count 4.56 3.80-5.11 10^6/uL Hemoglobin 14.6 11.5-16.0 g/dL Hematocrit 43 35-52 % Mean Corpuscular Volume 95 80-99 fL Mean Corpuscular Hemoglobin 32 25-34 pg Mean Corpuscular Hemoglobin Concent 34 32-36 g/dL Red Cell Distribution Width 13.0 10.0-14.5 % Platelet Count 251 130-400 10^3/uL Mean Platelet Volume 10.6 9.0-12.2 fL Immature Granulocyte % (Auto) 0 % Neutrophils (%) (Auto) 62 42-75 % Lymphocytes (%) (Auto) 29 12-44 % Monocytes (%) (Auto) 8 0-12 % Eosinophils (%) (Auto) 1 0-10 % Basophils (%) (Auto) 1 0-10 % Neutrophils # (Auto) 4.0 1.8-7.8 X 10^3 Lymphocytes # (Auto) 1.9 1.0-4.0 X 10^3 Monocytes # (Auto) 0.5 0.0-1.0 X 10^3 Eosinophils # (Auto) 0.1 0.0-0.3 10^3/uL Basophils # (Auto) 0.1 0.0-0.1 10^3/uL Immature Granulocyte # (Auto) 0.0 0.0-0.1 10^3/uL Sodium Level 140 135-145 MMOL/L Potassium Level 3.3 L 3.6-5.0 MMOL/L Chloride Level 108 H 98-107 MMOL/L Carbon Dioxide Level 22 21-32 MMOL/L Anion Gap 10 5-14 MMOL/L Blood Urea Nitrogen 12 7-18 MG/DL Creatinine 0.84 0.60-1.30 MG/DL Estimat Glomerular Filtration Rate > 60 BUN/Creatinine Ratio 14 Glucose Level 89 70-105 MG/DL Calcium Level 9.3 8.5-10.1 MG/DL Corrected Calcium 9.0 8.5-10.1 MG/DL Total Bilirubin 0.5 0.1-1.0 MG/DL Aspartate Amino Transf (AST/SGOT) 15 5-34 U/L Alanine Aminotransferase (ALT/SGPT) 19 0-55 U/L Alkaline Phosphatase 73 40-136 U/L Total Protein 7.1 6.4-8.2 GM/DL Albumin 4.4 3.2-4.5 GM/DL Salicylates Level < 5.0 L 5.0-20.0 MG/DL Acetaminophen Level < 10 L 10-30 UG/ML Serum Alcohol < 10 <10 MG/DL Urine Opiates Screen NEGATIVE NEGATIVE Urine Oxycodone Screen NEGATIVE NEGATIVE Urine Methadone Screen NEGATIVE NEGATIVE Urine Propoxyphene Screen NEGATIVE NEGATIVE Urine Barbiturates Screen NEGATIVE NEGATIVE Ur Tricyclic Antidepressants Screen NEGATIVE NEGATIVE Urine Phencyclidine Screen NEGATIVE NEGATIVE Urine Amphetamines Screen NEGATIVE NEGATIVE Urine Methamphetamines Screen NEGATIVE NEGATIVE Urine Benzodiazepines Screen NEGATIVE NEGATIVE Urine Cocaine Screen NEGATIVE NEGATIVE Urine Cannabinoids Screen POSITIVE H NEGATIVE Glucometer 84 95 70-110 MG/DL Test 11/21/20 21:01 11/21/20 22:06 11/22/20 02:33 11/22/20 12:00 Range/Units Glucometer 111 H 147 H 70-110 MG/DL White Blood Count 7.2 4.3-11.0 10^3/uL Red Blood Count 4.29 3.80-5.11 10^6/uL Hemoglobin 13.9 11.5-16.0 g/dL Hematocrit 42 35-52 % Mean Corpuscular Volume 98 80-99 fL Mean Corpuscular Hemoglobin 32 25-34 pg Mean Corpuscular Hemoglobin Concent 33 32-36 g/dL Red Cell Distribution Width 12.9 10.0-14.5 % Platelet Count 208 130-400 10^3/uL Mean Platelet Volume 11.2 9.0-12.2 fL Immature Granulocyte % (Auto) 0 % Neutrophils (%) (Auto) 47 42-75 % Lymphocytes (%) (Auto) 39 12-44 % Monocytes (%) (Auto) 12 0-12 % Eosinophils (%) (Auto) 2 0-10 % Basophils (%) (Auto) 1 0-10 % Neutrophils # (Auto) 3.4 1.8-7.8 10^3/uL Lymphocytes # (Auto) 2.8 1.0-4.0 10^3/uL Monocytes # (Auto) 0.9 0.0-1.0 10^3/uL Eosinophils # (Auto) 0.1 0.0-0.3 10^3/uL Basophils # (Auto) 0.0 0.0-0.1 10^3/uL Immature Granulocyte # (Auto) 0.0 0.0-0.1 10^3/uL Sodium Level 144 135-145 MMOL/L Potassium Level 3.3 L 3.6-5.0 MMOL/L Chloride Level 108 H 98-107 MMOL/L Carbon Dioxide Level 22 21-32 MMOL/L Anion Gap 14 5-14 MMOL/L Blood Urea Nitrogen 17 7-18 MG/DL Creatinine 0.96 0.60-1.30 MG/DL Estimat Glomerular Filtration Rate > 60 BUN/Creatinine Ratio 18 Glucose Level 84 70-105 MG/DL Calcium Level 8.8 8.5-10.1 MG/DL Phosphorus Level 4.1 2.3-4.7 MG/DL Magnesium Level 2.1 1.6-2.4 MG/DL Troponin I < 0.028 < 0.028 <0.028 NG/ML Physical Exam Physical Exam Vital Signs Vital Signs - First Documented 11/21/20 11/21/20 15:00 19:17 Temp 36.9 Pulse 63 Resp 18 B/P (MAP) 148/95 (112) Pulse Ox 96 O2 Delivery Room Air Capillary Refill : Less Than 3 Seconds Height, Weight, BMI Height: 5'8.00" Weight: 260lbs. 4.0oz. [id number]; 36.94 BMI Method:Stated General Appearance: No Apparent Distress, WD/WN, Obese HEENT: PERRL/EOMI, Moist Mucous Membranes Neck: Normal Inspection, Supple Respiratory: Lungs Clear, No Accessory Muscle Use, No Respiratory Distress Cardiovascular: No Murmur, Bradycardia Gastrointestinal: Normal Bowel Sounds, Non Tender, Soft Extremity: No Calf Tenderness, No Pedal Edema Neurologic/Psychiatric: Alert, Oriented x3 Skin: Normal Color, Warm/Dry A/P-Cardiology Admission Diagnosis Intentional suicide attempt with propranolol overdose Hypokalemia HTN Anxiety/depression THC use Assessment/Plan Asymptomatic sinus bradycardia, secondary to intentional suicide attempt with propranolol overdose. EKG revealed sinus bradycardia. Monitor electrolytes. Glucagon ordered. Monitor closely. Will need plan for therapies/treatment for anxiety/depression prior to discharge. Hypokalemia. Replacement and monitor closely. Hypertension, patient is unsure if she is supposed to be taking both lisinopril and norvasc with propranolol. Has been controlled with norvasc and propranolol alone at home. Currently not having hypertension due to overdose. Monitor closely and restart medications as indicated. Will not prescribe propranolol at this time due to recent suicidal ideation. History of chest pain, noncardiac related. LST was normal in 2016, but had ongoing CP. LHC performed by Dr. Green in 2016 revealed normal anatomy with no lesions seen. Echo in 2017 revealed EF of 60% with pericardial effusion that was reduced from prior imaging in 2016. Thank you for this consultation. Patient was seen and evaluated with Michael Mcqueen, medical student She is currently asymptomatic, laying down comfortably in bed, denies any chest pain, no shortness of breath. No palpitation Currently her blood pressure medications are on hold. We will continue monitoring blood pressure and restart her on lisinopril and amlodipine if needed We will continue monitor, no changes are recommended at this point Supervisory-Addendum Brief Verification & Attestation Participated in pt care: history, MDM, physical Personally performed: exam, history, MDM, supervision of care Care discussed with: Medical Student Procedures: n/a Results interpretation: Verified all documentation Verification and Attestation of Medical Student E/M Service A medical student performed and documented this service in my presence. I reviewed and verified all information documented by the medical student and made modifications to such information, when appropriate. I personally performed the physical exam and medical decision making. Hong Green, Nov 22, 2020,15:04 MICHAEL NICHOLS, Nov 22, 2020 10:21 am HONG GREEN MD Nov 22, 2020 3:04 pm
[2020-11-22] MEDS ORDERED: ACETAMINOPHEN 500 MG TAB (TYLENOL) PO PRN (11:15)
[2020-11-22] MEDS: KETOROLAC 30 MG/ML VIAL IVP PRN ×2 (13:56→20:22)
--- NOTE | 2020-11-23 03:18 | Pulmonary Progress Note ---
LACEY VALLE MED STUDENT 11/23/20 0318: Subjective Date Seen by a Provider: Nov 23, 2020 Time Seen by a Provider: 02:50 Subjective/Events-last exam Sleeping in bed, no complaints. Review of Systems General: No Chills, No Night Sweats, No Fatigue, No Malaise, No Appetite, No Other Pulmonary: No Dyspnea, No Cough, No Pleuritic Chest Pain, No Other Cardiovascular: No: Chest Pain, Palpitations, Orthopnea, Paroxysmal Noc. Dyspnea, Edema, Lt Headedness, Other Sepsis Event Evaluation Height, Weight, BMI Height: 5'8.00" Weight: 260lbs. 4.0oz. 118.223679dp; 36.94 BMI Method:Stated Exam Exam Vital Signs Date Time Temp Pulse Resp B/P (MAP) Pulse Ox O2 Delivery O2 Flow Rate FiO2 11/23/20 01:00 50 11/22/20 23:45 97 Room Air 11/22/20 23:43 36.6 11/22/20 23:00 53 21 156/116 (129) Room Air 11/22/20 22:00 43 22 175/115 (135) Room Air 11/22/20 21:00 47 23 Room Air 11/22/20 20:00 62 22 153/103 (120) Room Air 11/22/20 20:00 36.4 11/22/20 19:58 97 Room Air 11/22/20 19:00 52 11/22/20 19:00 45 14 155/111 (126) Room Air 11/22/20 18:00 44 36 Room Air 11/22/20 17:00 47 17 Room Air 11/22/20 16:00 49 36 98 Room Air 11/22/20 16:00 97 Room Air 11/22/20 16:00 36.3 11/22/20 15:00 55 15 151/111 (124) 98 Room Air 11/22/20 14:00 50 15 145/91 (109) 97 Room Air 11/22/20 13:00 42 21 143/104 (117) 95 Room Air 11/22/20 12:40 43 11/22/20 12:05 36.0 11/22/20 12:00 97 Room Air 11/22/20 12:00 44 13 130/85 (100) 95 Room Air 11/22/20 11:00 130/91 (104) 96 Room Air 11/22/20 10:00 51 20 97 Room Air 11/22/20 09:00 49 39 96 Room Air 11/22/20 08:24 43 11/22/20 08:00 36.0 11/22/20 08:00 97 Room Air 11/22/20 08:00 47 23 135/92 (106) 97 Room Air 11/22/20 07:00 44 22 136/94 (108) 95 Room Air 11/22/20 06:00 48 18 148/95 (112) 95 Room Air 11/22/20 05:00 44 130/89 (103) 95 Room Air 11/22/20 04:00 35.9 11/22/20 04:00 97 Room Air 11/22/20 04:00 40 26 141/91 (108) 96 Room Air I & O 11/23/20 07:00 Intake Total 2985 ml Output Total 4250 ml Balance -1265 ml Height & Weight Height: 5'8.00" Weight: 260lbs. 4.0oz. 118.132345sg; 36.94 BMI Method:Stated General Appearance: No Apparent Distress, WD/WN, Obese HEENT: PERRL/EOMI, Moist Mucous Membranes Neck: Normal Inspection, Supple Respiratory: Lungs Clear, Normal Breath Sounds, No Accessory Muscle Use, No Respiratory Distress Cardiovascular: No Murmur, Bradycardia Capillary Refill: Less Than 3 Seconds Extremity: No Calf Tenderness, No Pedal Edema Neurologic/Psychiatric: Alert, Oriented x3 Skin: Normal Color, Warm/Dry Results Lab Laboratory Tests 11/21/20 15:05 11/22/20 02:33 Assessment/Plan Assessment/Plan Intentional propranolol overdose/ Suicidal attempt -Glucagon -Atropine PRN -Behavioral health Bradycardia with hypertension -Continue to monitor -Cardiology following Hypothyroid -Restarted on home synthroid CHAKA AVILES DO 11/23/20 0424: Assessment/Plan Assessment/Plan Intentional propranolol overdose/ Suicidal attempt -Glucagon -Atropine PRN -Behavioral health Bradycardia with hypertension -Continue to monitor -Cardiology following Hypothyroid -Restarted on home synthroid LACEY VALLE MED STUDENT Nov 23, 2020 03:18 CHAKA AVILES DO Nov 23, 2020 04:24
[2020-11-23 03:32] LABS: BASOPHILS # (AUTO) 0.1 10^3/uL (0.0-0.1); BASOPHILS % (AUTO) 1 % (0-10); EOSINOPHILS # (AUTO) 0.1 10^3/uL (0.0-0.3); EOSINOPHILS % (AUTO) 2 % (0-10); HEMATOCRIT 43 % (35-52); HEMOGLOBIN 14.1 g/dL (11.5-16.0); LYMPHOCYTES # (AUTO) 2.7 10^3/uL (1.0-4.0); LYMPHOCYTES % (AUTO) 40 % (12-44); MEAN CORPUSCULAR HEMOGLOBIN 32 pg (25-34); MEAN CORPUSCULAR HGB CONC 33 g/dL (32-36); MEAN CORPUSCULAR VOLUME 97 fL (80-99); MEAN PLATELET VOLUME 11.7 fL (9.0-12.2); MONOCYTES # (AUTO) 0.6 10^3/uL (0.0-1.0); MONOCYTES % (AUTO) 9 % (0-12); NEUTROPHILS # (AUTO) 3.3 10^3/uL (1.8-7.8); NEUTROPHILS % (AUTO) 49 % (42-75); PLATELET COUNT 212 10^3/uL (130-400); WHITE BLOOD COUNT 6.7 10^3/uL (4.3-11.0)
[2020-11-23 04:03] LABS: BUN/CREATININE RATIO 14; CARBON DIOXIDE 23 MMOL/L (21-32); CHLORIDE 105 MMOL/L (98-107); CREATININE SERUM 0.77 MG/DL (0.60-1.30); GFR ESTIMATED > 60; GLUCOSE 83 MG/DL (70-105); MAGNESIUM 1.9 MG/DL (1.6-2.4); PHOSPHORUS 3.3 MG/DL (2.3-4.7); POTASSIUM 3.6 MMOL/L (3.6-5.0); SODIUM 139 MMOL/L (135-145)
[2020-11-23] MEDS: POTASSIUM CL 10MEQ/50ML IVPB 50 ML IV SCH (05:30)
[2020-11-23] MEDS: MAGNESIUM 1 GM/100 ML IVPB 100 ML IV SCH (05:31)
[2020-11-23] MEDS: KCL 20 MEQ TAB (K-DUR) PO SCH (05:31)
[2020-11-23] MEDS ORDERED: KCL 20 MEQ TAB (K-DUR) PO ONE (08:00)
--- NOTE | 2020-11-23 08:02 | Cardiology Progress Note ---
Subjective Date Seen by Provider: Nov 23, 2020 Time Seen by Provider: 07:10 Subjective/Events-last exam Ms. Acevedo was seen and examined in the ICU this morning. Denies any concerns today, no chest pain, shortness of breath, dizziness or lightheadedness. Does admit to recent episodes of dizziness at home prior to admission. Is ready to leave as her kids are missing her. Review of Systems General: No Chills, No Night Sweats; Fatigue, Malaise; No Appetite, No Other HEENT: No Head Aches, No Visual Changes, No Eye Pain, No Ear Pain, No Dysphasia, No Sinus Congestion, No Post Nasal Drip, No Sore Throat, No Other Pulmonary: No Dyspnea, No Cough, No Pleuritic Chest Pain, No Other Cardiovascular: No: Chest Pain, Palpitations, Orthopnea, Paroxysmal Noc. Dyspnea, Edema, Lt Headedness, Other Objective-Cardiology Exam Last Set of Vital Signs Vital Signs 11/23/20 11/23/20 11/23/20 03:26 08:23 08:25 Temp 36.2 Pulse 45 Resp 12 B/P (MAP) 160/113 (129) Pulse Ox 97 O2 Delivery Room Air Capillary Refill : Less Than 3 Seconds I&O Intake and Output 11/23/20 00:00 Intake Total 4065 ml Output Total 4000 ml Balance 65 ml Intake Oral 1815 ml IV Total 2250 ml Output Urine Total 4000 ml # Bowel Movements 1 General: Alert, Oriented X3, Cooperative HEENT: PERRLA Lungs: Clear to Auscultation, Normal Air Movement Heart: Normal S1, Normal S2, Other (bradycardia) Abdomen: Normal Bowel Sounds, Soft, No Tenderness Extremities: No Cyanosis, No Edema Skin: No Rashes Neuro: Normal Gait, Normal Speech Psych/Mental Status: Mental Status NL Results Lab Laboratory Tests 11/23/20 02:20 A/P-Cardiology Admission Diagnosis Intentional suicide attempt with propranolol overdose Hypokalemia HTN Anxiety/depression THC use Assessment/Plan Asymptomatic sinus bradycardia, secondary to intentional suicide attempt with propranolol overdose. Patient continues to have bradycardia without continued beta-blockers, history of hypothyroidism, will order TSH. Monitor electrolytes. Glucagon ordered. Monitor closely. Will need plan for therapies/treatment for anxiety/depression prior to discharge. Hypokalemia, replaced, continue to monitor Hypertension, restart lisinopril, discontinue Norvasc at this point High risk for sleep apnea, discussed with Dr. Vitale and possible sleep study as an outpatient History of chest pain, noncardiac related. LST was normal in 2016, but had ongoing CP. LHC performed by Dr. Green in 2016 revealed normal anatomy with no lesions seen. Echo in 2017 revealed EF of 60% with pericardial effusion that was reduced from prior imaging in 2016. Hypothyroidism. Levothyroxine restarted but will order TSH to evaluate continued bradycardia. Supervisory-Addendum Brief Verification & Attestation Participated in pt care: history, MDM, physical Personally performed: exam, history, MDM, supervision of care Care discussed with: Medical Student Procedures: n/a Results interpretation: Verified all documentation Verification and Attestation of Medical Student E/M Service A medical student performed and documented this service in my presence. I review ed and verified all information documented by the medical student and made modifications to such information, when appropriate. I personally performed the physical exam and medical decision making. Hong rGeen, Nov 23, 2020,08:50 MICHAEL NICHOLS, Nov 23, 2020 08:02 HONG GREEN MD Nov 23, 2020 08:50
[2020-11-23] MEDS ORDERED: LEVOTHYROXINE 125 MCG (LEVOTHROID) TABLET PO SCH (09:00)
[2020-11-23] MEDS ORDERED: lisINopril 10 MG (PRINIVIL) TABLET PO SCH (09:00)
[2020-11-23] MEDS ORDERED: NYSTATIN ORAL SUSP 5 ML UDC PO SCH (09:00)
[2020-11-23] MEDS ORDERED: LEVOTHYROXINE 25 MCG (LEVOTHROID) TAB PO SCH ×2 (09:00→09:20)
--- NOTE | 2020-11-23 11:06 | Discharge Inst-Simple/Standard ---
Discharge Inst-Standard Patient Instructions/Follow Up Plan of Care/Instructions/FU: Please continue to take your medications only as written. Please follow up with your primary care doctor to follow up this hospital stay. Activity as Tolerated: Yes Discharge Diet: No Restrictions Return to The Hospital For: Chest pain, shortness of breath, thought of self harm or harming others, if you feel you are getting worse. SUELLEN SANDERS MD Nov 23, 2020 11:06
--- NOTE | 2020-11-23 11:08 | Discharge Summary ---
Diagnosis/Chief Complaint Date of Admission Nov 21, 2020 at 18:18 Date of Discharge Discharge Date: Nov 23, 2020 Admission Diagnosis Intentional suicide attempt by proponalol overdose Primary Care Deb Mc Discharge Diagnosis (1) Essential (primary) hypertension (2) Hypokalemia (3) Suicide attempt by drug overdose (4) Pituitary adenoma (5) Intentional propranolol overdose Status: Acute (6) Hypothyroidism Status: Acute Discharge Summary Procedures/Consulations Dr Green- Cardiology Discharge Physical Exam Allergies: Coded Allergies: Bacitracin Zinc (Unverified Allergy, Intermediate, HIVES, RESP PROBLMEMS, 07/09/17) Penicillins (Unverified Allergy, Intermediate, RASH,, 07/09/17) bacitracin (Unverified Allergy, Intermediate, HIVES, RESP PROBLMEMS, 07/09/17) gramicidin D (Unverified Allergy, Intermediate, HIVES, RESP PROBLMEMS, ) methylprednisolone sod succ (Unverified Allergy, Intermediate, RESP DIFFICULTY, 07/09/17) neomycin sulfate (Unverified Allergy, Intermediate, HIVES, RESP PROBLMEMS, 07/09/17) polymyxin B (Unverified Allergy, Intermediate, HIVES, RESP PROBLMEMS, 07/09/17) polymyxin B sulfate (Unverified Allergy, Intermediate, HIVES, RESP PROBLMEMS, 07/09/17) sulfamethoxazole (Verified Allergy, Unknown, Hives, 04/25/20) trimethoprim (Verified Allergy, Unknown, Hives, 04/25/20) Metronidazole HCl (Unverified Adverse Reaction, Mild, N/V, 07/09/17) metronidazole (Unverified Adverse Reaction, Mild, N/V, 07/09/17) Vitals & I&Os Vital Signs Date Time Temp Pulse Resp B/P (MAP) Pulse Ox O2 Delivery O2 Flow Rate FiO2 11/23/20 11:45 36.2 45 12 160/113 97 Room Air General Appearance: No Apparent Distress, WD/WN, Obese Respiratory: Lungs Clear, No Respiratory Distress Cardiovascular: Regular Rate, Rhythm, No Murmur Neurologic/Psychiatric: Alert, Oriented x3 Hospital Course Pt was admitted to the hospital following intentional propanolol overdose. She was monitored in our ICU and her heart rate at one time dropped in to the 20s necessitating glucagon. Following that though her heart rate maintained in the 50s and 60s. She was seen by [facility] for evaluation for possible psych placement. She was deemed appropriate for outpatient follow up with welfare checks by Collin Diaz who will arrange these visits. She was discharged in stable condition to follow up with her primary care doctor to follow up this hospital stay. Labs (last 24 hrs) Microbiology 11/21/20 MRSA Screen - Final, Complete MRSA not isolated Patient resulted labs reviewed. Imaging: Reviewed Imaging Report Discussion & Recommendations Discharge Planning: >30 minutes discharge planning Discharge Home Medications: Active Scripts Active Reported Tylenol Extra Strength (Acetaminophen) 500 Mg Tablet 500-1,000 Mg PO Q6H PRN Naratriptan HCl 2.5 Mg Tablet 2.5 Mg PO PRN PRN MAY REPEAT 1 DOSE AFTER 4 HOURS Estradiol 42.5 Gm Cream.appl 1 Applic VG UD PRN Hydrochlorothiazide 25 Mg Tablet 25 Mg PO DAILY Amlodipine Besylate 10 Mg Tablet 10 Mg PO DAILY PRN Naproxen 500 Mg Tablet 500 Mg PO BID PRN Levothyroxine Sodium 25 Mcg Tablet 25 Mg PO DAILY TAKES 2 (125MCG) TABS +25MCG TAB TO EQUAL 275MCG DAILY Levothyroxine Sodium 125 Mcg Tablet 250 Mcg PO DAILY TAKES 2 (125MCG) TABS +25MCG TAB TO EQUAL 275MCG DAILY Instructions to patient/family Please see electronic discharge instructions given to patient. Copy Copies To 1: Germania Mc Problem Qualifiers (1) Intentional propranolol overdose: Encounter type: initial encounter Qualified Codes: T44.7X2A - Poisoning by beta-adrenoreceptor antagonists, intentional self-harm, initial encounter SUELLEN SANDERS MD Nov 23, 2020 11:07
[2020-11-23 11:45] VITALS: BP 160/113
[2020-11-24] MEDS ORDERED: LEVOTHYROXINE 25 MCG (LEVOTHROID) TAB PO SCH (09:00)
[2020-11-24] MEDS ORDERED: LEVOTHYROXINE 125 MCG (LEVOTHROID) TABLET PO SCH (09:00)
== END 2020-11-23 11:45 | disposition home or self-care (01) ==
LOC: EDUNIT# 14:53 → ER 14:55 → UNDOADMOB 18:18 → ICU 18:18 → UNDODISOB 11-23 11:45
PROVIDERS: ADMIT Family Medicine; ATTEND Family Medicine
DX: I10 Essential (primary) hypertension (principal); T44.7X2A Poisoning by beta-adrenoreceptor antagonists, intentional self-harm, initial encounter; G43.909 Migraine, unspecified, not intractable, without status migrainosus; G62.9 Polyneuropathy, unspecified; K59.09 Other constipation; M06.9 Rheumatoid arthritis, unspecified; M54.9 Dorsalgia, unspecified; D35.2 Benign neoplasm of pituitary gland; I95.9 Hypotension, unspecified; E03.9 Hypothyroidism, unspecified; G47.9 Sleep disorder, unspecified; F32.9 Major depressive disorder, single episode, unspecified; F41.9 Anxiety disorder, unspecified; F17.210 Nicotine dependence, cigarettes, uncomplicated; Z88.0 Allergy status to penicillin; Z90.49 Acquired absence of other specified parts of digestive tract; E87.6 Hypokalemia; Z88.1 Allergy status to other antibiotic agents; Z90.710 Acquired absence of both cervix and uterus; Z98.51 Tubal ligation status; Z88.2 Allergy status to sulfonamides; Z88.8 Allergy status to other drugs, medicaments and biological substances; Z79.890 Hormone replacement therapy; Z79.899 Other long term (current) drug therapy; Z83.3 Family history of diabetes mellitus
CPT/HCPCS: 71045 ×2; 80048 ×2; 80053; 80306; 82962; 83735 ×2; 84100 ×2; 84443; 84484; 85025 ×3; 87081; 93005 ×2; 96374; 96375; 99285; G0378; G0480 ×3; 36415; 80320; 80329

== ENCOUNTER → 2020-12-27 | Outpatient (CLI) | payer MEDICAID ==
[~2020-12-27] MED LIST changes: +ACET-2267 PO; +AMLO-251 PO; +AMLO2.5T2 PO; +ESTR42.511 VG; +HYDR25TA4 PO; +NAPR-915 PO; +NARA2.5T2 PO; +PROP10TA8 PO
== END ==
LOC: LABNPT 09:27
PROVIDERS: ATTEND Nurse Practitioner
DX: Z01.812 Encounter for preprocedural laboratory examination (principal); Z20.822 Contact with and (suspected) exposure to COVID-19
CPT/HCPCS: 87635

== ENCOUNTER 2020-12-28 19:51 | Outpatient (CLI) | payer MEDICAID | END 2020-12-29 06:30 | disposition home or self-care (01) | LOC: SLEEP 19:51 | PROVIDERS: ATTEND Nurse Practitioner | DX: G47.9 Sleep disorder, unspecified (principal) | CPT/HCPCS: 95810 ==

== ENCOUNTER 2021-02-09 20:46 | Emergency (ER) | payer MEDICAID ==
[~2021-02-09] VITALS: Ht 172 cm; Wt 112.5 kg
--- NOTE | 2021-02-09 21:27 | ED General ---
General Chief Complaint: General Problems/Pain Stated Complaint: BILAT LEG BURNING SENSATION/PAIN Nursing Triage Note: PT ABULATORY TO ER WITH C/O BILAT LEG PAIN AND BURNING. ALSO MENTIONS GEN BODY PAIN. Nursing Sepsis Screen: No Definite Risk Source of Information: Patient Exam Limitations: No Limitations History of Present Illness Date Seen by Provider: Feb 09, 2021 Time Seen by Provider: 21:16 Initial Comments Patient presents ER by private conveyance with chief complaint of burning fireball pain in the front back and sides of her bilateral lower extremities all the way down to her feet. She denies a history of diabetes or peripheral neuropathy. She says she is at this since yesterday evening. She has tried Tylenol and marijuana which only gave her a brief respite from her pain. She h as had symptoms like this in the past several months ago that was associated with a low potassium and she says she had to stay in the hospital to get it replaced. She denies any trauma falls car wreck's or any other recent injury to her back. She is not having any numbness and is able to walk unassisted. She has had no saddle anesthesia, weakness, loss of control of bowel or bladder. She says she has a lot of anxiety and used to use tramadol to control this many years ago but she decided to quit that. She follows with Germania Kimbrough and has not been able to get in with her since this episode started. She does have an appointment coming up on 21 February. Allergies and Home Medications Allergies Coded Allergies: Bacitracin Zinc (Unverified Allergy, Intermediate, HIVES, RESP PROBLMEMS, 07/09/17) Penicillins (Unverified Allergy, Intermediate, RASH,, 07/09/17) bacitracin (Unverified Allergy, Intermediate, HIVES, RESP PROBLMEMS, 07/09/17) gramicidin D (Unverified Allergy, Intermediate, HIVES, RESP PROBLMEMS, 07/09/17) methylprednisolone sod succ (Unverified Allergy, Intermediate, RESP DIFFICULTY, 07/09/17) neomycin sulfate (Unverified Allergy, Intermediate, HIVES, RESP PROBLMEMS, 07/09/17) polymyxin B (Unverified Allergy, Intermediate, HIVES, RESP PROBLMEMS, 07/09/17) polymyxin B sulfate (Unverified Allergy, Intermediate, HIVES, RESP PROBLMEMS, 07/09/17) sulfamethoxazole (Verified Allergy, Unknown, Hives, 04/25/20) trimethoprim (Verified Allergy, Unknown, Hives, 04/25/20) Metronidazole HCl (Unverified Adverse Reaction, Mild, N/V, 07/09/17) metronidazole (Unverified Adverse Reaction, Mild, N/V, 07/09/17) Home Medications Acetaminophen 500 Mg Tablet, 500-1,000 MG PO Q6H PRN for PAIN-MILD (1-4), (Reported) Amlodipine Besylate 10 Mg Tablet, 10 MG PO DAILY PRN for BP OVER 140/90, (Reported) Estradiol 42.5 Gm Cream.appl, 1 APPLIC VG UD PRN for DRYNESS/ITCHING/BURNING, (Reported) Hydrochlorothiazide 25 Mg Tablet, 25 MG PO DAILY, (Reported) Levothyroxine Sodium 125 Mcg Tablet, 250 MCG PO DAILY, (Reported) TAKES 2 (125MCG) TABS +25MCG TAB TO EQUAL 275MCG DAILY Levothyroxine Sodium 25 Mcg Tablet, 25 MG PO DAILY, (Reported) TAKES 2 (125MCG) TABS +25MCG TAB TO EQUAL 275MCG DAILY Naproxen 500 Mg Tablet, 500 MG PO BID PRN for PAIN-MILD (1-4), (Reported) Naratriptan HCl 2.5 Mg Tablet, 2.5 MG PO PRN PRN for MIGRAINE, (Reported) MAY REPEAT 1 DOSE AFTER 4 HOURS Patient Home Medication List Home Medication List Reviewed: Yes Review of Systems Review of Systems Constitutional: No chills, No diaphoresis, No fever, No malaise, No weakness EENTM: No ear discharge, No ear pain Respiratory: No cough, No short of breath Cardiovascular: No chest pain, No edema Gastrointestinal: No abdominal pain, No nausea, No vomiting Genitourinary: No discharge, No dysuria : No Musculoskeletal: see HPI; No back pain, No joint pain; muscle pain Skin: No change in color, No dryness Psychiatric/Neurological: Denies Anxiety, Denies Depressed, Denies Emotional Problems Hematologic/Lymphatic: Denies Anemia, Denies Blood Clots Immunological/Allergic: denies food allergy, denies grass allergy All Other Systems Reviewed Negative Unless Noted: Yes Past Xvcyaqj-Akyxzd-Fuyqhy Hx Patient Social History Alcohol Use: Denies Use Drug of Choice: marijuana Smoking Status: Current Everyday Smoker Type Used: Cigarettes 2nd Hand Smoke Exposure: Yes Recent Infectious Disease Expo: No Recent Hopitalizations: No Immunizations Up To Date Tetanus Booster (TDap): More than 5yrs Date of Pneumonia Vaccine: December 28, 2012 Date of Influenza Vaccine: Apr 18, 2011 Seasonal Allergies Seasonal Allergies: Yes Past Medical History Surgeries: Yes (HYST/LSO;OVARIAN CYSTS;BILAT KNEE SCOPES/SHOULDER SCOPES/CTR;VULVAR SURG) Gallbladder, 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, Orthopedic, 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 Respiratory: Yes Asthma Currently Using CPAP: No Currently Using BIPAP: No Cardiac: Yes (HX PERICARDIAL EFFUSION, HEART CATH-CLEAR) Rheumatic Fever Neurological: Yes (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, pituitary adenoma) Headaches /Migraines, Neuropathy 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 Disorders: Yes Female 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 Disorders: Menstrual Problems, 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, Ovarian Cyst 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: 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 Sexually Transmitted Disease: No ( ) HIV/AIDS: No Genitourinary: No Gastrointestinal: Yes Chronic Constipation, Hemorrhoids Musculoskeletal: Yes (CHRONIC PAIN) Rheumatoid Arthritis, Chronic Back Pain Endocrine: Yes (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) Hypothyroidsim HEENT: Yes (GLASSES/CONTACTS) Loss of Vision: Denies Hearing Impairment: Denies Cancer: Yes (precancerous cells of ain) Psychosocial: Yes Sleep Difficulties, Anxiety, Depression Integumentary: No Blood Disorders: No Adverse Reaction/Blood Tranf: No (N/A) Family Medical History Asthma son CANC 19 MOTHER (CANCER OF GALLBLADDER AND UTERUS) Diabetes mellitus G8 SISTER FH: cancer Hypertension 19 FATHER Psychosocial problem G8 SISTER (ANXIETY) Thyroid disease 19 MOTHER (HYPERTHYROID) Heart Disease, Hypertension Physical Exam Vital Signs Vital Signs - First Documented 02/09/21 21:20 Temp 35.3 Pulse 80 B/P (MAP) 148/96 (113) Pulse Ox 97 Capillary Refill : Less Than 3 Seconds Height, Weight, BMI Height: 5'8.00" Weight: 260lbs. 4.0oz. [id number]; 38.00 BMI Method:Stated General Appearance: WD/WN, Mild Distress Eyes: Bilateral Eye Normal Inspection, Bilateral Eye PERRL, Bilateral Eye EOMI HEENT: PERRL/EOMI, TMs Normal, Normal ENT Inspection, Pharynx Normal, Moist Mucous Membranes Neck: Full Range of Motion, Normal Inspection Respiratory: Lungs Clear, Normal Breath Sounds, No Accessory Muscle Use, No Respiratory Distress Cardiovascular: Regular Rate, Rhythm, No Edema Back: Normal Inspection, No Vertebral Tenderness; No Decreased Range of Motion, No Muscle Spasm Extremity: Normal Capillary Refill, Normal Inspection, Normal Range of Motion Neurologic/Psychiatric: Alert, Oriented x3, No Motor/Sensory Deficits (Bilateral lower extremities motor and sensory are intact) Skin: Normal Color, Warm/Dry Progress/Results/Core Measures Suspected Sepsis Recent Fever Within 48 Hours: No Infection Criteria Present: None New/Unexplained Altered Menta: No Sepsis Screen: No Definite Risk SIRS Temperature: Pulse: 80 Respiratory Rate: Laboratory Tests 02/09/21 21:30: White Blood Count 8.4 Blood Pressure 148 /96 Mean: 113 Laboratory Tests 02/09/21 21:30: Creatinine 1.02, Platelet Count 239, Total Bilirubin 0.4 Results/Orders Lab Results Laboratory Tests Test 02/09/21 21:30 Range/Units White Blood Count 8.4 4.3-11.0 10^3/uL Red Blood Count 4.92 3.80-5.11 10^6/uL Hemoglobin 15.8 11.5-16.0 g/dL Hematocrit 47 35-52 % Mean Corpuscular Volume 95 80-99 fL Mean Corpuscular Hemoglobin 32 25-34 pg Mean Corpuscular Hemoglobin Concent 34 32-36 g/dL Red Cell Distribution Width 13.7 10.0-14.5 % Platelet Count 239 130-400 10^3/uL Mean Platelet Volume 10.4 9.0-12.2 fL Immature Granulocyte % (Auto) 0 % Neutrophils (%) (Auto) 54 42-75 % Lymphocytes (%) (Auto) 35 12-44 % Monocytes (%) (Auto) 8 0-12 % Eosinophils (%) (Auto) 3 0-10 % Basophils (%) (Auto) 1 0-10 % Neutrophils # (Auto) 4.5 1.8-7.8 10^3/uL Lymphocytes # (Auto) 2.9 1.0-4.0 10^3/uL Monocytes # (Auto) 0.7 0.0-1.0 10^3/uL Eosinophils # (Auto) 0.2 0.0-0.3 10^3/uL Basophils # (Auto) 0.1 0.0-0.1 10^3/uL Immature Granulocyte # (Auto) 0.0 0.0-0.1 10^3/uL Sodium Level 142 135-145 MMOL/L Potassium Level 3.7 3.6-5.0 MMOL/L Chloride Level 107 98-107 MMOL/L Carbon Dioxide Level 20 L 21-32 MMOL/L Anion Gap 15 H 5-14 MMOL/L Blood Urea Nitrogen 12 7-18 MG/DL Creatinine 1.02 0.60-1.30 MG/DL Estimat Glomerular Filtration Rate > 60 BUN/Creatinine Ratio 12 Glucose Level 96 70-105 MG/DL Calcium Level 9.5 8.5-10.1 MG/DL Corrected Calcium 9.3 8.5-10.1 MG/DL Magnesium Level 2.2 1.6-2.4 MG/DL Total Bilirubin 0.4 0.1-1.0 MG/DL Aspartate Amino Transf (AST/SGOT) 59 H 5-34 U/L Alanine Aminotransferase (ALT/SGPT) 37 0-55 U/L Alkaline Phosphatase 75 40-136 U/L C-Reactive Protein High Sensitivity 0.08 0.00-0.50 MG/DL Total Protein 7.6 6.4-8.2 GM/DL Albumin 4.2 3.2-4.5 GM/DL My Orders Orders - GUSTAVO TOVAR Cbc With Automated Diff (02/09/21 21:25) Comprehensive Metabolic Panel (02/09/21 21:25) Magnesium (02/09/21 21:25) Hs C Reactive Protein (02/09/21 21:25) Gabapentin Capsule/Tablet (Neurontin Cap (02/09/21 21:30) Ed Iv/Invasive Line Start (02/09/21 21:25) Ketorolac Injection (Toradol Injection) (02/09/21 23:00) Rx-Tramadol Hcl (Rx-Ultram) (02/09/21 22:59) Medications Given in ED Current Medications Medications Dose Ordered Sig/Narinder Route Start Time Stop Time Status Last Admin Dose Admin Gabapentin 200 mg ONCE ONCE PO 02/09/21 21:30 02/09/21 21:31 DC 02/09/21 21:49 200 MG Vital Signs/I&O 02/09/21 21:20 Temp 35.3 Pulse 80 B/P (MAP) 148/96 (113) Pulse Ox 97 Capillary Refill : Less Than 3 Seconds Blood Pressure Mean: 113 Progress Note : Time: 23:02 Progress Note Hyperalgesia to light touch in bilateral lower extremities. Chronic regional pain syndrome since has been going on for years off and on? Basic labs are unrevealing of any electrolyte disorders. Gabapentin did nothing to help her pain. We will send her home with a small prescription for tramadol and instructions to follow-up with her primary care doctor for further management. Toradol x1 IV. Departure Impression Primary Impression: Leg pain, bilateral Disposition: HOME, SELF-CARE Condition: Stable Departure-Patient Inst. Decision time for Depature: 23:03 Referrals: [facility] (PCP) Primary Care Physician RITA KIMBROUGH (Family) Primary Care Physician Patient Instructions: Acute Pain, Adult (DC) Add. Discharge Instructions: Topical creams with capsaicin oil may be helpful. Tylenol 1000 mg every 8 hours as necessary for pain. Ibuprofen 800 mg every 8 hours as necessary for pain. Tramadol 1 tablet every 6 hours as necessary for breakthrough pain. Follow-up with your primary care provider next week. All discharge instructions reviewed with patient and/or family. Voiced understanding. Scripts Tramadol HCl (Tramadol HCl) 50 Mg Tablet 50 MG PO Q6H PRN for PAIN for 3 Days, #15 TAB 0 Refills Prov: GUSTAVO TOVAR 02/09/21 GUSTAVO TOVAR Feb 09, 2021 21:27
[2021-02-09] MEDS ORDERED: GABAPENTIN 100 MG (NEURONTIN) CAP PO ONE (21:30)
[2021-02-09 21:39] LABS: BASOPHILS # (AUTO) 0.1 10^3/uL (0.0-0.1); BASOPHILS % (AUTO) 1 % (0-10); EOSINOPHILS # (AUTO) 0.2 10^3/uL (0.0-0.3); EOSINOPHILS % (AUTO) 3 % (0-10); HEMATOCRIT 47 % (35-52); HEMOGLOBIN 15.8 g/dL (11.5-16.0); LYMPHOCYTES # (AUTO) 2.9 10^3/uL (1.0-4.0); LYMPHOCYTES % (AUTO) 35 % (12-44); MEAN CORPUSCULAR HEMOGLOBIN 32 pg (25-34); MEAN CORPUSCULAR HGB CONC 34 g/dL (32-36); MEAN CORPUSCULAR VOLUME 95 fL (80-99); MEAN PLATELET VOLUME 10.4 fL (9.0-12.2); MONOCYTES # (AUTO) 0.7 10^3/uL (0.0-1.0); MONOCYTES % (AUTO) 8 % (0-12); NEUTROPHILS # (AUTO) 4.5 10^3/uL (1.8-7.8); NEUTROPHILS % (AUTO) 54 % (42-75); PLATELET COUNT 239 10^3/uL (130-400); WHITE BLOOD COUNT 8.4 10^3/uL (4.3-11.0)
[2021-02-09 21:47] LABS: ALBUMIN 4.2 GM/DL (3.2-4.5); CHLORIDE 107 MMOL/L (98-107); POTASSIUM 3.7 MMOL/L (3.6-5.0); SODIUM 142 MMOL/L (135-145)
[2021-02-09 21:48] LABS: CALCIUM 9.5 MG/DL (8.5-10.1)
[2021-02-09 21:50] LABS: GLUCOSE 96 MG/DL (70-105); TOTAL PROTEIN 7.6 GM/DL (6.4-8.2)
[2021-02-09 21:51] LABS: BILIRUBIN,TOTAL 0.4 MG/DL (0.1-1.0); CARBON DIOXIDE 20 MMOL/L (21-32)
[2021-02-09 21:53] LABS: ALKALINE PHOSPHATASE 75 U/L (40-136); CREATININE SERUM 1.02 MG/DL (0.60-1.30); GFR ESTIMATED > 60
[2021-02-09 21:54] LABS: BUN/CREATININE RATIO 12
[2021-02-09 21:56] LABS: ALANINE AMINOTRANSFERASE 37 U/L (0-55); MAGNESIUM 2.2 MG/DL (1.6-2.4)
[2021-02-09] MEDS ORDERED: KETOROLAC 30 MG/ML VIAL IVP ONE (23:00)
[2021-02-09] MEDS ORDERED: TRM50T PO (23:04)
[2021-02-09 23:17] VITALS: BP 148/96
== END 2021-02-09 23:23 | disposition home or self-care (01) ==
LOC: EDUNIT# 20:46 → ER 20:48
DX: M79.605 Pain in left leg (principal); M79.604 Pain in right leg; J45.909 Unspecified asthma, uncomplicated; E03.9 Hypothyroidism, unspecified; G43.909 Migraine, unspecified, not intractable, without status migrainosus; F41.9 Anxiety disorder, unspecified; F17.210 Nicotine dependence, cigarettes, uncomplicated; Z79.890 Hormone replacement therapy; Z79.899 Other long term (current) drug therapy
CPT/HCPCS: 36415; 80053; 83735; 85025; 86141

== ENCOUNTER 2021-02-16 09:25 | Emergency (ER) | payer MEDICAID ==
[~2021-02-16] VITALS: Ht 172 cm; Wt 119.0 kg
[2021-02-16 10:43] LABS: ALBUMIN 4.6 GM/DL (3.2-4.5); BASOPHILS # (AUTO) 0.1 10^3/uL (0.0-0.1); BASOPHILS % (AUTO) 1 % (0-10); CHLORIDE 103 MMOL/L (98-107); EOSINOPHILS # (AUTO) 0.2 10^3/uL (0.0-0.3); EOSINOPHILS % (AUTO) 3 % (0-10); HEMATOCRIT 48 % (35-52); HEMOGLOBIN 16.1 g/dL (11.5-16.0); LYMPHOCYTES # (AUTO) 2.3 10^3/uL (1.0-4.0); LYMPHOCYTES % (AUTO) 31 % (12-44); MEAN CORPUSCULAR HEMOGLOBIN 32 pg (25-34); MEAN CORPUSCULAR HGB CONC 34 g/dL (32-36); MEAN CORPUSCULAR VOLUME 95 fL (80-99); MONOCYTES # (AUTO) 0.5 10^3/uL (0.0-1.0); MONOCYTES % (AUTO) 7 % (0-12); NEUTROPHILS # (AUTO) 4.3 10^3/uL (1.8-7.8); NEUTROPHILS % (AUTO) 58 % (42-75); PLATELET COUNT 257 10^3/uL (130-400); POTASSIUM 3.5 MMOL/L (3.6-5.0); SODIUM 140 MMOL/L (135-145); WHITE BLOOD COUNT 7.4 10^3/uL (4.3-11.0)
[2021-02-16 10:45] LABS: CALCIUM 9.6 MG/DL (8.5-10.1)
[2021-02-16 10:46] LABS: GLUCOSE 93 MG/DL (70-105); TOTAL PROTEIN 7.7 GM/DL (6.4-8.2)
[2021-02-16 10:47] LABS: BILIRUBIN,TOTAL 0.4 MG/DL (0.1-1.0); CARBON DIOXIDE 25 MMOL/L (21-32)
[2021-02-16 10:49] LABS: ALKALINE PHOSPHATASE 81 U/L (40-136); CREATININE SERUM 1.03 MG/DL (0.60-1.30); GFR ESTIMATED > 60
[2021-02-16 10:50] LABS: BUN/CREATININE RATIO 10
[2021-02-16 10:52] LABS: ALANINE AMINOTRANSFERASE 45 U/L (0-55)
--- NOTE | 2021-02-16 11:54 | Diagnostic Imaging Report ---
Indication: Shortness of breath and chest tightness. Time of exam: 11:43 AM Correlation is made with prior chest from 08/06/2007. The heart size is normal. The pulmonary vascularity is unremarkable. The lungs are clear. No infiltrate, effusion or pneumothorax is detected. Impression: No acute cardiopulmonary process is detected. Dictated by: Dictated on workstation # [id number]
[2021-02-16] MEDS ORDERED: RT-ALBUTEROL INHALER HFA (VENTOLIN HFA) 18 GM IH STA (11:57)
[2021-02-16] MEDS ORDERED: ACETAMINOPHEN 325 MG TABLET PO ONE (12:00)
[2021-02-16] MEDS ORDERED: RT-ALBUTEROL INHALER HFA (VENTOLIN HFA) 18 GM IH SCH (14:00)
[2021-02-16 14:50] VITALS: BP 133/98
--- NOTE | 2021-02-18 07:32 | ED General ---
General Chief Complaint: Respiratory Problems Stated Complaint: COUGH,SOB,SORE THROATT, LOSS OF TASTE Nursing Triage Note: PT STATES SOB, CHEST TIGHTNESS SLIGHT LOSS OF TASTE FOR 2-3 DAYS. HX OF SEASONAL ALLERGY ISSUES Source of Information: Patient Exam Limitations: No Limitations History of Present Illness Date Seen by Provider: Feb 16, 2021 Time Seen by Provider: 10:10 Initial Comments This 35-year-old woman presents to emergency room with a few days of cough, shortness of breath, chest tightness, headache and change in taste. Vital signs are stable. She is afebrile. Allergies and Home Medications Allergies Coded Allergies: Bacitracin Zinc (Unverified Allergy, Intermediate, HIVES, RESP PROBLMEMS, 07/09/17) Penicillins (Unverified Allergy, Intermediate, RASH,, 07/09/17) bacitracin (Unverified Allergy, Intermediate, HIVES, RESP PROBLMEMS, 07/09/17) gramicidin D (Unverified Allergy, Intermediate, HIVES, RESP PROBLMEMS, 07/09/17) methylprednisolone sod succ (Unverified Allergy, Intermediate, RESP DIFFICULTY, 07/09/17) neomycin sulfate (Unverified Allergy, Intermediate, HIVES, RESP PROBLMEMS, 07/09/17) polymyxin B (Unverified Allergy, Intermediate, HIVES, RESP PROBLMEMS, 07/09/17) polymyxin B sulfate (Unverified Allergy, Intermediate, HIVES, RESP PROBLMEMS, 07/09/17) sulfamethoxazole (Verified Allergy, Unknown, Hives, 04/25/20) trimethoprim (Verified Allergy, Unknown, Hives, 04/25/20) Metronidazole HCl (Unverified Adverse Reaction, Mild, N/V, 07/09/17) metronidazole (Unverified Adverse Reaction, Mild, N/V, 07/09/17) Home Medications Acetaminophen 500 Mg Tablet, 500-1,000 MG PO Q6H PRN for PAIN-MILD (1-4), (Reported) Amlodipine Besylate 10 Mg Tablet, 10 MG PO DAILY PRN for BP OVER 140/90, (Reported) Estradiol 42.5 Gm Cream.appl, 1 APPLIC VG UD PRN for DRYNESS/ITCHING/BURNING, (Reported) Hydrochlorothiazide 25 Mg Tablet, 25 MG PO DAILY, (Reported) Levothyroxine Sodium 125 Mcg Tablet, 250 MCG PO DAILY, (Reported) TAKES 2 (125MCG) TABS +25MCG TAB TO EQUAL 275MCG DAILY Levothyroxine Sodium 25 Mcg Tablet, 25 MG PO DAILY, (Reported) TAKES 2 (125MCG) TABS +25MCG TAB TO EQUAL 275MCG DAILY Naproxen 500 Mg Tablet, 500 MG PO BID PRN for PAIN-MILD (1-4), (Reported) Naratriptan HCl 2.5 Mg Tablet, 2.5 MG PO PRN PRN for MIGRAINE, (Reported) MAY REPEAT 1 DOSE AFTER 4 HOURS Tramadol HCl 50 Mg Tablet, 50 MG PO Q6H PRN for PAIN Prescribed by: GUSTAVO TOVAR on 02/09/21 1943 Patient Home Medication List Home Medication List Reviewed: Yes Review of Systems Review of Systems Constitutional: no symptoms reported EENTM: see HPI Respiratory: see HPI Cardiovascular: no symptoms reported Gastrointestinal: no symptoms reported Genitourinary: no symptoms reported Musculoskeletal: no symptoms reported Skin: no symptoms reported Psychiatric/Neurological: See HPI Hematologic/Lymphatic: No Symptoms Reported Immunological/Allergic: no symptoms reported Past Hilurra-Xorogc-Vxmppr Hx Patient Social History Tobacco Use?: Yes Tobacco type used: Cigarettes Smoking Status: Current Everyday Smoker Use of E-Cig and/or Vaping dev: Yes E-Cig or Vaping type used: CBD Use of E-Cig and/or Vaping Chad: Current Everyday User Substance use?: No Alcohol type: Other Alcohol Frequency: Rarely Immunizations Up To Date Tetanus Booster (TDap): More than 5yrs Seasonal Allergies Seasonal Allergies: Yes Past Medical History Surgeries: Yes (HYST/LSO;OVARIAN CYSTS;BILAT KNEE SCOPES/SHOULDER SCOPES/CTR;VULVAR SURG) Gallbladder, 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, Orthopedic, 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 Respiratory: Yes Asthma Currently Using CPAP: No Currently Using BIPAP: No Cardiac: Yes (HX PERICARDIAL EFFUSION, HEART CATH-CLEAR) Rheumatic Fever Neurological: Yes (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, pituitary adenoma) Headaches /Migraines, Neuropathy 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 Disorders: Yes Female 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 Disorders: Menstrual Problems, 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, 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 Sexually Transmitted Disease: No ( ) HIV/AIDS: No Genitourinary: No Gastrointestinal: Yes Chronic Constipation, Hemorrhoids Musculoskeletal: Yes (CHRONIC PAIN) Rheumatoid Arthritis, Chronic Back Pain Endocrine: Yes (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) Hypothyroidsim HEENT: Yes (GLASSES/CONTACTS) Loss of Vision: Denies Hearing Impairment: Denies Cancer: Yes (precancerous cells of ain) Psychosocial: Yes Sleep Difficulties, Anxiety, Depression Integumentary: No Blood Disorders: No Adverse Reaction/Blood Tranf: No (N/A) Family Medical History Asthma son CANC 19 MOTHER (CANCER OF GALLBLADDER AND UTERUS) Diabetes mellitus G8 SISTER FH: cancer Hypertension 19 FATHER Psychosocial problem G8 SISTER (ANXIETY) Thyroid disease 19 MOTHER (HYPERTHYROID) Heart Disease, Hypertension Physical Exam Vital Signs Vital Signs - First Documented 02/16/21 09:40 Temp 36.5 Pulse 71 Resp 20 B/P (MAP) 151/81 (104) Pulse Ox 98 O2 Delivery Nasal Cannula Capillary Refill : Less Than 3 Seconds Height, Weight, BMI Height: 5'8.00" Weight: 260lbs. 4.0oz. 118.595442gu; 40.00 BMI Method:Stated General Appearance: No Apparent Distress, WD/WN HEENT: PERRL/EOMI, TMs Normal, Normal ENT Inspection Neck: Normal Inspection Respiratory: No Accessory Muscle Use, No Respiratory Distress, Wheezing Cardiovascular: Regular Rate, Rhythm, No Edema, No Murmur Gastrointestinal: Non Tender, Soft Extremity: Normal Inspection, No Pedal Edema Neurologic/Psychiatric: Alert, Oriented x3, No Motor/Sensory Deficits, Normal Mood/Affect, scout II-XII Norm as Tested Skin: Normal Color, Warm/Dry Progress/Results/Core Measures Suspected Sepsis SIRS Temperature: Pulse: 61 Respiratory Rate: 20 Laboratory Tests 02/16/21 09:58: White Blood Count 7.4 Blood Pressure 133 /98 Mean: 104 Laboratory Tests 02/16/21 09:58: Creatinine 1.03, Platelet Count 257, Total Bilirubin 0.4 Results/Orders Lab Results Laboratory Tests Test 02/16/21 09:40 02/16/21 09:58 Range/Units Influenza Type A (RT-PCR) Not Detected Not Detecte Influenza Type B (RT-PCR) Not Detected Not Detecte SARS-CoV-2 RNA (RT-PCR) Not Detected Not Detecte White Blood Count 7.4 4.3-11.0 10^3/uL Red Blood Count 5.00 3.80-5.11 10^6/uL Hemoglobin 16.1 H 11.5-16.0 g/dL Hematocrit 48 35-52 % Mean Corpuscular Volume 95 80-99 fL Mean Corpuscular Hemoglobin 32 25-34 pg Mean Corpuscular Hemoglobin Concent 34 32-36 g/dL Red Cell Distribution Width 13.8 10.0-14.5 % Platelet Count 257 130-400 10^3/uL Mean Platelet Volume 10.0 9.0-12.2 fL Immature Granulocyte % (Auto) 0 % Neutrophils (%) (Auto) 58 42-75 % Lymphocytes (%) (Auto) 31 12-44 % Monocytes (%) (Auto) 7 0-12 % Eosinophils (%) (Auto) 3 0-10 % Basophils (%) (Auto) 1 0-10 % Neutrophils # (Auto) 4.3 1.8-7.8 10^3/uL Lymphocytes # (Auto) 2.3 1.0-4.0 10^3/uL Monocytes # (Auto) 0.5 0.0-1.0 10^3/uL Eosinophils # (Auto) 0.2 0.0-0.3 10^3/uL Basophils # (Auto) 0.1 0.0-0.1 10^3/uL Immature Granulocyte # (Auto) 0.0 0.0-0.1 10^3/uL Sodium Level 140 135-145 MMOL/L Potassium Level 3.5 L 3.6-5.0 MMOL/L Chloride Level 103 98-107 MMOL/L Carbon Dioxide Level 25 21-32 MMOL/L Anion Gap 12 5-14 MMOL/L Blood Urea Nitrogen 10 7-18 MG/DL Creatinine 1.03 0.60-1.30 MG/DL Estimat Glomerular Filtration Rate > 60 BUN/Creatinine Ratio 10 Glucose Level 93 70-105 MG/DL Calcium Level 9.6 8.5-10.1 MG/DL Corrected Calcium 8.5-10.1 MG/DL Total Bilirubin 0.4 0.1-1.0 MG/DL Aspartate Amino Transf (AST/SGOT) 47 H 5-34 U/L Alanine Aminotransferase (ALT/SGPT) 45 0-55 U/L Alkaline Phosphatase 81 40-136 U/L C-Reactive Protein High Sensitivity 0.06 0.00-0.50 MG/DL Total Protein 7.7 6.4-8.2 GM/DL Albumin 4.6 H 3.2-4.5 GM/DL My Orders Orders - TIEN BOUDREAUX MD Covid 19 Inhouse Test (02/16/21 10:09) Influenza A And B By Pcr (02/16/21 10:09) Cbc With Automated Diff (02/16/21 10:37) Comprehensive Metabolic Panel (02/16/21 10:37) Hs C Reactive Protein (02/16/21 10:37) Chest Pa/Lat (2 View) (02/16/21 11:30) Albuterol Inhaler (Ventolin Hfa) (02/16/21 11:57) Vital Signs/I&O 02/16/21 02/16/21 02/16/21 09:40 12:02 14:50 Temp 36.5 36.5 36.5 Pulse 71 61 Resp 20 20 B/P (MAP) 151/81 (104) 133/98 (104) Pulse Ox 98 98 O2 Delivery Nasal Cannula Room Air Capillary Refill : Less Than 3 Seconds Blood Pressure Mean: 104 Progress Note : Progress Note Nasal swabs were negative for flu and COVID-19. Patient was treated with an albuterol inhaler which improved her chest tightness. Chest x-ray revealed no pneumonia. Patient left AGAINST MEDICAL ADVICE before receiving discharge p apers as she was required to wait while a multivictim trauma presented to the ER. Diagnostic Imaging Diagonstic Imaging: Xray Plain Films/CT/US/NM/MRI: chest Comments NAME: ANUJA CULP [facility] REC#: [id number] PT STATUS: DEP ER : 1985 PHYSICIAN: TIEN BOUDREAUX MD ADMIT DATE: 02/16/21/ER Signed Date of Exam:02/16/21 CHEST PA/LAT (2 VIEW) Indication: Shortness of breath and chest tightness. Time of exam: 11:43 AM Correlation is made with prior chest from 08/06/2007. The heart size is normal. The pulmonary vascularity is unremarkable. The lungs are clear. No infiltrate, effusion or pneumothorax is detected. Impression: No acute cardiopulmonary process is detected. Dictated by: Dictated on workstation # [id number] Dict: 02/16/21 1152 Trans: 02/16/21 1547 [facility] [id number] Interpreted by: GENE JOSEPH MD Electronically signed by: GENE JOSEPH MD 02/16/21 1547 Departure Impression Primary Impression: Acute bronchitis Qualified Codes: J20.9 - Acute bronchitis, unspecified Disposition: 07 AGAINST MEDICAL ADVICE Condition: Against Medical Advice Departure-Patient Inst. Referrals: RITA KIMBROUGH (Family) Primary Care Physician [facility] (PCP) Primary Care Physician TIEN BOUDREAUX MD Feb 18, 2021 07:32
== END 2021-02-16 14:50 | disposition left against medical advice (07) ==
LOC: EDUNIT# 09:25 → ER 09:26
DX: J20.9 Acute bronchitis, unspecified (principal); J45.909 Unspecified asthma, uncomplicated; G43.909 Migraine, unspecified, not intractable, without status migrainosus; E03.9 Hypothyroidism, unspecified; F17.210 Nicotine dependence, cigarettes, uncomplicated; Z79.890 Hormone replacement therapy; Z20.822 Contact with and (suspected) exposure to COVID-19; Z79.899 Other long term (current) drug therapy
CPT/HCPCS: 36415; 71046; 80053; 85025; 86141; 87636

== ENCOUNTER 2021-04-02 13:30 | Emergency (ER) | payer MEDICAID ==
[~2021-04-02] VITALS: Ht 172 cm; Wt 111.0 kg
--- NOTE | 2021-04-02 13:54 | ED Chest Pain ---
General Stated Complaint: HIGH BP, CHEST TIGHTNESS Source: patient Exam Limitations: no limitations History of Present Illness Date Seen by Provider: Apr 02, 2021 Time Seen by Provider: 13:35 Initial Comments Patient to the ER by the private conveyance with chief complaint of chest pressure since she woke up around 7:00 this morning. Substernal nonradiating not worse with deep inspiration or palpation. Patient is having no nausea fever chills cough or shortness of air. She says she is been checking her blood pressure and its been elevated 175 systolic. She took her lisinopril hydrochlorothiazide 10 x 12.5 mg and a dose of propranolol at 9:00 in the morning. She took a second dose propranolol because her blood pressure failed to go down. She was checking it every hour. She called her primary care doctor at [facility] and they were not in. She rates her pressure is about a 4 out of 10. She has a headache. She does not take anything else for it. She has some anxiety but denies a history of GERD. She has a history of asthma but has not had to use her albuterol however since she had Covid in the middle of February. She has no primary family history of early onset coronary disease but she had a grandmother who had a heart attack in her early 50s as well as heart failure. She herself has no history of coronary disease or heart failure. No history of diabetes, hyperlipidemia. She does smoke about a half of a pack of cigarettes per day. Allergies and Home Medications Allergies Coded Allergies: Bacitracin Zinc (Unverified Allergy, Intermediate, HIVES, RESP PROBLMEMS, 07/09/17) Penicillins (Unverified Allergy, Intermediate, RASH,, 07/09/17) bacitracin (Unverified Allergy, Intermediate, HIVES, RESP PROBLMEMS, 07/09/17) gramicidin D (Unverified Allergy, Intermediate, HIVES, RESP PROBLMEMS, 07/09/17) methylprednisolone sod succ (Unverified Allergy, Intermediate, RESP DIFFICULTY, 07/09/17) neomycin sulfate (Unverified Allergy, Intermediate, HIVES, RESP PROBLMEMS, 07/09/17) polymyxin B (Unverified Allergy, Intermediate, HIVES, RESP PROBLMEMS, 07/09/17) polymyxin B sulfate (Unverified Allergy, Intermediate, HIVES, RESP PROBLMEMS, 07/09/17) sulfamethoxazole (Verified Allergy, Unknown, Hives, 04/25/20) trimethoprim (Verified Allergy, Unknown, Hives, 04/25/20) Metronidazole HCl (Unverified Adverse Reaction, Mild, N/V, 07/09/17) metronidazole (Unverified Adverse Reaction, Mild, N/V, 07/09/17) Home Medications Acetaminophen 500 Mg Tablet, 500-1,000 MG PO Q6H PRN for PAIN-MILD (1-4), (Reported) Amlodipine Besylate 10 Mg Tablet, 10 MG PO DAILY PRN for BP OVER 140/90, (Reported) Estradiol 42.5 Gm Cream.appl, 1 APPLIC VG UD PRN for DRYNESS/ITCHING/BURNING, (Reported) Hydrochlorothiazide 25 Mg Tablet, 25 MG PO DAILY, (Reported) Levothyroxine Sodium 125 Mcg Tablet, 250 MCG PO DAILY, (Reported) TAKES 2 (125MCG) TABS +25MCG TAB TO EQUAL 275MCG DAILY Levothyroxine Sodium 25 Mcg Tablet, 25 MG PO DAILY, (Reported) TAKES 2 (125MCG) TABS +25MCG TAB TO EQUAL 275MCG DAILY Naproxen 500 Mg Tablet, 500 MG PO BID PRN for PAIN-MILD (1-4), (Reported) Naratriptan HCl 2.5 Mg Tablet, 2.5 MG PO PRN PRN for MIGRAINE, (Reported) MAY REPEAT 1 DOSE AFTER 4 HOURS Tramadol HCl 50 Mg Tablet, 50 MG PO Q6H PRN for PAIN Prescribed by: GUSTAVO TOVAR on 02/09/21 0598 Patient Home Medication List Home Medication List Reviewed: Yes Review of Systems Review of Systems Constitutional: No chills, No diaphoresis EENTM: No Blurred Vision, No Double Vision Respiratory: Denies Cough, Denies Shortness of Air Cardiovascular: Chest Pain; Denies Edema, Denies Irregular Heart Rate, Denies Lightheadedness Gastrointestinal: Denies Constipated, Denies Diarrhea, Denies Nausea Genitourinary: Denies Burning, Denies Discharge Musculoskeletal: No back pain, No joint pain Hematologic/Lymphatic: Denies Anemia, Denies Blood Clots All Other Systems Reviewed Negative Unless Noted: Yes Past Vkoyfio-Elwgkk-Gkvcpy Hx Patient Social History Tobacco Use?: No Use of E-Cig and/or Vaping dev: No Substance use?: No Immunizations Up To Date Tetanus Booster (TDap): More than 5yrs Seasonal Allergies Seasonal Allergies: Yes Past Medical History Surgeries: Yes (HYST/LSO;OVARIAN CYSTS;BILAT KNEE SCOPES/SHOULDER SCOPES/CTR;VULVAR SURG) Gallbladder, 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, Orthopedic, 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 Respiratory: Yes Asthma Currently Using CPAP: No Currently Using BIPAP: No Cardiac: Yes (HX PERICARDIAL EFFUSION, HEART CATH-CLEAR) Rheumatic Fever Neurological: Yes (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, pituitary adenoma) Headaches /Migraines, Neuropathy 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 Disorders: Yes Female 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 Disorders: Menstrual Problems, 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, 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 Sexually Transmitted Disease: No ( ) HIV/AIDS: No Genitourinary: No Gastrointestinal: Yes Chronic Constipation, Hemorrhoids Musculoskeletal: Yes (CHRONIC PAIN) Rheumatoid Arthritis, Chronic Back Pain Endocrine: Yes (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) Hypothyroidsim HEENT: Yes (GLASSES/CONTACTS) Loss of Vision: Denies Hearing Impairment: Denies Cancer: Yes (precancerous cells of ain) Psychosocial: Yes Sleep Difficulties, Anxiety, Depression Integumentary: No Blood Disorders: No Adverse Reaction/Blood Tranf: No (N/A) Family Medical History Asthma son CANC 19 MOTHER (CANCER OF GALLBLADDER AND UTERUS) Diabetes mellitus G8 SISTER FH: cancer Hypertension 19 FATHER Psychosocial problem G8 SISTER (ANXIETY) Thyroid disease 19 MOTHER (HYPERTHYROID) Heart Disease, Hypertension Physical Exam Vital Signs Vital Signs - First Documented 04/02/21 14:03 Temp 36.2 Pulse 71 Resp 14 B/P (MAP) 138/96 (110) Pulse Ox 91 O2 Delivery Room Air Capillary Refill : Height, Weight, BMI Height: 5'8.00" Weight: 260lbs. 4.0oz. 118.574088il; 40.00 BMI Method:Stated General Appearance: Anxious, Obese HEENT: PERRL/EOMI, Pharynx Normal, Moist Mucous Membranes Neck: Full Range of Motion, Normal Inspection Respiratory: Lungs Clear, Normal Breath Sounds, No Accessory Muscle Use, No Respiratory Distress Cardiovascular: Regular Rate, Rhythm, No Edema, No JVD, No Murmur, Normal Peripheral Pulses Gastrointestinal: Normal Bowel Sounds, Non Tender, Soft Extremity: Normal Capillary Refill, Normal Inspection, No Pedal Edema Neurologic/Psychiatric: Alert, Oriented x3 Skin: Normal Color, Warm/Dry Progress/Results/Core Measures Results/Orders Lab Results Laboratory Tests Test 04/02/21 13:50 04/02/21 16:00 Range/Units White Blood Count 8.7 4.3-11.0 10^3/uL Red Blood Count 4.30 3.80-5.11 10^6/uL Hemoglobin 14.1 11.5-16.0 g/dL Hematocrit 41 35-52 % Mean Corpuscular Volume 96 80-99 fL Mean Corpuscular Hemoglobin 33 25-34 pg Mean Corpuscular Hemoglobin Concent 34 32-36 g/dL Red Cell Distribution Width 13.8 10.0-14.5 % Platelet Count 224 130-400 10^3/uL Mean Platelet Volume 10.5 9.0-12.2 fL Immature Granulocyte % (Auto) 0 % Neutrophils (%) (Auto) 69 42-75 % Lymphocytes (%) (Auto) 21 12-44 % Monocytes (%) (Auto) 8 0-12 % Eosinophils (%) (Auto) 1 0-10 % Basophils (%) (Auto) 1 0-10 % Neutrophils # (Auto) 6.0 1.8-7.8 10^3/uL Lymphocytes # (Auto) 1.8 1.0-4.0 10^3/uL Monocytes # (Auto) 0.7 0.0-1.0 10^3/uL Eosinophils # (Auto) 0.1 0.0-0.3 10^3/uL Basophils # (Auto) 0.1 0.0-0.1 10^3/uL Immature Granulocyte # (Auto) 0.0 0.0-0.1 10^3/uL Prothrombin Time 13.5 12.2-14.7 SEC INR Comment 1.0 0.8-1.4 Activated Partial Thromboplast Time 31 24-35 SEC D-Dimer <= 0.27 0.00-0.49 UG/ML Sodium Level 138 135-145 MMOL/L Potassium Level 3.4 L 3.6-5.0 MMOL/L Chloride Level 103 98-107 MMOL/L Carbon Dioxide Level 25 21-32 MMOL/L Anion Gap 10 5-14 MMOL/L Blood Urea Nitrogen 10 7-18 MG/DL Creatinine 0.92 0.60-1.30 MG/DL Estimat Glomerular Filtration Rate 70 BUN/Creatinine Ratio 11 Glucose Level 89 70-105 MG/DL Calcium Level 9.8 8.5-10.1 MG/DL Corrected Calcium 8.5-10.1 MG/DL Magnesium Level 2.2 1.6-2.4 MG/DL Total Bilirubin 0.8 0.1-1.0 MG/DL Aspartate Amino Transf (AST/SGOT) 39 H 5-34 U/L Alanine Aminotransferase (ALT/SGPT) 37 0-55 U/L Alkaline Phosphatase 78 40-136 U/L Myoglobin 127.3 H 10.0-92.0 NG/ML Troponin I < 0.028 < 0.028 <0.028 NG/ML B-Type Natriuretic Peptide 16.0 <100.0 PG/ML Total Protein 8.0 6.4-8.2 GM/DL Albumin 4.7 H 3.2-4.5 GM/DL Lipase 20 8-78 U/L My Orders Orders - GUSTAVO TOVAR Cbc With Automated Diff (04/02/21 13:46) Magnesium (04/02/21 13:46) Chest 1 View, Ap/Pa Only (04/02/21 13:46) Ekg Tracing (04/02/21 13:46) Comprehensive Metabolic Panel (04/02/21 13:46) Myoglobin Serum (04/02/21 13:46) Protime With Inr (04/02/21 13:46) Partial Thromboplastin Time (04/02/21 13:46) O2 (04/02/21 13:46) Monitor-Rhythm Ecg Trace Only (04/02/21 13:46) Lipid Panel (04/03/21 06:00) Ed Iv/Invasive Line Start (04/02/21 13:46) Lipase (04/02/21 13:46) BNP (04/02/21 13:46) Fibrin Degradation Products (04/02/21 13:46) Nitroglycerin 0.4 Mg Btl 25's (Nitrostat (04/02/21 14:00) Aspirin Chewable Tablet (Baby Aspirin Ch (04/02/21 14:00) Troponin I (04/02/21 13:50) Troponin I (04/02/21 15:45) Acetaminophen Tablet (Tylenol Tablet) (04/02/21 15:30) Lisinopril Tablet (Zestril Tablet) (04/02/21 15:30) Lisinopril Tablet (Zestril Tablet) (04/02/21 15:30) Medications Given in ED Current Medications Medications Dose Ordered Sig/Narinder Route Start Time Stop Time Status Last Admin Dose Admin Acetaminophen 1,000 mg ONCE ONCE PO 04/02/21 15:30 04/02/21 15:31 DC 04/02/21 15:40 1,000 MG Aspirin 324 mg ONCE ONCE PO 04/02/21 14:00 04/02/21 14:01 DC 04/02/21 13:55 324 MG Nitroglycerin 0.4 mg UD PRN SL 04/02/21 14:00 04/02/21 13:56 0.4 MG Vital Signs/I&O 04/02/21 04/02/21 04/02/21 14:03 14:20 16:02 Temp 36.2 36.2 Pulse 71 70 65 Resp 14 12 12 B/P (MAP) 138/96 (110) 183/107 (132) 155/114 (128) Pulse Ox 91 96 96 O2 Delivery Room Air Room Air Room Air Progress Progress Note #1: Time: 14:00 Progress Note Aspirin 324 mg and trial some nitroglycerin for her blood pressure and chest pressure. Some of the seems to be anxiety related. She has risk factors of obesity and smoking. With a negative troponin she would have a one-point heart score. Symptoms started approximately 7 hours prior to arrival. Plan a delta troponin. Progress Note #2: Time: 15:21 Progress Note Patient's blood pressure came down nicely with a single dose of nitroglycerin. She still has a headache so we will give her some Tylenol and 20 mg of lisinopril. Initial ECG Impression Date: Apr 02, 2021 Initial ECG Impression Time: 13:40 Initial ECG Rate: 71 Initial ECG Rhythm: Normal Sinus Initial ECG Intervals: Normal Initial ECG Impression: Normal Initial ECG Comparisson: Unchanged Comment Normal sinus rhythm without clinically relevant ST elevation or depression. Diagnostic Imaging Diagonstic Imaging: Xray Plain Films/CT/US/NM/MRI: chest Comments [facility] [place] NAME: ANUJA CULP [facility] REC#: [id number] PT STATUS: REG ER : 1985 PHYSICIAN: GUSTAVO TOVAR MD ADMIT DATE: 04/02/21/ER Draft Date of Exam:04/02/21 CHEST 1 VIEW, AP/PA ONLY EXAMINATION: Chest 1 view. HISTORY: Chest pain. COMPARISON: 11/22/2020 FINDINGS: Heart size and pulmonary vasculature are normal. The lungs are clear without consolidation, pleural effusion, or pneumothorax. The osseous structures are intact. IMPRESSION: 1. No acute radiographic abnormality in the chest. Dictated on workstation # [id number] Dict: 04/02/21 1443 Trans: 04/02/21 1444 [facility] [id number] Interpreted by: HEBERT ANN DO Electronically signed by: Reviewed: Reviewed by Me Departure Impression Primary Impression: Hypertension Qualified Codes: I10 - Essential (primary) hypertension Additional Impression: Chest pain Qualified Codes: R07.1 - Chest pain on breathing Disposition: HOME, SELF-CARE Condition: Stable Departure-Patient Inst. Decision time for Depature: 16:52 Referrals: [facility] (PCP) Primary Care Physician RITA KIMBROUGH (Family) Primary Care Physician Patient Instructions: Chest Pain, Adult ED, High Blood Pressure ED Add. Discharge Instructions: Make a follow-up appointment with your primary care doctor in the next couple weeks to manage your blood pressure. You may double up on your lisinopril hydrochlorothiazide by taking 1 tablet at night and 1 tablet in the morning. Check your blood pressure first thing in the morning when you wake up. Return to the ER for persistent chest pain that is severe. 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 Scripts Lisinopril/Hydrochlorothiazide (Lisinopril-Hctz 10-12.5 mg Tab) 1 Each Tablet 1 EACH PO BID for 14 Days, #28 TAB 0 Refills Prov: GUSTAVO TOVAR 04/02/21 Work/School Note: Work Release Form Date Seen in the Emergency Department: Apr 02, 2021 Return to Work: Apr 03, 2021 Restrictions: No Restrictions GUSTAVO TOVAR Apr 02, 2021 13:54
[2021-04-02 13:55] LABS: BASOPHILS # (AUTO) 0.1 10^3/uL (0.0-0.1); BASOPHILS % (AUTO) 1 % (0-10); EOSINOPHILS # (AUTO) 0.1 10^3/uL (0.0-0.3); EOSINOPHILS % (AUTO) 1 % (0-10); HEMATOCRIT 41 % (35-52); HEMOGLOBIN 14.1 g/dL (11.5-16.0); LYMPHOCYTES # (AUTO) 1.8 10^3/uL (1.0-4.0); LYMPHOCYTES % (AUTO) 21 % (12-44); MEAN CORPUSCULAR HEMOGLOBIN 33 pg (25-34); MEAN CORPUSCULAR HGB CONC 34 g/dL (32-36); MEAN CORPUSCULAR VOLUME 96 fL (80-99); MEAN PLATELET VOLUME 10.5 fL (9.0-12.2); MONOCYTES # (AUTO) 0.7 10^3/uL (0.0-1.0); MONOCYTES % (AUTO) 8 % (0-12); NEUTROPHILS % (AUTO) 69 % (42-75); PLATELET COUNT 224 10^3/uL (130-400); WHITE BLOOD COUNT 8.7 10^3/uL (4.3-11.0)
[2021-04-02] MEDS ORDERED: ASPIRIN 81 MG CHEW (CHILDREN'S ASA) PO ONE (14:00)
[2021-04-02] MEDS ORDERED: NITROGLYCERIN 0.4 MG SL TABS BTL 25'S SL PRN (14:00)
[2021-04-02 14:08] LABS: ALBUMIN 4.7 GM/DL (3.2-4.5); CHLORIDE 103 MMOL/L (98-107); POTASSIUM 3.4 MMOL/L (3.6-5.0); SODIUM 138 MMOL/L (135-145)
[2021-04-02 14:09] LABS: CALCIUM 9.8 MG/DL (8.5-10.1); PROTHROMBIN TIME PATIENT 13.5 SEC (12.2-14.7)
[2021-04-02 14:10] LABS: GLUCOSE 89 MG/DL (70-105)
[2021-04-02 14:12] LABS: BILIRUBIN,TOTAL 0.8 MG/DL (0.1-1.0); CARBON DIOXIDE 25 MMOL/L (21-32)
[2021-04-02 14:14] LABS: ALKALINE PHOSPHATASE 78 U/L (40-136); CREATININE SERUM 0.92 MG/DL (0.60-1.30); GFR ESTIMATED 70
[2021-04-02 14:15] LABS: BUN/CREATININE RATIO 11
[2021-04-02 14:17] LABS: ALANINE AMINOTRANSFERASE 37 U/L (0-55); MAGNESIUM 2.2 MG/DL (1.6-2.4)
[2021-04-02 14:18] LABS: LIPASE 20 U/L (8-78)
--- NOTE | 2021-04-02 14:45 | Diagnostic Imaging Report ---
EXAMINATION: Chest 1 view. HISTORY: Chest pain. COMPARISON: 11/22/2020 FINDINGS: Heart size and pulmonary vasculature are normal. The lungs are clear without consolidation, pleural effusion, or pneumothorax. The osseous structures are intact. IMPRESSION: 1. No acute radiographic abnormality in the chest. Dictated by: Dictated on workstation # [id number]
[2021-04-02] MEDS ORDERED: ACETAMINOPHEN 500 MG TAB (TYLENOL) PO ONE (15:30)
[2021-04-02] MEDS ORDERED: lisINopril 40 MG (PRINIVIL) TABLET PO ONE (15:30)
[2021-04-02] MEDS ORDERED: lisINopril 20 MG (PRINIVIL) TABLET PO NR (15:30)
[2021-04-02] MEDS ORDERED: LISI1TAB29 PO (16:53)
[2021-04-02 17:07] VITALS: BP 136/109
== END 2021-04-02 17:15 | disposition home or self-care (01) ==
LOC: EDUNIT# 13:30 → ER 13:32
DX: I10 Essential (primary) hypertension (principal); R07.9 Chest pain, unspecified; J45.909 Unspecified asthma, uncomplicated; E66.9 Obesity, unspecified; E03.9 Hypothyroidism, unspecified; G43.909 Migraine, unspecified, not intractable, without status migrainosus; F17.210 Nicotine dependence, cigarettes, uncomplicated; Z86.16 Personal history of COVID-19; Z68.41 Body mass index [BMI] 40.0-44.9, adult; Z79.890 Hormone replacement therapy; Z79.899 Other long term (current) drug therapy
CPT/HCPCS: 36415; 71045; 80053; 83690; 83735; 83874; 83880; 84484; 85025; 85379; 85610; 85730; 93005; 93041

== ENCOUNTER 2021-05-04 05:31 | Outpatient (RCR) | payer MEDICAID ==
[~2021-05-04] VITALS: Ht 172.7 cm; Wt 111.0 kg
[~2021-05-04 05:31] MED LIST changes: +HYDR-3922 PO; +LISI1TAB29 PO; +PROP20TA5 PO
== END 2021-05-04 12:32 | disposition home or self-care (01) ==
LOC: PREOP 05:31
PROVIDERS: ATTEND Surgery
DX: Z01.812 Encounter for preprocedural laboratory examination (principal); R58 Hemorrhage, not elsewhere classified; Z20.822 Contact with and (suspected) exposure to COVID-19
CPT/HCPCS: 87635

== ENCOUNTER 2021-05-07 08:50 | Day surgery (SDC) | payer MEDICAID ==
[~2021-05-07] VITALS: Ht 172.7 cm; Wt 111.0 kg
[2021-05-07] MEDS ORDERED: LACTATED RINGERS 1,000 ML IV STA (08:55)
[2021-05-07] MEDS ORDERED: LACTATED RINGERS 1,000 ML IV ONE (08:58)
[2021-05-07] MEDS ORDERED: HURRICAINE EXT TUBE (BENZOCAINE) XX PRN (09:00)
[2021-05-07 09:14] VITALS: BP 131/93
--- NOTE | 2021-05-07 09:22 | Progress Note-Pre Operative ---
Pre-Operative Progress Note H&P Reviewed The H&P was reviewed, patient examined and no changes noted. Time Seen by Provider: 09:22 Date H&P Reviewed: May 07, 2021 Time H&P Reviewed: : Pre-Operative Diagnosis: hx of antral ulcer, hx of NIMESH AYALA DO May 07, 2021 09:22
[2021-05-07] MEDS ORDERED: PROPOFOL INJECTION 50 ML IV ONE (10:31)
[2021-05-07 11:00] VITALS: BP 127/78
--- NOTE | 2021-05-07 11:01 | Anesthesia-General Post-Op ---
MAC Patient Condition Mental Status/LOC: Same as Preop Cardiovascular: Satisfactory Nausea/Vomiting: Absent Respiratory: Satisfactory Pain: Controlled Complications: Absent Post Op Complications Complications None Follow Up Care/Instructions Patient Instructions None needed. Anesthesiology Discharge Order Discharge Order Patient is doing well, no complaints, stable vital signs, no apparent adverse anesthesia problems. No complications reported per nursing. HASEBE BAER CRNA May 07, 2021 11:01
[2021-05-07 11:05] VITALS: BP 134/87
[2021-05-07 11:09] VITALS: BP 126/82
[2021-05-07 11:10] VITALS: BP 124/86
--- NOTE | 2021-05-07 11:11 | Progress Note-Post Operative ---
Post-Operative Progess Note Surgeon (s)/Molded Goods Controls Operator (s) Surgeon NIMESH CARRASCO DO Molded Goods Controls Operator: Flynn Smith, MSIII Pre-Operative Diagnosis hx of antral ulcer, hx of AIN Post-Operative Diagnosis Antral ulcer hiatal hernia colon polyp int and ext hemorrhoids Procedure & Operative Findings Date of Procedure 05/07/21 Procedure Performed/Findings EGD with bx Colon with hot bx PROCEDURE NOTE: After informed consent was obtained, the patient was brought to the endoscopy suite, placed in bed in left lateral decubitus position. She was administered IV sedation by the PLANTING MATERIAL REMOVER who then monitored vitals the entire time, heart rate, blood pressure and pulse ox and the scope was inserted down the mouth through the esophagus into the stomach. On the way down, noted some mild esophagitis, took a picture, pushed into the stomach, pushed past the antrum into the duodenum; duodenum looked good. Pulled back and did a biopsy of antrum; appeared to have some mild antral ulcers still. Then retroflexed the scope and saw a small hiatal hernia, took a picture of this and then did a biopsy of the body of the stomach. Finally pulled the scope into the GE junction, took another picture and then did a biopsy of the GE junction. Pushed the scope back into the stomach and suctioned all the air out of the stomach. At this point pulled the scope up the esophagus and out the mouth. Switched camera, switched gloves, went down below, started the colonoscopy. Pushed all the way into about 140 cm to get all the way to cecum, took a picture of the appendiceal orifice and able to get into the ileocecal valve and took a picture. Then slowly withdrew the scope, insufflating to look circumferentially at the bernardo starting in the cecum, up the ascending colon to the hepatic flexure, then down the transverse colon. Saw a flat polyp here and did a hot biopsy of the polyp. Continued on to the splenic flexure, into the descending colon, down into the sigmoid; where I saw another polyp and did another hot biopsy. Finally into the rectum, retroflexed in the rectal vault, saw some minimal internal hemorrhoids and took a picture of these. Had also taken a picture of large external hemorrhoids, but no masses or signs of AIN seen. The patient tolerated the procedure and she recovered in the endoscopy suite. Anesthesia Type IV sedation by PLANTING MATERIAL REMOVER Estimated Blood Loss Estimated blood loss (mL): scant Specimens/Packing Specimens Removed antral bx body of stomach bx GE jxn bx Transverse colon polyp sigmoid polyp NIMESH CARRASCO DO May 07, 2021 11:11
--- NOTE | 2021-05-07 11:12 | Endoscopy Discharge Instruct ---
Endo Procedure/Findings Findings 1.: Gastric Ulcer, Gastritis 2.: Hiatal Hernia 3.: Polyp 4.: Internal Hemorrhoids Discharge Instructions - Activity: You might feel a little sleepy until tomorrow. This is due to the medicine you received to relax you. Until tomorrow, you should: NOT drive a car, operate machinery or power tools. NOT drink any alcoholic beverages. NOT make any important decisions or sign importortant papers. Do not return to work until tomorrow, unless otherwise instructed. Resume previous activities tomorrow. Diet: Start by taking liquids. If you tolerate liquids, advance to solid food. 1.: EGD in 1 year 2.: Colonscopy in 5 years Notify Physician - If you experience excessive bleeding, unusual abdominal pain, fever, or chest pain, contact your doctor immediately. NIMESH CARRASCO DO May 07, 2021 11:12
[2021-05-07 11:35] VITALS: BP 126/80
== END 2021-05-07 12:00 | disposition home or self-care (01) ==
LOC: ENDO 08:50
PROVIDERS: ATTEND Surgery
DX: K29.50 Unspecified chronic gastritis without bleeding (principal); K20.90 Esophagitis, unspecified without bleeding; K63.5 Polyp of colon; K25.7 Chronic gastric ulcer without hemorrhage or perforation; K44.9 Diaphragmatic hernia without obstruction or gangrene; K64.4 Residual hemorrhoidal skin tags; K64.8 Other hemorrhoids; K62.82 Dysplasia of anus; E78.5 Hyperlipidemia, unspecified; E66.9 Obesity, unspecified; G62.9 Polyneuropathy, unspecified; E03.9 Hypothyroidism, unspecified; F17.210 Nicotine dependence, cigarettes, uncomplicated; Z68.37 Body mass index [BMI] 37.0-37.9, adult; Z79.890 Hormone replacement therapy; Z79.899 Other long term (current) drug therapy; Z98.51 Tubal ligation status; Z90.710 Acquired absence of both cervix and uterus; Z82.49 Family history of ischemic heart disease and other diseases of the circulatory system

== ENCOUNTER 2021-05-23 05:40 | Outpatient (CLI) | payer MEDICAID ==
[~2021-05-23] VITALS: Ht 172.7 cm; Wt 114.3 kg
[~2021-05-23 05:40] MED LIST changes: +SCOP1PAT10 TD; -SCOP1PAT11 TD
[2021-05-28] MEDS ORDERED: ALLERGY SHOTS SQ (13:55)
[2021-05-28] MEDS ORDERED: LEVO300T5 PO (13:55)
[2021-05-28] MEDS ORDERED: CETI10TA49 PO (13:55)
[2021-05-28] MEDS ORDERED: HYDR-3922 PO (13:55)
[2021-05-28] MEDS ORDERED: PROP20TA5 PO (13:55)
[2021-05-28] MEDS ORDERED: LEVO25TA5 PO (13:55)
[2021-05-28] MEDS ORDERED: MONT10TA21 PO (13:55)
[2021-05-28] MEDS ORDERED: NARA2.5T PO (13:55)
[2021-05-30] MEDS ORDERED: ACHD5005 PO (12:38)
== END 2021-05-28 14:07 | disposition home or self-care (01) ==
LOC: PREOP 05:40
PROVIDERS: ATTEND Surgery
DX: Z01.818 Encounter for other preprocedural examination (principal)

== ENCOUNTER 2021-05-30 09:40 | Day surgery (SDC) | payer MEDICAID ==
[2021-05-30] VITALS (9 sets, daily range): BP systolic 98–142; BP diastolic 68–97
[~2021-05-30] VITALS: Ht 172 cm; Wt 114.3 kg
[~2021-05-30 09:40] MED LIST changes: +ALLERGY SHOTS SQ; +CETI10TA49 PO; +MONT10TA21 PO; +NARA2.5T PO
--- NOTE | 2021-05-30 10:21 | Progress Note-Pre Operative ---
Pre-Operative Progress Note H&P Reviewed The H&P was reviewed, patient examined and no changes noted. Time Seen by Provider: 10:16 Date H&P Reviewed: May 30, 2021 Time H&P Reviewed: 10:16 Pre-Operative Diagnosis: External hemorrhoidal tissue, rectal pain NIMESH CARRASCO DO May 30, 2021 10:21
[2021-05-30] MEDS ORDERED: LACTATED RINGERS 1,000 ML IV PRN (10:30)
[2021-05-30] MEDS ORDERED: CLINDAMYCIN 600 MG/50 ML IVPB 50 ML IV ONE (10:30)
[2021-05-30] MEDS ORDERED: LIDOCAINE/EPI 1%-1:200,000 (XYLOCAINE) 30 ML VIAL ONE (10:40)
[2021-05-30] MEDS ORDERED: BUPIVACAINE 0.25% 30 ML (SENSORCAINE) VIAL ONE (10:41)
[2021-05-30] MEDS ORDERED: LIDOCAINE PF 2% 5 ML (XYLOCAINE) VIAL ONE (11:54)
[2021-05-30] MEDS ORDERED: fentaNYL INJ 100 MCG/2 ML AMP ONE (11:54)
[2021-05-30] MEDS ORDERED: proPOfol 200 MG/20 ML (DIPRIVAN) VIAL IV ONE (11:54)
[2021-05-30] MEDS ORDERED: MIDAZOLAM 2 MG/2 ML (VERSED) VIAL ONE (11:54)
[2021-05-30] MEDS ORDERED: SEVOFLURANE (ULTANE) 15 ML INHAL SOLN ONE (12:11)
[2021-05-30] MEDS ORDERED: ONDANSETRON 4 MG/2 ML (SDV) Z0FRAN ONE (12:11)
--- NOTE | 2021-05-30 12:35 | Progress Note-Post Operative ---
Post-Operative Progess Note Surgeon (s)/Slot Floor Person (s) Surgeon NIMESH CARRASCO DO Slot Floor Person: TRAM Suero Pre-Operative Diagnosis External hemorrhoidal tissue, rectal pain Post-Operative Diagnosis Internal and External hemorrhoids Procedure & Operative Findings Date of Procedure 05/30/21 Procedure Performed/Findings Exc of internal and external hemorrrhoids, from 6 o'clock to 12 o'clock Anesthesia Type LMA Estimated Blood Loss Estimated blood loss (mL): scant Specimens/Packing Specimens Removed int and ext hemorrhoids NIMESH CARRASCO DO May 30, 2021 12:35
--- NOTE | 2021-05-30 12:37 | Anesthesia-General Post-Op ---
General Patient Condition Mental Status/LOC: Same as Preop Cardiovascular: Satisfactory Nausea/Vomiting: Absent Respiratory: Satisfactory Pain: Controlled Complications: Absent Post Op Complications Complications None Follow Up Care/Instructions Patient Instructions None needed. Anesthesia/Patient Condition Patient Condition Patient is doing well, no complaints, stable vital signs, no apparent adverse anesthesia problems. No complications reported per nursing. HASEEB BAER CRNA May 30, 2021 12:37
[2021-05-30] MEDS ORDERED: ACHD5005 PO (12:38)
--- NOTE | 2021-05-30 12:41 | Discharge Inst-Surgical ---
Discharge Inst-Surgical Depart Medication/Instructions New, Converted or Re-Newed RX: Transmitted to Pharmacy (may also take Ibuprofen) Patient Instructions Follow up Appt: Make appointment for 1 week. [phone] Instructions: No lifting greater than 20 pounds. No strenuous activity. May shower in 24 hours or tub bath or soaking. Use incentive spirometer at home as directed. No Smoking Skin/Wound Care: May remove bandages in am. You need to leave the sutures in place, they will fall out on there own. Symptoms to Report: Appetite Changes, Extremity Discoloration, Numbness/Tingling, Swelling Increased, Bleeding Excessive, Eyesight Changes, Pain Increased, Urine Color Change, Constipation(Persistent), Fever over 101 degree F, Pain/Pressure in chest, Urinating Difficulty, Cough Up/Vomit Blood, Heart Beat Irreg/Pounding, Pain/Pressure in jaw, Cramps in feet or legs, Lightheadedness, Pain/Pressure in shoulder, Diarrhea(Persistent), Memory Changes Suddenly, Questions/Concerns, Weight gain consecutive days, Dizziness/Fainting, Nausea/Vomiting, Shortness of Breath, Weight gain over 2 pounds If questions or concerns contact your physician Or seek help at emergency department. Consults/Follow Up Patient Instructions: Lots of fluids and get a stool softener to keep BMs soft. Activity Activity as Tolerated: Yes Activity Instructions: Avoid Stress to Incision Driving Instructions: No Driving/Refer to Dr. Live Discharge Diet: No Restrictions Diet After 24 Hours: Clear Liquid if Nauseous If Any Problems/Questions/Issu: Contact Your Physician, Go to Emergency Room Skin/Wound Care Infection Signs and Symptoms: Increased Redness, Foul Odor of Wound, Increased Drainage, Skin Itchy or Has a Rash, Increased Swelling, Temperature Above 101 F Wound Care Comment: Buy over the counter lidocaine cream or gel to apply to the rectal area to help with pain Bathing Instructions: Tub (warm sitz baths will also help the area.), NIMESH Hicks DO May 30, 2021 12:41
[2021-05-30] MEDS ORDERED: PROMETHAZINE INJ 25 MG/ML (PHENERGAN) AMP IVP ONE (12:45)
[2021-05-30] MEDS ORDERED: morphine INJ 10 MG/ML 1ML (SYR OR VIAL) IVP ONE (12:45)
[2021-05-30] MEDS ORDERED: ONDANSETRON 4 MG/2 ML (SDV) Z0FRAN IVP PRN (12:45)
[2021-05-30] MEDS ORDERED: HYDROmorphone 2 MG/ML VIAL (DILAUDID) IV ONE (12:45)
[2021-05-30] MEDS ORDERED: fentaNYL INJ 100 MCG/2 ML AMP IVP ONE (12:45)
[2021-05-30] MEDS ORDERED: HYDROmorphone 2 MG/ML VIAL (DILAUDID) ONE (12:55)
--- NOTE | 2021-05-30 20:08 | OPERATIVE REPORT ---
DATE OF SERVICE: 05/30/2021 PREOPERATIVE DIAGNOSIS: External hemorrhoids, rectal pain. POSTOPERATIVE DIAGNOSIS: Internal and external hemorrhoids. PROCEDURE PERFORMED: Excision of internal and external hemorrhoids from about the 6 o'clock to the 12 o'clock position. SURGEON: Bin Cutler DO BIOLOGY TUTOR: Blake Morocho MS3. ANESTHESIA: LMA. BLOOD LOSS: Scant. SPECIMEN: Internal and external hemorrhoidal column sent to pathology. INDICATION FOR PROCEDURE: The patient is a 35-year-old female, who has been having rectal pain and feels a lump, when she wipes. FINDINGS: The patient had some external hemorrhoidal skin and some internal hemorrhoids, look like maybe a little bit of a prolapse. These were removed. PROCEDURE NOTE: After informed consent was obtained, the patient was brought to the operating room and placed on the table in a lithotomy position. She was sterilely prepped and draped in normal fashion. Local lidocaine was used to perform ischial tuberosity blocks as well as blocking the right side doing the perineal area and then around 20 mL of local was used. I then grasped the external hemorrhoidal tissue and some internal hemorrhoidal tissue with a column in one and started from the 6 o'clock and going around to the 12 o'clock cutting the internal hemorrhoids and external hemorrhoidal skin off. Once this was done, I then closed this with a 2-0 chromic suture and approximately, six [id number] sutures to attach to the skin to the rectal mucosa. This closed nicely. There was no bleeding. I then placed a packing. The patient tolerated the procedure. She was sent to recovery room in a stable condition. Sponge, instrument and needle count correct at the end of the case. Job ID: [id number] DocumentID: [id number] Dictated Date: 05/30/2021 12:44:19 Matcher Offbearer Date: 05/30/2021 20:07:19 Dictated By: BIN CUTLER DO [facility]
== END 2021-05-30 14:15 ==
LOC: SDC 09:40
PROVIDERS: ATTEND Surgery
DX: K64.8 Other hemorrhoids (principal); K64.4 Residual hemorrhoidal skin tags; K25.7 Chronic gastric ulcer without hemorrhage or perforation; K20.90 Esophagitis, unspecified without bleeding; K64.0 First degree hemorrhoids; K44.9 Diaphragmatic hernia without obstruction or gangrene; K62.82 Dysplasia of anus; I10 Essential (primary) hypertension; J45.909 Unspecified asthma, uncomplicated; E78.2 Mixed hyperlipidemia; G43.909 Migraine, unspecified, not intractable, without status migrainosus; G62.9 Polyneuropathy, unspecified; M06.9 Rheumatoid arthritis, unspecified; E03.9 Hypothyroidism, unspecified; F17.210 Nicotine dependence, cigarettes, uncomplicated; Z79.891 Long term (current) use of opiate analgesic; Z79.890 Hormone replacement therapy; Z79.899 Other long term (current) drug therapy; Z80.49 Family history of malignant neoplasm of other genital organs
CPT/HCPCS: 87081

== ENCOUNTER 2021-06-23 08:45 | Emergency (ER) | payer MEDICAID ==
[~2021-06-23] VITALS: Ht 172.7 cm; Wt 117.9 kg
[2021-06-23] MEDS ORDERED: LACTATED RINGERS 1,000 ML IV ONE (09:30)
[2021-06-23] MEDS ORDERED: PROMETHAZINE INJ 25 MG/ML (PHENERGAN) AMP IVP ONE (09:30)
[2021-06-23] MEDS ORDERED: KETOROLAC 30 MG/ML VIAL IVP ONE (09:30)
--- NOTE | 2021-06-23 09:36 | ED Headache ---
General Chief Complaint: Head/Cervical Problems Stated Complaint: MIGRAINE Nursing Triage Note: PT AMB TO RM 6 WITH COMPLAINT OF MIGRAINE. STATES PAIN STARTED THREE DAYS AGO. PT HAS HX OF PITUITARY ADENOMA. Source: patient Exam Limitations: no limitations History of Present Illness Date Seen by Provider: Jun 23, 2021 Time Seen by Provider: 09:05 Initial Comments This 35-year-old young lady presents to the emergency room with left posterior headache x3 days that has been worsened since 2200 last night. She has been alternating Tylenol and ibuprofen. She vomited multiple times last night. She sometimes uses marijuana to treat headaches and that was not effective last night. Tylenol and ibuprofen also have not been effective. She is accustomed to having migraine headaches but this is more intense than her usual and she has not had one this intense for a while. She describes seeing floaters and having light sensitivity. She reports a history of pituitary adenoma and hypothyroidism. She is due to have her thyroid labs checked this month. She has dry mucous membranes on exam. She reports being tested for flu and Covid on Friday. Test were reportedly negative. She was diagnosed with bilateral otitis media and was treated with a azithromycin. Allergies and Home Medications Allergies Coded Allergies: Bacitracin Zinc (Unverified Allergy, Intermediate, HIVES, RESP PROBLMEMS, 07/09/17) Penicillins (Unverified Allergy, Intermediate, RASH,, 07/09/17) bacitracin (Unverified Allergy, Intermediate, HIVES, RESP PROBLMEMS, 07/09/17) gramicidin D (Unverified Allergy, Intermediate, HIVES, RESP PROBLMEMS, 07/09/17) methylprednisolone sod succ (Unverified Allergy, Intermediate, RESP DIFFICULTY, 07/09/17) neomycin sulfate (Unverified Allergy, Intermediate, HIVES, RESP PROBLMEMS, 07/09/17) polymyxin B (Unverified Allergy, Intermediate, HIVES, RESP PROBLMEMS, 07/09/17) polymyxin B sulfate (Unverified Allergy, Intermediate, HIVES, RESP PROBLMEMS, 07/09/17) sulfamethoxazole (Verified Allergy, Unknown, Hives, 04/25/20) trimethoprim (Verified Allergy, Unknown, Hives, 04/25/20) Metronidazole HCl (Unverified Adverse Reaction, Mild, N/V, 07/09/17) metronidazole (Unverified Adverse Reaction, Mild, N/V, 07/09/17) Patient Home Medication List Home Medication List Reviewed: Yes Azithromycin (Azithromycin) 250 Mg Tablet, 250 MG PO UD Prescribed by: TIEN SIEGEL on 06/23/21 111 Cetirizine HCl (Zyrtec) 10 Mg Tablet, 10 MG PO DAILY, (Reported) Entered as Reported by: REYNALDO MACKEY on 05/28/21 135 Hydralazine HCl (Hydralazine HCl) 10 Mg Tablet, 10 MG PO DAILY PRN PRN for BLOOD PRESSURE, (Reported) Entered as Reported by: REYNALDO MACKEY on 05/28/21 1355 Hydrocodone Bit/Acetaminophen (HYDROcodone/APAP 5 MG/325 MG TAB) 1 Tab Tab, 1 TAB PO Q8H PRN for PAIN-MODERATE (5-7) Prescribed by: NIMESH CARRASCO on 05/30/21 1238 Levothyroxine Sodium (Levothyroxine Sodium) 300 Mcg Tablet, 300 MCG PO DAILY, (Reported) Entered as Reported by: REYNALDO MACKEY on 05/28/21 135 Levothyroxine Sodium (Levothyroxine Sodium) 25 Mcg Tablet, 25 MCG PO DAILY, (Reported) Entered as Reported by: REYNALDO MACKEY on 05/28/21 135 Montelukast Sodium (Singulair) 10 Mg Tablet, 10 MG PO DAILY, (Reported) Entered as Reported by: REYNALDO MACKEY on 05/28/21 135 Naratriptan HCl (Amerge) 2.5 Mg Tablet, 2.5 MG PO NEEDED PRN for HEADACHE, (Reported) Entered as Reported by: REYNALDO MACKEY on 05/28/21 135 Ondansetron (Ondansetron Odt) 4 Mg Tab.rapdis, 4 MG SL Q4H PRN for NAUSEA/VOMITING Prescribed by: TIEN SIEGEL on 06/23/21 111 Promethazine HCl (Promethazine Tablet) 25 Mg Tablet, 25 MG PO Q8H PRN for NAUSEA/VOMITING-2ND LINE Prescribed by: TIEN SIEGEL on 06/23/21 111 Propranolol HCl (Propranolol HCl) 20 Mg Tablet, 20 MG PO TID, (Reported) Entered as Reported by: REYNLADO MACKEY on 05/28/21 1355 [Allergy Shots] , SQ WEEK, (Reported) Entered as Reported by: REYNALDO MACKEY on 05/28/21 1355 Review of Systems Review of Systems Constitutional: no symptoms reported Eyes: See HPI Ears, Nose, Mouth, Throat: see HPI [facility] Respiratory: no symptoms reported Cardiovascular: no symptoms reported Gastrointestinal: see HPI Genitourinary: no symptoms reported : No Musculoskeletal: no symptoms reported Skin: no symptoms reported Psychiatric/Neurological: See HPI Past Hksiivk-Mostte-Msismy Hx Patient Social History Tobacco Use?: Yes Tobacco type used: Cigarettes Use of E-Cig and/or Vaping dev: No Substance use?: Yes Substance type: Marijuana Alcohol Use?: No Pt feels they are or have been: No Immunizations Up To Date Tetanus Booster (TDap): More than 5yrs Seasonal Allergies Seasonal Allergies: Yes Past Medical History Surgeries: Yes (Hemorrhoidectomy) Adenoidectomy, Gallbladder, 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, Orthopedic, Thyroidectomy (Radioactive thyroid ablation), Tonsillectomy, 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 Respiratory: Yes Asthma Currently Using CPAP: No Currently Using BIPAP: No Cardiac: Yes (HX PERICARDIAL EFFUSION, HEART CATH-CLEAR) Hypertension, Rheumatic Fever Neurological: Yes (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, pituitary adenoma) Headaches /Migraines, Neuropathy 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 Disorders: Yes Female 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 Disorders: Menstrual Problems, 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, Ovarian Cyst SCAFFOLD ERECTOR History: 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 HIV/AIDS: No Genitourinary: No Gastrointestinal: Yes Chronic Constipation, Hemorrhoids Musculoskeletal: Yes Rheumatoid Arthritis, Chronic Back Pain Endocrine: Yes (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) Hypothyroidsim HEENT: Yes (GLASSES/CONTACTS) Loss of Vision: Denies Hearing Impairment: Denies Cancer: Yes (Pituitary adenoma) Psychosocial: Yes Sleep Difficulties, Anxiety, Bipolar, Depression Integumentary: No Blood Disorders: No Adverse Reaction/Blood Tranf: No (N/A) Family Medical History Asthma son CANC 19 MOTHER (CANCER OF GALLBLADDER AND UTERUS) Diabetes mellitus G8 SISTER FH: cancer Hypertension 19 FATHER Psychosocial problem G8 SISTER (ANXIETY) Thyroid disease 19 MOTHER (HYPERTHYROID) Heart Disease, Hypertension Physical Exam Vital Signs Vital Signs - First Documented 06/23/21 08:54 Temp 36.5 Pulse 87 Resp 22 B/P (MAP) 133/99 (110) Pulse Ox 95 O2 Delivery Room Air Capillary Refill : Less Than 3 Seconds Height, Weight, BMI Height: 5'8.00" Weight: 260lbs. 4.0oz. 118.432597wn; 39.00 BMI Method:Stated General Appearance: WD/WN, no apparent distress, obese HEENT: PERRL/EOMI, normal ENT inspection, TM abnormal (R) (Erythematous), TM abnormal (L) (Erythematous), other (Oropharynx dry) Neck: normal inspection Cardiovascular: regular rate, rhythm, no edema, no murmur Respiratory: lungs clear, normal breath sounds, no respiratory distress Gastrointestinal: normal bowel sounds, non tender, soft Extremities: normal inspection Psychiatric: alert, oriented x 3 Crainal Nerves: normal hearing, normal speech, PERRL Skin: normal color, warm/dry Progress/Results/Core Measures Results/Orders Lab Results Laboratory Tests Test 06/23/21 09:30 Range/Units Sodium Level 136 135-145 MMOL/L Potassium Level 3.3 L 3.6-5.0 MMOL/L Chloride Level 102 98-107 MMOL/L Carbon Dioxide Level 20 L 21-32 MMOL/L Anion Gap 14 5-14 MMOL/L Blood Urea Nitrogen 13 7-18 MG/DL Creatinine 0.98 0.60-1.30 MG/DL Estimat Glomerular Filtration Rate 65 BUN/Creatinine Ratio 13 Glucose Level 97 70-105 MG/DL Calcium Level 9.3 8.5-10.1 MG/DL Magnesium Level 2.5 H 1.6-2.4 MG/DL Thyroid Stimulating Hormone (TSH) 154.76 H 0.35-4.94 UIU/ML Free Thyroxine < 0.40 L 0.70-1.48 NG/DL My Orders Orders - TIEN BOUDREAUX MD Ketorolac Injection (Toradol Injection) (06/23/21 09:30) Promethazine Injection (Phenergan Injec (06/23/21:30) Ed Iv/Invasive Line Start (06/23/21:26) Lactated Ringers (Lr 1000 Ml Iv Solution (06/23/21:30) Basic Metabolic Panel (06/23/21:) Magnesium (06/23/21:) Thyroid Stimulating Hormone (06/23/21:) Free T4 (Free Thyroxine) (11/6/21 09:27) Potassium Chloride (Tablet) (Rigoor Randy Ta (06/23/21 11:00) Medications Given in ED Current Medications Medications Dose Ordered Sig/Narinder Route Start Time Stop Time Status Last Admin Dose Admin Ketorolac Tromethamine 30 mg ONCE ONCE IVP 06/23/21 09:30 06/23/21 09:31 DC 06/23/21 09:43 30 MG Lactated Ringer's 1,000 ml @ 0 mls/hr Q0M ONCE IV 06/23/21 09:30 06/23/21 09:31 DC 06/23/21 09:43 0 MLS/HR Potassium Chloride 20 meq ONCE ONCE PO 06/23/21 11:00 06/23/21 11:01 DC 06/23/21 11:21 20 MEQ Promethazine HCl 25 mg ONCE ONCE IVP 06/23/21 09:30 06/23/21 09:31 DC 06/23/21 09:43 25 MG Vital Signs/I&O 06/23/21 06/23/21 08:54 11:25 Temp 36.5 Pulse 87 81 Resp 22 20 B/P (MAP) 133/99 (110) 129/88 Pulse Ox 95 95 O2 Delivery Room Air Room Air Blood Pressure Mean: 110 Progress Progress Note #1: Time: 09:35 Progress Note Patient is being treated with Toradol, Phenergan, and IV fluids. We will check her electrolytes and thyroid labs. Progress Note #2: Progress Note Patient symptoms improved with treatment. Potassium was slightly low and was replaced orally. TSH was markedly elevated and free T4 was undetectable. Patient confessed that she had not been taking her levothyroxine consistently and had missed multiple doses in the past week. I stressed the importance of using her medications as prescribed and taking levothyroxine every day. I also expressed my concern that her thyroid dysregulation was contributing to her headache syndromes. Patient expressed understanding. She found a tow driver to take her home in improved condition. Departure Impression Primary Impression: Migraine headache Qualified Codes: G43.109 - Migraine with aura, not intractable, without status migrainosus Additional Impressions: Nausea & vomiting Qualified Codes: R11.2 - Nausea with vomiting, unspecified Hypothyroidism Qualified Codes: E03.9 - Hypothyroidism, unspecified Noncompliance with medication regimen Bilateral otitis media Qualified Codes: H66.003 - Acute suppurative otitis media without spontaneous rupture of ear drum, bilateral Disposition: 01 HOME, SELF-CARE Condition: Improved Departure-Patient Inst. Decision time for Depature: 11:07 Referrals: RITA KIMBROUGH (PCP/Family) Primary Care Physician Patient Instructions: Hypothyroidism (Underactive Thyroid), Migraines (DC) Add. Discharge Instructions: Drink plenty of clear liquids to stay well-hydrated. Rest in a quiet calm environment for the remainder of the day. It is extremely important that you take your thyroid medication every day to keep your hormone levels stable. Please take your levothyroxine as soon as you return home and take every morning when you wake up on an empty stomach. Please follow-up with your primary care provider for thyroid regulation management and report you are missing doses when you discuss your thyroid management. Today your TSH was 154 and your free T4 was not detectable. Follow-up with your primary care provider soon as possible. Please call first thing Friday to arrange an appointment. For headache you may take ibuprofen up to 600 mg every 6 hours as needed and/or Tylenol (acetaminophen) up to 1000 mg every 6 hours. For your sinuses you may continue using Flonase 2 sprays on each side daily. When you are having more issues with plugged up ears or sinus symptoms, you may temporarily increase to twice a day dosing. Also complete the repeat Z-Tl you were prescribed. Use Zofran (ondansetron) as prescribed for nausea and vomiting. Use Phenergan (promethazine) as a backup medication for nausea and vomiting not well controlled by Zofran. Please be advised Phenergan will make you drowsy. Call with questions or concerns. Return to the ER if you have worsening symptoms. All discharge instructions reviewed with patient and/or family. Voiced understanding. Scripts Azithromycin (Azithromycin) 250 Mg Tablet 250 MG PO UD, #6 TAB TAKE 2 TABLETS ON DAY ONE THEN TAKE 1 TABLET DAILY FOR FOUR MORE DAYS Prov: TIEN BOUDREAUX MD 06/23/21 Promethazine HCl (Promethazine Tablet) 25 Mg Tablet 25 MG PO Q8H PRN for NAUSEA/VOMITING-2ND LINE, #5 TAB Prov: TIEN BOUDREAUX MD 06/23/21 Ondansetron (Ondansetron Odt) 4 Mg Tab.rapdis 4 MG SL Q4H PRN for NAUSEA/VOMITING, #10 TAB Prov: TIEN BOUDREAUX MD 06/23/21 TIEN BOUDREAUX MD Jun 23, 2021 09:36
[2021-06-23 09:59] LABS: BUN/CREATININE RATIO 13; CALCIUM 9.3 MG/DL (8.5-10.1); CARBON DIOXIDE 20 MMOL/L (21-32); CHLORIDE 102 MMOL/L (98-107); CREATININE SERUM 0.98 MG/DL (0.60-1.30); GFR ESTIMATED 65; GLUCOSE 97 MG/DL (70-105); MAGNESIUM 2.5 MG/DL (1.6-2.4); POTASSIUM 3.3 MMOL/L (3.6-5.0); SODIUM 136 MMOL/L (135-145)
[2021-06-23 10:50] LABS: FREE T4 (FREE THYROXINE) < 0.40 NG/DL (0.70-1.48)
[2021-06-23] MEDS ORDERED: KCL 10 MEQ TAB (MICRO K) PO ONE (11:00)
[2021-06-23] MEDS ORDERED: PROM25TA14 PO (11:10)
[2021-06-23] MEDS ORDERED: ONDA4TAB11 SL (11:10)
[2021-06-23] MEDS ORDERED: AZIT250T12 PO (11:15)
[2021-06-23 11:25] VITALS: BP 129/88
== END 2021-06-23 11:25 | disposition home or self-care (01) ==
LOC: EDUNIT# 08:45 → ER 08:46
DX: G43.109 Migraine with aura, not intractable, without status migrainosus (principal); R11.2 Nausea with vomiting, unspecified; E03.9 Hypothyroidism, unspecified; H66.003 Acute suppurative otitis media without spontaneous rupture of ear drum, bilateral
CPT/HCPCS: 36415; 80048; 83735; 84439; 84443; 96361; 96374; 96375

== ENCOUNTER → 2021-09-17 | Outpatient (RCR) | payer MEDICAID ==
[~2021-09-17] VITALS: Ht 173 cm; Wt 110.0 kg
[~2021-09-17] MED LIST changes: +AZIT250T12 PO; +CYCL10TA25 PO; -LISI1TAB29 PO; +LISI1TAB44 PO; +MONT-40 PO; -MONT10TA32 PO; +ONDA4TAB11 SL; +PROM25TA14 PO
== END ==
LOC: PREOP 05:37 → EDSTATUS 10:30 → PREOP 15:02
PROVIDERS: ATTEND Surgery
DX: Z01.818 Encounter for other preprocedural examination (principal)

== ENCOUNTER 2021-09-24 07:31 | Day surgery (SDC) | payer MEDICAID ==
[~2021-09-24] VITALS: Ht 173 cm; Wt 110.0 kg
[2021-09-24] MEDS ORDERED: LACTATED RINGERS 1,000 ML IV STA (07:39)
[2021-09-24] MEDS ORDERED: MIDAZOLAM 2 MG/2 ML (VERSED) VIAL ONE (07:45)
[2021-09-24] MEDS ORDERED: proPOfol 200 MG/20 ML (DIPRIVAN) VIAL IV ONE ×2 (07:45→09:01)
[2021-09-24 07:51] VITALS: BP 138/88
--- NOTE | 2021-09-24 08:27 | Progress Note-Pre Operative ---
Pre-Operative Progress Note H&P Reviewed The H&P was reviewed, patient examined and no changes noted. Time Seen by Provider: 08:22 Date H&P Reviewed: Sep 24, 2021 Time H&P Reviewed: 08:22 Pre-Operative Diagnosis: Burning epigastric pain NIMESH CARRASCO DO Sep 24, 2021 08:27
[2021-09-24] MEDS: HURRICAINE EXT TUBE (BENZOCAINE) XX PRN ×2 (08:51→09:08)
[2021-09-24 09:10] VITALS: BP 131/86
--- NOTE | 2021-09-24 09:14 | Progress Note-Post Operative ---
Post-Operative Progess Note Surgeon (s)/Machine Tester (s) Surgeon NIMESH CARRASCO DO Machine Tester: none Pre-Operative Diagnosis Burning epigastric pain Post-Operative Diagnosis Gastritis Sliding hiatal hernia Esophagitis Procedure & Operative Findings Date of Procedure 09/24/21 Procedure Performed/Findings EGD with bx PROCEDURE NOTE: After informed consent was obtained, the patient was brought to the endoscopy suite, placed in bed in left lateral decubitus position. She was administered IV sedation by the CREDIT ADMINISTRATION SPECIALIST who then monitored vitals the entire time, heart rate, blood pressure and pulse ox and the scope was inserted down the mouth through the esophagus into the stomach. On the way down, noted some mild esophagitis, pushed into the stomach and pushed past the antrum into the duodenum. Duodenum looked good but did see some pretty severe gastritis near the antrum. Pulled back and did a biopsy of antrum and then retroflexed the scope. Saw more gastritis in the body and saw a small sliding hiatal hernia; probably a cm or less. I took a picture of this and then pulled the scope into the GE junction. I took a picture of the esophagitis and then did a biopsy of the GE junction. Pushed the scope back into the stomach, suctioned all the air out of the stomach. At this point pulled the scope up the esophagus and out the mouth. The patient tolerated the procedure, and she recovered in endoscopy suite. Anesthesia Type IV sedation by CREDIT ADMINISTRATION SPECIALIST Estimated Blood Loss Estimated blood loss (mL): scant Specimens/Packing Specimens Removed antral bx body of stomach bx GE jxn bx NIMESH CARRASCO DO Sep 24, 2021 09:14
[2021-09-24 09:15] VITALS: BP 139/78
--- NOTE | 2021-09-24 09:15 | Endoscopy Discharge Instruct ---
Endo Procedure/Findings Findings 1.: Gastritis 2.: Hiatal Hernia 3.: Other Findings (Esophagitis) Discharge Instructions - Activity: You might feel a little sleepy until tomorrow. This is due to the medicine you received to relax you. Until tomorrow, you should: NOT drive a car, operate machinery or power tools. NOT drink any alcoholic beverages. NOT make any important decisions or sign importortant papers. Do not return to work until tomorrow, unless otherwise instructed. Resume previous activities tomorrow. Diet: Start by taking liquids. If you tolerate liquids, advance to solid food. 1.: EGD in 3 years Notify Physician - If you experience excessive bleeding, unusual abdominal pain, fever, or chest pain, contact your doctor immediately. NIMESH CARRASCO DO Sep 24, 2021 09:15
[2021-09-24 09:18] VITALS: BP 139/78
[2021-09-24 09:35] VITALS: BP 136/92
[2021-09-24 10:10] VITALS: BP 136/92
--- NOTE | 2021-09-24 12:30 | Anesthesia-General Post-Op ---
MAC Patient Condition Mental Status/LOC: Same as Preop Cardiovascular: Satisfactory Nausea/Vomiting: Absent Respiratory: Satisfactory Pain: Controlled Complications: Absent Post Op Complications Complications None Follow Up Care/Instructions Patient Instructions None needed. Anesthesiology Discharge Order Discharge Order Patient is doing well, no complaints, stable vital signs, no apparent adverse anesthesia problems. No complications reported per nursing. RHONDA GUILLAUME CRNA Sep 24, 2021 12:30
== END 2021-09-24 10:15 | disposition home or self-care (01) ==
LOC: ENDO 07:31
PROVIDERS: ATTEND Surgery
DX: K22.70 Barrett's esophagus without dysplasia (principal); K31.A15 Gastric intestinal metaplasia without dysplasia, involving multiple sites; K29.70 Gastritis, unspecified, without bleeding; K44.9 Diaphragmatic hernia without obstruction or gangrene; K20.90 Esophagitis, unspecified without bleeding; E03.9 Hypothyroidism, unspecified; E78.2 Mixed hyperlipidemia; I10 Essential (primary) hypertension; J45.909 Unspecified asthma, uncomplicated; E66.9 Obesity, unspecified; F17.210 Nicotine dependence, cigarettes, uncomplicated; Z68.36 Body mass index [BMI] 36.0-36.9, adult; Z79.890 Hormone replacement therapy

== ENCOUNTER → 2021-10-08 | Outpatient (CLI) | payer MEDICAID ==
[~2021-10-08] MED LIST changes: +BARIUM for suspension 96% w/w (Vanilla Silq Medium Density) PO ONE; +BARIUM for suspension 98% w/w (Vanilla Silq High Density) PO ONE
--- NOTE | 2021-10-08 13:53 | Diagnostic Imaging Report ---
EXAMINATION: Barium swallow esophagram. INDICATION: Dysphagia. TECHNIQUE: There are no prior esophagrams available for comparison. Reportedly, the patient had an endoscopic procedure last week, According to the patient, a small hiatal hernia was identified. For this study, double contrast was utilized. The patient swallowed the contrast material with some difficulty as she was nauseated throughout the exam. There was no delay or obstruction to the passage of contrast through the esophagus. There is no mass or stricture identified. On the initial swallow, there was a suggestion of a small outpouching along the posterior aspect of the oral cavity. This finding was difficult to appreciate on the subsequent images. It would be unlikely that this is a Zenker's diverticulum as this location is not typical for a Zenker's diverticulum. There does appear to be a very small sliding hiatal hernia. There is no sign of reflux. The gastric motility was somewhat sluggish; however, the contrast did extend from the stomach into the small bowel. There is no gastric mass or ulceration evident. IMPRESSION: 1. There is a very small sliding hiatal hernia but there is no evidence for reflux or for esophagitis. 2. There is no mass or stricture noted. 3. The stomach and duodenum are grossly unremarkable. Dictated by: Dictated on workstation # [id number]
== END ==
LOC: RAD 09:13
PROVIDERS: ATTEND Surgery
DX: K44.9 Diaphragmatic hernia without obstruction or gangrene (principal)
CPT/HCPCS: 74220

== ENCOUNTER 2021-12-07 22:00 | Emergency (ER) | payer MEDICAID ==
[~2021-12-07] VITALS: Ht 172.7 cm; Wt 108.8 kg
[~2021-12-07 22:00] MED LIST changes: -BARIUM for suspension 96% w/w (Vanilla Silq Medium Density) PO ONE; -BARIUM for suspension 98% w/w (Vanilla Silq High Density) PO ONE; +FLUC100T10 PO; -FLUC100T6 PO
[2021-12-07] MEDS ORDERED: LACTATED RINGERS 1,000 ML IV STA (22:23)
[2021-12-07] MEDS ORDERED: ONDANSETRON 4 MG/2 ML (SDV) Z0FRAN IVP ONE (22:30)
[2021-12-07] MEDS ORDERED: PANTOPRAZOLE 40 MG (PROTONIX) VIAL IV ONE (22:30)
[2021-12-07 22:39] LABS: BASOPHILS % (AUTO) 0 % (0-10); EOSINOPHILS % (AUTO) 1 % (0-10); HEMATOCRIT 49 % (35-52); HEMOGLOBIN 16.5 g/dL (11.5-16.0); LYMPHOCYTES # (AUTO) 0.7 10^3/uL (1.0-4.0); LYMPHOCYTES % (AUTO) 9 % (12-44); MEAN CORPUSCULAR HEMOGLOBIN 32 pg (25-34); MEAN CORPUSCULAR HGB CONC 34 g/dL (32-36); MEAN CORPUSCULAR VOLUME 95 fL (80-99); MEAN PLATELET VOLUME 10.6 fL (9.0-12.2); MONOCYTES # (AUTO) 0.4 10^3/uL (0.0-1.0); MONOCYTES % (AUTO) 6 % (0-12); NEUTROPHILS % (AUTO) 83 % (42-75); PLATELET COUNT 239 10^3/uL (130-400); WHITE BLOOD COUNT 7.2 10^3/uL (4.3-11.0)
[2021-12-07 22:42] LABS: ALBUMIN 4.4 GM/DL (3.2-4.5); POTASSIUM 3.5 MMOL/L (3.6-5.0)
[2021-12-07 22:43] LABS: CALCIUM 9.4 MG/DL (8.5-10.1)
[2021-12-07 22:45] LABS: TOTAL PROTEIN 7.1 GM/DL (6.4-8.2)
[2021-12-07 22:46] LABS: BILIRUBIN,TOTAL 0.7 MG/DL (0.1-1.0)
[2021-12-07 22:48] LABS: CREATININE SERUM 0.91 MG/DL (0.60-1.30)
[2021-12-07] MEDS ORDERED: NS 100 ML (IVPB) BAG IV ONE (23:30)
[2021-12-07] MEDS ORDERED: CATHETER FLUSH 10 ML SYR IV PRN (23:30)
[2021-12-07] MEDS ORDERED: IOHEXOL 350 MG/ML 150 ML (OMNIPAQUE 350) VIAL IV ONE (23:30)
[2021-12-07 23:49] LABS: BILIRUBIN,URINE NEGATIVE (NEGATIVE); CLARITY,URINE SL CLOUDY; COLOR,URINE YELLOW; GLUCOSE, URINE (UA) NEGATIVE (NEGATIVE); KETONES,URINE NEGATIVE (NEGATIVE); LEUKOCYTE ESTERASE ,URINE TRACE (NEGATIVE); NITRITE,URINE NEGATIVE (NEGATIVE); PROTEIN,URINE NEGATIVE (NEGATIVE)
[2021-12-08 00:01] LABS: BACTERIA,URINE FEW /HPF
[2021-12-08 00:04] LABS: AMPHETAMINE SCREEN, URINE NEGATIVE (NEGATIVE); BARBITURATE SCREEN URINE NEGATIVE (NEGATIVE); BENZODIAZEPINES SCREEN URINE NEGATIVE (NEGATIVE); CANNABINOID SCREEN, URINE POSITIVE (NEGATIVE); COCAINE SCREEN URINE NEGATIVE (NEGATIVE); METHADONE STAT NEGATIVE (NEGATIVE); METHAMPHETAMINE SCREEN URINE S NEGATIVE (NEGATIVE); OPIATE SCREEN URINE NEGATIVE (NEGATIVE); OXYCODONE STAT NEGATIVE (NEGATIVE); PROPOXYPHENE STAT NEGATIVE (NEGATIVE); TRICYCLIC ANTIDEPRESSANTS SCRE NEGATIVE (NEGATIVE)
--- NOTE | 2021-12-08 00:08 | ED Abdominal Pain ---
General Chief Complaint: Abdominal/GI Problems Stated Complaint: UPPER ABD PAIN Nursing Triage Note: PT AMBULATORY TO ROOM. PT STATES SHE HAS BEEN HAVING UPPER RIGHT QUADRANT INTO THE STERNUM PAIN FOR 3 DAYS. PT STATES SHE HAS A HIATAL HERNIA AND HAS BEEN TAKING HER PANTOPRAZOLE FOR THIS. PT STATES THIS PAIN WORSENS WHEN SHE EATS, AND HAD AN EPISODE OF VOMITING THIS AFTERNOON Source of Information: Patient History of Present Illness Date Seen by Provider: Dec 07, 2021 Time Seen by Provider: 22:15 Initial Comments PT ARRIVES VIA POV FROM HOME C/O EPIGASTRIC PAIN AND HEARTBURN X 3 DAYS STATES SYMPTOMS ARE MUCH WORSE WITH EATING OR DRINKING ANYTHING STATES SHE HAS NOT HAD ANY FOOD FOR 3 DAYS--ONLY LIQUIDS--AND STATES THAT IT FEELS LIKE EVERYTHING GETS STUCK ABOUT MID CHEST LEVEL AND UPPER ABDOMEN AREA. STATES PAIN RADIATES THROUGH TO HER BACK PT STATES SHE WAS ABLE TO VOMIT ABOUT 1630 AND HER SYMPTOMS WERE MUCH BETTER, THEN HAVE GOTTEN WORSE SHE HAS TRIED TO DRINK MORE LIQUIDS THIS EVENING. STATES SHE ATE SOUP AT MIDNIGHT LAST NIGHT--LAST ATTEMPT AT EATING FOOD NO NAUSEA AT THIS TIME NO SHORTNESS OF BREATH NO FEVER HAS BEEN URINATING NORMALLY. PT HAS IBS AND ALTERNATES BETWEEN DIARRHEA AND CONSTIPATION--HAS HAD 4 EPISODES OF DIARRHEA TODAY--NORMAL FOR HER PT HAS BEEN DX WITH A SLIDING HIATAL HERNIA AND LOVELL'S ESOPHAGITIS--HAD EGD DONE IN SEPTEMBER [address] CARRASCO PT IS ON PANTOPRAZOLE PT HAS HAD PREVIOUS CHOLECYSTECTOMY AND HYSTERECTOMY/LEFT SALPINGO-OOPHORECTOMY. NO OTHER ABDOMINAL SURGERIES PT HAS NOT HAD COVID OR FLU VACCINES PCP: LESTER KIMBROUGH AT [facility] Allergies and Home Medications Allergies Coded Allergies: Bacitracin Zinc (Unverified Allergy, Intermediate, HIVES, RESP PROBLMEMS, 07/09/17) Penicillins (Unverified Allergy, Intermediate, RASH,, 07/09/17) bacitracin (Unverified Allergy, Intermediate, HIVES, RESP PROBLMEMS, 07/09/17) gramicidin D (Unverified Allergy, Intermediate, HIVES, RESP PROBLMEMS, 07/09/17) methylprednisolone sod succ (Unverified Allergy, Intermediate, RESP DIFFICULTY, 07/09/17) neomycin sulfate (Unverified Allergy, Intermediate, HIVES, RESP PROBLMEMS, 07/09/17) polymyxin B (Unverified Allergy, Intermediate, HIVES, RESP PROBLMEMS, 07/09/17) polymyxin B sulfate (Unverified Allergy, Intermediate, HIVES, RESP PROBLMEMS, 07/09/17) sulfamethoxazole (Verified Allergy, Unknown, Hives, 04/25/20) trimethoprim (Verified Allergy, Unknown, Hives, 04/25/20) Metronidazole HCl (Unverified Adverse Reaction, Mild, N/V, 07/09/17) metronidazole (Unverified Adverse Reaction, Mild, N/V, 07/09/17) Patient Home Medication List Home Medication List Reviewed: Yes Azithromycin (Azithromycin) 250 Mg Tablet, 250 MG PO UD Prescribed by: TIEN SIEGEL on 06/23/21 1115 Cetirizine HCl (Zyrtec) 10 Mg Tablet, 10 MG PO DAILY, (Reported) Entered as Reported by: REYNALDO MACKEY on 05/28/21 1355 Hydralazine HCl (Hydralazine HCl) 10 Mg Tablet, 10 MG PO DAILY PRN PRN for BLOOD PRESSURE, (Reported) Entered as Reported by: REYNALDO MACKEY on 05/28/21 1355 Hydrocodone Bit/Acetaminophen (HYDROcodone/APAP 5 MG/325 MG TAB) 1 Tab Tab, 1 TAB PO Q8H PRN for PAIN-MODERATE (5-7) Prescribed by: NIMESH CARRASCO on 05/30/21 1238 Levothyroxine Sodium (Levothyroxine Sodium) 300 Mcg Tablet, 300 MCG PO DAILY, (Reported) Entered as Reported by: REYNALDO MACKEY on 05/28/21 1355 Levothyroxine Sodium (Levothyroxine Sodium) 25 Mcg Tablet, 25 MCG PO DAILY, (Reported) Entered as Reported by: REYNADLO MACKEY on 05/28/21 1355 Metoclopramide HCl (Reglan) 10 Mg Tablet, 10 MG PO QIDACHS Prescribed by: ALFRED GARCIA on 12/08/21 0050 Montelukast Sodium (Singulair) 10 Mg Tablet, 10 MG PO DAILY, (Reported) Entered as Reported by: REYNALDO MACKEY on 05/28/21 1355 Naratriptan HCl (Amerge) 2.5 Mg Tablet, 2.5 MG PO NEEDED PRN for HEADACHE, (Reported) Entered as Reported by: REYNALDO MACKEY on 05/28/21 1355 Ondansetron (Ondansetron Odt) 4 Mg Tab.rapdis, 4 MG SL Q4H PRN for NAUSEA/VOM ITING Prescribed by: TIEN SIEGEL on 06/23/21 1110 Ondansetron (Ondansetron Odt) 8 Mg Tab.rapdis, 8 MG PO Q4H PRN for NAUSEA/VOMITING Prescribed by: ALFRED GARCIA on 12/08/21 0050 Promethazine HCl (Promethazine Tablet) 25 Mg Tablet, 25 MG PO Q8H PRN for NAUSEA/VOMITING-2ND LINE Prescribed by: TIEN SIEGEL on 06/23/21 1110 Propranolol HCl (Propranolol HCl) 20 Mg Tablet, 20 MG PO TID, (Reported) Entered as Reported by: REYNALDO MACKEY on 05/28/21 1355 Sucralfate (Carafate) 1 Gram Tablet, 1 GM PO QID Prescribed by: ALFRED GARCIA on 12/08/21 0050 [Allergy Shots] , SQ WEEK, (Reported) Entered as Reported by: REYNALDO MACKEY on 05/28/21 1355 Review of Systems Review of Systems Constitutional: no symptoms reported Respiratory: No Symptoms Reported Cardiovascular: See HPI Gastrointestinal: See HPI Genitourinary: No Symptoms Reported Musculoskeletal: see HPI Skin: no symptoms reported Psychiatric/Neurological: No Symptoms Reported Endocrine: No Symptoms Reported Hematologic/Lymphatic: No Symptoms Reported Past Oomvhsp-[id number]-[id number] Hx Patient Social History Tobacco Use?: Yes Tobacco type used: Cigarettes Smoking Status: Current Everyday Smoker Use of E-Cig and/or Vaping dev: No Substance use?: Yes Substance type: Marijuana Substance frequency: Once in a while Alcohol Use?: Yes Immunizations Up To Date Tetanus Booster (TDap): More than 5yrs Influenza Vaccine Up-to-Date: No; Not Current Seasonal Allergies Seasonal Allergies: Yes Past Medical History Surgeries: Yes (Hemorrhoidectomy) Adenoidectomy, Gallbladder, 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, Oophorectomy, Orthopedic, Rectal, Thyroidectomy, Tonsillectomy, 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 Respiratory: Yes Asthma Currently Using CPAP: No Currently Using BIPAP: No Cardiac: Yes (HX PERICARDIAL EFFUSION, HEART CATH-CLEAR) Hypertension, Rheumatic Fever Neurological: Yes (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, pituitary adenoma;CHRONIC DAILY GASTELUM) Headaches /Migraines, Neuropathy 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 Disorders: Yes Female 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 Disorders: Menstrual Problems, 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, 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 HIV/AIDS: No Genitourinary: Yes Kidney Stones Gastrointestinal: Yes Gastroesophageal Reflux, Lovell's Esophagus, Chronic Constipation, Hemorrhoids, Chronic Diarrhea, Hiatal Hernia, Ulcer, Irritable Bowel Musculoskeletal: Yes (CHRONIC GENERALIZED PAIN, NECK PAIN AND BACK PAIN) Rheumatoid Arthritis, Chronic Back Pain Endocrine: Yes (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; PITUITARY ADENOMA; OBESITY) Hypothyroidsim HEENT: Yes (GLASSES/CONTACTS; T&A) Loss of Vision: Denies Hearing Impairment: Denies Cancer: No Psychosocial: Yes (INTENTIONAL OD ON PROPRANOLOL 11/2020) Sleep Difficulties, Anxiety, Suicide Attempts, Bipolar, Depression Integumentary: No Blood Disorders: No Adverse Reaction/Blood Tranf: No (N/A) Family Medical History Asthma son CANC 19 MOTHER (CANCER OF GALLBLADDER AND UTERUS) Diabetes mellitus G8 SISTER FH: cancer Hypertension 19 FATHER Psychosocial problem G8 SISTER (ANXIETY) Thyroid disease 19 MOTHER (HYPERTHYROID) Heart Disease, Hypertension SOCIAL HISTORY: -SMOKES 1 /2 PPD -ETOH--USED TO DRINK BUT DENIES ANY RECENT ALCOHOL USE -DRUGS--THC DAILY PAST SURGICAL HISTORY: -TONSILLECTOMY/ADENOIDECTOMY -CHOLECYSTECTOMY -HEMORRHOIDECTOMY -HYSTERECTOMY/LEFT SALPINGO-OOPHORECTOMY -BILATERAL KNEE SCOPES -BILATERAL SHOULDER SCOPES -ROTATOR CUFF REPAIR -CARDIAC CATH 05/[address] SIMPSON--ESSENTIALLY NORMAL. NO INTERVENTION -EGD 10/09/[address] CARRASCO Physical Exam Vital Signs Vital Signs - First Documented 12/07/21 22:10 Temp 37.0 Pulse 110 Resp 20 B/P (MAP) 107/83 (91) Pulse Ox 96 Capillary Refill : Height/Weight/BMI Height: 5'8.00" Weight: 260lbs. 4.0oz. 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, no motor/sensory deficits, alert, oriented x 3 Skin: normal color, warm/dry Progress/Results/Core Measures Results/Orders Lab Results Laboratory Tests Test 12/07/21 22:23 12/07/21 23:42 Range/Units White Blood Count 7.2 4.3-11.0 10^3/uL Red Blood Count 5.14 H 3.80-5.11 10^6/uL Hemoglobin 16.5 H 11.5-16.0 g/dL Hematocrit 49 35-52 % Mean Corpuscular Volume 95 80-99 fL Mean Corpuscular Hemoglobin 32 25-34 pg Mean Corpuscular Hemoglobin Concent 34 32-36 g/dL Red Cell Distribution Width 13.1 10.0-14.5 % Platelet Count 239 130-400 10^3/uL Mean Platelet Volume 10.6 9.0-12.2 fL Immature Granulocyte % (Auto) 0 % Neutrophils (%) (Auto) 83 H 42-75 % Lymphocytes (%) (Auto) 9 L 12-44 % Monocytes (%) (Auto) 6 0-12 % Eosinophils (%) (Auto) 1 0-10 % Basophils (%) (Auto) 0 0-10 % Neutrophils # (Auto) 6.0 1.8-7.8 10^3/uL Lymphocytes # (Auto) 0.7 L 1.0-4.0 10^3/uL Monocytes # (Auto) 0.4 0.0-1.0 10^3/uL Eosinophils # (Auto) 0.0 0.0-0.3 10^3/uL Basophils # (Auto) 0.0 0.0-0.1 10^3/uL Immature Granulocyte # (Auto) 0.0 0.0-0.1 10^3/uL Sodium Level 141 135-145 MMOL/L Potassium Level 3.5 L 3.6-5.0 MMOL/L Chloride Level 107 98-107 MMOL/L Carbon Dioxide Level 18 L 21-32 MMOL/L Anion Gap 16 H 5-14 MMOL/L Blood Urea Nitrogen 12 7-18 MG/DL Creatinine 0.91 0.60-1.30 MG/DL Estimat Glomerular Filtration Rate 84 BUN/Creatinine Ratio 13 Glucose Level 118 H 70-105 MG/DL Calcium Level 9.4 8.5-10.1 MG/DL Corrected Calcium 9.1 8.5-10.1 MG/DL Total Bilirubin 0.7 0.1-1.0 MG/DL Aspartate Amino Transf (AST/SGOT) 26 5-34 U/L Alanine Aminotransferase (ALT/SGPT) 46 0-55 U/L Alkaline Phosphatase 95 40-136 U/L Total Protein 7.1 6.4-8.2 GM/DL Albumin 4.4 3.2-4.5 GM/DL Amylase Level 30 25-125 U/L Lipase 16 8-78 U/L Urine Color YELLOW Urine Clarity SL CLOUDY Urine pH 7.0 5-9 Urine Specific [place] <=1.005 1.016-1.022 Urine Protein NEGATIVE NEGATIVE Urine Glucose (UA) NEGATIVE NEGATIVE Urine Ketones NEGATIVE NEGATIVE Urine Nitrite NEGATIVE NEGATIVE Urine Bilirubin NEGATIVE NEGATIVE Urine Urobilinogen 0.2 < = 1.0 MG/DL Urine Leukocyte Esterase TRACE H NEGATIVE Urine RBC (Auto) NEGATIVE NEGATIVE Urine RBC NONE /HPF Urine WBC 5-10 H /HPF Urine Squamous Epithelial Cells 2-5 /HPF Urine Crystals NONE /LPF Urine Bacteria FEW H /HPF Urine Casts NONE /LPF Urine Mucus NEGATIVE /LPF Urine Culture Indicated NO Urine Opiates Screen NEGATIVE NEGATIVE Urine Oxycodone Screen NEGATIVE NEGATIVE Urine Methadone Screen NEGATIVE NEGATIVE Urine Propoxyphene Screen NEGATIVE NEGATIVE Urine Barbiturates Screen NEGATIVE NEGATIVE Ur Tricyclic Antidepressants Screen NEGATIVE NEGATIVE Urine Phencyclidine Screen NEGATIVE NEGATIVE Urine Amphetamines Screen NEGATIVE NEGATIVE Urine Methamphetamines Screen NEGATIVE NEGATIVE Urine Benzodiazepines Screen NEGATIVE NEGATIVE Urine Cocaine Screen NEGATIVE NEGATIVE Urine Cannabinoids Screen POSITIVE H NEGATIVE My Orders Orders - ALFRED GARCIA DO Ed Iv/Invasive Line Start (12/07/21 22:23) Monitor-Rhythm Ecg Trace Only (12/07/21 22:23) Amylase (12/07/21 22:23) Cbc With Automated Diff (12/07/21 22:23) Comprehensive Metabolic Panel (12/07/21 22:23) Drug Screen Stat (Urine) (12/07/21 22:23) Lipase (12/07/21 22:23) Ua Culture If Indicated (12/07/21 22:23) Ondansetron Injection (Zofran Injectio (12/07/21 22:30) Lactated Ringers (Lr 1000 Ml Iv Solution (12/07/21 22:23) Ed Iv/Invasive Line Start (12/07/21 22:23) Pantoprazole Injection (Protonix Injecti (12/07/21 22:30) Ct Chest/Abdomen/Pelvis W (12/07/21 22:56) Iohexol Injection (Omnipaque 350 Mg/Ml 1 (12/07/21 23:30) Sodium Chloride Flush (Catheter Flush Sy (12/07/21 23:30) Ns (Ivpb) (Sodium Chloride 0.9% Ivpb Bag (12/07/21 23:30) Ketorolac Injection (Toradol Injection) (12/08/21 00:30) Medications Given in ED Current Medications Medications Dose Ordered Sig/Narinder Route Start Time Stop Time Status Last Admin Dose Admin Iohexol 150 ml ONCE ONCE IV 12/07/21 23:30 12/07/21 23:31 DC 12/07/21 23:31 100 ML Ketorolac Tromethamine 30 mg ONCE ONCE IVP 12/08/21 00:30 12/08/21 00:31 DC 12/08/21 00:36 30 MG Ondansetron HCl 4 mg ONCE ONCE IVP 12/07/21 22:30 12/07/21 22:31 DC 12/07/21 22:35 4 MG Pantoprazole 40 mg ONCE ONCE IV 12/07/21 22:30 12/07/21 22:31 DC 12/07/21 22:35 40 MG Sodium Chloride 10 ml NEEDED PRN IV 12/07/21 23:30 12/08/21 00:59 DC 12/07/21 23:31 10 ML Sodium Chloride 100 ml ONCE ONCE IV 12/07/21 23:30 12/07/21 23:31 DC 12/07/21 23:31 80 ML Vital Signs/I&O 12/07/21 12/08/21 22:10 00:58 Temp 37.0 Pulse 110 81 Resp 20 18 B/P (MAP) 107/83 (91) 127/77 Pulse Ox 96 98 12/08/21 00:00 Intake Total 1000 ml Balance 1000 ml Blood Pressure Mean: 91 Progress Progress Note : Progress Note NO DETERIORATION IN PT'S CONDITION DURING ER STAY Diagnostic Imaging Comments CT CHEST/ABDOMEN/PELVIS--PER RADIOLOGIST REPORT AT 0043 SMALL PERICARDIAL EFFUSION NO ACUTE PROCESS Reviewed: Reviewed by Me Departure Impression Primary Impression: Epigastric abdominal pain Additional Impressions: History of hiatal hernia Lovell's esophagus with esophagitis CHRONIC MARIJUANA USE Disposition: HOME, SELF-CARE Condition: Stable Departure-Patient Inst. Decision time for Depature: 00:45 Referrals: RITA KIMBROUGH (PCP) Primary Care Physician NIMESH CARRASCO DO Patient Instructions: Abdominal Pain, Adult ED, Acid Reflux and GERD in Adults (DC), Hiatal Hernia (DC) Add. Discharge Instructions: LIQUID DIET--UNTIL YOU ARE RECHECKED AND CLEARED BY DRPhilip CONTINUE PANTOPRAZOLE 40 MG DAILY FOLLOW UP WITH DR. CARRASCO NEXT WEEK FOR FURTHER CARE All discharge instructions reviewed with patient and/or family. Voiced understanding. Scripts Metoclopramide HCl (Reglan) 10 Mg Tablet 10 MG PO QIDACHS, #40 TAB Prov: ALFRED GARCIA DO 12/08/21 Sucralfate (Carafate) 1 Gram Tablet 1 GM PO QID, #60 TAB Prov: ALFRED GARCIA DO 12/08/21 Ondansetron (Ondansetron Odt) 8 Mg Tab.rapdis 8 MG PO Q4H PRN for NAUSEA/VOMITING, #12 TAB Prov: ALFRED GARCIA DO 12/08/21 ALFRED GARCIA DO Dec 08, 2021 00:08
[2021-12-08] MEDS ORDERED: KETOROLAC 30 MG/ML VIAL IVP ONE (00:30)
[2021-12-08] MEDS ORDERED: METO-310 PO (00:50)
[2021-12-08] MEDS ORDERED: ONDA8TAB13 PO (00:50)
[2021-12-08] MEDS ORDERED: SUCR1TAB36 PO (00:50)
[2021-12-08 00:58] VITALS: BP 127/77
--- NOTE | 2021-12-08 07:15 | Diagnostic Imaging Report ---
EXAMINATION: CT chest, abdomen and pelvis with intravenous contrast. TECHNIQUE: Multiple contiguous axial images were obtained through the chest, abdomen and pelvis after the uneventful administration of intravenous contrast. All CT scans use one or more of the following dose optimizing techniques: automated exposure control, MA and/or KvP adjustment based on patient size and exam type or iterative reconstruction. HISTORY: Right upper quadrant pain. COMPARISON: 07/30/2018 FINDINGS: There is no edema or pneumonia. No pleural effusion. No pneumothorax. No suspicious nodules. There is no axillary or supraclavicular lymphadenopathy. There is no mediastinal lymphadenopathy. Heart size is normal. There are mild coronary artery calcifications. There is a small pericardial effusion. Aorta is normal in caliber. The liver is normal without focal lesion. There is no biliary ductal dilation. Gallbladder is surgically absent. Pancreas is normal. Spleen is normal. Right adrenal nodule measures 1.8 cm, previously 1.3 cm and consistent with an adenoma on the prior study. The kidneys are normal. There is no hydronephrosis. Urinary bladder is normal. Bowel is normal in caliber without obstruction or inflammation. No free fluid or air. No abdominal or pelvic lymphadenopathy. Aorta is normal in caliber without aneurysm. There are no suspicious osseus lesions. IMPRESSION: 1. Small pericardial effusion. 2. No acute abnormality in the abdomen or pelvis. There is no significant disagreement with the preliminary report. Dictated by: Dictated on workstation # [id number]
== END 2021-12-08 00:59 | disposition home or self-care (01) ==
LOC: EDUNIT# 22:00 → ER 22:03
DX: K20.90 Esophagitis, unspecified without bleeding (principal); K22.70 Barrett's esophagus without dysplasia; F12.20 Cannabis dependence, uncomplicated; F17.210 Nicotine dependence, cigarettes, uncomplicated
CPT/HCPCS: 36415; 71260; 74177; 80053; 80306; 81000; 82150; 83690; 85025; 93041

== ENCOUNTER → 2021-12-25 | Outpatient (CLI) | payer MEDICAID ==
[~2021-12-25] MED LIST changes: +METO-310 PO
--- NOTE | 2021-12-25 13:59 | Diagnostic Imaging Report ---
Exam: Nuclear medicine gastric emptying study. Date: December 26, 2019 Indication: 36-year-old female, stomach pain. Comparison: None. Findings: 1.07 mCi of technetium labeled sulfur colloid was administered. Subsequent anterior and posterior scintigraphic images of the stomach were obtained over a 4 hour timeframe for calculation of gastric emptying. At 1 hour, there is approximately 54% gastric emptying. At 2 hours, there is approximately 80% gastric emptying. At 3 hours, there is approximately 96% gastric emptying. At 4 hours, there is approximately 99% gastric emptying. Impression: 1. No evidence of delayed gastric emptying. Dictated by: Dictated on workstation # [id number]
== END ==
LOC: CARD 08:48
PROVIDERS: ATTEND Nurse Practitioner
DX: K31.84 Gastroparesis (principal)
CPT/HCPCS: 78264; A9541

== ENCOUNTER 2022-04-02 16:33 | Emergency (ER) | payer MEDICAID ==
[~2022-04-02] VITALS: Ht 172.7 cm; Wt 107.0 kg
--- NOTE | 2022-04-02 16:48 | ED Syncope ---
General Stated Complaint: STOMACH PAIN, VOMITING Source of Information: Patient History of Present Illness Date Seen by Provider: Apr 02, 2022 Time Seen by Provider: 16:47 Initial Comments Patient is a 36-year-old female with a history of hysterectomy, cholecystectomy presents ED with lower abdominal pain located around her umbilicus with radiation to right lower back. Symptoms started around 3:00 this morning. Pain is described as a burning pain with increase intensity throughout the day. She did vomited once today and has felt nauseous. Denies any diarrhea. No fever, cough, chest pain, shortness of breath, headache, dizziness, visual changes, sore throat. Denies history of similar pain in the past. No vaginal bleeding, vaginal discharge or urinary symptoms. No history of kidney stones. She did take Tylenol without much improvement. Allergies and Home Medications Allergies Coded Allergies: Bacitracin Zinc (Unverified Allergy, Intermediate, HIVES, RESP PROBLMEMS, 07/09/17) Penicillins (Unverified Allergy, Intermediate, RASH,, 07/09/17) bacitracin (Unverified Allergy, Intermediate, HIVES, RESP PROBLMEMS, 07/09/17) gramicidin D (Unverified Allergy, Intermediate, HIVES, RESP PROBLMEMS, 07/09/17) methylprednisolone sod succ (Unverified Allergy, Intermediate, RESP DIFFICULTY, 07/09/17) neomycin sulfate (Unverified Allergy, Intermediate, HIVES, RESP PROBLMEMS, 07/09/17) polymyxin B (Unverified Allergy, Intermediate, HIVES, RESP PROBLMEMS, 07/09/17) polymyxin B sulfate (Unverified Allergy, Intermediate, HIVES, RESP PROBLMEMS, 07/09/17) sulfamethoxazole (Verified Allergy, Unknown, Hives, 04/25/20) trimethoprim (Verified Allergy, Unknown, Hives, 04/25/20) Metronidazole HCl (Unverified Adverse Reaction, Mild, N/V, 07/09/17) metronidazole (Unverified Adverse Reaction, Mild, N/V, 07/09/17) Patient Home Medication List Home Medication List Reviewed: Yes Azithromycin (Azithromycin) 250 Mg Tablet, 250 MG PO UD Prescribed by: TIEN SIEGEL on 06/23/21 1115 Cetirizine HCl (Zyrtec) 10 Mg Tablet, 10 MG PO DAILY, (Reported) Entered as Reported by: REYNALDO MACKEY on 05/28/21 1355 Hydralazine HCl (Hydralazine HCl) 10 Mg Tablet, 10 MG PO DAILY PRN PRN for BLOOD PRESSURE, (Reported) Entered as Reported by: REYNALDO MACKEY on 05/28/21 1355 Hydrocodone Bit/Acetaminophen (HYDROcodone/APAP 5 MG/325 MG TAB) 1 Tab Tab, 1 TAB PO Q8H PRN for PAIN-MODERATE (5-7) Prescribed by: NIMESH CARRASCO on 05/30/21 1238 Hydrocodone/Acetaminophen (Hydrocodone-Acetamin 5-325 mg) 5 Mg-325 Mg Tablet, 1 TAB PO Q4H PRN for PAIN-MODERATE (5-7) Prescribed by: LUÍS MCKEON on 04/02/22 1855 Levothyroxine Sodium (Levothyroxine Sodium) 300 Mcg Tablet, 300 MCG PO DAILY, (Reported) Entered as Reported by: REYNALDO MACKEY on 05/28/21 135 Levothyroxine Sodium (Levothyroxine Sodium) 25 Mcg Tablet, 25 MCG PO DAILY, (Reported) Entered as Reported by: REYNALDO MACKEY on 05/28/21 135 Metoclopramide HCl (Reglan) 10 Mg Tablet, 10 MG PO QIDACHS Prescribed by: ALFRED GARCIA on 12/08/21 005 Montelukast Sodium (Singulair) 10 Mg Tablet, 10 MG PO DAILY, (Reported) Entered as Reported by: REYNALDO MACKEY on 05/28/21 135 Naratriptan HCl (Amerge) 2.5 Mg Tablet, 2.5 MG PO NEEDED PRN for HEADACHE, (Reported) Entered as Reported by: REYNALDO MACKEY on 05/28/21 135 Ondansetron (Ondansetron Odt) 4 Mg Tab.rapdis, 4 MG SL Q4H PRN for NAUSEA/VOMITING Prescribed by: TIEN SIEGEL on 06/23/21 1110 Ondansetron (Ondansetron Odt) 8 Mg Tab.rapdis, 8 MG PO Q4H PRN for NAUSEA/VOMITING Prescribed by: ALFRED GARCIA on 12/08/21 0050 Ondansetron (Ondansetron Odt) 4 Mg Tab.rapdis, 4 MG PO Q4H Prescribed by: LUÍS MCKEON on 04/02/22 1855 Promethazine HCl (Promethazine Tablet) 25 Mg Tablet, 25 MG PO Q8H PRN for NAUSEA/VOMITING-2ND LINE Prescribed by: TIEN SIEGEL on 06/23/21 1110 Propranolol HCl (Propranolol HCl) 20 Mg Tablet, 20 MG PO TID, (Reported) Entered as Reported by: REYNALDO MACKEY on 05/28/21 1355 Sucralfate (Carafate) 1 Gram Tablet, 1 GM PO QID Prescribed by: ALFRED GARCIA on 12/08/21 0050 [Allergy Shots] , SQ WEEK, (Reported) Entered as Reported by: REYNALDO MACKEY on 05/28/21 1355 Review of Systems Constitutional: No chills, No diaphoresis, No malaise, No weakness EENTM: No blurred vision, No double vision Respiratory: No cough Cardiovascular: No chest pain Gastrointestinal: abdominal pain; No diarrhea; nausea Genitourinary: No decreased output, No discharge, No dysuria, No frequency Musculoskeletal: back pain; No joint pain, No muscle pain Skin: No change in color All Other Systems Reviewed Negative Unless Noted: Yes Past Zvdhvfn-Isjblt-Nmrydq Hx Immunizations Up To Date Tetanus Booster (TDap): More than 5yrs Seasonal Allergies Seasonal Allergies: Yes Past Medical History Surgeries: Yes (Hemorrhoidectomy) Adenoidectomy, Gallbladder, 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, Oophorectomy, Orthopedic, Rectal, Thyroidectomy, Tonsillectomy, 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 Respiratory: Yes Asthma Currently Using CPAP: No Currently Using BIPAP: No Cardiac: Yes (HX PERICARDIAL EFFUSION, HEART CATH-CLEAR) Hypertension, Rheumatic Fever Neurological: Yes (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, pituitary adenoma;CHRONIC DAILY GASTELUM) Headaches /Migraines, Neuropathy 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 Disorders: Yes Female 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 Disorders: Menstrual Problems, 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, 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 History: 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 HIV/AIDS: No Genitourinary: Yes Kidney Stones Gastrointestinal: Yes Gastroesophageal Reflux, Sanchez's Esophagus, Chronic Constipation, Hemorrhoids, Chronic Diarrhea, Hiatal Hernia, Ulcer, Irritable Bowel Musculoskeletal: Yes (CHRONIC GENERALIZED PAIN, NECK PAIN AND BACK PAIN) Rheumatoid Arthritis, Chronic Back Pain Endocrine: Yes (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; PITUITARY ADENOMA; OBESITY) Hypothyroidsim HEENT: Yes (GLASSES/CONTACTS; T&A) Loss of Vision: Denies Hearing Impairment: Denies Cancer: No Psychosocial: Yes (INTENTIONAL OD ON PROPRANOLOL 11/2020) Sleep Difficulties, Anxiety, Suicide Attempts, Bipolar, Depression Integumentary: No Blood Disorders: No Adverse Reaction/Blood Tranf: No (N/A) Family Medical History Asthma son CANC 19 MOTHER (CANCER OF GALLBLADDER AND UTERUS) Diabetes mellitus G8 SISTER FH: cancer Hypertension 19 FATHER Psychosocial problem G8 SISTER (ANXIETY) Thyroid disease 19 MOTHER (HYPERTHYROID) Heart Disease, Hypertension SOCIAL HISTORY: -SMOKES 1 1/2 PPD -ETOH--USED TO DRINK BUT DENIES ANY RECENT ALCOHOL USE -DRUGS--THC DAILY PAST SURGICAL HISTORY: -TONSILLECTOMY/ADENOIDECTOMY -CHOLECYSTECTOMY -HEMORRHOIDECTOMY -HYSTERECTOMY/LEFT SALPINGO-OOPHORECTOMY -BILATERAL KNEE SCOPES -BILATERAL SHOULDER SCOPES -ROTATOR CUFF REPAIR -CARDIAC CATH 05/[address] SIMPSON--ESSENTIALLY NORMAL. NO INTERVENTION -EGD 10/09/[address] CARRASCO Physical Exam Vital Signs Vital Signs - First Documented 04/02/22 17:01 Temp 35.9 Pulse 76 Resp 20 B/P (MAP) 148/93 (111) Pulse Ox 96 O2 Delivery Room Air Capillary Refill : Height, Weight, BMI Height: 5'8.00" Weight: 260lbs. 4.0oz. [id number]; 36.00 BMI Method:Stated General Appearance: No Apparent Distress, WD/WN HEENT: PERRL/EOMI, TMs Normal, Normal ENT Inspection, Pharynx Normal Neck: Full Range of Motion, Normal Inspection, Non Tender Cardiovascular: Regular Rate, Rhythm, No Edema, No Gallop, No JVD, No Murmur Respiratory: Chest Non Tender, Lungs Clear, Normal Breath Sounds, No Accessory Muscle Use, No Respiratory Distress Gastrointestinal: Normal Bowel Sounds, No Organomegaly, No Pulsatile Mass, Soft, Tenderness (Umbilicus, right lower quadrant tenderness. Normal bowel sounds throughout. Mild guarding) Back: Normal Inspection Neurologic/Psychiatric: Alert, Oriented x3, No Motor/Sensory Deficits, Normal Mood/Affect, email marketing assistant II-XII Norm as Tested Skin: Normal Color Progress/Results/Core Measures Results/Orders Lab Results Laboratory Tests Test 04/02/22 17:03 04/02/22 17:17 Range/Units Urine Color YELLOW Urine Clarity CLEAR Urine pH 7.0 5-9 Urine Specific [place] 1.015 L 1.016-1.022 Urine Protein NEGATIVE NEGATIVE Urine Glucose (UA) NEGATIVE NEGATIVE Urine Ketones NEGATIVE NEGATIVE Urine Nitrite NEGATIVE NEGATIVE Urine Bilirubin NEGATIVE NEGATIVE Urine Urobilinogen 0.2 < = 1.0 MG/DL Urine Leukocyte Esterase 1+ H NEGATIVE Urine RBC (Auto) NEGATIVE NEGATIVE Urine RBC NONE /HPF Urine WBC 2-5 /HPF Urine Squamous Epithelial Cells 5-10 /HPF Urine Crystals NONE /LPF Urine Bacteria MODERATE H /HPF Urine Casts NONE /LPF Urine Mucus SMALL H /LPF Urine Culture Indicated YES White Blood Count 7.9 4.3-11.0 10^3/uL Red Blood Count 4.58 3.80-5.11 10^6/uL Hemoglobin 14.8 11.5-16.0 g/dL Hematocrit 44 35-52 % Mean Corpuscular Volume 96 80-99 fL Mean Corpuscular Hemoglobin 32 25-34 pg Mean Corpuscular Hemoglobin Concent 34 32-36 g/dL Red Cell Distribution Width 14.2 10.0-14.5 % Platelet Count 232 130-400 10^3/uL Mean Platelet Volume 10.1 9.0-12.2 fL Immature Granulocyte % (Auto) 0 % Neutrophils (%) (Auto) 54 42-75 % Lymphocytes (%) (Auto) 36 12-44 % Monocytes (%) (Auto) 7 0-12 % Eosinophils (%) (Auto) 1 0-10 % Basophils (%) (Auto) 1 0-10 % Neutrophils # (Auto) 4.3 1.8-7.8 10^3/uL Lymphocytes # (Auto) 2.9 1.0-4.0 10^3/uL Monocytes # (Auto) 0.6 0.0-1.0 10^3/uL Eosinophils # (Auto) 0.1 0.0-0.3 10^3/uL Basophils # (Auto) 0.1 0.0-0.1 10^3/uL Immature Granulocyte # (Auto) 0.0 0.0-0.1 10^3/uL Sodium Level 140 135-145 MMOL/L Potassium Level 3.4 L 3.6-5.0 MMOL/L Chloride Level 103 98-107 MMOL/L Carbon Dioxide Level 25 21-32 MMOL/L Anion Gap 12 5-14 MMOL/L Blood Urea Nitrogen 10 7-18 MG/DL Creatinine 1.04 0.60-1.30 MG/DL Estimat Glomerular Filtration Rate 72 BUN/Creatinine Ratio 10 Glucose Level 71 70-105 MG/DL Calcium Level 9.7 8.5-10.1 MG/DL Corrected Calcium 8.5-10.1 MG/DL Total Bilirubin 0.5 0.1-1.0 MG/DL Aspartate Amino Transf (AST/SGOT) 22 5-34 U/L Alanine Aminotransferase (ALT/SGPT) 20 0-55 U/L Alkaline Phosphatase 79 40-136 U/L Total Protein 8.0 6.4-8.2 GM/DL Albumin 4.7 H 3.2-4.5 GM/DL Lipase 36 8-78 U/L Serum Test, Qualitative NEGATIVE NEGATIVE My Orders Orders - MARYLIN BLANKENSHIP Cbc With Automated Diff (04/02/22 17:24) Comprehensive Metabolic Panel (04/02/22 17:24) Lipase (04/02/22 17:24) Ns Iv 1000 Ml (Sodium Chloride 0.9%) (04/02/22 17:24) Urinalysis (04/02/22 17:24) Hcg,Qualitative Serum (04/02/22 17:24) Ct Abd/Pelv W (Appendicitis) (04/02/22 17:24) Fentanyl Inj (Sublimaze Injection) (04/02/22 17:24) Iohexol Injection (Omnipaque 350 Mg/Ml 1 (04/02/22 17:45) Received Contrast (Hold Metformin- Contr (04/02/22 17:45) Ns (Ivpb) (Sodium Chloride 0.9% Ivpb Bag (04/02/22 17:45) Urine Culture (04/02/22 17:03) Fentanyl Inj (Sublimaze Injection) (04/02/22 18:53) Medications Given in ED Current Medications Medications Dose Ordered Sig/Narinder Route Start Time Stop Time Status Last Admin Dose Admin Iohexol 100 ml ONCE ONCE IV 04/02/22 17:45 04/02/22 17:46 DC 04/02/22 17:42 100 ML Sodium Chloride 100 ml ONCE ONCE IV 04/02/22 17:45 04/02/22 17:46 DC 04/02/22 17:42 80 ML Vital Signs/I&O 04/02/22 04/02/22 17:01 19:29 Temp 35.9 Pulse 76 83 Resp 20 16 B/P (MAP) 148/93 (111) 155/93 Pulse Ox 96 96 O2 Delivery Room Air Room Air Departure Communication (PCP) Patient has a umbilicus pain, right lower quadrant pain. Lab work showed normal white blood count, liver function. Potassium 3.4. CT abdomen pelvis with enteritis. She states she seen a GI specialist at [place] and diagnosed with delayed gastric emptying, gastritis, esophagitis. Currently on Protonix according to patient. Episode of vomiting today. Was given a liter fluid. Pain controlled. History of hysterectomy. Patient pain improved. This may be secondary to the enteritis. No surgical abdomen at this time. Patient will be discharged with Zofran and Keflex for potential UTI. If any worsening symptoms return back to ED for further evaluation. Patient denies chest pain, cough or shortness of breath. Discussed diet changes Impression Primary Impression: Abdominal pain Disposition: 01 HOME, SELF-CARE Condition: Stable Departure-Patient Inst. Decision time for Depature: 18:54 Referrals: RITA KIMBROUGH (PCP/Family) Primary Care Physician Patient Instructions: Abdominal Pain, Adult ED Scripts Cephalexin (Cephalexin) 500 Mg Tablet 500 MG PO BID for 7 Days, #14 TAB Prov: MARYLIN BLANKENSHIP 04/02/22 Ondansetron (Ondansetron Odt) 4 Mg Tab.rapdis 4 MG PO Q4H, #8 TAB Prov: MARYLIN BLANKENSHIP 04/02/22 Hydrocodone/Acetaminophen (Hydrocodone-Acetamin 5-325 mg) 5 Mg-325 Mg Tablet 1 TAB PO Q4H PRN for PAIN-MODERATE (5-7), #8 TAB Prov: MARYLIN BLANKENSHIP 04/02/22 MARYLIN BLANKENSHIP Apr 02, 2022 16:48
[2022-04-02] MEDS ORDERED: fentaNYL INJ 100 MCG/2 ML AMP IVP STA ×2 (17:24→18:53)
[2022-04-02] MEDS ORDERED: NS IV 1000 ML 1,000 ML IV STA (17:24)
[2022-04-02 17:31] LABS: BASOPHILS # (AUTO) 0.1 10^3/uL (0.0-0.1); BASOPHILS % (AUTO) 1 % (0-10); EOSINOPHILS # (AUTO) 0.1 10^3/uL (0.0-0.3); EOSINOPHILS % (AUTO) 1 % (0-10); HEMATOCRIT 44 % (35-52); HEMOGLOBIN 14.8 g/dL (11.5-16.0); LYMPHOCYTES # (AUTO) 2.9 10^3/uL (1.0-4.0); LYMPHOCYTES % (AUTO) 36 % (12-44); MEAN CORPUSCULAR HEMOGLOBIN 32 pg (25-34); MEAN CORPUSCULAR HGB CONC 34 g/dL (32-36); MEAN CORPUSCULAR VOLUME 96 fL (80-99); MEAN PLATELET VOLUME 10.1 fL (9.0-12.2); MONOCYTES # (AUTO) 0.6 10^3/uL (0.0-1.0); MONOCYTES % (AUTO) 7 % (0-12); NEUTROPHILS # (AUTO) 4.3 10^3/uL (1.8-7.8); NEUTROPHILS % (AUTO) 54 % (42-75); PLATELET COUNT 232 10^3/uL (130-400); WHITE BLOOD COUNT 7.9 10^3/uL (4.3-11.0)
[2022-04-02 17:36] LABS: BILIRUBIN,URINE NEGATIVE (NEGATIVE); CLARITY,URINE CLEAR; COLOR,URINE YELLOW; GLUCOSE, URINE (UA) NEGATIVE (NEGATIVE); KETONES,URINE NEGATIVE (NEGATIVE); LEUKOCYTE ESTERASE ,URINE 1+ (NEGATIVE); NITRITE,URINE NEGATIVE (NEGATIVE); PROTEIN,URINE NEGATIVE (NEGATIVE)
[2022-04-02 17:42] LABS: ALBUMIN 4.7 GM/DL (3.2-4.5); CHLORIDE 103 MMOL/L (98-107)
[2022-04-02 17:43] LABS: POTASSIUM 3.4 MMOL/L (3.6-5.0); SODIUM 140 MMOL/L (135-145)
[2022-04-02 17:44] LABS: CALCIUM 9.7 MG/DL (8.5-10.1)
[2022-04-02 17:45] LABS: GLUCOSE 71 MG/DL (70-105)
[2022-04-02] MEDS ORDERED: HOLD METFORMIN - RECEIVED CONTRAST 20 ML VIAL IV SCH (17:45)
[2022-04-02] MEDS ORDERED: IOHEXOL 350 MG/ML 100 ML (OMNIPAQUE 350) VIAL IV ONE (17:45)
[2022-04-02] MEDS ORDERED: NS 100 ML (IVPB) BAG IV ONE (17:45)
[2022-04-02 17:46] LABS: CARBON DIOXIDE 25 MMOL/L (21-32)
[2022-04-02 17:47] LABS: BILIRUBIN,TOTAL 0.5 MG/DL (0.1-1.0)
[2022-04-02 17:48] LABS: ALKALINE PHOSPHATASE 79 U/L (40-136); CREATININE SERUM 1.04 MG/DL (0.60-1.30); GFR ESTIMATED 72
[2022-04-02 17:50] LABS: BUN/CREATININE RATIO 10
[2022-04-02 17:51] LABS: ALANINE AMINOTRANSFERASE 20 U/L (0-55)
[2022-04-02 17:52] LABS: LIPASE 36 U/L (8-78)
[2022-04-02 17:55] LABS: BACTERIA,URINE MODERATE /HPF
--- NOTE | 2022-04-02 18:07 | Diagnostic Imaging Report ---
PROCEDURE: CT abdomen and pelvis with contrast, rule out appendicitis. TECHNIQUE: Multiple contiguous axial images were obtained through the abdomen and pelvis after the administration of intravenous contrast. All CT scans use one or more of the following dose optimizing techniques: automated exposure control, MA and/or KvP adjustment based on patient size and exam type or iterative reconstruction. INDICATION: Right lower quadrant pain as well as nausea. COMPARISON is made with prior CT from 12/07/2021. The lung bases are clear. There is a small pericardial effusion present. No discrete liver mass is detected. The gallbladder is surgically absent. No biliary ductal dilatation is seen. The pancreas and spleen are unremarkable. No adrenal mass is detected. The kidneys are without evidence of hydronephrosis. Aorta is nonaneurysmal. There are some fluid-filled small bowel loops in the left abdomen, perhaps owing to enteritis. No definite bowel obstruction is seen. The appendix is not visualized but no inflammatory changes in the right lower quadrant are identified. No free fluid or fluid collection is seen. The bladder is unremarkable. The uterus appears surgically absent. IMPRESSION: 1. No definite CT evidence of acute appendicitis. 2. Nonspecific fluid-filled small bowel loops, left abdomen, perhaps on the basis of enteritis. No other significant abnormality is seen. Dictated by: Dictated on workstation # [id number]
[2022-04-02] MEDS ORDERED: ACHD5005 PO (18:55)
[2022-04-02] MEDS ORDERED: ONDA4TAB11 PO (18:55)
[2022-04-02 19:29] VITALS: BP 155/93
[2022-04-02] MEDS ORDERED: CEPH500T PO (22:11)
== END 2022-04-02 19:29 | disposition home or self-care (01) ==
LOC: EDUNIT# 16:33 → ER 16:36
DX: R10.33 Periumbilical pain (principal); R11.2 Nausea with vomiting, unspecified; K21.9 Gastro-esophageal reflux disease without esophagitis; K22.70 Barrett's esophagus without dysplasia; E66.9 Obesity, unspecified; Z90.49 Acquired absence of other specified parts of digestive tract; Z68.36 Body mass index [BMI] 36.0-36.9, adult; Z28.310 Unvaccinated for COVID-19
CPT/HCPCS: 36415; 74177; 80053; 81000; 83690; 84703; 85025; 87088

== ENCOUNTER 2022-11-15 12:42 | Outpatient (CLI) | payer MEDICAID ==
[~2022-11-15] VITALS: Ht 172.7 cm; Wt 106.2 kg
[~2022-11-15 12:42] MED LIST changes: +CEPH500T PO; +MONT-47 PO; -MONT10TA21 PO
[2022-11-19] MEDS ORDERED: LEVO50TA6 PO (12:55)
[2022-11-19] MEDS ORDERED: CHOL500049 PO (12:57)
== END 2022-11-19 13:02 | disposition home or self-care (01) ==
LOC: PREOP 12:42
PROVIDERS: ATTEND Surgery
DX: Z01.818 Encounter for other preprocedural examination (principal); K29.50 Unspecified chronic gastritis without bleeding

== ENCOUNTER 2022-11-25 10:03 | Day surgery (SDC) | payer MEDICAID ==
[~2022-11-25] VITALS: Ht 172.7 cm; Wt 106.2 kg
[~2022-11-25 10:03] MED LIST changes: +CHOL500049 PO; +LEVO50TA6 PO
[2022-11-25] MEDS ORDERED: LACTATED RINGERS 1,000 ML IV STA (10:04)
[2022-11-25] MEDS ORDERED: HURRICAINE EXT TUBE (BENZOCAINE) XX PRN (10:15)
[2022-11-25 10:45] VITALS: BP 127/87
--- NOTE | 2022-11-25 11:25 | Progress Note-Pre Operative ---
Pre-Operative Progress Note Date of Available H&P: Nov 14, 2022 Date H&P Reviewed: Nov 25, 2022 Time H&P Reviewed: 11:23 History & Physical: H&P Reviewed, Patient Examed, No changes noted Pre-Operative Diagnosis: Chronic Gastritis, Esophageal dysphagia NIMESH CARRASCO DO Nov 25, 2022 11:25
[2022-11-25] MEDS ORDERED: ONDANSETRON 4 MG/2 ML (SDV) Z0FRAN ONE (11:43)
[2022-11-25] MEDS ORDERED: PROPOFOL INJECTION 50 ML IV ONE (11:43)
[2022-11-25] MEDS ORDERED: MIDAZOLAM 2 MG/2 ML (VERSED) VIAL ONE (11:43)
[2022-11-25 12:00] VITALS: BP 112/69
--- NOTE | 2022-11-25 12:03 | Progress Note-Post Operative ---
Post-Operative Progess Note Surgeon (s)/Rope Tow Operator (s) Surgeon NIMESH CARRASCO DO Rope Tow Operator: none Pre-Operative Diagnosis Chronic Gastritis, Esophageal dysphagia Post-Operative Diagnosis Gastritis Hiatal hernia Procedure & Operative Findings Date of Procedure 11/25/22 Procedure Performed/Findings EGD with biopsy PROCEDURE NOTE: After informed consent was obtained, the patient was brought to the endoscopy suite, placed in bed in left lateral decubitus position. She was administered IV sedation by the LAG SCREWER who then monitored vitals the entire time, heart rate, blood pressure and pulse ox and the scope was inserted down the mouth through the esophagus into the stomach. On the way down, did not see any obstruction, took a picture, pushed into the stomach and pushed past the antrum into the duodenum. Duodenum looked good. Pulled back, noted some gastritis and did a biopsy of the antrum, then retroflexed the scope and saw a small hiatal hernia. I took a picture of this and then pulled the scope into the GE junction and then did a biopsy of the GE junction. Pushed the scope back into the stomach, suctioned all the air out of the stomach. At this point pulled the scope up the esophagus, taking pictures (again no obstruction or narrowing) and pulled the scope out of the mouth. There was a little bit of retained food in the stomach. The patient tolerated the procedure, and she recovered in endoscopy suite. Anesthesia Type IV sedation by LAG SCREWER Estimated Blood Loss Estimated blood loss (mL): scant Specimens/Packing Specimens Removed antral bx GE jxn bx NIMESH CARRASCO DO Nov 25, 2022 12:03
--- NOTE | 2022-11-25 12:03 | Endoscopy Discharge Instruct ---
Endo Procedure/Findings Findings 1.: Gastritis 2.: Hiatal Hernia Discharge Instructions - Activity: You might feel a little sleepy until tomorrow. This is due to the medicine you received to relax you. Until tomorrow, you should: NOT drive a car, operate machinery or power tools. NOT drink any alcoholic beverages. NOT make any important decisions or sign importortant papers. Do not return to work until tomorrow, unless otherwise instructed. Resume previous activities tomorrow. Diet: Start by taking liquids. If you tolerate liquids, advance to solid food. 1.: EGD in 3 years Notify Physician - If you experience excessive bleeding, unusual abdominal pain, fever, or chest pain, contact your doctor immediately. Follow-Up: Other Follow up in my office in one week NIMESH CARRASCO DO Nov 25, 2022 12:03
[2022-11-25 12:05] VITALS: BP 127/63
[2022-11-25 12:10] VITALS: BP 130/86
[2022-11-25 12:40] VITALS: BP 130/86
--- NOTE | 2022-11-25 13:18 | Anesthesia-General Post-Op ---
MAC Patient Condition Mental Status/LOC: Same as Preop Cardiovascular: Satisfactory Nausea/Vomiting: Absent Respiratory: Satisfactory Pain: Controlled Complications: Absent Post Op Complications Complications None Follow Up Care/Instructions Patient Instructions None needed. Anesthesiology Discharge Order Discharge Order Patient is doing well, no complaints, stable vital signs, no apparent adverse anesthesia problems. No complications reported per nursing. GABBI BARR CRNA Nov 25, 2022 13:18
== END 2022-11-25 13:17 | disposition home or self-care (01) ==
LOC: ENDO 10:03
PROVIDERS: ATTEND Surgery
DX: K29.50 Unspecified chronic gastritis without bleeding (principal); K44.9 Diaphragmatic hernia without obstruction or gangrene; K31.89 Other diseases of stomach and duodenum; K21.00 Gastro-esophageal reflux disease with esophagitis, without bleeding; E66.9 Obesity, unspecified; F17.210 Nicotine dependence, cigarettes, uncomplicated; Z68.35 Body mass index [BMI] 35.0-35.9, adult; Z28.310 Unvaccinated for COVID-19